=== PATIENT | female | born 1965 | race Caucasian/White ===

== ENCOUNTER → 2017-12-18 15:40 | Outpatient (CLI) | payer MEDICARE, BC, SELFPAY ==
[2017-12-18 18:16] LABS: Absolute Lymphocyte Count 2.47 X10^3/ul (0.83-4.51); Absolute Neutrophil Count 4.8 X10^3/uL (2.0-7.7); Basophil# 0.02 X10^3/uL; Basophil% 0.2 % (0-1); Eosinophil# 0.16 X10^3/uL; Hematocrit 36.3 % (37-47); Hemoglobin 11.8 g/dl (12.0-15.0); Lymphocyte # 2.47 X10^3/ul (4.0); Lymphocyte % 30.7 % (19-41); Mean Corp Hgb Conc 32.5 g/gl (32-36); Mean Corpuscular Hgb 29.1 pg (27.0-32.0); Mean Corpuscular Volume 89.4 fL (81-99); Mean Platelet Vol. 10.1 fl (6.2-12.0); Monocyte# 0.63 X10^3/uL; Monocyte% 7.8 % (0-10); Neutrophil # 4.76 X10^3/uL (2.7-7.7); Neutrophil % 59.2 % (47-70); Platelet Count 267 K/mm3 (150-450); RBC Distribution Width CV 12.6 % (11.6-14.6); RBC Distribution Width SD 40.6 fl (35.1-43.9); Red Blood Count 4.06 M/mm3 (4.2-5.4); White Blood Count 8.1 K/mm3 (4.4-11.0)
[2017-12-18 18:18] LABS: POSITIVE COUNT NO; POSITIVE DIFFERENTIAL NO; POSITIVE MORPHOLOGY NO
[2017-12-18 18:26] LABS: ALB/GLOB Ratio 0.9 RATIO (0.9-2.4); AST(SGOT) 11 U/L (15-37); Alanine Aminotransfer ALT/SGPT 20 U/L (13-56); Albumin, Serum 3.6 g/dL (3.2-5.0); Alkaline Phosphatase 97 U/L (45-117); Anion Gap 7 (5-15); BUN 12 mg/dL (7-18); BUN/Creat Ratio 14.9 RATIO (10-20); Chloride 101 mmol/L (98-107); EST Glomerular Filtration Rate 80 mL/min (>60); Est Glom Filt Rate - Afr Amer 96 mL/min (>60); Glucose 74 mg/dL (74-106); Potassium 4.1 mmol/L (3.5-5.1); Protein, Total 7.6 g/dL (6.4-8.2); Sodium Level 138 mmol/L (136-145)
== END ==
PROVIDERS: Family Provider Family Medicine; PCP Family Medicine; Visit Provider Internal Medicine Rheumatology
DX: M06.4 Inflammatory polyarthropathy (principal); M35.1 Other overlap syndromes; M79.7 Fibromyalgia; K58.9 Irritable bowel syndrome, unspecified; G62.9 Polyneuropathy, unspecified; G47.33 Obstructive sleep apnea (adult) (pediatric); F32.89 Other specified depressive episodes; F41.9 Anxiety disorder, unspecified; Z79.899 Other long term (current) drug therapy
CPT/HCPCS: 36415; 80053; 85025

== ENCOUNTER → 2018-02-05 11:55 | Outpatient (CLI) | payer MEDICARE, BC, SELFPAY ==
[2018-02-05 14:16] LABS: Absolute Lymphocyte Count 2.19 X10^3/ul (0.83-4.51); Absolute Neutrophil Count 3.9 X10^3/uL (2.0-7.7); Basophil# 0.01 X10^3/uL; Basophil% 0.1 % (0-1); Eosinophil# 0.18 X10^3/uL; Eosinophils% 2.7 % (0-5); Hematocrit 36.2 % (37-47); Lymphocyte # 2.19 X10^3/ul (4.0); Lymphocyte % 32.4 % (19-41); Mean Corp Hgb Conc 33.1 g/gl (32-36); Mean Corpuscular Hgb 29.8 pg (27.0-32.0); Mean Corpuscular Volume 89.8 fL (81-99); Monocyte# 0.43 X10^3/uL; Monocyte% 6.4 % (0-10); Neutrophil # 3.93 X10^3/uL (2.7-7.7); Neutrophil % 58.3 % (47-70); Platelet Count 315 K/mm3 (150-450); RBC Distribution Width CV 13.7 % (11.6-14.6); RBC Distribution Width SD 44.1 fl (35.1-43.9); Red Blood Count 4.03 M/mm3 (4.2-5.4); White Blood Count 6.8 K/mm3 (4.4-11.0)
[2018-02-05 14:19] LABS: POSITIVE COUNT NO; POSITIVE DIFFERENTIAL NO; POSITIVE MORPHOLOGY NO
[2018-02-05 14:25] LABS: ALB/GLOB Ratio 0.9 RATIO (0.9-2.4); AST(SGOT) 15 U/L (15-37); Alanine Aminotransfer ALT/SGPT 20 U/L (13-56); Albumin, Serum 3.5 g/dL (3.2-5.0); Alkaline Phosphatase 89 U/L (45-117); Anion Gap 8 (5-15); BUN 10 mg/dL (7-18); BUN/Creat Ratio 13.2 RATIO (10-20); Calcium,Total 8.7 mg/dL (8.5-10.1); Chloride 107 mmol/L (98-107); Creatinine, Serum 0.76 mg/dL (0.55-1.02); EST Glomerular Filtration Rate 85 mL/min (>60); Est Glom Filt Rate - Afr Amer 103 mL/min (>60); Globulin 3.7 g/dL (2.2-4.2); Glucose 105 mg/dL (74-106); Potassium 3.7 mmol/L (3.5-5.1); Protein, Total 7.2 g/dL (6.4-8.2); Sodium Level 141 mmol/L (136-145)
[2018-02-05 14:28] LABS: Vitamin D,25 Hydroxy 43.8 ng/mL (29.95-100.01)
== END ==
PROVIDERS: Family Provider Family Medicine; PCP Family Medicine; Visit Provider Internal Medicine Rheumatology
DX: M06.4 Inflammatory polyarthropathy (principal); M35.1 Other overlap syndromes; M79.7 Fibromyalgia; E55.9 Vitamin D deficiency, unspecified; K58.9 Irritable bowel syndrome, unspecified; G62.9 Polyneuropathy, unspecified; G47.33 Obstructive sleep apnea (adult) (pediatric); F32.89 Other specified depressive episodes; F41.9 Anxiety disorder, unspecified; Z79.899 Other long term (current) drug therapy
CPT/HCPCS: 36415; 80053; 82306; 85025

== ENCOUNTER → 2018-05-01 11:11 | Outpatient (CLI) | payer MEDICARE, BC, SELFPAY ==
[2018-05-01 12:25] LABS: Absolute Lymphocyte Count 1.83 X10^3/ul (0.83-4.51); Absolute Neutrophil Count 4.6 X10^3/uL (2.0-7.7); Basophil# 0.02 X10^3/uL; Basophil% 0.3 % (0-1); Eosinophil# 0.13 X10^3/uL; Eosinophils% 1.9 % (0-5); Hematocrit 36.6 % (37-47); Hemoglobin 11.9 g/dl (12.0-15.0); Lymphocyte # 1.83 X10^3/ul (4.0); Lymphocyte % 26.1 % (19-41); Mean Corp Hgb Conc 32.5 g/gl (32-36); Mean Corpuscular Hgb 29.8 pg (27.0-32.0); Mean Corpuscular Volume 91.7 fL (81-99); Mean Platelet Vol. 9.5 fl (6.2-12.0); Monocyte# 0.37 X10^3/uL; Monocyte% 5.3 % (0-10); Neutrophil # 4.64 X10^3/uL (2.7-7.7); Neutrophil % 66.3 % (47-70); Platelet Count 274 K/mm3 (150-450); RBC Distribution Width CV 13.1 % (11.6-14.6); Red Blood Count 3.99 M/mm3 (4.2-5.4)
[2018-05-01 12:26] LABS: POSITIVE COUNT NO; POSITIVE DIFFERENTIAL NO; POSITIVE MORPHOLOGY NO
[2018-05-01 12:41] LABS: ALB/GLOB Ratio 0.9 RATIO (0.9-2.4); AST(SGOT) 13 U/L (15-37); Alanine Aminotransfer ALT/SGPT 20 U/L (13-56); Albumin, Serum 3.5 g/dL (3.2-5.0); Alkaline Phosphatase 87 U/L (45-117); Anion Gap 5 (5-15); BUN 10 mg/dL (7-18); BUN/Creat Ratio 12.7 RATIO (10-20); Calcium,Total 8.9 mg/dL (8.5-10.1); Chloride 107 mmol/L (98-107); Creatinine, Serum 0.79 mg/dL (0.55-1.02); EST Glomerular Filtration Rate 82 mL/min (>60); Est Glom Filt Rate - Afr Amer 99 mL/min (>60); Globulin 3.7 g/dL (2.2-4.2); Glucose 120 mg/dL (74-106); Potassium 3.8 mmol/L (3.5-5.1); Protein, Total 7.2 g/dL (6.4-8.2); Sodium Level 138 mmol/L (136-145)
== END ==
PROVIDERS: Family Provider Family Medicine; PCP Family Medicine; Visit Provider Internal Medicine Rheumatology
DX: M06.4 Inflammatory polyarthropathy (principal); M35.1 Other overlap syndromes; M79.7 Fibromyalgia; K58.9 Irritable bowel syndrome, unspecified; G62.9 Polyneuropathy, unspecified; G47.33 Obstructive sleep apnea (adult) (pediatric); F41.9 Anxiety disorder, unspecified; F32.89 Other specified depressive episodes; Z79.899 Other long term (current) drug therapy
CPT/HCPCS: 36415; 80053; 85025

== ENCOUNTER → 2018-07-23 12:47 | Outpatient (CLI) | payer MEDICARE, BC, SELFPAY ==
[2018-07-23 14:02] LABS: Absolute Lymphocyte Count 2.64 X10^3/ul (0.83-4.51); Absolute Neutrophil Count 4.7 X10^3/uL (2.0-7.7); Basophil# 0.03 X10^3/uL; Basophil% 0.4 % (0-1); Eosinophil# 0.12 X10^3/uL; Eosinophils% 1.5 % (0-5); Hematocrit 35.9 % (37-47); Hemoglobin 11.6 g/dl (12.0-15.0); Lymphocyte # 2.64 X10^3/ul (4.0); Mean Corp Hgb Conc 32.3 g/gl (32-36); Mean Corpuscular Hgb 29.7 pg (27.0-32.0); Mean Corpuscular Volume 92.1 fL (81-99); Mean Platelet Vol. 9.6 fl (6.2-12.0); Monocyte# 0.47 X10^3/uL; Monocyte% 5.9 % (0-10); Neutrophil # 4.73 X10^3/uL (2.7-7.7); Neutrophil % 59.1 % (47-70); Platelet Count 265 K/mm3 (150-450); RBC Distribution Width CV 12.9 % (11.6-14.6); RBC Distribution Width SD 42.7 fl (35.1-43.9)
[2018-07-23 14:07] LABS: POSITIVE COUNT NO; POSITIVE DIFFERENTIAL NO; POSITIVE MORPHOLOGY NO
[2018-07-23 14:21] LABS: ALB/GLOB Ratio 0.9 RATIO (0.9-2.4); AST(SGOT) 10 U/L (15-37); Alanine Aminotransfer ALT/SGPT 18 U/L (13-56); Albumin, Serum 3.5 g/dL (3.2-5.0); Alkaline Phosphatase 91 U/L (45-117); Anion Gap 9 (5-15); BUN 12 mg/dL (7-18); BUN/Creat Ratio 15.7 RATIO (10-20); Calcium,Total 8.9 mg/dL (8.5-10.1); Chloride 104 mmol/L (98-107); Creatinine, Serum 0.76 mg/dL (0.55-1.02); EST Glomerular Filtration Rate 84 mL/min (>60); Est Glom Filt Rate - Afr Amer 102 mL/min (>60); Globulin 3.7 g/dL (2.2-4.2); Glucose 100 mg/dL (74-106); Potassium 3.8 mmol/L (3.5-5.1); Protein, Total 7.2 g/dL (6.4-8.2); Sodium Level 139 mmol/L (136-145)
== END ==
PROVIDERS: Family Provider Family Medicine; PCP Family Medicine; Referring Provider Internal Medicine Rheumatology; Visit Provider Internal Medicine Rheumatology
DX: M06.4 Inflammatory polyarthropathy (principal); M35.1 Other overlap syndromes; M79.7 Fibromyalgia; Z79.899 Other long term (current) drug therapy
CPT/HCPCS: 36415; 80053; 85025

== ENCOUNTER → 2019-11-06 | Outpatient (CLI) | payer MEDICARE, SELFPAY ==
[2019-11-06 18:11] LABS: Pathologist Comment May follow
[2019-11-06 19:22] LABS: Synovial Fld Mononuclear WBC % 90.8 %; Synovial Fld Polynuclear WBC # 0.026 10^3/uL; Synovial Fld Polynuclear WBC % 9.2 %
[2019-11-06 21:07] LABS: AUTO B FLUID DILUENT BKGD CT WBC <0.1 RBC <0.01 (W<.1,R<.01); Appearance /Synovial Fluid Sl hazy (CLEAR); Color / Synovial Fluid Yellow (Pale Yellow); Lymph 19 %; Monocyte /Synovial Fluid 24 %; Neutrophil 14 % (0-25); Other Cell /Synovial Fluid 43 %; Source / Synovial Fluid RIGHT KNEE; Source- Body Fluid SYNOVIAL
[2019-11-06 21:08] LABS: Body Fluid QC Type(s) BF2Q,BF3Q; RBC /Synovial Fluid 30 /mm3 (0); Synovial Fld Mononuclear WBC # 0.258 10^3/ul
[2019-11-07 13:04] LABS: Pathologist Review Reviewed
== END | disposition home or self-care (01) ==
PROVIDERS: PCP Family Medicine; Referring Provider Internal Medicine Rheumatology; Visit Provider Internal Medicine Rheumatology
DX: M06.4 Inflammatory polyarthropathy (principal); Z79.899 Other long term (current) drug therapy; M35.1 Other overlap syndromes; M79.7 Fibromyalgia; M17.0 Bilateral primary osteoarthritis of knee; K58.9 Irritable bowel syndrome, unspecified; F41.9 Anxiety disorder, unspecified; F32.89 Other specified depressive episodes; G47.33 Obstructive sleep apnea (adult) (pediatric); G62.9 Polyneuropathy, unspecified
CPT/HCPCS: 87070; 87075; 87205; 89050; 89051; 89060

== ENCOUNTER → 2019-12-06 13:22 | Outpatient (CLI) | payer MEDICARE, BC, SELFPAY ==
[2019-12-06 15:25] LABS: Color, Urine Yellow (Yellow); Glucose, Dipstick Normal (Normal); Ketone-Dipstick Negative (Negative); Leukocyte Esterase-Dipstick Negative /ul (Negative); Nitrite-Dipstick Negative (Negative); Occult Blood-Urine Negative /ul (Negative); Protein-Dipstick Negative (Negative); Urine Bilirubin Dipstick Negative (Negative); Urine Clarity Clear (Clear); Urine Urobilinogen Normal (Normal)
[2019-12-06 15:30] LABS: Absolute Lymphocyte Count 2.97 X10^3/uL (0.83-4.51); Absolute Neutrophil Count 5.1 X10^3/uL (2.0-7.7); Basophil# 0.03 X10^3/uL; Basophil% 0.3 % (0-1); Eosinophil# 0.17 X10^3/uL; Eosinophils% 1.9 % (0-5); Hematocrit 39.9 % (37-47); Hemoglobin 12.5 g/dL (12.0-15.0); Lymphocyte # 2.97 X10^3/ul (4.0); Lymphocyte % 34.1 % (19-41); Mean Corp Hgb Conc 31.3 g/dL (32-36); Mean Corpuscular Volume 89.5 fL (81-99); Mean Platelet Vol. 9.4 fl (6.2-12.0); Monocyte# 0.46 X10^3/uL; Monocyte% 5.3 % (0-10); NRBC Flagged by Analyzer 0 % (0-5); Neutrophil # 5.07 X10^3/uL (2.7-7.7); Neutrophil % 58.2 % (47-70); Platelet Count 324 K/mm3 (150-450); RBC Distribution Width SD 42.8 fl (35.1-43.9); Red Blood Count 4.46 M/mm3 (4.2-5.4); White Blood Count 8.7 K/mm3 (4.4-11.0)
[2019-12-06 15:41] LABS: Erythrocyte Sedimentation Rate 14 mm/hr (0-30)
[2019-12-06 15:44] LABS: Protein:Creat Ratio 111 mg/g CRE (0-200)
[2019-12-06 16:01] LABS: AST(SGOT) 13 U/L (15-37); Alanine Aminotransfer ALT/SGPT 20 U/L (13-56); Albumin, Serum 3.8 g/dL (3.2-5.0); Alkaline Phosphatase 109 U/L (45-117); Anion Gap 10 (5-15); BUN 7 mg/dL (7-18); BUN/Creat Ratio 9.5 RATIO (10-20); CRP 7.37 mg/L (0.0-3.0); Calcium,Total 9.2 mg/dL (8.5-10.1); Chloride 101 mmol/L (98-107); Creatinine, Serum 0.74 mg/dL (0.55-1.02); EST Glomerular Filtration Rate 87 mL/min (>60); Est Glom Filt Rate - Afr Amer 106 mL/min (>60); Glucose 98 mg/dL (74-106); Potassium 3.6 mmol/L (3.5-5.1); Protein, Total 7.8 g/dL (6.4-8.2); Sodium Level 139 mmol/L (136-145)
[2019-12-09 13:25] LABS: Complement C3 158 mg/dL (82-167)
== END ==
PROVIDERS: PCP Family Medicine; Referring Provider Internal Medicine Rheumatology; Visit Provider Internal Medicine Rheumatology
DX: M06.4 Inflammatory polyarthropathy (principal); M35.1 Other overlap syndromes; M79.7 Fibromyalgia; M17.0 Bilateral primary osteoarthritis of knee; K58.9 Irritable bowel syndrome, unspecified; F41.9 Anxiety disorder, unspecified; F32.89 Other specified depressive episodes; G47.33 Obstructive sleep apnea (adult) (pediatric); G62.9 Polyneuropathy, unspecified; Z79.899 Other long term (current) drug therapy
CPT/HCPCS: 36415; 80053; 81002; 82570; 84156; 85025; 85652; 86140; 86160

== ENCOUNTER → 2020-04-06 15:02 | Outpatient (CLI) | payer MEDICARE, BC, SELFPAY ==
[2020-04-06 18:00] LABS: ALB/GLOB Ratio 0.9 RATIO (0.9-2.4); AST(SGOT) 15 U/L (15-37); Alanine Aminotransfer ALT/SGPT 23 U/L (13-56); Albumin, Serum 3.5 g/dL (3.2-5.0); Alkaline Phosphatase 101 U/L (45-117); Anion Gap 6 (5-15); BUN 9 mg/dL (7-18); BUN/Creat Ratio 13.2 RATIO (10-20); Calcium,Total 8.8 mg/dL (8.5-10.1); Chloride 104 mmol/L (98-107); Creatinine, Serum 0.68 mg/dL (0.55-1.02); EST Glomerular Filtration Rate 96 mL/min (>60); Est Glom Filt Rate - Afr Amer 116 mL/min (>60); Glucose 100 mg/dL (74-106); Potassium 3.7 mmol/L (3.5-5.1); Protein, Total 7.5 g/dL (6.4-8.2); Sodium Level 138 mmol/L (136-145)
[2020-04-06 18:14] LABS: Absolute Lymphocyte Count 2.69 X10^3/uL (0.83-4.51); Absolute Neutrophil Count 5.3 X10^3/uL (2.0-7.7); Basophil# 0.05 X10^3/uL; Basophil% 0.6 % (0-1); Eosinophil# 0.37 X10^3/uL; Eosinophils% 4.1 % (0-5); Hematocrit 38.7 % (37-47); Hemoglobin 12.3 g/dL (12.0-15.0); Lymphocyte # 2.69 X10^3/ul (4.0); Lymphocyte % 29.7 % (19-41); Mean Corp Hgb Conc 31.8 g/dL (32-36); Mean Corpuscular Hgb 28.8 pg (27.0-32.0); Mean Corpuscular Volume 90.6 fL (81-99); Monocyte# 0.63 X10^3/uL; NRBC Flagged by Analyzer 0 % (0-5); Neutrophil # 5.28 X10^3/uL (2.7-7.7); Neutrophil % 58.2 % (47-70); Platelet Count 332 K/mm3 (150-450); RBC Distribution Width CV 12.5 % (11.6-14.6); RBC Distribution Width SD 41.7 fl (35.1-43.9); Red Blood Count 4.27 M/mm3 (4.2-5.4); White Blood Count 9.1 K/mm3 (4.4-11.0)
== END ==
PROVIDERS: PCP Family Medicine; Referring Provider Internal Medicine Rheumatology; Visit Provider Internal Medicine Rheumatology
DX: M06.4 Inflammatory polyarthropathy (principal); M35.1 Other overlap syndromes; M79.7 Fibromyalgia; M17.0 Bilateral primary osteoarthritis of knee; K58.9 Irritable bowel syndrome, unspecified; F41.9 Anxiety disorder, unspecified; F32.89 Other specified depressive episodes; G47.33 Obstructive sleep apnea (adult) (pediatric); G62.9 Polyneuropathy, unspecified
CPT/HCPCS: 36415; 80053; 85025

== ENCOUNTER 2020-04-29 13:00 | Outpatient (RCR) | payer MEDICARE, BC, SELFPAY ==
[2020-04-15 13:26] VITALS: BP 117/82; PULSE 96; RESP 16; TEMP 36.2; BMI 39.5
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
[2020-05-06 11:24] VITALS: BP 146/80; PULSE 104; RESP 16; TEMP 36.5; BMI 39.5
--- NOTE | 2020-05-06 14:11 | PCM.WC.PN ---
(1) Lupus (systemic lupus erythematosus) Status: Acute Code(s): M32.9 - Systemic lupus erythematosus, unspecified (2) Ulcer of left foot with fat layer exposed Status: Acute Code(s): L97.522 - Non-pressure chronic ulcer of other part of left foot with fat layer exposed (3) Calcaneal gait Status: Acute Code(s): R26.89 - Other abnormalities of gait and mobility (4) Delayed wound healing Status: Acute Code(s): T14.8XXD - Other injury of unspecified body region, subsequent encounter (5) Malnutrition Status: Acute Code(s): E46 - Unspecified protein-calorie malnutrition (6) Pressure ulcer of unspecified heel, stage 2 Status: Chronic Qualifiers: Laterality: left Qualified Code(s): L89.622 - Pressure ulcer of left heel, stage 2 Code(s): L89.602 - Pressure ulcer of unspecified heel, stage 2 Type of Wound Date of Service: 05/06/20 Chief Complaint: Left heel ulcer. Left third toe ulcer History of Wound: This pleasant 54-year-old female with significant past medical history of lupus, history of panic attack, depression, history of delayed healing, hyperlipidemia, irritable bowel syndrome, memory loss, restless leg syndrome, and obstructive sleep apnea presents for consultation at the wound healing center for a left chronic heel ulcer and third toe ulcer as well that is newer in nature. The onset of the heel ulcer was late November 2019. The onset of her left third toe ulcer was early March 2020. She denies odor, redness, streaking or known infection, fever, chill, nausea, vomiting. She missed last week due to a new cough. She was seen by her primary care physician who confirmed this is likely allergy related like she has been getting every year for many years. She was ready to proceed forward with application of advanced skin substitute today, epi-fix. She tries to keep pressure off of her heel by wearing a boot but primarily uses a knee roller. Her bedroom is upstairs and she needs to acsend and descend 10 stairs. Progress of Wound: Healed toe ulcer. Stable heel ulcer - Physical Exam Vital Signs Temp Pulse Resp BP 97.7 F L 104 H 16 146/80 H 05/06/20 11:24 05/06/20 11:24 05/06/20 11:24 05/06/20 11:24 General: Alert, Oriented x3, Cooperative, No apparent distress HEENT: Atraumatic Extremities: No cyanosis, Capillary Refill Less than 3 Seconds, No Calf Tenderness, Diminished Peripheral Pulses, Edema - Mild Skin: Ulcer/ Wound - No purulence, erythema, streaking, odor, infection. Her skin is atrophic and hairless Wound Measurements and Assessment WC - Nurse 1 - General Ulcer Measurement Start: 04/15/20 13:17 Freq: Status: Active Protocol: Activity Type Activity Date Activity User E-Sign Co-Sign Detail Recorded Client Recorded Date Recorded By Document 05/06/20 11:24 [facility] [id number] 05/06/20 11:29 [facility] 05/06/20 11:24 Wound Center Nurse 1 [Ulcer Assessment] #2 Left 3rd Toe- Plantar -Combined with other wound No -Current Size (cm) - Length 0.1 -Current Size (cm) - Width 0.1 -Current Size (cm) - Depth 0.1 -Total Square Cm 0.01 -Photo Taken No -Epithelialization Large 67-100% -Slough/Fibrin Yes -Necrosis Amt Small (1-33%) -Necrotic Tissue Type Eschar -Texture (Cecelia-wound Skin Appearance) Assessed -Moisture (Cecelia-wound Skin Appearance Assessed ) -Color (Cecelia-wound Skin Appearance) Assessed -Temperature (Cecelia-wound Skin No Abnormality Appearance) (Pt Warm) -Tenderness on Palpation (Cecelia-wound No Skin Appearance) -Ulcer Cleansing Rinsed/ Irrigated with Saline -Foul Odor after Cleansing No -Anesthetic Used 5% Lidocaine Gel #1 Left Heel- Plantar -Combined with other wound No -Current Size (cm) - Length 1.2 -Current Size (cm) - Width 1.4 -Current Size (cm) - Depth 0.4 -Total Square Cm 1.68 -Photo Taken No -Epithelialization None Present -Tunneling No -Undermining/Tunneling No -Circular Undermining No -Exudate Amt Small -Exudate Type Serosanguineous -Wound Margin Thickened -Granulation Amt Small (1-33%) -Granulation Quality Red -Slough/Fibrin Yes -Necrosis Amt Large (67-100%) -Necrotic Tissue Type Adherent Slough -Texture (Cecelia-wound Skin Appearance) Assessed, Scarring -Moisture (Cecelia-wound Skin Appearance Assessed ) -Color (Cecelia-wound Skin Appearance) Assessed -Temperature (Cecelia-wound Skin No Abnormality Appearance) (Pt Warm) -Tenderness on Palpation (Cecelia-wound Yes Skin Appearance) -Ulcer Cleansing Rinsed/ Irrigated with Saline -Foul Odor after Cleansing No -Anesthetic Used 5% Lidocaine Gel WC - Nurse 2 - General Ulcer CM Notes Start: 04/15/20 13:17 Freq: Status: Active Protocol: Activity Type Activity Date Activity User E-Sign Co-Sign Detail Recorded Client Recorded Date Recorded By Document 05/06/20 12:11 STEPHANIE [id number] 05/06/20 12:16 STEPHANIE 05/06/20 12:11 Wound Center Nurse 2 [Procedure/Treatment] #2 Left 3rd Toe- Plantar -Correct Patient No -Correct Side, Site, Position No -Correct Procedure No -Procedure Performed No -Post Debridement Size (cm) - Length 0 -Post Debridement Size (cm) - Width 0 -Post Debridement Size (cm) - Depth 0 -Total Square (cm) 0 -Wound/Ulcer Outcome Healed- Epithelialized #1 Left Heel- Plantar -Time 12:14 -Correct Patient Yes -Correct Side, Site, Position Yes -Correct Procedure Yes -Procedure Performed Yes -Type of Procedure Debridement -Clinical Debridement Subcutaneous -Post Debridement Size (cm) - Length 1.2 -Post Debridement Size (cm) - Width 1.5 -Post Debridement Size (cm) - Depth 0.4 -Total Square (cm) 1.80 -Wound/Ulcer Outcome Not Healed -Ulcer Cleansing Rinsed/ Irrigated with Saline -Foul Odor after Cleansing No -Bioengineered Tissue Yes -Type of bioengineered Tissue EPIFIX -Expiration Date 01/07/25 -Product Lot Number [id number] -Percent Used 100 -Saline Lot Number [id number] -Bleeding Controlled with Pressure -Offloading Yes -Type of Offloading Knee Walker -Treatment Response Procedure Tolerated Well [See Physician Procedure note for Specifics] Pain Scale: 0-10 Numeric [Pain] -Is Patient Pain Free? Yes Musculoskeletal: No Tenderness to Palpation of Joints or Extremities, Muscle Wasting Neurological: Sensory exam intact to light touch and pain Psych/Mental Status: Normal Affect, Appropriate Debridement Note Post-Debridement Measurements/Treatment WC - Nurse 2 - General Ulcer CM Notes Start: 04/15/20 13:17 Freq: Status: Active Protocol: Activity Type Activity Date Activity User E-Sign Co-Sign Detail Recorded Client Recorded Date Recorded By Document 04/15/20 14:41 [id number] 04/15/20 14:49 Document 05/06/20 12:11 [id number] 05/06/20 12:16 04/15/20 05/06/20 14:41 12:11 Wound Center Nurse 2 #2 Left 3rd Toe- Plantar -Time 14:41 -Correct Patient Yes No -Correct Side, Site, Position Yes No -Correct Procedure Yes No -Procedure Performed Yes No -Type of Procedure Debridement -Clinical Debridement Subcutaneous -Post Debridement Size (cm) - Length 0.7 0 -Post Debridement Size (cm) - Width 0.5 0 -Post Debridement Size (cm) - Depth 0.1 0 -Total Square (cm) 0.35 0 -Wound/Ulcer Outcome Not Healed Healed- Epithelialized -Ulcer Cleansing Rinsed/ Irrigated with Saline -Foul Odor after Cleansing No -Bioengineered Tissue No -Bleeding Controlled with Pressure -Offloading No -Treatment Response Procedure Tolerated Well #1 Left Heel- Plantar -Time 14:41 12:14 -Correct Patient Yes Yes -Correct Side, Site, Position Yes Yes -Correct Procedure Yes Yes -Procedure Performed Yes Yes -Type of Procedure Debridement Debridement -Clinical Debridement Subcutaneous Subcutaneous -Post Debridement Size (cm) - Length 1.1 1.2 -Post Debridement Size (cm) - Width 1.6 1.5 -Post Debridement Size (cm) - Depth 0.3 0.4 -Total Square (cm) 1.76 1.80 -Wound/Ulcer Outcome Not Healed Not Healed -Ulcer Cleansing Rinsed/ Rinsed/ Irrigated with Irrigated with Saline Saline -Foul Odor after Cleansing No No -Bioengineered Tissue No Yes -Type of bioengineered Tissue EPIFIX -Expiration Date 01/07/25 -Product Lot Number [id number] -Percent Used 100 -Saline Lot Number [id number] -Bleeding Controlled with Pressure Pressure -Offloading No Yes -Type of Offloading Knee Walker -Treatment Response Procedure Procedure Tolerated Well Tolerated Well Pain Scale: 0-10 Numeric Is Patient Pain Free? Yes Yes Wound debrided: plantar heel Laterality: Left Type of Debridement: Excisional debridement Anesthesia Used: 5% Lidocaine Gel Depth: in the subcutaneous layer Percentage of wound debrided: 100 Instrument Used: #15 blade Tissue Removed: fibrous, devitalized subcutaneous, biofilm, slough Severity: Fat Layer Exposed Amount of bleeding with debridement: Mild Bleeding Controlled with: Pressure Patient tolerated procedure well Assessment/Plan Assessment: Left heel ulcer, chronic pressure with delayed healing. Left third toe ulcer, healed. Lupus. Lower extremity edema. Left calcaneus gait Plan: I reviewed and discussed her case including chart review and verbal discussion with Dr. Starr. Subcutaneous excisional debridement was performed as noted in the clinical panel. On chronic, epi-fix, was applied according standard protocol after verbal consent was obtained. Prior authorization was previously obtained. The indication, benefits, anticipated healing time application management were reviewed. A wound veil and Steri-Strips were additionally applied to secure this in place. She is advised to keep this clean, dry, and intact until follow-up next week. This is medically necessary for limb salvage. She was also advised she must keep 100% weight off of the site. I added an additional Plastizote offloading liner previously to her cam walker boot with an offloading pocket to take additional pressure off of the heel ulcer site. I also advised her to monitor to avoid strap placement in her boot rubbing on her new toe ulcer site. She was reassured no local signs of infection are noted. She was advised to maintain a good balance whole food diet with adequate protein and nutrients to optimize healing. A prescription for Yosvany was provided and she is advised on proper use. I offered her a prototype machine operator referral as well. She understands her systemic inflammatory disease of lupus may also be contributing to delayed healing. She will avoid antirheumatic medications at this time. We discussed conservative or surgical intervention. Performing a flap was discussed including with a bilobed rotational versus other rotational flap. My concern with this is that she has a calcaneus gait and she is prone to further breakdown even with that surgical intervention. I offered her a surgery to reapproximate and shorten her Achilles tendon. It is noted she had prior surgery in this area with an injury in the early postoperative setting. She will consider this and is not electing to proceed forward with this at this time. I answered all of her questions. She was advised to return to the wound healing center in 1 week. To call sooner if she has any questions or concerns or any evidence of infection development.
== END 2020-05-08 23:59 ==
LOC: WC 13:00
PROVIDERS: PCP Family Medicine; Referring Provider Podiatrist Foot & Ankle Surgery; Visit Provider Podiatrist
DX: L97.522 Non-pressure chronic ulcer of other part of left foot with fat layer exposed (principal); M32.9 Systemic lupus erythematosus, unspecified; G25.81 Restless legs syndrome; G47.33 Obstructive sleep apnea (adult) (pediatric); K58.9 Irritable bowel syndrome, unspecified; E78.5 Hyperlipidemia, unspecified; Z79.899 Other long term (current) drug therapy; F32.9 Major depressive disorder, single episode, unspecified; R60.0 Localized edema
CPT/HCPCS: 11042; 15275; 99203; Q4186; G0463

== ENCOUNTER 2020-06-03 09:30 | Outpatient (RCR) | payer MEDICARE, BC, SELFPAY ==
[2020-05-09 00:15] VITALS: BP 146/80; PULSE 104; RESP 16; TEMP 36.5
[2020-05-13 10:45] VITALS: BP 136/78; PULSE 101; RESP 18; TEMP 36.6; BMI 39.5
--- NOTE | 2020-05-13 12:10 | PN.PCM_ITS ---
(1) Cellulitis of left lower limb Status: Acute Code(s): L03.116 - Cellulitis of left lower limb (2) Lupus (systemic lupus erythematosus) Status: Acute Code(s): M32.9 - Systemic lupus erythematosus, unspecified (3) Ulcer of left foot with fat layer exposed Status: Acute Code(s): L97.522 - Non-pressure chronic ulcer of other part of left foot with fat layer exposed (4) Calcaneal gait Status: Acute Code(s): R26.89 - Other abnormalities of gait and mobility (5) Delayed wound healing Status: Acute Code(s): T14.8XXD - Other injury of unspecified body region, subsequent encounter (6) Malnutrition Status: Acute Code(s): E46 - Unspecified protein-calorie malnutrition (7) Pressure ulcer of unspecified heel, stage 2 Status: Chronic Qualifiers: Laterality: left Qualified Code(s): L89.622 - Pressure ulcer of left heel, stage 2 Code(s): L89.602 - Pressure ulcer of unspecified heel, stage 2 Type of Wound Date of Service: 05/13/20 Chief Complaint: Left heel ulcer History of Wound: This pleasant 54-year-old female with significant past medical history of lupus, history of panic attack, depression, history of delayed healing, hyperlipidemia, irritable bowel syndrome, memory loss, restless leg syndrome, and obstructive sleep apnea is here for follow-up of left heel ulcer. She had kept her advance wound healing product, epi-fix clean and intact as adv ised last week. She reports increased drainage and her heel is warm and red. She denies fever, chill, nausea, vomiting,. Her left foot is more painful. Progress of Wound: Healed toe ulcer. Stable heel ulcer - Physical Exam Vital Signs Temp Pulse Resp BP 97.8 F 101 H 18 136/78 H 05/13/20 10:45 05/13/20 10:45 05/13/20 10:45 05/13/20 10:45 General: Alert, Oriented x3, Cooperative, No apparent distress Extremities: No cyanosis, Capillary Refill Less than 3 Seconds, No Calf Tenderness, Diminished Peripheral Pulses, Edema Skin: Ulcer/ Wound - No purulence or odor or necrosis. There is increased warmth around the ulcer site and some diffuse erythema. No bogginess or fluctuance on palpation. No probe to deep structures. Wound Measurements and Assessment - Nurse 1 - General Ulcer Measurement Start: 05/13/20 10:45 Freq: Status: Active Protocol: Activity Type Activity Date Activity User E-Sign Co-Sign Detail Recorded Client Recorded Date Recorded By Document 05/13/20 10:45 PL [id number] 05/13/20 10:51 PL 05/13/20 10:45 Wound Center Nurse 1 [Ulcer Assessment] #2 Left 3rd Toe- Plantar -Combined with other wound No -Current Size (cm) - Length 0 -Current Size (cm) - Width 0 -Current Size (cm) - Depth 0 -Total Square Cm 0 -Photo Taken No #1 Left Heel- Plantar -Combined with other wound No -Current Size (cm) - Length 1 -Current Size (cm) - Width 1.5 -Current Size (cm) - Depth 0.4 -Total Square Cm 1.5 -Photo Taken No -Epithelialization None Present -Tunneling No -Undermining/Tunneling No -Circular Undermining No -Exudate Amt Medium -Exudate Type Serosanguineous -Wound Margin Thickened & Rolled Under -Granulation Amt Large (67-100%) -Granulation Quality [place] -Slough/Fibrin Yes -Necrosis Amt Small (1-33%) -Necrotic Tissue Type Adherent Slough -Texture (Cecelia-wound Skin Appearance) Callus -Moisture (Cecelia-wound Skin Appearance No Abnormality ) -Temperature (Cecelia-wound Skin No Abnormality Appearance) (Pt Warm) -Ulcer Cleansing Rinsed/ Irrigated with Saline -Foul Odor after Cleansing No -Anesthetic Used 4% Lidocaine Solution - Nurse 2 - General Ulcer CM Notes Start: 05/13/20 10:45 Freq: Status: Active Protocol: Activity Type Activity Date Activity User E-Sign Co-Sign Detail Recorded Client Recorded Date Recorded By Document 05/13/20 11:07 STEPHANIE [id number] 05/13/20 11:09 STEPHANIE 05/13/20 11:07 Wound Center Nurse 2 [Procedure/Treatment] #2 Left 3rd Toe- Plantar -Time 11:07 -Correct Patient No -Correct Side, Site, Position No -Correct Procedure No -Procedure Performed No -Post Debridement Size (cm) - Length 0 -Post Debridement Size (cm) - Width 0 -Post Debridement Size (cm) - Depth 0 -Total Square (cm) 0 -Wound/Ulcer Outcome Healed- Epithelialized -Ulcer Cleansing Rinsed/ Irrigated with Saline -Foul Odor after Cleansing No -Bioengineered Tissue No -Bleeding Controlled with Pressure -Offloading Yes -Type of Offloading Knee Walker -Treatment Response Procedure Tolerated Well #1 Left Heel- Plantar -Time 11:08 -Correct Patient Yes -Correct Side, Site, Position Yes -Correct Procedure Yes -Procedure Performed Yes -Type of Procedure Debridement -Clinical Debridement Subcutaneous -Post Debridement Size (cm) - Length 1.6 -Post Debridement Size (cm) - Width 1.2 -Post Debridement Size (cm) - Depth 0.5 -Total Square (cm) 1.92 -Wound/Ulcer Outcome Not Healed -Ulcer Cleansing Rinsed/ Irrigated with Saline -Foul Odor after Cleansing No -Bioengineered Tissue No -Bleeding Controlled with Pressure -Offloading Yes -Type of Offloading Surgical Shoe -Treatment Response Procedure Tolerated Well [See Physician Procedure note for Specifics] Pain Scale: 0-10 Numeric [Pain] -Is Patient Pain Free? Yes Musculoskeletal: No Tenderness to Palpation of Joints or Extremities, Muscle Wasting Neurological: Sensory exam intact to light touch and pain Psych/Mental Status: Normal Affect, Appropriate Debridement Note Post-Debridement Measurements/Treatment WC - Nurse 2 - General Ulcer CM Notes Start: 05/13/20 10:45 Freq: Status: Active Protocol: Activity Type Activity Date Activity User E-Sign Co-Sign Detail Recorded Client Recorded Date Recorded By Document 05/13/20 11:07 STEPHANIE [id number] 05/13/20 11:09 STEPHANIE 05/13/20 11:07 Wound Center Nurse 2 #2 Left 3rd Toe- Plantar -Time 11:07 -Correct Patient No -Correct Side, Site, Position No -Correct Procedure No -Procedure Performed No -Post Debridement Size (cm) - Length 0 -Post Debridement Size (cm) - Width 0 -Post Debridement Size (cm) - Depth 0 -Total Square (cm) 0 -Wound/Ulcer Outcome Healed- Epithelialized -Ulcer Cleansing Rinsed/ Irrigated with Saline -Foul Odor after Cleansing No -Bioengineered Tissue No -Bleeding Controlled with Pressure -Offloading Yes -Type of Offloading Knee Walker -Treatment Response Procedure Tolerated Well #1 Left Heel- Plantar -Time 11:08 -Correct Patient Yes -Correct Side, Site, Position Yes -Correct Procedure Yes -Procedure Performed Yes -Type of Procedure Debridement -Clinical Debridement Subcutaneous -Post Debridement Size (cm) - Length 1.6 -Post Debridement Size (cm) - Width 1.2 -Post Debridement Size (cm) - Depth 0.5 -Total Square (cm) 1.92 -Wound/Ulcer Outcome Not Healed -Ulcer Cleansing Rinsed/ Irrigated with Saline -Foul Odor after Cleansing No -Bioengineered Tissue No -Bleeding Controlled with Pressure -Offloading Yes -Type of Offloading Surgical Shoe -Treatment Response Procedure Tolerated Well Pain Scale: 0-10 Numeric Is Patient Pain Free? Yes Wound debrided: plantar heel Laterality: Left Type of Debridement: Excisional debridement Anesthesia Used: 5% Lidocaine Gel Depth: in the subcutaneous layer Percentage of wound debrided: 100 Instrument Used: #15 blade Tissue Removed: fibrous, devitalized subcutaneous, biofilm, slough Severity: Fat Layer Exposed Amount of bleeding with debridement: Mild Bleeding Controlled with: Pressure Patient tolerated procedure well Assessment/Plan Assessment: Left heel ulcer, chronic pressure with delayed healing. Left third toe ulcer, healed. Lupus. Lower extremity edema. Left calcaneus gait Plan: I reviewed and discussed her case. Subcutaneous excisional debridement was performed as noted in the clinical panel. She has some local signs of infection and I do not recommend application of advanced wound healing product, epi-fix today. Change dressing with Aquacel Ag. A culture was obtained. She was started on oral antibiotic Augmentin 875 mg twice daily. I will follow her culture results and will update if needed. I added an additional Plastizote offloading liner previously to her cam walker boot with an offloading pocket to take additional pressure off of the heel ulcer site. I also advised her to monitor to avoid strap placement in her boot rubbing on her new toe ulcer site. She was reassured no local signs of infection are noted. She was advised to maintain a good balance whole food diet with adequate protein and nutrients to optimize healing. A prescription for Yosvany was provided and she is advised on proper use. I offered her a hazmat tanker driver referral as well. She understands her systemic inflammatory disease of lupus may also be contributing to delayed healing. She will avoid antirheumatic medications at this time. We discussed conservative or surgical intervention. Performing a flap was discussed including with a bilobed rotational versus other rotational flap. My concern with this is that she has a calcaneus gait and she is prone to further breakdown even with that surgical intervention. I offered her a surgery to reapproximate and shorten her Achilles tendon. It is noted she had prior surgery in this area with an injury in the early postoperative setting. She will consider this and is not electing to proceed forward with this at this time. I answered all of her questions. She was advised to return to the wound healing center in 1 week. To call sooner if she has any questions or concerns or any evidence of infection development.
[2020-05-13 17:03] LABS: M R Staph aureus DNA By PCR POSITIVE (Negative); Probe Check PASS; Staph aureus DNA By PCR POSITIVE (Negative)
[2020-05-20 10:33] VITALS: BP 128/77; PULSE 98; RESP 18; TEMP 36.2; BMI 39.5
--- NOTE | 2020-05-20 21:52 | PCM.WC.PN ---
(1) Cellulitis of left lower limb Status: Acute Current Visit: Yes Code(s): L03.116 - Cellulitis of left lower limb (2) Lupus (systemic lupus erythematosus) Status: Acute Current Visit: Yes Code(s): M32.9 - Systemic lupus erythematosus, unspecified (3) Ulcer of left foot with fat layer exposed Status: Acute Current Visit: Yes Code(s): L97.522 - Non-pressure chronic ulcer of other part of left foot with fat layer exposed (4) Calcaneal gait Status: Acute Current Visit: Yes Code(s): R26.89 - Other abnormalities of gait and mobility Comment: left (5) Delayed wound healing Status: Acute Current Visit: Yes Code(s): T14.8XXD - Other injury of unspecified body region, subsequent encounter (6) Malnutrition Status: Acute Current Visit: Yes Code(s): E46 - Unspecified protein-calorie malnutrition (7) Pressure ulcer of unspecified heel, stage 2 Status: Chronic Current Visit: Yes Qualifiers: Laterality: left Qualified Code(s): L89.622 - Pressure ulcer of left heel, stage 2 Code(s): L89.602 - Pressure ulcer of unspecified heel, stage 2 Type of Wound Date of Service: 05/20/20 Chief Complaint: Left heel ulcer History of Wound: This pleasant 54-year-old female with significant past medical history of lupus, history of panic attack, depression, history of delayed healing, hyperlipidemia, irritable bowel syndrome, memory loss, restless leg syndrome, and obstructive sleep apnea is here for follow-up of left heel ulcer. She had kept her advance wound healing product, epi-fix clean and intact as advised last week. She reports increased drainage and her heel is warm and red. She denies fever, chill, nausea, vomiting,. Her left foot is more painful. Progress of Wound: Healed toe ulcer. Stable heel ulcer - Physical Exam Vital Signs Temp Pulse Resp BP 97.1 F L 98 18 128/77 H 05/20/20 10:33 05/20/20 10:33 05/20/20 10:33 05/20/20 10:33 General: Alert, Oriented x3, Cooperative, No apparent distress HEENT: Atraumatic Extremities: No cyanosis, Capillary Refill Less than 3 Seconds, No Calf Tenderness - Negative Jerman and Jim sign bilateral. Compartments are soft to palpate bilateral lower extremities, Diminished Peripheral Pulses, Edema - Mild to moderate bilateral lower extremities, - - Ankle dorsiflexion right: About 3 degrees with knee extended and 10 degrees knee flexed. Ankle dorsiflexion left: About 7 degrees with knee extended and 15 degrees knee flexed Skin: Ulcer/ Wound - No purulence or odor. Erythema and edema have decreased but are still mildly present. Ulcer site. No probe to bone or deep tissue structure. The ulcer bed on the plantar calcaneus is granular with decreased fibrous tissue. There is no eschar or necrosis. No bogginess or fluctuance to palpation. The adjacent skin is atrophic. The toe ulcer site remains healed Wound Measurements and Assessment WC - Nurse 1 - General Ulcer Measurement Start: 05/13/20 10:45 Freq: Status: Active Protocol: Activity Type Activity Date Activity User E-Sign Co-Sign Detail Recorded Client Recorded Date Recorded By Document 05/20/20 10:33 PL [id number] 05/20/20 10:37 PL 05/20/20 10:33 Wound Center Nurse 1 [Ulcer Assessment] #1 Left Heel- Plantar -Combined with other wound No -Current Size (cm) - Length 1.1 -Current Size (cm) - Width 1.7 -Current Size (cm) - Depth 0.5 -Total Square Cm 1.87 -Photo Taken No -Epithelialization None Present -Tunneling No -Undermining/Tunneling No -Exudate Amt Medium -Exudate Type Serosanguineous -Granulation Amt Medium (34-66%) -Granulation Quality Pale,[place] -Slough/Fibrin Yes -Necrosis Amt Medium (34-66%) -Necrotic Tissue Type Adherent Slough -Texture (Cecelia-wound Skin Appearance) No Abnormality -Moisture (Cecelia-wound Skin Appearance No Abnormality ) -Color (Cecelia-wound Skin Appearance) No Abnormality -Temperature (Cecelia-wound Skin No Abnormality Appearance) (Pt Warm) -Tenderness on Palpation (Cecelia-wound No Skin Appearance) -Ulcer Cleansing Rinsed/ Irrigated with Saline -Foul Odor after Cleansing No -Anesthetic Used 4% Lidocaine Solution ARACELI - Nurse 2 - General Ulcer CM Notes Start: 05/13/20 10:45 Freq: Status: Active Protocol: Activity Type Activity Date Activity User E-Sign Co-Sign Detail Recorded Client Recorded Date Recorded By Document 05/20/20 10:49 [id number] 05/20/20 10:59 05/20/20 10:49 Wound Center Nurse 2 [Procedure/Treatment] -Time 10:49 -Correct Patient Yes -Correct Side, Site, Position Yes -Correct Procedure Yes -Procedure Performed Yes -Type of Procedure Debridement -Clinical Debridement Subcutaneous -Post Debridement Size (cm) - Length 1.5 -Post Debridement Size (cm) - Width 1.8 -Post Debridement Size (cm) - Depth 0.4 -Total Square (cm) 2.70 -Wound/Ulcer Outcome Not Healed -Ulcer Cleansing Rinsed/ Irrigated with Saline -Foul Odor after Cleansing No -Bioengineered Tissue No -Bleeding Controlled with Pressure -Offloading Yes -Type of Offloading Knee Walker -Treatment Response Procedure Tolerated Well [See Physician Procedure note for Specifics] Pain Scale: 0-10 Numeric [Pain] -Is Patient Pain Free? Yes Musculoskeletal: No Tenderness to Palpation of Joints or Extremities, Muscle Wasting, Tenderness - Tenderness with ulcer manipulation, - - Calcaneus gait pattern left lower extremity Neurological: Sensory exam intact to light touch and pain Psych/Mental Status: Normal Affect, Appropriate Debridement Note Post-Debridement Measurements/Treatment WC - Nurse 2 - General Ulcer CM Notes Start: 05/13/20 10:45 Freq: Status: Active Protocol: Activity Type Activity Date Activity User E-Sign Co-Sign Detail Recorded Client Recorded Date Recorded By Document 05/13/20 11:07 [id number] 05/13/20 11:09 Document 05/20/20 10:49 [id number] 05/20/20 10:59 05/13/20 05/20/20 11:07 10:49 Wound Center Nurse 2 #2 Left 3rd Toe- Plantar -Time 11:07 -Correct Patient No -Correct Side, Site, Position No -Correct Procedure No -Procedure Performed No -Post Debridement Size (cm) - Length 0 -Post Debridement Size (cm) - Width 0 -Post Debridement Size (cm) - Depth 0 -Total Square (cm) 0 -Wound/Ulcer Outcome Healed- Epithelialized -Ulcer Cleansing Rinsed/ Irrigated with Saline -Foul Odor after Cleansing No -Bioengineered Tissue No -Bleeding Controlled with Pressure -Offloading Yes -Type of Offloading Knee Walker -Treatment Response Procedure Tolerated Well #1 Left Heel- Plantar -Time 11:08 10:49 -Correct Patient Yes Yes -Correct Side, Site, Position Yes Yes -Correct Procedure Yes Yes -Procedure Performed Yes Yes -Type of Procedure Debridement Debridement -Clinical Debridement Subcutaneous Subcutaneous -Post Debridement Size (cm) - Length 1.6 1.5 -Post Debridement Size (cm) - Width 1.2 1.8 -Post Debridement Size (cm) - Depth 0.5 0.4 -Total Square (cm) 1.92 2.70 -Wound/Ulcer Outcome Not Healed Not Healed -Ulcer Cleansing Rinsed/ Rinsed/ Irrigated with Irrigated with Saline Saline -Foul Odor after Cleansing No No -Bioengineered Tissue No No -Bleeding Controlled with Pressure Pressure -Offloading Yes Yes -Type of Offloading Surgical Shoe Knee Walker -Treatment Response Procedure Procedure Tolerated Well Tolerated Well Pain Scale: 0-10 Numeric Is Patient Pain Free? Yes Yes Wound debrided: plantar heel Laterality: Left Type of Debridement: Excisional debridement Anesthesia Used: 5% Lidocaine Gel Depth: in the subcutaneous layer Percentage of wound debrided: 100 Instrument Used: #15 blade Tissue Removed: fibrous, devitalized subcutaneous, biofilm, slough Severity: Fat Layer Exposed Amount of bleeding with debridement: Mild Bleeding Controlled with: Pressure Patient tolerated procedure well Assessment/Plan Active Problems Lupus (systemic lupus erythematosus) (Acute) Ulcer of left foot with fat layer exposed (Acute) Calcaneal gait (Acute) left Delayed wound healing (Acute) Malnutrition (Acute) Pressure ulcer of unspecified heel, stage 2 (Chronic) Cellulitis of left lower limb (Acute) Assessment: Left heel ulcer, chronic pressure with delayed healing. Left third toe ulcer, healed. Lupus. Lower extremity edema. Left calcaneus gait Plan: I reviewed and discussed her case. Subcutaneous excisional debridement was performed as noted in the clinical panel. She has some local signs of infection that seem to be resolving, and I do not recommend application of advanced wound healing product, epi-fix today. Change dressing with dakin wet to dry dressing; prescription was provided and she was advised on proper use. A culture was obtained; mrsa growth was identified. She was started on oral antibiotic 100 mg doxycycline bid and a refill for an additional week was provided. I added an additional Plastizote offloading liner previously to her cam walker boot with an offloading pocket to take additional pressure off of the heel ulcer site. She admits she 'has to walk on this at times still'. I would like to apply a total contact cast once her cellulitis is confidently resolved. This will be considered next week and she is amendable to proceed. She was advised to maintain a good balance whole food diet with adequate protein and nutrients to optimize healing. A prescription for Yosvany was provided and she is advised on proper use. I offered her a senior medical technologist referral as well and she relates she did not get this scheduled yet. A copy of the referral was provided again today. The goal is to reduce inflammation from her lupus, reduce weight, reduce leg edema, and optimize healing potential for recurrent wound with this referral. She understands her systemic inflammatory disease of lupus may also be contributing to delayed healing. She will avoid antirheumatic medications at this time. I will reach out to her supply chain consultant to discuss the details of this medication hold. We discussed conservative or surgical intervention. Performing a flap was discussed including with a bilobed rotational versus other rotational flap. My concern with this is that she has a calcaneus gait and she is prone to further breakdown even with that surgical intervention. I offered her a surgery to reapproximate and shorten her Achilles tendon. It is noted she had prior surgery in this area with an injury in the early postoperative setting. She will consider this and is not electing to proceed forward with this at this time. I answered all of her questions. She was advised to return to the wound healing center in 1 week. To call sooner if she has any questions or concerns or any evidence of infection development. This case was also discussed with referring physician Dr. Starr yesterday as well.
[2020-05-27 10:35] VITALS: BP 124/77; PULSE 101; RESP 22; TEMP 36.1; BMI 39.5
--- NOTE | 2020-05-27 16:01 | PN.PCM_ITS ---
(1) Cellulitis of left lower limb Status: Acute Current Visit: Yes Code(s): L03.116 - Cellulitis of left lower limb Comment: Improving, MRSA (2) Lupus (systemic lupus erythematosus) Status: Chronic Current Visit: Yes Code(s): M32.9 - Systemic lupus erythematosus, unspecified (3) Ulcer of left foot with fat layer exposed Status: Chronic Current Visit: Yes Code(s): L97.522 - Non-pressure chronic ulcer of other part of left foot with fat layer exposed (4) Calcaneal gait Status: Chronic Current Visit: Yes Code(s): R26.89 - Other abnormalities of gait and mobility Comment: left (5) Delayed wound healing Status: Chronic Current Visit: Yes Code(s): T14.8XXD - Other injury of unspecified body region, subsequent encounter (6) Malnutrition Status: Chronic Current Visit: Yes Code(s): E46 - Unspecified protein- calorie malnutrition (7) Pressure ulcer of unspecified heel, stage 2 Status: Chronic Current Visit: Yes Qualifiers: Laterality: left Qualified Code(s): L89.622 - Pressure ulcer of left heel, stage 2 Code(s): L89.602 - Pressure ulcer of unspecified heel, stage 2 (8) MRSA (methicillin resistant staph aureus) culture positive Status: Acute Current Visit: Yes Code(s): Z22.322 - Carrier or suspected carrier of Methicillin resistant Staphylococcus aureus Type of Wound Date of Service: 05/27/20 Chief Complaint: Left heel ulcer History of Wound: This pleasant 54-year-old female with significant past medical history of lupus, history of panic attack, depression, history of delayed healing, hyperlipidemia, irritable bowel syndrome, memory loss, restless leg syndrome, and obstructive sleep apnea is here for follow-up of left heel ulcer. She denies fever, chill, nausea, vomiting. Her left foot pain is decreased. She is taking doxycycline as advised. She has performed Dakin dressing changes for about 5 days until she noticed she has some skin peeling and irritation adjacent to the ulcer site extending into the arch area. Her redness has resolved and she denies odor. She denies diarrhea or other side effects from the antibiotic. Progress of Wound: Stabilizing heel ulcer with resolution of local infection signs - Physical Exam Vital Signs Temp Pulse Resp BP 97 F L 101 H 22 H 124/77 H 05/27/20 10:35 05/27/20 10:35 05/27/20 10:35 05/27/20 10:35 General: Alert, Oriented x3, Cooperative, No apparent distress HEENT: Atraumatic Extremities: No cyanosis, Capillary Refill Less than 3 Seconds, No Calf Tenderness, Edema, Peripheral Pulses Normal Skin: Ulcer/ Wound - No purulence, erythema, streaking, odor, local infection, calor. The adjacent skin is atrophic and there is some mild skin peeling distal. No bogginess or fluctuance on palpation. No induration. The ulcer bed is more granular and has reduced depth today. There is no significant peripheral callus formation noted Wound Measurements and Assessment WC - Nurse 1 - General Ulcer Measurement Start: 05/13/20 10:45 Freq: Status: Active Protocol: Activity Type Activity Date Activity User E-Sign Co-Sign Detail Recorded Client Recorded Date Recorded By Document 05/27/20 10:35 DL [id number] 05/27/20 10:42 DL 05/27/20 10:35 Wound Center Nurse 1 [Ulcer Assessment] #1 Left Heel- Plantar -Current Size (cm) - Length 1.5 -Current Size (cm) - Width 1.8 -Current Size (cm) - Depth 0.4 -Total Square Cm 2.70 -Photo Taken No -Exudate Amt Small -Exudate Type Serosanguineous -Wound Margin Thickened -Granulation Amt Medium (34-66%) -Granulation Quality Red -Necrosis Amt Medium (34-66%) -Necrotic Tissue Type Adherent Slough -Structure Exposed N/A -Texture (Cecelia-wound Skin Appearance) Callus,Scarring -Moisture (Cecelia-wound Skin Appearance Dry/Scaly ) -Color (Cecelia-wound Skin Appearance) Rubor -Temperature (Cecelia-wound Skin No Abnormality Appearance) (Pt Warm) -Tenderness on Palpation (Cecelia-wound No Skin Appearance) -Ulcer Cleansing Wound Cleanser -Foul Odor after Cleansing No -Anesthetic Used 4% Lidocaine Solution WC - Nurse 2 - General Ulcer CM Notes Start: 05/26/20 19:34 Freq: Status: Active Protocol: Activity Type Activity Date Activity User E-Sign Co-Sign Detail Recorded Client Recorded Date Recorded By Document 05/27/20 10:51 [id number] 05/27/20 10:58 STEPHANIE 05/27/20 10:51 Wound Center Nurse 2 [Procedure/Treatment] -Time 10:51 -Correct Patient Yes -Correct Side, Site, Position Yes -Correct Procedure Yes -Procedure Performed Yes -Type of Procedure Debridement -Clinical Debridement Subcutaneous -Tissue Removed Subcutaneous -Post Debridement (cm) - Length 1.6 -Post Debridement (cm) - Width 1.8 -Post Debridement (cm) - Depth 0.4 -Total Square (Post) (cm) 2.88 -Area of Debridement (cm) - Length 1.6 -Area of Debridement (cm) - Width 1.8 -Total Square (Area) (cm) 2.88 -Tunneling No -Undermining/Tunneling No -Circular Undermining No -Wound/Ulcer Outcome Not Healed -Ulcer Cleansing Rinsed/ Irrigated with Saline -Foul Odor after Cleansing No -Bioengineered Tissue Yes -Type of Bioengineered Tissue Epifix -Expiration Date 01/07/25 -Product Lot Number [id number] -Percent Used 100 -Saline Lot Number [id number] -Bleeding Controlled with Pressure -Offloading Yes -Type of Offloading Total Contact Cast (TCC) - Left ($) -Treatment Response Procedure Tolerated Well -Debridement - Subq, 1st 20sq cm Yes -Apply Skin Sub - each addt'l 25 sq 1 cm - Feet -Epifix (per sq cm) 4 [See Physician Procedure note for Specifics] Pain Scale: 0-10 Numeric [Pain] -Is Patient Pain Free? Yes - Nurse 3 - General Ulcer D/C NN Start: 05/26/20 19:34 Freq: Status: Active Protocol: Activity Type Activity Date Activity User E-Sign Co-Sign Detail Recorded Client Recorded Date Recorded By Document 05/27/20 11:49 DL [id number] 05/27/20 11:51 DL 05/27/20 11:49 Wound Care Nurse 3 [Wound Dressing] #1 Left Heel- Plantar -Foul Odor after Cleansing No -Other Dressing Epifix -Other Covering TCC [Post Procedure Tolerated] -Treatment Response Procedure Tolerated Well Pain Scale: 0-10 Numeric [Pain] -Is Patient Pain Free? Yes - Visit Discharge [Visit Discharge Information] -Discharge Condition Stable -Ambulatory Status Ambulatory, Walker -Transportation Private Auto Debridement Note Post-Debridement Measurements/Treatment - Nurse 2 - General Ulcer CM Notes Start: 05/26/20 19:34 Freq: Status: Active Protocol: Activity Type Activity Date Activity User E-Sign Co-Sign Detail Recorded Client Recorded Date Recorded By Document 05/27/20 10:51 STEPHANIE [id number] 05/27/20 10:58 JF 05/27/20 10:51 Wound Center Nurse 2 #1 Left Heel- Plantar -Time 10:51 -Correct Patient Yes -Correct Side, Site, Position Yes -Correct Procedure Yes -Procedure Performed Yes -Type of Procedure Debridement -Clinical Debridement Subcutaneous -Tissue Removed Subcutaneous -Post Debridement (cm) - Length 1.6 -Post Debridement (cm) - Width 1.8 -Post Debridement (cm) - Depth 0.4 -Total Square (Post) (cm) 2.88 -Area of Debridement (cm) - Length 1.6 -Area of Debridement (cm) - Width 1.8 -Total Square (Area) (cm) 2.88 -Tunneling No -Undermining/Tunneling No -Circular Undermining No -Wound/Ulcer Outcome Not Healed -Ulcer Cleansing Rinsed/ Irrigated with Saline -Foul Odor after Cleansing No -Bioengineered Tissue Yes -Type of Bioengineered Tissue Epifix -Expiration Date 01/07/25 -Product Lot Number [id number] -Percent Used 100 -Saline Lot Number [id number] -Bleeding Controlled with Pressure -Offloading Yes -Type of Offloading Total Contact Cast (TCC) - Left ($) -Treatment Response Procedure Tolerated Well -Debridement - Subq, 1st 20sq cm Yes -Apply Skin Sub - each addt'l 25 sq cm 1 - Feet -Epifix (per sq cm) 4 Pain Scale: 0-10 Numeric Is Patient Pain Free? Yes - Nurse 3 - General Ulcer D/C NN Start: 05/26/20 19:34 Freq: Status: Active Protocol: Activity Type Activity Date Activity User E-Sign Co-Sign Detail Recorded Client Recorded Date Recorded By Document 05/27/20 11:49 DL [id number] 05/27/20 11:51 DL 05/27/20 11:49 Wound Care Nurse 3 #1 Left Heel- Plantar -Foul Odor after Cleansing No -Other Dressing Epifix -Other Covering TCC Treatment Response Procedure Tolerated Well Pain Scale: 0-10 Numeric Is Patient Pain Free? Yes WC - Visit Discharge Discharge Condition Stable Ambulatory Status Ambulatory, Walker Transportation Private Auto Wound debrided: plantar heel Laterality: Left Type of Debridement: Excisional debridement Anesthesia Used: 5% Lidocaine Gel Depth: in the subcutaneous layer Percentage of wound debrided: 100 Instrument Used: #15 blade Tissue Removed: fibrous, devitalized subcutaneous, biofilm, slough Severity: Fat Layer Exposed Amount of bleeding with debridement: Mild Bleeding Controlled with: Pressure Patient tolerated procedure well Assessment/Plan Active Problems Lupus (systemic lupus erythematosus) (Chronic) Ulcer of left foot with fat layer exposed (Chronic) Calcaneal gait (Chronic) left Delayed wound healing (Chronic) Malnutrition (Chronic) Pressure ulcer of unspecified heel, stage 2 (Chronic) Cellulitis of left lower limb (Acute) Improving, MRSA MRSA (methicillin resistant staph aureus) culture positive (Acute) Assessment: Left heel ulcer, chronic pressure with delayed healing. Lupus. Lower extremity edema. Left calcaneus gait. MRSA infection with cellulitis, improving Plan: I reviewed and discussed her case. Subcutaneous excisional debridement was performed as noted in the clinical panel. She has some local signs of infection that seem to be resolved. A culture was obtained; mrsa growth was identified. She was started on oral antibiotic 100 mg doxycycline bid and a refill for an additional week was provided. She was advised to complete this course. I recommend application of advanced wound healing product, epi-fix, and total contact cast today. The indication, benefit, application process, and anticipated healing time management were reviewed for the epi-fix and total contact cast. She is amendable to proceed. The epi-fix was applied according standard protocol was further secured with a wound veil and Steri-Strips. Additionally the total contact cast was applied according standard protocol in a well-padded neutral position. She tolerated both of these procedures well. She was advised to keep these clean dry and intact until follow-up next week. I recommended use of a shower bag. She was advised to maintain a good balance whole food diet with adequate protein and nutrients to optimize healing. A prescription for Yosvany was provided and she was advised on proper use. I offered her a subassembly assembler referral as well and she relates she did not get this scheduled yet. She was advised to proceed forward. The goal is to reduce inflammation from her lupus, reduce weight, reduce leg edema, and optimize healing potential for recurrent wound with this referral. She understands her systemic inflammatory disease of lupus may also be contributing to delayed healing. She will avoid antirheumatic medications at this time. I will reach out to her community service officer coordinator to discuss the details of this medication hold. She was advised to avoid prednisone use and will also hold the Plaquenil at this time unless she has an intense flareup. This was reviewed verbally with Dr. Pratt. We discussed conservative or surgical intervention. Performing a flap was discussed including with a bilobed rotational versus other rotational flap. My concern with this is that she has a calcaneus gait and she is prone to further breakdown even with that surgical intervention. I offered her a surgery to reapproximate and shorten her Achilles tendon. It is noted she had prior surgery in this area with an injury in the early postoperative setting. She will consider this and is not electing to proceed forward with this at this time. I answered all of her questions. She was advised to return to the wound healing center in 1 week. To call sooner if she has any questions or concerns or any evidence of infection development.
[2020-06-03 10:26] VITALS: BP 123/78; PULSE 90; RESP 18; TEMP 35.8; BMI 39.5
--- NOTE | 2020-06-03 11:27 | PN.PCM_ITS ---
(1) Cellulitis of left lower limb Status: Resolved Current Visit: Yes Code(s): L03.116 - Cellulitis of left lower limb Comment: Improving, MRSA (2) Lupus (systemic lupus erythematosus) Status: Chronic Current Visit: Yes Code(s): M32.9 - Systemic lupus erythematosus, unspecified (3) Ulcer of left foot with fat layer exposed Status: Chronic Current Visit: Yes Code(s): L97.522 - Non-pressure chronic ulcer of other part of left foot with fat layer exposed (4) Calcaneal gait Status: Chronic Current Visit: Yes Code(s): R26.89 - Other abnormalities of gait and mobility Comment: left (5) Delayed wound healing Status: Chronic Current Visit: Yes Code(s): T14.8XXD - Other injury of unspecified body region, subsequent encounter (6) Malnutrition Status: Chronic Current Visit: Yes Code(s): E46 - Unspecified protein- calorie malnutrition (7) Pressure ulcer of unspecified heel, stage 2 Status: Chronic Current Visit: Yes Qualifiers: Laterality: left Qualified Code(s): L89.622 - Pressure ulcer of left heel, stage 2 Code(s): L89.602 - Pressure ulcer of unspecified heel, stage 2 (8) MRSA (methicillin resistant staph aureus) culture positive Status: Acute Current Visit: Yes Code(s): Z22.322 - Carrier or suspected carrier of Methicillin resistant Staphylococcus aureus Type of Wound Date of Service: 06/03/20 Chief Complaint: Left heel ulcer History of Wound: This pleasant 54-year-old female with significant past medical history of lupus, history of panic attack, depression, history of delayed healing, hyperlipidemia, irritable bowel syndrome, memory loss, restless leg syndrome, and obstructive sleep apnea is here for follow-up of left heel ulcer. She denies fever, chill, nausea, vomiting. Her left foot pain is decreased. She is taking doxycycline as advised. Her redness has resolved and she denies odor. She denies diarrhea or other side effects from the antibiotic. He is kept her total contact cast and advance weaning product intact since last week. She is amendable to proceed with additional application today. Progress of Wound: Improving - Physical Exam Vital Signs Temp Pulse Resp BP 96.5 F L 90 18 123/78 H 06/03/20 10:06/03/20 10:26 06/03/20 10:06/03/20 10:26 General: Alert, Oriented x3, Cooperative, No apparent distress HEENT: Atraumatic - Okay to Extremities: Capillary Refill Less than 3 Seconds, No Calf Tenderness, Diminished Peripheral Pulses, Edema Skin: Ulcer/ Wound - No purulence, erythema, string, odor, infection. Peripheral epithelialization and reduced ulcer depth is noted. There is also improvement in granulation tissue in the base. There is no erythema, calor, edema, or signs of infection today. Wound Measurements and Assessment WC - Nurse 1 - General Ulcer Measurement Start: 05/13/20 10:45 Freq: Status: Active Protocol: Activity Type Activity Date Activity User E-Sign Co-Sign Detail Recorded Client Recorded Date Recorded By Document 06/03/20 10:26 RB [id number] 06/03/20 10:30 RB 06/03/20 10:26 Wound Center Nurse 1 [Ulcer Assessment] #1 Left Heel- Plantar -Combined with other wound No -Current Size (cm) - Length 0.8 -Current Size (cm) - Width 1.4 -Current Size (cm) - Depth 0.3 -Total Square Cm 1.12 -Tunneling No -Undermining/Tunneling No -Circular Undermining No -Exudate Amt Small -Exudate Type Serosanguineous -Wound Margin Flat & Intact -Granulation Amt Medium (34-66%) -Granulation Quality [place] -Slough/Fibrin Yes -Necrosis Amt Small (1-33%) -Necrotic Tissue Type Adherent Slough -Structure Exposed N/A -Texture (Cecelia-wound Skin Appearance) Assessed,Callus -Moisture (Cecelia-wound Skin Appearance Assessed ) -Color (Cecelia-wound Skin Appearance) Assessed -Temperature (Cecelia-wound Skin No Abnormality Appearance) (Pt Warm) -Tenderness on Palpation (Cecelia-wound No Skin Appearance) -Ulcer Cleansing Wound Cleanser -Foul Odor after Cleansing No -Anesthetic Used 4% Lidocaine Solution [Edema Assessment] -Lower Limb Edema Present Yes -Left Calf (cm) 40 -Left Ankle (cm) 22.2 WC - Nurse 2 - General Ulcer CM Notes Start: 05/26/20 19:34 Freq: Status: Active Protocol: Activity Type Activity Date Activity User E-Sign Co-Sign Detail Recorded Client Recorded Date Recorded By Document 06/03/20 10:32 [email or web address] 06/03/20 10:36 06/03/20 10:32 Wound Center Nurse 2 [Procedure/Treatment] #1 Left Heel- Plantar -Time 10:32 -Correct Patient Yes -Correct Side, Site, Position Yes -Correct Procedure Yes -Procedure Performed Yes -Type of Procedure Debridement -Clinical Debridement Subcutaneous -Tissue Removed Subcutaneous -Post Debridement (cm) - Length 0.8 -Post Debridement (cm) - Width 1.5 -Post Debridement (cm) - Depth 0.3 -Total Square (Post) (cm) 1.20 -Area of Debridement (cm) - Length 0.8 -Area of Debridement (cm) - Width 1.5 -Total Square (Area) (cm) 1.20 -Tunneling No -Undermining/Tunneling No -Circular Undermining No -Wound/Ulcer Outcome Not Healed -Ulcer Cleansing Rinsed/ Irrigated with Saline -Foul Odor after Cleansing No -Bioengineered Tissue Yes -Type of Bioengineered Tissue Epifix -Expiration Date 02/06/25 -Product Lot Number [id number] -Percent Used 100 -Saline Lot Number [id number] -Bleeding Controlled with Pressure -Offloading Yes -Type of Offloading Total Contact Cast (TCC) - Left ($) -Treatment Response Procedure Tolerated Well -Debridement - Subq, 1st 20sq cm No -Epifix (per sq cm) 4 [See Physician Procedure note for Specifics] Pain Scale: 0-10 Numeric [Pain] -Is Patient Pain Free? Yes Musculoskeletal: No Tenderness to Palpation of Joints or Extremities, Muscle Wasting, - - Calcaneus gait noted. Compartments soft to palpate Neurological: Sensory exam intact to light touch and pain Psych/Mental Status: Normal Affect, Appropriate Debridement Note Post-Debridement Measurements/Treatment WC - Nurse 2 - General Ulcer CM Notes Start: 05/26/20 19:34 Freq: Status: Active Protocol: Activity Type Activity Date Activity User E-Sign Co-Sign Detail Recorded Client Recorded Date Recorded By Document 05/27/20 10:51 [id number] 05/27/20 10:58 Document 06/03/20 10:32 [id number] 06/03/20 10:36 05/27/20 06/03/20 10:51 10:32 Wound Center Nurse 2 #1 Left Heel- Plantar -Time 10:51 10:32 -Correct Patient Yes Yes -Correct Side, Site, Position Yes Yes -Correct Procedure Yes Yes -Procedure Performed Yes Yes -Type of Procedure Debridement Debridement -Clinical Debridement Subcutaneous Subcutaneous -Tissue Removed Subcutaneous Subcutaneous -Post Debridement (cm) - Length 1.6 0.8 -Post Debridement (cm) - Width 1.8 1.5 -Post Debridement (cm) - Depth 0.4 0.3 -Total Square (Post) (cm) 2.88 1.20 -Area of Debridement (cm) - Length 1.6 0.8 -Area of Debridement (cm) - Width 1.8 1.5 -Total Square (Area) (cm) 2.88 1.20 -Tunneling No No -Undermining/Tunneling No No -Circular Undermining No No -Wound/Ulcer Outcome Not Healed Not Healed -Ulcer Cleansing Rinsed/ Rinsed/ Irrigated with Irrigated with Saline Saline -Foul Odor after Cleansing No No -Bioengineered Tissue Yes Yes -Type of Bioengineered Tissue Epifix Epifix -Expiration Date 01/07/25 02/06/25 -Product Lot Number [id number] -Percent Used 100 100 -Saline Lot Number [id number] -Bleeding Controlled with Pressure Pressure -Offloading Yes Yes -Type of Offloading Total Contact Total Contact Cast (TCC) - Cast (TCC) - Left ($) Left ($) -Treatment Response Procedure Procedure Tolerated Well Tolerated Well -Debridement - Subq, 1st 20sq cm Yes No -Apply Skin Sub - each addt'l 25 sq cm 1 - Feet -Epifix (per sq cm) 4 4 Pain Scale: 0-10 Numeric Is Patient Pain Free? Yes Yes - Nurse 3 - General Ulcer D/C NN Start: 05/26/20 19:34 Freq: Status: Active Protocol: Activity Type Activity Date Activity User E-Sign Co-Sign Detail Recorded Client Recorded Date Recorded By Document 05/27/20 11:49 DL [id number] 05/27/20 11:51 DL 05/27/20 11:49 Wound Care Nurse 3 #1 Left Heel- Plantar -Foul Odor after Cleansing No -Other Dressing Epifix -Other Covering TCC Treatment Response Procedure Tolerated Well Pain Scale: 0-10 Numeric Is Patient Pain Free? Yes WC - Visit Discharge Discharge Condition Stable Ambulatory Status Ambulatory, Walker Transportation Private Auto Wound debrided: plantar heel Laterality: Left Type of Debridement: Excisional debridement Anesthesia Used: 5% Lidocaine Gel Depth: in the subcutaneous layer Percentage of wound debrided: 100 Instrument Used: #15 blade Tissue Removed: fibrous, devitalized subcutaneous, biofilm, slough Severity: Fat Layer Exposed Amount of bleeding with debridement: Mild Bleeding Controlled with: Pressure Patient tolerated procedure well Assessment/Plan Active Problems Lupus (systemic lupus erythematosus) (Chronic) Ulcer of left foot with fat layer exposed (Chronic) Calcaneal gait (Chronic) left Delayed wound healing (Chronic) Malnutrition (Chronic) Pressure ulcer of unspecified heel, stage 2 (Chronic) MRSA (methicillin resistant staph aureus) culture positive (Acute) Assessment: Left heel ulcer, chronic pressure with delayed healing. Lupus. Lower extremity edema. Left calcaneus gait. MRSA infection with cellulitis, improving Plan: I reviewed and discussed her case. Subcutaneous excisional debridement was performed as noted in the clinical panel. She has some local signs of infection that remain resolved. She completed an oral antibiotic 100 mg doxycycline bid for about two weeks. I recommend application of advanced wound healing product, epi-fix, and total contact cast today. The indication, benefit, application process, and anticipated healing time management were reviewed for the epi-fix and total contact cast. She is amendable to proceed. The epi-fix was applied according standard protocol was further secured with a wound veil and Steri-Strips. Additionally the total contact cast was applied according standard protocol in a well-padded neutral position. She tolerated both of these procedures well. She was advised to keep these clean dry and intact until follow-up next week. I recommended use of a shower bag. She was advised to maintain a good balance whole food diet with adequate protein and nutrients to optimize healing. A prescription for Yosvany was provided and she was advised on proper use. I offered her a straight tooth gear generator operator referral as well and she relates she did not get this scheduled yet. She was advised to proceed forward. The goal is to reduce inflammation from her lupus, reduce weight, reduce leg edema, and optimize healing potential for recurrent wound with this referral. She understands her systemic inflammatory disease of lupus may also be contributing to delayed healing. She will avoid antirheumatic medications at this time. I will reach out to her head pumper to discuss the details of this medication hold. She was advised to avoid prednisone use and will also hold the Plaquenil at this time unless she has an intense flareup. This was reviewed verbally with Dr. Pratt. We discussed conservative or surgical intervention. Performing a flap was discussed including with a bilobed rotational versus other rotational flap. My concern with this is that she has a calcaneus gait and she is prone to further breakdown even with that surgical intervention. I offered her a surgery to reapproximate and shorten her Achilles tendon. It is noted she had prior surgery in this area with an injury in the early postoperative setting. She will consider this and is not electing to proceed forward with this at this time. I answered all of her questions. She was advised to return to the wound healing center in 1 week. To call sooner if she has any questions or concerns or any evidence of infection development.
== END 2020-06-08 23:59 ==
LOC: WC 09:30
PROVIDERS: PCP Family Medicine; Referring Provider Podiatrist Foot & Ankle Surgery; Visit Provider Podiatrist
DX: L97.422 Non-pressure chronic ulcer of left heel and midfoot with fat layer exposed (principal); M32.9 Systemic lupus erythematosus, unspecified; L03.116 Cellulitis of left lower limb; G25.81 Restless legs syndrome; G47.33 Obstructive sleep apnea (adult) (pediatric); E78.5 Hyperlipidemia, unspecified; R60.0 Localized edema
CPT/HCPCS: 11042; 15275; 29445; 87070; 87075; 87077; 87186; 87205; 87640; Q4186

== ENCOUNTER 2020-07-08 13:15 | Outpatient (RCR) | payer MEDICARE, BC, SELFPAY ==
[2020-06-09 00:21] VITALS: BP 123/78; PULSE 90; RESP 18; TEMP 35.8
[2020-06-10 10:55] VITALS: BP 129/75; PULSE 97; RESP 18; TEMP 36.2; BMI 39.5
--- NOTE | 2020-06-10 14:48 | PCM.WC.PN ---
(1) Ulcer of left foot with fat layer exposed Status: Chronic Code(s): L97.522 - Non-pressure chronic ulcer of other part of left foot with fat layer exposed (2) Calcaneal gait Status: Chronic Code(s): R26.89 - Other abnormalities of gait and mobility Comment: left (3) Delayed wound healing Status: Chronic Code(s): T14.8XXD - Other injury of unspecified body region, subsequent encounter (4) Malnutrition Status: Chronic Code(s): E46 - Unspecified protein-calorie malnutrition (5) MRSA (methicillin resistant staph aureus) culture positive Status: Resolved Code(s): Z22.322 - Carrier or suspected carrier of Methicillin resistant Staphylococcus aureus (6) Cellulitis of left lower limb Status: Resolved Code(s): L03.116 - Cellulitis of left lower limb Comment: Improving, MRSA (7) Lupus (systemic lupus erythematosus) Status: Chronic Code(s): M32.9 - Systemic lupus erythematosus, unspecified Type of Wound Date of Service: 06/10/20 Chief Complaint: Left heel ulcer History of Wound: This pleasant 54-year-old female with significant past medical history of lupus, history of panic attack, depression, history of delayed healing, hyperlipidemia, irritable bowel syndrome, memory loss, restless leg syndrome, and obstructive sleep apnea is here for follow-up of left heel ulcer. She denies fever, chill, nausea, vomiting. Her left foot pain is decreased. She has completed doxycycline as advised. Her redness has resolved and she denies odor. She denies diarrhea or other side effects from the antibiotic. She has kept her total contact cast and advance weaning product intact since last week. She is amendable to proceed with additional application today. Progress of Wound: Improving - Physical Exam Vital Signs Temp Pulse Resp BP 97.1 F L 97 18 129/75 H 06/10/20 10:55 06/10/20 10:55 06/10/20 10:55 06/10/20 10:55 General: Alert, Oriented x3, Cooperative, No apparent distress HEENT: Atraumatic Extremities: No cyanosis, Capillary Refill Less than 3 Seconds, No Calf Tenderness, Diminished Peripheral Pulses, Edema Skin: Ulcer/ Wound - No purulence, erythema, streaking, odor, infection. Reduced ulcer depth is noted. Her peripheral skin is hairless and atrophic. Wound Measurements and Assessment - Nurse 1 - General Ulcer Measurement Start: 06/10/20 10:54 Freq: Status: Active Protocol: Activity Type Activity Date Activity User E-Sign Co-Sign Detail Recorded Client Recorded Date Recorded By Document 06/10/20 10:55 SCOTTIE [id number] 06/10/20 11:08 SCOTTIE 06/10/20 10:55 Wound Center Nurse 1 [Ulcer Assessment] #1 Left Heel- Plantar -Current Size (cm) - Length 1 -Current Size (cm) - Width 1.5 -Current Size (cm) - Depth 0.2 -Total Square Cm 1.5 -Photo Taken No -Exudate Amt Small -Exudate Type Serosanguineous -Wound Margin Thickened -Granulation Amt Medium (34-66%) -Granulation Quality Red -Necrosis Amt Medium (34-66%) -Necrotic Tissue Type Adherent Slough -Structure Exposed N/A -Texture (Cecelia-wound Skin Appearance) Scarring -Moisture (Cecelia-wound Skin Appearance Maceration ) -Color (Cecelia-wound Skin Appearance) No Abnormality -Temperature (Cecelia-wound Skin No Abnormality Appearance) (Pt Warm) -Tenderness on Palpation (Cecelia-wound No Skin Appearance) -Ulcer Cleansing Wound Cleanser -Foul Odor after Cleansing No -Anesthetic Used 4% Lidocaine Solution - Nurse 2 - General Ulcer CM Notes Start: 06/10/20 10:54 Freq: Status: Active Protocol: Activity Type Activity Date Activity User E-Sign Co-Sign Detail Recorded Client Recorded Date Recorded By Document 06/10/20 11:22 [email or web address] [id number] 06/10/20 11:25 06/10/20 11:22 Wound Center Nurse 2 [Procedure/Treatment] -Time 11:23 -Correct Patient Yes -Correct Side, Site, Position Yes -Correct Procedure Yes -Procedure Performed Yes -Type of Procedure Debridement -Clinical Debridement Subcutaneous -Tissue Removed Subcutaneous -Post Debridement (cm) - Length 1.2 -Post Debridement (cm) - Width 1.4 -Post Debridement (cm) - Depth 0.2 -Total Square (Post) (cm) 1.68 -Area of Debridement (cm) - Length 1.2 -Area of Debridement (cm) - Width 1.4 -Total Square (Area) (cm) 1.68 -Tunneling No -Undermining/Tunneling No -Circular Undermining No -Wound/Ulcer Outcome Not Healed -Ulcer Cleansing Rinsed/ Irrigated with Saline -Foul Odor after Cleansing No -Bioengineered Tissue Yes -Type of Bioengineered Tissue Epifix 18mm Disc -Expiration Date 02/06/25 -Product Lot Number [id number] -Percent Used 100 -Saline Lot Number [id number] -Bleeding Controlled with Pressure -Offloading Yes -Type of Offloading Total Contact Cast (TCC) - Left ($) -Treatment Response Procedure Tolerated Well -Debridement - Subq, 1st 20sq cm No -Apply Skin Sub - 1st 25 sq cm - Feet 1 -Epifix 18mm Disc 3 Query Text:18mm = 3 [See Physician Procedure note for Specifics] Pain Scale: 0-10 Numeric [Pain] -Is Patient Pain Free? Yes - Nurse 3 - General Ulcer D/C NN Start: 06/10/20 10:54 Freq: Status: Active Protocol: Activity Type Activity Date Activity User E-Sign Co-Sign Detail Recorded Client Recorded Date Recorded By Document 06/10/20 11:43 RB [id number] 06/10/20 11:44 RB 06/10/20 11:43 Wound Care Nurse 3 [Wound Dressing] #1 Left Heel- Plantar -Other Dressing TCC primary layer [Post Procedure Tolerated] -Treatment Response Procedure Tolerated Well Pain Scale: 0-10 Numeric [Pain] -Is Patient Pain Free? Yes Teaching: Wound Center [Wound Center Education] (Items with an * have Printed Materials Available- Please identify what is given to patient under the Teaching materials given to patient and caregiver Section. Eliminating Foot Pressure -Person Taught Patient -Teaching Method Discussion -Response to teaching Verbalize understanding - Visit Discharge [Visit Discharge Information] -Discharge Condition Stable -Transportation Private Auto -Medication Reconcilliation completed No & provided to patient/care provider -Clinical Summary of Care Provided Yes Musculoskeletal: No Tenderness to Palpation of Joints or Extremities, Muscle Wasting, - - Calcaneus gait position noted. Total contact cast was kept intact Neurological: Sensory exam intact to light touch and pain Psych/Mental Status: Normal Affect, Appropriate Debridement Note Post-Debridement Measurements/Treatment - Nurse 2 - General Ulcer CM Notes Start: 06/10/20 10:54 Freq: Status: Active Protocol: Activity Type Activity Date Activity User E-Sign Co-Sign Detail Recorded Client Recorded Date Recorded By Document 06/10/20 11:22 [id number] 06/10/20 11:25 06/10/20 11:22 Wound Center Nurse 2 #1 Left Heel- Plantar -Time 11:23 -Correct Patient Yes -Correct Side, Site, Position Yes -Correct Procedure Yes -Procedure Performed Yes -Type of Procedure Debridement -Clinical Debridement Subcutaneous -Tissue Removed Subcutaneous -Post Debridement (cm) - Length 1.2 -Post Debridement (cm) - Width 1.4 -Post Debridement (cm) - Depth 0.2 -Total Square (Post) (cm) 1.68 -Area of Debridement (cm) - Length 1.2 -Area of Debridement (cm) - Width 1.4 -Total Square (Area) (cm) 1.68 -Tunneling No -Undermining/Tunneling No -Circular Undermining No -Wound/Ulcer Outcome Not Healed -Ulcer Cleansing Rinsed/ Irrigated with Saline -Foul Odor after Cleansing No -Bioengineered Tissue Yes -Type of Bioengineered Tissue Epifix 18mm Disc -Expiration Date 02/06/25 -Product Lot Number [id number] -Percent Used 100 -Saline Lot Number [id number] -Bleeding Controlled with Pressure -Offloading Yes -Type of Offloading Total Contact Cast (TCC) - Left ($) -Treatment Response Procedure Tolerated Well -Debridement - Subq, 1st 20sq cm No -Apply Skin Sub - 1st 25 sq cm - Feet 1 -Epifix 18mm Disc 3 Query Text:18mm = 3 Pain Scale: 0-10 Numeric Is Patient Pain Free? Yes - Nurse 3 - General Ulcer D/C NN Start: 06/10/20 10:54 Freq: Status: Active Protocol: Activity Type Activity Date Activity User E-Sign Co-Sign Detail Recorded Client Recorded Date Recorded By Document 06/10/20 11:43 RB [id number] 06/10/20 11:44 RB 06/10/20 11:43 Wound Care Nurse 3 #1 Left Heel- Plantar -Other Dressing TCC primary layer Treatment Response Procedure Tolerated Well Pain Scale: 0-10 Numeric Is Patient Pain Free? Yes Teaching: Wound Center Eliminating Foot Pressure -Person Taught Patient -Teaching Method Discussion -Response to teaching Verbalize understanding WC - Visit Discharge Discharge Condition Stable Transportation Private Auto Medication Reconcilliation completed & No provided to patient/care provider Clinical Summary of Care Provided Yes Wound debrided: plantar heel Laterality: Left Type of Debridement: Excisional debridement Anesthesia Used: 5% Lidocaine Gel Depth: in the subcutaneous layer Percentage of wound debrided: 100 Instrument Used: #15 blade Tissue Removed: fibrous, devitalized subcutaneous, biofilm, slough Severity: Fat Layer Exposed Amount of bleeding with debridement: Mild Bleeding Controlled with: Pressure Patient tolerated procedure well Assessment/Plan Assessment: Left heel ulcer, chronic pressure with delayed healing. Lupus. Lower extremity edema. Left calcaneus gait. MRSA infection with cellulitis, improving Plan: I reviewed and discussed her case. Subcutaneous excisional debridement was performed as noted in the clinical panel. She has some local signs of infection that remain resolved. She completed an oral antibiotic 100 mg doxycycline bid for about two weeks. She was reassured that there are no local signs of infection today. I recommend application of advanced wound healing product, epi-fix, and total contact cast today. The indication, benefit, application process, and anticipated healing time management were reviewed for the epi-fix and total contact cast. She is amendable to proceed. The epi-fix was applied according standard protocol was further secured with a wound veil and Steri-Strips. Additionally the total contact cast was applied according standard protocol in a well-padded neutral position. She tolerated both of these procedures well. She was advised to keep these clean dry and intact until follow-up next week. I recommended use of a shower bag. She was advised to maintain a good balance whole food diet with adequate protein and nutrients to optimize healing. A prescription for Yosvany was provided and she was advised on proper use. I offered her a patient access director referral as well and she relates she did not get this scheduled yet. She was advised to proceed forward. The goal is to reduce inflammation from her lupus, reduce weight, reduce leg edema, and optimize healing potential for recurrent wound with this referral. She understands her systemic inflammatory disease of lupus may also be contributing to delayed healing. She will avoid antirheumatic medications at this time. I will reach out to her commercial collections driver to discuss the details of this medication hold. She was advised to avoid prednisone use and will also hold the Plaquenil at this time unless she has an intense flareup. This was reviewed verbally with Dr. Pratt. We discussed conservative or surgical intervention. Performing a flap was discussed including with a bilobed rotational versus other rotational flap. My concern with this is that she has a calcaneus gait and she is prone to further breakdown even with that surgical intervention. I offered her a surgery to reapproximate and shorten her Achilles tendon. It is noted she had prior surgery in this area with an injury in the early postoperative setting. She will consider this and is not electing to proceed forward with this at this time. I also recommend she gets screening for venous insufficiency completed if she has not already had this done at an outside facility. I answered all of her questions. She was advised to return to the wound healing center in 1 week. To call sooner if she has any questions or concerns or any evidence of infection development.
[2020-06-17 09:46] VITALS: BP 137/86; PULSE 110; RESP 18; TEMP 35.9; BMI 39.5
--- NOTE | 2020-06-17 10:46 | PCM.WC.PN ---
(1) Ulcer of left foot with fat layer exposed Status: Chronic Current Visit: Yes Code(s): L97.522 - Non-pressure chronic ulcer of other part of left foot with fat layer exposed (2) Calcaneal gait Status: Chronic Current Visit: Yes Code(s): R26.89 - Other abnormalities of gait and mobility Comment: left (3) Delayed wound healing Status: Chronic Current Visit: Yes Code(s): T14.8XXD - Other injury of unspecified body region, subsequent encounter (4) Malnutrition Status: Chronic Current Visit: Yes Code(s): E46 - Unspecified protein-calorie malnutrition (5) MRSA (methicillin resistant staph aureus) culture positive Status: Resolved Current Visit: Yes Code(s): Z22.322 - Carrier or suspected carrier of Methicillin resistant Staphylococcus aureus (6) Cellulitis of left lower limb Status: Resolved Current Visit: Yes Code(s): L03.116 - Cellulitis of left lower limb Comment: Improving, MRSA (7) Lupus (systemic lupus erythematosus) Status: Chronic Current Visit: Yes Code(s): M32.9 - Systemic lupus erythematosus, unspecified Type of Wound Date of Service: 06/17/20 Chief Complaint: Left heel ulcer History of Wound: This pleasant 54-year-old female with significant past medical history of lupus, history of panic attack, depression, history of delayed healing, hyperlipidemia, irritable bowel syndrome, memory loss, restless leg syndrome, and obstructive sleep apnea is here for follow-up of left heel ulcer. She denies fever, chill, nausea, vomiting. Her left foot pain is decreased. She has completed doxycycline as advised. Her redness has resolved and she denies odor. She has kept her total contact cast and advance weaning product intact since last week. She is amendable to proceed with additional application today. She has discontinued her lupus medication as advised (managed by rheumatology). Progress of Wound: Improving - Physical Exam Vital Signs Temp Pulse Resp BP 96.6 F L 110 H 18 137/86 H 06/17/20 09:46 06/17/20 09:46 06/17/20 09:46 06/17/20 09:46 General: Alert, Oriented x3, Cooperative, No apparent distress HEENT: Atraumatic Extremities: No cyanosis, Capillary Refill Less than 3 Seconds, No Calf Tenderness, Diminished Peripheral Pulses, Edema Skin: Ulcer/ Wound - No purulence, erythema, streaking, odor, infection, necrosis, deep tissue exposure. Adjacent skin is atrophic Wound Measurements and Assessment WC - Nurse 1 - General Ulcer Measurement Start: 06/10/20 10:54 Freq: Status: Active Protocol: Activity Type Activity Date Activity User E-Sign Co-Sign Detail Recorded Client Recorded Date Recorded By Document 06/17/20 09:46 [place] [id number] 06/17/20 09:56 [place] 06/17/20 09:46 Wound Center Nurse 1 [Ulcer Assessment] #1 Left Heel- Plantar -Current Size (cm) - Length 1.1 -Current Size (cm) - Width 1.5 -Current Size (cm) - Depth 0.1 -Total Square Cm 1.65 -Tunneling No -Undermining/Tunneling No -Circular Undermining No -Change in Wound Grade/Stage No Query Text:If change please identify the Stage/Grade in the comment (ie. S2 G3) -Exudate Amt Medium -Exudate Type Serosanguineous -Wound Margin Thickened -Granulation Amt Medium (34-66%) -Granulation Quality Pale,[place] -Slough/Fibrin No -Necrosis Amt Medium (34-66%) -Necrotic Tissue Type Adherent Slough -Texture (Cecelia-wound Skin Appearance) Assessed,Callus -Moisture (Cecelia-wound Skin Appearance Assessed, ) Maceration -Color (Cecelia-wound Skin Appearance) Assessed -Temperature (Cecelia-wound Skin No Abnormality Appearance) (Pt Warm) -Tenderness on Palpation (Cecelia-wound No Skin Appearance) -Ulcer Cleansing Rinsed/ Irrigated with Saline -Foul Odor after Cleansing No -Anesthetic Used 4% Lidocaine Solution [Edema Assessment] -Lower Limb Edema Present Yes -Left Calf (cm) 40 -Left Ankle (cm) 22.2 WC - Nurse 2 - General Ulcer CM Notes Start: 06/10/20 10:54 Freq: Status: Active Protocol: Activity Type Activity Date Activity User E-Sign Co-Sign Detail Recorded Client Recorded Date Recorded By Document 06/17/20 10:09 [id number] 06/17/20 10:11 06/17/20 10:09 Wound Center Nurse 2 [Procedure/Treatment] #1 Left Heel- Plantar -Time 10:09 -Correct Patient Yes -Correct Side, Site, Position Yes -Correct Procedure Yes -Procedure Performed Yes -Type of Procedure Debridement -Clinical Debridement Subcutaneous -Tissue Removed Subcutaneous -Post Debridement (cm) - Length 0.9 -Post Debridement (cm) - Width 1.3 -Post Debridement (cm) - Depth 0.1 -Total Square (Post) (cm) 1.17 -Area of Debridement (cm) - Length 0.9 -Area of Debridement (cm) - Width 1.3 -Total Square (Area) (cm) 1.17 -Tunneling No -Undermining/Tunneling No -Circular Undermining No -Wound/Ulcer Outcome Not Healed -Ulcer Cleansing Rinsed/ Irrigated with Saline -Foul Odor after Cleansing No -Bioengineered Tissue Yes -Type of Bioengineered Tissue Epifix 18mm Disc -Expiration Date 02/06/25 -Product Lot Number [id number] -Percent Used 100 -Saline Lot Number [id number] -Bleeding Controlled with Pressure -Offloading Yes -Type of Offloading Total Contact Cast (TCC) - Left ($) -Treatment Response Procedure Tolerated Well -Debridement - Subq, 1st 20sq cm No -Apply Skin Sub - 1st 25 sq cm - Feet 1 -Epifix 18mm Disc 3 Query Text:18mm = 3 [See Physician Procedure note for Specifics] Pain Scale: 0-10 Numeric [Pain] -Is Patient Pain Free? Yes Musculoskeletal: No Tenderness to Palpation of Joints or Extremities, Muscle Wasting, - - Prominent plantar heel with calcaneus gait pattern. No fluctuance or bogginess on palpation. Compartments to the lower extremity remain soft to palpate Neurological: Sensory exam intact to light touch and pain Psych/Mental Status: Normal Affect, Appropriate Debridement Note Post-Debridement Measurements/Treatment - Nurse 2 - General Ulcer CM Notes Start: 06/10/20 10:54 Freq: Status: Active Protocol: Activity Type Activity Date Activity User E-Sign Co-Sign Detail Recorded Client Recorded Date Recorded By Document 06/10/20 11:22 [email or web address] [id number] 06/10/20 11:25 Document 06/17/20 10:09 [id number] 06/17/20 10:11 06/10/20 06/17/20 11:22 10:09 Wound Center Nurse 2 #1 Left Heel- Plantar -Time 11:23 10:09 -Correct Patient Yes Yes -Correct Side, Site, Position Yes Yes -Correct Procedure Yes Yes -Procedure Performed Yes Yes -Type of Procedure Debridement Debridement -Clinical Debridement Subcutaneous Subcutaneous -Tissue Removed Subcutaneous Subcutaneous -Post Debridement (cm) - Length 1.2 0.9 -Post Debridement (cm) - Width 1.4 1.3 -Post Debridement (cm) - Depth 0.2 0.1 -Total Square (Post) (cm) 1.68 1.17 -Area of Debridement (cm) - Length 1.2 0.9 -Area of Debridement (cm) - Width 1.4 1.3 -Total Square (Area) (cm) 1.68 1.17 -Tunneling No No -Undermining/Tunneling No No -Circular Undermining No No -Wound/Ulcer Outcome Not Healed Not Healed -Ulcer Cleansing Rinsed/ Rinsed/ Irrigated with Irrigated with Saline Saline -Foul Odor after Cleansing No No -Bioengineered Tissue Yes Yes -Type of Bioengineered Tissue Epifix 18mm Epifix 18mm Disc Disc -Expiration Date 02/06/25 02/06/25 -Product Lot Number [id number] -Percent Used 100 100 -Saline Lot Number [id number] -Bleeding Controlled with Pressure Pressure -Offloading Yes Yes -Type of Offloading Total Contact Total Contact Cast (TCC) - Cast (TCC) - Left ($) Left ($) -Treatment Response Procedure Procedure Tolerated Well Tolerated Well -Debridement - Subq, 1st 20sq cm No No -Apply Skin Sub - 1st 25 sq cm - Feet 1 1 -Epifix 18mm Disc 3 3 Query Text:18mm = 3 Pain Scale: 0-10 Numeric Is Patient Pain Free? Yes Yes - Nurse 3 - General Ulcer D/C NN Start: 06/10/20 10:54 Freq: Status: Active Protocol: Activity Type Activity Date Activity User E-Sign Co-Sign Detail Recorded Client Recorded Date Recorded By Document 06/10/20 11:43 RB [id number] 06/10/20 11:44 RB 06/10/20 11:43 Wound Care Nurse 3 #1 Left Heel- Plantar -Other Dressing TCC primary layer Treatment Response Procedure Tolerated Well Pain Scale: 0-10 Numeric Is Patient Pain Free? Yes Teaching: Wound Center Eliminating Foot Pressure -Person Taught Patient -Teaching Method Discussion -Response to teaching Verbalize understanding WC - Visit Discharge Discharge Condition Stable Transportation Private Auto Medication Reconcilliation completed & No provided to patient/care provider Clinical Summary of Care Provided Yes Wound debrided: plantar heel Laterality: Left Type of Debridement: Excisional debridement Anesthesia Used: 5% Lidocaine Gel Depth: in the subcutaneous layer Percentage of wound debrided: 100 Instrument Used: #15 blade Tissue Removed: fibrous, devitalized subcutaneous, biofilm, slough Severity: Fat Layer Exposed Amount of bleeding with debridement: Mild Bleeding Controlled with: Pressure Patient tolerated procedure well Assessment/Plan Active Problems Lupus (systemic lupus erythematosus) (Chronic) Ulcer of left foot with fat layer exposed (Chronic) Calcaneal gait (Chronic) left Delayed wound healing (Chronic) Malnutrition (Chronic) Assessment: Left heel ulcer, chronic pressure with delayed healing. Lupus. Lower extremity edema. Left calcaneus gait. MRSA infection with cellulitis, improving Plan: I reviewed and discussed her case. Subcutaneous excisional debridement was performed as noted in the clinical panel. She has some local signs of infection that remain resolved. She completed an oral antibiotic 100 mg doxycycline bid for about two weeks. She was reassured that there are no local signs of infection today. I recommend application of advanced wound healing product, epi-fix, and total contact cast today. The indication, benefit, application process, and anticipated healing time management were reviewed for the epi-fix and total contact cast. She is amendable to proceed. The epi-fix was applied according standard protocol was further secured with a wound veil and Steri-Strips. Additionally the total contact cast was applied according standard protocol in a well-padded neutral position. She tolerated both of these procedures well. She was advised to keep these clean dry and intact until follow-up next week. I recommended use of a shower bag. She was advised to maintain a good balance whole food diet with adequate protein and nutrients to optimize healing. A prescription for Yosvany was provided and she was advised on proper use. I offered her a quality control engineering technician referral as well and she canceled his appointment. We reviewed this in detail again today and an updated referral was sent over. She is now amendable to start to aid in faster healing and to prevent recurrence. Also to help with weight reduction and reduce overall body inflammation which may be contributing to her chronic fatigue and pain. She understands her systemic inflammatory disease of lupus may also be contributing to delayed healing. She will avoid antirheumatic medications at this time. I will reach out to her mold stamper to discuss the details of this medication hold. She was advised to avoid prednisone use and will also hold the Plaquenil at this time unless she has an intense flareup. This was reviewed verbally with Dr. Pratt. We discussed conservative or surgical intervention. Performing a flap was discussed including with a bilobed rotational versus other rotational flap. My concern with this is that she has a calcaneus gait and she is prone to further breakdown even with that surgical intervention. I offered her a surgery to reapproximate and shorten her Achilles tendon. It is noted she had prior surgery in this area with an injury in the early postoperative setting. She will consider this and is not electing to proceed forward with this at this time. I also recommend she gets screening for venous insufficiency completed if she has not already had this done at an outside facility. I answered all of her questions. She was advised to return to the wound healing center in 1 week. To call sooner if she has any questions or concerns or any evidence of infection development.
[2020-06-24 10:48] VITALS: BP 121/72; PULSE 94; RESP 18; TEMP 36.1; BMI 39.5
--- NOTE | 2020-06-24 13:13 | PN.PCM_ITS ---
(1) Ulcer of left foot with fat layer exposed Status: Chronic Code(s): L97.522 - Non-pressure chronic ulcer of other part of left foot with fat layer exposed (2) Calcaneal gait Status: Chronic Code(s): R26.89 - Other abnormalities of gait and mobility Comment: left (3) Delayed wound healing Status: Chronic Code(s): T14.8XXD - Other injury of unspecified body region, subsequent encounter (4) Malnutrition Status: Chronic Code(s): E46 - Unspecified protein-calorie malnutrition (5) MRSA (methicillin resistant staph aureus) culture positive Status: Resolved Code(s): Z22.322 - Carrier or suspected carrier of Methicill in resistant Staphylococcus aureus (6) Cellulitis of left lower limb Status: Resolved Code(s): L03.116 - Cellulitis of left lower limb Comment: Improving, MRSA (7) Lupus (systemic lupus erythematosus) Status: Chronic Code(s): M32.9 - Systemic lupus erythematosus, unspecified Type of Wound Date of Service: 06/24/20 Chief Complaint: Left heel ulcer History of Wound: This pleasant 54-year-old female with significant past medical history of lupus, history of panic attack, depression, history of delayed healing, hyperlipidemia, irritable bowel syndrome, memory loss, restless leg syndrome, and obstructive sleep apnea is here for follow-up of left heel ulcer. She denies fever, chill, nausea, vomiting. Her left foot pain is decreased. She has completed doxycycline as advised. She has kept her total contact cast and advance weaning product intact since last week. She is amendable to proceed with additional application today. She has discontinued her lupus medication as advised (managed by rheumatology). Progress of Wound: Improving - Physical Exam Vital Signs Temp Pulse Resp BP 96.9 F L 94 18 121/72 H 06/24/20 10:48 06/24/20 10:48 06/24/20 10:48 06/24/20 10:48 General: Alert, Oriented x3, Cooperative, No apparent distress HEENT: Atraumatic Extremities: No cyanosis, Capillary Refill Less than 3 Seconds, No Calf Tenderness, Diminished Peripheral Pulses, Edema Skin: Ulcer/ Wound - No purulence, erythema, streaking, odor, infection. Adjacent skin is hairless and atrophic Wound Measurements and Assessment WC - Nurse 1 - General Ulcer Measurement Start: 06/10/20 10:54 Freq: Status: Active Protocol: Activity Type Activity Date Activity User E-Sign Co-Sign Detail Recorded Client Recorded Date Recorded By Document 06/24/20 10:48 SCOTTIE [id number] 06/24/20 11:03 DL 06/24/20 10:48 Wound Center Nurse 1 [Ulcer Assessment] #1 Left Heel- Plantar -Current Size (cm) - Length 0.8 -Current Size (cm) - Width 1.2 -Current Size (cm) - Depth 0.2 -Total Square Cm 0.96 -Photo Taken No -Exudate Amt Small -Exudate Type Serosanguineous -Wound Margin Distinct, Outline Attached -Granulation Amt Medium (34-66%) -Granulation Quality Red -Necrosis Amt Medium (34-66%) -Necrotic Tissue Type Adherent Slough -Structure Exposed N/A -Texture (Cecelia-wound Skin Appearance) Scarring -Moisture (Cecelia-wound Skin Appearance Maceration ) -Color (Cecelia-wound Skin Appearance) No Abnormality -Temperature (Cecelia-wound Skin No Abnormality Appearance) (Pt Warm) -Tenderness on Palpation (Cecelia-wound No Skin Appearance) -Ulcer Cleansing Wound Cleanser -Foul Odor after Cleansing No -Anesthetic Used 4% Lidocaine Solution WC - Nurse 2 - General Ulcer CM Notes Start: 06/10/20 10:54 Freq: Status: Active Protocol: Activity Type Activity Date Activity User E-Sign Co-Sign Detail Recorded Client Recorded Date Recorded By Document 06/24/20 11:19 STEPHANIE [id number] 06/24/20 11:22 06/24/20 11:19 Wound Center Nurse 2 [Procedure/Treatment] -Time 11:19 -Correct Patient Yes -Correct Side, Site, Position Yes -Correct Procedure Yes -Procedure Performed Yes -Type of Procedure Debridement -Clinical Debridement Subcutaneous -Tissue Removed Subcutaneous -Post Debridement (cm) - Length 0.8 -Post Debridement (cm) - Width 1.2 -Post Debridement (cm) - Depth 0.2 -Total Square (Post) (cm) 0.96 -Area of Debridement (cm) - Length 0.8 -Area of Debridement (cm) - Width 1.2 -Total Square (Area) (cm) 0.96 -Tunneling No -Undermining/Tunneling No -Circular Undermining No -Wound/Ulcer Outcome Not Healed -Ulcer Cleansing Rinsed/ Irrigated with Saline -Foul Odor after Cleansing No -Bioengineered Tissue Yes -Type of Bioengineered Tissue Epifix 18mm Disc -Expiration Date 03/09/25 -Product Lot Number [id number] -Percent Used 100 -Saline Lot Number [id number] -Bleeding Controlled with Pressure -Offloading Yes -Type of Offloading Total Contact Cast (TCC) - Left ($) -Treatment Response Procedure Tolerated Well -Debridement - Subq, 1st 20sq cm No -Apply Skin Sub - 1st 25 sq cm - Feet 1 -Epifix 18mm Disc 3 Query Text:18mm = 3 [See Physician Procedure note for Specifics] Pain Scale: 0-10 Numeric [Pain] -Is Patient Pain Free? Yes - Nurse 3 - General Ulcer D/C NN Start: 06/10/20 10:54 Freq: Status: Active Protocol: Activity Type Activity Date Activity User E-Sign Co-Sign Detail Recorded Client Recorded Date Recorded By Document 06/24/20 11:31 [id number] 06/24/20 11:32 06/24/20 11:31 Wound Care Nurse 3 [Wound Dressing] #1 Left Heel- Plantar -Ulcer Cleansing Not Cleansed -Foul Odor after Cleansing No -Negative Pressure Wound Therapy N/A -Other Dressing epifix -Primary Dressing Covered/Secured Dry Gauze, with Secured with Tape -Other Covering TCC Pain Scale: 0-10 Numeric [Pain] -Is Patient Pain Free? Yes - Visit Discharge [Visit Discharge Information] -Discharge Condition Stable -Ambulatory Status Ambulatory -Transportation Private Auto -Accompanied by self -Medication Reconcilliation completed Yes & provided to patient/care provider -Clinical Summary of Care Provided Yes Musculoskeletal: No Tenderness to Palpation of Joints or Extremities, Muscle Wasting Neurological: - - Lack of normal epicritic sensation light touch is consistent with neuropathy status Psych/Mental Status: Normal Affect, Appropriate Debridement Note Post-Debridement Measurements/Treatment - Nurse 2 - General Ulcer CM Notes Start: 06/10/20 10:54 Freq: Status: Active Protocol: Activity Type Activity Date Activity User E-Sign Co-Sign Detail Recorded Client Recorded Date Recorded By Document 06/10/20 11:22 [id number] 06/10/20 11:25 Document 06/17/20 10:09 [id number] 06/17/20 10:11 Document 06/24/20 11:19 [id number] 06/24/20 11:22 06/10/20 06/17/20 06/24/20 11:22 10:09 11:19 Wound Center Nurse 2 #1 Left Heel- Plantar -Time 11:23 10:09 11:19 -Correct Patient Yes Yes Yes -Correct Side, Site, Position Yes Yes Yes -Correct Procedure Yes Yes Yes -Procedure Performed Yes Yes Yes -Type of Procedure Debridement Debridement Debridement -Clinical Debridement Subcutaneous Subcutaneous Subcutaneous -Tissue Removed Subcutaneous Subcutaneous Subcutaneous -Post Debridement (cm) - Length 1.2 0.9 0.8 -Post Debridement (cm) - Width 1.4 1.3 1.2 -Post Debridement (cm) - Depth 0.2 0.1 0.2 -Total Square (Post) (cm) 1.68 1.17 0.96 -Area of Debridement (cm) - Length 1.2 0.9 0.8 -Area of Debridement (cm) - Width 1.4 1.3 1.2 -Total Square (Area) (cm) 1.68 1.17 0.96 -Tunneling No No No -Undermining/Tunneling No No No -Circular Undermining No No No -Wound/Ulcer Outcome Not Healed Not Healed Not Healed -Ulcer Cleansing Rinsed/ Rinsed/ Rinsed/ Irrigated with Irrigated with Irrigated with Saline Saline Saline -Foul Odor after Cleansing No No No -Bioengineered Tissue Yes Yes Yes -Type of Bioengineered Tissue Epifix 18mm Epifix 18mm Epifix 18mm Disc Disc Disc -Expiration Date 02/06/25 02/06/25 03/09/25 -Product Lot Number [id number] -Percent Used 100 100 100 -Saline Lot Number [id number] -Bleeding Controlled with Pressure Pressure Pressure -Offloading Yes Yes Yes -Type of Offloading Total Contact Total Contact Total Contact Cast (TCC) - Cast (TCC) - Cast (TCC) - Left ($) Left ($) Left ($) -Treatment Response Procedure Procedure Procedure Tolerated Well Tolerated Well Tolerated Well -Debridement - Subq, 1st 20sq cm No No No -Apply Skin Sub - 1st 25 sq cm - Feet 1 1 1 -Epifix 18mm Disc 3 3 3 Query Text:18mm = 3 Pain Scale: 0-10 Numeric Is Patient Pain Free? Yes Yes Yes - Nurse 3 - General Ulcer D/C NN Start: 06/10/20 10:54 Freq: Status: Active Protocol: Activity Type Activity Date Activity User E-Sign Co-Sign Detail Recorded Client Recorded Date Recorded By Document 06/10/20 11:43 RB [id number] 06/10/20 11:44 RB Document 06/24/20 11:31 CS [id number] 06/24/20 11:32 CS 06/10/20 06/24/20 11:43 11:31 Wound Care Nurse 3 #1 Left Heel- Plantar -Ulcer Cleansing Not Cleansed -Foul Odor after Cleansing No -Negative Pressure Wound Therapy N/A -Other Dressing TCC primary epifix layer -Primary Dressing Covered/Secured with Dry Gauze, Secured with Tape -Other Covering TCC Treatment Response Procedure Tolerated Well Pain Scale: 0-10 Numeric Is Patient Pain Free? Yes Yes Teaching: Wound Center Eliminating Foot Pressure -Person Taught Patient -Teaching Method Discussion -Response to teaching Verbalize understanding WC - Visit Discharge Discharge Condition Stable Stable Ambulatory Status Ambulatory Transportation Private Auto Private Auto Accompanied by self Medication Reconcilliation completed & No Yes provided to patient/care provider Clinical Summary of Care Provided Yes Yes Wound debrided: plantar heel Laterality: Left Type of Debridement: Excisional debridement Anesthesia Used: 5% Lidocaine Gel Depth: in the subcutaneous layer Percentage of wound debrided: 100 Instrument Used: #15 blade Tissue Removed: fibrous, devitalized subcutaneous, biofilm, slough Severity: Fat Layer Exposed Amount of bleeding with debridement: Mild Bleeding Controlled with: Pressure Patient tolerated procedure well Assessment/Plan Assessment: Left heel ulcer, chronic pressure with delayed healing. Lupus. Lower extremity edema. Left calcaneus gait. MRSA infection with cellulitis, improving Plan: I reviewed and discussed her case. Subcutaneous excisional debridement was performed as noted in the clinical panel. She has some local signs of infection that remain resolved. She completed an oral antibiotic 100 mg doxycycline bid for about two weeks. She was reassured that there are no local signs of infection today. I recommend application of advanced wound healing product, epi-fix, and total contact cast today. The indication, benefit, application process, and anticipated healing time management were reviewed for the epi-fix and total contact cast. She is amendable to proceed. The epi-fix was applied according standard protocol was further secured with a wound veil and Steri-Strips. Additionally the total contact cast was applied according standard protocol in a well-padded neutral position. She tolerated both of these procedures well. She was advised to keep these clean dry and intact until follow-up next week. I recommended use of a shower bag. She was advised to maintain a good balance whole food diet with adequate protein and nutrients to optimize healing. A prescription for Yosvany was provided and she was advised on proper use. I offered her a transportation design engineer referral as well and she canceled his appointment. We reviewed this in detail again today and an updated referral was sent over. She is now amendable to start to aid in faster healing and to prevent recurrence. Also to help with weight reduction and reduce overall body inflammation which may be contributing to her chronic fatigue and pain. She understands her systemic inflammatory disease of lupus may also be contributing to delayed healing. She will avoid antirheumatic medications at this time. I w ill reach out to her eyeglass frames polisher to discuss the details of this medication hold. She was advised to avoid prednisone use and will also hold the Plaquenil at this time unless she has an intense flareup. This have reviewed verbally with Dr. Pratt. We discussed conservative or surgical intervention. Performing a flap was discussed including with a bilobed rotational versus other rotational flap. My concern with this is that she has a calcaneus gait and she is prone to further breakdown even with that surgical intervention. I offered her a surgery to reapproximate and shorten her Achilles tendon. It is noted she had prior surgery in this area with an injury in the early postoperative setting. She will consider this and is not electing to proceed forward with this at this time. I also recommend she gets screening for venous insufficiency completed if she has not already had this done at an outside facility. I answered all of her questions. She was advised to return to the wound healing center in 1 week. To call sooner if she has any questions or concerns or any evidence of infection development.
[2020-07-01 12:55] VITALS: BP 123/72; PULSE 92; RESP 20; TEMP 36.6; BMI 39.5
[2020-07-01 13:26] VITALS: BP 97/64; PULSE 92; RESP 16
--- NOTE | 2020-07-01 13:44 | PCM.WC.PN ---
(1) Ulcer of left foot with fat layer exposed Status: Chronic Current Visit: Yes Code(s): L97.522 - Non-pressure chronic ulcer of other part of left foot with fat layer exposed (2) Calcaneal gait Status: Chronic Current Visit: Yes Code(s): R26.89 - Other abnormalities of gait and mobility Comment: left (3) Delayed wound healing Status: Chronic Current Visit: Yes Code(s): T14.8XXD - Other injury of unspecified body region, subsequent encounter (4) Malnutrition Status: Chronic Current Visit: Yes Code(s): E46 - Unspecified protein-calorie malnutrition (5) MRSA (methicillin resistant staph aureus) culture positive Status: Resolved Current Visit: Yes Code(s): Z22.322 - Carrier or suspected carrier of Methicillin resistant Staphylococcus aureus (6) Cellulitis of left lower limb Status: Resolved Current Visit: Yes Code(s): L03.116 - Cellulitis of left lower limb Comment: Improving, MRSA (7) Lupus (systemic lupus erythematosus) Status: Chronic Current Visit: Yes Code(s): M32.9 - Systemic lupus erythematosus, unspecified Type of Wound Date of Service: 07/01/20 Chief Complaint: Left heel ulcer History of Wound: This pleasant 54-year-old female with significant past medical history of lupus, history of panic attack, depression, history of delayed healing, hyperlipidemia, irritable bowel syndrome, memory loss, restless leg syndrome, and obstructive sleep apnea is here for follow-up of left heel ulcer. She denies fever, chill, nausea, vomiting. Her left foot pain is decreased. She has completed doxycycline as advised. She has discontinued her lupus medication as advised (managed by rheumatology). She asked if Cymbalta could potentially be limiting her wound healing. She reports that her foot has been extra sweaty and there is an odor noted with cast removal. Progress of Wound: Improving - Physical Exam Vital Signs Temp Pulse Resp BP 97.8 F 92 16 97/64 07/01/20 12:55 07/01/20 13:26 07/01/20 13:26 07/01/20 13:26 General: Alert, Oriented x3, Cooperative, No apparent distress Extremities: No cyanosis, Capillary Refill Less than 3 Seconds, No Calf Tenderness, Diminished Peripheral Pulses, Edema Skin: Ulcer/ Wound - No purulence, erythema, streaking, odor, infection. The adjacent skin has reduced inflammation and is hairless, atrophic, and with peripheral skin peeling. There is no longer any deep tissue exposed, necrosis or maceration. Wound Measurements and Assessment - Nurse 1 - General Ulcer Measurement Start: 06/10/20 10:54 Freq: Status: Active Protocol: Activity Type Activity Date Activity User E-Sign Co-Sign Detail Recorded Client Recorded Date Recorded By Document 07/01/20 12:55 SCOTTIE [id number] 07/01/20 13:08 07/01/20 12:55 Wound Center Nurse 1 [Ulcer Assessment] #1 Left Heel- Plantar -Current Size (cm) - Length 0.8 -Current Size (cm) - Width 1 -Current Size (cm) - Depth 0.2 -Total Square Cm 0.8 -Photo Taken No -Exudate Amt Small -Exudate Type Serosanguineous -Wound Margin Distinct, Outline Attached -Granulation Amt Large (67-100%) -Granulation Quality [place] -Necrosis Amt Small (1-33%) -Necrotic Tissue Type Adherent Slough -Structure Exposed N/A -Texture (Cecelia-wound Skin Appearance) Callus,Scarring -Moisture (Cecelia-wound Skin Appearance Dry/Scaly ) -Color (Cecelia-wound Skin Appearance) No Abnormality -Temperature (Cecelia-wound Skin No Abnormality Appearance) (Pt Warm) -Tenderness on Palpation (Cecelia-wound No Skin Appearance) -Ulcer Cleansing Wound Cleanser -Foul Odor after Cleansing No -Anesthetic Used 4% Lidocaine Solution - Nurse 2 - General Ulcer CM Notes Start: 06/10/20 10:54 Freq: Status: Active Protocol: Activity Type Activity Date Activity User E-Sign Co-Sign Detail Recorded Client Recorded Date Recorded By Document 07/01/20 13:18 [id number] 07/01/20 13:24 07/01/20 13:18 Wound Center Nurse 2 [Procedure/Treatment] -Time 13:18 -Correct Patient Yes -Correct Side, Site, Position Yes -Correct Procedure Yes -Procedure Performed Yes -Type of Procedure Debridement -Clinical Debridement Subcutaneous -Tissue Removed Subcutaneous -Post Debridement (cm) - Length 0.9 -Post Debridement (cm) - Width 1.1 -Post Debridement (cm) - Depth 0.2 -Total Square (Post) (cm) 0.99 -Area of Debridement (cm) - Length 0.9 -Area of Debridement (cm) - Width 1.1 -Total Square (Area) (cm) 0.99 -Tunneling No -Undermining/Tunneling No -Circular Undermining No -Wound/Ulcer Outcome Not Healed -Ulcer Cleansing Rinsed/ Irrigated with Saline -Foul Odor after Cleansing No -Bioengineered Tissue No -Bleeding Controlled with Pressure -Offloading Yes -Type of Offloading Knee Walker -Treatment Response Procedure Tolerated Well -Debridement - Subq, 1st 20sq cm Yes [See Physician Procedure note for Specifics] Pain Scale: 0-10 Numeric [Pain] -Is Patient Pain Free? Yes - Nurse 3 - General Ulcer D/C NN Start: 06/10/20 10:54 Freq: Status: Active Protocol: Activity Type Activity Date Activity User E-Sign Co-Sign Detail Recorded Client Recorded Date Recorded By Document 07/01/20 13:26 [facility] [id number] 07/01/20 13:28 [facility] 07/01/20 13:26 Wound Care Nurse 3 [Wound Dressing] #1 Left Heel- Plantar -Ulcer Cleansing Rinsed/ Irrigated with Saline -Foul Odor after Cleansing No -Primary Dressing Applied Promogran Neida Matter -Primary Dressing Covered/Secured Dry Gauze & with Roll Gauze, Secured with Tape -Promogran Neida Matter 1 [Post Procedure Tolerated] -Treatment Response Procedure Tolerated Well Vital Signs [Pulse] -Pulse Rate (60-100) 92 -Pulse Location Monitor [Respirations] -Respiratory Rate (12-18) 16 -Respiratory rate source Observation -Oxygen Delivery Method Room Air [Blood Pressure] -Blood Pressure (90/60-120/80) 97/64 -Blood Pressure Mean (mm Hg) 75 -Source Monitor -Position Sitting -Blood Pressure Location Left Arm Pain Scale: 0-10 Numeric [Pain] -Is Patient Pain Free? Yes - Visit Discharge [Visit Discharge Information] -Discharge Condition Stable -Ambulatory Status Ambulatory -Transportation Private Auto Musculoskeletal: No Tenderness to Palpation of Joints or Extremities, Muscle Wasting, - - Calcaneus gait Neurological: Sensory exam intact to light touch and pain Psych/Mental Status: Normal Affect, Appropriate Debridement Note Post-Debridement Measurements/Treatment WC - Nurse 2 - General Ulcer CM Notes Start: 06/10/20 10:54 Freq: Status: Active Protocol: Activity Type Activity Date Activity User E-Sign Co-Sign Detail Recorded Client Recorded Date Recorded By Document 06/10/20 11:22 [id number] 06/10/20 11:25 Document 06/17/20 10:09 [id number] 06/17/20 10:11 Document 06/24/20 11:19 [id number] 06/24/20 11:22 Document 07/01/20 13:18 [id number] 07/01/20 13:24 06/10/20 06/17/20 06/24/20 11:22 10:09 11:19 Wound Center Nurse 2 #1 Left Heel- Plantar -Time 11:23 10:09 11:19 -Correct Patient Yes Yes Yes -Correct Side, Site, Position Yes Yes Yes -Correct Procedure Yes Yes Yes -Procedure Performed Yes Yes Yes -Type of Procedure Debridement Debridement Debridement -Clinical Debridement Subcutaneous Subcutaneous Subcutaneous -Tissue Removed Subcutaneous Subcutaneous Subcutaneous -Post Debridement (cm) - Length 1.2 0.9 0.8 -Post Debridement (cm) - Width 1.4 1.3 1.2 -Post Debridement (cm) - Depth 0.2 0.1 0.2 -Total Square (Post) (cm) 1.68 1.17 0.96 -Area of Debridement (cm) - Length 1.2 0.9 0.8 -Area of Debridement (cm) - Width 1.4 1.3 1.2 -Total Square (Area) (cm) 1.68 1.17 0.96 -Tunneling No No No -Undermining/Tunneling No No No -Circular Undermining No No No -Wound/Ulcer Outcome Not Healed Not Healed Not Healed -Ulcer Cleansing Rinsed/ Rinsed/ Rinsed/ Irrigated with Irrigated with Irrigated with Saline Saline Saline -Foul Odor after Cleansing No No No -Bioengineered Tissue Yes Yes Yes -Type of Bioengineered Tissue Epifix 18mm Epifix 18mm Epifix 18mm Disc Disc Disc -Expiration Date 02/06/25 02/06/25 03/09/25 -Product Lot Number [id number] -Percent Used 100 100 100 -Saline Lot Number [id number] -Bleeding Controlled with Pressure Pressure Pressure -Offloading Yes Yes Yes -Type of Offloading Total Contact Total Contact Total Contact Cast (TCC) - Cast (TCC) - Cast (TCC) - Left ($) Left ($) Left ($) -Treatment Response Procedure Procedure Procedure Tolerated Well Tolerated Well Tolerated Well -Debridement - Subq, 1st 20sq cm No No No -Apply Skin Sub - 1st 25 sq cm - Feet 1 1 1 -Epifix 18mm Disc 3 3 3 Pain Scale: 0-10 Numeric Is Patient Pain Free? Yes Yes Yes 07/01/20 13:18 Wound Center Nurse 2 #1 Left Heel- Plantar -Time 13:18 -Correct Patient Yes -Correct Side, Site, Position Yes -Correct Procedure Yes -Procedure Performed Yes -Type of Procedure Debridement -Clinical Debridement Subcutaneous -Tissue Removed Subcutaneous -Post Debridement (cm) - Length 0.9 -Post Debridement (cm) - Width 1.1 -Post Debridement (cm) - Depth 0.2 -Total Square (Post) (cm) 0.99 -Area of Debridement (cm) - Length 0.9 -Area of Debridement (cm) - Width 1.1 -Total Square (Area) (cm) 0.99 -Tunneling No -Undermining/Tunneling No -Circular Undermining No -Wound/Ulcer Outcome Not Healed -Ulcer Cleansing Rinsed/ Irrigated with Saline -Foul Odor after Cleansing No -Bioengineered Tissue No -Type of Bioengineered Tissue -Expiration Date -Product Lot Number -Percent Used -Saline Lot Number -Bleeding Controlled with Pressure -Offloading Yes -Type of Offloading Knee Walker -Treatment Response Procedure Tolerated Well -Debridement - Subq, 1st 20sq cm Yes -Apply Skin Sub - 1st 25 sq cm - Feet -Epifix 18mm Disc Pain Scale: 0-10 Numeric Is Patient Pain Free? Yes - Nurse 3 - General Ulcer D/C NN Start: 06/10/20 10:54 Freq: Status: Active Protocol: Activity Type Activity Date Activity User E-Sign Co-Sign Detail Recorded Client Recorded Date Recorded By Document 06/10/20 11:43 RB [id number] 06/10/20 11:44 RB Document 06/24/20 11:31 CS [id number] 06/24/20 11:32 CS Document 07/01/20 13:26 BM [id number] 07/01/20 13:28 BMF 06/10/20 06/24/20 07/01/20 11:43 11:31 13:26 Wound Care Nurse 3 #1 Left Heel- Plantar -Ulcer Cleansing Not Cleansed Rinsed/ Irrigated with Saline -Foul Odor after Cleansing No No -Negative Pressure Wound Therapy N/A -Primary Dressing Applied Promogran Neida Matter -Other Dressing TCC primary epifix layer -Primary Dressing Covered/Secured with Dry Gauze, Dry Gauze & Secured with Roll Gauze, Tape Secured with Tape -Other Covering TCC -Promogran Neida Matter 1 Treatment Response Procedure Procedure Tolerated Well Tolerated Well Pain Scale: 0-10 Numeric Is Patient Pain Free? Yes Yes Yes Vital Signs Pulse Rate (60-100) 92 Pulse Location Monitor Respiratory Rate (12-18) 16 Respiratory rate source Observation Oxygen Delivery Method Room Air Blood Pressure (90/60-120/80) 97/64 Blood Pressure Mean (mm Hg) 75 Source Monitor Position Sitting Blood Pressure Location Left Arm Teaching: Wound Center Eliminating Foot Pressure -Person Taught Patient -Teaching Method Discussion -Response to teaching Verbalize understanding WC - Visit Discharge Discharge Condition Stable Stable Stable Ambulatory Status Ambulatory Ambulatory Transportation Private Auto Private Auto Private Auto Accompanied by self Medication Reconcilliation completed & No Yes provided to patient/care provider Clinical Summary of Care Provided Yes Yes Wound debrided: plantar heel Laterality: Left Type of Debridement: Excisional debridement Anesthesia Used: 5% Lidocaine Gel Depth: in the subcutaneous layer Percentage of wound debrided: 100 Instrument Used: #15 blade Tissue Removed: fibrous, devitalized subcutaneous, biofilm, slough Severity: Fat Layer Exposed Amount of bleeding with debridement: Mild Bleeding Controlled with: Pressure Patient tolerated procedure well Assessment/Plan Active Problems Lupus (systemic lupus erythematosus) (Chronic) Ulcer of left foot with fat layer exposed (Chronic) Calcaneal gait (Chronic) left Delayed wound healing (Chronic) Malnutrition (Chronic) Assessment: Left heel ulcer, chronic pressure with delayed healing. Lupus. Lower extremity edema. Left calcaneus gait. MRSA infection with cellulitis, improving Plan: I reviewed and discussed her case. Subcutaneous excisional debridement was performed as noted in the clinical panel. She was reassured that there are no local signs of infection today. She is amendable to taking 1 week break from the total contact cast and advanced wound healing application tomorrow better clean her foot daily due to her skin peeling and to address her additional foot sweating. To change dressing daily with Neida and to wash with antibacterial soap and water daily. Additional application of epi-fix and total contact cast to be considered next week. To maintain strict nonweightbearing status with the knee roller. She was advised to maintain a good balance whole food diet with adequate protein and nutrients to optimize healing. A prescription for Yosvany was provided and she was advised on proper use. I offered her a geodetic surveyor referral as well and she canceled this appointment. She is trying to reschedule. She understands her systemic inflammatory disease of lupus may also be contributing to delayed healing. She will avoid antirheumatic medications at this time. She was advised to avoid prednisone use and will also hold the Plaquenil at this time unless she has an intense flareup. This have reviewed verbally with Dr. Pratt. I do not anticipate cymbalta is slowing her healing progress however will confirm at her follow up. We discussed conservative or surgical intervention. Performing a flap was discussed including with a bilobed rotational versus other rotational flap. My concern with this is that she has a calcaneus gait and she is prone to further breakdown even with that surgical intervention. I offered her a surgery to reapproximate and shorten her Achilles tendon. It is noted she had prior surgery in this area with an injury in the early postoperative setting. She will consider this and is not electing to proceed forward with this at this time. I also recommend she gets screening for venous insufficiency completed if she has not already had this done at an outside facility. I answered all of her questions. She was advised to return to the wound healing center in 1 week. To call sooner if she has any questions or concerns or any evidence of infection development.
[2020-07-08 13:23] VITALS: BP 140/87; PULSE 99; RESP 16; TEMP 36.2; BMI 39.5
[2020-07-08 14:12] VITALS: BP 144/75; PULSE 90; RESP 16
--- NOTE | 2020-07-08 21:29 | PN.PCM_ITS ---
(1) Ulcer of left foot with fat layer exposed Status: Chronic Code(s): L97.522 - Non-pressure chronic ulcer of other part of left foot with fat layer exposed (2) Calcaneal gait Status: Chronic Code(s): R26.89 - Other abnormalities of gait and mobility Comment: left (3) Delayed wound healing Status: Chronic Code(s): T14.8XXD - Other injury of unspecified body region, subsequent encounter (4) Malnutrition Status: Chronic Code(s): E46 - Unspecified protein-calorie malnutrition (5) MRSA (methicillin resistant staph aureus) culture positive Status: Resolved Code(s): Z22.322 - Carrier or suspected carrier of Methicill in resistant Staphylococcus aureus (6) Cellulitis of left lower limb Status: Resolved Code(s): L03.116 - Cellulitis of left lower limb Comment: Improving, MRSA (7) Lupus (systemic lupus erythematosus) Status: Chronic Code(s): M32.9 - Systemic lupus erythematosus, unspecified Type of Wound Date of Service: 07/08/20 Chief Complaint: Left heel ulcer History of Wound: This pleasant 54-year-old female with significant past medical history of lupus, history of panic attack, depression, history of delayed healing, hyperlipidemia, irritable bowel syndrome, memory loss, restless leg syndrome, and obstructive sleep apnea is here for follow-up of left heel ulcer. She denies fever, chill, nausea, vomiting. Her left foot pain is decreased. She has completed doxycycline as advised. She has discontinued her lupus medication as advised (managed by rheumatology). She took a break from a total contact cast last week. Progress of Wound: Stable - Physical Exam Vital Signs Temp Pulse Resp BP 97.2 F L 90 16 144/75 H 07/08/20 13:23 07/08/20 14:12 07/08/20 14:12 07/08/20 14:12 General: Alert, Oriented x3, Cooperative, No apparent distress HEENT: Atraumatic Extremities: No cyanosis, Capillary Refill Less than 3 Seconds, No Calf Tenderness, Diminished Peripheral Pulses, Edema Skin: Ulcer/ Wound - No purulence, erythema, string, odor, infection. No mounika- ulcer inflammation. The ulcer depth is slightly deeper this week; she reports she struggles to keep weight off of this. Her adjacent skin is atrophic and hairless Wound Measurements and Assessment WC - Nurse 1 - General Ulcer Measurement Start: 06/10/20 10:54 Freq: Status: Active Protocol: Activity Type Activity Date Activity User E-Sign Co-Sign Detail Recorded Client Recorded Date Recorded By Document 07/08/20 13:23 [facility] [id number] 07/08/20 13:26 [facility] 07/08/20 13:23 Wound Center Nurse 1 [Ulcer Assessment] #1 Left Heel- Plantar -Combined with other wound No -Current Size (cm) - Length 0.8 -Current Size (cm) - Width 1.3 -Current Size (cm) - Depth 0.4 -Total Square Cm 1.04 -Photo Taken No -Epithelialization None Present -Tunneling No -Undermining/Tunneling No -Circular Undermining No -Exudate Amt Small -Exudate Type Serosanguineous -Wound Margin Distinct, Outline Attached -Granulation Amt Small (1-33%) -Granulation Quality Red -Slough/Fibrin Yes -Necrosis Amt Large (67-100%) -Necrotic Tissue Type Adherent Slough -Texture (Mounika-wound Skin Appearance) Assessed, Scarring -Moisture (Mounika-wound Skin Appearance Assessed,Dry/ ) Scaly -Color (Mounika-wound Skin Appearance) Assessed -Temperature (Mounika-wound Skin No Abnormality Appearance) (Pt Warm) -Tenderness on Palpation (Mounika-wound No Skin Appearance) -Ulcer Cleansing Rinsed/ Irrigated with Saline -Foul Odor after Cleansing No -Anesthetic Used 4% Lidocaine Solution - Nurse 2 - General Ulcer CM Notes Start: 06/10/20 10:54 Freq: Status: Active Protocol: Activity Type Activity Date Activity User E-Sign Co-Sign Detail Recorded Client Recorded Date Recorded By Document 07/08/20 13:48 [id number] 07/08/20 13:53 07/08/20 13:48 Wound Center Nurse 2 [Procedure/Treatment] -Time 13:48 -Correct Patient Yes -Correct Side, Site, Position Yes -Correct Procedure Yes -Procedure Performed Yes -Type of Procedure Debridement -Clinical Debridement Subcutaneous -Tissue Removed Subcutaneous -Post Debridement (cm) - Length 0.8 -Post Debridement (cm) - Width 1.4 -Post Debridement (cm) - Depth 0.4 -Total Square (Post) (cm) 1.12 -Area of Debridement (cm) - Length 0.8 -Area of Debridement (cm) - Width 1.4 -Total Square (Area) (cm) 1.12 -Tunneling No -Undermining/Tunneling No -Circular Undermining No -Wound/Ulcer Outcome Not Healed -Ulcer Cleansing Rinsed/ Irrigated with Saline -Foul Odor after Cleansing No -Bioengineered Tissue Yes -Type of Bioengineered Tissue Epifix 18mm Disc -Expiration Date 03/09/25 -Product Lot Number [id number] -Percent Used 100 -Saline Lot Number [id number] -Bleeding Controlled with Pressure -Offloading Yes -Type of Offloading Total Contact Cast (TCC) - Left ($) -Treatment Response Procedure Tolerated Well -Debridement - Subq, 1st 20sq cm No -Apply Skin Sub - 1st 25 sq cm - Feet 1 -Epifix 18mm Disc 3 Query Text:18mm = 3 [See Physician Procedure note for Specifics] Pain Scale: 0-10 Numeric [Pain] -Is Patient Pain Free? Yes - Nurse 3 - General Ulcer D/C NN Start: 06/10/20 10:54 Freq: Status: Active Protocol: Activity Type Activity Date Activity User E-Sign Co-Sign Detail Recorded Client Recorded Date Recorded By Document 07/08/20 14:12 [facility] [id number] 07/08/20 14:12 [facility] 07/08/20 14:12 Wound Care Nurse 3 [Wound Dressing] #1 Left Heel- Plantar -Primary Dressing Applied Other -Other Dressing epifix per dr colby -Primary Dressing Covered/Secured Other with -Other Covering undercast for tcc [Post Procedure Tolerated] -Treatment Response Procedure Tolerated Well Vital Signs [Pulse] -Pulse Rate (60-100) 90 -Pulse Location Monitor [Respirations] -Respiratory Rate (12-18) 16 -Respiratory rate source Observation -Oxygen Delivery Method Room Air [Blood Pressure] -Blood Pressure (90/60-120/80) 144/75 H -Blood Pressure Mean (mm Hg) 98 -Source Monitor -Position Sitting -Blood Pressure Location Left Arm Pain Scale: 0-10 Numeric [Pain] -Is Patient Pain Free? Yes - Visit Discharge [Visit Discharge Information] -Discharge Condition Stable -Ambulatory Status Ambulatory -Transportation Private Auto Musculoskeletal: No Tenderness to Palpation of Joints or Extremities, Muscle Wasting Neurological: Sensory exam intact to light touch and pain Psych/Mental Status: Normal Affect, Appropriate Debridement Note Post-Debridement Measurements/Treatment WC - Nurse 2 - General Ulcer CM Notes Start: 06/10/20 10:54 Freq: Status: Active Protocol: Activity Type Activity Date Activity User E-Sign Co-Sign Detail Recorded Client Recorded Date Recorded By Document 06/10/20 11:22 [id number] 06/10/20 11:25 Document 06/17/20 10:09 [id number] 06/17/20 10:11 Document 06/24/20 11:19 [id number] 06/24/20 11:22 Document 07/01/20 13:18 [id number] 07/01/20 13:24 Document 07/08/20 13:48 [id number] 07/08/20 13:53 06/10/20 06/17/20 06/24/20 11:22 10:09 11:19 Wound Center Nurse 2 #1 Left Heel- Plantar -Time 11:23 10:09 11:19 -Correct Patient Yes Yes Yes -Correct Side, Site, Position Yes Yes Yes -Correct Procedure Yes Yes Yes -Procedure Performed Yes Yes Yes -Type of Procedure Debridement Debridement Debridement -Clinical Debridement Subcutaneous Subcutaneous Subcutaneous -Tissue Removed Subcutaneous Subcutaneous Subcutaneous -Post Debridement (cm) - Length 1.2 0.9 0.8 -Post Debridement (cm) - Width 1.4 1.3 1.2 -Post Debridement (cm) - Depth 0.2 0.1 0.2 -Total Square (Post) (cm) 1.68 1.17 0.96 -Area of Debridement (cm) - Length 1.2 0.9 0.8 -Area of Debridement (cm) - Width 1.4 1.3 1.2 -Total Square (Area) (cm) 1.68 1.17 0.96 -Tunneling No No No -Undermining/Tunneling No No No -Circular Undermining No No No -Wound/Ulcer Outcome Not Healed Not Healed Not Healed -Ulcer Cleansing Rinsed/ Rinsed/ Rinsed/ Irrigated with Irrigated with Irrigated with Saline Saline Saline -Foul Odor after Cleansing No No No -Bioengineered Tissue Yes Yes Yes -Type of Bioengineered Tissue Epifix 18mm Epifix 18mm Epifix 18mm Disc Disc Disc -Expiration Date 02/06/25 02/06/25 03/09/25 -Product Lot Number [id number] -Percent Used 100 100 100 -Saline Lot Number [id number] -Bleeding Controlled with Pressure Pressure Pressure -Offloading Yes Yes Yes -Type of Offloading Total Contact Total Contact Total Contact Cast (TCC) - Cast (TCC) - Cast (TCC) - Left ($) Left ($) Left ($) -Treatment Response Procedure Procedure Procedure Tolerated Well Tolerated Well Tolerated Well -Debridement - Subq, 1st 20sq cm No No No -Apply Skin Sub - 1st 25 sq cm - Feet 1 1 1 -Epifix 18mm Disc 3 3 3 Query Text:18mm = 3 Pain Scale: 0-10 Numeric Is Patient Pain Free? Yes Yes Yes 07/01/20 07/08/20 13:18 13:48 Wound Center Nurse 2 #1 Left Heel- Plantar -Time 13:18 13:48 -Correct Patient Yes Yes -Correct Side, Site, Position Yes Yes -Correct Procedure Yes Yes -Procedure Performed Yes Yes -Type of Procedure Debridement Debridement -Clinical Debridement Subcutaneous Subcutaneous -Tissue Removed Subcutaneous Subcutaneous -Post Debridement (cm) - Length 0.9 0.8 -Post Debridement (cm) - Width 1.1 1.4 -Post Debridement (cm) - Depth 0.2 0.4 -Total Square (Post) (cm) 0.99 1.12 -Area of Debridement (cm) - Length 0.9 0.8 -Area of Debridement (cm) - Width 1.1 1.4 -Total Square (Area) (cm) 0.99 1.12 -Tunneling No No -Undermining/Tunneling No No -Circular Undermining No No -Wound/Ulcer Outcome Not Healed Not Healed -Ulcer Cleansing Rinsed/ Rinsed/ Irrigated with Irrigated with Saline Saline -Foul Odor after Cleansing No No -Bioengineered Tissue No Yes -Type of Bioengineered Tissue Epifix 18mm Disc -Expiration Date 03/09/25 -Product Lot Number [id number] -Percent Used 100 -Saline Lot Number [id number] -Bleeding Controlled with Pressure Pressure -Offloading Yes Yes -Type of Offloading Knee Walker Total Contact Cast (TCC) - Left ($) -Treatment Response Procedure Procedure Tolerated Well Tolerated Well -Debridement - Subq, 1st 20sq cm Yes No -Apply Skin Sub - 1st 25 sq cm - Feet 1 -Epifix 18mm Disc 3 Query Text:18mm = 3 Pain Scale: 0-10 Numeric Is Patient Pain Free? Yes Yes - Nurse 3 - General Ulcer D/C NN Start: 06/10/20 10:54 Freq: Status: Active Protocol: Activity Type Activity Date Activity User E-Sign Co-Sign Detail Recorded Client Recorded Date Recorded By Document 06/10/20 11:43 RB [id number] 06/10/20 11:44 RB Document 06/24/20 11:31 CS [id number] 06/24/20 11:32 CS Document 07/01/20 13:26 BMF [id number] 07/01/20 13:28 BMF Document 07/08/20 14:12 [facility] [id number] 07/08/20 14:12 [facility] 06/10/20 06/24/20 07/01/20 11:43 11:31 13:26 Wound Care Nurse 3 #1 Left Heel- Plantar -Ulcer Cleansing Not Cleansed Rinsed/ Irrigated with Saline -Foul Odor after Cleansing No No -Negative Pressure Wound Therapy N/A -Primary Dressing Applied Promogran Neida Matter -Other Dressing TCC primary epifix layer -Primary Dressing Covered/Secured with Dry Gauze, Dry Gauze & Secured with Roll Gauze, Tape Secured with Tape -Other Covering TCC -Promogran Neida Matter 1 Treatment Response Procedure Procedure Tolerated Well Tolerated Well Pain Scale: 0-10 Numeric Is Patient Pain Free? Yes Yes Yes Vital Signs Pulse Rate (60-100) 92 Pulse Location Monitor Respiratory Rate (12-18) 16 Respiratory rate source Observation Oxygen Delivery Method Room Air Blood Pressure (90/60-120/80) 97/64 Blood Pressure Mean (mm Hg) 75 Source Monitor Position Sitting Blood Pressure Location Left Arm Teaching: Wound Center Eliminating Foot Pressure -Person Taught Patient -Teaching Method Discussion -Response to teaching Verbalize understanding WC - Visit Discharge Discharge Condition Stable Stable Stable Ambulatory Status Ambulatory Ambulatory Transportation Private Auto Private Auto Private Auto Accompanied by self Medication Reconcilliation completed & No Yes provided to patient/care provider Clinical Summary of Care Provided Yes Yes 07/08/20 14:12 Wound Care Nurse 3 #1 Left Heel- Plantar -Ulcer Cleansing -Foul Odor after Cleansing -Negative Pressure Wound Therapy -Primary Dressing Applied Other -Other Dressing epifix per dr colby -Primary Dressing Covered/Secured with Other -Other Covering undercast for tcc -Promogran Neida Matter Treatment Response Procedure Tolerated Well Pain Scale: 0-10 Numeric Is Patient Pain Free? Yes Vital Signs Pulse Rate (60-100) 90 Pulse Location Monitor Respiratory Rate (12-18) 16 Respiratory rate source Observation Oxygen Delivery Method Room Air Blood Pressure (90/60-120/80) 144/75 H Blood Pressure Mean (mm Hg) 98 Source Monitor Position Sitting Blood Pressure Location Left Arm Teaching: Wound Center Eliminating Foot Pressure -Person Taught -Teaching Method -Response to teaching WC - Visit Discharge Discharge Condition Stable Ambulatory Status Ambulatory Transportation Private Auto Accompanied by Medication Reconcilliation completed & provided to patient/care provider Clinical Summary of Care Provided Wound debrided: plantar heel Laterality: Left Type of Debridement: Excisional debridement Anesthesia Used: 5% Lidocaine Gel Depth: in the subcutaneous layer Percentage of wound debrided: 100 Instrument Used: #15 blade Tissue Removed: fibrous, devitalized subcutaneous, biofilm, slough Severity: Fat Layer Exposed Amount of bleeding with debridement: Mild Bleeding Controlled with: Pressure Patient tolerated procedure well Assessment/Plan Assessment: Left heel ulcer, chronic pressure with delayed healing. Lupus. Lower extremity edema. Left calcaneus gait. MRSA infection with cellulitis, improving Plan: I reviewed and discussed her case. Subcutaneous excisional debridement was performed as noted in the clinical panel. She was reassured that there are no local signs of infection today. Application of advanced wound healing product, epi-fix is applied today after verbal consent was obtained. This was applied according to standard protocol was further secured with a wound veil and Steri-Strips. She tolerated this well. Additionally a total contact cast was applied after verbal consent was obtained. This was applied in a rectus and well-padded manner. She tolerated this well. She is advised to keep her dressing and cast clean, dry, and intact until follow-up next week. To maintain strict nonweightbearing status with the knee roller. She was advised to maintain a good balance whole food diet with adequate protein and nutrients to optimize healing. A prescription for Yosvany was provided and she was advised on proper use. I offered her a stubber referral as well and she canceled this appointment. She is trying to reschedule. She understands her systemic inflammatory disease of lupus may also be contributing to delayed healing. She will avoid antirheumatic medications at this time. She was advised to avoid prednisone use and will also hold the Plaquenil at this time unless she has an intense flareup. This have reviewed verbally with Dr. Pratt. I do not anticipate cymbalta is slowing her healing progress however will confirm at her follow up. We discussed conservative or surgical intervention. Performing a flap was discussed including with a bilobed rotational versus other rotational flap. My concern with this is that she has a calcaneus gait and she is prone to further breakdown even with that surgical intervention. I offered her a surgery to reapproximate and shorten her Achilles tendon. It is noted she had prior surgery in this area with an injury in the early postoperative setting. She will consider this and is not electing to proceed forward with this at this time. I also recommend she gets screening for venous insufficiency completed if she has not already had this done at an outside facility. I answered all of her questions. She was advised to return to the wound healing center in 1 week. To call sooner if she has any questions or concerns or any evidence of infection development.
== END 2020-07-08 23:59 ==
LOC: WC 13:15
PROVIDERS: PCP Family Medicine; Referring Provider Podiatrist Foot & Ankle Surgery; Visit Provider Podiatrist
DX: L97.422 Non-pressure chronic ulcer of left heel and midfoot with fat layer exposed (principal); Z86.14 Personal history of Methicillin resistant Staphylococcus aureus infection; R26.89 Other abnormalities of gait and mobility; M32.9 Systemic lupus erythematosus, unspecified; E78.5 Hyperlipidemia, unspecified; G25.81 Restless legs syndrome; G47.33 Obstructive sleep apnea (adult) (pediatric); K58.9 Irritable bowel syndrome, unspecified; R60.0 Localized edema
CPT/HCPCS: 11042; 15275; 29445; Q4186

== ENCOUNTER 2020-08-05 13:15 | Outpatient (RCR) | payer MEDICARE, BC, SELFPAY ==
[2020-07-09 00:24] VITALS: BP 144/75; PULSE 90; RESP 16; TEMP 36.2
[2020-07-17 11:25] VITALS: BP 142/80; PULSE 97; RESP 16; TEMP 36.3; BMI 39.5
[2020-07-17 12:10] VITALS: BP 119/76; PULSE 85; RESP 16
--- NOTE | 2020-07-17 15:51 | PCM.WC.PN ---
(1) Ulcer of left foot with fat layer exposed Status: Chronic Current Visit: Yes Code(s): L97.522 - Non-pressure chronic ulcer of other part of left foot with fat layer exposed (2) Calcaneal gait Status: Chronic Current Visit: Yes Code(s): R26.89 - Other abnormalities of gait and mobility Comment: left (3) Delayed wound healing Status: Chronic Current Visit: Yes Code(s): T14.8XXD - Other injury of unspecified body region, subsequent encounter (4) Lupus (systemic lupus erythematosus) Status: Chronic Current Visit: No Code(s): M32.9 - Systemic lupus erythematosus, unspecified (5) Malnutrition Status: Chronic Current Visit: No Code(s): E46 - Unspecified protein-calorie malnutrition (6) Cellulitis of left lower limb Status: Resolved Current Visit: No Code(s): L03.116 - Cellulitis of left lower limb Comment: Improving, MRSA (7) MRSA (methicillin resistant staph aureus) culture positive Status: Resolved Current Visit: No Code(s): Z22.322 - Carrier or suspected carrier of Methicillin resistant Staphylococcus aureus Type of Wound Date of Service: 07/17/20 Chief Complaint: Left heel ulcer History of Wound: This pleasant 54-year-old female with significant past medical history of lupus, history of panic attack, depression, history of delayed healing, hyperlipidemia, irritable bowel syndrome, memory loss, restless leg syndrome, and obstructive sleep apnea is here for follow-up of left heel ulcer. She denies fever, chill, nausea, vomiting. Her left foot pain is decreased. She has completed doxycycline as advised. She has discontinued her lupus medication as advised (managed by rheumatology). She took a break from a total contact cast last week. Progress of Wound: The patient denies any fever, chills, nausea, vomiting, or diarrhea. Denies any signs of infection, including increasing pain, redness, swelling, or purulent/malodorous drainage from affected area. She is tolerating TCC well, although she does feel there is possible rubbing of the cast against her posterior leg scar, which concerns her. - Physical Exam Vital Signs Temp Pulse Resp BP 97.3 F L 85 16 119/76 07/17/20 11:25 07/17/20 12:10 07/17/20 12:10 07/17/20 12:10 General: Alert, Cooperative, No apparent distress HEENT: Atraumatic, Normocephalic Oral: Moist Mucosa Neck: Supple Lungs: Normal air movement Extremities: No clubbing, No cyanosis, No edema, Capillary Refill Less than 3 Seconds, Peripheral Pulses Normal Skin: Ulcer/ Wound - Ulcer to left heel with subcutaneous layer exposed, no tunneling, undermining, or probing to bone. There is no mounika-ulcer erythema, warmth, or tenderness to palpation. No purulent or malodorous drainage. Wound Measurements and Assessment WC - Nurse 1 - General Ulcer Measurement Start: 07/17/20 11:25 Freq: Status: Active Protocol: Activity Type Activity Date Activity User E-Sign Co-Sign Detail Recorded Client Recorded Date Recorded By Document 07/17/20 11:25 [facility] [id number] 07/17/20 11:32 [facility] 07/17/20 11:25 Wound Center Nurse 1 [Ulcer Assessment] #1 Left Heel- Plantar -Combined with other wound No -Current Size (cm) - Length 0.6 -Current Size (cm) - Width 0.8 -Current Size (cm) - Depth 0.4 -Total Square Cm 0.48 -Photo Taken No -Epithelialization None Present -Undermining/Tunneling Yes -Undermining/Tunneling Starts (O' 12 clock) -Undermining/Tunneling Ends (O'clock) 12 -Maximum Distance (cm) 0.3 -Circular Undermining Yes -Wound Margin Distinct, Outline Attached -Granulation Amt Large (67-100%) -Granulation Quality [place] -Slough/Fibrin Yes -Necrosis Amt Small (1-33%) -Necrotic Tissue Type Adherent Slough -Texture (Mounika-wound Skin Appearance) Assessed,Callus ,Scarring -Moisture (Mounika-wound Skin Appearance Assessed,Dry/ ) Scaly -Color (Mounika-wound Skin Appearance) Assessed -Temperature (Mounika-wound Skin No Abnormality Appearance) (Pt Warm) -Tenderness on Palpation (Mounika-wound No Skin Appearance) -Ulcer Cleansing soapy water -Foul Odor after Cleansing No -Anesthetic Used 5% Lidocaine Gel WC - Nurse 2 - General Ulcer CM Notes Start: 07/17/20 11:25 Freq: Status: Active Protocol: Activity Type Activity Date Activity User E-Sign Co-Sign Detail Recorded Client Recorded Date Recorded By Document 07/17/20 14:27 PL [id number] 07/17/20 14:30 PL Document 07/17/20 14:33 [id number] 07/17/20 14:34 PL 07/17/20 07/17/20 14:27 14:33 Wound Center Nurse 2 [Procedure/Treatment] #1 Left Heel- Plantar -Time 11:49 -Correct Patient Yes -Correct Side, Site, Position Yes -Correct Procedure Yes -Procedure Performed Yes -Type of Procedure Debridement -Clinical Debridement Subcutaneous -Tissue Removed Subcutaneous -Post Debridement (cm) - Length 0.7 -Post Debridement (cm) - Width 1.0 -Post Debridement (cm) - Depth 0.3 -Total Square (Post) (cm) 0.70 -Area of Debridement (cm) - Length 0.7 -Area of Debridement (cm) - Width 1.0 -Total Square (Area) (cm) 0.70 -Tunneling No -Undermining/Tunneling No -Circular Undermining No -Wound/Ulcer Outcome Not Healed -Ulcer Cleansing Rinsed/ Irrigated with Saline -Foul Odor after Cleansing No -Bioengineered Tissue Yes -Type of Bioengineered Tissue Epifix 18mm Disc -Expiration Date 03/09/25 -Product Lot Number [id number] -Percent Used 100 -Bleeding Controlled with Pressure -Type of Offloading Total Contact Cast (TCC) - Left ($) -Debridement - Subq, 1st 20sq cm No -Apply Skin Sub - 1st 25 sq cm - Feet 1 -Epifix 18mm Disc 3 Query Text:18mm = 3 [See Physician Procedure note for Specifics] Pain Scale: 0-10 Numeric [Pain] -Is Patient Pain Free? Yes WC - Nurse 3 - General Ulcer D/C NN Start: 07/17/20 11:25 Freq: Status: Active Protocol: Activity Type Activity Date Activity User E-Sign Co-Sign Detail Recorded Client Recorded Date Recorded By Document 07/17/20 12:10 [facility] [id number] 07/17/20 12:11 [facility] 07/17/20 12:10 Wound Care Nurse 3 [Wound Dressing] #1 Left Heel- Plantar -Primary Dressing Applied Mepilex Border, Other -Other Dressing epifix per c cheuvront cp -Primary Dressing Covered/Secured Other with -Other Covering tcc undercast, mepilex border for padding to achilles -Mepilex Border 1 Vital Signs [Pulse] -Pulse Rate (60-100) 85 -Pulse Location Monitor [Respirations] -Respiratory Rate (12-18) 16 -Respiratory rate source Observation -Oxygen Delivery Method Room Air [Blood Pressure] -Blood Pressure (90/60-120/80) 119/76 -Blood Pressure Mean (mm Hg) 90 -Source Monitor -Position Sitting -Blood Pressure Location Left Arm Pain Scale: 0-10 Numeric [Pain] -Is Patient Pain Free? Yes WC - Visit Discharge [Visit Discharge Information] -Discharge Condition Stable -Ambulatory Status Ambulatory,Cane -Transportation Private Auto Psych/Mental Status: Normal Affect, Appropriate Debridement Note Post-Debridement Measurements/Treatment WC - Nurse 2 - General Ulcer CM Notes Start: 07/17/20 11:25 Freq: Status: Active Protocol: Activity Type Activity Date Activity User E-Sign Co-Sign Detail Recorded Client Recorded Date Recorded By Document 07/17/20 14:27 PL [id number] 07/17/20 14:30 PL Document 07/17/20 14:33 [id number] 07/17/20 14:34 PL 07/17/20 07/17/20 14:27 14:33 Wound Center Nurse 2 #1 Left Heel- Plantar -Time 11:49 -Correct Patient Yes -Correct Side, Site, Position Yes -Correct Procedure Yes -Procedure Performed Yes -Type of Procedure Debridement -Clinical Debridement Subcutaneous -Tissue Removed Subcutaneous -Post Debridement (cm) - Length 0.7 -Post Debridement (cm) - Width 1.0 -Post Debridement (cm) - Depth 0.3 -Total Square (Post) (cm) 0.70 -Area of Debridement (cm) - Length 0.7 -Area of Debridement (cm) - Width 1.0 -Total Square (Area) (cm) 0.70 -Tunneling No -Undermining/Tunneling No -Circular Undermining No -Wound/Ulcer Outcome Not Healed -Ulcer Cleansing Rinsed/ Irrigated with Saline -Foul Odor after Cleansing No -Bioengineered Tissue Yes -Type of Bioengineered Tissue Epifix 18mm Disc -Expiration Date 03/09/25 -Product Lot Number [id number] -Percent Used 100 -Bleeding Controlled with Pressure -Type of Offloading Total Contact Cast (TCC) - Left ($) -Debridement - Subq, 1st 20sq cm No -Apply Skin Sub - 1st 25 sq cm - Feet 1 -Epifix 18mm Disc 3 Query Text:18mm = 3 Pain Scale: 0-10 Numeric Is Patient Pain Free? Yes - Nurse 3 - General Ulcer D/C NN Start: 07/17/20 11:25 Freq: Status: Active Protocol: Activity Type Activity Date Activity User E-Sign Co-Sign Detail Recorded Client Recorded Date Recorded By Document 07/17/20 12:10 [facility] [id number] 07/17/20 12:11 [facility] 07/17/20 12:10 Wound Care Nurse 3 -Primary Dressing Applied Mepilex Border, Other -Other Dressing epifix per c cheuvront cp -Primary Dressing Covered/Secured with Other -Other Covering tcc undercast, mepilex border for padding to achilles -Mepilex Border 1 Vital Signs Pulse Rate (60-100) 85 Pulse Location Monitor Respiratory Rate (12-18) 16 Respiratory rate source Observation Oxygen Delivery Method Room Air Blood Pressure (90/60-120/80) 119/76 Blood Pressure Mean (mm Hg) 90 Source Monitor Position Sitting Blood Pressure Location Left Arm Pain Scale: 0-10 Numeric Is Patient Pain Free? Yes WC - Visit Discharge Discharge Condition Stable Ambulatory Status Ambulatory,Cane Transportation Private Auto Wound debrided: Left heel ulcer Laterality: Left Type of Debridement: Excisional debridement Anesthesia Used: 5% Lidocaine Gel Depth: Down to and including healthy tissue, in the subcutaneous layer Percentage of wound debrided: 100 Instrument Used: 5mm curette Tissue Removed: Slough and devitalized tissue Severity: Fat Layer Exposed Amount of bleeding with debridement: Mild Bleeding Controlled with: Pressure Patient tolerated procedure well Assessment/Plan Active Problems Ulcer of left foot with fat layer exposed (Chronic) Calcaneal gait (Chronic) left Delayed wound healing (Chronic) Assessment: Left heel ulcer, chronic pressure with delayed healing. Lupus. Lower extremity edema. Left calcaneus gait. MRSA infection with cellulitis, improving Plan: I reviewed and discussed her case. Subcutaneous excisional debridement was performed as noted in the clinical panel. She was reassured that there are no local signs of infection today. Application of advanced wound healing product, epi-fix is applied today after verbal consent was obtained. This was applied according to standard protocol was further secured with a wound veil and Steri-Strips. 100% of the product was used. She tolerated this well. Additionally a total contact cast was applied after verbal consent was obtained. This was applied in a rectus and well-padded manner, with additional padding to the posterior leg along the site of her Achilles scar. She tolerated this well. She is advised to keep her dressing and cast clean, dry, and intact until follow-up next week. To maintain strict nonweightbearing status with the knee roller. She was advised to maintain a good balanced whole food diet with adequate protein and nutrients to optimize healing. A prescription for Yosvany was provided and she was advised on proper use. I offered her a head teacher referral as well and she canceled this appointment. She is trying to reschedule. She understands her systemic inflammatory disease of lupus may also be contributing to delayed healing. She will avoid antirheumatic medications at this time. She was advised to avoid prednisone use and will also hold the Plaquenil at this time unless she has an intense flareup. This have reviewed verbally with Dr. Pratt. Dr. Gutierrez does not anticipate cymbalta is slowing her healing progress however will confirm at her follow up. Dr. Gutierrez discussed conservative or surgical intervention; Performing a flap was discussed including with a bilobed rotational versus other rotational flap. Her concern with this is that she has a calcaneus gait and she is prone to further breakdown even with that surgical intervention. She offered her a surgery to reapproximate and shorten her Achilles tendon. It is noted she had prior surgery in this area with an injury in the early postoperative setting. She will consider this and is not electing to proceed forward with this at this time. Dr. Gutierrez also recommended she gets screening for venous insufficiency completed if she has not already had this done at an outside facility. I answered all of her questions. She was advised to return to the wound healing center in 1 week. To call sooner if she has any questions or concerns or any evidence of infection development. Note: [employer] speech recognition in store representative software was used to create portions of this document. Sound-alike and misspelled words, as well as other in store representative errors may be contained in the documentation. [id number]: [id number] Skin sub graft face/nk/hf/g
[2020-07-24 09:06] VITALS: BP 127/76; PULSE 100; RESP 20; TEMP 36; BMI 39.5
--- NOTE | 2020-07-24 13:02 | PCM.WC.PN ---
(1) Calcaneal gait Status: Chronic Code(s): R26.89 - Other abnormalities of gait and mobility Comment: left (2) Delayed wound healing Status: Chronic Code(s): T14.8XXD - Other injury of unspecified body region, subsequent encounter (3) Lupus (systemic lupus erythematosus) Status: Chronic Qualifiers: Systemic lupus erythematosus type: unspecified Systemic lupus erythematosus organ involvement: unspecified Qualified Code(s): M32.9 - Systemic lupus erythematosus, unspecified Code(s): M32.9 - Systemic lupus erythematosus, unspecified (4) Pressure ulcer of unspecified heel, stage 2 Status: Chronic Qualifiers: Laterality: left Qualified Code(s): L89.622 - Pressure ulcer of left heel, stage 2 Code(s): L89.602 - Pressure ulcer of unspecified heel, stage 2 Type of Wound Date of Service: 07/24/20 Chief Complaint: Left heel ulcer History of Wound: This pleasant 54-year-old female with significant past medical history of lupus, history of panic attack, depression, history of delayed healing, hyperlipidemia, irritable bowel syndrome, memory loss, restless leg syndrome, and obstructive sleep apnea is here for follow-up of left heel ulcer. She denies fever, chill, nausea, vomiting. Her left foot pain is decreased. She has completed doxycycline as advised. She has discontinued her lupus medication as advised (managed by rheumatology). Progress of Wound: The patient denies any fever, chills, nausea, vomiting, or diarrhea. Denies any signs of infection, including increasing pain, redness, swelling, or purulent/malodorous drainage from affected area. She is tolerating TCC well. - Physical Exam Vital Signs Temp Pulse Resp BP 96.8 F L 100 20 H 127/76 H 07/24/20 09:06 07/24/20 09:06 07/24/20 09:06 07/24/20 09:06 General: Alert, Oriented x3, Cooperative, No apparent distress HEENT: Atraumatic, Normocephalic Oral: Moist Mucosa Abdomen: Obese Extremities: No edema Skin: Ulcer/ Wound Wound Measurements and Assessment WC - Nurse 1 - General Ulcer Measurement Start: 07/17/20 11:25 Freq: Status: Active Protocol: Activity Type Activity Date Activity User E-Sign Co-Sign Detail Recorded Client Recorded Date Recorded By Document 07/24/20 09:06 DL [id number] 07/24/20 09:18 DL 07/24/20 09:06 Wound Center Nurse 1 [Ulcer Assessment] #1 Left Heel- Plantar -Current Size (cm) - Length 0.7 -Current Size (cm) - Width 0.9 -Current Size (cm) - Depth 0.4 -Total Square Cm 0.63 -Photo Taken No -Maximum Distance #2 (cm) 0.2 -Circular Undermining Yes -Exudate Amt Small -Exudate Type Serosanguineous -Wound Margin Distinct, Outline Attached -Granulation Amt Small (1-33%) -Granulation Quality [place] -Necrosis Amt Large (67-100%) -Necrotic Tissue Type Adherent Slough -Structure Exposed N/A -Texture (Cecelia-wound Skin Appearance) Scarring -Moisture (Cecelia-wound Skin Appearance Maceration ) -Color (Cecelia-wound Skin Appearance) No Abnormality -Temperature (Cecelia-wound Skin No Abnormality Appearance) (Pt Warm) -Tenderness on Palpation (Cecelia-wound No Skin Appearance) -Ulcer Cleansing Wound Cleanser -Foul Odor after Cleansing No -Anesthetic Used 5% Lidocaine Gel WC - Nurse 2 - General Ulcer CM Notes Start: 07/17/20 11:25 Freq: Status: Active Protocol: Activity Type Activity Date Activity User E-Sign Co-Sign Detail Recorded Client Recorded Date Recorded By Document 07/24/20 09:27 MW [id number] 07/24/20 09:39 MW 07/24/20 09:27 Wound Center Nurse 2 [Procedure/Treatment] -Time 09:27 -Correct Patient Yes -Correct Side, Site, Position Yes -Correct Procedure Yes -Procedure Performed Yes -Type of Procedure Debridement -Clinical Debridement Subcutaneous -Tissue Removed Subcutaneous -Post Debridement (cm) - Length 0.8 -Post Debridement (cm) - Width 0.9 -Post Debridement (cm) - Depth 0.2 -Total Square (Post) (cm) 0.72 -Area of Debridement (cm) - Length 0.8 -Area of Debridement (cm) - Width 0.9 -Total Square (Area) (cm) 0.72 -Tunneling No -Undermining/Tunneling No -Circular Undermining No -Wound/Ulcer Outcome Not Healed -Ulcer Cleansing Rinsed/ Irrigated with Saline -Foul Odor after Cleansing No -Bioengineered Tissue Yes -Type of Bioengineered Tissue Epifix 18mm Disc -Expiration Date 04/08/25 -Product Lot Number [id number] -Percent Used 100 -Saline Lot Number [id number] -Bleeding Controlled with Pressure -Offloading No -Debridement - Subq, 1st 20sq cm No -Apply Skin Sub - 1st 25 sq cm - Feet 1 -Epifix 18mm Disc 3 Query Text:18mm = 3 [See Physician Procedure note for Specifics] Pain Scale: 0-10 Numeric [Pain] -Is Patient Pain Free? Yes Psych/Mental Status: Normal Affect, Appropriate Debridement Note Post-Debridement Measurements/Treatment WC - Nurse 2 - General Ulcer CM Notes Start: 07/17/20 11:25 Freq: Status: Active Protocol: Activity Type Activity Date Activity User E-Sign Co-Sign Detail Recorded Client Recorded Date Recorded By Document 07/17/20 14:27 PL [id number] 07/17/20 14:30 PL Document 07/17/20 14:33 PL [id number] 07/17/20 14:34 PL Document 07/24/20 09:27 MW [id number] 07/24/20 09:39 MW 07/17/20 07/17/20 07/24/20 14:27 14:33 09:27 Wound Center Nurse 2 #1 Left Heel- Plantar -Time 11:49 09:27 -Correct Patient Yes Yes -Correct Side, Site, Position Yes Yes -Correct Procedure Yes Yes -Procedure Performed Yes Yes -Type of Procedure Debridement Debridement -Clinical Debridement Subcutaneous Subcutaneous -Tissue Removed Subcutaneous Subcutaneous -Post Debridement (cm) - Length 0.7 0.8 -Post Debridement (cm) - Width 1.0 0.9 -Post Debridement (cm) - Depth 0.3 0.2 -Total Square (Post) (cm) 0.70 0.72 -Area of Debridement (cm) - Length 0.7 0.8 -Area of Debridement (cm) - Width 1.0 0.9 -Total Square (Area) (cm) 0.70 0.72 -Tunneling No No -Undermining/Tunneling No No -Circular Undermining No No -Wound/Ulcer Outcome Not Healed Not Healed -Ulcer Cleansing Rinsed/ Rinsed/ Irrigated with Irrigated with Saline Saline -Foul Odor after Cleansing No No -Bioengineered Tissue Yes Yes -Type of Bioengineered Tissue Epifix 18mm Epifix 18mm Disc Disc -Expiration Date 03/09/25 04/08/25 -Product Lot Number [id number] -Percent Used 100 100 -Saline Lot Number [id number] -Bleeding Controlled with Pressure Pressure -Offloading No -Type of Offloading Total Contact Cast (TCC) - Left ($) -Debridement - Subq, 1st 20sq cm No No -Apply Skin Sub - 1st 25 sq cm - Feet 1 1 -Epifix 18mm Disc 3 3 Query Text:18mm = 3 Pain Scale: 0-10 Numeric Is Patient Pain Free? Yes Yes - Nurse 3 - General Ulcer D/C NN Start: 07/17/20 11:25 Freq: Status: Active Protocol: Activity Type Activity Date Activity User E-Sign Co-Sign Detail Recorded Client Recorded Date Recorded By Document 07/17/20 12:10 [facility] [id number] 07/17/20 12:11 [facility] 07/17/20 12:10 Wound Care Nurse 3 #1 Left Heel- Plantar -Primary Dressing Applied Mepilex Border, Other -Other Dressing epifix per c cheuvront cp -Primary Dressing Covered/Secured with Other -Other Covering tcc undercast, mepilex border for padding to achilles -Mepilex Border 1 Vital Signs Pulse Rate (60-100) 85 Pulse Location Monitor Respiratory Rate (12-18) 16 Respiratory rate source Observation Oxygen Delivery Method Room Air Blood Pressure (90/60-120/80) 119/76 Blood Pressure Mean (mm Hg) 90 Source Monitor Position Sitting Blood Pressure Location Left Arm Pain Scale: 0-10 Numeric Is Patient Pain Free? Yes - Visit Discharge Discharge Condition Stable Ambulatory Status Ambulatory,Cane Transportation Private Auto Wound debrided: left heel plantar Laterality: Left Wound Grade/Stage: Stage 2 Type of Debridement: Excisional debridement Anesthesia Used: 4% Lidocaine Solution, 5% Lidocaine Gel Depth: Down to and including healthy tissue, in the subcutaneous layer Percentage of wound debrided: 100 Instrument Used: 5mm curette Tissue Removed: Yellow slough, devitalized tissue Severity: Fat Layer Exposed Amount of bleeding with debridement: Mild Bleeding Controlled with: Compression and gauze Patient tolerated procedure well Assessment/Plan Active Problems Ulcer of left foot with fat layer exposed (Chronic) Assessment: Left heel ulcer, chronic pressure with delayed healing. Lupus. Lower extremity edema. Left calcaneus gait. MRSA infection with cellulitis, improving Plan: I reviewed and discussed her case. Subcutaneous excisional debridement was performed as noted in the clinical panel. She was reassured that there are no local signs of infection today. Application of advanced wound healing product, epi-fix is applied today after verbal consent was obtained. This was applied according to standard protocol was further secured with a wound veil and Steri-Strips. 100% of the product was used. She tolerated this well. Additionally a total contact cast was applied after verbal consent was obtained. This was applied in a rectus and well-padded manner, with additional padding to the posterior leg along the site of her Achilles scar. She tolerated this well. She is advised to keep her dressing and cast clean, dry, and intact until follow-up next week. To maintain strict nonweightbearing status with the knee roller. She was advised to maintain a good balanced whole food diet with adequate protein and nutrients to optimize healing. A prescription for Yosvany was provided and she was advised on proper use. I offered her a oncology nurse referral as well and she canceled this appointment. She is trying to reschedule. She understands her systemic inflammatory disease of lupus may also be contributing to delayed healing. She will avoid antirheumatic medications at this time. She was advised to avoid prednisone use and will also hold the Plaquenil at this time unless she has an intense flareup. This have reviewed verbally with Dr. Pratt. Dr. Gutierrez does not anticipate cymbalta is slowing her healing progress however will confirm at her follow up. Dr. Gutierrez discussed conservative or surgical intervention; Performing a flap was discussed including with a bilobed rotational versus other rotational flap. Her concern with this is that she has a calcaneus gait and she is prone to further breakdown even with that surgical intervention. She offered her a surgery to reapproximate and shorten her Achilles tendon. It is noted she had prior surgery in this area with an injury in the early postoperative setting. She will consider this and is not electing to proceed forward with this at this time. Dr. Gutierrez also recommended she gets screening for venous insufficiency completed if she has not already had this done at an outside facility. I answered all of her questions. She was advised to return to the wound healing center in 1 week. To call sooner if she has any questions or concerns or any evidence of infection development. Note: [employer] speech recognition canvas cutter machine software was used to create portions of this document. Sound-alike and misspelled words, as well as other canvas cutter machine errors may be contained in the documentation.
[2020-07-29 13:53] VITALS: BP 127/77; PULSE 96; RESP 20; TEMP 35.7; BMI 39.5
--- NOTE | 2020-07-29 15:40 | PCM.WC.PN ---
(1) Lupus (systemic lupus erythematosus) Status: Chronic Qualifiers: Systemic lupus erythematosus type: unspecified Systemic lupus erythematosus organ involvement: unspecified Qualified Code(s): M32.9 - Systemic lupus erythematosus, unspecified Code(s): M32.9 - Systemic lupus erythematosus, unspecified (2) Ulcer of left foot with fat layer exposed Status: Chronic Code(s): L97.522 - Non-pressure chronic ulcer of other part of left foot with fat layer exposed (3) Calcaneal gait Status: Chronic Code(s): R26.89 - Other abnormalities of gait and mobility Comment: left (4) Delayed wound healing Status: Chronic Code(s): T14.8XXD - Other injury of unspecified body region, subsequent encounter Type of Wound Date of Service: 07/29/20 Chief Complaint: Left heel ulcer History of Wound: This pleasant 55-year-old female with significant past medical history of lupus, history of panic attack, depression, history of delayed healing, hyperlipidemia, irritable bowel syndrome, memory loss, restless leg syndrome, and obstructive sleep apnea is here for follow-up of left heel ulcer. She denies fever, chill, nausea, vomiting. Her left foot pain is decreased. She has discontinued her lupus medication as advised (managed by rheumatology). She has been compliant with her total contact cast. Progress of Wound: Improving - Physical Exam Vital Signs Temp Pulse Resp BP 96.3 F L 96 20 H 127/77 H 07/29/20 13:53 07/29/20 13:53 07/29/20 13:53 07/29/20 13:53 General: Alert, Oriented x3, Cooperative, No apparent distress HEENT: Atraumatic Extremities: No cyanosis, Capillary Refill Less than 3 Seconds, No Calf Tenderness, Diminished Peripheral Pulses, Edema Skin: Ulcer/ Wound - No purulence, erythema, streaking, odor, infection. Her skin is hairless and atrophic. Ulcer size reduction is noted including decreased depth Wound Measurements and Assessment WC - Nurse 1 - General Ulcer Measurement Start: 07/17/20 11:25 Freq: Status: Active Protocol: Activity Type Activity Date Activity User E-Sign Co-Sign Detail Recorded Client Recorded Date Recorded By Document 07/29/20 13:53 DL [id number] 07/29/20 14:02 DL 07/29/20 13:53 Wound Center Nurse 1 [Ulcer Assessment] #1 Left Heel- Plantar -Current Size (cm) - Length 0.6 -Current Size (cm) - Width 0.7 -Current Size (cm) - Depth 0.2 -Total Square Cm 0.42 -Photo Taken No -Exudate Amt Medium -Exudate Type Serosanguineous -Wound Margin Thickened -Granulation Amt Large (67-100%) -Granulation Quality Pale -Necrosis Amt Small (1-33%) -Necrotic Tissue Type Adherent Slough -Structure Exposed N/A -Texture (Cecelia-wound Skin Appearance) Scarring -Moisture (Cecelia-wound Skin Appearance Dry/Scaly ) -Color (Cecelia-wound Skin Appearance) No Abnormality -Temperature (Cecelia-wound Skin No Abnormality Appearance) (Pt Warm) -Tenderness on Palpation (Cecelia-wound No Skin Appearance) -Ulcer Cleansing Wound Cleanser -Foul Odor after Cleansing No -Anesthetic Used 4% Lidocaine Solution WC - Nurse 2 - General Ulcer CM Notes Start: 07/17/20 11:25 Freq: Status: Active Protocol: Activity Type Activity Date Activity User E-Sign Co-Sign Detail Recorded Client Recorded Date Recorded By Document 07/29/20 14:21 [id number] 07/29/20 14:25 STEPHANIE 07/29/20 14:21 Wound Center Nurse 2 [Procedure/Treatment] -Time 14:21 -Correct Patient Yes -Correct Side, Site, Position Yes -Correct Procedure Yes -Procedure Performed Yes -Type of Procedure Debridement -Clinical Debridement Subcutaneous -Tissue Removed Subcutaneous -Post Debridement (cm) - Length 0.6 -Post Debridement (cm) - Width 0.9 -Post Debridement (cm) - Depth 0.2 -Total Square (Post) (cm) 0.54 -Area of Debridement (cm) - Length 0.6 -Area of Debridement (cm) - Width 0.9 -Total Square (Area) (cm) 0.54 -Tunneling No -Undermining/Tunneling No -Circular Undermining No -Wound/Ulcer Outcome Not Healed -Ulcer Cleansing Rinsed/ Irrigated with Saline -Foul Odor after Cleansing No -Bioengineered Tissue Yes -Type of Bioengineered Tissue Epifix 18mm Disc -Expiration Date 04/08/25 -Product Lot Number [id number] -Percent Used 100 -Saline Lot Number [id number] -Bleeding Controlled with Pressure -Offloading Yes -Type of Offloading Total Contact Cast (TCC) - Left ($) -Treatment Response Procedure Tolerated Well -Debridement - Subq, 1st 20sq cm No -Apply Skin Sub - 1st 25 sq cm - Feet 1 -Epifix 18mm Disc 3 Query Text:18mm = 3 [See Physician Procedure note for Specifics] Pain Scale: 0-10 Numeric [Pain] -Is Patient Pain Free? Yes - Nurse 3 - General Ulcer D/C NN Start: 07/17/20 11:25 Freq: Status: Active Protocol: Activity Type Activity Date Activity User E-Sign Co-Sign Detail Recorded Client Recorded Date Recorded By Document 07/29/20 14:42 RB [id number] 07/29/20 14:43 RB 07/29/20 14:42 Wound Care Nurse 3 [Wound Dressing] #1 Left Heel- Plantar -Ulcer Cleansing Rinsed/ Irrigated with Saline -Foul Odor after Cleansing No -Negative Pressure Wound Therapy N/A -Other Dressing primary layer of TCC applied Pain Scale: 0-10 Numeric [Pain] -Is Patient Pain Free? Yes - Visit Discharge [Visit Discharge Information] -Discharge Condition Stable -Ambulatory Status Ambulatory -Transportation Private Auto -Medication Reconcilliation completed No & provided to patient/care provider -Clinical Summary of Care Provided Yes Musculoskeletal: No Tenderness to Palpation of Joints or Extremities, Muscle Wasting Neurological: - - Lack of normal epicritic sensation light touch is consistent with neuropathy status Psych/Mental Status: Normal Affect, Appropriate Debridement Note Post-Debridement Measurements/Treatment WC - Nurse 2 - General Ulcer CM Notes Start: 07/17/20 11:25 Freq: Status: Active Protocol: Activity Type Activity Date Activity User E-Sign Co-Sign Detail Recorded Client Recorded Date Recorded By Document 07/17/20 14:27 PL [id number] 07/17/20 14:30 PL Document 07/17/20 14:33 PL [id number] 07/17/20 14:34 PL Document 07/24/20 09:27 MW [id number] 07/24/20 09:39 MW Document 07/29/20 14:21 JF [id number] 07/29/20 14:25 JF 07/17/20 07/17/20 07/24/20 14:27 14:33 09:27 Wound Center Nurse 2 #1 Left Heel- Plantar -Time 11:49 09:27 -Correct Patient Yes Yes -Correct Side, Site, Position Yes Yes -Correct Procedure Yes Yes -Procedure Performed Yes Yes -Type of Procedure Debridement Debridement -Clinical Debridement Subcutaneous Subcutaneous -Tissue Removed Subcutaneous Subcutaneous -Post Debridement (cm) - Length 0.7 0.8 -Post Debridement (cm) - Width 1.0 0.9 -Post Debridement (cm) - Depth 0.3 0.2 -Total Square (Post) (cm) 0.70 0.72 -Area of Debridement (cm) - Length 0.7 0.8 -Area of Debridement (cm) - Width 1.0 0.9 -Total Square (Area) (cm) 0.70 0.72 -Tunneling No No -Undermining/Tunneling No No -Circular Undermining No No -Wound/Ulcer Outcome Not Healed Not Healed -Ulcer Cleansing Rinsed/ Rinsed/ Irrigated with Irrigated with Saline Saline -Foul Odor after Cleansing No No -Bioengineered Tissue Yes Yes -Type of Bioengineered Tissue Epifix 18mm Epifix 18mm Disc Disc -Expiration Date 03/09/25 04/08/25 -Product Lot Number [id number] -Percent Used 100 100 -Saline Lot Number [id number] -Bleeding Controlled with Pressure Pressure -Offloading No -Type of Offloading Total Contact Cast (TCC) - Left ($) -Treatment Response -Debridement - Subq, 1st 20sq cm No No -Apply Skin Sub - 1st 25 sq cm - Feet 1 1 -Epifix 18mm Disc 3 3 Query Text:18mm = 3 Pain Scale: 0-10 Numeric Is Patient Pain Free? Yes Yes 07/29/20 14:21 Wound Center Nurse 2 #1 Left Heel- Plantar -Time 14:21 -Correct Patient Yes -Correct Side, Site, Position Yes -Correct Procedure Yes -Procedure Performed Yes -Type of Procedure Debridement -Clinical Debridement Subcutaneous -Tissue Removed Subcutaneous -Post Debridement (cm) - Length 0.6 -Post Debridement (cm) - Width 0.9 -Post Debridement (cm) - Depth 0.2 -Total Square (Post) (cm) 0.54 -Area of Debridement (cm) - Length 0.6 -Area of Debridement (cm) - Width 0.9 -Total Square (Area) (cm) 0.54 -Tunneling No -Undermining/Tunneling No -Circular Undermining No -Wound/Ulcer Outcome Not Healed -Ulcer Cleansing Rinsed/ Irrigated with Saline -Foul Odor after Cleansing No -Bioengineered Tissue Yes -Type of Bioengineered Tissue Epifix 18mm Disc -Expiration Date 04/08/25 -Product Lot Number [id number] -Percent Used 100 -Saline Lot Number [id number] -Bleeding Controlled with Pressure -Offloading Yes -Type of Offloading Total Contact Cast (TCC) - Left ($) -Treatment Response Procedure Tolerated Well -Debridement - Subq, 1st 20sq cm No -Apply Skin Sub - 1st 25 sq cm - Feet 1 -Epifix 18mm Disc 3 Query Text:18mm = 3 Pain Scale: 0-10 Numeric Is Patient Pain Free? Yes - Nurse 3 - General Ulcer D/C NN Start: 07/17/20 11:25 Freq: Status: Active Protocol: Activity Type Activity Date Activity User E-Sign Co-Sign Detail Recorded Client Recorded Date Recorded By Document 07/17/20 12:10 [facility] [id number] 07/17/20 12:11 [facility] Document 07/29/20 14:42 [id number] 07/29/20 14:43 RB 07/17/20 07/29/20 12:10 14:42 Wound Care Nurse 3 #1 Left Heel- Plantar -Ulcer Cleansing Rinsed/ Irrigated with Saline -Foul Odor after Cleansing No -Negative Pressure Wound Therapy N/A -Primary Dressing Applied Mepilex Border, Other -Other Dressing epifix per c primary layer cheuvront cp of TCC applied -Primary Dressing Covered/Secured with Other -Other Covering tcc undercast, mepilex border for padding to achilles -Mepilex Border 1 Vital Signs Pulse Rate (60-100) 85 Pulse Location Monitor Respiratory Rate (12-18) 16 Respiratory rate source Observation Oxygen Delivery Method Room Air Blood Pressure (90/60-120/80) 119/76 Blood Pressure Mean (mm Hg) 90 Source Monitor Position Sitting Blood Pressure Location Left Arm Pain Scale: 0-10 Numeric Is Patient Pain Free? Yes Yes - Visit Discharge Discharge Condition Stable Stable Ambulatory Status Ambulatory,Cane Ambulatory Transportation Private Auto Private Auto Medication Reconcilliation completed & No provided to patient/care provider Clinical Summary of Care Provided Yes Wound debrided: plantar heel Laterality: Left Type of Debridement: Excisional debridement Anesthesia Used: 5% Lidocaine Gel Depth: in the subcutaneous layer Percentage of wound debrided: 100 Instrument Used: #15 blade Tissue Removed: fibrous, devitalized subcutaneous, biofilm, slough Severity: Fat Layer Exposed Amount of bleeding with debridement: Mild Bleeding Controlled with: Pressure Patient tolerated procedure well Assessment/Plan Active Problems Lupus (systemic lupus erythematosus) (Chronic) Ulcer of left foot with fat layer exposed (Chronic) Calcaneal gait (Chronic) left Delayed wound healing (Chronic) Pressure ulcer of unspecified heel, stage 2 (Chronic) Assessment: Left heel ulcer, chronic pressure with delayed healing. Lupus. Lower extremity edema. Left calcaneus gait. MRSA infection with cellulitis, improving Plan: I reviewed and discussed her case. Subcutaneous excisional debridement was performed as noted in the clinical panel. She was reassured that there are no local signs of infection today. Application of advanced wound healing product, epi-fix is applied today after verbal consent was obtained. This was applied according to standard protocol was further secured with a wound veil and Steri-Strips. 100% of the product was used. She tolerated this well. Additionally a total contact cast was applied after verbal consent was obtained. This was applied in a rectus and well-padded manner, with additional padding to the posterior leg along the site of her Achilles scar. She tolerated this well. She is advised to keep her dressing and cast clean, dry, and intact until follow-up next week. To maintain strict nonweightbearing status with the knee roller. She was advised to maintain a good balanced whole food diet with adequate protein and nutrients to optimize healing. A prescription for Yosvany was provided and she was advised on proper use. I offered her a special tester referral as well and she canceled this appointment. She is trying to reschedule. She understands her systemic inflammatory disease of lupus may also be contributing to delayed healing. She will avoid antirheumatic medications at this time. She was advised to avoid prednisone use and will also hold the Plaquenil at this time unless she has an intense flareup. This have reviewed verbally with Dr. Pratt. Dr. Gutierrez does not anticipate cymbalta is slowing her healing progress however will confirm at her follow up. Dr. Gutierrez discussed conservative or surgical intervention; Performing a flap was discussed including with a bilobed rotational versus other rotational flap. Her concern with this is that she has a calcaneus gait and she is prone to further breakdown even with that surgical intervention. She offered her a surgery to reapproximate and shorten her Achilles tendon. It is noted she had prior surgery in this area with an injury in the early postoperative setting. She will consider this and is not electing to proceed forward with this at this time. Dr. Gutierrez also recommended she gets screening for venous insufficiency completed if she has not already had this done at an outside facility. I answered all of her questions. She was advised to return to the wound healing center in 1 week. To call sooner if she has any questions or concerns or any evidence of infection development. Note: [employer] speech recognition lead military analyst software was used to create portions of this document. Sound-alike and misspelled words, as well as other lead military analyst errors may be contained in the documentation.
[2020-08-05 13:19] VITALS: BP 130/81; PULSE 98; RESP 16; TEMP 36.2; BMI 39.5
--- NOTE | 2020-08-05 14:19 | PN.PCM_ITS ---
(1) Lupus (systemic lupus erythematosus) Status: Chronic Qualifiers: Systemic lupus erythematosus type: unspecified Systemic lupus erythematosus organ involvement: unspecified Qualified Code(s): M32.9 - Systemic lupus erythematosus, unspecified Code(s): M32.9 - Systemic lupus erythematosus, unspecified (2) Ulcer of left foot with fat layer exposed Status: Chronic Code(s): L97.522 - Non-pressure chronic ulcer of other part of left foot with fat layer exposed (3) Calcaneal gait Status: Chronic Code(s): R26.89 - Other abnormalities of gait and mobility Comment: left (4) Delayed wound healing Status: Chronic Code(s): T14.8XXD - Other injury of unspecified body region, subsequent encounter Type of Wound Date of Service: 08/05/20 Chief Complaint: Left heel ulcer History of Wound: This pleasant 55-year-old female with significant past medical history of lupus, history of panic attack, depression, history of delayed healing, hyperlipidemia, irritable bowel syndrome, memory loss, restless leg syndrome, and obstructive sleep apnea is here for follow-up of left heel ulcer. She denies fever, chill, nausea, vomiting. Her left foot pain is decreased. She has discontinued her lupus medication as advised (managed by rheumatology). She has been compliant with her total contact cast. Progress of Wound: Improving - Physical Exam Vital Signs Temp Pulse Resp BP 97.2 F L 98 16 130/81 H 08/05/20 13:19 08/05/20 13:19 08/05/20 13:19 08/05/20 13:19 General: Alert, Oriented x3, Cooperative, No apparent distress HEENT: Atraumatic Extremities: No cyanosis, Capillary Refill Less than 3 Seconds, No Calf Tenderness, Diminished Peripheral Pulses, Edema, - - Calcaneus gait position, left Skin: Ulcer/ Wound - No purulence, erythema, streaking, odor, infection. The ulcer bed is granular with reduced depth. Peripheral epithelialization continues to progress well. Wound Measurements and Assessment WC - Nurse 1 - General Ulcer Measurement Start: 07/17/20 11:25 Freq: Status: Active Protocol: Activity Type Activity Date Activity User E-Sign Co-Sign Detail Recorded Client Recorded Date Recorded By Document 08/05/20 13:19 [facility] [id number] 08/05/20 13:26 BMF 08/05/20 13:19 Wound Center Nurse 1 [Ulcer Assessment] #1 Left Heel- Plantar -Combined with other wound No -Current Size (cm) - Length 0.5 -Current Size (cm) - Width 0.7 -Current Size (cm) - Depth 0.1 -Total Square Cm 0.35 -Photo Taken No -Epithelialization None Present -Tunneling No -Undermining/Tunneling No -Circular Undermining No -Exudate Amt Small -Exudate Type Serosanguineous -Wound Margin Distinct, Outline Attached -Granulation Amt Large (67-100%) -Granulation Quality [place] -Slough/Fibrin No -Necrosis Amt None Present (0 %) -Texture (Cecelia-wound Skin Appearance) Assessed,Callus ,Scarring -Moisture (Cecelia-wound Skin Appearance Assessed,Dry/ ) Scaly -Color (Cecelia-wound Skin Appearance) Assessed -Temperature (Cecelia-wound Skin No Abnormality Appearance) (Pt Warm) -Tenderness on Palpation (Cecelia-wound No Skin Appearance) -Ulcer Cleansing SOAPY WATER -Foul Odor after Cleansing No -Anesthetic Used 5% Lidocaine Gel WC - Nurse 2 - General Ulcer CM Notes Start: 07/17/20 11:25 Freq: Status: Active Protocol: Activity Type Activity Date Activity User E-Sign Co-Sign Detail Recorded Client Recorded Date Recorded By Document 08/05/20 13:41 [id number] 08/05/20 13:43 08/05/20 13:41 Wound Center Nurse 2 [Procedure/Treatment] -Time 13:41 -Correct Patient Yes -Correct Side, Site, Position Yes -Correct Procedure Yes -Procedure Performed Yes -Type of Procedure Debridement -Clinical Debridement Subcutaneous -Tissue Removed Subcutaneous -Post Debridement (cm) - Length 0.4 -Post Debridement (cm) - Width 0.7 -Post Debridement (cm) - Depth 0.2 -Total Square (Post) (cm) 0.28 -Area of Debridement (cm) - Length 0.4 -Area of Debridement (cm) - Width 0.7 -Total Square (Area) (cm) 0.28 -Tunneling No -Undermining/Tunneling No -Circular Undermining No -Wound/Ulcer Outcome Not Healed -Ulcer Cleansing Rinsed/ Irrigated with Saline -Foul Odor after Cleansing No -Bioengineered Tissue No -Bleeding Controlled with Pressure -Offloading Yes -Type of Offloading Total Contact Cast (TCC) - Left ($) -Treatment Response Procedure Tolerated Well -Debridement - Subq, 1st 20sq cm Yes [See Physician Procedure note for Specifics] Pain Scale: 0-10 Numeric [Pain] -Is Patient Pain Free? Yes - Nurse 3 - General Ulcer D/C NN Start: 07/17/20 11:25 Freq: Status: Active Protocol: Activity Type Activity Date Activity User E-Sign Co-Sign Detail Recorded Client Recorded Date Recorded By Document 08/05/20 13:48 DL [id number] 08/05/20 13:49 DL 08/05/20 13:48 Wound Care Nurse 3 [Wound Dressing] #1 Left Heel- Plantar -Ulcer Cleansing Rinsed/ Irrigated with Saline -Foul Odor after Cleansing No -Primary Dressing Applied Promogran Neida Matter -Other Dressing neida -Other Covering TCC COVERING -Promogran Neida Matter 1 [Post Procedure Tolerated] -Treatment Response Procedure Tolerated Well Pain Scale: 0-10 Numeric [Pain] -Is Patient Pain Free? Yes - Visit Discharge [Visit Discharge Information] -Discharge Condition Stable -Ambulatory Status Ambulatory -Transportation Private Auto Musculoskeletal: No Tenderness to Palpation of Joints or Extremities, Muscle Wasting Neurological: Sensory exam intact to light touch and pain Psych/Mental Status: Normal Affect, Appropriate Debridement Note Post-Debridement Measurements/Treatment WC - Nurse 2 - General Ulcer CM Notes Start: 07/17/20 11:25 Freq: Status: Active Protocol: Activity Type Activity Date Activity User E-Sign Co-Sign Detail Recorded Client Recorded Date Recorded By Document 07/17/20 14:27 PL [id number] 07/17/20 14:30 PL Document 07/17/20 14:33 PL [id number] 07/17/20 14:34 PL Document 07/24/20 09:27 MW [id number] 07/24/20 09:39 MW Document 07/29/20 14:21 JF [id number] 07/29/20 14:25 JF Document 08/05/20 13:41 JF [id number] 08/05/20 13:43 JF 07/17/20 07/17/20 07/24/20 14:27 14:33 09:27 Wound Center Nurse 2 #1 Left Heel- Plantar -Time 11:49 09:27 -Correct Patient Yes Yes -Correct Side, Site, Position Yes Yes -Correct Procedure Yes Yes -Procedure Performed Yes Yes -Type of Procedure Debridement Debridement -Clinical Debridement Subcutaneous Subcutaneous -Tissue Removed Subcutaneous Subcutaneous -Post Debridement (cm) - Length 0.7 0.8 -Post Debridement (cm) - Width 1.0 0.9 -Post Debridement (cm) - Depth 0.3 0.2 -Total Square (Post) (cm) 0.70 0.72 -Area of Debridement (cm) - Length 0.7 0.8 -Area of Debridement (cm) - Width 1.0 0.9 -Total Square (Area) (cm) 0.70 0.72 -Tunneling No No -Undermining/Tunneling No No -Circular Undermining No No -Wound/Ulcer Outcome Not Healed Not Healed -Ulcer Cleansing Rinsed/ Rinsed/ Irrigated with Irrigated with Saline Saline -Foul Odor after Cleansing No No -Bioengineered Tissue Yes Yes -Type of Bioengineered Tissue Epifix 18mm Epifix 18mm Disc Disc -Expiration Date 03/09/25 04/08/25 -Product Lot Number [id number] -Percent Used 100 100 -Saline Lot Number [id number] -Bleeding Controlled with Pressure Pressure -Offloading No -Type of Offloading Total Contact Cast (TCC) - Left ($) -Treatment Response -Debridement - Subq, 1st 20sq cm No No -Apply Skin Sub - 1st 25 sq cm - Feet 1 1 -Epifix 18mm Disc 3 3 Pain Scale: 0-10 Numeric Is Patient Pain Free? Yes Yes 07/29/20 08/05/20 14:21 13:41 Wound Center Nurse 2 #1 Left Heel- Plantar -Time 14:21 13:41 -Correct Patient Yes Yes -Correct Side, Site, Position Yes Yes -Correct Procedure Yes Yes -Procedure Performed Yes Yes -Type of Procedure Debridement Debridement -Clinical Debridement Subcutaneous Subcutaneous -Tissue Removed Subcutaneous Subcutaneous -Post Debridement (cm) - Length 0.6 0.4 -Post Debridement (cm) - Width 0.9 0.7 -Post Debridement (cm) - Depth 0.2 0.2 -Total Square (Post) (cm) 0.54 0.28 -Area of Debridement (cm) - Length 0.6 0.4 -Area of Debridement (cm) - Width 0.9 0.7 -Total Square (Area) (cm) 0.54 0.28 -Tunneling No No -Undermining/Tunneling No No -Circular Undermining No No -Wound/Ulcer Outcome Not Healed Not Healed -Ulcer Cleansing Rinsed/ Rinsed/ Irrigated with Irrigated with Saline Saline -Foul Odor after Cleansing No No -Bioengineered Tissue Yes No -Type of Bioengineered Tissue Epifix 18mm Disc -Expiration Date 04/08/25 -Product Lot Number [id number] -Percent Used 100 -Saline Lot Number [id number] -Bleeding Controlled with Pressure Pressure -Offloading Yes Yes -Type of Offloading Total Contact Total Contact Cast (TCC) - Cast (TCC) - Left ($) Left ($) -Treatment Response Procedure Procedure Tolerated Well Tolerated Well -Debridement - Subq, 1st 20sq cm No Yes -Apply Skin Sub - 1st 25 sq cm - Feet 1 -Epifix 18mm Disc 3 Pain Scale: 0-10 Numeric Is Patient Pain Free? Yes Yes WC - Nurse 3 - General Ulcer D/C NN Start: 07/17/20 11:25 Freq: Status: Active Protocol: Activity Type Activity Date Activity User E-Sign Co-Sign Detail Recorded Client Recorded Date Recorded By Document 07/17/20 12:10 [facility] [id number] 07/17/20 12:11 BMF Document 07/29/20 14:42 RB [id number] 07/29/20 14:43 RB Document 08/05/20 13:48 DL [id number] 08/05/20 13:49 DL 07/17/20 07/29/20 08/05/20 12:10 14:42 13:48 Wound Care Nurse 3 #1 Left Heel- Plantar -Ulcer Cleansing Rinsed/ Rinsed/ Irrigated with Irrigated with Saline Saline -Foul Odor after Cleansing No No -Negative Pressure Wound Therapy N/A -Primary Dressing Applied Mepilex Border, Promogran Other Neida Matter -Other Dressing epifix per c primary layer neida cheuvront cp of TCC applied -Primary Dressing Covered/Secured with Other -Other Covering tcc undercast, TCC COVERING mepilex border for padding to achilles -Mepilex Border 1 -Promogran Neida Matter 1 Treatment Response Procedure Tolerated Well Vital Signs Pulse Rate (60-100) 85 Pulse Location Monitor Respiratory Rate (12-18) 16 Respiratory rate source Observation Oxygen Delivery Method Room Air Blood Pressure (90/60-120/80) 119/76 Blood Pressure Mean (mm Hg) 90 Source Monitor Position Sitting Blood Pressure Location Left Arm Pain Scale: 0-10 Numeric Is Patient Pain Free? Yes Yes Yes WC - Visit Discharge Discharge Condition Stable Stable Stable Ambulatory Status Ambulatory,Cane Ambulatory Ambulatory Transportation Private Auto Private Auto Private Auto Medication Reconcilliation completed & No provided to patient/care provider Clinical Summary of Care Provided Yes Wound debrided: plantar heel Laterality: Left Type of Debridement: Excisional debridement Anesthesia Used: 5% Lidocaine Gel Depth: in the subcutaneous layer Percentage of wound debrided: 100 Instrument Used: #15 blade Tissue Removed: fibrous, devitalized subcutaneous, biofilm, slough Severity: Fat Layer Exposed Amount of bleeding with debridement: Mild Bleeding Controlled with: Pressure - She is probably just vaginal Patient tolerated procedure well Assessment/Plan Active Problems Lupus (systemic lupus erythematosus) (Chronic) Ulcer of left foot with fat layer exposed (Chronic) Calcaneal gait (Chronic) left Delayed wound healing (Chronic) Pressure ulcer of unspecified heel, stage 2 (Chronic) Assessment: Left heel ulcer, chronic pressure with delayed healing. Lupus. Lower extremity edema. Left calcaneus gait. MRSA infection with cellulitis, improving Plan: I reviewed and discussed her case. Subcutaneous excisional debridement was performed as noted in the clinical panel. She was reassured that there are no local signs of infection today. She completed a course of epifix and has responded well. Additionally a total contact cast was applied after verbal consent was obtained. Neida was applied prior to the cast application. This was applied in a rectus and well-padded manner, with additional padding to the posterior leg along the site of her Achilles scar. She tolerated this well. She is advised to keep her dressing and cast clean, dry, and intact until follow-up next week. To maintain strict nonweightbearing status with the knee roller. She was advised to maintain a good balanced whole food diet with adequate protein and nutrients to optimize healing. A prescription for Yosvany was provided and she was advised on proper use. I offered her a power barker referral as well and she canceled this appointment. She is trying to reschedule. She understands her systemic inflammatory disease of lupus may also be contributing to delayed healing. She will avoid antirheumatic medications at this time. She was advised to avoid prednisone use and will also hold the Plaquenil at this time unless she has an intense flareup. This have reviewed verbally with Dr. Pratt. Dr. Gutierrez does not anticipate cymbalta is slowing her healing progress however will confirm at her follow up. Dr. Gutierrez discussed conservative or surgical intervention; Performing a flap was discussed including with a bilobed rotational versus other rotational flap. Her concern with this is that she has a calcaneus gait and she is prone to further breakdown even with that surgical intervention. She offered her a surgery to reapproximate and shorten her Achilles tendon. It is noted she had prior surgery in this area with an injury in the early postoperative setting. She will consider this and is not electing to proceed forward with this at this time. Dr. Gutierrez also recommended she gets screening for venous insufficiency completed if she has not already had this done at an outside facility. I answered all of her questions. She was advised to return to the wound healing center in 1 week. To call sooner if she has any questions or concerns or any evidence of infection development. Note: [employer] speech recognition knot picker cloth software was used to create portions of this document. Sound-alike and misspelled words, as well as other knot picker cloth errors may be contained in the documentation.
== END 2020-08-08 23:59 ==
LOC: WC 13:15
PROVIDERS: PCP Family Medicine; Referring Provider Podiatrist Foot & Ankle Surgery; Visit Provider Podiatrist
DX: L97.422 Non-pressure chronic ulcer of left heel and midfoot with fat layer exposed (principal); M32.9 Systemic lupus erythematosus, unspecified; R26.89 Other abnormalities of gait and mobility; Z86.14 Personal history of Methicillin resistant Staphylococcus aureus infection; G25.81 Restless legs syndrome; G47.33 Obstructive sleep apnea (adult) (pediatric); K58.9 Irritable bowel syndrome, unspecified; E78.5 Hyperlipidemia, unspecified; R60.0 Localized edema
CPT/HCPCS: 11042; 15275; 29445; Q4186

== ENCOUNTER 2020-09-02 10:45 | Outpatient (RCR) | payer MEDICARE, BC, SELFPAY ==
[2020-08-09 00:14] VITALS: BP 130/81; PULSE 98; RESP 16; TEMP 36.2
[2020-08-10 10:26] VITALS: BP 137/82; PULSE 99; RESP 18; TEMP 36.1; BMI 39.5
[2020-08-10 12:17] VITALS: BP 125/68; PULSE 92
--- NOTE | 2020-08-10 12:45 | PN.PCM_ITS ---
(1) Pressure ulcer of left foot, unstageable Status: Acute Code(s): L89.890 - Pressure ulcer of other site, unstageable (2) Ulcer of left foot with fat layer exposed Status: Chronic Code(s): L97.522 - Non-pressure chronic ulcer of other part of left foot with fat layer exposed (3) Pressure ulcer of unspecified heel, stage 2 Status: Chronic Qualifiers: Laterality: left Qualified Code(s): L89.622 - Pressure ulcer of left heel, stage 2 Code(s): L89.602 - Pressure ulcer of unspecified heel, stage 2 (4) Lupus (systemic lupus erythematosus) Status: Chronic Qualifiers: Systemic lupus erythematosus type: unspecified Systemic lupus erythematosus organ involvement: unspecified Qualified Code(s): M32.9 - Systemic lupus erythematosus, unspecified Code(s): M32.9 - Systemic lupus erythematosus, unspecified Type of Wound Date of Service: 08/10/20 Chief Complaint: Left heel ulcer History of Wound: This pleasant 55-year-old female with significant past medical history of lupus, history of panic attack, depression, history of delayed healing, hyperlipidemia, irritable bowel syndrome, memory loss, restless leg syndrome, and obstructive sleep apnea is here for follow-up of left heel ulcer. She denies fever, chill, nausea, vomiting. Her left foot pain is decreased. She has discontinued her lupus medication as advised (managed by rheumatology). She has been compliant with her total contact cast. Progress of Wound: Patient comes in today for a nurse visit with concern that her contact cast has cracked. The cast started to bother her sometime over the weekend. She didn't want to go to the ED because she didn't feel that this was a real emergency. Once the cast was removed, she now has new cluster of uclers on her left medial foot where she felt a rubbing from the cast. - Physical Exam Vital Signs Temp Pulse Resp BP 96.9 F L 92 18 125/68 H 08/10/20 10:26 08/10/20 12:17 08/10/20 10:26 08/10/20 12:17 General: Alert, Oriented x3, Cooperative HEENT: Atraumatic Oral: Moist Mucosa Lungs: Normal air movement Cardiovascular: Regular rate Abdomen: Obese Extremities: Capillary Refill Less than 3 Seconds Skin: Ulcer/ Wound - Left medial foot patient has new ulcer cluster of three opened areas. Left heal ulcer is stable. Wound Measurements and Assessment WC - Nurse 1 - General Ulcer Measurement Start: 08/10/20 10:26 Freq: Status: Active Protocol: Activity Type Activity Date Activity User E-Sign Co-Sign Detail Recorded Client Recorded Date Recorded By Document 08/10/20 10:26 DL [id number] 08/10/20 10:43 DL 08/10/20 10:26 Wound Center Nurse 1 [Ulcer Assessment] #3 L Med Ankle cluster -Current Size (cm) - Length 2.4 -Current Size (cm) - Width 1 -Current Size (cm) - Depth 0.1 -Total Square Cm 2.4 -Photo Taken Yes -Exudate Amt Small -Exudate Type Serosanguineous -Wound Margin Distinct, Outline Attached -Granulation Amt None Present (0 %) -Necrosis Amt Large (67-100%) -Necrotic Tissue Type Adherent Slough -Structure Exposed N/A -Texture (Cecelia-wound Skin Appearance) Scarring -Moisture (Cecelia-wound Skin Appearance No Abnormality ) -Color (Cecelia-wound Skin Appearance) Erythema -Temperature (Cecelia-wound Skin No Abnormality Appearance) (Pt Warm) -Tenderness on Palpation (Cecelia-wound No Skin Appearance) -Ulcer Cleansing Wound Cleanser -Foul Odor after Cleansing No -Anesthetic Used 4% Lidocaine Solution #1 Left Heel- Plantar -Current Size (cm) - Length 0.3 -Current Size (cm) - Width 0.6 -Current Size (cm) - Depth 0.1 -Total Square Cm 0.18 -Photo Taken No -Exudate Amt None Present -Wound Margin Distinct, Outline Attached -Granulation Amt Small (1-33%) -Granulation Quality [place] -Necrosis Amt Small (1-33%) -Necrotic Tissue Type Eschar -Structure Exposed N/A -Texture (Cecelia-wound Skin Appearance) Scarring -Moisture (Cecelia-wound Skin Appearance No Abnormality ) -Temperature (Cecelia-wound Skin No Abnormality Appearance) (Pt Warm) -Tenderness on Palpation (Cecelia-wound No Skin Appearance) -Ulcer Cleansing Wound Cleanser -Foul Odor after Cleansing No -Anesthetic Used 4% Lidocaine Solution ARACELI - Nurse 2 - General Ulcer CM Notes Start: 08/10/20 10:26 Freq: Status: Active Protocol: Activity Type Activity Date Activity User E-Sign Co-Sign Detail Recorded Client Recorded Date Recorded By Document 08/10/20 11:08 [id number] 08/10/20 11:11 STEPHANIE 08/10/20 11:08 Wound Center Nurse 2 [Procedure/Treatment] #3 L Med Ankle cluster -Time 11:08 -Correct Patient Yes -Correct Side, Site, Position Yes -Correct Procedure Yes -Procedure Performed Yes -Type of Procedure Debridement -Clinical Debridement Subcutaneous -Tissue Removed Subcutaneous -Post Debridement (cm) - Length 1.4 -Post Debridement (cm) - Width 2.7 -Post Debridement (cm) - Depth 0.1 -Total Square (Post) (cm) 3.78 -Area of Debridement (cm) - Length 1.4 -Area of Debridement (cm) - Width 2.7 -Total Square (Area) (cm) 3.78 -Tunneling No -Undermining/Tunneling No -Circular Undermining No -Wound/Ulcer Outcome Not Healed -Ulcer Cleansing Rinsed/ Irrigated with Saline -Foul Odor after Cleansing No -Bioengineered Tissue No -Bleeding Controlled with Pressure -Offloading No -Treatment Response Procedure Tolerated Well -Debridement - Subq, 1st 20sq cm Yes #1 Left Heel- Plantar -Correct Patient No -Correct Side, Site, Position No -Correct Procedure No -Procedure Performed No -Wound/Ulcer Outcome Not Healed [See Physician Procedure note for Specifics] Pain Scale: 0-10 Numeric [Pain] -Is Patient Pain Free? Yes WC - Nurse 3 - General Ulcer D/C NN Start: 08/10/20 10:26 Freq: Status: Active Protocol: Activity Type Activity Date Activity User E-Sign Co-Sign Detail Recorded Client Recorded Date Recorded By Document 08/10/20 12:17 DL [id number] 08/10/20 12:18 DL 08/10/20 12:17 Wound Care Nurse 3 [Wound Dressing] #3 L Med Ankle cluster -Ulcer Cleansing Wound Cleanser -Foul Odor after Cleansing No -Primary Dressing Applied Aquacel AG 4x4 -Primary Dressing Covered/Secured Dry Gauze & with Roll Gauze, Secured with Tape -Aquacel AG 4x4 1 #1 Left Heel- Plantar -Ulcer Cleansing Wound Cleanser -Foul Odor after Cleansing No -Other Dressing aquacel ag -Primary Dressing Covered/Secured Dry Gauze & with Roll Gauze, Secured with Tape [Post Procedure Tolerated] -Treatment Response Procedure Tolerated Well Vital Signs [Pulse] -Pulse Rate (60-100) 92 -Pulse Location Monitor [Blood Pressure] -Blood Pressure (90/60-120/80) 125/68 H -Blood Pressure Mean (mm Hg) 87 -Source Monitor Pain Scale: 0-10 Numeric [Pain] -Is Patient Pain Free? Yes WC - Visit Discharge [Visit Discharge Information] -Discharge Condition Stable -Ambulatory Status Ambulatory -Transportation Private Auto Musculoskeletal: Tenderness Neurological: Cranial nerves II-XII grossly intact Psych/Mental Status: Normal Affect, Appropriate Debridement Note Post-Debridement Measurements/Treatment - Nurse 2 - General Ulcer CM Notes Start: 08/10/20 10:26 Freq: Status: Active Protocol: Activity Type Activity Date Activity User E-Sign Co-Sign Detail Recorded Client Recorded Date Recorded By Document 08/10/20 11:08 STEPHANIE [id number] 08/10/20 11:11 STEPHANIE 08/10/20 11:08 Wound Center Nurse 2 #3 L Med Ankle cluster -Time 11:08 -Correct Patient Yes -Correct Side, Site, Position Yes -Correct Procedure Yes -Procedure Performed Yes -Type of Procedure Debridement -Clinical Debridement Subcutaneous -Tissue Removed Subcutaneous -Post Debridement (cm) - Length 1.4 -Post Debridement (cm) - Width 2.7 -Post Debridement (cm) - Depth 0.1 -Total Square (Post) (cm) 3.78 -Area of Debridement (cm) - Length 1.4 -Area of Debridement (cm) - Width 2.7 -Total Square (Area) (cm) 3.78 -Tunneling No -Undermining/Tunneling No -Circular Undermining No -Wound/Ulcer Outcome Not Healed -Ulcer Cleansing Rinsed/ Irrigated with Saline -Foul Odor after Cleansing No -Bioengineered Tissue No -Bleeding Controlled with Pressure -Offloading No -Treatment Response Procedure Tolerated Well -Debridement - Subq, 1st 20sq cm Yes #1 Left Heel- Plantar -Correct Patient No -Correct Side, Site, Position No -Correct Procedure No -Procedure Performed No -Wound/Ulcer Outcome Not Healed Pain Scale: 0-10 Numeric Is Patient Pain Free? Yes - Nurse 3 - General Ulcer D/C NN Start: 08/10/20 10:26 Freq: Status: Active Protocol: Activity Type Activity Date Activity User E-Sign Co-Sign Detail Recorded Client Recorded Date Recorded By Document 08/10/20 12:17 DL [id number] 08/10/20 12:18 DL 08/10/20 12:17 Wound Care Nurse 3 #3 L Med Ankle cluster -Ulcer Cleansing Wound Cleanser -Foul Odor after Cleansing No -Primary Dressing Applied Aquacel AG 4x4 -Primary Dressing Covered/Secured with Dry Gauze & Roll Gauze, Secured with Tape -Aquacel AG 4x4 1 #1 Left Heel- Plantar -Ulcer Cleansing Wound Cleanser -Foul Odor after Cleansing No -Other Dressing aquacel ag -Primary Dressing Covered/Secured with Dry Gauze & Roll Gauze, Secured with Tape Treatment Response Procedure Tolerated Well Vital Signs Pulse Rate (60-100) 92 Pulse Location Monitor Blood Pressure (90/60-120/80) 125/68 H Blood Pressure Mean (mm Hg) 87 Source Monitor Pain Scale: 0-10 Numeric Is Patient Pain Free? Yes WC - Visit Discharge Discharge Condition Stable Ambulatory Status Ambulatory Transportation Private Auto Wound debrided: medial foot cluster Laterality: Left Type of Debridement: Excisional debridement Anesthesia Used: 5% Lidocaine Gel Depth: Down to and including healthy tissue, in the subcutaneous layer Percentage of wound debrided: 100 Instrument Used: 3mm curette Tissue Removed: Subcutaneous tissue and slough Severity: Limited To Skin Breakdown Amount of bleeding with debridement: None Patient tolerated procedure well Assessment/Plan Active Problems Lupus (systemic lupus erythematosus) (Chronic) Ulcer of left foot with fat layer exposed (Chronic) Pressure ulcer of unspecified heel, stage 2 (Chronic) Pressure ulcer of left foot, unstageable (Acute) Assessment: Left heel ulcer, chronic pressure with delayed healing. Lupus. Lower extremity edema. Left calcaneus gait. MRSA infection with cellulitis, improving Plan: I reviewed and discussed her case. Subcutaneous excisional debridement was performed as noted in the clinical panel. She was reassured that there are no local signs of infection today. She completed a course of epifix and has responded well. Additionally a total contact cast was applied after verbal consent was obtained. Michael was applied prior to the cast application. This was applied in a rectus and well-padded manner, with additional padding to the posterior leg along the site of her Achilles scar. She tolerated this well. She is advised to keep her dressing and cast clean, dry, and intact until follow-up next week. To maintain strict nonweightbearing status with the knee roller. She was advised to maintain a good balanced whole food diet with adequate protein and nutrients to optimize healing. A prescription for Yosvany was provided and she was advised on proper use. I offered her a mentally retarded teacher referral as well and she canceled this appointment. She is trying to reschedule. She understands her systemic inflammatory disease of lupus may also be contributing to delayed healing. She will avoid antirheumatic medications at this time. She was advised to avoid prednisone use and will also hold the Plaquenil at this time unless she has an intense flareup. This have reviewed verbally with Dr. Pratt. Dr. Gutierrez does not anticipate cymbalta is slowing her healing progress however will confirm at her follow up. Dr. Gutierrez discussed conservative or surgical intervention; Performing a flap was discussed including with a bilobed rotational versus other rotational flap. Her concern with this is that she has a calcaneus gait and she is prone to further breakdown even with that surgical intervention. She offered her a surgery to reapproximate and shorten her Achilles tendon. It is noted she had prior surgery in this area with an injury in the early postoperative setting. She will consider this and is not electing to proceed forward with this at this time. Dr. Gutierrez also recommended she gets screening for venous insufficiency completed if she has not already had this done at an outside facility. I answered all of her questions. She was advised to return to the wound healing center in 1 week. To call sooner if she has any questions or concerns or any evidence of infection development. Note: [employer] speech recognition top distribution executive software was used to create portions of this document. Sound-alike and misspelled words, as well as other top distribution executive errors may be contained in the documentation. 08/10/20- Patient came in today for a nurse visit because she was concerned her contact cast obtained a crack in it over the weekend. When the cast was removed, she has a new pressure ulcer on her left medial foot. The area was debrided, but no bleeding was obtained. Will place a moistened silver or michael covered by adaptic. She will also place that on her heel ulcer (which was not debrided today). Instructed her to use her knee walker to help her prevent weight bearing. She has an appointment with Dr. Gutierrez on Monday, so she will be able to further evaluate her foot. [id number]: [id number] [place] subq tissue 20 sq cm/<
[2020-08-12 14:57] VITALS: BP 143/87; PULSE 105; RESP 16; TEMP 36.2; BMI 39.5
[2020-08-12 15:23] VITALS: BP 135/71
[2020-08-12 15:26] VITALS: BP 135/71; PULSE 94
--- NOTE | 2020-08-12 21:58 | PN.PCM_ITS ---
(1) Tear of skin of plantar aspect of left foot Status: Acute Qualifiers: Encounter type: initial encounter Qualified Code(s): S91.312A - Laceration without foreign body, left foot, initial encounter Code(s): S91.312A - Laceration without foreign body, left foot, initial encounter (2) Lupus (systemic lupus erythematosus) Status: Chronic Qualifiers: Systemic lupus erythematosus type: unspecified Systemic lupus erythematosus organ involvement: unspecified Qualified Code(s): M32.9 - Systemic lupus erythematosus, unspecified Code(s): M32.9 - Systemic lupus erythematosus, unspecified (3) Ulcer of left foot with fat layer exposed Status: Chronic Code(s): L97.522 - Non-pressure chronic ulcer of other part of left foot with fat layer exposed (4) Calcaneal gait Status: Chronic Code(s): R26.89 - Other abnormalities of gait and mobility Comment: left (5) Delayed wound healing Status: Chronic Code(s): T14.8XXD - Other injury of unspecified body region, subsequent encounter Type of Wound Date of Service: 08/12/20 Chief Complaint: Left heel ulcer History of Wound: This pleasant 55-year-old female with significant past medical history of lupus, history of panic attack, depression, history of delayed healing, hyperlipidemia, irritable bowel syndrome, memory loss, restless leg syndrome, and obstructive sleep apnea is here for follow-up of left heel ulcer. She denies fever, chill, nausea, vomiting. Her left foot pain is decreased. She has discontinued her lupus medication as advised (managed by rheumatology). Her cast was removed on Monday due to a crack which a new ulcer was identified. She has some lack of sensation and did not notice that the cast was cutting into her skin. Progress of Wound: Patient comes in today for follow-up of left heel ulcer and also new ulcers to the medial aspect of her foot. - Physical Exam Vital Signs Temp Pulse Resp BP 97.1 F L 94 16 135/71 H 08/12/20 14:57 08/12/20 15:26 08/12/20 14:57 08/12/20 15:26 General: Alert, Oriented x3, Cooperative, No apparent distress HEENT: Atraumatic Extremities: No cyanosis, Capillary Refill Less than 3 Seconds, No Calf Tenderness, Diminished Peripheral Pulses, Edema Skin: Ulcer/ Wound - No purulence, erythema, streaking, odor, infection. The plantar heel ulcer has peripheral epithelialization and the base is granular. The medial new foot ulcers are fibrous without deep tissue exposure. The adjac ent skin is hairless and atrophic. Wound Measurements and Assessment WC - Nurse 1 - General Ulcer Measurement Start: 08/10/20 10:26 Freq: Status: Active Protocol: Activity Type Activity Date Activity User E-Sign Co-Sign Detail Recorded Client Recorded Date Recorded By Document 08/10/20 10:26 DL [id number] 08/10/20 10:43 DL Document 08/12/20 14:57 BM [id number] 08/12/20 15:03 BMF 08/10/20 08/12/20 10:26 14:57 Wound Center Nurse 1 [Ulcer Assessment] #3 L Med Ankle cluster -Combined with other wound No -Current Size (cm) - Length 2.4 2.5 -Current Size (cm) - Width 1 1.3 -Current Size (cm) - Depth 0.1 0.1 -Total Square Cm 2.4 3.25 -Photo Taken Yes No -Epithelialization None Present -Tunneling No -Undermining/Tunneling No -Circular Undermining No -Exudate Amt Small Small -Exudate Type Serosanguineous Serosanguineous -Wound Margin Distinct, Distinct, Outline Outline Attached Attached -Granulation Amt None Present (0 None Present (0 %) %) -Slough/Fibrin Yes -Necrosis Amt Large (67-100%) Large (67-100%) -Necrotic Tissue Type Adherent Slough Adherent Slough -Structure Exposed N/A -Texture (Cecelia-wound Skin Appearance) Scarring Assessed, Scarring -Moisture (Cecelia-wound Skin Appearance No Abnormality Assessed ) -Color (Cecelia-wound Skin Appearance) Erythema Assessed, Erythema -Temperature (Cecelia-wound Skin No Abnormality No Abnormality Appearance) (Pt Warm) (Pt Warm) -Tenderness on Palpation (Cecelia-wound No No Skin Appearance) -Ulcer Cleansing Wound Cleanser Rinsed/ Irrigated with Saline -Foul Odor after Cleansing No No -Anesthetic Used 4% Lidocaine 4% Lidocaine Solution Solution #1 Left Heel- Plantar -Combined with other wound No -Current Size (cm) - Length 0.3 0.3 -Current Size (cm) - Width 0.6 0.4 -Current Size (cm) - Depth 0.1 0.2 -Total Square Cm 0.18 0.12 -Photo Taken No No -Epithelialization None Present -Tunneling No -Undermining/Tunneling No -Circular Undermining No -Exudate Amt None Present Small -Exudate Type Serosanguineous -Wound Margin Distinct, Distinct, Outline Outline Attached Attached -Granulation Amt Small (1-33%) Large (67-100%) -Granulation Quality Turley Turley -Slough/Fibrin Yes -Necrosis Amt Small (1-33%) Small (1-33%) -Necrotic Tissue Type Eschar Adherent Slough -Structure Exposed N/A -Texture (Cecelia-wound Skin Appearance) Scarring Assessed,Callus ,Scarring -Moisture (Cecelia-wound Skin Appearance No Abnormality Assessed,Dry/ ) Scaly -Color (Cecelia-wound Skin Appearance) Assessed -Temperature (Cecelia-wound Skin No Abnormality No Abnormality Appearance) (Pt Warm) (Pt Warm) -Tenderness on Palpation (Cecelia-wound No No Skin Appearance) -Ulcer Cleansing Wound Cleanser Rinsed/ Irrigated with Saline -Foul Odor after Cleansing No No -Anesthetic Used 4% Lidocaine 4% Lidocaine Solution Solution WC - Nurse 2 - General Ulcer CM Notes Start: 08/10/20 10:26 Freq: Status: Active Protocol: Activity Type Activity Date Activity User E-Sign Co-Sign Detail Recorded Client Recorded Date Recorded By Document 08/10/20 11:08 [id number] 08/10/20 11:11 Document 08/12/20 15:16 [id number] 08/12/20 15:20 08/10/20 08/12/20 11:08 15:16 Wound Center Nurse 2 [Procedure/Treatment] #3 L Med Ankle cluster -Time 11: 15:17 -Correct Patient Yes Yes -Correct Side, Site, Position Yes Yes -Correct Procedure Yes Yes -Procedure Performed Yes Yes -Type of Procedure Debridement Debridement -Clinical Debridement Subcutaneous Subcutaneous -Tissue Removed Subcutaneous Subcutaneous -Post Debridement (cm) - Length 1.4 2.5 -Post Debridement (cm) - Width 2.7 1.4 -Post Debridement (cm) - Depth 0.1 0.2 -Total Square (Post) (cm) 3.78 3.50 -Area of Debridement (cm) - Length 1.4 2.5 -Area of Debridement (cm) - Width 2.7 1.4 -Total Square (Area) (cm) 3.78 3.50 -Tunneling No No -Undermining/Tunneling No No -Circular Undermining No No -Wound/Ulcer Outcome Not Healed Not Healed -Ulcer Cleansing Rinsed/ Rinsed/ Irrigated with Irrigated with Saline Saline -Foul Odor after Cleansing No No -Bioengineered Tissue No No -Bleeding Controlled with Pressure Pressure -Offloading No Yes -Type of Offloading Surgical Shoe -Treatment Response Procedure Procedure Tolerated Well Tolerated Well -Debridement - Subq, 1st 20sq cm Yes No #1 Left Heel- Plantar -Time 15:17 -Correct Patient No Yes -Correct Side, Site, Position No Yes -Correct Procedure No Yes -Procedure Performed No Yes -Type of Procedure Debridement -Clinical Debridement Subcutaneous -Tissue Removed Subcutaneous -Post Debridement (cm) - Length 0.4 -Post Debridement (cm) - Width 0.4 -Post Debridement (cm) - Depth 0.2 -Total Square (Post) (cm) 0.16 -Area of Debridement (cm) - Length 0.4 -Area of Debridement (cm) - Width 0.4 -Total Square (Area) (cm) 0.16 -Tunneling No -Undermining/Tunneling No -Circular Undermining No -Wound/Ulcer Outcome Not Healed Not Healed -Ulcer Cleansing Rinsed/ Irrigated with Saline -Foul Odor after Cleansing No -Bioengineered Tissue No -Bleeding Controlled with Pressure -Offloading Yes -Type of Offloading Surgical Shoe -Treatment Response Procedure Tolerated Well -Debridement - Subq, 1st 20sq cm Yes [See Physician Procedure note for Specifics] Pain Scale: 0-10 Numeric [Pain] -Is Patient Pain Free? Yes Yes - Nurse 3 - General Ulcer D/C NN Start: 08/10/20 10:26 Freq: Status: Active Protocol: Activity Type Activity Date Activity User E-Sign Co-Sign Detail Recorded Client Recorded Date Recorded By Document 08/10/20 12:17 DL [id number] 08/10/20 12:18 DL Document 08/12/20 15:23 JF [id number] 08/12/20 15:34 JF Document 08/12/20 15:26 MS [id number] 08/12/20 15:28 MS 08/10/20 08/12/20 08/12/20 12:17 15:23 15:26 Wound Care Nurse 3 [Wound Dressing] #3 L Med Ankle cluster -Ulcer Cleansing Wound Cleanser -Foul Odor after Cleansing No -Primary Dressing Applied Aquacel AG 4x4 Aquacel AG 2x2 Other -Other Dressing hydrocel -Primary Dressing Covered/Secured Dry Gauze & Dry Gauze, Dry Gauze, with Roll Gauze, Secured with Secured with Secured with Tape Tape Tape -Aquacel AG 4x4 1 0 -Aquacel AG 2x2 1 #1 Left Heel- Plantar -Ulcer Cleansing Wound Cleanser Rinsed/ Irrigated with Saline -Foul Odor after Cleansing No No -Primary Dressing Applied Aquacel AG 2x2 -Other Dressing aquacel ag -Primary Dressing Covered/Secured Dry Gauze & Dry Gauze, with Roll Gauze, Secured with Secured with Tape Tape -Aquacel AG 2x2 1 [Post Procedure Tolerated] -Treatment Response Procedure Tolerated Well Vital Signs [Pulse] -Pulse Rate (60-100) 92 94 -Pulse Location Monitor Monitor [Blood Pressure] -Blood Pressure (90/60-120/80) 125/68 H 135/71 H 135/71 H -Blood Pressure Mean (mm Hg) 87 92 92 -Source Monitor Monitor Monitor -Position Sitting Sitting -Blood Pressure Location Right Arm Left Arm Pain Scale: 0-10 Numeric [Pain] -Is Patient Pain Free? Yes Yes - Visit Discharge [Visit Discharge Information] -Discharge Condition Stable -Ambulatory Status Ambulatory -Transportation Private Auto Musculoskeletal: No Tenderness to Palpation of Joints or Extremities, Muscle Wasting Neurological: - - Lack of normal epicritic sensation is noted Psych/Mental Status: Normal Affect, Appropriate Debridement Note Post-Debridement Measurements/Treatment WC - Nurse 2 - General Ulcer CM Notes Start: 08/10/20 10:26 Freq: Status: Active Protocol: Activity Type Activity Date Activity User E-Sign Co-Sign Detail Recorded Client Recorded Date Recorded By Document 08/10/20 11:08 STEPHANIE [id number] 08/10/20 11:11 Document 08/12/20 15:16 [id number] 08/12/20 15:20 08/10/20 08/12/20 11:08 15:16 Wound Center Nurse 2 #3 L Med Ankle cluster -Time 11:08 15:17 -Correct Patient Yes Yes -Correct Side, Site, Position Yes Yes -Correct Procedure Yes Yes -Procedure Performed Yes Yes -Type of Procedure Debridement Debridement -Clinical Debridement Subcutaneous Subcutaneous -Tissue Removed Subcutaneous Subcutaneous -Post Debridement (cm) - Length 1.4 2.5 -Post Debridement (cm) - Width 2.7 1.4 -Post Debridement (cm) - Depth 0.1 0.2 -Total Square (Post) (cm) 3.78 3.50 -Area of Debridement (cm) - Length 1.4 2.5 -Area of Debridement (cm) - Width 2.7 1.4 -Total Square (Area) (cm) 3.78 3.50 -Tunneling No No -Undermining/Tunneling No No -Circular Undermining No No -Wound/Ulcer Outcome Not Healed Not Healed -Ulcer Cleansing Rinsed/ Rinsed/ Irrigated with Irrigated with Saline Saline -Foul Odor after Cleansing No No -Bioengineered Tissue No No -Bleeding Controlled with Pressure Pressure -Offloading No Yes -Type of Offloading Surgical Shoe -Treatment Response Procedure Procedure Tolerated Well Tolerated Well -Debridement - Subq, 1st 20sq cm Yes No #1 Left Heel- Plantar -Time 15:17 -Correct Patient No Yes -Correct Side, Site, Position No Yes -Correct Procedure No Yes -Procedure Performed No Yes -Type of Procedure Debridement -Clinical Debridement Subcutaneous -Tissue Removed Subcutaneous -Post Debridement (cm) - Length 0.4 -Post Debridement (cm) - Width 0.4 -Post Debridement (cm) - Depth 0.2 -Total Square (Post) (cm) 0.16 -Area of Debridement (cm) - Length 0.4 -Area of Debridement (cm) - Width 0.4 -Total Square (Area) (cm) 0.16 -Tunneling No -Undermining/Tunneling No -Circular Undermining No -Wound/Ulcer Outcome Not Healed Not Healed -Ulcer Cleansing Rinsed/ Irrigated with Saline -Foul Odor after Cleansing No -Bioengineered Tissue No -Bleeding Controlled with Pressure -Offloading Yes -Type of Offloading Surgical Shoe -Treatment Response Procedure Tolerated Well -Debridement - Subq, 1st 20sq cm Yes Pain Scale: 0-10 Numeric Is Patient Pain Free? Yes Yes WC - Nurse 3 - General Ulcer D/C NN Start: 08/10/20 10:26 Freq: Status: Active Protocol: Activity Type Activity Date Activity User E-Sign Co-Sign Detail Recorded Client Recorded Date Recorded By Document 08/10/20 12:17 DL [id number] 08/10/20 12:18 DL Document 08/12/20 15:23 JF [id number] 08/12/20 15:34 JF Document 08/12/20 15:26 MS [id number] 08/12/20 15:28 MS 08/10/20 08/12/20 08/12/20 12:17 15:23 15:26 Wound Care Nurse 3 #3 L Med Ankle cluster -Ulcer Cleansing Wound Cleanser -Foul Odor after Cleansing No -Primary Dressing Applied Aquacel AG 4x4 Aquacel AG 2x2 Other -Other Dressing hydrocel -Primary Dressing Covered/Secured with Dry Gauze & Dry Gauze, Dry Gauze, Roll Gauze, Secured with Secured with Secured with Tape Tape Tape -Aquacel AG 4x4 1 0 -Aquacel AG 2x2 1 #1 Left Heel- Plantar -Ulcer Cleansing Wound Cleanser Rinsed/ Irrigated with Saline -Foul Odor after Cleansing No No -Primary Dressing Applied Aquacel AG 2x2 -Other Dressing aquacel ag -Primary Dressing Covered/Secured with Dry Gauze & Dry Gauze, Roll Gauze, Secured with Secured with Tape Tape -Aquacel AG 2x2 1 Treatment Response Procedure Tolerated Well Vital Signs Pulse Rate (60-100) 92 94 Pulse Location Monitor Monitor Blood Pressure (90/60-120/80) 125/68 H 135/71 H 135/71 H Blood Pressure Mean (mm Hg) 87 92 92 Source Monitor Monitor Monitor Position Sitting Sitting Blood Pressure Location Right Arm Left Arm Pain Scale: 0-10 Numeric Is Patient Pain Free? Yes Yes WC - Visit Discharge Discharge Condition Stable Ambulatory Status Ambulatory Transportation Private Auto Wound debrided: plantar heel, medial foot x 3 (cluster) Laterality: Left Type of Debridement: Excisional debridement Anesthesia Used: 5% Lidocaine Gel Depth: in the subcutaneous layer Percentage of wound debrided: 100 Instrument Used: #15 blade, Forceps Tissue Removed: fibrous, devitalized subcutaneous, biofilm, slough Severity: Fat Layer Exposed Amount of bleeding with debridement: Mild Bleeding Controlled with: Pressure Patient tolerated procedure well Assessment/Plan Active Problems Lupus (systemic lupus erythematosus) (Chronic) Ulcer of left foot with fat layer exposed (Chronic) Calcaneal gait (Chronic) left Delayed wound healing (Chronic) Pressure ulcer of unspecified heel, stage 2 (Chronic) Pressure ulcer of left foot, unstageable (Acute) Tear of skin of plantar aspect of left foot (Acute) Assessment: Left heel ulcer, chronic pressure with delayed healing. New medial foot cluster ulcers noted, fibrous without infection. Lupus. Lower extremity edema. Left calcaneus gait. MRSA infection with cellulitis, history and currently resolved Plan: I reviewed and discussed her case. Subcutaneous excisional debridement was performed as noted in the clinical panel. She was reassured that there are no local signs of infection today. She completed a course of epifix and has responded well. To change the plantar heel ulcer site with Michael or Aquacel Ag. She has Santyl at home and she was advised to put this on the medial ulcer site which appears to be fibrous. She tolerated this well. She is advised to keep her dressing clean, dry, and intact until follow-up next week. To maintain strict nonweightbearing status with the knee roller. She was advised to maintain a good balanced whole food diet with adequate protein and nutrients to optimize healing. A prescription for Yosvany was provided and she was advised on proper use. I offered her a assistant offset press operator referral as well and she canceled this appointment. She is trying to reschedule. She understands her systemic inflammatory disease of lupus may also be contributing to delayed healing. She will avoid antirheumatic medications at this time. She was advised to avoid prednisone use and will also hold the Plaquenil at this time unless she has an intense flareup. This have reviewed verbally with Dr. Pratt. I answered all of her questions. She was advised to return to the wound healing center in 1 week. To call sooner if she has any questions or concerns or any evidence of infection development. An updated total contact cast will be considered in the future. Note: [employer] speech recognition medical assistant secretary software was used to create portions of this document. Sound-alike and misspelled words, as well as other medical assistant secretary errors may be contained in the documentation. 08/10/20- Patient came in today for a nurse visit because she was concerned her contact cast obtained a crack in it over the weekend. When the cast was removed, she has a new pressure ulcer on her left medial foot. The area was debrided, but no bleeding was obtained. Will place a moistened silver or michael covered by adaptic. She will also place that on her heel ulcer (which was not debrided today). Instructed her to use her knee walker to help her prevent weight bearing. She has an appointment with Dr. Gutierrez on Monday, so she will be able to further evaluate her foot.
[2020-08-19 13:02] VITALS: RESP 16; TEMP 35.7; BMI 39.5
[2020-08-19 13:07] VITALS: BP 105/70; PULSE 94; BMI 39.5
[2020-08-19 13:24] VITALS: BP 110/70
--- NOTE | 2020-08-19 22:42 | PN.PCM_ITS ---
(1) Tear of skin of plantar aspect of left foot Status: Acute Qualifiers: Encounter type: subsequent encounter Qualified Code(s): S91.312D - Laceration without foreign body, left foot, subsequent encounter Code(s): S91.312A - Laceration without foreign body, left foot, initial encounter (2) Lupus (systemic lupus erythematosus) Status: Chronic Qualifiers: Systemic lupus erythematosus type: unspecified Systemic lupus erythematosus organ involvement: unspecified Qualified Code(s): M32.9 - Systemic lupus erythematosus, unspecified Code(s): M32.9 - Systemic lupus erythematosus, unspecified (3) Ulcer of left foot with fat layer exposed Status: Chronic Code(s): L97.522 - Non-pressure chronic ulcer of other part of left foot with fat layer exposed (4) Calcaneal gait Status: Chronic Code(s): R26.89 - Other abnormalities of gait and mobility Comment: left (5) Delayed wound healing Status: Chronic Code(s): T14.8XXD - Other injury of unspecified body region, subsequent encounter Type of Wound Date of Service: 08/19/20 Chief Complaint: Left heel ulcer History of Wound: This pleasant 55-year-old female with significant past medical history of lupus, history of panic attack, depression, history of delayed healing, hyperlipidemia, irritable bowel syndrome, memory loss, restless leg syndrome, and obstructive sleep apnea is here for follow-up of left heel ulcer. She denies fever, chill, nausea, vomiting. Her left foot pain is decreased. She has discontinued her lupus medication as advised (managed by rheumatology). She has changed her dressing daily as advised with Jaya. She is amendable to proceed with total contact cast again today. Progress of Wound: Improving medial foot ulcers. Slight worsening of plantar heel ulcers - Physical Exam Vital Signs Temp Pulse Resp BP 96.3 F L 94 16 110/70 08/19/20 13:02 08/19/20 13:07 08/19/20 13:02 08/19/20 13:24 General: Alert, Oriented x3, Cooperative, No apparent distress Extremities: No cyanosis, Capillary Refill Less than 3 Seconds, No Calf Tenderness, Diminished Peripheral Pulses, Edema Skin: Ulcer/ Wound - No purulence, erythema, string, odor, infection. Reduced fibrous tissue noted. Slight increase in plantar heel ulcer depth and the skin tear now has a granular base. Her skin is atrophic and hairless. Wound Measurements and Assessment WC - Nurse 1 - General Ulcer Measurement Start: 08/10/20 10:26 Freq: Status: Active Protocol: Activity Type Activity Date Activity User E-Sign Co-Sign Detail Recorded Client Recorded Date Recorded By Document 08/19/20 13:02 [facility] [id number] 08/19/20 13:07 [facility] 08/19/20 13:02 Wound Center Nurse 1 [Ulcer Assessment] #4- L LAT HEEL -Combined with other wound No -Current Size (cm) - Length 7 -Current Size (cm) - Width 0.8 -Current Size (cm) - Depth 0.2 -Total Square Cm 5.6 -Date of Last Picture (Recall this 08/19/20 field) -Photo Taken Yes -Epithelialization None Present -Tunneling No -Undermining/Tunneling No -Circular Undermining No -Exudate Amt Small -Exudate Type Serosanguineous -Wound Margin Distinct, Outline Attached -Granulation Amt Large (67-100%) -Granulation Quality [place] -Slough/Fibrin Yes -Necrosis Amt Small (1-33%) -Necrotic Tissue Type Adherent Slough -Texture (Cecelia-wound Skin Appearance) Assessed, Scarring -Moisture (Cecelia-wound Skin Appearance Assessed,Dry/ ) Scaly -Color (Cecelia-wound Skin Appearance) Assessed -Temperature (Cecelia-wound Skin No Abnormality Appearance) (Pt Warm) -Tenderness on Palpation (Cecelia-wound No Skin Appearance) -Ulcer Cleansing Rinsed/ Irrigated with Saline -Foul Odor after Cleansing No -Anesthetic Used 4% Lidocaine Solution #3 L Med Ankle cluster -Combined with other wound No -Current Size (cm) - Length 2 -Current Size (cm) - Width 0.5 -Current Size (cm) - Depth 0.2 -Total Square Cm 1.0 -Photo Taken No -Epithelialization None Present -Tunneling No -Undermining/Tunneling No -Circular Undermining No -Exudate Amt Small -Exudate Type Serosanguineous -Wound Margin Distinct, Outline Attached -Granulation Amt Small (1-33%) -Granulation Quality [place] -Texture (Cecelia-wound Skin Appearance) Assessed -Moisture (Cecelia-wound Skin Appearance Assessed ) -Color (Cecelia-wound Skin Appearance) Assessed -Temperature (Cecelia-wound Skin No Abnormality Appearance) (Pt Warm) -Tenderness on Palpation (Cecelia-wound No Skin Appearance) -Ulcer Cleansing Rinsed/ Irrigated with Saline -Foul Odor after Cleansing No -Anesthetic Used 4% Lidocaine Solution #1 Left Heel- Plantar -Combined with other wound No -Current Size (cm) - Length 0.5 -Current Size (cm) - Width 0.7 -Current Size (cm) - Depth 0.3 -Total Square Cm 0.35 -Photo Taken No -Epithelialization None Present -Tunneling No -Undermining/Tunneling Yes -Undermining/Tunneling Starts (O' 7 clock) -Undermining/Tunneling Ends (O'clock) 2 -Maximum Distance (cm) 0.3 -Circular Undermining No -Exudate Amt Small -Exudate Type Serosanguineous -Wound Margin Distinct, Outline Attached -Granulation Amt Medium (34-66%) -Granulation Quality [place] -Slough/Fibrin Yes -Necrosis Amt Medium (34-66%) -Necrotic Tissue Type Adherent Slough -Texture (Cecelia-wound Skin Appearance) Assessed, Scarring -Moisture (Cecelia-wound Skin Appearance Assessed ) -Color (Cecelia-wound Skin Appearance) Assessed -Temperature (Cecelia-wound Skin No Abnormality Appearance) (Pt Warm) -Tenderness on Palpation (Cecelia-wound No Skin Appearance) -Ulcer Cleansing Rinsed/ Irrigated with Saline -Foul Odor after Cleansing No -Anesthetic Used 4% Lidocaine Solution WC - Nurse 2 - General Ulcer CM Notes Start: 08/10/20 10:26 Freq: Status: Active Protocol: Activity Type Activity Date Activity User E-Sign Co-Sign Detail Recorded Client Recorded Date Recorded By Document 08/19/20 13:19 STEPHANIE [id number] 08/19/20 13:23 STEPHANIE 08/19/20 13:19 Wound Center Nurse 2 [Procedure/Treatment] #4- L LAT HEEL -Time 13:20 -Correct Patient Yes -Correct Side, Site, Position Yes -Correct Procedure Yes -Procedure Performed Yes -Type of Procedure Debridement -Clinical Debridement Subcutaneous -Tissue Removed Subcutaneous -Post Debridement (cm) - Length 1.8 -Post Debridement (cm) - Width 0.8 -Post Debridement (cm) - Depth 0.2 -Total Square (Post) (cm) 1.44 -Area of Debridement (cm) - Length 1.8 -Area of Debridement (cm) - Width 0.8 -Total Square (Area) (cm) 1.44 -Tunneling No -Undermining/Tunneling No -Circular Undermining No -Wound/Ulcer Outcome Not Healed -Ulcer Cleansing Rinsed/ Irrigated with Saline -Foul Odor after Cleansing No -Bioengineered Tissue No -Bleeding Controlled with Pressure -Offloading Yes -Type of Offloading Total Contact Cast (TCC) - Left ($) -Treatment Response Procedure Tolerated Well -Debridement - Subq, 1st 20sq cm No #3 L Med Ankle cluster -Time 13:21 -Correct Patient Yes -Correct Side, Site, Position Yes -Correct Procedure Yes -Procedure Performed Yes -Type of Procedure Debridement -Clinical Debridement Subcutaneous -Tissue Removed Subcutaneous -Post Debridement (cm) - Length 2.0 -Post Debridement (cm) - Width 0.6 -Post Debridement (cm) - Depth 0.2 -Total Square (Post) (cm) 1.20 -Area of Debridement (cm) - Length 2.0 -Area of Debridement (cm) - Width 0.6 -Total Square (Area) (cm) 1.20 -Tunneling No -Undermining/Tunneling No -Circular Undermining No -Wound/Ulcer Outcome Not Healed -Ulcer Cleansing Rinsed/ Irrigated with Saline -Foul Odor after Cleansing No -Bioengineered Tissue No -Bleeding Controlled with NA -Offloading No -Treatment Response Procedure Tolerated Well -Debridement - Subq, 20sq cm No #1 Left Heel- Plantar -Time 13:22 -Correct Patient Yes -Correct Side, Site, Position Yes -Correct Procedure Yes -Procedure Performed Yes -Type of Procedure Debridement -Clinical Debridement Subcutaneous -Tissue Removed Subcutaneous -Post Debridement (cm) - Length 0.6 -Post Debridement (cm) - Width 0.7 -Post Debridement (cm) - Depth 0.2 -Total Square (Post) (cm) 0.42 -Area of Debridement (cm) - Length 0.6 -Area of Debridement (cm) - Width 0.7 -Total Square (Area) (cm) 0.42 -Tunneling No -Undermining/Tunneling No -Circular Undermining No -Wound/Ulcer Outcome Not Healed -Ulcer Cleansing Rinsed/ Irrigated with Saline -Foul Odor after Cleansing No -Bioengineered Tissue No -Bleeding Controlled with Pressure -Offloading No -Treatment Response Procedure Tolerated Well -Debridement - Subq, 1st 20sq cm Yes [See Physician Procedure note for Specifics] Pain Scale: 0-10 Numeric [Pain] -Is Patient Pain Free? Yes - Nurse 3 - General Ulcer D/C NN Start: 08/10/20 10:26 Freq: Status: Active Protocol: Activity Type Activity Date Activity User E-Sign Co-Sign Detail Recorded Client Recorded Date Recorded By Document 08/19/20 13:24 [id number] 08/19/20 13:26 08/19/20 13:24 Wound Care Nurse 3 [Wound Dressing] #4- L LAT HEEL -Primary Dressing Applied Promogran Michael Matter -Other Dressing TCC primary layer -Promogran Michael Matter 1 #3 L Med Ankle cluster -Other Dressing michael , TCC primary layer #1 Left Heel- Plantar -Other Dressing michael, TCC primary layer [Post Procedure Tolerated] -Treatment Response Procedure Tolerated Well Vital Signs [Blood Pressure] -Blood Pressure (90/60-120/80) 110/70 -Blood Pressure Mean (mm Hg) 83 -Source Monitor -Position Semi-Fowlers -Blood Pressure Location Left Arm Pain Scale: 0-10 Numeric [Pain] -Is Patient Pain Free? Yes Teaching: Wound Center [Wound Center Education] (Items with an * have Printed Materials Available- Please identify what is given to patient under the Teaching materials given to patient and caregiver Section. Eliminating Foot Pressure -Person Taught Patient -Teaching Method Discussion -Response to teaching Verbalize understanding - Visit Discharge [Visit Discharge Information] -Discharge Condition Stable -Ambulatory Status Ambulatory -Transportation Private Auto -Medication Reconcilliation completed No & provided to patient/care provider -Clinical Summary of Care Provided Yes Musculoskeletal: Muscle Wasting, - - Calcaneus gait Neurological: - - Lack of normal epicritic sensation to light touch is consistent with neuropathy status Psych/Mental Status: Normal Affect, Appropriate Debridement Note Post-Debridement Measurements/Treatment - Nurse 2 - General Ulcer CM Notes Start: 08/10/20 10:26 Freq: Status: Active Protocol: Activity Type Activity Date Activity User E-Sign Co-Sign Detail Recorded Client Recorded Date Recorded By Document 08/10/20 11:08 [id number] 08/10/20 11:11 Document 08/12/20 15:16 [id number] 08/12/20 15:20 Document 08/19/20 13:19 [id number] 11/11/20 13:23 JF 08/10/20 08/12/20 08/19/20 11:08 15:16 13:19 Wound Center Nurse 2 #4- L LAT HEEL -Time 13:20 -Correct Patient Yes -Correct Side, Site, Position Yes -Correct Procedure Yes -Procedure Performed Yes -Type of Procedure Debridement -Clinical Debridement Subcutaneous -Tissue Removed Subcutaneous -Post Debridement (cm) - Length 1.8 -Post Debridement (cm) - Width 0.8 -Post Debridement (cm) - Depth 0.2 -Total Square (Post) (cm) 1.44 -Area of Debridement (cm) - Length 1.8 -Area of Debridement (cm) - Width 0.8 -Total Square (Area) (cm) 1.44 -Tunneling No -Undermining/Tunneling No -Circular Undermining No -Wound/Ulcer Outcome Not Healed -Ulcer Cleansing Rinsed/ Irrigated with Saline -Foul Odor after Cleansing No -Bioengineered Tissue No -Bleeding Controlled with Pressure -Offloading Yes -Type of Offloading Total Contact Cast (TCC) - Left ($) -Treatment Response Procedure Tolerated Well -Debridement - Subq, 1st 20sq cm No #3 L Med Ankle cluster -Time 11:08 15:17 13:21 -Correct Patient Yes Yes Yes -Correct Side, Site, Position Yes Yes Yes -Correct Procedure Yes Yes Yes -Procedure Performed Yes Yes Yes -Type of Procedure Debridement Debridement Debridement -Clinical Debridement Subcutaneous Subcutaneous Subcutaneous -Tissue Removed Subcutaneous Subcutaneous Subcutaneous -Post Debridement (cm) - Length 1.4 2.5 2.0 -Post Debridement (cm) - Width 2.7 1.4 0.6 -Post Debridement (cm) - Depth 0.1 0.2 0.2 -Total Square (Post) (cm) 3.78 3.50 1.20 -Area of Debridement (cm) - Length 1.4 2.5 2.0 -Area of Debridement (cm) - Width 2.7 1.4 0.6 -Total Square (Area) (cm) 3.78 3.50 1.20 -Tunneling No No No -Undermining/Tunneling No No No -Circular Undermining No No No -Wound/Ulcer Outcome Not Healed Not Healed Not Healed -Ulcer Cleansing Rinsed/ Rinsed/ Rinsed/ Irrigated with Irrigated with Irrigated with Saline Saline Saline -Foul Odor after Cleansing No No No -Bioengineered Tissue No No No -Bleeding Controlled with Pressure Pressure NA -Offloading No Yes No -Type of Offloading Surgical Shoe -Treatment Response Procedure Procedure Procedure Tolerated Well Tolerated Well Tolerated Well -Debridement - Subq, 1st 20sq cm Yes No No #1 Left Heel- Plantar -Time 15:17 13:22 -Correct Patient No Yes Yes -Correct Side, Site, Position No Yes Yes -Correct Procedure No Yes Yes -Procedure Performed No Yes Yes -Type of Procedure Debridement Debridement -Clinical Debridement Subcutaneous Subcutaneous -Tissue Removed Subcutaneous Subcutaneous -Post Debridement (cm) - Length 0.4 0.6 -Post Debridement (cm) - Width 0.4 0.7 -Post Debridement (cm) - Depth 0.2 0.2 -Total Square (Post) (cm) 0.16 0.42 -Area of Debridement (cm) - Length 0.4 0.6 -Area of Debridement (cm) - Width 0.4 0.7 -Total Square (Area) (cm) 0.16 0.42 -Tunneling No No -Undermining/Tunneling No No -Circular Undermining No No -Wound/Ulcer Outcome Not Healed Not Healed Not Healed -Ulcer Cleansing Rinsed/ Rinsed/ Irrigated with Irrigated with Saline Saline -Foul Odor after Cleansing No No -Bioengineered Tissue No No -Bleeding Controlled with Pressure Pressure -Offloading Yes No -Type of Offloading Surgical Shoe -Treatment Response Procedure Procedure Tolerated Well Tolerated Well -Debridement - Subq, 1st 20sq cm Yes Yes Pain Scale: 0-10 Numeric Is Patient Pain Free? Yes Yes Yes WC - Nurse 3 - General Ulcer D/C NN Start: 08/10/20 10:26 Freq: Status: Active Protocol: Activity Type Activity Date Activity User E-Sign Co-Sign Detail Recorded Client Recorded Date Recorded By Document 08/10/20 12:17 DL [id number] 08/10/20 12:18 DL Document 08/12/20 15:23 JF [id number] 08/12/20 15:34 JF Document 08/12/20 15:26 MS [id number] 08/12/20 15:28 MS Document 08/19/20 13:24 JF [id number] 08/19/20 13:26 JF 08/10/20 08/12/20 08/12/20 12:17 15:23 15:26 Wound Care Nurse 3 #4- L LAT HEEL -Primary Dressing Applied -Other Dressing -Promogran Michael Matter #3 L Med Ankle cluster -Ulcer Cleansing Wound Cleanser -Foul Odor after Cleansing No -Primary Dressing Applied Aquacel AG 4x4 Aquacel AG 2x2 Other -Other Dressing hydrocel -Primary Dressing Covered/Secured with Dry Gauze & Dry Gauze, Dry Gauze, Roll Gauze, Secured with Secured with Secured with Tape Tape Tape -Aquacel AG 4x4 1 0 -Aquacel AG 2x2 1 #1 Left Heel- Plantar -Ulcer Cleansing Wound Cleanser Rinsed/ Irrigated with Saline -Foul Odor after Cleansing No No -Primary Dressing Applied Aquacel AG 2x2 -Other Dressing aquacel ag -Primary Dressing Covered/Secured with Dry Gauze & Dry Gauze, Roll Gauze, Secured with Secured with Tape Tape -Aquacel AG 2x2 1 Treatment Response Procedure Tolerated Well Vital Signs Pulse Rate (60-100) 92 94 Pulse Location Monitor Monitor Blood Pressure (90/60-120/80) 125/68 H 135/71 H 135/71 H Blood Pressure Mean (mm Hg) 87 92 92 Source Monitor Monitor Monitor Position Sitting Sitting Blood Pressure Location Right Arm Left Arm Pain Scale: 0-10 Numeric Is Patient Pain Free? Yes Yes Teaching: Wound Center Eliminating Foot Pressure -Person Taught -Teaching Method -Response to teaching WC - Visit Discharge Discharge Condition Stable Ambulatory Status Ambulatory Transportation Private Auto Medication Reconcilliation completed & provided to patient/care provider Clinical Summary of Care Provided 08/19/20 13:24 Wound Care Nurse 3 #4- L LAT HEEL -Primary Dressing Applied Promogran Michael Matter -Other Dressing TCC primary layer -Promogran Michael Matter 1 #3 L Med Ankle cluster -Ulcer Cleansing -Foul Odor after Cleansing -Primary Dressing Applied -Other Dressing michael , TCC primary layer -Primary Dressing Covered/Secured with -Aquacel AG 4x4 -Aquacel AG 2x2 #1 Left Heel- Plantar -Ulcer Cleansing -Foul Odor after Cleansing -Primary Dressing Applied -Other Dressing michael, TCC primary layer -Primary Dressing Covered/Secured with -Aquacel AG 2x2 Treatment Response Procedure Tolerated Well Vital Signs Pulse Rate (60-100) Pulse Location Blood Pressure (90/60-120/80) 110/70 Blood Pressure Mean (mm Hg) 83 Source Monitor Position Semi-Fowlers Blood Pressure Location Left Arm Pain Scale: 0-10 Numeric Is Patient Pain Free? Yes Teaching: Wound Center Eliminating Foot Pressure -Person Taught Patient -Teaching Method Discussion -Response to teaching Verbalize understanding WC - Visit Discharge Discharge Condition Stable Ambulatory Status Ambulatory Transportation Private Auto Medication Reconcilliation completed & No provided to patient/care provider Clinical Summary of Care Provided Yes Wound debrided: plantar heel x 2, medial foot Laterality: Left Type of Debridement: Excisional debridement Anesthesia Used: 5% Lidocaine Gel Depth: in the subcutaneous layer Percentage of wound debrided: 100 Instrument Used: #15 blade Tissue Removed: fibrous, devitalized subcutaneous tissue, biofilm, slough Severity: Fat Layer Exposed Amount of bleeding with debridement: Mild Bleeding Controlled with: Pressure Patient tolerated procedure well Assessment/Plan Active Problems Lupus (systemic lupus erythematosus) (Chronic) Ulcer of left foot with fat layer exposed (Chronic) Calcaneal gait (Chronic) left Delayed wound healing (Chronic) Pressure ulcer of unspecified heel, stage 2 (Chronic) Pressure ulcer of left foot, unstageable (Acute) Tear of skin of plantar aspect of left foot (Acute) Assessment: Left heel ulcer, chronic pressure with delayed healing x 2. medial foot cluster ulcers noted, fibrous without infection. Lupus. Lower extremity edema. Left calcaneus gait. MRSA infection with cellulitis, history and currently resolved Plan: I reviewed and discussed her case. Subcutaneous excisional debridement was performed as noted in the clinical panel. She was reassured that there are no local signs of infection today. She completed a course of epifix and has responded well. Michael was applied to the ulcer sites. She tolerated this well. A well-padded total contact cast was applied after verbal consent was obtained and she tolerated this well. This was applied according standard protocol in a neutral well-padded manner. She is advised to keep her dressing clean, dry, and intact until follow-up next week. To maintain strict nonweightbearing status with the knee roller. She was advised to maintain a good balanced whole food diet with adequate protein and nutrients to optimize healing. A prescription for Yosvany was provided and she was advised on proper use. I offered her a broadcast news producer referral as well and she canceled this appointment. She is trying to reschedule. She understands her systemic inflammatory disease of lupus may also be contributing to delayed healing. She will avoid antirheumatic medications at this time. She was advised to avoid prednisone use and will also hold the Plaquenil at this time unless she has an intense flareup. This have reviewed verbally with Dr. Pratt. I answered all of her questions. She was advised to return to the wound healing center in 1 week. To call sooner if she has any questions or concerns or any evidence of infection development. Note: [employer] speech recognition meat trimmer software was used to create portions of this document. Sound-alike and misspelled words, as well as other meat trimmer errors may be contained in the documentation. 08/10/20- Patient came in today for a nurse visit because she was concerned her contact cast obtained a crack in it over the weekend. When the cast was removed, she has a new pressure ulcer on her left medial foot. The area was debrided, but no bleeding was obtained. Will place a moistened silver or michael covered by adaptic. She will also place that on her heel ulcer (which was not debrided today). Instructed her to use her knee walker to help her prevent weight bearing. She has an appointment with Dr. Gutierrez on Monday, so she will be able to further evaluate her foot.
[2020-08-26 09:33] VITALS: BP 135/78; PULSE 90; RESP 20; TEMP 35.7; BMI 39.5
--- NOTE | 2020-08-26 13:40 | PCM.WC.PN ---
(1) Ulcer of left foot with fat layer exposed Status: Chronic Code(s): L97.522 - Non-pressure chronic ulcer of other part of left foot with fat layer exposed (2) Lupus (systemic lupus erythematosus) Status: Chronic Qualifiers: Systemic lupus erythematosus type: unspecified Systemic lupus erythematosus organ involvement: unspecified Qualified Code(s): M32.9 - Systemic lupus erythematosus, unspecified Code(s): M32.9 - Systemic lupus erythematosus, unspecified (3) Calcaneal gait Status: Chronic Code(s): R26.89 - Other abnormalities of gait and mobility Comment: left (4) Delayed wound healing Status: Chronic Code(s): T14.8XXD - Other injury of unspecified body region, subsequent encounter Type of Wound Date of Service: 08/26/20 Chief Complaint: Left heel ulcer History of Wound: This pleasant 55-year-old female with significant past medical history of lupus, history of panic attack, depression, history of delayed healing, hyperlipidemia, irritable bowel syndrome, memory loss, restless leg syndrome, and obstructive sleep apnea is here for follow-up of left heel ulcer. She denies fever, chill, nausea, vomiting. Her left foot pain is decreased. She has discontinued her lupus medication as advised (managed by rheumatology). She kept her total contact cast clean and intact last week as advised. She is amendable to proceed with total contact cast again today. Progress of Wound: Healed medial foot ulcers. Improving plantar heel ulcers - Physical Exam Vital Signs Temp Pulse Resp BP 96.3 F L 90 20 H 135/78 H 08/26/20 09:33 08/26/20 09:33 08/26/20 09:33 08/26/20 09:33 General: Alert, Oriented x3, Cooperative, No apparent distress HEENT: Atraumatic Extremities: No cyanosis, Capillary Refill Less than 3 Seconds, No Calf Tenderness, Diminished Peripheral Pulses, Edema Skin: Ulcer/ Wound - No purulence, erythema, streaking, odor, infection. Full epithelialization is noted to the 3 medial foot ulcer sites. Significant peripheral epithelialization is noted to both heel ulcers. Wound Measurements and Assessment WC - Nurse 1 - General Ulcer Measurement Start: 08/10/20 10:26 Freq: Status: Active Protocol: Activity Type Activity Date Activity User E-Sign Co-Sign Detail Recorded Client Recorded Date Recorded By Document 08/26/20 09:33 SCOTTIE [id number] 08/26/20 09:50 DL 08/26/20 09:33 Wound Center Nurse 1 [Ulcer Assessment] #4- L LAT HEEL -Current Size (cm) - Length 1.3 -Current Size (cm) - Width 0.5 -Current Size (cm) - Depth 0.2 -Total Square Cm 0.65 -Photo Taken No -Exudate Amt Small -Exudate Type Serosanguineous -Wound Margin Thickened -Granulation Amt Small (1-33%) -Granulation [place] -Necrosis Amt Small (1-33%) -Necrotic Tissue Type Adherent Slough -Structure Exposed N/A -Texture (Cecelia-wound Skin Appearance) Scarring -Moisture (Cecelia-wound Skin Appearance No Abnormality ) -Color (Cecelia-wound Skin Appearance) No Abnormality -Temperature (Cecelia-wound Skin No Abnormality Appearance) (Pt Warm) -Tenderness on Palpation (Cecelia-wound No Skin Appearance) -Ulcer Cleansing Wound Cleanser -Foul Odor after Cleansing No -Anesthetic Used 4% Lidocaine Solution #3 L Med Ankle cluster -Current Size (cm) - Length 0.4 -Current Size (cm) - Width 1.8 -Current Size (cm) - Depth 0.1 -Total Square Cm 0.72 -Photo Taken No -Exudate Amt None Present -Wound Margin Distinct, Outline Attached -Granulation Amt Small (1-33%) -Granulation [place] -Necrosis Amt Small (1-33%) -Necrotic Tissue Type Adherent Slough -Structure Exposed N/A -Texture (Cecelia-wound Skin Appearance) Scarring -Moisture (Cecelia-wound Skin Appearance No Abnormality ) -Color (Cecelia-wound Skin Appearance) Erythema -Temperature (Cecelia-wound Skin No Abnormality Appearance) (Pt Warm) -Tenderness on Palpation (Cecelia-wound No Skin Appearance) -Ulcer Cleansing Wound Cleanser -Foul Odor after Cleansing No -Anesthetic Used 4% Lidocaine Solution #1 Left Heel- Plantar -Current Size (cm) - Length 0.5 -Current Size (cm) - Width 0.7 -Current Size (cm) - Depth 0.2 -Total Square Cm 0.35 -Photo Taken No -Maximum Distance #2 (cm) 0.2 -Circular Undermining Yes -Exudate Amt Small -Exudate Type Serosanguineous -Wound Margin Thickened -Granulation Amt Small (1-33%) -Granulation [place] -Necrosis Amt Small (1-33%) -Necrotic Tissue Type Adherent Slough -Structure Exposed N/A -Texture (Cecelia-wound Skin Appearance) Scarring -Moisture (Cecelia-wound Skin Appearance Maceration ) -Color (Cecelia-wound Skin Appearance) No Abnormality -Temperature (Cecelia-wound Skin No Abnormality Appearance) (Pt Warm) -Tenderness on Palpation (Cecelia-wound No Skin Appearance) -Ulcer Cleansing Wound Cleanser -Foul Odor after Cleansing No -Anesthetic Used 4% Lidocaine Solution WC - Nurse 2 - General Ulcer CM Notes Start: 08/10/20 10:26 Freq: Status: Active Protocol: Activity Type Activity Date Activity User E-Sign Co-Sign Detail Recorded Client Recorded Date Recorded By Document 08/26/20 10:05 STEPHANIE [id number] 08/26/20 10:10 STEPHANIE 08/26/20 10:05 Wound Center Nurse 2 [Procedure/Treatment] #4- L LAT HEEL -Time 10:06 -Correct Patient Yes -Correct Side, Site, Position Yes -Correct Procedure Yes -Procedure Performed Yes -Type of Procedure Debridement -Clinical Debridement Subcutaneous -Tissue Removed Subcutaneous -Post Debridement (cm) - Length 1.4 -Post Debridement (cm) - Width 0.5 -Post Debridement (cm) - Depth 0.2 -Total Square (Post) (cm) 0.70 -Area of Debridement (cm) - Length 1.4 -Area of Debridement (cm) - Width 0.5 -Total Square (Area) (cm) 0.70 -Tunneling No -Undermining/Tunneling No -Circular Undermining No -Wound/Ulcer Outcome Not Healed -Ulcer Cleansing Rinsed/ Irrigated with Saline -Foul Odor after Cleansing No -Bioengineered Tissue No -Bleeding Controlled with Pressure -Offloading Yes -Type of Offloading Total Contact Cast (TCC) - Left ($) -Treatment Response Procedure Tolerated Well -Debridement - Subq, 1st 20sq cm No #3 L Med Ankle cluster -Time 10:06 -Correct Patient No -Correct Side, Site, Position No -Correct Procedure No -Procedure Performed No -Post Debridement (cm) - Length 0 -Post Debridement (cm) - Width 0 -Post Debridement (cm) - Depth 0 -Total Square (Post) (cm) 0 -Area of Debridement (cm) - Length 0 -Area of Debridement (cm) - Width 0 -Total Square (Area) (cm) 0 -Tunneling No -Undermining/Tunneling No -Circular Undermining No -Wound/Ulcer Outcome Healed- Epithelialized -Bleeding Controlled with NA -Offloading No -Treatment Response Procedure Tolerated Well -Debridement - Subq, 1st 20sq cm No #1 Left Heel- Plantar -Time 10:07 -Correct Patient Yes -Correct Side, Site, Position Yes -Correct Procedure Yes -Procedure Performed Yes -Type of Procedure Debridement -Clinical Debridement Subcutaneous -Tissue Removed Subcutaneous -Post Debridement (cm) - Length 0.5 -Post Debridement (cm) - Width 0.8 -Post Debridement (cm) - Depth 0.2 -Total Square (Post) (cm) 0.40 -Area of Debridement (cm) - Length 0.5 -Area of Debridement (cm) - Width 0.8 -Total Square (Area) (cm) 0.40 -Tunneling No -Undermining/Tunneling No -Circular Undermining No -Wound/Ulcer Outcome Not Healed -Ulcer Cleansing Rinsed/ Irrigated with Saline -Foul Odor after Cleansing No -Bioengineered Tissue No -Bleeding Controlled with NA -Offloading No -Treatment Response Procedure Tolerated Well -Debridement - Subq, 1st 20sq cm No [See Physician Procedure note for Specifics] Pain Scale: 0-10 Numeric [Pain] -Is Patient Pain Free? Yes Musculoskeletal: No Tenderness to Palpation of Joints or Extremities, Muscle Wasting Neurological: - - Lack of normal epicritic sensation light touch is consistent with neuropathy status Psych/Mental Status: Normal Affect, Appropriate Debridement Note Post-Debridement Measurements/Treatment WC - Nurse 2 - General Ulcer CM Notes Start: 08/10/20 10:26 Freq: Status: Active Protocol: Activity Type Activity Date Activity User E-Sign Co-Sign Detail Recorded Client Recorded Date Recorded By Document 08/10/20 11:08 [id number] 08/10/20 11:11 Document 08/12/20 15:16 [id number] 08/12/20 15:20 Document 08/19/20 13:19 [id number] 08/19/20 13:23 Document 08/26/20 10:05 [id number] 08/26/20 10:10 08/10/20 08/12/20 08/19/20 11:08 15:16 13:19 Wound Center Nurse 2 #4- L LAT HEEL -Time 13:20 -Correct Patient Yes -Correct Side, Site, Position Yes -Correct Procedure Yes -Procedure Performed Yes -Type of Procedure Debridement -Clinical Debridement Subcutaneous -Tissue Removed Subcutaneous -Post Debridement (cm) - Length 1.8 -Post Debridement (cm) - Width 0.8 -Post Debridement (cm) - Depth 0.2 -Total Square (Post) (cm) 1.44 -Area of Debridement (cm) - Length 1.8 -Area of Debridement (cm) - Width 0.8 -Total Square (Area) (cm) 1.44 -Tunneling No -Undermining/Tunneling No -Circular Undermining No -Wound/Ulcer Outcome Not Healed -Ulcer Cleansing Rinsed/ Irrigated with Saline -Foul Odor after Cleansing No -Bioengineered Tissue No -Bleeding Controlled with Pressure -Offloading Yes -Type of Offloading Total Contact Cast (TCC) - Left ($) -Treatment Response Procedure Tolerated Well -Debridement - Subq, 1st 20sq cm No #3 L Med Ankle cluster -Time 11:08 15:17 13:21 -Correct Patient Yes Yes Yes -Correct Side, Site, Position Yes Yes Yes -Correct Procedure Yes Yes Yes -Procedure Performed Yes Yes Yes -Type of Procedure Debridement Debridement Debridement -Clinical Debridement Subcutaneous Subcutaneous Subcutaneous -Tissue Removed Subcutaneous Subcutaneous Subcutaneous -Post Debridement (cm) - Length 1.4 2.5 2.0 -Post Debridement (cm) - Width 2.7 1.4 0.6 -Post Debridement (cm) - Depth 0.1 0.2 0.2 -Total Square (Post) (cm) 3.78 3.50 1.20 -Area of Debridement (cm) - Length 1.4 2.5 2.0 -Area of Debridement (cm) - Width 2.7 1.4 0.6 -Total Square (Area) (cm) 3.78 3.50 1.20 -Tunneling No No No -Undermining/Tunneling No No No -Circular Undermining No No No -Wound/Ulcer Outcome Not Healed Not Healed Not Healed -Ulcer Cleansing Rinsed/ Rinsed/ Rinsed/ Irrigated with Irrigated with Irrigated with Saline Saline Saline -Foul Odor after Cleansing No No No -Bioengineered Tissue No No No -Bleeding Controlled with Pressure Pressure NA -Offloading No Yes No -Type of Offloading Surgical Shoe -Treatment Response Procedure Procedure Procedure Tolerated Well Tolerated Well Tolerated Well -Debridement - Subq, 1st 20sq cm Yes No No #1 Left Heel- Plantar -Time 15:17 13:22 -Correct Patient No Yes Yes -Correct Side, Site, Position No Yes Yes -Correct Procedure No Yes Yes -Procedure Performed No Yes Yes -Type of Procedure Debridement Debridement -Clinical Debridement Subcutaneous Subcutaneous -Tissue Removed Subcutaneous Subcutaneous -Post Debridement (cm) - Length 0.4 0.6 -Post Debridement (cm) - Width 0.4 0.7 -Post Debridement (cm) - Depth 0.2 0.2 -Total Square (Post) (cm) 0.16 0.42 -Area of Debridement (cm) - Length 0.4 0.6 -Area of Debridement (cm) - Width 0.4 0.7 -Total Square (Area) (cm) 0.16 0.42 -Tunneling No No -Undermining/Tunneling No No -Circular Undermining No No -Wound/Ulcer Outcome Not Healed Not Healed Not Healed -Ulcer Cleansing Rinsed/ Rinsed/ Irrigated with Irrigated with Saline Saline -Foul Odor after Cleansing No No -Bioengineered Tissue No No -Bleeding Controlled with Pressure Pressure -Offloading Yes No -Type of Offloading Surgical Shoe -Treatment Response Procedure Procedure Tolerated Well Tolerated Well -Debridement - Subq, 1st 20sq cm Yes Yes Pain Scale: 0-10 Numeric Is Patient Pain Free? Yes Yes Yes 08/26/20 10:05 Wound Center Nurse 2 #4- L LAT HEEL -Time 10:06 -Correct Patient Yes -Correct Side, Site, Position Yes -Correct Procedure Yes -Procedure Performed Yes -Type of Procedure Debridement -Clinical Debridement Subcutaneous -Tissue Removed Subcutaneous -Post Debridement (cm) - Length 1.4 -Post Debridement (cm) - Width 0.5 -Post Debridement (cm) - Depth 0.2 -Total Square (Post) (cm) 0.70 -Area of Debridement (cm) - Length 1.4 -Area of Debridement (cm) - Width 0.5 -Total Square (Area) (cm) 0.70 -Tunneling No -Undermining/Tunneling No -Circular Undermining No -Wound/Ulcer Outcome Not Healed -Ulcer Cleansing Rinsed/ Irrigated with Saline -Foul Odor after Cleansing No -Bioengineered Tissue No -Bleeding Controlled with Pressure -Offloading Yes -Type of Offloading Total Contact Cast (TCC) - Left ($) -Treatment Response Procedure Tolerated Well -Debridement - Subq, 1st 20sq cm No #3 L Med Ankle cluster -Time 10:06 -Correct Patient No -Correct Side, Site, Position No -Correct Procedure No -Procedure Performed No -Type of Procedure -Clinical Debridement -Tissue Removed -Post Debridement (cm) - Length 0 -Post Debridement (cm) - Width 0 -Post Debridement (cm) - Depth 0 -Total Square (Post) (cm) 0 -Area of Debridement (cm) - Length 0 -Area of Debridement (cm) - Width 0 -Total Square (Area) (cm) 0 -Tunneling No -Undermining/Tunneling No -Circular Undermining No -Wound/Ulcer Outcome Healed- Epithelialized -Ulcer Cleansing -Foul Odor after Cleansing -Bioengineered Tissue -Bleeding Controlled with NA -Offloading No -Type of Offloading -Treatment Response Procedure Tolerated Well -Debridement - Subq, 1st 20sq cm No #1 Left Heel- Plantar -Time 10:07 -Correct Patient Yes -Correct Side, Site, Position Yes -Correct Procedure Yes -Procedure Performed Yes -Type of Procedure Debridement -Clinical Debridement Subcutaneous -Tissue Removed Subcutaneous -Post Debridement (cm) - Length 0.5 -Post Debridement (cm) - Width 0.8 -Post Debridement (cm) - Depth 0.2 -Total Square (Post) (cm) 0.40 -Area of Debridement (cm) - Length 0.5 -Area of Debridement (cm) - Width 0.8 -Total Square (Area) (cm) 0.40 -Tunneling No -Undermining/Tunneling No -Circular Undermining No -Wound/Ulcer Outcome Not Healed -Ulcer Cleansing Rinsed/ Irrigated with Saline -Foul Odor after Cleansing No -Bioengineered Tissue No -Bleeding Controlled with NA -Offloading No -Type of Offloading -Treatment Response Procedure Tolerated Well -Debridement - Subq, 1st 20sq cm No Pain Scale: 0-10 Numeric Is Patient Pain Free? Yes WC - Nurse 3 - General Ulcer D/C NN Start: 08/10/20 10:26 Freq: Status: Active Protocol: Activity Type Activity Date Activity User E-Sign Co-Sign Detail Recorded Client Recorded Date Recorded By Document 08/10/20 12:17 DL [id number] 08/10/20 12:18 DL Document 08/12/20 15:23 JF [id number] 08/12/20 15:34 JF Document 08/12/20 15:26 MS [id number] 08/12/20 15:28 MS Document 08/19/20 13:24 JF [id number] 08/19/20 13:26 JF 08/10/20 08/12/20 08/12/20 12:17 15:23 15:26 Wound Care Nurse 3 #4- L LAT HEEL -Primary Dressing Applied -Other Dressing -Promogran Michael Matter #3 L Med Ankle cluster -Ulcer Cleansing Wound Cleanser -Foul Odor after Cleansing No -Primary Dressing Applied Aquacel AG 4x4 Aquacel AG 2x2 Other -Other Dressing hydrocel -Primary Dressing Covered/Secured with Dry Gauze & Dry Gauze, Dry Gauze, Roll Gauze, Secured with Secured with Secured with Tape Tape Tape -Aquacel AG 4x4 1 0 -Aquacel AG 2x2 1 #1 Left Heel- Plantar -Ulcer Cleansing Wound Cleanser Rinsed/ Irrigated with Saline -Foul Odor after Cleansing No No -Primary Dressing Applied Aquacel AG 2x2 -Other Dressing aquacel ag -Primary Dressing Covered/Secured with Dry Gauze & Dry Gauze, Roll Gauze, Secured with Secured with Tape Tape -Aquacel AG 2x2 1 Treatment Response Procedure Tolerated Well Vital Signs Pulse Rate (60-100) 92 94 Pulse Location Monitor Monitor Blood Pressure (90/60-120/80) 125/68 H 135/71 H 135/71 H Blood Pressure Mean (mm Hg) 87 92 92 Source Monitor Monitor Monitor Position Sitting Sitting Blood Pressure Location Right Arm Left Arm Pain Scale: 0-10 Numeric Is Patient Pain Free? Yes Yes Teaching: Wound Center Eliminating Foot Pressure -Person Taught -Teaching Method -Response to teaching WC - Visit Discharge Discharge Condition Stable Ambulatory Status Ambulatory Transportation Private Auto Medication Reconcilliation completed & provided to patient/care provider Clinical Summary of Care Provided 08/19/20 13:24 Wound Care Nurse 3 #4- L LAT HEEL -Primary Dressing Applied Promogran Michael Matter -Other Dressing TCC primary layer -Promogran Michael Matter 1 #3 L Med Ankle cluster -Ulcer Cleansing -Foul Odor after Cleansing -Primary Dressing Applied -Other Dressing michael , TCC primary layer -Primary Dressing Covered/Secured with -Aquacel AG 4x4 -Aquacel AG 2x2 #1 Left Heel- Plantar -Ulcer Cleansing -Foul Odor after Cleansing -Primary Dressing Applied -Other Dressing michael, TCC primary layer -Primary Dressing Covered/Secured with -Aquacel AG 2x2 Treatment Response Procedure Tolerated Well Vital Signs Pulse Rate (60-100) Pulse Location Blood Pressure (90/60-120/80) 110/70 Blood Pressure Mean (mm Hg) 83 Source Monitor Position Semi-Fowlers Blood Pressure Location Left Arm Pain Scale: 0-10 Numeric Is Patient Pain Free? Yes Teaching: Wound Center Eliminating Foot Pressure -Person Taught Patient -Teaching Method Discussion -Response to teaching Verbalize understanding WC - Visit Discharge Discharge Condition Stable Ambulatory Status Ambulatory Transportation Private Auto Medication Reconcilliation completed & No provided to patient/care provider Clinical Summary of Care Provided Yes Wound debrided: plantar heel x 2 Laterality: Left Type of Debridement: Excisional debridement Anesthesia Used: 5% Lidocaine Gel Depth: in the subcutaneous layer Percentage of wound debrided: 100 Instrument Used: #15 blade Tissue Removed: fibrous, devitalized subcutaneous, biofilm, slough Severity: Fat Layer Exposed Amount of bleeding with debridement: Mild Bleeding Controlled with: Pressure Patient tolerated procedure well Assessment/Plan Active Problems Lupus (systemic lupus erythematosus) (Chronic) Ulcer of left foot with fat layer exposed (Chronic) Calcaneal gait (Chronic) left Delayed wound healing (Chronic) Pressure ulcer of unspecified heel, stage 2 (Chronic) Pressure ulcer of left foot, unstageable (Acute) Tear of skin of plantar aspect of left foot (Acute) Assessment: Left heel ulcer, chronic pressure with delayed healing x 2. medial foot cluster ulcers noted, fibrous without infection. Lupus. Lower extremity edema. Left calcaneus gait. MRSA infection with cellulitis, history and currently resolved Plan: I reviewed and discussed her case. Subcutaneous excisional debridement was performed as noted in the clinical panel. She was reassured that there are no local signs of infection today. She completed a course of epifix and has responded well. Michael was applied to the ulcer sites. She tolerated this well. A well-padded total contact cast was applied after verbal consent was obtained and she tolerated this well. This was applied according standard protocol in a neutral well-padded manner. She is advised to keep her dressing clean, dry, and intact until follow-up next week. To maintain strict nonweightbearing status with the knee roller. She was advised to maintain a good balanced whole food diet with adequate protein and nutrients to optimize healing. A prescription for Yosvany was provided and she was advised on proper use. I offered her a digital recruiter referral as well and she canceled this appointment. She is trying to reschedule. She understands her systemic inflammatory disease of lupus may also be contributing to delayed healing. She will avoid antirheumatic medications at this time. She was advised to avoid prednisone use and will also hold the Plaquenil at this time unless she has an intense flareup. This have reviewed verbally with Dr. Pratt. I answered all of her questions. She was advised to return to the wound healing center in 1 week. To call sooner if she has any questions or concerns or any evidence of infection development. Note: [employer] speech recognition assistant associate professor software was used to create portions of this document. Sound-alike and misspelled words, as well as other assistant associate professor errors may be contained in the documentation. 08/10/20- Patient came in today for a nurse visit because she was concerned her contact cast obtained a crack in it over the weekend. When the cast was removed, she has a new pressure ulcer on her left medial foot. The area was debrided, but no bleeding was obtained. Will place a moistened silver or michael covered by adaptic. She will also place that on her heel ulcer (which was not debrided today). Instructed her to use her knee walker to help her prevent weight bearing. She has an appointment with Dr. Gutierrez on Monday, so she will be able to further evaluate her foot.
[2020-09-02 11:25] VITALS: BP 134/88; PULSE 82; RESP 18; TEMP 36.3; BMI 39.5
--- NOTE | 2020-09-02 12:27 | PN.PCM_ITS ---
(1) Ulcer of left foot with fat layer exposed Status: Chronic Code(s): L97.522 - Non-pressure chronic ulcer of other part of left foot with fat layer exposed (2) Lupus (systemic lupus erythematosus) Status: Chronic Qualifiers: Systemic lupus erythematosus type: unspecified Systemic lupus erythematosus organ involvement: unspecified Qualified Code(s): M32.9 - Systemic lupus erythematosus, unspecified Code(s): M32.9 - Systemic lupus erythematosus, unspecified (3) Calcaneal gait Status: Chronic Code(s): R26.89 - Other abnormalities of gait and mobility Comment: left (4) Delayed wound healing Status: Chronic Code(s): T14.8XXD - Other injury of unspecified body region, subsequent encounter (5) Blister of foot, left Status: Acute Qualifiers: Encounter type: initial encounter Qualified Code(s): S90.822A - Blister (nonthermal), left foot, initial encounter Code(s): S90.822A - Blister (nonthermal), left foot, initial encounter Type of Wound Date of Service: 09/02/20 Chief Complaint: Left heel ulcer History of Wound: This pleasant 55-year-old female with significant past medical history of lupus, history of panic attack, depression, history of delayed healing, hyperlipidemia, irritable bowel syndrome, memory loss, restless leg syndrome, and obstructive sleep apnea is here for follow-up of left heel ulcer. She denies fever, chill, nausea, vomiting. Her left foot pain is decreased. She has discontinued her lupus medication as advised (managed by rheumatology). She relates she felt like the total contact cast felt different this past week. She denies extra walking or any new injuries that she is aware of. Progress of Wound: Healed medial foot ulcers. Improving plantar heel ulcers. New blister to the heel noted - Physical Exam Vital Signs Temp Pulse Resp BP 97.3 F L 82 18 134/88 H 09/02/20 11:09/02/20 11:09/02/20 11:09/02/20 11: General: Alert, Oriented x3, Cooperative, No apparent distress HEENT: Atraumatic Extremities: No cyanosis, Capillary Refill Less than 3 Seconds, No Calf Tenderness, Diminished Peripheral Pulses, Edema - Mild Skin: Ulcer/ Wound - No purulence, erythema, streaking, odor, infection. Peripheral epithelialization continues to improve significantly. There is a new blister site with serous drainage only and upon debridement there is no necrosis or deep tissue exposure. There is exposed subcutaneous tissue Wound Measurements and Assessment WC - Nurse 1 - General Ulcer Measurement Start: 08/10/20 10:26 Freq: Status: Active Protocol: Activity Type Activity Date Activity User E-Sign Co-Sign Detail Recorded Client Recorded Date Recorded By Document 09/02/20 11:25 RB [id number] 09/02/20 11:28 RB 09/02/20 11:25 Wound Center Nurse 1 [Ulcer Assessment] #4- L LAT HEEL -Combined with other wound No -Current Size (cm) - Length 0.2 -Current Size (cm) - Width 0.2 -Current Size (cm) - Depth 0.2 -Total Square Cm 0.04 -Tunneling No -Undermining/Tunneling No -Circular Undermining No -Exudate Amt Small -Exudate Type Serosanguineous -Wound Margin Flat & Intact -Granulation Amt Medium (34-66%) -Granulation Quality [place] -Slough/Fibrin Yes -Necrosis Amt Small (1-33%) -Necrotic Tissue Type Adherent Slough -Structure Exposed N/A -Texture (Cecelia-wound Skin Appearance) Callus -Moisture (Cecelia-wound Skin Appearance Assessed ) -Color (Cecelia-wound Skin Appearance) Assessed -Temperature (Cecelia-wound Skin No Abnormality Appearance) (Pt Warm) -Tenderness on Palpation (Cecelia-wound No Skin Appearance) -Ulcer Cleansing Wound Cleanser -Foul Odor after Cleansing No -Anesthetic Used 5% Lidocaine Gel #1 Left Heel- Plantar -Combined with other wound No -Current Size (cm) - Length 0.3 -Current Size (cm) - Width 0.5 -Current Size (cm) - Depth 0.5 -Total Square Cm 0.15 -Tunneling No -Undermining/Tunneling Yes -Undermining/Tunneling Starts (O' 9 clock) -Undermining/Tunneling Ends (O'clock) 2 -Maximum Distance (cm) 0.3 -Circular Undermining No -Exudate Amt Small -Exudate Type Serosanguineous -Wound Margin Thickened -Granulation Amt Medium (34-66%) -Granulation Quality [place] -Slough/Fibrin Yes -Necrosis Amt Small (1-33%) -Necrotic Tissue Type Adherent Slough -Structure Exposed N/A -Texture (Cecelia-wound Skin Appearance) Assessed,Callus -Moisture (Cecelia-wound Skin Appearance Assessed ) -Color (Cecelia-wound Skin Appearance) Assessed -Temperature (Cecelia-wound Skin No Abnormality Appearance) (Pt Warm) -Tenderness on Palpation (Cecelia-wound No Skin Appearance) -Ulcer Cleansing Wound Cleanser -Foul Odor after Cleansing No -Anesthetic Used 5% Lidocaine Gel WC - Nurse 2 - General Ulcer CM Notes Start: 08/10/20 10:26 Freq: Status: Active Protocol: Activity Type Activity Date Activity User E-Sign Co-Sign Detail Recorded Client Recorded Date Recorded By Document 09/02/20 11:41 STEPHANIE [id number] 09/02/20 11:46 STEPHANIE 09/02/20 11:41 Wound Center Nurse 2 [Procedure/Treatment] #4- L LAT HEEL -Time 11:41 -Correct Patient Yes -Correct Side, Site, Position Yes -Correct Procedure Yes -Procedure Performed Yes -Type of Procedure Debridement -Clinical Debridement Subcutaneous -Tissue Removed Subcutaneous -Post Debridement (cm) - Length 0.2 -Post Debridement (cm) - Width 0.2 -Post Debridement (cm) - Depth 0.1 -Total Square (Post) (cm) 0.04 -Area of Debridement (cm) - Length 0.2 -Area of Debridement (cm) - Width 0.2 -Total Square (Area) (cm) 0.04 -Tunneling No -Undermining/Tunneling No -Circular Undermining No -Wound/Ulcer Outcome Not Healed -Ulcer Cleansing Rinsed/ Irrigated with Saline -Foul Odor after Cleansing No -Bioengineered Tissue No -Bleeding Controlled with Pressure -Offloading Yes -Type of Offloading Surgical Shoe -Treatment Response Procedure Tolerated Well -Debridement - Subq, 1st 20sq cm Yes #1 Left Heel- Plantar -Time 11:42 -Correct Patient Yes -Correct Side, Site, Position Yes -Correct Procedure Yes -Procedure Performed Yes -Type of Procedure Debridement -Clinical Debridement Subcutaneous -Tissue Removed Subcutaneous -Post Debridement (cm) - Length 1.8 -Post Debridement (cm) - Width 0.6 -Post Debridement (cm) - Depth 0.3 -Total Square (Post) (cm) 1.08 -Area of Debridement (cm) - Length 1.8 -Area of Debridement (cm) - Width 0.6 -Total Square (Area) (cm) 1.08 -Tunneling No -Undermining/Tunneling No -Circular Undermining No -Wound/Ulcer Outcome Not Healed -Ulcer Cleansing Rinsed/ Irrigated with Saline -Foul Odor after Cleansing No -Bioengineered Tissue No -Bleeding Controlled with Pressure -Offloading Yes -Type of Offloading Surgical Shoe -Treatment Response Procedure Tolerated Well -Debridement - Subq, 1st 20sq cm No [See Physician Procedure note for Specifics] Pain Scale: 0-10 Numeric [Pain] -Is Patient Pain Free? Yes Musculoskeletal: No Tenderness to Palpation of Joints or Extremities, Muscle Wasting, - - No bogginess or fluctuance on palpation. Compartments remain soft. Calcaneus extremity position noted, left Neurological: Sensory exam intact to light touch and pain, - Psych/Mental Status: Normal Affect, Appropriate Debridement Note Post-Debridement Measurements/Treatment WC - Nurse 2 - General Ulcer CM Notes Start: 08/10/20 10:26 Freq: Status: Active Protocol: Activity Type Activity Date Activity User E-Sign Co-Sign Detail Recorded Client Recorded Date Recorded By Document 08/10/20 11:08 [id number] 08/10/20 11:11 Document 08/12/20 15:16 [id number] 08/12/20 15:20 Document 08/19/20 13:19 [id number] 08/19/20 13:23 Document 08/26/20 10:05 [id number] 08/26/20 10:10 Document 09/02/20 11:41 [id number] 09/02/20 11:46 08/10/20 08/12/20 08/19/20 11:08 15:16 13:19 Wound Center Nurse 2 #4- L LAT HEEL -Time 13:20 -Correct Patient Yes -Correct Side, Site, Position Yes -Correct Procedure Yes -Procedure Performed Yes -Type of Procedure Debridement -Clinical Debridement Subcutaneous -Tissue Removed Subcutaneous -Post Debridement (cm) - Length 1.8 -Post Debridement (cm) - Width 0.8 -Post Debridement (cm) - Depth 0.2 -Total Square (Post) (cm) 1.44 -Area of Debridement (cm) - Length 1.8 -Area of Debridement (cm) - Width 0.8 -Total Square (Area) (cm) 1.44 -Tunneling No -Undermining/Tunneling No -Circular Undermining No -Wound/Ulcer Outcome Not Healed -Ulcer Cleansing Rinsed/ Irrigated with Saline -Foul Odor after Cleansing No -Bioengineered Tissue No -Bleeding Controlled with Pressure -Offloading Yes -Type of Offloading Total Contact Cast (TCC) - Left ($) -Treatment Response Procedure Tolerated Well -Debridement - Subq, 1st 20sq cm No #3 L Med Ankle cluster -Time 11:08 15:17 13:21 -Correct Patient Yes Yes Yes -Correct Side, Site, Position Yes Yes Yes -Correct Procedure Yes Yes Yes -Procedure Performed Yes Yes Yes -Type of Procedure Debridement Debridement Debridement -Clinical Debridement Subcutaneous Subcutaneous Subcutaneous -Tissue Removed Subcutaneous Subcutaneous Subcutaneous -Post Debridement (cm) - Length 1.4 2.5 2.0 -Post Debridement (cm) - Width 2.7 1.4 0.6 -Post Debridement (cm) - Depth 0.1 0.2 0.2 -Total Square (Post) (cm) 3.78 3.50 1.20 -Area of Debridement (cm) - Length 1.4 2.5 2.0 -Area of Debridement (cm) - Width 2.7 1.4 0.6 -Total Square (Area) (cm) 3.78 3.50 1.20 -Tunneling No No No -Undermining/Tunneling No No No -Circular Undermining No No No -Wound/Ulcer Outcome Not Healed Not Healed Not Healed -Ulcer Cleansing Rinsed/ Rinsed/ Rinsed/ Irrigated with Irrigated with Irrigated with Saline Saline Saline -Foul Odor after Cleansing No No No -Bioengineered Tissue No No No -Bleeding Controlled with Pressure Pressure NA -Offloading No Yes No -Type of Offloading Surgical Shoe -Treatment Response Procedure Procedure Procedure Tolerated Well Tolerated Well Tolerated Well -Debridement - Subq, 1st 20sq cm Yes No No #1 Left Heel- Plantar -Time 15:17 13:22 -Correct Patient No Yes Yes -Correct Side, Site, Position No Yes Yes -Correct Procedure No Yes Yes -Procedure Performed No Yes Yes -Type of Procedure Debridement Debridement -Clinical Debridement Subcutaneous Subcutaneous -Tissue Removed Subcutaneous Subcutaneous -Post Debridement (cm) - Length 0.4 0.6 -Post Debridement (cm) - Width 0.4 0.7 -Post Debridement (cm) - Depth 0.2 0.2 -Total Square (Post) (cm) 0.16 0.42 -Area of Debridement (cm) - Length 0.4 0.6 -Area of Debridement (cm) - Width 0.4 0.7 -Total Square (Area) (cm) 0.16 0.42 -Tunneling No No -Undermining/Tunneling No No -Circular Undermining No No -Wound/Ulcer Outcome Not Healed Not Healed Not Healed -Ulcer Cleansing Rinsed/ Rinsed/ Irrigated with Irrigated with Saline Saline -Foul Odor after Cleansing No No -Bioengineered Tissue No No -Bleeding Controlled with Pressure Pressure -Offloading Yes No -Type of Offloading Surgical Shoe -Treatment Response Procedure Procedure Tolerated Well Tolerated Well -Debridement - Subq, 1st 20sq cm Yes Yes Pain Scale: 0-10 Numeric Is Patient Pain Free? Yes Yes Yes 08/26/20 09/02/20 10:05 11:41 Wound Center Nurse 2 #4- L LAT HEEL -Time 10:06 11:41 -Correct Patient Yes Yes -Correct Side, Site, Position Yes Yes -Correct Procedure Yes Yes -Procedure Performed Yes Yes -Type of Procedure Debridement Debridement -Clinical Debridement Subcutaneous Subcutaneous -Tissue Removed Subcutaneous Subcutaneous -Post Debridement (cm) - Length 1.4 0.2 -Post Debridement (cm) - Width 0.5 0.2 -Post Debridement (cm) - Depth 0.2 0.1 -Total Square (Post) (cm) 0.70 0.04 -Area of Debridement (cm) - Length 1.4 0.2 -Area of Debridement (cm) - Width 0.5 0.2 -Total Square (Area) (cm) 0.70 0.04 -Tunneling No No -Undermining/Tunneling No No -Circular Undermining No No -Wound/Ulcer Outcome Not Healed Not Healed -Ulcer Cleansing Rinsed/ Rinsed/ Irrigated with Irrigated with Saline Saline -Foul Odor after Cleansing No No -Bioengineered Tissue No No -Bleeding Controlled with Pressure Pressure -Offloading Yes Yes -Type of Offloading Total Contact Surgical Shoe Cast (TCC) - Left ($) -Treatment Response Procedure Procedure Tolerated Well Tolerated Well -Debridement - Subq, 1st 20sq cm Yes Yes #3 L Med Ankle cluster -Time 10:06 -Correct Patient No -Correct Side, Site, Position No -Correct Procedure No -Procedure Performed No -Type of Procedure -Clinical Debridement -Tissue Removed -Post Debridement (cm) - Length 0 -Post Debridement (cm) - Width 0 -Post Debridement (cm) - Depth 0 -Total Square (Post) (cm) 0 -Area of Debridement (cm) - Length 0 -Area of Debridement (cm) - Width 0 -Total Square (Area) (cm) 0 -Tunneling No -Undermining/Tunneling No -Circular Undermining No -Wound/Ulcer Outcome Healed- Epithelialized -Ulcer Cleansing -Foul Odor after Cleansing -Bioengineered Tissue -Bleeding Controlled with NA -Offloading No -Type of Offloading -Treatment Response Procedure Tolerated Well -Debridement - Subq, 1st 20sq cm No #1 Left Heel- Plantar -Time 10:07 11:42 -Correct Patient Yes Yes -Correct Side, Site, Position Yes Yes -Correct Procedure Yes Yes -Procedure Performed Yes Yes -Type of Procedure Debridement Debridement -Clinical Debridement Subcutaneous Subcutaneous -Tissue Removed Subcutaneous Subcutaneous -Post Debridement (cm) - Length 0.5 1.8 -Post Debridement (cm) - Width 0.8 0.6 -Post Debridement (cm) - Depth 0.2 0.3 -Total Square (Post) (cm) 0.40 1.08 -Area of Debridement (cm) - Length 0.5 1.8 -Area of Debridement (cm) - Width 0.8 0.6 -Total Square (Area) (cm) 0.40 1.08 -Tunneling No No -Undermining/Tunneling No No -Circular Undermining No No -Wound/Ulcer Outcome Not Healed Not Healed -Ulcer Cleansing Rinsed/ Rinsed/ Irrigated with Irrigated with Saline Saline -Foul Odor after Cleansing No No -Bioengineered Tissue No No -Bleeding Controlled with NA Pressure -Offloading No Yes -Type of Offloading Surgical Shoe -Treatment Response Procedure Procedure Tolerated Well Tolerated Well -Debridement - Subq, 1st 20sq cm No No Pain Scale: 0-10 Numeric Is Patient Pain Free? Yes Yes WC - Nurse 3 - General Ulcer D/C NN Start: 08/10/20 10:26 Freq: Status: Active Protocol: Activity Type Activity Date Activity User E-Sign Co-Sign Detail Recorded Client Recorded Date Recorded By Document 08/10/20 12:17 DL [id number] 08/10/20 12:18 DL Document 08/12/20 15:23 JF [id number] 08/12/20 15:34 JF Document 08/12/20 15:26 MS [id number] 08/12/20 15:28 MS Document 08/19/20 13:24 JF [id number] 08/19/20 13:26 JF 08/10/20 08/12/20 08/12/20 12:17 15:23 15:26 Wound Care Nurse 3 #4- L LAT HEEL -Primary Dressing Applied -Other Dressing -Promogran Michael Matter #3 L Med Ankle cluster -Ulcer Cleansing Wound Cleanser -Foul Odor after Cleansing No -Primary Dressing Applied Aquacel AG 4x4 Aquacel AG 2x2 Other -Other Dressing hydrocel -Primary Dressing Covered/Secured with Dry Gauze & Dry Gauze, Dry Gauze, Roll Gauze, Secured with Secured with Secured with Tape Tape Tape -Aquacel AG 4x4 1 0 -Aquacel AG 2x2 1 #1 Left Heel- Plantar -Ulcer Cleansing Wound Cleanser Rinsed/ Irrigated with Saline -Foul Odor after Cleansing No No -Primary Dressing Applied Aquacel AG 2x2 -Other Dressing aquacel ag -Primary Dressing Covered/Secured with Dry Gauze & Dry Gauze, Roll Gauze, Secured with Secured with Tape Tape -Aquacel AG 2x2 1 Treatment Response Procedure Tolerated Well Vital Signs Pulse Rate (60-100) 92 94 Pulse Location Monitor Monitor Blood Pressure (90/60-120/80) 125/68 H 135/71 H 135/71 H Blood Pressure Mean (mm Hg) 87 92 92 Source Monitor Monitor Monitor Position Sitting Sitting Blood Pressure Location Right Arm Left Arm Pain Scale: 0-10 Numeric Is Patient Pain Free? Yes Yes Teaching: Wound Center Eliminating Foot Pressure -Person Taught -Teaching Method -Response to teaching WC - Visit Discharge Discharge Condition Stable Ambulatory Status Ambulatory Transportation Private Auto Medication Reconcilliation completed & provided to patient/care provider Clinical Summary of Care Provided 08/19/20 13:24 Wound Care Nurse 3 #4- L LAT HEEL -Primary Dressing Applied Promogran Michael Matter -Other Dressing TCC primary layer -Promogran Michael Matter 1 #3 L Med Ankle cluster -Ulcer Cleansing -Foul Odor after Cleansing -Primary Dressing Applied -Other Dressing michael , TCC primary layer -Primary Dressing Covered/Secured with -Aquacel AG 4x4 -Aquacel AG 2x2 #1 Left Heel- Plantar -Ulcer Cleansing -Foul Odor after Cleansing -Primary Dressing Applied -Other Dressing michael, TCC primary layer -Primary Dressing Covered/Secured with -Aquacel AG 2x2 Treatment Response Procedure Tolerated Well Vital Signs Pulse Rate (60-100) Pulse Location Blood Pressure (90/60-120/80) 110/70 Blood Pressure Mean (mm Hg) 83 Source Monitor Position Semi-Fowlers Blood Pressure Location Left Arm Pain Scale: 0-10 Numeric Is Patient Pain Free? Yes Teaching: Wound Center Eliminating Foot Pressure -Person Taught Patient -Teaching Method Discussion -Response to teaching Verbalize understanding WC - Visit Discharge Discharge Condition Stable Ambulatory Status Ambulatory Transportation Private Auto Medication Reconcilliation completed & No provided to patient/care provider Clinical Summary of Care Provided Yes Wound debrided: heel ulcers Laterality: Left Type of Debridement: Excisional debridement Anesthesia Used: 5% Lidocaine Gel Depth: in the subcutaneous layer Percentage of wound debrided: 100 Instrument Used: #15 blade Tissue Removed: fibrous, devitalized subcutaneous, biofilm, slough Severity: Fat Layer Exposed Amount of bleeding with debridement: Mild Bleeding Controlled with: Pressure Patient tolerated procedure well Assessment/Plan Active Problems Lupus (systemic lupus erythematosus) (Chronic) Ulcer of left foot with fat layer exposed (Chronic) Calcaneal gait (Chronic) left Delayed wound healing (Chronic) Pressure ulcer of unspecified heel, stage 2 (Chronic) Pressure ulcer of left foot, unstageable (Acute) Tear of skin of plantar aspect of left foot (Acute) Assessment: Left heel ulcer, chronic pressure with delayed healing x 2. Blister adjacent to heel ulcer. medial foot cluster ulcers remain healed today. Lupus. Lower extremity edema. Left calcaneus gait. MRSA infection with cellulitis, history and currently resolved Plan: I reviewed and discussed her case. Subcutaneous excisional debridement was performed as noted in the clinical panel. She was reassured that there are no local signs of infection today. She completed a course of epifix and has responded well. Michael was applied to the ulcer sites. She tolerated this well. Her new blisters noted I recommend that she washes daily with antimicrobial Annette-Hex soap. We will consider additional total contact cast application next week if this continues with decreased moisture and no infection. She is reassured no signs of local infection are noted today. To maintain strict nonweightbearing status with the knee roller. She was advised to maintain a balanced whole food diet with adequate protein and nutrients to optimize healing. A prescription for Yosvany was provided and she was advised on proper use. I offered her a product scientist referral as well and she canceled this appointment. She is trying to reschedule. She understands her systemic inflammatory disease of lupus may also be contributing to delayed healing. She will avoid antirheumatic medications at this time. She was advised to avoid prednisone use and will also hold the Plaquenil at this time unless she has an intense flareup. This have reviewed verbally with Dr. Pratt. I answered all of her questions. She was advised to return to the wound healing center in 1 week. To call sooner if she has any questions or concerns or any evidence of infection development. Note: [employer] speech recognition integrated marketing intern software was used to create portions of this document. Sound-alike and misspelled words, as well as other integrated marketing intern errors may be contained in the documentation. 08/10/20- Patient came in today for a nurse visit because she was concerned her contact cast obtained a crack in it over the weekend. When the cast was removed, she has a new pressure ulcer on her left medial foot. The area was debrided, but no bleeding was obtained. Will place a moistened silver or michael covered by adaptic. She will also place that on her heel ulcer (which was not debrided today). Instructed her to use her knee walker to help her prevent weight bearing. She has an appointment with Dr. Gutierrez on Monday, so she will be able to further evaluate her foot.
== END 2020-09-07 23:59 ==
LOC: WC 10:45
PROVIDERS: PCP Family Medicine; Referring Provider Podiatrist Foot & Ankle Surgery; Visit Provider Podiatrist
DX: L97.422 Non-pressure chronic ulcer of left heel and midfoot with fat layer exposed (principal); M32.9 Systemic lupus erythematosus, unspecified; L89.890 Pressure ulcer of other site, unstageable; E78.5 Hyperlipidemia, unspecified; K58.9 Irritable bowel syndrome, unspecified; G25.81 Restless legs syndrome; G47.33 Obstructive sleep apnea (adult) (pediatric); R60.0 Localized edema; Z86.14 Personal history of Methicillin resistant Staphylococcus aureus infection; R26.89 Other abnormalities of gait and mobility
CPT/HCPCS: 11042; 29445; 99213; G0463

== ENCOUNTER 2020-10-07 14:30 | Outpatient (RCR) | payer MEDICARE, BC, SELFPAY ==
[2020-09-08 00:16] VITALS: BP 134/88; PULSE 82; RESP 18; TEMP 36.3
[2020-09-16 10:39] VITALS: BP 139/77; PULSE 97; RESP 16; TEMP 35.7; BMI 39.5
--- NOTE | 2020-09-16 12:18 | PCM.WC.PN ---
(1) Ulcer of left foot with fat layer exposed Status: Chronic Code(s): L97.522 - Non-pressure chronic ulcer of other part of left foot with fat layer exposed (2) Colonization status Status: Suspected Code(s): Z22.9 - Carrier of infectious disease, unspecified (3) Ingrowing nail, left great toe Status: Acute Code(s): L60.0 - Ingrowing nail (4) Lupus (systemic lupus erythematosus) Status: Chronic Qualifiers: Code(s): M32.9 - Systemic lupus erythematosus, unspecified (5) Calcaneal gait Status: Chronic Code(s): R26.89 - Other abnormalities of gait and mobility Comment: left (6) Delayed wound healing Status: Chronic Code(s): T14.8XXD - Other injury of unspecified body region, subsequent encounter Type of Wound Date of Service: 09/16/20 Chief Complaint: Left heel ulcer History of Wound: This pleasant 55-year-old female with significant past medical history of lupus, history of panic attack, depression, history of delayed healing, hyperlipidemia, irritable bowel syndrome, memory loss, restless leg syndrome, and obstructive sleep apnea is here for follow-up of left heel ulcer. She denies fever, chill, nausea, vomiting. Her left foot pain is increased and she has increased drainage as well. She has some heel inflammation and extra swelling. She has discontinued her lupus medication as advised (managed by rheumatology). She also complains of ingrown toenail to the left great toe outer border which she denies trauma. There is some drainage and discoloration and she asked for evaluation today. Progress of Wound: Healed medial foot ulcers. Deeper heel ulcer (the newer most recent heel ulcer has healed and the initial ulcer remains open) - Physical Exam Vital Signs Temp Pulse Resp BP 96.2 F L 97 16 139/77 H 09/16/20 10:39 09/16/20 10:39 09/16/20 10:39 09/16/20 10:39 General: Alert, Oriented x3, Cooperative, No apparent distress HEENT: Atraumatic Extremities: No cyanosis, Capillary Refill Less than 3 Seconds, No Calf Tenderness, Diminished Peripheral Pulses, Edema, - - Calcaneus style gait. Compartments are soft to palpate Skin: Ulcer/ Wound - No purulence on expression. The ulcer is deeper and there is periulcer inflammation and no distinct erythema or streaking. The ulcer bed also appears to be more devitalized. The adjacent skin is atrophic. There is full epithelialization to the medial aspect of the foot., - - Incurvated lateral hallux nail with some serosanguineous drainage and incurvation. No purulence on expression erythema streaking necrosis or deep tissue exposure after wedge resection was performed Wound Measurements and Assessment WC - Nurse 1 - General Ulcer Measurement Start: 09/16/20 10:39 Freq: Status: Active Protocol: Activity Type Activity Date Activity User E-Sign Co-Sign Detail Recorded Client Recorded Date Recorded By Document 09/16/20 10:39 BMF [id number] 09/16/20 10:46 BMF 09/16/20 10:39 Wound Center Nurse 1 [Ulcer Assessment] #5- L GREAT TOE -Combined with other wound No -Current Size (cm) - Length 0.7 -Current Size (cm) - Width 0.2 -Current Size (cm) - Depth 0.1 -Total Square Cm 0.14 -Date of Last Picture (Recall this 09/16/20 field) -Photo Taken Yes -Epithelialization None Present -Tunneling No -Undermining/Tunneling No -Circular Undermining No -Exudate Amt Small -Exudate Type Serosanguineous -Wound Margin Distinct, Outline Attached -Granulation Amt Small (1-33%) -Granulation Quality Red -Slough/Fibrin Yes -Necrosis Amt Large (67-100%) -Necrotic Tissue Type Adherent Slough -Texture (Cecelia-wound Skin Appearance) Assessed,Callus ,Scarring -Moisture (Cecelia-wound Skin Appearance Assessed,Dry/ ) Scaly -Color (Cecelia-wound Skin Appearance) Assessed -Temperature (Cecelia-wound Skin No Abnormality Appearance) (Pt Warm) -Tenderness on Palpation (Cecelia-wound No Skin Appearance) -Ulcer Cleansing SOAPY WATER -Foul Odor after Cleansing No -Anesthetic Used 4% Lidocaine Solution #4- L LAT HEEL -Combined with other wound No -Current Size (cm) - Length 0.1 -Current Size (cm) - Width 0.1 -Current Size (cm) - Depth 0.1 -Total Square Cm 0.01 -Epithelialization Large 67-100% #1 Left Heel- Plantar -Combined with other wound No -Current Size (cm) - Length 0.6 -Current Size (cm) - Width 1.6 -Current Size (cm) - Depth 0.5 -Total Square Cm 0.96 -Photo Taken No -Epithelialization None Present -Tunneling No -Undermining/Tunneling Yes -Undermining/Tunneling Starts (O' 12 clock) -Undermining/Tunneling Ends (O'clock) 12 -Maximum Distance (cm) 0.5 -Circular Undermining No -Exudate Amt Medium -Exudate Type Serosanguineous -Wound Margin Distinct, Outline Attached -Granulation Amt Small (1-33%) -Granulation Quality Red -Slough/Fibrin Yes -Necrosis Amt Large (67-100%) -Necrotic Tissue Type Adherent Slough -Texture (Cecelia-wound Skin Appearance) Assessed,Callus ,Scarring -Moisture (Cecelia-wound Skin Appearance Assessed,Dry/ ) Scaly -Color (Cecelia-wound Skin Appearance) Assessed -Temperature (Cecelia-wound Skin No Abnormality Appearance) (Pt Warm) -Tenderness on Palpation (Cecelia-wound No Skin Appearance) -Ulcer Cleansing SOAPY WATER -Foul Odor after Cleansing No -Anesthetic Used 4% Lidocaine Solution WC - Nurse 2 - General Ulcer CM Notes Start: 09/16/20 10:39 Freq: Status: Active Protocol: Activity Type Activity Date Activity User E-Sign Co-Sign Detail Recorded Client Recorded Date Recorded By Document 09/16/20 11:09 STEPHANIE [id number] 09/16/20 11:16 STEPHANIE 09/16/20 11:09 Wound Center Nurse 2 [Procedure/Treatment] #5- L GREAT TOE -Time 11:14 -Correct Patient Yes -Correct Side, Site, Position Yes -Correct Procedure Yes -Procedure Performed Yes -Type of Procedure Debridement -Clinical Debridement Subcutaneous -Tissue Removed Subcutaneous -Post Debridement (cm) - Length 0.8 -Post Debridement (cm) - Width 0.2 -Post Debridement (cm) - Depth 0.1 -Total Square (Post) (cm) 0.16 -Area of Debridement (cm) - Length 0.8 -Area of Debridement (cm) - Width 0.2 -Total Square (Area) (cm) 0.16 -Tunneling No -Undermining/Tunneling No -Circular Undermining No -Wound/Ulcer Outcome Not Healed -Ulcer Cleansing Rinsed/ Irrigated with Saline -Foul Odor after Cleansing No -Bioengineered Tissue No -Bleeding Controlled with Pressure -Offloading Yes -Type of Offloading Camwalker -Treatment Response Procedure Tolerated Well -Debridement - Subq, 1st 20sq cm No #4- L LAT HEEL -Correct Patient No -Correct Side, Site, Position No -Correct Procedure No -Procedure Performed No -Post Debridement (cm) - Length 0 -Post Debridement (cm) - Width 0 -Post Debridement (cm) - Depth 0 -Total Square (Post) (cm) 0 -Area of Debridement (cm) - Length 0 -Area of Debridement (cm) - Width 0 -Total Square (Area) (cm) 0 -Wound/Ulcer Outcome Healed- Epithelialized #1 Left Heel- Plantar -Correct Patient Yes -Correct Side, Site, Position Yes -Correct Procedure Yes -Procedure Performed Yes -Type of Procedure Debridement -Clinical Debridement Subcutaneous -Tissue Removed Subcutaneous -Post Debridement (cm) - Length 0.6 -Post Debridement (cm) - Width 1.8 -Post Debridement (cm) - Depth 0.5 -Total Square (Post) (cm) 1.08 -Area of Debridement (cm) - Length 0.6 -Area of Debridement (cm) - Width 1.8 -Total Square (Area) (cm) 1.08 -Tunneling No -Undermining/Tunneling No -Circular Undermining No -Wound/Ulcer Outcome Not Healed -Ulcer Cleansing Rinsed/ Irrigated with Saline -Foul Odor after Cleansing No -Bioengineered Tissue No -Bleeding Controlled with Pressure -Offloading Yes -Type of Offloading Camwalker -Treatment Response Procedure Tolerated Well -Debridement - Subq, 1st 20sq cm Yes [See Physician Procedure note for Specifics] Pain Scale: 0-10 Numeric [Pain] -Is Patient Pain Free? Yes - Nurse 3 - General Ulcer D/C NN Start: 09/16/20 10:39 Freq: Status: Active Protocol: Activity Type Activity Date Activity User E-Sign Co-Sign Detail Recorded Client Recorded Date Recorded By Document 09/16/20 11:20 MT [id number] 09/16/20 11:20 MT 09/16/20 11:20 Wound Care Nurse 3 [Wound Dressing] #5- L GREAT TOE -Ulcer Cleansing Rinsed/ Irrigated with Saline -Primary Dressing Covered/Secured Dry Gauze, with Secured with Tape WC - Visit Discharge [Visit Discharge Information] -Discharge Condition Stable -Ambulatory Status Ambulatory -Transportation Private Auto -Medication Reconcilliation completed No & provided to patient/care provider -Clinical Summary of Care Provided Yes -Notes: orders Musculoskeletal: No Tenderness to Palpation of Joints or Extremities, Muscle Wasting, - - Pain to palpate incurvated nail left hallux lateral border. Pain with ulcer manipulation. No bogginess or fluctuance on palpation. No pain to palpate the hallux interphalangeal joint or passive range of motion Neurological: Sensory exam intact to light touch and pain, - Psych/Mental Status: Normal Affect, Appropriate Debridement Note Post-Debridement Measurements/Treatment WC - Nurse 2 - General Ulcer CM Notes Start: 09/16/20 10:39 Freq: Status: Active Protocol: Activity Type Activity Date Activity User E-Sign Co-Sign Detail Recorded Client Recorded Date Recorded By Document 09/16/20 11:09 STEPHANIE [id number] 09/16/20 11:16 STEPHANIE 09/16/20 11:09 Wound Center Nurse 2 #5- L GREAT TOE -Time 11:14 -Correct Patient Yes -Correct Side, Site, Position Yes -Correct Procedure Yes -Procedure Performed Yes -Type of Procedure Debridement -Clinical Debridement Subcutaneous -Tissue Removed Subcutaneous -Post Debridement (cm) - Length 0.8 -Post Debridement (cm) - Width 0.2 -Post Debridement (cm) - Depth 0.1 -Total Square (Post) (cm) 0.16 -Area of Debridement (cm) - Length 0.8 -Area of Debridement (cm) - Width 0.2 -Total Square (Area) (cm) 0.16 -Tunneling No -Undermining/Tunneling No -Circular Undermining No -Wound/Ulcer Outcome Not Healed -Ulcer Cleansing Rinsed/ Irrigated with Saline -Foul Odor after Cleansing No -Bioengineered Tissue No -Bleeding Controlled with Pressure -Offloading Yes -Type of Offloading Camwalker -Treatment Response Procedure Tolerated Well -Debridement - Subq, 1st 20sq cm No #4- L LAT HEEL -Correct Patient No -Correct Side, Site, Position No -Correct Procedure No -Procedure Performed No -Post Debridement (cm) - Length 0 -Post Debridement (cm) - Width 0 -Post Debridement (cm) - Depth 0 -Total Square (Post) (cm) 0 -Area of Debridement (cm) - Length 0 -Area of Debridement (cm) - Width 0 -Total Square (Area) (cm) 0 -Wound/Ulcer Outcome Healed- Epithelialized #1 Left Heel- Plantar -Correct Patient Yes -Correct Side, Site, Position Yes -Correct Procedure Yes -Procedure Performed Yes -Type of Procedure Debridement -Clinical Debridement Subcutaneous -Tissue Removed Subcutaneous -Post Debridement (cm) - Length 0.6 -Post Debridement (cm) - Width 1.8 -Post Debridement (cm) - Depth 0.5 -Total Square (Post) (cm) 1.08 -Area of Debridement (cm) - Length 0.6 -Area of Debridement (cm) - Width 1.8 -Total Square (Area) (cm) 1.08 -Tunneling No -Undermining/Tunneling No -Circular Undermining No -Wound/Ulcer Outcome Not Healed -Ulcer Cleansing Rinsed/ Irrigated with Saline -Foul Odor after Cleansing No -Bioengineered Tissue No -Bleeding Controlled with Pressure -Offloading Yes -Type of Offloading Camwalker -Treatment Response Procedure Tolerated Well -Debridement - Subq, 1st 20sq cm Yes Pain Scale: 0-10 Numeric Is Patient Pain Free? Yes - Nurse 3 - General Ulcer D/C NN Start: 09/16/20 10:39 Freq: Status: Active Protocol: Activity Type Activity Date Activity User E-Sign Co-Sign Detail Recorded Client Recorded Date Recorded By Document 09/16/20 11:20 AR [id number] 09/16/20 11:20 AR 09/16/20 11:20 Wound Care Nurse 3 #5- L GREAT TOE -Ulcer Cleansing Rinsed/ Irrigated with Saline -Primary Dressing Covered/Secured with Dry Gauze, Secured with Tape - Visit Discharge Discharge Condition Stable Ambulatory Status Ambulatory Transportation Private Auto Medication Reconcilliation completed & No provided to patient/care provider Clinical Summary of Care Provided Yes Notes: orders Wound debrided: plantar heel Laterality: Left Type of Debridement: Excisional debridement Anesthesia Used: 5% Lidocaine Gel Depth: in the subcutaneous layer Percentage of wound debrided: 100 Instrument Used: #15 blade Tissue Removed: fibrous, devitalized subcutaneous, biofilm, slough Severity: Fat Layer Exposed Amount of bleeding with debridement: Mild Bleeding Controlled with: Pressure Patient tolerated procedure well Assessment/Plan Active Problems Lupus (systemic lupus erythematosus) (Chronic) Ulcer of left foot with fat layer exposed (Chronic) Calcaneal gait (Chronic) left Delayed wound healing (Chronic) Ingrowing nail, left great toe (Acute) Assessment: New ingrown toenail lateral hallux border. Left heel ulcer, fat layer exposed. Contamination versus infection work-up in process. Blister adjacent to heel ulcer with residual wound is now healed. medial foot cluster ulcers remain healed today. Lupus. Lower extremity edema. Left calcaneus gait. MRSA infection with cellulitis, history Plan: I reviewed and discussed her case. Subcutaneous excisional debridement was performed as noted in the clinical panel. She was reassured that there are no local signs of infection today. She completed a course of epifix and has responded well. To wash daily with Annette-Hex and to perform Dakin wet-to-dry dressing to the heel. The cecelia-ulcer inflammation is noted. I recommend work-up for infection. A culture was obtained including aerobic, anaerobic, MRSA PCR. We will consider additional total contact cast application next week if this continues with decreased moisture and no infection is noted. To maintain strict nonweightbearing status with the knee roller. She was advised to maintain a balanced whole food diet with adequate protein and nutrients to optimize healing. A prescription for Yosvany was provided and she was advised on proper use. I offered her a station jailer referral as well and she canceled this appointment. She is trying to reschedule. She understands her systemic inflammatory disease of lupus may also be contributing to delayed healing. She will avoid antirheumatic medications at this time. She was advised to avoid prednisone use and will also hold the Plaquenil at this time unless she has an intense flareup. This have reviewed verbally with Dr. Pratt. I answered all of her questions. A wedge resection was performed to the lateral border of the left hallux nail with immediate relief. It is okay to also perform wound care to the site with Dakin gauze. She was advised to return to the wound healing center in 1 week. To call sooner if she has any questions or concerns or any evidence of infection development. Note: [employer] speech recognition piped pocket machine operator software was used to create portions of this document. Sound-alike and misspelled words, as well as other piped pocket machine operator errors may be contained in the documentation.
[2020-09-23 15:14] VITALS: BP 143/95; PULSE 98; RESP 18; TEMP 36.1; BMI 39.5
--- NOTE | 2020-09-23 21:14 | PN.PCM_ITS ---
(1) Ulcer of left foot with fat layer exposed Status: Chronic Code(s): L97.522 - Non-pressure chronic ulcer of other part of left foot with fat layer exposed (2) Colonization status Status: Suspected Code(s): Z22.9 - Carrier of infectious disease, unspecified (3) Ingrowing nail, left great toe Status: Resolved Code(s): L60.0 - Ingrowing nail (4) Lupus (systemic lupus erythematosus) Status: Chronic Qualifiers: Code(s): M32.9 - Systemic lupus erythematosus, unspecified (5) Calcaneal gait Status: Chronic Code(s): R26.89 - Other abnormalities of gait and mobility Comment: left (6) Delayed wound healing Status: Chronic Code(s): T14.8XXD - Other injury of unspecified body region, subsequent encounter Type of Wound Date of Service: 09/23/20 Chief Complaint: Left heel ulcer History of Wound: This pleasant 55-year-old female with significant past medical history of lupus, history of panic attack, depression, history of delayed healing, hyperlipidemia, irritable bowel syndrome, memory loss, restless leg syndrome, and obstructive sleep apnea is here for follow-up of left heel ulcer. She denies fever, chill, nausea, vomiting. Her left foot pain is increased and she has increased drainage as well. She has some heel inflammation and extra swelling. She has discontinued her lupus medication as advised (managed by rheumatology). She also complains of ingrown toenail to the left great toe outer border that improved after wedge resection last week; she denies drainage. discoloration and pain have decreased. She is amendable to proceed with a total contact cast today. Progress of Wound: Healed medial foot ulcers. Deeper heel ulcer improving - Physical Exam Vital Signs Temp Pulse Resp BP 97 F L 98 18 143/95 H 09/23/20 15:14 09/23/20 15:14 09/23/20 15:14 09/23/20 15:14 General: Alert, Oriented x3, Cooperative, No apparent distress HEENT: Atraumatic Extremities: No cyanosis, Capillary Refill Less than 3 Seconds, No Calf Tenderness, Diminished Peripheral Pulses, Edema Skin: Ulcer/ Wound - no purulence, erythema, odor infection or deep probing. no streaking. full epithelialization to hallux at prior wedge resection site (lateral border) Wound Measurements and Assessment WC - Nurse 1 - General Ulcer Measurement Start: 09/16/20 10:39 Freq: Status: Active Protocol: Activity Type Activity Date Activity User E-Sign Co-Sign Detail Recorded Client Recorded Date Recorded By Document 09/23/20 15:14 RB [id number] 09/23/20 15:20 RB 09/23/20 15:14 Wound Center Nurse 1 [Ulcer Assessment] #5- L GREAT TOE -Combined with other wound No -Current Size (cm) - Length 0.1 -Current Size (cm) - Width 0.1 -Current Size (cm) - Depth 0.1 -Total Square Cm 0.01 -Tunneling No -Undermining/Tunneling No -Circular Undermining No -Exudate Amt None Present -Granulation Amt Large (67-100%) -Granulation Quality N/A,[place] -Necrosis Amt None Present (0 %) -Structure Exposed N/A -Texture (Mounika-wound Skin Appearance) Assessed -Moisture (Mounika-wound Skin Appearance Assessed ) -Color (Mounika-wound Skin Appearance) Assessed -Temperature (Mounika-wound Skin No Abnormality Appearance) (Pt Warm) -Tenderness on Palpation (Mounika-wound No Skin Appearance) -Ulcer Cleansing Wound Cleanser -Foul Odor after Cleansing No #1 Left Heel- Plantar -Combined with other wound No -Current Size (cm) - Length 1.3 -Current Size (cm) - Width 1.3 -Current Size (cm) - Depth 0.4 -Total Square Cm 1.69 -Tunneling No -Undermining/Tunneling No -Circular Undermining No -Exudate Amt Medium -Exudate Type Serosanguineous -Wound Margin Thickened -Granulation Amt Medium (34-66%) -Granulation Quality [place],Red -Slough/Fibrin Yes -Necrosis Amt Small (1-33%) -Necrotic Tissue Type Adherent Slough -Structure Exposed N/A -Texture (Mounika-wound Skin Appearance) Callus -Moisture (Mounika-wound Skin Appearance Assessed ) -Color (Mounika-wound Skin Appearance) Assessed -Temperature (Mounika-wound Skin No Abnormality Appearance) (Pt Warm) -Tenderness on Palpation (Mounika-wound No Skin Appearance) -Ulcer Cleansing Wound Cleanser -Foul Odor after Cleansing No -Anesthetic Used 4% Lidocaine Solution WC - Nurse 2 - General Ulcer CM Notes Start: 09/16/20 10:39 Freq: Status: Active Protocol: Activity Type Activity Date Activity User E-Sign Co-Sign Detail Recorded Client Recorded Date Recorded By Document 09/23/20 15:24 [id number] 09/23/20 15:31 JF 09/23/20 15:24 Wound Center Nurse 2 [Procedure/Treatment] #5- L GREAT TOE -Correct Patient No -Correct Side, Site, Position No -Correct Procedure No -Procedure Performed No -Post Debridement (cm) - Length 0 -Post Debridement (cm) - Width 0 -Post Debridement (cm) - Depth 0 -Total Square (Post) (cm) 0 -Area of Debridement (cm) - Length 0 -Area of Debridement (cm) - Width 0 -Total Square (Area) (cm) 0 -Wound/Ulcer Outcome Healed- Epithelialized #1 Left Heel- Plantar -Time 15:28 -Correct Patient Yes -Correct Side, Site, Position Yes -Correct Procedure Yes -Procedure Performed Yes -Type of Procedure Debridement -Clinical Debridement Subcutaneous -Tissue Removed Subcutaneous -Post Debridement (cm) - Length 1.4 -Post Debridement (cm) - Width 1.4 -Post Debridement (cm) - Depth 0.3 -Total Square (Post) (cm) 1.96 -Area of Debridement (cm) - Length 1.4 -Area of Debridement (cm) - Width 1.4 -Total Square (Area) (cm) 1.96 -Tunneling No -Undermining/Tunneling No -Circular Undermining No -Wound/Ulcer Outcome Not Healed -Ulcer Cleansing Rinsed/ Irrigated with Saline -Foul Odor after Cleansing No -Bioengineered Tissue No -Bleeding Controlled with Pressure -Offloading Yes -Type of Offloading Total Contact Cast (TCC) - Left ($) -Debridement - Subq, 1st 20sq cm Yes [See Physician Procedure note for Specifics] Pain Scale: 0-10 Numeric [Pain] -Is Patient Pain Free? Yes WC - Nurse 3 - General Ulcer D/C NN Start: 09/16/20 10:39 Freq: Status: Active Protocol: Activity Type Activity Date Activity User E-Sign Co-Sign Detail Recorded Client Recorded Date Recorded By Document 09/23/20 15:47 [id number] [id number] 09/23/20 15:48 BMF 09/23/20 15:47 Wound Care Nurse 3 [Wound Dressing] #1 Left Heel- Plantar -Ulcer Cleansing Rinsed/ Irrigated with Saline -Foul Odor after Cleansing No -Primary Dressing Applied Aquacel AG 4x4 -Primary Dressing Covered/Secured Other with -Other Covering tcc -Aquacel AG 4x4 1 [Post Procedure Tolerated] -Treatment Response Procedure Tolerated Well Pain Scale: 0-10 Numeric [Pain] -Is Patient Pain Free? Yes - Visit Discharge [Visit Discharge Information] -Discharge Condition Stable -Ambulatory Status Ambulatory, Walker -Transportation Private Auto -Accompanied by knee walker Musculoskeletal: No Tenderness to Palpation of Joints or Extremities, Muscle Wasting, - - calcaneus gait Neurological: Sensory exam intact to light touch and pain, - Psych/Mental Status: Normal Affect, Appropriate Debridement Note Post-Debridement Measurements/Treatment - Nurse 2 - General Ulcer CM Notes Start: 09/16/20 10:39 Freq: Status: Active Protocol: Activity Type Activity Date Activity User E-Sign Co-Sign Detail Recorded Client Recorded Date Recorded By Document 09/16/20 11:09 [id number] 09/16/20 11:16 Document 09/23/20 15:24 [id number] 09/23/20 15:31 09/16/20 09/23/20 11:09 15:24 Wound Center Nurse 2 #5- L GREAT TOE -Time 11:14 -Correct Patient Yes No -Correct Side, Site, Position Yes No -Correct Procedure Yes No -Procedure Performed Yes No -Type of Procedure Debridement -Clinical Debridement Subcutaneous -Tissue Removed Subcutaneous -Post Debridement (cm) - Length 0.8 0 -Post Debridement (cm) - Width 0.2 0 -Post Debridement (cm) - Depth 0.1 0 -Total Square (Post) (cm) 0.16 0 -Area of Debridement (cm) - Length 0.8 0 -Area of Debridement (cm) - Width 0.2 0 -Total Square (Area) (cm) 0.16 0 -Tunneling No -Undermining/Tunneling No -Circular Undermining No -Wound/Ulcer Outcome Not Healed Healed- Epithelialized -Ulcer Cleansing Rinsed/ Irrigated with Saline -Foul Odor after Cleansing No -Bioengineered Tissue No -Bleeding Controlled with Pressure -Offloading Yes -Type of Offloading Camwalker -Treatment Response Procedure Tolerated Well -Debridement - Subq, 1st 20sq cm No #4- L LAT HEEL -Correct Patient No -Correct Side, Site, Position No -Correct Procedure No -Procedure Performed No -Post Debridement (cm) - Length 0 -Post Debridement (cm) - Width 0 -Post Debridement (cm) - Depth 0 -Total Square (Post) (cm) 0 -Area of Debridement (cm) - Length 0 -Area of Debridement (cm) - Width 0 -Total Square (Area) (cm) 0 -Wound/Ulcer Outcome Healed- Epithelialized #1 Left Heel- Plantar -Time 15:28 -Correct Patient Yes Yes -Correct Side, Site, Position Yes Yes -Correct Procedure Yes Yes -Procedure Performed Yes Yes -Type of Procedure Debridement Debridement -Clinical Debridement Subcutaneous Subcutaneous -Tissue Removed Subcutaneous Subcutaneous -Post Debridement (cm) - Length 0.6 1.4 -Post Debridement (cm) - Width 1.8 1.4 -Post Debridement (cm) - Depth 0.5 0.3 -Total Square (Post) (cm) 1.08 1.96 -Area of Debridement (cm) - Length 0.6 1.4 -Area of Debridement (cm) - Width 1.8 1.4 -Total Square (Area) (cm) 1.08 1.96 -Tunneling No No -Undermining/Tunneling No No -Circular Undermining No No -Wound/Ulcer Outcome Not Healed Not Healed -Ulcer Cleansing Rinsed/ Rinsed/ Irrigated with Irrigated with Saline Saline -Foul Odor after Cleansing No No -Bioengineered Tissue No No -Bleeding Controlled with Pressure Pressure -Offloading Yes Yes -Type of Offloading Camwalker Total Contact Cast (TCC) - Left ($) -Treatment Response Procedure Tolerated Well -Debridement - Subq, 1st 20sq cm Yes Yes Pain Scale: 0-10 Numeric Is Patient Pain Free? Yes Yes - Nurse 3 - General Ulcer D/C NN Start: 09/16/20 10:39 Freq: Status: Active Protocol: Activity Type Activity Date Activity User E-Sign Co-Sign Detail Recorded Client Recorded Date Recorded By Document 09/16/20 11:20 [place] [id number] 09/16/20 11:20 [place] Document 09/23/20 15:47 [facility] [id number] 09/23/20 15:48 BM 09/16/20 09/23/20 11:20 15:47 Wound Care Nurse 3 #5- L GREAT TOE -Ulcer Cleansing Rinsed/ Irrigated with Saline -Primary Dressing Covered/Secured with Dry Gauze, Secured with Tape #1 Left Heel- Plantar -Ulcer Cleansing Rinsed/ Irrigated with Saline -Foul Odor after Cleansing No -Primary Dressing Applied Aquacel AG 4x4 -Primary Dressing Covered/Secured with Other -Other Covering tcc -Aquacel AG 4x4 1 Treatment Response Procedure Tolerated Well Pain Scale: 0-10 Numeric Is Patient Pain Free? Yes WC - Visit Discharge Discharge Condition Stable Stable Ambulatory Status Ambulatory Ambulatory, Walker Transportation Private Auto Private Auto Accompanied by knee walker Medication Reconcilliation completed & No provided to patient/care provider Clinical Summary of Care Provided Yes Notes: orders Wound debrided: plantar heel Laterality: Left Type of Debridement: Excisional debridement Anesthesia Used: 5% Lidocaine Gel Depth: in the subcutaneous layer Percentage of wound debrided: 100 Instrument Used: #15 blade Tissue Removed: fibrous, devitalized subcutaneous, biofilm, slough Severity: Fat Layer Exposed Amount of bleeding with debridement: Mild Bleeding Controlled with: Pressure Patient tolerated procedure well Assessment/Plan Active Problems Lupus (systemic lupus erythematosus) (Chronic) Ulcer of left foot with fat layer exposed (Chronic) Calcaneal gait (Chronic) left Delayed wound healing (Chronic) Assessment: New ingrown toenail lateral hallux border- resolved now s/p wedge resection. Left heel ulcer, fat layer exposed. Contamination MRSA- treated with oral antibiotics. Lupus. Lower extremity edema. Left calcaneus gait. MRSA infection with cellulitis, history Plan: I reviewed and discussed her case. Subcutaneous excisional debridement was performed as noted in the clinical panel. She was reassured that there are no local signs of infection today. She completed a course of epifix and has responded well. She has completed a course of dakin wet to dry and doxycycline with heel improvement noted. to complete 10 day course of oral antibiotic; mrsa positive culture noted. The mounika-ulcer inflammation has resolved. Verbal consent was obtained for total contact cast application after aquacel ag was applied. This was applied according to standard protocol in neutral position in a well padded manner. He tolerated this well. To maintain strict nonweightbearing status with the knee roller. She was advised to maintain a balanced whole food diet with adequate protein and nutrients to optimize healing. A prescription for Yosvany was provided and she was advised on proper use. I offered her a manager creative referral as well and she canceled this appointment. She is trying to reschedule. She understands her systemic inflammatory disease of lupus may also be contributing to delayed healing. She will avoid antirheumatic medications at this time. She was advised to avoid prednisone use and will also hold the Plaquenil at this time unless she has an intense flareup. This have reviewed verbally with Dr. Pratt previously. I answered all of her questions. She was advised to return to the wound healing center in 1 week. To call sooner if she has any questions or concerns or any evidence of infection development. Note: [employer] speech recognition ground transportation operator software was used to create portions of this document. Sound-alike and misspelled words, as well as other ground transportation operator errors may be contained in the documentation.
[2020-09-30 14:40] VITALS: BP 136/86; PULSE 96; RESP 20; TEMP 36.4; BMI 39.5
--- NOTE | 2020-09-30 22:50 | PN.PCM_ITS ---
(1) Ulcer of left foot with fat layer exposed Status: Chronic Code(s): L97.522 - Non-pressure chronic ulcer of other part of left foot with fat layer exposed (2) Colonization status Status: Suspected Code(s): Z22.9 - Carrier of infectious disease, unspecified (3) Lupus (systemic lupus erythematosus) Status: Chronic Qualifiers: Code(s): M32.9 - Systemic lupus erythematosus, unspecified (4) Calcaneal gait Status: Chronic Code(s): R26.89 - Other abnormalities of gait and mobility Comment: left (5) Delayed wound healing Status: Chronic Code(s): T14.8XXD - Other injury of unspecified body region, subsequent encounter Type of Wound Date of Service: 09/30/20 Chief Complaint: Left heel ulcer History of Wound: This pleasant 55-year-old female with significant past medical history of lupus, history of panic attack, depression, history of delayed healing, hyperlipidemia, irritable bowel syndrome, memory loss, restless leg syndrome, and obstructive sleep apnea is here for follow-up of left heel ulcer. She denies fever, chill, nausea, vomiting. Her left foot pain is increased and she has increased drainage as well. She has some heel inflammation and extra swelling. She has discontinued her lupus medication as advised (managed by rheumatology). She is amendable to proceed with a total contact cast today. She is taking doxycycline as advised without known side effects. Progress of Wound: Healed medial foot ulcers. Heel ulcer improving - Physical Exam Vital Signs Temp Pulse Resp BP 97.6 F L 96 20 H 136/86 H 09/30/20 14:40 09/30/20 14:40 09/30/20 14:40 09/30/20 14:40 General: Alert, Oriented x3, Cooperative, No apparent distress HEENT: Atraumatic Extremities: No cyanosis, Capillary Refill Less than 3 Seconds, No Calf Tenderness, Diminished Peripheral Pulses, Edema - Decreased, - - Calcaneus gait style. Compartments are soft. No bogginess or fluctuance on palpation. Reduced ulcer depth noted Skin: Ulcer/ Wound - No purulence, erythema, string, odor, infection. Periulcer inflammation is decreased Wound Measurements and Assessment WC - Nurse 1 - General Ulcer Measurement Start: 09/16/20 10:39 Freq: Status: Active Protocol: Activity Type Activity Date Activity User E-Sign Co-Sign Detail Recorded Client Recorded Date Recorded By Document 09/30/20 14:40 DL [id number] 09/30/20 14:51 DL 09/30/20 14:40 Wound Center Nurse 1 [Ulcer Assessment] #1 Left Heel- Plantar -Current Size (cm) - Length 1.3 -Current Size (cm) - Width 0.9 -Current Size (cm) - Depth 0.4 -Total Square Cm 1.17 -Photo Taken No -Exudate Amt Small -Exudate Type Serosanguineous -Wound Margin Thickened -Granulation Amt Medium (34-66%) -Granulation Quality Red -Necrosis Amt Medium (34-66%) -Necrotic Tissue Type Adherent Slough -Structure Exposed N/A -Texture (Cecelia-wound Skin Appearance) Scarring -Moisture (Cecelia-wound Skin Appearance Maceration ) -Color (Cecelia-wound Skin Appearance) No Abnormality -Temperature (Cecelia-wound Skin No Abnormality Appearance) (Pt Warm) -Tenderness on Palpation (Cecelia-wound No Skin Appearance) -Ulcer Cleansing Wound Cleanser -Foul Odor after Cleansing No -Anesthetic Used 4% Lidocaine Solution WC - Nurse 2 - General Ulcer CM Notes Start: 09/16/20 10:39 Freq: Status: Active Protocol: Activity Type Activity Date Activity User E-Sign Co-Sign Detail Recorded Client Recorded Date Recorded By Document 09/30/20 15:16 STEPHANIE [id number] 09/30/20 15:18 STEPHANIE 09/30/20 15:16 Wound Center Nurse 2 [Procedure/Treatment] -Time 15:17 -Correct Patient Yes -Correct Side, Site, Position Yes -Correct Procedure Yes -Procedure Performed Yes -Type of Procedure Debridement -Clinical Debridement Subcutaneous -Tissue Removed Subcutaneous -Post Debridement (cm) - Length 1.3 -Post Debridement (cm) - Width 1 -Post Debridement (cm) - Depth 0.4 -Total Square (Post) (cm) 1.3 -Area of Debridement (cm) - Length 1.3 -Area of Debridement (cm) - Width 1.0 -Total Square (Area) (cm) 1.30 -Tunneling No -Undermining/Tunneling No -Circular Undermining No -Wound/Ulcer Outcome Not Healed -Ulcer Cleansing Rinsed/ Irrigated with Saline -Foul Odor after Cleansing No -Bioengineered Tissue No -Bleeding Controlled with Pressure -Offloading Yes -Type of Offloading Total Contact Cast (TCC) - Left ($) -Treatment Response Procedure Tolerated Well -Debridement - Subq, 1st 20sq cm Yes [See Physician Procedure note for Specifics] Pain Scale: 0-10 Numeric [Pain] -Is Patient Pain Free? Yes - Nurse 3 - General Ulcer D/C NN Start: 09/16/20 10:39 Freq: Status: Active Protocol: Activity Type Activity Date Activity User E-Sign Co-Sign Detail Recorded Client Recorded Date Recorded By Document 09/30/20 15:24 [facility] [id number] 09/30/20 15:26 [facility] 09/30/20 15:24 Wound Care Nurse 3 [Wound Dressing] #1 Left Heel- Plantar -Ulcer Cleansing Rinsed/ Irrigated with Saline -Foul Odor after Cleansing No -Primary Dressing Applied Aquacel AG 2x2, Other -Other Dressing TCC UNDERCAST APPLIED PER D [employer] MANAGER -Aquacel AG 2x2 1 [Post Procedure Tolerated] -Treatment Response Procedure Tolerated Well Pain Scale: 0-10 Numeric [Pain] -Is Patient Pain Free? Yes - Visit Discharge [Visit Discharge Information] -Discharge Condition Stable -Ambulatory Status Ambulatory -Transportation Private Auto Musculoskeletal: No Tenderness to Palpation of Joints or Extremities, Muscle Wasting Neurological: - - Lack of normal epicritic sensation to light touch Psych/Mental Status: Normal Affect, Appropriate Debridement Note Post-Debridement Measurements/Treatment - Nurse 2 - General Ulcer CM Notes Start: 09/16/20 10:39 Freq: Status: Active Protocol: Activity Type Activity Date Activity User E-Sign Co-Sign Detail Recorded Client Recorded Date Recorded By Document 09/16/20 11:09 [id number] 09/16/20 11:16 Document 09/23/20 15:24 [id number] 09/23/20 15:31 Document 09/30/20 15:16 [id number] 09/30/20 15:18 09/16/20 09/23/20 09/30/20 11:09 15:24 15:16 Wound Center Nurse 2 #5- L GREAT TOE -Time 11:14 -Correct Patient Yes No -Correct Side, Site, Position Yes No -Correct Procedure Yes No -Procedure Performed Yes No -Type of Procedure Debridement -Clinical Debridement Subcutaneous -Tissue Removed Subcutaneous -Post Debridement (cm) - Length 0.8 0 -Post Debridement (cm) - Width 0.2 0 -Post Debridement (cm) - Depth 0.1 0 -Total Square (Post) (cm) 0.16 0 -Area of Debridement (cm) - Length 0.8 0 -Area of Debridement (cm) - Width 0.2 0 -Total Square (Area) (cm) 0.16 0 -Tunneling No -Undermining/Tunneling No -Circular Undermining No -Wound/Ulcer Outcome Not Healed Healed- Epithelialized -Ulcer Cleansing Rinsed/ Irrigated with Saline -Foul Odor after Cleansing No -Bioengineered Tissue No -Bleeding Controlled with Pressure -Offloading Yes -Type of Offloading Camwalker -Treatment Response Procedure Tolerated Well -Debridement - Subq, 1st 20sq cm No #4- L LAT HEEL -Correct Patient No -Correct Side, Site, Position No -Correct Procedure No -Procedure Performed No -Post Debridement (cm) - Length 0 -Post Debridement (cm) - Width 0 -Post Debridement (cm) - Depth 0 -Total Square (Post) (cm) 0 -Area of Debridement (cm) - Length 0 -Area of Debridement (cm) - Width 0 -Total Square (Area) (cm) 0 -Wound/Ulcer Outcome Healed- Epithelialized #1 Left Heel- Plantar -Time 15:28 15:17 -Correct Patient Yes Yes Yes -Correct Side, Site, Position Yes Yes Yes -Correct Procedure Yes Yes Yes -Procedure Performed Yes Yes Yes -Type of Procedure Debridement Debridement Debridement -Clinical Debridement Subcutaneous Subcutaneous Subcutaneous -Tissue Removed Subcutaneous Subcutaneous Subcutaneous -Post Debridement (cm) - Length 0.6 1.4 1.3 -Post Debridement (cm) - Width 1.8 1.4 1 -Post Debridement (cm) - Depth 0.5 0.3 0.4 -Total Square (Post) (cm) 1.08 1.96 1.3 -Area of Debridement (cm) - Length 0.6 1.4 1.3 -Area of Debridement (cm) - Width 1.8 1.4 1.0 -Total Square (Area) (cm) 1.08 1.96 1.30 -Tunneling No No No -Undermining/Tunneling No No No -Circular Undermining No No No -Wound/Ulcer Outcome Not Healed Not Healed Not Healed -Ulcer Cleansing Rinsed/ Rinsed/ Rinsed/ Irrigated with Irrigated with Irrigated with Saline Saline Saline -Foul Odor after Cleansing No No No -Bioengineered Tissue No No No -Bleeding Controlled with Pressure Pressure Pressure -Offloading Yes Yes Yes -Type of Offloading Camwalker Total Contact Total Contact Cast (TCC) - Cast (TCC) - Left ($) Left ($) -Treatment Response Procedure Procedure Tolerated Well Tolerated Well -Debridement - Subq, 1st 20sq cm Yes Yes Yes Pain Scale: 0-10 Numeric Is Patient Pain Free? Yes Yes Yes - Nurse 3 - General Ulcer D/C NN Start: 09/16/20 10:39 Freq: Status: Active Protocol: Activity Type Activity Date Activity User E-Sign Co-Sign Detail Recorded Client Recorded Date Recorded By Document 09/16/20 11:20 [place] [id number] 09/16/20 11:20 [place] Document 09/23/20 15:47 [facility] [id number] 09/23/20 15:48 [facility] Document 09/30/20 15:24 [facility] [id number] 09/30/20 15:26 [facility] 09/16/20 09/23/20 09/30/20 11:20 15:47 15:24 Wound Care Nurse 3 #5- L GREAT TOE -Ulcer Cleansing Rinsed/ Irrigated with Saline -Primary Dressing Covered/Secured with Dry Gauze, Secured with Tape #1 Left Heel- Plantar -Ulcer Cleansing Rinsed/ Rinsed/ Irrigated with Irrigated with Saline Saline -Foul Odor after Cleansing No No -Primary Dressing Applied Aquacel AG 4x4 Aquacel AG 2x2, Other -Other Dressing TCC UNDERCAST APPLIED PER D [employer]REACH MANAGER -Primary Dressing Covered/Secured with Other -Other Covering tcc -Aquacel AG 4x4 1 -Aquacel AG 2x2 1 Treatment Response Procedure Procedure Tolerated Well Tolerated Well Pain Scale: 0-10 Numeric Is Patient Pain Free? Yes Yes - Visit Discharge Discharge Condition Stable Stable Stable Ambulatory Status Ambulatory Ambulatory, Ambulatory Walker Transportation Private Auto Private Auto Private Auto Accompanied by knee walker Medication Reconcilliation completed & No provided to patient/care provider Clinical Summary of Care Provided Yes Notes: orders Wound debrided: plantar heel Laterality: Left Type of Debridement: Excisional debridement Anesthesia Used: 4% Lidocaine Solution Depth: in the subcutaneous layer Percentage of wound debrided: 100 Instrument Used: #15 blade Tissue Removed: fibrous, devitalized subcutaneous, biofilm, slough Severity: Fat Layer Exposed Amount of bleeding with debridement: Mild Bleeding Controlled with: Pressure Patient tolerated procedure well Assessment/Plan Active Problems Lupus (systemic lupus erythematosus) (Chronic) Ulcer of left foot with fat layer exposed (Chronic) Calcaneal gait (Chronic) left Delayed wound healing (Chronic) Assessment: Left heel ulcer, fat layer exposed. Contamination MRSA- treated with oral antibiotics. Lupus. Lower extremity edema. Left calcaneus gait. MRSA infection with cellulitis, history Plan: I reviewed and discussed her case. Subcutaneous excisional debridement was performed as noted in the clinical panel. She was reassured that there are no local signs of infection today. She is taking doxycycline and a refill was provided so she completes a 14-day course. She completed a course of epifix and has responded well. She has completed a course of dakin wet to dry and doxycycline with heel improvement noted. to complete 10 day course of oral antibiotic; mrsa positive culture noted. The cecelia-ulcer inflammation has resolved. Verbal consent was obtained for total contact cast application after aquacel ag was applied. This was applied according to standard protocol in neutral position in a well padded manner. He tolerated this well. To maintain strict nonweightbearing status with the knee roller. She was advised to maintain a balanced whole food diet with adequate protein and nutrients to optimize healing. A prescription for Yosvany was provided previously and she was advised on proper use. I offered her a figure skater referral as well and she canceled this appointment. She is trying to reschedule. She understands her systemic inflammatory disease of lupus may also be contributing to delayed healing. She will avoid antirheumatic medications at this time. She was advised to avoid prednisone use and will also hold the Plaquenil at this time unless she has an intense flareup. This have reviewed verbally with Dr. Pratt previously. I answered all of her questions. She was advised to return to the wound healing center in 1 week. To call sooner if she has any questions or concerns or any evidence of infection development. Note: [employer] speech recognition carbon capture power plant manager software was used to create portions of this document. Sound-alike and misspelled words, as well as other carbon capture power plant manager errors may be contained in the documentation.
[2020-10-07 14:43] VITALS: BP 120/75; PULSE 96; RESP 18; TEMP 36.2; BMI 39.5
--- NOTE | 2020-10-07 15:06 | PN.PCM_ITS ---
(1) Ulcer of left foot with fat layer exposed Status: Chronic Code(s): L97.522 - Non-pressure chronic ulcer of other part of left foot with fat layer exposed (2) Colonization status Status: Suspected Code(s): Z22.9 - Carrier of infectious disease, unspecified (3) Lupus (systemic lupus erythematosus) Status: Chronic Qualifiers: Code(s): M32.9 - Systemic lupus erythematosus, unspecified (4) Calcaneal gait Status: Chronic Code(s): R26.89 - Other abnormalities of gait and mobility Comment: left (5) Delayed wound healing Status: Chronic Code(s): T14.8XXD - Other injury of unspecified body region, subsequent encounter Type of Wound Date of Service: 10/07/20 Chief Complaint: Left heel ulcer History of Wound: This pleasant 55-year-old female with significant past medical history of lupus, history of panic attack, depression, history of delayed healing, hyperlipidemia, irritable bowel syndrome, memory loss, restless leg syndrome, and obstructive sleep apnea is here for follow-up of left heel ulcer. She denies fever, chill, nausea, vomiting. Her left foot pain is increased and she has increased drainage as well. She has discontinued her lupus medication as advised (managed by rheumatology). She is amendable to proceed with a total contact cast today. She has completed a course of doxycycline and denies systemic illness. She has a new wound to the medial aspect of her foot and denies being aware of any cast rubbing. She denies walking in the cast without the cast boot. Progress of Wound: New medial foot ulcers. Heel ulcer improving - Physical Exam Vital Signs Temp Pulse Resp BP 97.1 F L 96 18 120/75 10/07/20 14:43 10/07/20 14:43 10/07/20 14:43 10/07/20 14:43 General: Alert, Oriented x3, Cooperative, No apparent distress Extremities: No cyanosis, Capillary Refill Less than 3 Seconds, No Calf Tenderness, Diminished Peripheral Pulses, Edema Skin: Ulcer/ Wound - No purulence, erythema, string, odor, infection. New skin discontinuity x2 oval shaped regions to the medial foot. Adjacent skin is hairless and atrophic. The new ulcer bed are fibrous and granular. There is reduced depth to the plantar heel ulcer Wound Measurements and Assessment WC - Nurse 1 - General Ulcer Measurement Start: 12/09/20 10:39 Freq: Status: Active Protocol: Activity Type Activity Date Activity User E-Sign Co-Sign Detail Recorded Client Recorded Date Recorded By Document 10/07/20 14:43 DL [id number] 10/07/20 14:49 DL 10/07/20 14:43 Wound Center Nurse 1 [Ulcer Assessment] #6 L Med Ankle Cluster -Current Size (cm) - Length 0.8 -Current Size (cm) - Width 1.4 -Current Size (cm) - Depth 0.2 -Total Square Cm 1.12 -Photo Taken Yes -Exudate Amt None Present -Wound Margin Distinct, Outline Attached -Granulation Amt Medium (34-66%) -Granulation Quality Pale,[place] -Necrosis Amt Small (1-33%) -Necrotic Tissue Type Adherent Slough -Structure Exposed N/A -Texture (Cecelia-wound Skin Appearance) Excoriation -Moisture (Cecelia-wound Skin Appearance No Abnormality ) -Color (Cecelia-wound Skin Appearance) Erythema,Rubor -Temperature (Cecelia-wound Skin No Abnormality Appearance) (Pt Warm) -Tenderness on Palpation (Cecelia-wound No Skin Appearance) -Ulcer Cleansing Wound Cleanser -Foul Odor after Cleansing No -Anesthetic Used 4% Lidocaine Solution #1 Left Heel- Plantar -Current Size (cm) - Length 0.9 -Current Size (cm) - Width 1.2 -Current Size (cm) - Depth 0.3 -Total Square Cm 1.08 -Photo Taken No -Exudate Amt Small -Exudate Type Serosanguineous -Wound Margin Distinct, Outline Attached -Granulation Amt Medium (34-66%) -Necrosis Amt Medium (34-66%) -Necrotic Tissue Type Adherent Slough -Structure Exposed N/A -Texture (Cecelia-wound Skin Appearance) Scarring -Moisture (Cecelia-wound Skin Appearance Dry/Scaly ) -Color (Cecelia-wound Skin Appearance) No Abnormality, Rubor -Temperature (Cecelia-wound Skin No Abnormality Appearance) (Pt Warm) -Tenderness on Palpation (Cecelia-wound No Skin Appearance) -Ulcer Cleansing Wound Cleanser -Foul Odor after Cleansing No -Anesthetic Used 4% Lidocaine Solution WC - Nurse 2 - General Ulcer CM Notes Start: 09/16/20 10:39 Freq: Status: Active Protocol: Activity Type Activity Date Activity User E-Sign Co-Sign Detail Recorded Client Recorded Date Recorded By Document 10/07/20 14:55 STEPHANIE [id number] 10/07/20 15:02 STEPHANIE 10/07/20 14:55 Wound Center Nurse 2 [Procedure/Treatment] #6 L Med Ankle Cluster -Time 14:55 -Correct Patient Yes -Correct Side, Site, Position Yes -Correct Procedure Yes -Procedure Performed Yes -Type of Procedure Debridement -Clinical Debridement Subcutaneous -Tissue Removed Subcutaneous -Post Debridement (cm) - Length 0.8 -Post Debridement (cm) - Width 1.5 -Post Debridement (cm) - Depth 0.2 -Total Square (Post) (cm) 1.20 -Area of Debridement (cm) - Length 0.8 -Area of Debridement (cm) - Width 1.5 -Total Square (Area) (cm) 1.20 -Tunneling No -Undermining/Tunneling No -Circular Undermining No -Wound/Ulcer Outcome Not Healed -Ulcer Cleansing Rinsed/ Irrigated with Saline -Foul Odor after Cleansing No -Bioengineered Tissue No -Bleeding Controlled with Pressure -Offloading Yes -Type of Offloading Total Contact Cast (TCC) - Left ($) -Treatment Response Procedure Tolerated Well -Debridement - Subq, 1st 20sq cm Yes #1 Left Heel- Plantar -Time 14:55 -Correct Patient Yes -Correct Side, Site, Position Yes -Correct Procedure Yes -Procedure Performed Yes -Type of Procedure Debridement -Clinical Debridement Subcutaneous -Tissue Removed Subcutaneous -Post Debridement (cm) - Length 1 -Post Debridement (cm) - Width 1.2 -Post Debridement (cm) - Depth 0.3 -Total Square (Post) (cm) 1.2 -Area of Debridement (cm) - Length 1 -Area of Debridement (cm) - Width 1.2 -Total Square (Area) (cm) 1.2 -Tunneling No -Undermining/Tunneling No -Circular Undermining No -Wound/Ulcer Outcome Not Healed -Ulcer Cleansing Rinsed/ Irrigated with Saline -Foul Odor after Cleansing No -Bioengineered Tissue No -Bleeding Controlled with Pressure -Offloading No -Debridement - Subq, 1st 20sq cm No [See Physician Procedure note for Specifics] Pain Scale: 0-10 Numeric [Pain] -Is Patient Pain Free? Yes Musculoskeletal: No Tenderness to Palpation of Joints or Extremities, Muscle Wasting, - - Calcaneus gait Neurological: - - Lack of full normal epicritic sensation consistent with neuropathy Psych/Mental Status: Normal Affect, Appropriate Debridement Note Post-Debridement Measurements/Treatment WC - Nurse 2 - General Ulcer CM Notes Start: 09/16/20 10:39 Freq: Status: Active Protocol: Activity Type Activity Date Activity User E-Sign Co-Sign Detail Recorded Client Recorded Date Recorded By Document 09/16/20 11:09 [id number] 09/16/20 11:16 Document 09/23/20 15:24 [id number] 09/23/20 15:31 Document 09/30/20 15:16 [id number] 09/30/20 15:18 Document 10/07/20 14:55 [id number] 10/07/20 15:02 09/16/20 09/23/20 09/30/20 11:09 15:24 15:16 Wound Center Nurse 2 #6 L Med Ankle Cluster -Time -Correct Patient -Correct Side, Site, Position -Correct Procedure -Procedure Performed -Type of Procedure -Clinical Debridement -Tissue Removed -Post Debridement (cm) - Length -Post Debridement (cm) - Width -Post Debridement (cm) - Depth -Total Square (Post) (cm) -Area of Debridement (cm) - Length -Area of Debridement (cm) - Width -Total Square (Area) (cm) -Tunneling -Undermining/Tunneling -Circular Undermining -Wound/Ulcer Outcome -Ulcer Cleansing -Foul Odor after Cleansing -Bioengineered Tissue -Bleeding Controlled with -Offloading -Type of Offloading -Treatment Response -Debridement - Subq, 1st 20sq cm #5- L GREAT TOE -Time 11:14 -Correct Patient Yes No -Correct Side, Site, Position Yes No -Correct Procedure Yes No -Procedure Performed Yes No -Type of Procedure Debridement -Clinical Debridement Subcutaneous -Tissue Removed Subcutaneous -Post Debridement (cm) - Length 0.8 0 -Post Debridement (cm) - Width 0.2 0 -Post Debridement (cm) - Depth 0.1 0 -Total Square (Post) (cm) 0.16 0 -Area of Debridement (cm) - Length 0.8 0 -Area of Debridement (cm) - Width 0.2 0 -Total Square (Area) (cm) 0.16 0 -Tunneling No -Undermining/Tunneling No -Circular Undermining No -Wound/Ulcer Outcome Not Healed Healed- Epithelialized -Ulcer Cleansing Rinsed/ Irrigated with Saline -Foul Odor after Cleansing No -Bioengineered Tissue No -Bleeding Controlled with Pressure -Offloading Yes -Type of Offloading Camwalker -Treatment Response Procedure Tolerated Well -Debridement - Subq, 1st 20sq cm No #4- L LAT HEEL -Correct Patient No -Correct Side, Site, Position No -Correct Procedure No -Procedure Performed No -Post Debridement (cm) - Length 0 -Post Debridement (cm) - Width 0 -Post Debridement (cm) - Depth 0 -Total Square (Post) (cm) 0 -Area of Debridement (cm) - Length 0 -Area of Debridement (cm) - Width 0 -Total Square (Area) (cm) 0 -Wound/Ulcer Outcome Healed- Epithelialized #1 Left Heel- Plantar -Time 15:28 15:17 -Correct Patient Yes Yes Yes -Correct Side, Site, Position Yes Yes Yes -Correct Procedure Yes Yes Yes -Procedure Performed Yes Yes Yes -Type of Procedure Debridement Debridement Debridement -Clinical Debridement Subcutaneous Subcutaneous Subcutaneous -Tissue Removed Subcutaneous Subcutaneous Subcutaneous -Post Debridement (cm) - Length 0.6 1.4 1.3 -Post Debridement (cm) - Width 1.8 1.4 1 -Post Debridement (cm) - Depth 0.5 0.3 0.4 -Total Square (Post) (cm) 1.08 1.96 1.3 -Area of Debridement (cm) - Length 0.6 1.4 1.3 -Area of Debridement (cm) - Width 1.8 1.4 1.0 -Total Square (Area) (cm) 1.08 1.96 1.30 -Tunneling No No No -Undermining/Tunneling No No No -Circular Undermining No No No -Wound/Ulcer Outcome Not Healed Not Healed Not Healed -Ulcer Cleansing Rinsed/ Rinsed/ Rinsed/ Irrigated with Irrigated with Irrigated with Saline Saline Saline -Foul Odor after Cleansing No No No -Bioengineered Tissue No No No -Bleeding Controlled with Pressure Pressure Pressure -Offloading Yes Yes Yes -Type of Offloading Camwalker Total Contact Total Contact Cast (TCC) - Cast (TCC) - Left ($) Left ($) -Treatment Response Procedure Procedure Tolerated Well Tolerated Well -Debridement - Subq, 1st 20sq cm Yes Yes Yes Pain Scale: 0-10 Numeric Is Patient Pain Free? Yes Yes Yes 10/07/20 14:55 Wound Center Nurse 2 #6 L Med Ankle Cluster -Time 14:55 -Correct Patient Yes -Correct Side, Site, Position Yes -Correct Procedure Yes -Procedure Performed Yes -Type of Procedure Debridement -Clinical Debridement Subcutaneous -Tissue Removed Subcutaneous -Post Debridement (cm) - Length 0.8 -Post Debridement (cm) - Width 1.5 -Post Debridement (cm) - Depth 0.2 -Total Square (Post) (cm) 1.20 -Area of Debridement (cm) - Length 0.8 -Area of Debridement (cm) - Width 1.5 -Total Square (Area) (cm) 1.20 -Tunneling No -Undermining/Tunneling No -Circular Undermining No -Wound/Ulcer Outcome Not Healed -Ulcer Cleansing Rinsed/ Irrigated with Saline -Foul Odor after Cleansing No -Bioengineered Tissue No -Bleeding Controlled with Pressure -Offloading Yes -Type of Offloading Total Contact Cast (TCC) - Left ($) -Treatment Response Procedure Tolerated Well -Debridement - Subq, 1st 20sq cm Yes #5- L GREAT TOE -Time -Correct Patient -Correct Side, Site, Position -Correct Procedure -Procedure Performed -Type of Procedure -Clinical Debridement -Tissue Removed -Post Debridement (cm) - Length -Post Debridement (cm) - Width -Post Debridement (cm) - Depth -Total Square (Post) (cm) -Area of Debridement (cm) - Length -Area of Debridement (cm) - Width -Total Square (Area) (cm) -Tunneling -Undermining/Tunneling -Circular Undermining -Wound/Ulcer Outcome -Ulcer Cleansing -Foul Odor after Cleansing -Bioengineered Tissue -Bleeding Controlled with -Offloading -Type of Offloading -Treatment Response -Debridement - Subq, 1st 20sq cm #4- L LAT HEEL -Correct Patient -Correct Side, Site, Position -Correct Procedure -Procedure Performed -Post Debridement (cm) - Length -Post Debridement (cm) - Width -Post Debridement (cm) - Depth -Total Square (Post) (cm) -Area of Debridement (cm) - Length -Area of Debridement (cm) - Width -Total Square (Area) (cm) -Wound/Ulcer Outcome #1 Left Heel- Plantar -Time 14:55 -Correct Patient Yes -Correct Side, Site, Position Yes -Correct Procedure Yes -Procedure Performed Yes -Type of Procedure Debridement -Clinical Debridement Subcutaneous -Tissue Removed Subcutaneous -Post Debridement (cm) - Length 1 -Post Debridement (cm) - Width 1.2 -Post Debridement (cm) - Depth 0.3 -Total Square (Post) (cm) 1.2 -Area of Debridement (cm) - Length 1 -Area of Debridement (cm) - Width 1.2 -Total Square (Area) (cm) 1.2 -Tunneling No -Undermining/Tunneling No -Circular Undermining No -Wound/Ulcer Outcome Not Healed -Ulcer Cleansing Rinsed/ Irrigated with Saline -Foul Odor after Cleansing No -Bioengineered Tissue No -Bleeding Controlled with Pressure -Offloading No -Type of Offloading -Treatment Response -Debridement - Subq, 1st 20sq cm No Pain Scale: 0-10 Numeric Is Patient Pain Free? Yes - Nurse 3 - General Ulcer D/C NN Start: 09/16/20 10:39 Freq: Status: Active Protocol: Activity Type Activity Date Activity User E-Sign Co-Sign Detail Recorded Client Recorded Date Recorded By Document 09/16/20 11:20 NE [id number] 09/16/20 11:20 NE Document 09/23/20 15:47 [facility] [id number] 09/23/20 15:48 [facility] Document 09/30/20 15:24 [facility] [id number] 09/30/20 15:26 [facility] 09/16/20 09/23/20 09/30/20 11:20 15:47 15:24 Wound Care Nurse 3 #5- L GREAT TOE -Ulcer Cleansing Rinsed/ Irrigated with Saline -Primary Dressing Covered/Secured with Dry Gauze, Secured with Tape #1 Left Heel- Plantar -Ulcer Cleansing Rinsed/ Rinsed/ Irrigated with Irrigated with Saline Saline -Foul Odor after Cleansing No No -Primary Dressing Applied Aquacel AG 4x4 Aquacel AG 2x2, Other -Other Dressing TCC UNDERCAST APPLIED PER D [employer] QUALITY ASSURANCE CLERK -Primary Dressing Covered/Secured with Other -Other Covering tcc -Aquacel AG 4x4 1 -Aquacel AG 2x2 1 Treatment Response Procedure Procedure Tolerated Well Tolerated Well Pain Scale: 0-10 Numeric Is Patient Pain Free? Yes Yes WC - Visit Discharge Discharge Condition Stable Stable Stable Ambulatory Status Ambulatory Ambulatory, Ambulatory Walker Transportation Private Auto Private Auto Private Auto Accompanied by knee walker Medication Reconcilliation completed & No provided to patient/care provider Clinical Summary of Care Provided Yes Notes: orders Wound debrided: plantar heel, medial foot Laterality: Left Type of Debridement: Excisional debridement Anesthesia Used: 5% Lidocaine Gel Depth: in the subcutaneous layer Percentage of wound debrided: 100 Instrument Used: #15 blade Tissue Removed: fibrous, devitalized subcutaneous, biofilm, slough Severity: Fat Layer Exposed Amount of bleeding with debridement: Mild Bleeding Controlled with: Pressure Patient tolerated procedure well Assessment/Plan Active Problems Lupus (systemic lupus erythematosus) (Chronic) Ulcer of left foot with fat layer exposed (Chronic) Calcaneal gait (Chronic) left Delayed wound healing (Chronic) Assessment: Left heel ulcer, fat layer exposed. Left medial foot ulcers, fat layer exposed. Contamination MRSA- treated with oral antibiotics?resolved. Lupus. Lower extremity edema. Left calcaneus gait. MRSA infection with cellulitis, history Plan: I reviewed and discussed her case. Subcutaneous excisional debridement was performed as noted in the clinical panel. She was reassured that there are no local signs of infection today. She completed a course of doxycycline with resolution of local signs of infection and no systemic infection. She completed a course of epifix and has responded well. The cecelia-ulcer inflammation has resolved. Verbal consent was obtained for total contact cast application after aquacel ag was applied. This was applied according to standard protocol in neutral position in a well padded manner. Care was taken to apply a horseshoe offloading pad around the new medial foot ulcer site. She tolerated this well. To maintain strict nonweightbearing status with the knee roller. She was advised to maintain a balanced whole food diet with adequate protein and nutrients to optimize healing. A prescription for Yosvany was provided previously and she was advised on proper use. I offered her a manager utilization referral as well and she canceled this appointment. She is trying to reschedule. She understands her systemic inflammatory disease of lupus may also be contributing to delayed healing. She will avoid antirheumatic medications at this time. She was advised to avoid prednisone use and will also hold the Plaquenil at this time unless she has an intense flareup. This have reviewed verbally with Dr. Pratt previously. I answered all of her questions. She was advised to return to the wound healing center in 1 week. To call sooner if she has any questions or concerns or any evidence of infection development. Note: [employer] speech recognition international account manager software was used to create portions of this document. Sound-alike and misspelled words, as well as other international account manager errors may be contained in the documentation.
--- NOTE | 2020-11-16 12:17 | WC ---
09/23/20 Left Hallux Healed
== END 2020-10-08 23:59 ==
LOC: WC 14:30
PROVIDERS: PCP Family Medicine; Referring Provider Podiatrist Foot & Ankle Surgery; Visit Provider Podiatrist
DX: L97.422 Non-pressure chronic ulcer of left heel and midfoot with fat layer exposed (principal); R26.89 Other abnormalities of gait and mobility; M32.9 Systemic lupus erythematosus, unspecified; L60.0 Ingrowing nail; Z86.14 Personal history of Methicillin resistant Staphylococcus aureus infection; L03.116 Cellulitis of left lower limb; G25.81 Restless legs syndrome; G47.33 Obstructive sleep apnea (adult) (pediatric); K58.9 Irritable bowel syndrome, unspecified; E78.5 Hyperlipidemia, unspecified; R60.0 Localized edema
CPT/HCPCS: 11042; 29445; 87070; 87075; 87077; 87186; 87205

== ENCOUNTER → 2020-11-04 13:29 | Outpatient (CLI) | payer MEDICARE, BC, SELFPAY ==
[2020-10-28 14:07] VITALS: BMI 39.5
[2020-11-04 15:21] LABS: Absolute Lymphocyte Count 3.07 X10^3/uL (0.83-4.51); Absolute Neutrophil Count 6.2 X10^3/uL (2.0-7.7); Basophil# 0.06 X10^3/uL; Basophil% 0.6 % (0-1); Eosinophil# 0.27 X10^3/uL; Eosinophils% 2.6 % (0-5); Hemoglobin 11.7 g/dL (12.0-15.0); Lymphocyte # 3.07 X10^3/ul (4.0); Lymphocyte % 29.5 % (19-41); Mean Corp Hgb Conc 31.6 g/dL (32-36); Mean Corpuscular Hgb 28.3 pg (27.0-32.0); Mean Corpuscular Volume 89.6 fL (81-99); Mean Platelet Vol. 9.4 fl (6.2-12.0); Monocyte% 7.7 % (0-10); NRBC Flagged by Analyzer 0 % (0-5); Neutrophil # 6.17 X10^3/uL (2.7-7.7); Neutrophil % 59.1 % (47-70); Platelet Count 309 K/mm3 (150-450); RBC Distribution Width CV 13.3 % (11.6-14.6); RBC Distribution Width SD 43.8 fl (35.1-43.9); Red Blood Count 4.13 M/mm3 (4.2-5.4); White Blood Count 10.4 K/mm3 (4.4-11.0)
[2020-11-04 15:36] LABS: ALB/GLOB Ratio 0.8 RATIO (0.9-2.4); AST(SGOT) 9 U/L (15-37); Alanine Aminotransfer ALT/SGPT 17 U/L (13-56); Albumin, Serum 3.3 g/dL (3.2-5.0); Alkaline Phosphatase 104 U/L (45-117); Anion Gap 4 (5-15); BUN 9 mg/dL (7-18); BUN/Creat Ratio 13.9 RATIO (10-20); Calcium,Total 9.2 mg/dL (8.5-10.1); Chloride 104 mmol/L (98-107); Creatinine, Serum 0.65 mg/dL (0.55-1.02); EST Glomerular Filtration Rate 101 mL/min (>60); Est Glom Filt Rate - Afr Amer 122 mL/min (>60); Globulin 3.9 g/dL (2.2-4.2); Glucose 92 mg/dL (74-106); Potassium 3.6 mmol/L (3.5-5.1); Protein, Total 7.2 g/dL (6.4-8.2); Sodium Level 139 mmol/L (136-145)
== END ==
LOC: MTLAB 13:32
PROVIDERS: PCP Family Medicine; Referring Provider Internal Medicine Rheumatology; Visit Provider Internal Medicine Rheumatology
DX: M06.4 Inflammatory polyarthropathy (principal); M35.1 Other overlap syndromes; M79.7 Fibromyalgia; M17.0 Bilateral primary osteoarthritis of knee; K58.9 Irritable bowel syndrome, unspecified; F41.9 Anxiety disorder, unspecified; F32.89 Other specified depressive episodes; G47.33 Obstructive sleep apnea (adult) (pediatric); G62.9 Polyneuropathy, unspecified; L97.522 Non-pressure chronic ulcer of other part of left foot with fat layer exposed
CPT/HCPCS: 11042; 29445; 36415; 80053; 85025

== ENCOUNTER 2020-11-04 14:00 | Outpatient (RCR) | payer MEDICARE, BC, SELFPAY ==
[2020-10-09 00:15] VITALS: BP 120/75; PULSE 96; RESP 18; TEMP 36.2
[2020-10-14 10:23] VITALS: BP 133/67; PULSE 91; TEMP 36.6; BMI 39.5
--- NOTE | 2020-10-14 13:45 | PCM.WC.PN ---
(1) Lupus (systemic lupus erythematosus) Status: Chronic Qualifiers: Code(s): M32.9 - Systemic lupus erythematosus, unspecified (2) Ulcer of left foot with fat layer exposed Status: Chronic Code(s): L97.522 - Non-pressure chronic ulcer of other part of left foot with fat layer exposed (3) Calcaneal gait Status: Chronic Code(s): R26.89 - Other abnormalities of gait and mobility Comment: left (4) Delayed wound healing Status: Chronic Code(s): T14.8XXD - Other injury of unspecified body region, subsequent encounter (5) Malnutrition Status: Chronic Code(s): E46 - Unspecified protein-calorie malnutrition (6) Localized edema Status: Chronic Code(s): R60.0 - Localized edema Type of Wound Date of Service: 10/14/20 Chief Complaint: Left heel ulcer History of Wound: This pleasant 55-year-old female with significant past medical history of lupus, history of panic attack, depression, history of delayed healing, hyperlipidemia, irritable bowel syndrome, memory loss, restless leg syndrome, and obstructive sleep apnea is here for follow-up of left heel ulcer. She denies fever, chill, nausea, vomiting. Her left foot pain has resolved and she kept her total contact cast clean and intact this past week. She has discontinued her lupus medication as advised (managed by rheumatology). She is amendable to proceed with a total contact cast again today. We discussed surgical indications and options for her condition. Progress of Wound: Healed medial foot ulcers. Heel ulcer improving - Physical Exam Vital Signs Temp Pulse Resp BP 97.8 F 91 18 133/67 H 10/14/20 10:23 10/14/20 10:23 10/09/20 00:15 10/14/20 10:23 General: Alert, Oriented x3, Cooperative, No apparent distress Extremities: No cyanosis, Capillary Refill Less than 3 Seconds, No Calf Tenderness, Diminished Peripheral Pulses, Edema Skin: Ulcer/ Wound - No purulence, erythema, string, odor, infection. Depth reduction noted the plantar heel ulcer. The medial foot newer ulcers are fully epithelialized and healed today. Her skin is atrophic. Wound Measurements and Assessment WC - Nurse 1 - General Ulcer Measurement Start: 10/14/20 10:23 Freq: Status: Active Protocol: Activity Type Activity Date Activity User E-Sign Co-Sign Detail Recorded Client Recorded Date Recorded By Document 10/14/20 10:23 KR [id number] 10/14/20 10:32 KR 10/14/20 10:23 Wound Center Nurse 1 [Ulcer Assessment] #6 L Med Ankle Cluster -Current Size (cm) - Length 0.1 -Current Size (cm) - Width 0.1 -Current Size (cm) - Depth 0.1 -Total Square Cm 0.01 -Exudate Amt None Present -Wound Margin Distinct, Outline Attached -Necrosis Amt None Present (0 %) -Texture (Mounika-wound Skin Appearance) Assessed, Scarring -Color (Mounika-wound Skin Appearance) No Abnormality, Assessed -Temperature (Mounika-wound Skin No Abnormality Appearance) (Pt Warm) -Tenderness on Palpation (Mounika-wound No Skin Appearance) -Ulcer Cleansing soap and water -Foul Odor after Cleansing No #1 Left Heel- Plantar -Current Size (cm) - Length 0.9 -Current Size (cm) - Width 1.2 -Current Size (cm) - Depth 0.3 -Total Square Cm 1.08 -Exudate Amt Small -Exudate Type Serosanguineous -Wound Margin Distinct, Outline Attached -Granulation Amt Small (1-33%) -Granulation Quality [place] -Necrosis Amt Small (1-33%) -Necrotic Tissue Type Adherent Slough -Texture (Mounika-wound Skin Appearance) Assessed, Scarring -Moisture (Mounika-wound Skin Appearance No Abnormality, ) Assessed -Color (Mounika-wound Skin Appearance) No Abnormality, Assessed -Temperature (Mounika-wound Skin No Abnormality Appearance) (Pt Warm) -Tenderness on Palpation (Mounika-wound No Skin Appearance) -Ulcer Cleansing soap and water -Foul Odor after Cleansing No -Anesthetic Used 4% Lidocaine Solution WC - Nurse 2 - General Ulcer CM Notes Start: 10/14/20 10:23 Freq: Status: Active Protocol: Activity Type Activity Date Activity User E-Sign Co-Sign Detail Recorded Client Recorded Date Recorded By Document 10/14/20 12:46 PL [id number] 10/14/20 12:47 PL 10/14/20 12:46 Wound Center Nurse 2 [Procedure/Treatment] #6 L Med Ankle Cluster -Time 10:46 -Correct Patient Yes -Correct Side, Site, Position Yes -Correct Procedure Yes -Procedure Performed Yes -Type of Procedure Debridement -Clinical Debridement Subcutaneous -Tissue Removed Subcutaneous -Post Debridement (cm) - Length 0.9 -Post Debridement (cm) - Width 1.2 -Post Debridement (cm) - Depth 0.3 -Total Square (Post) (cm) 1.08 -Area of Debridement (cm) - Length 0.9 -Area of Debridement (cm) - Width 1.2 -Total Square (Area) (cm) 1.08 -Tunneling No -Undermining/Tunneling No -Circular Undermining No -Wound/Ulcer Outcome Not Healed -Ulcer Cleansing Rinsed/ Irrigated with Saline -Foul Odor after Cleansing No -Bioengineered Tissue No -Debridement - Subq, 1st 20sq cm Yes #1 Left Heel- Plantar -Procedure Performed No -Wound/Ulcer Outcome Healed- Epithelialized [See Physician Procedure note for Specifics] - Nurse 3 - General Ulcer D/C NN Start: 10/14/20 10:23 Freq: Status: Active Protocol: Activity Type Activity Date Activity User E-Sign Co-Sign Detail Recorded Client Recorded Date Recorded By Document 10/14/20 10:54 [place] [id number] 10/14/20 10:56 [place] 10/14/20 10:54 Wound Care Nurse 3 [Wound Dressing] #6 L Med Ankle Cluster -Other Dressing TCC, own aquacel AG -Primary Dressing Covered/Secured Dry Gauze, with Secured with Tape - Visit Discharge [Visit Discharge Information] -Discharge Condition Stable -Ambulatory Status Ambulatory -Transportation Private Auto -Medication Reconcilliation completed No & provided to patient/care provider -Clinical Summary of Care Provided Yes -Notes: TCC cast Musculoskeletal: No Tenderness to Palpation of Joints or Extremities, Muscle Wasting Neurological: Sensory exam intact to light touch and pain Psych/Mental Status: Normal Affect, Appropriate Debridement Note Post-Debridement Measurements/Treatment - Nurse 2 - General Ulcer CM Notes Start: 10/14/20 10:23 Freq: Status: Active Protocol: Activity Type Activity Date Activity User E-Sign Co-Sign Detail Recorded Client Recorded Date Recorded By Document 10/14/20 12:46 PL [id number] 10/14/20 12:47 PL 10/14/20 12:46 Wound Center Nurse 2 #6 L Med Ankle Cluster -Time 10:46 -Correct Patient Yes -Correct Side, Site, Position Yes -Correct Procedure Yes -Procedure Performed Yes -Type of Procedure Debridement -Clinical Debridement Subcutaneous -Tissue Removed Subcutaneous -Post Debridement (cm) - Length 0.9 -Post Debridement (cm) - Width 1.2 -Post Debridement (cm) - Depth 0.3 -Total Square (Post) (cm) 1.08 -Area of Debridement (cm) - Length 0.9 -Area of Debridement (cm) - Width 1.2 -Total Square (Area) (cm) 1.08 -Tunneling No -Undermining/Tunneling No -Circular Undermining No -Wound/Ulcer Outcome Not Healed -Ulcer Cleansing Rinsed/ Irrigated with Saline -Foul Odor after Cleansing No -Bioengineered Tissue No -Debridement - Subq, 1st 20sq cm Yes #1 Left Heel- Plantar -Procedure Performed No -Wound/Ulcer Outcome Healed- Epithelialized - Nurse 3 - General Ulcer D/C NN Start: 10/14/20 10:23 Freq: Status: Active Protocol: Activity Type Activity Date Activity User E-Sign Co-Sign Detail Recorded Client Recorded Date Recorded By Document 10/14/20 10:54 [place] [id number] 10/14/20 10:56 [place] 10/14/20 10:54 Wound Care Nurse 3 #6 L Med Ankle Cluster -Other Dressing TCC, own aquacel AG -Primary Dressing Covered/Secured with Dry Gauze, Secured with Tape WC - Visit Discharge Discharge Condition Stable Ambulatory Status Ambulatory Transportation Private Auto Medication Reconcilliation completed & No provided to patient/care provider Clinical Summary of Care Provided Yes Notes: TCC cast Wound debrided: plantar heel Laterality: Left Type of Debridement: Excisional debridement Anesthesia Used: 5% Lidocaine Gel Depth: in the subcutaneous layer Percentage of wound debrided: 100 Instrument Used: #15 blade Tissue Removed: fibrous, devitalized subcutaneous, biofilm, slough Severity: Fat Layer Exposed Amount of bleeding with debridement: Mild Bleeding Controlled with: Pressure Patient tolerated procedure well Assessment/Plan Active Problems Lupus (systemic lupus erythematosus) (Chronic) Ulcer of left foot with fat layer exposed (Chronic) Calcaneal gait (Chronic) left Delayed wound healing (Chronic) Malnutrition (Chronic) Assessment: Left heel ulcer, fat layer exposed. Left medial foot ulcers, healed. Contamination MRSA- treated with oral antibiotics?resolved. Lupus. Lower extremity edema. Left calcaneus gait. Delayed healing Plan: I reviewed and discussed her case. Subcutaneous excisional debridement was performed as noted in the clinical panel. The medial foot ulcers have healed. She was reassured that there are no local signs of infection today. She completed a course of doxycycline with resolution of local signs of infection and no systemic infection. She completed a course of epifix and has responded well. The mounika-ulcer inflammation has resolved. Verbal consent was obtained for total contact cast application after aquacel ag was applied. This was applied according to standard protocol in neutral position in a well padded manner. Care was taken to apply a horseshoe offloading pad around the recently healed medial foot ulcer site. She tolerated this well. To maintain strict nonweightbearing status with the knee roller. She was advised to maintain a balanced whole food diet with adequate protein and nutrients to optimize healing. A prescription for Yosvany was provided previously and she was advised on proper use. I offered her a dedicated local truck driver referral as well and she canceled this appointment. She is trying to reschedule. She understands her systemic inflammatory disease of lupus may also be contributing to delayed healing. She will avoid antirheumatic medications at this time. She was advised to avoid prednisone use and will also hold the Plaquenil at this time unless she has an intense flareup. This have reviewed verbally with Dr. Pratt previously. I answered all of her questions. She has a calcaneus gait with prior surgical intervention including a tendon transfer which is compromised with a fall in the early postoperative setting. We discussed options to surgically alleviate her calcaneus gait including retightening the Achilles tendon or other posterior leg muscles. The exact procedure will need to be determined after updated MRI evaluation. Another option includes an ankle arthrodesis which I am not particularly recommending at this time given her other delays in healing and lupus status I be concerned about bone healing potential. The indications, benefits, risk, healing time and management were briefly reviewed today. She has been continuing to fail basic and advanced wound care options and I recommend surgical consideration at this time. She would like to think about this further prior to proceeding with an updated MRI. She was advised to return to the wound healing center in 1 week. To call sooner if she has any questions or concerns or any evidence of infection development. Note: [employer] speech recognition service center manager software was used to create portions of this document. Sound-alike and misspelled words, as well as other service center manager errors may be contained in the documentation. The problems addressed require a moderate decision making level which includes one or more chronic illnesses (w/ exacerbation, progression, or side effects), two or more stable chronic illnesses, one undiagnosed new problem w/ uncertain prognosis, one acute illness with systemic symptoms, or one acute complicated injury. The medical decision making level is moderate. There is noted moderate risk of morbidity after considering this treatment plan and diagnostic data. Considerations were given to prescription management, decisions regarding surgical options, or social determinants of health.
[2020-10-21 10:30] VITALS: BP 125/74; PULSE 99; RESP 18; TEMP 36.2; BMI 39.5
--- NOTE | 2020-10-21 12:51 | PCM.WC.PN ---
(1) Lupus (systemic lupus erythematosus) Status: Chronic Qualifiers: Code(s): M32.9 - Systemic lupus erythematosus, unspecified (2) Ulcer of left foot with fat layer exposed Status: Chronic Code(s): L97.522 - Non-pressure chronic ulcer of other part of left foot with fat layer exposed (3) Calcaneal gait Status: Chronic Code(s): R26.89 - Other abnormalities of gait and mobility Comment: left (4) Delayed wound healing Status: Chronic Code(s): T14.8XXD - Other injury of unspecified body region, subsequent encounter (5) Malnutrition Status: Chronic Code(s): E46 - Unspecified protein-calorie malnutrition (6) Localized edema Status: Chronic Code(s): R60.0 - Localized edema Type of Wound Date of Service: 10/21/20 Chief Complaint: Left heel ulcer History of Wound: This pleasant 55-year-old female with significant past medical history of lupus, history of panic attack, depression, history of delayed healing, hyperlipidemia, irritable bowel syndrome, memory loss, restless leg syndrome, and obstructive sleep apnea is here for follow-up of left heel ulcer. She denies fever, chill, nausea, vomiting. Her left foot pain has resolved and she kept her total contact cast clean and intact this past week. She has discontinued her lupus medication as advised (managed by rheumatology). She is amendable to proceed with a total contact cast again today. Progress of Wound: Heel ulcer improving - Physical Exam Vital Signs Temp Pulse Resp BP 97.2 F L 99 18 125/74 H 10/21/20 10:30 10/21/20 10:30 10/21/20 10:30 10/21/20 10:30 General: Alert, Oriented x3, Cooperative, No apparent distress Extremities: No cyanosis, Capillary Refill Less than 3 Seconds, No Calf Tenderness, Diminished Peripheral Pulses, Edema - Decreased Skin: Ulcer/ Wound - No purulence, erythema, streaking, odor, infection. Peripheral epithelialization and depth reduction is noted. Healthy granular base is noted Wound Measurements and Assessment WC - Nurse 1 - General Ulcer Measurement Start: 10/14/20 10:23 Freq: Status: Active Protocol: Activity Type Activity Date Activity User E-Sign Co-Sign Detail Recorded Client Recorded Date Recorded By Document 10/21/20 10:30 DL [id number] 10/21/20 10:32 DL 10/21/20 10:30 Wound Center Nurse 1 [Ulcer Assessment] #6 L Med Ankle Cluster -Current Size (cm) - Length 0.1 -Current Size (cm) - Width 0.1 -Current Size (cm) - Depth 0.1 -Total Square Cm 0.01 -Photo Taken No -Exudate Amt None Present -Wound Margin Flat & Intact -Granulation Amt Large (67-100%) -Granulation Quality [place] -Necrosis Amt Small (1-33%) -Necrotic Tissue Type Adherent Slough -Structure Exposed N/A -Texture (Mounika-wound Skin Appearance) Scarring -Moisture (Mounika-wound Skin Appearance No Abnormality ) -Color (Mounika-wound Skin Appearance) No Abnormality -Temperature (Mounika-wound Skin No Abnormality Appearance) (Pt Warm) -Tenderness on Palpation (Mounika-wound No Skin Appearance) -Ulcer Cleansing Wound Cleanser -Foul Odor after Cleansing No -Anesthetic Used 4% Lidocaine Solution #1 Left Heel- Plantar -Current Size (cm) - Length 0.6 -Current Size (cm) - Width 0.7 -Current Size (cm) - Depth 0.2 -Total Square Cm 0.42 -Photo Taken No -Exudate Amt Small -Exudate Type Serosanguineous -Wound Margin Distinct, Outline Attached -Granulation Amt Small (1-33%) -Granulation Quality [place] -Necrosis Amt Small (1-33%) -Necrotic Tissue Type Adherent Slough -Structure Exposed N/A -Moisture (Mounika-wound Skin Appearance Mac[place] ) -Color (Mounika-wound Skin Appearance) No Abnormality -Temperature (Mounika-wound Skin No Abnormality Appearance) (Pt Warm) -Tenderness on Palpation (Mounika-wound No Skin Appearance) -Ulcer Cleansing Wound Cleanser -Foul Odor after Cleansing No -Anesthetic Used 4% Lidocaine Solution WC - Nurse 2 - General Ulcer CM Notes Start: 10/14/20 10:23 Freq: Status: Active Protocol: Activity Type Activity Date Activity User E-Sign Co-Sign Detail Recorded Client Recorded Date Recorded By Document 10/21/20 10:36 STEPHANIE [id number] 10/21/20 10:39 STEPHANIE 10/21/20 10:36 Wound Center Nurse 2 [Procedure/Treatment] #6 L Med Ankle Cluster -Correct Patient No -Correct Side, Site, Position No -Correct Procedure No -Procedure Performed No -Post Debridement (cm) - Length 0 -Post Debridement (cm) - Width 0 -Post Debridement (cm) - Depth 0 -Total Square (Post) (cm) 0 -Area of Debridement (cm) - Length 0 -Area of Debridement (cm) - Width 0 -Total Square (Area) (cm) 0 -Wound/Ulcer Outcome Healed- Epithelialized #1 Left Heel- Plantar -Time 10:38 -Correct Patient Yes -Correct Side, Site, Position Yes -Correct Procedure Yes -Procedure Performed Yes -Type of Procedure Debridement -Clinical Debridement Subcutaneous -Tissue Removed Subcutaneous -Post Debridement (cm) - Length 0.7 -Post Debridement (cm) - Width 0.7 -Post Debridement (cm) - Depth 0.1 -Total Square (Post) (cm) 0.49 -Area of Debridement (cm) - Length 0.7 -Area of Debridement (cm) - Width 0.7 -Total Square (Area) (cm) 0.49 -Tunneling No -Undermining/Tunneling No -Circular Undermining No -Wound/Ulcer Outcome Not Healed -Ulcer Cleansing Rinsed/ Irrigated with Saline -Foul Odor after Cleansing No -Bioengineered Tissue No -Bleeding Controlled with Pressure -Offloading Yes -Type of Offloading Total Contact Cast (TCC) - Left ($) -Treatment Response Procedure Tolerated Well -Debridement - Subq, 1st 20sq cm Yes [See Physician Procedure note for Specifics] Pain Scale: 0-10 Numeric [Pain] -Is Patient Pain Free? Yes Musculoskeletal: No Tenderness to Palpation of Joints or Extremities, Muscle Wasting Lymphatic: - - Calcaneus gait position Neurological: Sensory exam intact to light touch and pain, - Psych/Mental Status: Normal Affect, Appropriate Debridement Note Post-Debridement Measurements/Treatment WC - Nurse 2 - General Ulcer CM Notes Start: 10/14/20 10:23 Freq: Status: Active Protocol: Activity Type Activity Date Activity User E-Sign Co-Sign Detail Recorded Client Recorded Date Recorded By Document 10/14/20 12:46 PL [id number] 10/14/20 12:47 PL Document 10/21/20 10:36 STEPHANIE [id number] 10/21/20 10:39 STEPHANIE 10/14/20 10/21/20 12:46 10:36 Wound Center Nurse 2 #6 L Med Ankle Cluster -Time 10:46 -Correct Patient Yes No -Correct Side, Site, Position Yes No -Correct Procedure Yes No -Procedure Performed Yes No -Type of Procedure Debridement -Clinical Debridement Subcutaneous -Tissue Removed Subcutaneous -Post Debridement (cm) - Length 0.9 0 -Post Debridement (cm) - Width 1.2 0 -Post Debridement (cm) - Depth 0.3 0 -Total Square (Post) (cm) 1.08 0 -Area of Debridement (cm) - Length 0.9 0 -Area of Debridement (cm) - Width 1.2 0 -Total Square (Area) (cm) 1.08 0 -Tunneling No -Undermining/Tunneling No -Circular Undermining No -Wound/Ulcer Outcome Not Healed Healed- Epithelialized -Ulcer Cleansing Rinsed/ Irrigated with Saline -Foul Odor after Cleansing No -Bioengineered Tissue No -Debridement - Subq, 1st 20sq cm Yes #1 Left Heel- Plantar -Time 10:38 -Correct Patient Yes -Correct Side, Site, Position Yes -Correct Procedure Yes -Procedure Performed No Yes -Type of Procedure Debridement -Clinical Debridement Subcutaneous -Tissue Removed Subcutaneous -Post Debridement (cm) - Length 0.7 -Post Debridement (cm) - Width 0.7 -Post Debridement (cm) - Depth 0.1 -Total Square (Post) (cm) 0.49 -Area of Debridement (cm) - Length 0.7 -Area of Debridement (cm) - Width 0.7 -Total Square (Area) (cm) 0.49 -Tunneling No -Undermining/Tunneling No -Circular Undermining No -Wound/Ulcer Outcome Healed- Not Healed Epithelialized -Ulcer Cleansing Rinsed/ Irrigated with Saline -Foul Odor after Cleansing No -Bioengineered Tissue No -Bleeding Controlled with Pressure -Offloading Yes -Type of Offloading Total Contact Cast (TCC) - Left ($) -Treatment Response Procedure Tolerated Well -Debridement - Subq, 1st 20sq cm Yes Pain Scale: 0-10 Numeric Is Patient Pain Free? Yes WC - Nurse 3 - General Ulcer D/C NN Start: 10/14/20 10:23 Freq: Status: Active Protocol: Activity Type Activity Date Activity User E-Sign Co-Sign Detail Recorded Client Recorded Date Recorded By Document 10/14/20 10:54 [place] [id number] 10/14/20 10:56 [place] 10/14/20 10:54 Wound Care Nurse 3 #6 L Med Ankle Cluster -Other Dressing TCC, own aquacel AG -Primary Dressing Covered/Secured with Dry Gauze, Secured with Tape WC - Visit Discharge Discharge Condition Stable Ambulatory Status Ambulatory Transportation Private Auto Medication Reconcilliation completed & No provided to patient/care provider Clinical Summary of Care Provided Yes Notes: TCC cast Wound debrided: plantar heel Laterality: Left Type of Debridement: Excisional debridement Anesthesia Used: 5% Lidocaine Gel Depth: in the subcutaneous layer Percentage of wound debrided: 100 Instrument Used: #15 blade Tissue Removed: fibrous, devitalized subcutaneous, biofilm, slough Severity: Fat Layer Exposed Amount of bleeding with debridement: Mild Bleeding Controlled with: Pressure Patient tolerated procedure well Assessment/Plan Active Problems Lupus (systemic lupus erythematosus) (Chronic) Ulcer of left foot with fat layer exposed (Chronic) Calcaneal gait (Chronic) left Delayed wound healing (Chronic) Malnutrition (Chronic) Localized edema (Chronic) Assessment: Left heel ulcer, fat layer exposed. Lupus. Lower extremity edema. Left calcaneus gait. Delayed healing Plan: I reviewed and discussed her case. Subcutaneous excisional debridement was performed as noted in the clinical panel. She was reassured that there are no local signs of infection today. She completed a course of epifix and has responded well. The mounika-ulcer inflammation has resolved. Verbal consent was obtained for total contact cast application after aquacel ag was applied. This was applied according to standard protocol in neutral position in a well padded manner. Care was taken to apply a horseshoe offloading pad around the recently healed medial foot ulcer site. She tolerated this well. To maintain strict nonweightbearing status with the knee roller. She was advised to maintain a balanced whole food diet with adequate protein and nutrients to optimize healing. A prescription for Yosvany was provided previously and she was advised on proper use. I offered her a baseball glove stuffer referral as well and she canceled this appointment. She is trying to reschedule. She understands her systemic inflammatory disease of lupus may also be contributing to delayed healing. She will avoid antirheumatic medications at this time. She was advised to avoid prednisone use and will also hold the Plaquenil at this time unless she has an intense flareup. This have reviewed verbally with Dr. Pratt previously. I answered all of her questions. She has a calcaneus gait with prior surgical intervention including a tendon transfer which is compromised with a fall in the early postoperative setting. We discussed options to surgically alleviate her calcaneus gait including retightening the Achilles tendon or other posterior leg muscles. The exact procedure will need to be determined after updated MRI evaluation. The indications, benefits, risk, healing time and management were briefly reviewed today. She defers at this time. She has been continuing to fail basic and advanced wound care options and I recommend surgical consideration at this time. She was advised to return to the wound healing center in 1 week. To call sooner if she has any questions or concerns or any evidence of infection development. Note: [employer] speech recognition office aide software was used to create portions of this document. Sound-alike and misspelled words, as well as other office aide errors may be contained in the documentation. The problems addressed require a moderate decision making level which includes one or more chronic illnesses (w/ exacerbation, progression, or side effects), two or more stable chronic illnesses, one undiagnosed new problem w/ uncertain prognosis, one acute illness with systemic symptoms, or one acute complicated injury. The medical decision making level is moderate. There is noted moderate risk of morbidity after considering this treatment plan and diagnostic data. Considerations were given to prescription management, decisions regarding surgical options, or social determinants of health.
[2020-10-28 14:07] VITALS: BP 124/81; PULSE 95; RESP 18; TEMP 37; BMI 39.5
--- NOTE | 2020-10-28 14:51 | PN.PCM_ITS ---
(1) Ulcer of left foot with fat layer exposed Status: Chronic Code(s): L97.522 - Non-pressure chronic ulcer of other part of left foot with fat layer exposed (2) Lupus (systemic lupus erythematosus) Status: Chronic Qualifiers: Code(s): M32.9 - Systemic lupus erythematosus, unspecified (3) Calcaneal gait Status: Chronic Code(s): R26.89 - Other abnormalities of gait and mobility Comment: left (4) Delayed wound healing Status: Chronic Code(s): T14.8XXD - Other injury of unspecified body region, subsequent encounter (5) Malnutrition Status: Chronic Code(s): E46 - Unspecified protein-calorie malnutrition (6) Localized edema Status: Chronic Code(s): R60.0 - Localized edema Type of Wound Date of Service: 10/28/20 Chief Complaint: Left heel ulcer History of Wound: This pleasant 55-year-old female with significant past medical history of lupus, history of panic attack, depression, history of delayed healing, hyperlipidemia, irritable bowel syndrome, memory loss, restless leg syndrome, and obstructive sleep apnea is here for follow-up of left heel ulcer. She denies fever, chill, nausea, vomiting. Her left foot pain has resolved and she kept her total contact cast clean and intact this past week. She has discontinued her lupus medication as advised (managed by rheumatology). She is amendable to proceed with a total contact cast again today. Progress of Wound: Heel ulcer improving - Physical Exam Vital Signs Temp Pulse Resp BP 98.6 F 95 18 124/81 H 10/28/20 14:07 10/28/20 14:07 10/28/20 14:07 10/28/20 14:07 General: Alert, Oriented x3, Cooperative Extremities: No cyanosis, Capillary Refill Less than 3 Seconds, No Calf Tenderness, Diminished Peripheral Pulses, Edema - Decreased Skin: Ulcer/ Wound - No purulence, erythema, streaking, odor, infection. Peripheral epithelialization and reduced depth is noted. Wound Measurements and Assessment WC - Nurse 1 - General Ulcer Measurement Start: 10/14/20 10:23 Freq: Status: Active Protocol: Activity Type Activity Date Activity User E-Sign Co-Sign Detail Recorded Client Recorded Date Recorded By Document 10/28/20 14:07 DL [id number] 10/28/20 14:18 DL 10/28/20 14:07 Wound Center Nurse 1 [Ulcer Assessment] #1 Left Heel- Plantar -Current Size (cm) - Length 0.5 -Current Size (cm) - Width 0.6 -Current Size (cm) - Depth 0.3 -Total Square Cm 0.30 -Photo Taken No -Exudate Amt Small -Exudate Type Yellow/Green -Wound Margin Thickened -Granulation Amt Small (1-33%) -Granulation Quality [place] -Necrosis Amt Small (1-33%) -Necrotic Tissue Type Adherent Slough -Structure Exposed N/A -Texture (Mounika-wound Skin Appearance) Callus,Scarring -Moisture (Mounika-wound Skin Appearance Dry/Scaly ) -Color (Mounika-wound Skin Appearance) No Abnormality -Temperature (Mounika-wound Skin No Abnormality Appearance) (Pt Warm) -Tenderness on Palpation (Mounika-wound No Skin Appearance) -Ulcer Cleansing Wound Cleanser -Foul Odor after Cleansing No -Anesthetic Used 5% Lidocaine Gel WC - Nurse 2 - General Ulcer CM Notes Start: 10/14/20 10:23 Freq: Status: Active Protocol: Activity Type Activity Date Activity User E-Sign Co-Sign Detail Recorded Client Recorded Date Recorded By Document 10/28/20 14:29 STEPHANIE [id number] 10/28/20 14:31 STEPHANIE 10/28/20 14:29 Wound Center Nurse 2 [Procedure/Treatment] -Time 14:29 -Correct Patient Yes -Correct Side, Site, Position Yes -Correct Procedure Yes -Procedure Performed Yes -Type of Procedure Debridement -Clinical Debridement Subcutaneous -Tissue Removed Subcutaneous -Post Debridement (cm) - Length 0.6 -Post Debridement (cm) - Width 0.6 -Post Debridement (cm) - Depth 0.3 -Total Square (Post) (cm) 0.36 -Area of Debridement (cm) - Length 0.6 -Area of Debridement (cm) - Width 0.6 -Total Square (Area) (cm) 0.36 -Tunneling No -Undermining/Tunneling No -Circular Undermining No -Wound/Ulcer Outcome Not Healed -Ulcer Cleansing Rinsed/ Irrigated with Saline -Foul Odor after Cleansing No -Bioengineered Tissue No -Bleeding Controlled with Pressure -Offloading Yes -Type of Offloading Total Contact Cast (TCC) - Left ($) -Treatment Response Procedure Tolerated Well -Debridement - Subq, 1st 20sq cm Yes [See Physician Procedure note for Specifics] Pain Scale: 0-10 Numeric [Pain] -Is Patient Pain Free? Yes Musculoskeletal: Muscle Wasting, - - Calcaneus gait style left. Compartments remain soft Neurological: - - Normal epicritic sensation is altered Psych/Mental Status: Normal Affect, Appropriate Debridement Note Post-Debridement Measurements/Treatment WC - Nurse 2 - General Ulcer CM Notes Start: 10/14/20 10:23 Freq: Status: Active Protocol: Activity Type Activity Date Activity User E-Sign Co-Sign Detail Recorded Client Recorded Date Recorded By Document 10/14/20 12:46 PL [id number] 10/14/20 12:47 PL Document 10/21/20 10:36 JF [id number] 10/21/20 10:39 JF Document 10/28/20 14:29 JF [id number] 10/28/20 14:31 JF 10/14/20 10/21/20 10/28/20 12:46 10:36 14:29 Wound Center Nurse 2 #6 L Med Ankle Cluster -Time 10:46 -Correct Patient Yes No -Correct Side, Site, Position Yes No -Correct Procedure Yes No -Procedure Performed Yes No -Type of Procedure Debridement -Clinical Debridement Subcutaneous -Tissue Removed Subcutaneous -Post Debridement (cm) - Length 0.9 0 -Post Debridement (cm) - Width 1.2 0 -Post Debridement (cm) - Depth 0.3 0 -Total Square (Post) (cm) 1.08 0 -Area of Debridement (cm) - Length 0.9 0 -Area of Debridement (cm) - Width 1.2 0 -Total Square (Area) (cm) 1.08 0 -Tunneling No -Undermining/Tunneling No -Circular Undermining No -Wound/Ulcer Outcome Not Healed Healed- Epithelialized -Ulcer Cleansing Rinsed/ Irrigated with Saline -Foul Odor after Cleansing No -Bioengineered Tissue No -Debridement - Subq, 1st 20sq cm Yes #1 Left Heel- Plantar -Time 10:38 14:29 -Correct Patient Yes Yes -Correct Side, Site, Position Yes Yes -Correct Procedure Yes Yes -Procedure Performed No Yes Yes -Type of Procedure Debridement Debridement -Clinical Debridement Subcutaneous Subcutaneous -Tissue Removed Subcutaneous Subcutaneous -Post Debridement (cm) - Length 0.7 0.6 -Post Debridement (cm) - Width 0.7 0.6 -Post Debridement (cm) - Depth 0.1 0.3 -Total Square (Post) (cm) 0.49 0.36 -Area of Debridement (cm) - Length 0.7 0.6 -Area of Debridement (cm) - Width 0.7 0.6 -Total Square (Area) (cm) 0.49 0.36 -Tunneling No No -Undermining/Tunneling No No -Circular Undermining No No -Wound/Ulcer Outcome Healed- Not Healed Not Healed Epithelialized -Ulcer Cleansing Rinsed/ Rinsed/ Irrigated with Irrigated with Saline Saline -Foul Odor after Cleansing No No -Bioengineered Tissue No No -Bleeding Controlled with Pressure Pressure -Offloading Yes Yes -Type of Offloading Total Contact Total Contact Total Contact Cast (TCC) - Cast (TCC) - Cast (TCC) - Left ($) Left ($) Left ($) -Treatment Response Procedure Procedure Tolerated Well Tolerated Well -Debridement - Subq, 1st 20sq cm Yes Yes Pain Scale: 0-10 Numeric Is Patient Pain Free? Yes Yes - Nurse 3 - General Ulcer D/C NN Start: 10/14/20 10:23 Freq: Status: Active Protocol: Activity Type Activity Date Activity User E-Sign Co-Sign Detail Recorded Client Recorded Date Recorded By Document 10/14/20 10:54 NH [id number] 10/14/20 10:56 NH 10/14/20 10:54 Wound Care Nurse 3 #6 L Med Ankle Cluster -Other Dressing TCC, own aquacel AG -Primary Dressing Covered/Secured with Dry Gauze, Secured with Tape WC - Visit Discharge Discharge Condition Stable Ambulatory Status Ambulatory Transportation Private Auto Medication Reconcilliation completed & No provided to patient/care provider Clinical Summary of Care Provided Yes Notes: TCC cast Wound debrided: plantar heel Laterality: Left Type of Debridement: Excisional debridement Anesthesia Used: 5% Lidocaine Gel Depth: in the subcutaneous layer Percentage of wound debrided: 100 Instrument Used: #15 blade Tissue Removed: fibrous, devitalized subcutaneous, biofilm, slough Severity: Fat Layer Exposed Amount of bleeding with debridement: Mild Bleeding Controlled with: Pressure Patient tolerated procedure well Assessment/Plan Active Problems Lupus (systemic lupus erythematosus) (Chronic) Ulcer of left foot with fat layer exposed (Chronic) Calcaneal gait (Chronic) left Delayed wound healing (Chronic) Malnutrition (Chronic) Localized edema (Chronic) Assessment: Left heel ulcer, fat layer exposed. Lupus. Lower extremity edema. Left calcaneus gait. Delayed healing Plan: I reviewed and discussed her case. Subcutaneous excisional debridement was performed as noted in the clinical panel. She was reassured that there are no local signs of infection today. She completed a course of epifix and has responded well. The mounika-ulcer inflammation has resolved. Verbal consent was obtained for total contact cast application after aquacel ag was applied. This was applied according to standard protocol in neutral position in a well padded manner. Care was taken to apply a horseshoe offloading pad around the recently healed medial foot ulcer site. She tolerated this well. To maintain strict nonweightbearing status with the knee roller. She was advised to maintain a balanced whole food diet with adequate protein and nutrients to optimize healing. A prescription for Yosvany was provided previously and she was advised on proper use. I offered her a sales executive insurance referral as well and she canceled this appointment. She is trying to reschedule. She understands her systemic inflammatory disease of lupus may also be contributing to delayed healing. She will avoid antirheumatic medications at this time. She was advised to avoid prednisone use and will also hold the Plaquenil at this time unless she has an intense flareup. This have reviewed verbally with Dr. Pratt previously. I answered all of her questions. She has a calcaneus gait with prior surgical intervention including a tendon transfer which is compromised with a fall in the early postoperative setting. We previously discussed options to surgically alleviate her calcaneus gait including retightening the Achilles tendon or other posterior leg muscles. The exact procedure will need to be determined after updated MRI evaluation. The indications, benefits, risk, healing time and management were briefly reviewed today. She defers at this time. She has been continuing to fail basic and advanced wound care options and I recommend surgical consideration at this time. She was advised to return to the wound healing center in 1 week. To call sooner if she has any questions or concerns or any evidence of infection development. Note: [employer] speech recognition equipment application specialist software was used to create portions of this document. Sound-alike and misspelled words, as well as other equipment application specialist errors may be contained in the documentation.
[2020-10-28 15:05] VITALS: BP 124/81
[2020-11-04 13:53] VITALS: BP 125/83; PULSE 92; RESP 20; TEMP 36.6; BMI 39.5
[2020-11-04 15:23] VITALS: BP 125/82
--- NOTE | 2020-11-04 22:47 | PCM.WC.PN ---
(1) Ulcer of left foot with fat layer exposed Status: Chronic Code(s): L97.522 - Non-pressure chronic ulcer of other part of left foot with fat layer exposed (2) Lupus (systemic lupus erythematosus) Status: Chronic Qualifiers: Code(s): M32.9 - Systemic lupus erythematosus, unspecified (3) Calcaneal gait Status: Chronic Code(s): R26.89 - Other abnormalities of gait and mobility Comment: left (4) Delayed wound healing Status: Chronic Code(s): T14.8XXD - Other injury of unspecified body region, subsequent encounter (5) Malnutrition Status: Chronic Code(s): E46 - Unspecified protein-calorie malnutrition (6) Localized edema Status: Chronic Code(s): R60.0 - Localized edema Type of Wound Date of Service: 11/04/20 Chief Complaint: Left heel ulcer History of Wound: This pleasant 55-year-old female with significant past medical history of lupus, history of panic attack, depression, history of delayed healing, hyperlipidemia, irritable bowel syndrome, memory loss, restless leg syndrome, and obstructive sleep apnea is here for follow-up of left heel ulcer. She denies fever, chill, nausea, vomiting. Her left foot pain has resolved and she kept her total contact cast clean and intact this past week. She has discontinued her lupus medication as advised (managed by rheumatology). She is amendable to proceed with a total contact cast again today. Progress of Wound: Heel ulcer improving - Physical Exam Vital Signs Temp Pulse Resp BP 98 F 92 20 H 125/82 H 11/04/20 13:53 11/04/20 13:53 11/04/20 13:53 11/04/20 15:23 General: Alert, Oriented x3, Cooperative, No apparent distress Extremities: No cyanosis, Capillary Refill Less than 3 Seconds, No Calf Tenderness, Diminished Peripheral Pulses, Edema Skin: Ulcer/ Wound - No purulence, erythema, streaking, odor, infection. The adjacent skin is hairless and atrophic. Continued ulcer site epithelialization is noted even after the blister roof it was removed adjacent to the castro skin discontinuity Wound Measurements and Assessment WC - Nurse 1 - General Ulcer Measurement Start: 10/14/20 10:23 Freq: Status: Active Protocol: Activity Type Activity Date Activity User E-Sign Co-Sign Detail Recorded Client Recorded Date Recorded By Document 11/04/20 13:53 [id number] 11/04/20 14:08 DL 11/04/20 13:53 Wound Center Nurse 1 [Ulcer Assessment] #1 Left Heel- Plantar -Current Size (cm) - Length 0.6 -Current Size (cm) - Width 0.6 -Current Size (cm) - Depth 0.4 -Total Square Cm 0.36 -Photo Taken No -Maximum Distance #2 (cm) 1.1 -Circular Undermining Yes -Exudate Amt Medium -Exudate Type Serosanguineous -Wound Margin Thickened -Granulation Amt Large (67-100%) -Granulation Quality Red -Necrosis Amt Small (1-33%) -Necrotic Tissue Type Adherent Slough -Structure Exposed N/A -Texture (Mounika-wound Skin Appearance) Callus,Scarring -Moisture (Mounika-wound Skin Appearance Dry/Scaly ) -Color (Mounika-wound Skin Appearance) No Abnormality -Temperature (Mounika-wound Skin No Abnormality Appearance) (Pt Warm) -Tenderness on Palpation (Mounika-wound No Skin Appearance) -Ulcer Cleansing Wound Cleanser -Foul Odor after Cleansing No -Anesthetic Used 4% Lidocaine Solution WC - Nurse 2 - General Ulcer CM Notes Start: 10/14/20 10:23 Freq: Status: Active Protocol: Activity Type Activity Date Activity User E-Sign Co-Sign Detail Recorded Client Recorded Date Recorded By Document 11/04/20 14:57 [id number] 11/04/20 15:01 11/04/20 14:57 Wound Center Nurse 2 [Procedure/Treatment] -Time 14:58 -Correct Patient Yes -Correct Side, Site, Position Yes -Correct Procedure Yes -Procedure Performed Yes -Type of Procedure Debridement -Clinical Debridement Subcutaneous -Tissue Removed Subcutaneous -Post Debridement (cm) - Length 0.5 -Post Debridement (cm) - Width 0.5 -Post Debridement (cm) - Depth 0.2 -Total Square (Post) (cm) 0.25 -Area of Debridement (cm) - Length 0.5 -Area of Debridement (cm) - Width 0.5 -Total Square (Area) (cm) 0.25 -Tunneling No -Undermining/Tunneling No -Circular Undermining No -Wound/Ulcer Outcome Not Healed -Ulcer Cleansing Rinsed/ Irrigated with Saline -Foul Odor after Cleansing No -Bioengineered Tissue No -Bleeding Controlled with Pressure -Offloading Yes -Type of Offloading Total Contact Cast (TCC) - Left ($) -Treatment Response Procedure Tolerated Well -Debridement - Subq, 1st 20sq cm Yes [See Physician Procedure note for Specifics] Pain Scale: 0-10 Numeric [Pain] -Is Patient Pain Free? Yes - Nurse 3 - General Ulcer D/C NN Start: 10/14/20 10:23 Freq: Status: Active Protocol: Activity Type Activity Date Activity User E-Sign Co-Sign Detail Recorded Client Recorded Date Recorded By Document 11/04/20 15:23 RB [id number] 11/04/20 15:24 RB 11/04/20 15:23 Wound Care Nurse 3 [Wound Dressing] #1 Left Heel- Plantar -Primary Dressing Applied Aquacel AG 2x2 -Other Dressing TCC 3inch primary layer applied -Aquacel AG 2x2 1 Vital Signs [Blood Pressure] -Blood Pressure (90/60-120/80) 125/82 H -Blood Pressure Mean (mm Hg) 96 -Source Monitor -Position Sitting -Blood Pressure Location Left Arm Pain Scale: 0-10 Numeric [Pain] -Is Patient Pain Free? Yes - Visit Discharge [Visit Discharge Information] -Discharge Condition Stable -Ambulatory Status Ambulatory -Transportation Private Auto -Medication Reconcilliation completed No & provided to patient/care provider -Clinical Summary of Care Provided Yes Musculoskeletal: No Tenderness to Palpation of Joints or Extremities, Muscle Wasting, - - Calcaneus gait Neurological: - - Lack of full epicritic sensation to light touch Psych/Mental Status: Normal Affect, Appropriate Debridement Note Post-Debridement Measurements/Treatment - Nurse 2 - General Ulcer CM Notes Start: 10/14/20 10:23 Freq: Status: Active Protocol: Activity Type Activity Date Activity User E-Sign Co-Sign Detail Recorded Client Recorded Date Recorded By Document 10/14/20 12:46 PL [id number] 10/14/20 12:47 PL Document 10/21/20 10:36 JF [id number] 10/21/20 10:39 JF Document 10/28/20 14:29 JF [id number] 10/28/20 14:31 JF Document 11/04/20 14:57 JF [id number] 11/04/20 15:01 JF 10/14/20 10/21/20 10/28/20 12:46 10:36 14:29 Wound Center Nurse 2 #6 L Med Ankle Cluster -Time 10:46 -Correct Patient Yes No -Correct Side, Site, Position Yes No -Correct Procedure Yes No -Procedure Performed Yes No -Type of Procedure Debridement -Clinical Debridement Subcutaneous -Tissue Removed Subcutaneous -Post Debridement (cm) - Length 0.9 0 -Post Debridement (cm) - Width 1.2 0 -Post Debridement (cm) - Depth 0.3 0 -Total Square (Post) (cm) 1.08 0 -Area of Debridement (cm) - Length 0.9 0 -Area of Debridement (cm) - Width 1.2 0 -Total Square (Area) (cm) 1.08 0 -Tunneling No -Undermining/Tunneling No -Circular Undermining No -Wound/Ulcer Outcome Not Healed Healed- Epithelialized -Ulcer Cleansing Rinsed/ Irrigated with Saline -Foul Odor after Cleansing No -Bioengineered Tissue No -Debridement - Subq, 1st 20sq cm Yes #1 Left Heel- Plantar -Time 10:38 14:29 -Correct Patient Yes Yes -Correct Side, Site, Position Yes Yes -Correct Procedure Yes Yes -Procedure Performed No Yes Yes -Type of Procedure Debridement Debridement -Clinical Debridement Subcutaneous Subcutaneous -Tissue Removed Subcutaneous Subcutaneous -Post Debridement (cm) - Length 0.7 0.6 -Post Debridement (cm) - Width 0.7 0.6 -Post Debridement (cm) - Depth 0.1 0.3 -Total Square (Post) (cm) 0.49 0.36 -Area of Debridement (cm) - Length 0.7 0.6 -Area of Debridement (cm) - Width 0.7 0.6 -Total Square (Area) (cm) 0.49 0.36 -Tunneling No No -Undermining/Tunneling No No -Circular Undermining No No -Wound/Ulcer Outcome Healed- Not Healed Not Healed Epithelialized -Ulcer Cleansing Rinsed/ Rinsed/ Irrigated with Irrigated with Saline Saline -Foul Odor after Cleansing No No -Bioengineered Tissue No No -Bleeding Controlled with Pressure Pressure -Offloading Yes Yes -Type of Offloading Total Contact Total Contact Total Contact Cast (TCC) - Cast (TCC) - Cast (TCC) - Left ($) Left ($) Left ($) -Treatment Response Procedure Procedure Tolerated Well Tolerated Well -Debridement - Subq, 1st 20sq cm Yes Yes Pain Scale: 0-10 Numeric Is Patient Pain Free? Yes Yes 11/04/20 14:57 Wound Center Nurse 2 #6 L Med Ankle Cluster -Time -Correct Patient -Correct Side, Site, Position -Correct Procedure -Procedure Performed -Type of Procedure -Clinical Debridement -Tissue Removed -Post Debridement (cm) - Length -Post Debridement (cm) - Width -Post Debridement (cm) - Depth -Total Square (Post) (cm) -Area of Debridement (cm) - Length -Area of Debridement (cm) - Width -Total Square (Area) (cm) -Tunneling -Undermining/Tunneling -Circular Undermining -Wound/Ulcer Outcome -Ulcer Cleansing -Foul Odor after Cleansing -Bioengineered Tissue -Debridement - Subq, 1st 20sq cm #1 Left Heel- Plantar -Time 14:58 -Correct Patient Yes -Correct Side, Site, Position Yes -Correct Procedure Yes -Procedure Performed Yes -Type of Procedure Debridement -Clinical Debridement Subcutaneous -Tissue Removed Subcutaneous -Post Debridement (cm) - Length 0.5 -Post Debridement (cm) - Width 0.5 -Post Debridement (cm) - Depth 0.2 -Total Square (Post) (cm) 0.25 -Area of Debridement (cm) - Length 0.5 -Area of Debridement (cm) - Width 0.5 -Total Square (Area) (cm) 0.25 -Tunneling No -Undermining/Tunneling No -Circular Undermining No -Wound/Ulcer Outcome Not Healed -Ulcer Cleansing Rinsed/ Irrigated with Saline -Foul Odor after Cleansing No -Bioengineered Tissue No -Bleeding Controlled with Pressure -Offloading Yes -Type of Offloading Total Contact Cast (TCC) - Left ($) -Treatment Response Procedure Tolerated Well -Debridement - Subq, 1st 20sq cm Yes Pain Scale: 0-10 Numeric Is Patient Pain Free? Yes WC - Nurse 3 - General Ulcer D/C NN Start: 10/14/20 10:23 Freq: Status: Active Protocol: Activity Type Activity Date Activity User E-Sign Co-Sign Detail Recorded Client Recorded Date Recorded By Document 10/14/20 10:54 MT [id number] 10/14/20 10:56 MT Document 10/28/20 15:05 RB [id number] 10/28/20 15:07 RB Document 11/04/20 15:23 RB [id number] 11/04/20 15:24 RB 10/14/20 10/28/20 11/04/20 10:54 15:05 15:23 Wound Care Nurse 3 #6 L Med Ankle Cluster -Other Dressing TCC, own aquacel AG -Primary Dressing Covered/Secured with Dry Gauze, Secured with Tape #1 Left Heel- Plantar -Ulcer Cleansing Wound Cleanser -Primary Dressing Applied Aquacel AG 2x2 Aquacel AG 2x2 -Other Dressing 3 INCH TCC TCC 3inch PRIMARY LAYER primary layer applied -Aquacel AG 2x2 1 1 Treatment Response Procedure Tolerated Well Vital Signs Blood Pressure (90/60-120/80) 124/81 H 125/82 H Blood Pressure Mean (mm Hg) 95 96 Source Monitor Monitor Position Semi-Fowlers Sitting Blood Pressure Location Left Arm Left Arm Pain Scale: 0-10 Numeric Is Patient Pain Free? Yes Yes WC - Visit Discharge Discharge Condition Stable Stable Stable Ambulatory Status Ambulatory Ambulatory Ambulatory Transportation Private Auto Private Auto Private Auto Medication Reconcilliation completed & No No No provided to patient/care provider Clinical Summary of Care Provided Yes Yes Yes Notes: TCC cast Wound debrided: plantar heel Laterality: Left Type of Debridement: Excisional debridement Anesthesia Used: 5% Lidocaine Gel Depth: in the subcutaneous layer Percentage of wound debrided: 100 Instrument Used: #15 blade Tissue Removed: fibrous, devitalized subcutaneous, biofilm, slough Severity: Fat Layer Exposed Amount of bleeding with debridement: Mild Bleeding Controlled with: Pressure Patient tolerated procedure well Assessment/Plan Active Problems Lupus (systemic lupus erythematosus) (Chronic) Ulcer of left foot with fat layer exposed (Chronic) Calcaneal gait (Chronic) left Delayed wound healing (Chronic) Malnutrition (Chronic) Localized edema (Chronic) Assessment: Left heel ulcer, fat layer exposed. Lupus. Lower extremity edema. Left calcaneus gait. Delayed healing Plan: I reviewed and discussed her case. Subcutaneous excisional debridement was performed as noted in the clinical panel. She was reassured that there are no local signs of infection today. She completed a course of epifix and has responded well. The mounika-ulcer inflammation has resolved. Verbal consent was obtained for total contact cast application after aquacel ag was applied. This was applied according to standard protocol in neutral position in a well padded manner. Care was taken to apply a horseshoe offloading pad around the recently healed medial foot ulcer site. She tolerated this well. To maintain strict nonweightbearing status with the knee roller. She was advised to maintain a balanced whole food diet with adequate protein and nutrients to optimize healing. A prescription for Yosvany was provided previously and she was advised on proper use. I offered her a forensic locksmith referral as well and she canceled this appointment. She is trying to reschedule. She understands her systemic inflammatory disease of lupus may also be contributing to delayed healing. She will avoid antirheumatic medications at this time. She was advised to avoid prednisone use and will also hold the Plaquenil at this time unless she has an intense flareup. This was previously reviewed verbally with Dr. Pratt. I answered all of her questions. She has a calcaneus gait with prior surgical intervention including a tendon transfer which is compromised with a fall in the early postoperative setting. We previously discussed options to surgically alleviate her calcaneus gait including retightening the Achilles tendon or other posterior leg muscles. The exact procedure will need to be determined after updated MRI evaluation. The indications, benefits, risk, healing time and management were briefly reviewed today. She defers at this time. She was advised to return to the wound healing center in 1 week. To call sooner if she has any questions or concerns or any evidence of infection development. Note: [employer] speech recognition piano case maker software was used to create portions of this document. Sound-alike and misspelled words, as well as other piano case maker errors may be contained in the documentation.
== END 2020-11-08 23:59 ==
LOC: WC 14:00
PROVIDERS: PCP Family Medicine; Referring Provider Podiatrist Foot & Ankle Surgery; Visit Provider Podiatrist
DX: L97.422 Non-pressure chronic ulcer of left heel and midfoot with fat layer exposed (principal); G47.33 Obstructive sleep apnea (adult) (pediatric); R60.0 Localized edema; M32.9 Systemic lupus erythematosus, unspecified; E78.5 Hyperlipidemia, unspecified; K58.9 Irritable bowel syndrome, unspecified; G25.81 Restless legs syndrome; Z86.14 Personal history of Methicillin resistant Staphylococcus aureus infection
CPT/HCPCS: 11042; 29445

== ENCOUNTER 2020-11-18 14:00 | Outpatient (RCR) | payer MEDICARE, BC, SELFPAY ==
[2020-11-09 00:17] VITALS: BP 125/82; PULSE 92; RESP 20; TEMP 36.6
[2020-11-11 10:19] VITALS: BP 118/71; PULSE 94; RESP 18; TEMP 36.3; BMI 39.5
--- NOTE | 2020-11-11 11:05 | PN.PCM_ITS ---
(1) Ulcer of left foot with fat layer exposed Status: Resolved Code(s): L97.522 - Non-pressure chronic ulcer of other part of left foot with fat layer exposed (2) Calcaneal gait Status: Chronic Code(s): R26.89 - Other abnormalities of gait and mobility Comment: left (3) Delayed wound healing Status: Chronic Code(s): T14.8XXD - Other injury of unspecified body region, subsequent encounter (4) Lupus (systemic lupus erythematosus) Status: Chronic Qualifiers: Code(s): M32.9 - Systemic lupus erythematosus, unspecified Type of Wound Date of Service: 11/11/20 Chief Complaint: Left heel ulcer History of Wound: This pleasant 55-year-old female with significant past medical history of lupus, history of panic attack, depression, history of delayed healing, hyperlipidemia, irritable bowel syndrome, memory loss, restless leg syndrome, and obstructive sleep apnea is here for follow-up of left heel ulcer. She denies fever, chill, nausea, vomiting. Her left foot pain has resolved and she kept her total contact cast clean and intact this past week. She has discontinued her lupus medication as advised (managed by rheumatology). She is amendable to proceed with a total contact cast again today as recommended even though the ulcer site appears to be healed. Progress of Wound: Healed - Physical Exam Vital Signs Temp Pulse Resp BP 97.4 F L 94 18 118/71 11/11/20 10:19 11/11/20 10:19 11/11/20 10:19 11/11/20 10:19 General: Alert, Oriented x3, Cooperative, No apparent distress Extremities: No cyanosis, Capillary Refill Less than 3 Seconds, No Calf Tenderness, Diminished Peripheral Pulses, Edema Skin: Ulcer/ Wound - No purulence, erythema, streaking, odor, infection. There is full epithelialization noted to the plantar heel. No bogginess or fluctuance. Wound Measurements and Assessment WC - Nurse 1 - General Ulcer Measurement Start: 11/11/20 10:19 Freq: Status: Active Protocol: Activity Type Activity Date Activity User E-Sign Co-Sign Detail Recorded Client Recorded Date Recorded By Document 11/11/20 10:19 DL [id number] 11/11/20 10:27 DL 11/11/20 10:19 Wound Center Nurse 1 [Ulcer Assessment] #1 Left Heel- Plantar -Current Size (cm) - Length 0.2 -Current Size (cm) - Width 0.2 -Current Size (cm) - Depth 0.1 -Total Square Cm 0.04 -Photo Taken No -Exudate Amt None Present -Wound Margin Thickened -Granulation Amt Large (67-100%) -Granulation Quality Pale -Necrosis Amt Small (1-33%) -Necrotic Tissue Type Adherent Slough -Structure Exposed N/A -Texture (Mounika-wound Skin Appearance) Scarring -Moisture (Mounika-wound Skin Appearance Dry/Scaly ) -Color (Mounika-wound Skin Appearance) No Abnormality -Temperature (Mounika-wound Skin No Abnormality Appearance) (Pt Warm) -Tenderness on Palpation (Mounika-wound No Skin Appearance) -Ulcer Cleansing Wound Cleanser -Foul Odor after Cleansing No -Anesthetic Used 4% Lidocaine Solution WC - Nurse 2 - General Ulcer CM Notes Start: 11/11/20 10:19 Freq: Status: Active Protocol: Activity Type Activity Date Activity User E-Sign Co-Sign Detail Recorded Client Recorded Date Recorded By Document 11/11/20 10:43 STEPHANIE [id number] 11/11/20 10:44 STEPHANIE 11/11/20 10:43 Wound Center Nurse 2 [Procedure/Treatment] -Correct Patient No -Correct Side, Site, Position No -Correct Procedure No -Procedure Performed No -Post Debridement (cm) - Length 0 -Post Debridement (cm) - Width 0 -Post Debridement (cm) - Depth 0 -Total Square (Post) (cm) 0 -Area of Debridement (cm) - Length 0 -Area of Debridement (cm) - Width 0 -Total Square (Area) (cm) 0 -Wound/Ulcer Outcome Healed- Epithelialized -Offloading Yes -Type of Offloading Total Contact Cast (TCC) - Left ($) -Treatment Response Procedure Tolerated Well -Debridement - Subq, 1st 20sq cm No [See Physician Procedure note for Specifics] Pain Scale: 0-10 Numeric [Pain] -Is Patient Pain Free? Yes Musculoskeletal: No Tenderness to Palpation of Joints or Extremities, Muscle Wasting, - - calcaneus gait Neurological: Sensory exam intact to light touch and pain Psych/Mental Status: Normal Affect, Appropriate Debridement Note Post-Debridement Measurements/Treatment WC - Nurse 2 - General Ulcer CM Notes Start: 11/11/20 10:19 Freq: Status: Active Protocol: Activity Type Activity Date Activity User E-Sign Co-Sign Detail Recorded Client Recorded Date Recorded By Document 11/11/20 10:43 STEPHANIE [id number] 11/11/20 10:44 STEPHANIE 11/11/20 10:43 Wound Center Nurse 2 #1 Left Heel- Plantar -Correct Patient No -Correct Side, Site, Position No -Correct Procedure No -Procedure Performed No -Post Debridement (cm) - Length 0 -Post Debridement (cm) - Width 0 -Post Debridement (cm) - Depth 0 -Total Square (Post) (cm) 0 -Area of Debridement (cm) - Length 0 -Area of Debridement (cm) - Width 0 -Total Square (Area) (cm) 0 -Wound/Ulcer Outcome Healed- Epithelialized -Offloading Yes -Type of Offloading Total Contact Cast (TCC) - Left ($) -Treatment Response Procedure Tolerated Well -Debridement - Subq, 1st 20sq cm No Pain Scale: 0-10 Numeric Is Patient Pain Free? Yes Wound debrided: plantar heel Laterality: Left No debridement was completed today Assessment/Plan Assessment: Left heel ulcer, healed. Lupus. Lower extremity edema. Left calcaneus gait. Delayed healing Plan: I reviewed and discussed her case. Debridement was not performed because the ulcer site has healed. she understands her skin is very friable at this time. She was reassured that there are no local signs of infection today. She completed a course of epifix and has responded well. The mounika-ulcer inflammation has resolved. Verbal consent was obtained for total contact cast application after aquacel ag was applied. This was applied according to standard protocol in neutral position in a well padded manner. Care was taken to apply a horseshoe offloading pad around the recently healed medial foot ulcer site. She tolerated this well. To maintain strict nonweightbearing status with the knee roller. She was advised to maintain a balanced whole food diet with adequate protein and nutrients to optimize healing. A prescription for Yosvany was provided previously and she was advised on proper use. I offered her a staff sonographer referral as well and she canceled this appointment. She would like to reschedule. She understands her systemic inflammatory disease of lupus may also be contributing to prior delayed healing. She will avoid antirheumatic medications at this time. To resume if this remains healed for a couple more weeks. She was advised to avoid prednisone use and will also hold the Plaquenil at this time unless she has an intense flareup. This was previously reviewed verbally with Dr. Pratt. I answered all of her questions. She has a calcaneus gait with prior surgical intervention including a tendon transfer which is compromised with a fall in the early postoperative setting. We previously discussed options to surgically alleviate her calcaneus gait including retightening the Achilles tendon or other posterior leg muscles. The exact procedure will need to be determined after updated MRI evaluation. The indications, benefits, risk, healing time and management were briefly reviewed today. She defers at this time. She was advised to return to the wound healing center in 1 week for cast removal and healed ulcer check. To call soon er if she has any questions or concerns or any evidence of infection development. Note: [employer] speech recognition quiller machine fixer software was used to create portions of this document. Sound-alike and misspelled words, as well as other quiller machine fixer errors may be contained in the documentation. The problems addressed require a low medical decision making level which includes two or more minor problems, a stable chronic illness, or an acute uncomplicated illness or injury. The medical decision making level is low. There is noted low risk of morbidity after considering this treatment plan and diagnostic data.
[2020-11-11 11:06] VITALS: BP 120/71
--- NOTE | 2020-11-18 21:56 | PN.PCM_ITS ---
(1) Ulcer of left foot with fat layer exposed Status: Resolved Code(s): L97.522 - Non-pressure chronic ulcer of other part of left foot with fat layer exposed (2) Calcaneal gait Status: Chronic Code(s): R26.89 - Other abnormalities of gait and mobility Comment: left (3) Delayed wound healing Status: Chronic Code(s): T14.8XXD - Other injury of unspecified body region, subsequent encounter (4) Lupus (systemic lupus erythematosus) Status: Chronic Qualifiers: Code(s): M32.9 - Systemic lupus erythematosus, unspecified Type of Wound Date of Service: 11/18/20 Chief Complaint: Left heel ulcer History of Wound: This pleasant 55-year-old female with significant past medical history of lupus, history of panic attack, depression, history of delayed healing, hyperlipidemia, irritable bowel syndrome, memory loss, restless leg syndrome, and obstructive sleep apnea is here for follow-up of left heel ulcer. She denies fever, chill, nausea, vomiting. Her left foot pain has resolved and she kept her total contact cast clean and intact this past week. Her ulcer site has healed and she wore the total contact cast as advised last week to allow continued skin remodeling. She is also scheduled next week at [facility] to start the process for getting an ankle-foot orthotic customized to reduce her calcaneus gait pattern. This will be a fixed device. Progress of Wound: Healed - Physical Exam Vital Signs Temp Pulse Resp BP 97.4 F L 94 18 120/71 11/11/20 10:19 11/11/20 10:19 11/11/20 10:19 11/11/20 11:06 General: Alert, Oriented x3, Cooperative, No apparent distress HEENT: Atraumatic Extremities: No cyanosis, No edema, Capillary Refill Less than 3 Seconds, No Calf Tenderness, Peripheral Pulses Normal Skin: Ulcer/ Wound - Epithelialization is noted in the ulcer site remains healed with remodeling skin. There are no signs of infection. Wound Measurements and Assessment WC - Nurse 1 - General Ulcer Measurement Start: 11/11/20 10:19 Freq: Status: Discharge Protocol: Activity Type Activity Date Activity User E-Sign Co-Sign Detail Recorded Client Recorded Date Recorded By Edit Status 11/18/20 15:16 SHAHRAM CABRERA Active=>Discharge [id number] 11/18/20 15:16 BKG DAEMON - Nurse 2 - General Ulcer CM Notes Start: 11/11/20 10:19 Freq: Status: Discharge Protocol: Activity Type Activity Date Activity User E-Sign Co-Sign Detail Recorded Client Recorded Date Recorded By Document 11/18/20 14:25 [id number] 11/18/20 14:27 Edit Status 11/18/20 15:16 [facility]/18/[facility] 15:16 BKG DAEMON 11/18/20 14:25 Pain Scale: 0-10 Numeric [Pain] -Is Patient Pain Free? Yes - Nurse 3 - General Ulcer D/C NN Start: 11/11/20 10:19 Freq: Status: Discharge Protocol: Activity Type Activity Date Activity User E-Sign Co-Sign Detail Recorded Client Recorded Date Recorded By Document 11/18/20 14:30 [id number] 11/18/20 14:30 Edit Status 11/18/20 15:16 BKG DAEMON Active=>Discharge [place] [id number] 11/18/20 15:16 BKG DAEMON 11/18/20 14:30 -Is Patient Pain Free? Yes - Visit Discharge [Visit Discharge Information] -Discharge Condition Stable -Ambulatory Status Ambulatory -Transportation Private Auto -Medication Reconcilliation completed Yes & provided to patient/care provider -Clinical Summary of Care Provided Yes Musculoskeletal: Muscle Wasting, - - Calcaneus gait position left. Compartments are soft Neurological: Sensory exam intact to light touch and pain Psych/Mental Status: Normal Affect, Appropriate Debridement Note Post-Debridement Measurements/Treatment - Nurse 2 - General Ulcer CM Notes Start: 11/11/20 10:19 Freq: Status: Discharge Protocol: Activity Type Activity Date Activity User E-Sign Co-Sign Detail Recorded Client Recorded Date Recorded By Document 11/11/20 10:43 [id number] 11/11/20 10:44 Document 11/18/20 14:25 [id number] 11/18/20 14:27 11/11/20 11/18/20 10:43 14:25 Wound Center Nurse 2 #1 Left Heel- Plantar -Correct Patient No -Correct Side, Site, Position No -Correct Procedure No -Procedure Performed No -Post Debridement (cm) - Length 0 -Post Debridement (cm) - Width 0 -Post Debridement (cm) - Depth 0 -Total Square (Post) (cm) 0 -Area of Debridement (cm) - Length 0 -Area of Debridement (cm) - Width 0 -Total Square (Area) (cm) 0 -Wound/Ulcer Outcome Healed- Epithelialized -Offloading Yes -Type of Offloading Total Contact Cast (TCC) - Left ($) -Treatment Response Procedure Tolerated Well -Debridement - Subq, 1st 20sq cm No Pain Scale: 0-10 Numeric Is Patient Pain Free? Yes Yes - Nurse 3 - General Ulcer D/C NN Start: 11/11/20 10:19 Freq: Status: Discharge Protocol: Activity Type Activity Date Activity User E-Sign Co-Sign Detail Recorded Client Recorded Date Recorded By Document 11/11/20 11:06 RB [id number] 11/11/20 11:08 RB Document 11/18/20 14:30 STEPHANIE [id number] 11/18/20 14:30 JF 11/11/20 11/18/20 11:06 14:30 Wound Care Nurse 3 Treatment Response Procedure Tolerated Well Vital Signs Blood Pressure (90/60-120/80) 120/71 Blood Pressure Mean (mm Hg) 87 Source Monitor Position Semi-Fowlers Blood Pressure Location Left Arm Pain Scale: 0-10 Numeric Is Patient Pain Free? Yes Yes WC - Visit Discharge Discharge Condition Stable Stable Ambulatory Status Ambulatory Ambulatory Transportation Private Auto Private Auto Medication Reconcilliation completed & No Yes provided to patient/care provider Clinical Summary of Care Provided Yes Yes Notes: TCC primary layer applied. felt horse shoe off loading on left medial foot as instructed per Dr Gutierrez Wound debrided: foot Laterality: Left No debridement was completed today - healed today Assessment/Plan Active Problems Lupus (systemic lupus erythematosus) (Chronic) Calcaneal gait (Chronic) left Delayed wound healing (Chronic) Assessment: Left heel ulcer, healed. Lupus. Lower extremity edema. Left calcaneus gait. Delayed healing Plan: I reviewed and discussed her case. Debridement was not performed because the ulcer site has healed. she understands her skin is very friable at this time. She was reassured that there are no local signs of infection today. She completed a course of epifix and has responded well. The mounika-ulcer inflammation has resolved. To maintain strict nonweightbearing status with the knee roller until her demise ankle-foot device is finalized from [facility] in which she has this scheduled for next week. To proceed with her antirheumatic medication under the management of her qm consultant now that her ulcer site has healed. I answered all of her questions. To maintain good skin integrity by moisturizing the skin daily. To monitor for blisters or other evidence of increased pressure edges friable site. She understands surgical repair of her prior Achilles rupture and flexor tendon transfer site need to be considered if this ulcer reoccurs. She is discharged from the wound healing center at this time. She will follow-up at the foot and ankle center 1 month for reevaluation. Note: [employer] speech recognition key entry operator software was used to create portions of this document. Sound-alike and misspelled words, as well as other key entry operator errors may be contained in the documentation. The problems addressed require a moderate decision making level which includes one or more chronic illnesses (w/ exacerbation, progression, or side effects), two or more stable chronic illnesses, one undiagnosed new problem w/ uncertain prognosis, one acute illness with systemic symptoms, or one acute complicated injury. The medical decision making level is moderate. There is noted moderate risk of morbidity after considering this treatment plan and diagnostic data. Considerations were given to prescription management, decisions regarding surgical options, or social determinants of health.
== END 2020-11-18 15:16 | disposition home or self-care (01) ==
LOC: WC 14:00
PROVIDERS: PCP Family Medicine; Referring Provider Podiatrist Foot & Ankle Surgery; Visit Provider Podiatrist
DX: R60.0 Localized edema (principal); R26.89 Other abnormalities of gait and mobility; M32.9 Systemic lupus erythematosus, unspecified
CPT/HCPCS: 29445; 99213; G0463

== ENCOUNTER → 2021-01-27 15:21 | Outpatient (CLI) | payer MEDICARE, BC, SELFPAY ==
[2020-11-11 10:19] VITALS: BMI 39.5
--- NOTE | 2021-01-27 15:24 | RAD_ITS ---
INDICATION: OSTEOMYELITIS EXAMINATION/TECHNIQUE: X-RAY - LEFT FOOT XR Toes Min 2 Views COMPARISON: None. FINDINGS: No acute fracture or malalignment. No blastic or lytic lesions. No degenerative changes are seen. Soft tissue swelling of the third digit. RAD/Toe(s) Min 2 Views IMPRESSION: Soft tissue swelling of the third digit without definite erosive changes. If high concern for osteomyelitis, recommend 3 phase nuclear medicine bone scan. Electronically Signed: Clark Friend MD at 18:55 EDT Tel , Service support ,
--- NOTE | 2021-01-27 15:25 | RAD_ITS ---
STUDY: X-RAY - LEFT FOOT CLINICAL: Female, 55 years old. OSTEOMYELITIS TECHNIQUE: 3 view(s) of the foot. COMPARISON: None. FINDINGS: Normal talus, calcaneus, and tarsal bones. Small plantar calcaneal enthesophyte Normal visualized subtalar, talonavicular, calcaneocuboid, tarsal and tarsometatarsal articulations. Normal metatarsi. Normal metatarsophalangeal joint of the great toe. Normal tibial and fibular sesamoid bones. Normal interphalangeal joint of the great toe. Normal phalanges of the great toe. Normal second through fifth metatarsophalangeal joints. Normal interphalangeal joints and phalanges of the lesser toes. Soft tissue swelling of the third digit consistent with cellulitis. No bone destruction to suggest osteomyelitis. RAD/Foot min 3 Views IMPRESSION: Suspect cellulitis of the third digit but no radiographic evidence of osteomyelitis. Electronically Signed: Joby Mejia MD at 16:03 EDT Tel , Service support ,
== END ==
PROVIDERS: PCP Family Medicine; Referring Provider Family Medicine; Visit Provider Family Medicine
DX: M86.9 Osteomyelitis, unspecified (principal)
CPT/HCPCS: 73630; 73660

== ENCOUNTER → 2021-04-19 10:46 | Outpatient (CLI) | payer MEDICARE, BC, SELFPAY ==
[2020-11-11 10:19] VITALS: BMI 39.5
--- NOTE | 2021-04-19 11:42 | RAD_ITS ---
HISTORY: Inflammatory polyarthropathy. TECHNIQUE: XR Knee Complete 4 Views or More. # of images incl. paperwork: 4. COMPARISON: None. FINDINGS: BONES: No acute fracture identified. Mineralization unremarkable. JOINTS: No dislocation. Degenerative changes with moderate-severe medial compartment joint space narrowing and small osteophytes. Mild joint effusion. RAD/Knee 4 or More Views IMPRESSION: No acute fracture or dislocation identified. Degenerative changes and mild joint effusion in the right knee. at 1146 Reported and signed by: Alejandra Choudhury MD Electronically Signed: Alejandra Choudhury MD at 11:45 EDT Tel , Service support ,
--- NOTE | 2021-04-19 11:42 | RAD_ITS ---
HISTORY: Inflammatory polyarthropathy. TECHNIQUE: XR Knee Complete 4 Views or More. # of images incl. paperwork: 4. COMPARISON: None. FINDINGS: BONES: No acute fracture identified. Mineralization unremarkable. JOINTS: No dislocation. Mild degenerative changes. Mild joint effusion. RAD/Knee 4 or More Views IMPRESSION: No acute fracture or dislocation identified. Degenerative changes and mild joint effusion in the left knee. at 1147 Reported and signed by: Alejandra Choudhury MD Electronically Signed: Alejandra Choudhury MD at 11:46 EDT Tel , Service support ,
[2021-04-19 16:03] LABS: Absolute Lymphocyte Count 3.55 X10^3/uL (0.83-4.51); Absolute Neutrophil Count 6.6 X10^3/uL (2.0-7.7); Basophil# 0.06 X10^3/uL; Basophil% 0.5 % (0-1); Eosinophils% 1.8 % (0-5); Hematocrit 38.7 % (37-47); Hemoglobin 12.2 g/dL (12.0-15.0); Lymphocyte # 3.55 X10^3/ul (0.83-4.51); Lymphocyte % 31.7 % (19-41); Mean Corp Hgb Conc 31.5 g/dL (32-36); Mean Corpuscular Hgb 28.4 pg (27.0-32.0); Mean Corpuscular Volume 90.2 fL (81-99); Mean Platelet Vol. 9.8 fl (6.2-12.0); Monocyte# 0.75 X10^3/uL; Monocyte% 6.7 % (0-10); NRBC Flagged by Analyzer 0 % (0-5); Neutrophil % 58.9 % (47-70); Platelet Count 368 K/mm3 (150-450); RBC Distribution Width CV 12.8 % (11.6-14.6); Red Blood Count 4.29 M/mm3 (4.2-5.4); White Blood Count 11.2 K/mm3 (4.4-11.0)
[2021-04-19 16:17] LABS: ALB/GLOB Ratio 0.8 RATIO (0.9-2.4); AST(SGOT) 21 U/L (15-37); Alanine Aminotransfer ALT/SGPT 26 U/L (13-56); Albumin, Serum 3.5 g/dL (3.2-5.0); Alkaline Phosphatase 102 U/L (45-117); Anion Gap 7 (5-15); BUN 9 mg/dL (7-18); BUN/Creat Ratio 12.4 RATIO (10-20); Calcium,Total 9.1 mg/dL (8.5-10.1); Chloride 105 mmol/L (98-107); Creatinine, Serum 0.73 mg/dL (0.55-1.02); EST Glomerular Filtration Rate 88 mL/min (>60); Est Glom Filt Rate - Afr Amer 107 mL/min (>60); Globulin 4.2 g/dL (2.2-4.2); Glucose 101 mg/dL (74-106); Protein, Total 7.7 g/dL (6.4-8.2); Sodium Level 139 mmol/L (136-145)
== END ==
PROVIDERS: PCP Family Medicine; Referring Provider Internal Medicine Rheumatology; Visit Provider Internal Medicine Rheumatology
DX: M06.4 Inflammatory polyarthropathy (principal); M35.1 Other overlap syndromes; M79.7 Fibromyalgia; M17.0 Bilateral primary osteoarthritis of knee; K58.9 Irritable bowel syndrome, unspecified; F41.9 Anxiety disorder, unspecified; F32.89 Other specified depressive episodes; G47.33 Obstructive sleep apnea (adult) (pediatric); G62.9 Polyneuropathy, unspecified
CPT/HCPCS: 36415; 73564; 80053; 85025

== ENCOUNTER 2021-10-06 14:27 | Emergency (ER) | payer MEDICARE, BC, SELFPAY ==
[2021-10-06] VITALS (8 sets, daily range): BP systolic 103–154; BP diastolic 77–90; PULSE 111–139; RESP 15–25; TEMP 37.3–39.1; O2SAT 93–100; BMI 37.2; BMI 37.6
--- NOTE | 2021-10-06 17:08 | CT_ITS ---
STUDY: CT BRAIN WITHOUT CONTRAST REASON FOR EXAM: Female, 56 years old. Headache fever and congestion RADIATION DOSAGE (If Supplied By Facility): CTDIvol = ( 44.99 ) mGy, DLP = ( 863.60 ) mGycm TECHNIQUE: Transaxial CT imaging of the brain was performed without administration of intravenous contrast material. Individualized dose optimization techniques were used for this CT. COMPARISON: No relevant priors. FINDINGS: Brain parenchyma is without focal lesions, mass effect, acute intracranial hemorrhage, extra parenchymal fluid collections, hydrocephalus or herniation. The skull is intact. CT/Brain/Head without Contrast IMPRESSION: 1. Normal CT brain. Electronically Signed: Adria Gamez MD at 19:07 EST Tel , Service support ,
--- NOTE | 2021-10-06 17:09 | EKG12_ITS ---
Test Reason : SOB Blood Pressure : / mmHG Vent. Rate : 123 BPM Atrial Rate : 123 BPM P-R Int : 138 ms QRS Dur : 110 ms QT Int : 326 ms P-R-T Axes : 057 -23 047 degrees QTc Int : 466 ms Sinus tachycardia Otherwise normal ECG Confirmed by KEREN MAYES, TARA ([id number]), film or videotape editor JAYDEN LAKHANI ([id number]) on 10/12/2021 10:30:31 AM Referred By: WOODY Confirmed By:TARA VELIZ MD
--- NOTE | 2021-10-06 17:25 | EX.ED.DYSGE1 ---
HPI History of Present Illness Chief Complaint: Fever Informant: patient Onset/Context/Timing Onset: Today Timing: Continuous Quality: Pressure Location: Frontal and occipital Worsened by: Light Relieved by: Nothing Narrative Narrative: Patient presents with headache, neck pain, and fever that began today. Patient states her headache began earlier this morning. Patient states it has been constant. Patient states the pain feels like a pressure over the frontal area and occipital area. Patient states it is worse with light. Patient states nothing seems to help. Patient admits to a fever of 103.5 at home. Patient admits to some subjective chills. Patient admits to some decreased urine output over the last 2 days. 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 Patient also has an open wound on her left second toe. [facility] Medical History (Updated 10/06/21 @ 22:[address] Chace Segura, ) Fibromyalgia Lupus Sjogren syndrome with dental involvement Sjogren syndrome with keratoconjunctivitis Sjogren syndrome with peripheral nervous system involvement Home Medications cyclobenzaprine 10 mg PO TID 04/15/20 [History Last Taken Unknown] dicyclomine 20 mg PO TID 04/15/20 [History Last Taken Unknown] duloxetine 60 mg PO DAILY 04/15/20 [History Last Taken Unknown] estradiol 1 mg PO DAILY 04/15/20 [History Last Taken Unknown] gabapentin 300 mg PO BID 04/15/20 [History Last Taken Unknown] hydroxychloroquine 200 mg PO DAILY 04/15/20 [History Last Taken Unknown] lorazepam 1 mg PO DAILY 04/15/20 [History Last Taken Unknown] zolpidem 10 mg PO PCHS 04/15/20 [History Last Taken Unknown] Allergy/AdvReac Type Severity Reaction Status Date / Time Gadolinium-MRI Contrast Allergy Intermediate Hives Verified 10/06/21 14:33 Medium [CONTRAST] amoxicillin [From Augmentin] Allergy Rash Verified 10/06/21 14:33 clavulanic acid Allergy Rash Verified 10/06/21 14:33 [From Augmentin] Iodinated Contrast Media [CT] Allergy Rash Verified 10/06/21 14:33 morphine Allergy Hives Verified 10/06/21 14:33 sertraline [From Zoloft] Allergy Swelling Verified 10/06/21 14:33 Surgical History (Updated 10/06/21 @ 17:[address] Chace Segura DO) History of hysterectomy Hx of Achilles tendon repair Hx of cholecystectomy Social History Smoking Status: Never smoker ROS ROS ED Constitutional Constitutional ED: Reports chills and fever(s) Eyes Eyes: Denies blurry vision or change in vision ENT ENT ED: Denies rhinorrhea or sore throat Cardiovascular Cardiovascular: Denies chest pain or palpitations Respiratory/Chest Respiratory/Chest: Denies cough or dyspnea Gastrointestinal Gastrointestinal: Denies nausea or vomiting Genitourinary Genitourinary ED: Denies dysuria or hematuria Musculoskeletal Musculoskeletal: Reports back pain and neck pain Integumentary Denies abscess or rash Neurologic Neurologic: Reports headache(s); Denies weakness Allergic/Immunologic Allergic/Immunologic ED: Denies mouth swelling or urticaria EXAM Physical Exam Const Vital Signs: 10/06/21 14:30 10/06/21 16:40 10/06/21 16:52 Temperature 99.2 F H 101.3 F H 101.3 F H Temperature Source Temporal Oral Oral Pulse Rate 130 H 138 H 135 H Respiratory Rate 20 H 19 H 23 H Respiratory Effort Respiratory Pattern Blood Pressure 115/84 H 142/86 H 142/86 H Blood Pressure Mean 94 104 104 Pulse Ox 100 99 98 Oxygen Delivery Method Room Air Room Air Room Air 10/06/21 16:57 10/06/21 17:21 10/06/21 17:27 Temperature 102.4 F H Temperature Source Core Pulse Rate 135 H Respiratory Rate 16 Respiratory Effort Normal Respiratory Pattern Tachypnea Blood Pressure 137/77 H Blood Pressure Mean 97 Pulse Ox 100 99 Oxygen Delivery Method Room Air Room Air 10/06/21 18:33 10/06/21 20:02 Temperature 101.1 F H 101.0 F H Temperature Source Core Temporal Pulse Rate 122 H 128 H Respiratory Rate 25 H 20 H Respiratory Effort Respiratory Pattern Blood Pressure 141/88 H 136/80 H Blood Pressure Mean 105 98 Pulse Ox 93 94 Oxygen Delivery Method Room Air Positive well nourished and well developed General Appearance ED: well developed HEENT Reports moist mucous membranes Neck supple and no JVD Resp normal respiratory effort and clear to auscultation bilaterally Cardio regular rhythm and no murmurs Rate: tachycardic GI normal to inspection, nondistended, normoactive bowel sounds Palpation: soft and tender suprapubic; Negative for guarding or rebound tenderness present Extremity normal to inspection General Extremety ED: Negative for edema or tenderness General Extremity: Negative for edema Neuro oriented x3, CN's II-XII intact bilaterally and no sensory deficits noted Sensorium / Orientation: alert Motor Exam: strength 5/5 throughout Psych mental status grossly normal MDM MDM MDM Narrative Medical decision making narrative: Patient was given IV fluids. Patient was given Reglan and Benadryl initially. Patient was given a dose of Tylenol. EKG was obtained. On my interpretation, it showed a sinus tachycardia with a rate of 123. AL interval, QRS interval, and QTc intervals were all normal. [place] was normal. There are no acute ST or T wave changes. CBC was within normal limits. PT was INR and PTT were normal. Comprehensive metabolic profile was within normal limits. High-sensitivity troponin was normal. Initial lactate was elevated 2.2. CT scan of the brain was obtained. There is no acute intracranial abnormality. Patient was given a dose of Solu-Medrol here and a CTA of the brain was obtained. There is no aneurysm noted. There is no acute bleeding noted. Patient feels better on reevaluation. Patient states her headache is nearly resolved. Patient wants to go home. Patient is still tachycardic. Patient states that since she was taken off of her beta-tatianna she always has a mild tachycardia. Repeat lactate was obtained and was 0.9. Urinalysis does not show any evidence of urinary tract infection. Patient was advised of her findings. Patient was instructed to rest in a dark quiet room. Patient was instructed to drink plenty of fluids. Patient was instructed to follow-up with her primary care physician and 5 to 7 days. Patient was instructed return if worse in any way. Patient understood and was agreeable with the plan. All questions were answered. Lab Data Attestation: I reviewed the patient's lab results. Labs: Laboratory Results - last 24 hr 10/06/21 10/06/21 10/06/21 16:48 16:48 16:48 WBC 8.4 RBC 4.35 Hgb 12.5 Hct 37.8 MCV 86.9 MCH 28.7 MCHC 33.1 RDW Std Deviation 41.8 RDW Coeff of Jennifer 13.2 Plt Count 290 MPV 9.1 Immature Gran % (Auto) 0.200 Neut % (Auto) 80.7 H Lymph % (Auto) 8.5 L [place] % (Auto) 8.5 Eos % (Auto) 1.7 Baso % (Auto) 0.4 Absolute Neuts (auto) 6.8 Absolute Lymphs (auto) 0.71 L Nucleated RBC % 0 PT 12.2 INR 1.0 APTT 27.1 Sodium 135 L Potassium 3.9 Chloride 102 Carbon Dioxide 27.0 Anion Gap 6 BUN 6 L Creatinine 0.90 Estim Creat Clear Calc 70.41 Est GFR (MDRD) Af Amer 83 Est GFR (MDRD) Non-Af 69 BUN/Creatinine Ratio 6.6 L Glucose 86 Lactic Acid Calcium 9.5 Total Bilirubin 0.20 AST 17 ALT 26 Alkaline Phosphatase 104 Troponin I High Sens < 3 L Total Protein 8.1 Albumin 3.9 Globulin 4.2 Albumin/Globulin Ratio 0.9 Urine Color Urine Clarity Urine pH Ur Specific [place] Urine Protein Urine Glucose (UA) Urine Ketones Urine Occult Blood Urine Nitrite Urine Bilirubin Urine Urobilinogen Ur Leukocyte Esterase Urine RBC Urine WBC Ur Squamous Epith Cells Urine Bacteria Urine Mucus 10/06/21 10/06/21 10/06/21 16:48 17:15 21:51 WBC RBC Hgb Hct MCV MCH MCHC RDW Std Deviation RDW Coeff of Jennifer Plt Count MPV Immature Gran % (Auto) Neut % (Auto) Lymph % (Auto) [place] % (Auto) Eos % (Auto) Baso % (Auto) Absolute Neuts (auto) Absolute Lymphs (auto) Nucleated RBC % PT INR APTT Sodium Potassium Chloride Carbon Dioxide Anion Gap BUN Creatinine Estim Creat Clear Calc Est GFR (MDRD) Af Amer Est GFR (MDRD) Non-Af BUN/Creatinine Ratio Glucose Lactic Acid 2.2 H* 0.9 Calcium Total Bilirubin AST ALT Alkaline Phosphatase Troponin I High Sens Total Protein Albumin Globulin Albumin/Globulin Ratio Urine Color Straw Urine Clarity Clear Urine pH 7.0 Ur Specific [place] 1.005 Urine Protein Negative Urine Glucose (UA) Normal Urine Ketones Negative Urine Occult Blood 10 H Urine Nitrite Negative Urine Bilirubin Negative Urine Urobilinogen Normal Ur Leukocyte Esterase Negative Urine RBC 0 SEEN Urine WBC 0 SEEN Ur Squamous Epith Cells 0 SEEN Urine Bacteria 0 SEEN Urine Mucus 0 SEEN Radiography Diagnostic Testing: Clinical Impression(s) from Imaging Studies Brain CT 10/06/21 17:08 IMPRESSION: 1. Normal CT brain. Electronically Signed: Adria Gamez MD at 19:07 EST Tel , Service support , Head CTA 10/06/21 21:20 IMPRESSION: Normal [place] without a demonstrated aneurysm or hemodynamically significant stenosis. Electronically Signed: Brenden Ellis MD at 22:39 EST , Service support , EKG Initial EKG: Attestation: I personally reviewed and interpreted this EKG as follows: Interpretation: No Acute Injury Pattern and Sinus Tachycardia (123) Prior EKG tracings: available for review Prior: Unchanged (10/19/2010) Discharge Plan Triage Chief Complaint: Fever ED Provider: Chace Segura Dx/Rx/DC Orders Clinical Impression: Headache, Fever Instructions: ED FUO Adult, ED Fever Control (Adult), ED, Migraine (Classical) Prescriptions: No Action cyclobenzaprine 10 MG tablet 10 mg PO TID RF: 0 estradiol 1 MG tablet 1 mg PO DAILY RF: 0 dicyclomine 20 MG tablet 20 mg PO TID RF: 0 gabapentin 300 MG capsule 300 mg PO BID RF: 0 lorazepam 1 MG tablet 1 mg PO DAILY RF: 0 hydroxychloroquine 200 MG tablet 200 mg PO DAILY RF: 0 zolpidem 10 MG tablet 10 mg PO PCHS RF: 0 duloxetine 60 MG capsule 60 mg PO DAILY RF: 0 Primary Care Provider: Michael Corona Referrals: Michael Corona MD [Primary Care Provider] - 5-7 Days Disposition Disposition: Home, Self Care
[2021-10-06] MEDS: 0.9% Normal Saline 1,000 ML 1000 ML IV (17:38)
[2021-10-06] MEDS: Ondansetron 4 MG/2 ML Vial IV (17:39)
[2021-10-06] MEDS: Metoclopramide 10 MG/2 ML Vial IV (17:39)
[2021-10-06] MEDS: DiphenhydrAMINE 50 MG/ML Syringe 25 MG IV (17:39)
[2021-10-06 17:43] LABS: Bacteria 0 SEEN /hpf (None Seen); Mucous, Urine 0 SEEN /hpf (<or=2+); Red Blood Cells-Urine 0 SEEN /hpf (0-5); Squamous Epithelial Cells - UA 0 SEEN /hpf (5-10); White Blood Cells 0 SEEN /hpf (0-5)
[2021-10-06 17:44] LABS: Absolute Lymphocyte Count 0.71 X10^3/uL (0.83-4.51); Absolute Neutrophil Count 6.8 X10^3/uL (2.0-7.7); Basophil# 0.03 X10^3/uL; Basophil% 0.4 % (0-1); Eosinophil# 0.14 X10^3/uL; Eosinophils% 1.7 % (0-5); Hematocrit 37.8 % (37-47); Hemoglobin 12.5 g/dL (12.0-15.0); Lymphocyte # 0.71 X10^3/ul (0.83-4.51); Lymphocyte % 8.5 % (19-41); Mean Corp Hgb Conc 33.1 g/dL (32-36); Mean Corpuscular Hgb 28.7 pg (27.0-32.0); Mean Corpuscular Volume 86.9 fL (81-99); Mean Platelet Vol. 9.1 fl (6.2-12.0); Monocyte# 0.71 X10^3/uL; Monocyte% 8.5 % (0-10); NRBC Flagged by Analyzer 0 % (0-5); Neutrophil # 6.76 X10^3/uL (2.7-7.7); Neutrophil % 80.7 % (47-70); Platelet Count 290 K/mm3 (150-450); RBC Distribution Width CV 13.2 % (11.6-14.6); RBC Distribution Width SD 41.8 fl (35.1-43.9); Red Blood Count 4.35 M/mm3 (4.2-5.4); White Blood Count 8.4 K/mm3 (4.4-11.0)
[2021-10-06 17:49] LABS: Partial Thromboplast Time 27.1 Seconds (24.1-36.2); Prothrombin Time (Protime)PT. 12.2 SECONDS (11.7-14.9)
[2021-10-06 17:55] LABS: ALB/GLOB Ratio 0.9 RATIO (0.9-2.4); AST(SGOT) 17 U/L (15-37); Alanine Aminotransfer ALT/SGPT 26 U/L (13-56); Albumin, Serum 3.9 g/dL (3.2-5.0); Alkaline Phosphatase 104 U/L (45-117); Anion Gap 6 (5-15); BUN 6 mg/dL (7-18); BUN/Creat Ratio 6.6 RATIO (10-20); Calcium,Total 9.5 mg/dL (8.5-10.1); Chloride 102 mmol/L (98-107); EST Glomerular Filtration Rate 69 mL/min (>60); Est Glom Filt Rate - Afr Amer 83 mL/min (>60); Estimated Creatinine Clearance 70.41 ml/min; Globulin 4.2 g/dL (2.2-4.2); Glucose 86 mg/dL (74-106); Potassium 3.9 mmol/L (3.5-5.1); Protein, Total 8.1 g/dL (6.4-8.2); Sodium Level 135 mmol/L (136-145); Troponin-I HS < 3 pg/mL (3.0-54.0)
[2021-10-06 17:55] LABS: Color, Urine Straw (Yellow); Glucose, Dipstick Normal (Normal); Ketone-Dipstick Negative (Negative); Leukocyte Esterase-Dipstick Negative /ul (Negative); Nitrite-Dipstick Negative (Negative); Occult Blood-Urine 10 /ul (Negative); Protein-Dipstick Negative (Negative); Specific Gravity, Urine 1.005 (1.002-1.030); Urine Bilirubin Dipstick Negative (Negative); Urine Clarity Clear (Clear); Urine Urobilinogen Normal (Normal)
[2021-10-06 17:58] LABS: Lactic Acid 2.2 mmol/L (0.4-1.9)
[2021-10-06] MEDS: Acetaminophen 500 MG Tablet 1000 MG PO (18:40)
[2021-10-06] MEDS: MethylPREDNISolone 125 MG/2 ML Vial 80 MG IV (20:22)
--- NOTE | 2021-10-06 21:20 | CT_ITS ---
STUDY: CTA OF THE BRAIN REASON FOR EXAM: Female, 56 years old. Subarachnoid hemorrhage RADIATION DOSAGE (If Supplied By Facility): CTDIvol = ( 17.65 ) mGy, DLP = ( 460.48 ) mGycm TECHNIQUE: CT angiography was performed with a multi-detector CT scanner. Data acquisition was obtained from the skull base through the vertex following intravenous administration of IV 100mL [id number]-[id number]. MIP images were reconstructed from the axial data set. Post-processing of the angiographic images was performed, with multiplanar reformation and 3D reconstruction. Individualized dose optimization techniques were used for this CT. COMPARISON: Noncontrast head CT dated October 06, 2021 FINDINGS: Normal bilateral petrous carotid arteries. Normal right cavernous carotid artery with a normal supraclinoid bifurcation. Normal left cavernous carotid artery with a normal supraclinoid bifurcation. Normal right A1 segments of the anterior cerebral artery. Normal left A1 segments of the anterior cerebral artery. Normal intact anterior communicating artery (ACOM). Normal bilateral A2 segments of the anterior cerebral arteries. Normal right M1 and M2 segments of the middle cerebral arteries, with a normal M1 bifurcation. Normal left M1 and M2 segments of the middle cerebral arteries, with a normal M1 bifurcation. Normal right posterior communicating artery (PCOM). Normal left posterior communicating artery (PCOM). There is a small atretic right vertebral artery with a dominant left vertebral artery. Normal basilar artery with a normal basilar bifurcation. The visualized bilateral superior cerebellar (SCA) arteries are normal. Normal bilateral P1, P2 and visualized P3 segments of the posterior cerebral arteries. There is no demonstrated aneurysm of the [place]. There is no demonstrated abnormality of the visualized brain. CT/CTA Head W/WO Contrast IMPRESSION: Normal [place] without a demonstrated aneurysm or hemodynamically significant stenosis. Electronically Signed: Brenden Ellis MD at 22:39 EST , Service support ,
[2021-10-06 21:34] LABS: Reflex Lactate? Y
[2021-10-06 22:21] LABS: Lactic Acid 0.9 mmol/L (0.4-1.9)
== END 2021-10-06 23:09 | disposition home or self-care (01) ==
PROVIDERS: Emergency Provider Emergency Medicine; PCP Family Medicine
DX: R50.9 Fever, unspecified (principal); R51.9 Headache, unspecified; M54.2 Cervicalgia; Z22.322 Carrier or suspected carrier of Methicillin resistant Staphylococcus aureus; M79.7 Fibromyalgia; M32.9 Systemic lupus erythematosus, unspecified; M35.01 Sjogren syndrome with keratoconjunctivitis; Z79.899 Other long term (current) drug therapy; R00.0 Tachycardia, unspecified; R06.02 Shortness of breath
CPT/HCPCS: 51702; 70450; 70496; 80053; 81001; 83605; 84484; 85025; 85610; 85730; 87040; 87426; 93005; 96361; 96374; 96375; 99285; J7030; Q9967; A4216; J2405

== ENCOUNTER → 2022-02-08 | Outpatient (CLI) | payer MEDICARE, BC, SELFPAY ==
[2022-02-08 20:18] LABS: M R Staph aureus DNA By PCR POSITIVE (Negative); Probe Check PASS; Staph aureus DNA By PCR POSITIVE (Negative)
== END | disposition home or self-care (01) ==
PROVIDERS: PCP Family Medicine; Referring Provider Podiatrist; Visit Provider Podiatrist
DX: L03.115 Cellulitis of right lower limb (principal)
CPT/HCPCS: 87070; 87077; 87186; 87205; 87640

== ENCOUNTER → 2022-02-15 | Outpatient (CLI) | payer MEDICARE, BC, SELFPAY ==
[2022-02-15 15:34] LABS: Absolute Lymphocyte Count 2.62 X10^3/uL (0.83-4.51); Basophil# 0.05 X10^3/uL; Basophil% 0.5 % (0-1); Eosinophil# 0.17 X10^3/uL; Eosinophils% 1.8 % (0-5); Hematocrit 37.5 % (37-47); Hemoglobin 11.9 g/dL (12.0-15.0); Lymphocyte # 2.62 X10^3/ul (0.83-4.51); Lymphocyte % 27.8 % (19-41); Mean Corp Hgb Conc 31.7 g/dL (32-36); Mean Corpuscular Hgb 26.9 pg (27.0-32.0); Mean Corpuscular Volume 84.7 fL (81-99); Mean Platelet Vol. 9.5 fl (6.2-12.0); Monocyte# 0.57 X10^3/uL; NRBC Flagged by Analyzer 0 % (0-5); Neutrophil # 5.99 X10^3/uL (2.7-7.7); Neutrophil % 63.6 % (47-70); Platelet Count 357 K/mm3 (150-450); RBC Distribution Width CV 12.8 % (11.6-14.6); RBC Distribution Width SD 39.3 fl (35.1-43.9); Red Blood Count 4.43 M/mm3 (4.2-5.4); White Blood Count 9.4 K/mm3 (4.4-11.0)
[2022-02-15 15:49] LABS: ALB/GLOB Ratio 0.7 RATIO (0.9-2.4); AST(SGOT) 9 U/L (15-37); Alanine Aminotransfer ALT/SGPT 16 U/L (13-56); Albumin, Serum 3.2 g/dL (3.2-5.0); Alkaline Phosphatase 112 U/L (45-117); Anion Gap 7 (5-15); BUN 12 mg/dL (7-18); BUN/Creat Ratio 17.2 RATIO (10-20); Calcium,Total 9.3 mg/dL (8.5-10.1); Chloride 104 mmol/L (98-107); EST Glomerular Filtration Rate 92 mL/min (>60); Est Glom Filt Rate - Afr Amer 112 mL/min (>60); Globulin 4.5 g/dL (2.2-4.2); Glucose 102 mg/dL (74-106); Potassium 3.7 mmol/L (3.5-5.1); Protein, Total 7.7 g/dL (6.4-8.2); Sodium Level 140 mmol/L (136-145)
== END | disposition home or self-care (01) ==
PROVIDERS: PCP Family Medicine; Referring Provider Podiatrist; Visit Provider Podiatrist
DX: L97.512 Non-pressure chronic ulcer of other part of right foot with fat layer exposed (principal); L97.322 Non-pressure chronic ulcer of left ankle with fat layer exposed
CPT/HCPCS: 36415; 80053; 85025

== ENCOUNTER → 2022-02-28 | Outpatient (CLI) | payer MEDICARE, BC, SELFPAY ==
--- NOTE | 2022-02-28 13:59 | ART_ITS ---
Reason For Study: Ulcer Procedure A bilateral lower extremity continuous wave Doppler with analog waveform analysis,segmental pressures,and ankle brachial indexes without exercise. Left Segmental Pressures Left brachial= 134mmHg. Left posterior tibial artery = 147mmHg. Left dorsalis pedis artery = 162mmHg. Left digit = 136 mmHg. Right Segmental Pressures Right brachial= 137mmHg. Right posterior tibial artery = 164mmHg. Right dorsalis pedis artery = 157mmHg. Right digit = 124 mmHg. Indices The right ankle brachial index by the posterior tibial artery is 1.20. The right ankle brachial index by the dorsalis pedis is 1.15. The right digital-brachial index is 0.91. The left ankle brachial index by the posterior tibial artery is 1.07. The left ankle brachial index by the dorsalis pedis is 1.18. The left digital-brachial index is 0.99. VL/Lower Ext Art Exam w/o Exercis Interpretation Summary Triphasic Doppler waveforms are noted at ankle level bilaterally. Pulse-volume recordings appear satisfactory at all levels bilaterally, including low thigh, calf, ankle, and d igital levels. Resting ankle-brachial indices are normal bilaterally. Digital-brachial indices are normal bilaterally. There is no evidence of significant arterial occlusive disease in the lower ext remities bilaterally. Ordering Physician: Ansley Gutierrez Referring Physician: Ansley Gutierrez Performed By: Elmira Ohara RDCS/RVT
== END | disposition home or self-care (01) ==
LOC: CVS 13:57
PROVIDERS: PCP Family Medicine; Referring Provider Podiatrist; Visit Provider Podiatrist
DX: I73.89 Other specified peripheral vascular diseases (principal); L97.522 Non-pressure chronic ulcer of other part of left foot with fat layer exposed; L97.312 Non-pressure chronic ulcer of right ankle with fat layer exposed
CPT/HCPCS: 93923

== ENCOUNTER 2022-03-02 08:00 | Outpatient (RCR) | payer MEDICARE, BC, SELFPAY ==
[2022-02-16 08:24] VITALS: BP 131/82; PULSE 101; RESP 18; TEMP 36.3; BMI 37.2
--- NOTE | 2022-02-16 08:57 | PCM.WC.HP ---
History of Present Illness Date of Service: 02/16/22 Chief Complaint: Left heel ulcer and second toe right foot ulcer History of Wound: This pleasant 56-year-old female with significant past medical history of lupus, history of panic attack, depression, history of delayed healing, hyperlipidemia, irritable bowel syndrome, memory loss, restless leg syndrome, and obstructive sleep apnea is here for follow-up of left heel ulcer. She denies fever, chill, nausea, vomiting. She has developed multiple bilateral foot ulcers about 6 months ago and recently presented [facility] evaluation [facility]; she was referred to the wound care center. She was seen by her PCP and was treated in the past with antibiotics. She has been applying neosporin. She continues to walk on the ulcers. She reports she has anxiety and it is very difficult for her to seek medical care at times. Progress of Wound: stable bilateral [facility] Medical History (Updated 02/16/22 @ 21:[address] Ansley Gutierrez, DPJosemanuel) Fibromyalgia Lupus Sjogren syndrome with dental involvement Sjogren syndrome with keratoconjunctivitis Sjogren syndrome with peripheral nervous system involvement Home Medications cyclobenzaprine 10 mg PO TID 04/15/20 [History Last Taken Unknown] dicyclomine 20 mg PO TID 04/15/20 [History Last Taken Unknown] duloxetine 60 mg PO DAILY 04/15/20 [History Last Taken Unknown] estradiol 1 mg PO DAILY 04/15/20 [History Last Taken Unknown] gabapentin 300 mg PO BID 04/15/20 [History Last Taken Unknown] hydroxychloroquine 200 mg PO DAILY 04/15/20 [History Last Taken Unknown] lorazepam 1 mg PO DAILY 04/15/20 [History Last Taken Unknown] zolpidem 10 mg PO PCHS 04/15/20 [History Last Taken Unknown] doxycycline hyclate 100 mg PO BID #14 tab 02/16/22 [Rx Last Taken Unknown] Allergy/AdvReac Type Severity Reaction Status Date / Time Gadolinium-MRI Contrast Allergy Intermediate Hives Verified 10/06/21 14:33 Medium [CONTRAST] amoxicillin [From Augmentin] Allergy Rash Verified 10/06/21 14:33 clavulanic acid Allergy Rash Verified 10/06/21 14:33 [From Augmentin] Iodinated Contrast Media [CT] Allergy Rash Verified 12/29/21 14:33 morphine Allergy Hives Verified 10/06/21 14:33 sertraline [From Zoloft] Allergy Swelling Verified 10/06/21 14:33 Surgical History (Updated 10/06/21 @ 17:[address] Chace Segura DO) History of hysterectomy Hx of Achilles tendon repair Hx of cholecystectomy Social History Smoking Status: Never smoker Vital Signs Vital Signs Vital Signs: 02/16/22 08:24 Temperature 97.3 F L Temperature Source Temporal Pulse Rate 101 H Respiratory Rate 18 Blood Pressure 131/82 H Blood Pressure Mean 98 Blood Pressure Source Monitor Blood Pressure Position Semi-Fowlers Blood Pressure Location Left Arm Weight Weight: 111.13 kg Body Mass Index (BMI) 37.2 Physical Exam Const alert and oriented x3 General Appearance: cooperative HEENT normocephalic Extremity Extremity Narrative: No calf tenderness Diminished pulses Muscle wasting noted General Extremity: edema and no tenderness to palpation of joints or extremities; Negative for cyanosis Skin Skin Narrative: no purulence, no streaking, no odor, no infection granular base ulcer without maceration, necrosis or deep tissue exposure to left heel and second to and also the right plantar medial forefoot no bogginess or fluctuance on palpation bilateral. General Skin Exam: Negative for erythema Neuro Neuro Narrative: lack of normal epicritic sensation via light touch is consistent with neuropathy status Psych cooperative and affect normal Debridement Note Debridement Note Wound debrided: left heel, left second toe, right plantar medial foot Wound Grade/Stage: Type of Debridement: Excisional debridement Anesthesia Used: 4% Lidocaine Solution Depth: in the subcutaneous layer Percentage of wound debrided: 100 Instrument Used: #15 blade Tissue Removed: fibrous, devitalized subcutaneous, biofilm, slough Severity: Fat Layer Exposed Amount of bleeding with debridement: Mild Bleeding Controlled with: Pressure Patient tolerated procedure: Patient tolerated procedure well Post-Debridement Measurements and Additional Note: Post-Debridement Measurements/Treatment - Nurse 1 - General Ulcer Assessment Start: 02/16/22 08:14 Freq: Status: Active Protocol: OLGA Activity Type Activity Date Activity User E-Sign Co-Sign Detail Recorded Client Recorded Date Recorded By Document 02/16/22 08:24 GABRIEL [id number] 02/16/22 08:27 RB 02/16/22 08:24 - Today's Visit Information Type of service Initial Visit Arrival Mode Ambulatory Transfer Assistance None Patient Identification Verified (Name & Yes ) Patient Requires Transmission-Based No Precautions Height and Weight Height 5 ft 8 in Weight 111.13 kg Weight in Pounds 245.0 lbs Body Mass Index (BMI) 37.2 BMI Classification Obese BSA - Derek 2.23 Vital Signs Temperature (97.8 F-99.1 F) 97.3 F L Temperature Source Temporal Pulse Rate (60-100) 101 H Pulse Location Monitor Respiratory Rate (12-18) 18 Respiratory rate source Observation Blood Pressure (90/60-120/80) 131/82 H Blood Pressure Mean 98 Source Monitor Position Semi-Fowlers Blood Pressure Location Left Arm History Since Last Visit- (Skip if this is Patient's initial visit) Have you changed medications since your No last visit? Any new allergies or adverse reactions No Had a fall/change in ADL's that may No increase risk of falls Signs or symptoms of abuse and/or No neglect since last visit Have you been in the hospital since your No last visit? Has dressing in place as prescribed Yes Has compression in place as prescribed No Has offloadiing in place as prescribed Yes Experienced any changes in pain level or No management Left Footwear Regular Shoe Right Footwear Regular Shoe Pain Scale: 0-10 Numeric Is Patient Pain Free? Yes Teaching: Wound Center *Welcome to the Wound Center -Person Taught Patient -Teaching Method Discussion, Demonstration -Response to teaching Verbalize understanding - Nurse 1 - General Ulcer Measurement Start: 02/16/22 08:14 Freq: Status: Active Protocol: Activity Type Activity Date Activity User E-Sign Co-Sign Detail Recorded Client Recorded Date Recorded By Document 02/16/22 08:14 [id number] 02/16/22 08:24 02/16/22 08:14 Wound Center Nurse 1 9. R plantar -Combined with other wound No -Current Size (cm) - Length 0.7 -Current Size (cm) - Width 0.5 -Current Size (cm) - Depth 0.3 -Total Square Cm 0.35 -Tunneling No -Undermining/Tunneling No -Circular Undermining No -Exudate Amt Medium -Exudate Type Serosanguineous -Wound Margin Distinct, Outline Attached -Granulation Amt Medium (34-66%) -Granulation Quality [place],Red -Slough/Fibrin Yes -Necrosis Amt Medium (34-66%) -Necrotic Tissue Type Adherent Slough -Structure Exposed N/A -Texture (Cecelia-wound Skin Appearance) Assessed,Callus -Moisture (Cecelia-wound Skin Appearance) Assessed -Color (Cecelia-wound Skin Appearance) Assessed -Temperature (Cecelia-wound Skin No Abnormality Appearance) (Pt Warm) -Tenderness on Palpation (Cecelia-wound No Skin Appearance) -Ulcer Cleansing Wound Cleanser -Foul Odor after Cleansing No -Anesthetic Used 5% Lidocaine Gel 8. L heel -Combined with other wound No -Current Size (cm) - Length 2.5 -Current Size (cm) - Width 3 -Current Size (cm) - Depth 0.6 -Total Square Cm 7.5 -Photo Taken Yes -Tunneling No -Undermining/Tunneling Yes -Undermining/Tunneling Starts (O'clock 7 ) -Undermining/Tunneling Ends (O'clock) 2 -Maximum Distance (cm) 0.4 -Circular Undermining No -Exudate Amt Medium -Exudate Type Serosanguineous -Wound Margin Distinct, Outline Attached -Granulation Amt Medium (34-66%) -Granulation Quality Red -Slough/Fibrin Yes -Necrosis Amt Small (1-33%) -Necrotic Tissue Type Adherent Slough -Structure Exposed N/A -Texture (Cecelia-wound Skin Appearance) Assessed,Callus -Moisture (Cecelia-wound Skin Appearance) Assessed -Color (Cecelia-wound Skin Appearance) Not Assessed -Temperature (Cecelia-wound Skin No Abnormality Appearance) (Pt Warm) -Tenderness on Palpation (Cecelia-wound No Skin Appearance) -Ulcer Cleansing Wound Cleanser -Foul Odor after Cleansing No -Anesthetic Used 5% Lidocaine Gel 7. L 2nd toe -Combined with other wound No -Current Size (cm) - Length 1.3 -Current Size (cm) - Width 1.3 -Current Size (cm) - Depth 0.2 -Total Square Cm 1.69 -Photo Taken Yes -Tunneling No -Undermining/Tunneling No -Exudate Amt Medium -Exudate Type Serosanguineous -Wound Margin Distinct, Outline Attached -Granulation Amt Medium (34-66%) -Granulation Quality Fanwood -Slough/Fibrin Yes -Necrosis Amt Large (67-100%) -Necrotic Tissue Type Adherent Slough -Structure Exposed N/A -Texture (Cecelia-wound Skin Appearance) Assessed,Callus -Moisture (Cceelia-wound Skin Appearance) Assessed -Color (Cecelia-wound Skin Appearance) Assessed -Temperature (Cecelia-wound Skin No Abnormality Appearance) (Pt Warm) -Tenderness on Palpation (Cecelia-wound No Skin Appearance) -Ulcer Cleansing Wound Cleanser -Foul Odor after Cleansing No -Anesthetic Used 5% Lidocaine Gel WC - Nurse 2 - General Ulcer CM Notes Start: 02/16/22 08:14 Freq: Status: Active Protocol: Activity Type Activity Date Activity User E-Sign Co-Sign Detail Recorded Client Recorded Date Recorded By Document 02/16/22 08:37 STEPHANIE [id number] 02/16/22 08:43 STEPHANIE 02/16/22 08:37 Wound Center Nurse 2 9. R plantar -Time 08:37 -Correct Patient Yes -Correct Side, Site, Position Yes -Correct Procedure Yes -Procedure Performed Yes -Type of Procedure Debridement -Clinical Debridement Subcutaneous -Tissue Removed Subcutaneous -Post Debridement (cm) - Length 0.9 -Post Debridement (cm) - Width 0.5 -Post Debridement (cm) - Depth 0.2 -Total Square (Post) (cm) 0.45 -Area of Debridement (cm) - Length 0.9 -Area of Debridement (cm) - Width 0.5 -Total Square (Area) (cm) 0.45 -Tunneling No -Undermining/Tunneling No -Circular Undermining No -Wound/Ulcer Outcome Amputation -Ulcer Cleansing Rinsed/ Irrigated with Saline -Foul Odor after Cleansing No -Bioengineered Tissue No -Bleeding Controlled with Pressure -Treatment Response Procedure Tolerated Well -Offloading Yes -Type of Offloading Darco Shoe - Right -Debridement - Subq, 1st 20sq cm No 8. L heel -Time 08:38 -Correct Patient Yes -Correct Side, Site, Position Yes -Correct Procedure Yes -Procedure Performed Yes -Type of Procedure Debridement -Clinical Debridement Subcutaneous -Tissue Removed Subcutaneous -Post Debridement (cm) - Length 2.6 -Post Debridement (cm) - Width 3.0 -Post Debridement (cm) - Depth 0.4 -Total Square (Post) (cm) 7.80 -Area of Debridement (cm) - Length 2.6 -Area of Debridement (cm) - Width 3.0 -Total Square (Area) (cm) 7.80 -Tunneling No -Undermining/Tunneling No -Circular Undermining No -Wound/Ulcer Outcome Not Healed -Ulcer Cleansing Rinsed/ Irrigated with Saline -Foul Odor after Cleansing No -Bioengineered Tissue No -Bleeding Controlled with Pressure -Treatment Response Procedure Tolerated Well -Offloading Yes -Type of Offloading Darco Shoe - Left -Debridement - Subq, 1st 20sq cm No 7. L 2nd toe -Time 08:38 -Correct Patient Yes -Correct Side, Site, Position Yes -Correct Procedure Yes -Procedure Performed Yes -Type of Procedure Debridement -Clinical Debridement Subcutaneous -Tissue Removed Subcutaneous -Post Debridement (cm) - Length 1.4 -Post Debridement (cm) - Width 1.6 -Post Debridement (cm) - Depth 0.2 -Total Square (Post) (cm) 2.24 -Area of Debridement (cm) - Length 1.4 -Area of Debridement (cm) - Width 1.6 -Total Square (Area) (cm) 2.24 -Tunneling No -Undermining/Tunneling No -Circular Undermining No -Wound/Ulcer Outcome Not Healed -Ulcer Cleansing Rinsed/ Irrigated with Saline -Foul Odor after Cleansing No -Bioengineered Tissue No -Bleeding Controlled with Pressure -Treatment Response Procedure Tolerated Well -Offloading Yes -Type of Offloading Darco Shoe - Left -Debridement - Subq, 1st 20sq cm Yes Pain Scale: 0-10 Numeric Is Patient Pain Free? Yes Assessment/Plan Assessment/Plan (1) Lupus (systemic lupus erythematosus): CODE(S): M32.9 - Systemic lupus erythematosus, unspecified (2) Ulcer of left foot with fat layer exposed: CODE(S): L97.522 - Non-pressure chronic ulcer of other part of left foot with fat layer exposed (3) Delayed wound healing: CODE(S): T14.8XXD - Other injury of unspecified body region, subsequent encounter (4) MRSA (methicillin resistant staph aureus) culture positive: CODE(S): Z22.322 - Carrier or suspected carrier of Methicillin resistant Staphylococcus aureus (5) Ulcer of right foot with fat layer exposed: CODE(S): L97.512 - Non-pressure chronic ulcer of other part of right foot with fat layer exposed PLAN: I reviewed and discussed her case. Subcutaneous excisional debridement was performed as noted in the clinical panel bilateral. Diagnostic data was also reviewed. The following recommendations were made. Change dressing daily with aquacel ag Wash with soap and water offloading: To maintain strict nonweightbearing status with the knee roller, left and heel weightbear right in surgical shoe. Total contact cast will be applied when she returns with a jinriksha driver and when she is ready to proceed after the completion of the antibiotics and full resolution of cellulitis. Infection: resolution signs noted. 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 Doxy refill provided. nutrition: She was advised to maintain a balanced whole food diet with adequate protein and nutrients to optimize healing. To resume Yosvany supplementation use. Host factors. Neuropathy complicates her case. To monitor close due to inability to sensate as normal. She was also advised to avoid prednisone use and will also hold the Plaquenil at this time unless she has an intense flareup. This was previously reviewed verbally with Dr. Pratt. She also has a calcaneus gait with prior surgical intervention including a tendon transfer which is compromised with a fall in the early postoperative setting. We previously discussed options to surgically alleviate her calcaneus gait including retightening the Achilles tendon or other posterior leg muscles. Updated vascular (arterial) and doppler with reflux (venous) was ordered to assess for any abnormalities. This is scheduled within the next two weeks. Diagnostic data: Her bilateral foot xrays (three views) were [facility] from [facility] from 02/08/2022 without soft tissue emphysema, osseous destruction or foreign body. Chip fracture to first metatarsal phalangeal joint area of right foot noted. Labs reviewed from 02/15/22 with wbc 9.4, no renal dysfunction or other gross abnormalities. Note: [employer] speech recognition surgery manager software was used to create portions of this document. Sound-alike and misspelled words, as well as other surgery manager errors may be contained in the documentation. 21 minutes was spent on this encounter including diagnostic data review, face to face encounter, education, care coordination, and medical documentation. All of her questions were answered. She will return to clinic in one week or call sooner if questions or concerns.
[2022-02-23 08:46] VITALS: BP 127/77; PULSE 78; RESP 18; TEMP 36.1; BMI 37.2
--- NOTE | 2022-02-23 10:55 | PN.PCM_ITS ---
History of Present Illness Date of Service: 02/23/22 Chief Complaint: Left heel ulcer and second toe right foot ulcer History of Wound: This pleasant 56-year-old female with significant past medical history of lupus, history of panic attack, depression, history of delayed healing, hyperlipidemia, irritable bowel syndrome, memory loss, restless leg syndrome, and obstructive sleep apnea is here for follow-up of left heel ulcer. She denies fever, chill, nausea, vomiting. She has developed multiple bilateral foot ulcers about 6 months ago and recently presented [facility]; she was referred to the wound care center. She was seen by her PCP and was treated in the past with antibiotics. She has been applying neosporin. She continues to walk on the ulcers. She reports she has anxiety and it is very difficult for her to seek medical care at times. She reports continued redness to second toe Progress of Wound: stable bilateral Objective Data Objective Data Vital Signs: Vital Signs Temp Pulse Resp BP 97 F L 78 18 127/77 H 02/23/22 08:46 02/23/22 08:46 02/23/22 08:46 02/23/22 08:46 Weight: 111.13 kg Body Mass Index (BMI) 37.2 Physical Exam Const alert and oriented x3 General Appearance: cooperative HEENT normocephalic Extremity Extremity Narrative: No calf tenderness Diminished pulses Muscle wasting noted General Extremity: edema and no tenderness to palpation of joints or extremities; Negative for cyanosis Skin Skin Narrative: no purulence, no streaking, no odor, no infection granular base ulcer without maceration, necrosis or deep tissue exposure to left heel and second toe (mild diffuse erythema and bulbous change) and also the right plantar medial forefoot no bogginess or fluctuance on palpation bilateral. General Skin Exam: Negative for erythema Neuro Neuro Narrative: lack of normal epicritic sensation via light touch is consistent with neuropathy status Psych cooperative and affect normal Debridement Note Debridement Note Wound debrided: left 2nd toe, left heel, right foot Wound Grade/Stage: Type of Debridement: Excisional debridement Anesthesia Used: 4% Lidocaine Solution Depth: in the subcutaneous layer Percentage of wound debrided: 100 Instrument Used: #15 blade Tissue Removed: fibrous, devitalized subcutaneous, biofilm, slough Severity: Fat Layer Exposed Amount of bleeding with debridement: Mild Bleeding Controlled with: Pressure Patient tolerated procedure: Patient tolerated procedure well Post-Debridement Measurements and Additional Note: Post-Debridement Measurements/Treatment WC - Nurse 1 - General Ulcer Assessment Start: 02/16/22 08:14 Freq: Status: Active Protocol: OLGA Activity Type Activity Date Activity User E-Sign Co-Sign Detail Recorded Client Recorded Date Recorded By Document 02/16/22 08:24 RB [id number] 02/16/22 08:27 RB Document 02/23/22 08:46 RB [id number] 02/23/22 08:59 RB 02/16/22 02/23/22 08:24 08:46 - Today's Visit Information Type of service Initial Visit Follow-up Visit (Physician/SHOT BAGGER ) Arrival Mode Ambulatory Ambulatory Transfer Assistance None None Patient Identification Verified (Name & Yes Yes ) Patient Requires Transmission-Based No No Precautions Height and Weight Height 5 ft 8 in Weight 111.13 kg Weight in Pounds 245.0 lbs Body Mass Index (BMI) 37.2 37.2 BMI Classification Obese Obese BSA - Derek 2.23 Vital Signs Temperature (97.8 F-99.1 F) 97.3 F L 97 F L Temperature Source Temporal Temporal Pulse Rate (60-100) 101 H 78 Pulse Location Monitor Monitor Respiratory Rate (12-18) 18 18 Respiratory rate source Observation Observation Blood Pressure (90/60-120/80) 131/82 H 127/77 H Blood Pressure Mean (mm Hg) 98 93 Source Monitor Monitor Position Semi-Fowlers Semi-Fowlers Blood Pressure Location Left Arm Left Arm History Since Last Visit- (Skip if this is Patient's initial visit) Have you changed medications since your No No last visit? Any new allergies or adverse reactions No No Had a fall/change in ADL's that may No No increase risk of falls Signs or symptoms of abuse and/or No No neglect since last visit Have you been in the hospital since your No No last visit? Has dressing in place as prescribed Yes Yes Has compression in place as prescribed No No Has offloadiing in place as prescribed Yes No Experienced any changes in pain level or No No management Left Footwear Regular Shoe Surgical Shoe with pressure relief insole Right Footwear Regular Shoe Surgical Shoe with pressure relief insole Pain Scale: 0-10 Numeric Is Patient Pain Free? Yes Yes Teaching: Wound Center *Welcome to the Wound Center -Person Taught Patient -Teaching Method Discussion, Demonstration -Response to teaching Verbalize understanding WC - Nurse 1 - General Ulcer Measurement Start: 02/16/22 08:14 Freq: Status: Active Protocol: Activity Type Activity Date Activity User E-Sign Co-Sign Detail Recorded Client Recorded Date Recorded By Document 02/16/22 08:14 RB [id number] 02/16/22 08:24 RB Document 02/23/22 08:46 RB [id number] 02/23/22 08:59 RB 02/16/22 02/23/22 08:14 08:46 Wound Center Nurse 1 9. R plantar -Combined with other wound No No -Current Size (cm) - Length 0.7 0.8 -Current Size (cm) - Width 0.5 0.5 -Current Size (cm) - Depth 0.3 0.3 -Total Square Cm 0.35 0.40 -Tunneling No No -Undermining/Tunneling No No -Circular Undermining No No -Exudate Amt Medium Medium -Exudate Type Serosanguineous Serosanguineous -Wound Margin Distinct, Distinct, Outline Outline Attached Attached -Granulation Amt Medium (34-66%) Medium (34-66%) -Granulation Quality [place],Red [place] -Slough/Fibrin Yes Yes -Necrosis Amt Medium (34-66%) Small (1-33%) -Necrotic Tissue Type Adherent Slough Adherent Slough -Structure Exposed N/A N/A -Texture (Cecelia-wound Skin Appearance) Assessed,Callus Assessed,Callus -Moisture (Cecelia-wound Skin Appearance) Assessed Assessed -Color (Cecelia-wound Skin Appearance) Assessed Assessed -Temperature (Cecelia-wound Skin No Abnormality No Abnormality Appearance) (Pt Warm) (Pt Warm) -Tenderness on Palpation (Cecelia-wound No No Skin Appearance) -Ulcer Cleansing Wound Cleanser Wound Cleanser -Foul Odor after Cleansing No No -Anesthetic Used 5% Lidocaine 5% Lidocaine Gel Gel 8. L heel -Combined with other wound No No -Current Size (cm) - Length 2.5 2.5 -Current Size (cm) - Width 3 2.5 -Current Size (cm) - Depth 0.6 0.5 -Total Square Cm 7.5 6.25 -Photo Taken Yes -Tunneling No No -Undermining/Tunneling Yes No -Undermining/Tunneling Starts (O'clock 7 ) -Undermining/Tunneling Ends (O'clock) 2 -Maximum Distance (cm) 0.4 -Circular Undermining No No -Exudate Amt Medium Large -Exudate Type Serosanguineous Serosanguineous -Wound Margin Distinct, Distinct, Outline Outline Attached Attached -Granulation Amt Medium (34-66%) Medium (34-66%) -Granulation Quality [place] -Slough/Fibrin Yes Yes -Necrosis Amt Small (1-33%) Small (1-33%) -Necrotic Tissue Type Adherent Slough Adherent Slough -Structure Exposed N/A N/A -Texture (Cecelia-wound Skin Appearance) Assessed,Callus Assessed,Callus -Moisture (Cecelia-wound Skin Appearance) Assessed Assessed -Color (Cecelia-wound Skin Appearance) Not Assessed Assessed -Temperature (Cecelia-wound Skin No Abnormality No Abnormality Appearance) (Pt Warm) (Pt Warm) -Tenderness on Palpation (Cecelia-wound No No Skin Appearance) -Ulcer Cleansing Wound Cleanser Wound Cleanser -Foul Odor after Cleansing No No -Anesthetic Used 5% Lidocaine 5% Lidocaine Gel Gel 7. L 2nd toe -Combined with other wound No No -Current Size (cm) - Length 1.3 0.7 -Current Size (cm) - Width 1.3 1 -Current Size (cm) - Depth 0.2 0.5 -Total Square Cm 1.69 0.7 -Photo Taken Yes -Tunneling No No -Undermining/Tunneling No No -Circular Undermining No -Exudate Amt Medium -Exudate Type Serosanguineous -Wound Margin Distinct, Outline Attached -Granulation Amt Medium (34-66%) Medium (34-66%) -Granulation Quality [place] -Slough/Fibrin Yes Yes -Necrosis Amt Large (67-100%) Small (1-33%) -Necrotic Tissue Type Adherent Slough Adherent Slough -Structure Exposed N/A N/A -Texture (Cecelia-wound Skin Appearance) Assessed,Callus Assessed, Localized Edema -Moisture (Cecelia-wound Skin Appearance) Assessed Assessed -Color (Cecelia-wound Skin Appearance) Assessed Assessed, Erythema -Temperature (Cecelia-wound Skin No Abnormality No Abnormality Appearance) (Pt Warm) (Pt Warm) -Tenderness on Palpation (Cecelia-wound No No Skin Appearance) -Ulcer Cleansing Wound Cleanser Wound Cleanser -Foul Odor after Cleansing No No -Anesthetic Used 5% Lidocaine 5% Lidocaine Gel Gel -Wound Comment(s) eythema and edema noted on L 2nd toe WC - Nurse 2 - General Ulcer CM Notes Start: 02/16/22 08:14 Freq: Status: Active Protocol: Activity Type Activity Date Activity User E-Sign Co-Sign Detail Recorded Client Recorded Date Recorded By Document 02/16/22 08:37 [id number] 02/16/22 08:43 Document 02/23/22 09:07 [id number] 02/23/22 09:14 02/16/22 02/23/22 08:37 09:07 Wound Center Nurse 2 9. R plantar -Time 08:37 09:09 -Correct Patient Yes Yes -Correct Side, Site, Position Yes Yes -Correct Procedure Yes Yes -Procedure Performed Yes Yes -Type of Procedure Debridement Debridement -Clinical Debridement Subcutaneous Subcutaneous -Tissue Removed Subcutaneous Subcutaneous -Post Debridement (cm) - Length 0.9 0.8 -Post Debridement (cm) - Width 0.5 0.5 -Post Debridement (cm) - Depth 0.2 0.1 -Total Square (Post) (cm) 0.45 0.40 -Area of Debridement (cm) - Length 0.9 0.8 -Area of Debridement (cm) - Width 0.5 0.5 -Total Square (Area) (cm) 0.45 0.40 -Tunneling No No -Undermining/Tunneling No No -Circular Undermining No No -Wound/Ulcer Outcome Amputation Not Healed -Ulcer Cleansing Rinsed/ Rinsed/ Irrigated with Irrigated with Saline Saline -Foul Odor after Cleansing No No -Bioengineered Tissue No No -Bleeding Controlled with Pressure Pressure -Treatment Response Procedure Procedure Tolerated Well Tolerated Well -Offloading Yes Yes -Type of Offloading [place] Shoe - Surgical Shoe Right -Debridement - Subq, 1st 20sq cm No No 8. L heel -Time 08:38 09:09 -Correct Patient Yes Yes -Correct Side, Site, Position Yes Yes -Correct Procedure Yes Yes -Procedure Performed Yes Yes -Type of Procedure Debridement Debridement -Clinical Debridement Subcutaneous Subcutaneous -Tissue Removed Subcutaneous Subcutaneous -Post Debridement (cm) - Length 2.6 2.6 -Post Debridement (cm) - Width 3.0 3.0 -Post Debridement (cm) - Depth 0.4 0.3 -Total Square (Post) (cm) 7.80 7.80 -Area of Debridement (cm) - Length 2.6 2.6 -Area of Debridement (cm) - Width 3.0 3.0 -Total Square (Area) (cm) 7.80 7.80 -Tunneling No No -Undermining/Tunneling No No -Circular Undermining No No -Wound/Ulcer Outcome Not Healed Not Healed -Ulcer Cleansing Rinsed/ Rinsed/ Irrigated with Irrigated with Saline Saline -Foul Odor after Cleansing No No -Bioengineered Tissue No No -Bleeding Controlled with Pressure Pressure -Treatment Response Procedure Procedure Tolerated Well Tolerated Well -Offloading Yes Yes -Type of Offloading [place] Shoe - Surgical Shoe Left -Debridement - Subq, 1st 20sq cm No No 7. L 2nd toe -Time 08:38 09:10 -Correct Patient Yes Yes -Correct Side, Site, Position Yes Yes -Correct Procedure Yes Yes -Procedure Performed Yes Yes -Type of Procedure Debridement Debridement -Clinical Debridement Subcutaneous Subcutaneous -Tissue Removed Subcutaneous Subcutaneous -Post Debridement (cm) - Length 1.4 1.4 -Post Debridement (cm) - Width 1.6 1.1 -Post Debridement (cm) - Depth 0.2 0.7 -Total Square (Post) (cm) 2.24 1.54 -Area of Debridement (cm) - Length 1.4 1.4 -Area of Debridement (cm) - Width 1.6 1.1 -Total Square (Area) (cm) 2.24 1.54 -Tunneling No No -Undermining/Tunneling No No -Circular Undermining No No -Wound/Ulcer Outcome Not Healed Not Healed -Ulcer Cleansing Rinsed/ Rinsed/ Irrigated with Irrigated with Saline Saline -Foul Odor after Cleansing No No -Bioengineered Tissue No No -Bleeding Controlled with Pressure Pressure -Treatment Response Procedure Procedure Tolerated Well Tolerated Well -Offloading Yes Yes -Type of Offloading [place] Shoe - Surgical Shoe Left -Debridement - Subq, 1st 20sq cm Yes Yes Pain Scale: 0-10 Numeric Is Patient Pain Free? Yes Yes WC - Nurse 3 - General Ulcer D/C NN Start: 02/16/22 08:14 Freq: Status: Active Protocol: Activity Type Activity Date Activity User E-Sign Co-Sign Detail Recorded Client Recorded Date Recorded By Document 02/16/22 09:14 RB [id number] 02/16/22 09:15 RB Document 02/23/22 09:32 RB [id number] 02/23/22 09:34 RB 02/16/22 02/23/22 09:14 09:32 Wound Care Nurse 3 9. R plantar -Ulcer Cleansing Rinsed/ Rinsed/ Irrigated with Irrigated with Saline Saline -Primary Dressing Applied Aquacel AG 4x4 Promogran Neida Matter -Primary Dressing Covered/Secured with Dry Gauze,Dry Dry Gauze,Dry Gauze & Roll Gauze & Roll Gauze,Secured Gauze,Secured with Tape with Tape -Aquacel AG 4x4 1 -Promogran Neida Matter 1 8. L heel -Other Dressing aquacel ag saline moisytened gauze and ABD pad into nurses hat -Primary Dressing Covered/Secured with Dry Gauze & Dry Gauze,Dry Roll Gauze, Gauze & Roll Secured with Gauze,Secured Tape with Tape 7. L 2nd toe -Ulcer Cleansing Rinsed/ Rinsed/ Irrigated with Irrigated with Saline Saline -Other Dressing aquacel ag saline [id number] gauze -Primary Dressing Covered/Secured with Dry Gauze & Dry Gauze,Dry Roll Gauze, Gauze & Roll Secured with Gauze,Secured Tape with Tape Right -Tubular Bandage Single Layer -Size of Tubigrip Used Size E -Size E ($) 1 Left -Tubular Bandage Single Layer -Size of Tubigrip Used Size E -Size E ($) 1 Treatment Response Procedure Procedure Tolerated Well Tolerated Well Pain Scale: 0-10 Numeric Is Patient Pain Free? Yes Yes Teaching: Wound Center Dressing Your Wound -Person Taught Patient -Teaching Method Discussion, Demonstration -Response to teaching Verbalize understanding WC - Visit Discharge Discharge Condition Stable Stable Ambulatory Status Ambulatory Cane Transportation Private Auto Private Auto Medication Reconcilliation completed & No No provided to patient/care provider Clinical Summary of Care Provided Yes Yes Assessment/Plan Assessment/Plan (1) Lupus (systemic lupus erythematosus): CODE(S): M32.9 - Systemic lupus erythematosus, unspecified (2) Ulcer of left foot with fat layer exposed: CODE(S): L97.522 - Non-pressure chronic ulcer of other part of left foot with fat layer exposed (3) Delayed wound healing: CODE(S): T14.8XXD - Other injury of unspecified body region, subsequent encounter (4) MRSA (methicillin resistant staph aureus) culture positive: CODE(S): Z22.322 - Carrier or suspected carrier of Methicillin resistant Staphylococcus aureus (5) Ulcer of right foot with fat layer exposed: CODE(S): L97.512 - Non-pressure chronic ulcer of other part of right foot with fat layer exposed (6) Cellulitis of right lower limb: CODE(S): L03.115 - Cellulitis of right lower limb PLAN: I reviewed and discussed her case. Subcutaneous excisional debridement was performed as noted in the clinical panel bilateral. Diagnostic data was also reviewed. The following recommendations were made. Change dressing daily with aquacel ag Wash with soap and water offloading: To maintain strict nonweightbearing status with the knee roller, left and heel weightbear right in surgical shoe. Total contact cast will be applied when she returns with a skip load driver and when she is ready to proceed after the completion of the antibiotics and full resolution of cellulitis.MRSA noted. refill for doxycycline was sent to [facility]. Advised on proper and safe use. Infection: resolution signs noted. 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 Concern is deeper infection involvement due to bulbous toe appearance. nutrition: She was advised to maintain a balanced whole food diet with adequate protein and nutrients to optimize healing. To resume Yosvany supplementation use. Host factors. Neuropathy complicates her case. To monitor close due to inability to sensate as normal. She was also advised to avoid prednisone use and will also hold the Plaquenil at this time unless she has an intense flareup. This was previously reviewed verbally with Dr. Pratt. She also has a calcaneus gait with prior surgical intervention including a tendon transfer which is compromised with a fall in the early postoperative setting. We previously discussed options to surgically alleviate her calcaneus gait including retightening the Achilles tendon or other posterior leg muscles. Updated vascular (arterial) and doppler with reflux (venous) was ordered to assess for any abnormalities. This is scheduled and pending. Diagnostic data: Her bilateral foot xrays (three views) were [facility] from [facility] from 02/08/2022 without soft tissue emphysema, osseous destruction or foreign body. Chip fracture to first metatarsal phalangeal joint area of right foot noted. Labs reviewed from 02/15/22 with wbc 9.4, no renal dysfunction or other gross abnormalities. Note: [employer] speech recognition cooker casing software was used to create portions of this document. Sound-alike and misspelled words, as well as other cooker casing errors may be contained in the documentation. 21 minutes was spent on this encounter including diagnostic data review, face to face encounter, education, care coordination, and medical documentation. All of her questions were answered. She will return to clinic in one week or call sooner if questions or concerns.
[2022-03-02 08:19] VITALS: BP 129/75; PULSE 106; RESP 20; TEMP 36.4; BMI 37.2
--- NOTE | 2022-03-02 11:16 | PCM.WC.PN ---
History of Present Illness Date of Service: 03/02/22 Chief Complaint: Left heel ulcer and second toe right foot ulcer History of Wound: This pleasant 56-year-old female with significant past medical history of lupus, history of panic attack, depression, history of delayed healing, hyperlipidemia, irritable bowel syndrome, memory loss, restless leg syndrome, and obstructive sleep apnea is here for follow-up of left heel ulcer. She denies fever, chill, nausea, vomiting. She continues to walk on the ulcers because she cannot use a knee roller due to her knee arthritis. She has a walker at home and has not tried to use it yet. She reports she has anxiety and it is very difficult for her to seek medical care at times. She reports continued redness to second toe. She takes doxycycline as advised. She needs a refill. She is scheduled to see infectious disease specialist next week. She is not aware that she has a new ulcer to her left third toe Progress of Wound: stable right foot and left heel Continued infection status of the left second toe New ulcer left third toe Objective Data Objective Data Vital Signs: Vital Signs Temp Pulse Resp BP 97.5 F L 106 H 20 H 129/75 H 03/02/22 08:19 03/02/22 08:19 03/02/22 08:19 03/02/22 08:19 Weight: 111.13 kg Body Mass Index (BMI) 37.2 Physical Exam Const alert and oriented x3 General Appearance: cooperative HEENT normocephalic Extremity Extremity Narrative: No calf tenderness Diminished pulses Muscle wasting noted General Extremity: edema and no tenderness to palpation of joints or extremities; Negative for cyanosis Skin Skin Narrative: no purulence, no streaking, no odor, no infection granular base ulcer without maceration, necrosis or deep tissue exposure to left heel and second toe (mild diffuse erythema and bulbous change continued and this does not extend past the metatarsophalangeal joint level) and also the right plantar medial forefoot New skin discontinuity to the distal left third toe no bogginess or fluctuance on palpation bilateral. Toenails left second and third are incurvated thickened dystrophic and near approximation with the ulcers General Skin Exam: Negative for erythema Neuro Neuro Narrative: lack of normal epicritic sensation via light touch is consistent with neuropathy status Psych cooperative and affect normal Debridement Note Debridement Note Wound debrided: right medial forefoot, left heel, 2nd toe, 3rd toe Wound Grade/Stage: Type of Debridement: Excisional debridement Anesthesia Used: 4% Lidocaine Solution Depth: in the subcutaneous layer Percentage of wound debrided: 100 Instrument Used: #15 blade Tissue Removed: fibrous, devitalized subcutaneous, biofilm, slough Severity: Fat Layer Exposed Amount of bleeding with debridement: Mild Bleeding Controlled with: Pressure Patient tolerated procedure: Patient tolerated procedure well Post-Debridement Measurements and Additional Note: Post-Debridement Measurements/Treatment - Nurse 1 - General Ulcer Assessment Start: 02/16/22 08:14 Freq: Status: Active Protocol: OLGA Activity Type Activity Date Activity User E-Sign Co-Sign Detail Recorded Client Recorded Date Recorded By Document 02/16/22 08:24 RB [id number] 02/16/22 08:27 RB Document 02/23/22 08:46 RB [id number] 02/23/22 08:59 RB Document 03/02/22 08:19 DL [id number] 03/02/22 08:31 DL 02/16/22 02/23/22 03/02/22 08:24 08:46 08:19 - Today's Visit Information Type of service Initial Visit Follow-up Visit Follow-up Visit (Physician/INSURANCE COMPLIANCE ANALYST (Physician/INSURANCE COMPLIANCE ANALYST ) ) Arrival Mode Ambulatory Ambulatory Ambulatory Transfer Assistance None None None Patient Identification Verified (Name & Yes Yes Yes ) Patient Requires Transmission-Based No No No Precautions Height and Weight Height 5 ft 8 in Weight 111.13 kg Weight in Pounds 245.0 lbs Body Mass Index (BMI) 37.2 37.2 37.2 BMI Classification Obese Obese Obese BSA - Derek 2.23 Vital Signs Temperature (97.8 F-99.1 F) 97.3 F L 97 F L 97.5 F L Temperature Source Temporal Temporal Temporal Pulse Rate (60-100) 101 H 78 106 H Pulse Location Monitor Monitor Monitor Respiratory Rate (12-18) 18 18 20 H Respiratory rate source Observation Observation Observation Blood Pressure (90/60-120/80) 131/82 H 127/77 H 129/75 H Blood Pressure Mean (mm Hg) 98 93 93 Source Monitor Monitor Monitor Position Semi-Fowlers Semi-Fowlers Blood Pressure Location Left Arm Left Arm History Since Last Visit- (Skip if this is Patient's initial visit) Have you changed medications since your No No No last visit? Any new allergies or adverse reactions No No No Had a fall/change in ADL's that may No No No increase risk of falls Signs or symptoms of abuse and/or No No No neglect since last visit Have you been in the hospital since your No No No last visit? Has dressing in place as prescribed Yes Yes Yes Has compression in place as prescribed No No N/A Has offloadiing in place as prescribed Yes No Yes Experienced any changes in pain level or No No management Left Footwear Regular Shoe Surgical Shoe with pressure relief insole Right Footwear Regular Shoe Surgical Shoe with pressure relief insole Pain Scale: 0-10 Numeric Is Patient Pain Free? Yes Yes Yes Teaching: Wound Center *Welcome to the Wound Center -Person Taught Patient -Teaching Method Discussion, Demonstration -Response to teaching Verbalize understanding WC - Nurse 1 - General Ulcer Measurement Start: 02/16/22 08:14 Freq: Status: Active Protocol: Activity Type Activity Date Activity User E-Sign Co-Sign Detail Recorded Client Recorded Date Recorded By Document 02/16/22 08:14 RB [id number] 02/16/22 08:24 RB Document 02/23/22 08:46 RB [id number] 02/23/22 08:59 RB Document 03/02/22 08:19 DL [id number] 03/02/22 08:31 DL 02/16/22 02/23/22 03/02/22 08:14 08:46 08:19 Wound Center Nurse 1 #10 L 3rd toe -Current Size (cm) - Length 0.5 -Current Size (cm) - Width 0.7 -Current Size (cm) - Depth 0.2 -Total Square Cm 0.35 -Photo Taken Yes -Exudate Amt Small -Exudate Type Serosanguineous -Wound Margin Thickened -Granulation Amt Small (1-33%) -Granulation Quality Pale,[place] -Necrosis Amt Small (1-33%) -Necrotic Tissue Type Adherent Slough -Structure Exposed N/A -Texture (Cecelia-wound Skin Appearance) Callus -Moisture (Cecelia-wound Skin Appearance) Dry/Scaly -Color (Cecelia-wound Skin Appearance) No Abnormality -Temperature (Cecelia-wound Skin No Abnormality Appearance) (Pt Warm) -Tenderness on Palpation (Cecelia-wound No Skin Appearance) -Ulcer Cleansing Soap and Water -Foul Odor after Cleansing No -Anesthetic Used 5% Lidocaine Gel 9. R plantar -Combined with other wound No No -Current Size (cm) - Length 0.7 0.8 0.6 -Current Size (cm) - Width 0.5 0.5 0.3 -Current Size (cm) - Depth 0.3 0.3 0.3 -Total Square Cm 0.35 0.40 0.18 -Photo Taken No -Tunneling No No -Undermining/Tunneling No No -Maximum Distance #2 (cm) 0.2 -Circular Undermining No No Yes -Exudate Amt Medium Medium None Present -Exudate Type Serosanguineous Serosanguineous -Wound Margin Distinct, Distinct, Thickened Outline Outline Attached Attached -Granulation Amt Medium (34-66%) Medium (34-66%) Medium (34-66%) -Granulation Quality [place],Red [place] -Slough/Fibrin Yes Yes -Necrosis Amt Medium (34-66%) Small (1-33%) Medium (34-66%) -Necrotic Tissue Type Adherent Slough Adherent Slough Adherent Slough -Structure Exposed N/A N/A N/A -Texture (Cecelia-wound Skin Appearance) Assessed,Callus Assessed,Callus Callus,Scarring -Moisture (Cecelia-wound Skin Appearance) Assessed Assessed Dry/Scaly -Color (Cecelia-wound Skin Appearance) Assessed Assessed No Abnormality -Temperature (Cecelia-wound Skin No Abnormality No Abnormality No Abnormality Appearance) (Pt Warm) (Pt Warm) (Pt Warm) -Tenderness on Palpation (Cecelia-wound No No No Skin Appearance) -Ulcer Cleansing Wound Cleanser Wound Cleanser Soap and Water -Foul Odor after Cleansing No No No -Anesthetic Used 5% Lidocaine 5% Lidocaine 5% Lidocaine Gel Gel Gel 8. L heel -Combined with other wound No No -Current Size (cm) - Length 2.5 2.5 2.7 -Current Size (cm) - Width 3 2.5 2.8 -Current Size (cm) - Depth 0.6 0.5 1 -Total Square Cm 7.5 6.25 7.56 -Photo Taken Yes No -Tunneling No No -Undermining/Tunneling Yes No -Undermining/Tunneling Starts (O'clock 7 ) -Undermining/Tunneling Ends (O'clock) 2 -Maximum Distance (cm) 0.4 -Circular Undermining No No -Exudate Amt Medium Large Small -Exudate Type Serosanguineous Serosanguineous -Wound Margin Distinct, Distinct, Thickened Outline Outline Attached Attached -Granulation Amt Medium (34-66%) Medium (34-66%) Large (67-100%) -Granulation Quality Red [place] Red -Slough/Fibrin Yes Yes -Necrosis Amt Small (1-33%) Small (1-33%) Small (1-33%) -Necrotic Tissue Type Adherent Slough Adherent Slough Adherent Slough -Structure Exposed N/A N/A N/A -Texture (Cecelia-wound Skin Appearance) Assessed,Callus Assessed,Callus Callus,Scarring -Moisture (Cecelia-wound Skin Appearance) Assessed Assessed Dry/Scaly -Color (Cecelia-wound Skin Appearance) Not Assessed Assessed No Abnormality -Temperature (Cecelia-wound Skin No Abnormality No Abnormality No Abnormality Appearance) (Pt Warm) (Pt Warm) (Pt Warm) -Tenderness on Palpation (Cecelia-wound No No No Skin Appearance) -Ulcer Cleansing Wound Cleanser Wound Cleanser Soap and Water -Foul Odor after Cleansing No No No -Anesthetic Used 5% Lidocaine 5% Lidocaine 5% Lidocaine Gel Gel Gel 7. L 2nd toe -Combined with other wound No No -Current Size (cm) - Length 1.3 0.7 0.8 -Current Size (cm) - Width 1.3 1 2.2 -Current Size (cm) - Depth 0.2 0.5 0.6 -Total Square Cm 1.69 0.7 1.76 -Photo Taken Yes No -Tunneling No No -Undermining/Tunneling No No -Circular Undermining No -Exudate Amt Medium Small -Exudate Type Serosanguineous Serosanguineous -Wound Margin Distinct, Thickened Outline Attached -Granulation Amt Medium (34-66%) Medium (34-66%) Small (1-33%) -Granulation Quality [place],Red -Slough/Fibrin Yes Yes -Necrosis Amt Large (67-100%) Small (1-33%) Small (1-33%) -Necrotic Tissue Type Adherent Slough Adherent Slough Adherent Slough -Structure Exposed N/A N/A N/A -Texture (Cecelia-wound Skin Appearance) Assessed,Callus Assessed, Callus, Localized Edema Localized Edema ,Scarring -Moisture (Cecelia-wound Skin Appearance) Assessed Assessed Dry/Scaly -Color (Cecelia-wound Skin Appearance) Assessed Assessed, Erythema Erythema -Temperature (Cecelia-wound Skin No Abnormality No Abnormality No Abnormality Appearance) (Pt Warm) (Pt Warm) (Pt Warm) -Tenderness on Palpation (Cecelia-wound No No No Skin Appearance) -Ulcer Cleansing Wound Cleanser Wound Cleanser Soap and Water -Foul Odor after Cleansing No No No -Anesthetic Used 5% Lidocaine 5% Lidocaine 5% Lidocaine Gel Gel Gel -Wound Comment(s) eythema and edema noted on L 2nd toe WC - Nurse 2 - General Ulcer CM Notes Start: 02/16/22 08:14 Freq: Status: Active Protocol: Activity Type Activity Date Activity User E-Sign Co-Sign Detail Recorded Client Recorded Date Recorded By Document 02/16/22 08:37 [id number] 02/16/22 08:43 Document 02/23/22 09:07 [id number] 02/23/22 09:14 Document 03/02/22 09:01 [id number] 03/02/22 09:07 02/16/22 02/23/22 03/02/22 08:37 09:07 09:01 Wound Center Nurse 2 #10 L 3rd toe -Time 09:03 -Correct Patient Yes -Correct Side, Site, Position Yes -Correct Procedure Yes -Procedure Performed Yes -Type of Procedure Debridement -Clinical Debridement Subcutaneous -Tissue Removed Subcutaneous -Post Debridement (cm) - Length 0.6 -Post Debridement (cm) - Width 0.7 -Post Debridement (cm) - Depth 0.2 -Total Square (Post) (cm) 0.42 -Area of Debridement (cm) - Length 0.6 -Area of Debridement (cm) - Width 0.7 -Total Square (Area) (cm) 0.42 -Tunneling No -Undermining/Tunneling No -Circular Undermining No -Wound/Ulcer Outcome Not Healed -Ulcer Cleansing Rinsed/ Irrigated with Saline -Foul Odor after Cleansing No -Bioengineered Tissue No -Bleeding Controlled with Pressure -Treatment Response Procedure Tolerated Well -Offloading Yes -Type of Offloading Surgical Shoe -Assistive Device(s) Walker -Debridement - Subq, 1st 20sq cm No 9. R plantar -Time 08:37 09:09 09:05 -Correct Patient Yes Yes Yes -Correct Side, Site, Position Yes Yes Yes -Correct Procedure Yes Yes Yes -Procedure Performed Yes Yes Yes -Type of Procedure Debridement Debridement Debridement -Clinical Debridement Subcutaneous Subcutaneous Subcutaneous -Tissue Removed Subcutaneous Subcutaneous Subcutaneous -Post Debridement (cm) - Length 0.9 0.8 0.6 -Post Debridement (cm) - Width 0.5 0.5 0.4 -Post Debridement (cm) - Depth 0.2 0.1 0.3 -Total Square (Post) (cm) 0.45 0.40 0.24 -Area of Debridement (cm) - Length 0.9 0.8 0.6 -Area of Debridement (cm) - Width 0.5 0.5 0.4 -Total Square (Area) (cm) 0.45 0.40 0.24 -Tunneling No No No -Undermining/Tunneling No No No -Circular Undermining No No No -Wound/Ulcer Outcome Amputation Not Healed Not Healed -Ulcer Cleansing Rinsed/ Rinsed/ Rinsed/ Irrigated with Irrigated with Irrigated with Saline Saline Saline -Foul Odor after Cleansing No No No -Bioengineered Tissue No No No -Bleeding Controlled with Pressure Pressure Pressure -Treatment Response Procedure Procedure Procedure Tolerated Well Tolerated Well Tolerated Well -Offloading Yes Yes Yes -Type of Offloading Darco Shoe - Surgical Shoe Surgical Shoe Right -Assistive Device(s) Walker -Debridement - Subq, 1st 20sq cm No No No 8. L heel -Time 08:38 09:09 09:06 -Correct Patient Yes Yes Yes -Correct Side, Site, Position Yes Yes Yes -Correct Procedure Yes Yes Yes -Procedure Performed Yes Yes Yes -Type of Procedure Debridement Debridement Debridement -Clinical Debridement Subcutaneous Subcutaneous Subcutaneous -Tissue Removed Subcutaneous Subcutaneous Subcutaneous -Post Debridement (cm) - Length 2.6 2.6 2.8 -Post Debridement (cm) - Width 3.0 3.0 2.8 -Post Debridement (cm) - Depth 0.4 0.3 1.0 -Total Square (Post) (cm) 7.80 7.80 7.84 -Area of Debridement (cm) - Length 2.6 2.6 2.8 -Area of Debridement (cm) - Width 3.0 3.0 2.8 -Total Square (Area) (cm) 7.80 7.80 7.84 -Tunneling No No No -Undermining/Tunneling No No No -Circular Undermining No No No -Wound/Ulcer Outcome Not Healed Not Healed Not Healed -Ulcer Cleansing Rinsed/ Rinsed/ Rinsed/ Irrigated with Irrigated with Irrigated with Saline Saline Saline -Foul Odor after Cleansing No No No -Bioengineered Tissue No No No -Bleeding Controlled with Pressure Pressure Pressure -Treatment Response Procedure Procedure Procedure Tolerated Well Tolerated Well Tolerated Well -Offloading Yes Yes Yes -Type of Offloading Darco Shoe - Surgical Shoe Surgical Shoe Left -Assistive Device(s) Walker -Debridement - Subq, 1st 20sq cm No No No 7. L 2nd toe -Time 08:38 09:10 09:06 -Correct Patient Yes Yes Yes -Correct Side, Site, Position Yes Yes Yes -Correct Procedure Yes Yes Yes -Procedure Performed Yes Yes Yes -Type of Procedure Debridement Debridement Debridement -Clinical Debridement Subcutaneous Subcutaneous Subcutaneous -Tissue Removed Subcutaneous Subcutaneous Subcutaneous -Post Debridement (cm) - Length 1.4 1.4 0.8 -Post Debridement (cm) - Width 1.6 1.1 2.3 -Post Debridement (cm) - Depth 0.2 0.7 0.6 -Total Square (Post) (cm) 2.24 1.54 1.84 -Area of Debridement (cm) - Length 1.4 1.4 0.8 -Area of Debridement (cm) - Width 1.6 1.1 2.3 -Total Square (Area) (cm) 2.24 1.54 1.84 -Tunneling No No No -Undermining/Tunneling No No No -Circular Undermining No No No -Wound/Ulcer Outcome Not Healed Not Healed Not Healed -Ulcer Cleansing Rinsed/ Rinsed/ Rinsed/ Irrigated with Irrigated with Irrigated with Saline Saline Saline -Foul Odor after Cleansing No No No -Bioengineered Tissue No No No -Bleeding Controlled with Pressure Pressure Pressure -Treatment Response Procedure Procedure Procedure Tolerated Well Tolerated Well Tolerated Well -Offloading Yes Yes Yes -Type of Offloading Darco Shoe - Surgical Shoe Surgical Shoe Left -Debridement - Subq, 1st 20sq cm Yes Yes Yes Pain Scale: 0-10 Numeric Is Patient Pain Free? Yes Yes Yes WC - Nurse 3 - General Ulcer D/C NN Start: 02/16/22 08:14 Freq: Status: Active Protocol: Activity Type Activity Date Activity User E-Sign Co-Sign Detail Recorded Client Recorded Date Recorded By Document 02/16/22 09:14 RB [id number] 02/16/22 09:15 RB Document 02/23/22 09:32 RB [id number] 02/23/22 09:34 RB Document 03/02/22 09:13 RB [id number] 03/02/22 09:15 RB 02/16/22 02/23/22 03/02/22 09:14 09:32 09:13 Wound Care Nurse 3 #10 L 3rd toe -Ulcer Cleansing Rinsed/ Irrigated with Saline -Other Dressing saline moistened gauze -Primary Dressing Covered/Secured with Dry Gauze,Dry Gauze & Roll Gauze,Secured with Tape 9. R plantar -Ulcer Cleansing Rinsed/ Rinsed/ Rinsed/ Irrigated with Irrigated with Irrigated with Saline Saline Saline -Primary Dressing Applied Aquacel AG 4x4 Promogran Promogran Neida Matter Neida Matter -Primary Dressing Covered/Secured with Dry Gauze,Dry Dry Gauze,Dry Dry Gauze,Dry Gauze & Roll Gauze & Roll Gauze & Roll Gauze,Secured Gauze,Secured Gauze,Secured with Tape with Tape with Tape -Aquacel AG 4x4 1 -Promogran Neida Matter 1 1 8. L heel -Ulcer Cleansing Rinsed/ Irrigated with Saline -Other Dressing aquacel ag saline saline moisytened moistened gauze gauze and ABD pad into nurses hat -Primary Dressing Covered/Secured with Dry Gauze & Dry Gauze,Dry Dry Gauze,Dry Roll Gauze, Gauze & Roll Gauze & Roll Secured with Gauze,Secured Gauze,Secured Tape with Tape with Tape 7. L 2nd toe -Ulcer Cleansing Rinsed/ Rinsed/ Irrigated with Irrigated with Saline Saline -Other Dressing aquacel ag saline saline [id number] moistened gauze gauze -Primary Dressing Covered/Secured with Dry Gauze & Dry Gauze,Dry Dry Gauze,Dry Roll Gauze, Gauze & Roll Gauze & Roll Secured with Gauze,Secured Gauze,Secured Tape with Tape with Tape Right -Tubular Bandage Single Layer -Size of Tubigrip Used Size E -Size E ($) 1 Left -Tubular Bandage Single Layer -Size of Tubigrip Used Size E -Size E ($) 1 Treatment Response Procedure Procedure Procedure Tolerated Well Tolerated Well Tolerated Well Pain Scale: 0-10 Numeric Is Patient Pain Free? Yes Yes Yes Teaching: Wound Center Dressing Your Wound -Person Taught Patient -Teaching Method Discussion, Demonstration -Response to teaching Verbalize understanding WC - Visit Discharge Discharge Condition Stable Stable Stable Ambulatory Status Ambulatory Cane Ambulatory Transportation Private Auto Private Auto Private Auto Medication Reconcilliation completed & No No No provided to patient/care provider Clinical Summary of Care Provided Yes Yes Yes Assessment/Plan Assessment/Plan (1) Ulcer of right foot with fat layer exposed: CODE(S): L97.512 - Non-pressure chronic ulcer of other part of right foot with fat layer exposed (2) Lupus (systemic lupus erythematosus): CODE(S): M32.9 - Systemic lupus erythematosus, unspecified (3) Ulcer of left foot with fat layer exposed: CODE(S): L97.522 - Non-pressure chronic ulcer of other part of left foot with fat layer exposed (4) MRSA (methicillin resistant staph aureus) culture positive: CODE(S): Z22.322 - Carrier or suspected carrier of Methicillin resistant Staphylococcus aureus (5) Cellulitis of left lower limb: CODE(S): L03.116 - Cellulitis of left lower limb (6) Delayed wound healing: CODE(S): T14.8XXD - Other injury of unspecified body region, subsequent encounter PLAN: I reviewed and discussed her case. Subcutaneous excisional debridement was performed as noted in the clinical panel bilateral. Diagnostic data was also reviewed. The following recommendations were made. Change dressing daily with aquacel ag or Neida to the right and Dakin wet-to-dry to the left toes and heel Wash with soap and water offloading: To maintain strict nonweightbearing status with the knee roller, left and heel weightbear right in surgical shoe. Total contact cast will be applied when she returns with a boat driver and when she is ready to proceed after the completion of the antibiotics and full resolution of cellulitis.she is not able to use a knee roller due to knee pain. She has a walker at home and she will try to use this Infection: culture from wound with MRSA. Concern is deeper infection involvement due to bulbous toe appearance including potential osteomyelitis. refill for doxycycline was sent to [facility]. Advised on proper and safe use. She has an appointment with infectious disease specialist scheduled for next week. nutrition: She was advised to maintain a balanced whole food diet with adequate protein and nutrients to optimize healing. To resume Yosvany supplementation use. Host factors. Neuropathy complicates her case. To monitor close due to inability to sensate as normal. She was also advised to avoid prednisone use and will also hold the Plaquenil at this time unless she has an intense flareup. This was previously reviewed verbally with Dr. Pratt. She also has a calcaneus gait with prior surgical intervention including a tendon transfer which is compromised with a fall in the early postoperative setting. We previously discussed options to surgically alleviate her calcaneus gait including retightening the Achilles tendon or other posterior leg muscles. Updated vascular (arterial) and doppler with reflux (venous) was ordered to assess for any abnormalities. This is scheduled and pending. No arterial disease or occlusions are suspected. This was discussed today. Diagnostic data: Her bilateral foot xrays (three views) were reviewed from [facility] center from 02/08/2022 without soft tissue emphysema, osseous destruction or foreign body. Chip fracture to first metatarsal phalangeal joint area of right foot noted. Labs reviewed from 02/15/22 with wbc 9.4, no renal dysfunction or other gross abnormalities. Toenails of the left second and third were reduced to avoid wound contamination and additional pressure at the sensitive sites. This was done with a sterile nail nipper. Note: [employer] speech recognition application packaging consultant software was used to create portions of this document. Sound-alike and misspelled words, as well as other application packaging consultant errors may be contained in the documentation. The medical decision making level is moderate. There is noted moderate risk of morbidity after considering this treatment plan and diagnostic data. Considerations were given to prescription management, decisions regarding surgical options, or social determinants of health. The problems addressed require a moderate decision making level which includes one or more chronic illnesses (w/ exacerbation, progression, or side effects), two or more stable chronic illnesses, one undiagnosed new problem w/ uncertain prognosis, one acute illness with systemic symptoms, or one acute complicated injury.
== END 2022-03-08 23:59 | disposition home or self-care (01) ==
LOC: WC 08:00
PROVIDERS: PCP Family Medicine; Visit Provider Podiatrist
DX: L97.512 Non-pressure chronic ulcer of other part of right foot with fat layer exposed (principal); L97.422 Non-pressure chronic ulcer of left heel and midfoot with fat layer exposed; L97.522 Non-pressure chronic ulcer of other part of left foot with fat layer exposed; M32.9 Systemic lupus erythematosus, unspecified; M35.0C Sjogren syndrome with dental involvement; M35.01 Sjogren syndrome with keratoconjunctivitis; M35.06 Sjogren syndrome with peripheral nervous system involvement; F41.0 Panic disorder [episodic paroxysmal anxiety]; E78.5 Hyperlipidemia, unspecified; M17.10 Unilateral primary osteoarthritis, unspecified knee; L03.115 Cellulitis of right lower limb; Z86.14 Personal history of Methicillin resistant Staphylococcus aureus infection; M79.7 Fibromyalgia; L03.116 Cellulitis of left lower limb; F32.A Depression, unspecified
CPT/HCPCS: 11042; 99213; G0463

== ENCOUNTER 2022-04-06 08:00 | Outpatient (RCR) | payer MEDICARE, BC, SELFPAY ==
[2022-03-09 01:12] VITALS: BP 129/75; PULSE 106; RESP 20; TEMP 36.4; BMI 37.2
[2022-03-09 13:55] VITALS: BP 139/83; PULSE 110; RESP 20; TEMP 36.3; BMI 37.2
--- NOTE | 2022-03-09 14:51 | PCM.WC.PN ---
History of Present Illness Date of Service: 03/09/22 Chief Complaint: Left heel ulcer, second toe, and third toe right foot ulcer History of Wound: This pleasant 56-year-old female with significant past medical history of lupus, history of panic attack, depression, history of delayed healing, hyperlipidemia, irritable bowel syndrome, memory loss, restless leg syndrome, and obstructive sleep apnea is here for follow-up of left heel ulcer. She denies fever, chill, nausea, vomiting. She continues to walk on the ulcers because she cannot use a knee roller due to her knee arthritis. She is trying to get a cortisone injection within the next week. She has a walker at home and has not tried to use it yet. She presents today with a cane. She also uses a surgical shoe bilateral. She reports she has anxiety and it is very difficult for her to seek medical care at times. She reports continued redness to second toe that is slightly decreased since she has been taking doxycycline as advised. She is scheduled to see Dr. Reyes with infectious disease this afternoon as well to the concern of potential early bone involvement on the toe. She is tearful today. Progress of Wound: Stable right foot and left heel and third toe Concerned of deep tissue involvement to left second toe Objective Data Objective Data Vital Signs: Vital Signs Temp Pulse Resp BP 97.3 F L 110 H 20 H 139/83 H 03/09/22 13:55 03/09/22 13:55 03/09/22 13:55 03/09/22 13:55 Weight: 111.13 kg Body Mass Index (BMI) 37.2 Physical Exam Const alert and oriented x3 General Appearance: cooperative HEENT normocephalic Extremity Extremity Narrative: No calf tenderness Diminished pulses Muscle wasting noted General Extremity: edema and no tenderness to palpation of joints or extremities; Negative for cyanosis Skin Skin Narrative: no purulence, no streaking, no odor, no infection granular base ulcer without maceration, necrosis or deep tissue exposure to left heel and second toe (mild diffuse erythema and bulbous change continued and this does not extend past the metatarsophalangeal joint level) and also the right plantar medial forefoot skin discontinuity to the distal left third toe granular base and stable no bogginess or fluctuance on palpation bilateral. General Skin Exam: Negative for erythema Neuro Neuro Narrative: lack of normal epicritic sensation via light touch is consistent with neuropathy status Psych cooperative and affect normal Debridement Note Debridement Note Wound debrided: right medial foot, left heel, left third toe, left second toe Wound Grade/Stage: Type of Debridement: Excisional debridement Anesthesia Used: 4% Lidocaine Solution Depth: in the subcutaneous layer Percentage of wound debrided: 100 Instrument Used: #15 blade and Forceps Tissue Removed: fibrous, devitalized subcutaneous, biofilm, slough, bone (L2 toe only) Severity: Necrosis of Bone (left 2nd toe only) Amount of bleeding with debridement: Mild Bleeding Controlled with: Pressure Patient tolerated procedure: Patient tolerated procedure well Post-Debridement Measurements and Additional Note: Post-Debridement Measurements/Treatment - Nurse 1 - General Ulcer Assessment Start: 03/09/22 13:55 Freq: Status: Active Protocol: OLGA Activity Type Activity Date Activity User E-Sign Co-Sign Detail Recorded Client Recorded Date Recorded By Document 03/09/22 13:55 DL [id number] 03/09/22 14:05 DL 03/09/22 13:55 WC - Today's Visit Information Type of service Follow-up Visit (Physician/AEROPHYSICIST ) Arrival Mode Ambulatory Transfer Assistance None Patient Identification Verified (Name & Yes ) Patient Requires Transmission-Based No Precautions Height and Weight Body Mass Index (BMI) 37.2 BMI Classification Obese Vital Signs Temperature (97.8 F-99.1 F) 97.3 F L Temperature Source Temporal Pulse Rate (60-100) 110 H Pulse Location Monitor Respiratory Rate (12-18) 20 H Blood Pressure (90/60-120/80) 139/83 H Blood Pressure Mean (mm Hg) 101 Source Monitor History Since Last Visit- (Skip if this is Patient's initial visit) Have you changed medications since your No last visit? Any new allergies or adverse reactions No Had a fall/change in ADL's that may No increase risk of falls Signs or symptoms of abuse and/or No neglect since last visit Have you been in the hospital since your No last visit? Has dressing in place as prescribed Yes Has compression in place as prescribed N/A Has offloadiing in place as prescribed Yes Experienced any changes in pain level or No management Right Footwear Surgical Shoe with pressure relief insole Pain Scale: 0-10 Numeric Is Patient Pain Free? Yes - Nurse 1 - General Ulcer Measurement Start: 03/09/22 13:55 Freq: Status: Active Protocol: Activity Type Activity Date Activity User E-Sign Co-Sign Detail Recorded Client Recorded Date Recorded By Document 03/09/22 13:55 DL [id number] 03/09/22 14:05 DL 03/09/22 13:55 Wound Center Nurse 1 #10 L 3rd toe -Current Size (cm) - Length 0.9 -Current Size (cm) - Width 0.8 -Current Size (cm) - Depth 0.2 -Total Square Cm 0.72 -Photo Taken No -Exudate Amt Medium -Exudate Type Serosanguineous -Wound Margin Thickened -Granulation Amt Small (1-33%) -Granulation Quality [place] -Necrosis Amt Small (1-33%) -Necrotic Tissue Type Adherent Slough 9. R plantar -Current Size (cm) - Length 0.8 -Current Size (cm) - Width 0.4 -Current Size (cm) - Depth 0.3 -Total Square Cm 0.32 -Photo Taken No -Undermining/Tunneling Starts (O'clock 8 ) -Undermining/Tunneling Ends (O'clock) 12 -Maximum Distance (cm) 0.3 -Exudate Amt Small -Exudate Type Serosanguineous -Granulation Amt Small (1-33%) -Granulation Quality Red -Necrosis Amt Small (1-33%) -Necrotic Tissue Type Adherent Slough -Structure Exposed N/A -Texture (Cecelia-wound Skin Appearance) Callus,Scarring -Moisture (Cecelia-wound Skin Appearance) No Abnormality -Color (Cecelia-wound Skin Appearance) No Abnormality -Temperature (Cecelia-wound Skin No Abnormality Appearance) (Pt Warm) -Tenderness on Palpation (Cecelia-wound No Skin Appearance) -Ulcer Cleansing Soap and Water -Foul Odor after Cleansing No -Anesthetic Used 5% Lidocaine Gel 8. L heel -Current Size (cm) - Length 3.4 -Current Size (cm) - Width 2.8 -Current Size (cm) - Depth 0.4 -Total Square Cm 9.52 -Photo Taken No -Undermining/Tunneling Starts (O'clock 8 ) -Undermining/Tunneling Ends (O'clock) 1 -Maximum Distance (cm) 0.3 -Exudate Amt Small -Exudate Type Serosanguineous -Wound Margin Thickened -Granulation Amt Large (67-100%) -Granulation Quality Red -Necrosis Amt Small (1-33%) -Necrotic Tissue Type Adherent Slough -Texture (Cecelia-wound Skin Appearance) Callus -Moisture (Cecelia-wound Skin Appearance) No Abnormality -Color (Cecelia-wound Skin Appearance) No Abnormality -Temperature (Cecelia-wound Skin No Abnormality Appearance) (Pt Warm) -Tenderness on Palpation (Cecelia-wound No Skin Appearance) -Ulcer Cleansing Soap and Water -Foul Odor after Cleansing No -Anesthetic Used 5% Lidocaine Gel 7. L 2nd toe -Current Size (cm) - Length 0.5 -Current Size (cm) - Width 0.9 -Current Size (cm) - Depth 0.3 -Total Square Cm 0.45 -Photo Taken No -Exudate Amt Small -Exudate Type Serosanguineous -Wound Margin Thickened -Granulation Amt Large (67-100%) -Granulation Quality Pale -Necrosis Amt Small (1-33%) -Necrotic Tissue Type Adherent Slough -Structure Exposed Bone,N/A -Texture (Cecelia-wound Skin Appearance) Callus,Scarring -Moisture (Cecelia-wound Skin Appearance) Dry/Scaly -Color (Cecelia-wound Skin Appearance) No Abnormality -Temperature (Cecelia-wound Skin No Abnormality Appearance) (Pt Warm) -Tenderness on Palpation (Cecelia-wound No Skin Appearance) -Ulcer Cleansing Soap and Water -Foul Odor after Cleansing No -Anesthetic Used 5% Lidocaine Gel WC - Nurse 2 - General Ulcer CM Notes Start: 03/09/22 13:55 Freq: Status: Active Protocol: Activity Type Activity Date Activity User E-Sign Co-Sign Detail Recorded Client Recorded Date Recorded By Document 03/09/22 14:16 STEPHANIE [id number] 03/09/22 14:21 JF Edit Result 03/09/22 14:16 JF (1) [id number] 03/09/22 14:22 JF (1) #10 L 3rd toe - Clinical Debridement Subcutaneous => Bone - Tissue Removed Subcutaneous => Biofilm - Debridement - Bone, 1st 20sq cm => Yes 03/09/22 14:16 Wound Center Nurse 2 #10 L 3rd toe -Time 14:17 -Correct Patient Yes -Correct Side, Site, Position Yes -Correct Procedure Yes -Procedure Performed Yes -Type of Procedure Debridement -Clinical Debridement Bone -Tissue Removed Biofilm -Post Debridement (cm) - Length 1.0 -Post Debridement (cm) - Width 0.8 -Post Debridement (cm) - Depth 0.2 -Total Square (Post) (cm) 0.80 -Area of Debridement (cm) - Length 1.0 -Area of Debridement (cm) - Width 0.8 -Total Square (Area) (cm) 0.80 -Tunneling No -Undermining/Tunneling No -Circular Undermining No -Wound/Ulcer Outcome Not Healed -Ulcer Cleansing Rinsed/ Irrigated with Saline -Foul Odor after Cleansing No -Bioengineered Tissue No -Bleeding Controlled with Pressure -Treatment Response Procedure Tolerated Well -Offloading Yes -Type of Offloading Surgical Shoe -Debridement - Subq, 1st 20sq cm No -Debridement - Bone, 1st 20sq cm Yes 9. R plantar -Time 14:18 -Correct Patient Yes -Correct Side, Site, Position Yes -Correct Procedure Yes -Procedure Performed Yes -Type of Procedure Debridement -Clinical Debridement Subcutaneous -Tissue Removed Subcutaneous -Post Debridement (cm) - Length 0.9 -Post Debridement (cm) - Width 0.5 -Post Debridement (cm) - Depth 0.3 -Total Square (Post) (cm) 0.45 -Area of Debridement (cm) - Length 0.9 -Area of Debridement (cm) - Width 0.5 -Total Square (Area) (cm) 0.45 -Tunneling No -Undermining/Tunneling No -Circular Undermining No -Wound/Ulcer Outcome Not Healed -Ulcer Cleansing Rinsed/ Irrigated with Saline -Foul Odor after Cleansing No -Bioengineered Tissue No -Bleeding Controlled with Pressure -Treatment Response Procedure Tolerated Well -Offloading Yes -Type of Offloading Surgical Shoe -Debridement - Subq, 1st 20sq cm No 8. L heel -Time 14:18 -Correct Patient Yes -Correct Side, Site, Position Yes -Correct Procedure Yes -Procedure Performed Yes -Type of Procedure Debridement -Clinical Debridement Subcutaneous -Tissue Removed Subcutaneous -Post Debridement (cm) - Length 3.5 -Post Debridement (cm) - Width 2.8 -Post Debridement (cm) - Depth 0.4 -Total Square (Post) (cm) 9.80 -Area of Debridement (cm) - Length 3.5 -Area of Debridement (cm) - Width 2.8 -Total Square (Area) (cm) 9.80 -Tunneling No -Undermining/Tunneling No -Circular Undermining No -Wound/Ulcer Outcome Not Healed -Ulcer Cleansing Rinsed/ Irrigated with Saline -Foul Odor after Cleansing No -Bioengineered Tissue No -Treatment Response Procedure Tolerated Well -Offloading Yes -Type of Offloading Surgical Shoe -Debridement - Subq, 1st 20sq cm No 7. L 2nd toe -Time 14:19 -Correct Patient Yes -Correct Side, Site, Position Yes -Correct Procedure Yes -Procedure Performed Yes -Type of Procedure Debridement -Clinical Debridement Subcutaneous -Tissue Removed Subcutaneous -Post Debridement (cm) - Length 0.5 -Post Debridement (cm) - Width 1.0 -Post Debridement (cm) - Depth 0.3 -Total Square (Post) (cm) 0.50 -Area of Debridement (cm) - Length 0.5 -Area of Debridement (cm) - Width 1.0 -Total Square (Area) (cm) 0.50 -Tunneling No -Undermining/Tunneling No -Circular Undermining No -Wound/Ulcer Outcome Not Healed -Ulcer Cleansing Rinsed/ Irrigated with Saline -Foul Odor after Cleansing No -Bioengineered Tissue No -Bleeding Controlled with Pressure -Treatment Response Procedure Tolerated Well -Offloading Yes -Type of Offloading Surgical Shoe -Debridement - Subq, 1st 20sq cm Yes Pain Scale: 0-10 Numeric Is Patient Pain Free? Yes WC - Nurse 3 - General Ulcer D/C NN Start: 03/09/22 13:55 Freq: Status: Active Protocol: Activity Type Activity Date Activity User E-Sign Co-Sign Detail Recorded Client Recorded Date Recorded By Document 03/09/22 14:38 [facility] [id number] 03/09/22 14:40 [facility] 03/09/22 14:38 Wound Care Nurse 3 #10 L 3rd toe -Ulcer Cleansing Rinsed/ Irrigated with Saline -Foul Odor after Cleansing No -Primary Dressing Applied Other -Other Dressing MOIST TO DRY PER [employer] -Primary Dressing Covered/Secured with Dry Gauze & Roll Gauze, Secured with Tape 9. R plantar -Ulcer Cleansing Rinsed/ Irrigated with Saline -Foul Odor after Cleansing No -Primary Dressing Applied Promogran Neida Matter -Other Dressing PER [employer]IN[employer]CE [employer]ER -Primary Dressing Covered/Secured with Dry Gauze & Roll Gauze, Secured with Tape -Promogran Neida Matter 1 8. L heel -Ulcer Cleansing Rinsed/ Irrigated with Saline -Foul Odor after Cleansing No -Primary Dressing Applied Other -Other Dressing MOIST TO DRY -Primary Dressing Covered/Secured with Dry Gauze & Roll Gauze, Secured with Tape -Other Covering PER [place] [employer]INTENA[employer]CE WORKER 7. L 2nd toe -Ulcer Cleansing Rinsed/ Irrigated with Saline -Foul Odor after Cleansing No -Primary Dressing Applied Other -Other Dressing MOIST TO DRY -Primary Dressing Covered/Secured with Dry Gauze & Roll Gauze, Secured with Tape -Other Covering DRSG PER [place] [employer]INTENANCE WORKER BLE -Other PT REFUSED APPLICATION; STATES THEY ITCH Treatment Response Procedure Tolerated Well Pain Scale: 0-10 Numeric Is Patient Pain Free? Yes WC - Visit Discharge Discharge Condition Stable Ambulatory Status Ambulatory Transportation Private Auto Assessment/Plan Assessment/Plan (1) Ulcer of right foot with fat layer exposed: CODE(S): L97.512 - Non-pressure chronic ulcer of other part of right foot with fat layer exposed (2) Lupus (systemic lupus erythematosus): CODE(S): M32.9 - Systemic lupus erythematosus, unspecified (3) Ulcer of left foot with fat layer exposed: CODE(S): L97.522 - Non-pressure chronic ulcer of other part of left foot with fat layer exposed (4) MRSA (methicillin resistant staph aureus) culture positive: CODE(S): Z22.322 - Carrier or suspected carrier of Methicillin resistant Staphylococcus aureus (5) Cellulitis of left lower limb: CODE(S): L03.116 - Cellulitis of left lower limb (6) Delayed wound healing: CODE(S): T14.8XXD - Other injury of unspecified body region, subsequent encounter (7) Non-pressure chronic ulcer of other part of left foot with necrosis of bone: CODE(S): L97.524 - Non-pressure chronic ulcer of other part of left foot with necrosis of bone PLAN: I reviewed and discussed her case. Subcutaneous excisional debridement was performed as noted in the clinical panel bilateral and bone debridement left 2nd toe. Diagnostic data was also reviewed. The following recommendations were made. Change dressing daily with aquacel ag or Neida to the right and Dakin wet-to-dry to the left toes and heel Wash with soap and water offloading: To maintain strict nonweightbearing status with the knee roller, left and heel weightbear right in surgical shoe. Total contact cast will be applied when she returns with a truck driver teamster and when she is ready to proceed after the completion of the antibiotics and full resolution of cellulitis.she is not able to use a knee roller due to knee pain. She has a walker at home and she will try to use this. Surgical shoes were updated today by adding additional offloading pocket to all of the distal aspect of the left toes. An additional foam pad was applied to the right surgical shoe fabric strap to avoid direct pressure to the medial foot ulcer site. Infection: culture from wound with MRSA. Concern is deeper infection involvement due to bulbous toe appearance including potential osteomyelitis. She has been taking doxycycline with some mild improvement however this is in regards to reduced erythema. It is noted she has continued communication with deep structures including the bone and there was bone that was debrided today from the left second toe. Infectious disease specialist, Dr. Reyes also saw and evaluated her today and input is greatly appreciated. She was advised to continue doxycycline and Augmentin will also be added to her regimen. She understands amputation will be recommended if she fails oral antibiotic treatment course of at least 6 weeks. nutrition: She was advised to maintain a balanced whole food diet with adequate protein and nutrients to optimize healing. To resume Yosvany supplementation use. Host factors. Neuropathy complicates her case. To monitor close due to inability to sensate as normal. She was also advised to avoid prednisone use and will also hold the Plaquenil at this time unless she has an intense flareup. This was previously reviewed verbally with Dr. Pratt. She also has a calcaneus gait with prior surgical intervention including a tendon transfer which is compromised with a fall in the early postoperative setting. We previously discussed options to surgically alleviate her calcaneus gait including retightening the Achilles tendon or other posterior leg muscles. Updated vascular (arterial) and doppler with reflux (venous) was ordered to assess for any abnormalities. The arterial studies were reviewed and no arterial disease or occlusions were identified. Venous insufficiency work-up is still pending. Diagnostic data: Her bilateral foot xrays (three views) were reviewed from [facility] from 02/08/2022 without soft tissue emphysema, osseous destruction or foreign body. Chip fracture to first metatarsal phalangeal joint area of right foot noted. Labs reviewed from 02/15/22 with wbc 9.4, no renal dysfunction or other gross abnormalities. Note: [email or web address] speech recognition spinner continuous software was used to create portions of this document. Sound-alike and misspelled words, as well as other spinner continuous errors may be contained in the documentation.
--- NOTE | 2022-03-09 15:10 | CON.PCM.ID_ITS ---
Assessment & Plan Assessment/Plan (1) Toe osteomyelitis, left: PLAN: Reviewed labs and imaging. Will extend doxy for full 6 weeks and add augmentin to try to cover other skin rosette and see if this can help. Will follow, thank you, d/w Dr. Gutierrez. HPI Consult Data Date of Consult: 03/09/22 HPI Narrative HPI Narrative: CHAPO PEREZ, is a 56 F with lupus, follow at wound center for foot wounds over past 6 months. L heel doing better, but worsening tunneling, redness, and swelling of L 2nd toe. On doxy for past 2 weeks without much improvement. No fever, no n/v/d. Reports some upset stomach with augmentin but has tolerated several times since allergy was recorded. Covid vaccine but no booster. Full ROS performed and neg except as noted above. [facility] Medical History Fibromyalgia Lupus Sjogren syndrome with dental involvement Sjogren syndrome with keratoconjunctivitis Sjogren syndrome with peripheral nervous system involvement Home Medications cyclobenzaprine 10 mg PO TID 04/15/20 [History Last Taken Unknown] dicyclomine 20 mg PO TID 04/15/20 [History Last Taken Unknown] duloxetine 60 mg PO DAILY 04/15/20 [History Last Taken Unknown] estradiol 1 mg PO DAILY 04/15/20 [History Last Taken Unknown] gabapentin 300 mg PO BID 04/15/20 [History Last Taken Unknown] hydroxychloroquine 200 mg PO DAILY 04/15/20 [History Last Taken Unknown] lorazepam 1 mg PO DAILY 04/15/20 [History Last Taken Unknown] zolpidem 10 mg PO PCHS 04/15/20 [History Last Taken Unknown] doxycycline hyclate 100 mg PO BID #14 tab 02/16/22 [Rx Last Taken Unknown] doxycycline hyclate 100 mg PO BID #20 cap 03/02/22 [Rx Last Taken Unknown] Allergy/AdvReac Type Severity Reaction Status Date / Time Gadolinium-MRI Contrast Allergy Intermediate Hives Verified 10/06/21 14:33 Medium [CONTRAST] amoxicillin [From Augmentin] Allergy Rash Verified 10/06/21 14:33 clavulanic acid Allergy Rash Verified 10/06/21 14:33 [From Augmentin] Iodinated Contrast Media [CT] Allergy Rash Verified 10/06/21 14:33 morphine Allergy Hives Verified 10/06/21 14:33 sertraline [From Zoloft] Allergy Swelling Verified 10/06/21 14:33 Surgical History (Updated 10/06/21 @ 17:[address] Chace Segura, DO) History of hysterectomy Hx of Achilles tendon repair Hx of cholecystectomy Social History Smoking Status: Never smoker Physical Exam Const alert, oriented x3 and no apparent distress General Appearance: cooperative Exam Limitations: no limitations HEENT normocephalic and head/scalp atraumatic Eyes PERRL and EOMs intact bilaterally Neck supple and No nodes Resp normal air movement and clear to auscultation bilaterally Cardio regular rate and regular rhythm GI soft to palpation, non-tender and non-distended Extremity no clubbing, cyanosis or edema Skin Skin Narrative: L 2nd toe with swelling, distal wound, redness. L heel ulcer healthy tissue, no redness. Neuro CN's II-XII intact bilaterally
[2022-03-16 11:26] VITALS: BP 136/77; PULSE 101; RESP 18; TEMP 36.4; BMI 37.2
--- NOTE | 2022-03-16 16:06 | PN.PCM_ITS ---
History of Present Illness Date of Service: 03/16/22 Chief Complaint: Left heel ulcer, second toe, and third toe right foot ulcer History of Wound: This pleasant 56-year-old female with significant past medical history of lupus, history of panic attack, depression, history of delayed healing, hyperlipidemia, irritable bowel syndrome, memory loss, restless leg syndrome, and obstructive sleep apnea is here for follow-up of left heel ulcer. She denies fever, chill, nausea, vomiting. She continues to walk on the ulcers because she cannot use a knee roller due to her knee arthritis. She is trying to get a cortisone injection within the next week. She has a walker at home and has not tried to use it yet. She presents today with a cane. She also uses a surgical shoe bilateral. She reports she has anxiety and it is very difficult for her to seek medical care at times. She reports continued redness to second toe that is slightly decreased since she has been taking doxycycline as advised. she takes antibiotics as advised by Dr. Reyes. She is amendable to have a cast applied today. Progress of Wound: Stable right foot and left heel and third toe stabilizing (reduced inflammation) left second toe Objective Data Objective Data Vital Signs: Vital Signs Temp Pulse Resp BP 97.5 F L 101 H 18 136/77 H 03/16/22 11:26 03/16/22 11:26 03/16/22 11:26 03/16/22 11:26 Weight: 111.13 kg Body Mass Index (BMI) 37.2 Physical Exam Const alert and oriented x3 General Appearance: cooperative HEENT normocephalic Extremity Extremity Narrative: No calf tenderness Diminished pulses Muscle wasting noted General Extremity: edema and no tenderness to palpation of joints or extremities; Negative for cyanosis Skin Skin Narrative: no purulence, no streaking, no odor, no infection granular base ulcer without maceration, necrosis or deep tissue exposure to left heel and second toe (mild diffuse erythema and bulbous change continued and this does not extend past the metatarsophalangeal joint level) and also the right plantar medial forefoot - reduced inflammation noted skin discontinuity to the distal left third toe granular base and stable no bogginess or fluctuance on palpation bilateral. General Skin Exam: Negative for erythema Neuro Neuro Narrative: lack of normal epicritic sensation via light touch is consistent with neuropathy status Psych cooperative and affect normal Debridement Note Debridement Note Wound debrided: right sub 1st metatarsal head, left 2nd toe, left heel Wound Grade/Stage: Type of Debridement: Excisional debridement Anesthesia Used: 4% Lidocaine Solution Depth: in the subcutaneous layer (right foot and left heel) and to bone (left second toe) Percentage of wound debrided: 100 Instrument Used: #15 blade Tissue Removed: fibrous, devitalized subcutaneous, biofilm, slough, bone (L 2 toe) Severity: Fat Layer Exposed Amount of bleeding with debridement: Mild Bleeding Controlled with: Pressure Patient tolerated procedure: Patient tolerated procedure well Post-Debridement Measurements and Additional Note: Post-Debridement Measurements/Treatment - Nurse 1 - General Ulcer Assessment Start: 03/09/22 13:55 Freq: Status: Active Protocol: OLGA Activity Type Activity Date Activity User E-Sign Co-Sign Detail Recorded Client Recorded Date Recorded By Document 03/09/22 13:55 DL [id number] 03/09/22 14:05 DL Document 03/16/22 11:26 DL [id number] 03/16/22 11:38 DL 03/09/22 03/16/22 13:55 11:26 - Today's Visit Information Type of service Follow-up Visit Follow-up Visit (Physician/ZIGZAG STITCHER (Physician/ZIGZAG STITCHER ) ) Arrival Mode Ambulatory Ambulatory Transfer Assistance None None Patient Identification Verified (Name & Yes Yes ) Patient Requires Transmission-Based No Precautions Height and Weight Body Mass Index (BMI) 37.2 37.2 BMI Classification Obese Obese Vital Signs Temperature (97.8 F-99.1 F) 97.3 F L 97.5 F L Temperature Source Temporal Temporal Pulse Rate (60-100) 110 H 101 H Pulse Location Monitor Monitor Respiratory Rate (12-18) 20 H 18 Respiratory rate source Observation Blood Pressure (90/60-120/80) 139/83 H 136/77 H Blood Pressure Mean (mm Hg) 101 96 Source Monitor Monitor History Since Last Visit- (Skip if this is Patient's initial visit) Have you changed medications since your No No last visit? Any new allergies or adverse reactions No No Had a fall/change in ADL's that may No No increase risk of falls Signs or symptoms of abuse and/or No No neglect since last visit Have you been in the hospital since your No No last visit? Has dressing in place as prescribed Yes Yes Has compression in place as prescribed N/A N/A Has offloadiing in place as prescribed Yes Yes Experienced any changes in pain level or No No management Left Footwear Surgical Shoe with pressure relief insole Right Footwear Surgical Shoe Surgical Shoe with pressure with pressure relief insole relief insole Pain Scale: 0-10 Numeric Is Patient Pain Free? Yes Yes WC - Nurse 1 - General Ulcer Measurement Start: 03/09/22 13:55 Freq: Status: Active Protocol: Activity Type Activity Date Activity User E-Sign Co-Sign Detail Recorded Client Recorded Date Recorded By Document 03/09/22 13:55 DL [id number] 03/09/22 14:05 DL Document 03/16/22 11:26 DL [id number] 03/16/22 11:38 DL 03/09/22 03/16/22 13:55 11:26 Wound Center Nurse 1 #10 L 3rd toe -Current Size (cm) - Length 0.9 0.3 -Current Size (cm) - Width 0.8 0.4 -Current Size (cm) - Depth 0.2 0.1 -Total Square Cm 0.72 0.12 -Photo Taken No No -Exudate Amt Medium None Present -Exudate Type Serosanguineous -Wound Margin Thickened Thickened -Granulation Amt Small (1-33%) Small (1-33%) -Granulation Quality Ralls Ralls -Necrosis Amt Small (1-33%) Small (1-33%) -Necrotic Tissue Type Adherent Slough Adherent Slough -Structure Exposed N/A -Texture (Cecelia-wound Skin Appearance) Callus,Scarring -Moisture (Cecelia-wound Skin Appearance) No Abnormality, Dry/Scaly -Color (Cecelia-wound Skin Appearance) No Abnormality -Temperature (Cecelia-wound Skin No Abnormality Appearance) (Pt Warm) -Tenderness on Palpation (Cecelia-wound No Skin Appearance) -Ulcer Cleansing Soap and Water -Foul Odor after Cleansing No -Anesthetic Used 5% Lidocaine Gel 9. R plantar -Current Size (cm) - Length 0.8 0.6 -Current Size (cm) - Width 0.4 0.5 -Current Size (cm) - Depth 0.3 0.4 -Total Square Cm 0.32 0.30 -Photo Taken No No -Undermining/Tunneling Starts (O'clock 8 ) -Undermining/Tunneling Ends (O'clock) 12 -Maximum Distance (cm) 0.3 -Maximum Distance #2 (cm) 0.3 -Circular Undermining Yes -Exudate Amt Small Small -Exudate Type Serosanguineous -Wound Margin Thickened -Granulation Amt Small (1-33%) Small (1-33%) -Granulation Quality Red Ralls -Necrosis Amt Small (1-33%) Small (1-33%) -Necrotic Tissue Type Adherent Slough Adherent Slough -Structure Exposed N/A N/A -Texture (Eccelia-wound Skin Appearance) Callus,Scarring Callus -Moisture (Cecelia-wound Skin Appearance) No Abnormality No Abnormality -Color (Cecelia-wound Skin Appearance) No Abnormality No Abnormality -Temperature (Cecelia-wound Skin No Abnormality No Abnormality Appearance) (Pt Warm) (Pt Warm) -Tenderness on Palpation (Cecelia-wound No No Skin Appearance) -Ulcer Cleansing Soap and Water Soap and Water -Foul Odor after Cleansing No No -Anesthetic Used 5% Lidocaine 5% Lidocaine Gel Gel 8. L heel -Current Size (cm) - Length 3.4 2.7 -Current Size (cm) - Width 2.8 3.3 -Current Size (cm) - Depth 0.4 0.5 -Total Square Cm 9.52 8.91 -Photo Taken No No -Undermining/Tunneling Starts (O'clock 8 ) -Undermining/Tunneling Ends (O'clock) 1 -Maximum Distance (cm) 0.3 -Exudate Amt Small Medium -Exudate Type Serosanguineous Serosanguineous -Wound Margin Thickened Thickened -Granulation Amt Large (67-100%) Large (67-100%) -Granulation Quality Red Red -Necrosis Amt Small (1-33%) Small (1-33%) -Necrotic Tissue Type Adherent Slough Adherent Slough -Structure Exposed N/A -Texture (Cecelia-wound Skin Appearance) Callus Scarring -Moisture (Cecelia-wound Skin Appearance) No Abnormality Dry/Scaly -Color (Cecelia-wound Skin Appearance) No Abnormality No Abnormality -Temperature (Cecelia-wound Skin No Abnormality No Abnormality Appearance) (Pt Warm) (Pt Warm) -Tenderness on Palpation (Cecelia-wound No No Skin Appearance) -Ulcer Cleansing Soap and Water Soap and Water -Foul Odor after Cleansing No No -Anesthetic Used 5% Lidocaine 5% Lidocaine Gel Gel 7. L 2nd toe -Current Size (cm) - Length 0.5 0.3 -Current Size (cm) - Width 0.9 0.5 -Current Size (cm) - Depth 0.3 0.4 -Total Square Cm 0.45 0.15 -Photo Taken No No -Maximum Distance #2 (cm) 0.2 -Circular Undermining Yes -Exudate Amt Small Small -Exudate Type Serosanguineous Serosanguineous -Wound Margin Thickened Thickened -Granulation Amt Large (67-100%) None Present (0 %) -Granulation Quality Pale -Necrosis Amt Small (1-33%) Large (67-100%) -Necrotic Tissue Type Adherent Slough Adherent Slough -Structure Exposed Bone,N/A N/A -Texture (Cecelia-wound Skin Appearance) Callus,Scarring Callus, Localized Edema ,Scarring -Moisture (Cecelia-wound Skin Appearance) Dry/Scaly Dry/Scaly -Color (Cecelia-wound Skin Appearance) No Abnormality Erythema -Temperature (Cecelia-wound Skin No Abnormality No Abnormality Appearance) (Pt Warm) (Pt Warm) -Tenderness on Palpation (Cecelia-wound No No Skin Appearance) -Ulcer Cleansing Soap and Water Soap and Water -Foul Odor after Cleansing No No -Anesthetic Used 5% Lidocaine 5% Lidocaine Gel Gel WC - Nurse 2 - General Ulcer CM Notes Start: 03/09/22 13:55 Freq: Status: Active Protocol: Activity Type Activity Date Activity User E-Sign Co-Sign Detail Recorded Client Recorded Date Recorded By Document 03/09/22 14:16 [id number] 03/09/22 14:21 Edit Result 03/09/22 14:16 STEPHANIE (1) [id number] 03/09/22 14:22 JF Document 03/16/22 11:42 [id number] 03/16/22 11:46 JF (1) #10 L 3rd toe - Clinical Debridement Subcutaneous => Bone - Tissue Removed Subcutaneous => Biofilm - Debridement - Bone, 1st 20sq cm => Yes 03/09/22 03/16/22 14:16 11:42 Wound Center Nurse 2 #10 L 3rd toe -Time 14:17 11:43 -Correct Patient Yes Yes -Correct Side, Site, Position Yes Yes -Correct Procedure Yes Yes -Procedure Performed Yes Yes -Type of Procedure Debridement Debridement -Clinical Debridement Bone Subcutaneous -Tissue Removed Biofilm Subcutaneous -Post Debridement (cm) - Length 1.0 0.4 -Post Debridement (cm) - Width 0.8 0.4 -Post Debridement (cm) - Depth 0.2 0.1 -Total Square (Post) (cm) 0.80 0.16 -Area of Debridement (cm) - Length 1.0 0.4 -Area of Debridement (cm) - Width 0.8 0.4 -Total Square (Area) (cm) 0.80 0.16 -Tunneling No No -Undermining/Tunneling No No -Circular Undermining No No -Wound/Ulcer Outcome Not Healed Not Healed -Ulcer Cleansing Rinsed/ Rinsed/ Irrigated with Irrigated with Saline Saline -Foul Odor after Cleansing No No -Bioengineered Tissue No No -Bleeding Controlled with Pressure Pressure -Treatment Response Procedure Procedure Tolerated Well Tolerated Well -Offloading Yes Yes -Type of Offloading Surgical Shoe Total Contact Cast (TCC) - Left ($) -Assistive Device(s) Walker -Debridement - Subq, 1st 20sq cm No No -Debridement - Bone, 1st 20sq cm Yes 9. R plantar -Time 14:18 11:43 -Correct Patient Yes Yes -Correct Side, Site, Position Yes Yes -Correct Procedure Yes Yes -Procedure Performed Yes Yes -Type of Procedure Debridement Debridement -Clinical Debridement Subcutaneous Subcutaneous -Tissue Removed Subcutaneous Subcutaneous -Post Debridement (cm) - Length 0.9 0.6 -Post Debridement (cm) - Width 0.5 0.6 -Post Debridement (cm) - Depth 0.3 0.4 -Total Square (Post) (cm) 0.45 0.36 -Area of Debridement (cm) - Length 0.9 0.6 -Area of Debridement (cm) - Width 0.5 0.6 -Total Square (Area) (cm) 0.45 0.36 -Tunneling No No -Undermining/Tunneling No No -Circular Undermining No No -Wound/Ulcer Outcome Not Healed Not Healed -Ulcer Cleansing Rinsed/ Rinsed/ Irrigated with Irrigated with Saline Saline -Foul Odor after Cleansing No No -Bioengineered Tissue No No -Bleeding Controlled with Pressure Pressure -Treatment Response Procedure Procedure Tolerated Well Tolerated Well -Offloading Yes Yes -Type of Offloading Surgical Shoe Surgical Shoe -Debridement - Subq, 1st 20sq cm No No 8. L heel -Time 14:18 11:44 -Correct Patient Yes Yes -Correct Side, Site, Position Yes Yes -Correct Procedure Yes Yes -Procedure Performed Yes Yes -Type of Procedure Debridement Debridement -Clinical Debridement Subcutaneous Subcutaneous -Tissue Removed Subcutaneous Subcutaneous -Post Debridement (cm) - Length 3.5 2.8 -Post Debridement (cm) - Width 2.8 3.3 -Post Debridement (cm) - Depth 0.4 0.5 -Total Square (Post) (cm) 9.80 9.24 -Area of Debridement (cm) - Length 3.5 2.8 -Area of Debridement (cm) - Width 2.8 3.3 -Total Square (Area) (cm) 9.80 9.24 -Tunneling No No -Undermining/Tunneling No No -Circular Undermining No No -Wound/Ulcer Outcome Not Healed Not Healed -Ulcer Cleansing Rinsed/ Rinsed/ Irrigated with Irrigated with Saline Saline -Foul Odor after Cleansing No No -Bioengineered Tissue No No -Bleeding Controlled with Pressure -Treatment Response Procedure Procedure Tolerated Well Tolerated Well -Offloading Yes No -Type of Offloading Surgical Shoe -Debridement - Subq, 1st 20sq cm No No 7. L 2nd toe -Time 14:19 11:45 -Correct Patient Yes Yes -Correct Side, Site, Position Yes Yes -Correct Procedure Yes Yes -Procedure Performed Yes Yes -Type of Procedure Debridement Debridement -Clinical Debridement Subcutaneous Subcutaneous -Tissue Removed Subcutaneous Subcutaneous -Post Debridement (cm) - Length 0.5 0.4 -Post Debridement (cm) - Width 1.0 0.5 -Post Debridement (cm) - Depth 0.3 0.3 -Total Square (Post) (cm) 0.50 0.20 -Area of Debridement (cm) - Length 0.5 0.4 -Area of Debridement (cm) - Width 1.0 0.5 -Total Square (Area) (cm) 0.50 0.20 -Tunneling No No -Undermining/Tunneling No No -Circular Undermining No No -Wound/Ulcer Outcome Not Healed Not Healed -Ulcer Cleansing Rinsed/ Rinsed/ Irrigated with Irrigated with Saline Saline -Foul Odor after Cleansing No No -Bioengineered Tissue No No -Bleeding Controlled with Pressure Pressure -Treatment Response Procedure Procedure Tolerated Well Tolerated Well -Offloading Yes No -Type of Offloading Surgical Shoe -Debridement - Subq, 1st 20sq cm Yes Yes Pain Scale: 0-10 Numeric Is Patient Pain Free? Yes Yes - Nurse 3 - General Ulcer D/C NN Start: 03/09/22 13:55 Freq: Status: Active Protocol: Activity Type Activity Date Activity User E-Sign Co-Sign Detail Recorded Client Recorded Date Recorded By Document 03/09/22 14:38 [facility] [id number] 03/09/22 14:40 [facility] 03/09/22 14:38 Wound Care Nurse 3 #10 L 3rd toe -Ulcer Cleansing Rinsed/ Irrigated with Saline -Foul Odor after Cleansing No -Primary Dressing Applied Other -Other Dressing MOIST TO DRY PER [employer] -Primary Dressing Covered/Secured with Dry Gauze & Roll Gauze, Secured with Tape 9. R plantar -Ulcer Cleansing Rinsed/ Irrigated with Saline -Foul Odor after Cleansing No -Primary Dressing Applied Promogran Neida Matter -Other Dressing PER [employer] -Primary Dressing Covered/Secured with Dry Gauze & Roll Gauze, Secured with Tape -Promogran Neida Matter 1 8. L heel -Ulcer Cleansing Rinsed/ Irrigated with Saline -Foul Odor after Cleansing No -Primary Dressing Applied Other -Other Dressing MOIST TO DRY -Primary Dressing Covered/Secured with Dry Gauze & Roll Gauze, Secured with Tape -Other Covering PER [employer] 7. L 2nd toe -Ulcer Cleansing Rinsed/ Irrigated with Saline -Foul Odor after Cleansing No -Primary Dressing Applied Other -Other Dressing MOIST TO DRY -Primary Dressing Covered/Secured with Dry Gauze & Roll Gauze, Secured with Tape -Other Covering DRSG PER [employer] BLE -Other PT REFUSED APPLICATION; STATES THEY ITCH Treatment Response Procedure Tolerated Well Pain Scale: 0-10 Numeric Is Patient Pain Free? Yes - Visit Discharge Discharge Condition Stable Ambulatory Status Ambulatory Transportation Private Auto Assessment/Plan Assessment/Plan (1) Ulcer of right foot with fat layer exposed: CODE(S): L97.512 - Non-pressure chronic ulcer of other part of right foot with fat layer exposed (2) Lupus (systemic lupus erythematosus): CODE(S): M32.9 - Systemic lupus erythematosus, unspecified (3) Ulcer of left foot with fat layer exposed: CODE(S): L97.522 - Non-pressure chronic ulcer of other part of left foot with fat layer exposed (4) MRSA (methicillin resistant staph aureus) culture positive: CODE(S): Z22.322 - Carrier or suspected carrier of Methicillin resistant Staphylococcus aureus (5) Cellulitis of left lower limb: CODE(S): L03.116 - Cellulitis of left lower limb (6) Delayed wound healing: CODE(S): T14.8XXD - Other injury of unspecified body region, subsequent encounter (7) Non-pressure chronic ulcer of other part of left foot with necrosis of bone: CODE(S): L97.524 - Non-pressure chronic ulcer of other part of left foot with necrosis of bone PLAN: I reviewed and discussed her case. Subcutaneous excisional debridement was performed as noted in the clinical panel bilateral and bone debridement left 2nd toe. Diagnostic data was also reviewed. The following recommendations were made. Change dressing daily with aquacel ag or Neida to the right and Dakin wet-to-dry to the left toes and heel Wash with soap and water offloading: To maintain strict nonweightbearing status with the knee roller, left and heel weightbear right in surgical shoe. Total contact cast was applied today according to standard protocol (left) after verbal consent was obtained. She tolerated this well and will keep this clean, dry, and intact. she is not able to use a knee roller due to knee pain. Cortisone obtained already. She has a walker at home and she will try to use this. Infection: culture from wound with MRSA. Concern is deeper infection involvement due to bulbous toe appearance including potential osteomyelitis. She has been taking doxycycline with some mild improvement however this is in regards to reduced erythema. It is noted she has continued communication with deep structures including the bone and there was bone that was debrided today from the left second toe. Infectious disease specialist, Dr. Reyes also saw and evaluated her today and input is greatly appreciated. She was advised to continue doxycycline and Augmentin will also be added to her regimen. She understands amputation will be recommended if she fails oral antibiotic treatment course of at least 6 weeks. I D recs appreciated. nutrition: She was advised to maintain a balanced whole food diet with adequate protein and nutrients to optimize healing. To resume Yosvany supplementation use. Host factors. Neuropathy complicates her case. To monitor close due to inability to sensate as normal. She was also advised to avoid prednisone use and will also hold the Plaquenil at this time unless she has an intense flareup. This was previously reviewed verbally with Dr. Pratt. She also has a calcaneus gait with prior surgical intervention including a tendon transfer which is compromised with a fall in the early postoperative setting. We previously discussed options to surgically alleviate her calcaneus gait including retightening the Achilles tendon or other posterior leg muscles. Updated vascular (arterial) and doppler with reflux (venous) was ordered to assess for any abnormalities. The arterial studies were reviewed and no arterial disease or occlusions were identified. Venous insufficiency work-up is still pending. Diagnostic data: Her bilateral foot xrays (three views) were reviewed from [facility] from 02/08/2022 without soft tissue emphysema, osseous destruction or foreign body. Chip fracture to first metatarsal phalangeal joint area of right foot noted. Labs reviewed from 02/15/22 with wbc 9.4, no renal dysfunction or other gross abnormalities. Note: [employer] speech recognition lab assistant software was used to create po rtions of this document. Sound-alike and misspelled words, as well as other lab assistant errors may be contained in the documentation.
[2022-03-23 08:23] VITALS: RESP 16; TEMP 35.8; BMI 37.2
--- NOTE | 2022-03-23 09:45 | PCM.WC.PN ---
History of Present Illness Date of Service: 03/23/22 Chief Complaint: Left heel ulcer, second toe, and third toe right foot ulcer History of Wound: This pleasant 56-year-old female with significant past medical history of lupus, history of panic attack, depression, history of delayed healing, hyperlipidemia, irritable bowel syndrome, memory loss, restless leg syndrome, and obstructive sleep apnea is here for follow-up of left heel ulcer. She denies fever, chill, nausea, vomiting. She continues to walk on the ulcers because she cannot use a knee roller due to her knee arthritis. She is trying to get a cortisone injection within the next week. She has a walker at home and has not tried to use it yet. She presents today with a cane. She also uses a surgical shoe bilateral. She takes antibiotics as advised by Dr. Reyes. She is amendable to have a cast applied today. She tolerated the left extremity cast well last week. Progress of Wound: Stable right foot and left heel healed third toe left stabilizing (reduced inflammation) left second toe Objective Data Objective Data Vital Signs: Vital Signs Temp Pulse Resp BP 96.5 F L 101 H 16 136/77 H 03/23/22 08:23 03/16/22 11:26 03/23/22 08:23 03/16/22 11:26 Oxygen Delivery Method Room Air Weight: 111.13 kg Body Mass Index (BMI) 37.2 Physical Exam Const alert and oriented x3 General Appearance: cooperative HEENT normocephalic Extremity Extremity Narrative: No calf tenderness Diminished pulses Muscle wasting noted General Extremity: edema and no tenderness to palpation of joints or extremities; Negative for cyanosis Skin Skin Narrative: no purulence, no streaking, no odor, no infection granular base ulcer without maceration, necrosis or deep tissue exposure to left heel and second toe (resolved erythema and no bone exposure todayl) healed left third toe; full epithelialization no bogginess or fluctuance on palpation bilateral. General Skin Exam: Negative for erythema Neuro Neuro Narrative: lack of normal epicritic sensation via light touch is consistent with neuropathy status Psych cooperative and affect normal Debridement Note Debridement Note Wound debrided: right foot, left heel, left 2nd toe Laterality: Not Applicable (bilateral) Wound Grade/Stage: Type of Debridement: Excisional debridement Anesthesia Used: 4% Lidocaine Solution Depth: in the subcutaneous layer Percentage of wound debrided: 100 Instrument Used: #15 blade Tissue Removed: fibrous, devitalized subcutaneous, biofilm, slough Severity: Fat Layer Exposed Amount of bleeding with debridement: Mild Bleeding Controlled with: Pressure Patient tolerated procedure: Patient tolerated procedure well Post-Debridement Measurements and Additional Note: Post-Debridement Measurements/Treatment WC - Nurse 1 - General Ulcer Assessment Start: 03/09/22 13:55 Freq: Status: Active Protocol: [email or web address].[email or web address] Activity Type Activity Date Activity User E-sign Co-sign Detail Recorded Client Recorded Date Recorded By Document 03/09/22 13:55 DL [id number] 03/09/22 14:05 DL Document 03/16/22 11:26 DL [id number] 03/16/22 11:38 DL Document 03/23/22 08:23 [facility] [id number] 03/23/22 08:38 BM 03/09/22 03/16/22 03/23/22 13:55 11:26 08:23 - Today's Visit Information Type of service Follow-up Visit Follow-up Visit Follow-up Visit (Physician/OCCUPATIONAL HEALTH NURSE SUPERVISOR (Physician/OCCUPATIONAL HEALTH NURSE SUPERVISOR (Physician/OCCUPATIONAL HEALTH NURSE SUPERVISOR ) ) ) Arrival Mode Ambulatory Ambulatory Ambulatory Transfer Assistance None None None Patient Identification Verified (Name & Yes Yes Yes ) Patient Requires Transmission-Based No No Precautions Height and Weight Body Mass Index (BMI) 37.2 37.2 37.2 BMI Classification Obese Obese Obese Vital Signs Temperature (97.8 F-99.1 F) 97.3 F L 97.5 F L 96.5 F L Temperature Source Temporal Temporal Temporal Pulse Rate (60-100) 110 H 101 H Pulse Location Monitor Monitor Monitor Respiratory Rate (12-18) 20 H 18 16 Respiratory rate source Observation Observation Oxygen Delivery Method Room Air Blood Pressure (90/60-120/80) 139/83 H 136/77 H Blood Pressure Mean (mm Hg) 101 96 Source Monitor Monitor Monitor Position Sitting Blood Pressure Location Left Arm History Since Last Visit- (Skip if this is Patient's initial visit) Have you changed medications since your No No No last visit? Any new allergies or adverse reactions No No No Had a fall/change in ADL's that may No No No increase risk of falls Signs or symptoms of abuse and/or No No No neglect since last visit Have you been in the hospital since your No No No last visit? Has dressing in place as prescribed Yes Yes Yes Has compression in place as prescribed N/A N/A N/A Has offloadiing in place as prescribed Yes Yes Yes Experienced any changes in pain level or No No No management Left Footwear Surgical Shoe Total Contact with pressure Cast relief insole Right Footwear Surgical Shoe Surgical Shoe Surgical Shoe with pressure with pressure with pressure relief insole relief insole relief insole Pain Scale: 0-10 Numeric Is Patient Pain Free? Yes Yes Yes WC - Nurse 1 - General Ulcer Measurement Start: 03/09/22 13:55 Freq: Status: Active Protocol: Activity Type Activity Date Activity User E-sign Co-sign Detail Recorded Client Recorded Date Recorded By Document 03/09/22 13:55 DL [id number] 03/09/22 14:05 DL Document 03/16/22 11:26 DL [id number] 03/16/22 11:38 DL Document 03/23/22 08:23 [facility] [id number] 03/23/22 08:38 [facility] 03/09/22 03/16/22 03/23/22 13:55 11:26 08:23 Wound Center Nurse 1 #10 L 3rd toe -Combined with other wound No -Current Size (cm) - Length 0.9 0.3 0.1 -Current Size (cm) - Width 0.8 0.4 0.1 -Current Size (cm) - Depth 0.2 0.1 0.1 -Total Square Cm 0.72 0.12 0.01 -Photo Taken No No No -Epithelialization Large 67-100% -Exudate Amt Medium None Present -Exudate Type Serosanguineous -Wound Margin Thickened Thickened -Granulation Amt Small (1-33%) Small (1-33%) -Granulation Quality Mims Mims -Necrosis Amt Small (1-33%) Small (1-33%) -Necrotic Tissue Type Adherent Slough Adherent Slough -Structure Exposed N/A -Texture (Cecelia-wound Skin Appearance) Callus,Scarring Assessed,Callus -Moisture (Cecelia-wound Skin Appearance) No Abnormality, Assessed,Dry/ Dry/Scaly Scaly -Color (Cecelia-wound Skin Appearance) No Abnormality Assessed -Temperature (Cecelia-wound Skin No Abnormality Appearance) (Pt Warm) -Tenderness on Palpation (Cecelia-wound No Skin Appearance) -Ulcer Cleansing Soap and Water -Foul Odor after Cleansing No -Anesthetic Used 5% Lidocaine Gel 9. R plantar -Combined with other wound No -Current Size (cm) - Length 0.8 0.6 0.8 -Current Size (cm) - Width 0.4 0.5 0.6 -Current Size (cm) - Depth 0.3 0.4 0.4 -Total Square Cm 0.32 0.30 0.48 -Photo Taken No No No -Epithelialization Small 1-33% -Tunneling No -Undermining/Tunneling Yes -Undermining/Tunneling Starts (O'clock 8 12 ) -Undermining/Tunneling Ends (O'clock) 12 12 -Maximum Distance (cm) 0.3 0.4 -Maximum Distance #2 (cm) 0.3 -Circular Undermining Yes Yes -Exudate Amt Small Small Small -Exudate Type Serosanguineous Serosanguineous -Wound Margin Thickened Distinct, Outline Attached -Granulation Amt Small (1-33%) Small (1-33%) Large (67-100%) -Granulation Quality Red Mims Red -Necrosis Amt Small (1-33%) Small (1-33%) -Necrotic Tissue Type Adherent Slough Adherent Slough -Structure Exposed N/A N/A -Texture (Cecelia-wound Skin Appearance) Callus,Scarring Callus Assessed, Scarring -Moisture (Cecelia-wound Skin Appearance) No Abnormality No Abnormality Assessed -Color (Cecelia-wound Skin Appearance) No Abnormality No Abnormality Assessed, Erythema -Temperature (Cecelia-wound Skin No Abnormality No Abnormality No Abnormality Appearance) (Pt Warm) (Pt Warm) (Pt Warm) -Tenderness on Palpation (Cecelia-wound No No No Skin Appearance) -Ulcer Cleansing Soap and Water Soap and Water Soap and Water -Foul Odor after Cleansing No No No -Anesthetic Used 5% Lidocaine 5% Lidocaine 4% Lidocaine Gel Gel Solution 8. L heel -Combined with other wound No -Current Size (cm) - Length 3.4 2.7 2.8 -Current Size (cm) - Width 2.8 3.3 3.3 -Current Size (cm) - Depth 0.4 0.5 0.4 -Total Square Cm 9.52 8.91 9.24 -Photo Taken No No No -Epithelialization Small 1-33% -Tunneling No -Undermining/Tunneling No -Undermining/Tunneling Starts (O'clock 8 ) -Undermining/Tunneling Ends (O'clock) 1 -Maximum Distance (cm) 0.3 -Circular Undermining No -Exudate Amt Small Medium Large -Exudate Type Serosanguineous Serosanguineous Serosanguineous -Wound Margin Thickened Thickened Distinct, Outline Attached -Granulation Amt Large (67-100%) Large (67-100%) Large (67-100%) -Granulation Quality Red Red Mims -Slough/Fibrin Yes -Necrosis Amt Small (1-33%) Small (1-33%) Small (1-33%) -Necrotic Tissue Type Adherent Slough Adherent Slough Adherent Slough -Structure Exposed N/A -Texture (Cecelia-wound Skin Appearance) Callus Scarring Assessed, Scarring -Moisture (Cecelia-wound Skin Appearance) No Abnormality Dry/Scaly Assessed, Maceration -Color (Cecelia-wound Skin Appearance) No Abnormality No Abnormality Assessed -Temperature (Cecelia-wound Skin No Abnormality No Abnormality No Abnormality Appearance) (Pt Warm) (Pt Warm) (Pt Warm) -Tenderness on Palpation (Cecelia-wound No No No Skin Appearance) -Ulcer Cleansing Soap and Water Soap and Water Soap and Water -Foul Odor after Cleansing No No No -Anesthetic Used 5% Lidocaine 5% Lidocaine 4% Lidocaine Gel Gel Solution 7. L 2nd toe -Combined with other wound No -Current Size (cm) - Length 0.5 0.3 0.2 -Current Size (cm) - Width 0.9 0.5 0.3 -Current Size (cm) - Depth 0.3 0.4 0.1 -Total Square Cm 0.45 0.15 0.06 -Photo Taken No No No -Epithelialization Small 1-33% -Tunneling No -Undermining/Tunneling No -Maximum Distance #2 (cm) 0.2 -Circular Undermining Yes No -Exudate Amt Small Small Small -Exudate Type Serosanguineous Serosanguineous Serosanguineous -Wound Margin Thickened Thickened Distinct, Outline Attached -Granulation Amt Large (67-100%) None Present (0 Large (67-100%) %) -Granulation Quality Pale Mims -Slough/Fibrin Yes -Necrosis Amt Small (1-33%) Large (67-100%) Small (1-33%) -Necrotic Tissue Type Adherent Slough Adherent Slough Adherent Slough -Structure Exposed Bone,N/A N/A -Texture (Cecelia-wound Skin Appearance) Callus,Scarring Callus, Assessed,Callus Localized Edema ,Scarring ,Scarring -Moisture (Cecelia-wound Skin Appearance) Dry/Scaly Dry/Scaly Assessed,Dry/ Scaly -Color (Cecelia-wound Skin Appearance) No Abnormality Erythema Assessed -Temperature (Cecelia-wound Skin No Abnormality No Abnormality No Abnormality Appearance) (Pt Warm) (Pt Warm) (Pt Warm) -Tenderness on Palpation (Cecelia-wound No No No Skin Appearance) -Ulcer Cleansing Soap and Water Soap and Water Soap and Water -Foul Odor after Cleansing No No No -Anesthetic Used 5% Lidocaine 5% Lidocaine 4% Lidocaine Gel Gel Solution WC - Nurse 2 - General Ulcer CM Notes Start: 03/09/22 13:55 Freq: Status: Active Protocol: Activity Type Activity Date Activity User E-sign Co-sign Detail Recorded Client Recorded Date Recorded By Document 03/09/22 14:16 [id number] 03/09/22 14:21 JF Edit Result 03/09/22 14:16 JF (1) [id number] 03/09/22 14:22 JF Document 03/16/22 11:42 [id number] 03/16/22 11:46 JF Edit Result 03/16/22 11:42 JF (2) [id number] 03/16/22 16:27 JF Edit Result 03/16/22 11:42 JF (3) [id number] 03/16/22 16:28 JF Document 03/23/22 09:27 JF [id number] 03/23/22 09:30 JF (1) #10 L 3rd toe - Clinical Debridement Subcutaneous => Bone - Tissue Removed Subcutaneous => Biofilm - Debridement - Bone, 1st 20sq cm => Yes (2) 7. L 2nd toe - Clinical Debridement Subcutaneous => Bone - Tissue Removed Subcutaneous => Subcutaneous, => Slough - Debridement - Subq, 1st 20sq cm Yes => No - Debridement - Bone, 1st 20sq cm => Yes (3) 9. R plantar - Debridement - Subq, 1st 20sq cm No => Yes 0603/16/22 03/23/22 14:16 11:42 09:27 Wound Center Nurse 2 #10 L 3rd toe -Time 14:17 11:43 -Correct Patient Yes Yes -Correct Side, Site, Position Yes Yes -Correct Procedure Yes Yes -Procedure Performed Yes Yes -Type of Procedure Debridement Debridement -Clinical Debridement Bone Subcutaneous -Tissue Removed Biofilm Subcutaneous -Post Debridement (cm) - Length 1.0 0.4 -Post Debridement (cm) - Width 0.8 0.4 -Post Debridement (cm) - Depth 0.2 0.1 -Total Square (Post) (cm) 0.80 0.16 -Area of Debridement (cm) - Length 1.0 0.4 -Area of Debridement (cm) - Width 0.8 0.4 -Total Square (Area) (cm) 0.80 0.16 -Tunneling No No -Undermining/Tunneling No No -Circular Undermining No No -Wound/Ulcer Outcome Not Healed Not Healed -Ulcer Cleansing Rinsed/ Rinsed/ Irrigated with Irrigated with Saline Saline -Foul Odor after Cleansing No No -Bioengineered Tissue No No -Bleeding Controlled with Pressure Pressure -Treatment Response Procedure Procedure Tolerated Well Tolerated Well -Offloading Yes Yes -Type of Offloading Surgical Shoe Total Contact Cast (TCC) - Left ($) -Assistive Device(s) Walker -Debridement - Subq, 1st 20sq cm No No -Debridement - Bone, 1st 20sq cm Yes 9. R plantar -Time 14:18 11:43 09:27 -Correct Patient Yes Yes Yes -Correct Side, Site, Position Yes Yes Yes -Correct Procedure Yes Yes Yes -Procedure Performed Yes Yes Yes -Type of Procedure Debridement Debridement Debridement -Clinical Debridement Subcutaneous Subcutaneous Subcutaneous -Tissue Removed Subcutaneous Subcutaneous Subcutaneous -Post Debridement (cm) - Length 0.9 0.6 0.8 -Post Debridement (cm) - Width 0.5 0.6 0.7 -Post Debridement (cm) - Depth 0.3 0.4 0.3 -Total Square (Post) (cm) 0.45 0.36 0.56 -Area of Debridement (cm) - Length 0.9 0.6 0.8 -Area of Debridement (cm) - Width 0.5 0.6 0.7 -Total Square (Area) (cm) 0.45 0.36 0.56 -Tunneling No No No -Undermining/Tunneling No No No -Circular Undermining No No No -Wound/Ulcer Outcome Not Healed Not Healed Not Healed -Ulcer Cleansing Rinsed/ Rinsed/ Rinsed/ Irrigated with Irrigated with Irrigated with Saline Saline Saline -Foul Odor after Cleansing No No No -Bioengineered Tissue No No No -Bleeding Controlled with Pressure Pressure Pressure -Treatment Response Procedure Procedure Procedure Tolerated Well Tolerated Well Tolerated Well -Offloading Yes Yes Yes -Type of Offloading Surgical Shoe Surgical Shoe Surgical Shoe -Debridement - Subq, 1st 20sq cm No Yes No 8. L heel -Time 14:18 11:44 09:28 -Correct Patient Yes Yes Yes -Correct Side, Site, Position Yes Yes Yes -Correct Procedure Yes Yes Yes -Procedure Performed Yes Yes Yes -Type of Procedure Debridement Debridement Debridement -Clinical Debridement Subcutaneous Subcutaneous Subcutaneous -Tissue Removed Subcutaneous Subcutaneous Subcutaneous -Post Debridement (cm) - Length 3.5 2.8 2.8 -Post Debridement (cm) - Width 2.8 3.3 3.4 -Post Debridement (cm) - Depth 0.4 0.5 0.4 -Total Square (Post) (cm) 9.80 9.24 9.52 -Area of Debridement (cm) - Length 3.5 2.8 2.8 -Area of Debridement (cm) - Width 2.8 3.3 3.4 -Total Square (Area) (cm) 9.80 9.24 9.52 -Tunneling No No No -Undermining/Tunneling No No No -Circular Undermining No No No -Wound/Ulcer Outcome Not Healed Not Healed Not Healed -Ulcer Cleansing Rinsed/ Rinsed/ Rinsed/ Irrigated with Irrigated with Irrigated with Saline Saline Saline -Foul Odor after Cleansing No No No -Bioengineered Tissue No No No -Bleeding Controlled with Pressure Pressure -Treatment Response Procedure Procedure Procedure Tolerated Well Tolerated Well Tolerated Well -Offloading Yes No Yes -Type of Offloading Surgical Shoe Total Contact Cast (TCC) - Left ($) -Debridement - Subq, 1st 20sq cm No No Yes 7. L 2nd toe -Time 14:19 11:45 09:29 -Correct Patient Yes Yes Yes -Correct Side, Site, Position Yes Yes Yes -Correct Procedure Yes Yes Yes -Procedure Performed Yes Yes Yes -Type of Procedure Debridement Debridement Debridement -Clinical Debridement Subcutaneous Bone Subcutaneous -Tissue Removed Subcutaneous Subcutaneous, Subcutaneous Slough -Post Debridement (cm) - Length 0.5 0.4 0.3 -Post Debridement (cm) - Width 1.0 0.5 0.3 -Post Debridement (cm) - Depth 0.3 0.3 0.1 -Total Square (Post) (cm) 0.50 0.20 0.09 -Area of Debridement (cm) - Length 0.5 0.4 0.3 -Area of Debridement (cm) - Width 1.0 0.5 0.3 -Total Square (Area) (cm) 0.50 0.20 0.09 -Tunneling No No No -Undermining/Tunneling No No No -Circular Undermining No No No -Wound/Ulcer Outcome Not Healed Not Healed Not Healed -Ulcer Cleansing Rinsed/ Rinsed/ Rinsed/ Irrigated with Irrigated with Irrigated with Saline Saline Saline -Foul Odor after Cleansing No No No -Bioengineered Tissue No No No -Bleeding Controlled with Pressure Pressure Pressure -Treatment Response Procedure Procedure Procedure Tolerated Well Tolerated Well Tolerated Well -Offloading Yes No No -Type of Offloading Surgical Shoe -Debridement - Subq, 1st 20sq cm Yes No No -Debridement - Bone, 1st 20sq cm Yes Pain Scale: 0-10 Numeric Is Patient Pain Free? Yes Yes Yes - Nurse 3 - General Ulcer D/C NN Start: 03/09/22 13:55 Freq: Status: Active Protocol: Activity Type Activity Date Activity User E-sign Co-sign Detail Recorded Client Recorded Date Recorded By Document 03/09/22 14:38 [facility] [id number] 03/09/22 14:40 [facility] Document 03/23/22 08:58 [facility] [id number] 03/23/22 09:02 [facility] 03/09/22 03/23/22 14:38 08:58 Wound Care Nurse 3 #10 L 3rd toe -Ulcer Cleansing Rinsed/ Irrigated with Saline -Foul Odor after Cleansing No -Primary Dressing Applied Other -Other Dressing MOIST TO DRY PER [employer] CABLE JOINTER -Primary Dressing Covered/Secured with Dry Gauze & Roll Gauze, Secured with Tape 9. R plantar -Ulcer Cleansing Rinsed/ Rinsed/ Irrigated with Irrigated with Saline Saline -Foul Odor after Cleansing No No -Primary Dressing Applied Promogran Other Michael Matter -Other Dressing PER [employer] CABLE JOINTER michael -Primary Dressing Covered/Secured with Dry Gauze & Dry Gauze, Roll Gauze, Secured with Secured with Tape Tape -Other Covering drsg per dl store grocery merchandiser -Promogran Michael Matter 1 8. L heel -Ulcer Cleansing Rinsed/ Rinsed/ Irrigated with Irrigated with Saline Saline -Foul Odor after Cleansing No No -Primary Dressing Applied Other -Other Dressing MOIST TO DRY michael; sample optilock; tcc undercast per dl store grocery merchandiser -Primary Dressing Covered/Secured with Dry Gauze & Roll Gauze, Secured with Tape -Other Covering PER [place] [employer] CABLE JOINTER 7. L 2nd toe -Ulcer Cleansing Rinsed/ Rinsed/ Irrigated with Irrigated with Saline Saline -Foul Odor after Cleansing No No -Primary Dressing Applied Other Other -Other Dressing MOIST TO DRY betadine, sample optilock , tcc undercast per dl store grocery merchandiser -Primary Dressing Covered/Secured with Dry Gauze & Roll Gauze, Secured with Tape -Other Covering DRSG PER [employer] CABLE JOINTER BLE -Other PT REFUSED APPLICATION; STATES THEY ITCH Treatment Response Procedure Procedure Tolerated Well Tolerated Well Pain Scale: 0-10 Numeric Is Patient Pain Free? Yes Yes WC - Visit Discharge Discharge Condition Stable Stable Ambulatory Status Ambulatory Ambulatory Transportation Private Auto Private Auto Assessment/Plan Assessment/Plan (1) Ulcer of right foot with fat layer exposed: CODE(S): L97.512 - Non-pressure chronic ulcer of other part of right foot with fat layer exposed (2) Lupus (systemic lupus erythematosus): CODE(S): M32.9 - Systemic lupus erythematosus, unspecified (3) Ulcer of left foot with fat layer exposed: CODE(S): L97.522 - Non-pressure chronic ulcer of other part of left foot with fat layer exposed (4) MRSA (methicillin resistant staph aureus) culture positive: CODE(S): Z22.322 - Carrier or suspected carrier of Methicillin resistant Staphylococcus aureus (5) Cellulitis of left lower limb: CODE(S): L03.116 - Cellulitis of left lower limb (6) Delayed wound healing: CODE(S): T14.8XXD - Other injury of unspecified body region, subsequent encounter (7) Non-pressure chronic ulcer of other part of left foot with necrosis of bone: CODE(S): L97.524 - Non-pressure chronic ulcer of other part of left foot with necrosis of bone PLAN: Plan I reviewed and discussed her case. Subcutaneous excisional debridement was performed as noted in the clinical panel bilateral. Diagnostic data was also reviewed. The following recommendations were made. Change dressing daily with Michael to the right and betadine wet to dry (2nd toe) and michael (heel) applied left prior to cast application Wash with soap and water offloading: To maintain strict nonweightbearing status with the knee roller, left and heel weightbear right in surgical shoe. Total contact cast was applied today according to standard protocol (left) after verbal consent was obtained. She tolerated this well and will keep this clean, dry, and intact. Infection: culture from wound with MRSA. Concern is deeper infection involvement due to bulbous toe appearance including potential osteomyelitis. She has been taking doxycycline with some mild improvement however this is in regards to reduced erythema. It is noted she has continued communication with deep structures including the bone and there was bone that was debrided today from the left second toe. Infectious disease specialist, Dr. Reyes also saw and evaluated her today and input is greatly appreciated. She was advised to continue doxycycline and Augmentin will also be added to her regimen. She understands amputation will be recommended if she fails oral antibiotic treatment course of at least 6 weeks. ID recs appreciated. Improvement noted. nutrition: She was advised to maintain a balanced whole food diet with adequate protein and nutrients to optimize healing. To resume Yosvany supplementation use. Host factors. Neuropathy complicates her case. To monitor close due to inability to sensate as normal. She was also advised to avoid prednisone use and will also hold the Plaquenil at this time unless she has an intense flareup. This was previously reviewed verbally with Dr. Pratt. She also has a calcaneus gait with prior surgical intervention including a tendon transfer which is compromised with a fall in the early postoperative setting. We previously discussed options to surgically alleviate her calcaneus gait including retightening the Achilles tendon or other posterior leg muscles. Updated vascular (arterial) and doppler with reflux (venous) was ordered to assess for any abnormalities. The arterial studies were reviewed and no arterial disease or occlusions were identified. Venous insufficiency work-up is still pending. Diagnostic data: Her bilateral foot xrays (three views) were reviewed from [facility] from 02/08/2022 without soft tissue emphysema, osseous destruction or foreign body. Chip fracture to first metatarsal phalangeal joint area of right foot noted. Labs reviewed from 02/15/22 with wbc 9.4, no renal dysfunction or other gross abnormalities. Note: Inspire speech recognition slime plant operator helper software was used to create portions of this document. Sound-alike and misspelled words, as well as other slime plant operator helper errors may be contained in the documentation.
[2022-03-30 08:08] VITALS: BP 120/75; PULSE 111; RESP 18; TEMP 36.1; BMI 37.2
--- NOTE | 2022-03-30 08:36 | PN.PCM_ITS ---
History of Present Illness Date of Service: 03/30/22 Chief Complaint: Left heel ulcer, second toe right foot ulcer History of Wound: This pleasant 56-year-old female with significant past medical history of lupus, history of panic attack, depression, history of delayed healing, hyperlipidemia, irritable bowel syndrome, memory loss, restless leg syndrome, and obstructive sleep apnea is here for follow-up of left heel ulcer. She denies fever, chill, nausea, vomiting. She takes antibiotics as advised by Dr. Reyes. She is amendable to have a cast applied today. She tolerated the left extremity cast well last week. She wears a surgical shoe on the right foot. She was more active last week because she was take care of her who has a new burn injury from a work accident. Progress of Wound: Stable right foot and left heel healed left second toe Objective Data Objective Data Vital Signs: Vital Signs Temp Pulse Resp BP 97 F L 111 H 18 120/75 03/30/22 08:08 03/30/22 08:08 03/30/22 08:08 03/30/22 08:08 Oxygen Delivery Method Room Air Weight: 111.13 kg Body Mass Index (BMI) 37.2 Physical Exam Const alert and oriented x3 General Appearance: cooperative HEENT normocephalic Extremity Extremity Narrative: No calf tenderness Diminished pulses Muscle wasting noted General Extremity: edema and no tenderness to palpation of joints or extremities; Negative for cyanosis Skin Skin Narrative: no purulence, no streaking, no odor, no infection granular base ulcer without maceration, necrosis or deep tissue exposure to left heel (resolved erythema and no bone exposure today) healed left second toe; full epithelialization no bogginess or fluctuance on palpation bilateral. General Skin Exam: Negative for erythema Neuro Neuro Narrative: lack of normal epicritic sensation via light touch is consistent with neuropathy status Psych cooperative and affect normal Debridement Note Debridement Note Post-Debridement Measurements and Additional Note: Post-Debridement Measurements/Treatment ARACELI - Nurse 1 - General Ulcer Assessment Start: 03/09/22 13:55 Freq: Status: Active Protocol: [email or web address].[email or web address] Activity Type Activity Date Activity User E-sign Co-sign Detail Recorded Client Recorded Date Recorded By Document 03/09/22 13:55 DL [id number] 03/09/22 14:05 DL Document 03/16/22 11:26 DL [id number] 03/16/22 11:38 DL Document 03/23/22 08:23 BM [id number] 03/23/22 08:38 BMF Document 03/30/22 08:08 RB [id number] 03/30/22 08:16 RB 03/09/22 03/16/22 03/23/22 13:55 11:26 08:23 WC - Today's Visit Information Type of service Follow-up Visit Follow-up Visit Follow-up Visit (Physician/FAMILY HEALTH NURSE PRACTITIONER (Physician/FAMILY HEALTH NURSE PRACTITIONER (Physician/FAMILY HEALTH NURSE PRACTITIONER ) ) ) Arrival Mode Ambulatory Ambulatory Ambulatory Transfer Assistance None None None Patient Identification Verified (Name & Yes Yes Yes ) Patient Requires Transmission-Based No No Precautions Height and Weight Body Mass Index (BMI) 37.2 37.2 37.2 BMI Classification Obese Obese Obese Vital Signs Temperature (97.8 F-99.1 F) 97.3 F L 97.5 F L 96.5 F L Temperature Source Temporal Temporal Temporal Pulse Rate (60-100) 110 H 101 H Pulse Location Monitor Monitor Monitor Respiratory Rate (12-18) 20 H 18 16 Respiratory rate source Observation Observation Oxygen Delivery Method Room Air Blood Pressure (90/60-120/80) 139/83 H 136/77 H Blood Pressure Mean (mm Hg) 101 96 Source Monitor Monitor Monitor Position Sitting Blood Pressure Location Left Arm History Since Last Visit- (Skip if this is Patient's initial visit) Have you changed medications since your No No No last visit? Any new allergies or adverse reactions No No No Had a fall/change in ADL's that may No No No increase risk of falls Signs or symptoms of abuse and/or No No No neglect since last visit Have you been in the hospital since your No No No last visit? Has dressing in place as prescribed Yes Yes Yes Has compression in place as prescribed N/A N/A N/A Has offloadiing in place as prescribed Yes Yes Yes Experienced any changes in pain level or No No No management Left Footwear Surgical Shoe Total Contact with pressure Cast relief insole Right Footwear Surgical Shoe Surgical Shoe Surgical Shoe with pressure with pressure with pressure relief insole relief insole relief insole Pain Scale: 0-10 Numeric Is Patient Pain Free? Yes Yes Yes 03/30/22 08:08 WC - Today's Visit Information Type of service Follow-up Visit (Physician/FAMILY HEALTH NURSE PRACTITIONER ) Arrival Mode Ambulatory Transfer Assistance None Patient Identification Verified (Name & Yes ) Patient Requires Transmission-Based No Precautions Height and Weight Body Mass Index (BMI) 37.2 BMI Classification Obese Vital Signs Temperature (97.8 F-99.1 F) 97 F L Temperature Source Temporal Pulse Rate (60-100) 111 H Pulse Location Monitor Respiratory Rate (12-18) 18 Respiratory rate source Observation Oxygen Delivery Method Blood Pressure (90/60-120/80) 120/75 Blood Pressure Mean (mm Hg) 90 Source Monitor Position Semi-Fowlers Blood Pressure Location Right Arm History Since Last Visit- (Skip if this is Patient's initial visit) Have you changed medications since your No last visit? Any new allergies or adverse reactions No Had a fall/change in ADL's that may No increase risk of falls Signs or symptoms of abuse and/or No neglect since last visit Have you been in the hospital since your No last visit? Has dressing in place as prescribed Yes Has compression in place as prescribed No Has offloadiing in place as prescribed Yes Experienced any changes in pain level or No management Left Footwear Regular Shoe Right Footwear Total Contact Cast Pain Scale: 0-10 Numeric Is Patient Pain Free? Yes WC - Nurse 1 - General Ulcer Measurement Start: 03/09/22 13:55 Freq: Status: Active Protocol: Activity Type Activity Date Activity User E-sign Co-sign Detail Recorded Client Recorded Date Recorded By Document 03/09/22 13:55 DL [id number] 03/09/22 14:05 DL Document 03/16/22 11:26 DL [id number] 03/16/22 11:38 DL Document 03/23/22 08:23 [facility] [id number] 03/23/22 08:38 BMF Document 03/30/22 08:08 RB [id number] 03/30/22 08:16 RB 03/09/22 03/16/22 03/23/22 13:55 11:26 08:23 Wound Center Nurse 1 #10 L 3rd toe -Combined with other wound No -Current Size (cm) - Length 0.9 0.3 0.1 -Current Size (cm) - Width 0.8 0.4 0.1 -Current Size (cm) - Depth 0.2 0.1 0.1 -Total Square Cm 0.72 0.12 0.01 -Photo Taken No No No -Epithelialization Large 67-100% -Exudate Amt Medium None Present -Exudate Type Serosanguineous -Wound Margin Thickened Thickened -Granulation Amt Small (1-33%) Small (1-33%) -Granulation Quality [place] -Necrosis Amt Small (1-33%) Small (1-33%) -Necrotic Tissue Type Adherent Slough Adherent Slough -Structure Exposed N/A -Texture (Cecelia-wound Skin Appearance) Callus,Scarring Assessed,Callus -Moisture (Cecelia-wound Skin Appearance) No Abnormality, Assessed,Dry/ Dry/Scaly Scaly -Color (Cecelia-wound Skin Appearance) No Abnormality Assessed -Temperature (Cecelia-wound Skin No Abnormality Appearance) (Pt Warm) -Tenderness on Palpation (Cecelia-wound No Skin Appearance) -Ulcer Cleansing Soap and Water -Foul Odor after Cleansing No -Anesthetic Used 5% Lidocaine Gel 7. L 2nd toe -Combined with other wound No -Current Size (cm) - Length 0.5 0.3 0.2 -Current Size (cm) - Width 0.9 0.5 0.3 -Current Size (cm) - Depth 0.3 0.4 0.1 -Total Square Cm 0.45 0.15 0.06 -Photo Taken No No No -Epithelialization Small 1-33% -Tunneling No -Undermining/Tunneling No -Maximum Distance #2 (cm) 0.2 -Circular Undermining Yes No -Exudate Amt Small Small Small -Exudate Type Serosanguineous Serosanguineous Serosanguineous -Wound Margin Thickened Thickened Distinct, Outline Attached -Granulation Amt Large (67-100%) None Present (0 Large (67-100%) %) -Granulation Quality Pale [place] -Slough/Fibrin Yes -Necrosis Amt Small (1-33%) Large (67-100%) Small (1-33%) -Necrotic Tissue Type Adherent Slough Adherent Slough Adherent Slough -Structure Exposed Bone,N/A N/A -Texture (Cecelia-wound Skin Appearance) Callus,Scarring Callus, Assessed,Callus Localized Edema ,Scarring ,Scarring -Moisture (Cecelia-wound Skin Appearance) Dry/Scaly Dry/Scaly Assessed,Dry/ Scaly -Color (Cecelia-wound Skin Appearance) No Abnormality Erythema Assessed -Temperature (Cecelia-wound Skin No Abnormality No Abnormality No Abnormality Appearance) (Pt Warm) (Pt Warm) (Pt Warm) -Tenderness on Palpation (Cecelia-wound No No No Skin Appearance) -Ulcer Cleansing Soap and Water Soap and Water Soap and Water -Foul Odor after Cleansing No No No -Anesthetic Used 5% Lidocaine 5% Lidocaine 4% Lidocaine Gel Gel Solution 9. R plantar -Combined with other wound No -Current Size (cm) - Length 0.8 0.6 0.8 -Current Size (cm) - Width 0.4 0.5 0.6 -Current Size (cm) - Depth 0.3 0.4 0.4 -Total Square Cm 0.32 0.30 0.48 -Photo Taken No No No -Epithelialization Small 1-33% -Tunneling No -Undermining/Tunneling Yes -Undermining/Tunneling Starts (O'clock 8 12 ) -Undermining/Tunneling Ends (O'clock) 12 12 -Maximum Distance (cm) 0.3 0.4 -Maximum Distance #2 (cm) 0.3 -Circular Undermining Yes Yes -Exudate Amt Small Small Small -Exudate Type Serosanguineous Serosanguineous -Wound Margin Thickened Distinct, Outline Attached -Granulation Amt Small (1-33%) Small (1-33%) Large (67-100%) -Granulation Quality Red [place] Red -Slough/Fibrin -Necrosis Amt Small (1-33%) Small (1-33%) -Necrotic Tissue Type Adherent Slough Adherent Slough -Structure Exposed N/A N/A -Texture (Cecelia-wound Skin Appearance) Callus,Scarring Callus Assessed, Scarring -Moisture (Cecelia-wound Skin Appearance) No Abnormality No Abnormality Assessed -Color (Cecelia-wound Skin Appearance) No Abnormality No Abnormality Assessed, Erythema -Temperature (Cecelia-wound Skin No Abnormality No Abnormality No Abnormality Appearance) (Pt Warm) (Pt Warm) (Pt Warm) -Tenderness on Palpation (Cecelia-wound No No No Skin Appearance) -Ulcer Cleansing Soap and Water Soap and Water Soap and Water -Foul Odor after Cleansing No No No -Anesthetic Used 5% Lidocaine 5% Lidocaine 4% Lidocaine Gel Gel Solution 8. L heel -Combined with other wound No -Current Size (cm) - Length 3.4 2.7 2.8 -Current Size (cm) - Width 2.8 3.3 3.3 -Current Size (cm) - Depth 0.4 0.5 0.4 -Total Square Cm 9.52 8.91 9.24 -Photo Taken No No No -Epithelialization Small 1-33% -Tunneling No -Undermining/Tunneling No -Undermining/Tunneling Starts (O'clock 8 ) -Undermining/Tunneling Ends (O'clock) 1 -Maximum Distance (cm) 0.3 -Circular Undermining No -Exudate Amt Small Medium Large -Exudate Type Serosanguineous Serosanguineous Serosanguineous -Wound Margin Thickened Thickened Distinct, Outline Attached -Granulation Amt Large (67-100%) Large (67-100%) Large (67-100%) -Granulation Quality Red Red [place] -Slough/Fibrin Yes -Necrosis Amt Small (1-33%) Small (1-33%) Small (1-33%) -Necrotic Tissue Type Adherent Slough Adherent Slough Adherent Slough -Structure Exposed N/A -Texture (Cecelia-wound Skin Appearance) Callus Scarring Assessed, Scarring -Moisture (Cecelia-wound Skin Appearance) No Abnormality Dry/Scaly Assessed, Maceration -Color (Cecelia-wound Skin Appearance) No Abnormality No Abnormality Assessed -Temperature (Cecelia-wound Skin No Abnormality No Abnormality No Abnormality Appearance) (Pt Warm) (Pt Warm) (Pt Warm) -Tenderness on Palpation (Cecelia-wound No No No Skin Appearance) -Ulcer Cleansing Soap and Water Soap and Water Soap and Water -Foul Odor after Cleansing No No No -Anesthetic Used 5% Lidocaine 5% Lidocaine 4% Lidocaine Gel Gel Solution 03/30/22 08:08 Wound Center Nurse 1 #10 L 3rd toe -Combined with other wound -Current Size (cm) - Length -Current Size (cm) - Width -Current Size (cm) - Depth -Total Square Cm -Photo Taken -Epithelialization -Exudate Amt -Exudate Type -Wound Margin -Granulation Amt -Granulation Quality -Necrosis Amt -Necrotic Tissue Type -Structure Exposed -Texture (Cecelia-wound Skin Appearance) -Moisture (Cecelia-wound Skin Appearance) -Color (Cecelia-wound Skin Appearance) -Temperature (Cecelia-wound Skin Appearance) -Tenderness on Palpation (Cecelia-wound Skin Appearance) -Ulcer Cleansing -Foul Odor after Cleansing -Anesthetic Used 7. L 2nd toe -Combined with other wound No -Current Size (cm) - Length 0.1 -Current Size (cm) - Width 0.1 -Current Size (cm) - Depth 0.1 -Total Square Cm 0.01 -Photo Taken -Epithelialization -Tunneling No -Undermining/Tunneling No -Maximum Distance #2 (cm) -Circular Undermining No -Exudate Amt Medium -Exudate Type Serosanguineous -Wound Margin Distinct, Outline Attached -Granulation Amt Medium (34-66%) -Granulation Quality [place] -Slough/Fibrin Yes -Necrosis Amt Small (1-33%) -Necrotic Tissue Type Adherent Slough -Structure Exposed N/A -Texture (Cecelia-wound Skin Appearance) Callus -Moisture (Cecelia-wound Skin Appearance) Assessed -Color (Cecelia-wound Skin Appearance) Assessed -Temperature (Cecelia-wound Skin No Abnormality Appearance) (Pt Warm) -Tenderness on Palpation (Cecelia-wound No Skin Appearance) -Ulcer Cleansing Wound Cleanser -Foul Odor after Cleansing No -Anesthetic Used 5% Lidocaine Gel 9. R plantar -Combined with other wound No -Current Size (cm) - Length 1.1 -Current Size (cm) - Width 1 -Current Size (cm) - Depth 0.3 -Total Square Cm 1.1 -Photo Taken -Epithelialization -Tunneling No -Undermining/Tunneling No -Undermining/Tunneling Starts (O'clock ) -Undermining/Tunneling Ends (O'clock) -Maximum Distance (cm) -Maximum Distance #2 (cm) -Circular Undermining No -Exudate Amt Medium -Exudate Type Serosanguineous -Wound Margin Distinct, Outline Attached -Granulation Amt Large (67-100%) -Granulation Quality [place] -Slough/Fibrin Yes -Necrosis Amt Medium (34-66%) -Necrotic Tissue Type Adherent Slough -Structure Exposed Fat Layer Exposed -Texture (Cecelia-wound Skin Appearance) Assessed,Callus -Moisture (Cecelia-wound Skin Appearance) Assessed -Color (Cecelia-wound Skin Appearance) Assessed -Temperature (Cecelia-wound Skin No Abnormality Appearance) (Pt Warm) -Tenderness on Palpation (Cecelia-wound No Skin Appearance) -Ulcer Cleansing Wound Cleanser -Foul Odor after Cleansing No -Anesthetic Used 5% Lidocaine Gel 8. L heel -Combined with other wound No -Current Size (cm) - Length 2.4 -Current Size (cm) - Width 2.8 -Current Size (cm) - Depth 0.4 -Total Square Cm 6.72 -Photo Taken -Epithelialization -Tunneling No -Undermining/Tunneling No -Undermining/Tunneling Starts (O'clock ) -Undermining/Tunneling Ends (O'clock) -Maximum Distance (cm) -Circular Undermining No -Exudate Amt Large -Exudate Type Serosanguineous -Wound Margin Distinct, Outline Attached -Granulation Amt Medium (34-66%) -Granulation Quality [place] -Slough/Fibrin Yes -Necrosis Amt Medium (34-66%) -Necrotic Tissue Type -Structure Exposed N/A -Texture (Cecelia-wound Skin Appearance) Assessed,Callus -Moisture (Cecelia-wound Skin Appearance) Maceration -Color (Cecelia-wound Skin Appearance) Assessed -Temperature (Cecelia-wound Skin No Abnormality Appearance) (Pt Warm) -Tenderness on Palpation (Cecelia-wound No Skin Appearance) -Ulcer Cleansing Wound Cleanser -Foul Odor after Cleansing No -Anesthetic Used 5% Lidocaine Gel WC - Nurse 2 - General Ulcer CM Notes Start: 03/09/22 13:55 Freq: Status: Active Protocol: Activity Type Activity Date Activity User E-sign Co-sign Detail Recorded Client Recorded Date Recorded By Document 03/09/22 14:16 [id number] 03/09/22 14:21 Edit Result 03/09/22 14:16 JF (1) [id number] 03/09/22 14:22 Document 03/16/22 11:42 [id number] 03/16/22 11:46 JF Edit Result 03/16/22 11:42 JF (2) [id number] 03/16/22 16:27 JF Edit Result 03/16/22 11:42 JF (3) [id number] 03/16/22 16:28 JF Document 03/23/22 09:27 JF [id number] 03/23/22 09:30 JF Document 03/30/22 08:27 [id number] 03/30/22 08:33 JF (1) #10 L 3rd toe - Clinical Debridement Subcutaneous => Bone - Tissue Removed Subcutaneous => Biofilm - Debridement - Bone, 1st 20sq cm => Yes (2) 7. L 2nd toe - Clinical Debridement Subcutaneous => Bone - Tissue Removed Subcutaneous => Subcutaneous, => Slough - Debridement - Subq, 1st 20sq cm Yes => No - Debridement - Bone, 1st 20sq cm => Yes (3) 9. R plantar - Debridement - Subq, 1st 20sq cm No => Yes 03/09/22 03/16/22 03/23/22 14:16 11:42 09:27 Wound Center Nurse 2 #10 L 3rd toe -Time 14:17 11:43 -Correct Patient Yes Yes -Correct Side, Site, Position Yes Yes -Correct Procedure Yes Yes -Procedure Performed Yes Yes -Type of Procedure Debridement Debridement -Clinical Debridement Bone Subcutaneous -Tissue Removed Biofilm Subcutaneous -Post Debridement (cm) - Length 1.0 0.4 -Post Debridement (cm) - Width 0.8 0.4 -Post Debridement (cm) - Depth 0.2 0.1 -Total Square (Post) (cm) 0.80 0.16 -Area of Debridement (cm) - Length 1.0 0.4 -Area of Debridement (cm) - Width 0.8 0.4 -Total Square (Area) (cm) 0.80 0.16 -Tunneling No No -Undermining/Tunneling No No -Circular Undermining No No -Wound/Ulcer Outcome Not Healed Not Healed -Ulcer Cleansing Rinsed/ Rinsed/ Irrigated with Irrigated with Saline Saline -Foul Odor after Cleansing No No -Bioengineered Tissue No No -Bleeding Controlled with Pressure Pressure -Treatment Response Procedure Procedure Tolerated Well Tolerated Well -Offloading Yes Yes -Type of Offloading Surgical Shoe Total Contact Cast (TCC) - Left ($) -Assistive Device(s) Walker -Debridement - Subq, 1st 20sq cm No No -Debridement - Bone, 1st 20sq cm Yes 7. L 2nd toe -Time 14:19 11:45 09:29 -Correct Patient Yes Yes Yes -Correct Side, Site, Position Yes Yes Yes -Correct Procedure Yes Yes Yes -Procedure Performed Yes Yes Yes -Type of Procedure Debridement Debridement Debridement -Clinical Debridement Subcutaneous Bone Subcutaneous -Tissue Removed Subcutaneous Subcutaneous, Subcutaneous Slough -Post Debridement (cm) - Length 0.5 0.4 0.3 -Post Debridement (cm) - Width 1.0 0.5 0.3 -Post Debridement (cm) - Depth 0.3 0.3 0.1 -Total Square (Post) (cm) 0.50 0.20 0.09 -Area of Debridement (cm) - Length 0.5 0.4 0.3 -Area of Debridement (cm) - Width 1.0 0.5 0.3 -Total Square (Area) (cm) 0.50 0.20 0.09 -Tunneling No No No -Undermining/Tunneling No No No -Circular Undermining No No No -Wound/Ulcer Outcome Not Healed Not Healed Not Healed -Ulcer Cleansing Rinsed/ Rinsed/ Rinsed/ Irrigated with Irrigated with Irrigated with Saline Saline Saline -Foul Odor after Cleansing No No No -Bioengineered Tissue No No No -Bleeding Controlled with Pressure Pressure Pressure -Treatment Response Procedure Procedure Procedure Tolerated Well Tolerated Well Tolerated Well -Offloading Yes No No -Type of Offloading Surgical Shoe -Debridement - Subq, 1st 20sq cm Yes No No -Debridement - Bone, 1st 20sq cm Yes 9. R plantar -Time 14:18 11:43 09:27 -Correct Patient Yes Yes Yes -Correct Side, Site, Position Yes Yes Yes -Correct Procedure Yes Yes Yes -Procedure Performed Yes Yes Yes -Type of Procedure Debridement Debridement Debridement -Clinical Debridement Subcutaneous Subcutaneous Subcutaneous -Tissue Removed Subcutaneous Subcutaneous Subcutaneous -Post Debridement (cm) - Length 0.9 0.6 0.8 -Post Debridement (cm) - Width 0.5 0.6 0.7 -Post Debridement (cm) - Depth 0.3 0.4 0.3 -Total Square (Post) (cm) 0.45 0.36 0.56 -Area of Debridement (cm) - Length 0.9 0.6 0.8 -Area of Debridement (cm) - Width 0.5 0.6 0.7 -Total Square (Area) (cm) 0.45 0.36 0.56 -Tunneling No No No -Undermining/Tunneling No No No -Circular Undermining No No No -Wound/Ulcer Outcome Not Healed Not Healed Not Healed -Ulcer Cleansing Rinsed/ Rinsed/ Rinsed/ Irrigated with Irrigated with Irrigated with Saline Saline Saline -Foul Odor after Cleansing No No No -Bioengineered Tissue No No No -Bleeding Controlled with Pressure Pressure Pressure -Treatment Response Procedure Procedure Procedure Tolerated Well Tolerated Well Tolerated Well -Offloading Yes Yes Yes -Type of Offloading Surgical Shoe Surgical Shoe Surgical Shoe -Debridement - Subq, 1st 20sq cm No Yes No 8. L heel -Time 14:18 11:44 09:28 -Correct Patient Yes Yes Yes -Correct Side, Site, Position Yes Yes Yes -Correct Procedure Yes Yes Yes -Procedure Performed Yes Yes Yes -Type of Procedure Debridement Debridement Debridement -Clinical Debridement Subcutaneous Subcutaneous Subcutaneous -Tissue Removed Subcutaneous Subcutaneous Subcutaneous -Post Debridement (cm) - Length 3.5 2.8 2.8 -Post Debridement (cm) - Width 2.8 3.3 3.4 -Post Debridement (cm) - Depth 0.4 0.5 0.4 -Total Square (Post) (cm) 9.80 9.24 9.52 -Area of Debridement (cm) - Length 3.5 2.8 2.8 -Area of Debridement (cm) - Width 2.8 3.3 3.4 -Total Square (Area) (cm) 9.80 9.24 9.52 -Tunneling No No No -Undermining/Tunneling No No No -Circular Undermining No No No -Wound/Ulcer Outcome Not Healed Not Healed Not Healed -Ulcer Cleansing Rinsed/ Rinsed/ Rinsed/ Irrigated with Irrigated with Irrigated with Saline Saline Saline -Foul Odor after Cleansing No No No -Bioengineered Tissue No No No -Bleeding Controlled with Pressure Pressure -Treatment Response Procedure Procedure Procedure Tolerated Well Tolerated Well Tolerated Well -Offloading Yes No Yes -Type of Offloading Surgical Shoe Total Contact Cast (TCC) - Left ($) -Debridement - Subq, 1st 20sq cm No No Yes Pain Scale: 0-10 Numeric Is Patient Pain Free? Yes Yes Yes 03/30/22 08:27 Wound Center Nurse 2 #10 L 3rd toe -Time -Correct Patient -Correct Side, Site, Position -Correct Procedure -Procedure Performed -Type of Procedure -Clinical Debridement -Tissue Removed -Post Debridement (cm) - Length -Post Debridement (cm) - Width -Post Debridement (cm) - Depth -Total Square (Post) (cm) -Area of Debridement (cm) - Length -Area of Debridement (cm) - Width -Total Square (Area) (cm) -Tunneling -Undermining/Tunneling -Circular Undermining -Wound/Ulcer Outcome -Ulcer Cleansing -Foul Odor after Cleansing -Bioengineered Tissue -Bleeding Controlled with -Treatment Response -Offloading -Type of Offloading -Assistive Device(s) -Debridement - Subq, 1st 20sq cm -Debridement - Bone, 1st 20sq cm 7. L 2nd toe -Time -Correct Patient No -Correct Side, Site, Position No -Correct Procedure No -Procedure Performed No -Type of Procedure -Clinical Debridement -Tissue Removed -Post Debridement (cm) - Length 0 -Post Debridement (cm) - Width 0 -Post Debridement (cm) - Depth 0 -Total Square (Post) (cm) 0 -Area of Debridement (cm) - Length 0 -Area of Debridement (cm) - Width 0 -Total Square (Area) (cm) 0 -Tunneling -Undermining/Tunneling -Circular Undermining -Wound/Ulcer Outcome Healed- Epithelialized -Ulcer Cleansing -Foul Odor after Cleansing -Bioengineered Tissue -Bleeding Controlled with -Treatment Response -Offloading -Type of Offloading -Debridement - Subq, 1st 20sq cm -Debridement - Bone, 1st 20sq cm 9. R plantar -Time 08:27 -Correct Patient Yes -Correct Side, Site, Position Yes -Correct Procedure Yes -Procedure Performed Yes -Type of Procedure Debridement -Clinical Debridement Subcutaneous -Tissue Removed Subcutaneous -Post Debridement (cm) - Length 1.1 -Post Debridement (cm) - Width 1.1 -Post Debridement (cm) - Depth 0.3 -Total Square (Post) (cm) 1.21 -Area of Debridement (cm) - Length 1.1 -Area of Debridement (cm) - Width 1.1 -Total Square (Area) (cm) 1.21 -Tunneling No -Undermining/Tunneling No -Circular Undermining No -Wound/Ulcer Outcome Not Healed -Ulcer Cleansing Rinsed/ Irrigated with Saline -Foul Odor after Cleansing No -Bioengineered Tissue No -Bleeding Controlled with Pressure -Treatment Response Procedure Tolerated Well -Offloading Yes -Type of Offloading Surgical Shoe -Debridement - Subq, 1st 20sq cm Yes 8. L heel -Time 08:28 -Correct Patient Yes -Correct Side, Site, Position Yes -Correct Procedure Yes -Procedure Performed Yes -Type of Procedure Debridement -Clinical Debridement Subcutaneous -Tissue Removed Subcutaneous -Post Debridement (cm) - Length 2.5 -Post Debridement (cm) - Width 2.8 -Post Debridement (cm) - Depth 0.4 -Total Square (Post) (cm) 7.00 -Area of Debridement (cm) - Length 2.5 -Area of Debridement (cm) - Width 2.8 -Total Square (Area) (cm) 7.00 -Tunneling No -Undermining/Tunneling No -Circular Undermining No -Wound/Ulcer Outcome Not Healed -Ulcer Cleansing Rinsed/ Irrigated with Saline -Foul Odor after Cleansing No -Bioengineered Tissue No -Bleeding Controlled with Pressure -Treatment Response Procedure Tolerated Well -Offloading Yes -Type of Offloading Total Contact Cast (TCC) - Left ($) -Debridement - Subq, 1st 20sq cm No Pain Scale: 0-10 Numeric Is Patient Pain Free? Yes WC - Nurse 3 - General Ulcer D/C NN Start: 03/09/22 13:55 Freq: Status: Active Protocol: Activity Type Activity Date Activity User E-sign Co-sign Detail Recorded Client Recorded Date Recorded By Document 03/09/22 14:38 [facility] [id number] 03/09/22 14:40 [facility] Document 03/23/22 08:58 [facility] [id number] 03/23/22 09:02 [facility] Document 03/30/22 08:34 [facility] [id number] 03/30/22 08:35 [facility] 03/09/22 03/23/22 03/30/22 14:38 08:58 08:34 Wound Care Nurse 3 #10 L 3rd toe -Ulcer Cleansing Rinsed/ Irrigated with Saline -Foul Odor after Cleansing No -Primary Dressing Applied Other -Other Dressing MOIST TO DRY PER [place] CUSHION STUFFER -Primary Dressing Covered/Secured with Dry Gauze & Roll Gauze, Secured with Tape 7. L 2nd toe -Ulcer Cleansing Rinsed/ Rinsed/ Irrigated with Irrigated with Saline Saline -Foul Odor after Cleansing No No -Primary Dressing Applied Other Other -Other Dressing MOIST TO DRY betadine, sample optilock , tcc undercast per dl general sales manager -Primary Dressing Covered/Secured with Dry Gauze & Roll Gauze, Secured with Tape -Other Covering DRSG PER [place] CUSHION STUFFER 9. R plantar -Ulcer Cleansing Rinsed/ Rinsed/ Rinsed/ Irrigated with Irrigated with Irrigated with Saline Saline Saline -Foul Odor after Cleansing No No No -Primary Dressing Applied Promogran Other Promogran Michael Matter Michael Matter -Other Dressing PER [place] CUSHION STUFFER michael drsg per rb rn -Primary Dressing Covered/Secured with Dry Gauze & Dry Gauze, Dry Gauze, Roll Gauze, Secured with Secured with Secured with Tape Tape Tape -Other Covering drsg per dl general sales manager -Promogran Michael Matter 1 1 8. L heel -Ulcer Cleansing Rinsed/ Rinsed/ Rinsed/ Irrigated with Irrigated with Irrigated with Saline Saline Saline -Foul Odor after Cleansing No No No -Primary Dressing Applied Other Promogran Michael Matter -Other Dressing MOIST TO DRY michael; sample super absorbe w optilock; tcc / tcc undercast undercast per , drsg per rb dl rn charge -Primary Dressing Covered/Secured with Dry Gauze & Roll Gauze, Secured with Tape -Other Covering PER [place] CUSHION STUFFER -Promogran Michael Matter 0 BLE -Other PT REFUSED APPLICATION; STATES THEY ITCH Treatment Response Procedure Procedure Procedure Tolerated Well Tolerated Well Tolerated Well Pain Scale: 0-10 Numeric Is Patient Pain Free? Yes Yes Yes WC - Visit Discharge Discharge Condition Stable Stable Stable Ambulatory Status Ambulatory Ambulatory Ambulatory Transportation Private Auto Private Auto Private Auto Assessment/Plan Assessment/Plan (1) Ulcer of right foot with fat layer exposed: CODE(S): L97.512 - Non-pressure chronic ulcer of other part of right foot with fat layer exposed (2) Lupus (systemic lupus erythematosus): CODE(S): M32.9 - Systemic lupus erythematosus, unspecified (3) Ulcer of left foot with fat layer exposed: CODE(S): L97.522 - Non-pressure chronic ulcer of other part of left foot with fat layer exposed (4) MRSA (methicillin resistant staph aureus) culture positive: CODE(S): Z22.322 - Carrier or suspected carrier of Methicillin resistant Staphylococcus aureus (5) Cellulitis of left lower limb: CODE(S): L03.116 - Cellulitis of left lower limb (6) Delayed wound healing: CODE(S): T14.8XXD - Other injury of unspecified body region, subsequent encounter (7) Non-pressure chronic ulcer of other part of left foot with necrosis of bone: CODE(S): L97.524 - Non-pressure chronic ulcer of other part of left foot with necrosis of bone PLAN: Plan I reviewed and discussed her case. Subcutaneous excisional debridement was performed as noted in the clinical panel bilateral. Diagnostic data was also reviewed. Her healed toes on left foot noted The following recommendations were made. Change dressing daily with Michael to the right and mihcael (heel) applied left prior to cast application Wash with soap and water Advance wound healing product: I recommend application of epi fix to optimize healing. The benefits and indications were reviewed and also expected management use. Prior authorization will be initiated. This is medically necessary for limb salvage for the left heel ulcer. She is at risk for amputation and limb loss and further infections. offloading: To maintain strict nonweightbearing status with the knee roller, left and heel weightbear right in surgical shoe. Total contact cast was applied today according to standard protocol (left) after verbal consent was obtained. She tolerated this well and will keep this clean, dry, and intact. Infection: culture from wound with MRSA. Concern is deeper infection involvement due to bulbous toe appearance including potential osteomyelitis. She has been taking doxycycline with some mild improvement however this is in regards to reduced erythema. It is noted she has continued communication with deep structures including the bone and there was bone that was debrided today from the left second toe. Infectious disease specialist, Dr. Reyes also saw and evaluated her today and input is greatly appreciated. She was advised to continue doxycycline and Augmentin will also be added to her regimen. She understands amputation will be recommended if she fails oral antibiotic treatment course of at least 6 weeks. ID recs appreciated. Improvement noted. nutrition: She was advised to maintain a balanced whole food diet with adequate protein and nutrients to optimize healing. To resume Yosvany supplementation use. Host factors. Neuropathy complicates her case. To monitor close due to inability to sensate as normal. She was also advised to avoid prednisone use and will also hold the Plaquenil at this time unless she has an intense flareup. This was previously reviewed verbally with Dr. Pratt. She also has a calcaneus gait with prior surgical intervention including a tendon transfer which is compromised with a fall in the early postoperative setting. We previously discussed options to surgically alleviate her calcaneus gait including retightening the Achilles tendon or other posterior leg muscles. Updated vascular (arterial) and doppler with reflux (venous) was ordered to assess for any abnormalities. The arterial studies were reviewed and no arterial disease or occlusions were identified. Venous insufficiency work-up is still pending. Diagnostic data: Her bilateral foot xrays (three views) were reviewed from [facility] from 02/08/2022 without soft tissue emphysema, osseous destruction or foreign body. Chip fracture to first metatarsal phalangeal joint area of right foot noted. Labs reviewed from 02/15/22 with wbc 9.4, no renal dysfunction or other gross abnormalities. Note: [employer] speech recognition cold reduction roller software was used to create portions of this document. Sound-alike and misspelled words, as well as other cold reduction roller errors may be contained in the documentation.
[2022-04-06 08:14] VITALS: BP 148/90; PULSE 108; RESP 20; TEMP 35.9; BMI 37.2
--- NOTE | 2022-04-06 08:55 | RAD_ITS ---
EXAM: XR RIGHT FOOT COMPLETE, 3 OR MORE VIEWS CLINICAL INDICATION: ULCER TECHNIQUE: Frontal, lateral and oblique views of the right foot. This report was created using [employer] report generation technology. COMPARISON: None. FINDINGS: BONES/JOINTS: There is a hallux valgus deformity. There is a fracture at the base of the proximal first phalanx. Preservation of the joint space. No sclerotic or destructive changes observed. SOFT TISSUES: Unremarkable. No soft tissue swelling or gas. No radiopaque foreign body. RAD/Foot min 3 Views IMPRESSION: Fracture of the base of the proximal first phalanx. There is a hallux valgus deformity present. Electronically Signed: James Echols MD at 22:23 EDT ,
--- NOTE | 2022-04-06 09:00 | PCM.WC.PN ---
History of Present Illness Date of Service: 04/06/22 Chief Complaint: Left heel ulcer, second toe right foot ulcer History of Wound: This pleasant 56-year-old female with significant past medical history of lupus, history of panic attack, depression, history of delayed healing, hyperlipidemia, irritable bowel syndrome, memory loss, restless leg syndrome, and obstructive sleep apnea is here for follow-up of left heel ulcer. She denies fever, chill, nausea, vomiting. She takes antibiotics as advised by Dr. Reyes; 6 week duration is planned. She tolerated the left extremity cast well last week; it is extra moist this week. She wears a surgical shoe on the right foot. Progress of Wound: Stable right foot and left heel Objective Data Objective Data Vital Signs: Vital Signs Temp Pulse Resp BP 96.7 F L 108 H 20 H 148/90 H 04/06/22 08:14 04/06/22 08:14 04/06/22 08:14 04/06/22 08:14 Oxygen Delivery Method Room Air Weight: 111.13 kg Body Mass Index (BMI) 37.2 Physical Exam Const alert and oriented x3 General Appearance: cooperative HEENT normocephalic Extremity Extremity Narrative: No calf tenderness Diminished pulses Muscle wasting noted General Extremity: edema and no tenderness to palpation of joints or extremities; Negative for cyanosis Skin Skin Narrative: no purulence, no streaking, no odor, no infection granular base ulcer with peripheral maceration, necrosis or deep tissue exposure to left heel (resolved erythema and no bone exposure today) healed left second toe; full epithelialization no bogginess or fluctuance on palpation bilateral. General Skin Exam: Negative for erythema Neuro Neuro Narrative: lack of normal epicritic sensation via light touch is consistent with neuropathy status Psych cooperative and affect normal Debridement Note Debridement Note Wound debrided: left heel, right plantar medial forefoot Wound Grade/Stage: Type of Debridement: Excisional debridement Anesthesia Used: 4% Lidocaine Solution Depth: in the subcutaneous layer Percentage of wound debrided: 100 Instrument Used: #15 blade Tissue Removed: fibrous, devitalized subcutaneous, biofilm, slough Severity: Fat Layer Exposed Amount of bleeding with debridement: Mild Bleeding Controlled with: Pressure Patient tolerated procedure: Patient tolerated procedure well Post-Debridement Measurements and Additional Note: Post-Debridement Measurements/Treatment WC - Nurse 1 - General Ulcer Assessment Start: 03/09/22 13:55 Freq: Status: Active Protocol: ARACELI.LOWEXT Activity Type Activity Date Activity User E-sign Co-sign Detail Recorded Client Recorded Date Recorded By Document 03/09/22 13:55 DL [id number] 03/09/22 14:05 DL Document 03/16/22 11:26 DL [id number] 03/16/22 11:38 DL Document 03/23/22 08:23 BMF [id number] 03/23/22 08:38 BMF Document 03/30/22 08:08 RB [id number] 03/30/22 08:16 RB Document 04/06/22 08:14 DL [id number] 04/06/22 08:23 DL 03/09/22 03/16/22 03/23/22 13:55 11:26 08:23 WC - Today's Visit Information Type of service Follow-up Visit Follow-up Visit Follow-up Visit (Physician/TEACHER OF THE HANDICAPPED (Physician/TEACHER OF THE HANDICAPPED (Physician/TEACHER OF THE HANDICAPPED ) ) ) Arrival Mode Ambulatory Ambulatory Ambulatory Transfer Assistance None None None Patient Identification Verified (Name & Yes Yes Yes ) Patient Requires Transmission-Based No No Precautions Height and Weight Body Mass Index (BMI) 37.2 37.2 37.2 BMI Classification Obese Obese Obese Vital Signs Temperature (97.8 F-99.1 F) 97.3 F L 97.5 F L 96.5 F L Temperature Source Temporal Temporal Temporal Pulse Rate (60-100) 110 H 101 H Pulse Location Monitor Monitor Monitor Respiratory Rate (12-18) 20 H 18 16 Respiratory rate source Observation Observation Oxygen Delivery Method Room Air Blood Pressure (90/60-120/80) 139/83 H 136/77 H Blood Pressure Mean (mm Hg) 101 96 Source Monitor Monitor Monitor Position Sitting Blood Pressure Location Left Arm History Since Last Visit- (Skip if this is Patient's initial visit) Have you changed medications since your No No No last visit? Any new allergies or adverse reactions No No No Had a fall/change in ADL's that may No No No increase risk of falls Signs or symptoms of abuse and/or No No No neglect since last visit Have you been in the hospital since your No No No last visit? Has dressing in place as prescribed Yes Yes Yes Has compression in place as prescribed N/A N/A N/A Has offloadiing in place as prescribed Yes Yes Yes Experienced any changes in pain level or No No No management Left Footwear Surgical Shoe Total Contact with pressure Cast relief insole Right Footwear Surgical Shoe Surgical Shoe Surgical Shoe with pressure with pressure with pressure relief insole relief insole relief insole Pain Scale: 0-10 Numeric Is Patient Pain Free? Yes Yes Yes 03/30/22 04/06/22 08:08 08:14 WC - Today's Visit Information Type of service Follow-up Visit Follow-up Visit (Physician/TEACHER OF THE HANDICAPPED (Physician/TEACHER OF THE HANDICAPPED ) ) Arrival Mode Ambulatory Ambulatory Transfer Assistance None None Patient Identification Verified (Name & Yes Yes ) Patient Requires Transmission-Based No Precautions Height and Weight Body Mass Index (BMI) 37.2 37.2 BMI Classification Obese Obese Vital Signs Temperature (97.8 F-99.1 F) 97 F L 96.7 F L Temperature Source Temporal Temporal Pulse Rate (60-100) 111 H 108 H Pulse Location Monitor Monitor Respiratory Rate (12-18) 18 20 H Respiratory rate source Observation Observation Oxygen Delivery Method Blood Pressure (90/60-120/80) 120/75 148/90 H Blood Pressure Mean (mm Hg) 90 109 Source Monitor Monitor Position Semi-Fowlers Blood Pressure Location Right Arm History Since Last Visit- (Skip if this is Patient's initial visit) Have you changed medications since your No No last visit? Any new allergies or adverse reactions No No Had a fall/change in ADL's that may No No increase risk of falls Signs or symptoms of abuse and/or No No neglect since last visit Have you been in the hospital since your No No last visit? Has dressing in place as prescribed Yes Yes Has compression in place as prescribed No N/A Has offloadiing in place as prescribed Yes Yes Experienced any changes in pain level or No No management Left Footwear Regular Shoe Right Footwear Total Contact Total Contact Cast Cast Pain Scale: 0-10 Numeric Is Patient Pain Free? Yes Yes - Nurse 1 - General Ulcer Measurement Start: 03/09/22 13:55 Freq: Status: Active Protocol: Activity Type Activity Date Activity User E-sign Co-sign Detail Recorded Client Recorded Date Recorded By Document 03/09/22 13:55 DL [id number] 03/09/22 14:05 DL Document 03/16/22 11:26 DL [id number] 03/16/22 11:38 DL Document 03/23/22 08:23 [facility] [id number] 03/23/22 08:38 BM Document 03/30/22 08:08 RB [id number] 03/30/22 08:16 RB Document 04/06/22 08:14 DL [id number] 04/06/22 08:23 DL 03/09/22 03/16/22 03/23/22 13:55 11:26 08:23 Wound Center Nurse 1 #10 L 3rd toe -Combined with other wound No -Current Size (cm) - Length 0.9 0.3 0.1 -Current Size (cm) - Width 0.8 0.4 0.1 -Current Size (cm) - Depth 0.2 0.1 0.1 -Total Square Cm 0.72 0.12 0.01 -Photo Taken No No No -Epithelialization Large 67-100% -Exudate Amt Medium None Present -Exudate Type Serosanguineous -Wound Margin Thickened Thickened -Granulation Amt Small (1-33%) Small (1-33%) -Granulation Quality [place] -Necrosis Amt Small (1-33%) Small (1-33%) -Necrotic Tissue Type Adherent Slough Adherent Slough -Structure Exposed N/A -Texture (Cecelia-wound Skin Appearance) Callus,Scarring Assessed,Callus -Moisture (Cecelia-wound Skin Appearance) No Abnormality, Assessed,Dry/ Dry/Scaly Scaly -Color (Cecelia-wound Skin Appearance) No Abnormality Assessed -Temperature (Cecelia-wound Skin No Abnormality Appearance) (Pt Warm) -Tenderness on Palpation (Cecelia-wound No Skin Appearance) -Ulcer Cleansing Soap and Water -Foul Odor after Cleansing No -Anesthetic Used 5% Lidocaine Gel 7. L 2nd toe -Combined with other wound No -Current Size (cm) - Length 0.5 0.3 0.2 -Current Size (cm) - Width 0.9 0.5 0.3 -Current Size (cm) - Depth 0.3 0.4 0.1 -Total Square Cm 0.45 0.15 0.06 -Photo Taken No No No -Epithelialization Small 1-33% -Tunneling No -Undermining/Tunneling No -Maximum Distance #2 (cm) 0.2 -Circular Undermining Yes No -Exudate Amt Small Small Small -Exudate Type Serosanguineous Serosanguineous Serosanguineous -Wound Margin Thickened Thickened Distinct, Outline Attached -Granulation Amt Large (67-100%) None Present (0 Large (67-100%) %) -Granulation Quality [place] -Slough/Fibrin Yes -Necrosis Amt Small (1-33%) Large (67-100%) Small (1-33%) -Necrotic Tissue Type Adherent Slough Adherent Slough Adherent Slough -Structure Exposed Bone,N/A N/A -Texture (Cecelia-wound Skin Appearance) Callus,Scarring Callus, Assessed,Callus Localized Edema ,Scarring ,Scarring -Moisture (Cecelia-wound Skin Appearance) Dry/Scaly Dry/Scaly Assessed,Dry/ Scaly -Color (Cecelia-wound Skin Appearance) No Abnormality Erythema Assessed -Temperature (Cecelia-wound Skin No Abnormality No Abnormality No Abnormality Appearance) (Pt Warm) (Pt Warm) (Pt Warm) -Tenderness on Palpation (Cecelia-wound No No No Skin Appearance) -Ulcer Cleansing Soap and Water Soap and Water Soap and Water -Foul Odor after Cleansing No No No -Anesthetic Used 5% Lidocaine 5% Lidocaine 4% Lidocaine Gel Gel Solution 9. R plantar -Combined with other wound No -Current Size (cm) - Length 0.8 0.6 0.8 -Current Size (cm) - Width 0.4 0.5 0.6 -Current Size (cm) - Depth 0.3 0.4 0.4 -Total Square Cm 0.32 0.30 0.48 -Photo Taken No No No -Epithelialization Small 1-33% -Tunneling No -Undermining/Tunneling Yes -Undermining/Tunneling Starts (O'clock 8 12 ) -Undermining/Tunneling Ends (O'clock) 12 12 -Maximum Distance (cm) 0.3 0.4 -Maximum Distance #2 (cm) 0.3 -Circular Undermining Yes Yes -Exudate Amt Small Small Small -Exudate Type Serosanguineous Serosanguineous -Wound Margin Thickened Distinct, Outline Attached -Granulation Amt Small (1-33%) Small (1-33%) Large (67-100%) -Granulation Quality [place] -Slough/Fibrin -Necrosis Amt Small (1-33%) Small (1-33%) -Necrotic Tissue Type Adherent Slough Adherent Slough -Structure Exposed N/A N/A -Texture (Cecelia-wound Skin Appearance) Callus,Scarring Callus Assessed, Scarring -Moisture (Cecelia-wound Skin Appearance) No Abnormality No Abnormality Assessed -Color (Cecelia-wound Skin Appearance) No Abnormality No Abnormality Assessed, Erythema -Temperature (Cecelia-wound Skin No Abnormality No Abnormality No Abnormality Appearance) (Pt Warm) (Pt Warm) (Pt Warm) -Tenderness on Palpation (Cecelia-wound No No No Skin Appearance) -Ulcer Cleansing Soap and Water Soap and Water Soap and Water -Foul Odor after Cleansing No No No -Anesthetic Used 5% Lidocaine 5% Lidocaine 4% Lidocaine Gel Gel Solution 8. L heel -Combined with other wound No -Current Size (cm) - Length 3.4 2.7 2.8 -Current Size (cm) - Width 2.8 3.3 3.3 -Current Size (cm) - Depth 0.4 0.5 0.4 -Total Square Cm 9.52 8.91 9.24 -Photo Taken No No No -Epithelialization Small 1-33% -Tunneling No -Undermining/Tunneling No -Undermining/Tunneling Starts (O'clock 8 ) -Undermining/Tunneling Ends (O'clock) 1 -Maximum Distance (cm) 0.3 -Circular Undermining No -Exudate Amt Small Medium Large -Exudate Type Serosanguineous Serosanguineous Serosanguineous -Wound Margin Thickened Thickened Distinct, Outline Attached -Granulation Amt Large (67-100%) Large (67-100%) Large (67-100%) -Granulation Quality [place] -Slough/Fibrin Yes -Necrosis Amt Small (1-33%) Small (1-33%) Small (1-33%) -Necrotic Tissue Type Adherent Slough Adherent Slough Adherent Slough -Structure Exposed N/A -Texture (Cecelia-wound Skin Appearance) Callus Scarring Assessed, Scarring -Moisture (Cecelia-wound Skin Appearance) No Abnormality Dry/Scaly Assessed, Maceration -Color (Cecelia-wound Skin Appearance) No Abnormality No Abnormality Assessed -Temperature (Cecelia-wound Skin No Abnormality No Abnormality No Abnormality Appearance) (Pt Warm) (Pt Warm) (Pt Warm) -Tenderness on Palpation (Cecelia-wound No No No Skin Appearance) -Ulcer Cleansing Soap and Water Soap and Water Soap and Water -Foul Odor after Cleansing No No No -Anesthetic Used 5% Lidocaine 5% Lidocaine 4% Lidocaine Gel Gel Solution 03/30/22 04/06/22 08:08 08:14 Wound Center Nurse 1 #10 L 3rd toe -Combined with other wound -Current Size (cm) - Length -Current Size (cm) - Width -Current Size (cm) - Depth -Total Square Cm -Photo Taken -Epithelialization -Exudate Amt -Exudate Type -Wound Margin -Granulation Amt -Granulation Quality -Necrosis Amt -Necrotic Tissue Type -Structure Exposed -Texture (Cecelia-wound Skin Appearance) -Moisture (Cecelia-wound Skin Appearance) -Color (Cecelia-wound Skin Appearance) -Temperature (Cecelia-wound Skin Appearance) -Tenderness on Palpation (Cecelia-wound Skin Appearance) -Ulcer Cleansing -Foul Odor after Cleansing -Anesthetic Used 7. L 2nd toe -Combined with other wound No -Current Size (cm) - Length 0.1 -Current Size (cm) - Width 0.1 -Current Size (cm) - Depth 0.1 -Total Square Cm 0.01 -Photo Taken -Epithelialization -Tunneling No -Undermining/Tunneling No -Maximum Distance #2 (cm) -Circular Undermining No -Exudate Amt Medium -Exudate Type Serosanguineous -Wound Margin Distinct, Outline Attached -Granulation Amt Medium (34-66%) -Granulation Quality [place] -Slough/Fibrin Yes -Necrosis Amt Small (1-33%) -Necrotic Tissue Type Adherent Slough -Structure Exposed N/A -Texture (Cecelia-wound Skin Appearance) Callus -Moisture (Cecelia-wound Skin Appearance) Assessed -Color (Cecelia-wound Skin Appearance) Assessed -Temperature (Cecelia-wound Skin No Abnormality Appearance) (Pt Warm) -Tenderness on Palpation (Cecelia-wound No Skin Appearance) -Ulcer Cleansing Wound Cleanser -Foul Odor after Cleansing No -Anesthetic Used 5% Lidocaine Gel 9. R plantar -Combined with other wound No No -Current Size (cm) - Length 1.1 1.1 -Current Size (cm) - Width 1 0.9 -Current Size (cm) - Depth 0.3 0.3 -Total Square Cm 1.1 0.99 -Photo Taken No -Epithelialization -Tunneling No -Undermining/Tunneling No Yes -Undermining/Tunneling Starts (O'clock 10 ) -Undermining/Tunneling Ends (O'clock) 2 -Maximum Distance (cm) 0.2 -Maximum Distance #2 (cm) -Circular Undermining No -Exudate Amt Medium Medium -Exudate Type Serosanguineous Serosanguineous -Wound Margin Distinct, Distinct, Outline Outline Attached Attached -Granulation Amt Large (67-100%) Medium (34-66%) -Granulation Quality [place] -Slough/Fibrin Yes Yes -Necrosis Amt Medium (34-66%) Medium (34-66%) -Necrotic Tissue Type Adherent Slough Adherent Slough -Structure Exposed Fat Layer N/A Exposed -Texture (Cecelia-wound Skin Appearance) Assessed,Callus Assessed -Moisture (Cecelia-wound Skin Appearance) Assessed Assessed -Color (Cecelia-wound Skin Appearance) Assessed Assessed -Temperature (Cecelia-wound Skin No Abnormality No Abnormality Appearance) (Pt Warm) (Pt Warm) -Tenderness on Palpation (Cecelia-wound No No Skin Appearance) -Ulcer Cleansing Wound Cleanser Soap and Water -Foul Odor after Cleansing No No -Anesthetic Used 5% Lidocaine 5% Lidocaine Gel Gel 8. L heel -Combined with other wound No No -Current Size (cm) - Length 2.4 2.5 -Current Size (cm) - Width 2.8 3 -Current Size (cm) - Depth 0.4 0.2 -Total Square Cm 6.72 7.5 -Photo Taken -Epithelialization -Tunneling No No -Undermining/Tunneling No No -Undermining/Tunneling Starts (O'clock ) -Undermining/Tunneling Ends (O'clock) -Maximum Distance (cm) -Circular Undermining No No -Exudate Amt Large -Exudate Type Serosanguineous -Wound Margin Distinct, Outline Attached -Granulation Amt Medium (34-66%) Medium (34-66%) -Granulation Quality [place] -Slough/Fibrin Yes Yes -Necrosis Amt Medium (34-66%) Medium (34-66%) -Necrotic Tissue Type Adherent Slough -Structure Exposed N/A N/A -Texture (Cecelia-wound Skin Appearance) Assessed,Callus Assessed,Callus -Moisture (Cecelia-wound Skin Appearance) Maceration Assessed, Maceration -Color (Cecelia-wound Skin Appearance) Assessed Assessed -Temperature (Cecelia-wound Skin No Abnormality No Abnormality Appearance) (Pt Warm) (Pt Warm) -Tenderness on Palpation (Cecelia-wound No No Skin Appearance) -Ulcer Cleansing Wound Cleanser Wound Cleanser -Foul Odor after Cleansing No No -Anesthetic Used 5% Lidocaine 5% Lidocaine Gel Gel WC - Nurse 2 - General Ulcer CM Notes Start: 03/09/22 13:55 Freq: Status: Active Protocol: Activity Type Activity Date Activity User E-sign Co-sign Detail Recorded Client Recorded Date Recorded By Document 03/09/22 14:16 [id number] 03/09/22 14:21 JF Edit Result 03/09/22 14:16 JF (1) [id number] 03/09/22 14:22 JF Document 03/16/22 11:42 JF [id number] 03/16/22 11:46 JF Edit Result 03/16/22 11:42 JF (2) [id number] 03/16/22 16:27 JF Edit Result 03/16/22 11:42 JF (3) [id number] 03/16/22 16:28 JF Document 03/23/22 09:27 JF [id number] 03/23/22 09:30 JF Document 03/30/22 08:27 JF [id number] 03/30/22 08:33 JF Document 04/06/22 08:50 PL [id number] 04/06/22 08:51 PL (1) #10 L 3rd toe - Clinical Debridement Subcutaneous => Bone - Tissue Removed Subcutaneous => Biofilm - Debridement - Bone, 1st 20sq cm => Yes (2) 7. L 2nd toe - Clinical Debridement Subcutaneous => Bone - Tissue Removed Subcutaneous => Subcutaneous, => Slough - Debridement - Subq, 1st 20sq cm Yes => No - Debridement - Bone, 1st 20sq cm => Yes (3) 9. R plantar - Debridement - Subq, 1st 20sq cm No => Yes 03/09/22 03/16/22 03/23/22 14:16 11:42 09:27 Wound Center Nurse 2 #10 L 3rd toe -Time 14:17 11:43 -Correct Patient Yes Yes -Correct Side, Site, Position Yes Yes -Correct Procedure Yes Yes -Procedure Performed Yes Yes -Type of Procedure Debridement Debridement -Clinical Debridement Bone Subcutaneous -Tissue Removed Biofilm Subcutaneous -Post Debridement (cm) - Length 1.0 0.4 -Post Debridement (cm) - Width 0.8 0.4 -Post Debridement (cm) - Depth 0.2 0.1 -Total Square (Post) (cm) 0.80 0.16 -Area of Debridement (cm) - Length 1.0 0.4 -Area of Debridement (cm) - Width 0.8 0.4 -Total Square (Area) (cm) 0.80 0.16 -Tunneling No No -Undermining/Tunneling No No -Circular Undermining No No -Wound/Ulcer Outcome Not Healed Not Healed -Ulcer Cleansing Rinsed/ Rinsed/ Irrigated with Irrigated with Saline Saline -Foul Odor after Cleansing No No -Bioengineered Tissue No No -Bleeding Controlled with Pressure Pressure -Treatment Response Procedure Procedure Tolerated Well Tolerated Well -Offloading Yes Yes -Type of Offloading Surgical Shoe Total Contact Cast (TCC) - Left ($) -Assistive Device(s) Walker -Debridement - Subq, 1st 20sq cm No No -Debridement - Bone, 1st 20sq cm Yes 7. L 2nd toe -Time 14:19 11:45 09:29 -Correct Patient Yes Yes Yes -Correct Side, Site, Position Yes Yes Yes -Correct Procedure Yes Yes Yes -Procedure Performed Yes Yes Yes -Type of Procedure Debridement Debridement Debridement -Clinical Debridement Subcutaneous Bone Subcutaneous -Tissue Removed Subcutaneous Subcutaneous, Subcutaneous Slough -Post Debridement (cm) - Length 0.5 0.4 0.3 -Post Debridement (cm) - Width 1.0 0.5 0.3 -Post Debridement (cm) - Depth 0.3 0.3 0.1 -Total Square (Post) (cm) 0.50 0.20 0.09 -Area of Debridement (cm) - Length 0.5 0.4 0.3 -Area of Debridement (cm) - Width 1.0 0.5 0.3 -Total Square (Area) (cm) 0.50 0.20 0.09 -Tunneling No No No -Undermining/Tunneling No No No -Circular Undermining No No No -Wound/Ulcer Outcome Not Healed Not Healed Not Healed -Ulcer Cleansing Rinsed/ Rinsed/ Rinsed/ Irrigated with Irrigated with Irrigated with Saline Saline Saline -Foul Odor after Cleansing No No No -Bioengineered Tissue No No No -Bleeding Controlled with Pressure Pressure Pressure -Treatment Response Procedure Procedure Procedure Tolerated Well Tolerated Well Tolerated Well -Offloading Yes No No -Type of Offloading Surgical Shoe -Debridement - Subq, 1st 20sq cm Yes No No -Debridement - Bone, 1st 20sq cm Yes 9. R plantar -Time 14:18 11:43 09:27 -Correct Patient Yes Yes Yes -Correct Side, Site, Position Yes Yes Yes -Correct Procedure Yes Yes Yes -Procedure Performed Yes Yes Yes -Type of Procedure Debridement Debridement Debridement -Clinical Debridement Subcutaneous Subcutaneous Subcutaneous -Tissue Removed Subcutaneous Subcutaneous Subcutaneous -Post Debridement (cm) - Length 0.9 0.6 0.8 -Post Debridement (cm) - Width 0.5 0.6 0.7 -Post Debridement (cm) - Depth 0.3 0.4 0.3 -Total Square (Post) (cm) 0.45 0.36 0.56 -Area of Debridement (cm) - Length 0.9 0.6 0.8 -Area of Debridement (cm) - Width 0.5 0.6 0.7 -Total Square (Area) (cm) 0.45 0.36 0.56 -Tunneling No No No -Undermining/Tunneling No No No -Circular Undermining No No No -Wound/Ulcer Outcome Not Healed Not Healed Not Healed -Ulcer Cleansing Rinsed/ Rinsed/ Rinsed/ Irrigated with Irrigated with Irrigated with Saline Saline Saline -Foul Odor after Cleansing No No No -Bioengineered Tissue No No No -Bleeding Controlled with Pressure Pressure Pressure -Treatment Response Procedure Procedure Procedure Tolerated Well Tolerated Well Tolerated Well -Offloading Yes Yes Yes -Type of Offloading Surgical Shoe Surgical Shoe Surgical Shoe -Debridement - Subq, 1st 20sq cm No Yes No 8. L heel -Time 14:18 11:44 09:28 -Correct Patient Yes Yes Yes -Correct Side, Site, Position Yes Yes Yes -Correct Procedure Yes Yes Yes -Procedure Performed Yes Yes Yes -Type of Procedure Debridement Debridement Debridement -Clinical Debridement Subcutaneous Subcutaneous Subcutaneous -Tissue Removed Subcutaneous Subcutaneous Subcutaneous -Post Debridement (cm) - Length 3.5 2.8 2.8 -Post Debridement (cm) - Width 2.8 3.3 3.4 -Post Debridement (cm) - Depth 0.4 0.5 0.4 -Total Square (Post) (cm) 9.80 9.24 9.52 -Area of Debridement (cm) - Length 3.5 2.8 2.8 -Area of Debridement (cm) - Width 2.8 3.3 3.4 -Total Square (Area) (cm) 9.80 9.24 9.52 -Tunneling No No No -Undermining/Tunneling No No No -Circular Undermining No No No -Wound/Ulcer Outcome Not Healed Not Healed Not Healed -Ulcer Cleansing Rinsed/ Rinsed/ Rinsed/ Irrigated with Irrigated with Irrigated with Saline Saline Saline -Foul Odor after Cleansing No No No -Bioengineered Tissue No No No -Bleeding Controlled with Pressure Pressure -Treatment Response Procedure Procedure Procedure Tolerated Well Tolerated Well Tolerated Well -Offloading Yes No Yes -Type of Offloading Surgical Shoe Total Contact Cast (TCC) - Left ($) -Debridement - Subq, 1st 20sq cm No No Yes Pain Scale: 0-10 Numeric Is Patient Pain Free? Yes Yes Yes 03/30/22 04/06/22 08:27 08:50 Wound Center Nurse 2 #10 L 3rd toe -Time -Correct Patient -Correct Side, Site, Position -Correct Procedure -Procedure Performed -Type of Procedure -Clinical Debridement -Tissue Removed -Post Debridement (cm) - Length -Post Debridement (cm) - Width -Post Debridement (cm) - Depth -Total Square (Post) (cm) -Area of Debridement (cm) - Length -Area of Debridement (cm) - Width -Total Square (Area) (cm) -Tunneling -Undermining/Tunneling -Circular Undermining -Wound/Ulcer Outcome -Ulcer Cleansing -Foul Odor after Cleansing -Bioengineered Tissue -Bleeding Controlled with -Treatment Response -Offloading -Type of Offloading -Assistive Device(s) -Debridement - Subq, 1st 20sq cm -Debridement - Bone, 1st 20sq cm 7. L 2nd toe -Time -Correct Patient No -Correct Side, Site, Position No -Correct Procedure No -Procedure Performed No -Type of Procedure -Clinical Debridement -Tissue Removed -Post Debridement (cm) - Length 0 -Post Debridement (cm) - Width 0 -Post Debridement (cm) - Depth 0 -Total Square (Post) (cm) 0 -Area of Debridement (cm) - Length 0 -Area of Debridement (cm) - Width 0 -Total Square (Area) (cm) 0 -Tunneling -Undermining/Tunneling -Circular Undermining -Wound/Ulcer Outcome Healed- Epithelialized -Ulcer Cleansing -Foul Odor after Cleansing -Bioengineered Tissue -Bleeding Controlled with -Treatment Response -Offloading -Type of Offloading -Debridement - Subq, 1st 20sq cm -Debridement - Bone, 1st 20sq cm 9. R plantar -Time 08:27 08:25 -Correct Patient Yes Yes -Correct Side, Site, Position Yes Yes -Correct Procedure Yes Yes -Procedure Performed Yes Yes -Type of Procedure Debridement Debridement -Clinical Debridement Subcutaneous Subcutaneous -Tissue Removed Subcutaneous Subcutaneous -Post Debridement (cm) - Length 1.1 1.1 -Post Debridement (cm) - Width 1.1 0.9 -Post Debridement (cm) - Depth 0.3 0.3 -Total Square (Post) (cm) 1.21 0.99 -Area of Debridement (cm) - Length 1.1 1.1 -Area of Debridement (cm) - Width 1.1 0.9 -Total Square (Area) (cm) 1.21 0.99 -Tunneling No No -Undermining/Tunneling No No -Circular Undermining No No -Wound/Ulcer Outcome Not Healed Not Healed -Ulcer Cleansing Rinsed/ Rinsed/ Irrigated with Irrigated with Saline Saline -Foul Odor after Cleansing No No -Bioengineered Tissue No No -Bleeding Controlled with Pressure Pressure -Treatment Response Procedure Procedure Tolerated Well Tolerated Well -Offloading Yes -Type of Offloading Surgical Shoe -Debridement - Subq, 1st 20sq cm Yes No 8. L heel -Time 08:28 08:25 -Correct Patient Yes Yes -Correct Side, Site, Position Yes Yes -Correct Procedure Yes Yes -Procedure Performed Yes Yes -Type of Procedure Debridement Debridement -Clinical Debridement Subcutaneous Subcutaneous -Tissue Removed Subcutaneous Subcutaneous -Post Debridement (cm) - Length 2.5 2.5 -Post Debridement (cm) - Width 2.8 3.0 -Post Debridement (cm) - Depth 0.4 0.2 -Total Square (Post) (cm) 7.00 7.50 -Area of Debridement (cm) - Length 2.5 2.5 -Area of Debridement (cm) - Width 2.8 3.0 -Total Square (Area) (cm) 7.00 7.50 -Tunneling No No -Undermining/Tunneling No No -Circular Undermining No No -Wound/Ulcer Outcome Not Healed Healed- Surgical Closure -Ulcer Cleansing Rinsed/ Irrigated with Saline -Foul Odor after Cleansing No No -Bioengineered Tissue No No -Bleeding Controlled with Pressure Pressure -Treatment Response Procedure Procedure Tolerated Well Tolerated Well -Offloading Yes -Type of Offloading Total Contact Cast (TCC) - Left ($) -Debridement - Subq, 1st 20sq cm No Yes Pain Scale: 0-10 Numeric Is Patient Pain Free? Yes Yes WC - Nurse 3 - General Ulcer D/C NN Start: 03/09/22 13:55 Freq: Status: Active Protocol: Activity Type Activity Date Activity User E-sign Co-sign Detail Recorded Client Recorded Date Recorded By Document 03/09/22 14:38 [facility] [id number] 03/09/22 14:40 [facility] Document 03/23/22 08:58 [facility] [id number] 03/23/22 09:02 [facility] Document 03/30/22 08:34 [facility] [id number] 03/30/22 08:35 [facility] Document 04/06/22 08:44 DL [id number] 04/06/22 08:46 DL 03/09/22 03/23/22 03/30/22 14:38 08:58 08:34 Wound Care Nurse 3 #10 L 3rd toe -Ulcer Cleansing Rinsed/ Irrigated with Saline -Foul Odor after Cleansing No -Primary Dressing Applied Other -Other Dressing MOIST TO DRY PER [place] CHIEF TELEPHONE OPERATOR -Primary Dressing Covered/Secured with Dry Gauze & Roll Gauze, Secured with Tape 7. L 2nd toe -Ulcer Cleansing Rinsed/ Rinsed/ Irrigated with Irrigated with Saline Saline -Foul Odor after Cleansing No No -Primary Dressing Applied Other Other -Other Dressing MOIST TO DRY betadine, sample optilock , tcc undercast per dl road supervisor of engines -Primary Dressing Covered/Secured with Dry Gauze & Roll Gauze, Secured with Tape -Other Covering DRSG PER [place] CHIEF TELEPHONE OPERATOR 9. R plantar -Ulcer Cleansing Rinsed/ Rinsed/ Rinsed/ Irrigated with Irrigated with Irrigated with Saline Saline Saline -Foul Odor after Cleansing No No No -Primary Dressing Applied Promogran Other Promogran Michael Matter Michael Matter -Other Dressing PER [place] CHIEF TELEPHONE OPERATOR michael drsg per rb rn -Primary Dressing Covered/Secured with Dry Gauze & Dry Gauze, Dry Gauze, Roll Gauze, Secured with Secured with Secured with Tape Tape Tape -Other Covering drsg per dl road supervisor of engines -Promogran Michael Matter 1 1 8. L heel -Ulcer Cleansing Rinsed/ Rinsed/ Rinsed/ Irrigated with Irrigated with Irrigated with Saline Saline Saline -Foul Odor after Cleansing No No No -Primary Dressing Applied Other Promogran Michael Matter -Other Dressing MOIST TO DRY michael; sample super absorbe w optilock; tcc / tcc undercast undercast per , drsg per rb dl maternity floor supervisor -Primary Dressing Covered/Secured with Dry Gauze & Roll Gauze, Secured with Tape -Other Covering PER [place] CHIEF TELEPHONE OPERATOR -Promogran Michael Matter 0 BLE -Other PT REFUSED APPLICATION; STATES THEY ITCH Treatment Response Procedure Procedure Procedure Tolerated Well Tolerated Well Tolerated Well Pain Scale: 0-10 Numeric Is Patient Pain Free? Yes Yes Yes WC - Visit Discharge Discharge Condition Stable Stable Stable Ambulatory Status Ambulatory Ambulatory Ambulatory Transportation Private [facility] Notes: 04/06/22 08:44 Wound Care Nurse 3 #10 L 3rd toe -Ulcer Cleansing -Foul Odor after Cleansing -Primary Dressing Applied -Other Dressing -Primary Dressing Covered/Secured with 7. L 2nd toe -Ulcer Cleansing -Foul Odor after Cleansing -Primary Dressing Applied -Other Dressing -Primary Dressing Covered/Secured with -Other Covering 9. R plantar -Ulcer Cleansing Rinsed/ Irrigated with Saline -Foul Odor after Cleansing No -Primary Dressing Applied Promogran Michael Matter -Other Dressing -Primary Dressing Covered/Secured with Dry Gauze, Secured with Tape -Other Covering -Promogran Michael Matter 1 8. L heel -Ulcer Cleansing Rinsed/ Irrigated with Saline -Foul Odor after Cleansing No -Primary Dressing Applied -Other Dressing moist guaze today -Primary Dressing Covered/Secured with Dry Gauze & Roll Gauze, Secured with Tape -Other Covering -Promogran Michael Matter BLE -Other Treatment Response Procedure Tolerated Well Pain Scale: 0-10 Numeric Is Patient Pain Free? Yes WC - Visit Discharge Discharge Condition Stable Ambulatory Status Ambulatory Transportation Private Auto Notes: Start dakins to L Heel at home Assessment/Plan Assessment/Plan (1) Ulcer of right foot with fat layer exposed: CODE(S): L97.512 - Non-pressure chronic ulcer of other part of right foot with fat layer exposed (2) Lupus (systemic lupus erythematosus): CODE(S): M32.9 - Systemic lupus erythematosus, unspecified (3) Ulcer of left foot with fat layer exposed: CODE(S): L97.522 - Non-pressure chronic ulcer of other part of left foot with fat layer exposed (4) MRSA (methicillin resistant staph aureus) culture positive: CODE(S): Z22.322 - Carrier or suspected carrier of Methicillin resistant Staphylococcus aureus (5) Cellulitis of left lower limb: CODE(S): L03.116 - Cellulitis of left lower limb (6) Delayed wound healing: CODE(S): T14.8XXD - Other injury of unspecified body region, subsequent encounter (7) Non-pressure chronic ulcer of other part of left foot with necrosis of bone: CODE(S): L97.524 - Non-pressure chronic ulcer of other part of left foot with necrosis of bone (8) Fracture of great toe, right, closed: CODE(S): S92.401A - Displaced unspecified fracture of right great toe, initial encounter for closed fracture PLAN: Plan I reviewed and discussed her case. Subcutaneous excisional debridement was performed as noted in the clinical panel bilateral. Diagnostic data was also reviewed. Her healed toes on left foot noted The following recommendations were made. Change dressing daily with Michael to the right and michael (heel) applied. she will do dakin wet to dry to left heel for a couple days prior to transitioning to the michael. Cast will be reapplied next week. Advance wound healing product: I recommend application of epi fix to optimize healing. The benefits and indications were reviewed and also expected management use. Prior authorization will be initiated. This is medically necessary for limb salvage for the left heel ulcer. She is at risk for amputation and limb loss and further infections. offloading: To maintain strict nonweightbearing status with the knee roller, left with surgical shoe and heel weightbear right in surgical shoe. Total contact cast was applied today according to standard protocol (left) after verbal consent was obtained. She tolerated this well and will keep this clean, dry, and intact. Infection: culture from wound with MRSA. Concern is deeper infection involvement due to bulbous toe appearance including potential osteomyelitis. She has been taking doxycycline with some mild improvement however this is in regards to reduced erythema. It is noted she has continued communication with deep structures including the bone and there was bone that was debrided today from the left second toe. Infectious disease specialist, Dr. Reyes also saw and evaluated her today and input is greatly appreciated. She was advised to continue doxycycline and Augmentin will also be added to her regimen. She understands amputation will be recommended if she fails oral antibiotic treatment course of at least 6 weeks. ID recs appreciated. Improvement noted. nutrition: She was advised to maintain a balanced whole food diet with adequate protein and nutrients to optimize healing. To resume Yosvany supplementation use. Host factors. Neuropathy complicates her case. To monitor close due to inability to sensate as normal. She was also advised to avoid prednisone use and will also hold the Plaquenil at this time unless she has an intense flareup. This was previously reviewed verbally with Dr. Pratt. She also has a calcaneus gait with prior surgical intervention including a tendon transfer which is compromised with a fall in the early postoperative setting. We previously discussed options to surgically alleviate her calcaneus gait including retightening the Achilles tendon or other posterior leg muscles. Updated vascular (arterial) and doppler with reflux (venous) was ordered to assess for any abnormalities. The arterial studies were reviewed and no arterial disease or occlusions were identified. Venous insufficiency work-up is still pending. Diagnostic data: Her bilateral foot xrays (three views) were [facility] from 02/08/2022 without soft tissue emphysema, osseous destruction or foreign body. Chip fracture to first metatarsal phalangeal joint area of right foot noted. Labs reviewed from 02/15/22 with wbc 9.4, no renal dysfunction or other gross abnormalities. Note: GIVTED speech recognition supervisor fish hatchery software was used to create portions of this document. Sound-alike and misspelled words, as well as other supervisor fish hatchery errors may be contained in the documentation. I discussed that she had a prior fracture identified to the right foot and I like to order serial x-ray. Order was provided today. This is to confirm that she has a simple chip fracture that does not have characteristics of a different diagnosis given her ongoing edema at this site. The medical decision making level is low. There is noted low risk of morbidity after considering this treatment plan and diagnostic data. The medical decision making level is limited based on data including the review of prior external notes, review of a prior test, or ordering a test.
== END 2022-04-07 23:59 | disposition home or self-care (01) ==
LOC: WC 08:00
PROVIDERS: PCP Family Medicine; Referring Provider Podiatrist; Visit Provider Podiatrist
DX: L97.524 Non-pressure chronic ulcer of other part of left foot with necrosis of bone (principal); L97.522 Non-pressure chronic ulcer of other part of left foot with fat layer exposed; L97.512 Non-pressure chronic ulcer of other part of right foot with fat layer exposed; M32.9 Systemic lupus erythematosus, unspecified; M86.9 Osteomyelitis, unspecified; S92.401G Displaced unspecified fracture of right great toe, subsequent encounter for fracture with delayed healing; L03.116 Cellulitis of left lower limb; M17.10 Unilateral primary osteoarthritis, unspecified knee; Z22.322 Carrier or suspected carrier of Methicillin resistant Staphylococcus aureus; E78.5 Hyperlipidemia, unspecified; M79.7 Fibromyalgia; K58.9 Irritable bowel syndrome, unspecified; F41.0 Panic disorder [episodic paroxysmal anxiety]; F32.A Depression, unspecified; G25.81 Restless legs syndrome; G47.33 Obstructive sleep apnea (adult) (pediatric)
CPT/HCPCS: 11042; 11044; 29445; 73630

== ENCOUNTER 2022-05-06 09:15 | Outpatient (RCR) | payer MEDICARE, BC, SELFPAY ==
[2022-04-08 00:41] VITALS: BP 148/90; PULSE 108; RESP 20; TEMP 35.9; BMI 37.2
[2022-04-13 08:15] VITALS: BP 151/93; PULSE 100; RESP 18; TEMP 36.2; BMI 37.2
--- NOTE | 2022-04-13 09:14 | PN.PCM_ITS ---
History of Present Illness Date of Service: 04/13/22 Chief Complaint: Left heel ulcer right foot ulcer History of Wound: This pleasant 56-year-old female with significant past medical history of lupus, history of panic attack, depression, history of delayed healing, hyperlipidemia, irritable bowel syndrome, memory loss, restless leg syndrome, and obstructive sleep apnea is here for follow-up of left heel ulcer. She denies fever, chill, nausea, vomiting. She takes antibiotics as advised by Dr. Reyes; 6 week duration is planned (doxycycline). She took a break from the total contact cast on the left side last week and is ready to proceed again this week. She also would like to review the results from her foot x-ray on the right foot. She has been offloading the right foot ulcer with a surgical shoe. Progress of Wound: Improving with resolved maceration left foot Right foot stable Objective Data Objective Data Vital Signs: Vital Signs Temp Pulse Resp BP 97.2 F L 100 18 151/93 H 04/13/22 08:15 04/13/22 08:15 04/13/22 08:15 04/13/22 08:15 Weight: 111.13 kg Body Mass Index (BMI) 37.2 Physical Exam Const alert and oriented x3 General Appearance: cooperative HEENT normocephalic Extremity Extremity Narrative: No calf tenderness Diminished pulses Muscle wasting noted General Extremity: edema and no tenderness to palpation of joints or extremities; Negative for cyanosis Skin Skin Narrative: no purulence, no streaking, no odor, no infection granular base ulcer with resolved peripheral maceration, necrosis or deep tissue exposure to left heel no bogginess or fluctuance on palpation bilateral. General Skin Exam: Negative for erythema Neuro Neuro Narrative: lack of normal epicritic sensation via light touch is consistent with neuropathy status Psych cooperative and affect normal Debridement Note Debridement Note Wound debrided: left heel, right plantar medial forefoot Wound Grade/Stage: Type of Debridement: Excisional debridement Anesthesia Used: 4% Lidocaine Solution Depth: in the subcutaneous layer Percentage of wound debrided: 100 Instrument Used: #15 blade Tissue Removed: fibrous, devitalized subcutaneous, biofilm, slough Severity: Fat Layer Exposed Amount of bleeding with debridement: Mild Bleeding Controlled with: Pressure Patient tolerated procedure: Patient tolerated procedure well Post-Debridement Measurements and Additional Note: Post-Debridement Measurements/Treatment WC - Nurse 1 - General Ulcer Assessment Start: 04/13/22 08:15 Freq: Status: Active Protocol: [email or web address] Activity Type Activity Date Activity User E-sign Co-sign Detail Recorded Client Recorded Date Recorded By Document 04/13/22 08:15 GABRIEL [id number] 04/13/22 08:22 RB 04/13/22 08:15 - Today's Visit Information Type of service Follow-up Visit (Physician/SUPERVISOR INSULATION ) Arrival Mode Ambulatory Transfer Assistance None Patient Identification Verified (Name & Yes ) Height and Weight Body Mass Index (BMI) 37.2 BMI Classification Obese Vital Signs Temperature (97.8 F-99.1 F) 97.2 F L Temperature Source Temporal Pulse Rate (60-100) 100 Pulse Location Monitor Respiratory Rate (12-18) 18 Respiratory rate source Observation Blood Pressure (90/60-120/80) 151/93 H Blood Pressure Mean (mm Hg) 112 Source Monitor Position Semi-Fowlers Blood Pressure Location Left Arm History Since Last Visit- (Skip if this is Patient's initial visit) Have you changed medications since your No last visit? Any new allergies or adverse reactions No Had a fall/change in ADL's that may No increase risk of falls Signs or symptoms of abuse and/or No neglect since last visit Have you been in the hospital since your No last visit? Has dressing in place as prescribed Yes Has compression in place as prescribed No Has offloadiing in place as prescribed Yes Experienced any changes in pain level or No management Left Footwear Surgical Shoe with pressure relief insole Right Footwear Surgical Shoe with pressure relief insole Pain Scale: 0-10 Numeric Is Patient Pain Free? Yes - Nurse 1 - General Ulcer Measurement Start: 04/13/22 08:15 Freq: Status: Active Protocol: Activity Type Activity Date Activity User E-sign Co-sign Detail Recorded Client Recorded Date Recorded By Document 04/13/22 08:15 GABRIEL [id number] 04/13/22 08:22 RB 04/13/22 08:15 Wound Center Nurse 1 9. R plantar -Combined with other wound No -Current Size (cm) - Length 1.1 -Current Size (cm) - Width 0.9 -Current Size (cm) - Depth 0.2 -Total Square Cm 0.99 -Tunneling No -Undermining/Tunneling No -Circular Undermining No -Exudate Amt Medium -Exudate Type Serosanguineous -Wound Margin Thickened -Granulation Amt Medium (34-66%) -Granulation Quality [place] -Slough/Fibrin Yes -Necrosis Amt Medium (34-66%) -Necrotic Tissue Type Adherent Slough -Structure Exposed N/A -Texture (Cecelia-wound Skin Appearance) Callus -Moisture (Cecelia-wound Skin Appearance) Assessed -Color (Cecelia-wound Skin Appearance) Assessed -Temperature (Cecelia-wound Skin No Abnormality Appearance) (Pt Warm) -Tenderness on Palpation (Cecelia-wound No Skin Appearance) -Ulcer Cleansing Wound Cleanser -Foul Odor after Cleansing No -Anesthetic Used 5% Lidocaine Gel 8. L heel -Combined with other wound No -Current Size (cm) - Length 2.3 -Current Size (cm) - Width 3.1 -Current Size (cm) - Depth 0.4 -Total Square Cm 7.13 -Tunneling No -Undermining/Tunneling No -Circular Undermining No -Exudate Amt Medium -Exudate Type Serosanguineous -Wound Margin Thickened -Granulation Amt Medium (34-66%) -Granulation Quality [place] -Slough/Fibrin Yes -Necrosis Amt Small (1-33%) -Necrotic Tissue Type Adherent Slough -Structure Exposed N/A -Texture (Cecelia-wound Skin Appearance) Callus -Moisture (Cecelia-wound Skin Appearance) Assessed -Color (Cecelia-wound Skin Appearance) Assessed -Temperature (Cecelia-wound Skin No Abnormality Appearance) (Pt Warm) -Tenderness on Palpation (Cecelia-wound No Skin Appearance) -Ulcer Cleansing Wound Cleanser -Foul Odor after Cleansing No -Anesthetic Used 5% Lidocaine Gel WC - Nurse 2 - General Ulcer CM Notes Start: 04/13/22 08:15 Freq: Status: Active Protocol: Activity Type Activity Date Activity User E-sign Co-sign Detail Recorded Client Recorded Date Recorded By Document 04/13/22 08:59 QUENTIN [id number] 04/13/22 09:02 PL 04/13/22 08:59 Wound Center Nurse 2 9. R plantar -Time 08:29 -Correct Patient Yes -Correct Side, Site, Position Yes -Correct Procedure Yes -Procedure Performed Yes -Type of Procedure Debridement -Clinical Debridement Subcutaneous -Tissue Removed Subcutaneous -Post Debridement (cm) - Length 1.1 -Post Debridement (cm) - Width 0.9 -Post Debridement (cm) - Depth 0.2 -Total Square (Post) (cm) 0.99 -Area of Debridement (cm) - Length 1.1 -Area of Debridement (cm) - Width 0.9 -Total Square (Area) (cm) 0.99 -Tunneling No -Undermining/Tunneling No -Circular Undermining No -Wound/Ulcer Outcome Not Healed -Ulcer Cleansing Rinsed/ Irrigated with Saline -Foul Odor after Cleansing No -Bioengineered Tissue No -Bleeding Controlled with Pressure -Treatment Response Procedure Tolerated Well -Debridement - Subq, 1st 20sq cm Yes 8. L heel -Time 08:29 -Correct Patient Yes -Correct Side, Site, Position Yes -Correct Procedure Yes -Procedure Performed Yes -Type of Procedure Debridement -Clinical Debridement Subcutaneous -Tissue Removed Subcutaneous -Post Debridement (cm) - Length 2.3 -Post Debridement (cm) - Width 3.1 -Post Debridement (cm) - Depth 0.4 -Total Square (Post) (cm) 7.13 -Area of Debridement (cm) - Length 2.3 -Area of Debridement (cm) - Width 3.1 -Total Square (Area) (cm) 7.13 -Tunneling No -Undermining/Tunneling No -Circular Undermining No -Wound/Ulcer Outcome Not Healed -Ulcer Cleansing Rinsed/ Irrigated with Saline -Foul Odor after Cleansing No -Bioengineered Tissue Yes -Type of Bioengineered Tissue Epifix Mesh -Expiration Date 12/07/26 -Product Lot Number [id number] -Percent Used 100 -Bleeding Controlled with Pressure -Treatment Response Procedure Tolerated Well -Offloading Yes -Type of Offloading Total Contact Cast (TCC) - Left ($) -Debridement - Subq, 1st 20sq cm No -Apply Skin Sub - 1st 25 sq cm - Feet 1 -Epifix Mesh (per sq cm) 11 Pain Scale: 0-10 Numeric Is Patient Pain Free? Yes - Nurse 3 - General Ulcer D/C NN Start: 04/13/22 08:15 Freq: Status: Active Protocol: Activity Type Activity Date Activity User E-sign Co-sign Detail Recorded Client Recorded Date Recorded By Document 04/13/22 09:03 [facility] [id number] 04/13/22 09:04 [facility] 04/13/22 09:03 Wound Care Nurse 3 9. R plantar -Ulcer Cleansing Rinsed/ Irrigated with Saline -Foul Odor after Cleansing No -Primary Dressing Applied Promogran Neida Matter -Primary Dressing Covered/Secured with Dry Gauze, Secured with Tape -Promogran Neida Matter 1 8. L heel -Primary Dressing Applied Mepilex Border -Other Dressing epifix -Other Covering tcc undercast size 3 -Mepilex Border 1 Treatment Response Procedure Tolerated Well Pain Scale: 0-10 Numeric Is Patient Pain Free? Yes WC - Visit Discharge Discharge Condition Stable Ambulatory Status Ambulatory Transportation Private Auto Assessment/Plan Assessment/Plan (1) Ulcer of right foot with fat layer exposed: CODE(S): L97.512 - Non-pressure chronic ulcer of other part of right foot with fat layer exposed (2) Lupus (systemic lupus erythematosus): CODE(S): M32.9 - Systemic lupus erythematosus, unspecified (3) Ulcer of left foot with fat layer exposed: CODE(S): L97.522 - Non-pressure chronic ulcer of other part of left foot with fat layer exposed (4) MRSA (methicillin resistant staph aureus) culture positive: CODE(S): Z22.322 - Carrier or suspected carrier of Methicillin resistant Staphylococcus aureus (5) Cellulitis of left lower limb: CODE(S): L03.116 - Cellulitis of left lower limb (6) Delayed wound healing: CODE(S): T14.8XXD - Other injury of unspecified body region, subsequent encounter (7) Non-pressure chronic ulcer of other part of left foot with necrosis of bone: CODE(S): L97.524 - Non-pressure chronic ulcer of other part of left foot with necrosis of bone (8) Fracture of great toe, right, closed: CODE(S): S92.401A - Displaced unspecified fracture of right great toe, initial encounter for closed fracture PLAN: Plan I reviewed and discussed her case. Subcutaneous excisional debridement was performed as noted in the clinical panel bilateral. Diagnostic data was also reviewed. Her healed toes on left foot noted The following recommendations were made. Change dressing daily with Neida to the right foot daily. Advance wound healing product: I recommend application of epi fix to optimize healing. The benefits and indications were reviewed and also expected management use. Prior authorization was obtained. This is medically necessary for limb salvage for the left heel ulcer. She is at risk for amputation and limb loss and further infections. Verbal consent was obtained and this was applied according standard protocol to the left heel. This was further secured with a wound veil and Steri-Strips. 100% of the product was utilized. She tolerated this well. To keep clean, dry, and intact until follow-up next week. offloading: To maintain strict nonweightbearing status with the knee roller, left with total contact cast and heel weightbear right in surgical shoe. Total contact cast was applied today according to standard protocol (left) in a well- padded in neutral position after verbal consent was obtained. She tolerated this well and will keep this clean, dry, and intact. Verbal consent was obtained prior to application and she will keep this clean and dry and intact as well. Infection: culture from wound with MRSA. Concern is deeper infection i nvolvement due to bulbous toe appearance including potential osteomyelitis. She has been taking doxycycline with some mild improvement however this is in regards to reduced erythema. It is noted she has continued communication with deep structures including the bone and there was bone that was debrided today from the left second toe. Infectious disease specialist, Dr. Reyes also saw and evaluated her today and input is greatly appreciated. She was advised to continue doxycycline and Augmentin will also be added to her regimen. She understands amputation will be recommended if she fails oral antibiotic treatment course of at least 6 weeks. ID recs appreciated. Improvement noted. nutrition: She was advised to maintain a balanced whole food diet with adequate protein and nutrients to optimize healing. To resume Yosvany supplementation use. Host factors. Neuropathy complicates her case. To monitor close due to inability to sensate as normal. She was also advised to avoid prednisone use and will also hold the Plaquenil at this time unless she has an intense flareup. This was previously reviewed verbally with Dr. Pratt. She also has a calcaneus gait with prior surgical intervention including a tendon transfer which is compromised with a fall in the early postoperative setting. We previously discussed options to surgically alleviate her calcaneus gait including retightening the Achilles tendon or other posterior leg muscles. Updated vascular (arterial) and doppler with reflux (venous) was ordered to assess for any abnormalities. The arterial studies were reviewed and no arterial disease or occlusions were identified. Venous insufficiency work-up is still pending. Diagnostic data: Her bilateral foot xrays (three views) were reviewed from 04-06-2022 without soft tissue emphysema, osseous destruction or foreign body. Chip fracture to medial proximal phalanx base unchanged noted to the right foot without additional osseous destruction. These results were discussed with her today and do not appear to be directly related to her ulcer site on her right foot. Labs reviewed from 02/15/22 with wbc 9.4, no renal dysfunction or other gross abnormalities. Note: [employer] speech recognition projection engineer software was used to create portions of this document. Sound-alike and misspelled words, as well as other projection engineer errors may be contained in the documentation. I discussed that she had a prior fracture identified to the right foot and I like to order serial x-ray. Order was provided today. This is to confirm that she has a simple chip fracture that does not have characteristics of a different diagnosis given her ongoing edema at this site. The medical decision making level is low. There is noted low risk of morbidity after considering this treatment plan and diagnostic data. The medical decision making level is limited based on data including the review of prior external notes, review of a prior test, or ordering a test.
[2022-04-18 16:14] VITALS: BMI 37.2
[2022-04-20 08:11] VITALS: BP 134/91; PULSE 109; RESP 16; TEMP 36.1; BMI 37.2
--- NOTE | 2022-04-20 19:34 | PCM.WC.PN ---
History of Present Illness Date of Service: 04/20/22 Chief Complaint: Left heel ulcer right foot ulcer History of Wound: This pleasant 56-year-old female with significant past medical history of lupus, history of panic attack, depression, history of delayed healing, hyperlipidemia, irritable bowel syndrome, memory loss, restless leg syndrome, and obstructive sleep apnea is here for follow-up of left heel ulcer. She denies fever, chill, nausea, vomiting. She takes antibiotics as advised by Dr. Reyes; 6 week duration is planned (doxycycline). She took a break from the total contact cast on the left side last week and is ready to proceed again this week. She also would like to review the results from her foot x-ray on the right foot. She has been offloading the right foot ulcer with a surgical shoe. Progress of Wound: Improving bilateral Objective Data Objective Data Vital Signs: Vital Signs Temp Pulse Resp BP O2 Del Method 97 F L 109 H 16 134/91 H Room Air 04/20/22 08:11 04/20/22 08:11 04/20/22 08:11 04/20/22 08:11 04/20/22 08:11 Oxygen Delivery Method Room Air Weight: 111.13 kg Body Mass Index (BMI) 37.2 Physical Exam Const alert and oriented x3 General Appearance: cooperative HEENT normocephalic Extremity Extremity Narrative: No calf tenderness Diminished pulses Muscle wasting noted General Extremity: edema and no tenderness to palpation of joints or extremities; Negative for cyanosis Skin Skin Narrative: no purulence, no streaking, no odor, no infection granular base ulcer with resolved peripheral maceration, necrosis or deep tissue exposure to left heel no bogginess or fluctuance on palpation bilateral. General Skin Exam: Negative for erythema Neuro Neuro Narrative: lack of normal epicritic sensation via light touch is consistent with neuropathy status Psych cooperative and affect normal Debridement Note Debridement Note Wound debrided: left heel, right plantar medial forefoot Wound Grade/Stage: Type of Debridement: Excisional debridement Anesthesia Used: 4% Lidocaine Solution Depth: in the subcutaneous layer Percentage of wound debrided: 100 Instrument Used: #15 blade Tissue Removed: fibrous, devitalized subcutaneous, biofilm, slough Severity: Fat Layer Exposed Amount of bleeding with debridement: Mild Bleeding Controlled with: Pressure Patient tolerated procedure: Patient tolerated procedure well Post-Debridement Measurements and Additional Note: Post-Debridement Measurements/Treatment WC - Nurse 1 - General Ulcer Assessment Start: 04/13/22 08:15 Freq: Status: Active Protocol: WC.LOWEXT Activity Type Activity Date Activity User E-sign Co-sign Detail Recorded Client Recorded Date Recorded By Document 04/13/22 08:15 RB [id number] 04/13/22 08:22 RB Document 04/18/22 16:14 [id number] 04/18/22 16:19 JF Document 04/20/22 08:11 [facility] [id number] 04/20/22 08:17 BMF 04/13/22 04/18/22 04/20/22 08:15 16:14 08:11 WC - Today's Visit Information Type of service Follow-up Visit Nurse-only Follow-up Visit (Physician/INSOLE ROUNDER Visit (Physician/INSOLE ROUNDER ) ) Arrival Mode Ambulatory Ambulatory Ambulatory Transfer Assistance None None Patient Identification Verified (Name & Yes Yes Yes ) Patient Requires Transmission-Based No No Precautions Height and Weight Body Mass Index (BMI) 37.2 37.2 37.2 BMI Classification Obese Obese Obese Vital Signs Temperature (97.8 F-99.1 F) 97.2 F L 97 F L Temperature Source Temporal Temporal Pulse Rate (60-100) 100 109 H Pulse Location Monitor Monitor Respiratory Rate (12-18) 18 16 Respiratory rate source Observation Observation Oxygen Delivery Method Room Air Blood Pressure (90/60-120/80) 151/93 H 134/91 H Blood Pressure Mean (mm Hg) 112 105 Source Monitor Monitor Position Semi-Fowlers Sitting Blood Pressure Location Left Arm Left Arm History Since Last Visit- (Skip if this is Patient's initial visit) Have you changed medications since your No No last visit? Any new allergies or adverse reactions No No Had a fall/change in ADL's that may No No increase risk of falls Signs or symptoms of abuse and/or No No neglect since last visit Have you been in the hospital since your No No last visit? Has dressing in place as prescribed Yes Yes Has compression in place as prescribed No N/A Has offloadiing in place as prescribed Yes Yes Experienced any changes in pain level or No No management Left Footwear Surgical Shoe Total Contact Surgical Shoe with pressure Cast with pressure relief insole relief insole Right Footwear Surgical Shoe Surgical Shoe with pressure with pressure relief insole relief insole Pain Scale: 0-10 Numeric Is Patient Pain Free? Yes Yes Yes WC - Nurse 1 - General Ulcer Measurement Start: 04/13/22 08:15 Freq: Status: Active Protocol: Activity Type Activity Date Activity User E-sign Co-sign Detail Recorded Client Recorded Date Recorded By Document 04/13/22 08:15 RB [id number] 04/13/22 08:22 RB Document 04/18/22 16:14 JF [id number] 04/18/22 16:19 JF Document 04/20/22 08:11 [facility] [id number] 04/20/22 08:17 [facility] 04/13/22 04/18/22 04/20/22 08:15 16:14 08:11 Wound Center Nurse 1 9. R plantar -Combined with other wound No -Current Size (cm) - Length 1.1 1.1 -Current Size (cm) - Width 0.9 0.8 -Current Size (cm) - Depth 0.2 0.3 -Total Square Cm 0.99 0.88 -Photo Taken Yes -Tunneling No -Undermining/Tunneling No -Circular Undermining No -Exudate Amt Medium Medium -Exudate Type Serosanguineous Serosanguineous -Wound Margin Thickened Distinct, Outline Attached -Granulation Amt Medium (34-66%) Large (67-100%) -Granulation Quality Homer C Jones Red -Slough/Fibrin Yes -Necrosis Amt Medium (34-66%) None Present (0 %) -Necrotic Tissue Type Adherent Slough -Structure Exposed N/A N/A -Texture (Cecelia-wound Skin Appearance) Callus Callus,Scarring -Moisture (Cecelia-wound Skin Appearance) Assessed Dry/Scaly -Color (Cecelia-wound Skin Appearance) Assessed No Abnormality -Temperature (Cecelia-wound Skin No Abnormality No Abnormality Appearance) (Pt Warm) (Pt Warm) -Tenderness on Palpation (Cecelia-wound No Skin Appearance) -Ulcer Cleansing Wound Cleanser Soap and Water -Foul Odor after Cleansing No No -Anesthetic Used 5% Lidocaine 4% Lidocaine Gel Solution 8. L heel -Combined with other wound No No -Current Size (cm) - Length 2.3 2.4 -Current Size (cm) - Width 3.1 3 -Current Size (cm) - Depth 0.4 0.4 -Total Square Cm 7.13 7.2 -Photo Taken No Yes -Epithelialization None Present -Tunneling No No -Undermining/Tunneling No No -Circular Undermining No No -Exudate Amt Medium Large Medium -Exudate Type Serosanguineous Serosanguineous Serosanguineous -Wound Margin Thickened Thickened & Distinct, Rolled Under Outline Attached -Granulation Amt Medium (34-66%) Large (67-100%) Medium (34-66%) -Granulation Quality Homer C Jones Red Red -Slough/Fibrin Yes Yes -Necrosis Amt Small (1-33%) Small (1-33%) Medium (34-66%) -Necrotic Tissue Type Adherent Slough Adherent Slough -Structure Exposed N/A N/A N/A -Texture (Cecelia-wound Skin Appearance) Callus Assessed Callus,Scarring -Moisture (Cecelia-wound Skin Appearance) Assessed Assessed, Dry/Scaly Maceration -Color (Cecelia-wound Skin Appearance) Assessed Assessed No Abnormality -Temperature (Cecelia-wound Skin No Abnormality No Abnormality No Abnormality Appearance) (Pt Warm) (Pt Warm) (Pt Warm) -Tenderness on Palpation (Cecelia-wound No No No Skin Appearance) -Ulcer Cleansing Wound Cleanser Wound Cleanser Soap and Water -Foul Odor after Cleansing No No No -Anesthetic Used 5% Lidocaine 4% Lidocaine Gel Solution -Wound Comment(s) Wound veil and steri-strips were already off skin when TCC was removed . WC - Nurse 2 - General Ulcer CM Notes Start: 04/13/22 08:15 Freq: Status: Active Protocol: Activity Type Activity Date Activity User E-sign Co-sign Detail Recorded Client Recorded Date Recorded By Document 04/13/22 08:59 [id number] 04/13/22 09:02 PL Document 04/20/22 08:31 [id number] 04/20/22 08:38 JF 04/13/22 04/20/22 08:59 08:31 Wound Center Nurse 2 9. R plantar -Time 08:29 08:32 -Correct Patient Yes Yes -Correct Side, Site, Position Yes Yes -Correct Procedure Yes Yes -Procedure Performed Yes Yes -Type of Procedure Debridement Debridement -Clinical Debridement Subcutaneous Subcutaneous -Tissue Removed Subcutaneous Subcutaneous -Post Debridement (cm) - Length 1.1 1.2 -Post Debridement (cm) - Width 0.9 0.8 -Post Debridement (cm) - Depth 0.2 0.3 -Total Square (Post) (cm) 0.99 0.96 -Area of Debridement (cm) - Length 1.1 1.2 -Area of Debridement (cm) - Width 0.9 0.8 -Total Square (Area) (cm) 0.99 0.96 -Tunneling No No -Undermining/Tunneling No No -Circular Undermining No No -Wound/Ulcer Outcome Not Healed Not Healed -Ulcer Cleansing Rinsed/ Rinsed/ Irrigated with Irrigated with Saline Saline -Foul Odor after Cleansing No No -Bioengineered Tissue No No -Bleeding Controlled with Pressure -Treatment Response Procedure Procedure Tolerated Well Tolerated Well -Offloading Yes -Type of Offloading Surgical Shoe -Debridement - Subq, 1st 20sq cm Yes Yes 8. L heel -Time 08:29 08:35 -Correct Patient Yes Yes -Correct Side, Site, Position Yes Yes -Correct Procedure Yes Yes -Procedure Performed Yes Yes -Type of Procedure Debridement Debridement -Clinical Debridement Subcutaneous Subcutaneous -Tissue Removed Subcutaneous Subcutaneous -Post Debridement (cm) - Length 2.3 2.5 -Post Debridement (cm) - Width 3.1 3 -Post Debridement (cm) - Depth 0.4 0.4 -Total Square (Post) (cm) 7.13 7.5 -Area of Debridement (cm) - Length 2.3 2.5 -Area of Debridement (cm) - Width 3.1 3.0 -Total Square (Area) (cm) 7.13 7.50 -Tunneling No No -Undermining/Tunneling No No -Circular Undermining No No -Wound/Ulcer Outcome Not Healed Not Healed -Ulcer Cleansing Rinsed/ Rinsed/ Irrigated with Irrigated with Saline Saline -Foul Odor after Cleansing No No -Bioengineered Tissue Yes Yes -Type of Bioengineered Tissue Epifix Mesh Epifix Mesh -Expiration Date 12/07/26 06/09/26 -Product Lot Number [id number] -Percent Used 100 100 -Lot number of Saline Used [id number] -Bleeding Controlled with Pressure Pressure -Treatment Response Procedure Procedure Tolerated Well Tolerated Well -Offloading Yes Yes -Type of Offloading Total Contact Total Contact Cast (TCC) - Cast (TCC) - Left ($) Left ($) -Debridement - Subq, 1st 20sq cm No No -Apply Skin Sub - 1st 25 sq cm - Feet 1 1 -Epifix Mesh (per sq cm) 11 11 Pain Scale: 0-10 Numeric Is Patient Pain Free? Yes Yes - Nurse 3 - General Ulcer D/C NN Start: 04/13/22 08:15 Freq: Status: Active Protocol: Activity Type Activity Date Activity User E-sign Co-sign Detail Recorded Client Recorded Date Recorded By Document 04/13/22 09:03 [facility] [id number] 04/13/22 09:04 [facility] Document 04/18/22 16:14 [id number] 04/18/22 16:19 04/13/22 04/18/22 09:03 16:14 Wound Care Nurse 3 9. R plantar -Ulcer Cleansing Rinsed/ Irrigated with Saline -Foul Odor after Cleansing No -Primary Dressing Applied Promogran Michael Matter -Primary Dressing Covered/Secured with Dry Gauze, Secured with Tape -Promogran Michael Matter 1 8. L heel -Ulcer Cleansing Soap and Water -Foul Odor after Cleansing No -Primary Dressing Applied Mepilex Border Promogran Michael Matter -Other Dressing epifix -Primary Dressing Covered/Secured with Dry Gauze & Roll Gauze, Secured with Tape -Other Covering tcc undercast size 3 -Mepilex Border 1 -Promogran Michael Matter 1 Left -Compression Wrap Kiran Wrap Treatment Response Procedure Tolerated Well Pain Scale: 0-10 Numeric Is Patient Pain Free? Yes Yes - Visit Discharge Discharge Condition Stable Stable Ambulatory Status Ambulatory Ambulatory Transportation Private Auto Private Auto Medication Reconcilliation completed & Yes provided to patient/care provider Clinical Summary of Care Provided Yes Notes: Patient left with michael to ulcer and nurse 's hat gauze applied. Patient ok to apply 0.25% Dakin's gauze to ulcer Tues am and Weds am until seen Weds by Dr Gutierrez to assist with drainage and odor. patient verbalizes understanding. Assessment/Plan Assessment/Plan (1) Ulcer of right foot with fat layer exposed: CODE(S): L97.512 - Non-pressure chronic ulcer of other part of right foot with fat layer exposed (2) Lupus (systemic lupus erythematosus): CODE(S): M32.9 - Systemic lupus erythematosus, unspecified (3) Ulcer of left foot with fat layer exposed: CODE(S): L97.522 - Non-pressure chronic ulcer of other part of left foot with fat layer exposed (4) MRSA (methicillin resistant staph aureus) culture positive: CODE(S): Z22.322 - Carrier or suspected carrier of Methicillin resistant Staphylococcus aureus (5) Cellulitis of left lower limb: CODE(S): L03.116 - Cellulitis of left lower limb (6) Delayed wound healing: CODE(S): T14.8XXD - Other injury of unspecified body region, subsequent encounter (7) Non-pressure chronic ulcer of other part of left foot with necrosis of bone: CODE(S): L97.524 - Non-pressure chronic ulcer of other part of left foot with necrosis of bone (8) Fracture of great toe, right, closed: CODE(S): S92.401A - Displaced unspecified fracture of right great toe, initial encounter for closed fracture PLAN: Plan I reviewed and discussed her case. Subcutaneous excisional debridement was performed as noted in the clinical panel bilateral. Diagnostic data was also reviewed. Her healed toes on left foot noted The following recommendations were made. Change dressing daily with Michael to the right foot daily. Advance wound healing product: I recommend application of epi fix to optimize healing. The benefits and indications were reviewed and also expected management use. Prior authorization was obtained. This is medically necessary for limb salvage for the left heel ulcer. She is at risk for amputation and limb loss and further infections. Verbal consent was obtained and this was applied according standard protocol to the left heel. This was further secured with a wound veil and Steri-Strips. 100% of the product was utilized. She tolerated this well. To keep clean, dry, and intact until follow-up next week. offloading: To maintain strict nonweightbearing status with the knee roller, left with total contact cast and heel weightbear right in surgical shoe. Total contact cast was applied today according to standard protocol (left) in a well-padded in neutral position after verbal consent was obtained. She tolerated this well and will keep this clean, dry, and intact. Verbal consent was obtained prior to application and she will keep this clean and dry and intact as well. Infection: culture from wound with MRSA. Concern is deeper infection involvement due to bulbous toe appearance including potential osteomyelitis. She has been taking doxycycline with some mild improvement however this is in regards to reduced erythema. It is noted she has continued communication with deep structures including the bone and there was bone that was debrided today from the left second toe. Infectious disease specialist, Dr. Reyes also saw and evaluated her today and input is greatly appreciated. She was advised to continue doxycycline and Augmentin will also be added to her regimen. She understands amputation will be recommended if she fails oral antibiotic treatment course of at least 6 weeks. ID recs appreciated. Improvement noted. nutrition: She was advised to maintain a balanced whole food diet with adequate protein and nutrients to optimize healing. To resume Yosvany supplementation use. Host factors. Neuropathy complicates her case. To monitor close due to inability to sensate as normal. She was also advised to avoid prednisone use and will also hold the Plaquenil at this time unless she has an intense flareup. This was previously reviewed verbally with Dr. Pratt. She also has a calcaneus gait with prior surgical intervention including a tendon transfer which is compromised with a fall in the early postoperative setting. We previously discussed options to surgically alleviate her calcaneus gait including retightening the Achilles tendon or other posterior leg muscles. Updated vascular (arterial) and doppler with reflux (venous) was ordered to assess for any abnormalities. The arterial studies were reviewed and no arterial disease or occlusions were identified. Venous insufficiency work-up is still pending. Diagnostic data: Her bilateral foot xrays (three views) were reviewed from 04-06-2022 without soft tissue emphysema, osseous destruction or foreign body. Chip fracture to medial proximal phalanx base unchanged noted to the right foot without additional osseous destruction. These results were discussed with her today and do not appear to be directly related to her ulcer site on her right foot. Labs reviewed from 02/15/22 with wbc 9.4, no renal dysfunction or other gross abnormalities. Note: [employer] speech recognition lap regulator software was used to create portions of this document. Sound-alike and misspelled words, as well as other lap regulator errors may be contained in the documentation. I discussed that she had a prior fracture identified to the right foot and I like to order serial x-ray. This is to confirm that she has a simple chip fracture that does not have characteristics of a different diagnosis given her ongoing edema at this site.
[2022-04-27 08:13] VITALS: BP 130/80; PULSE 107; RESP 18; TEMP 36.3; BMI 37.2
--- NOTE | 2022-04-27 09:30 | PN.PCM_ITS ---
History of Present Illness Date of Service: 04/27/22 Chief Complaint: Left heel ulcer right foot ulcer History of Wound: This pleasant 56-year-old female with significant past medical history of lupus, history of panic attack, depression, history of delayed healing, hyperlipidemia, irritable bowel syndrome, memory loss, restless leg syndrome, and obstructive sleep apnea is here for follow-up of left heel ulcer. She denies fever, chill, nausea, vomiting. She is ready for total contact cast application again today. Progress of Wound: Improving bilateral Objective Data Objective Data Vital Signs: Vital Signs Temp Pulse Resp BP O2 Del Method 97.3 F L 107 H 18 130/80 H Room Air 04/27/22 08:13 04/27/22 08:13 04/27/22 08:13 04/27/22 08:13 04/20/22 08:11 Oxygen Delivery Method Room Air Weight: 111.13 kg Body Mass Index (BMI) 37.2 Physical Exam Const alert and oriented x3 General Appearance: cooperative HEENT normocephalic Extremity Extremity Narrative: No calf tenderness Diminished pulses Muscle wasting noted General Extremity: edema and no tenderness to palpation of joints or extremities; Negative for cyanosis Skin Skin Narrative: no purulence, no streaking, no odor, no infection granular base ulcer with resolved peripheral maceration, necrosis or deep tissue exposure to left heel. healthy granular base plantar medial right foot sub 1st metatarsal head region no bogginess or fluctuance on palpation bilateral. General Skin Exam: Negative for erythema Neuro Neuro Narrative: lack of normal epicritic sensation via light touch is consistent with neuropathy status Psych cooperative and affect normal Debridement Note Debridement Note Wound debrided: left heel, right plantar medial forefoot Wound Grade/Stage: Type of Debridement: Excisional debridement Anesthesia Used: 4% Lidocaine Solution Depth: in the subcutaneous layer Percentage of wound debrided: 100 Instrument Used: #15 blade Tissue Removed: fibrous, devitalized subcutaneous, biofilm, slough Severity: Fat Layer Exposed Amount of bleeding with debridement: Mild Bleeding Controlled with: Pressure Patient tolerated procedure: Patient tolerated procedure well Post-Debridement Measurements and Additional Note: Post-Debridement Measurements/Treatment ARACELI - Nurse 1 - General Ulcer Assessment Start: 04/13/22 08:15 Freq: Status: Active Protocol: OLGA Activity Type Activity Date Activity User E-sign Co-sign Detail Recorded Client Recorded Date Recorded By Document 04/13/22 08:15 RB [id number] 04/13/22 08:22 RB Document 04/18/22 16:14 [id number] 04/18/22 16:19 JF Document 04/20/22 08:11 BM [id number] 04/20/22 08:17 BMF Document 04/27/22 08:13 RB [id number] 04/27/22 08:26 RB 04/13/22 04/18/22 04/20/22 08:15 16:14 08:11 WC - Today's Visit Information Type of service Follow-up Visit Nurse-only Follow-up Visit (Physician/PHOTOGRAMMETRIC STEREO COMPILER Visit (Physician/PHOTOGRAMMETRIC STEREO COMPILER ) ) Arrival Mode Ambulatory Ambulatory Ambulatory Transfer Assistance None None Patient Identification Verified (Name & Yes Yes Yes ) Patient Requires Transmission-Based No No Precautions Height and Weight Body Mass Index (BMI) 37.2 37.2 37.2 BMI Classification Obese Obese Obese Vital Signs Temperature (97.8 F-99.1 F) 97.2 F L 97 F L Temperature Source Temporal Temporal Pulse Rate (60-100) 100 109 H Pulse Location Monitor Monitor Respiratory Rate (12-18) 18 16 Respiratory rate source Observation Observation Oxygen Delivery Method Room Air Blood Pressure (90/60-120/80) 151/93 H 134/91 H Blood Pressure Mean (mm Hg) 112 105 Source Monitor Monitor Position Semi-Fowlers Sitting Blood Pressure Location Left Arm Left Arm History Since Last Visit- (Skip if this is Patient's initial visit) Have you changed medications since your No No last visit? Any new allergies or adverse reactions No No Had a fall/change in ADL's that may No No increase risk of falls Signs or symptoms of abuse and/or No No neglect since last visit Have you been in the hospital since your No No last visit? Has dressing in place as prescribed Yes Yes Has compression in place as prescribed No N/A Has offloadiing in place as prescribed Yes Yes Experienced any changes in pain level or No No management Left Footwear Surgical Shoe Total Contact Surgical Shoe with pressure Cast with pressure relief insole relief insole Right Footwear Surgical Shoe Surgical Shoe with pressure with pressure relief insole relief insole Pain Scale: 0-10 Numeric Is Patient Pain Free? Yes Yes Yes 04/27/22 08:13 WC - Today's Visit Information Type of service Follow-up Visit (Physician/PHOTOGRAMMETRIC STEREO COMPILER ) Arrival Mode Ambulatory Transfer Assistance None Patient Identification Verified (Name & Yes ) Patient Requires Transmission-Based No Precautions Height and Weight Body Mass Index (BMI) 37.2 BMI Classification Obese Vital Signs Temperature (97.8 F-99.1 F) 97.3 F L Temperature Source Temporal Pulse Rate (60-100) 107 H Pulse Location Monitor Respiratory Rate (12-18) 18 Respiratory rate source Observation Oxygen Delivery Method Blood Pressure (90/60-120/80) 130/80 H Blood Pressure Mean (mm Hg) 96 Source Monitor Position Semi-Fowlers Blood Pressure Location Left Arm History Since Last Visit- (Skip if this is Patient's initial visit) Have you changed medications since your No last visit? Any new allergies or adverse reactions No Had a fall/change in ADL's that may No increase risk of falls Signs or symptoms of abuse and/or No neglect since last visit Have you been in the hospital since your No last visit? Has dressing in place as prescribed Yes Has compression in place as prescribed No Has offloadiing in place as prescribed Yes Experienced any changes in pain level or management Left Footwear Total Contact Cast Right Footwear Surgical Shoe with pressure relief insole Pain Scale: 0-10 Numeric Is Patient Pain Free? Yes - Nurse 1 - General Ulcer Measurement Start: 04/13/22 08:15 Freq: Status: Active Protocol: Activity Type Activity Date Activity User E-sign Co-sign Detail Recorded Client Recorded Date Recorded By Document 04/13/22 08:15 [id number] 04/13/22 08:22 Document 04/18/22 16:14 [id number] 04/18/22 16:19 Document 04/20/22 08:11 [facility] [id number] 04/20/22 08:17 [facility] Document 04/27/22 08:13 RB [id number] 04/27/22 08:26 RB 04/13/22 04/18/22 04/20/22 08:15 16:14 08:11 Wound Center Nurse 1 9. R plantar -Combined with other wound No -Current Size (cm) - Length 1.1 1.1 -Current Size (cm) - Width 0.9 0.8 -Current Size (cm) - Depth 0.2 0.3 -Total Square Cm 0.99 0.88 -Photo Taken Yes -Epithelialization -Tunneling No -Undermining/Tunneling No -Circular Undermining No -Exudate Amt Medium Medium -Exudate Type Serosanguineous Serosanguineous -Wound Margin Thickened Distinct, Outline Attached -Granulation Amt Medium (34-66%) Large (67-100%) -Granulation Quality [place] Red -Slough/Fibrin Yes -Necrosis Amt Medium (34-66%) None Present (0 %) -Necrotic Tissue Type Adherent Slough -Structure Exposed N/A N/A -Texture (Cecelia-wound Skin Appearance) Callus Callus,Scarring -Moisture (Cecelia-wound Skin Appearance) Assessed Dry/Scaly -Color (Cecelia-wound Skin Appearance) Assessed No Abnormality -Temperature (Cecelia-wound Skin No Abnormality No Abnormality Appearance) (Pt Warm) (Pt Warm) -Tenderness on Palpation (Cecelia-wound No Skin Appearance) -Ulcer Cleansing Wound Cleanser Soap and Water -Foul Odor after Cleansing No No -Anesthetic Used 5% Lidocaine 4% Lidocaine Gel Solution 8. L heel -Combined with other wound No No -Current Size (cm) - Length 2.3 2.4 -Current Size (cm) - Width 3.1 3 -Current Size (cm) - Depth 0.4 0.4 -Total Square Cm 7.13 7.2 -Photo Taken No Yes -Epithelialization None Present -Tunneling No No -Undermining/Tunneling No No -Circular Undermining No No -Exudate Amt Medium Large Medium -Exudate Type Serosanguineous Serosanguineous Serosanguineous -Wound Margin Thickened Thickened & Distinct, Rolled Under Outline Attached -Granulation Amt Medium (34-66%) Large (67-100%) Medium (34-66%) -Granulation Quality [place] Red -Slough/Fibrin Yes Yes -Necrosis Amt Small (1-33%) Small (1-33%) Medium (34-66%) -Necrotic Tissue Type Adherent Slough Adherent Slough -Structure Exposed N/A N/A N/A -Texture (Cecelia-wound Skin Appearance) Callus Assessed Callus,Scarring -Moisture (Cecelia-wound Skin Appearance) Assessed Assessed, Dry/Scaly Maceration -Color (Ceceila-wound Skin Appearance) Assessed Assessed No Abnormality -Temperature (Cecelia-wound Skin No Abnormality No Abnormality No Abnormality Appearance) (Pt Warm) (Pt Warm) (Pt Warm) -Tenderness on Palpation (Cecelia-wound No No No Skin Appearance) -Ulcer Cleansing Wound Cleanser Wound Cleanser Soap and Water -Foul Odor after Cleansing No No No -Anesthetic Used 5% Lidocaine 4% Lidocaine Gel Solution -Wound Comment(s) Wound veil and steri-strips were already off skin when TCC was removed . 04/27/22 08:13 Wound Center Nurse 1 9. R plantar -Combined with other wound No -Current Size (cm) - Length 1 -Current Size (cm) - Width 1 -Current Size (cm) - Depth 0.6 -Total Square Cm 1 -Photo Taken Yes -Epithelialization Small 1-33% -Tunneling No -Undermining/Tunneling No -Circular Undermining No -Exudate Amt Medium -Exudate Type Serosanguineous -Wound Margin Thickened & Rolled Under -Granulation Amt Large (67-100%) -Granulation Quality [place],Red -Slough/Fibrin Yes -Necrosis Amt Small (1-33%) -Necrotic Tissue Type Adherent Slough -Structure Exposed N/A -Texture (Cecelia-wound Skin Appearance) Callus -Moisture (Cecelia-wound Skin Appearance) Assessed -Color (Cecelia-wound Skin Appearance) Assessed -Temperature (Cecelia-wound Skin No Abnormality Appearance) (Pt Warm) -Tenderness on Palpation (Cecelia-wound No Skin Appearance) -Ulcer Cleansing Wound Cleanser -Foul Odor after Cleansing No -Anesthetic Used 5% Lidocaine Gel 8. L heel -Combined with other wound No -Current Size (cm) - Length 2.4 -Current Size (cm) - Width 3.1 -Current Size (cm) - Depth 1 -Total Square Cm 7.44 -Photo Taken -Epithelialization -Tunneling No -Undermining/Tunneling No -Circular Undermining No -Exudate Amt Large -Exudate Type Serosanguineous -Wound Margin Thickened & Rolled Under -Granulation Amt Medium (34-66%) -Granulation Quality [place],Red -Slough/Fibrin Yes -Necrosis Amt Small (1-33%) -Necrotic Tissue Type Adherent Slough -Structure Exposed N/A -Texture (Cecelia-wound Skin Appearance) Callus -Moisture (Cecelia-wound Skin Appearance) Assessed -Color (Cecelia-wound Skin Appearance) Assessed -Temperature (Cecelia-wound Skin No Abnormality Appearance) (Pt Warm) -Tenderness on Palpation (Cecelia-wound No Skin Appearance) -Ulcer Cleansing Wound Cleanser -Foul Odor after Cleansing No -Anesthetic Used 5% Lidocaine Gel -Wound Comment(s) WC - Nurse 2 - General Ulcer CM Notes Start: 04/13/22 08:15 Freq: Status: Active Protocol: Activity Type Activity Date Activity User E-sign Co-sign Detail Recorded Client Recorded Date Recorded By Document 04/13/22 08:59 PL [id number] 04/13/22 09:02 PL Document 04/20/22 08:31 JF [id number] 04/20/22 08:38 JF Document 04/27/22 09:05 PL [id number] 04/27/22 09:08 PL 04/13/22 04/20/22 04/27/22 08:59 08:31 09:05 Wound Center Nurse 2 9. R plantar -Time 08:29 08:32 08:35 -Correct Patient Yes Yes Yes -Correct Side, Site, Position Yes Yes Yes -Correct Procedure Yes Yes Yes -Procedure Performed Yes Yes Yes -Type of Procedure Debridement Debridement Debridement -Clinical Debridement Subcutaneous Subcutaneous Subcutaneous -Tissue Removed Subcutaneous Subcutaneous Subcutaneous -Post Debridement (cm) - Length 1.1 1.2 1.0 -Post Debridement (cm) - Width 0.9 0.8 1.0 -Post Debridement (cm) - Depth 0.2 0.3 0.6 -Total Square (Post) (cm) 0.99 0.96 1.00 -Area of Debridement (cm) - Length 1.1 1.2 1.0 -Area of Debridement (cm) - Width 0.9 0.8 1.0 -Total Square (Area) (cm) 0.99 0.96 1.00 -Tunneling No No No -Undermining/Tunneling No No No -Circular Undermining No No No -Wound/Ulcer Outcome Not Healed Not Healed Not Healed -Ulcer Cleansing Rinsed/ Rinsed/ Rinsed/ Irrigated with Irrigated with Irrigated with Saline Saline Saline -Foul Odor after Cleansing No No No -Bioengineered Tissue No No No -Bleeding Controlled with Pressure Pressure -Treatment Response Procedure Procedure Procedure Tolerated Well Tolerated Well Tolerated Well -Offloading Yes -Type of Offloading Surgical Shoe -Debridement - Subq, 1st 20sq cm Yes Yes Yes 8. L heel -Time 08:29 08:35 08:35 -Correct Patient Yes Yes Yes -Correct Side, Site, Position Yes Yes Yes -Correct Procedure Yes Yes Yes -Procedure Performed Yes Yes Yes -Type of Procedure Debridement Debridement Debridement -Clinical Debridement Subcutaneous Subcutaneous Subcutaneous -Tissue Removed Subcutaneous Subcutaneous Subcutaneous -Post Debridement (cm) - Length 2.3 2.5 2.4 -Post Debridement (cm) - Width 3.1 3 3.1 -Post Debridement (cm) - Depth 0.4 0.4 1.0 -Total Square (Post) (cm) 7.13 7.5 7.44 -Area of Debridement (cm) - Length 2.3 2.5 2.4 -Area of Debridement (cm) - Width 3.1 3.0 3.1 -Total Square (Area) (cm) 7.13 7.50 7.44 -Tunneling No No No -Undermining/Tunneling No No No -Circular Undermining No No No -Wound/Ulcer Outcome Not Healed Not Healed Not Healed -Ulcer Cleansing Rinsed/ Rinsed/ Rinsed/ Irrigated with Irrigated with Irrigated with Saline Saline Saline -Foul Odor after Cleansing No No No -Bioengineered Tissue Yes Yes Yes -Type of Bioengineered Tissue Epifix Mesh Epifix Mesh Epifix -Expiration Date 12/07/26 06/09/26 01/07/27 -Product Lot Number [id number] -Percent Used 100 100 100 -Lot number of Saline Used [id number] -Bleeding Controlled with Pressure Pressure Pressure -Treatment Response Procedure Procedure Procedure Tolerated Well Tolerated Well Tolerated Well -Offloading Yes Yes -Type of Offloading Total Contact Total Contact Total Contact Cast (TCC) - Cast (TCC) - Cast (TCC) - Left ($) Left ($) Left ($) -Debridement - Subq, 1st 20sq cm No No No -Apply Skin Sub - 1st 25 sq cm - Feet 1 1 1 -Epifix (per sq cm) 4 -Epifix Mesh (per sq cm) 11 11 Pain Scale: 0-10 Numeric Is Patient Pain Free? Yes Yes Yes - Nurse 3 - General Ulcer D/C NN Start: 04/13/22 08:15 Freq: Status: Active Protocol: Activity Type Activity Date Activity User E-sign Co-sign Detail Recorded Client Recorded Date Recorded By Document 04/13/22 09:03 [facility] [id number] 04/13/22 09:04 [facility] Document 04/18/22 16:14 [id number] 04/18/22 16:19 JF Document 04/27/22 08:49 DL [id number] 04/27/22 08:53 DL 04/13/22 04/18/22 04/27/22 09:03 16:14 08:49 Wound Care Nurse 3 9. R plantar -Ulcer Cleansing Rinsed/ Rinsed/ Irrigated with Irrigated with Saline Saline -Foul Odor after Cleansing No No -Primary Dressing Applied Promogran Promogran Michael Matter Michael Matter -Primary Dressing Covered/Secured with Dry Gauze, Dry Gauze & Secured with Roll Gauze, Tape Secured with Tape -Promogran Michael Matter 1 1 8. L heel -Ulcer Cleansing Soap and Water -Foul Odor after Cleansing No No -Primary Dressing Applied Mepilex Border Promogran Optilok 6.5x10 Michael Matter -Other Dressing epifix Epifix/ superabsorber -Primary Dressing Covered/Secured with Dry Gauze & Roll Gauze, Secured with Tape -Other Covering tcc undercast TCC casting size 3 system #3 -Mepilex Border 1 -Optilok 6.5x10 1 -Promogran Michael Matter 1 Left -Compression Wrap Kiran Wrap Treatment Response Procedure Procedure Tolerated Well Tolerated Well Pain Scale: 0-10 Numeric Is Patient Pain Free? Yes Yes Yes WC - Visit Discharge Discharge Condition Stable Stable Stable Ambulatory Status Ambulatory Ambulatory Ambulatory Transportation Private Auto Private Auto Private Auto Medication Reconcilliation completed & Yes provided to patient/care provider Clinical Summary of Care Provided Yes Notes: Patient left with michael to ulcer and nurse 's hat gauze applied. Patient ok to apply 0.25% Dakin's gauze to ulcer Tues am and Weds am until seen Weds by Dr Gutierrez to assist with drainage and odor. patient verbalizes understanding. Assessment/Plan Assessment/Plan (1) Ulcer of right foot with fat layer exposed: CODE(S): L97.512 - Non-pressure chronic ulcer of other part of right foot with fat layer exposed (2) Lupus (systemic lupus erythematosus): CODE(S): M32.9 - Systemic lupus erythematosus, unspecified (3) Ulcer of left foot with fat layer exposed: CODE(S): L97.522 - Non-pressure chronic ulcer of other part of left foot w ith fat layer exposed (4) MRSA (methicillin resistant staph aureus) culture positive: CODE(S): Z22.322 - Carrier or suspected carrier of Methicillin resistant Staphylococcus aureus (5) Cellulitis of left lower limb: CODE(S): L03.116 - Cellulitis of left lower limb (6) Delayed wound healing: CODE(S): T14.8XXD - Other injury of unspecified body region, subsequent encounter (7) Fracture of great toe, right, closed: CODE(S): S92.401A - Displaced unspecified fracture of right great toe, initial encounter for closed fracture PLAN: Plan I reviewed and discussed her case. Subcutaneous excisional debridement was performed as noted in the clinical panel bilateral. Diagnostic data was also reviewed. Her healed toes on left foot noted The following recommendations were made. Change dressing daily with Michael to the right foot daily. Advance wound healing product: I recommend application of epi fix to optimize healing. The benefits and indications were reviewed and also expected management use. Prior authorization was obtained. This is medically necessary for limb salvage for the left heel ulcer. She is at risk for amputation and limb loss and further infections. Verbal consent was obtained and this was applied according standard protocol to the left heel. This was further secured with a wound veil and Steri-Strips. 100% of the product was utilized. She tolerated this well. To keep clean, dry, and intact until follow-up next week. offloading: To maintain strict nonweightbearing status with the knee roller, left with total contact cast and heel weightbear right in surgical shoe. Total contact cast was applied today according to standard protocol (left) in a well- padded in neutral position after verbal consent was obtained. She tolerated this well and will keep this clean, dry, and intact. Verbal consent was obtained prior to application and she will keep this clean and dry and intact as well. Infection: culture from wound with MRSA. Concern is deeper infection involvement due to bulbous toe appearance including potential osteomyelitis. She has been taking doxycycline with some mild improvement however this is in regards to reduced erythema. It is noted she has continued communication with deep structures including the bone and there was bone that was debrided today from the left second toe. Infectious disease specialist, Dr. Reyes also saw and evaluated her today and input is greatly appreciated. She was advised to continue doxycycline and Augmentin will also be added to her regimen. She understands amputation will be recommended if she fails oral antibiotic treatment course of at least 6 weeks. ID recs appreciated. Improvement noted. nutrition: She was advised to maintain a balanced whole food diet with adequate protein and nutrients to optimize healing. To resume Yosvany supplementation use. Host factors. Neuropathy complicates her case. To monitor close due to inability to sensate as normal. She was also advised to avoid prednisone use and will also hold the Plaquenil at this time unless she has an intense flareup. This was previously reviewed verbally with Dr. Pratt. She also has a calcaneus gait with prior surgical intervention including a tendon transfer which is compromised with a fall in the early postoperative setting. We previously discussed options to surgically alleviate her calcaneus gait including retightening the Achilles tendon or other posterior leg muscles. Updated vascular (arterial) and doppler with reflux (venous) was ordered to assess for any abnormalities. The arterial studies were reviewed and no arterial disease or occlusions were identified. Venous insufficiency work-up is still pending. Diagnostic data: Her bilateral foot xrays (three views) were reviewed from 04-06-2022 without soft tissue emphysema, osseous destruction or foreign body. Chip fracture to medial proximal phalanx base unchanged noted to the right foot without additional osseous destruction. T Labs reviewed from 02/15/22 with wbc 9.4, no renal dysfunction or other gross abnormalities. Note: [employer] speech recognition supervisor chlorine liquefaction software was used to create portions of this document. Sound-alike and misspelled words, as well as other supervisor chlorine liquefaction errors may be contained in the documentation.
[2022-05-06 09:36] VITALS: BP 137/76; PULSE 116; TEMP 36.2; BMI 37.2
--- NOTE | 2022-05-06 10:17 | PN.PCM_ITS ---
History of Present Illness Date of Service: 05/06/22 Chief Complaint: Left heel ulcer right foot ulcer History of Wound: This pleasant 56-year-old female with significant past medical history of lupus, history of panic attack, depression, history of delayed healing, hyperlipidemia, irritable bowel syndrome, memory loss, restless leg syndrome, and obstructive sleep apnea is here for follow-up of left heel ulcer. She denies fever, chill, nausea, vomiting. She is ready for total contact cast application again today. Progress of Wound: Courtesy visit, patient was out of town for her appointment on Monday. Bilateral ulcers are stable bilaterally. Epifix #4 placed today on left heel. Objective Data Objective Data Vital Signs: Vital Signs Temp Pulse Resp BP O2 Del Method 97.2 F L 116 H 18 137/76 H Room Air 05/06/22 09:36 05/06/22 09:36 04/27/22 08:13 05/06/22 09:36 04/20/22 08:11 Oxygen Delivery Method Room Air Weight: 245 lb Body Mass Index (BMI) 37.2 Charges/Coding Addendum Addendum: 30858 left foot and leg total contact cast Procedures Integumentary 111xxx-113xx: 24166 Madina subq tissue 20 sq cm/< (right foot) 150xxx-152xx: 69525 Skin sub graft face/nk/hf/g (left heel) Physical Exam Const alert and oriented x3 General Appearance: cooperative HEENT normocephalic Resp normal respiratory effort Cardio regular rate Extremity normal capillary refill and no calf tenderness Extremity Narrative: Bilateral pedal pulses palpable but diminished. +1 edema bilateral lower extremities. Skin color pink, with no pain or tenderness with palpation. Skin Wound Narrative: Left heel ulcer is beefy pink granulation tissue. No purulent drainage, no odor, no signs of infection. Left plantar ulcer, medial to 1st metatarsal head base of ulcer with pink granulation tissue, edges dry and easily removed with debridement. Neuro Speech: speech normal Psych affect normal Debridement Note Debridement Note Wound debrided: heel Laterality: Left Type of Debridement: Excisional debridement Anesthesia Used: 5% Lidocaine Gel Depth: Down to and including healthy tissue and in the subcutaneous layer Percentage of wound debrided: 100 Tissue Removed: Non viable tissue and slough Severity: Fat Layer Exposed Amount of bleeding with debridement: Mild Bleeding Controlled with: Pressure and Compression and gauze Patient tolerated procedure: Patient tolerated procedure well Post-Debridement Measurements and Additional Note: Post-Debridement Measurements/Treatment WC - Nurse 1 - General Ulcer Assessment Start: 04/13/22 08:15 Freq: Status: Active Protocol: OLGA Activity Type Activity Date Activity User E-sign Co-sign Detail Recorded Client Recorded Date Recorded By Document 04/13/22 08:15 RB [id number] 04/13/22 08:22 RB Document 04/18/22 16:14 JF [id number] 04/18/22 16:19 JF Document 04/20/22 08:11 BMF [id number] 04/20/22 08:17 BMF Document 04/27/22 08:13 RB [id number] 04/27/22 08:26 RB Document 05/06/22 09:36 AK [id number] 05/06/22 09:42 AK 04/13/22 04/18/22 04/20/22 08:15 16:14 08:11 - Today's Visit Information Type of service Follow-up Visit Nurse-only Follow-up Visit (Physician/SHEET ROCK APPLICATOR Visit (Physician/SHEET ROCK APPLICATOR ) ) Arrival Mode Ambulatory Ambulatory Ambulatory Transfer Assistance None None Patient Identification Verified (Name & Yes Yes Yes ) Patient Requires Transmission-Based No No Precautions Safety Precautions Height and Weight Body Mass Index (BMI) 37.2 37.2 37.2 BMI Classification Obese Obese Obese Vital Signs Temperature (97.8 F-99.1 F) 97.2 F L 97 F L Temperature Source Temporal Temporal Pulse Rate (60-100) 100 109 H Pulse Location Monitor Monitor Respiratory Rate (12-18) 18 16 Respiratory rate source Observation Observation Oxygen Delivery Method Room Air Blood Pressure (90/60-120/80) 151/93 H 134/91 H Blood Pressure Mean (mm Hg) 112 105 Source Monitor Monitor Position Semi-Fowlers Sitting Blood Pressure Location Left Arm Left Arm History Since Last Visit- (Skip if this is Patient's initial visit) Have you changed medications since your No No last visit? Any new allergies or adverse reactions No No Had a fall/change in ADL's that may No No increase risk of falls Signs or symptoms of abuse and/or No No neglect since last visit Have you been in the hospital since your No No last visit? Has dressing in place as prescribed Yes Yes Has compression in place as prescribed No N/A Has offloadiing in place as prescribed Yes Yes Experienced any changes in pain level or No No management Left Footwear Surgical Shoe Total Contact Surgical Shoe with pressure Cast with pressure relief insole relief insole Right Footwear Surgical Shoe Surgical Shoe with pressure with pressure relief insole relief insole Pain Scale: 0-10 Numeric Is Patient Pain Free? Yes Yes Yes 04/27/22 05/06/22 08:13 09:36 - Today's Visit Information Type of service Follow-up Visit Follow-up Visit (Physician/SHEET ROCK APPLICATOR (Physician/SHEET ROCK APPLICATOR ) ) Arrival Mode Ambulatory Ambulatory Transfer Assistance None Patient Identification Verified (Name & Yes Yes ) Patient Requires Transmission-Based No No Precautions Safety Precautions NA Height and Weight Body Mass Index (BMI) 37.2 37.2 BMI Classification Obese Obese Vital Signs Temperature (97.8 F-99.1 F) 97.3 F L 97.2 F L Temperature Source Temporal Temporal Pulse Rate (60-100) 107 H 116 H Pulse Location Monitor Monitor Respiratory Rate (12-18) 18 Respiratory rate source Observation Oxygen Delivery Method Blood Pressure (90/60-120/80) 130/80 H 137/76 H Blood Pressure Mean (mm Hg) 96 96 Source Monitor Monitor Position Semi-Fowlers Blood Pressure Location Left Arm History Since Last Visit- (Skip if this is Patient's initial visit) Have you changed medications since your No No last visit? Any new allergies or adverse reactions No No Had a fall/change in ADL's that may No No increase risk of falls Signs or symptoms of abuse and/or No No neglect since last visit Have you been in the hospital since your No No last visit? Has dressing in place as prescribed Yes Yes Has compression in place as prescribed No Yes Has offloadiing in place as prescribed Yes Yes Experienced any changes in pain level or No management Left Footwear Total Contact Total Contact Cast Cast Right Footwear Surgical Shoe Regular Shoe with pressure relief insole Pain Scale: 0-10 Numeric Is Patient Pain Free? Yes Yes - Nurse 1 - General Ulcer Measurement Start: 04/13/22 08:15 Freq: Status: Active Protocol: Activity Type Activity Date Activity User E-sign Co-sign Detail Recorded Client Recorded Date Recorded By Document 04/13/22 08:15 GABRIEL [id number] 04/13/22 08:22 RB Document 04/18/22 16:14 [id number] 04/18/22 16:19 Document 04/20/22 08:11 [facility] [id number] 04/20/22 08:17 BM Document 04/27/22 08:13 RB [id number] 04/27/22 08:26 RB Document 05/06/22 09:36 AK [id number] 05/06/22 09:42 AK 04/13/22 04/18/22 04/20/22 08:15 16:14 08:11 Wound Center Nurse 1 9. R plantar -Combined with other wound No -Current Size (cm) - Length 1.1 1.1 -Current Size (cm) - Width 0.9 0.8 -Current Size (cm) - Depth 0.2 0.3 -Total Square Cm 0.99 0.88 -Photo Taken Yes -Epithelialization -Tunneling No -Undermining/Tunneling No -Circular Undermining No -Exudate Amt Medium Medium -Exudate Type Serosanguineous Serosanguineous -Wound Margin Thickened Distinct, Outline Attached -Granulation Amt Medium (34-66%) Large (67-100%) -Granulation Quality [place] Red -Slough/Fibrin Yes -Necrosis Amt Medium (34-66%) None Present (0 %) -Necrotic Tissue Type Adherent Slough -Structure Exposed N/A N/A -Texture (Cecelia-wound Skin Appearance) Callus Callus,Scarring -Moisture (Cecelia-wound Skin Appearance) Assessed Dry/Scaly -Color (Cecelia-wound Skin Appearance) Assessed No Abnormality -Temperature (Cecelia-wound Skin No Abnormality No Abnormality Appearance) (Pt Warm) (Pt Warm) -Tenderness on Palpation (Cecelia-wound No Skin Appearance) -Ulcer Cleansing Wound Cleanser Soap and Water -Foul Odor after Cleansing No No -Anesthetic Used 5% Lidocaine 4% Lidocaine Gel Solution 8. L heel -Combined with other wound No No -Current Size (cm) - Length 2.3 2.4 -Current Size (cm) - Width 3.1 3 -Current Size (cm) - Depth 0.4 0.4 -Total Square Cm 7.13 7.2 -Photo Taken No Yes -Epithelialization None Present -Tunneling No No -Undermining/Tunneling No No -Circular Undermining No No -Change in Wound Grade/Stage -Exudate Amt Medium Large Medium -Exudate Type Serosanguineous Serosanguineous Serosanguineous -Wound Margin Thickened Thickened & Distinct, Rolled Under Outline Attached -Granulation Amt Medium (34-66%) Large (67-100%) Medium (34-66%) -Granulation Quality [place] Red -Slough/Fibrin Yes Yes -Necrosis Amt Small (1-33%) Small (1-33%) Medium (34-66%) -Necrotic Tissue Type Adherent Slough Adherent Slough -Structure Exposed N/A N/A N/A -Texture (Cecelia-wound Skin Appearance) Callus Assessed Callus,Scarring -Moisture (Cecelia-wound Skin Appearance) Assessed Assessed, Dry/Scaly Maceration -Color (Cecelia-wound Skin Appearance) Assessed Assessed No Abnormality -Temperature (Cecelia-wound Skin No Abnormality No Abnormality No Abnormality Appearance) (Pt Warm) (Pt Warm) (Pt Warm) -Tenderness on Palpation (Cecelia-wound No No No Skin Appearance) -Ulcer Cleansing Wound Cleanser Wound Cleanser Soap and Water -Foul Odor after Cleansing No No No -Anesthetic Used 5% Lidocaine 4% Lidocaine Gel Solution -Wound Comment(s) Wound veil and steri-strips were already off skin when TCC was removed . Left Calf (cm) Left Ankle (cm) 04/27/22 05/06/22 08:13 09:36 Wound Center Nurse 1 9. R plantar -Combined with other wound No -Current Size (cm) - Length 1 -Current Size (cm) - Width 1 -Current Size (cm) - Depth 0.6 -Total Square Cm 1 -Photo Taken Yes -Epithelialization Small 1-33% -Tunneling No -Undermining/Tunneling No -Circular Undermining No -Exudate Amt Medium -Exudate Type Serosanguineous -Wound Margin Thickened & Rolled Under -Granulation Amt Large (67-100%) -Granulation Quality [place],Red -Slough/Fibrin Yes -Necrosis Amt Small (1-33%) -Necrotic Tissue Type Adherent Slough -Structure Exposed N/A -Texture (Cecelia-wound Skin Appearance) Callus -Moisture (Cecelia-wound Skin Appearance) Assessed -Color (Cecelia-wound Skin Appearance) Assessed -Temperature (Cecelia-wound Skin No Abnormality Appearance) (Pt Warm) -Tenderness on Palpation (Cecelia-wound No Skin Appearance) -Ulcer Cleansing Wound Cleanser -Foul Odor after Cleansing No -Anesthetic Used 5% Lidocaine Gel 8. L heel -Combined with other wound No No -Current Size (cm) - Length 2.4 2 -Current Size (cm) - Width 3.1 3 -Current Size (cm) - Depth 1 0.1 -Total Square Cm 7.44 6 -Photo Taken No -Epithelialization -Tunneling No No -Undermining/Tunneling No No -Circular Undermining No No -Change in Wound Grade/Stage No -Exudate Amt Large Large -Exudate Type Serosanguineous Serosanguineous -Wound Margin Thickened & Distinct, Rolled Under Outline Attached -Granulation Amt Medium (34-66%) Large (67-100%) -Granulation Quality [place],Red Pale,[place] -Slough/Fibrin Yes Yes -Necrosis Amt Small (1-33%) Small (1-33%) -Necrotic Tissue Type Adherent Slough Adherent Slough -Structure Exposed N/A N/A -Texture (Cecelia-wound Skin Appearance) Callus No Abnormality, Assessed -Moisture (Cecelia-wound Skin Appearance) Assessed No Abnormality, Assessed -Color (Cecelia-wound Skin Appearance) Assessed No Abnormality, Assessed -Temperature (Cecelia-wound Skin No Abnormality No Abnormality Appearance) (Pt Warm) (Pt Warm) -Tenderness on Palpation (Cecelia-wound No No Skin Appearance) -Ulcer Cleansing Wound Cleanser Soap and Water -Foul Odor after Cleansing No No -Anesthetic Used 5% Lidocaine 5% Lidocaine Gel Gel -Wound Comment(s) Left Calf (cm) 35 Left Ankle (cm) 22.5 WC - Nurse 2 - General Ulcer CM Notes Start: 04/13/22 08:15 Freq: Status: Active Protocol: Activity Type Activity Date Activity User E-sign Co-sign Detail Recorded Client Recorded Date Recorded By Document 04/13/22 08:59 QUENTIN [id number] 04/13/22 09:02 Document 04/20/22 08:31 STEPHANIE [id number] 04/20/22 08:38 Document 04/27/22 09:05 QUENTIN [id number] 04/27/22 09:08 Document 05/06/22 10:13 STEPHANIE [id number] 05/06/22 10:15 04/13/22 04/20/22 04/27/22 08:59 08:31 09:05 Wound Center Nurse 2 9. R plantar -Time 08:32 08:35 -Correct Patient Yes Yes Yes -Correct Side, Site, Position Yes Yes Yes -Correct Procedure Yes Yes Yes -Procedure Performed Yes Yes Yes -Type of Procedure Debridement Debridement Debridement -Clinical Debridement Subcutaneous Subcutaneous Subcutaneous -Tissue Removed Subcutaneous Subcutaneous Subcutaneous -Post Debridement (cm) - Length 1.1 1.2 1.0 -Post Debridement (cm) - Width 0.9 0.8 1.0 -Post Debridement (cm) - Depth 0.2 0.3 0.6 -Total Square (Post) (cm) 0.99 0.96 1.00 -Area of Debridement (cm) - Length 1.1 1.2 1.0 -Area of Debridement (cm) - Width 0.9 0.8 1.0 -Total Square (Area) (cm) 0.99 0.96 1.00 -Tunneling No No No -Undermining/Tunneling No No No -Circular Undermining No No No -Wound/Ulcer Outcome Not Healed Not Healed Not Healed -Ulcer Cleansing Rinsed/ Rinsed/ Rinsed/ Irrigated with Irrigated with Irrigated with Saline Saline Saline -Foul Odor after Cleansing No No No -Bioengineered Tissue No No No -Bleeding Controlled with Pressure Pressure -Treatment Response Procedure Procedure Procedure Tolerated Well Tolerated Well Tolerated Well -Offloading Yes -Type of Offloading Surgical Shoe -Debridement - Subq, 1st 20sq cm Yes Yes Yes 8. L heel -Time 08:35 08:35 -Correct Patient Yes Yes Yes -Correct Side, Site, Position Yes Yes Yes -Correct Procedure Yes Yes Yes -Procedure Performed Yes Yes Yes -Type of Procedure Debridement Debridement Debridement -Clinical Debridement Subcutaneous Subcutaneous Subcutaneous -Tissue Removed Subcutaneous Subcutaneous Subcutaneous -Post Debridement (cm) - Length 2.3 2.5 2.4 -Post Debridement (cm) - Width 3.1 3 3.1 -Post Debridement (cm) - Depth 0.4 0.4 1.0 -Total Square (Post) (cm) 7.13 7.5 7.44 -Area of Debridement (cm) - Length 2.3 2.5 2.4 -Area of Debridement (cm) - Width 3.1 3.0 3.1 -Total Square (Area) (cm) 7.13 7.50 7.44 -Tunneling No No No -Undermining/Tunneling No No No -Circular Undermining No No No -Wound/Ulcer Outcome Not Healed Not Healed Not Healed -Ulcer Cleansing Rinsed/ Rinsed/ Rinsed/ Irrigated with Irrigated with Irrigated with Saline Saline Saline -Foul Odor after Cleansing No No No -Bioengineered Tissue Yes Yes Yes -Type of Bioengineered Tissue Epifix Mesh Epifix Mesh Epifix -Expiration Date 12/07/26 06/09/26 01/07/27 -Product Lot Number [id number] -Percent Used 100 100 100 -Lot number of Saline Used [id number] -Bleeding Controlled with Pressure Pressure Pressure -Treatment Response Procedure Procedure Procedure Tolerated Well Tolerated Well Tolerated Well -Offloading Yes Yes -Type of Offloading Total Contact Total Contact Total Contact Cast (TCC) - Cast (TCC) - Cast (TCC) - Left ($) Left ($) Left ($) -Debridement - Subq, 1st 20sq cm No No No -Apply Skin Sub - 1st 25 sq cm - Feet 1 1 1 -Epifix (per sq cm) 4 -Epifix Mesh (per sq cm) 11 11 Pain Scale: 0-10 Numeric Is Patient Pain Free? Yes Yes Yes 05/06/22 10:13 Wound Center Nurse 2 9. R plantar -Time 10:13 -Correct Patient Yes -Correct Side, Site, Position Yes -Correct Procedure Yes -Procedure Performed Yes -Type of Procedure Debridement -Clinical Debridement Subcutaneous -Tissue Removed Subcutaneous -Post Debridement (cm) - Length 1.5 -Post Debridement (cm) - Width 1.2 -Post Debridement (cm) - Depth 0.4 -Total Square (Post) (cm) 1.80 -Area of Debridement (cm) - Length 1.5 -Area of Debridement (cm) - Width 1.2 -Total Square (Area) (cm) 1.80 -Tunneling No -Undermining/Tunneling No -Circular Undermining No -Wound/Ulcer Outcome Not Healed -Ulcer Cleansing Rinsed/ Irrigated with Saline -Foul Odor after Cleansing No -Bioengineered Tissue No -Bleeding Controlled with Pressure -Treatment Response Procedure Tolerated Well -Offloading Yes -Type of Offloading Surgical Shoe -Debridement - Subq, 1st 20sq cm Yes 8. L heel -Time 10:13 -Correct Patient Yes -Correct Side, Site, Position Yes -Correct Procedure Yes -Procedure Performed Yes -Type of Procedure Debridement -Clinical Debridement Subcutaneous -Tissue Removed Subcutaneous -Post Debridement (cm) - Length 2.3 -Post Debridement (cm) - Width 3.2 -Post Debridement (cm) - Depth 0.7 -Total Square (Post) (cm) 7.36 -Area of Debridement (cm) - Length 2.3 -Area of Debridement (cm) - Width 3.2 -Total Square (Area) (cm) 7.36 -Tunneling No -Undermining/Tunneling -Circular Undermining No -Wound/Ulcer Outcome Not Healed -Ulcer Cleansing Rinsed/ Irrigated with Saline -Foul Odor after Cleansing No -Bioengineered Tissue Yes -Type of Bioengineered Tissue Epifix -Expiration Date 01/07/27 -Product Lot Number [id number] -Percent Used 100 -Lot number of Saline Used [id number] -Bleeding Controlled with Pressure -Treatment Response Procedure Tolerated Well -Offloading Yes -Type of Offloading Total Contact Cast (TCC) - Left ($) -Debridement - Subq, 1st 20sq cm No -Apply Skin Sub - 1st 25 sq cm - Feet 1 -Epifix (per sq cm) 4 -Epifix Mesh (per sq cm) Pain Scale: 0-10 Numeric Is Patient Pain Free? Yes WC - Nurse 3 - General Ulcer D/C NN Start: 04/13/22 08:15 Freq: Status: Active Protocol: Activity Type Activity Date Activity User E-sign Co-sign Detail Recorded Client Recorded Date Recorded By Document 04/13/22 09:03 [facility] [id number] 04/13/22 09:04 [facility] Document 04/18/22 16:14 [id number] 04/18/22 16:19 Document 04/27/22 08:49 DL [id number] 04/27/22 08:53 DL Document 05/06/22 10:15 [id number] 05/06/22 10:16 04/13/22 04/18/22 04/27/22 09:03 16:14 08:49 Wound Care Nurse 3 9. R plantar -Ulcer Cleansing Rinsed/ Rinsed/ Irrigated with Irrigated with Saline Saline -Foul Odor after Cleansing No No -Primary Dressing Applied Promogran Promogran Michael Matter Michael Matter -Primary Dressing Covered/Secured with Dry Gauze, Dry Gauze & Secured with Roll Gauze, Tape Secured with Tape -Promogran Michael Matter 1 1 8. L heel -Ulcer Cleansing Soap and Water -Foul Odor after Cleansing No No -Primary Dressing Applied Mepilex Border Promogran Optilok 6.5x10 Michael Matter -Other Dressing epifix Epifix/ superabsorber -Primary Dressing Covered/Secured with Dry Gauze & Roll Gauze, Secured with Tape -Other Covering tcc undercast TCC casting size 3 system #3 -Mepilex Border 1 -Optilok 6.5x10 1 -Promogran Michael Matter 1 Left -Compression Wrap Kiran Wrap Treatment Response Procedure Procedure Tolerated Well Tolerated Well Pain Scale: 0-10 Numeric Is Patient Pain Free? Yes Yes Yes WC - Visit Discharge Discharge Condition Stable Stable Stable Ambulatory Status Ambulatory Ambulatory Ambulatory Transportation Private Auto Private Auto Private Auto Medication Reconcilliation completed & Yes provided to patient/care provider Clinical Summary of Care Provided Yes Notes: Patient left with michael to ulcer and nurse 's hat gauze applied. Patient ok to apply 0.25% Dakin's gauze to ulcer Tues am and Weds am until seen Weds by Dr Gutierrez to assist with drainage and odor. patient verbalizes understanding. 05/06/22 10:15 Wound Care Nurse 3 9. R plantar -Ulcer Cleansing Rinsed/ Irrigated with Saline -Foul Odor after Cleansing No -Primary Dressing Applied Promogran Michael Matter -Primary Dressing Covered/Secured with Dry Gauze, Secured with Tape -Promogran Michael Matter 1 8. L heel -Ulcer Cleansing Rinsed/ Irrigated with Saline -Foul Odor after Cleansing No -Primary Dressing Applied Optilok 6.5x10 -Other Dressing -Primary Dressing Covered/Secured with -Other Covering -Mepilex Border -Optilok 6.5x10 1 -Promogran Michael Matter Left -Compression Wrap Treatment Response Pain Scale: 0-10 Numeric Is Patient Pain Free? Yes WC - Visit Discharge Discharge Condition Stable Ambulatory Status Ambulatory Transportation Private Auto Medication Reconcilliation completed & Yes provided to patient/care provider Clinical Summary of Care Provided Yes Notes: Additional Wound Wound debrided: plantar ulcer medial to 1st metatarsal Laterality: Right Type of Debridement: Excisional debridement Anesthesia Used: 5% Lidocaine Gel Depth: Down to and including healthy tissue and in the subcutaneous layer Percentage of wound debrided: 100 Instrument Used: 3mm curette Tissue Removed: Non viable tissue and slough Severity: Fat Layer Exposed Amount of bleeding with debridement: Mild Bleeding Controlled with: Pressure and Compression and gauze Patient tolerated procedure: Patient tolerated procedure well Assessment/Plan Assessment/Plan (1) Ulcer of right foot with fat layer exposed: CODE(S): L97.512 - Non-pressure chronic ulcer of other part of right foot with fat layer exposed (2) Lupus (systemic lupus erythematosus): CODE(S): M32.9 - Systemic lupus erythematosus, unspecified (3) Ulcer of left foot with fat layer exposed: CODE(S): L97.522 - Non-pressure chronic ulcer of other part of left foot with fat layer exposed (4) MRSA (methicillin resistant staph aureus) culture positive: CODE(S): Z22.322 - Carrier or suspected carrier of Methicillin resistant Staphylococcus aureus (5) Cellulitis of left lower limb: CODE(S): L03.116 - Cellulitis of left lower limb (6) Delayed wound healing: CODE(S): T14.8XXD - Other injury of unspecified body region, subsequent encounter (7) Fracture of great toe, right, closed: CODE(S): S92.401A - Displaced unspecified fracture of right great toe, initial encounter for closed fracture PLAN: Plan Today is a courtesy visit. Subcutaneous debridement performed as previously documented. Wound care - Right foot ulcer Michael topped with gauze daily after washing with soap and water. She is wearing a post surgical shoe. To the left heel, Advance wound healing product, Epifix #4 placed today, 100% of product used, topped with wound veil which was secured with steri strips and a super absorber. She tolerated this well. To keep clean, dry, and intact until follow-up next week. offloading: To maintain strict nonweightbearing status with the knee roller, left with total contact cast and heel weightbear right in surgical shoe. Total contact cast was applied today according to standard protocol (left) in a well- padded in neutral position after verbal consent was obtained. She tolerated this well and will keep this clean, dry, and intact. Verbal consent was obtained prior to application and she will keep this clean and dry and intact as well. Follow up with Dr. Gutierrez next week. She is to call or come in sooner if she develops any concerns.
== END 2022-05-08 23:59 | disposition home or self-care (01) ==
LOC: WC 09:15
PROVIDERS: PCP Family Medicine; Referring Provider Podiatrist; Visit Provider Podiatrist
DX: L97.512 Non-pressure chronic ulcer of other part of right foot with fat layer exposed (principal); L97.422 Non-pressure chronic ulcer of left heel and midfoot with fat layer exposed; M32.9 Systemic lupus erythematosus, unspecified; L03.116 Cellulitis of left lower limb; X58.XXXA Exposure to other specified factors, initial encounter; Z22.322 Carrier or suspected carrier of Methicillin resistant Staphylococcus aureus; S92.401A Displaced unspecified fracture of right great toe, initial encounter for closed fracture; E78.5 Hyperlipidemia, unspecified; K58.9 Irritable bowel syndrome, unspecified; G47.33 Obstructive sleep apnea (adult) (pediatric)
CPT/HCPCS: 11042; 15275; 29445; 99213; Q4186; G0463

== ENCOUNTER 2022-06-08 08:30 | Outpatient (RCR) | payer MEDICARE, BC, SELFPAY ==
[2022-05-09 00:32] VITALS: BP 137/76; PULSE 116; RESP 18; TEMP 36.2; BMI 37.2
[2022-05-11 08:21] VITALS: BP 136/84; PULSE 103; RESP 12; TEMP 35.8; BMI 37.2
--- NOTE | 2022-05-11 10:07 | PCM.WC.PN ---
History of Present Illness Date of Service: 05/11/22 Chief Complaint: Left heel ulcer right foot ulcer History of Wound: This pleasant 56-year-old female with significant past medical history of lupus, history of panic attack, depression, history of delayed healing, hyperlipidemia, irritable bowel syndrome, memory loss, restless leg syndrome, and obstructive sleep apnea is here for follow-up of left heel ulcer. She denies fever, chill, nausea, vomiting. She is ready for total contact cast application again today. She started wearing a different offloading shoe to the right foot and this was previously designated for her other foot and has old offloading liners in it that do not offload her ulcer. She missed her appointment last week because she went out of town and she was seen by another provider to get her cast and epi fix updated. Progress of Wound: Improving left heel Stable right foot Objective Data Objective Data Vital Signs: Vital Signs Temp Pulse Resp BP 96.4 F L 103 H 12 136/84 H 05/11/22 08:21 05/11/22 08:21 05/11/22 08:21 05/11/22 08:21 Weight: 111.13 kg Body Mass Index (BMI) 37.2 Physical Exam Const alert and oriented x3 Extremity Extremity Narrative: No calf tenderness Diminished pulses Muscle wasting noted General Extremity: edema and no tenderness to palpation of joints or extremities; Negative for cyanosis Skin Skin Narrative: no purulence, no streaking, no odor, no infection granular base ulcer with resolved peripheral maceration, necrosis or deep tissue exposure to left heel. healthy granular base plantar medial right foot sub 1st metatarsal head region no bogginess or fluctuance on palpation bilateral. General Skin Exam: Negative for erythema Neuro Neuro Narrative: lack of normal epicritic sensation via light touch is consistent with neuropathy status Psych cooperative and affect normal Debridement Note Debridement Note Wound debrided: heel Laterality: Left Type of Debridement: Excisional debridement Anesthesia Used: 5% Lidocaine Gel Depth: Down to and including healthy tissue and in the subcutaneous layer Percentage of wound debrided: 100 Tissue Removed: Non viable tissue and slough Severity: Fat Layer Exposed Amount of bleeding with debridement: Mild Bleeding Controlled with: Pressure and Compression and gauze Patient tolerated procedure: Patient tolerated procedure well Post-Debridement Measurements and Additional Note: Post-Debridement Measurements/Treatment WC - Nurse 1 - General Ulcer Assessment Start: 05/11/22 08:21 Freq: Status: Active Protocol: [email or web address] Activity Type Activity Date Activity User E-sign Co-sign Detail Recorded Client Recorded Date Recorded By Document 05/11/22 08:21 [id number] 05/11/22 08:28 RB 05/11/22 08:21 - Today's Visit Information Type of service Follow-up Visit (Physician/[facility] ) Arrival Mode Ambulatory Transfer Assistance None Patient Identification Verified (Name & Yes ) Patient Requires Transmission-Based No Precautions Height and Weight Body Mass Index (BMI) 37.2 BMI Classification Obese Vital Signs Temperature (97.8 F-99.1 F) 96.4 F L Temperature Source Temporal Pulse Rate (60-100) 103 H Pulse Location Monitor Respiratory Rate (12-18) 12 Respiratory rate source Observation Blood Pressure (90/60-120/80) 136/84 H Blood Pressure Mean (mm Hg) 101 Source Monitor Position Sitting Blood Pressure Location Left Arm History Since Last Visit- (Skip if this is Patient's initial visit) Have you changed medications since your No last visit? Any new allergies or adverse reactions No Had a fall/change in ADL's that may No increase risk of falls Signs or symptoms of abuse and/or No neglect since last visit Have you been in the hospital since your No last visit? Has dressing in place as prescribed Yes Has compression in place as prescribed No Has offloadiing in place as prescribed Yes Experienced any changes in pain level or No management Left Footwear Total Contact Cast Right Footwear Surgical Shoe with pressure relief insole Pain Scale: 0-10 Numeric Is Patient Pain Free? Yes - Nurse 1 - General Ulcer Measurement Start: 05/11/22 08:21 Freq: Status: Active Protocol: Activity Type Activity Date Activity User E-sign Co-sign Detail Recorded Client Recorded Date Recorded By Document 05/11/22 08:21 [id number] 05/11/22 08:28 RB 05/11/22 08:21 Wound Center Nurse 1 9. R plantar -Combined with other wound No -Current Size (cm) - Length 1.2 -Current Size (cm) - Width 0.8 -Current Size (cm) - Depth 0.4 -Total Square Cm 0.96 -Photo Taken Yes -Tunneling No -Undermining/Tunneling No -Circular Undermining No -Exudate Amt Medium -Exudate Type Serosanguineous -Wound Margin Distinct, Outline Attached -Granulation Amt Medium (34-66%) -Slough/Fibrin Yes -Necrosis Amt Medium (34-66%) -Necrotic Tissue Type Adherent Slough -Structure Exposed N/A -Texture (Cecelia-wound Skin Appearance) Callus -Moisture (Cecelia-wound Skin Appearance) Assessed -Temperature (Cecelia-wound Skin No Abnormality Appearance) (Pt Warm) -Tenderness on Palpation (Cecelia-wound No Skin Appearance) -Ulcer Cleansing Wound Cleanser -Foul Odor after Cleansing No -Anesthetic Used 5% Lidocaine Gel 8. L heel -Combined with other wound No -Current Size (cm) - Length 2.3 -Current Size (cm) - Width 2.9 -Current Size (cm) - Depth 0.7 -Total Square Cm 6.67 -Photo Taken Yes -Tunneling No -Undermining/Tunneling No -Circular Undermining No -Exudate Amt Medium -Exudate Type Serosanguineous -Wound Margin Thickened -Granulation Amt Medium (34-66%) -Granulation Quality Ronceverte -Slough/Fibrin Yes -Necrosis Amt Medium (34-66%) -Necrotic Tissue Type Adherent Slough -Structure Exposed N/A -Texture (Cecelia-wound Skin Appearance) Callus -Moisture (Cecelia-wound Skin Appearance) Assessed -Color (Cecelia-wound Skin Appearance) Assessed -Temperature (Cecelia-wound Skin No Abnormality Appearance) (Pt Warm) -Tenderness on Palpation (Cecelia-wound No Skin Appearance) -Ulcer Cleansing Wound Cleanser -Foul Odor after Cleansing No -Anesthetic Used 5% Lidocaine Gel WC - Nurse 2 - General Ulcer CM Notes Start: 05/11/22 08:21 Freq: Status: Active Protocol: Activity Type Activity Date Activity User E-sign Co-sign Detail Recorded Client Recorded Date Recorded By Document 05/11/22 08:37 STEPHANIE [id number] 05/11/22 08:48 STEPHANIE 05/11/22 08:37 Wound Center Nurse 2 9. R plantar -Time 08:38 -Correct Side, Site, Position Yes -Correct Procedure Yes -Procedure Performed Yes -Type of Procedure Debridement -Clinical Debridement Subcutaneous -Tissue Removed Subcutaneous -Post Debridement (cm) - Length 1.3 -Post Debridement (cm) - Width 0.8 -Post Debridement (cm) - Depth 0.3 -Total Square (Post) (cm) 1.04 -Area of Debridement (cm) - Length 1.3 -Area of Debridement (cm) - Width 0.8 -Total Square (Area) (cm) 1.04 -Tunneling No -Undermining/Tunneling No -Circular Undermining No -Wound/Ulcer Outcome Not Healed -Ulcer Cleansing Rinsed/ Irrigated with Saline -Foul Odor after Cleansing No -Bioengineered Tissue No -Bleeding Controlled with Pressure -Treatment Response Procedure Tolerated Well -Offloading Yes -Type of Offloading Surgical Shoe -Debridement - Subq, 1st 20sq cm Yes 8. L heel -Time 08:38 -Correct Patient Yes -Correct Side, Site, Position Yes -Correct Procedure Yes -Procedure Performed Yes -Type of Procedure Debridement -Clinical Debridement Subcutaneous -Tissue Removed Subcutaneous -Post Debridement (cm) - Length 3 -Post Debridement (cm) - Width 2 -Post Debridement (cm) - Depth 0.3 -Total Square (Post) (cm) 6 -Area of Debridement (cm) - Length 3 -Area of Debridement (cm) - Width 2 -Total Square (Area) (cm) 6 -Tunneling No -Undermining/Tunneling No -Circular Undermining No -Wound/Ulcer Outcome Not Healed -Ulcer Cleansing Rinsed/ Irrigated with Saline -Foul Odor after Cleansing No -Bioengineered Tissue Yes -Type of Bioengineered Tissue Epifix Mesh -Expiration Date 12/07/26 -Product Lot Number [id number] -Percent Used 100 -Lot number of Saline Used [id number] -Bleeding Controlled with Pressure -Treatment Response Procedure Tolerated Well -Offloading Yes -Type of Offloading Total Contact Cast (TCC) - Left ($) -Debridement - Subq, 1st 20sq cm No -Apply Skin Sub - 1st 25 sq cm - Feet 1 -Epifix Mesh (per sq cm) 11 Pain Scale: 0-10 Numeric Is Patient Pain Free? Yes - Nurse 3 - General Ulcer D/C NN Start: 05/11/22 08:21 Freq: Status: Active Protocol: Activity Type Activity Date Activity User E-sign Co-sign Detail Recorded Client Recorded Date Recorded By Document 05/11/22 08:49 [facility] [id number] 05/11/22 08:52 [facility] 05/11/22 08:49 Wound Care Nurse 3 9. R plantar -Primary Dressing Applied Aquacel Extra -Other Dressing EPIMESH -Primary Dressing Covered/Secured with Dry Gauze & Roll Gauze, Secured with Tape -Other Covering DRSG PER [address] [employer] ENGINEERING TECHNICIAN -Aquacel Extra 1 8. L heel -Primary Dressing Applied Aquacel Extra -Other Dressing EPIMESH, TOPPED W/ AQUACEL EXTRA -Primary Dressing Covered/Secured with Dry Gauze -Other Covering TCC UNDERCAST SIZE 3, DRSGS PER [address] ENGINEERING TECHNICIAN -Aquacel Extra 0 Treatment Response Procedure Tolerated Well Pain Scale: 0-10 Numeric Is Patient Pain Free? Yes WC - Visit Discharge Discharge Condition Stable Ambulatory Status Ambulatory Transportation Private Auto Additional Wound Wound debrided: plantar ulcer medial to 1st metatarsal Laterality: Right Type of Debridement: Excisional debridement Anesthesia Used: 5% Lidocaine Gel Depth: Down to and including healthy tissue and in the subcutaneous layer Percentage of wound debrided: 100 Instrument Used: 3mm curette Tissue Removed: Non viable tissue and slough Severity: Fat Layer Exposed Amount of bleeding with debridement: Mild Bleeding Controlled with: Pressure and Compression and gauze Patient tolerated procedure: Patient tolerated procedure well Assessment/Plan Assessment/Plan (1) Ulcer of right foot with fat layer exposed: CODE(S): L97.512 - Non-pressure chronic ulcer of other part of right foot with fat layer exposed (2) Lupus (systemic lupus erythematosus): CODE(S): M32.9 - Systemic lupus erythematosus, unspecified (3) Ulcer of left foot with fat layer exposed: CODE(S): L97.522 - Non-pressure chronic ulcer of other part of left foot with fat layer exposed (4) MRSA (methicillin resistant staph aureus) culture positive: CODE(S): Z22.322 - Carrier or suspected carrier of Methicillin resistant Staphylococcus aureus (5) Cellulitis of left lower limb: CODE(S): L03.116 - Cellulitis of left lower limb (6) Delayed wound healing: CODE(S): T14.8XXD - Other injury of unspecified body region, subsequent encounter (7) Fracture of great toe, right, closed: CODE(S): S92.401A - Displaced unspecified fracture of right great toe, initial encounter for closed fracture PLAN: Plan I reviewed and discussed her case.? Subcutaneous excisional debridement was performed as noted in the clinical panel bilateral. Diagnostic data was also reviewed. Her healed toes on left foot noted The following recommendations were made. Change dressing daily with Neida to the right few daily.? Advance wound healing product: I recommend application of epi fix to optimize healing.? The benefits and indications were reviewed and also expected management use.? Prior authorization was obtained.? This is medically necessary for limb salvage for the left heel ulcer.? She is at risk for amputation and limb loss and further infections.? Verbal consent was obtained and this was applied according standard protocol to the left heel.? This was further secured with a wound veil and Steri-Strips.? 100% of the product was utilized.? She tolerated this well.? To keep clean, dry, and intact until follow-up next week. offloading: To maintain strict nonweightbearing status with the knee roller, left with total contact cast and heel weightbear right in surgical shoe.? Total contact cast was applied today according to standard protocol (left) in a well-padded in neutral position after verbal consent was obtained. She tolerated this well and will keep this clean, dry, and intact.? Verbal consent was obtained prior to application and she will keep this clean and dry and intact as well. Her right foot surgical shoe was evaluated and I updated her offloading dual density Plastizote liners to take pressure off of her subfirst metatarsal head site. She was still encouraged not to do routine walking with this device to optimize healing. Infection:? 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 Concern is deeper infection involvement due to bulbous toe appearance including potential osteomyelitis.? She has been taking doxycycline with some mild improvement however this is in regards to reduced erythema.? It is noted she has continued communication with deep structures including the bone and there was bone that was debrided today from the left second toe.? Infectious disease specialist, Dr. Reyes also saw and evaluated her today and input is greatly appreciated.? She was advised to continue doxycycline and Augmentin will also be added to her regimen.? She understands amputation will be recommended if she fails oral antibiotic treatment course of at least 6 weeks. ID recs appreciated.? Improvement noted. nutrition: She was advised to maintain a balanced whole food diet with adequate protein and nutrients to optimize healing.? To resume Yosvany supplementation use. ? Host factors. Neuropathy complicates her case. To monitor close due to inability to sensate as normal.? She was also advised to avoid prednisone use and will also hold the Plaquenil at this time unless she has an intense flareup.? This was previously reviewed verbally with Dr. Pratt.? ? She also has a calcaneus gait with prior surgical intervention including a tendon transfer which is compromised with a fall in the early postoperative setting.? We previously discussed options to surgically alleviate her calcaneus gait including retightening the Achilles tendon or other posterior leg muscles.? Updated vascular (arterial) and doppler with reflux (venous) was ordered to assess for any abnormalities.? The arterial studies were reviewed and no arterial disease or occlusions were identified. ? Venous insufficiency work-up is still pending. Diagnostic data: Her bilateral foot xrays (three views) were reviewed from 04-06-2022 without soft tissue emphysema, osseous destruction or foreign body.? Chip fracture to medial proximal phalanx base unchanged noted to the right foot without additional osseous destruction.? T Labs reviewed from 02/15/22 with wbc 9.4, no renal dysfunction or other gross abnormalities. Note: [employer] speech recognition customer project manager software was used to create portions of this document. Sound-alike and misspelled words, as well as other customer project manager errors may be contained in the documentation. ?
[2022-05-16 09:55] VITALS: BP 116/74; TEMP 36.2; BMI 37.2
--- NOTE | 2022-05-16 11:22 | PN.PCM_ITS ---
History of Present Illness Date of Service: 05/16/22 Chief Complaint: Left heel ulcer right foot ulcer History of Wound: This pleasant 56-year-old female with significant past medical history of lupus, history of panic attack, depression, history of delayed healing, hyperlipidemia, irritable bowel syndrome, memory loss, restless leg syndrome, and obstructive sleep apnea is here for follow-up of left heel ulcer. She denies fever, chill, nausea, vomiting. She is ready for total contact cast application again today. She started wearing a different offloading shoe to the right foot and this was previously designated for her other foot and has old offloading liners in it that do not offload her ulcer. She missed her appointment last week because she went out of town and she was seen by another provider to get her cast and epi fix updated. Progress of Wound: Left heal and right foot ulcers are stable. She comes in today to have her TCC changed. Objective Data Objective Data Vital Signs: Vital Signs Temp Pulse Resp BP 97.2 F L 103 H 12 116/74 05/16/22 09:55 05/11/22 08:21 05/11/22 08:21 05/16/22 09:55 Weight: 245 lb Body Mass Index (BMI) 37.2 Charges/Coding Addendum Addendum: 29329 - placement of total contact cast. Visit Charges Office Visits / Consults: [id number] OV L3 Est Physical Exam Const alert and oriented x3 General Appearance: cooperative HEENT normocephalic Resp normal respiratory effort Cardio regular rate Extremity normal capillary refill and no calf tenderness Extremity Narrative: Bilateral pedal pulses palpable but diminished. +1 edema bilateral lower extremities. Skin color pink, with no pain or tenderness with palpation. Skin Wound Narrative: Left heel ulcer is beefy pink granulation tissue. No purulent drainage, no odor, no signs of infection. Right plantar ulcer, medial to 1st metatarsal head base of ulcer is beefy pink granulation tissue. She has an area on the lateral plantar surface, like a skin tear that occurred when removing the tape. She has a red area between her left 2nd and 3rd toe that we will watch closely. I made sure to dry between her toes well before the TCC was placed. Neuro Speech: speech normal Psych affect normal Debridement Note Debridement Note No debridement was completed: No debridement was completed today Post-Debridement Measurements and Additional Note: Post-Debridement Measurements/Treatment WC - Nurse 1 - General Ulcer Assessment Start: 05/11/22 08:21 Freq: Status: Active Protocol: OLGA Activity Type Activity Date Activity User E-sign Co-sign Detail Recorded Client Recorded Date Recorded By Document 05/11/22 08:21 RB [id number] 05/11/22 08:28 RB Document 05/16/22 09:55 DL [id number] 05/16/22 10:06 DL 05/11/22 05/16/22 08:21 09:55 WC - Today's Visit Information Type of service Follow-up Visit Follow-up Visit (Physician/HEELER MACHINE (Physician/HEELER MACHINE ) ) Arrival Mode Ambulatory Ambulatory Transfer Assistance None Patient Identification Verified (Name & Yes Yes ) Patient Requires Transmission-Based No Precautions Height and Weight Body Mass Index (BMI) 37.2 37.2 BMI Classification Obese Obese Vital Signs Temperature (97.8 F-99.1 F) 96.4 F L 97.2 F L Temperature Source Temporal Temporal Pulse Rate (60-100) 103 H Pulse Location Monitor Monitor Respiratory Rate (12-18) 12 Respiratory rate source Observation Blood Pressure (90/60-120/80) 136/84 H 116/74 Blood Pressure Mean (mm Hg) 101 88 Source Monitor Monitor Position Sitting Sitting Blood Pressure Location Left Arm Left Arm History Since Last Visit- (Skip if this is Patient's initial visit) Have you changed medications since your No No last visit? Any new allergies or adverse reactions No No Had a fall/change in ADL's that may No No increase risk of falls Signs or symptoms of abuse and/or No No neglect since last visit Have you been in the hospital since your No No last visit? Has dressing in place as prescribed Yes Yes Has compression in place as prescribed No N/A Has offloadiing in place as prescribed Yes Yes Experienced any changes in pain level or No No management Left Footwear Total Contact Removable Cast Cast Walker/Walking Boot Right Footwear Surgical Shoe Regular Shoe with pressure relief insole Pain Scale: 0-10 Numeric Is Patient Pain Free? Yes Yes - Nurse 1 - General Ulcer Measurement Start: 05/11/22 08:21 Freq: Status: Active Protocol: Activity Type Activity Date Activity User E-sign Co-sign Detail Recorded Client Recorded Date Recorded By Document 05/11/22 08:21 RB [id number] 05/11/22 08:28 RB Document 05/16/22 09:55 DL [id number] 05/16/22 10:06 DL 05/11/22 05/16/22 08:21 09:55 Wound Center Nurse 1 9. R plantar -Combined with other wound No -Current Size (cm) - Length 1.2 0.6 -Current Size (cm) - Width 0.8 0.9 -Current Size (cm) - Depth 0.4 0.3 -Total Square Cm 0.96 0.54 -Photo Taken Yes -Tunneling No -Undermining/Tunneling No -Circular Undermining No -Exudate Amt Medium Medium -Exudate Type Serosanguineous Serosanguineous -Wound Margin Distinct, Distinct, Outline Outline Attached Attached -Granulation Amt Medium (34-66%) Large (67-100%) -Granulation Quality [place] -Slough/Fibrin Yes -Necrosis Amt Medium (34-66%) None Present (0 %) -Necrotic Tissue Type Adherent Slough -Structure Exposed N/A -Texture (Cecelia-wound Skin Appearance) Callus Assessed, Scarring -Moisture (Cecelia-wound Skin Appearance) Assessed No Abnormality, Assessed -Color (Cecelia-wound Skin Appearance) No Abnormality, Assessed -Temperature (Cecelia-wound Skin No Abnormality No Abnormality Appearance) (Pt Warm) (Pt Warm) -Tenderness on Palpation (Cecelia-wound No No Skin Appearance) -Ulcer Cleansing Wound Cleanser Soap and Water -Foul Odor after Cleansing No No -Anesthetic Used 5% Lidocaine 5% Lidocaine Gel Gel 8. L heel -Combined with other wound No -Current Size (cm) - Length 2.3 1.8 -Current Size (cm) - Width 2.9 2.8 -Current Size (cm) - Depth 0.7 0.6 -Total Square Cm 6.67 5.04 -Photo Taken Yes -Tunneling No -Undermining/Tunneling No -Circular Undermining No -Exudate Amt Medium Large -Exudate Type Serosanguineous Serosanguineous -Wound Margin Thickened Distinct, Outline Attached -Granulation Amt Medium (34-66%) Large (67-100%) -Granulation Quality [place] Red -Slough/Fibrin Yes -Necrosis Amt Medium (34-66%) None Present (0 %) -Necrotic Tissue Type Adherent Slough -Structure Exposed N/A -Texture (Cecelia-wound Skin Appearance) Callus Assessed, Scarring -Moisture (Cecelia-wound Skin Appearance) Assessed Assessed, Maceration -Color (Cecelia-wound Skin Appearance) Assessed No Abnormality, Assessed -Temperature (Cecelia-wound Skin No Abnormality No Abnormality Appearance) (Pt Warm) (Pt Warm) -Tenderness on Palpation (Cecelia-wound No No Skin Appearance) -Ulcer Cleansing Wound Cleanser Soap and Water -Foul Odor after Cleansing No No -Anesthetic Used 5% Lidocaine 5% Lidocaine Gel Gel WC - Nurse 2 - General Ulcer CM Notes Start: 05/11/22 08:21 Freq: Status: Active Protocol: Activity Type Activity Date Activity User E-sign Co-sign Detail Recorded Client Recorded Date Recorded By Document 05/11/22 08:37 STEPHANIE [id number] 05/11/22 08:48 JF Edit Result 05/11/22 08:37 JF (1) [id number] 05/12/22 16:15 PL (1) 8. L heel - Offloading Yes => - Type of Offloading Total Contact Cast => (TCC) - Left ($) => 05/11/22 08:37 Wound Center Nurse 2 9. R plantar -Time 08:38 -Correct Side, Site, Position Yes -Correct Procedure Yes -Procedure Performed Yes -Type of Procedure Debridement -Clinical Debridement Subcutaneous -Tissue Removed Subcutaneous -Post Debridement (cm) - Length 1.3 -Post Debridement (cm) - Width 0.8 -Post Debridement (cm) - Depth 0.3 -Total Square (Post) (cm) 1.04 -Area of Debridement (cm) - Length 1.3 -Area of Debridement (cm) - Width 0.8 -Total Square (Area) (cm) 1.04 -Tunneling No -Undermining/Tunneling No -Circular Undermining No -Wound/Ulcer Outcome Not Healed -Ulcer Cleansing Rinsed/ Irrigated with Saline -Foul Odor after Cleansing No -Bioengineered Tissue No -Bleeding Controlled with Pressure -Treatment Response Procedure Tolerated Well -Offloading Yes -Type of Offloading Surgical Shoe -Debridement - Subq, 1st 20sq cm Yes 8. L heel -Time 08:38 -Correct Patient Yes -Correct Side, Site, Position Yes -Correct Procedure Yes -Procedure Performed Yes -Type of Procedure Debridement -Clinical Debridement Subcutaneous -Tissue Removed Subcutaneous -Post Debridement (cm) - Length 3 -Post Debridement (cm) - Width 2 -Post Debridement (cm) - Depth 0.3 -Total Square (Post) (cm) 6 -Area of Debridement (cm) - Length 3 -Area of Debridement (cm) - Width 2 -Total Square (Area) (cm) 6 -Tunneling No -Undermining/Tunneling No -Circular Undermining No -Wound/Ulcer Outcome Not Healed -Ulcer Cleansing Rinsed/ Irrigated with Saline -Foul Odor after Cleansing No -Bioengineered Tissue Yes -Type of Bioengineered Tissue Epifix Mesh -Expiration Date 12/07/26 -Product Lot Number [id number] -Percent Used 100 -Lot number of Saline Used [id number] -Bleeding Controlled with Pressure -Treatment Response Procedure Tolerated Well -Debridement - Subq, 1st 20sq cm No -Apply Skin Sub - 1st 25 sq cm - Feet 1 -Epifix Mesh (per sq cm) 11 Pain Scale: 0-10 Numeric Is Patient Pain Free? Yes WC - Nurse 3 - General Ulcer D/C NN Start: 05/11/22 08:21 Freq: Status: Active Protocol: Activity Type Activity Date Activity User E-sign Co-sign Detail Recorded Client Recorded Date Recorded By Document 05/11/22 08:49 [facility] [id number] 05/11/22 08:52 [facility] Document 05/16/22 10:58 DL [id number] 05/16/22 11:00 DL 05/11/22 05/16/22 08:49 10:58 Wound Care Nurse 3 9. R plantar -Ulcer Cleansing Rinsed/ Irrigated with Saline -Foul Odor after Cleansing No -Primary Dressing Applied Aquacel Extra Aquacel Extra -Other Dressing EPIMESH -Primary Dressing Covered/Secured with Dry Gauze & Dry Gauze & Roll Gauze, Roll Gauze, Secured with Secured with Tape Tape -Other Covering DRSG PER DL TERMITE TREATER HELPER -Aquacel Extra 1 1 8. L heel -Ulcer Cleansing Rinsed/ Irrigated with Saline -Foul Odor after Cleansing No -Primary Dressing Applied Aquacel Extra -Other Dressing EPIMESH, TOPPED aquacel extra W/ AQUACEL EXTRA -Primary Dressing Covered/Secured with Dry Gauze -Other Covering TCC UNDERCAST foam/ TCC SIZE 3, DRSGS Casting PER DL TERMITE TREATER HELPER -Aquacel Extra 0 Treatment Response Procedure Procedure Tolerated Well Tolerated Well Pain Scale: 0-10 Numeric Is Patient Pain Free? Yes Yes WC - Visit Discharge Discharge Condition Stable Stable Ambulatory Status Ambulatory Ambulatory Transportation Private Auto Private Auto Assessment/Plan Assessment/Plan (1) Ulcer of right foot with fat layer exposed: CODE(S): L97.512 - Non-pressure chronic ulcer of other part of right foot with fat layer exposed (2) Ulcer of left foot with fat layer exposed: CODE(S): L97.522 - Non-pressure chronic ulcer of other part of left foot with fat layer exposed (3) MRSA (methicillin resistant staph aureus) culture positive: CODE(S): Z22.322 - Carrier or suspected carrier of Methicillin resistant Staphylococcus aureus (4) Cellulitis of left lower limb: CODE(S): L03.116 - Cellulitis of left lower limb (5) Delayed wound healing: CODE(S): T14.8XXD - Other injury of unspecified body region, subsequent encounter PLAN: Plan Patient came in for TCC cast change today as a courtesy visit for Dr. Gutierrez. No debridement was performed today. She has a small red area between her left 2nd and 3rd toe. It is not excoriated, no drainage, no odor, no pain. Will monitor closely. Made sure to dry between toes well to prevent any moisture build up. When removing the TCC, the wound veil to the ulcers came off. Her ulcers are wash with soap and water and her feet were dried well. Wound care will be Aquacel extra to both the left heel and the right plantar ulcer, including the right plantar skin tear from tape. A new TCC was placed today without difficulty. She is to continue off loading as directed by Dr. Gutierrez: offloading: To maintain strict nonweightbearing status with the knee roller, left with total contact cast and heel weightbear right in surgical shoe.? Total contact cast was applied today according to standard protocol (left) in a well- padded in neutral position after verbal consent was obtained. She tolerated this well and will keep this clean, dry, and intact.? Verbal consent was obtained prior to application and she will keep this clean and dry and intact as well. Her right foot surgical shoe was evaluated and I updated her offloading dual density Plastizote liners to take pressure off of her subfirst metatarsal head site. She was still encouraged not to do routine walking with this device to optimize healing. She is to follow up with Dr. Gutierrez on Monday. ?
[2022-05-18 08:03] VITALS: BP 129/82; PULSE 101; RESP 16; BMI 37.2
--- NOTE | 2022-05-18 08:42 | PCM.WC.PN ---
History of Present Illness Date of Service: 05/18/22 Chief Complaint: Left heel ulcer right foot ulcer History of Wound: This pleasant 56-year-old female with significant past medical history of lupus, history of panic attack, depression, history of delayed healing, hyperlipidemia, irritable bowel syndrome, memory loss, restless leg syndrome, and obstructive sleep apnea is here for follow-up of left heel and right foot ulcers. She is ready for total contact cast application again today. She had it changed this past Monday. She wears an offloading shoe to the right foot also. She denies fever, chill, nausea, vomiting, or other illness. Progress of Wound: Left heal and right foot ulcers are improving Objective Data Objective Data Vital Signs: Vital Signs Temp Pulse Resp BP O2 Del Method 97.2 F L 101 H 16 129/82 H Room Air 05/16/22 09:55 05/18/22 08:03 05/18/22 08:03 05/18/22 08:03 05/18/22 08:03 Oxygen Delivery Method Room Air Weight: 111.13 kg Body Mass Index (BMI) 37.2 Physical Exam Const alert and oriented x3 General Appearance: cooperative HEENT normocephalic Resp normal respiratory effort Cardio regular rate Extremity normal capillary refill and no calf tenderness Extremity Narrative: Bilateral pedal pulses palpable but diminished. +1 edema bilateral lower extremities. Skin color pink, with no pain or tenderness with palpation. Skin Wound Narrative: Left heel ulcer is beefy pink granulation tissue. No purulent drainage, no odor, no signs of infection. Right plantar ulcer, medial to 1st metatarsal head base of ulcer is beefy pink granulation tissue. left heel reduced size with 100% healthy granular base also. no maceration bilateral Neuro Speech: speech normal Psych affect normal Debridement Note Debridement Note Wound debrided: heel Laterality: Left Type of Debridement: Excisional debridement Anesthesia Used: 5% Lidocaine Gel Depth: Down to and including healthy tissue and in the subcutaneous layer Percentage of wound debrided: 100 Tissue Removed: Non viable tissue and slough Severity: Fat Layer Exposed Amount of bleeding with debridement: Mild Bleeding Controlled with: Pressure and Compression and gauze Patient tolerated procedure: Patient tolerated procedure well Post-Debridement Measurements and Additional Note: Post-Debridement Measurements/Treatment WC - Nurse 1 - General Ulcer Assessment Start: 05/11/22 08:21 Freq: Status: Active Protocol: WC.LOWEXT Activity Type Activity Date Activity User E-sign Co-sign Detail Recorded Client Recorded Date Recorded By Document 05/11/22 08:21 RB [id number] 05/11/22 08:28 RB Document 05/16/22 09:55 DL [id number] 05/16/22 10:06 DL Document 05/18/22 08:03 BM [id number] 05/18/22 08:13 BMF 05/11/22 05/16/22 05/18/22 08:21 09:55 08:03 WC - Today's Visit Information Type of service Follow-up Visit Follow-up Visit Follow-up Visit (Physician/TRADER FIXED INCOME (Physician/TRADER FIXED INCOME (Physician/TRADER FIXED INCOME ) ) ) Arrival Mode Ambulatory Ambulatory Ambulatory Transfer Assistance None None Patient Identification Verified (Name & Yes Yes Yes ) Patient Requires Transmission-Based No No Precautions Height and Weight Body Mass Index (BMI) 37.2 37.2 37.2 BMI Classification Obese Obese Obese Vital Signs Temperature (97.8 F-99.1 F) 96.4 F L 97.2 F L Temperature Source Temporal Temporal Pulse Rate (60-100) 103 H 101 H Pulse Location Monitor Monitor Monitor Respiratory Rate (12-18) 12 16 Respiratory rate source Observation Observation Oxygen Delivery Method Room Air Blood Pressure (90/60-120/80) 136/84 H 116/74 129/82 H Blood Pressure Mean (mm Hg) 101 88 97 Source Monitor Monitor Monitor Position Sitting Sitting Sitting Blood Pressure Location Left Arm Left Arm Left Arm History Since Last Visit- (Skip if this is Patient's initial visit) Have you changed medications since your No No No last visit? Any new allergies or adverse reactions No No No Had a fall/change in ADL's that may No No No increase risk of falls Signs or symptoms of abuse and/or No No No neglect since last visit Have you been in the hospital since your No No No last visit? Has dressing in place as prescribed Yes Yes Yes Has compression in place as prescribed No N/A N/A Has offloadiing in place as prescribed Yes Yes Yes Experienced any changes in pain level or No No No management Left Footwear Total Contact Removable Cast Total Contact Cast Walker/Walking Cast Boot Right Footwear Surgical Shoe Regular Shoe Regular Shoe with pressure relief insole Pain Scale: 0-10 Numeric Is Patient Pain Free? Yes Yes Yes WC - Nurse 1 - General Ulcer Measurement Start: 05/11/22 08:21 Freq: Status: Active Protocol: Activity Type Activity Date Activity User E-sign Co-sign Detail Recorded Client Recorded Date Recorded By Document 05/11/22 08:21 RB [id number] 05/11/22 08:28 RB Document 05/16/22 09:55 DL [id number] 05/16/22 10:06 DL Document 05/18/22 08:03 [facility] [id number] 05/18/22 08:13 BMF 05/11/22 05/16/22 05/18/22 08:21 09:55 08:03 Wound Center Nurse 1 9. R plantar -Combined with other wound No -Current Size (cm) - Length 1.2 0.6 1.3 -Current Size (cm) - Width 0.8 0.9 0.8 -Current Size (cm) - Depth 0.4 0.3 0.2 -Total Square Cm 0.96 0.54 1.04 -Photo Taken Yes No -Epithelialization Small 1-33% -Tunneling No No -Undermining/Tunneling No No -Circular Undermining No No -Exudate Amt Medium Medium Small -Exudate Type Serosanguineous Serosanguineous Serosanguineous -Wound Margin Distinct, Distinct, Thickened Outline Outline Attached Attached -Granulation Amt Medium (34-66%) Large (67-100%) Large (67-100%) -Granulation Quality [place] Red -Slough/Fibrin Yes Yes -Necrosis Amt Medium (34-66%) None Present (0 Small (1-33%) %) -Necrotic Tissue Type Adherent Slough Adherent Slough -Structure Exposed N/A -Texture (Cecelia-wound Skin Appearance) Callus Assessed, Assessed,Callus Scarring -Moisture (Cecelia-wound Skin Appearance) Assessed No Abnormality, Assessed,Dry/ Assessed Scaly -Color (Cecelia-wound Skin Appearance) No Abnormality, Assessed Assessed -Temperature (Cecelia-wound Skin No Abnormality No Abnormality No Abnormality Appearance) (Pt Warm) (Pt Warm) (Pt Warm) -Tenderness on Palpation (Cecelia-wound No No No Skin Appearance) -Ulcer Cleansing Wound Cleanser Soap and Water Rinsed/ Irrigated with Saline -Foul Odor after Cleansing No No No -Anesthetic Used 5% Lidocaine 5% Lidocaine 5% Lidocaine Gel Gel Gel 8. L heel -Combined with other wound No No -Current Size (cm) - Length 2.3 1.8 1.8 -Current Size (cm) - Width 2.9 2.8 2.6 -Current Size (cm) - Depth 0.7 0.6 0.4 -Total Square Cm 6.67 5.04 4.68 -Photo Taken Yes No -Epithelialization Small 1-33% -Tunneling No No -Undermining/Tunneling No No -Circular Undermining No No -Exudate Amt Medium Large Large -Exudate Type Serosanguineous Serosanguineous Serosanguineous -Wound Margin Thickened Distinct, Distinct, Outline Outline Attached Attached -Granulation Amt Medium (34-66%) Large (67-100%) Large (67-100%) -Granulation Quality [place] Red Pale,Red -Slough/Fibrin Yes Yes -Necrosis Amt Medium (34-66%) None Present (0 Small (1-33%) %) -Necrotic Tissue Type Adherent Slough Adherent Slough -Structure Exposed N/A -Texture (Cecelia-wound Skin Appearance) Callus Assessed, Assessed Scarring -Moisture (Cecelia-wound Skin Appearance) Assessed Assessed, Assessed,Dry/ Maceration Scaly -Color (Cecelia-wound Skin Appearance) Assessed No Abnormality, Assessed Assessed -Temperature (Cecelia-wound Skin No Abnormality No Abnormality No Abnormality Appearance) (Pt Warm) (Pt Warm) (Pt Warm) -Tenderness on Palpation (Cecelia-wound No No No Skin Appearance) -Ulcer Cleansing Wound Cleanser Soap and Water Soap and Water -Foul Odor after Cleansing No No No -Anesthetic Used 5% Lidocaine 5% Lidocaine 5% Lidocaine Gel Gel Gel WC - Nurse 2 - General Ulcer CM Notes Start: 05/11/22 08:21 Freq: Status: Active Protocol: Activity Type Activity Date Activity User E-sign Co-sign Detail Recorded Client Recorded Date Recorded By Document 05/11/22 08:37 STEPHANIE [id number] 05/11/22 08:48 JF Edit Result 05/11/22 08:37 STEPHANIE (1) [id number] 05/12/22 16:15 PL Document 05/17/22 06:54 PL [id number] 05/17/22 06:55 PL Document 05/18/22 08:34 JF [id number] 05/18/22 08:37 JF (1) 8. L heel - Offloading Yes => - Type of Offloading Total Contact Cast => (TCC) - Left ($) => 05/11/22 05/17/22 05/18/22 08:37 06:54 08:34 Wound Center Nurse 2 9. R plantar -Time 08:38 08:34 -Correct Patient Yes -Correct Side, Site, Position Yes Yes -Correct Procedure Yes Yes -Procedure Performed Yes Yes -Type of Procedure Debridement Debridement -Clinical Debridement Subcutaneous Subcutaneous -Tissue Removed Subcutaneous Subcutaneous -Post Debridement (cm) - Length 1.3 1.3 -Post Debridement (cm) - Width 0.8 0.9 -Post Debridement (cm) - Depth 0.3 0.2 -Total Square (Post) (cm) 1.04 1.17 -Area of Debridement (cm) - Length 1.3 1.3 -Area of Debridement (cm) - Width 0.8 0.9 -Total Square (Area) (cm) 1.04 1.17 -Tunneling No No -Undermining/Tunneling No No -Circular Undermining No No -Wound/Ulcer Outcome Not Healed Not Healed -Ulcer Cleansing Rinsed/ Rinsed/ Irrigated with Irrigated with Saline Saline -Foul Odor after Cleansing No No -Bioengineered Tissue No No -Bleeding Controlled with Pressure Pressure -Treatment Response Procedure Procedure Tolerated Well Tolerated Well -Offloading Yes Yes -Type of Offloading Surgical Shoe Total Contact Surgical Shoe Cast (TCC) - Left ($) -Debridement - Subq, 1st 20sq cm Yes Yes 8. L heel -Time 08: 08:35 -Correct Patient Yes Yes -Correct Side, Site, Position Yes Yes -Correct Procedure Yes Yes -Procedure Performed Yes Yes -Type of Procedure Debridement Debridement -Clinical Debridement Subcutaneous Subcutaneous -Tissue Removed Subcutaneous Subcutaneous -Post Debridement (cm) - Length 3 1.8 -Post Debridement (cm) - Width 2 2.7 -Post Debridement (cm) - Depth 0.3 0.4 -Total Square (Post) (cm) 6 4.86 -Area of Debridement (cm) - Length 3 1.8 -Area of Debridement (cm) - Width 2 2.7 -Total Square (Area) (cm) 6 4.86 -Tunneling No No -Undermining/Tunneling No No -Circular Undermining No No -Wound/Ulcer Outcome Not Healed Not Healed -Ulcer Cleansing Rinsed/ Rinsed/ Irrigated with Irrigated with Saline Saline -Foul Odor after Cleansing No No -Bioengineered Tissue Yes Yes -Type of Bioengineered Tissue Epifix Mesh Epifix Mesh -Expiration Date 12/07/26 03/09/27 -Product Lot Number [id number] -Percent Used 100 100 -Lot number of Saline Used [id number] -Bleeding Controlled with Pressure Pressure -Treatment Response Procedure Procedure Tolerated Well Tolerated Well -Offloading Yes -Type of Offloading Total Contact Cast (TCC) - Left ($) -Debridement - Subq, 1st 20sq cm No No -Apply Skin Sub - 1st 25 sq cm - Feet 1 1 -Epifix Mesh (per sq cm) 11 11 Pain Scale: 0-10 Numeric Is Patient Pain Free? Yes Yes Yes - Nurse 3 - General Ulcer D/C NN Start: 05/11/22 08:21 Freq: Status: Active Protocol: Activity Type Activity Date Activity User E-sign Co-sign Detail Recorded Client Recorded Date Recorded By Document 05/11/22 08:49 [facility] [id number] 05/11/22 08:52 BM Document 05/16/22 10:58 DL [id number] 05/16/22 11:00 DL 05/11/22 05/16/22 08:49 10:58 Wound Care Nurse 3 9. R plantar -Ulcer Cleansing Rinsed/ Irrigated with Saline -Foul Odor after Cleansing No -Primary Dressing Applied Aquacel Extra Aquacel Extra -Other Dressing EPIMESH -Primary Dressing Covered/Secured with Dry Gauze & Dry Gauze & Roll Gauze, Roll Gauze, Secured with Secured with Tape Tape -Other Covering DRSG PER DL CIRCLE BEVELER -Aquacel Extra 1 1 8. L heel -Ulcer Cleansing Rinsed/ Irrigated with Saline -Foul Odor after Cleansing No -Primary Dressing Applied Aquacel Extra -Other Dressing EPIMESH, TOPPED aquacel extra W/ AQUACEL EXTRA -Primary Dressing Covered/Secured with Dry Gauze -Other Covering TCC UNDERCAST foam/ TCC SIZE 3, DRSGS Casting PER DL CIRCLE BEVELER -Aquacel Extra 0 Treatment Response Procedure Procedure Tolerated Well Tolerated Well Pain Scale: 0-10 Numeric Is Patient Pain Free? Yes Yes WC - Visit Discharge Discharge Condition Stable Stable Ambulatory Status Ambulatory Ambulatory Transportation Private Auto Private Auto Additional Wound Wound debrided: plantar ulcer medial to 1st metatarsal Laterality: Right Type of Debridement: Excisional debridement Anesthesia Used: 5% Lidocaine Gel Depth: Down to and including healthy tissue and in the subcutaneous layer Percentage of wound debrided: 100 Instrument Used: 3mm curette Tissue Removed: Non viable tissue and slough Severity: Fat Layer Exposed Amount of bleeding with debridement: Mild Bleeding Controlled with: Pressure and Compression and gauze Patient tolerated procedure: Patient tolerated procedure well Assessment/Plan Assessment/Plan (1) Ulcer of right foot with fat layer exposed: CODE(S): L97.512 - Non-pressure chronic ulcer of other part of right foot with fat layer exposed (2) Ulcer of left foot with fat layer exposed: CODE(S): L97.522 - Non-pressure chronic ulcer of other part of left foot with fat layer exposed (3) Delayed wound healing: CODE(S): T14.8XXD - Other injury of unspecified body region, subsequent encounter PLAN: Plan I?reviewed and discussed her case.? Subcutaneous excisional debridement was performed as noted in the clinical panel bilateral. Diagnostic data was also reviewed. The following recommendations were made. Change dressing daily with Neida to the right few daily.? Advance wound healing product: I recommend application of epi fix to optimize healing.? The benefits and indications were reviewed and also expected management use.? Prior authorization was obtained.? This is medically necessary for limb salvage for the left heel ulcer.? She is at risk for amputation and limb loss and further infections.? Verbal consent was obtained and this was applied according standard protocol to the left heel.? This was further secured with a wound veil and Steri-Strips.? 100% of the product was utilized.? She tolerated this well.? To keep clean, dry, and intact until follow-up next week. offloading: To maintain strict nonweightbearing status with the knee roller, left with total contact cast and heel weightbear right in surgical shoe.? Total contact cast was applied today according to standard protocol (left) in a well-padded in neutral position after verbal consent was obtained. She tolerated this well and will keep this clean, dry, and intact.? Verbal consent was obtained prior to application and she will keep this clean and dry and intact as well.? Her right foot surgical shoe was evaluated and I updated her offloading dual density Plastizote liners to take pressure off of her subfirst metatarsal head site.? She was still encouraged not to do routine walking with this device to optimize healing. Infection:? 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 Concern is deeper infection involvement due to bulbous toe appearance including potential osteomyelitis.? She has been taking doxycycline with some mild improvement however this is in regards to reduced erythema.? It is noted she has continued communication with deep structures including the bone and there was bone that was debrided today from the left second toe.? Infectious disease specialist, Dr. Reyes also saw and evaluated her today and input is greatly appreciated.? She was advised to continue doxycycline and Augmentin will also be added to her regimen.? She understands amputation will be recommended if she fails oral antibiotic treatment course of at least 6 weeks. ID recs appreciated.? Improvement noted and infection resolved. nutrition: She was advised to maintain a balanced whole food diet with adequate protein and nutrients to optimize healing.? To resume Yosvany supplementation use. ? Host factors. Neuropathy complicates her case. To monitor close due to inability to sensate as normal.? She was also advised to avoid prednisone use and will also hold the Plaquenil at this time unless she has an intense flareup.? This was previously reviewed verbally with Dr. Pratt.? ? She also has a calcaneus gait with prior surgical intervention including a tendon transfer which is compromised with a fall in the early postoperative setting.? We previously discussed options to surgically alleviate her calcaneus gait including retightening the Achilles tendon or other posterior leg muscles.? Updated vascular (arterial) and doppler with reflux (venous) was ordered to assess for any abnormalities.? The arterial studies were reviewed and no arterial disease or occlusions were identified. ? Venous insufficiency work-up is still pending. Diagnostic data: Her bilateral foot xrays (three views) were reviewed from 04-06-2022 without soft tissue emphysema, osseous destruction or foreign body.? Chip fracture to medial proximal phalanx base unchanged noted to the right foot without additional osseous destruction.? T Labs reviewed from 02/15/22 with wbc 9.4, no renal dysfunction or other gross abnormalities. Note: [employer] speech recognition custom feed mill operator software was used to create portions of this document. Sound-alike and misspelled words, as well as other custom feed mill operator errors may be contained in the documentation. ?
[2022-05-25 08:27] VITALS: BP 131/80; PULSE 97; RESP 18; TEMP 36; BMI 37.2
--- NOTE | 2022-05-25 08:58 | PCM.WC.PN ---
History of Present Illness Date of Service: 05/25/22 Chief Complaint: Left heel ulcer right foot ulcer History of Wound: This pleasant 56-year-old female with significant past medical history of lupus, history of panic attack, depression, history of delayed healing, hyperlipidemia, irritable bowel syndrome, memory loss, restless leg syndrome, and obstructive sleep apnea is here for follow-up of left heel and right foot ulcers. She is ready for total contact cast application again today. She wears an offloading shoe to the right foot also. She has a wound that has identified on the right foot from a prior skin tear from picking at tape. She denies fever, chill, nausea, vomiting, or other illness. Progress of Wound: Left heel and right foot ulcers are improving New right foot ulcer identified Objective Data Objective Data Vital Signs: Vital Signs Temp Pulse Resp BP O2 Del Method 96.8 F L 97 18 131/80 H Room Air 05/25/22 08:27 05/25/22 08:27 05/25/22 08:27 05/25/22 08:27 05/18/22 08:03 Oxygen Delivery Method Room Air Weight: 111.13 kg Body Mass Index (BMI) 37.2 Physical Exam Const alert and oriented x3 General Appearance: cooperative Extremity normal capillary refill and no calf tenderness Extremity Narrative: Bilateral pedal pulses palpable but diminished. +1 edema bilateral lower extremities. Skin color pink, with no pain or tenderness with palpation. Skin Wound Narrative: Left heel ulcer is beefy pink granulation tissue. No purulent drainage, no odor, no signs of infection. Right plantar ulcer, medial to 1st metatarsal head base of ulcer is beefy pink granulation tissue and now new to plantar lateral foot with granular base. left heel reduced size with 100% healthy granular base also. no maceration bilateral Debridement Note Debridement Note Wound debrided: left heel, right plantar medial and lateral foot Laterality: Left Type of Debridement: Excisional debridement Anesthesia Used: 5% Lidocaine Gel Depth: Down to and including healthy tissue and in the subcutaneous layer Percentage of wound debrided: 100 Tissue Removed: Non viable tissue and slough Severity: Fat Layer Exposed Amount of bleeding with debridement: Mild Bleeding Controlled with: Pressure and Compression and gauze Patient tolerated procedure: Patient tolerated procedure well Post-Debridement Measurements and Additional Note: Post-Debridement Measurements/Treatment WC - Nurse 1 - General Ulcer Assessment Start: 05/11/22 08:21 Freq: Status: Active Protocol: WC.LOWEXT Activity Type Activity Date Activity User E-sign Co-sign Detail Recorded Client Recorded Date Recorded By Document 05/11/22 08:21 RB [id number] 05/11/22 08:28 RB Document 05/16/22 09:55 DL [id number] 05/16/22 10:06 DL Document 05/18/22 08:03 BM [id number] 05/18/22 08:13 BMF Document 05/25/22 08:27 RB Desktop 05/25/22 08:30 RB 05/11/22 05/16/22 05/18/22 08:21 09:55 08:03 WC - Today's Visit Information Type of service Follow-up Visit Follow-up Visit Follow-up Visit (Physician/BETTING CLERK (Physician/BETTING CLERK (Physician/BETTING CLERK ) ) ) Arrival Mode Ambulatory Ambulatory Ambulatory Transfer Assistance None None Patient Identification Verified (Name & Yes Yes Yes ) Patient Requires Transmission-Based No No Precautions Height and Weight Body Mass Index (BMI) 37.2 37.2 37.2 BMI Classification Obese Obese Obese Vital Signs Temperature (97.8 F-99.1 F) 96.4 F L 97.2 F L Temperature Source Temporal Temporal Pulse Rate (60-100) 103 H 101 H Pulse Location Monitor Monitor Monitor Respiratory Rate (12-18) 12 16 Respiratory rate source Observation Observation Oxygen Delivery Method Room Air Blood Pressure (90/60-120/80) 136/84 H 116/74 129/82 H Blood Pressure Mean (mm Hg) 101 88 97 Source Monitor Monitor Monitor Position Sitting Sitting Sitting Blood Pressure Location Left Arm Left Arm Left Arm History Since Last Visit- (Skip if this is Patient's initial visit) Have you changed medications since your No No No last visit? Any new allergies or adverse reactions No No No Had a fall/change in ADL's that may No No No increase risk of falls Signs or symptoms of abuse and/or No No No neglect since last visit Have you been in the hospital since your No No No last visit? Has dressing in place as prescribed Yes Yes Yes Has compression in place as prescribed No N/A N/A Has offloadiing in place as prescribed Yes Yes Yes Experienced any changes in pain level or No No No management Left Footwear Total Contact Removable Cast Total Contact Cast Walker/Walking Cast Boot Right Footwear Surgical Shoe Regular Shoe Regular Shoe with pressure relief insole Pain Scale: 0-10 Numeric Is Patient Pain Free? Yes Yes Yes 05/25/22 08:27 WC - Today's Visit Information Type of service Follow-up Visit (Physician/BETTING CLERK ) Arrival Mode Ambulatory Transfer Assistance None Patient Identification Verified (Name & Yes ) Patient Requires Transmission-Based No Precautions Height and Weight Body Mass Index (BMI) 37.2 BMI Classification Obese Vital Signs Temperature (97.8 F-99.1 F) 96.8 F L Temperature Source Temporal Pulse Rate (60-100) 97 Pulse Location Monitor Respiratory Rate (12-18) 18 Respiratory rate source Observation Oxygen Delivery Method Blood Pressure (90/60-120/80) 131/80 H Blood Pressure Mean (mm Hg) 97 Source Monitor Position Semi-Fowlers Blood Pressure Location Left Arm History Since Last Visit- (Skip if this is Patient's initial visit) Have you changed medications since your No last visit? Any new allergies or adverse reactions No Had a fall/change in ADL's that may No increase risk of falls Signs or symptoms of abuse and/or No neglect since last visit Have you been in the hospital since your No last visit? Has dressing in place as prescribed Yes Has compression in place as prescribed No Has offloadiing in place as prescribed Yes Experienced any changes in pain level or No management Left Footwear Total Contact Cast Right Footwear Regular Shoe Pain Scale: 0-10 Numeric Is Patient Pain Free? Yes - Nurse 1 - General Ulcer Measurement Start: 05/11/22 08:21 Freq: Status: Active Protocol: Activity Type Activity Date Activity User E-sign Co-sign Detail Recorded Client Recorded Date Recorded By Document 05/11/22 08:21 RB [id number] 05/11/22 08:28 RB Document 05/16/22 09:55 DL [id number] 05/16/22 10:06 DL Document 05/18/22 08:03 BMF [id number] 05/18/22 08:13 BMF Document 05/25/22 08:27 RB Desktop 05/25/22 08:30 RB 05/11/22 05/16/22 05/18/22 08:21 09:55 08:03 Wound Center Nurse 1 9. R plantar -Combined with other wound No -Current Size (cm) - Length 1.2 0.6 1.3 -Current Size (cm) - Width 0.8 0.9 0.8 -Current Size (cm) - Depth 0.4 0.3 0.2 -Total Square Cm 0.96 0.54 1.04 -Photo Taken Yes No -Epithelialization Small 1-33% -Tunneling No No -Undermining/Tunneling No No -Circular Undermining No No -Exudate Amt Medium Medium Small -Exudate Type Serosanguineous Serosanguineous Serosanguineous -Wound Margin Distinct, Distinct, Thickened Outline Outline Attached Attached -Granulation Amt Medium (34-66%) Large (67-100%) Large (67-100%) -Granulation Quality [place] Red -Slough/Fibrin Yes Yes -Necrosis Amt Medium (34-66%) None Present (0 Small (1-33%) %) -Necrotic Tissue Type Adherent Slough Adherent Slough -Structure Exposed N/A -Texture (Cecelia-wound Skin Appearance) Callus Assessed, Assessed,Callus Scarring -Moisture (Cecelia-wound Skin Appearance) Assessed No Abnormality, Assessed,Dry/ Assessed Scaly -Color (Cecelia-wound Skin Appearance) No Abnormality, Assessed Assessed -Temperature (Cecelia-wound Skin No Abnormality No Abnormality No Abnormality Appearance) (Pt Warm) (Pt Warm) (Pt Warm) -Tenderness on Palpation (Cecelia-wound No No No Skin Appearance) -Ulcer Cleansing Wound Cleanser Soap and Water Rinsed/ Irrigated with Saline -Foul Odor after Cleansing No No No -Anesthetic Used 5% Lidocaine 5% Lidocaine 5% Lidocaine Gel Gel Gel 8. L heel -Combined with other wound No No -Current Size (cm) - Length 2.3 1.8 1.8 -Current Size (cm) - Width 2.9 2.8 2.6 -Current Size (cm) - Depth 0.7 0.6 0.4 -Total Square Cm 6.67 5.04 4.68 -Photo Taken Yes No -Epithelialization Small 1-33% -Tunneling No No -Undermining/Tunneling No No -Circular Undermining No No -Exudate Amt Medium Large Large -Exudate Type Serosanguineous Serosanguineous Serosanguineous -Wound Margin Thickened Distinct, Distinct, Outline Outline Attached Attached -Granulation Amt Medium (34-66%) Large (67-100%) Large (67-100%) -Granulation Quality [place] Red Pale,Red -Slough/Fibrin Yes Yes -Necrosis Amt Medium (34-66%) None Present (0 Small (1-33%) %) -Necrotic Tissue Type Adherent Slough Adherent Slough -Structure Exposed N/A -Texture (Cecelia-wound Skin Appearance) Callus Assessed, Assessed Scarring -Moisture (Cecelia-wound Skin Appearance) Assessed Assessed, Assessed,Dry/ Maceration Scaly -Color (Cecelia-wound Skin Appearance) Assessed No Abnormality, Assessed Assessed -Temperature (Cecelia-wound Skin No Abnormality No Abnormality No Abnormality Appearance) (Pt Warm) (Pt Warm) (Pt Warm) -Tenderness on Palpation (Cecelia-wound No No No Skin Appearance) -Ulcer Cleansing Wound Cleanser Soap and Water Soap and Water -Foul Odor after Cleansing No No No -Anesthetic Used 5% Lidocaine 5% Lidocaine 5% Lidocaine Gel Gel Gel 05/25/22 08:27 Wound Center Nurse 1 9. R plantar -Combined with other wound No -Current Size (cm) - Length 0.9 -Current Size (cm) - Width 0.6 -Current Size (cm) - Depth 0.3 -Total Square Cm 0.54 -Photo Taken Yes -Epithelialization -Tunneling No -Undermining/Tunneling No -Circular Undermining No -Exudate Amt Medium -Exudate Type Serosanguineous -Wound Margin Thickened -Granulation Amt Medium (34-66%) -Granulation Quality [place] -Slough/Fibrin Yes -Necrosis Amt Medium (34-66%) -Necrotic Tissue Type Adherent Slough -Structure Exposed N/A -Texture (Cecelia-wound Skin Appearance) Callus -Moisture (Cecelia-wound Skin Appearance) Assessed -Color (Cecelia-wound Skin Appearance) Assessed -Temperature (Cecelia-wound Skin No Abnormality Appearance) (Pt Warm) -Tenderness on Palpation (Cecelia-wound No Skin Appearance) -Ulcer Cleansing Wound Cleanser -Foul Odor after Cleansing No -Anesthetic Used 5% Lidocaine Gel 8. L heel -Combined with other wound No -Current Size (cm) - Length 1.7 -Current Size (cm) - Width 2.7 -Current Size (cm) - Depth 0.5 -Total Square Cm 4.59 -Photo Taken Yes -Epithelialization -Tunneling No -Undermining/Tunneling No -Circular Undermining No -Exudate Amt Medium -Exudate Type Serosanguineous -Wound Margin Distinct, Outline Attached -Granulation Amt Medium (34-66%) -Granulation Quality [place] -Slough/Fibrin Yes -Necrosis Amt Medium (34-66%) -Necrotic Tissue Type Adherent Slough -Structure Exposed N/A -Texture (Cecelia-wound Skin Appearance) Assessed,Callus -Moisture (Cecelia-wound Skin Appearance) Assessed -Color (Cecelia-wound Skin Appearance) Assessed -Temperature (Cecelia-wound Skin No Abnormality Appearance) (Pt Warm) -Tenderness on Palpation (Cecelia-wound No Skin Appearance) -Ulcer Cleansing Wound Cleanser -Foul Odor after Cleansing No -Anesthetic Used 5% Lidocaine Gel WC - Nurse 2 - General Ulcer CM Notes Start: 05/11/22 08:21 Freq: Status: Active Protocol: Activity Type Activity Date Activity User E-sign Co-sign Detail Recorded Client Recorded Date Recorded By Document 05/11/22 08:37 JF [id number] 05/11/22 08:48 JF Edit Result 05/11/22 08:37 JF (1) [id number] 05/12/22 16:15 PL Document 05/17/22 06:54 PL [id number] 05/17/22 06:55 PL Document 05/18/22 08:34 JF [id number] 05/18/22 08:37 JF Document 05/25/22 08:41 JF [id number] 05/25/22 08:50 JF Edit Result 05/25/22 08:41 JF (2) [id number] 05/25/22 08:52 JF (1) 8. L heel - Offloading Yes => - Type of Offloading Total Contact Cast => (TCC) - Left ($) => (2) 11-right 5th methead - Time => 08:51 - Correct Patient => Yes - Correct Side, Site, Position => Yes - Correct Procedure => Yes - Procedure Performed => Yes - Type of Procedure => Debridement - Clinical Debridement => Subcutaneous - Tissue Removed => Subcutaneous - Post Debridement (cm) - Length => 0.6 - Post Debridement (cm) - Width => 0.8 - Post Debridement (cm) - Depth => 0.2 - Total Square (Post) (cm) => 0.48 - Area of Debridement (cm) - Length => 0.6 - Area of Debridement (cm) - Width => 0.8 - Total Square (Area) (cm) => 0.48 - Tunneling => No - Undermining/Tunneling => No - Circular Undermining => No - Wound/Ulcer Outcome => Not Healed - Ulcer Cleansing => Rinsed/Irrigated => with Saline - Foul Odor after Cleansing => No - Bioengineered Tissue => No - Bleeding Controlled with => Pressure - Treatment Response => Procedure => Tolerated Well - Offloading => Yes - Type of Offloading => Surgical Shoe - Debridement - Subq, 20sq cm => No 05/11/22 05/17/22 05/18/22 08:37 06:54 08:34 Wound Center Nurse 2 11-right 5th methead -Time -Correct Patient -Correct Side, Site, Position -Correct Procedure -Procedure Performed -Type of Procedure -Clinical Debridement -Tissue Removed -Post Debridement (cm) - Length -Post Debridement (cm) - Width -Post Debridement (cm) - Depth -Total Square (Post) (cm) -Area of Debridement (cm) - Length -Area of Debridement (cm) - Width -Total Square (Area) (cm) -Tunneling -Undermining/Tunneling -Circular Undermining -Wound/Ulcer Outcome -Ulcer Cleansing -Foul Odor after Cleansing -Bioengineered Tissue -Bleeding Controlled with -Treatment Response -Offloading -Type of Offloading -Debridement - Subq, 1st 20sq cm 9. R plantar -Time 08:38 08:34 -Correct Patient Yes -Correct Side, Site, Position Yes Yes -Correct Procedure Yes Yes -Procedure Performed Yes Yes -Type of Procedure Debridement Debridement -Clinical Debridement Subcutaneous Subcutaneous -Tissue Removed Subcutaneous Subcutaneous -Post Debridement (cm) - Length 1.3 1.3 -Post Debridement (cm) - Width 0.8 0.9 -Post Debridement (cm) - Depth 0.3 0.2 -Total Square (Post) (cm) 1.04 1.17 -Area of Debridement (cm) - Length 1.3 1.3 -Area of Debridement (cm) - Width 0.8 0.9 -Total Square (Area) (cm) 1.04 1.17 -Tunneling No No -Undermining/Tunneling No No -Circular Undermining No No -Wound/Ulcer Outcome Not Healed Not Healed -Ulcer Cleansing Rinsed/ Rinsed/ Irrigated with Irrigated with Saline Saline -Foul Odor after Cleansing No No -Bioengineered Tissue No No -Bleeding Controlled with Pressure Pressure -Treatment Response Procedure Procedure Tolerated Well Tolerated Well -Offloading Yes Yes -Type of Offloading Surgical Shoe Total Contact Surgical Shoe Cast (TCC) - Left ($) -Debridement - Subq, 1st 20sq cm Yes Yes 8. L heel -Time 08:38 08:35 -Correct Patient Yes Yes -Correct Side, Site, Position Yes Yes -Correct Procedure Yes Yes -Procedure Performed Yes Yes -Type of Procedure Debridement Debridement -Clinical Debridement Subcutaneous Subcutaneous -Tissue Removed Subcutaneous Subcutaneous -Post Debridement (cm) - Length 3 1.8 -Post Debridement (cm) - Width 2 2.7 -Post Debridement (cm) - Depth 0.3 0.4 -Total Square (Post) (cm) 6 4.86 -Area of Debridement (cm) - Length 3 1.8 -Area of Debridement (cm) - Width 2 2.7 -Total Square (Area) (cm) 6 4.86 -Tunneling No No -Undermining/Tunneling No No -Circular Undermining No No -Wound/Ulcer Outcome Not Healed Not Healed -Ulcer Cleansing Rinsed/ Rinsed/ Irrigated with Irrigated with Saline Saline -Foul Odor after Cleansing No No -Bioengineered Tissue Yes Yes -Type of Bioengineered Tissue Epifix Mesh Epifix Mesh -Expiration Date 12/07/26 03/09/27 -Product Lot Number [id number] -Percent Used 100 100 -Lot number of Saline Used [id number] -Bleeding Controlled with Pressure Pressure -Treatment Response Procedure Procedure Tolerated Well Tolerated Well -Offloading Yes -Type of Offloading Total Contact Cast (TCC) - Left ($) -Debridement - Subq, 1st 20sq cm No No -Apply Skin Sub - 1st 25 sq cm - Feet 1 1 -Epifix (per sq cm) -Epifix Mesh (per sq cm) 11 11 Pain Scale: 0-10 Numeric Is Patient Pain Free? Yes Yes Yes 05/25/22 08:41 Wound Center Nurse 2 11-right 5th methead -Time 08:51 -Correct Patient Yes -Correct Side, Site, Position Yes -Correct Procedure Yes -Procedure Performed Yes -Type of Procedure Debridement -Clinical Debridement Subcutaneous -Tissue Removed Subcutaneous -Post Debridement (cm) - Length 0.6 -Post Debridement (cm) - Width 0.8 -Post Debridement (cm) - Depth 0.2 -Total Square (Post) (cm) 0.48 -Area of Debridement (cm) - Length 0.6 -Area of Debridement (cm) - Width 0.8 -Total Square (Area) (cm) 0.48 -Tunneling No -Undermining/Tunneling No -Circular Undermining No -Wound/Ulcer Outcome Not Healed -Ulcer Cleansing Rinsed/ Irrigated with Saline -Foul Odor after Cleansing No -Bioengineered Tissue No -Bleeding Controlled with Pressure -Treatment Response Procedure Tolerated Well -Offloading Yes -Type of Offloading Surgical Shoe -Debridement - Subq, 1st 20sq cm No 9. R plantar -Time 08:42 -Correct Patient Yes -Correct Side, Site, Position Yes -Correct Procedure Yes -Procedure Performed Yes -Type of Procedure Debridement -Clinical Debridement Subcutaneous -Tissue Removed Subcutaneous -Post Debridement (cm) - Length 1 -Post Debridement (cm) - Width 0.6 -Post Debridement (cm) - Depth 0.3 -Total Square (Post) (cm) 0.6 -Area of Debridement (cm) - Length 1.0 -Area of Debridement (cm) - Width 0.6 -Total Square (Area) (cm) 0.60 -Tunneling No -Undermining/Tunneling No -Circular Undermining No -Wound/Ulcer Outcome Not Healed -Ulcer Cleansing Rinsed/ Irrigated with Saline -Foul Odor after Cleansing No -Bioengineered Tissue No -Bleeding Controlled with Pressure -Treatment Response Procedure Tolerated Well -Offloading Yes -Type of Offloading Surgical Shoe -Debridement - Subq, 1st 20sq cm Yes 8. L heel -Time 08:42 -Correct Patient Yes -Correct Side, Site, Position Yes -Correct Procedure Yes -Procedure Performed Yes -Type of Procedure Debridement -Clinical Debridement Subcutaneous -Tissue Removed Subcutaneous -Post Debridement (cm) - Length 1.8 -Post Debridement (cm) - Width 2.8 -Post Debridement (cm) - Depth 0.5 -Total Square (Post) (cm) 5.04 -Area of Debridement (cm) - Length 1.8 -Area of Debridement (cm) - Width 2.8 -Total Square (Area) (cm) 5.04 -Tunneling No -Undermining/Tunneling No -Circular Undermining No -Wound/Ulcer Outcome Not Healed -Ulcer Cleansing Rinsed/ Irrigated with Saline -Foul Odor after Cleansing No -Bioengineered Tissue Yes -Type of Bioengineered Tissue Epifix -Expiration Date 02/06/27 -Product Lot Number [id number] -Percent Used 100 -Lot number of Saline Used [id number] -Bleeding Controlled with Pressure -Treatment Response Procedure Tolerated Well -Offloading Yes -Type of Offloading Total Contact Cast (TCC) - Left ($) -Debridement - Subq, 1st 20sq cm No -Apply Skin Sub - 1st 25 sq cm - Feet 1 -Epifix (per sq cm) 4 -Epifix Mesh (per sq cm) Pain Scale: 0-10 Numeric Is Patient Pain Free? Yes WC - Nurse 3 - General Ulcer D/C NN Start: 05/11/22 08:21 Freq: Status: Active Protocol: Activity Type Activity Date Activity User E-sign Co-sign Detail Recorded Client Recorded Date Recorded By Document 05/11/22 08:49 [facility] [id number] 05/11/22 08:52 [facility] Document 05/16/22 10:58 DL [id number] 05/16/22 11:00 DL Document 05/18/22 08:51 [facility] [id number] 05/18/22 08:52 [facility] 05/11/22 05/16/22 05/18/22 08:49 10:58 08:51 Wound Care Nurse 3 9. R plantar -Ulcer Cleansing Rinsed/ Rinsed/ Irrigated with Irrigated with Saline Saline -Foul Odor after Cleansing No No -Primary Dressing Applied Aquacel Extra Aquacel Extra Aquacel Extra -Other Dressing EPIMESH drsg per jf rn -Primary Dressing Covered/Secured with Dry Gauze & Dry Gauze & Dry Gauze, Roll Gauze, Roll Gauze, Secured with Secured with Secured with Tape Tape Tape -Other Covering DRSG PER DL ANIMAL RESCUER -Aquacel Extra 1 1 1 8. L heel -Ulcer Cleansing Rinsed/ Irrigated with Saline -Foul Odor after Cleansing No -Primary Dressing Applied Aquacel Extra -Other Dressing EPIMESH, TOPPED aquacel extra epimesh, drymax W/ AQUACEL EXTRA -Primary Dressing Covered/Secured with Dry Gauze Dry Gauze, Secured with Tape -Other Covering TCC UNDERCAST foam/ TCC tcc undercast SIZE 3, DRSGS Casting PER DL ANIMAL RESCUER -Aquacel Extra 0 Treatment Response Procedure Procedure Procedure Tolerated Well Tolerated Well Tolerated Well Pain Scale: 0-10 Numeric Is Patient Pain Free? Yes Yes Yes WC - Visit Discharge Discharge Condition Stable Stable Stable Ambulatory Status Ambulatory Ambulatory Ambulatory Transportation Private Auto Private Auto Private Auto Additional Wound Wound debrided: plantar ulcer medial to 1st metatarsal Laterality: Right Type of Debridement: Excisional debridement Anesthesia Used: 5% Lidocaine Gel Depth: Down to and including healthy tissue and in the subcutaneous layer Percentage of wound debrided: 100 Instrument Used: 3mm curette Tissue Removed: Non viable tissue and slough Severity: Fat Layer Exposed Amount of bleeding with debridement: Mild Bleeding Controlled with: Pressure and Compression and gauze Patient tolerated procedure: Patient tolerated procedure well Assessment/Plan Assessment/Plan (1) Ulcer of right foot with fat layer exposed: CODE(S): L97.512 - Non-pressure chronic ulcer of other part of right foot with fat layer exposed (2) Ulcer of left foot with fat layer exposed: CODE(S): L97.522 - Non-pressure chronic ulcer of other part of left foot with fat layer exposed (3) Delayed wound healing: CODE(S): T14.8XXD - Other injury of unspecified body region, subsequent encounter PLAN: Plan I?reviewed and discussed her case.? Subcutaneous excisional debridement was performed as noted in the clinical panel bilateral. Diagnostic data was also reviewed. The following recommendations were made. Change dressing daily with Neida to the right few daily.? Advance wound healing product: I recommend application of epi fix to optimize healing.? The benefits and indications were reviewed and also expected management use.? Prior authorization was obtained.? This is medically necessary for limb salvage for the left heel ulcer.? She is at risk for amputation and limb loss and further infections.? Verbal consent was obtained and this was applied according standard protocol to the left heel.? This was further secured with a wound veil and Steri-Strips.? 100% of the product was utilized.? She tolerated this well.? To keep clean, dry, and intact until follow-up next week. offloading: To maintain strict nonweightbearing status with the knee roller, left with total contact cast and heel weightbear right in surgical shoe.? Total contact cast was applied today according to standard protocol (left) in a well-padded in neutral position after verbal consent was obtained. She tolerated this well and will keep this clean, dry, and intact.? Verbal consent was obtained prior to application and she will keep this clean and dry and intact as well.? Her right foot surgical shoe was evaluated and I updated her offloading dual density Plastizote liners to take pressure off of her subfirst metatarsal head site.? She was still encouraged not to do routine walking with this device to optimize healing. Infection:? 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 Concern is deeper infection involvement due to bulbous toe appearance including potential osteomyelitis.? She has been taking doxycycline with some mild improvement however this is in regards to reduced erythema.? It is noted she has continued communication with deep structures including the bone and there was bone that was debrided today from the left second toe.? Infectious disease specialist, Dr. Reyes also saw and evaluated her today and input is greatly appreciated.? She was advised to continue doxycycline and Augmentin will also be added to her regimen.? She understands amputation will be recommended if she fails oral antibiotic treatment course of at least 6 weeks. ID recs appreciated.? Improvement noted and infection resolved. nutrition: She was advised to maintain a balanced whole food diet with adequate protein and nutrients to optimize healing.? To resume Yosvany supplementation use. ? Host factors. Neuropathy complicates her case. To monitor close due to inability to sensate as normal.? She was also advised to avoid prednisone use and will also hold the Plaquenil at this time unless she has an intense flareup.? This was previously reviewed verbally with Dr. Pratt.? ? She also has a calcaneus gait with prior surgical intervention including a tendon transfer which is compromised with a fall in the early postoperative setting.? We previously discussed options to surgically alleviate her calcaneus gait including retightening the Achilles tendon or other posterior leg muscles.? Updated vascular (arterial) and doppler with reflux (venous) was ordered to assess for any abnormalities.? The arterial studies were reviewed and no arterial disease or occlusions were identified. ? Venous insufficiency work-up is still pending. Diagnostic data: Her bilateral foot xrays (three views) were reviewed from 04-06-2022 without soft tissue emphysema, osseous destruction or foreign body.? Chip fracture to medial proximal phalanx base unchanged noted to the right foot without additional osseous destruction.? T Labs reviewed from 02/15/22 with wbc 9.4, no renal dysfunction or other gross abnormalities. Note: [employer] speech recognition homeopathic doctor software was used to create portions of this document. Sound-alike and misspelled words, as well as other homeopathic doctor errors may be contained in the documentation. ?
[2022-06-01 08:17] VITALS: BP 124/70; PULSE 101; RESP 18; TEMP 36.1; BMI 37.2
--- NOTE | 2022-06-01 11:17 | PN.PCM_ITS ---
History of Present Illness Date of Service: 06/01/22 Chief Complaint: Left heel ulcer right foot ulcer History of Wound: This pleasant 56-year-old female with significant past medical history of lupus, history of panic attack, depression, history of delayed healing, hyperlipidemia, irritable bowel syndrome, memory loss, restless leg syndrome, and obstructive sleep apnea is here for follow-up of left heel and right foot ulcers. She is ready for total contact cast application again today. She wears an offloading shoe to the right foot also for two ulcer sites. She denies fever, chill, nausea, vomiting, or other illness. Progress of Wound: Left heel and right foot ulcers are improving Objective Data Objective Data Vital Signs: Vital Signs Temp Pulse Resp BP O2 Del Method 97 F L 101 H 18 124/70 H Room Air 06/01/22 08:17 06/01/22 08:17 06/01/22 08:17 06/01/22 08:17 05/18/22 08:03 Oxygen Delivery Method Room Air Weight: 111.13 kg Body Mass Index (BMI) 37.2 Physical Exam Const alert and oriented x3 General Appearance: cooperative Extremity normal capillary refill and no calf tenderness Extremity Narrative: Bilateral pedal pulses palpable but diminished. +1 edema bilateral lower extremities. Skin color pink, with no pain or tenderness with palpation. Skin Wound Narrative: Left heel ulcer is beefy pink granulation tissue. No purulent drainage, no odor, no signs of infection. Right plantar ulcer, medial to 1st metatarsal head and also plantar lateral foot with base of ulcer beefy pink granulation tissue. left heel reduced size with 100% healthy granular base also. no maceration bilateral Debridement Note Debridement Note Wound debrided: left heel, right plantar medial and lateral foot Laterality: Left Type of Debridement: Excisional debridement Anesthesia Used: 5% Lidocaine Gel Depth: Down to and including healthy tissue and in the subcutaneous layer Percentage of wound debrided: 100 Tissue Removed: Non viable tissue and slough Severity: Fat Layer Exposed Amount of bleeding with debridement: Mild Bleeding Controlled with: Pressure and Compression and gauze Patient tolerated procedure: Patient tolerated procedure well Post-Debridement Measurements and Additional Note: Post-Debridement Measurements/Treatment ARACELI - Nurse 1 - General Ulcer Assessment Start: 05/11/22 08:21 Freq: Status: Active Protocol: OLGA Activity Type Activity Date Activity User E-sign Co-sign Detail Recorded Client Recorded Date Recorded By Document 05/11/22 08:21 RB [id number] 05/11/22 08:28 RB Document 05/16/22 09:55 DL [id number] 05/16/22 10:06 DL Document 05/18/22 08:03 [facility] [id number] 05/18/22 08:13 BMF Document 05/25/22 08:27 RB Desktop 05/25/22 08:30 RB Document 06/01/22 08:17 RB [id number] 06/01/22 08:25 RB 05/11/22 05/16/22 05/18/22 08:21 09:55 08:03 WC - Today's Visit Information Type of service Follow-up Visit Follow-up Visit Follow-up Visit (Physician/DENTAL CERAMIST HELPER (Physician/DENTAL CERAMIST HELPER (Physician/DENTAL CERAMIST HELPER ) ) ) Arrival Mode Ambulatory Ambulatory Ambulatory Transfer Assistance None None Patient Identification Verified (Name & Yes Yes Yes ) Patient Requires Transmission-Based No No Precautions Height and Weight Body Mass Index (BMI) 37.2 37.2 37.2 BMI Classification Obese Obese Obese Vital Signs Temperature (97.8 F-99.1 F) 96.4 F L 97.2 F L Temperature Source Temporal Temporal Pulse Rate (60-100) 103 H 101 H Pulse Location Monitor Monitor Monitor Respiratory Rate (12-18) 12 16 Respiratory rate source Observation Observation Oxygen Delivery Method Room Air Blood Pressure (90/60-120/80) 136/84 H 116/74 129/82 H Blood Pressure Mean (mm Hg) 101 88 97 Source Monitor Monitor Monitor Position Sitting Sitting Sitting Blood Pressure Location Left Arm Left Arm Left Arm History Since Last Visit- (Skip if this is Patient's initial visit) Have you changed medications since your No No No last visit? Any new allergies or adverse reactions No No No Had a fall/change in ADL's that may No No No increase risk of falls Signs or symptoms of abuse and/or No No No neglect since last visit Have you been in the hospital since your No No No last visit? Has dressing in place as prescribed Yes Yes Yes Has compression in place as prescribed No N/A N/A Has offloadiing in place as prescribed Yes Yes Yes Experienced any changes in pain level or No No No management Left Footwear Total Contact Removable Cast Total Contact Cast Walker/Walking Cast Boot Right Footwear Surgical Shoe Regular Shoe Regular Shoe with pressure relief insole Pain Scale: 0-10 Numeric Is Patient Pain Free? Yes Yes Yes 05/25/22 06/01/22 08:27 08:17 - Today's Visit Information Type of service Follow-up Visit Follow-up Visit (Physician/DENTAL CERAMIST HELPER (Physician/DENTAL CERAMIST HELPER ) ) Arrival Mode Ambulatory Ambulatory Transfer Assistance None None Patient Identification Verified (Name & Yes Yes ) Patient Requires Transmission-Based No No Precautions Height and Weight Body Mass Index (BMI) 37.2 37.2 BMI Classification Obese Obese Vital Signs Temperature (97.8 F-99.1 F) 96.8 F L 97 F L Temperature Source Temporal Temporal Pulse Rate (60-100) 97 101 H Pulse Location Monitor Monitor Respiratory Rate (12-18) 18 18 Respiratory rate source Observation Observation Oxygen Delivery Method Blood Pressure (90/60-120/80) 131/80 H 124/70 H Blood Pressure Mean (mm Hg) 97 88 Source Monitor Monitor Position Semi-Fowlers Sitting Blood Pressure Location Left Arm Left Arm History Since Last Visit- (Skip if this is Patient's initial visit) Have you changed medications since your No No last visit? Any new allergies or adverse reactions No No Had a fall/change in ADL's that may No No increase risk of falls Signs or symptoms of abuse and/or No No neglect since last visit Have you been in the hospital since your No No last visit? Has dressing in place as prescribed Yes Yes Has compression in place as prescribed No No Has offloadiing in place as prescribed Yes Yes Experienced any changes in pain level or No No management Left Footwear Total Contact Total Contact Cast Cast Right Footwear Regular Shoe Surgical Shoe with pressure relief insole Pain Scale: 0-10 Numeric Is Patient Pain Free? Yes Yes - Nurse 1 - General Ulcer Measurement Start: 05/11/22 08:21 Freq: Status: Active Protocol: Activity Type Activity Date Activity User E-sign Co-sign Detail Recorded Client Recorded Date Recorded By Document 05/11/22 08:21 RB [id number] 05/11/22 08:28 RB Document 05/16/22 09:55 DL [id number] 05/16/22 10:06 DL Document 05/18/22 08:03 BMF [id number] 05/18/22 08:13 BM Document 05/25/22 08:27 RB Desktop 05/25/22 08:30 RB Document 06/01/22 08:17 RB [id number] 06/01/22 08:25 RB 05/11/22 05/16/22 05/18/22 08:21 09:55 08:03 Wound Center Nurse 1 11-right 5th methead -Combined with other wound -Current Size (cm) - Length -Current Size (cm) - Width -Current Size (cm) - Depth -Total Square Cm -Photo Taken -Tunneling -Undermining/Tunneling -Circular Undermining -Exudate Amt -Exudate Type -Wound Margin -Granulation Amt -Granulation Quality -Slough/Fibrin -Necrosis Amt -Necrotic Tissue Type -Structure Exposed -Texture (Cecelia-wound Skin Appearance) -Moisture (Cecelia-wound Skin Appearance) -Color (Cecelia-wound Skin Appearance) -Temperature (Cecelia-wound Skin Appearance) -Tenderness on Palpation (Cecelia-wound Skin Appearance) -Ulcer Cleansing -Foul Odor after Cleansing -Anesthetic Used 9. R plantar -Combined with other wound No -Current Size (cm) - Length 1.2 0.6 1.3 -Current Size (cm) - Width 0.8 0.9 0.8 -Current Size (cm) - Depth 0.4 0.3 0.2 -Total Square Cm 0.96 0.54 1.04 -Photo Taken Yes No -Epithelialization Small 1-33% -Tunneling No No -Undermining/Tunneling No No -Circular Undermining No No -Exudate Amt Medium Medium Small -Exudate Type Serosanguineous Serosanguineous Serosanguineous -Wound Margin Distinct, Distinct, Thickened Outline Outline Attached Attached -Granulation Amt Medium (34-66%) Large (67-100%) Large (67-100%) -Granulation Quality [place] Red -Slough/Fibrin Yes Yes -Necrosis Amt Medium (34-66%) None Present (0 Small (1-33%) %) -Necrotic Tissue Type Adherent Slough Adherent Slough -Structure Exposed N/A -Texture (Cecelia-wound Skin Appearance) Callus Assessed, Assessed,Callus Scarring -Moisture (Cecelia-wound Skin Appearance) Assessed No Abnormality, Assessed,Dry/ Assessed Scaly -Color (Cecelia-wound Skin Appearance) No Abnormality, Assessed Assessed -Temperature (Cecelia-wound Skin No Abnormality No Abnormality No Abnormality Appearance) (Pt Warm) (Pt Warm) (Pt Warm) -Tenderness on Palpation (Cecelia-wound No No No Skin Appearance) -Ulcer Cleansing Wound Cleanser Soap and Water Rinsed/ Irrigated with Saline -Foul Odor after Cleansing No No No -Anesthetic Used 5% Lidocaine 5% Lidocaine 5% Lidocaine Gel Gel Gel 8. L heel -Combined with other wound No No -Current Size (cm) - Length 2.3 1.8 1.8 -Current Size (cm) - Width 2.9 2.8 2.6 -Current Size (cm) - Depth 0.7 0.6 0.4 -Total Square Cm 6.67 5.04 4.68 -Photo Taken Yes No -Epithelialization Small 1-33% -Tunneling No No -Undermining/Tunneling No No -Circular Undermining No No -Exudate Amt Medium Large Large -Exudate Type Serosanguineous Serosanguineous Serosanguineous -Wound Margin Thickened Distinct, Distinct, Outline Outline Attached Attached -Granulation Amt Medium (34-66%) Large (67-100%) Large (67-100%) -Granulation Quality [place] Red Pale,Red -Slough/Fibrin Yes Yes -Necrosis Amt Medium (34-66%) None Present (0 Small (1-33%) %) -Necrotic Tissue Type Adherent Slough Adherent Slough -Structure Exposed N/A -Texture (Cecelia-wound Skin Appearance) Callus Assessed, Assessed Scarring -Moisture (Cecelia-wound Skin Appearance) Assessed Assessed, Assessed,Dry/ Maceration Scaly -Color (Cecelia-wound Skin Appearance) Assessed No Abnormality, Assessed Assessed -Temperature (Cecelia-wound Skin No Abnormality No Abnormality No Abnormality Appearance) (Pt Warm) (Pt Warm) (Pt Warm) -Tenderness on Palpation (Cecelia-wound No No No Skin Appearance) -Ulcer Cleansing Wound Cleanser Soap and Water Soap and Water -Foul Odor after Cleansing No No No -Anesthetic Used 5% Lidocaine 5% Lidocaine 5% Lidocaine Gel Gel Gel 05/25/22 06/01/22 08:27 08:17 Wound Center Nurse 1 11-right 5th methead -Combined with other wound No -Current Size (cm) - Length 0.1 -Current Size (cm) - Width 0.1 -Current Size (cm) - Depth 0.1 -Total Square Cm 0.01 -Photo Taken Yes -Tunneling No -Undermining/Tunneling No -Circular Undermining No -Exudate Amt Small -Exudate Type Serosanguineous -Wound Margin Distinct, Outline Attached -Granulation Amt Medium (34-66%) -Granulation Quality [place] -Slough/Fibrin Yes -Necrosis Amt Small (1-33%) -Necrotic Tissue Type Adherent Slough -Structure Exposed N/A -Texture (Cecelia-wound Skin Appearance) Assessed,Callus -Moisture (Cecelia-wound Skin Appearance) Assessed -Color (Cecelia-wound Skin Appearance) Assessed -Temperature (Cecelia-wound Skin No Abnormality Appearance) (Pt Warm) -Tenderness on Palpation (Cecelia-wound No Skin Appearance) -Ulcer Cleansing Wound Cleanser -Foul Odor after Cleansing No -Anesthetic Used 5% Lidocaine Gel 9. R plantar -Combined with other wound No No -Current Size (cm) - Length 0.9 1.2 -Current Size (cm) - Width 0.6 0.6 -Current Size (cm) - Depth 0.3 0.3 -Total Square Cm 0.54 0.72 -Photo Taken Yes Yes -Epithelialization -Tunneling No No -Undermining/Tunneling No No -Circular Undermining No No -Exudate Amt Medium Large -Exudate Type Serosanguineous Serosanguineous -Wound Margin Thickened Thickened & Rolled Under -Granulation Amt Medium (34-66%) Medium (34-66%) -Granulation Quality [place] -Slough/Fibrin Yes Yes -Necrosis Amt Medium (34-66%) Large (67-100%) -Necrotic Tissue Type Adherent Slough Adherent Slough -Structure Exposed N/A N/A -Texture (Cecelia-wound Skin Appearance) Callus Assessed,Callus -Moisture (Cecelia-wound Skin Appearance) Assessed Assessed -Color (Cecelia-wound Skin Appearance) Assessed Assessed -Temperature (Cecelia-wound Skin No Abnormality No Abnormality Appearance) (Pt Warm) (Pt Warm) -Tenderness on Palpation (Cecelia-wound No No Skin Appearance) -Ulcer Cleansing Wound Cleanser Wound Cleanser -Foul Odor after Cleansing No No -Anesthetic Used 5% Lidocaine 5% Lidocaine Gel Gel 8. L heel -Combined with other wound No No -Current Size (cm) - Length 1.7 1.5 -Current Size (cm) - Width 2.7 2.4 -Current Size (cm) - Depth 0.5 0.5 -Total Square Cm 4.59 3.60 -Photo Taken Yes Yes -Epithelialization -Tunneling No No -Undermining/Tunneling No No -Circular Undermining No No -Exudate Amt Medium Large -Exudate Type Serosanguineous Serosanguineous -Wound Margin Distinct, Distinct, Outline Outline Attached Attached -Granulation Amt Medium (34-66%) Medium (34-66%) -Granulation Quality [place] -Slough/Fibrin Yes Yes -Necrosis Amt Medium (34-66%) Large (67-100%) -Necrotic Tissue Type Adherent Slough Adherent Slough -Structure Exposed N/A N/A -Texture (Cecelia-wound Skin Appearance) Assessed,Callus Callus -Moisture (Cecelia-wound Skin Appearance) Assessed Assessed -Color (Cecelia-wound Skin Appearance) Assessed Assessed -Temperature (Cecelia-wound Skin No Abnormality No Abnormality Appearance) (Pt Warm) (Pt Warm) -Tenderness on Palpation (Cecelia-wound No No Skin Appearance) -Ulcer Cleansing Wound Cleanser Wound Cleanser -Foul Odor after Cleansing No No -Anesthetic Used 5% Lidocaine 5% Lidocaine Gel Gel WC - Nurse 2 - General Ulcer CM Notes Start: 05/11/22 08:21 Freq: Status: Active Protocol: Activity Type Activity Date Activity User E-sign Co-sign Detail Recorded Client Recorded Date Recorded By Document 05/11/22 08:37 [id number] 05/11/22 08:48 JF Edit Result 05/11/22 08:37 JF (1) [id number] 05/12/22 16:15 PL Document 05/17/22 06:54 PL [id number] 05/17/22 06:55 PL Document 05/18/22 08:34 JF [id number] 05/18/22 08:37 JF Document 05/25/22 08:41 JF [id number] 05/25/22 08:50 JF Edit Result 05/25/22 08:41 JF (2) [id number] 05/25/22 08:52 JF Document 06/01/22 08:39 [id number] 06/01/22 08:44 (4) 8. L heel - Offloading Yes => - Type of Offloading Total Contact Cast => (TCC) - Left ($) => (2) 11-right 5th methead - Time => 08:51 - Correct Patient => Yes - Correct Side, Site, Position => Yes - Correct Procedure => Yes - Procedure Performed => Yes - Type of Procedure => Debridement - Clinical Debridement => Subcutaneous - Tissue Removed => Subcutaneous - Post Debridement (cm) - Length => 0.6 - Post Debridement (cm) - Width => 0.8 - Post Debridement (cm) - Depth => 0.2 - Total Square (Post) (cm) => 0.48 - Area of Debridement (cm) - Length => 0.6 - Area of Debridement (cm) - Width => 0.8 - Total Square (Area) (cm) => 0.48 - Tunneling => No - Undermining/Tunneling => No - Circular Undermining => No - Wound/Ulcer Outcome => Not Healed - Ulcer Cleansing => Rinsed/Irrigated => with Saline - Foul Odor after Cleansing => No - Bioengineered Tissue => No - Bleeding Controlled with => Pressure - Treatment Response => Procedure => Tolerated Well - Offloading => Yes - Type of Offloading => Surgical Shoe - Debridement - Subq, 1st 20sq cm => No 05/11/22 05/17/22 05/18/22 08:37 06:54 08:34 Wound Center Nurse 2 11-right 5th methead -Time -Correct Patient -Correct Side, Site, Position -Correct Procedure -Procedure Performed -Type of Procedure -Clinical Debridement -Tissue Removed -Post Debridement (cm) - Length -Post Debridement (cm) - Width -Post Debridement (cm) - Depth -Total Square (Post) (cm) -Area of Debridement (cm) - Length -Area of Debridement (cm) - Width -Total Square (Area) (cm) -Tunneling -Undermining/Tunneling -Circular Undermining -Wound/Ulcer Outcome -Ulcer Cleansing -Foul Odor after Cleansing -Bioengineered Tissue -Bleeding Controlled with -Treatment Response -Offloading -Type of Offloading -Debridement - Subq, 1st 20sq cm 9. R plantar -Time 08:38 08:34 -Correct Patient Yes -Correct Side, Site, Position Yes Yes -Correct Procedure Yes Yes -Procedure Performed Yes Yes -Type of Procedure Debridement Debridement -Clinical Debridement Subcutaneous Subcutaneous -Tissue Removed Subcutaneous Subcutaneous -Post Debridement (cm) - Length 1.3 1.3 -Post Debridement (cm) - Width 0.8 0.9 -Post Debridement (cm) - Depth 0.3 0.2 -Total Square (Post) (cm) 1.04 1.17 -Area of Debridement (cm) - Length 1.3 1.3 -Area of Debridement (cm) - Width 0.8 0.9 -Total Square (Area) (cm) 1.04 1.17 -Tunneling No No -Undermining/Tunneling No No -Circular Undermining No No -Wound/Ulcer Outcome Not Healed Not Healed -Ulcer Cleansing Rinsed/ Rinsed/ Irrigated with Irrigated with Saline Saline -Foul Odor after Cleansing No No -Bioengineered Tissue No No -Bleeding Controlled with Pressure Pressure -Treatment Response Procedure Procedure Tolerated Well Tolerated Well -Offloading Yes Yes -Type of Offloading Surgical Shoe Total Contact Surgical Shoe Cast (TCC) - Left ($) -Debridement - Subq, 1st 20sq cm Yes Yes 8. L heel -Time 08:38 08:35 -Correct Patient Yes Yes -Correct Side, Site, Position Yes Yes -Correct Procedure Yes Yes -Procedure Performed Yes Yes -Type of Procedure Debridement Debridement -Clinical Debridement Subcutaneous Subcutaneous -Tissue Removed Subcutaneous Subcutaneous -Post Debridement (cm) - Length 3 1.8 -Post Debridement (cm) - Width 2 2.7 -Post Debridement (cm) - Depth 0.3 0.4 -Total Square (Post) (cm) 6 4.86 -Area of Debridement (cm) - Length 3 1.8 -Area of Debridement (cm) - Width 2 2.7 -Total Square (Area) (cm) 6 4.86 -Tunneling No No -Undermining/Tunneling No No -Circular Undermining No No -Wound/Ulcer Outcome Not Healed Not Healed -Ulcer Cleansing Rinsed/ Rinsed/ Irrigated with Irrigated with Saline Saline -Foul Odor after Cleansing No No -Bioengineered Tissue Yes Yes -Type of Bioengineered Tissue Epifix Mesh Epifix Mesh -Expiration Date 12/07/26 03/09/27 -Product Lot Number [id number] -Percent Used 100 100 -Lot number of Saline Used [id number] -Bleeding Controlled with Pressure Pressure -Treatment Response Procedure Procedure Tolerated Well Tolerated Well -Offloading Yes -Type of Offloading Total Contact Cast (TCC) - Left ($) -Debridement - Subq, 1st 20sq cm No No -Apply Skin Sub - 1st 25 sq cm - Feet 1 1 -Epifix (per sq cm) -Epifix Mesh (per sq cm) 11 11 Pain Scale: 0-10 Numeric Is Patient Pain Free? Yes Yes Yes 05/25/22 06/01/22 08:41 08:39 Wound Center Nurse 2 11-right 5th methead -Time 08:51 08:39 -Correct Patient Yes Yes -Correct Side, Site, Position Yes Yes -Correct Procedure Yes Yes -Procedure Performed Yes Yes -Type of Procedure Debridement Debridement -Clinical Debridement Subcutaneous Subcutaneous -Tissue Removed Subcutaneous Subcutaneous -Post Debridement (cm) - Length 0.6 0.2 -Post Debridement (cm) - Width 0.8 0.3 -Post Debridement (cm) - Depth 0.2 0.1 -Total Square (Post) (cm) 0.48 0.06 -Area of Debridement (cm) - Length 0.6 0.2 -Area of Debridement (cm) - Width 0.8 0.3 -Total Square (Area) (cm) 0.48 0.06 -Tunneling No No -Undermining/Tunneling No No -Circular Undermining No No -Wound/Ulcer Outcome Not Healed Not Healed -Ulcer Cleansing Rinsed/ Rinsed/ Irrigated with Irrigated with Saline Saline -Foul Odor after Cleansing No No -Bioengineered Tissue No No -Bleeding Controlled with Pressure Pressure -Treatment Response Procedure Procedure Tolerated Well Tolerated Well -Offloading Yes Yes -Type of Offloading Surgical Shoe Surgical Shoe -Debridement - Subq, 1st 20sq cm No No 9. R plantar -Time 08:42 08:40 -Correct Patient Yes Yes -Correct Side, Site, Position Yes Yes -Correct Procedure Yes Yes -Procedure Performed Yes Yes -Type of Procedure Debridement Debridement -Clinical Debridement Subcutaneous Subcutaneous -Tissue Removed Subcutaneous Subcutaneous -Post Debridement (cm) - Length 1 1.2 -Post Debridement (cm) - Width 0.6 0.7 -Post Debridement (cm) - Depth 0.3 0.3 -Total Square (Post) (cm) 0.6 0.84 -Area of Debridement (cm) - Length 1.0 1.2 -Area of Debridement (cm) - Width 0.6 0.7 -Total Square (Area) (cm) 0.60 0.84 -Tunneling No No -Undermining/Tunneling No No -Circular Undermining No No -Wound/Ulcer Outcome Not Healed Not Healed -Ulcer Cleansing Rinsed/ Rinsed/ Irrigated with Irrigated with Saline Saline -Foul Odor after Cleansing No No -Bioengineered Tissue No No -Bleeding Controlled with Pressure Pressure -Treatment Response Procedure Procedure Tolerated Well Tolerated Well -Offloading Yes Yes -Type of Offloading Surgical Shoe Surgical Shoe -Debridement - Subq, 1st 20sq cm Yes Yes 8. L heel -Time 08:42 08:40 -Correct Patient Yes Yes -Correct Side, Site, Position Yes Yes -Correct Procedure Yes Yes -Procedure Performed Yes Yes -Type of Procedure Debridement Debridement -Clinical Debridement Subcutaneous Subcutaneous -Tissue Removed Subcutaneous Subcutaneous -Post Debridement (cm) - Length 1.8 1.5 -Post Debridement (cm) - Width 2.8 2.5 -Post Debridement (cm) - Depth 0.5 0.5 -Total Square (Post) (cm) 5.04 3.75 -Area of Debridement (cm) - Length 1.8 1.5 -Area of Debridement (cm) - Width 2.8 2.5 -Total Square (Area) (cm) 5.04 3.75 -Tunneling No No -Undermining/Tunneling No No -Circular Undermining No No -Wound/Ulcer Outcome Not Healed Not Healed -Ulcer Cleansing Rinsed/ Rinsed/ Irrigated with Irrigated with Saline Saline -Foul Odor after Cleansing No No -Bioengineered Tissue Yes Yes -Type of Bioengineered Tissue Epifix Epifix Mesh -Expiration Date 02/06/27 03/09/27 -Product Lot Number [id number] -Percent Used 100 100 -Lot number of Saline Used [id number] -Bleeding Controlled with Pressure Pressure -Treatment Response Procedure Procedure Tolerated Well Tolerated Well -Offloading Yes Yes -Type of Offloading Total Contact Total Contact Cast (TCC) - Cast (TCC) - Left ($) Left ($) -Debridement - Subq, 1st 20sq cm No No -Apply Skin Sub - 1st 25 sq cm - Feet 1 1 -Epifix (per sq cm) 4 -Epifix Mesh (per sq cm) 11 Pain Scale: 0-10 Numeric Is Patient Pain Free? Yes Yes WC - Nurse 3 - General Ulcer D/C NN Start: 05/11/22 08:21 Freq: Status: Active Protocol: Activity Type Activity Date Activity User E-sign Co-sign Detail Recorded Client Recorded Date Recorded By Document 05/11/22 08:49 [facility] [id number] 05/11/22 08:52 BMF Document 05/16/22 10:58 DL [id number] 05/16/22 11:00 DL Document 05/18/22 08:51 [facility] [id number] 05/18/22 08:52 BMF Document 05/25/22 09:09 RB Desktop 05/25/22 09:10 RB Document 06/01/22 09:00 RB [id number] 06/01/22 09:01 RB 05/11/22 05/16/22 05/18/22 08:49 10:58 08:51 Wound Care Nurse 3 11-right 5th methead -Primary Dressing Applied -Primary Dressing Covered/Secured with -Promogran Michael Matter 9. R plantar -Ulcer Cleansing Rinsed/ Rinsed/ Irrigated with Irrigated with Saline Saline -Foul Odor after Cleansing No No -Primary Dressing Applied Aquacel Extra Aquacel Extra Aquacel Extra -Other Dressing EPIMESH drsg per jf rn -Primary Dressing Covered/Secured with Dry Gauze & Dry Gauze & Dry Gauze, Roll Gauze, Roll Gauze, Secured with Secured with Secured with Tape Tape Tape -Other Covering DRSG PER DL MERCHANDISING REPRESENTATIVE -Aquacel Extra 1 1 1 8. L heel -Ulcer Cleansing Rinsed/ Irrigated with Saline -Foul Odor after Cleansing No -Primary Dressing Applied Aquacel Extra -Other Dressing EPIMESH, TOPPED aquacel extra epimesh, drymax W/ AQUACEL EXTRA -Primary Dressing Covered/Secured with Dry Gauze Dry Gauze, Secured with Tape -Other Covering TCC UNDERCAST foam/ TCC tcc undercast SIZE 3, DRSGS Casting PER DL MERCHANDISING REPRESENTATIVE -Aquacel Extra 0 -Promogran Michael Matter Treatment Response Procedure Procedure Procedure Tolerated Well Tolerated Well Tolerated Well Pain Scale: 0-10 Numeric Is Patient Pain Free? Yes Yes Yes WC - Visit Discharge Discharge Condition Stable Stable Stable Ambulatory Status Ambulatory Ambulatory Ambulatory Transportation Private Auto Private Auto Private Auto Medication Reconcilliation completed & provided to patient/care provider Clinical Summary of Care Provided 05/25/22 06/01/22 09:09 09:00 Wound Care Nurse 3 11-right 5th methead -Primary Dressing Applied Promogran Michael Matter -Primary Dressing Covered/Secured with Dry Gauze,Dry Dry Gauze,Dry Gauze & Roll Gauze & Roll Gauze,Secured Gauze,Secured with Tape with Tape -Promogran Michael Matter 1 9. R plantar -Ulcer Cleansing -Foul Odor after Cleansing -Primary Dressing Applied -Other Dressing michael abd -Primary Dressing Covered/Secured with Dry Gauze,Dry Dry Gauze,Dry Gauze & Roll Gauze & Roll Gauze,Secured Gauze,Secured with Tape with Tape -Other Covering -Aquacel Extra 8. L heel -Ulcer Cleansing -Foul Odor after Cleansing -Primary Dressing Applied -Other Dressing primary layer primary layer of TCC applied of TCC applied -Primary Dressing Covered/Secured with Secured with Tape -Other Covering -Aquacel Extra -Promogran Michael Matter 1 Treatment Response Procedure Tolerated Well Pain Scale: 0-10 Numeric Is Patient Pain Free? Yes Yes WC - Visit Discharge Discharge Condition Stable Ambulatory Status Ambulatory Transportation Private Auto Medication Reconcilliation completed & No provided to patient/care provider Clinical Summary of Care Provided Yes Assessment/Plan Assessment/Plan (1) Ulcer of right foot with fat layer exposed: CODE(S): L97.512 - Non-pressure chronic ulcer of other part of right foot with fat layer exposed (2) Ulcer of left foot with fat layer exposed: CODE(S): L97.522 - Non-pressure chronic ulcer of other part of left foot with fat layer exposed (3) Delayed wound healing: CODE(S): T14.8XXD - Other injury of unspecified body region, subsequent encounter PLAN: Plan I?reviewed and discussed her case.? Subcutaneous excisional debridement was performed as noted in the clinical panel bilateral. Diagnostic data was also reviewed. The following recommendations were made. Change dressing daily with Michael to the right few daily.? Advance wound healing product: I recommend application of epi fix to optimize healing.? The benefits and indications were reviewed and also expected management use.? Prior authorization was obtained.? This is medically necessary for limb salvage for the left heel ulcer.? She is at risk for amputation and limb loss and further infections.? Verbal consent was obtained and this was applied according standard protocol to the left heel.? This was further secured with a wound veil and Steri-Strips.? 100% of the product was utilized.? She tolerated this well.? To keep clean, dry, and intact until follow-up next week. offloading: To maintain strict nonweightbearing status with the knee roller, left with total contact cast and heel weightbear right in surgical shoe.? Total contact cast was applied today according to standard protocol (left) in a well- padded in neutral position after verbal consent was obtained. She tolerated this well and will keep this clean, dry, and intact.? Verbal consent was obtained prior to application and she will keep this clean and dry and intact as well.? Her right foot surgical shoe was evaluated and I updated her offloading dual density Plastizote liners to take pressure off of her subfirst metatarsal head site.? She was still encouraged not to do routine walking with this device to optimize healing. Infection:? 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 Concern is deeper infection involvement due to bulbous toe appearance including potential osteomyelitis.? She has been taking doxycycline with some mild improvement however this is in regards to reduced erythema.? It is noted she has continued communication with deep structures including the bone and there was bone that was debrided today from the left second toe.? Infectious disease specialist, Dr. Reyes also saw and evaluated her today and input is greatly appreciated.? She was advised to continue doxycycline and Augmentin will also be added to her regimen.? She understands amputation will be recommended if she fails oral antibiotic treatment course of at least 6 weeks. ID recs appreciated.? Improvement noted and infection resolved. nutrition: She was advised to maintain a balanced whole food diet with adequate protein and nutrients to optimize healing.? To resume Yosvany supplementation use. ? Host factors. Neuropathy complicates her case. To monitor close due to inability to sensate as normal.? She was also advised to avoid prednisone use and will also hold the Plaquenil at this time unless she has an intense flareup.? This was previously reviewed verbally with Dr. Pratt.? ? She also has a calcaneus gait with prior surgical intervention including a tendon transfer which is compromised with a fall in the early postoperative setting.? We previously discussed options to surgically alleviate her calcaneus gait including retightening the Achilles tendon or other posterior leg muscles.? Updated vascular (arterial) and doppler with reflux (venous) was ordered to assess for any abnormalities.? The arterial studies were reviewed and no arterial disease or occlusions were identified. ? Venous insufficiency work-up is still pending. Diagnostic data: Her bilateral foot xrays (three views) were reviewed from 04-06-2022 without soft tissue emphysema, osseous destruction or foreign body.? Chip fracture to medial proximal phalanx base unchanged noted to the right foot without additional osseous destruction.? Labs reviewed from 02/15/22 with wbc 9.4, no renal dysfunction or other gross abnormalities. Note: [employer] speech recognition backroom associate software was used to create portions of this document. Sound-alike and misspelled words, as well as other backroom associate errors may be contained in the documentation. ?
[2022-06-08 08:41] VITALS: BP 152/90; PULSE 100; RESP 18; TEMP 36.1; BMI 37.2
--- NOTE | 2022-06-08 09:28 | PCM.WC.PN ---
History of Present Illness Date of Service: 06/08/22 Chief Complaint: Left heel ulcer right foot ulcers History of Wound: This pleasant 56-year-old female with significant past medical history of lupus, history of panic attack, depression, history of delayed healing, hyperlipidemia, irritable bowel syndrome, memory loss, restless leg syndrome, and obstructive sleep apnea is here for follow-up of left heel and right foot ulcers. She is ready for total contact cast application again today. She wears an offloading shoe to the right foot also for two ulcer sites. She denies fever, chill, nausea, vomiting, or other illness. Progress of Wound: Left heel and right foot ulcers are improving Objective Data Objective Data Vital Signs: Vital Signs Temp Pulse Resp BP O2 Del Method 97 F L 100 18 152/90 H Room Air 06/08/22 08:41 06/08/22 08:41 06/08/22 08:41 06/08/22 08:41 05/18/22 08:03 Oxygen Delivery Method Room Air Weight: 111.13 kg Body Mass Index (BMI) 37.2 Physical Exam Const alert and oriented x3 General Appearance: cooperative Extremity normal capillary refill and no calf tenderness Extremity Narrative: Bilateral pedal pulses palpable but diminished. +1 edema bilateral lower extremities. Skin color pink, with no pain or tenderness with palpation. Skin Wound Narrative: Left heel ulcer is beefy pink granulation tissue. No purulent drainage, no odor, no signs of infection. Right plantar ulcer, medial to 1st metatarsal head and also plantar lateral foot with base of ulcer beefy pink granulation tissue. left heel reduced size with 100% healthy granular base also. no maceration bilateral Debridement Note Debridement Note Wound debrided: left heel, right plantar medial and lateral foot Type of Debridement: Excisional debridement Anesthesia Used: 5% Lidocaine Gel Depth: Down to and including healthy tissue and in the subcutaneous layer Percentage of wound debrided: 100 Tissue Removed: Non viable tissue and slough Severity: Fat Layer Exposed Amount of bleeding with debridement: Mild Bleeding Controlled with: Pressure and Compression and gauze Patient tolerated procedure: Patient tolerated procedure well Post-Debridement Measurements and Additional Note: Post-Debridement Measurements/Treatment ARACELI - Nurse 1 - General Ulcer Assessment Start: 05/11/22 08:21 Freq: Status: Active Protocol: OLGA Activity Type Activity Date Activity User E-sign Co-sign Detail Recorded Client Recorded Date Recorded By Document 05/11/22 08:21 RB [id number] 05/11/22 08:28 RB Document 05/16/22 09:55 DL [id number] 05/16/22 10:06 DL Document 05/18/22 08:03 BMF [id number] 05/18/22 08:13 BMF Document 05/25/22 08:27 RB Desktop 05/25/22 08:30 RB Document 06/01/22 08:17 RB [id number] 06/01/22 08:25 RB Document 06/08/22 08:41 RB [id number] 06/08/22 08:51 RB 05/11/22 05/16/22 05/18/22 08:21 09:55 08:03 WC - Today's Visit Information Type of service Follow-up Visit Follow-up Visit Follow-up Visit (Physician/[facility] (Physician/[facility] (Physician/[facility] ) ) ) Arrival Mode Ambulatory Ambulatory Ambulatory Transfer Assistance None None Patient Identification Verified (Name & Yes Yes Yes ) Patient Requires Transmission-Based No No Precautions Height and Weight Body Mass Index (BMI) 37.2 37.2 37.2 BMI Classification Obese Obese Obese Vital Signs Temperature (97.8 F-99.1 F) 96.4 F L 97.2 F L Temperature Source Temporal Temporal Pulse Rate (60-100) 103 H 101 H Pulse Location Monitor Monitor Monitor Respiratory Rate (12-18) 12 16 Respiratory rate source Observation Observation Oxygen Delivery Method Room Air Blood Pressure (90/60-120/80) 136/84 H 116/74 129/82 H Blood Pressure Mean (mm Hg) 101 88 97 Source Monitor Monitor Monitor Position Sitting Sitting Sitting Blood Pressure Location Left Arm Left Arm Left Arm History Since Last Visit- (Skip if this is Patient's initial visit) Have you changed medications since your No No No last visit? Any new allergies or adverse reactions No No No Had a fall/change in ADL's that may No No No increase risk of falls Signs or symptoms of abuse and/or No No No neglect since last visit Have you been in the hospital since your No No No last visit? Has dressing in place as prescribed Yes Yes Yes Has compression in place as prescribed No N/A N/A Has offloadiing in place as prescribed Yes Yes Yes Experienced any changes in pain level or No No No management Left Footwear Total Contact Removable Cast Total Contact Cast Walker/Walking Cast Boot Right Footwear Surgical Shoe Regular Shoe Regular Shoe with pressure relief insole Pain Scale: 0-10 Numeric Is Patient Pain Free? Yes Yes Yes 05/25/22 06/01/22 06/08/22 08:27 08:17 08:41 - Today's Visit Information Type of service Follow-up Visit Follow-up Visit Follow-up Visit (Physician/[facility] (Physician/[facility] (Physician/[facility]ENER [facility] ) ) ) Arrival Mode Ambulatory Ambulatory Ambulatory Transfer Assistance None None None Patient Identification Verified (Name & Yes Yes Yes ) Patient Requires Transmission-Based No No No Precautions Height and Weight Body Mass Index (BMI) 37.2 37.2 37.2 BMI Classification Obese Obese Obese Vital Signs Temperature (97.8 F-99.1 F) 96.8 F L 97 F L 97 F L Temperature Source Temporal Temporal Temporal Pulse Rate (60-100) 97 101 H 100 Pulse Location Monitor Monitor Monitor Respiratory Rate (12-18) 18 18 18 Respiratory rate source Observation Observation Observation Oxygen Delivery Method Blood Pressure (90/60-120/80) 131/80 H 124/70 H 152/90 H Blood Pressure Mean (mm Hg) 97 88 110 Source Monitor Monitor Monitor Position Semi-Fowlers Sitting Sitting Blood Pressure Location Left Arm Left Arm Left Arm History Since Last Visit- (Skip if this is Patient's initial visit) Have you changed medications since your No No No last visit? Any new allergies or adverse reactions No No No Had a fall/change in ADL's that may No No No increase risk of falls Signs or symptoms of abuse and/or No No No neglect since last visit Have you been in the hospital since your No No No last visit? Has dressing in place as prescribed Yes Yes Yes Has compression in place as prescribed No No No Has offloadiing in place as prescribed Yes Yes Yes Experienced any changes in pain level or No No No management Left Footwear Total Contact Total Contact Total Contact Cast Cast Cast Right Footwear Regular Shoe Surgical Shoe Surgical Shoe with pressure with pressure relief insole relief insole Pain Scale: 0-10 Numeric Is Patient Pain Free? Yes Yes Yes - Nurse 1 - General Ulcer Measurement Start: 05/11/22 08:21 Freq: Status: Active Protocol: Activity Type Activity Date Activity User E-sign Co-sign Detail Recorded Client Recorded Date Recorded By Document 05/11/22 08:21 RB [id number] 05/11/22 08:28 RB Document 05/16/22 09:55 DL [id number] 05/16/22 10:06 DL Document 05/18/22 08:03 BMF [id number] 05/18/22 08:13 BMF Document 05/25/22 08:27 RB Desktop 05/25/22 08:30 RB Document 06/01/22 08:17 RB [id number] 06/01/22 08:25 RB Document 06/08/22 08:41 RB [id number] 06/08/22 08:51 RB 05/11/22 05/16/22 05/18/22 08:21 09:55 08:03 Wound Center Nurse 1 11-right 5th methead -Combined with other wound -Current Size (cm) - Length -Current Size (cm) - Width -Current Size (cm) - Depth -Total Square Cm -Photo Taken -Tunneling -Undermining/Tunneling -Circular Undermining -Exudate Amt -Exudate Type -Wound Margin -Granulation Amt -Granulation Quality -Slough/Fibrin -Necrosis Amt -Necrotic Tissue Type -Structure Exposed -Texture (Cecelia-wound Skin Appearance) -Moisture (Cecelia-wound Skin Appearance) -Color (Cecelia-wound Skin Appearance) -Temperature (Cecelia-wound Skin Appearance) -Tenderness on Palpation (Cecelia-wound Skin Appearance) -Ulcer Cleansing -Foul Odor after Cleansing -Anesthetic Used 9. R plantar -Combined with other wound No -Current Size (cm) - Length 1.2 0.6 1.3 -Current Size (cm) - Width 0.8 0.9 0.8 -Current Size (cm) - Depth 0.4 0.3 0.2 -Total Square Cm 0.96 0.54 1.04 -Photo Taken Yes No -Epithelialization Small 1-33% -Tunneling No No -Undermining/Tunneling No No -Circular Undermining No No -Exudate Amt Medium Medium Small -Exudate Type Serosanguineous Serosanguineous Serosanguineous -Wound Margin Distinct, Distinct, Thickened Outline Outline Attached Attached -Granulation Amt Medium (34-66%) Large (67-100%) Large (67-100%) -Granulation Quality [place] Red -Slough/Fibrin Yes Yes -Necrosis Amt Medium (34-66%) None Present (0 Small (1-33%) %) -Necrotic Tissue Type Adherent Slough Adherent Slough -Structure Exposed N/A -Texture (Cecelia-wound Skin Appearance) Callus Assessed, Assessed,Callus Scarring -Moisture (Cecelia-wound Skin Appearance) Assessed No Abnormality, Assessed,Dry/ Assessed Scaly -Color (Cecelia-wound Skin Appearance) No Abnormality, Assessed Assessed -Temperature (Cecelia-wound Skin No Abnormality No Abnormality No Abnormality Appearance) (Pt Warm) (Pt Warm) (Pt Warm) -Tenderness on Palpation (Cecelia-wound No No No Skin Appearance) -Ulcer Cleansing Wound Cleanser Soap and Water Rinsed/ Irrigated with Saline -Foul Odor after Cleansing No No No -Anesthetic Used 5% Lidocaine 5% Lidocaine 5% Lidocaine Gel Gel Gel 8. L heel -Combined with other wound No No -Current Size (cm) - Length 2.3 1.8 1.8 -Current Size (cm) - Width 2.9 2.8 2.6 -Current Size (cm) - Depth 0.7 0.6 0.4 -Total Square Cm 6.67 5.04 4.68 -Photo Taken Yes No -Epithelialization Small 1-33% -Tunneling No No -Undermining/Tunneling No No -Circular Undermining No No -Exudate Amt Medium Large Large -Exudate Type Serosanguineous Serosanguineous Serosanguineous -Wound Margin Thickened Distinct, Distinct, Outline Outline Attached Attached -Granulation Amt Medium (34-66%) Large (67-100%) Large (67-100%) -Granulation Quality [place] Red Pale,Red -Slough/Fibrin Yes Yes -Necrosis Amt Medium (34-66%) None Present (0 Small (1-33%) %) -Necrotic Tissue Type Adherent Slough Adherent Slough -Structure Exposed N/A -Texture (Cecelia-wound Skin Appearance) Callus Assessed, Assessed Scarring -Moisture (Cecelia-wound Skin Appearance) Assessed Assessed, Assessed,Dry/ Maceration Scaly -Color (Cecelia-wound Skin Appearance) Assessed No Abnormality, Assessed Assessed -Temperature (Cecelia-wound Skin No Abnormality No Abnormality No Abnormality Appearance) (Pt Warm) (Pt Warm) (Pt Warm) -Tenderness on Palpation (Cecelia-wound No No No Skin Appearance) -Ulcer Cleansing Wound Cleanser Soap and Water Soap and Water -Foul Odor after Cleansing No No No -Anesthetic Used 5% Lidocaine 5% Lidocaine 5% Lidocaine Gel Gel Gel 05/25/22 06/01/22 06/08/22 08:27 08:17 08:41 Wound Center Nurse 1 11-right 5th methead -Combined with other wound No No -Current Size (cm) - Length 0.1 0.2 -Current Size (cm) - Width 0.1 0.4 -Current Size (cm) - Depth 0.1 0.3 -Total Square Cm 0.01 0.08 -Photo Taken Yes Yes -Tunneling No No -Undermining/Tunneling No No -Circular Undermining No No -Exudate Amt Small Medium -Exudate Type Serosanguineous Serosanguineous -Wound Margin Distinct, Thickened Outline Attached -Granulation Amt Medium (34-66%) Medium (34-66%) -Granulation Quality [place] -Slough/Fibrin Yes Yes -Necrosis Amt Small (1-33%) Small (1-33%) -Necrotic Tissue Type Adherent Slough Adherent Slough -Structure Exposed N/A N/A -Texture (Cecelia-wound Skin Appearance) Assessed,Callus Callus -Moisture (Cecelia-wound Skin Appearance) Assessed Assessed -Color (Cecelia-wound Skin Appearance) Assessed Assessed -Temperature (Cecelia-wound Skin No Abnormality No Abnormality Appearance) (Pt Warm) (Pt Warm) -Tenderness on Palpation (Cecelia-wound No No Skin Appearance) -Ulcer Cleansing Wound Cleanser Wound Cleanser -Foul Odor after Cleansing No No -Anesthetic Used 5% Lidocaine 5% Lidocaine Gel Gel 9. R plantar -Combined with other wound No No No -Current Size (cm) - Length 0.9 1.2 0.9 -Current Size (cm) - Width 0.6 0.6 0.9 -Current Size (cm) - Depth 0.3 0.3 0.5 -Total Square Cm 0.54 0.72 0.81 -Photo Taken Yes Yes Yes -Epithelialization -Tunneling No No No -Undermining/Tunneling No No No -Circular Undermining No No No -Exudate Amt Medium Large Medium -Exudate Type Serosanguineous Serosanguineous Serosanguineous -Wound Margin Thickened Thickened & Thickened Rolled Under -Granulation Amt Medium (34-66%) Medium (34-66%) Medium (34-66%) -Granulation Quality [place] -Slough/Fibrin Yes Yes Yes -Necrosis Amt Medium (34-66%) Large (67-100%) Medium (34-66%) -Necrotic Tissue Type Adherent Slough Adherent Slough Adherent Slough -Structure Exposed N/A N/A N/A -Texture (Cecelia-wound Skin Appearance) Callus Assessed,Callus Assessed,Callus -Moisture (Cecelia-wound Skin Appearance) Assessed Assessed Assessed -Color (Cecelia-wound Skin Appearance) Assessed Assessed Assessed -Temperature (Cecelia-wound Skin No Abnormality No Abnormality No Abnormality Appearance) (Pt Warm) (Pt Warm) (Pt Warm) -Tenderness on Palpation (Cecelia-wound No No No Skin Appearance) -Ulcer Cleansing Wound Cleanser Wound Cleanser Wound Cleanser -Foul Odor after Cleansing No No No -Anesthetic Used 5% Lidocaine 5% Lidocaine 5% Lidocaine Gel Gel Gel 8. L heel -Combined with other wound No No No -Current Size (cm) - Length 1.7 1.5 1.2 -Current Size (cm) - Width 2.7 2.4 2.5 -Current Size (cm) - Depth 0.5 0.5 0.7 -Total Square Cm 4.59 3.60 3.00 -Photo Taken Yes Yes Yes -Epithelialization -Tunneling No No No -Undermining/Tunneling No No No -Circular Undermining No No No -Exudate Amt Medium Large Medium -Exudate Type Serosanguineous Serosanguineous Serosanguineous -Wound Margin Distinct, Distinct, Thickened Outline Outline Attached Attached -Granulation Amt Medium (34-66%) Medium (34-66%) Medium (34-66%) -Granulation Quality [place] -Slough/Fibrin Yes Yes Yes -Necrosis Amt Medium (34-66%) Large (67-100%) Medium (34-66%) -Necrotic Tissue Type Adherent Slough Adherent Slough -Structure Exposed N/A N/A N/A -Texture (Cecelia-wound Skin Appearance) Assessed,Callus Callus Callus -Moisture (Cecelia-wound Skin Appearance) Assessed Assessed Assessed -Color (Cecelia-wound Skin Appearance) Assessed Assessed Assessed -Temperature (Cecelia-wound Skin No Abnormality No Abnormality No Abnormality Appearance) (Pt Warm) (Pt Warm) (Pt Warm) -Tenderness on Palpation (Cecelia-wound No No No Skin Appearance) -Ulcer Cleansing Wound Cleanser Wound Cleanser Wound Cleanser -Foul Odor after Cleansing No No No -Anesthetic Used 5% Lidocaine 5% Lidocaine 5% Lidocaine Gel Gel Gel WC - Nurse 2 - General Ulcer CM Notes Start: 05/11/22 08:21 Freq: Status: Active Protocol: Activity Type Activity Date Activity User E-sign Co-sign Detail Recorded Client Recorded Date Recorded By Document 05/11/22 08:37 JF [id number] 05/11/22 08:48 JF Edit Result 05/11/22 08:37 JF (1) [id number] 05/12/22 16:15 PL Document 05/17/22 06:54 PL [id number] 05/17/22 06:55 PL Document 05/18/22 08:34 JF [id number] 05/18/22 08:37 JF Document 05/25/22 08:41 JF [id number] 05/25/22 08:50 JF Edit Result 05/25/22 08:41 JF (2) [id number] 05/25/22 08:52 JF Document 06/01/22 08:39 JF [id number] 06/01/22 08:44 JF Document 06/08/22 08:57 JF [id number] 06/08/22 09:03 JF (1) 8. L heel - Offloading Yes => - Type of Offloading Total Contact Cast => (TCC) - Left ($) => (2) 11-right 5th methead - Time => 08:51 - Correct Patient => Yes - Correct Side, Site, Position => Yes - Correct Procedure => Yes - Procedure Performed => Yes - Type of Procedure => Debridement - Clinical Debridement => Subcutaneous - Tissue Removed => Subcutaneous - Post Debridement (cm) - Length => 0.6 - Post Debridement (cm) - Width => 0.8 - Post Debridement (cm) - Depth => 0.2 - Total Square (Post) (cm) => 0.48 - Area of Debridement (cm) - Length => 0.6 - Area of Debridement (cm) - Width => 0.8 - Total Square (Area) (cm) => 0.48 - Tunneling => No - Undermining/Tunneling => No - Circular Undermining => No - Wound/Ulcer Outcome => Not Healed - Ulcer Cleansing => Rinsed/Irrigated => with Saline - Foul Odor after Cleansing => No - Bioengineered Tissue => No - Bleeding Controlled with => Pressure - Treatment Response => Procedure => Tolerated Well - Offloading => Yes - Type of Offloading => Surgical Shoe - Debridement - Subq, 20sq cm => No 05/11/22 05/17/22 05/18/22 08:37 06:54 08:34 Wound Center Nurse 2 11-right 5th methead -Time -Correct Patient -Correct Side, Site, Position -Correct Procedure -Procedure Performed -Type of Procedure -Clinical Debridement -Tissue Removed -Post Debridement (cm) - Length -Post Debridement (cm) - Width -Post Debridement (cm) - Depth -Total Square (Post) (cm) -Area of Debridement (cm) - Length -Area of Debridement (cm) - Width -Total Square (Area) (cm) -Tunneling -Undermining/Tunneling -Circular Undermining -Wound/Ulcer Outcome -Ulcer Cleansing -Foul Odor after Cleansing -Bioengineered Tissue -Bleeding Controlled with -Treatment Response -Offloading -Type of Offloading -Debridement - Subq, 20sq cm 9. R plantar -Time 08:38 08:34 -Correct Patient Yes -Correct Side, Site, Position Yes Yes -Correct Procedure Yes Yes -Procedure Performed Yes Yes -Type of Procedure Debridement Debridement -Clinical Debridement Subcutaneous Subcutaneous -Tissue Removed Subcutaneous Subcutaneous -Post Debridement (cm) - Length 1.3 1.3 -Post Debridement (cm) - Width 0.8 0.9 -Post Debridement (cm) - Depth 0.3 0.2 -Total Square (Post) (cm) 1.04 1.17 -Area of Debridement (cm) - Length 1.3 1.3 -Area of Debridement (cm) - Width 0.8 0.9 -Total Square (Area) (cm) 1.04 1.17 -Tunneling No No -Undermining/Tunneling No No -Circular Undermining No No -Wound/Ulcer Outcome Not Healed Not Healed -Ulcer Cleansing Rinsed/ Rinsed/ Irrigated with Irrigated with Saline Saline -Foul Odor after Cleansing No No -Bioengineered Tissue No No -Bleeding Controlled with Pressure Pressure -Treatment Response Procedure Procedure Tolerated Well Tolerated Well -Offloading Yes Yes -Type of Offloading Surgical Shoe Total Contact Surgical Shoe Cast (TCC) - Left ($) -Debridement - Subq, 1st 20sq cm Yes Yes 8. L heel -Time 08:38 08:35 -Correct Patient Yes Yes -Correct Side, Site, Position Yes Yes -Correct Procedure Yes Yes -Procedure Performed Yes Yes -Type of Procedure Debridement Debridement -Clinical Debridement Subcutaneous Subcutaneous -Tissue Removed Subcutaneous Subcutaneous -Post Debridement (cm) - Length 3 1.8 -Post Debridement (cm) - Width 2 2.7 -Post Debridement (cm) - Depth 0.3 0.4 -Total Square (Post) (cm) 6 4.86 -Area of Debridement (cm) - Length 3 1.8 -Area of Debridement (cm) - Width 2 2.7 -Total Square (Area) (cm) 6 4.86 -Tunneling No No -Undermining/Tunneling No No -Circular Undermining No No -Wound/Ulcer Outcome Not Healed Not Healed -Ulcer Cleansing Rinsed/ Rinsed/ Irrigated with Irrigated with Saline Saline -Foul Odor after Cleansing No No -Bioengineered Tissue Yes Yes -Type of Bioengineered Tissue Epifix Mesh Epifix Mesh -Expiration Date 12/07/26 03/09/27 -Product Lot Number [id number] -Percent Used 100 100 -Lot number of Saline Used [id number] -Bleeding Controlled with Pressure Pressure -Treatment Response Procedure Procedure Tolerated Well Tolerated Well -Offloading Yes -Type of Offloading Total Contact Cast (TCC) - Left ($) -Debridement - Subq, 1st 20sq cm No No -Apply Skin Sub - 1st 25 sq cm - Feet 1 1 -Epifix (per sq cm) -Epifix Mesh (per sq cm) 11 11 Pain Scale: 0-10 Numeric Is Patient Pain Free? Yes Yes Yes 05/25/22 06/01/22 06/08/22 08:41 08:39 08:57 Wound Center Nurse 2 11-right 5th methead -Time 08:51 08:39 08:57 -Correct Patient Yes Yes Yes -Correct Side, Site, Position Yes Yes Yes -Correct Procedure Yes Yes Yes -Procedure Performed Yes Yes Yes -Type of Procedure Debridement Debridement Debridement -Clinical Debridement Subcutaneous Subcutaneous Subcutaneous -Tissue Removed Subcutaneous Subcutaneous Subcutaneous -Post Debridement (cm) - Length 0.6 0.2 0.3 -Post Debridement (cm) - Width 0.8 0.3 0.4 -Post Debridement (cm) - Depth 0.2 0.1 0.2 -Total Square (Post) (cm) 0.48 0.06 0.12 -Area of Debridement (cm) - Length 0.6 0.2 0.3 -Area of Debridement (cm) - Width 0.8 0.3 0.4 -Total Square (Area) (cm) 0.48 0.06 0.12 -Tunneling No No No -Undermining/Tunneling No No No -Circular Undermining No No No -Wound/Ulcer Outcome Not Healed Not Healed Not Healed -Ulcer Cleansing Rinsed/ Rinsed/ Rinsed/ Irrigated with Irrigated with Irrigated with Saline Saline Saline -Foul Odor after Cleansing No No No -Bioengineered Tissue No No No -Bleeding Controlled with Pressure Pressure Pressure -Treatment Response Procedure Procedure Procedure Tolerated Well Tolerated Well Tolerated Well -Offloading Yes Yes Yes -Type of Offloading Surgical Shoe Surgical Shoe Surgical Shoe -Debridement - Subq, 1st 20sq cm No No Yes 9. R plantar -Time 08:42 08:40 08:57 -Correct Patient Yes Yes Yes -Correct Side, Site, Position Yes Yes Yes -Correct Procedure Yes Yes Yes -Procedure Performed Yes Yes Yes -Type of Procedure Debridement Debridement Debridement -Clinical Debridement Subcutaneous Subcutaneous Subcutaneous -Tissue Removed Subcutaneous Subcutaneous Subcutaneous -Post Debridement (cm) - Length 1 1.2 1 -Post Debridement (cm) - Width 0.6 0.7 0.9 -Post Debridement (cm) - Depth 0.3 0.3 0.4 -Total Square (Post) (cm) 0.6 0.84 0.9 -Area of Debridement (cm) - Length 1.0 1.2 1.0 -Area of Debridement (cm) - Width 0.6 0.7 0.9 -Total Square (Area) (cm) 0.60 0.84 0.90 -Tunneling No No No -Undermining/Tunneling No No No -Circular Undermining No No No -Wound/Ulcer Outcome Not Healed Not Healed Not Healed -Ulcer Cleansing Rinsed/ Rinsed/ Rinsed/ Irrigated with Irrigated with Irrigated with Saline Saline Saline -Foul Odor after Cleansing No No No -Bioengineered Tissue No No No -Bleeding Controlled with Pressure Pressure Pressure -Treatment Response Procedure Procedure Procedure Tolerated Well Tolerated Well Tolerated Well -Offloading Yes Yes Yes -Type of Offloading Surgical Shoe Surgical Shoe Surgical Shoe -Debridement - Subq, 1st 20sq cm Yes Yes No 8. L heel -Time 08:42 08:40 08:58 -Correct Patient Yes Yes Yes -Correct Side, Site, Position Yes Yes Yes -Correct Procedure Yes Yes Yes -Procedure Performed Yes Yes Yes -Type of Procedure Debridement Debridement Debridement -Clinical Debridement Subcutaneous Subcutaneous Subcutaneous -Tissue Removed Subcutaneous Subcutaneous Subcutaneous -Post Debridement (cm) - Length 1.8 1.5 1.2 -Post Debridement (cm) - Width 2.8 2.5 0.6 -Post Debridement (cm) - Depth 0.5 0.5 0.7 -Total Square (Post) (cm) 5.04 3.75 0.72 -Area of Debridement (cm) - Length 1.8 1.5 1.2 -Area of Debridement (cm) - Width 2.8 2.5 0.6 -Total Square (Area) (cm) 5.04 3.75 0.72 -Tunneling No No No -Undermining/Tunneling No No No -Circular Undermining No No No -Wound/Ulcer Outcome Not Healed Not Healed Not Healed -Ulcer Cleansing Rinsed/ Rinsed/ Rinsed/ Irrigated with Irrigated with Irrigated with Saline Saline Saline -Foul Odor after Cleansing No No No -Bioengineered Tissue Yes Yes Yes -Type of Bioengineered Tissue Epifix Epifix Mesh Epifix -Expiration Date 02/06/27 03/09/27 03/09/27 -Product Lot Number [id number] -Percent Used 100 100 100 -Lot number of Saline Used [id number] -Bleeding Controlled with Pressure Pressure Pressure -Treatment Response Procedure Procedure Procedure Tolerated Well Tolerated Well Tolerated Well -Offloading Yes Yes Yes -Type of Offloading Total Contact Total Contact Total Contact Cast (TCC) - Cast (TCC) - Cast (TCC) - Left ($) Left ($) Left ($) -Debridement - Subq, 1st 20sq cm No No No -Apply Skin Sub - 1st 25 sq cm - Feet 1 1 1 -Epifix (per sq cm) 4 4 -Epifix Mesh (per sq cm) 11 Pain Scale: 0-10 Numeric Is Patient Pain Free? Yes Yes Yes - Nurse 3 - General Ulcer D/C NN Start: 05/11/22 08:21 Freq: Status: Active Protocol: Activity Type Activity Date Activity User E-sign Co-sign Detail Recorded Client Recorded Date Recorded By Document 05/11/22 08:49 [facility] [id number] 05/11/22 08:52 [facility] Document 05/16/22 10:58 DL [id number] 05/16/22 11:00 DL Document 05/18/22 08:51 [facility] [id number] 05/18/22 08:52 [facility] Document 05/25/22 09:09 RB Desktop 05/25/22 09:10 RB Document 06/01/22 09:00 RB [id number] 06/01/22 09:01 RB 05/11/22 05/16/22 05/18/22 08:49 10:58 08:51 Wound Care Nurse 3 11-right 5th methead -Primary Dressing Applied -Primary Dressing Covered/Secured with -Promogran Michael Matter 9. R plantar -Ulcer Cleansing Rinsed/ Rinsed/ Irrigated with Irrigated with Saline Saline -Foul Odor after Cleansing No No -Primary Dressing Applied Aquacel Extra Aquacel Extra Aquacel Extra -Other Dressing EPIMESH drsg per jf rn -Primary Dressing Covered/Secured with Dry Gauze & Dry Gauze & Dry Gauze, Roll Gauze, Roll Gauze, Secured with Secured with Secured with Tape Tape Tape -Other Covering DRSG PER DL RETAIL EVENT ASSISTANT -Aquacel Extra 1 1 1 8. L heel -Ulcer Cleansing Rinsed/ Irrigated with Saline -Foul Odor after Cleansing No -Primary Dressing Applied Aquacel Extra -Other Dressing EPIMESH, TOPPED aquacel extra epimesh, drymax W/ AQUACEL EXTRA -Primary Dressing Covered/Secured with Dry Gauze Dry Gauze, Secured with Tape -Other Covering TCC UNDERCAST foam/ TCC tcc undercast SIZE 3, DRSGS Casting PER DL RETAIL EVENT ASSISTANT -Aquacel Extra 0 -Promogran Michael Matter Treatment Response Procedure Procedure Procedure Tolerated Well Tolerated Well Tolerated Well Pain Scale: 0-10 Numeric Is Patient Pain Free? Yes Yes Yes WC - Visit Discharge Discharge Condition Stable Stable Stable Ambulatory Status Ambulatory Ambulatory Ambulatory Transportation Private Auto Private Auto Private Auto Medication Reconcilliation completed & provided to patient/care provider Clinical Summary of Care Provided 05/25/22 06/01/22 09:09 09:00 Wound Care Nurse 3 11-right 5th methead -Primary Dressing Applied Promogran Michael Matter -Primary Dressing Covered/Secured with Dry Gauze,Dry Dry Gauze,Dry Gauze & Roll Gauze & Roll Gauze,Secured Gauze,Secured with Tape with Tape -Promogran Michael Matter 1 9. R plantar -Ulcer Cleansing -Foul Odor after Cleansing -Primary Dressing Applied -Other Dressing michael abd -Primary Dressing Covered/Secured with Dry Gauze,Dry Dry Gauze,Dry Gauze & Roll Gauze & Roll Gauze,Secured Gauze,Secured with Tape with Tape -Other Covering -Aquacel Extra 8. L heel -Ulcer Cleansing -Foul Odor after Cleansing -Primary Dressing Applied -Other Dressing primary layer primary layer of TCC applied of TCC applied -Primary Dressing Covered/Secured with Secured with Tape -Other Covering -Aquacel Extra -Promogran Michael Matter 1 Treatment Response Procedure Tolerated Well Pain Scale: 0-10 Numeric Is Patient Pain Free? Yes Yes WC - Visit Discharge Discharge Condition Stable Ambulatory Status Ambulatory Transportation Private Auto Medication Reconcilliation completed & No provided to patient/care provider Clinical Summary of Care Provided Yes Assessment/Plan Assessment/Plan (1) Ulcer of right foot with fat layer exposed: CODE(S): L97.512 - Non-pressure chronic ulcer of other part of right foot with fat layer exposed (2) Ulcer of left foot with fat layer exposed: CODE(S): L97.522 - Non-pressure chronic ulcer of other part of left foot with fat layer exposed (3) Delayed wound healing: CODE(S): T14.8XXD - Other injury of unspecified body region, subsequent encounter PLAN: Plan I?reviewed and discussed her case.? Subcutaneous excisional debridement was performed as noted in the clinical panel bilateral. Diagnostic data was also reviewed. The following recommendations were made. Change dressing daily with Michael to the right few daily.? Advance wound healing product: I recommend application of epi fix to optimize healing.? The benefits and indications were reviewed and also expected management use.? Prior authorization was obtained.? This is medically necessary for limb salvage for the left heel ulcer.? She is at risk for amputation and limb loss and further infections.? Verbal consent was obtained and this was applied according standard protocol to the left heel.? This was further secured with a wound veil and Steri-Strips.? 100% of the product was utilized.? She tolerated this well.? To keep clean, dry, and intact until follow-up next week. offloading: To maintain strict nonweightbearing status with the knee roller, left with total contact cast and heel weightbear right in surgical shoe.? Total contact cast was applied today according to standard protocol (left) in a well-padded in neutral position after verbal consent was obtained. She tolerated this well and will keep this clean, dry, and intact.? Verbal consent was obtained prior to application and she will keep this clean and dry and intact as well.? Her right foot surgical shoe was evaluated and I updated her offloading dual density Plastizote liners to take pressure off of her subfirst metatarsal head site.? She was still encouraged not to do routine walking with this device to optimize healing. Infection:? 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 Concern is deeper infection involvement due to bulbous toe appearance including potential osteomyelitis.? She has been taking doxycycline with some mild improvement however this is in regards to reduced erythema.? It is noted she has continued communication with deep structures including the bone and there was bone that was debrided today from the left second toe.? Infectious disease specialist, Dr. Reyes also saw and evaluated her today and input is greatly appreciated.? She was advised to continue doxycycline and Augmentin will also be added to her regimen.? She understands amputation will be recommended if she fails oral antibiotic treatment course of at least 6 weeks. ID recs appreciated.? Improvement noted and infection resolved. nutrition: She was advised to maintain a balanced whole food diet with adequate protein and nutrients to optimize healing.? To resume Yosvany supplementation use. ? Host factors. Neuropathy complicates her case. To monitor close due to inability to sensate as normal.? She was also advised to avoid prednisone use and will also hold the Plaquenil at this time unless she has an intense flareup.? This was previously reviewed verbally with Dr. Pratt.? ? She also has a calcaneus gait with prior surgical intervention including a tendon transfer which is compromised with a fall in the early postoperative setting.? We previously discussed options to surgically alleviate her calcaneus gait including retightening the Achilles tendon or other posterior leg muscles.? Updated vascular (arterial) and doppler with reflux (venous) was ordered to assess for any abnormalities.? The arterial studies were reviewed and no arterial disease or occlusions were identified. ? Venous insufficiency work-up is still pending. Diagnostic data: Her bilateral foot xrays (three views) were reviewed from 04-06-2022 without soft tissue emphysema, osseous destruction or foreign body.? Chip fracture to medial proximal phalanx base unchanged noted to the right foot without additional osseous destruction.? Labs reviewed from 02/15/22 with wbc 9.4, no renal dysfunction or other gross abnormalities. Note: [employer] speech recognition extension work instructor software was used to create portions of this document. Sound-alike and misspelled words, as well as other extension work instructor errors may be contained in the documentation. ?
== END 2022-06-08 23:59 | disposition home or self-care (01) ==
LOC: WC 08:30
PROVIDERS: PCP Family Medicine; Referring Provider Podiatrist; Visit Provider Podiatrist
DX: L97.422 Non-pressure chronic ulcer of left heel and midfoot with fat layer exposed (principal); L97.412 Non-pressure chronic ulcer of right heel and midfoot with fat layer exposed; M32.9 Systemic lupus erythematosus, unspecified; L03.116 Cellulitis of left lower limb; E78.5 Hyperlipidemia, unspecified; G62.9 Polyneuropathy, unspecified; G47.33 Obstructive sleep apnea (adult) (pediatric); Z22.322 Carrier or suspected carrier of Methicillin resistant Staphylococcus aureus; S92.401D Displaced unspecified fracture of right great toe, subsequent encounter for fracture with routine healing; Z79.899 Other long term (current) drug therapy
CPT/HCPCS: 11042; 15275; 29445; 99213; Q4186; G0463

== ENCOUNTER 2022-07-07 08:30 | Outpatient (RCR) | payer MEDICARE, BC, SELFPAY ==
[2022-06-09 00:33] VITALS: BP 152/90; PULSE 100; RESP 18; TEMP 36.1; BMI 37.2
[2022-06-15 08:32] VITALS: BP 144/81; PULSE 103; RESP 18; TEMP 35.8; BMI 37.2
--- NOTE | 2022-06-15 09:10 | PCM.WC.PN ---
History of Present Illness Date of Service: 06/15/22 Chief Complaint: Left heel ulcer right foot ulcers History of Wound: This pleasant 56-year-old female with significant past medical history of lupus, history of panic attack, depression, history of delayed healing, hyperlipidemia, irritable bowel syndrome, memory loss, restless leg syndrome, and obstructive sleep apnea is here for follow-up of left heel and right foot ulcers. She is ready for total contact cast application again today. She wears an offloading shoe to the right foot also for two ulcer sites. She denies fever, chill, nausea, vomiting, or other illness. Progress of Wound: improving (all) Objective Data Objective Data Vital Signs: Vital Signs Temp Pulse Resp BP 96.4 F L 103 H 18 144/81 H 06/15/22 08:32 06/15/22 08:32 06/15/22 08:32 06/15/22 08:32 Weight: 111.13 kg Body Mass Index (BMI) 37.2 Physical Exam Const alert and oriented x3 General Appearance: cooperative Extremity normal capillary refill and no calf tenderness Extremity Narrative: Bilateral pedal pulses palpable but diminished. +1 edema bilateral lower extremities. Skin color pink, with no pain or tenderness with palpation. Skin Wound Narrative: Left heel ulcer is beefy pink granulation tissue. No purulent drainage, no odor, no signs of infection. Right plantar ulcer, medial to 1st metatarsal head and also plantar lateral foot with base of ulcer beefy pink granulation tissue. left heel reduced size with 100% healthy granular base also. no maceration bilateral Debridement Note Debridement Note Wound debrided: left heel, right plantar medial and lateral foot Type of Debridement: Excisional debridement Anesthesia Used: 5% Lidocaine Gel Depth: Down to and including healthy tissue and in the subcutaneous layer Percentage of wound debrided: 100 Tissue Removed: Non viable tissue and slough Severity: Fat Layer Exposed Amount of bleeding with debridement: Mild Bleeding Controlled with: Pressure and Compression and gauze Patient tolerated procedure: Patient tolerated procedure well Post-Debridement Measurements and Additional Note: Post-Debridement Measurements/Treatment ARACELI - Nurse 1 - General Ulcer Assessment Start: 06/15/22 08:32 Freq: Status: Active Protocol: OLGA Activity Type Activity Date Activity User E-sign Co-sign Detail Recorded Client Recorded Date Recorded By Document 06/15/22 08:32 RB Desktop 06/15/22 08:44 RB 06/15/22 08:32 - Today's Visit Information Type of service Follow-up Visit (Physician/UTILIZATION REVIEW COORDINATOR ) Arrival Mode Ambulatory Transfer Assistance None Patient Identification Verified (Name & Yes ) Patient Requires Transmission-Based No Precautions Height and Weight Body Mass Index (BMI) 37.2 BMI Classification Obese Vital Signs Temperature (97.8 F-99.1 F) 96.4 F L Temperature Source Temporal Pulse Rate (60-100) 103 H Pulse Location Monitor Respiratory Rate (12-18) 18 Respiratory rate source Observation Blood Pressure (90/60-120/80) 144/81 H Blood Pressure Mean (mm Hg) 102 Source Monitor Position Semi-Fowlers Blood Pressure Location Left Arm History Since Last Visit- (Skip if this is Patient's initial visit) Have you changed medications since your No last visit? Any new allergies or adverse reactions No Had a fall/change in ADL's that may No increase risk of falls Signs or symptoms of abuse and/or No neglect since last visit Have you been in the hospital since your No last visit? Has dressing in place as prescribed Yes Has compression in place as prescribed No Has offloadiing in place as prescribed Yes Experienced any changes in pain level or No management Left Footwear Total Contact Cast Right Footwear Surgical Shoe with pressure relief insole Pain Scale: 0-10 Numeric Is Patient Pain Free? Yes - Nurse 1 - General Ulcer Measurement Start: 06/15/22 08:32 Freq: Status: Active Protocol: Activity Type Activity Date Activity User E-sign Co-sign Detail Recorded Client Recorded Date Recorded By Document 06/15/22 08:32 Desktop 06/15/22 08:44 RB 06/15/22 08:32 Wound Center Nurse 1 11-right 5th methead -Combined with other wound No -Current Size (cm) - Length 0.1 -Current Size (cm) - Width 0.8 -Current Size (cm) - Depth 0.1 -Total Square Cm 0.08 -Tunneling No -Undermining/Tunneling No -Circular Undermining No -Exudate Amt Medium -Exudate Type Serosanguineous -Wound Margin Thickened -Granulation Amt Medium (34-66%) -Granulation Quality [place] -Slough/Fibrin Yes -Necrosis Amt Medium (34-66%) -Necrotic Tissue Type Adherent Slough -Structure Exposed N/A -Texture (Cecelia-wound Skin Appearance) Assessed,Callus -Moisture (Cecelia-wound Skin Appearance) Assessed -Color (Cecelia-wound Skin Appearance) Assessed -Temperature (Cecelia-wound Skin No Abnormality Appearance) (Pt Warm) -Tenderness on Palpation (Cecelia-wound No Skin Appearance) -Ulcer Cleansing Wound Cleanser -Foul Odor after Cleansing No -Anesthetic Used 5% Lidocaine Gel 9. R plantar -Combined with other wound No -Current Size (cm) - Length 1.1 -Current Size (cm) - Width 0.8 -Current Size (cm) - Depth 0.2 -Total Square Cm 0.88 8. L heel -Combined with other wound No -Current Size (cm) - Length 1.2 -Current Size (cm) - Width 2.1 -Current Size (cm) - Depth 0.8 -Total Square Cm 2.52 -Tunneling No -Undermining/Tunneling No -Circular Undermining No -Exudate Amt Medium -Exudate Type Serosanguineous -Wound Margin Thickened -Granulation Amt Medium (34-66%) -Granulation Quality [place] -Slough/Fibrin Yes -Necrosis Amt Medium (34-66%) -Necrotic Tissue Type Adherent Slough -Structure Exposed N/A -Texture (Cecelia-wound Skin Appearance) Assessed,Callus -Moisture (Cecelia-wound Skin Appearance) Assessed -Color (Cecelia-wound Skin Appearance) Assessed -Temperature (Cecelia-wound Skin No Abnormality Appearance) (Pt Warm) -Tenderness on Palpation (Cecelia-wound No Skin Appearance) -Ulcer Cleansing Wound Cleanser -Foul Odor after Cleansing No -Anesthetic Used 5% Lidocaine Gel WC - Nurse 2 - General Ulcer CM Notes Start: 06/15/22 08:32 Freq: Status: Active Protocol: Activity Type Activity Date Activity User E-sign Co-sign Detail Recorded Client Recorded Date Recorded By Document 06/15/22 08:51 STEPHANIE [id number] 06/15/22 08:54 STEPHANIE 06/15/22 08:51 Wound Center Nurse 2 11-right 5th methead -Time 08:51 -Correct Patient Yes -Correct Side, Site, Position Yes -Correct Procedure Yes -Procedure Performed Yes -Type of Procedure Debridement -Clinical Debridement Subcutaneous -Tissue Removed Subcutaneous -Post Debridement (cm) - Length 0.2 -Post Debridement (cm) - Width 0.8 -Post Debridement (cm) - Depth 0.1 -Total Square (Post) (cm) 0.16 -Area of Debridement (cm) - Length 0.2 -Area of Debridement (cm) - Width 0.8 -Total Square (Area) (cm) 0.16 -Tunneling No -Undermining/Tunneling No -Circular Undermining No -Wound/Ulcer Outcome Not Healed -Ulcer Cleansing Rinsed/ Irrigated with Saline -Foul Odor after Cleansing No -Bioengineered Tissue No -Bleeding Controlled with Pressure -Treatment Response Procedure Tolerated Well -Offloading Yes -Type of Offloading Surgical Shoe -Debridement - Subq, 1st 20sq cm Yes 9. R plantar -Time 08:51 -Correct Patient Yes -Correct Side, Site, Position Yes -Correct Procedure Yes -Procedure Performed Yes -Type of Procedure Debridement -Clinical Debridement Subcutaneous -Tissue Removed Subcutaneous -Post Debridement (cm) - Length 1.2 -Post Debridement (cm) - Width 0.8 -Post Debridement (cm) - Depth 0.2 -Total Square (Post) (cm) 0.96 -Area of Debridement (cm) - Length 1.2 -Area of Debridement (cm) - Width 0.8 -Total Square (Area) (cm) 0.96 -Tunneling No -Undermining/Tunneling No -Circular Undermining No -Wound/Ulcer Outcome Not Healed -Ulcer Cleansing Rinsed/ Irrigated with Saline -Foul Odor after Cleansing No -Bioengineered Tissue No -Bleeding Controlled with Pressure -Treatment Response Procedure Tolerated Well -Offloading Yes -Type of Offloading Surgical Shoe -Debridement - Subq, 1st 20sq cm No 8. L heel -Time 08:52 -Correct Patient Yes -Correct Side, Site, Position Yes -Correct Procedure Yes -Procedure Performed Yes -Type of Procedure Debridement -Clinical Debridement Subcutaneous -Tissue Removed Subcutaneous -Post Debridement (cm) - Length 1.2 -Post Debridement (cm) - Width 2.2 -Post Debridement (cm) - Depth 0.7 -Total Square (Post) (cm) 2.64 -Area of Debridement (cm) - Length 1.2 -Area of Debridement (cm) - Width 2.2 -Total Square (Area) (cm) 2.64 -Tunneling No -Undermining/Tunneling No -Circular Undermining No -Wound/Ulcer Outcome Not Healed -Ulcer Cleansing Rinsed/ Irrigated with Saline -Foul Odor after Cleansing No -Bioengineered Tissue Yes -Type of Bioengineered Tissue Epifix -Expiration Date 03/09/27 -Product Lot Number [id number] -Percent Used 100 -Lot number of Saline Used [id number] -Bleeding Controlled with Pressure -Treatment Response Procedure Tolerated Well -Offloading Yes -Type of Offloading Total Contact Cast (TCC) - Left ($) -Debridement - Subq, 1st 20sq cm No -Apply Skin Sub - 1st 25 sq cm - Feet 1 -Epifix (per sq cm) 4 Pain Scale: 0-10 Numeric Is Patient Pain Free? Yes Assessment/Plan Assessment/Plan (1) Ulcer of right foot with fat layer exposed: CODE(S): L97.512 - Non-pressure chronic ulcer of other part of right foot with fat layer exposed (2) Ulcer of left foot with fat layer exposed: CODE(S): L97.522 - Non-pressure chronic ulcer of other part of left foot with fat layer exposed (3) Delayed wound healing: CODE(S): T14.8XXD - Other injury of unspecified body region, subsequent encounter PLAN: Plan I?reviewed and discussed her case.? Subcutaneous excisional debridement was performed as noted in the clinical panel bilateral. Diagnostic data was also reviewed. The following recommendations were made. Change dressing daily with Neida to the right few daily.? Advance wound healing product: I recommend application of epi fix to optimize healing.? The benefits and indications were reviewed and also expected management use.? Prior authorization was obtained.? This is medically necessary for limb salvage for the left heel ulcer.? She is at risk for amputation and limb loss and further infections.? Verbal consent was obtained and this was applied according standard protocol to the left heel.? This was further secured with a wound veil and Steri-Strips.? 100% of the product was utilized.? She tolerated this well.? To keep clean, dry, and intact until follow-up next week. location: left heel offloading: To maintain strict nonweightbearing status with the knee roller, left with total contact cast and heel weightbear right in surgical shoe.? Total contact cast was applied today according to standard protocol (left) in a well-padded in neutral position after verbal consent was obtained. She tolerated this well and will keep this clean, dry, and intact.? Verbal consent was obtained prior to application and she will keep this clean and dry and intact as well.? Her right foot surgical shoe was evaluated and I updated her offloading dual density Plastizote liners to take pressure off of her subfirst and sub fifth metatarsal head sites.? She was still encouraged not to do routine walking with this device to optimize healing. Infection:? 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 Concern is deeper infection involvement due to bulbous toe appearance including potential osteomyelitis.? She has been taking doxycycline with some mild improvement however this is in regards to reduced erythema.? It is noted she has continued communication with deep structures including the bone and there was bone that was debrided today from the left second toe.? Infectious disease specialist, Dr. Reyes also saw and evaluated her today and input is greatly appreciated.? She was advised to continue doxycycline and Augmentin will also be added to her regimen.? She understands amputation will be recommended if she fails oral antibiotic treatment course of at least 6 weeks. ID recs appreciated.? Improvement noted and infection resolved. nutrition: She was advised to maintain a balanced whole food diet with adequate protein and nutrients to optimize healing.? To resume Yosvany supplementation use. ? Host factors. Neuropathy complicates her case. To monitor close due to inability to sensate as normal.? She was also advised to avoid prednisone use and will also hold the Plaquenil at this time unless she has an intense flareup.? This was previously reviewed verbally with Dr. Pratt.? ? She also has a calcaneus gait with prior surgical intervention including a tendon transfer which is compromised with a fall in the early postoperative setting.? We previously discussed options to surgically alleviate her calcaneus gait including retightening the Achilles tendon or other posterior leg muscles.? Updated vascular (arterial) and doppler with reflux (venous) was ordered to assess for any abnormalities.? The arterial studies were reviewed and no arterial disease or occlusions were identified. ? Venous insufficiency work-up is still pending. Diagnostic data: Her bilateral foot xrays (three views) were reviewed from 04-06-2022 without soft tissue emphysema, osseous destruction or foreign body.? Chip fracture to medial proximal phalanx base unchanged noted to the right foot without additional osseous destruction.? Labs reviewed from 02/15/22 with wbc 9.4, no renal dysfunction or other gross abnormalities. Note: [employer] speech recognition substance abuse services director software was used to create portions of this document. Sound-alike and misspelled words, as well as other substance abuse services director errors may be contained in the documentation. ?
[2022-06-23 08:31] VITALS: BP 137/77; PULSE 78; TEMP 35.9; BMI 37.2
--- NOTE | 2022-06-23 08:43 | PN.PCM_ITS ---
History of Present Illness Date of Service: 06/23/22 Chief Complaint: Left heel ulcer right foot ulcers History of Wound: This pleasant 56-year-old female with significant past medical history of lupus, history of panic attack, depression, history of delayed healing, hyperlipidemia, irritable bowel syndrome, memory loss, restless leg syndrome, and obstructive sleep apnea is here for follow-up of left heel and right foot ulcers. She is ready for total contact cast application again today. She wears an offloading shoe to the right foot also for two ulcer sites. She denies fever, chill, nausea, vomiting, or other illness. Progress of Wound: improving (all) Subjective Subjective This is a 59-year-old female who presents today to the wound care center for follow-up of a left plantar heel ulceration and right foot subfirst metatarsal head ulceration. She had a total contact cast application last week and states this went well. She denies any constitutional symptoms today. She has no further complaints today. Objective Data Objective Data Vital Signs: Vital Signs Temp Pulse Resp BP 96.6 F L 78 18 137/77 H 06/23/22 08:31 06/23/22 08:31 06/15/22 08:32 06/23/22 08:31 Weight: 111.13 kg Body Mass Index (BMI) 37.2 Physical Exam Const alert and oriented x3 General Appearance: cooperative Extremity normal capillary refill and no calf tenderness Extremity Narrative: Bilateral pedal pulses palpable but diminished. +1 edema bilateral lower extremities. Skin color pink, with no pain or tenderness with palpation. Skin Wound Narrative: Left heel ulcer is beefy pink granulation tissue. No purulent drainage, no odor, no signs of infection. Right plantar ulcer, medial to 1st metatarsal head with base of ulcer beefy pink granulation tissue. Right plantar lateral foot ulceration has healed. Left heel reduced size with 100% healthy granular base also. no maceration bilateral Debridement Note Debridement Note Post-Debridement Measurements and Additional Note: Post-Debridement Measurements/Treatment WC - Nurse 1 - General Ulcer Assessment Start: 06/15/22 08:32 Freq: Status: Active Protocol: [email or web address] Activity Type Activity Date Activity User E-sign Co-sign Detail Recorded Client Recorded Date Recorded By Document 06/15/22 08:32 RB Desktop 06/15/22 08:44 RB Document 06/23/22 08:31 AK [id number] 06/23/22 08:36 WV 06/15/22 06/23/22 08:32 08:31 WC - Today's Visit Information Type of service Follow-up Visit Follow-up Visit (Physician/TILE LAYER SUPERVISOR (Physician/TILE LAYER SUPERVISOR ) ) Arrival Mode Ambulatory Ambulatory Transfer Assistance None Patient Identification Verified (Name & Yes Yes ) Patient Requires Transmission-Based No No Precautions Safety Precautions NA Height and Weight Body Mass Index (BMI) 37.2 37.2 BMI Classification Obese Obese Vital Signs Temperature (97.8 F-99.1 F) 96.4 F L 96.6 F L Temperature Source Temporal Temporal Pulse Rate (60-100) 103 H 78 Pulse Location Monitor Monitor Respiratory Rate (12-18) 18 Respiratory rate source Observation Blood Pressure (90/60-120/80) 144/81 H 137/77 H Blood Pressure Mean (mm Hg) 102 97 Source Monitor Monitor Position Semi-Fowlers Blood Pressure Location Left Arm History Since Last Visit- (Skip if this is Patient's initial visit) Have you changed medications since your No No last visit? Any new allergies or adverse reactions No No Had a fall/change in ADL's that may No No increase risk of falls Signs or symptoms of abuse and/or No No neglect since last visit Have you been in the hospital since your No No last visit? Has dressing in place as prescribed Yes Yes Has compression in place as prescribed No N/A Has offloadiing in place as prescribed Yes Yes Experienced any changes in pain level or No No management Left Footwear Total Contact Surgical Shoe Cast with pressure relief insole Right Footwear Surgical Shoe Removable Cast with pressure Walker/Walking relief insole Boot Pain Scale: 0-10 Numeric Is Patient Pain Free? Yes Yes - Nurse 1 - General Ulcer Measurement Start: 06/15/22 08:32 Freq: Status: Active Protocol: Activity Type Activity Date Activity User E-sign Co-sign Detail Recorded Client Recorded Date Recorded By Document 06/15/22 08:32 RB Desktop 06/15/22 08:44 RB Document 06/23/22 08:31 ROOPA [id number] 06/23/22 08:36 ROOPA 06/15/22 06/23/22 08:32 08:31 Wound Center Nurse 1 11-right 5th methead -Combined with other wound No -Current Size (cm) - Length 0.1 1 -Current Size (cm) - Width 0.8 0.9 -Current Size (cm) - Depth 0.1 0.3 -Total Square Cm 0.08 0.9 -Tunneling No -Undermining/Tunneling No -Circular Undermining No -Exudate Amt Medium Medium -Exudate Type Serosanguineous Serosanguineous -Wound Margin Thickened Distinct, Outline Attached -Granulation Amt Medium (34-66%) Large (67-100%) -Granulation Quality [place] -Slough/Fibrin Yes -Necrosis Amt Medium (34-66%) None Present (0 %) -Necrotic Tissue Type Adherent Slough -Structure Exposed N/A -Texture (Cecelia-wound Skin Appearance) Assessed,Callus Assessed, Scarring -Moisture (Cecelia-wound Skin Appearance) Assessed No Abnormality, Assessed -Color (Cecelia-wound Skin Appearance) Assessed No Abnormality, Assessed -Temperature (Cecelia-wound Skin No Abnormality No Abnormality Appearance) (Pt Warm) (Pt Warm) -Tenderness on Palpation (Cecelia-wound No No Skin Appearance) -Ulcer Cleansing Wound Cleanser Rinsed/ Irrigated with Saline -Foul Odor after Cleansing No No -Anesthetic Used 5% Lidocaine 5% Lidocaine Gel Gel 9. R plantar -Combined with other wound No -Current Size (cm) - Length 1.1 1 -Current Size (cm) - Width 0.8 2 -Current Size (cm) - Depth 0.2 0.2 -Total Square Cm 0.88 2 -Exudate Amt Small -Exudate Type Serosanguineous -Wound Margin Distinct, Outline Attached -Granulation Amt Medium (34-66%) -Granulation Quality Red -Necrosis Amt Small (1-33%) -Necrotic Tissue Type Adherent Slough -Texture (Cecelia-wound Skin Appearance) Assessed, Scarring -Moisture (Cecelia-wound Skin Appearance) Assessed, Maceration -Color (Cecelia-wound Skin Appearance) No Abnormality, Assessed -Temperature (Cecelia-wound Skin No Abnormality Appearance) (Pt Warm) -Tenderness on Palpation (Cecelia-wound No Skin Appearance) -Ulcer Cleansing Rinsed/ Irrigated with Saline -Foul Odor after Cleansing No -Anesthetic Used 5% Lidocaine Gel 8. L heel -Combined with other wound No -Current Size (cm) - Length 1.2 -Current Size (cm) - Width 2.1 -Current Size (cm) - Depth 0.8 -Total Square Cm 2.52 -Tunneling No -Undermining/Tunneling No -Circular Undermining No -Exudate Amt Medium -Exudate Type Serosanguineous -Wound Margin Thickened -Granulation Amt Medium (34-66%) -Granulation Quality [place] -Slough/Fibrin Yes -Necrosis Amt Medium (34-66%) -Necrotic Tissue Type Adherent Slough -Structure Exposed N/A -Texture (Cecelia-wound Skin Appearance) Assessed,Callus -Moisture (Cecelia-wound Skin Appearance) Assessed -Color (Cecelia-wound Skin Appearance) Assessed -Temperature (Cecelia-wound Skin No Abnormality Appearance) (Pt Warm) -Tenderness on Palpation (Cecelia-wound No Skin Appearance) -Ulcer Cleansing Wound Cleanser -Foul Odor after Cleansing No -Anesthetic Used 5% Lidocaine Gel WC - Nurse 2 - General Ulcer CM Notes Start: 06/15/22 08:32 Freq: Status: Active Protocol: Activity Type Activity Date Activity User E-sign Co-sign Detail Recorded Client Recorded Date Recorded By Document 06/15/22 08:51 [id number] 06/15/22 08:54 STEPHANIE 06/15/22 08:51 Wound Center Nurse 2 11-right 5th methead -Time 08:51 -Correct Patient Yes -Correct Side, Site, Position Yes -Correct Procedure Yes -Procedure Performed Yes -Type of Procedure Debridement -Clinical Debridement Subcutaneous -Tissue Removed Subcutaneous -Post Debridement (cm) - Length 0.2 -Post Debridement (cm) - Width 0.8 -Post Debridement (cm) - Depth 0.1 -Total Square (Post) (cm) 0.16 -Area of Debridement (cm) - Length 0.2 -Area of Debridement (cm) - Width 0.8 -Total Square (Area) (cm) 0.16 -Tunneling No -Undermining/Tunneling No -Circular Undermining No -Wound/Ulcer Outcome Not Healed -Ulcer Cleansing Rinsed/ Irrigated with Saline -Foul Odor after Cleansing No -Bioengineered Tissue No -Bleeding Controlled with Pressure -Treatment Response Procedure Tolerated Well -Offloading Yes -Type of Offloading Surgical Shoe -Debridement - Subq, 1st 20sq cm Yes 9. R plantar -Time 08:51 -Correct Patient Yes -Correct Side, Site, Position Yes -Correct Procedure Yes -Procedure Performed Yes -Type of Procedure Debridement -Clinical Debridement Subcutaneous -Tissue Removed Subcutaneous -Post Debridement (cm) - Length 1.2 -Post Debridement (cm) - Width 0.8 -Post Debridement (cm) - Depth 0.2 -Total Square (Post) (cm) 0.96 -Area of Debridement (cm) - Length 1.2 -Area of Debridement (cm) - Width 0.8 -Total Square (Area) (cm) 0.96 -Tunneling No -Undermining/Tunneling No -Circular Undermining No -Wound/Ulcer Outcome Not Healed -Ulcer Cleansing Rinsed/ Irrigated with Saline -Foul Odor after Cleansing No -Bioengineered Tissue No -Bleeding Controlled with Pressure -Treatment Response Procedure Tolerated Well -Offloading Yes -Type of Offloading Surgical Shoe -Debridement - Subq, 1st 20sq cm No 8. L heel -Time 08:52 -Correct Patient Yes -Correct Side, Site, Position Yes -Correct Procedure Yes -Procedure Performed Yes -Type of Procedure Debridement -Clinical Debridement Subcutaneous -Tissue Removed Subcutaneous -Post Debridement (cm) - Length 1.2 -Post Debridement (cm) - Width 2.2 -Post Debridement (cm) - Depth 0.7 -Total Square (Post) (cm) 2.64 -Area of Debridement (cm) - Length 1.2 -Area of Debridement (cm) - Width 2.2 -Total Square (Area) (cm) 2.64 -Tunneling No -Undermining/Tunneling No -Circular Undermining No -Wound/Ulcer Outcome Not Healed -Ulcer Cleansing Rinsed/ Irrigated with Saline -Foul Odor after Cleansing No -Bioengineered Tissue Yes -Type of Bioengineered Tissue Epifix -Expiration Date 03/09/27 -Product Lot Number [id number] -Percent Used 100 -Lot number of Saline Used [id number] -Bleeding Controlled with Pressure -Treatment Response Procedure Tolerated Well -Offloading Yes -Type of Offloading Total Contact Cast (TCC) - Left ($) -Debridement - Subq, 1st 20sq cm No -Apply Skin Sub - 1st 25 sq cm - Feet 1 -Epifix (per sq cm) 4 Pain Scale: 0-10 Numeric Is Patient Pain Free? Yes Additional Wound Wound debrided: Sub first metatarsal head Laterality: Right Wound Grade/Stage: Taylor stage I Type of Debridement: Excisional debridement Anesthesia Used: 5% Lidocaine Gel Depth: in the subcutaneous layer Percentage of wound debrided: 100 Instrument Used: 3mm curette Tissue Removed: Fibrous, devitalized subcutaneous, biofilm, slough Severity: Fat Layer Exposed Amount of bleeding with debridement: Mild Bleeding Controlled with: Compression and gauze Patient tolerated procedure: Patient tolerated procedure well Assessment/Plan Assessment/Plan (1) Ulcer of right foot with fat layer exposed: CODE(S): L97.512 - Non-pressure chronic ulcer of other part of right foot with fat layer exposed (2) Ulcer of left foot with fat layer exposed: CODE(S): L97.522 - Non-pressure chronic ulcer of other part of left foot with fat layer exposed (3) Delayed wound healing: CODE(S): T14.8XXD - Other injury of unspecified body region, subsequent encounter PLAN: Plan Patient seen and evaluated I?reviewed and discussed her case.? Subcutaneous excisional debridement was performed as noted in the clinical panel to bilateral ulceration sites. Diagnostic data was also reviewed. The following recommendations were made. Change dressing daily with Neida and dry sterile dressing to the right heel daily.? Neida applied with dry sterile dressing to the left heel. offloading: To maintain strict nonweightbearing status with the knee roller, left with total contact cast and heel weightbearing to right in surgical shoe.?Total contact cast was applied today according to standard protocol (left) in a well-padded in neutral position after verbal consent was obtained. She tolerated this well and will keep this clean, dry, and intact.? Verbal consent was obtained prior to application and she will keep this clean and dry and intact as well.? Her right foot surgical shoe was evaluated, her offloading dual density Plastizote liners to take pressure off of her subfirst and sub fifth metatarsal head sites were updated last week.? She was still encouraged not to do routine walking with this device to optimize healing. Infection:? 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 Concern is deeper infection involvement due to bulbous toe appearance including potential osteomyelitis.? She has been taking doxycycline with mild improvement however this is in regards to reduced erythema.? It is noted she has continued communication with deep structures including the bone and there was bone that was debrided previously from the left second toe by Dr. Gutierrez.? Infectious disease specialist, Dr. Reyes has seen and evaluated. His input is greatly appreciated.? She was advised to continue doxycycline and Augmentin has also be added to her regimen.? She understands amputation will be recommended if she fails oral antibiotic treatment course of at least 6 weeks. ID recs appreciated.? Improvement noted and infection resolved. nutrition: She was advised to maintain a balanced whole food diet with adequate protein and nutrients to optimize healing.? To resume Yosvany supplementation use. ? Host factors. Neuropathy complicates her case. To monitor close due to inability to sensate as normal.? She was also advised to avoid prednisone use and will also hold the Plaquenil at this time unless she has an intense flareup.? Dr. Gutierrez previously reviewed verbally with Dr. Pratt.? ?She also has a calcaneus gait with prior surgical intervention including a tendon transfer which is compromised with a fall in the early postoperative setting.? We previously discussed options to surgically alleviate her calcaneus gait including retightening the Achilles tendon or other posterior leg muscles.? She has had updated vascular (arterial) and doppler with reflux (venous) to assess for any abnormalities.? The arterial studies were reviewed and no arterial disease or occlusions were identified. ?Venous insufficiency work-up is still pending. Diagnostic data: Her bilateral foot xrays (three views) were reviewed from 04-06-2022 without soft tissue emphysema, osseous destruction or foreign body.? Chip fracture to medial proximal phalanx base unchanged noted to the right foot without additional osseous destruction.? Labs reviewed from 02/15/22 with wbc 9.4, no renal dysfunction or other gross abnormalities. I have discussed progressing signs of infection with her again today. She was instructed if she notices any increasing redness that moves up the leg, any malodor, any purulent drainage emerging from the wound, or if she experiences any nausea, vomiting, fever greater than 101 degrees, or chills that she is to report straight to the emergency department as these are progressing signs of an infection. She voices verbal understanding of this today. She will return to the wound care center in 1 week for continued wound care of bilateral feet. Note: [employer] speech recognition biomass boiler operator software was used to create portions of this document. Sound-alike and misspelled words, as well as other biomass boiler operator errors may be contained in the documentation. ?
[2022-06-30 08:49] VITALS: BP 140/74; PULSE 96; TEMP 35.2; BMI 37.2
--- NOTE | 2022-06-30 09:09 | PCM.WC.PN ---
History of Present Illness Date of Service: 06/30/22 Chief Complaint: Left heel ulcer right foot ulcers History of Wound: This pleasant 56-year-old female with significant past medical history of lupus, history of panic attack, depression, history of delayed healing, hyperlipidemia, irritable bowel syndrome, memory loss, restless leg syndrome, and obstructive sleep apnea is here for follow-up of left heel and right foot ulcers. She is ready for total contact cast application again today. She wears an offloading shoe to the right foot also for two ulcer sites. She denies fever, chill, nausea, vomiting, or other illness. Progress of Wound: improving (all) Subjective Subjective This is a 59-year-old female who presents today to the wound care center for follow-up of a left plantar heel ulceration and right foot subfirst metatarsal head ulceration.? She had a total contact cast application last week and states this went well.? She denies any constitutional symptoms today.? She has no further complaints today. Objective Data Objective Data Vital Signs: Vital Signs Temp Pulse Resp BP 95.4 F L 96 18 140/74 H 06/30/22 08:49 06/30/22 08:49 06/15/22 08:32 06/30/22 08:49 Weight: 111.13 kg Body Mass Index (BMI) 37.2 Physical Exam Const alert and oriented x3 General Appearance: cooperative Extremity normal capillary refill and no calf tenderness Extremity Narrative: Bilateral pedal pulses palpable but diminished. +1 edema bilateral lower extremities. Skin color pink, with no pain or tenderness with palpation. Skin Wound Narrative: Left heel ulcer is beefy pink granulation tissue. No purulent drainage, no odor, no signs of infection. Right plantar ulcer, medial to 1st metatarsal head with base of ulcer beefy pink granulation tissue. Right plantar lateral foot ulceration has healed. Left heel reduced size with 100% healthy granular base also. no maceration bilateral Debridement Note Debridement Note Wound debrided: Left plantar heel Laterality: Left Wound Grade/Stage: Taylor stage I Type of Debridement: Excisional debridement Anesthesia Used: 5% Lidocaine Gel Depth: Down to and including healthy tissue and in the subcutaneous layer Percentage of wound debrided: 100 Instrument Used: 3mm curette Tissue Removed: Fibrous, devitalized subcutaneous, biofilm, slough Severity: Fat Layer Exposed Amount of bleeding with debridement: Mild Bleeding Controlled with: Compression and gauze Patient tolerated procedure: Patient tolerated procedure well Post-Debridement Measurements and Additional Note: Post-Debridement Measurements/Treatment WC - Nurse 1 - General Ulcer Assessment Start: 06/15/22 08:32 Freq: Status: Active Protocol: OLGA Activity Type Activity Date Activity User E-sign Co-sign Detail Recorded Client Recorded Date Recorded By Document 06/15/22 08:32 RB Desktop 06/15/22 08:44 RB Document 06/23/22 08:31 AK [id number] 06/23/22 08:36 AK Document 06/30/22 08:49 AK [id number] 06/30/22 08:52 AK 06/15/22 06/23/22 06/30/22 08:32 08:31 08:49 WC - Today's Visit Information Type of service Follow-up Visit Follow-up Visit Follow-up Visit (Physician/BLOW PIT OPERATOR (Physician/BLOW PIT OPERATOR (Physician/BLOW PIT OPERATOR ) ) ) Arrival Mode Ambulatory Ambulatory Ambulatory Transfer Assistance None Patient Identification Verified (Name & Yes Yes Yes ) Patient Requires Transmission-Based No No No Precautions Safety Precautions NA NA Height and Weight Body Mass Index (BMI) 37.2 37.2 37.2 BMI Classification Obese Obese Obese Vital Signs Temperature (97.8 F-99.1 F) 96.4 F L 96.6 F L 95.4 F L Temperature Source Temporal Temporal Temporal Pulse Rate (60-100) 103 H 78 96 Pulse Location Monitor Monitor Monitor Respiratory Rate (12-18) 18 Respiratory rate source Observation Blood Pressure (90/60-120/80) 144/81 H 137/77 H 140/74 H Blood Pressure Mean (mm Hg) 102 97 96 Source Monitor Monitor Monitor Position Semi-Fowlers Blood Pressure Location Left Arm History Since Last Visit- (Skip if this is Patient's initial visit) Have you changed medications since your No No No last visit? Any new allergies or adverse reactions No No No Had a fall/change in ADL's that may No No No increase risk of falls Signs or symptoms of abuse and/or No No neglect since last visit Have you been in the hospital since your No No No last visit? Has dressing in place as prescribed Yes Yes Yes Has compression in place as prescribed No N/A Yes Has offloadiing in place as prescribed Yes Yes Yes Experienced any changes in pain level or No No No management Left Footwear Total Contact Surgical Shoe Removable Cast Cast with pressure Walker/Walking relief insole Boot Right Footwear Surgical Shoe Removable Cast Regular Shoe with pressure Walker/Walking relief insole Boot Pain Scale: 0-10 Numeric Is Patient Pain Free? Yes Yes Yes WC - Nurse 1 - General Ulcer Measurement Start: 06/15/22 08:32 Freq: Status: Active Protocol: Activity Type Activity Date Activity User E-sign Co-sign Detail Recorded Client Recorded Date Recorded By Document 06/15/22 08:32 RB Desktop 06/15/22 08:44 RB Document 06/23/22 08:31 AK [id number] 06/23/22 08:36 AK Document 06/30/22 08:49 AK [id number] 06/30/22 08:52 AK 06/15/22 06/23/22 06/30/22 08:32 08:31 08:49 Wound Center Nurse 1 11-right 5th methead -Combined with other wound No -Current Size (cm) - Length 0.1 1 -Current Size (cm) - Width 0.8 0.9 -Current Size (cm) - Depth 0.1 0.3 -Total Square Cm 0.08 0.9 -Tunneling No -Undermining/Tunneling No -Circular Undermining No -Exudate Amt Medium Medium -Exudate Type Serosanguineous Serosanguineous -Wound Margin Thickened Distinct, Outline Attached -Granulation Amt Medium (34-66%) Large (67-100%) -Granulation Quality [place] -Slough/Fibrin Yes -Necrosis Amt Medium (34-66%) None Present (0 %) -Necrotic Tissue Type Adherent Slough -Structure Exposed N/A -Texture (Cecelia-wound Skin Appearance) Assessed,Callus Assessed, Scarring -Moisture (Cecelia-wound Skin Appearance) Assessed No Abnormality, Assessed -Color (Cecelia-wound Skin Appearance) Assessed No Abnormality, Assessed -Temperature (Cecelia-wound Skin No Abnormality No Abnormality Appearance) (Pt Warm) (Pt Warm) -Tenderness on Palpation (Cecelia-wound No No Skin Appearance) -Ulcer Cleansing Wound Cleanser Rinsed/ Irrigated with Saline -Foul Odor after Cleansing No No -Anesthetic Used 5% Lidocaine 5% Lidocaine Gel Gel 9. R plantar -Combined with other wound No No -Current Size (cm) - Length 1.1 1 1.5 -Current Size (cm) - Width 0.8 2 1 -Current Size (cm) - Depth 0.2 0.2 0.3 -Total Square Cm 0.88 2 1.5 -Date of Last Picture (Recall this 06/30/22 field) -Photo Taken Yes -Tunneling No -Undermining/Tunneling No -Circular Undermining No -Change in Wound Grade/Stage No -Exudate Amt Small Large -Exudate Type Serosanguineous Serosanguineous -Wound Margin Distinct, Distinct, Outline Outline Attached Attached -Granulation Amt Medium (34-66%) Medium (34-66%) -Granulation Quality [place] -Slough/Fibrin Yes -Necrosis Amt Small (1-33%) Small (1-33%) -Necrotic Tissue Type Adherent Slough Adherent Slough -Structure Exposed N/A -Texture (Cecelia-wound Skin Appearance) Assessed, Assessed,Callus Scarring -Moisture (Cecelia-wound Skin Appearance) Assessed, No Abnormality, Maceration Assessed -Color (Cecelia-wound Skin Appearance) No Abnormality, No Abnormality, Assessed Assessed -Temperature (Cecelia-wound Skin No Abnormality No Abnormality Appearance) (Pt Warm) (Pt Warm) -Tenderness on Palpation (Cecelia-wound No No Skin Appearance) -Ulcer Cleansing Rinsed/ Soap and Water Irrigated with Saline -Foul Odor after Cleansing No No -Anesthetic Used 5% Lidocaine 5% Lidocaine Gel Gel 8. L heel -Combined with other wound No No -Current Size (cm) - Length 1.2 1 -Current Size (cm) - Width 2.1 1.5 -Current Size (cm) - Depth 0.8 0.2 -Total Square Cm 2.52 1.5 -Date of Last Picture (Recall this 06/30/22 field) -Photo Taken Yes -Tunneling No No -Undermining/Tunneling No No -Circular Undermining No No -Change in Wound Grade/Stage No -Exudate Amt Medium Large -Exudate Type Serosanguineous Serosanguineous -Wound Margin Thickened Distinct, Outline Attached -Granulation Amt Medium (34-66%) Large (67-100%) -Granulation Quality [place] -Slough/Fibrin Yes Yes -Necrosis Amt Medium (34-66%) Small (1-33%) -Necrotic Tissue Type Adherent Slough Adherent Slough -Structure Exposed N/A N/A -Texture (Cecelia-wound Skin Appearance) Assessed,Callus Assessed,Callus -Moisture (Cecelia-wound Skin Appearance) Assessed No Abnormality, Assessed -Color (Cecelia-wound Skin Appearance) Assessed No Abnormality, Assessed -Temperature (Cecelia-wound Skin No Abnormality No Abnormality Appearance) (Pt Warm) (Pt Warm) -Tenderness on Palpation (Cecelia-wound No No Skin Appearance) -Ulcer Cleansing Wound Cleanser Soap and Water -Foul Odor after Cleansing No No -Anesthetic Used 5% Lidocaine 5% Lidocaine Gel Gel WC - Nurse 2 - General Ulcer CM Notes Start: 06/15/22 08:32 Freq: Status: Active Protocol: Activity Type Activity Date Activity User E-sign Co-sign Detail Recorded Client Recorded Date Recorded By Document 06/15/22 08:51 STEPHANIE [id number] 06/15/22 08:54 JF Document 06/23/22 09:27 PL [id number] 06/23/22 09:30 PL Edit Result 06/23/22 09:27 PL (1) [id number] 06/23/22 09:32 PL (1) 8. L heel - Time => 08:46 - Correct Patient => Yes - Correct Side, Site, Position => Yes - Correct Procedure => Yes - Procedure Performed => Yes - Type of Procedure => Debridement - Clinical Debridement => Subcutaneous - Tissue Removed => Subcutaneous - Post Debridement (cm) - Length => 1.0 - Post Debridement (cm) - Width => 2.0 - Post Debridement (cm) - Depth => 0.6 - Total Square (Post) (cm) => 2.00 - Area of Debridement (cm) - Length => 1.0 - Area of Debridement (cm) - Width => 2.0 - Total Square (Area) (cm) => 2.00 - Tunneling => No - Undermining/Tunneling => No - Circular Undermining => No - Wound/Ulcer Outcome => Not Healed - Ulcer Cleansing => Rinsed/Irrigated => with Saline - Foul Odor after Cleansing => No - Bioengineered Tissue => No - Bleeding Controlled with => Pressure - Treatment Response => Procedure => Tolerated Well - Debridement - Subq, 1st 20sq cm => No 06/15/22 06/23/22 08:51 09:27 Wound Center Nurse 2 11-right 5th methead -Time 08:51 -Correct Patient Yes -Correct Side, Site, Position Yes -Correct Procedure Yes -Procedure Performed Yes No -Type of Procedure Debridement -Clinical Debridement Subcutaneous -Tissue Removed Subcutaneous -Post Debridement (cm) - Length 0.2 -Post Debridement (cm) - Width 0.8 -Post Debridement (cm) - Depth 0.1 -Total Square (Post) (cm) 0.16 -Area of Debridement (cm) - Length 0.2 -Area of Debridement (cm) - Width 0.8 -Total Square (Area) (cm) 0.16 -Tunneling No -Undermining/Tunneling No -Circular Undermining No -Wound/Ulcer Outcome Not Healed Healed- Epithelialized -Ulcer Cleansing Rinsed/ Rinsed/ Irrigated with Irrigated with Saline Saline -Foul Odor after Cleansing No No -Bioengineered Tissue No No -Bleeding Controlled with Pressure -Treatment Response Procedure Tolerated Well -Offloading Yes -Type of Offloading Surgical Shoe -Debridement - Subq, 1st 20sq cm Yes 9. R plantar -Time 08:51 08:46 -Correct Patient Yes Yes -Correct Side, Site, Position Yes Yes -Correct Procedure Yes Yes -Procedure Performed Yes Yes -Type of Procedure Debridement Debridement -Clinical Debridement Subcutaneous Subcutaneous -Tissue Removed Subcutaneous Subcutaneous -Post Debridement (cm) - Length 1.2 1.0 -Post Debridement (cm) - Width 0.8 2.0 -Post Debridement (cm) - Depth 0.2 0.2 -Total Square (Post) (cm) 0.96 2.00 -Area of Debridement (cm) - Length 1.2 1.0 -Area of Debridement (cm) - Width 0.8 2.0 -Total Square (Area) (cm) 0.96 2.00 -Tunneling No No -Undermining/Tunneling No No -Circular Undermining No No -Wound/Ulcer Outcome Not Healed Not Healed -Ulcer Cleansing Rinsed/ Rinsed/ Irrigated with Irrigated with Saline Saline -Foul Odor after Cleansing No No -Bioengineered Tissue No No -Bleeding Controlled with Pressure Pressure -Treatment Response Procedure Procedure Tolerated Well Tolerated Well -Offloading Yes -Type of Offloading Surgical Shoe -Debridement - Subq, 1st 20sq cm No Yes 8. L heel -Time 08:52 08:46 -Correct Patient Yes Yes -Correct Side, Site, Position Yes Yes -Correct Procedure Yes Yes -Procedure Performed Yes Yes -Type of Procedure Debridement Debridement -Clinical Debridement Subcutaneous Subcutaneous -Tissue Removed Subcutaneous Subcutaneous -Post Debridement (cm) - Length 1.2 1.0 -Post Debridement (cm) - Width 2.2 2.0 -Post Debridement (cm) - Depth 0.7 0.6 -Total Square (Post) (cm) 2.64 2.00 -Area of Debridement (cm) - Length 1.2 1.0 -Area of Debridement (cm) - Width 2.2 2.0 -Total Square (Area) (cm) 2.64 2.00 -Tunneling No No -Undermining/Tunneling No No -Circular Undermining No No -Wound/Ulcer Outcome Not Healed Not Healed -Ulcer Cleansing Rinsed/ Rinsed/ Irrigated with Irrigated with Saline Saline -Foul Odor after Cleansing No No -Bioengineered Tissue Yes No -Type of Bioengineered Tissue Epifix -Expiration Date 03/09/27 -Product Lot Number [id number] -Percent Used 100 -Lot number of Saline Used [id number] -Bleeding Controlled with Pressure Pressure -Treatment Response Procedure Procedure Tolerated Well Tolerated Well -Offloading Yes -Type of Offloading Total Contact Total Contact Cast (TCC) - Cast (TCC) - Left ($) Left ($) -Debridement - Subq, 1st 20sq cm No No -Apply Skin Sub - 1st 25 sq cm - Feet 1 -Epifix (per sq cm) 4 Pain Scale: 0-10 Numeric Is Patient Pain Free? Yes Yes WC - Nurse 3 - General Ulcer D/C NN Start: 06/15/22 08:32 Freq: Status: Active Protocol: Activity Type Activity Date Activity User E-sign Co-sign Detail Recorded Client Recorded Date Recorded By Document 06/23/22 09:00 RD [id number] 06/23/22 09:02 RD 06/23/22 09:00 Wound Care Nurse 3 11-right 5th methead -Ulcer Cleansing Rinsed/ Irrigated with Saline -Primary Dressing Applied Promogran Neida Matter -Primary Dressing Covered/Secured with Dry Gauze, Secured with Tape -Promogran Neida Matter 1 Left -Other TCC UNDERCASTING Pain Scale: 0-10 Numeric Is Patient Pain Free? Yes Additional Wound Wound debrided: Sub first metatarsal head Laterality: Right Wound Grade/Stage: Taylor stage I Type of Debridement: Excisional debridement Anesthesia Used: 5% Lidocaine Gel Depth: Down to and including healthy tissue and in the subcutaneous layer Percentage of wound debrided: 100 Instrument Used: 3mm curette Tissue Removed: Fibrous, devitalized subcutaneous, biofilm, slough Severity: Fat Layer Exposed Amount of bleeding with debridement: Mild Bleeding Controlled with: Compression and gauze Patient tolerated procedure: Patient tolerated procedure well Assessment/Plan Assessment/Plan (1) Ulcer of right foot with fat layer exposed: CODE(S): L97.512 - Non-pressure chronic ulcer of other part of right foot with fat layer exposed (2) Ulcer of left foot with fat layer exposed: CODE(S): L97.522 - Non-pressure chronic ulcer of other part of left foot with fat layer exposed (3) Delayed wound healing: CODE(S): T14.8XXD - Other injury of unspecified body region, subsequent encounter PLAN: Plan Patient seen and evaluated I?reviewed and discussed her case.? Subcutaneous excisional debridement was performed as noted in the clinical panel to bilateral ulceration sites. Diagnostic data was also reviewed. Right subfirst metatarsal head ulceration measures 1.2 cm x 1 cm x 0.1 cm. No signs of infection Left plantar heel ulceration measures 1.1 cm x 1.8 cm x 0.1 cm. No signs of infection The following recommendations were made. Change dressing daily with Neida and dry sterile dressing to the right heel daily.? Neida applied with dry sterile dressing to the left heel and sub first metatarsal. offloading: To maintain strict nonweightbearing status with the knee roller, left with total contact cast and heel weightbearing to right in surgical shoe.?Total contact cast was applied today according to standard protocol (left) in a well-padded in neutral position after verbal consent was obtained. She tolerated this well and will keep this clean, dry, and intact.? Verbal consent was obtained prior to application and she will keep this clean and dry and intact as well.? Her right foot surgical shoe was evaluated, her offloading dual density Plastizote liners to take pressure off of her subfirst and sub fifth metatarsal head sites were updated last week.? She was still encouraged not to do routine walking with this device to optimize healing. Infection:? 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 Concern is deeper infection involvement due to bulbous toe appearance including potential osteomyelitis.? She has been taking doxycycline with mild improvement however this is in regards to reduced erythema.? It is noted she has continued communication with deep structures including the bone and there was bone that was debrided previously from the left second toe by Dr. Gutierrez.? Infectious disease specialist, Dr. Reyes has seen and evaluated. His input is greatly appreciated.? She was advised to continue doxycycline and Augmentin has also be added to her regimen.? She understands amputation will be recommended if she fails oral antibiotic treatment course of at least 6 weeks. ID recs appreciated.? Improvement noted and infection resolved. nutrition: She was advised to maintain a balanced whole food diet with adequate protein and nutrients to optimize healing.? To resume Yosvany supplementation use. ? Host factors. Neuropathy complicates her case. To monitor close due to inability to sensate as normal.? She was also advised to avoid prednisone use and will also hold the Plaquenil at this time unless she has an intense flareup.? Dr. Gutierrez previously reviewed verbally with Dr. Pratt.? ?She also has a calcaneus gait with prior surgical intervention including a tendon transfer which is compromised with a fall in the early postoperative setting.? We previously discussed options to surgically alleviate her calcaneus gait including retightening the Achilles tendon or other posterior leg muscles.? She has had updated vascular (arterial) and doppler with reflux (venous) to assess for any abnormalities.? The arterial studies were reviewed and no arterial disease or occlusions were identified. ?Venous insufficiency work-up is still pending. Diagnostic data: Her bilateral foot xrays (three views) were reviewed from 04-06-2022 without soft tissue emphysema, osseous destruction or foreign body.? Chip fracture to medial proximal phalanx base unchanged noted to the right foot without additional osseous destruction.? Labs reviewed from 02/15/22 with wbc 9.4, no renal dysfunction or other gross abnormalities. I have discussed progressing signs of infection with her again today. She was instructed if she notices any increasing redness that moves up the leg, any malodor, any purulent drainage emerging from the wound, or if she experiences any nausea, vomiting, fever greater than 101 degrees, or chills that she is to report straight to the emergency department as these are progressing signs of an infection. She voices verbal understanding of this today. She will return to the wound care center in 1 week for continued wound care of bilateral feet. Note: [employer] speech recognition rehab office coordinator software was used to create portions of this document. Sound-alike and misspelled words, as well as other rehab office coordinator errors may be contained in the documentation. ?
[2022-07-07 08:28] VITALS: BP 128/75; PULSE 78; TEMP 36.4; BMI 37.2
--- NOTE | 2022-07-07 08:42 | PCM.WC.PN ---
History of Present Illness Date of Service: 07/07/22 Chief Complaint: Left heel ulcer right foot ulcers History of Wound: This pleasant 56-year-old female with significant past medical history of lupus, history of panic attack, depression, history of delayed healing, hyperlipidemia, irritable bowel syndrome, memory loss, restless leg syndrome, and obstructive sleep apnea is here for follow-up of left heel and right foot ulcers. She is ready for total contact cast application again today. She wears an offloading shoe to the right foot also for two ulcer sites. She denies fever, chill, nausea, vomiting, or other illness. Progress of Wound: improving (all) Subjective Subjective This is a 59-year-old female who presents today to the wound care center for follow-up of a left plantar heel ulceration and right foot subfirst metatarsal head ulceration.? She had a total contact cast application last week and states this continues to go well.? She denies any constitutional symptoms today.? She has no further complaints today Objective Data Objective Data Vital Signs: Vital Signs Temp Pulse Resp BP 97.6 F L 78 18 128/75 H 07/07/22 08:28 07/07/22 08:28 06/15/22 08:32 07/07/22 08:28 Weight: 111.13 kg Body Mass Index (BMI) 37.2 Physical Exam Const alert and oriented x3 General Appearance: cooperative Extremity normal capillary refill and no calf tenderness Extremity Narrative: Bilateral pedal pulses palpable but diminished. +1 edema bilateral lower extremities. Skin color pink, with no pain or tenderness with palpation. Skin Wound Narrative: Left heel ulcer is beefy pink granulation tissue. No purulent drainage, no odor, no signs of infection. Right plantar ulcer, medial to 1st metatarsal head with base of ulcer beefy pink granulation tissue. Right plantar lateral foot ulceration has healed. Left heel reduced size with 100% healthy granular base also. no maceration bilateral Debridement Note Debridement Note Wound debrided: Sub first metatarsal head Laterality: Right Wound Grade/Stage: Taylor stage I Type of Debridement: Excisional debridement Anesthesia Used: 5% Lidocaine Gel Depth: Down to and including healthy tissue and in the subcutaneous layer Percentage of wound debrided: 100 Instrument Used: 3mm curette Tissue Removed: Fibrous, devitalized subcutaneous, biofilm, slough Severity: Fat Layer Exposed Amount of bleeding with debridement: Mild Bleeding Controlled with: Compression and gauze Patient tolerated procedure: Patient tolerated procedure well Post-Debridement Measurements and Additional Note: Post-Debridement Measurements/Treatment WC - Nurse 1 - General Ulcer Assessment Start: 06/15/22 08:32 Freq: Status: Active Protocol: OLGA Activity Type Activity Date Activity User E-sign Co-sign Detail Recorded Client Recorded Date Recorded By Document 06/15/22 08:32 RB Desktop 06/15/22 08:44 RB Document 06/23/22 08:31 AK [id number] 06/23/22 08:36 AK Document 06/30/22 08:49 AK [id number] 06/30/22 08:52 AK Document 07/07/22 08:28 KR [id number] 07/07/22 08:38 KR 06/15/22 06/23/22 06/30/22 08:32 08:31 08:49 WC - Today's Visit Information Type of service Follow-up Visit Follow-up Visit Follow-up Visit (Physician/ROLL LINE OPERATOR (Physician/ROLL LINE OPERATOR (Physician/ROLL LINE OPERATOR ) ) ) Arrival Mode Ambulatory Ambulatory Ambulatory Transfer Assistance None Patient Identification Verified (Name & Yes Yes Yes ) Patient Requires Transmission-Based No No No Precautions Safety Precautions NA NA Height and Weight Body Mass Index (BMI) 37.2 37.2 37.2 BMI Classification Obese Obese Obese Vital Signs Temperature (97.8 F-99.1 F) 96.4 F L 96.6 F L 95.4 F L Temperature Source Temporal Temporal Temporal Pulse Rate (60-100) 103 H 78 96 Pulse Location Monitor Monitor Monitor Respiratory Rate (12-18) 18 Respiratory rate source Observation Blood Pressure (90/60-120/80) 144/81 H 137/77 H 140/74 H Blood Pressure Mean (mm Hg) 102 97 96 Source Monitor Monitor Monitor Position Semi-Fowlers Blood Pressure Location Left Arm History Since Last Visit- (Skip if this is Patient's initial visit) Have you changed medications since your No No No last visit? Any new allergies or adverse reactions No No No Had a fall/change in ADL's that may No No No increase risk of falls Signs or symptoms of abuse and/or No No neglect since last visit Have you been in the hospital since your No No No last visit? Has dressing in place as prescribed Yes Yes Yes Has compression in place as prescribed No N/A Yes Has offloadiing in place as prescribed Yes Yes Yes Experienced any changes in pain level or No No No management Left Footwear Total Contact Surgical Shoe Removable Cast Cast with pressure Walker/Walking relief insole Boot Right Footwear Surgical Shoe Removable Cast Regular Shoe with pressure Walker/Walking relief insole Boot Pain Scale: 0-10 Numeric Is Patient Pain Free? Yes Yes Yes 07/07/22 08:28 WC - Today's Visit Information Type of service Follow-up Visit (Physician/ROLL LINE OPERATOR ) Arrival Mode Ambulatory Transfer Assistance Patient Identification Verified (Name & Yes ) Patient Requires Transmission-Based Precautions Safety Precautions Height and Weight Body Mass Index (BMI) 37.2 BMI Classification Obese Vital Signs Temperature (97.8 F-99.1 F) 97.6 F L Temperature Source Temporal Pulse Rate (60-100) 78 Pulse Location Monitor Respiratory Rate (12-18) Respiratory rate source Blood Pressure (90/60-120/80) 128/75 H Blood Pressure Mean (mm Hg) 92 Source Monitor Position Sitting Blood Pressure Location Right Arm History Since Last Visit- (Skip if this is Patient's initial visit) Have you changed medications since your No last visit? Any new allergies or adverse reactions No Had a fall/change in ADL's that may No increase risk of falls Signs or symptoms of abuse and/or No neglect since last visit Have you been in the hospital since your No last visit? Has dressing in place as prescribed Yes Has compression in place as prescribed N/A Has offloadiing in place as prescribed Yes Experienced any changes in pain level or No management Left Footwear Total Contact Cast Right Footwear Regular Shoe Pain Scale: 0-10 Numeric Is Patient Pain Free? Yes - Nurse 1 - General Ulcer Measurement Start: 06/15/22 08:32 Freq: Status: Active Protocol: Activity Type Activity Date Activity User E-sign Co-sign Detail Recorded Client Recorded Date Recorded By Document 06/15/22 08:32 RB Desktop 06/15/22 08:44 RB Document 06/23/22 08:31 AK [id number] 06/23/22 08:36 AK Document 06/30/22 08:49 AK [id number] 06/30/22 08:52 AK Document 07/07/22 08:28 KR [id number] 07/07/22 08:38 KR 06/15/22 06/23/22 06/30/22 08:32 08:31 08:49 Wound Center Nurse 1 11-right 5th methead -Combined with other wound No -Current Size (cm) - Length 0.1 1 -Current Size (cm) - Width 0.8 0.9 -Current Size (cm) - Depth 0.1 0.3 -Total Square Cm 0.08 0.9 -Tunneling No -Undermining/Tunneling No -Circular Undermining No -Exudate Amt Medium Medium -Exudate Type Serosanguineous Serosanguineous -Wound Margin Thickened Distinct, Outline Attached -Granulation Amt Medium (34-66%) Large (67-100%) -Granulation Quality [place] -Slough/Fibrin Yes -Necrosis Amt Medium (34-66%) None Present (0 %) -Necrotic Tissue Type Adherent Slough -Structure Exposed N/A -Texture (Cecelia-wound Skin Appearance) Assessed,Callus Assessed, Scarring -Moisture (Cecelia-wound Skin Appearance) Assessed No Abnormality, Assessed -Color (Cecelia-wound Skin Appearance) Assessed No Abnormality, Assessed -Temperature (Cecelia-wound Skin No Abnormality No Abnormality Appearance) (Pt Warm) (Pt Warm) -Tenderness on Palpation (Cecelia-wound No No Skin Appearance) -Ulcer Cleansing Wound Cleanser Rinsed/ Irrigated with Saline -Foul Odor after Cleansing No No -Anesthetic Used 5% Lidocaine 5% Lidocaine Gel Gel 9. R plantar -Combined with other wound No No -Current Size (cm) - Length 1.1 1 1.5 -Current Size (cm) - Width 0.8 2 1 -Current Size (cm) - Depth 0.2 0.2 0.3 -Total Square Cm 0.88 2 1.5 -Date of Last Picture (Recall this 06/30/22 field) -Photo Taken Yes -Tunneling No -Undermining/Tunneling No -Circular Undermining No -Change in Wound Grade/Stage No -Exudate Amt Small Large -Exudate Type Serosanguineous Serosanguineous -Wound Margin Distinct, Distinct, Outline Outline Attached Attached -Granulation Amt Medium (34-66%) Medium (34-66%) -Granulation Quality [place] -Slough/Fibrin Yes -Necrosis Amt Small (1-33%) Small (1-33%) -Necrotic Tissue Type Adherent Slough Adherent Slough -Structure Exposed N/A -Texture (Cecelia-wound Skin Appearance) Assessed, Assessed,Callus Scarring -Moisture (Cecelia-wound Skin Appearance) Assessed, No Abnormality, Maceration Assessed -Color (Cecelia-wound Skin Appearance) No Abnormality, No Abnormality, Assessed Assessed -Temperature (Cecelia-wound Skin No Abnormality No Abnormality Appearance) (Pt Warm) (Pt Warm) -Tenderness on Palpation (Cecelia-wound No No Skin Appearance) -Ulcer Cleansing Rinsed/ Soap and Water Irrigated with Saline -Foul Odor after Cleansing No No -Anesthetic Used 5% Lidocaine 5% Lidocaine Gel Gel 8. L heel -Combined with other wound No No -Current Size (cm) - Length 1.2 1 -Current Size (cm) - Width 2.1 1.5 -Current Size (cm) - Depth 0.8 0.2 -Total Square Cm 2.52 1.5 -Date of Last Picture (Recall this 06/30/22 field) -Photo Taken Yes -Tunneling No No -Undermining/Tunneling No No -Circular Undermining No No -Change in Wound Grade/Stage No -Exudate Amt Medium Large -Exudate Type Serosanguineous Serosanguineous -Wound Margin Thickened Distinct, Outline Attached -Granulation Amt Medium (34-66%) Large (67-100%) -Granulation Quality [place] -Slough/Fibrin Yes Yes -Necrosis Amt Medium (34-66%) Small (1-33%) -Necrotic Tissue Type Adherent Slough Adherent Slough -Structure Exposed N/A N/A -Texture (Cecelia-wound Skin Appearance) Assessed,Callus Assessed,Callus -Moisture (Cecelia-wound Skin Appearance) Assessed No Abnormality, Assessed -Color (Cecelia-wound Skin Appearance) Assessed No Abnormality, Assessed -Temperature (Cecelia-wound Skin No Abnormality No Abnormality Appearance) (Pt Warm) (Pt Warm) -Tenderness on Palpation (Cecelia-wound No No Skin Appearance) -Ulcer Cleansing Wound Cleanser Soap and Water -Foul Odor after Cleansing No No -Anesthetic Used 5% Lidocaine 5% Lidocaine Gel Gel Left Calf (cm) Left Ankle (cm) 07/07/22 08:28 Wound Center Nurse 1 11-right 5th methead -Combined with other wound -Current Size (cm) - Length -Current Size (cm) - Width -Current Size (cm) - Depth -Total Square Cm -Tunneling -Undermining/Tunneling -Circular Undermining -Exudate Amt -Exudate Type -Wound Margin -Granulation Amt -Granulation Quality -Slough/Fibrin -Necrosis Amt -Necrotic Tissue Type -Structure Exposed -Texture (Cecelia-wound Skin Appearance) -Moisture (Cecelia-wound Skin Appearance) -Color (Cecelia-wound Skin Appearance) -Temperature (Cecelia-wound Skin Appearance) -Tenderness on Palpation (Cecelia-wound Skin Appearance) -Ulcer Cleansing -Foul Odor after Cleansing -Anesthetic Used 9. R plantar -Combined with other wound -Current Size (cm) - Length 1.1 -Current Size (cm) - Width 1.4 -Current Size (cm) - Depth 0.2 -Total Square Cm 1.54 -Date of Last Picture (Recall this field) -Photo Taken -Tunneling -Undermining/Tunneling -Circular Undermining -Change in Wound Grade/Stage -Exudate Amt Medium -Exudate Type Serosanguineous -Wound Margin Distinct, Outline Attached -Granulation Amt Large (67-100%) -Granulation Quality Red -Slough/Fibrin -Necrosis Amt None Present (0 %) -Necrotic Tissue Type -Structure Exposed -Texture (Cecelia-wound Skin Appearance) Assessed,Callus ,Scarring -Moisture (Cecelia-wound Skin Appearance) No Abnormality, Assessed -Color (Cecelia-wound Skin Appearance) No Abnormality, Assessed -Temperature (Cecelia-wound Skin No Abnormality Appearance) (Pt Warm) -Tenderness on Palpation (Cecelia-wound No Skin Appearance) -Ulcer Cleansing Soap and Water -Foul Odor after Cleansing No -Anesthetic Used 5% Lidocaine Gel 8. L heel -Combined with other wound -Current Size (cm) - Length 1.1 -Current Size (cm) - Width 1.5 -Current Size (cm) - Depth 0.3 -Total Square Cm 1.65 -Date of Last Picture (Recall this field) -Photo Taken -Tunneling -Undermining/Tunneling -Circular Undermining -Change in Wound Grade/Stage -Exudate Amt Medium -Exudate Type Serosanguineous -Wound Margin Distinct, Outline Attached -Granulation Amt Large (67-100%) -Granulation Quality Red -Slough/Fibrin -Necrosis Amt None Present (0 %) -Necrotic Tissue Type -Structure Exposed -Texture (Cecelia-wound Skin Appearance) Assessed,Callus ,Scarring -Moisture (Cecelia-wound Skin Appearance) No Abnormality, Assessed -Color (Cecelia-wound Skin Appearance) No Abnormality, Assessed -Temperature (Cecelia-wound Skin No Abnormality Appearance) (Pt Warm) -Tenderness on Palpation (Cecelia-wound No Skin Appearance) -Ulcer Cleansing Soap and Water -Foul Odor after Cleansing No -Anesthetic Used 5% Lidocaine Gel Left Calf (cm) 38.3 Left Ankle (cm) 22 WC - Nurse 2 - General Ulcer CM Notes Start: 06/15/22 08:32 Freq: Status: Active Protocol: Activity Type Activity Date Activity User E-sign Co-sign Detail Recorded Client Recorded Date Recorded By Document 06/15/22 08:51 [id number] 06/15/22 08:54 JF Document 06/23/22 09:27 PL [id number] 06/23/22 09:30 PL Edit Result 06/23/22 09:27 PL (1) [id number] 06/23/22 09:32 PL Document 06/30/22 11:27 PL [id number] 06/30/22 11:29 PL (1) 8. L heel - Time => 08:46 - Correct Patient => Yes - Correct Side, Site, Position => Yes - Correct Procedure => Yes - Procedure Performed => Yes - Type of Procedure => Debridement - Clinical Debridement => Subcutaneous - Tissue Removed => Subcutaneous - Post Debridement (cm) - Length => 1.0 - Post Debridement (cm) - Width => 2.0 - Post Debridement (cm) - Depth => 0.6 - Total Square (Post) (cm) => 2.00 - Area of Debridement (cm) - Length => 1.0 - Area of Debridement (cm) - Width => 2.0 - Total Square (Area) (cm) => 2.00 - Tunneling => No - Undermining/Tunneling => No - Circular Undermining => No - Wound/Ulcer Outcome => Not Healed - Ulcer Cleansing => Rinsed/Irrigated => with Saline - Foul Odor after Cleansing => No - Bioengineered Tissue => No - Bleeding Controlled with => Pressure - Treatment Response => Procedure => Tolerated Well - Debridement - Subq, 1st 20sq cm => No 06/15/22 06/23/22 06/30/22 08:51 09:27 11:27 Wound Center Nurse 2 11-right 5th methead -Time 08:51 -Correct Patient Yes -Correct Side, Site, Position Yes -Correct Procedure Yes -Procedure Performed Yes No -Type of Procedure Debridement -Clinical Debridement Subcutaneous -Tissue Removed Subcutaneous -Post Debridement (cm) - Length 0.2 -Post Debridement (cm) - Width 0.8 -Post Debridement (cm) - Depth 0.1 -Total Square (Post) (cm) 0.16 -Area of Debridement (cm) - Length 0.2 -Area of Debridement (cm) - Width 0.8 -Total Square (Area) (cm) 0.16 -Tunneling No -Undermining/Tunneling No -Circular Undermining No -Wound/Ulcer Outcome Not Healed Healed- Epithelialized -Ulcer Cleansing Rinsed/ Rinsed/ Irrigated with Irrigated with Saline Saline -Foul Odor after Cleansing No No -Bioengineered Tissue No No -Bleeding Controlled with Pressure -Treatment Response Procedure Tolerated Well -Offloading Yes -Type of Offloading Surgical Shoe -Debridement - Subq, 20sq cm Yes 9. R plantar -Time 08:51 08:46 08:52 -Correct Patient Yes Yes Yes -Correct Side, Site, Position Yes Yes Yes -Correct Procedure Yes Yes Yes -Procedure Performed Yes Yes Yes -Type of Procedure Debridement Debridement Debridement -Clinical Debridement Subcutaneous Subcutaneous Subcutaneous -Tissue Removed Subcutaneous Subcutaneous Subcutaneous -Post Debridement (cm) - Length 1.2 1.0 1.2 -Post Debridement (cm) - Width 0.8 2.0 1.0 -Post Debridement (cm) - Depth 0.2 0.2 0.1 -Total Square (Post) (cm) 0.96 2.00 1.20 -Area of Debridement (cm) - Length 1.2 1.0 1.2 -Area of Debridement (cm) - Width 0.8 2.0 1.0 -Total Square (Area) (cm) 0.96 2.00 1.20 -Tunneling No No No -Undermining/Tunneling No No No -Circular Undermining No No No -Wound/Ulcer Outcome Not Healed Not Healed Not Healed -Ulcer Cleansing Rinsed/ Rinsed/ Rinsed/ Irrigated with Irrigated with Irrigated with Saline Saline Saline -Foul Odor after Cleansing No No No -Bioengineered Tissue No No No -Bleeding Controlled with Pressure Pressure Pressure -Treatment Response Procedure Procedure Procedure Tolerated Well Tolerated Well Tolerated Well -Offloading Yes -Type of Offloading Surgical Shoe -Debridement - Subq, 1st 20sq cm No Yes No 8. L heel -Time 08:52 08:46 08:52 -Correct Patient Yes Yes Yes -Correct Side, Site, Position Yes Yes Yes -Correct Procedure Yes Yes Yes -Procedure Performed Yes Yes Yes -Type of Procedure Debridement Debridement Debridement -Clinical Debridement Subcutaneous Subcutaneous Subcutaneous -Tissue Removed Subcutaneous Subcutaneous Subcutaneous -Post Debridement (cm) - Length 1.2 1.0 1.1 -Post Debridement (cm) - Width 2.2 2.0 1.8 -Post Debridement (cm) - Depth 0.7 0.6 0.1 -Total Square (Post) (cm) 2.64 2.00 1.98 -Area of Debridement (cm) - Length 1.2 1.0 1.1 -Area of Debridement (cm) - Width 2.2 2.0 1.8 -Total Square (Area) (cm) 2.64 2.00 1.98 -Tunneling No No No -Undermining/Tunneling No No No -Circular Undermining No No No -Wound/Ulcer Outcome Not Healed Not Healed Not Healed -Ulcer Cleansing Rinsed/ Rinsed/ Rinsed/ Irrigated with Irrigated with Irrigated with Saline Saline Saline -Foul Odor after Cleansing No No No -Bioengineered Tissue Yes No No -Type of Bioengineered Tissue Epifix -Expiration Date 03/09/27 -Product Lot Number [id number] -Percent Used 100 -Lot number of Saline Used [id number] -Bleeding Controlled with Pressure Pressure Pressure -Treatment Response Procedure Procedure Procedure Tolerated Well Tolerated Well Tolerated Well -Offloading Yes -Type of Offloading Total Contact Total Contact Total Contact Cast (TCC) - Cast (TCC) - Cast (TCC) - Left ($) Left ($) Left ($) -Debridement - Subq, 1st 20sq cm No No Yes -Apply Skin Sub - 1st 25 sq cm - Feet 1 -Epifix (per sq cm) 4 Pain Scale: 0-10 Numeric Is Patient Pain Free? Yes Yes Yes WC - Nurse 3 - General Ulcer D/C NN Start: 06/15/22 08:32 Freq: Status: Active Protocol: Activity Type Activity Date Activity User E-sign Co-sign Detail Recorded Client Recorded Date Recorded By Document 06/23/22 09:00 KR [id number] 06/23/22 09:02 KR Document 06/30/22 09:50 KR [id number] 06/30/22 09:51 KR 06/23/22 06/30/22 09:00 09:50 Wound Care Nurse 3 11-right 5th methead -Ulcer Cleansing Rinsed/ Irrigated with Saline -Primary Dressing Applied Promogran Neida Matter -Primary Dressing Covered/Secured with Dry Gauze, Secured with Tape -Promogran Neida Matter 1 9. R plantar -Ulcer Cleansing Rinsed/ Irrigated with Saline -Primary Dressing Applied Promogran Neida Matter -Promogran Neida Matter 1 Left -Other TCC tcc UNDERCASTING undercasting Pain Scale: 0-10 Numeric Is Patient Pain Free? Yes Yes WC - Visit Discharge Discharge Condition Stable Ambulatory Status Ambulatory Transportation Private Auto Additional Wound Wound debrided: Left heel Laterality: Left Wound Grade/Stage: Taylor stage I Type of Debridement: Excisional debridement Anesthesia Used: 5% Lidocaine Gel Depth: Down to and including healthy tissue and in the subcutaneous layer Percentage of wound debrided: 100 Instrument Used: 3mm curette Tissue Removed: Fibrous, devitalized subcutaneous, biofilm, slough Severity: Fat Layer Exposed Amount of bleeding with debridement: Mild Bleeding Controlled with: Compression and gauze Patient tolerated procedure: Patient tolerated procedure well Assessment/Plan Assessment/Plan (1) Ulcer of right foot with fat layer exposed: CODE(S): L97.512 - Non-pressure chronic ulcer of other part of right foot with fat layer exposed (2) Ulcer of left foot with fat layer exposed: CODE(S): L97.522 - Non-pressure chronic ulcer of other part of left foot with fat layer exposed (3) Delayed wound healing: CODE(S): T14.8XXD - Other injury of unspecified body region, subsequent encounter PLAN: Plan Patient seen and evaluated I?reviewed and discussed her case.? Subcutaneous excisional debridement was performed as noted in the clinical panel to bilateral ulceration sites. Diagnostic data was also reviewed. Right subfirst metatarsal head ulceration measures 1.4 cm x 1.2 cm x 0.1 cm. No signs of infection Left plantar heel ulceration measures 0.9 cm x 1.8 cm x 0.1 cm. No signs of infection The following recommendations were made. Change dressing daily with Neida and dry sterile dressing to the right heel daily.? Neida applied with dry sterile dressing to the left heel and sub first metatarsal. offloading: To maintain strict nonweightbearing status with the knee roller, left with total contact cast and heel weightbearing to right in surgical shoe.?Total contact cast was applied today according to standard protocol (left) in a well-padded in neutral position after verbal consent was obtained. She tolerated this well and will keep this clean, dry, and intact.? Verbal consent was obtained prior to application and she will keep this clean and dry and intact as well.? Her right foot surgical shoe was evaluated, her offloading dual density Plastizote liners to take pressure off of her subfirst and sub fifth metatarsal head sites were updated last week.? She was still encouraged not to do routine walking with this device to optimize healing. nutrition: She was advised to maintain a balanced whole food diet with adequate protein and nutrients to optimize healing.? To resume Yosvany supplementation use. ? Host factors. Neuropathy complicates her case. To monitor close due to inability to sensate as normal.? She was also advised to avoid prednisone use and will also hold the Plaquenil at this time unless she has an intense flareup.? Dr. Gutierrez previously reviewed verbally with Dr. Pratt.? ?She also has a calcaneus gait with prior surgical intervention including a tendon transfer which is compromised with a fall in the early postoperative setting.? We previously discussed options to surgically alleviate her calcaneus gait including retightening the Achilles tendon or other posterior leg muscles.? She has had updated vascular (arterial) and doppler with reflux (venous) to assess for any abnormalities.? The arterial studies were reviewed and no arterial disease or occlusions were identified. ?Venous insufficiency work-up is still pending. Diagnostic data: Her bilateral foot xrays (three views) were reviewed from 04-06-2022 without soft tissue emphysema, osseous destruction or foreign body.? Chip fracture to medial proximal phalanx base unchanged noted to the right foot without additional osseous destruction.? Labs reviewed from 02/15/22 with wbc 9.4, no renal dysfunction or other gross abnormalities. I have discussed progressing signs of infection with her again today. She was instructed if she notices any increasing redness that moves up the leg, any malodor, any purulent drainage emerging from the wound, or if she experiences any nausea, vomiting, fever greater than 101 degrees, or chills that she is to report straight to the emergency department as these are progressing signs of an infection. She voices verbal understanding of this today. She will return to the wound care center in 1 week for continued wound care of bilateral feet. Note: [employer] ([employer]) speech recognition avionics electronics technician software was used to create portions of this document. Sound-alike and misspelled words, as well as other avionics electronics technician errors may be contained in the documentation. ?
== END 2022-07-08 23:59 | disposition home or self-care (01) ==
LOC: WC 08:30
PROVIDERS: PCP Family Medicine; Referring Provider Podiatrist; Visit Provider Student in an Organized Health Care Education/Training Program
DX: L97.512 Non-pressure chronic ulcer of other part of right foot with fat layer exposed (principal); L97.422 Non-pressure chronic ulcer of left heel and midfoot with fat layer exposed; E78.5 Hyperlipidemia, unspecified; F32.A Depression, unspecified; K58.9 Irritable bowel syndrome, unspecified; G25.81 Restless legs syndrome; G47.33 Obstructive sleep apnea (adult) (pediatric); Z79.899 Other long term (current) drug therapy
CPT/HCPCS: 11042; 15275; 29445; Q4186

== ENCOUNTER 2022-08-02 09:00 | Outpatient (RCR) | payer MEDICARE, BC, SELFPAY ==
[2022-07-09 01:23] VITALS: BP 128/75; PULSE 78; RESP 18; TEMP 36.4; BMI 37.2
[2022-07-14 08:49] VITALS: BP 134/74; PULSE 101; TEMP 35.7; BMI 37.2
--- NOTE | 2022-07-14 08:57 | PCM.WC.PN ---
History of Present Illness Date of Service: 07/14/22 Chief Complaint: Left heel ulcer right foot ulcers History of Wound: This pleasant 56-year-old female with significant past medical history of lupus, history of panic attack, depression, history of delayed healing, hyperlipidemia, irritable bowel syndrome, memory loss, restless leg syndrome, and obstructive sleep apnea is here for follow-up of left heel and right foot ulcers. She is ready for total contact cast application again today. She wears an offloading shoe to the right foot also for two ulcer sites. She denies fever, chill, nausea, vomiting, or other illness. Subjective Subjective This is a 59-year-old female who presents today to the wound care center for follow-up of a left plantar heel ulceration and right foot subfirst metatarsal head ulceration.? She had a total contact cast application last week and states this continues to go well.? She feels her wounds are reducing in size. She denies any constitutional symptoms today.? She has no further complaints today Objective Data Objective Data Vital Signs: Vital Signs Temp Pulse Resp BP 97.6 F L 78 18 128/75 H 07/09/22 01:23 07/09/22 01:23 07/09/22 01:23 07/09/22 01:23 Weight: 111.13 kg Body Mass Index (BMI) 37.2 Physical Exam Const alert, oriented x3 and no apparent distress General Appearance: cooperative Lymph Lymphatic: no lymphadenopathy noted and no lymphedema noted Resp normal respiratory effort Cardio regular rate and regular rhythm Extremity no calf tenderness Extremity Narrative: Bilateral pedal pulses palpable but diminished.? +1 edema bilateral lower extremities.? Skin color pink, with no pain or tenderness with palpation.? Skin skin turgor normal and no jaundice Wound Narrative: Left heel ulcer is beefy pink granulation tissue.? No purulent drainage, no odor, no signs of infection. Right plantar ulcer, medial to 1st metatarsal head with base of ulcer beefy pink granulation tissue. Right plantar lateral foot ulceration has healed. Left heel reduced size with 100% healthy granular base also. no maceration bilateral Neuro oriented x3 and moves all extremities Debridement Note Debridement Note Wound debrided: Sub first metatarsal Laterality: Right Wound Grade/Stage: Taylor stage I Type of Debridement: Excisional debridement Anesthesia Used: 5% Lidocaine Gel Depth: Down to and including healthy tissue and in the subcutaneous layer Percentage of wound debrided: 100 Instrument Used: 3mm curette Tissue Removed: Fibrous, devitalized subcutaneous, biofilm, slough Severity: Fat Layer Exposed Amount of bleeding with debridement: Mild Bleeding Controlled with: Compression and gauze Patient tolerated procedure: Patient tolerated procedure well Additional Wound Wound debrided: Left heel decubitus ulceration Laterality: Left Wound Grade/Stage: Taylor stage II Type of Debridement: Excisional debridement Anesthesia Used: 5% Lidocaine Gel Depth: Down to and including healthy tissue and in the subcutaneous layer Percentage of wound debrided: 100 Instrument Used: 3mm curette Tissue Removed: Fibrous, devitalized subcutaneous, biofilm, slough Severity: Fat Layer Exposed Amount of bleeding with debridement: Mild Bleeding Controlled with: Compression and gauze Patient tolerated procedure: Patient tolerated procedure well Assessment/Plan Assessment/Plan (1) Pressure ulcer of unspecified heel, stage 2: CODE(S): L89.602 - Pressure ulcer of unspecified heel, stage 2 QUALIFIERS: Laterality: left Qualified Code(s): L89.622 - Pressure ulcer of left heel, stage 2 (2) Delayed wound healing: CODE(S): T14.8XXD - Other injury of unspecified body region, subsequent encounter (3) Calcaneal gait: CODE(S): R26.89 - Other abnormalities of gait and mobility (4) Ulcer of left foot with fat layer exposed: CODE(S): L97.522 - Non-pressure chronic ulcer of other part of left foot with fat layer exposed (5) Ulcer of right foot with fat layer exposed: CODE(S): L97.512 - Non-pressure chronic ulcer of other part of right foot with fat layer exposed PLAN: Plan Patient seen and evaluated I?reviewed and discussed her case.? Subcutaneous excisional debridement was performed as noted in the clinical panel to bilateral ulceration sites. Diagnostic data was also reviewed. Right subfirst metatarsal head ulceration measures 1.4 cm x 1.1 cm x 0.1 cm.? No signs of infection Left plantar heel ulceration measures 0.6 cm x 1.6 cm x 0.1 cm.? No signs of infection The following recommendations were made. Change dressing daily with Neida and dry sterile dressing to the right heel daily.? Neida applied with dry sterile dressing to the left heel and sub first metatarsal. offloading: To maintain strict nonweightbearing status with the knee roller, left with total contact cast and heel weightbearing to right in surgical shoe. Additional offloading padding was placed to the surgical shoe of the right foot. Total contact cast was applied today according to standard protocol (left) in a well-padded in neutral position after verbal consent was obtained. She tolerated this well and will keep this clean, dry, and intact.? Verbal consent was obtained prior to application and she will keep this clean and dry and intact as well.? Her right foot surgical shoe was evaluated, her offloading dual density Plastizote liners to take pressure off of her subfirst and sub fifth metatarsal head sites were updated last week.? She was still encouraged not to do routine walking with this device to optimize healing. nutrition: She was advised to maintain a balanced whole food diet with adequate protein and nutrients to optimize healing.? To resume Yosvany supplementation use. ? Host factors. Neuropathy complicates her case. To monitor close due to inability to sensate as normal.? She was also advised to avoid prednisone use and will also hold the Plaquenil at this time unless she has an intense flareup.? Dr. Gutierrez previously reviewed verbally with Dr. Pratt.? ?She also has a calcaneus gait with prior surgical intervention including a tendon transfer which is compromised with a fall in the early postoperative setting.? We previously discussed options to surgically alleviate her calcaneus gait including retightening the Achilles tendon or other posterior leg muscles.? She has had updated vascular (arterial) and doppler with reflux (venous) to assess for any abnormalities.? The arterial studies were reviewed and no arterial disease or occlusions were identified. ?Venous insufficiency work-up is still pending. Diagnostic data: Her bilateral foot xrays (three views) were reviewed from 04-06-2022 without soft tissue emphysema, osseous destruction or foreign body.? Chip fracture to medial proximal phalanx base unchanged noted to the right foot without additional osseous destruction.? Labs reviewed from 02/15/22 with wbc 9.4, no renal dysfunction or other gross abnormalities. I have discussed progressing signs of infection with her again today.? She was instructed if she notices any increasing redness that moves up the leg, any malodor, any purulent drainage emerging from the wound, or if she experiences any nausea, vomiting, fever greater than 101 degrees, or chills that she is to report straight to the emergency department as these are progressing signs of an infection.? She voices verbal understanding of this today. She will return to the wound care center in 1 week for continued wound care of bilateral feet. Note: [employer] speech recognition souvenir assembler software was used to create portions of this document. Sound-alike and misspelled words, as well as other souvenir assembler errors may be contained in the documentation.
[2022-07-21 08:42] VITALS: BP 149/79; PULSE 101; TEMP 36.1; BMI 37.2
--- NOTE | 2022-07-21 08:50 | PCM.WC.PN ---
History of Present Illness Date of Service: 07/21/22 Chief Complaint: Left heel ulcer right foot ulcers History of Wound: This pleasant 56-year-old female with significant past medical history of lupus, history of panic attack, depression, history of delayed healing, hyperlipidemia, irritable bowel syndrome, memory loss, restless leg syndrome, and obstructive sleep apnea is here for follow-up of left heel and right foot ulcers. She is ready for total contact cast application again today. She wears an offloading shoe to the right foot also for two ulcer sites. She denies fever, chill, nausea, vomiting, or other illness. Subjective Subjective This is a 59-year-old female who presents today to the wound care center for follow-up of a left plantar heel ulceration and right foot subfirst metatarsal head ulceration.?She had a total contact cast application last week and states this continues to go well.?She feels her wounds are reducing in size. She states that she has worn down some of the offloading padding on the right foot.?She denies any constitutional symptoms today.? She has no further complaints today Objective Data Objective Data Vital Signs: Vital Signs Temp Pulse Resp BP 97.0 F L 101 H 18 149/79 H 07/21/22 08:42 07/21/22 08:42 07/09/22 01:23 07/21/22 08:42 Weight: 111.13 kg Body Mass Index (BMI) 37.2 Physical Exam Const alert, oriented x3 and no apparent distress General Appearance: cooperative Lymph Lymphatic: no lymphadenopathy noted and no lymphedema noted Resp normal respiratory effort Cardio regular rate and regular rhythm Extremity no calf tenderness Extremity Narrative: Bilateral pedal pulses palpable but diminished.? +1 edema bilateral lower extremities.? Skin color pink, with no pain or tenderness with palpation.? Skin skin turgor normal and no jaundice Wound Narrative: Left heel ulcer is beefy pink granulation tissue.? No purulent drainage, no odor, no signs of infection. Right plantar ulcer, medial to 1st metatarsal head with base of ulcer beefy pink granulation tissue. Left heel reduced size with 100% healthy granular base also. no maceration bilateral Neuro oriented x3 and moves all extremities Debridement Note Debridement Note Wound debrided: Sub first metatarsal head Laterality: Right Wound Grade/Stage: Taylor stage I Type of Debridement: Excisional debridement Anesthesia Used: 5% Lidocaine Gel Depth: Down to and including healthy tissue and in the subcutaneous layer Percentage of wound debrided: 100 Instrument Used: 3mm curette Tissue Removed: Fibrous, devitalized subcutaneous, biofilm, slough Severity: Fat Layer Exposed Amount of bleeding with debridement: Mild Bleeding Controlled with: Compression and gauze Patient tolerated procedure: Patient tolerated procedure well Post-Debridement Measurements and Additional Note: Post-Debridement Measurements/Treatment - Nurse 1 - General Ulcer Assessment Start: 07/14/22 08:48 Freq: Status: Active Protocol: OLGA Activity Type Activity Date Activity User E-sign Co-sign Detail Recorded Client Recorded Date Recorded By Document 07/14/22 08:49 MT [id number] 07/14/22 09:01 MT Document 07/21/22 08:42 KR [id number] 07/21/22 08:48 KR 07/14/22 07/21/22 08:49 08:42 - Today's Visit Information Type of service Follow-up Visit Follow-up Visit (Physician/OPTOMECHANICAL TECHNICIAN (Physician/OPTOMECHANICAL TECHNICIAN ) ) Arrival Mode Ambulatory Ambulatory Patient Identification Verified (Name & Yes Yes ) Patient Requires Transmission-Based No Precautions Safety Precautions NA Height and Weight Body Mass Index (BMI) 37.2 37.2 BMI Classification Obese Obese Vital Signs Temperature (97.8 F-99.1 F) 96.3 F L 97.0 F L Temperature Source Temporal Temporal Pulse Rate (60-100) 101 H 101 H Pulse Location Monitor Monitor Blood Pressure (90/60-120/80) 134/74 H 149/79 H Blood Pressure Mean (mm Hg) 94 102 Source Monitor Monitor Position Semi-Fowlers Blood Pressure Location Right Arm History Since Last Visit- (Skip if this is Patient's initial visit) Have you changed medications since your No No last visit? Any new allergies or adverse reactions No No Had a fall/change in ADL's that may No No increase risk of falls Signs or symptoms of abuse and/or No No neglect since last visit Have you been in the hospital since your No No last visit? Has dressing in place as prescribed Yes Yes Has compression in place as prescribed Yes N/A Has offloadiing in place as prescribed Yes Yes Experienced any changes in pain level or No No management Left Footwear Surgical Shoe Regular Shoe with pressure relief insole Right Footwear Removable Cast Regular Shoe Walker/Walking Boot Pain Scale: 0-10 Numeric Is Patient Pain Free? Yes Yes WC - Nurse 1 - General Ulcer Measurement Start: 07/14/22 08:48 Freq: Status: Active Protocol: Activity Type Activity Date Activity User E-sign Co-sign Detail Recorded Client Recorded Date Recorded By Document 07/14/22 08:49 MT [id number] 07/14/22 09:01 MT Document 07/21/22 08:42 KR [id number] 07/21/22 08:48 KR 07/14/22 07/21/22 08:49 08:42 Wound Center Nurse 1 9. R plantar -Combined with other wound No -Current Size (cm) - Length 1.5 1.5 -Current Size (cm) - Width 1 1.2 -Current Size (cm) - Depth 0.5 0.3 -Total Square Cm 1.5 1.80 -Photo Taken Yes -Tunneling No -Undermining/Tunneling No -Circular Undermining No -Exudate Amt Medium Medium -Exudate Type Serosanguineous Serosanguineous -Wound Margin Distinct, Distinct, Outline Outline Attached Attached -Granulation Amt Medium (34-66%) Large (67-100%) -Granulation Quality [place] -Slough/Fibrin Yes -Necrosis Amt Small (1-33%) None Present (0 %) -Necrotic Tissue Type Adherent Slough -Structure Exposed N/A -Texture (Cecelia-wound Skin Appearance) Assessed,Callus Assessed, Scarring -Moisture (Cecelia-wound Skin Appearance) No Abnormality, No Abnormality, Assessed Assessed -Color (Cecelia-wound Skin Appearance) No Abnormality, No Abnormality, Assessed Assessed -Temperature (Cecelia-wound Skin No Abnormality No Abnormality Appearance) (Pt Warm) (Pt Warm) -Tenderness on Palpation (Cecelia-wound No No Skin Appearance) -Ulcer Cleansing Soap and Water -Foul Odor after Cleansing No No -Anesthetic Used 5% Lidocaine 5% Lidocaine Gel Gel 8. L heel -Current Size (cm) - Length 0.6 0.4 -Current Size (cm) - Width 1.8 1.2 -Current Size (cm) - Depth 0.3 0.1 -Total Square Cm 1.08 0.48 -Photo Taken No -Tunneling No -Undermining/Tunneling Yes -Undermining/Tunneling Starts (O'clock 10 10 ) -Undermining/Tunneling Ends (O'clock) 2 2 -Maximum Distance (cm) 0.5 -Circular Undermining Yes -Change in Wound Grade/Stage No -Exudate Amt Medium Medium -Exudate Type Serosanguineous Serosanguineous -Wound Margin Distinct, Distinct, Outline Outline Attached Attached -Granulation Amt Medium (34-66%) Medium (34-66%) -Granulation Quality [place] -Slough/Fibrin Yes -Necrosis Amt Small (1-33%) Small (1-33%) -Necrotic Tissue Type Adherent Slough Adherent Slough -Structure Exposed N/A -Texture (Cecelia-wound Skin Appearance) No Abnormality, Assessed,Callus Assessed ,Scarring -Moisture (Cecelia-wound Skin Appearance) No Abnormality, No Abnormality, Assessed Assessed -Color (Cecelia-wound Skin Appearance) No Abnormality, No Abnormality, Assessed Assessed -Temperature (Cecelia-wound Skin No Abnormality No Abnormality Appearance) (Pt Warm) (Pt Warm) -Tenderness on Palpation (Cecelia-wound No No Skin Appearance) -Ulcer Cleansing Soap and Water Soap and Water -Foul Odor after Cleansing No No -Anesthetic Used 5% Lidocaine 5% Lidocaine Gel Gel WC - Nurse 2 - General Ulcer CM Notes Start: 07/14/22 08:48 Freq: Status: Active Protocol: Activity Type Activity Date Activity User E-sign Co-sign Detail Recorded Client Recorded Date Recorded By Document 07/14/22 12:32 PL [id number] 07/14/22 12:34 PL Edit Result 07/14/22 12:32 PL (1) [id number] 07/14/22 12:39 PL (1) 9. R plantar - Type of Offloading => Total Contact Cast => (TCC) - Left ($) 07/14/22 12:32 Wound Center Nurse 2 9. R plantar -Time 09:11 -Correct Patient Yes -Correct Side, Site, Position Yes -Correct Procedure Yes -Procedure Performed Yes -Type of Procedure Debridement -Clinical Debridement Subcutaneous -Tissue Removed Subcutaneous -Post Debridement (cm) - Length 1.4 -Post Debridement (cm) - Width 1.1 -Post Debridement (cm) - Depth 0.1 -Total Square (Post) (cm) 1.54 -Area of Debridement (cm) - Length 1.4 -Area of Debridement (cm) - Width 1.1 -Total Square (Area) (cm) 1.54 -Tunneling No -Undermining/Tunneling No -Circular Undermining No -Wound/Ulcer Outcome Not Healed -Ulcer Cleansing Rinsed/ Irrigated with Saline -Foul Odor after Cleansing No -Bioengineered Tissue No -Bleeding Controlled with Pressure -Treatment Response Procedure Tolerated Well -Type of Offloading Total Contact Cast (TCC) - Left ($) -Debridement - Subq, 1st 20sq cm Yes 8. L heel -Time 09:11 -Correct Patient Yes -Correct Side, Site, Position Yes -Correct Procedure Yes -Procedure Performed Yes -Type of Procedure Debridement -Clinical Debridement Subcutaneous -Tissue Removed Subcutaneous -Post Debridement (cm) - Length 1.4 -Post Debridement (cm) - Width 1.1 -Post Debridement (cm) - Depth 0.1 -Total Square (Post) (cm) 1.54 -Area of Debridement (cm) - Length 1.4 -Area of Debridement (cm) - Width 1.1 -Total Square (Area) (cm) 1.54 -Tunneling No -Undermining/Tunneling No -Circular Undermining No -Wound/Ulcer Outcome Not Healed -Ulcer Cleansing Rinsed/ Irrigated with Saline -Foul Odor after Cleansing No -Bioengineered Tissue No -Bleeding Controlled with Pressure -Treatment Response Procedure Tolerated Well -Debridement - Subq, 1st 20sq cm No Pain Scale: 0-10 Numeric Is Patient Pain Free? Yes WC - Nurse 3 - General Ulcer D/C NN Start: 07/14/22 08:48 Freq: Status: Active Protocol: Activity Type Activity Date Activity User E-sign Co-sign Detail Recorded Client Recorded Date Recorded By Document 07/14/22 11:05 RD [id number] 07/14/22 11:06 RD 07/14/22 11:05 Wound Care Nurse 3 9. R plantar -Ulcer Cleansing Rinsed/ Irrigated with Saline -Primary Dressing Applied Promogran Neida Matter -Primary Dressing Covered/Secured with Dry Gauze & Roll Gauze, Secured with Tape -Promogran Neida Matter 1 8. L heel -Ulcer Cleansing Rinsed/ Irrigated with Saline -Foul Odor after Cleansing No -Negative Pressure Wound Therapy N/A -Primary Dressing Applied Promogran Neida Matter -Primary Dressing Covered/Secured with Dry Gauze & Roll Gauze, Secured with Tape -Other Covering size 3 TCC -Promogran Neida Matter 0 Pain Scale: 0-10 Numeric Is Patient Pain Free? Yes WC - Visit Discharge Discharge Condition Stable Ambulatory Status Ambulatory Transportation Private Auto Medication Reconcilliation completed & Yes provided to patient/care provider Clinical Summary of Care Provided Yes Additional Wound Wound debrided: Plantar heel Laterality: Left Wound Grade/Stage: Taylor stage II Type of Debridement: Excisional debridement Anesthesia Used: 5% Lidocaine Gel Depth: Down to and including healthy tissue and in the subcutaneous layer Percentage of wound debrided: 100 Instrument Used: 3mm curette Tissue Removed: Fibrous, devitalized subcutaneous, biofilm, slough Severity: Fat Layer Exposed Amount of bleeding with debridement: Mild Bleeding Controlled with: Compression and gauze Patient tolerated procedure: Patient tolerated procedure well Assessment/Plan Assessment/Plan (1) Pressure ulcer of unspecified heel, stage 2: CODE(S): L89.602 - Pressure ulcer of unspecified heel, stage 2 QUALIFIERS: Laterality: left Qualified Code(s): L89.622 - Pressure ulcer of left heel, stage 2 (2) Delayed wound healing: CODE(S): T14.8XXD - Other injury of unspecified body region, subsequent encounter (3) Calcaneal gait: CODE(S): R26.89 - Other abnormalities of gait and mobility (4) Ulcer of left foot with fat layer exposed: CODE(S): L97.522 - Non-pressure chronic ulcer of other part of left foot with fat layer exposed (5) Ulcer of right foot with fat layer exposed: CODE(S): L97.512 - Non-pressure chronic ulcer of other part of right foot with fat layer exposed PLAN: Plan Patient seen and evaluated I?reviewed and discussed her case.? Subcutaneous excisional debridement was performed as noted in the clinical panel to bilateral ulceration sites. Diagnostic data was also reviewed. Right subfirst metatarsal head ulceration measures 1.4 cm x 1.3 cm x 0.1 cm.? No signs of infection Left plantar heel ulceration measures 0.5 cm x 1.4 cm x 0.1 cm.? No signs of infection The following recommendations were made. Change dressing daily with Neida and dry sterile dressing to the right heel daily.? Neida applied with dry sterile dressing to the left heel and sub first metatarsal. offloading: To maintain strict nonweightbearing status with the knee roller, left with total contact cast and heel weightbearing to right in surgical shoe. Additional offloading padding was placed to the surgical shoe of the right foot. Total contact cast was applied today according to standard protocol (left) in a well-padded in neutral position after verbal consent was obtained. She tolerated this well and will keep this clean, dry, and intact.? Verbal consent was obtained prior to application and she will keep this clean and dry and intact as well.?She was still encouraged not to do routine walking with this device to optimize healing. nutrition: She was advised to maintain a balanced whole food diet with adequate protein and nutrients to optimize healing.? To continue Yosvany supplementation use. ? Host factors: Neuropathy complicates her case. To monitor close due to inability to sensate as normal.? She was also advised to avoid prednisone use and will also hold the Plaquenil at this time unless she has an intense flareup.? Dr. Gutierrez previously reviewed verbally with Dr. Pratt.? ?She also has a calcaneus gait with prior surgical intervention including a tendon transfer which is compromised with a fall in the early postoperative setting.? We previously discussed options to surgically alleviate her calcaneus gait including retightening the Achilles tendon or other posterior leg muscles.? She has had updated vascular (arterial) and doppler with reflux (venous) to assess for any abnormalities.? The arterial studies were reviewed and no arterial disease or occlusions were identified. ?Venous insufficiency work-up is still pending. Diagnostic data: Her bilateral foot xrays (three views) were reviewed from 04-06-2022 without soft tissue emphysema, osseous destruction or foreign body.? Chip fracture to medial proximal phalanx base unchanged noted to the right foot without additional osseous destruction.? Labs reviewed from 02/15/22 with wbc 9.4, no renal dysfunction or other gross abnormalities. I have discussed progressing signs of infection with her again today.? She was instructed if she notices any increasing redness that moves up the leg, any malodor, any purulent drainage emerging from the wound, or if she experiences any nausea, vomiting, fever greater than 101 degrees, or chills that she is to report straight to the emergency department as these are progressing signs of an infection.? She voices verbal understanding of this today. She will return to the wound care center in 1 week for continued wound care of bilateral feet. Note: [employer] speech recognition car rental clerk software was used to create portions of this document. Sound-alike and misspelled words, as well as other car rental clerk errors may be contained in the documentation.
[2022-07-28 08:51] VITALS: BP 130/86; PULSE 100; TEMP 35.7; BMI 37.2
--- NOTE | 2022-07-28 09:12 | PN.PCM_ITS ---
History of Present Illness Date of Service: 07/28/22 Chief Complaint: Left heel ulcer right foot ulcers History of Wound: This pleasant 56-year-old female with significant past medical history of lupus, history of panic attack, depression, history of delayed healing, hyperlipidemia, irritable bowel syndrome, memory loss, restless leg syndrome, and obstructive sleep apnea is here for follow-up of left heel and right foot ulcers. She is ready for total contact cast application again today. She wears an offloading shoe to the right foot also for two ulcer sites. She denies fever, chill, nausea, vomiting, or other illness. Subjective Subjective This is a 59-year-old female who presents today to the wound care center for follow-up of a left plantar heel ulceration and right foot subfirst metatarsal head ulceration.?She had a total contact cast application last week and states this continues to go well.?She denies any constitutional symptoms today.? She has no further complaints today. Objective Data Objective Data Vital Signs: Vital Signs Temp Pulse Resp BP 96.2 F L 100 18 130/86 H 07/28/22 08:51 07/28/22 08:51 07/09/22 01:23 07/28/22 08:51 Weight: 111.13 kg Body Mass Index (BMI) 37.2 Physical Exam Const alert, oriented x3 and no apparent distress General Appearance: cooperative Lymph Lymphatic: no lymphadenopathy noted and no lymphedema noted Resp normal respiratory effort Cardio regular rate and regular rhythm Extremity no calf tenderness Extremity Narrative: Bilateral pedal pulses palpable but diminished.? +1 edema bilateral lower extremities.? Skin color pink, with no pain or tenderness with palpation.? Skin skin turgor normal and no jaundice Wound Narrative: Left heel ulcer is beefy pink granulation tissue.? No purulent drainage, no odor, no signs of infection. Right plantar ulcer, medial to 1st metatarsal head with base of ulcer beefy pink granulation tissue. Left heel reduced size with 100% healthy granular base also. no maceration bilateral Neuro oriented x3 and moves all extremities Debridement Note Debridement Note Wound debrided: Plantar heel Laterality: Left Wound Grade/Stage: Taylor stage II Type of Debridement: Excisional debridement Anesthesia Used: 5% Lidocaine Gel Depth: Down to and including healthy tissue and in the subcutaneous layer Percentage of wound debrided: 100 Instrument Used: 3mm curette Tissue Removed: Fibrous, devitalized subcutaneous, biofilm, slough Severity: Fat Layer Exposed Amount of bleeding with debridement: Mild Bleeding Controlled with: Compression and gauze Patient tolerated procedure: Patient tolerated procedure well Post-Debridement Measurements and Additional Note: Post-Debridement Measurements/Treatment WC - Nurse 1 - General Ulcer Assessment Start: 07/14/22 08:48 Freq: Status: Active Protocol: OLGA Activity Type Activity Date Activity User E-sign Co-sign Detail Recorded Client Recorded Date Recorded By Document 07/14/22 08:49 MT [id number] 07/14/22 09:01 MT Document 07/21/22 08:42 KR [id number] 07/21/22 08:48 KR Document 07/28/22 08:51 KR [id number] 07/28/22 08:54 KR 07/14/22 07/21/22 07/28/22 08:49 08:42 08:51 - Today's Visit Information Type of service Follow-up Visit Follow-up Visit Follow-up Visit (Physician/STATE ATTORNEY (Physician/STATE ATTORNEY (Physician/STATE ATTORNEY ) ) ) Arrival Mode Ambulatory Ambulatory Ambulatory Patient Identification Verified (Name & Yes Yes Yes ) Patient Requires Transmission-Based No No Precautions Safety Precautions NA NA Height and Weight Body Mass Index (BMI) 37.2 37.2 37.2 BMI Classification Obese Obese Obese Vital Signs Temperature (97.8 F-99.1 F) 96.3 F L 97.0 F L 96.2 F L Temperature Source Temporal Temporal Temporal Pulse Rate (60-100) 101 H 101 H 100 Pulse Location Monitor Monitor Monitor Blood Pressure (90/60-120/80) 134/74 H 149/79 H 130/86 H Blood Pressure Mean (mm Hg) 94 102 100 Source Monitor Monitor Monitor Position Semi-Fowlers Blood Pressure Location Right Arm History Since Last Visit- (Skip if this is Patient's initial visit) Have you changed medications since your No No No last visit? Any new allergies or adverse reactions No No No Had a fall/change in ADL's that may No No No increase risk of falls Signs or symptoms of abuse and/or No No No neglect since last visit Have you been in the hospital since your No No No last visit? Has dressing in place as prescribed Yes Yes Yes Has compression in place as prescribed Yes N/A Yes Has offloadiing in place as prescribed Yes Yes N/A Experienced any changes in pain level or No No No management Left Footwear Surgical Shoe Regular Shoe Surgical Shoe with pressure with pressure relief insole relief insole Right Footwear Removable Cast Regular Shoe Removable Cast Walker/Walking Walker/Walking Boot Boot Pain Scale: 0-10 Numeric Is Patient Pain Free? Yes Yes Yes WC - Nurse 1 - General Ulcer Measurement Start: 07/14/22 08:48 Freq: Status: Active Protocol: Activity Type Activity Date Activity User E-sign Co-sign Detail Recorded Client Recorded Date Recorded By Document 07/14/22 08:49 MT [id number] 07/14/22 09:01 MT Document 07/21/22 08:42 KR [id number] 07/21/22 08:48 KR Document 07/28/22 08:51 KR [id number] 07/28/22 08:54 KR 07/14/22 07/21/22 07/28/22 08:49 08:42 08:51 Wound Center Nurse 1 9. R plantar -Combined with other wound No No -Current Size (cm) - Length 1.5 1.5 1.8 -Current Size (cm) - Width 1 1.2 1 -Current Size (cm) - Depth 0.5 0.3 0.3 -Total Square Cm 1.5 1.80 1.8 -Photo Taken Yes Yes -Tunneling No No -Undermining/Tunneling No No -Circular Undermining No No -Change in Wound Grade/Stage No -Exudate Amt Medium Medium Large -Exudate Type Serosanguineous Serosanguineous Serosanguineous -Wound Margin Distinct, Distinct, Distinct, Outline Outline Outline Attached Attached Attached -Granulation Amt Medium (34-66%) Large (67-100%) Small (1-33%) -Granulation [place] -Slough/Fibrin Yes No -Necrosis Amt Small (1-33%) None Present (0 None Present (0 %) %) -Necrotic Tissue Type Adherent Slough -Structure Exposed N/A N/A -Texture (Cecelia-wound Skin Appearance) Assessed,Callus Assessed, Assessed,Callus Scarring -Moisture (Cecelia-wound Skin Appearance) No Abnormality, No Abnormality, No Abnormality, Assessed Assessed Assessed -Color (Cecelia-wound Skin Appearance) No Abnormality, No Abnormality, No Abnormality, Assessed Assessed Assessed -Temperature (Cecelia-wound Skin No Abnormality No Abnormality No Abnormality Appearance) (Pt Warm) (Pt Warm) (Pt Warm) -Tenderness on Palpation (Cecelia-wound No No No Skin Appearance) -Ulcer Cleansing Soap and Water Soap and Water -Foul Odor after Cleansing No No No -Anesthetic Used 5% Lidocaine 5% Lidocaine 5% Lidocaine Gel Gel Gel 8. L heel -Combined with other wound No -Current Size (cm) - Length 0.6 0.4 0.4 -Current Size (cm) - Width 1.8 1.2 1.5 -Current Size (cm) - Depth 0.3 0.1 0.3 -Total Square Cm 1.08 0.48 0.60 -Photo Taken No Yes -Tunneling No No -Undermining/Tunneling Yes No -Undermining/Tunneling Starts (O'clock 10 10 ) -Undermining/Tunneling Ends (O'clock) 2 2 -Maximum Distance (cm) 0.5 -Circular Undermining Yes No -Change in Wound Grade/Stage No No -Exudate Amt Medium Medium Medium -Exudate Type Serosanguineous Serosanguineous Serosanguineous -Wound Margin Distinct, Distinct, Distinct, Outline Outline Outline Attached Attached Attached -Granulation Amt Medium (34-66%) Medium (34-66%) Medium (34-66%) -Granulation [place] -Slough/Fibrin Yes No -Necrosis Amt Small (1-33%) Small (1-33%) None Present (0 %) -Necrotic Tissue Type Adherent Slough Adherent Slough -Structure Exposed N/A N/A -Texture (Cecelia-wound Skin Appearance) No Abnormality, Assessed,Callus Assessed,Callus Assessed ,Scarring -Moisture (Cecelia-wound Skin Appearance) No Abnormality, No Abnormality, Assessed,Dry/ Assessed Assessed Scaly -Color (Cecelia-wound Skin Appearance) No Abnormality, No Abnormality, No Abnormality, Assessed Assessed Assessed -Temperature (Cecelia-wound Skin No Abnormality No Abnormality No Abnormality Appearance) (Pt Warm) (Pt Warm) (Pt Warm) -Tenderness on Palpation (Cecelia-wound No No No Skin Appearance) -Ulcer Cleansing Soap and Water Soap and Water Soap and Water -Foul Odor after Cleansing No No No -Anesthetic Used 5% Lidocaine 5% Lidocaine 5% Lidocaine Gel Gel Gel WC - Nurse 2 - General Ulcer CM Notes Start: 07/14/22 08:48 Freq: Status: Active Protocol: Activity Type Activity Date Activity User E-sign Co-sign Detail Recorded Client Recorded Date Recorded By Document 07/14/22 12:32 PL [id number] 07/14/22 12:34 PL Edit Result 07/14/22 12:32 PL (1) [id number] 07/14/22 12:39 PL Document 07/21/22 12:30 PL [id number] 07/21/22 12:32 PL Edit Result 07/21/22 12:30 PL (2) [id number] 07/22/22 08:21 PL (1) 9. R plantar - Type of Offloading => Total Contact Cast => (TCC) - Left ($) (2) 9. R plantar - Type of Offloading => Total Contact Cast => (TCC) - Left ($) 07/14/22 07/21/22 12:32 12:30 Wound Center Nurse 2 9. R plantar -Time 09:11 09:10 -Correct Patient Yes Yes -Correct Side, Site, Position Yes Yes -Correct Procedure Yes Yes -Procedure Performed Yes Yes -Type of Procedure Debridement Debridement -Clinical Debridement Subcutaneous Subcutaneous -Tissue Removed Subcutaneous Subcutaneous -Post Debridement (cm) - Length 1.4 1.4 -Post Debridement (cm) - Width 1.1 1.3 -Post Debridement (cm) - Depth 0.1 0.1 -Total Square (Post) (cm) 1.54 1.82 -Area of Debridement (cm) - Length 1.4 1.4 -Area of Debridement (cm) - Width 1.1 1.3 -Total Square (Area) (cm) 1.54 1.82 -Tunneling No No -Undermining/Tunneling No No -Circular Undermining No No -Wound/Ulcer Outcome Not Healed Not Healed -Ulcer Cleansing Rinsed/ Rinsed/ Irrigated with Irrigated with Saline Saline -Foul Odor after Cleansing No No -Bioengineered Tissue No No -Bleeding Controlled with Pressure Pressure -Treatment Response Procedure Procedure Tolerated Well Tolerated Well -Type of Offloading Total Contact Total Contact Cast (TCC) - Cast (TCC) - Left ($) Left ($) -Debridement - Subq, 1st 20sq cm Yes No 8. L heel -Time 09:11 09:10 -Correct Patient Yes Yes -Correct Side, Site, Position Yes Yes -Correct Procedure Yes Yes -Procedure Performed Yes Yes -Type of Procedure Debridement Debridement -Clinical Debridement Subcutaneous Subcutaneous -Tissue Removed Subcutaneous Subcutaneous -Post Debridement (cm) - Length 1.4 0.5 -Post Debridement (cm) - Width 1.1 1.4 -Post Debridement (cm) - Depth 0.1 0.1 -Total Square (Post) (cm) 1.54 0.70 -Area of Debridement (cm) - Length 1.4 0.5 -Area of Debridement (cm) - Width 1.1 1.4 -Total Square (Area) (cm) 1.54 0.70 -Tunneling No No -Undermining/Tunneling No No -Circular Undermining No No -Wound/Ulcer Outcome Not Healed Not Healed -Ulcer Cleansing Rinsed/ Rinsed/ Irrigated with Irrigated with Saline Saline -Foul Odor after Cleansing No No -Bioengineered Tissue No No -Bleeding Controlled with Pressure Pressure -Treatment Response Procedure Procedure Tolerated Well Tolerated Well -Debridement - Subq, 1st 20sq cm No Yes Pain Scale: 0-10 Numeric Is Patient Pain Free? Yes Yes - Nurse 3 - General Ulcer D/C NN Start: 07/14/22 08:48 Freq: Status: Active Protocol: Activity Type Activity Date Activity User E-sign Co-sign Detail Recorded Client Recorded Date Recorded By Document 07/14/22 11:05 KR [id number] 07/14/22 11:06 KR Document 07/21/22 12:17 KR [id number] 07/21/22 12:18 KR 07/14/22 07/21/22 11:05 12:17 Wound Care Nurse 3 9. R plantar -Ulcer Cleansing Rinsed/ Rinsed/ Irrigated with Irrigated with Saline Saline -Foul Odor after Cleansing No -Negative Pressure Wound Therapy N/A -Primary Dressing Applied Promogran Promogran Neida Matter Neida Matter -Primary Dressing Covered/Secured with Dry Gauze & Dry Gauze & Roll Gauze, Roll Gauze, Secured with Secured with Tape Tape -Promogran Neida Matter 1 1 8. L heel -Ulcer Cleansing Rinsed/ Rinsed/ Irrigated with Irrigated with Saline Saline -Foul Odor after Cleansing No No -Negative Pressure Wound Therapy N/A N/A -Primary Dressing Applied Promogran Promogran Neida Matter Neida Matter -Primary Dressing Covered/Secured with Dry Gauze & Dry Gauze & Roll Gauze, Roll Gauze, Secured with Secured with Tape Tape -Other Covering size 3 TCC TCC size 3 -Promogran Neida Matter 0 0 Pain Scale: 0-10 Numeric Is Patient Pain Free? Yes Yes WC - Visit Discharge Discharge Condition Stable Stable Ambulatory Status Ambulatory Ambulatory Transportation Private Auto Private Auto Medication Reconcilliation completed & Yes Yes provided to patient/care provider Clinical Summary of Care Provided Yes Yes Additional Wound Wound debrided: Sub first metatarsal head Laterality: Right Wound Grade/Stage: Taylor stage I Type of Debridement: Excisional debridement Anesthesia Used: 5% Lidocaine Gel Depth: Down to and including healthy tissue and in the subcutaneous layer Instrument Used: 3mm curette Tissue Removed: Fibrous, devitalized subcutaneous, biofilm, slough Severity: Fat Layer Exposed Amount of bleeding with debridement: Mild Bleeding Controlled with: Compression and gauze Patient tolerated procedure: Patient tolerated procedure well Assessment/Plan Assessment/Plan (1) Pressure ulcer of unspecified heel, stage 2: CODE(S): L89.602 - Pressure ulcer of unspecified heel, stage 2 QUALIFIERS: Laterality: left Qualified Code(s): L89.622 - Pressure ulcer of left heel, stage 2 (2) Delayed wound healing: CODE(S): T14.8XXD - Other injury of unspecified body region, subsequent encounter (3) Calcaneal gait: CODE(S): R26.89 - Other abnormalities of gait and mobility (4) Ulcer of left foot with fat layer exposed: CODE(S): L97.522 - Non-pressure chronic ulcer of other part of left foot with fat layer exposed (5) Ulcer of right foot with fat layer exposed: CODE(S): L97.512 - Non-pressure chronic ulcer of other part of right foot with fat layer exposed PLAN: Plan Patient seen and evaluated I?reviewed and discussed her case.? Subcutaneous excisional debridement was performed as noted in the clinical panel to bilateral ulceration sites. Diagnostic data was also reviewed. Right subfirst metatarsal head ulceration measures 1.6 cm x 1.5 cm x 0.1 cm.? No signs of infection Left plantar heel ulceration measures 0.5 cm x 1.3 cm x 0.1 cm.? No signs of infection The following recommendations were made. Change dressing daily with collagen powder and PHMB dressing to the right foot. Collagen powder and PHMB dressing applied with dry sterile dressing to the left heel and sub first metatarsal. offloading: To maintain strict nonweightbearing status with the knee roller, left with total contact cast and heel weightbearing to right in surgical shoe with offloading padding. Total contact cast was applied today according to standard protocol (left) in a well-padded in neutral position after verbal consent was obtained. She tolerated this well and will keep this clean, dry, and intact.? Verbal consent was obtained prior to application and she will keep this clean and dry and intact as well.?She was still encouraged not to do routine walking with this device to optimize healing. Considering TCC for Right foot with ambulation in walking boot and nonweightbearing status to the left lower extremity with surgical shoe with heel cut out at next visit if wounds fail to progress. nutrition: She was advised to maintain a balanced whole food diet with adequate protein and nutrients to optimize healing.? To continue Yosvany supplementation use. ? Host factors: Neuropathy complicates her case. To monitor close due to inability to sensate as normal.? She was also advised to avoid prednisone use and will also hold the Plaquenil at this time unless she has an intense flareup.? Dr. Gutierrez previously reviewed verbally with Dr. Pratt.? ?She also has a calcaneus gait to left foot with prior surgical intervention including a tendon transfer which is compromised with a fall in the early postoperative setting.? We previously discussed options to surgically alleviate her calcaneus gait including retightening the Achilles tendon or other posterior leg muscles.? She has had updated vascular (arterial) and doppler with reflux (venous) to assess for any abnormalities.? The arterial studies were reviewed and no arterial disease or occlusions were identified. ?Venous insufficiency work-up is still pending. Diagnostic data: Her bilateral foot xrays (three views) were reviewed from 04-06-2022 without soft tissue emphysema, osseous destruction or foreign body.? Chip fracture to medial proximal phalanx base unchanged noted to the right foot without additional osseous destruction.? Labs reviewed from 02/15/22 with wbc 9.4, no renal dysfunction or other gross abnormalities. I have discussed progressing signs of infection with her again today.? She was instructed if she notices any increasing redness that moves up the leg, any malodor, any purulent drainage emerging from the wound, or if she experiences any nausea, vomiting, fever greater than 101 degrees, or chills that she is to report straight to the emergency department as these are progressing signs of an infection.? She voices verbal understanding of this today. She will return to the wound care center in 1 week for continued wound care of bilateral feet. Note: [employer] speech recognition replenishment analyst software was used to create portions of this document. Sound-alike and misspelled words, as well as other replenishment analyst errors may be contained in the documentation.
[2022-08-02 09:10] VITALS: BP 146/78; PULSE 104; TEMP 35.7; BMI 37.2
--- NOTE | 2022-08-02 09:45 | PCM.WC.PN ---
History of Present Illness Date of Service: 08/02/22 Chief Complaint: Left heel ulcer right foot ulcers History of Wound: This pleasant 56-year-old female with significant past medical history of lupus, history of panic attack, depression, history of delayed healing, hyperlipidemia, irritable bowel syndrome, memory loss, restless leg syndrome, and obstructive sleep apnea is here for follow-up of left heel and right foot ulcers. She is ready for total contact cast application again today. Patient presents today with increased swelling redness to her right big toe. She offloads the right side with a surgical shoe felt an offloading pad. Patient has been treated with a total contact cast on the left lower extremity. She denies any constitutional symptoms at current and has no other complaints. Objective Data Objective Data Vital Signs: Vital Signs Temp Pulse Resp BP 96.2 F L 104 H 18 146/78 H 08/02/22 09:10 08/02/22 09:10 07/09/22 01:23 08/02/22 09:10 Weight: 111.13 kg Body Mass Index (BMI) 37.2 Physical Exam Const alert, oriented x3 and no apparent distress General Appearance: cooperative Lymph Lymphatic: no lymphadenopathy noted and no lymphedema noted Resp normal respiratory effort Cardio regular rate and regular rhythm Extremity no calf tenderness Extremity Narrative: Bilateral pedal pulses palpable but diminished.? +1 edema bilateral lower extremities.? Skin color pink, with no pain or tenderness with palpation.? Skin skin turgor normal and no jaundice Wound Narrative: Plantar right first metatarsal head ulceration noted with granular base periwound her hyperkeratosis. Increased periwound edema erythema and warmth today. No pain, purulent drainage, crepitus or fluctuance. No deep probing or undermining at this time. Stable left plantar heel ulceration with hyperkeratotic rim stable granular base no deep probing undermining or signs of infection. Neuro oriented x3 and moves all extremities Debridement Note Debridement Note Post-Debridement Measurements and Additional Note: Post-Debridement Measurements/Treatment WC - Nurse 1 - General Ulcer Assessment Start: 07/14/22 08:48 Freq: Status: Active Protocol: [email or web address] Activity Type Activity Date Activity User E-sign Co-sign Detail Recorded Client Recorded Date Recorded By Document 07/14/22 08:49 CA [id number] 07/14/22 09:01 MT Document 07/21/22 08:42 KR [id number] 07/21/22 08:48 KR Document 07/28/22 08:51 KR [id number] 07/28/22 08:54 KR Document 08/02/22 09:10 AK [id number] 08/02/22 09:25 AK 07/14/22 07/21/22 07/28/22 08:49 08:42 08:51 WC - Today's Visit Information Type of service Follow-up Visit Follow-up Visit Follow-up Visit (Physician/INSPECTOR DIALS (Physician/INSPECTOR DIALS (Physician/INSPECTOR DIALS ) ) ) Arrival Mode Ambulatory Ambulatory Ambulatory Patient Identification Verified (Name & Yes Yes Yes ) Patient Requires Transmission-Based No No Precautions Safety Precautions NA NA Height and Weight Body Mass Index (BMI) 37.2 37.2 37.2 BMI Classification Obese Obese Obese Vital Signs Temperature (97.8 F-99.1 F) 96.3 F L 97.0 F L 96.2 F L Temperature Source Temporal Temporal Temporal Pulse Rate (60-100) 101 H 101 H 100 Pulse Location Monitor Monitor Monitor Blood Pressure (90/60-120/80) 134/74 H 149/79 H 130/86 H Blood Pressure Mean (mm Hg) 94 102 100 Source Monitor Monitor Monitor Position Semi-Fowlers Blood Pressure Location Right Arm History Since Last Visit- (Skip if this is Patient's initial visit) Have you changed medications since your No No No last visit? Any new allergies or adverse reactions No No No Had a fall/change in ADL's that may No No No increase risk of falls Signs or symptoms of abuse and/or No No No neglect since last visit Have you been in the hospital since your No No No last visit? Has dressing in place as prescribed Yes Yes Yes Has compression in place as prescribed Yes N/A Yes Has offloadiing in place as prescribed Yes Yes N/A Experienced any changes in pain level or No No No management Left Footwear Surgical Shoe Regular Shoe Surgical Shoe with pressure with pressure relief insole relief insole Right Footwear Removable Cast Regular Shoe Removable Cast Walker/Walking Walker/Walking Boot Boot Pain Scale: 0-10 Numeric Is Patient Pain Free? Yes Yes Yes 08/02/22 09:10 WC - Today's Visit Information Type of service Follow-up Visit (Physician/INSPECTOR DIALS ) Arrival Mode Ambulatory Patient Identification Verified (Name & Yes ) Patient Requires Transmission-Based No Precautions Safety Precautions NA Height and Weight Body Mass Index (BMI) 37.2 BMI Classification Obese Vital Signs Temperature (97.8 F-99.1 F) 96.2 F L Temperature Source Temporal Pulse Rate (60-100) 104 H Pulse Location Monitor Blood Pressure (90/60-120/80) 146/78 H Blood Pressure Mean (mm Hg) 100 Source Monitor Position Blood Pressure Location History Since Last Visit- (Skip if this is Patient's initial visit) Have you changed medications since your No last visit? Any new allergies or adverse reactions No Had a fall/change in ADL's that may No increase risk of falls Signs or symptoms of abuse and/or No neglect since last visit Have you been in the hospital since your No last visit? Has dressing in place as prescribed Yes Has compression in place as prescribed Yes Has offloadiing in place as prescribed N/A Experienced any changes in pain level or No management Left Footwear Surgical Shoe with pressure relief insole Right Footwear Surgical Shoe with pressure relief insole Pain Scale: 0-10 Numeric Is Patient Pain Free? Yes WC - Nurse 1 - General Ulcer Measurement Start: 07/14/22 08:48 Freq: Status: Active Protocol: Activity Type Activity Date Activity User E-sign Co-sign Detail Recorded Client Recorded Date Recorded By Document 07/14/22 08:49 CA [id number] 07/14/22 09:01 MT Document 07/21/22 08:42 KR [id number] 07/21/22 08:48 KR Document 07/28/22 08:51 KR [id number] 07/28/22 08:54 KR Document 08/02/22 09:10 AK [id number] 08/02/22 09:25 AK 07/14/22 07/21/22 07/28/22 08:49 08:42 08:51 Wound Center Nurse 1 9. R plantar -Combined with other wound No No -Current Size (cm) - Length 1.5 1.5 1.8 -Current Size (cm) - Width 1 1.2 1 -Current Size (cm) - Depth 0.5 0.3 0.3 -Total Square Cm 1.5 1.80 1.8 -Photo Taken Yes Yes -Tunneling No No -Undermining/Tunneling No No -Circular Undermining No No -Change in Wound Grade/Stage No -Exudate Amt Medium Medium Large -Exudate Type Serosanguineous Serosanguineous Serosanguineous -Wound Margin Distinct, Distinct, Distinct, Outline Outline Outline Attached Attached Attached -Granulation Amt Medium (34-66%) Large (67-100%) Small (1-33%) -Granulation Quality [place]ge [place] Barge -Slough/Fibrin Yes No -Necrosis Amt Small (1-33%) None Present (0 None Present (0 %) %) -Necrotic Tissue Type Adherent Slough -Structure Exposed N/A N/A -Texture (Cecelia-wound Skin Appearance) Assessed,Callus Assessed, Assessed,Callus Scarring -Moisture (Cecelia-wound Skin Appearance) No Abnormality, No Abnormality, No Abnormality, Assessed Assessed Assessed -Color (Cecelia-wound Skin Appearance) No Abnormality, No Abnormality, No Abnormality, Assessed Assessed Assessed -Temperature (Cecelia-wound Skin No Abnormality No Abnormality No Abnormality Appearance) (Pt Warm) (Pt Warm) (Pt Warm) -Tenderness on Palpation (Cecelia-wound No No No Skin Appearance) -Ulcer Cleansing Soap and Water Soap and Water -Foul Odor after Cleansing No No No -Anesthetic Used 5% Lidocaine 5% Lidocaine 5% Lidocaine Gel Gel Gel 8. L heel -Combined with other wound No -Current Size (cm) - Length 0.6 0.4 0.4 -Current Size (cm) - Width 1.8 1.2 1.5 -Current Size (cm) - Depth 0.3 0.1 0.3 -Total Square Cm 1.08 0.48 0.60 -Photo Taken No Yes -Tunneling No No -Undermining/Tunneling Yes No -Undermining/Tunneling Starts (O'clock 10 10 ) -Undermining/Tunneling Ends (O'clock) 2 2 -Maximum Distance (cm) 0.5 -Circular Undermining Yes No -Change in Wound Grade/Stage No No -Exudate Amt Medium Medium Medium -Exudate Type Serosanguineous Serosanguineous Serosanguineous -Wound Margin Distinct, Distinct, Distinct, Outline Outline Outline Attached Attached Attached -Granulation Amt Medium (34-66%) Medium (34-66%) Medium (34-66%) -Granulation Quality La Barge La Barge La Barge -Slough/Fibrin Yes No -Necrosis Amt Small (1-33%) Small (1-33%) None Present (0 %) -Necrotic Tissue Type Adherent Slough Adherent Slough -Structure Exposed N/A N/A -Texture (Cecelia-wound Skin Appearance) No Abnormality, Assessed,Callus Assessed,Callus Assessed ,Scarring -Moisture (Cecelia-wound Skin Appearance) No Abnormality, No Abnormality, Assessed,Dry/ Assessed Assessed Scaly -Color (Cecelia-wound Skin Appearance) No Abnormality, No Abnormality, No Abnormality, Assessed Assessed Assessed -Temperature (Cecelia-wound Skin No Abnormality No Abnormality No Abnormality Appearance) (Pt Warm) (Pt Warm) (Pt Warm) -Tenderness on Palpation (Cecelia-wound No No No Skin Appearance) -Ulcer Cleansing Soap and Water Soap and Water Soap and Water -Foul Odor after Cleansing No No No -Anesthetic Used 5% Lidocaine 5% Lidocaine 5% Lidocaine Gel Gel Gel 08/02/22 09:10 Wound Center Nurse 1 9. R plantar -Combined with other wound No -Current Size (cm) - Length 2 -Current Size (cm) - Width 2 -Current Size (cm) - Depth 0.2 -Total Square Cm 4 -Photo Taken No -Tunneling No -Undermining/Tunneling No -Circular Undermining No -Change in Wound Grade/Stage No -Exudate Amt Small -Exudate Type Serosanguineous -Wound Margin Distinct, Outline Attached -Granulation Amt Small (1-33%) -Granulation Quality [place] -Slough/Fibrin No -Necrosis Amt None Present (0 %) -Necrotic Tissue Type -Structure Exposed N/A -Texture (Cecelia-wound Skin Appearance) Assessed,Callus -Moisture (Cecelia-wound Skin Appearance) No Abnormality, Assessed -Color (Cecelia-wound Skin Appearance) No Abnormality, Assessed -Temperature (Cecelia-wound Skin No Abnormality Appearance) (Pt Warm) -Tenderness on Palpation (Cecelia-wound No Skin Appearance) -Ulcer Cleansing Soap and Water -Foul Odor after Cleansing No -Anesthetic Used 5% Lidocaine Gel 8. L heel -Combined with other wound No -Current Size (cm) - Length 0.5 -Current Size (cm) - Width 1 -Current Size (cm) - Depth 0.3 -Total Square Cm 0.5 -Photo Taken No -Tunneling No -Undermining/Tunneling No -Undermining/Tunneling Starts (O'clock ) -Undermining/Tunneling Ends (O'clock) -Maximum Distance (cm) -Circular Undermining No -Change in Wound Grade/Stage No -Exudate Amt Small -Exudate Type Serosanguineous -Wound Margin Distinct, Outline Attached -Granulation Amt Small (1-33%) -Granulation Quality [place] -Slough/Fibrin No -Necrosis Amt None Present (0 %) -Necrotic Tissue Type -Structure Exposed N/A -Texture (Cecelia-wound Skin Appearance) No Abnormality, Assessed -Moisture (Cecelia-wound Skin Appearance) No Abnormality, Assessed -Color (Cecelia-wound Skin Appearance) No Abnormality, Assessed -Temperature (Cecelia-wound Skin No Abnormality Appearance) (Pt Warm) -Tenderness on Palpation (Cecelia-wound No Skin Appearance) -Ulcer Cleansing Rinsed/ Irrigated with Saline -Foul Odor after Cleansing No -Anesthetic Used 5% Lidocaine Gel WC - Nurse 2 - General Ulcer CM Notes Start: 07/14/22 08:48 Freq: Status: Active Protocol: Activity Type Activity Date Activity User E-sign Co-sign Detail Recorded Client Recorded Date Recorded By Document 07/14/22 12:32 PL [id number] 07/14/22 12:34 PL Edit Result 07/14/22 12:32 PL (1) [id number] 07/14/22 12:39 PL Document 07/21/22 12:30 PL [id number] 07/21/22 12:32 PL Edit Result 07/21/22 12:30 PL (2) [id number] 07/22/22 08:21 PL Document 07/28/22 12:49 PL [id number] 07/28/22 13:02 PL (1) 9. R plantar - Type of Offloading => Total Contact Cast => (TCC) - Left ($) (2) 9. R plantar - Type of Offloading => Total Contact Cast => (TCC) - Left ($) 07/14/22 07/21/22 07/28/22 12:32 12:30 12:49 Wound Center Nurse 2 9. R plantar -Time 09:11 09:10 09:24 -Correct Patient Yes Yes Yes -Correct Side, Site, Position Yes Yes Yes -Correct Procedure Yes Yes Yes -Procedure Performed Yes Yes Yes -Type of Procedure Debridement Debridement Debridement -Clinical Debridement Subcutaneous Subcutaneous Subcutaneous -Tissue Removed Subcutaneous Subcutaneous Subcutaneous -Post Debridement (cm) - Length 1.4 1.4 1.6 -Post Debridement (cm) - Width 1.1 1.3 1.5 -Post Debridement (cm) - Depth 0.1 0.1 0.1 -Total Square (Post) (cm) 1.54 1.82 2.40 -Area of Debridement (cm) - Length 1.4 1.4 1.6 -Area of Debridement (cm) - Width 1.1 1.3 1.5 -Total Square (Area) (cm) 1.54 1.82 2.40 -Tunneling No No No -Undermining/Tunneling No No No -Circular Undermining No No No -Wound/Ulcer Outcome Not Healed Not Healed Not Healed -Ulcer Cleansing Rinsed/ Rinsed/ Rinsed/ Irrigated with Irrigated with Irrigated with Saline Saline Saline -Foul Odor after Cleansing No No No -Bioengineered Tissue No No No -Bleeding Controlled with Pressure Pressure Pressure -Treatment Response Procedure Procedure Procedure Tolerated Well Tolerated Well Tolerated Well -Type of Offloading Total Contact Total Contact Cast (TCC) - Cast (TCC) - Left ($) Left ($) -Debridement - Subq, 1st 20sq cm Yes No No 8. L heel -Time 09:11 09:10 09:24 -Correct Patient Yes Yes Yes -Correct Side, Site, Position Yes Yes Yes -Correct Procedure Yes Yes Yes -Procedure Performed Yes Yes Yes -Type of Procedure Debridement Debridement Debridement -Clinical Debridement Subcutaneous Subcutaneous Subcutaneous -Tissue Removed Subcutaneous Subcutaneous Subcutaneous -Post Debridement (cm) - Length 1.4 0.5 0.5 -Post Debridement (cm) - Width 1.1 1.4 1.3 -Post Debridement (cm) - Depth 0.1 0.1 0.1 -Total Square (Post) (cm) 1.54 0.70 0.65 -Area of Debridement (cm) - Length 1.4 0.5 0.5 -Area of Debridement (cm) - Width 1.1 1.4 1.3 -Total Square (Area) (cm) 1.54 0.70 0.65 -Tunneling No No No -Undermining/Tunneling No No No -Circular Undermining No No No -Wound/Ulcer Outcome Not Healed Not Healed Not Healed -Ulcer Cleansing Rinsed/ Rinsed/ Rinsed/ Irrigated with Irrigated with Irrigated with Saline Saline Saline -Foul Odor after Cleansing No No No -Bioengineered Tissue No No No -Bleeding Controlled with Pressure Pressure Pressure -Treatment Response Procedure Procedure Procedure Tolerated Well Tolerated Well Tolerated Well -Type of Offloading Total Contact Cast (TCC) - Left ($) -Debridement - Subq, 1st 20sq cm No Yes Yes Pain Scale: 0-10 Numeric Is Patient Pain Free? Yes Yes Yes WC - Nurse 3 - General Ulcer D/C NN Start: 07/14/22 08:48 Freq: Status: Active Protocol: Activity Type Activity Date Activity User E-sign Co-sign Detail Recorded Client Recorded Date Recorded By Document 07/14/22 11:05 KR [id number] 07/14/22 11:06 KR Document 07/21/22 12:17 KR [id number] 07/21/22 12:18 KR Document 07/28/22 09:53 KR [id number] 07/28/22 09:55 KR 07/14/22 07/21/22 07/28/22 11:05 12:17 09:53 Wound Care Nurse 3 9. R plantar -Ulcer Cleansing Rinsed/ Rinsed/ Rinsed/ Irrigated with Irrigated with Irrigated with Saline Saline Saline -Foul Odor after Cleansing No -Negative Pressure Wound Therapy N/A -Primary Dressing Applied Promogran Promogran Neida Matter Neida Matter -Other Dressing collagen powder ,pmd dressing -Primary Dressing Covered/Secured with Dry Gauze & Dry Gauze & Dry Gauze, Roll Gauze, Roll Gauze, Secured with Secured with Secured with Tape Tape Tape -Promogran Neida Matter 1 1 8. L heel -Ulcer Cleansing Rinsed/ Rinsed/ Irrigated with Irrigated with Saline Saline -Foul Odor after Cleansing No No -Negative Pressure Wound Therapy N/A N/A -Primary Dressing Applied Promogran Promogran Neida Matter Neida Matter -Other Dressing collagen powder , pmd dressing -Primary Dressing Covered/Secured with Dry Gauze & Dry Gauze & Roll Gauze, Roll Gauze, Secured with Secured with Tape Tape -Other Covering size 3 TCC TCC size 3 -Promogran Neida Matter 0 0 Left -Other tcc undercasting Pain Scale: 0-10 Numeric Is Patient Pain Free? Yes Yes Yes WC - Visit Discharge Discharge Condition Stable Stable Stable Ambulatory Status Ambulatory Ambulatory Ambulatory Transportation Private Auto Private Auto Private Auto Medication Reconcilliation completed & Yes Yes provided to patient/care provider Clinical Summary of Care Provided Yes Yes Assessment/Plan Assessment/Plan (1) Ulcer of left foot with fat layer exposed: CODE(S): L97.522 - Non-pressure chronic ulcer of other part of left foot with fat layer exposed PLAN: Patient examined evaluated, all fine discussed patient in detail. Left heel wound is improving at this time. Right plantar foot ulceration is noted to be worsening. Concern for cellulitis to the site. Bilateral foot wounds were debrided to the right plantar first metatarsal and plantar left heel excisionally down to including level subcutaneous tissue of all nonviable tissue using combination of 15 blade and tissue nippers. Patient tolerated procedure well. Hemostasis obtained with light compression. No anesthesia due to neuropathy. Pre and postdebridement measurements document nursing notes. Due to worsening right plantar foot ulceration I flushed the site with normal sterile saline took swab cultures and prescribed oral antibiotics including doxycycline and ciprofloxacin. We will await culture and sensitivity. Right foot radiographs as well as left foot radiographs ordered. Lab work taken as well including CBC BMP ESR CRP. Silver alginate with DSD applied to the wounds bilaterally. Total contact cast applied to left lower extremity Patient will continue offloading of right foot with surgical shoe and offloading pad Patient's arterial status from February 2022 demonstrate normal arterial flow. Patient's lupus appears to be controlled via medication. Discussed offloading in detail with patient stating that prolonged ambulation or weightbearing causes increased tissue damage which could lead to a severe life or limb threatening infection. Patient will follow up in [address] Jenkins. (2) Ulcer of right foot with fat layer exposed: CODE(S): L97.512 - Non-pressure chronic ulcer of other part of right foot with fat layer exposed
--- NOTE | 2022-08-02 10:40 | RAD_ITS ---
STUDY: X-RAY - LEFT FOOT CLINICAL: Female, 57 years old. ULCER TECHNIQUE: 3 view(s) of the foot. COMPARISON: 01/27/2021 FINDINGS: There is mild posterior and moderate plantar calcaneal spurring. There is mild osteoarthritis throughout the tarsal bones and the metatarsophalangeal and interphalangeal joints. Soft tissues appear intact. Interval resolution of soft tissue swelling third digit. RAD/Foot min 3 Views IMPRESSION: Degenerative changes above. Electronically Signed: Juvenal Lamb MD, KELLY at 11:04 EDT ,
--- NOTE | 2022-08-02 10:40 | RAD_ITS ---
STUDY: X-RAY - RIGHT FOOT CLINICAL: Female, 57 years old. ULCER TECHNIQUE: 3 view(s) of the foot. COMPARISON: 04/06/2022 FINDINGS: Normal talus, calcaneus, and tarsal bones. Normal visualized subtalar, talonavicular, calcaneocuboid, tarsal and tarsometatarsal articulations. There is a partially healed fracture of the medial base of the first proximal phalanx. This appears less conspicuous than on the prior study. There is moderate hallux valgus. There is moderate regional soft tissue swelling. Nnormal tibial and fibular sesamoid bones. Normal interphalangeal joint of the great toe. Normal phalanges of the great toe. Normal second through fifth metatarsophalangeal joints. Normal interphalangeal joints and phalanges of the lesser toes. The soft tissue structures are unremarkable. RAD/Foot min 3 Views IMPRESSION: Partially healed fracture medial base first proximal phalanx with underlying hallux valgus and adjacent moderate soft tissue swelling. Electronically Signed: Juvenal Lamb MD, KELLY at 11:03 EDT ,
[2022-08-02 11:10] LABS: Erythrocyte Sedimentation Rate 30 mm/hr (0-30)
[2022-08-02 11:13] LABS: Hematocrit 36.5 % (37-47); Hemoglobin 11.7 g/dL (12.0-15.0); Mean Corp Hgb Conc 32.1 g/dL (32-36); Mean Corpuscular Hgb 27.6 pg (27.0-32.0); Mean Corpuscular Volume 86.1 fL (81-99); Mean Platelet Vol. 8.9 fl (6.2-12.0); Platelet Count 321 K/mm3 (150-450); RBC Distribution Width CV 13.2 % (11.6-14.6); RBC Distribution Width SD 41.7 fl (35.1-43.9); Red Blood Count 4.24 M/mm3 (4.2-5.4); White Blood Count 8.5 K/mm3 (4.4-11.0)
[2022-08-02 11:22] LABS: Anion Gap 5 (5-15); BUN 9 mg/dL (7-18); BUN/Creat Ratio 12.4 RATIO (10-20); Calcium,Total 9.1 mg/dL (8.5-10.1); Chloride 105 mmol/L (98-107); Creatinine, Serum 0.72 mg/dL (0.55-1.02); EST Glomerular Filtration Rate 88 mL/min (>60); Est Glom Filt Rate - Afr Amer 107 mL/min (>60); Estimated Creatinine Clearance 86.96 ml/min; Glucose 82 mg/dL (74-106); Potassium 3.7 mmol/L (3.5-5.1); Sodium Level 139 mmol/L (136-145)
== END 2022-08-08 23:59 | disposition home or self-care (01) ==
LOC: WC 09:00
PROVIDERS: PCP Family Medicine; Referring Provider Podiatrist; Visit Provider Podiatrist
DX: L97.512 Non-pressure chronic ulcer of other part of right foot with fat layer exposed (principal); L89.622 Pressure ulcer of left heel, stage 2; E78.5 Hyperlipidemia, unspecified
CPT/HCPCS: 11042; 29445; 36415; 73630; 80048; 85027; 85652; 86140; 87070; 87075; 87077; 87186; 87205

== ENCOUNTER → 2022-08-29 | Outpatient (CLI) | payer MEDICARE, BC, SELFPAY ==
--- NOTE | 2022-08-29 16:37 | MRI_ITS ---
EXAM: MR RIGHT LOWER EXTREMITY WITHOUT INTRAVENOUS CONTRAST, FOOT CLINICAL INDICATION: RT FOOT NON PRESSURE CHRONIC ULCER TECHNIQUE: Multiplanar and multisequence MR images of the right foot without intravenous contrast. This report was created using [employer] report [employer] technology. COMPARISON: None. FINDINGS: Ulceration of the plantar aspect of the first digit. Bone marrow signal alteration involving the adjacent first proximal phalanx and first proximal to mid metatarsal are findings concerning for osteomyelitis. There is also a cyst at the peripheral aspect of the first metatarsal head and neck measuring up to 1.5 cm, benign. Incompletely imaged bone marrow signal alteration involving the anterior to mid calcaneus with no fracture line identified. Doubt osteomyelitis. Hallux valgus deformity with moderate degenerative changes of the first metatarsophalangeal joint. Tendons and ligaments are unremarkable to include the plantar aponeurosis. Small ganglion cysts adjacent to the base of the first metatarsal. Dorsal subcutaneous edema is nonspecific. Correlate clinically to exclude cellulitis. No phlegmon or abscess. MRI/Lower Ext/No Jt/w/o IMPRESSION: 1. Bone marrow signal alteration involving the first proximal phalanx and first proximal to mid metatarsal are findings concerning for osteomyelitis. 2. Ancillary findings as above. Electronically Signed: Smith Gallagher MD at 3:50 EST ,
== END | disposition home or self-care (01) ==
LOC: MRI 16:11
PROVIDERS: PCP Family Medicine; Referring Provider Podiatrist; Visit Provider Podiatrist
DX: L97.512 Non-pressure chronic ulcer of other part of right foot with fat layer exposed (principal)
CPT/HCPCS: 73718

== ENCOUNTER 2022-09-06 10:15 | Outpatient (RCR) | payer MEDICARE, BC, SELFPAY ==
[2022-08-09 00:28] VITALS: BP 146/78; PULSE 104; RESP 18; TEMP 35.7; BMI 37.2
--- NOTE | 2022-08-09 09:48 | PCM.WC.PN ---
History of Present Illness Date of Service: 08/09/22 Chief Complaint: Left heel ulcer right foot ulcers History of Wound: This pleasant 56-year-old female with significant past medical history of lupus, history of panic attack, depression, history of delayed healing, hyperlipidemia, irritable bowel syndrome, memory loss, restless leg syndrome, and obstructive sleep apnea is here for follow-up of left heel and right foot ulcers. She is ready for total contact cast application again today. Patient presents today with increased swelling redness to her right big toe. She offloads the right side with a surgical shoe felt an offloading pad. Patient has been treated with a total contact cast on the left lower extremity. She denies any constitutional symptoms at current and has no other complaints. Objective Data Objective Data Vital Signs: Vital Signs Temp Pulse Resp BP 96.2 F L 104 H 18 146/78 H 08/09/22 00:28 08/09/22 00:28 08/09/22 00:28 08/09/22 00:28 Weight: 111.13 kg Body Mass Index (BMI) 37.2 Physical Exam Narrative Patient alert oriented person place time. Vascular: Dorsalis pedis posterior tibial pulse palpable 2 out of 4. Absent digital hair growth some skin atrophic changes noted. Capillary fill time is less than 5 seconds to distal tuft of digits 1 through 5 bilaterally. There is no to be diffuse edema to right forefoot focusing at the level of the first metatarsal phalangeal joint. Focal increase in warmth and erythema to the site as well. Neurologic: Light touch and protective sensation diminished to bilateral feet. Dermatologic: Full-thickness wound noted to the plantar first metatarsal head with diffuse edema erythema and warmth to the site. No other signs of infection. Full-thickness wound noted to the plantar left heel with significant periwound hyperkeratosis. Wound base demonstrates healthy granular appearance with no other signs of infection.. Postdebridement measurements document nursing notes. Musculoskeletal: It is possible that there is some form of a calcaneal gait on the left lower extremity secondary to excessive lengthening of the Achilles tendon. Right lower extremity there is noted to be a hallux valgus deformity. No signs of DVT on clinical exam. Debridement Note Debridement Note Post-Debridement Measurements and Additional Note: Post-Debridement Measurements/Treatment WC - Nurse 2 - General Ulcer CM Notes Start: 08/09/22 09:32 Freq: Status: Active Protocol: Activity Type Activity Date Activity User E-sign Co-sign Detail Recorded Client Recorded Date Recorded By Document 08/09/22 09:38 STEPHANIE [id number] 08/09/22 09:41 STEPHANIE 08/09/22 09:38 Wound Center Nurse 2 9. R plantar -Time 09:39 -Correct Patient Yes -Correct Side, Site, Position Yes -Correct Procedure Yes -Procedure Performed Yes -Type of Procedure Debridement -Clinical Debridement Subcutaneous -Tissue Removed Subcutaneous -Post Debridement (cm) - Length 2 -Post Debridement (cm) - Width 2 -Post Debridement (cm) - Depth 0.2 -Total Square (Post) (cm) 4 -Area of Debridement (cm) - Length 2 -Area of Debridement (cm) - Width 2 -Total Square (Area) (cm) 4 -Tunneling No -Undermining/Tunneling No -Circular Undermining No -Wound/Ulcer Outcome Not Healed -Ulcer Cleansing Rinsed/ Irrigated with Saline -Foul Odor after Cleansing No -Bioengineered Tissue No -Bleeding Controlled with Pressure -Treatment Response Procedure Tolerated Well -Offloading Yes -Type of Offloading Surgical Shoe -Debridement - Subq, 1st 20sq cm Yes 8. L heel -Time 09:39 -Correct Patient Yes -Correct Side, Site, Position Yes -Correct Procedure Yes -Procedure Performed Yes -Type of Procedure Debridement -Clinical Debridement Subcutaneous -Tissue Removed Subcutaneous -Post Debridement (cm) - Length 0.7 -Post Debridement (cm) - Width 1.8 -Post Debridement (cm) - Depth 0.2 -Total Square (Post) (cm) 1.26 -Area of Debridement (cm) - Length 0.7 -Area of Debridement (cm) - Width 1.8 -Total Square (Area) (cm) 1.26 -Tunneling No -Undermining/Tunneling No -Circular Undermining No -Wound/Ulcer Outcome Not Healed -Ulcer Cleansing Rinsed/ Irrigated with Saline -Foul Odor after Cleansing No -Bioengineered Tissue No -Bleeding Controlled with Pressure -Treatment Response Procedure Tolerated Well -Offloading Yes -Type of Offloading Total Contact Cast (TCC) - Left ($) -Debridement - Subq, 1st 20sq cm No Pain Scale: 0-10 Numeric Is Patient Pain Free? Yes Assessment/Plan Assessment/Plan (1) Ulcer of left foot with fat layer exposed: CODE(S): L97.522 - Non-pressure chronic ulcer of other part of left foot with fat layer exposed PLAN: Patient examined evaluated, all findings discussed patient in detail. Wounds unchanged from previous visit. Culture from right foot wound demonstrated growth of MRSA and strep mitis sensitive to doxycycline and Keflex. Radiographs demonstrate old pathologic fracture of the proximal phalangeal base to the right hallux. Due to presence of wound pathologic fracture and chronic nonhealing nature of the wound I have recommended ordering emergent MRI to rule out osteomyelitis to the area. The right plantar first metatarsal head and left plantar heel wounds were excisionally debrided down to including level of subcutaneous tissue of all nonviable tissue using combination of tissue nippers and a 3 mm dermal curette. Procedure was done after obtaining oral consent. No incident. Hemostasis obtained with light compression. No anesthesia due to neuropathy. Aquacel silver to the right plantar first metatarsal head wound with a DSD. Neida foam DSD to left lower extremity along with total contact cast Discussed with patient that she should increase her nonweightbearing status to allow for left heel wound to improve more significantly. Even discussed with patient transitioning into a walker as ambulating in a surgical shoe is not improving her right foot wound as well. Patient states that she will attempt to remain nonweightbearing to her left lower extremity with a knee scooter to assist healing of the site in order to focus our attention on the right foot moving forward. (2) Ulcer of right foot with fat layer exposed: CODE(S): L97.512 - Non-pressure chronic ulcer of other part of right foot with fat layer exposed
[2022-08-09 11:22] VITALS: BP 140/82; PULSE 103; TEMP 35.7; BMI 37.2
[2022-08-16 09:07] VITALS: BP 127/79; PULSE 113; RESP 18; TEMP 36.1; BMI 37.2
--- NOTE | 2022-08-16 10:43 | PCM.WC.PN ---
History of Present Illness Date of Service: 08/16/22 Chief Complaint: Left heel ulcer right foot ulcers History of Wound: This pleasant 56-year-old female with significant past medical history of lupus, history of panic attack, depression, history of delayed healing, hyperlipidemia, irritable bowel syndrome, memory loss, restless leg syndrome, and obstructive sleep apnea is here for follow-up of left heel and right foot ulcers. She is ready for total contact cast application again today. Patient presents today with increased swelling redness to her right big toe. She offloads the right side with a surgical shoe felt an offloading pad. Patient has been treated with a total contact cast on the left lower extremity. She denies any constitutional symptoms at current and has no other complaints. Objective Data Objective Data Vital Signs: Vital Signs Temp Pulse Resp BP O2 Del Method 97 F L 113 H 18 127/79 H Room Air 08/16/22 09:07 08/16/22 09:07 08/16/22 09:07 08/16/22 09:07 08/16/22 09:07 Oxygen Delivery Method Room Air Weight: 111.13 kg Body Mass Index (BMI) 37.2 Physical Exam Narrative Patient alert oriented person place time. Vascular: Dorsalis pedis posterior tibial pulse palpable 2 out of 4. Absent digital hair growth some skin atrophic changes noted. Capillary fill time is less than 5 seconds to distal tuft of digits 1 through 5 bilaterally. There is no to be diffuse edema to right forefoot focusing at the level of the first metatarsal phalangeal joint. Focal increase in warmth and erythema to the site as well. Neurologic: Light touch and protective sensation diminished to bilateral feet. Dermatologic: Full-thickness wound noted to the plantar first metatarsal head with diffuse edema erythema and warmth to the site. No other signs of infection. Full-thickness wound noted to the plantar left heel with significant periwound hyperkeratosis. Wound base demonstrates healthy granular appearance with no other signs of infection.. Postdebridement measurements document nursing notes. Musculoskeletal: It is possible that there is some form of a calcaneal gait on the left lower extremity secondary to excessive lengthening of the Achilles tendon. Right lower extremity there is noted to be a hallux valgus deformity. No signs of DVT on clinical exam. 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 ) Arrival Mode Ambulatory Patient Identification Verified (Name & Yes ) Patient Requires Transmission-Based No Precautions Height and Weight Body Mass Index (BMI) 37.2 37.2 BMI Classification Obese Obese Vital Signs Temperature (97.8 F-99.1 F) 96.3 F L 97 F L Temperature Source Temporal Temporal Pulse Rate (60-100) 103 H 113 H Pulse Location Monitor Monitor Respiratory Rate (12-18) 18 Respiratory rate source Observation Oxygen Delivery Method Room Air Blood Pressure (90/60-120/80) 140/82 H 127/79 H Blood Pressure Mean (mm Hg) 101 95 Source Monitor Monitor Position Sitting Blood Pressure Location Left Arm History Since Last Visit- (Skip if this is Patient's initial visit) Have you changed medications since your No last visit? Any new allergies or adverse reactions No Had a fall/change in ADL's that may No increase risk of falls Signs or symptoms of abuse and/or No neglect since last visit Have you been in the hospital since your No last visit? Has dressing in place as prescribed Yes Yes Has compression in place as prescribed Yes Yes Has offloadiing in place as prescribed Yes Yes Experienced any changes in pain level or No Yes management Left Footwear Removable Cast Regular Shoe Walker/Walking Boot Right Footwear Surgical Shoe Regular Shoe with pressure relief insole Pain Scale: 0-10 Numeric Is Patient Pain Free? Yes Yes - Nurse 1 - General Ulcer Measurement Start: 08/09/22 09:32 Freq: Status: Active Protocol: Activity Type Activity Date Activity User E-sign Co-sign Detail Recorded Client Recorded Date Recorded By Document 08/09/22 11:22 AK [id number] 08/09/22 11:24 AK Document 08/16/22 09:07 DL [id number] 08/16/22 09:15 DL 08/09/22 08/16/22 11:22 09:07 Wound Center Nurse 1 9. R plantar -Combined with other wound No -Current Size (cm) - Length 2 2.1 -Current Size (cm) - Width 2 2.0 -Current Size (cm) - Depth 0.2 0.4 -Total Square Cm 4 4.20 -Date of Last Picture (Recall this 08/09/22 field) -Photo Taken Yes -Tunneling No -Undermining/Tunneling No -Circular Undermining No -Change in Wound Grade/Stage No -Exudate Amt Medium Small -Exudate Type Serosanguineous Serosanguineous -Wound Margin Distinct, Well Defined, Outline Not Attached Attached -Granulation Amt Large (67-100%) Large (67-100%) -Granulation Quality N/A,[employer] Pale,[employer] -Slough/Fibrin No -Necrosis Amt None Present (0 Small (1-33%) %) -Necrotic Tissue Type Adherent Slough -Structure Exposed N/A -Texture (Cecelia-wound Skin Appearance) No Abnormality, Assessed Assessed -Moisture (Cecelia-wound Skin Appearance) No Abnormality, Assessed Assessed -Color (Cecelia-wound Skin Appearance) No Abnormality, Assessed Assessed -Temperature (Cecelia-wound Skin No Abnormality No Abnormality Appearance) (Pt Warm) (Pt Warm) -Tenderness on Palpation (Cecelia-wound No No Skin Appearance) -Ulcer Cleansing Soap and Water Soap and Water -Foul Odor after Cleansing No No -Anesthetic Used 5% Lidocaine 4% Lidocaine Gel Solution 8. L heel -Combined with other wound No -Current Size (cm) - Length 0.5 0.5 -Current Size (cm) - Width 1 1.3 -Current Size (cm) - Depth 0.3 0.3 -Total Square Cm 0.5 0.65 -Date of Last Picture (Recall this 08/09/22 field) -Photo Taken Yes -Tunneling No -Undermining/Tunneling No Yes -Undermining/Tunneling Starts (O'clock 1 ) -Undermining/Tunneling Ends (O'clock) 2 -Maximum Distance (cm) 0.2 -Circular Undermining No -Change in Wound Grade/Stage No -Exudate Amt Small Small -Exudate Type Serosanguineous Serosanguineous -Wound Margin Distinct, Flat & Intact Outline Attached -Granulation Amt Medium (34-66%) Large (67-100%) -Granulation Quality [employer] Pale,[employer] -Slough/Fibrin Yes -Necrosis Amt Small (1-33%) Small (1-33%) -Necrotic Tissue Type Adherent Slough Adherent Slough -Structure Exposed N/A -Texture (Cecelia-wound Skin Appearance) No Abnormality, Assessed Assessed -Moisture (Cecelia-wound Skin Appearance) No Abnormality, Assessed Assessed -Color (Cecelia-wound Skin Appearance) No Abnormality, Assessed Assessed -Temperature (Cecelia-wound Skin No Abnormality No Abnormality Appearance) (Pt Warm) (Pt Warm) -Tenderness on Palpation (Cecelia-wound No No Skin Appearance) -Ulcer Cleansing Soap and Water Soap and Water -Foul Odor after Cleansing No No -Anesthetic Used 5% Lidocaine 4% Lidocaine Gel Solution Lower Limb Edema Present No NA WC - Nurse 2 - General Ulcer CM Notes Start: 08/09/22 09:32 Freq: Status: Active Protocol: Activity Type Activity Date Activity User E-sign Co-sign Detail Recorded Client Recorded Date Recorded By Document 08/09/22 09:38 [id number] 08/09/22 09:41 Document 08/16/22 09:40 [id number] 08/16/22 09:48 08/09/22 08/16/22 09:38 09:40 Wound Center Nurse 2 9. R plantar -Time 09:39 09:42 -Correct Patient Yes Yes -Correct Side, Site, Position Yes Yes -Correct Procedure Yes Yes -Procedure Performed Yes Yes -Type of Procedure Debridement Debridement -Clinical Debridement Subcutaneous Subcutaneous -Tissue Removed Subcutaneous Subcutaneous -Post Debridement (cm) - Length 2 2.2 -Post Debridement (cm) - Width 2 2.0 -Post Debridement (cm) - Depth 0.2 0.4 -Total Square (Post) (cm) 4 4.40 -Area of Debridement (cm) - Length 2 2.2 -Area of Debridement (cm) - Width 2 2.0 -Total Square (Area) (cm) 4 4.40 -Tunneling No No -Undermining/Tunneling No No -Circular Undermining No No -Wound/Ulcer Outcome Not Healed Not Healed -Ulcer Cleansing Rinsed/ Rinsed/ Irrigated with Irrigated with Saline Saline -Foul Odor after Cleansing No No -Bioengineered Tissue No No -Bleeding Controlled with Pressure Pressure -Treatment Response Procedure Procedure Tolerated Well Tolerated Well -Offloading Yes Yes -Type of Offloading Surgical Shoe Surgical Shoe -Debridement - Subq, 1st 20sq cm Yes Yes 8. L heel -Time 09:39 09:46 -Correct Patient Yes Yes -Correct Side, Site, Position Yes Yes -Correct Procedure Yes Yes -Procedure Performed Yes Yes -Type of Procedure Debridement Debridement -Clinical Debridement Subcutaneous Subcutaneous -Tissue Removed Subcutaneous Subcutaneous -Post Debridement (cm) - Length 0.7 0.6 -Post Debridement (cm) - Width 1.8 1.3 -Post Debridement (cm) - Depth 0.2 0.3 -Total Square (Post) (cm) 1.26 0.78 -Area of Debridement (cm) - Length 0.7 0.6 -Area of Debridement (cm) - Width 1.8 1.3 -Total Square (Area) (cm) 1.26 0.78 -Tunneling No No -Undermining/Tunneling No No -Circular Undermining No No -Wound/Ulcer Outcome Not Healed Not Healed -Ulcer Cleansing Rinsed/ Rinsed/ Irrigated with Irrigated with Saline Saline -Foul Odor after Cleansing No No -Bioengineered Tissue No No -Bleeding Controlled with Pressure Pressure -Treatment Response Procedure Procedure Tolerated Well Tolerated Well -Offloading Yes Yes -Type of Offloading Total Contact Total Contact Cast (TCC) - Cast (TCC) - Left ($) Left ($) -Debridement - Subq, 1st 20sq cm No No Pain Scale: 0-10 Numeric Is Patient Pain Free? Yes Yes - Nurse 3 - General Ulcer D/C NN Start: 08/09/22 09:32 Freq: Status: Active Protocol: Activity Type Activity Date Activity User E-sign Co-sign Detail Recorded Client Recorded Date Recorded By Document 08/09/22 11:25 ID [id number] 08/09/22 11:26 ID Document 08/16/22 09:53 [facility] [id number] 08/16/22 09:54 [facility] 08/09/22 08/16/22 11:25 09:53 Wound Care Nurse 3 9. R plantar -Ulcer Cleansing Rinsed/ Rinsed/ Irrigated with Irrigated with Saline Saline -Foul Odor after Cleansing No No -Negative Pressure Wound Therapy N/A -Primary Dressing Applied Aquacel AG 4x4 Aquacel AG 2x2 -Primary Dressing Covered/Secured with Dry Gauze & Dry Gauze & Roll Gauze, Roll Gauze, Secured with Secured with Tape Tape -Other Covering DRSG PER DL APPLE PRESS OPERATOR -Aquacel AG 4x4 1 -Aquacel AG 2x2 1 1 8. L heel -Ulcer Cleansing Rinsed/ Rinsed/ Irrigated with Irrigated with Saline Saline -Foul Odor after Cleansing No No -Negative Pressure Wound Therapy N/A -Primary Dressing Applied Promogran Promogran Neida Matter Neida Matter -Other Dressing foam and size 3 TCC, FOAM TCC -Primary Dressing Covered/Secured with Dry Gauze & Roll Gauze, Secured with Tape -Promogran Neida Matter 1 1 Treatment Response Procedure Tolerated Well Pain Scale: 0-10 Numeric Is Patient Pain Free? Yes Yes WC - Visit Discharge Discharge Condition Stable Transportation Private Auto Assessment/Plan Assessment/Plan (1) Ulcer of left foot with fat layer exposed: CODE(S): L97.522 - Non-pressure chronic ulcer of other part of left foot with fat layer exposed PLAN: Patient examined evaluated, all findings discussed patient in detail. Previous radiographs reviewed demonstrate possible pathologic fracture to first MPJ of the right side. Patient is awaiting MRI. Redness swelling improved from previous visit. Patient taking doxycycline and Augmentin for MRSA and strep mitis infection. We will continue this due to concern for bone involvement. We will consider infectious disease consultation pending MRI results. We may consider surgical intervention including health hallux metatarsophalangeal joint arthroplasty on the right lower extremity. The right plantar first metatarsal head and left plantar heel wounds were excisionally debrided down to including level of subcutaneous tissue of all nonviable tissue using combination of tissue nippers and a 3 mm dermal curette. Procedure was done after obtaining oral consent. No incident. Hemostasis obtained with light compression. No anesthesia due to neuropathy. Aquacel silver to the right plantar first metatarsal head wound with a DSD. Neida foam DSD to left lower extremity along with total contact cast applied to the left lower extremity. Patient will continue protected weightbearing total contact cast to left lower extremity and nonweightbearing to right foot. She will do this with knee scooter and right side. Follow-up in 1 week. (2) Ulcer of right foot with fat layer exposed: CODE(S): L97.512 - Non-pressure chronic ulcer of other part of right foot with fat layer exposed
[2022-08-23 09:09] VITALS: BP 131/82; PULSE 110; RESP 16; TEMP 35.8; BMI 37.2
--- NOTE | 2022-08-23 09:35 | PCM.WC.PN ---
History of Present Illness Date of Service: 08/23/22 Chief Complaint: Left heel ulcer right foot ulcers History of Wound: This pleasant 56-year-old female with significant past medical history of lupus, history of panic attack, depression, history of delayed healing, hyperlipidemia, irritable bowel syndrome, memory loss, restless leg syndrome, and obstructive sleep apnea is here for follow-up of left heel and right foot ulcers. She is ready for total contact cast application again today. Patient presents today with increased swelling redness to her right big toe. She offloads the right side with a surgical shoe felt an offloading pad. Patient has been treated with a total contact cast on the left lower extremity. She denies any constitutional symptoms at current and has no other complaints. Objective Data Objective Data Vital Signs: Vital Signs Temp Pulse Resp BP O2 Del Method 96.4 F L 110 H 16 131/82 H Room Air 08/23/22 09:09 08/23/22 09:09 08/23/22 09:09 08/23/22 09:09 08/23/22 09:09 Oxygen Delivery Method Room Air Weight: 111.13 kg Body Mass Index (BMI) 37.2 Physical Exam Narrative Patient alert oriented person place time. Vascular: Dorsalis pedis posterior tibial pulse palpable 2 out of 4. Absent digital hair growth some skin atrophic changes noted. Capillary fill time is less than 5 seconds to distal tuft of digits 1 through 5 bilaterally. There is no to be diffuse edema to right forefoot focusing at the level of the first metatarsal phalangeal joint. Focal increase in warmth and erythema to the site as well. Neurologic: Light touch and protective sensation diminished to bilateral feet. Dermatologic: Full-thickness wound noted to the plantar first metatarsal head with diffuse edema erythema and warmth to the site. No other signs of infection. Full-thickness wound noted to the plantar left heel with significant periwound hyperkeratosis. Wound base demonstrates healthy granular appearance with no other signs of infection.. Postdebridement measurements document nursing notes. Musculoskeletal: It is possible that there is some form of a calcaneal gait on the left lower extremity secondary to excessive lengthening of the Achilles tendon. Right lower extremity there is noted to be a hallux valgus deformity. No signs of DVT on clinical exam. Debridement Note Debridement Note Post-Debridement Measurements and Additional Note: Post-Debridement Measurements/Treatment WC - Nurse 1 - General Ulcer Assessment Start: 08/09/22 09:32 Freq: Status: Active Protocol: [email or web address].LOWEXT Activity Type Activity Date Activity User E-sign Co-sign Detail Recorded Client Recorded Date Recorded By Document 08/09/22 11:22 AK [id number] 08/09/22 11:24 AK Document 08/16/22 09:07 DL [id number] 08/16/22 09:15 DL Document 08/23/22 09:09 [facility] [id number] 08/23/22 09:19 BMF 08/09/22 08/16/22 08/23/22 11:22 09:07 09:09 WC - Today's Visit Information Type of service Follow-up Visit Follow-up Visit (Physician/DIESEL POWERPLANT MECHANIC (Physician/DIESEL POWERPLANT MECHANIC ) ) Arrival Mode Ambulatory Ambulatory Transfer Assistance None Patient Identification Verified (Name & Yes Yes ) Patient Requires Transmission-Based No No Precautions Height and Weight Body Mass Index (BMI) 37.2 37.2 37.2 BMI Classification Obese Obese Obese Vital Signs Temperature (97.8 F-99.1 F) 96.3 F L 97 F L 96.4 F L Temperature Source Temporal Temporal Temporal Pulse Rate (60-100) 103 H 113 H 110 H Pulse Location Monitor Monitor Monitor Respiratory Rate (12-18) 18 16 Respiratory rate source Observation Observation Oxygen Delivery Method Room Air Room Air Blood Pressure (90/60-120/80) 140/82 H 127/79 H 131/82 H Blood Pressure Mean (mm Hg) 101 95 98 Source Monitor Monitor Monitor Position Sitting Sitting Blood Pressure Location Left Arm Left Arm History Since Last Visit- (Skip if this is Patient's initial visit) Have you changed medications since your No No last visit? Any new allergies or adverse reactions No No Had a fall/change in ADL's that may No No increase risk of falls Signs or symptoms of abuse and/or No No neglect since last visit Have you been in the hospital since your No No last visit? Has dressing in place as prescribed Yes Yes Yes Has compression in place as prescribed Yes Yes N/A Has offloadiing in place as prescribed Yes Yes Yes Experienced any changes in pain level or No Yes No management Left Footwear Removable Cast Regular Shoe Total Contact Walker/Walking Cast Boot Right Footwear Surgical Shoe Regular Shoe Regular Shoe with pressure relief insole Pain Scale: 0-10 Numeric Is Patient Pain Free? Yes Yes Yes WC - Nurse 1 - General Ulcer Measurement Start: 08/09/22 09:32 Freq: Status: Active Protocol: Activity Type Activity Date Activity User E-sign Co-sign Detail Recorded Client Recorded Date Recorded By Document 08/09/22 11:22 AK [id number] 08/09/22 11:24 AK Document 08/16/22 09:07 DL [id number] 08/16/22 09:15 DL Document 08/23/22 09:09 [facility] [id number] 08/23/22 09:19 BMF 08/09/22 08/16/22 08/23/22 11:22 09:07 09:09 Wound Center Nurse 1 9. R plantar -Combined with other wound No No -Current Size (cm) - Length 2 2.1 1.8 -Current Size (cm) - Width 2 2.0 1.7 -Current Size (cm) - Depth 0.2 0.4 0.7 -Total Square Cm 4 4.20 3.06 -Date of Last Picture (Recall this 08/09/22 08/23/22 field) -Photo Taken Yes Yes -Epithelialization None Present -Tunneling No No -Undermining/Tunneling No No -Circular Undermining No No -Change in Wound Grade/Stage No -Exudate Amt Medium Small Medium -Exudate Type Serosanguineous Serosanguineous Serosanguineous -Wound Margin Distinct, Well Defined, Distinct, Outline Not Attached Outline Attached Attached -Granulation Amt Large (67-100%) Large (67-100%) Large (67-100%) -Granulation Quality N/A,[place] Pale,[place] Red -Slough/Fibrin No No -Necrosis Amt None Present (0 Small (1-33%) None Present (0 %) %) -Necrotic Tissue Type Adherent Slough -Structure Exposed N/A -Texture (Cecelia-wound Skin Appearance) No Abnormality, Assessed Assessed,Callus Assessed -Moisture (Cecelia-wound Skin Appearance) No Abnormality, Assessed Assessed,Dry/ Assessed Scaly -Color (Cecelia-wound Skin Appearance) No Abnormality, Assessed Assessed Assessed -Temperature (Cecelia-wound Skin No Abnormality No Abnormality No Abnormality Appearance) (Pt Warm) (Pt Warm) (Pt Warm) -Tenderness on Palpation (Cecelia-wound No No No Skin Appearance) -Ulcer Cleansing Soap and Water Soap and Water Soap and Water -Foul Odor after Cleansing No No No -Anesthetic Used 5% Lidocaine 4% Lidocaine 5% Lidocaine Gel Solution Gel 8. L heel -Combined with other wound No No -Current Size (cm) - Length 0.5 0.5 0.3 -Current Size (cm) - Width 1 1.3 1 -Current Size (cm) - Depth 0.3 0.3 0.6 -Total Square Cm 0.5 0.65 0.3 -Date of Last Picture (Recall this 08/09/22 08/23/22 field) -Photo Taken Yes Yes -Epithelialization None Present -Tunneling No No -Undermining/Tunneling No Yes Yes -Undermining/Tunneling Starts (O'clock 1 1 ) -Undermining/Tunneling Ends (O'clock) 2 6 -Maximum Distance (cm) 0.2 0.4 -Circular Undermining No -Change in Wound Grade/Stage No -Exudate Amt Small Small Medium -Exudate Type Serosanguineous Serosanguineous Serosanguineous -Wound Margin Distinct, Flat & Intact Distinct, Outline Outline Attached Attached -Granulation Amt Medium (34-66%) Large (67-100%) Large (67-100%) -Granulation Quality [place] Pale,[place] Red -Slough/Fibrin Yes No -Necrosis Amt Small (1-33%) Small (1-33%) None Present (0 %) -Necrotic Tissue Type Adherent Slough Adherent Slough -Structure Exposed N/A -Texture (Cecelia-wound Skin Appearance) No Abnormality, Assessed Assessed, Assessed Scarring -Moisture (Cecelia-wound Skin Appearance) No Abnormality, Assessed Assessed,Dry/ Assessed Scaly -Color (Cecelia-wound Skin Appearance) No Abnormality, Assessed Assessed Assessed -Temperature (Cecelia-wound Skin No Abnormality No Abnormality No Abnormality Appearance) (Pt Warm) (Pt Warm) (Pt Warm) -Tenderness on Palpation (Cecelia-wound No No No Skin Appearance) -Ulcer Cleansing Soap and Water Soap and Water Soap and Water -Foul Odor after Cleansing No No No -Anesthetic Used 5% Lidocaine 4% Lidocaine 5% Lidocaine Gel Solution Gel Lower Limb Edema Present No NA WC - Nurse 2 - General Ulcer CM Notes Start: 08/09/22 09:32 Freq: Status: Active Protocol: Activity Type Activity Date Activity User E-sign Co-sign Detail Recorded Client Recorded Date Recorded By Document 08/09/22 09:38 [id number] 08/09/22 09:41 Document 08/16/22 09:40 [id number] 08/16/22 09:48 Document 08/23/22 09:26 [id number] 08/23/22 09:33 08/09/22 08/16/22 08/23/22 09:38 09:40 09:26 Wound Center Nurse 2 9. R plantar -Time 09:39 09:42 09:26 -Correct Patient Yes Yes Yes -Correct Side, Site, Position Yes Yes Yes -Correct Procedure Yes Yes Yes -Procedure Performed Yes Yes Yes -Type of Procedure Debridement Debridement Debridement -Clinical Debridement Subcutaneous Subcutaneous Subcutaneous -Tissue Removed Subcutaneous Subcutaneous Subcutaneous -Post Debridement (cm) - Length 2 2.2 1.8 -Post Debridement (cm) - Width 2 2.0 1.8 -Post Debridement (cm) - Depth 0.2 0.4 0.6 -Total Square (Post) (cm) 4 4.40 3.24 -Area of Debridement (cm) - Length 2 2.2 1.8 -Area of Debridement (cm) - Width 2 2.0 1.8 -Total Square (Area) (cm) 4 4.40 3.24 -Tunneling No No No -Undermining/Tunneling No No No -Circular Undermining No No No -Wound/Ulcer Outcome Not Healed Not Healed Not Healed -Ulcer Cleansing Rinsed/ Rinsed/ Rinsed/ Irrigated with Irrigated with Irrigated with Saline Saline Saline -Foul Odor after Cleansing No No No -Bioengineered Tissue No No No -Bleeding Controlled with Pressure Pressure Pressure -Treatment Response Procedure Procedure Procedure Tolerated Well Tolerated Well Tolerated Well -Offloading Yes Yes Yes -Type of Offloading Surgical Shoe Surgical Shoe Surgical Shoe -Debridement - Subq, 1st 20sq cm Yes Yes Yes 8. L heel -Time 09:39 09:46 09:26 -Correct Patient Yes Yes Yes -Correct Side, Site, Position Yes Yes Yes -Correct Procedure Yes Yes Yes -Procedure Performed Yes Yes Yes -Type of Procedure Debridement Debridement Debridement -Clinical Debridement Subcutaneous Subcutaneous Subcutaneous -Tissue Removed Subcutaneous Subcutaneous Subcutaneous -Post Debridement (cm) - Length 0.7 0.6 0.5 -Post Debridement (cm) - Width 1.8 1.3 1.3 -Post Debridement (cm) - Depth 0.2 0.3 0.5 -Total Square (Post) (cm) 1.26 0.78 0.65 -Area of Debridement (cm) - Length 0.7 0.6 0.5 -Area of Debridement (cm) - Width 1.8 1.3 1.3 -Total Square (Area) (cm) 1.26 0.78 0.65 -Tunneling No No No -Undermining/Tunneling No No No -Circular Undermining No No No -Wound/Ulcer Outcome Not Healed Not Healed Not Healed -Ulcer Cleansing Rinsed/ Rinsed/ Rinsed/ Irrigated with Irrigated with Irrigated with Saline Saline Saline -Foul Odor after Cleansing No No No -Bioengineered Tissue No No No -Bleeding Controlled with Pressure Pressure Pressure -Treatment Response Procedure Procedure Procedure Tolerated Well Tolerated Well Tolerated Well -Offloading Yes Yes Yes -Type of Offloading Total Contact Total Contact Total Contact Cast (TCC) - Cast (TCC) - Cast (TCC) - Left ($) Left ($) Left ($) -Debridement - Subq, 1st 20sq cm No No No Pain Scale: 0-10 Numeric Is Patient Pain Free? Yes Yes Yes WC - Nurse 3 - General Ulcer D/C NN Start: 08/09/22 09:32 Freq: Status: Active Protocol: Activity Type Activity Date Activity User E-sign Co-sign Detail Recorded Client Recorded Date Recorded By Document 08/09/22 11:25 [place] [id number] 08/09/22 11:26 [place] Document 08/16/22 09:53 [facility] [id number] 08/16/22 09:54 [facility] 08/09/22 08/16/22 11:25 09:53 Wound Care Nurse 3 9. R plantar -Ulcer Cleansing Rinsed/ Rinsed/ Irrigated with Irrigated with Saline Saline -Foul Odor after Cleansing No No -Negative Pressure Wound Therapy N/A -Primary Dressing Applied Aquacel AG 4x4 Aquacel AG 2x2 -Primary Dressing Covered/Secured with Dry Gauze & Dry Gauze & Roll Gauze, Roll Gauze, Secured with Secured with Tape Tape -Other Covering DRSG PER DL PROGRAMMING MANAGER -Aquacel AG 4x4 1 -Aquacel AG 2x2 1 1 8. L heel -Ulcer Cleansing Rinsed/ Rinsed/ Irrigated with Irrigated with Saline Saline -Foul Odor after Cleansing No No -Negative Pressure Wound Therapy N/A -Primary Dressing Applied Promogran Promogran Neida Matter Neida Matter -Other Dressing foam and size 3 TCC, FOAM TCC -Primary Dressing Covered/Secured with Dry Gauze & Roll Gauze, Secured with Tape -Promogran Neida Matter 1 1 Treatment Response Procedure Tolerated Well Pain Scale: 0-10 Numeric Is Patient Pain Free? Yes Yes WC - Visit Discharge Discharge Condition Stable Transportation Private Auto Assessment/Plan Assessment/Plan (1) Ulcer of left foot with fat layer exposed: CODE(S): L97.522 - Non-pressure chronic ulcer of other part of left foot with fat layer exposed PLAN: Patient examined evaluated, all findings discussed patient in detail. Previous radiographs reviewed demonstrate possible pathologic fracture to first MPJ of the right side. Patient is awaiting MRI. Redness swelling improved from previous visit. Patient taking doxycycline and Augmentin for MRSA and strep mitis infection. We will continue this due to concern for bone involvement. We will consider infectious disease consultation pending MRI results. We may consider surgical intervention including health hallux metatarsophalangeal joint arthroplasty on the right lower extremity. The right plantar first metatarsal head and left plantar heel wounds were excisionally debrided down to including level of subcutaneous tissue of all nonviable tissue using combination of tissue nippers and a 3 mm dermal curette. Procedure was done after obtaining oral consent. No incident. Hemostasis obtained with light compression. No anesthesia due to neuropathy. Aquacel silver to the right plantar first metatarsal head wound with a DSD. Neida foam DSD to left lower extremity along with total contact cast applied to the left lower extremity. Patient will continue protected weightbearing total contact cast to left lower extremity and nonweightbearing to right foot. She will do this with knee scooter and right side. Follow-up in 1 week. (2) Ulcer of right foot with fat layer exposed: CODE(S): L97.512 - Non-pressure chronic ulcer of other part of right foot with fat layer exposed
[2022-08-30 09:49] VITALS: BP 141/86; PULSE 123; RESP 18; TEMP 36.1; BMI 37.2
--- NOTE | 2022-08-30 10:36 | PN.PCM_ITS ---
History of Present Illness Date of Service: 08/30/22 Chief Complaint: Left heel ulcer right foot ulcers History of Wound: This pleasant 56-year-old female with significant past medical history of lupus, history of panic attack, depression, history of delayed healing, hyperlipidemia, irritable bowel syndrome, memory loss, restless leg syndrome, and obstructive sleep apnea is here for follow-up of left heel and right foot ulcers. She is ready for total contact cast application again today. Patient presents today with increased swelling redness to her right big toe. She offloads the right side with a surgical shoe felt an offloading pad. Patient has been treated with a total contact cast on the left lower extremity. She denies any constitutional symptoms at current and has no other complaints. Objective Data Objective Data Vital Signs: Vital Signs Temp Pulse Resp BP O2 Del Method 97 F L 123 H 18 141/86 H Room Air 08/30/22 09:49 08/30/22 09:49 08/30/22 09:49 08/30/22 09:49 08/23/22 09:09 Oxygen Delivery Method Room Air Weight: 111.13 kg Body Mass Index (BMI) 37.2 Physical Exam Narrative Patient alert oriented person place time. Vascular: Dorsalis pedis posterior tibial pulse palpable 2 out of 4. Absent digital hair growth some skin atrophic changes noted. Capillary fill time is less than 5 seconds to distal tuft of digits 1 through 5 bilaterally. There is no to be diffuse edema to right forefoot focusing at the level of the first metatarsal phalangeal joint. Focal increase in warmth and erythema to the site as well. Neurologic: Light touch and protective sensation diminished to bilateral feet. Dermatologic: Full-thickness wound noted to the plantar first metatarsal head with diffuse edema erythema and warmth to the site. No other signs of infection. Full-thickness wound noted to the plantar left heel with significant periwound hyperkeratosis. Wound base demonstrates healthy granular appearance with no other signs of infection.. Postdebridement measurements document nursing notes. Musculoskeletal: It is possible that there is some form of a calcaneal gait on the left lower extremity secondary to excessive lengthening of the Achilles tendon. Right lower extremity there is noted to be a hallux valgus deformity. No signs of DVT on clinical exam. Debridement Note Debridement Note Post-Debridement Measurements and Additional Note: Post-Debridement Measurements/Treatment WC - Nurse 1 - General Ulcer Assessment Start: 08/09/22 09:32 Freq: Status: Active Protocol: WC.LOWEXT Activity Type Activity Date Activity User E-sign Co-sign Detail Recorded Client Recorded Date Recorded By Document 08/09/22 11:22 AK [id number] 08/09/22 11:24 AK Document 08/16/22 09:07 DL [id number] 08/16/22 09:15 DL Document 08/23/22 09:09 BMF [id number] 08/23/22 09:19 BMF Document 08/30/22 09:49 DL [id number] 08/30/22 10:01 DL 08/09/22 08/16/22 08/23/22 11: 09:07 09:09 WC - Today's Visit Information Type of service Follow-up Visit Follow-up Visit (Physician/COUNTERPERSON (Physician/COUNTERPERSON ) ) Arrival Mode Ambulatory Ambulatory Transfer Assistance None Patient Identification Verified (Name & Yes Yes ) Patient Requires Transmission-Based No No Precautions Height and Weight Body Mass Index (BMI) 37.2 37.2 37.2 BMI Classification Obese Obese Obese Vital Signs Temperature (97.8 F-99.1 F) 96.3 F L 97 F L 96.4 F L Temperature Source Temporal Temporal Temporal Pulse Rate (60-100) 103 H 113 H 110 H Pulse Location Monitor Monitor Monitor Respiratory Rate (12-18) 18 16 Respiratory rate source Observation Observation Oxygen Delivery Method Room Air Room Air Blood Pressure (90/60-120/80) 140/82 H 127/79 H 131/82 H Blood Pressure Mean (mm Hg) 101 95 98 Source Monitor Monitor Monitor Position Sitting Sitting Blood Pressure Location Left Arm Left Arm History Since Last Visit- (Skip if this is Patient's initial visit) Have you changed medications since your No No last visit? Any new allergies or adverse reactions No No Had a fall/change in ADL's that may No No increase risk of falls Signs or symptoms of abuse and/or No No neglect since last visit Have you been in the hospital since your No No last visit? Has dressing in place as prescribed Yes Yes Yes Has compression in place as prescribed Yes Yes N/A Has offloadiing in place as prescribed Yes Yes Yes Experienced any changes in pain level or No Yes No management Left Footwear Removable Cast Regular Shoe Total Contact Walker/Walking Cast Boot Right Footwear Surgical Shoe Regular Shoe Regular Shoe with pressure relief insole Pain Scale: 0-10 Numeric Is Patient Pain Free? Yes Yes Yes 08/30/22 09:49 WC - Today's Visit Information Type of service Follow-up Visit (Physician/COUNTERPERSON ) Arrival Mode Ambulatory, Walker Transfer Assistance None Patient Identification Verified (Name & Yes ) Patient Requires Transmission-Based No Precautions Height and Weight Body Mass Index (BMI) 37.2 BMI Classification Obese Vital Signs Temperature (97.8 F-99.1 F) 97 F L Temperature Source Temporal Pulse Rate (60-100) 123 H Pulse Location Monitor Respiratory Rate (12-18) 18 Respiratory rate source Observation Oxygen Delivery Method Blood Pressure (90/60-120/80) 141/86 H Blood Pressure Mean (mm Hg) 104 Source Monitor Position Blood Pressure Location History Since Last Visit- (Skip if this is Patient's initial visit) Have you changed medications since your No last visit? Any new allergies or adverse reactions No Had a fall/change in ADL's that may No increase risk of falls Signs or symptoms of abuse and/or No neglect since last visit Have you been in the hospital since your No last visit? Has dressing in place as prescribed Yes Has compression in place as prescribed Yes Has offloadiing in place as prescribed N/A Experienced any changes in pain level or No management Left Footwear Total Contact Cast Right Footwear Pain Scale: 0-10 Numeric Is Patient Pain Free? Yes - Nurse 1 - General Ulcer Measurement Start: 08/09/22 09:32 Freq: Status: Active Protocol: Activity Type Activity Date Activity User E-sign Co-sign Detail Recorded Client Recorded Date Recorded By Document 08/09/22 11:22 AK [id number] 08/09/22 11:24 AK Document 08/16/22 09:07 DL [id number] 08/16/22 09:15 DL Document 08/23/22 09:09 [facility] [id number] 08/23/22 09:19 BMF Document 08/30/22 09:49 DL [id number] 08/30/22 10:01 DL 08/09/22 08/16/22 08/23/22 11:22 09:07 09:09 Wound Center Nurse 1 9. R plantar -Combined with other wound No No -Current Size (cm) - Length 2 2.1 1.8 -Current Size (cm) - Width 2 2.0 1.7 -Current Size (cm) - Depth 0.2 0.4 0.7 -Total Square Cm 4 4.20 3.06 -Date of Last Picture (Recall this 08/09/22 08/23/22 field) -Photo Taken Yes Yes -Epithelialization None Present -Tunneling No No -Undermining/Tunneling No No -Circular Undermining No No -Change in Wound Grade/Stage No -Exudate Amt Medium Small Medium -Exudate Type Serosanguineous Serosanguineous Serosanguineous -Wound Margin Distinct, Well Defined, Distinct, Outline Not Attached Outline Attached Attached -Granulation Amt Large (67-100%) Large (67-100%) Large (67-100%) -Granulation Quality N/A,[place] Pale,[place] Red -Slough/Fibrin No No -Necrosis Amt None Present (0 Small (1-33%) None Present (0 %) %) -Necrotic Tissue Type Adherent Slough -Structure Exposed N/A -Texture (Cecelia-wound Skin Appearance) No Abnormality, Assessed Assessed,Callus Assessed -Moisture (Cecelia-wound Skin Appearance) No Abnormality, Assessed Assessed,Dry/ Assessed Scaly -Color (Cecelia-wound Skin Appearance) No Abnormality, Assessed Assessed Assessed -Temperature (Cecelia-wound Skin No Abnormality No Abnormality No Abnormality Appearance) (Pt Warm) (Pt Warm) (Pt Warm) -Tenderness on Palpation (Cecelia-wound No No No Skin Appearance) -Ulcer Cleansing Soap and Water Soap and Water Soap and Water -Foul Odor after Cleansing No No No -Anesthetic Used 5% Lidocaine 4% Lidocaine 5% Lidocaine Gel Solution Gel 8. L heel -Combined with other wound No No -Current Size (cm) - Length 0.5 0.5 0.3 -Current Size (cm) - Width 1 1.3 1 -Current Size (cm) - Depth 0.3 0.3 0.6 -Total Square Cm 0.5 0.65 0.3 -Date of Last Picture (Recall this 08/09/22 08/23/22 field) -Photo Taken Yes Yes -Epithelialization None Present -Tunneling No No -Undermining/Tunneling No Yes Yes -Undermining/Tunneling Starts (O'clock 1 1 ) -Undermining/Tunneling Ends (O'clock) 2 6 -Maximum Distance (cm) 0.2 0.4 -Circular Undermining No -Change in Wound Grade/Stage No -Exudate Amt Small Small Medium -Exudate Type Serosanguineous Serosanguineous Serosanguineous -Wound Margin Distinct, Flat & Intact Distinct, Outline Outline Attached Attached -Granulation Amt Medium (34-66%) Large (67-100%) Large (67-100%) -Granulation Quality [place] Pale,[place] Red -Slough/Fibrin Yes No -Necrosis Amt Small (1-33%) Small (1-33%) None Present (0 %) -Necrotic Tissue Type Adherent Slough Adherent Slough -Structure Exposed N/A -Texture (Cecelia-wound Skin Appearance) No Abnormality, Assessed Assessed, Assessed Scarring -Moisture (Cecelia-wound Skin Appearance) No Abnormality, Assessed Assessed,Dry/ Assessed Scaly -Color (Cecelia-wound Skin Appearance) No Abnormality, Assessed Assessed Assessed -Temperature (Cecelia-wound Skin No Abnormality No Abnormality No Abnormality Appearance) (Pt Warm) (Pt Warm) (Pt Warm) -Tenderness on Palpation (Cecelia-wound No No No Skin Appearance) -Ulcer Cleansing Soap and Water Soap and Water Soap and Water -Foul Odor after Cleansing No No No -Anesthetic Used 5% Lidocaine 4% Lidocaine 5% Lidocaine Gel Solution Gel Lower Limb Edema Present No NA Left Calf (cm) Left Ankle (cm) 08/30/22 09:49 Wound Center Nurse 1 9. R plantar -Combined with other wound No -Current Size (cm) - Length 1.9 -Current Size (cm) - Width 1.9 -Current Size (cm) - Depth 0.9 -Total Square Cm 3.61 -Date of Last Picture (Recall this field) -Photo Taken Yes -Epithelialization Small 1-33% -Tunneling -Undermining/Tunneling No -Circular Undermining No -Change in Wound Grade/Stage -Exudate Amt Medium -Exudate Type Serosanguineous -Wound Margin Distinct, Outline Attached -Granulation Amt Large (67-100%) -Granulation Quality [place],Red -Slough/Fibrin Yes -Necrosis Amt Small (1-33%) -Necrotic Tissue Type Adherent Slough -Structure Exposed N/A -Texture (Cecelia-wound Skin Appearance) Assessed, Localized Edema ,Scarring -Moisture (Cecelia-wound Skin Appearance) Assessed,Dry/ Scaly -Color (Cecelia-wound Skin Appearance) No Abnormality, Assessed -Temperature (Cecelia-wound Skin No Abnormality Appearance) (Pt Warm) -Tenderness on Palpation (Cecelia-wound No Skin Appearance) -Ulcer Cleansing -Foul Odor after Cleansing No -Anesthetic Used 5% Lidocaine Gel 8. L heel -Combined with other wound No -Current Size (cm) - Length 0.3 -Current Size (cm) - Width 0.7 -Current Size (cm) - Depth 0.4 -Total Square Cm 0.21 -Date of Last Picture (Recall this 08/30/22 field) -Photo Taken Yes -Epithelialization None Present -Tunneling No -Undermining/Tunneling No -Undermining/Tunneling Starts (O'clock ) -Undermining/Tunneling Ends (O'clock) -Maximum Distance (cm) -Circular Undermining No -Change in Wound Grade/Stage -Exudate Amt Medium -Exudate Type Serosanguineous -Wound Margin Flat & Intact -Granulation Amt Small (1-33%) -Granulation Quality [place] -Slough/Fibrin Yes -Necrosis Amt Large (67-100%) -Necrotic Tissue Type Adherent Slough -Structure Exposed N/A -Texture (Cecelia-wound Skin Appearance) Assessed, Localized Edema ,Scarring -Moisture (Cecelia-wound Skin Appearance) Assessed,Dry/ Scaly -Color (Cecelia-wound Skin Appearance) No Abnormality, Assessed -Temperature (Cecelia-wound Skin No Abnormality Appearance) (Pt Warm) -Tenderness on Palpation (Cecelia-wound No Skin Appearance) -Ulcer Cleansing Not Cleansed -Foul Odor after Cleansing No -Anesthetic Used 5% Lidocaine Gel Lower Limb Edema Present Yes Left Calf (cm) 38.7 Left Ankle (cm) 21.3 WC - Nurse 2 - General Ulcer CM Notes Start: 08/09/22 09:32 Freq: Status: Active Protocol: Activity Type Activity Date Activity User E-sign Co-sign Detail Recorded Client Recorded Date Recorded By Document 08/09/22 09:38 STEPHANIE [id number] 08/09/22 09:41 STEPHANIE Document 08/16/22 09:40 STEPHANIE [id number] 08/16/22 09:48 Document 08/23/22 09:26 [id number] 08/23/22 09:33 Document 08/30/22 10:25 [id number] 08/30/22 10:34 08/09/22 08/16/22 08/23/22 09:38 09:40 09:26 Wound Center Nurse 2 9. R plantar -Time 09:39 09:42 09:26 -Correct Patient Yes Yes Yes -Correct Side, Site, Position Yes Yes Yes -Correct Procedure Yes Yes Yes -Procedure Performed Yes Yes Yes -Type of Procedure Debridement Debridement Debridement -Clinical Debridement Subcutaneous Subcutaneous Subcutaneous -Tissue Removed Subcutaneous Subcutaneous Subcutaneous -Post Debridement (cm) - Length 2 2.2 1.8 -Post Debridement (cm) - Width 2 2.0 1.8 -Post Debridement (cm) - Depth 0.2 0.4 0.6 -Total Square (Post) (cm) 4 4.40 3.24 -Area of Debridement (cm) - Length 2 2.2 1.8 -Area of Debridement (cm) - Width 2 2.0 1.8 -Total Square (Area) (cm) 4 4.40 3.24 -Tunneling No No No -Undermining/Tunneling No No No -Circular Undermining No No No -Wound/Ulcer Outcome Not Healed Not Healed Not Healed -Ulcer Cleansing Rinsed/ Rinsed/ Rinsed/ Irrigated with Irrigated with Irrigated with Saline Saline Saline -Foul Odor after Cleansing No No No -Bioengineered Tissue No No No -Bleeding Controlled with Pressure Pressure Pressure -Treatment Response Procedure Procedure Procedure Tolerated Well Tolerated Well Tolerated Well -Offloading Yes Yes Yes -Type of Offloading Surgical Shoe Surgical Shoe Surgical Shoe -Debridement - Subq, 1st 20sq cm Yes Yes Yes 8. L heel -Time 09:39 09:46 09:26 -Correct Patient Yes Yes Yes -Correct Side, Site, Position Yes Yes Yes -Correct Procedure Yes Yes Yes -Procedure Performed Yes Yes Yes -Type of Procedure Debridement Debridement Debridement -Clinical Debridement Subcutaneous Subcutaneous Subcutaneous -Tissue Removed Subcutaneous Subcutaneous Subcutaneous -Post Debridement (cm) - Length 0.7 0.6 0.5 -Post Debridement (cm) - Width 1.8 1.3 1.3 -Post Debridement (cm) - Depth 0.2 0.3 0.5 -Total Square (Post) (cm) 1.26 0.78 0.65 -Area of Debridement (cm) - Length 0.7 0.6 0.5 -Area of Debridement (cm) - Width 1.8 1.3 1.3 -Total Square (Area) (cm) 1.26 0.78 0.65 -Tunneling No No No -Undermining/Tunneling No No No -Circular Undermining No No No -Wound/Ulcer Outcome Not Healed Not Healed Not Healed -Ulcer Cleansing Rinsed/ Rinsed/ Rinsed/ Irrigated with Irrigated with Irrigated with Saline Saline Saline -Foul Odor after Cleansing No No No -Bioengineered Tissue No No No -Bleeding Controlled with Pressure Pressure Pressure -Treatment Response Procedure Procedure Procedure Tolerated Well Tolerated Well Tolerated Well -Offloading Yes Yes Yes -Type of Offloading Total Contact Total Contact Total Contact Cast (TCC) - Cast (TCC) - Cast (TCC) - Left ($) Left ($) Left ($) -Debridement - Subq, 20sq cm No No No Pain Scale: 0-10 Numeric Is Patient Pain Free? Yes Yes Yes 08/30/22 10:25 Wound Center Nurse 2 9. R plantar -Time 10:32 -Correct Patient Yes -Correct Side, Site, Position Yes -Correct Procedure Yes -Procedure Performed Yes -Type of Procedure Incision & Drainage -Clinical Debridement Subcutaneous -Tissue Removed Subcutaneous -Post Debridement (cm) - Length 2.0 -Post Debridement (cm) - Width 2.0 -Post Debridement (cm) - Depth 0.9 -Total Square (Post) (cm) 4.00 -Area of Debridement (cm) - Length 2.0 -Area of Debridement (cm) - Width 2.0 -Total Square (Area) (cm) 4.00 -Tunneling No -Undermining/Tunneling No -Circular Undermining No -Wound/Ulcer Outcome Not Healed -Ulcer Cleansing Rinsed/ Irrigated with Saline -Foul Odor after Cleansing No -Bioengineered Tissue No -Bleeding Controlled with Pressure -Treatment Response Procedure Tolerated Well -Offloading Yes -Type of Offloading Surgical Shoe -Debridement - Subq, 1st 20sq cm Yes 8. L heel -Time 10:33 -Correct Patient Yes -Correct Side, Site, Position Yes -Correct Procedure Yes -Procedure Performed Yes -Type of Procedure Debridement -Clinical Debridement Subcutaneous -Tissue Removed Subcutaneous -Post Debridement (cm) - Length 0.4 -Post Debridement (cm) - Width 0.8 -Post Debridement (cm) - Depth 0.3 -Total Square (Post) (cm) 0.32 -Area of Debridement (cm) - Length 0.4 -Area of Debridement (cm) - Width 0.8 -Total Square (Area) (cm) 0.32 -Tunneling No -Undermining/Tunneling No -Circular Undermining No -Wound/Ulcer Outcome Not Healed -Ulcer Cleansing Rinsed/ Irrigated with Saline -Foul Odor after Cleansing No -Bioengineered Tissue No -Bleeding Controlled with Pressure -Treatment Response Procedure Tolerated Well -Offloading -Type of Offloading Knee Walker -Debridement - Subq, 1st 20sq cm No Pain Scale: 0-10 Numeric Is Patient Pain Free? Yes WC - Nurse 3 - General Ulcer D/C NN Start: 08/09/22 09:32 Freq: Status: Active Protocol: Activity Type Activity Date Activity User E-sign Co-sign Detail Recorded Client Recorded Date Recorded By Document 08/09/22 11:25 RI [id number] 08/09/22 11:26 RI Document 08/16/22 09:53 [facility] [id number] 08/16/22 09:54 [facility] Document 08/23/22 09:36 [facility] [id number] 08/23/22 09:38 [facility] 08/09/22 08/16/22 08/23/22 11:25 09:53 09:36 Wound Care Nurse 3 9. R plantar -Ulcer Cleansing Rinsed/ Rinsed/ Rinsed/ Irrigated with Irrigated with Irrigated with Saline Saline Saline -Foul Odor after Cleansing No No No -Negative Pressure Wound Therapy N/A -Primary Dressing Applied Aquacel AG 4x4 Aquacel AG 2x2 Aquacel AG 2x2 -Other Dressing drsg per dl coal passer -Primary Dressing Covered/Secured with Dry Gauze & Dry Gauze & Dry Gauze & Roll Gauze, Roll Gauze, Roll Gauze, Secured with Secured with Secured with Tape Tape Tape -Other Covering DRSG PER DL ETHYLENE PLANT HELPER -Aquacel AG 4x4 1 -Aquacel AG 2x2 1 1 1 8. L heel -Ulcer Cleansing Rinsed/ Rinsed/ Rinsed/ Irrigated with Irrigated with Irrigated with Saline Saline Saline -Foul Odor after Cleansing No No No -Negative Pressure Wound Therapy N/A -Primary Dressing Applied Promogran Promogran Promogran Neida Matter Neida Matter Neida Matter -Other Dressing foam and size 3 TCC, FOAM amd foam, tcc TCC undercast per dl coal passer -Primary Dressing Covered/Secured with Dry Gauze & Dry Gauze, Roll Gauze, Secured with Secured with Tape Tape -Promogran Neida Matter 1 1 1 Treatment Response Procedure Procedure Tolerated Well Tolerated Well Pain Scale: 0-10 Numeric Is Patient Pain Free? Yes Yes Yes WC - Visit Discharge Discharge Condition Stable Stable Ambulatory Status Ambulatory Transportation Private Auto Private Auto Assessment/Plan Assessment/Plan (1) Ulcer of left foot with fat layer exposed: CODE(S): L97.522 - Non-pressure chronic ulcer of other part of left foot with fat layer exposed PLAN: Patient examined evaluated, all findings discussed patient in detail. 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 patient has been on suppressive abx for strep mitis/mrsa (augmentin/doxycycline). Will plan for outpatient 1st MPJ arthroplasty will refer to ID for abx management. The right plantar first metatarsal head and left plantar heel wounds were excisionally debrided down to including level of subcutaneous tissue of all nonviable tissue using combination of tissue nippers and a 3 mm dermal curette. Procedure was done after obtaining oral consent. No incident. Hemostasis obtained with light compression. No anesthesia due to neuropathy. Aquacel silver with DSD to wounds, will nonweightbear on left with knee scooter, ambulate in surgical shoe on right. Patient will continue protected weightbearing total contact cast to left lower extremity and nonweightbearing to right foot. She will do this with knee scooter and right side. Follow-up in 1 week. (2) Ulcer of right foot with fat layer exposed: CODE(S): L97.512 - Non-pressure chronic ulcer of other part of right foot with fat layer exposed
[2022-09-06 10:22] VITALS: BP 140/83; PULSE 104; RESP 16; TEMP 35.8; BMI 37.2
--- NOTE | 2022-09-06 10:54 | PN.PCM_ITS ---
History of Present Illness Date of Service: 09/06/22 Chief Complaint: Left heel ulcer right foot ulcers History of Wound: This pleasant 56-year-old female with significant past medical history of lupus, history of panic attack, depression, history of delayed healing, hyperlipidemia, irritable bowel syndrome, memory loss, restless leg syndrome, and obstructive sleep apnea is here for follow-up of left heel and right foot ulcers. She is ready for total contact cast application again today. Patient presents today with increased swelling redness to her right big toe. She offloads the right side with a surgical shoe felt an offloading pad. Patient has been treated with a total contact cast on the left lower extremity. She denies any constitutional symptoms at current and has no other complaints. Objective Data Objective Data Vital Signs: Vital Signs Temp Pulse Resp BP O2 Del Method 96.4 F L 104 H 16 140/83 H Room Air 09/06/22 10:22 09/06/22 10:22 09/06/22 10:22 09/06/22 10:22 09/06/22 10:22 Oxygen Delivery Method Room Air Weight: 111.13 kg Body Mass Index (BMI) 37.2 Physical Exam Narrative Patient alert oriented person place time. Vascular: Dorsalis pedis posterior tibial pulse palpable 2 out of 4. Absent digital hair growth some skin atrophic changes noted. Capillary fill time is less than 5 seconds to distal tuft of digits 1 through 5 bilaterally. There is no to be diffuse edema to right forefoot focusing at the level of the first metatarsal phalangeal joint. Focal increase in warmth and erythema to the site as well. Neurologic: Light touch and protective sensation diminished to bilateral feet. Dermatologic: Full-thickness wound noted to the plantar first metatarsal head with diffuse edema erythema and warmth to the site. No other signs of infection. Full-thickness wound noted to the plantar left heel with significant periwound hyperkeratosis. Wound base demonstrates healthy granular appearance with no other signs of infection.. Postdebridement measurements document nursing notes. Musculoskeletal: It is possible that there is some form of a calcaneal gait on the left lower extremity secondary to excessive lengthening of the Achilles tendon. Right lower extremity there is noted to be a hallux valgus deformity. No signs of DVT on clinical exam. Debridement Note Debridement Note Post-Debridement Measurements and Additional Note: Post-Debridement Measurements/Treatment WC - Nurse 1 - General Ulcer Assessment Start: 08/09/22 09:32 Freq: Status: Active Protocol: WC.LOWEXT Activity Type Activity Date Activity User E-sign Co-sign Detail Recorded Client Recorded Date Recorded By Document 08/09/22 11:22 AK [id number] 08/09/22 11:24 AK Document 08/16/22 09:07 DL [id number] 08/16/22 09:15 DL Document 08/23/22 09:09 BMF [id number] 08/23/22 09:19 BMF Document 08/30/22 09:49 DL [id number] 08/30/22 10:01 DL Document 09/06/22 10:22 [facility] [id number] 09/06/22 10:29 BMF 08/09/22 08/16/22 08/23/22 11:22 09:07 09:09 WC - Today's Visit Information Type of service Follow-up Visit Follow-up Visit (Physician/CRIMINOLOGY PROFESSOR (Physician/CRIMINOLOGY PROFESSOR ) ) Arrival Mode Ambulatory Ambulatory Arrival Mode (Other) Transfer Assistance None Patient Identification Verified (Name & Yes Yes ) Patient Requires Transmission-Based No No Precautions Height and Weight Body Mass Index (BMI) 37.2 37.2 37.2 BMI Classification Obese Obese Obese Vital Signs Temperature (97.8 F-99.1 F) 96.3 F L 97 F L 96.4 F L Temperature Source Temporal Temporal Temporal Pulse Rate (60-100) 103 H 113 H 110 H Pulse Location Monitor Monitor Monitor Respiratory Rate (12-18) 18 16 Respiratory rate source Observation Observation Oxygen Delivery Method Room Air Room Air Blood Pressure (90/60-120/80) 140/82 H 127/79 H 131/82 H Blood Pressure Mean (mm Hg) 101 95 98 Source Monitor Monitor Monitor Position Sitting Sitting Blood Pressure Location Left Arm Left Arm History Since Last Visit- (Skip if this is Patient's initial visit) Have you changed medications since your No No last visit? Any new allergies or adverse reactions No No Had a fall/change in ADL's that may No No increase risk of falls Signs or symptoms of abuse and/or No No neglect since last visit Have you been in the hospital since your No No last visit? Has dressing in place as prescribed Yes Yes Yes Has compression in place as prescribed Yes Yes N/A Has offloadiing in place as prescribed Yes Yes Yes Experienced any changes in pain level or No Yes No management Left Footwear Removable Cast Regular Shoe Total Contact Walker/Walking Cast Boot Right Footwear Surgical Shoe Regular Shoe Regular Shoe with pressure relief insole Pain Scale: 0-10 Numeric Is Patient Pain Free? Yes Yes Yes 08/30/22 09/06/22 09:49 10:22 - Today's Visit Information Type of service Follow-up Visit Follow-up Visit (Physician/CRIMINOLOGY PROFESSOR (Physician/CRIMINOLOGY PROFESSOR ) ) Arrival Mode Ambulatory, Ambulatory, Walker Walker Arrival Mode (Other) KNEE [employer]ER Transfer Assistance None None Patient Identification Verified (Name & Yes Yes ) Patient Requires Transmission-Based No No Precautions Height and Weight Body Mass Index (BMI) 37.2 37.2 BMI Classification Obese Obese Vital Signs Temperature (97.8 F-99.1 F) 97 F L 96.4 F L Temperature Source Temporal Temporal Pulse Rate (60-100) 123 H 104 H Pulse Location Monitor Monitor Respiratory Rate (12-18) 18 16 Respiratory rate source Observation Observation Oxygen Delivery Method Room Air Blood Pressure (90/60-120/80) 141/86 H 140/83 H Blood Pressure Mean (mm Hg) 104 102 Source Monitor Monitor Position Sitting Blood Pressure Location Right Arm History Since Last Visit- (Skip if this is Patient's initial visit) Have you changed medications since your No No last visit? Any new allergies or adverse reactions No No Had a fall/change in ADL's that may No No increase risk of falls Signs or symptoms of abuse and/or No No neglect since last visit Have you been in the hospital since your No No last visit? Has dressing in place as prescribed Yes No Has compression in place as prescribed Yes No Has offloadiing in place as prescribed N/A Yes Experienced any changes in pain level or No No management Left Footwear Total Contact Surgical Shoe Cast with pressure relief insole Right Footwear Surgical Shoe with pressure relief insole Pain Scale: 0-10 Numeric Is Patient Pain Free? Yes Yes - Nurse 1 - General Ulcer Measurement Start: 08/09/22 09:32 Freq: Status: Active Protocol: Activity Type Activity Date Activity User E-sign Co-sign Detail Recorded Client Recorded Date Recorded By Document 08/09/22 11:22 ROOPA [id number] 08/09/22 11:24 AK Document 08/16/22 09:07 DL [id number] 08/16/22 09:15 DL Document 08/23/22 09:09 [facility] [id number] 08/23/22 09:19 [facility] Document 08/30/22 09:49 DL [id number] 08/30/22 10:01 DL Document 09/06/22 10:22 [facility] [id number] 09/06/22 10:29 [facility] 08/09/22 08/16/22 08/23/22 11:22 09:07 09:09 Wound Center Nurse 1 9. R plantar -Combined with other wound No No -Current Size (cm) - Length 2 2.1 1.8 -Current Size (cm) - Width 2 2.0 1.7 -Current Size (cm) - Depth 0.2 0.4 0.7 -Total Square Cm 4 4.20 3.06 -Date of Last Picture (Recall this 08/09/22 08/23/22 field) -Photo Taken Yes Yes -Epithelialization None Present -Tunneling No No -Undermining/Tunneling No No -Circular Undermining No No -Change in Wound Grade/Stage No -Exudate Amt Medium Small Medium -Exudate Type Serosanguineous Serosanguineous Serosanguineous -Wound Margin Distinct, Well Defined, Distinct, Outline Not Attached Outline Attached Attached -Granulation Amt Large (67-100%) Large (67-100%) Large (67-100%) -Granulation Quality N/A,[place] Pale,[place] Red -Slough/Fibrin No No -Necrosis Amt None Present (0 Small (1-33%) None Present (0 %) %) -Necrotic Tissue Type Adherent Slough -Structure Exposed N/A -Texture (Cecelia-wound Skin Appearance) No Abnormality, Assessed Assessed,Callus Assessed -Moisture (Cecelia-wound Skin Appearance) No Abnormality, Assessed Assessed,Dry/ Assessed Scaly -Color (Cecelia-wound Skin Appearance) No Abnormality, Assessed Assessed Assessed -Temperature (Cecelia-wound Skin No Abnormality No Abnormality No Abnormality Appearance) (Pt Warm) (Pt Warm) (Pt Warm) -Tenderness on Palpation (Cecelia-wound No No No Skin Appearance) -Ulcer Cleansing Soap and Water Soap and Water Soap and Water -Foul Odor after Cleansing No No No -Anesthetic Used 5% Lidocaine 4% Lidocaine 5% Lidocaine Gel Solution Gel 8. L heel -Combined with other wound No No -Current Size (cm) - Length 0.5 0.5 0.3 -Current Size (cm) - Width 1 1.3 1 -Current Size (cm) - Depth 0.3 0.3 0.6 -Total Square Cm 0.5 0.65 0.3 -Date of Last Picture (Recall this 08/09/22 08/23/22 field) -Photo Taken Yes Yes -Epithelialization None Present -Tunneling No No -Undermining/Tunneling No Yes Yes -Undermining/Tunneling Starts (O'clock 1 1 ) -Undermining/Tunneling Ends (O'clock) 2 6 -Maximum Distance (cm) 0.2 0.4 -Circular Undermining No -Change in Wound Grade/Stage No -Exudate Amt Small Small Medium -Exudate Type Serosanguineous Serosanguineous Serosanguineous -Wound Margin Distinct, Flat & Intact Distinct, Outline Outline Attached Attached -Granulation Amt Medium (34-66%) Large (67-100%) Large (67-100%) -Granulation Quality [place] Pale,[place] Red -Slough/Fibrin Yes No -Necrosis Amt Small (1-33%) Small (1-33%) None Present (0 %) -Necrotic Tissue Type Adherent Slough Adherent Slough -Structure Exposed N/A -Texture (Cecelia-wound Skin Appearance) No Abnormality, Assessed Assessed, Assessed Scarring -Moisture (Cecelia-wound Skin Appearance) No Abnormality, Assessed Assessed,Dry/ Assessed Scaly -Color (Cecelia-wound Skin Appearance) No Abnormality, Assessed Assessed Assessed -Temperature (Cecelia-wound Skin No Abnormality No Abnormality No Abnormality Appearance) (Pt Warm) (Pt Warm) (Pt Warm) -Tenderness on Palpation (Cecelia-wound No No No Skin Appearance) -Ulcer Cleansing Soap and Water Soap and Water Soap and Water -Foul Odor after Cleansing No No No -Anesthetic Used 5% Lidocaine 4% Lidocaine 5% Lidocaine Gel Solution Gel Lower Limb Edema Present No NA Left Calf (cm) Left Ankle (cm) 08/30/22 09/06/22 09:49 10:22 Wound Center Nurse 1 9. R plantar -Combined with other wound No No -Current Size (cm) - Length 1.9 2.2 -Current Size (cm) - Width 1.9 2 -Current Size (cm) - Depth 0.9 0.5 -Total Square Cm 3.61 4.4 -Date of Last Picture (Recall this 09/06/22 field) -Photo Taken Yes Yes -Epithelialization Small 1-33% None Present -Tunneling No -Undermining/Tunneling No No -Circular Undermining No No -Change in Wound Grade/Stage -Exudate Amt Medium Medium -Exudate Type Serosanguineous Serosanguineous -Wound Margin Distinct, Thickened Outline Attached -Granulation Amt Large (67-100%) Large (67-100%) -Granulation Quality [place],Red Red -Slough/Fibrin Yes Yes -Necrosis Amt Small (1-33%) Small (1-33%) -Necrotic Tissue Type Adherent Slough Adherent Slough -Structure Exposed N/A -Texture (Cecelia-wound Skin Appearance) Assessed, Assessed,Callus Localized Edema ,Localized ,Scarring Edema,Scarring -Moisture (Cecelia-wound Skin Appearance) Assessed,Dry/ Assessed,Dry/ Scaly Scaly -Color (Cecelia-wound Skin Appearance) No Abnormality, Assessed, Assessed Erythema -Temperature (Cecelia-wound Skin No Abnormality No Abnormality Appearance) (Pt Warm) (Pt Warm) -Tenderness on Palpation (Cecelia-wound No No Skin Appearance) -Ulcer Cleansing Rinsed/ Irrigated with Saline -Foul Odor after Cleansing No No -Anesthetic Used 5% Lidocaine 5% Lidocaine Gel Gel 8. L heel -Combined with other wound No No -Current Size (cm) - Length 0.3 0.9 -Current Size (cm) - Width 0.7 1.9 -Current Size (cm) - Depth 0.4 0.2 -Total Square Cm 0.21 1.71 -Date of Last Picture (Recall this 08/30/22 09/06/22 field) -Photo Taken Yes Yes -Epithelialization None Present None Present -Tunneling No No -Undermining/Tunneling No No -Undermining/Tunneling Starts (O'clock ) -Undermining/Tunneling Ends (O'clock) -Maximum Distance (cm) -Circular Undermining No No -Change in Wound Grade/Stage -Exudate Amt Medium Small -Exudate Type Serosanguineous Serosanguineous -Wound Margin Flat & Intact Distinct, Outline Attached -Granulation Amt Small (1-33%) Small (1-33%) -Granulation Quality [place] Red -Slough/Fibrin Yes Yes -Necrosis Amt Large (67-100%) Large (67-100%) -Necrotic Tissue Type Adherent Slough Adherent Slough -Structure Exposed N/A -Texture (Cecelia-wound Skin Appearance) Assessed, Assessed,Callus Localized Edema ,Scarring ,Scarring -Moisture (Cecelia-wound Skin Appearance) Assessed,Dry/ Assessed,Dry/ Scaly Scaly -Color (Cecelia-wound Skin Appearance) No Abnormality, Assessed Assessed -Temperature (Cecelia-wound Skin No Abnormality No Abnormality Appearance) (Pt Warm) (Pt Warm) -Tenderness on Palpation (Cecelia-wound No No Skin Appearance) -Ulcer Cleansing Not Cleansed Rinsed/ Irrigated with Saline -Foul Odor after Cleansing No No -Anesthetic Used 5% Lidocaine 5% Lidocaine Gel Gel Lower Limb Edema Present Yes Left Calf (cm) 38.7 Left Ankle (cm) 21.3 WC - Nurse 2 - General Ulcer CM Notes Start: 08/09/22 09:32 Freq: Status: Active Protocol: Activity Type Activity Date Activity User E-sign Co-sign Detail Recorded Client Recorded Date Recorded By Document 08/09/22 09:38 [id number] 08/09/22 09:41 Document 08/16/22 09:40 [id number] 08/16/22 09:48 Document 08/23/22 09:26 [id number] 08/23/22 09:33 Document 08/30/22 10:25 [id number] 08/30/22 10:34 Document 09/06/22 10:42 [id number] 09/06/22 10:48 08/09/22 08/16/22 08/23/22 09:38 09:40 09:26 Wound Center Nurse 2 9. R plantar -Time 09:39 09:42 09:26 -Correct Patient Yes Yes Yes -Correct Side, Site, Position Yes Yes Yes -Correct Procedure Yes Yes Yes -Procedure Performed Yes Yes Yes -Type of Procedure Debridement Debridement Debridement -Clinical Debridement Subcutaneous Subcutaneous Subcutaneous -Tissue Removed Subcutaneous Subcutaneous Subcutaneous -Post Debridement (cm) - Length 2 2.2 1.8 -Post Debridement (cm) - Width 2 2.0 1.8 -Post Debridement (cm) - Depth 0.2 0.4 0.6 -Total Square (Post) (cm) 4 4.40 3.24 -Area of Debridement (cm) - Length 2 2.2 1.8 -Area of Debridement (cm) - Width 2 2.0 1.8 -Total Square (Area) (cm) 4 4.40 3.24 -Tunneling No No No -Undermining/Tunneling No No No -Circular Undermining No No No -Wound/Ulcer Outcome Not Healed Not Healed Not Healed -Ulcer Cleansing Rinsed/ Rinsed/ Rinsed/ Irrigated with Irrigated with Irrigated with Saline Saline Saline -Foul Odor after Cleansing No No No -Bioengineered Tissue No No No -Bleeding Controlled with Pressure Pressure Pressure -Treatment Response Procedure Procedure Procedure Tolerated Well Tolerated Well Tolerated Well -Offloading Yes Yes Yes -Type of Offloading Surgical Shoe Surgical Shoe Surgical Shoe -Debridement - Subq, 1st 20sq cm Yes Yes Yes 8. L heel -Time 09:39 09:46 09:26 -Correct Patient Yes Yes Yes -Correct Side, Site, Position Yes Yes Yes -Correct Procedure Yes Yes Yes -Procedure Performed Yes Yes Yes -Type of Procedure Debridement Debridement Debridement -Clinical Debridement Subcutaneous Subcutaneous Subcutaneous -Tissue Removed Subcutaneous Subcutaneous Subcutaneous -Post Debridement (cm) - Length 0.7 0.6 0.5 -Post Debridement (cm) - Width 1.8 1.3 1.3 -Post Debridement (cm) - Depth 0.2 0.3 0.5 -Total Square (Post) (cm) 1.26 0.78 0.65 -Area of Debridement (cm) - Length 0.7 0.6 0.5 -Area of Debridement (cm) - Width 1.8 1.3 1.3 -Total Square (Area) (cm) 1.26 0.78 0.65 -Tunneling No No No -Undermining/Tunneling No No No -Circular Undermining No No No -Wound/Ulcer Outcome Not Healed Not Healed Not Healed -Ulcer Cleansing Rinsed/ Rinsed/ Rinsed/ Irrigated with Irrigated with Irrigated with Saline Saline Saline -Foul Odor after Cleansing No No No -Bioengineered Tissue No No No -Bleeding Controlled with Pressure Pressure Pressure -Treatment Response Procedure Procedure Procedure Tolerated Well Tolerated Well Tolerated Well -Offloading Yes Yes Yes -Type of Offloading Total Contact Total Contact Total Contact Cast (TCC) - Cast (TCC) - Cast (TCC) - Left ($) Left ($) Left ($) -Debridement - Subq, 1st 20sq cm No No No Pain Scale: 0-10 Numeric Is Patient Pain Free? Yes Yes Yes 08/30/22 09/06/22 10:25 10:42 Wound Center Nurse 2 9. R plantar -Time 10:32 10:44 -Correct Patient Yes Yes -Correct Side, Site, Position Yes Yes -Correct Procedure Yes Yes -Procedure Performed Yes Yes -Type of Procedure Incision & Debridement Drainage -Clinical Debridement Subcutaneous Subcutaneous -Tissue Removed Subcutaneous Subcutaneous -Post Debridement (cm) - Length 2.0 2.0 -Post Debridement (cm) - Width 2.0 1.6 -Post Debridement (cm) - Depth 0.9 0.5 -Total Square (Post) (cm) 4.00 3.20 -Area of Debridement (cm) - Length 2.0 2.0 -Area of Debridement (cm) - Width 2.0 1.6 -Total Square (Area) (cm) 4.00 3.20 -Tunneling No No -Undermining/Tunneling No No -Circular Undermining No No -Wound/Ulcer Outcome Not Healed Not Healed -Ulcer Cleansing Rinsed/ Rinsed/ Irrigated with Irrigated with Saline Saline -Foul Odor after Cleansing No No -Bioengineered Tissue No No -Bleeding Controlled with Pressure Pressure -Treatment Response Procedure Procedure Tolerated Well Tolerated Well -Offloading Yes Yes -Type of Offloading Surgical Shoe Knee Walker -Debridement - Subq, 1st 20sq cm Yes Yes 8. L heel -Time 10:33 10:44 -Correct Patient Yes Yes -Correct Side, Site, Position Yes Yes -Correct Procedure Yes Yes -Procedure Performed Yes Yes -Type of Procedure Debridement Debridement -Clinical Debridement Subcutaneous Subcutaneous -Tissue Removed Subcutaneous Subcutaneous -Post Debridement (cm) - Length 0.4 0.5 -Post Debridement (cm) - Width 0.8 1 -Post Debridement (cm) - Depth 0.3 0.2 -Total Square (Post) (cm) 0.32 0.5 -Area of Debridement (cm) - Length 0.4 0.5 -Area of Debridement (cm) - Width 0.8 1.0 -Total Square (Area) (cm) 0.32 0.50 -Tunneling No No -Undermining/Tunneling No No -Circular Undermining No No -Wound/Ulcer Outcome Not Healed Not Healed -Ulcer Cleansing Rinsed/ Rinsed/ Irrigated with Irrigated with Saline Saline -Foul Odor after Cleansing No No -Bioengineered Tissue No No -Bleeding Controlled with Pressure Pressure -Treatment Response Procedure Procedure Tolerated Well Tolerated Well -Offloading Yes -Type of Offloading Knee Walker Surgical Shoe -Debridement - Subq, 1st 20sq cm No No Pain Scale: 0-10 Numeric Is Patient Pain Free? Yes Yes WC - Nurse 3 - General Ulcer D/C NN Start: 08/09/22 09:32 Freq: Status: Active Protocol: Activity Type Activity Date Activity User E-sign Co-sign Detail Recorded Client Recorded Date Recorded By Document 08/09/22 11:25 AK [id number] 08/09/22 11:26 AK Document 08/16/22 09:53 BMF [id number] 08/16/22 09:54 BMF Document 08/23/22 09:36 BMF [id number] 08/23/22 09:38 BMF Document 08/30/22 10:40 MW [id number] 08/30/22 10:41 MW Document 09/06/22 10:52 MW [id number] 09/06/22 10:53 MW 08/09/22 08/16/22 08/23/22 11:25 09:53 09:36 Wound Care Nurse 3 9. R plantar -Ulcer Cleansing Rinsed/ Rinsed/ Rinsed/ Irrigated with Irrigated with Irrigated with Saline Saline Saline -Foul Odor after Cleansing No No No -Negative Pressure Wound Therapy N/A -Primary Dressing Applied Aquacel AG 4x4 Aquacel AG 2x2 Aquacel AG 2x2 -Other Dressing drsg per dl aerotriangulation specialist -Primary Dressing Covered/Secured with Dry Gauze & Dry Gauze & Dry Gauze & Roll Gauze, Roll Gauze, Roll Gauze, Secured with Secured with Secured with Tape Tape Tape -Other Covering DRSG PER DL IT HELP DESK TECHNICIAN -Aquacel AG 4x4 1 -Aquacel AG 2x2 1 1 1 -Promogran Neida Matter 8. L heel -Ulcer Cleansing Rinsed/ Rinsed/ Rinsed/ Irrigated with Irrigated with Irrigated with Saline Saline Saline -Foul Odor after Cleansing No No No -Negative Pressure Wound Therapy N/A -Primary Dressing Applied Promogran Promogran Promogran Neida Matter Neida Matter Neida Matter -Other Dressing foam and size 3 TCC, FOAM amd foam, tcc TCC undercast per dl aerotriangulation specialist -Primary Dressing Covered/Secured with Dry Gauze & Dry Gauze, Roll Gauze, Secured with Secured with Tape Tape -Promogran Neida Matter 1 1 1 Treatment Response Procedure Procedure Tolerated Well Tolerated Well Pain Scale: 0-10 Numeric Is Patient Pain Free? Yes Yes Yes Teaching: Wound Center Dressing Your Wound -Person Taught -Teaching Method -Response to teaching WC - Visit Discharge Discharge Condition Stable Stable Ambulatory Status Ambulatory Transportation Private Auto Private Auto Accompanied by Medication Reconcilliation completed & provided to patient/care provider Clinical Summary of Care Provided Notes: 08/30/22 09/06/22 10:40 10:52 Wound Care Nurse 3 9. R plantar -Ulcer Cleansing Rinsed/ Rinsed/ Irrigated with Irrigated with Saline Saline -Foul Odor after Cleansing No No -Negative Pressure Wound Therapy N/A N/A -Primary Dressing Applied Promogran Promogran Neida Matter Neida Matter -Other Dressing -Primary Dressing Covered/Secured with Dry Gauze & Dry Gauze & Roll Gauze, Roll Gauze, Secured with Secured with Tape Tape -Other Covering -Aquacel AG 4x4 -Aquacel AG 2x2 -Promogran Neida Matter 1 1 8. L heel -Ulcer Cleansing Rinsed/ Rinsed/ Irrigated with Irrigated with Saline Saline -Foul Odor after Cleansing No No -Negative Pressure Wound Therapy N/A N/A -Primary Dressing Applied -Other Dressing neida neida -Primary Dressing Covered/Secured with Dry Gauze & Dry Gauze & Roll Gauze, Roll Gauze, Secured with Secured with Tape Tape -Promogran Neida Matter Treatment Response Procedure Procedure Tolerated Well Tolerated Well Pain Scale: 0-10 Numeric Is Patient Pain Free? Yes Yes Teaching: Wound Center Dressing Your Wound -Person Taught Patient Patient -Teaching Method Discussion, Discussion, Demonstration Demonstration -Response to teaching Verbalize Verbalize understanding understanding WC - Visit Discharge Discharge Condition Stable Stable Ambulatory Status Ambulatory, Ambulatory, Walker Walker Transportation Private Auto Private Auto Accompanied by self self Medication Reconcilliation completed & No No provided to patient/care provider Clinical Summary of Care Provided Yes Yes Notes: knee walker knee walker Assessment/Plan Assessment/Plan (1) Ulcer of left foot with fat layer exposed: CODE(S): L97.522 - 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 patient has been on suppressive abx for strep mitis/mrsa (augmentin/doxycycline). Will plan for outpatient 1st MPJ arthroplasty will refer to ID for abx management. The right plantar first metatarsal head and left plantar heel wounds were excisionally debrided down to including level of subcutaneous tissue of all nonviable tissue using combination of tissue nippers and a 3 mm dermal curette. Procedure was done after obtaining oral consent. No incident. Hemostasis obtained with light compression. No anesthesia due to neuropathy. Aquacel silver with DSD to wounds, will nonweightbear on left with knee scooter, ambulate in surgical shoe on right. Patient will continue protected weightbearing total contact cast to left lower extremity and nonweightbearing to right foot. She will do this with knee scooter and right side. Follow-up in 1 week. (2) Ulcer of right foot with fat layer exposed: CODE(S): L97.512 - Non-pressure chronic ulcer of other part of right foot with fat layer exposed
[2022-09-06 11:45] LABS: Erythrocyte Sedimentation Rate 17 mm/hr (0-30)
[2022-09-06 11:47] LABS: Hematocrit 38.1 % (37-47); Mean Corp Hgb Conc 31.5 g/dL (32-36); Mean Corpuscular Hgb 27.3 pg (27.0-32.0); Mean Corpuscular Volume 86.6 fL (81-99); Mean Platelet Vol. 9.1 fl (6.2-12.0); Platelet Count 325 K/mm3 (150-450); RBC Distribution Width CV 13.4 % (11.6-14.6); RBC Distribution Width SD 42.5 fl (35.1-43.9); White Blood Count 9.2 K/mm3 (4.4-11.0)
[2022-09-06 12:07] LABS: Anion Gap 6 (5-15); BUN 11 mg/dL (7-18); BUN/Creat Ratio 14.4 RATIO (10-20); CRP 8.03 mg/L (0.0-3.0); Calcium,Total 9.1 mg/dL (8.5-10.1); Chloride 101 mmol/L (98-107); Creatinine, Serum 0.76 mg/dL (0.55-1.02); EST Glomerular Filtration Rate 83 mL/min (>60); Est Glom Filt Rate - Afr Amer 101 mL/min (>60); Estimated Creatinine Clearance 82.39 ml/min; Glucose 94 mg/dL (74-106); Potassium 4.3 mmol/L (3.5-5.1); Sodium Level 138 mmol/L (136-145)
== END 2022-09-07 23:59 | disposition home or self-care (01) ==
LOC: WC 10:15
PROVIDERS: PCP Family Medicine; Referring Provider Podiatrist; Visit Provider Podiatrist
DX: L97.422 Non-pressure chronic ulcer of left heel and midfoot with fat layer exposed (principal); L97.512 Non-pressure chronic ulcer of other part of right foot with fat layer exposed; E78.5 Hyperlipidemia, unspecified; G25.81 Restless legs syndrome; G47.33 Obstructive sleep apnea (adult) (pediatric); Z79.899 Other long term (current) drug therapy
CPT/HCPCS: 11042; 29445; 36415; 80048; 85027; 85652; 86140

== ENCOUNTER 2022-09-20 11:00 | Outpatient (RCR) | payer MEDICARE, BC, SELFPAY ==
[2022-09-08 00:27] VITALS: BP 140/83; PULSE 104; RESP 16; TEMP 35.8; BMI 37.2
[2022-09-13 10:32] VITALS: BP 144/82; PULSE 105; RESP 16; TEMP 35.6; BMI 37.2
--- NOTE | 2022-09-13 10:58 | PCM.WC.PN ---
History of Present Illness Date of Service: 09/13/22 Chief Complaint: Left heel ulcer right foot ulcers History of Wound: This pleasant 56-year-old female with significant past medical history of lupus, history of panic attack, depression, history of delayed healing, hyperlipidemia, irritable bowel syndrome, memory loss, restless leg syndrome, and obstructive sleep apnea is here for follow-up of left heel and right foot ulcers. She is ready for total contact cast application again today. Patient presents today with increased swelling redness to her right big toe. She offloads the right side with a surgical shoe felt an offloading pad. Patient has been treated with a total contact cast on the left lower extremity. She denies any constitutional symptoms at current and has no other complaints. Objective Data Objective Data Vital Signs: Vital Signs Temp Pulse Resp BP O2 Del Method 96.1 F L 105 H 16 144/82 H Room Air 09/13/22 10:32 09/13/22 10:32 09/13/22 10:32 09/13/22 10:32 09/13/22 10:32 Oxygen Delivery Method Room Air Weight: 111.13 kg Body Mass Index (BMI) 37.2 Physical Exam Narrative Patient alert oriented to person, place and time. Vascular: Dorsalis pedis posterior tibial pulse palpable 2 out of 4. Absent digital hair growth some skin atrophic changes noted. Capillary fill time is less than 5 seconds to distal tuft of digits 1 through 5 bilaterally. There is no to be diffuse edema to right forefoot focusing at the level of the first metatarsal phalangeal joint. Focal increase in warmth and erythema to the site as well. Neurologic: Light touch and protective sensation diminished to bilateral feet. Dermatologic: Full-thickness wound noted to the plantar first metatarsal head with diffuse edema erythema and warmth to the site. No other signs of infection. Full-thickness wound noted to the plantar left heel with significant periwound hyperkeratosis. Wound base demonstrates healthy granular appearance with no other signs of infection.. Postdebridement measurements document nursing notes. Musculoskeletal: It is possible that there is some form of a calcaneal gait on the left lower extremity secondary to excessive lengthening of the Achilles tendon. Right lower extremity there is noted to be a hallux valgus deformity. No signs of DVT on clinical exam. Debridement Note Debridement Note Post-Debridement Measurements and Additional Note: Post-Debridement Measurements/Treatment WC - Nurse 1 - General Ulcer Assessment Start: 09/13/22 10:29 Freq: Status: Active Protocol: OLGA Activity Type Activity Date Activity User E-sign Co-sign Detail Recorded Client Recorded Date Recorded By Document 09/13/22 10:32 [facility] [id number] 09/13/22 10:42 [facility] 09/13/22 10:32 WC - Today's Visit Information Type of service Follow-up Visit (Physician/SWITCH INSPECTOR ) Arrival Mode Ambulatory, Walker Arrival Mode (Other) knee walker Patient Identification Verified (Name & Yes ) Patient Requires Transmission-Based No Precautions Height and Weight Body Mass Index (BMI) 37.2 BMI Classification Obese Vital Signs Temperature (97.8 F-99.1 F) 96.1 F L Temperature Source Temporal Pulse Rate (60-100) 105 H Pulse Location Monitor Respiratory Rate (12-18) 16 Respiratory rate source Observation Oxygen Delivery Method Room Air Blood Pressure (90/60-120/80) 144/82 H Blood Pressure Mean (mm Hg) 102 Source Monitor Position Sitting Blood Pressure Location Right Arm History Since Last Visit- (Skip if this is Patient's initial visit) Have you changed medications since your No last visit? Any new allergies or adverse reactions No Had a fall/change in ADL's that may No increase risk of falls Signs or symptoms of abuse and/or No neglect since last visit Have you been in the hospital since your No last visit? Has dressing in place as prescribed Yes Has compression in place as prescribed N/A Has offloadiing in place as prescribed Yes Experienced any changes in pain level or No management Left Footwear Surgical Shoe with pressure relief insole Right Footwear Surgical Shoe with pressure relief insole Pain Scale: 0-10 Numeric Is Patient Pain Free? Yes - Nurse 1 - General Ulcer Measurement Start: 09/13/22 10:29 Freq: Status: Active Protocol: Activity Type Activity Date Activity User E-sign Co-sign Detail Recorded Client Recorded Date Recorded By Document 09/13/22 10:32 [facility] [id number] 09/13/22 10:42 [facility] 09/13/22 10:32 Wound Center Nurse 1 9. R plantar -Combined with other wound No -Current Size (cm) - Length 2.1 -Current Size (cm) - Width 1.4 -Current Size (cm) - Depth 0.5 -Total Square Cm 2.94 -Date of Last Picture (Recall this 09/13/22 field) -Photo Taken Yes -Epithelialization None Present -Tunneling No -Undermining/Tunneling Yes -Undermining/Tunneling Starts (O'clock 11 ) -Undermining/Tunneling Ends (O'clock) 3 -Maximum Distance (cm) 0.2 -Circular Undermining No -Exudate Amt Medium -Exudate Type Serosanguineous -Wound Margin Thickened -Granulation Amt Large (67-100%) -Granulation Quality Pale,Red -Slough/Fibrin No -Necrosis Amt None Present (0 %) -Texture (Cecelia-wound Skin Appearance) Assessed,Callus ,Localized Edema,Scarring -Moisture (Cecelia-wound Skin Appearance) Assessed -Color (Cecelia-wound Skin Appearance) Assessed, Erythema -Temperature (Cecelia-wound Skin No Abnormality Appearance) (Pt Warm) -Tenderness on Palpation (Cecelia-wound No Skin Appearance) -Ulcer Cleansing Soap and Water -Foul Odor after Cleansing No -Anesthetic Used 5% Lidocaine Gel 8. L heel -Combined with other wound No -Current Size (cm) - Length 0.4 -Current Size (cm) - Width 0.4 -Current Size (cm) - Depth 0.3 -Total Square Cm 0.16 -Date of Last Picture (Recall this 09/13/22 field) -Photo Taken Yes -Epithelialization None Present -Tunneling No -Undermining/Tunneling No -Circular Undermining No -Exudate Amt Small -Exudate Type Serosanguineous -Wound Margin Distinct, Outline Attached -Granulation Amt Large (67-100%) -Granulation Quality Red -Slough/Fibrin Yes -Necrosis Amt Small (1-33%) -Necrotic Tissue Type Adherent Slough -Texture (Cecelia-wound Skin Appearance) Assessed,Callus ,Scarring -Moisture (Cecelia-wound Skin Appearance) Dry/Scaly -Color (Cecelia-wound Skin Appearance) Assessed -Temperature (Cecelia-wound Skin No Abnormality Appearance) (Pt Warm) -Tenderness on Palpation (Cecelia-wound No Skin Appearance) -Ulcer Cleansing Soap and Water -Foul Odor after Cleansing No -Anesthetic Used 5% Lidocaine Gel WC - Nurse 2 - General Ulcer CM Notes Start: 09/13/22 10:29 Freq: Status: Active Protocol: Activity Type Activity Date Activity User E-sign Co-sign Detail Recorded Client Recorded Date Recorded By Document 09/13/22 10:51 STEPHANIE [id number] 09/13/22 10:55 STEPHANIE 09/13/22 10:51 Wound Center Nurse 2 9. R plantar -Time 10:51 -Correct Patient No -Correct Side, Site, Position No -Correct Procedure No -Procedure Performed No -Post Debridement (cm) - Length 2.2 -Post Debridement (cm) - Width 1.4 -Post Debridement (cm) - Depth 0.3 -Total Square (Post) (cm) 3.08 -Area of Debridement (cm) - Length 2.2 -Area of Debridement (cm) - Width 1.4 -Total Square (Area) (cm) 3.08 -Tunneling No -Undermining/Tunneling No -Circular Undermining No -Wound/Ulcer Outcome Not Healed -Bleeding Controlled with Pressure -Treatment Response Procedure Tolerated Well -Offloading Yes -Type of Offloading Surgical Shoe -Debridement - Subq, 1st 20sq cm No 8. L heel -Time 10:52 -Correct Patient Yes -Correct Side, Site, Position Yes -Correct Procedure Yes -Procedure Performed Yes -Type of Procedure Debridement -Clinical Debridement Subcutaneous -Tissue Removed Subcutaneous -Post Debridement (cm) - Length 0.5 -Post Debridement (cm) - Width 0.5 -Post Debridement (cm) - Depth 0.2 -Total Square (Post) (cm) 0.25 -Area of Debridement (cm) - Length 0.5 -Area of Debridement (cm) - Width 0.5 -Total Square (Area) (cm) 0.25 -Tunneling No -Undermining/Tunneling No -Circular Undermining No -Wound/Ulcer Outcome Not Healed -Ulcer Cleansing Rinsed/ Irrigated with Saline -Foul Odor after Cleansing No -Bioengineered Tissue No -Bleeding Controlled with Pressure -Treatment Response Procedure Tolerated Well -Offloading Yes -Type of Offloading Knee Walker -Debridement - Subq, 1st 20sq cm Yes Pain Scale: 0-10 Numeric Is Patient Pain Free? Yes Assessment/Plan Assessment/Plan (1) Ulcer of left foot with fat layer exposed: CODE(S): L97.522 - Non-pressure chronic ulcer of other part of left foot with fat layer exposed PLAN: Patient examined evaluated, all findings discussed patient in detail. 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 patient has been on suppressive abx for strep mitis/mrsa (augmentin/doxycycline). Will plan for outpatient 1st MPJ arthroplasty will refer to ID for abx management. The left plantar heel wound was excisionally debrided down to including level of subcutaneous tissue of all nonviable tissue using combination of tissue nippers and a 3 mm dermal curette. Procedure was done after obtaining oral consent. No incident. Hemostasis obtained with light compression. No anesthesia due to neuropathy. Aquacel silver with DSD to wounds, will nonweightbear on left with knee scooter, ambulate in surgical shoe on right. Patient will continue protected weightbearing total contact cast to left lower extremity and nonweightbearing to right foot. She will do this with knee scooter and right side. Follow-up in 1 week. (2) Ulcer of right foot with fat layer exposed: CODE(S): L97.512 - Non-pressure chronic ulcer of other part of right foot with fat layer exposed
[2022-09-20 11:15] VITALS: BP 131/78; PULSE 105; RESP 16; BMI 37.2
--- NOTE | 2022-09-20 11:44 | PCM.WC.PN ---
History of Present Illness Date of Service: 09/20/22 Chief Complaint: Left heel ulcer right foot ulcers History of Wound: This pleasant 56-year-old female with significant past medical history of lupus, history of panic attack, depression, history of delayed healing, hyperlipidemia, irritable bowel syndrome, memory loss, restless leg syndrome, and obstructive sleep apnea is here for follow-up of left heel and right foot ulcers. She is ready for total contact cast application again today. Patient presents today with increased swelling redness to her right big toe. She offloads the right side with a surgical shoe felt an offloading pad. Patient has been treated with a total contact cast on the left lower extremity. She denies any constitutional symptoms at current and has no other complaints. Objective Data Objective Data Vital Signs: Vital Signs Temp Pulse Resp BP O2 Del Method 96.1 F L 105 H 16 131/78 H Room Air 09/13/22 10:32 09/20/22 11:15 09/20/22 11:15 09/20/22 11:15 09/20/22 11:15 Oxygen Delivery Method Room Air Weight: 111.13 kg Body Mass Index (BMI) 37.2 Physical Exam Narrative Patient alert oriented to person, place and time. Vascular: Dorsalis pedis posterior tibial pulse palpable 2 out of 4. Absent digital hair growth some skin atrophic changes noted. Capillary fill time is less than 5 seconds to distal tuft of digits 1 through 5 bilaterally. There is no to be diffuse edema to right forefoot focusing at the level of the first metatarsal phalangeal joint. Focal increase in warmth and erythema to the site as well. Neurologic: Light touch and protective sensation diminished to bilateral feet. Dermatologic: Full-thickness wound noted to the plantar first metatarsal head with diffuse edema erythema and warmth to the site. No other signs of infection. Full-thickness wound noted to the plantar left heel with significant periwound hyperkeratosis. Wound base demonstrates healthy granular appearance with no other signs of infection.. Postdebridement measurements document nursing notes. Musculoskeletal: It is possible that there is some form of a calcaneal gait on the left lower extremity secondary to excessive lengthening of the Achilles tendon. Right lower extremity there is noted to be a hallux valgus deformity. No signs of DVT on clinical exam. Debridement Note Debridement Note Post-Debridement Measurements and Additional Note: Post-Debridement Measurements/Treatment WC - Nurse 1 - General Ulcer Assessment Start: 09/13/22 10:29 Freq: Status: Active Protocol: OLGA Activity Type Activity Date Activity User E-sign Co-sign Detail Recorded Client Recorded Date Recorded By Document 09/13/22 10:32 [facility] [id number] 09/13/22 10:42 [facility] Document 09/20/22 11:15 [facility] [id number] 09/20/22 11:23 [facility] 09/13/22 09/20/22 10:32 11:15 - Today's Visit Information Type of service Follow-up Visit Follow-up Visit (Physician/DATA EXAMINATION CLERK (Physician/DATA EXAMINATION CLERK ) ) Arrival Mode Ambulatory, Ambulatory, Walker Walker Arrival Mode (Other) knee walker KNEE WALKER Transfer Assistance None Patient Identification Verified (Name & Yes Yes ) Patient Requires Transmission-Based No No Precautions Height and Weight Body Mass Index (BMI) 37.2 37.2 BMI Classification Obese Obese Vital Signs Temperature (97.8 F-99.1 F) 96.1 F L Temperature Source Temporal Pulse Rate (60-100) 105 H 105 H Pulse Location Monitor Monitor Respiratory Rate (12-18) 16 16 Respiratory rate source Observation Observation Oxygen Delivery Method Room Air Room Air Blood Pressure (90/60-120/80) 144/82 H 131/78 H Blood Pressure Mean (mm Hg) 102 95 Source Monitor Monitor Position Sitting Sitting Blood Pressure Location Right Arm Left Arm History Since Last Visit- (Skip if this is Patient's initial visit) Have you changed medications since your No No last visit? Any new allergies or adverse reactions No No Had a fall/change in ADL's that may No No increase risk of falls Signs or symptoms of abuse and/or No No neglect since last visit Have you been in the hospital since your No No last visit? Has dressing in place as prescribed Yes Yes Has compression in place as prescribed N/A N/A Has offloadiing in place as prescribed Yes Yes Experienced any changes in pain level or No No management Left Footwear Surgical Shoe Surgical Shoe with pressure with pressure relief insole relief insole Right Footwear Surgical Shoe Surgical Shoe with pressure with pressure relief insole relief insole Pain Scale: 0-10 Numeric Is Patient Pain Free? Yes Yes - Nurse 1 - General Ulcer Measurement Start: 12/06/22 10:29 Freq: Status: Active Protocol: Activity Type Activity Date Activity User E-sign Co-sign Detail Recorded Client Recorded Date Recorded By Document 09/13/22 10:32 [facility] [id number] 09/13/22 10:42 [facility] Document 09/20/22 11:15 [facility] [id number] 09/20/22 11:23 [facility] 09/13/22 09/20/22 10:32 11:15 Wound Center Nurse 1 9. R plantar -Combined with other wound No No -Current Size (cm) - Length 2.1 2.1 -Current Size (cm) - Width 1.4 1.6 -Current Size (cm) - Depth 0.5 0.5 -Total Square Cm 2.94 3.36 -Date of Last Picture (Recall this 09/13/22 09/20/22 field) -Photo Taken Yes Yes -Epithelialization None Present None Present -Tunneling No No -Undermining/Tunneling Yes No -Undermining/Tunneling Starts (O'clock 11 ) -Undermining/Tunneling Ends (O'clock) 3 -Maximum Distance (cm) 0.2 -Circular Undermining No No -Exudate Amt Medium Medium -Exudate Type Serosanguineous Serosanguineous -Wound Margin Thickened Distinct, Outline Attached -Granulation Amt Large (67-100%) Large (67-100%) -Granulation Quality Pale,Red Red -Slough/Fibrin No No -Necrosis Amt None Present (0 None Present (0 %) %) -Texture (Cecelia-wound Skin Appearance) Assessed,Callus Assessed, ,Localized Scarring Edema,Scarring -Moisture (Cecelia-wound Skin Appearance) Assessed Assessed,Dry/ Scaly -Color (Cecelia-wound Skin Appearance) Assessed, Assessed Erythema -Temperature (Cecelia-wound Skin No Abnormality No Abnormality Appearance) (Pt Warm) (Pt Warm) -Tenderness on Palpation (Cecelia-wound No No Skin Appearance) -Ulcer Cleansing Soap and Water Soap and Water -Foul Odor after Cleansing No No -Anesthetic Used 5% Lidocaine 5% Lidocaine Gel Gel 8. L heel -Combined with other wound No No -Current Size (cm) - Length 0.4 1.7 -Current Size (cm) - Width 0.4 0.8 -Current Size (cm) - Depth 0.3 0.3 -Total Square Cm 0.16 1.36 -Date of Last Picture (Recall this 09/13/22 09/20/22 field) -Photo Taken Yes Yes -Epithelialization None Present None Present -Tunneling No No -Undermining/Tunneling No No -Circular Undermining No No -Exudate Amt Small Small -Exudate Type Serosanguineous Serosanguineous -Wound Margin Distinct, Distinct, Outline Outline Attached Attached -Granulation Amt Large (67-100%) Large (67-100%) -Granulation Quality Red Red -Slough/Fibrin Yes Yes -Necrosis Amt Small (1-33%) Small (1-33%) -Necrotic Tissue Type Adherent Slough Adherent Slough -Texture (Cecelia-wound Skin Appearance) Assessed,Callus Assessed,Callus ,Scarring ,Scarring -Moisture (Cecelia-wound Skin Appearance) Dry/Scaly Assessed,Dry/ Scaly -Color (Cecelia-wound Skin Appearance) Assessed Assessed -Temperature (Cecelia-wound Skin No Abnormality No Abnormality Appearance) (Pt Warm) (Pt Warm) -Tenderness on Palpation (Cecelia-wound No No Skin Appearance) -Ulcer Cleansing Soap and Water Soap and Water -Foul Odor after Cleansing No No -Anesthetic Used 5% Lidocaine 5% Lidocaine Gel Gel WC - Nurse 2 - General Ulcer CM Notes Start: 09/13/22 10:29 Freq: Status: Active Protocol: Activity Type Activity Date Activity User E-sign Co-sign Detail Recorded Client Recorded Date Recorded By Document 09/13/22 10:51 STEPHANIE [id number] 09/13/22 10:55 STEPHANIE 09/13/22 10:51 Wound Center Nurse 2 9. R plantar -Time 10:51 -Correct Patient No -Correct Side, Site, Position No -Correct Procedure No -Procedure Performed No -Post Debridement (cm) - Length 2.2 -Post Debridement (cm) - Width 1.4 -Post Debridement (cm) - Depth 0.3 -Total Square (Post) (cm) 3.08 -Area of Debridement (cm) - Length 2.2 -Area of Debridement (cm) - Width 1.4 -Total Square (Area) (cm) 3.08 -Tunneling No -Undermining/Tunneling No -Circular Undermining No -Wound/Ulcer Outcome Not Healed -Bleeding Controlled with Pressure -Treatment Response Procedure Tolerated Well -Offloading Yes -Type of Offloading Surgical Shoe -Debridement - Subq, 1st 20sq cm No 8. L heel -Time 10:52 -Correct Patient Yes -Correct Side, Site, Position Yes -Correct Procedure Yes -Procedure Performed Yes -Type of Procedure Debridement -Clinical Debridement Subcutaneous -Tissue Removed Subcutaneous -Post Debridement (cm) - Length 0.5 -Post Debridement (cm) - Width 0.5 -Post Debridement (cm) - Depth 0.2 -Total Square (Post) (cm) 0.25 -Area of Debridement (cm) - Length 0.5 -Area of Debridement (cm) - Width 0.5 -Total Square (Area) (cm) 0.25 -Tunneling No -Undermining/Tunneling No -Circular Undermining No -Wound/Ulcer Outcome Not Healed -Ulcer Cleansing Rinsed/ Irrigated with Saline -Foul Odor after Cleansing No -Bioengineered Tissue No -Bleeding Controlled with Pressure -Treatment Response Procedure Tolerated Well -Offloading Yes -Type of Offloading Knee Walker -Debridement - Subq, 1st 20sq cm Yes Pain Scale: 0-10 Numeric Is Patient Pain Free? Yes - Nurse 3 - General Ulcer D/C NN Start: 09/13/22 10:29 Freq: Status: Active Protocol: Activity Type Activity Date Activity User E-sign Co-sign Detail Recorded Client Recorded Date Recorded By Document 09/13/22 11:08 STEPHANIE [id number] 09/13/22 11:08 STEPHANIE 09/13/22 11:08 Wound Care Nurse 3 9. R plantar -Ulcer Cleansing Rinsed/ Irrigated with Saline -Foul Odor after Cleansing No -Primary Dressing Applied Promogran Neida Matter -Primary Dressing Covered/Secured with Dry Gauze,Dry Gauze & Roll Gauze,Secured with Tape -Promogran Neida Matter 1 8. L heel -Ulcer Cleansing Rinsed/ Irrigated with Saline -Foul Odor after Cleansing No -Primary Dressing Applied Promogran Neida Matter -Primary Dressing Covered/Secured with Dry Gauze & Roll Gauze, Secured with Tape -Promogran Neida Matter 0 Pain Scale: 0-10 Numeric Is Patient Pain Free? Yes - Visit Discharge Discharge Condition Stable Ambulatory Status Ambulatory, Walker Transportation Private Auto Medication Reconcilliation completed & Yes provided to patient/care provider Clinical Summary of Care Provided Yes Assessment/Plan Assessment/Plan (1) Ulcer of left foot with fat layer exposed: CODE(S): L97.522 - Non-pressure chronic ulcer of other part of left foot with fat layer exposed PLAN: Patient examined evaluated, all findings discussed patient in detail. 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 patient has been on suppressive abx for strep mitis/mrsa (augmentin/doxycycline). Will plan for outpatient 1st MPJ arthroplasty will refer to ID for abx management. The left plantar heel wound and right plantar 1st met head wound were excisionally debrided down to including level of subcutaneous tissue of all nonviable tissue using combination of tissue nippers and a 3 mm dermal curette. Procedure was done after obtaining oral consent. No incident. Hemostasis obtained with light compression. No anesthesia due to neuropathy. Aquacel silver with DSD to wounds, will nonweightbear on left with knee scooter, ambulate in surgical shoe on right. Patient will continue protected weightbearing total contact cast to left lower extremity and nonweightbearing to right foot. She will do this with knee scooter and right side. Follow-up in 1 week. (2) Ulcer of right foot with fat layer exposed: CODE(S): L97.512 - Non-pressure chronic ulcer of other part of right foot with fat layer exposed
== END 2022-10-08 23:59 | disposition home or self-care (01) ==
LOC: WC 11:00
PROVIDERS: PCP Family Medicine; Referring Provider Podiatrist; Visit Provider Podiatrist
DX: L97.422 Non-pressure chronic ulcer of left heel and midfoot with fat layer exposed (principal); L97.512 Non-pressure chronic ulcer of other part of right foot with fat layer exposed; M20.11 Hallux valgus (acquired), right foot; G25.81 Restless legs syndrome; E78.5 Hyperlipidemia, unspecified; K58.9 Irritable bowel syndrome, unspecified; G47.33 Obstructive sleep apnea (adult) (pediatric); Z79.899 Other long term (current) drug therapy
CPT/HCPCS: 11042

== ENCOUNTER 2022-10-07 10:32 | Day surgery (SDC) | payer MEDICARE, BC, SELFPAY ==
[2022-10-07] VITALS (8 sets, daily range): BP systolic 117–141; BP diastolic 65–90; PULSE 99–105; RESP 16–18; TEMP 36.1–36.6; O2SAT 92–98; BMI 36.8
[2022-10-07] MEDS: Lactated Ringers 1,000 ML 15 ML IV (10:45)
--- NOTE | 2022-10-07 12:30 | BON_PTH ---
PATIENT: CHAPO PEREZ LOC: [facility] [place] U#:[id number] AGE/SX: 57/F ROOM: RE10/07/[address]: Dr. David Oconnell DPM : 1965 BED: DIS: 10/07/2022 SPEC #: [id number] RECD: 10/11/22 09:37 STATUS: MARLA REQ #: [id number] SILVER: 10/07/22 12:[address]: David Oconnell DEPT: SURGICAL PATHOLOGY RECD BY: Rosalina Taylor ENTERED: 10/11/22 09:38 SP TYPE: Bone OTHR DR: Dr. Michael Corona MD Tissues: A - Toe, NOS B - Foot, NOS Procedures: Decalcification bone/plaque Surgery Specimen Level III HEADER OPERATION: Arthroplasty with wound debridement PRE-OP DIAGNOSIS: Osteomyelitis right MPJ; chronic right foot wound TISSUE SUBMITTED: A ? First metatarsal head, right foot, B ? Right foot clearance fragment MICROSCOPIC DIAGNOSIS A. Right metatarsal head, right foot: A piece of bone with reactive changes, negative for acute osteomyelitis. B. Right foot clearance fragment: A piece of dense fibroconnective tissue with reactive changes and granulation tissue reaction. Pieces of bone with reactive changes, negative for acute osteomyelitis. SJ:rg 10/14/2022 COMMENT Clinical correlation and appropriate follow up are necessary. MICROSCOPIC DESCRIPTION Slides are reviewed. GROSS DESCRIPTION A - Received in fixative is one container labeled with the patient's name and designated first metatarsal head right foot. The specimen consists of a fragment of light hernández bone measuring 2.6 x 2 x 1.7 cm. No mass lesions are identified. A longitudinal section of bone is submitted in one cassette after decalcification. B - Received in fixative is one container labeled with the patient's name and designated right foot clearance fragment. The specimen consists of multiple irregular fragments of hernández-white bone that in aggregate measure 4 x 3 x 0.3 cm. Also present in the specimen container is an irregular fragment of hernández-white soft tissue measuring 2 x 1 x 0.5 cm. The specimen is totally submitted in three cassettes as follows: 1 ? soft tissue, 2 & 3 ? bone after decalcification. / AM:eladio 10/11/2022 TC:5 CPT: 30449 x8, 17142 x2
--- NOTE | 2022-10-07 13:02 | RAD_ITS ---
STUDY: X-RAY - RIGHT FOOT CLINICAL: Female, 57 years old. MPJ ARTHROPLASTY. TECHNIQUE: 4 intraoperative digital documentation view(s) of the foot. COMPARISON: None. FINDINGS: 4 intraoperative digital documentation views show resection of the distal first metatarsal. 4 images acquired. Total exposure time 6 seconds. Longest single exposure 2 seconds. Total DAP - 0.7520 cGycm2. Total air kerma 0.0448 mGy. RAD/Foot 2 Views IMPRESSION: Intraoperative digital documentation views as described. Electronically Signed: Cyrus Bazzi, at 14:59 EST ,
[2022-10-07] MEDS: Cefazolin 2 GM in 0.9% Normal Saline 100 ML IV (13:34)
--- NOTE | 2022-10-07 14:34 | PCM.OPRPT ---
Problems Associated Problem List Diagnoses (1) Other acute postprocedural pain: (2) Non-pressure chronic ulcer of other part of right foot with fat layer exposed: (3) Osteomyelitis of foot, right, acute: Report of Operation Date of Procedure: 10/07/22 Pre-Operative Diagnosis: 1. Right foot wound - chronic - plantar 1st MPJ 2. Right foot 1st met head osteomyelitis Post-Operative Diagnosis: same Surgery/Procedure Performed:: 1. Arthroplasty with 1st metatarsal head excision for biopsy/culture/wound offloading 2. Plantar right 1st met head wound debridement level of subcutaneous tissue Description of Surgical Findings:: First metatarsal head was removed demonstrated visit cyst with an first met tarsal head upon excision the bone itself. Some evidence of osteomyelitis of first metatarsal head upon excision. Proximal clearance margin was taken as well. No castro purulence noted. Sesamoid tibial and fibular both removed as well. First metatarsal head wound plantarly. Offloading upon resection of first metatarsal head and sesamoids. This was confirmed with fluoroscopic imaging Surgeon: David Oconnell spinning and winding supervisor: None (natali moreno pgyII) Type of Anesthesia: Local MAC Special Medications: 20cc 0.5% marcaine plain Specimen's removed: 1) 1st metatarsal head, right foot - pathology 2) Tibial/fibular sesamoids, right foot -culture 3) proximal clearance margins, 1st metatarsal - pathology 4) swab cultures taken 1st metatarsal wound- right foot Drains: none Estimated Blood Loss (mL): minimal Fluids Replaced: none Description of Procedure: Patient induced under MAC anesthesia after being placed comfortably in supine position on the operating room table with all osseous prominences offloaded prevent any compression neuropraxia. Right lower extremity was bumped remove any external rotation well-padded ankle tourniquet applied to the right lower extremity Jose block with 10 cc of half percent Marcaine plain was performed [facility]'s MPJ using standard technique. Right lower extremity scrubbed prepped draped using typical aseptic manner. Once cleared by anesthesia a linear incision was made along the dorsal medial aspect of first MPJ just medial to the extensor hallucis longus tendon this incision was made down to level of bone as a full-thickness flap was made skin subcutaneous tissue deep fascia and joint capsule. Any neurovascular structures were protected with blunt retraction. Bleeders cauterized. Tourniquet was elevated inflated prior to incision. Total tourniquet time was noted to be 40 minutes. First metatarsal head was exposed dorsally medially laterally using combination of pickups and a 15 blade was then removed using a 2 cm section with a sagittal saw upon removal of the first metatarsal head unfortunately slipped and contacted the ground this wire was not sent to culture as this would not be accurate was cleansed and sent to pathology for further examination to confirm diagnosis of osteomyelitis. Proximal clearance margins were taken approximately 2 mm and sent to pathology as well. The tibial and fibular system sesamoids were then removed using combination of pickups and Littler dissecting scissors was used to remove these were sent for bone culture as well as swab cultures were taken from the incisional site to help with organism identification due to contamination of the first metatarsal head. Incision was flushed with copious amounts normal sterile saline. Deep fascia capsular closure and subcutaneous closure was performed using simple interrupted buried technique. Incision was then closed with horizontal mattress using 2-0 Prolene. Plantar first metatarsal head wound was excisionally debrided down to including level subcutaneous tissue of all nonviable tissue using tissue nippers and curette. Clear debridement wound was 2.0 x 1.5 x 0.4 cm postdebridement wound was 2.2 x 1.7 x 0.6 cm. Tourniquet was then let down incision sites were dressed with Betadine Adaptic 4 x 4's Kerlix ABD pads second Kerlix and a well-padded Castro posterior splint. Total tourniquet time was noted to be 40 minutes. Patient was transferred to PACU vital signs stable and vascular status intact all digits for further monitoring prior to discharge. Patient tolerated procedure and anesthesia well in apparent satisfactory condition. Patient will maintain nonweightbearing status follow-up in 1 week Patient has had a chronic first metatarsal head wound in setting of neuropathy and lupus which is. Healed for 1 year. MRI confirmed likely osteomyelitis to the first metatarsal head combined with hallux valgus deformity. The prominent deformity causing. Decision was made for elective arthroplasty of the first metatarsal phalangeal joint to offload the wound site as well as remove the potentially infected bone. Admit VTE Documentation VTE Present on Admission: Yes VTE Mechan Device Prophylaxis: SCD's VTE Pharm Prophylaxis ordered?: Yes
== END 2022-10-07 17:32 | disposition home or self-care (01) ==
LOC: SDC 10:33 → AC 10:36
PROVIDERS: PCP Family Medicine; Referring Provider Podiatrist; Visit Provider Podiatrist
PROC: (CPT 11042; principal; 2022-10-07 12:15)
DX: L97.512 Non-pressure chronic ulcer of other part of right foot with fat layer exposed (principal); M32.9 Systemic lupus erythematosus, unspecified; G62.9 Polyneuropathy, unspecified; G47.30 Sleep apnea, unspecified; A49.02 Methicillin resistant Staphylococcus aureus infection, unspecified site
CPT/HCPCS: 11042; 28899; 73620; 76000; 87070; 87075; 87077; 87186; 87205; 88304; 88305; 88311; J2405

== ENCOUNTER → 2022-10-24 | Outpatient (CLI) | payer MEDICARE, BC, SELFPAY ==
--- NOTE | 2022-10-24 11:10 | RAD_ITS ---
STUDY: X-RAY - RIGHT FOOT CLINICAL: Female, 57 years old. Soft tissue ulceration. TECHNIQUE: 3 view(s) of the foot. COMPARISON: August 02, 2022. FINDINGS: Osteopenia. Inferior calcaneal spur. Resection of the distal first metatarsal. Periosteal reaction and minimal resorption of the base of the proximal phalanx of the first toe with diffuse focal soft tissue swelling at this site. Superficial ulceration medially. RAD/Foot min 3 Views IMPRESSION: Resection of the distal first metatarsal. Focal soft tissue swelling with resorption of the base of the proximal phalanx and proximal phalangeal periosteal reaction. Findings are compatible with contiguous spread osteomyelitis of the base of the proximal phalanx of the first digit. Electronically Signed: Cyrus Bazzi, at 12:43 EST ,
== END | disposition home or self-care (01) ==
PROVIDERS: PCP Family Medicine; Referring Provider Podiatrist; Visit Provider Podiatrist
DX: L97.512 Non-pressure chronic ulcer of other part of right foot with fat layer exposed (principal)
CPT/HCPCS: 73630

== ENCOUNTER 2022-10-25 09:45 | Outpatient (RCR) | payer MEDICARE, BC, SELFPAY ==
[2022-10-09 00:23] VITALS: BP 131/78; PULSE 105; RESP 16; TEMP 35.6; BMI 37.2
[2022-10-18 09:47] VITALS: BP 127/81; PULSE 108; RESP 20; TEMP 36.6; BMI 37.2
--- NOTE | 2022-10-18 10:25 | PCM.WC.PN ---
History of Present Illness Date of Service: 10/18/22 Chief Complaint: Left heel ulcer right foot ulcers History of Wound: This pleasant 56-year-old female with significant past medical history of lupus, history of panic attack, depression, history of delayed healing, hyperlipidemia, irritable bowel syndrome, memory loss, restless leg syndrome, and obstructive sleep apnea is here for follow-up of left heel and right foot ulcers. She is ready for total contact cast application again today. Patient presents today with increased swelling redness to her right big toe. She offloads the right side with a surgical shoe felt an offloading pad. Patient has been treated with a total contact cast on the left lower extremity. She denies any constitutional symptoms at current and has no other complaints. Subjective Subjective patient 1 week post op from right foot 1st MPJ arthroplasty, denies pain/constitutionals/signs of DVT. Compliant with treatment. Objective Data Objective Data Vital Signs: Vital Signs Temp Pulse Resp BP 97.8 F 108 H 20 H 127/81 H 10/18/22 09:47 10/18/22 09:47 10/18/22 09:47 10/18/22 09:47 Weight: 111.13 kg Body Mass Index (BMI) 37.2 Physical Exam Narrative Patient alert oriented to person, place and time. Vascular: Dorsalis pedis posterior tibial pulse palpable 2 out of 4. Absent digital hair growth some skin atrophic changes noted. Capillary fill time is less than 5 seconds to distal tuft of digits 1 through 5 bilaterally. There is no to be diffuse edema to right forefoot focusing at the level of the first metatarsal phalangeal joint. Focal increase in warmth and erythema to the site as well. Neurologic: Light touch and protective sensation diminished to bilateral feet. Dermatologic: Full-thickness wound noted to the plantar first metatarsal head, nosings of infection, reduce size. Intact incision to dorsomedial 1st mpj with intact sutures and mild edema. No other signs of infection. Full-thickness wound noted to the plantar left heel with significant periwound hyperkeratosis. Wound base demonstrates healthy granular appearance with no other signs of infection.. Postdebridement measurements document nursing notes. Musculoskeletal: It is possible that there is some form of a calcaneal gait on the left lower extremity secondary to excessive lengthening of the Achilles tendon. Right lower extremity there is noted to be a hallux valgus deformity. No signs of DVT on clinical exam. 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 ) Arrival Mode Ambulatory, Walker Arrival Mode (Other) knee walker Transfer Assistance None Patient Identification Verified (Name & Yes ) Patient Requires Transmission-Based No Precautions Height and Weight Body Mass Index (BMI) 37.2 BMI Classification Obese Vital Signs Temperature (97.8 F-99.1 F) 97.8 F Temperature Source Temporal Pulse Rate (60-100) 108 H Pulse Location Monitor Respiratory Rate (12-18) 20 H Blood Pressure (90/60-120/80) 127/81 H Blood Pressure Mean (mm Hg) 96 Source Monitor History Since Last Visit- (Skip if this is Patient's initial visit) Have you changed medications since your No last visit? Any new allergies or adverse reactions No Had a fall/change in ADL's that may No increase risk of falls Signs or symptoms of abuse and/or No neglect since last visit Have you been in the hospital since your No last visit? Has dressing in place as prescribed Yes Has compression in place as prescribed Yes Has offloadiing in place as prescribed Yes Experienced any changes in pain level or No management Right Footwear Other Footwear (Comment) Other Footwear post op dressing Pain Scale: 0-10 Numeric Is Patient Pain Free? Yes - Nurse 1 - General Ulcer Measurement Start: 10/18/22 09:47 Freq: Status: Active Protocol: Activity Type Activity Date Activity User E-sign Co-sign Detail Recorded Client Recorded Date Recorded By Document 10/18/22 09:47 DL [id number] 10/18/22 10:00 DL 10/18/22 09:47 Wound Center Nurse 1 #12 R Med foot- Post Op -Current Size (cm) - Length 0.1 -Current Size (cm) - Width 0.1 -Current Size (cm) - Depth 0.1 -Total Square Cm 0.01 -Photo Taken Yes -Exudate Amt None Present -Wound Margin Flat & Intact -Granulation Amt Large (67-100%) -Granulation Quality [place] -Necrosis Amt None Present (0 %) -Structure Exposed N/A -Texture (Cecelia-wound Skin Appearance) Localized Edema ,Scarring -Moisture (Cecelia-wound Skin Appearance) No Abnormality -Temperature (Cecelia-wound Skin No Abnormality Appearance) (Pt Warm) -Tenderness on Palpation (Cecelia-wound No Skin Appearance) -Ulcer Cleansing Soap and Water -Foul Odor after Cleansing No -Wound Comment(s) Sutures intact, incision well approximated. 9. R plantar -Current Size (cm) - Length 1.7 -Current Size (cm) - Width 1.6 -Current Size (cm) - Depth 0.1 -Total Square Cm 2.72 -Photo Taken Yes -Exudate Amt Medium -Exudate Type Serosanguineous -Wound Margin Distinct, Outline Attached -Granulation Amt Small (1-33%) -Granulation Quality [place] -Necrosis Amt Large (67-100%) -Necrotic Tissue Type Adherent Slough -Structure Exposed N/A -Texture (Cecelia-wound Skin Appearance) Localized Edema ,Scarring -Moisture (Cecelia-wound Skin Appearance) No Abnormality -Color (Cecelia-wound Skin Appearance) No Abnormality -Temperature (Cecelia-wound Skin No Abnormality Appearance) (Pt Warm) -Tenderness on Palpation (Cecelia-wound No Skin Appearance) -Ulcer Cleansing Soap and Water -Foul Odor after Cleansing No -Anesthetic Used 5% Lidocaine Gel WC - Nurse 2 - General Ulcer CM Notes Start: 10/18/22 09:47 Freq: Status: Active Protocol: Activity Type Activity Date Activity User E-sign Co-sign Detail Recorded Client Recorded Date Recorded By Document 10/18/22 10:10 STEPHANIE [id number] 10/18/22 10:18 STEPHANIE 10/18/22 10:10 Wound Center Nurse 2 #12 R Med foot- Post Op -Correct Patient No -Correct Side, Site, Position No -Correct Procedure No -Procedure Performed No -Wound/Ulcer Outcome Not Healed 9. R plantar -Time 10:14 -Correct Patient Yes -Correct Side, Site, Position Yes -Correct Procedure Yes -Procedure Performed Yes -Type of Procedure Debridement -Clinical Debridement Subcutaneous -Tissue Removed Subcutaneous -Post Debridement (cm) - Length 1.7 -Post Debridement (cm) - Width 1.7 -Post Debridement (cm) - Depth 0.1 -Total Square (Post) (cm) 2.89 -Area of Debridement (cm) - Length 1.7 -Area of Debridement (cm) - Width 1.7 -Total Square (Area) (cm) 2.89 -Tunneling No -Undermining/Tunneling No -Circular Undermining No -Wound/Ulcer Outcome Not Healed -Bioengineered Tissue No -Bleeding Controlled with Pressure -Treatment Response Procedure Tolerated Well -Offloading Yes -Type of Offloading Knee Walker -Debridement - Subq, 1st 20sq cm No 8. L heel -Time 10:17 -Correct Patient Yes -Correct Side, Site, Position Yes -Correct Procedure Yes -Procedure Performed Yes -Type of Procedure Debridement -Clinical Debridement Subcutaneous -Tissue Removed Subcutaneous -Post Debridement (cm) - Length 1.8 -Post Debridement (cm) - Width 1.8 -Post Debridement (cm) - Depth 0.3 -Total Square (Post) (cm) 3.24 -Area of Debridement (cm) - Length 1.8 -Area of Debridement (cm) - Width 1.8 -Total Square (Area) (cm) 3.24 -Tunneling No -Undermining/Tunneling No -Circular Undermining No -Wound/Ulcer Outcome Not Healed -Ulcer Cleansing Rinsed/ Irrigated with Saline -Foul Odor after Cleansing No -Bioengineered Tissue No -Bleeding Controlled with Pressure -Treatment Response Procedure Tolerated Well -Offloading Yes -Type of Offloading Knee Walker -Debridement - Subq, 1st 20sq cm Yes Pain Scale: 0-10 Numeric Is Patient Pain Free? Yes Assessment/Plan Assessment/Plan (1) Ulcer of left foot with fat layer exposed: CODE(S): L97.522 - Non-pressure chronic ulcer of other part of left foot with fat layer exposed PLAN: Patient examined evaluated, all findings discussed patient in detail. patient 1 week post op (DOS: 10/07/22). Denies constitutionals Pathology negative for OM, sesamoid culture growing MRSA with intermediate resistance to doxycycline, wound culture growing MRSA/strep mitis. Will add zyvox to augmentin. Referral to ID. Wounds to bilateral feet were excisionally debrided down to and including level of subcutaneous tissue of all non-viable tissue using a 7mm dermal curette without incident. hemostasis obtained with compression, no anesthesia due to neuropathy, pre and post debridement measurements documented in nursing notes. patient tolerated procedure well. Neida/DSD/3M compression for dressing bilateral. Continue NWB on right, lovenox for dvt prophylaxis follow up in 1 week, radiographs ordered today. (2) Ulcer of right foot with fat layer exposed: CODE(S): L97.512 - Non-pressure chronic ulcer of other part of right foot with fat layer exposed
[2022-10-25 10:08] VITALS: BP 143/100; PULSE 128; RESP 22; TEMP 36.6; BMI 37.2
--- NOTE | 2022-10-25 10:43 | PCM.WC.PN ---
History of Present Illness Date of Service: 10/25/22 Chief Complaint: Left heel ulcer right foot ulcers History of Wound: This pleasant 56-year-old female with significant past medical history of lupus, history of panic attack, depression, history of delayed healing, hyperlipidemia, irritable bowel syndrome, memory loss, restless leg syndrome, and obstructive sleep apnea is here for follow-up of left heel and right foot ulcers. She is ready for total contact cast application again today. Patient presents today with increased swelling redness to her right big toe. She offloads the right side with a surgical shoe felt an offloading pad. Patient has been treated with a total contact cast on the left lower extremity. She denies any constitutional symptoms at current and has no other complaints. Subjective Subjective Patient is 2 and half weeks postop from a right first metatarsal head medial arthroplasty to offload the plantar first MPJ wound site. Patient denies constitutional symptoms. Patient denies chest pain calf pain shortness of breath. Patient has no other issues been maintaining nonweightbearing status to the right with offloading the left with an offloading device. Objective Data Objective Data Vital Signs: Vital Signs Temp Pulse Resp BP 97.9 F 128 H 22 H 143/100 H 10/25/22 10:08 10/25/22 10:08 10/25/22 10:08 10/25/22 10:08 Weight: 111.13 kg Body Mass Index (BMI) 37.2 Physical Exam Narrative Patient alert oriented to person, place and time. Vascular: Dorsalis pedis posterior tibial pulse palpable 2 out of 4. Absent digital hair growth some skin atrophic changes noted. Capillary fill time is less than 5 seconds to distal tuft of digits 1 through 5 bilaterally. There is no to be diffuse edema to right forefoot focusing at the level of the first metatarsal phalangeal joint. Focal increase in warmth and erythema to the site as well. Neurologic: Light touch and protective sensation diminished to bilateral feet. Dermatologic: Full-thickness wound noted to the plantar first metatarsal head, no signs of infection, reduced size. Healed incision to dorsomedial 1st mpj with intact sutures and mild edema. No other signs of infection. Full-thickness wound noted to the plantar left heel with significant periwound hyperkeratosis. Wound base demonstrates healthy granular appearance with no other signs of infection. Postdebridement measurements document nursing notes. Musculoskeletal: It is possible that there is some form of a calcaneal gait on the left lower extremity secondary to excessive lengthening of the Achilles tendon. Right lower extremity there is noted to be a hallux valgus deformity. No signs of DVT on clinical exam. Debridement Note Debridement Note Post-Debridement Measurements and Additional Note: Post-Debridement Measurements/Treatment WC - Nurse 1 - General Ulcer Assessment Start: 10/18/22 09:47 Freq: Status: Active Protocol: ARACELI.LOWEXT Activity Type Activity Date Activity User E-sign Co-sign Detail Recorded Client Recorded Date Recorded By Document 10/18/22 09:47 DL [id number] 10/18/22 10:00 DL Document 10/25/22 10:08 DL [id number] 10/25/22 10:22 DL Edit Result 10/25/22 10:08 DL (1) [id number] 10/25/22 10:24 DL (1) Comment => BP rechecked: 112/ => 68, pulse 118 10/18/22 10/25/22 09:47 10:08 - Today's Visit Information Type of service Follow-up Visit Follow-up Visit (Physician/BAGGER AND STOCK HANDLER HELPER (Physician/BAGGER AND STOCK HANDLER HELPER ) ) Arrival Mode Ambulatory, Ambulatory, Walker Walker Arrival Mode (Other) knee walker Transfer Assistance None None Patient Identification Verified (Name & Yes Yes ) Patient Requires Transmission-Based No No Precautions Height and Weight Body Mass Index (BMI) 37.2 37.2 BMI Classification Obese Obese Vital Signs Temperature (97.8 F-99.1 F) 97.8 F 97.9 F Temperature Source Temporal Temporal Pulse Rate (60-100) 108 H 128 H Pulse Location Monitor Respiratory Rate (12-18) 20 H 22 H Respiratory rate source Observation Blood Pressure (90/60-120/80) 127/81 H 143/100 H Blood Pressure Mean (mm Hg) 96 114 Source Monitor Monitor Comment BP rechecked: 112/68, pulse 118 History Since Last Visit- (Skip if this is Patient's initial visit) Have you changed medications since your No No last visit? Any new allergies or adverse reactions No No Had a fall/change in ADL's that may No No increase risk of falls Signs or symptoms of abuse and/or No No neglect since last visit Have you been in the hospital since your No No last visit? Has dressing in place as prescribed Yes Yes Has compression in place as prescribed Yes Yes Has offloadiing in place as prescribed Yes N/A Experienced any changes in pain level or No Yes management Right Footwear Other Footwear No Footwear (Comment) Other Footwear post op dressing Pain Scale: 0-10 Numeric Is Patient Pain Free? Yes Yes WC - Nurse 1 - General Ulcer Measurement Start: 10/18/22 09:47 Freq: Status: Active Protocol: Activity Type Activity Date Activity User E-sign Co-sign Detail Recorded Client Recorded Date Recorded By Document 10/18/22 09:47 DL [id number] 10/18/22 10:00 DL Document 10/25/22 10:08 DL [id number] 10/25/22 10:22 DL 10/18/22 10/25/22 09:47 10:08 Wound Center Nurse 1 #12 R Med foot- Post Op -Current Size (cm) - Length 0.1 0.1 -Current Size (cm) - Width 0.1 0.1 -Current Size (cm) - Depth 0.1 0.1 -Total Square Cm 0.01 0.01 -Photo Taken Yes Yes -Exudate Amt None Present None Present -Wound Margin Flat & Intact Indistinct, Non -Visible -Granulation Amt Large (67-100%) Large (67-100%) -Granulation Quality Thom[place] Thom[place] -Necrosis Amt None Present (0 None Present (0 %) %) -Structure Exposed N/A N/A -Texture (Cecelia-wound Skin Appearance) Localized Edema Scarring ,Scarring -Moisture (Cecelia-wound Skin Appearance) No Abnormality No Abnormality -Color (Cecelia-wound Skin Appearance) No Abnormality -Temperature (Cecelia-wound Skin No Abnormality No Abnormality Appearance) (Pt Warm) (Pt Warm) -Tenderness on Palpation (Cecelia-wound No No Skin Appearance) -Ulcer Cleansing Soap and Water Soap and Water -Foul Odor after Cleansing No No -Wound Comment(s) Sutures intact, Incision well incision well approximated, approximated. sutures intact. 9. R plantar -Current Size (cm) - Length 1.7 1 -Current Size (cm) - Width 1.6 1.1 -Current Size (cm) - Depth 0.1 0.1 -Total Square Cm 2.72 1.1 -Photo Taken Yes Yes -Exudate Amt Medium Small -Exudate Type Serosanguineous -Wound Margin Distinct, Distinct, Outline Outline Attached Attached -Granulation Amt Small (1-33%) Large (67-100%) -Granulation Quality Thom[place] Pale,Thomaston -Necrosis Amt Large (67-100%) Small (1-33%) -Necrotic Tissue Type Adherent Slough Adherent Slough -Structure Exposed N/A N/A -Texture (Cecelia-wound Skin Appearance) Localized Edema Callus,Scarring ,Scarring -Moisture (Cecelia-wound Skin Appearance) No Abnormality Dry/Scaly -Color (Cecelia-wound Skin Appearance) No Abnormality No Abnormality -Temperature (Cecelia-wound Skin No Abnormality No Abnormality Appearance) (Pt Warm) (Pt Warm) -Tenderness on Palpation (Cecelia-wound No No Skin Appearance) -Ulcer Cleansing Soap and Water Soap and Water -Foul Odor after Cleansing No No -Anesthetic Used 5% Lidocaine 5% Lidocaine Gel Gel 8. L heel -Current Size (cm) - Length 1.6 -Current Size (cm) - Width 1.8 -Current Size (cm) - Depth 0.3 -Total Square Cm 2.88 -Photo Taken Yes -Exudate Amt Small -Exudate Type Serosanguineous -Wound Margin Distinct, Outline Attached -Granulation Amt Large (67-100%) -Granulation Quality Red -Necrosis Amt Small (1-33%) -Necrotic Tissue Type Adherent Slough -Structure Exposed N/A -Texture (Cecelia-wound Skin Appearance) Callus,Scarring -Moisture (Cecelia-wound Skin Appearance) Dry/Scaly -Color (Cecelia-wound Skin Appearance) No Abnormality -Temperature (Cecelia-wound Skin No Abnormality Appearance) (Pt Warm) -Tenderness on Palpation (Cecelia-wound No Skin Appearance) -Ulcer Cleansing Soap and Water -Anesthetic Used 5% Lidocaine Gel Right Calf (cm) 38.4 Right Ankle (cm) 19.2 WC - Nurse 2 - General Ulcer CM Notes Start: 10/18/22 09:47 Freq: Status: Active Protocol: Activity Type Activity Date Activity User E-sign Co-sign Detail Recorded Client Recorded Date Recorded By Document 10/18/22 10:10 STEPHANIE [id number] 10/18/22 10:18 STEPHANIE 10/18/22 10:10 Wound Center Nurse 2 #12 R Med foot- Post Op -Correct Patient No -Correct Side, Site, Position No -Correct Procedure No -Procedure Performed No -Wound/Ulcer Outcome Not Healed 9. R plantar -Time 10:14 -Correct Patient Yes -Correct Side, Site, Position Yes -Correct Procedure Yes -Procedure Performed Yes -Type of Procedure Debridement -Clinical Debridement Subcutaneous -Tissue Removed Subcutaneous -Post Debridement (cm) - Length 1.7 -Post Debridement (cm) - Width 1.7 -Post Debridement (cm) - Depth 0.1 -Total Square (Post) (cm) 2.89 -Area of Debridement (cm) - Length 1.7 -Area of Debridement (cm) - Width 1.7 -Total Square (Area) (cm) 2.89 -Tunneling No -Undermining/Tunneling No -Circular Undermining No -Wound/Ulcer Outcome Not Healed -Bioengineered Tissue No -Bleeding Controlled with Pressure -Treatment Response Procedure Tolerated Well -Offloading Yes -Type of Offloading Knee Walker -Debridement - Subq, 1st 20sq cm No 8. L heel -Time 10:17 -Correct Patient Yes -Correct Side, Site, Position Yes -Correct Procedure Yes -Procedure Performed Yes -Type of Procedure Debridement -Clinical Debridement Subcutaneous -Tissue Removed Subcutaneous -Post Debridement (cm) - Length 1.8 -Post Debridement (cm) - Width 1.8 -Post Debridement (cm) - Depth 0.3 -Total Square (Post) (cm) 3.24 -Area of Debridement (cm) - Length 1.8 -Area of Debridement (cm) - Width 1.8 -Total Square (Area) (cm) 3.24 -Tunneling No -Undermining/Tunneling No -Circular Undermining No -Wound/Ulcer Outcome Not Healed -Ulcer Cleansing Rinsed/ Irrigated with Saline -Foul Odor after Cleansing No -Bioengineered Tissue No -Bleeding Controlled with Pressure -Treatment Response Procedure Tolerated Well -Offloading Yes -Type of Offloading Knee Walker -Debridement - Subq, 1st 20sq cm Yes Pain Scale: 0-10 Numeric Is Patient Pain Free? Yes WC - Nurse 3 - General Ulcer D/C NN Start: 10/18/22 09:47 Freq: Status: Active Protocol: Activity Type Activity Date Activity User E-sign Co-sign Detail Recorded Client Recorded Date Recorded By Document 10/18/22 10:43 [facility] [id number] 10/18/22 10:44 BMF Edit Result 10/18/22 10:43 BMF (1) [id number] 10/19/22 07:43 PL (1) Right - Multi-Layered Wrap Application => Multi-Layer Comp - => Right ($) 10/18/22 10:43 Wound Care Nurse 3 #12 R Med foot- Post Op -Ulcer Cleansing Rinsed/ Irrigated with Saline -Foul Odor after Cleansing No -Primary Dressing Covered/Secured with Dry Gauze 9. R plantar -Ulcer Cleansing Rinsed/ Irrigated with Saline -Foul Odor after Cleansing No -Primary Dressing Applied Promogran Neida Matter -Primary Dressing Covered/Secured with Dry Gauze & Roll Gauze, Secured with Tape -Promogran Neida Matter 1 8. L heel -Ulcer Cleansing Rinsed/ Irrigated with Saline -Foul Odor after Cleansing No -Primary Dressing Applied Promogran Neida Matter -Primary Dressing Covered/Secured with Dry Gauze, Secured with Tape -Promogran Neida Matter 0 Right -Multi-Layered Wrap Application Multi-Layer Comp - Right ($ ) Treatment Response Procedure Tolerated Well Pain Scale: 0-10 Numeric Is Patient Pain Free? Yes WC - Visit Discharge Discharge Condition Stable Ambulatory Status Ambulatory, Walker Transportation Private Auto Accompanied by KNEE WALKER Assessment/Plan Assessment/Plan (1) Ulcer of left foot with fat layer exposed: CODE(S): L97.522 - Non-pressure chronic ulcer of other part of left foot with fat layer exposed PLAN: Patient examined evaluated, all findings discussed patient in detail. patient 1 week post op (DOS: 10/07/22). Denies constitutionals Pathology negative for OM, sesamoid culture growing MRSA with intermediate resistance to doxycycline, wound culture growing MRSA/strep mitis. Patient on Bactrim and Augmentin. Awaiting ID eval. Wounds to bilateral feet were excisionally debrided down to and including level of subcutaneous tissue of all non-viable tissue using a 7mm dermal curette without incident. hemostasis obtained with compression, no anesthesia due to neuropathy, pre and post debridement measurements documented in nursing notes. patient tolerated procedure well. Neida/DSD/3M compression for dressing bilateral. Continue NWB on right, lovenox for dvt prophylaxis Radiographs reviewed today. follow up in 1 week. (2) Ulcer of right foot with fat layer exposed: CODE(S): L97.512 - Non-pressure chronic ulcer of other part of right foot with fat layer exposed
== END 2022-10-25 16:13 | disposition home or self-care (01) ==
LOC: WC 09:45
PROVIDERS: PCP Family Medicine; Referring Provider Podiatrist; Visit Provider Podiatrist
DX: L97.422 Non-pressure chronic ulcer of left heel and midfoot with fat layer exposed (principal); L97.512 Non-pressure chronic ulcer of other part of right foot with fat layer exposed; M20.11 Hallux valgus (acquired), right foot; E78.5 Hyperlipidemia, unspecified; Z48.02 Encounter for removal of sutures; Z79.01 Long term (current) use of anticoagulants; Z79.899 Other long term (current) drug therapy
CPT/HCPCS: 11042; 29581

== ENCOUNTER → 2023-01-16 | Outpatient (CLI) | payer MEDICARE, BC, SELFPAY ==
[2023-01-16 09:46] LABS: Color, Urine Yellow (Yellow); Glucose, Dipstick Normal (Normal); Ketone-Dipstick Negative (Negative); Leukocyte Esterase-Dipstick 500 /ul (Negative); Nitrite-Dipstick Negative (Negative); Occult Blood-Urine Negative /ul (Negative); Protein-Dipstick 15 mg/dl (Negative); Specific Gravity, Urine 1.015 (1.002-1.030); Urine Bilirubin Dipstick Negative (Negative); Urine Clarity Sl. Cloudy (Clear); Urine Urobilinogen Normal (Normal); Urine pH 6.5 (5.0 - 8.0)
[2023-01-16 09:53] LABS: Protein, Urine (Random) 20.7 mg/dL (<11.9); Protein:Creat Ratio 218 mg/g CRE (0-200)
[2023-01-16 09:57] LABS: Absolute Lymphocyte Count 2.26 X10^3/uL (0.83-4.51); Absolute Neutrophil Count 4.1 X10^3/uL (2.0-7.7); Basophil# 0.04 X10^3/uL; Basophil% 0.6 % (0-1); Eosinophil# 0.26 X10^3/uL; Eosinophils% 3.6 % (0-5); Hematocrit 38.1 % (37-47); Hemoglobin 12.1 g/dL (12.0-15.0); Lymphocyte # 2.26 X10^3/ul (0.83-4.51); Lymphocyte % 31.4 % (19-41); Mean Corp Hgb Conc 31.8 g/dL (32-36); Mean Corpuscular Hgb 27.8 pg (27.0-32.0); Mean Corpuscular Volume 87.4 fL (81-99); Mean Platelet Vol. 8.8 fl (6.2-12.0); Monocyte# 0.47 X10^3/uL; Monocyte% 6.5 % (0-10); NRBC Flagged by Analyzer 0 % (0-5); Neutrophil # 4.14 X10^3/uL (2.7-7.7); Neutrophil % 57.6 % (47-70); Platelet Count 392 K/mm3 (150-450); RBC Distribution Width CV 12.7 % (11.6-14.6); RBC Distribution Width SD 40.9 fl (35.1-43.9); Red Blood Count 4.36 M/mm3 (4.2-5.4); White Blood Count 7.2 K/mm3 (4.4-11.0)
[2023-01-16 10:01] LABS: Erythrocyte Sedimentation Rate 36 mm/hr (0-30)
[2023-01-16 10:12] LABS: EXAGEN MAILED SPECIMEN
[2023-01-16 10:17] LABS: ALB/GLOB Ratio 0.8 RATIO (0.9-2.4); AST(SGOT) 9 U/L (15-37); Alanine Aminotransfer ALT/SGPT 14 U/L (13-56); Albumin, Serum 3.3 g/dL (3.2-5.0); Alkaline Phosphatase 128 U/L (45-117); Anion Gap 2 (5-15); BUN 9 mg/dL (7-18); BUN/Creat Ratio 12.3 RATIO (10-20); Calcium,Total 9.3 mg/dL (8.5-10.1); Chloride 104 mmol/L (98-107); Creatinine, Serum 0.73 mg/dL (0.55-1.02); EST Glomerular Filtration Rate 87 mL/min (>60); Est Glom Filt Rate - Afr Amer 105 mL/min (>60); Globulin 4.4 g/dL (2.2-4.2); Glucose 105 mg/dL (74-106); Potassium 3.9 mmol/L (3.5-5.1); Protein, Total 7.7 g/dL (6.4-8.2); Sodium Level 138 mmol/L (136-145)
== END | disposition home or self-care (01) ==
LOC: MTLAB 09:09
PROVIDERS: PCP Family Medicine; Referring Provider Internal Medicine Rheumatology; Visit Provider Internal Medicine Rheumatology
DX: M06.4 Inflammatory polyarthropathy (principal); Z79.899 Other long term (current) drug therapy
CPT/HCPCS: 36415; 80053; 81002; 82570; 84156; 85025; 85652; 86140

== ENCOUNTER 2023-02-03 08:29 | Day surgery (SDC) | payer MEDICARE, BC, SELFPAY ==
[2023-02-03] MEDS: Lactated Ringers 1,000 ML 15 ML IV (08:51)
[2023-02-03 08:52] VITALS: BP 143/79; PULSE 94; RESP 17; TEMP 36.4; O2SAT 98; BMI 36.6
--- NOTE | 2023-02-03 10:00 | WND_PTH ---
PATIENT: CHAPO PEREZ [place] [facility] [id number] AGE/SX: 57/F ROOM: RE02/03/[address]: Dr. David Oconnell DPM : 1965 BED: DIS: 02/03/2023 SPEC #: [id number] RECD: 02/03/23 12:36 STATUS: MARLA BURNS #: [id number] SILVER: 02/03/23 10:[address]: David Oconnell DEPT: SURGICAL PATHOLOGY RECD BY: Rosalina Taylor ENTERED: 02/03/23 12:56 SP TYPE: Wound OTHR DR: Dr. Fani Dugan MD Tissues: Foot, NOS Procedures: Surgery Specimen Level III HEADER OPERATION: Foot wound debridement with surgical graft site preparation PRE-OP DIAGNOSIS: Chronic left heel wound TISSUE SUBMITTED: Left heel wound MICROSCOPIC DIAGNOSIS Left heel wound, excision: Fragments of fibroadipose and fibroconnective tissue with fibrinous exudation and reactive changes. DONNA:eladio 02/06/2023 MICROSCOPIC DESCRIPTION Slides are reviewed. GROSS DESCRIPTION Received in fixative is one container labeled with the patient's name and designated left heel wound. The specimen consists of two pieces of hernández soft tissue measuring in aggregate 1.5 x 0.4 x 0.3 cm. The entire specimen is submitted in one cassette. / DONNA:eladio 02/03/2023 TC:5 CPT: 66610
[2023-02-03] MEDS: Cefazolin 2 GM in 0.9% Normal Saline 100 ML IV (11:17)
--- NOTE | 2023-02-03 11:28 | PCM.OPRPT ---
Problems Associated Problem List Diagnoses (1) Non-pressure chronic ulcer of other part of left foot with fat layer exposed: (2) Lupus (systemic lupus erythematosus): (3) Other hereditary and idiopathic neuropathies: Report of Operation Date of Procedure: 02/03/23 Pre-Operative Diagnosis: 1) Left heel wound, stable 2) peripheral polyneuropathy Post-Operative Diagnosis: same Surgery/Procedure Performed:: Excisional debridement of left heel wound down to subcutaneous tissue with surgical prep of the wound base and application overlying this Epicort graft. Description of Surgical Findings:: Patient has chronic left heel wound. All started after undergoing retrocalcaneal surgery on the left lower extremity previously by an outside physician. Patient is dealing with the wound approximately 1 year wound has increased in size over the past couple weeks. Wound has been devoid of any signs or symptoms of infection. Radiographs negative for any deep bone infection. Patient has lupus with skin treated by her primary care doctor. This may be contributing to the wounds worsening as patient has been compliant with maintaining nonweightbearing to that site. I believe that there is a possibility that her lupus is poorly controlled as her inflammatory labs are significantly elevated. If there is no improvement after debridement today we will consider additional MRI and bone biopsy and culture. Today decision was made to debride the wound with the Versajet debridement tool as well as application of ACell and Epicort grafts. Patient was brought back the operating placed comfortably in supine position on the operating table induced under general anesthesia. Left lower extremity was then scrubbed prepped draped using typical aseptic fashion. Once cleared by anesthesia was measured and noted to be 3 cm x 4 cm x 1 cm in size with a slight hyperkeratotic rim and 90% granular base with 10% fibrotic tissue. Scant drainage noted. The wound was then debrided using the Versajet debrider which also perform saline flushing throughout the debridement. Upon completion of debridement 100% granular base with clean skin edges were noted postdebridement measurement was noted to be 3.5 x 5 cm x 1.5 cm should be noted that the wound itself was excisionally debrided down to including level of subcutaneous tissue of all nonviable tissue using the Versajet debridement tool. Next wound site was flushed and using rongeurs soft tissue culture and biopsy were taken and sent to lab for further examination. Additional wound base prep was performed to allow for application of the graft. Application of 1000 cc of ACell were applied to the wound base mixed with saline solution to create a slushy/paste that was applied to the wound base. Then 2 x 3 cm epi cord graft were applied to the overlying wound wound itself. This was stabilized with overlying Mepitel Skin-Prep and Steri-Strips followed by Adaptic 4 x 4's Kerlix Kiran bandage and a well-padded posterior splint with the heel completely offloaded. No tourniquet used. No local due to neuropathy. Patient tolerated procedure and anesthesia well apparent satisfactory condition was transported to PACU vital signs stable vascular status intact all digits for further monitoring prior to discharge. Patient follow-up in 1 week maintain nonweightbearing. Surgeon: David Oconnell colliery clerk: None (natali solis) Type of Anesthesia: General Specimen's removed: Tissue left heel wound for culture and pathology Estimated Blood Loss (mL): Minimal Description of Procedure: See above Grafts/Implants Used: 2 x 3 cm epi cord , 1000 cc a cell Complications None Admit VTE Documentation VTE Present on Admission: Yes VTE Pharm Prophylaxis ordered?: Yes
[2023-02-03 11:34] VITALS: BP 125/77; BP 143/79; PULSE 105; RESP 14; TEMP 37.3; O2SAT 94
[2023-02-03 11:45] VITALS: BP 124/78; BP 143/79; PULSE 101; RESP 16; O2SAT 96
[2023-02-03 12:00] VITALS: BP 143/79; PULSE 97; RESP 16; O2SAT 97
[2023-02-03 12:01] VITALS: BP 122/76; BP 143/79; PULSE 93; RESP 16; TEMP 36.7; O2SAT 92
--- NOTE | 2023-02-03 12:05 | SUR.PHASEI ---
per Dr. keith simmons to order oxycodone 5 mg x1 po.
[2023-02-03] MEDS: oxyCODONE 5 MG Tablet PO (12:25)
[2023-02-03 13:21] VITALS: BP 126/72; BP 143/79; PULSE 90; RESP 16; O2SAT 98
== END 2023-02-03 13:22 | disposition home or self-care (01) ==
LOC: SDC 08:29 → AC 08:30
PROVIDERS: PCP Family Medicine; Referring Provider Podiatrist; Visit Provider Podiatrist
PROC: (CPT 15004; principal; 2023-02-03 09:45)
DX: L97.522 Non-pressure chronic ulcer of other part of left foot with fat layer exposed (principal); L97.512 Non-pressure chronic ulcer of other part of right foot with fat layer exposed; M32.9 Systemic lupus erythematosus, unspecified; M86.171 Other acute osteomyelitis, right ankle and foot; E66.01 Morbid (severe) obesity due to excess calories; G60.9 Hereditary and idiopathic neuropathy, unspecified; G62.9 Polyneuropathy, unspecified; G47.33 Obstructive sleep apnea (adult) (pediatric); Z79.82 Long term (current) use of aspirin; Z79.899 Other long term (current) drug therapy
CPT/HCPCS: 15004; 15275; 00400; 87015; 87070; 87075; 87077; 87102; 87116; 87176; 87186; 87205; 87206; 88304; J7120; J2405

== ENCOUNTER → 2023-02-28 | Outpatient (CLI) | payer MEDICARE, BC, SELFPAY ==
--- NOTE | 2023-02-28 18:15 | MRI_ITS ---
EXAM: MR LEFT LOWER EXTREMITY WITHOUT INTRAVENOUS CONTRAST, FOOT CLINICAL INDICATION: LEFT heel pain, non heeling ulcer plantar surface left heel, prior achilles surgery 3+ years ago TECHNIQUE: Multiplanar and multisequence MR images of the left foot without intravenous contrast. COMPARISON: No relevant prior studies available. FINDINGS: LIGAMENTS: MEDIAL COLLATERAL: Unremarkable. Intact. LATERAL COLLATERAL: Unremarkable. Intact. LISFRANC: Unremarkable. Intact. TENDONS: ACHILLES: Postsurgical changes of prior Achilles tendon repair with no evidence for a significant tearing. FLEXOR: Unremarkable. Intact. EXTENSOR: Unremarkable. Intact. PERONEAL: Peroneal tenosynovitis without tendon tearing. TIBIALIS ANTERIOR: Unremarkable. Intact. TIBIALIS POSTERIOR: Unremarkable. Intact. MUSCLES: Unremarkable. No edema or myositis. FLUID: Unremarkable. No joint effusion. SINUS TARSI: Sinus Tarsi is normal in signal and appearance. PLANTAR FASCIA: Mild thickening of the central cord of the plantar fascia. No evidence for active plantar fasciitis. BONES/JOINTS: Chronically torn anterior talofibular ligament. Osseous irregularity and thickening of the anterior tibiofibular ligament is compatible with prior injury to this ligamentous structure. OTHER SOFT TISSUES: Soft tissue ulceration at the inferior calcaneus with no phlegmon or abscess or marrow signal alteration of the osseous calcaneus at this level. MRI/Lower Ext Joint Only (Routine) IMPRESSION: 1. No osteomyelitis or abscess. 2. Peroneal tenosynovitis without tendon tearing. 3. Chronically torn anterior talofibular ligament. 4. Evidence of prior injury involving the anterior tibiofibular ligament. 5. Postsurgical changes of prior Achilles tendon repair with no evidence for any significant tearing. Electronically Signed: Smith Gallagher MD at 22:39 EDT ,
== END | disposition home or self-care (01) ==
LOC: MRI 17:47
PROVIDERS: PCP Family Medicine; Referring Provider Podiatrist; Visit Provider Podiatrist
DX: L97.522 Non-pressure chronic ulcer of other part of left foot with fat layer exposed (principal)
CPT/HCPCS: 73721

== ENCOUNTER 2023-03-30 12:19 | Inpatient (IN) | payer MEDICARE, BC, SELFPAY ==
[2023-03-30] VITALS (9 sets, daily range): BP systolic 97–120; BP diastolic 59–78; PULSE 115–131; RESP 18–35; TEMP 36.7–37.6; O2SAT 93–99; BMI 41.7; BMI 39.1
[2023-03-30 13:27] LABS: Erythrocyte Sedimentation Rate 94 mm/hr (0-30)
[2023-03-30 13:28] LABS: Absolute Lymphocyte Count 2.61 X10^3/uL (0.83-4.51); Absolute Neutrophil Count 16.3 X10^3/uL (2.0-7.7); Basophil# 0.05 X10^3/uL; Basophil% 0.2 % (0-1); Eosinophil# 0.25 X10^3/uL; Eosinophils% 1.2 % (0-5); Hematocrit 34.3 % (37-47); Lymphocyte # 2.61 X10^3/ul (0.83-4.51); Lymphocyte % 12.6 % (19-41); Mean Corp Hgb Conc 32.1 g/dL (32-36); Mean Corpuscular Hgb 26.8 pg (27.0-32.0); Mean Corpuscular Volume 83.7 fL (81-99); Mean Platelet Vol. 9.1 fl (6.2-12.0); Monocyte# 1.47 X10^3/uL; Monocyte% 7.1 % (0-10); NRBC Flagged by Analyzer 0 % (0-5); Neutrophil # 16.29 X10^3/uL (2.7-7.7); Neutrophil % 78.4 % (47-70); Platelet Count 385 K/mm3 (150-450); RBC Distribution Width CV 13.9 % (11.6-14.6); RBC Distribution Width SD 42.9 fl (35.1-43.9); White Blood Count 20.8 K/mm3 (4.4-11.0)
--- NOTE | 2023-03-30 13:29 | RAD_ITS ---
EXAM: XR LEFT FOOT COMPLETE, 3 OR MORE VIEWS CLINICAL INDICATION: infection TECHNIQUE: Frontal, lateral and oblique views of the left foot. COMPARISON: 02.28.23 mri, xr 08.02.22 FINDINGS: BONES/JOINTS: Fracture of the distal 5th phalanx at the proximal aspect. Soft tissue swelling around the foot. There is a calcaneal spur. There is an enthesophyte involving the posterior superior calcaneus at the site of insertion of the Achilles tendon. Preservation of the joint space. No sclerotic or destructive changes observed. SOFT TISSUES: Large plantar ulcer at the level of calcaneus. RAD/Foot min 3 Views IMPRESSION: 1. Fracture of the distal 5th phalanx at the proximal aspect. Soft tissue swelling around the foot. 2. Large plantar ulcer at the level of calcaneus. Electronically Signed: Juancho Novoa MD at 14:44 EDT Reading Location ID and State: [facility] / [place] , Service support ,
--- NOTE | 2023-03-30 13:29 | RAD_ITS ---
EXAM: XR CHEST, 1 VIEW CLINICAL INDICATION: weakness TECHNIQUE: Frontal view of the chest. COMPARISON: No relevant prior studies available. FINDINGS: LUNGS AND PLEURAL SPACES: Unremarkable. No consolidation or edema. No pneumothorax. No effusion. HEART: Unremarkable. Cardiac silhouette not enlarged. MEDIASTINUM: Central airways and mediastinal contour are unremarkable. BONES/JOINTS: Unremarkable. SOFT TISSUES: Unremarkable. RAD/Chest 1 View (Portable) IMPRESSION: No radiographic evidence of acute cardiopulmonary disease. Electronically Signed: Juancho Novoa MD at 14:44 EDT ,
[2023-03-30 13:31] LABS: ALB/GLOB Ratio 0.6 RATIO (0.9-2.4); AST(SGOT) 15 U/L (15-37); Alanine Aminotransfer ALT/SGPT 19 U/L (13-56); Albumin, Serum 2.9 g/dL (3.2-5.0); Alkaline Phosphatase 220 U/L (45-117); Anion Gap 5 (5-15); BUN 7 mg/dL (7-18); BUN/Creat Ratio 8.6 RATIO (10-20); Calcium,Total 9.3 mg/dL (8.5-10.1); Chloride 102 mmol/L (98-107); Creatinine, Serum 0.82 mg/dL (0.55-1.02); EST Glomerular Filtration Rate 76 mL/min (>60); Est Glom Filt Rate - Afr Amer 92 mL/min (>60); Estimated Creatinine Clearance 76.36 ml/min; Glucose 105 mg/dL (74-106); Potassium 3.5 mmol/L (3.5-5.1); Protein, Total 7.9 g/dL (6.4-8.2); Sodium Level 136 mmol/L (136-145)
[2023-03-30 13:45] LABS: Lactic Acid 0.8 mmol/L (0.4-1.9)
[2023-03-30] MEDS: 0.9% Normal Saline 1,000 ML 999 ML IV ×2 (13:45→15:29)
[2023-03-30 13:51] LABS: Troponin-I HS < 3 pg/mL (3.0-54.0)
[2023-03-30 14:05] LABS: International Normalized Ratio 1.1; Prothrombin Time (Protime)PT. 14.2 SECONDS (11.7-14.9)
[2023-03-30 14:34] LABS: Bacteria 0 SEEN /hpf (None Seen); Mucous, Urine 0 SEEN /hpf (<or=2+); Red Blood Cells-Urine 0 SEEN /hpf (0-5); White Blood Cells 0 SEEN /hpf (0-5)
[2023-03-30 14:42] LABS: Color, Urine Yellow (Yellow); Glucose, Dipstick Normal (Normal); Ketone-Dipstick Negative (Negative); Leukocyte Esterase-Dipstick Negative /ul (Negative); Nitrite-Dipstick Negative (Negative); Occult Blood-Urine 25 /ul (Negative); Protein-Dipstick 15 mg/dl (Negative); Urine Bilirubin Dipstick Negative (Negative); Urine Clarity Clear (Clear); Urine Urobilinogen Normal (Normal)
[2023-03-30 14:48] LABS: Squamous Epithelial Cells - UA 0-5 SEEN /hpf (5-10)
--- NOTE | 2023-03-30 15:10 | EX.ED.DYSGE1 ---
HPI History of Present Illness Chief Complaint: Cellulitis Narrative Narrative: 57-year-old female presenting with left foot cellulitis. Been being treated by this with Dr. Oconnell. She states it was previously outlined but now is getting worse. Is running up her anterior leg. He has more edema in the distal foot and the dorsum of the foot. She states has been drainage just under her left fifth toe. She states she had a fever of 103 at home. 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 She also has diabetic neuropathy. [facility] Medical History Ambulates with cane Arthritis Connective tissue disease CPAP (continuous positive airway pressure) dependence Fibromyalgia Heartburn History of IBS Lupus Non-smoker Sjogren syndrome with dental involvement Sjogren syndrome with keratoconjunctivitis Sjogren syndrome with peripheral nervous system involvement Walker as ambulation aid Wears contact lenses Wears glasses Home Medications cyclobenzaprine 10 mg tablet 10 mg PO TID 04/15/20 [History Last Taken Unknown] duloxetine 60 mg capsule,delayed release 60 mg PO BID 04/15/20 [History Last Taken Unknown] estradiol 1 mg tablet 1 mg PO DAILY 04/15/20 [History Last Taken Unknown] gabapentin 300 mg capsule 300 mg PO BID 04/15/20 [History Last Taken Unknown] hydroxychloroquine 200 mg tablet 200 mg PO BID 04/15/20 [History Last Taken Unknown] lorazepam 1 mg tablet 1 mg PO PRN PRN Anxiety 04/15/20 [History Last Taken Unknown] zolpidem 10 mg tablet 10 mg PO PCHS 04/15/20 [History Last Taken Unknown] aspirin 81 mg capsule 81 mg PO DAILY #20 caps 02/03/23 [Rx Last Taken Unknown] doxycycline monohydrate 100 mg capsule 100 mg PO BID #20 caps 02/03/23 [Rx Last Taken Unknown] oxycodone 5 mg capsule 5 mg PO Q6H PRN pain 7 days #28 caps 02/03/23 [Rx Last Taken Unknown] Allergy/AdvReac Type Severity Reaction Status Date / Time Gadolinium-MRI Contrast Allergy Intermediate Hives Verified 02/03/23 08:39 Medium [CONTRAST] Iodinated Contrast Media [CT] Allergy Rash Verified 02/03/23 08:39 morphine Allergy Hives Verified 02/03/23 08:39 sertraline [From Zoloft] Allergy Swelling Verified 02/03/23 08:39 Surgical History History of hysterectomy Hx of Achilles tendon repair Hx of cholecystectomy Social History Smoking Status: Never smoker ROS ROS ED Constitutional Constitutional ED: Reports chills and fever(s) Eyes Eyes: Denies change in vision ENT ENT ED: Denies rhinorrhea Cardiovascular Cardiovascular: Reports racing heartbeat; Denies chest pain Respiratory/Chest Respiratory/Chest: Denies cough or dyspnea Gastrointestinal Gastrointestinal: Reports nausea; Denies abdominal pain Genitourinary Genitourinary ED: Denies dysuria or hematuria Musculoskeletal Musculoskeletal: Denies arthralgias Integumentary Reports rash and other Details: Drainage under fifth toe left foot Neurologic Neurologic: Reports headache(s) Psychiatric Psychiatric: Denies anxiety or depression EXAM Physical Exam Const Vital Signs: 03/30/23 12:21 03/30/23 12:50 03/30/23 14:29 Temperature 98.7 F Temperature Source Temporal Pulse Rate 124 H 131 H Respiratory Rate 18 19 H Respiratory Pattern Tachypnea Blood Pressure 110/74 97/76 Blood Pressure Mean 86 83 Pulse Ox 98 95 Oxygen Delivery Method Room Air Room Air 03/30/23 13:23 03/30/23 14:54 Temperature 98.0 F 98.2 F Temperature Source Temporal Oral Pulse Rate 124 H 123 H Respiratory Rate 35 H 30 H Respiratory Pattern Blood Pressure 112/74 112/74 Blood Pressure Mean 86 86 Pulse Ox 97 93 Oxygen Delivery Method Room Air Room Air Positive well nourished and obese General Appearance ED: NAD Nutritional Appearance: obese HEENT Reports moist mucous membranes Eyes PERRL and EOMs intact bilaterally Resp normal respiratory effort and clear to auscultation bilaterally Auscultation: Negative for rales, rhonchi or wheezes Cardio regular rhythm Rate: tachycardic GI normal to inspection, nondistended, normoactive bowel sounds Neuro oriented x3 and CN's II-XII intact bilaterally Sensorium / Orientation: alert Psych mental status grossly normal Skin Skin Narrative: The plantar surface of the left foot has a small area which is draining underneath the fifth toe. There is edema of the dorsum of the left foot with lymphangitic streaking up the anterior tibia. There is increased warmth. No crepitance. There is also a large circular previous surgical incision on the heel which is about 4 cm and circular. MDM MDM MDM Narrative Medical decision making narrative: 57-year-old female presenting with history of fevers at home as well as cellulitis on the left foot. Patient tachycardic in the 120s. Sepsis work-up was pursued. Patient was pancultured. I started vancomycin and Zosyn after examining her foot. Patient was also given 2 L of normal saline. CBC shows a leukocytosis of 20.8. Hemoglobin hematocrit are stable. Platelets are normal. Renal function and electrolytes within normal limits. Lactic acid is normal at 0.8. Alkaline phosphatase was elevated at 220 otherwise LFTs are normal. CRP elevated to 56. ESR elevated at 94. EKG was obtained to assess her tachycardia and appears to be a sinus tachycardia with a ventricular rate of 123 bpm on my interpretation. Chest x-ray was obtained to rule out pneumonia, interpretation this shows no acute cardiopulmonary process. Images of the left foot show a fracture of the distal fifth phalanx of the left foot and soft tissue swelling. Urinalysis was negative for infection. PT/INR normal. High-sensitivity troponin was less than 3. Discussed with Dr. Underwood who came to assess the patient. A wound culture was sent from the fifth toe. Dr. Underwood believes she might of osteomyelitis. Requested the hospitalist to be the admitting provider as she is septic. I spoke with the hospitalist who did admit the patient. Impression: 1. Cellulitis left foot 2. Left fifth toe distal phalanx fracture 3. Sepsis Lab Data Labs: Laboratory Results - last 24 hr 03/30/23 03/30/23 03/30/23 12:55 12:55 12:55 WBC 20.8 H RBC 4.10 L Hgb 11.0 L Hct 34.3 L MCV 83.7 MCH 26.8 L MCHC 32.1 RDW Std Deviation 42.9 RDW Coeff of Jennifer 13.9 Plt Count 385 MPV 9.1 Immature Gran % (Auto) 0.500 Neut % (Auto) 78.4 H Lymph % (Auto) 12.6 L Foster % (Auto) 7.1 Eos % (Auto) 1.2 Baso % (Auto) 0.2 Absolute Neuts (auto) 16.3 H Absolute Lymphs (auto) 2.61 Nucleated RBC % 0 ESR 94 H PT INR Sodium 136 Potassium 3.5 Chloride 102 Carbon Dioxide 29.0 Anion Gap 5 BUN 7 Creatinine 0.82 Estim Creat Clear Calc 76.36 Est GFR (MDRD) Af Amer 92 Est GFR (MDRD) Non-Af 76 BUN/Creatinine Ratio 8.6 L Glucose 105 Lactic Acid 0.8 Calcium 9.3 Total Bilirubin 0.50 AST 15 ALT 19 Alkaline Phosphatase 220 H Troponin I High Sens C-React Prot Ext Range 256.00 H Total Protein 7.9 Albumin 2.9 L Globulin 5.0 H Albumin/Globulin Ratio 0.6 L Urine Color Urine Clarity Urine pH Ur Specific [place] Urine Protein Urine Glucose (UA) Urine Ketones Urine Occult Blood Urine Nitrite Urine Bilirubin Urine Urobilinogen Ur Leukocyte Esterase Urine RBC Urine WBC Ur Squamous Epith Cells Urine Bacteria Urine Mucus 03/30/23 03/30/23 03/30/23 12:55 13:40 14:30 WBC RBC Hgb Hct MCV MCH MCHC RDW Std Deviation RDW Coeff of Jennifer Plt Count MPV Immature Gran % (Auto) Neut % (Auto) Lymph % (Auto) [place] % (Auto) Eos % (Auto) Baso % (Auto) Absolute Neuts (auto) Absolute Lymphs (auto) Nucleated RBC % ESR PT 14.2 INR 1.1 Sodium Potassium Chloride Carbon Dioxide Anion Gap BUN Creatinine Estim Creat Clear Calc Est GFR (MDRD) Af Amer Est GFR (MDRD) Non-Af BUN/Creatinine Ratio Glucose Lactic Acid Calcium Total Bilirubin AST ALT Alkaline Phosphatase Troponin I High Sens < 3 L C-React Prot Ext Range Total Protein Albumin Globulin Albumin/Globulin Ratio Urine Color Yellow Urine Clarity Clear Urine pH 6.0 Ur Specific [place] 1.010 Urine Protein 15 H Urine Glucose (UA) Normal Urine Ketones Negative Urine Occult Blood 25 H Urine Nitrite Negative Urine Bilirubin Negative Urine Urobilinogen Normal Ur Leukocyte Esterase Negative Urine RBC 0 SEEN Urine WBC 0 SEEN Ur Squamous Epith Cells 0-5 SEEN Urine Bacteria 0 SEEN Urine Mucus 0 SEEN Radiography Diagnostic Testing: Clinical Impression(s) from Imaging Studies Chest X-Ray 03/30/23 13:29 IMPRESSION: No radiographic evidence of acute cardiopulmonary disease. Electronically Signed: Juancho Novoa MD at 14:44 EDT , Foot X-Ray 03/30/23 13:29 IMPRESSION: 1. Fracture of the distal 5th phalanx at the proximal aspect. Soft tissue swelling around the foot. 2. Large plantar ulcer at the level of calcaneus. Electronically Signed: Juancho Novoa MD at 14:44 EDT , Discharge Plan Triage Chief Complaint: Cellulitis ED Provider: Mitul Kumari Dx/Rx/DC Orders Primary Care Provider: Fani Dugan
--- NOTE | 2023-03-30 15:20 | PCM.CONS.GEN ---
Assessment & Plan Assessment/Plan (1) Cellulitis of left lower limb: (2) Other hereditary and idiopathic neuropathies: (3) Osteomyelitis of toe of left foot: PLAN: Plan Evaluation performed. Reviewed diagnostic data. Clinically there is infection to the left 5th toe and foot, with concern for osteomyelitis left 5th toe. This was discussed with her and her family which was with her today. Ordered MRI for further evaluation. We discussed possible surgical debridement and amputation of the left 5th toe pending MRI results. A culture was obtained from left 5th toe ulceration and sent to microbiology. She has been started on IV antibiotics. Patient will be admitted to hospital medicine. Wound care left foot for now - betadine soln, gauze, kerlix and trang dressing - change daily. Podiatry will continue to follow, thank you for consultation. HPI Consult Data Date of Consult: 03/30/23 HPI Narrative Reason for Consultation: Left 5th toe ulcer and infection HPI Narrative: CHAPO PEREZ, is a 57 F who presents with ulceration which is draining from left 5th toe with redness and swelling. WBC elevated, ESR and CRP elevated. Left foot xrays noted to have fracture vs erosion of the 5th toe. She has been following with Dr. Oconnell for plantar left heel ulceration which is chronic - recently had MRI and no osteomyelitis to the left heel, but left 5th toe ulcer is new. She was suppose to be nonweightbearing but she relates I am a bad patient and she relates she put on sandals over weekend and was walking on the beach. She believes this is what caused the ulcer on the left 5th toe. She relates she is not feeling well, and she is here with her daughter who relates she is disoriented. Patient is resting in bed in ER. I was consulted by ER physician Dr. Kumari. [facility] Medical History Ambulates with cane Arthritis Connective tissue disease CPAP (continuous positive airway pressure) dependence Fibromyalgia Heartburn History of IBS Lupus Non-smoker Sjogren syndrome with dental involvement Sjogren syndrome with keratoconjunctivitis Sjogren syndrome with peripheral nervous system involvement Walker as ambulation aid Wears contact lenses Wears glasses Home Medications cyclobenzaprine 10 mg tablet 10 mg PO TID 04/15/20 [History Last Taken Unknown] duloxetine 60 mg capsule,delayed release 60 mg PO BID 04/15/20 [History Last Taken Unknown] estradiol 1 mg tablet 1 mg PO DAILY 04/15/20 [History Last Taken Unknown] gabapentin 300 mg capsule 300 mg PO BID 04/15/20 [History Last Taken Unknown] hydroxychloroquine 200 mg tablet 200 mg PO BID 04/15/20 [History Last Taken Unknown] lorazepam 1 mg tablet 1 mg PO PRN PRN Anxiety 04/15/20 [History Last Taken Unknown] zolpidem 10 mg tablet 10 mg PO PCHS 04/15/20 [History Last Taken Unknown] aspirin 81 mg capsule 81 mg PO DAILY #20 caps 02/03/23 [Rx Last Taken Unknown] doxycycline monohydrate 100 mg capsule 100 mg PO BID #20 caps 02/03/23 [Rx Last Taken Unknown] oxycodone 5 mg capsule 5 mg PO Q6H PRN pain 7 days #28 caps 02/03/23 [Rx Last Taken Unknown] Allergy/AdvReac Type Severity Reaction Status Date / Time Gadolinium-MRI Contrast Allergy Intermediate Hives Verified 02/03/23 08:39 Medium [CONTRAST] Iodinated Contrast Media [CT] Allergy Rash Verified 02/03/23 08:39 morphine Allergy Hives Verified 02/03/23 08:39 sertraline [From Zoloft] Allergy Swelling Verified 02/03/23 08:39 Surgical History History of hysterectomy Hx of Achilles tendon repair Hx of cholecystectomy Social History Smoking Status: Never smoker Physical Exam Narrative Left foot 5th toe with ulceration to the ID space which probes to bone of the 5th toe, there is serous drainage, there is ulceration to the dorsal PIPJ of the 5th toe as well down to subcutaneous tissue, there is erythema and edema to the left foot, there is ulceration plantar left heel down to subcutaneous tissue with granular base and viable margins and no evidence of infection to the heel at this time. CFT < 2 seconds to all toes on left foot and vascular status intact to the left foot, peripheral neuropathy present to the left foot - chronic. Contracture of lesser toes left foot - chronic. No POP or pain on ROM to the foot or ankle. Left foot xrays from 03/30/23 - there is noted to be findings c/w erosion to the head of the 5th toe proximal phalanx laterally, there is abnormall middle phalanx as well, no gas is noted. Const alert, oriented x3 and no apparent distress Lab / Micro Data Result Diagrams: 03/30/23 12:55 03/30/23 12:55 Labs: Laboratory Results - last 24 hr 03/30/23 12:55: WBC 20.8 H, RBC 4.10 L, Hgb 11.0 L, Hct 34.3 L, MCV 83.7, MCH 26.8 L, MCHC 32.1, RDW Std Deviation 42.9, RDW Coeff of Jennifer 13.9, Plt Count 385, MPV 9.1, Immature Gran % (Auto) 0.500, Neut % (Auto) 78.4 H, Lymph % (Auto) 12.6 L, Cole % (Auto) 7.1, Eos % (Auto) 1.2, Baso % (Auto) 0.2, Absolute Neuts (auto) 16.3 H, Absolute Lymphs (auto) 2.61, Nucleated RBC % 0, ESR 94 H 03/30/23 12:55: Sodium 136, Potassium 3.5, Chloride 102, Carbon Dioxide 29.0, Anion Gap 5, BUN 7, Creatinine 0.82, Estim Creat Clear Calc 76.36, Est GFR (MDRD) Af Amer 92, Est GFR (MDRD) Non-Af 76, BUN/Creatinine Ratio 8.6 L, Glucose 105, Calcium 9.3, Total Bilirubin 0.50, AST 15, ALT 19, Alkaline Phosphatase 220 H, C-React Prot Ext Range 256.00 H, Total Protein 7.9, Albumin 2.9 L, Globulin 5.0 H, Albumin/Globulin Ratio 0.6 L 03/30/23 12:55: Lactic Acid 0.8 03/30/23 12:55: Troponin I High Sens < 3 L 03/30/23 13:40: PT 14.2, INR 1.1 03/30/23 14:30: Urine Color Yellow, Urine Clarity Clear, Urine pH 6.0, Ur Specific [place] 1.010, Urine Protein 15 H, Urine Glucose (UA) Normal, Urine Ketones Negative, Urine Occult Blood 25 H, Urine Nitrite Negative, Urine Bilirubin Negative, Urine Urobilinogen Normal, Ur Leukocyte Esterase Negative, Urine RBC 0 SEEN, Urine WBC 0 SEEN, Ur Squamous Epith Cells 0-5 SEEN, Urine Bacteria 0 SEEN, Urine Mucus 0 SEEN Radiology Impression Chest X-Ray 03/30/23 13:29 IMPRESSION: No radiographic evidence of acute cardiopulmonary disease. Electronically Signed: Juancho Novoa MD at 14:44 EDT , Foot X-Ray 03/30/23 13:29 IMPRESSION: 1. Fracture of the distal 5th phalanx at the proximal aspect. Soft tissue swelling around the foot. 2. Large plantar ulcer at the level of calcaneus. Electronically Signed: Juancho Novoa MD at 14:44 EDT ,
--- NOTE | 2023-03-30 15:54 | HP.PCM_ITS ---
HPI - General General Date of Admission: 03/30/23 Date of Service: 03/30/23 Chief Complaint: Fever, Chills, feeling unwell and left toe wound with drainage HPI Yoandy PEREZ, is a 57 F with a history of SLE and peripheral neuropathy and chronic nonhealing ulcer involving the left heel. Patient follows up with podiatry as an outpatient. Patient presents with 2 to 3 days history of high- grade fever, malaise, chills and anorexia. Also noted a wound in the fourth webspace closer to the fifth toe that has been draining. Found to have tachycardia, leukocytosis markedly elevated sed rate and CRP in the emergency department and has been started on IV fluids and IV antibiotics. Plain x-ray of the foot showed fracture of the distal fifth phalanx proximally. Podiatry surgeon just rounding up with patient and foot has been dressed. [facility] Medical History Ambulates with cane Arthritis Connective tissue disease CPAP (continuous positive airway pressure) dependence Fibromyalgia Heartburn History of IBS Lupus Non-smoker Sjogren syndrome with dental involvement Sjogren syndrome with keratoconjunctivitis Sjogren syndrome with peripheral nervous system involvement Walker as ambulation aid Wears contact lenses Wears glasses Home Medications cyclobenzaprine 10 mg tablet 10 mg PO TID 04/15/20 [History Last Taken Unknown] duloxetine 60 mg capsule,delayed release 60 mg PO BID 04/15/20 [History Last Taken Unknown] estradiol 1 mg tablet 1 mg PO DAILY 04/15/20 [History Last Taken Unknown] gabapentin 300 mg capsule 300 mg PO BID 04/15/20 [History Last Taken Unknown] hydroxychloroquine 200 mg tablet 200 mg PO BID 04/15/20 [History Last Taken Unknown] lorazepam 1 mg tablet 1 mg PO PRN PRN Anxiety 04/15/20 [History Last Taken Unknown] zolpidem 10 mg tablet 10 mg PO PCHS 04/15/20 [History Last Taken Unknown] aspirin 81 mg capsule 81 mg PO DAILY #20 caps 02/03/23 [Rx Last Taken Unknown] doxycycline monohydrate 100 mg capsule 100 mg PO BID #20 caps 02/03/23 [Rx Last Taken Unknown] oxycodone 5 mg capsule 5 mg PO Q6H PRN pain 7 days #28 caps 02/03/23 [Rx Last Taken Unknown] Allergy/AdvReac Type Severity Reaction Status Date / Time Gadolinium-MRI Contrast Allergy Intermediate Hives Verified 02/03/23 08:39 Medium [CONTRAST] Iodinated Contrast Media [CT] Allergy Rash Verified 02/03/23 08:39 morphine Allergy Hives Verified 02/03/23 08:39 sertraline [From Zoloft] Allergy Swelling Verified 02/03/23 08:39 Surgical History History of hysterectomy Hx of Achilles tendon repair Hx of cholecystectomy Social History Smoking Status: Never smoker ROS ROS Narrative Denies any chest pain or shortness of breath. All other systems reviewed and essentially negative as above in the body of the history. Vital Signs Vital Signs Vital Signs: 03/30/23 12:21 03/30/23 12:50 03/30/23 14:29 Temperature 37.1 C Temperature Source Temporal Pulse Rate 124 H 131 H Respiratory Rate 18 19 H Respiratory Pattern Tachypnea Blood Pressure 110/74 97/76 Blood Pressure Mean 86 83 Pulse Ox 98 95 Oxygen Delivery Method Room Air Room Air 03/30/23 13:23 03/30/23 14:54 03/30/23 15:40 Temperature 36.7 C 36.8 C 47.7 C H Temperature Source Temporal Oral Oral Pulse Rate 124 H 123 H 118 H Respiratory Rate 35 H 30 H 30 H Respiratory Pattern Blood Pressure 112/74 112/74 120/78 Blood Pressure Mean 86 86 92 Pulse Ox 97 93 93 Oxygen Delivery Method Room Air Room Air Room Air Weight Weight: 124.466 kg Body Mass Index (BMI) 41.7 Physical Exam Narrative General exam. Middle-aged woman, morbidly obese, acutely ill-appearing, anxious appearing, depressed appearing, slightly tearful HEENT. Oral mucosa is dry, no pallor or jaundice. Neck. Neck supple Heart. First and second heart sounds heard but is tachycardic. Lungs. Clear to auscultation anteriorly and posteriorly Abdomen. Obese moves with respiration and nontender. [employer]. Conscious alert and oriented x3. Cranial nerves II to XII grossly intact. Extremities. Dressing of the left foot. Results Medical Records Data Attestation: I reviewed the patient's medical records Lab / Micro Data Attestation: I reviewed the patient's lab results. Result Diagrams: 03/30/23 12:55 03/30/23 12:55 Labs: Laboratory Results - last 24 hr 03/30/23 12:55: WBC 20.8 H, RBC 4.10 L, Hgb 11.0 L, Hct 34.3 L, MCV 83.7, MCH 26.8 L, MCHC 32.1, RDW Std Deviation 42.9, RDW Coeff of Jennifer 13.9, Plt Count 385, MPV 9.1, Immature Gran % (Auto) 0.500, Neut % (Auto) 78.4 H, Lymph % (Auto) 12.6 L, [place] % (Auto) 7.1, Eos % (Auto) 1.2, Baso % (Auto) 0.2, Absolute Neuts (auto) 16.3 H, Absolute Lymphs (auto) 2.61, Nucleated RBC % 0, ESR 94 H 03/30/23 12:55: Sodium 136, Potassium 3.5, Chloride 102, Carbon Dioxide 29.0, Anion Gap 5, BUN 7, Creatinine 0.82, Estim Creat Clear Calc 76.36, Est GFR (MDRD) Af Amer 92, Est GFR (MDRD) Non-Af 76, BUN/Creatinine Ratio 8.6 L, Glucose 105, Calcium 9.3, Total Bilirubin 0.50, AST 15, ALT 19, Alkaline Phosphatase 220 H, C-React Prot Ext Range 256.00 H, Total Protein 7.9, Albumin 2.9 L, Globulin 5.0 H, Albumin/Globulin Ratio 0.6 L 03/30/23 12:55: Lactic Acid 0.8 03/30/23 12:55: Troponin I High Sens < 3 L 03/30/23 13:40: PT 14.2, INR 1.1 03/30/23 14:30: Urine Color Yellow, Urine Clarity Clear, Urine pH 6.0, Ur Specific [place] 1.010, Urine Protein 15 H, Urine Glucose (UA) Normal, Urine Ketones Negative, Urine Occult Blood 25 H, Urine Nitrite Negative, Urine Bilirubin Negative, Urine Urobilinogen Normal, Ur Leukocyte Esterase Negative, Urine RBC 0 SEEN, Urine WBC 0 SEEN, Ur Squamous Epith Cells 0-5 SEEN, Urine Bacteria 0 SEEN, Urine Mucus 0 SEEN Radiology Impression Chest X-Ray 03/30/23 13:29 IMPRESSION: No radiographic evidence of acute cardiopulmonary disease. Electronically Signed: Juancho Novoa MD at 14:44 EDT , Foot X-Ray 03/30/23 13:29 IMPRESSION: 1. Fracture of the distal 5th phalanx at the proximal aspect. Soft tissue swelling around the foot. 2. Large plantar ulcer at the level of calcaneus. Electronically Signed: Juancho Novoa MD at 14:44 EDT , Assessment & Plan Assessment/Plan (1) Osteomyelitis of toe of left foot: PLAN: Plan 1. Sepsis. Secondary to infected neuropathic ulcer involving the left foot. Will admit patient to the hospital. Cultures have been obtained. Lactic acid not elevated. Start on IV antibiotic with Zosyn and vancomycin. We will continue. Podiatry surgery consulted. Patient has received 2 L of normal saline bolus. We will give another liter of lactated Ringer's. Keep on telemetry in the PCU. 2. Infected neuropathic ulcer involving the fifth toe with likely underlying acute osteomyelitis. Noted markedly elevated CRP and sed rate. Podiatry surgery on board and planning for surgery which would involve debridement and likely to amputation tomorrow morning. Wound swab obtained at the bedside by podiatry. Follow-up on cultures. We will look for deep tissue and bone cultures from surgery. Minimal MRI of the foot with contrast ordered. Directly confirmed with patient and patient does not have an allergy to gadolinium and she has received this in the past without any adverse effects. 3. Morbid obesity. Lifestyle modifications as able. 4. Peripheral neuropathy. Unclear etiology. 5. Systemic lupus erythematosus. Clinically stable at this time. Charges/Coding Visit Charges Inpatient E&M: 60975 Init Hosp L3
--- NOTE | 2023-03-30 16:29 | PCM.RX.CS ---
Consult Pharmacy has been consulted to manage selected antiobiotic: Vancomycin Type of Consult: New start Suspected Infection: Sepsis, Skin/Soft tissue Labs: Sodium 136 mmol/L (136-145) 03/30/23 12:55 Potassium 3.5 mmol/L (3.5-5.1) 03/30/23 12:55 Chloride 102 mmol/L (98-107) 03/30/23 12:55 Carbon Dioxide 29.0 mmol/L (21.0-32.0) 03/30/23 12:55 Anion Gap 5 (5-15) 03/30/23 12:55 BUN 7 mg/dL (7-18) 03/30/23 12:55 Creatinine 0.82 mg/dL (0.55-1.02) 03/30/23 12:55 Est GFR (MDRD) Af Amer 92 mL/min (>60) 03/30/23 12:55 Est GFR (MDRD) Non-Af 76 mL/min (>60) 03/30/23 12:55 BUN/Creatinine Ratio 8.6 RATIO (10-20) L 03/30/23 12:55 Glucose 105 mg/dL (74-106) 03/30/23 12:55 Goal Trough: 15-20 mcg/mL Pharmacy Plan for Drug Dosing: NEW START IV VANCOMYCIN Consulting Physician: Dr. Tika Echols Indication: Sepsis/ Cellulitis Goal Trough: 15-20 SrCr: 0.82 CrCl: 105 mL/min using AdjBW Comments: Initial dose of vancomycin 2000mg IV x1 ordered and administered in ED 03/30 @1529 Vancomycin Dose: 1500mg IV Q8h to start 03/30/23 @2300 Pending Level: 03/31/23 @1430, prior to 4th total dose per protocol Pharmacy Service will continue to monitor and adjust dosing as required.
[2023-03-30] MEDS: Contrast Allergy Safety Check IV (17:02)
[2023-03-30] MEDS: Lactated Ringers 1,000 ML 999 ML IV (17:07)
[2023-03-30] MEDS: KCL 20MEQ in 0.9% NS 20 MEQ/1,000 ML IV.SOLN. 125 MEQ IV (18:16)
[2023-03-30] MEDS: LORazepam 1 MG Tablet PO (20:48)
[2023-03-30 22:02] LABS: M R Staph aureus DNA By PCR POSITIVE (Negative); Probe Check PASS; Staph aureus DNA By PCR POSITIVE (Negative)
[2023-03-30] MEDS: Ensure Plus High Protein 120 ML LIQUID PO (22:48)
[2023-03-30] MEDS: Zolpidem Tartrate 5 MG Tablet PO (22:49)
[2023-03-30] MEDS: Gabapentin 300 MG Capsule PO (22:49)
[2023-03-30] MEDS: cycloBENZAPRine HCl 10 MG Tablet PO (22:49)
[2023-03-30] MEDS: Enoxaparin 40 MG/0.4 ML Syringe SC (22:49)
[2023-03-30] MEDS: DULoxetine Hcl 60 MG Capsule PO (22:49)
[2023-03-30] MEDS: Hydroxychloroquine 200 MG Tablet PO (22:50)
[2023-03-31] VITALS (14 sets, daily range): BP systolic 103–128; BP diastolic 61–78; PULSE 75–103; RESP 16–24; TEMP 36.1–36.9; O2SAT 88–96; BMI 37.8
[2023-03-31] MEDS: KCL 20MEQ in 0.9% NS 20 MEQ/1,000 ML IV.SOLN. 125 MEQ IV ×3 (04:40→17:55)
[2023-03-31 05:39] LABS: Absolute Lymphocyte Count 2.59 X10^3/uL (0.83-4.51); Absolute Neutrophil Count 10.3 X10^3/uL (2.0-7.7); Basophil# 0.07 X10^3/uL; Basophil% 0.5 % (0-1); Eosinophil# 0.41 X10^3/uL; Eosinophils% 2.8 % (0-5); Hematocrit 27.5 % (37-47); Hemoglobin 8.7 g/dL (12.0-15.0); Lymphocyte # 2.59 X10^3/ul (0.83-4.51); Lymphocyte % 17.6 % (19-41); Mean Corp Hgb Conc 31.6 g/dL (32-36); Mean Corpuscular Hgb 26.9 pg (27.0-32.0); Mean Corpuscular Volume 84.9 fL (81-99); Mean Platelet Vol. 8.8 fl (6.2-12.0); Monocyte# 1.24 X10^3/uL; Monocyte% 8.4 % (0-10); NRBC Flagged by Analyzer 0 % (0-5); Neutrophil # 10.33 X10^3/uL (2.7-7.7); Neutrophil % 70.1 % (47-70); Platelet Count 305 K/mm3 (150-450); RBC Distribution Width CV 14.1 % (11.6-14.6); RBC Distribution Width SD 43.8 fl (35.1-43.9); Red Blood Count 3.24 M/mm3 (4.2-5.4); White Blood Count 14.7 K/mm3 (4.4-11.0)
[2023-03-31] MEDS: cycloBENZAPRine HCl 10 MG Tablet PO ×2 (05:47→21:42)
[2023-03-31 05:51] LABS: Partial Thromboplast Time 33.7 Seconds (24.1-36.2)
[2023-03-31 06:08] LABS: ALB/GLOB Ratio 0.6 RATIO (0.9-2.4); AST(SGOT) 23 U/L (15-37); Alanine Aminotransfer ALT/SGPT 17 U/L (13-56); Albumin, Serum 2.2 g/dL (3.2-5.0); Alkaline Phosphatase 202 U/L (45-117); Anion Gap 3 (5-15); BUN 5 mg/dL (7-18); BUN/Creat Ratio 8.9 RATIO (10-20); Chloride 112 mmol/L (98-107); Creatinine, Serum 0.56 mg/dL (0.55-1.02); EST Glomerular Filtration Rate 118 mL/min (>60); Est Glom Filt Rate - Afr Amer 143 mL/min (>60); Estimated Creatinine Clearance 107.78 ml/min; Globulin 3.9 g/dL (2.2-4.2); Glucose 88 mg/dL (74-106); Potassium 3.5 mmol/L (3.5-5.1); Protein, Total 6.1 g/dL (6.4-8.2); Sodium Level 140 mmol/L (136-145)
--- NOTE | 2023-03-31 06:59 | RAD_ITS ---
INDICATION: PREOP -- surgery this am EXAMINATION/TECHNIQUE: X-RAY - XR Chest 1 View COMPARISON: March 30, 2023 FINDINGS: LINES/DEVICES: None. LUNGS: No consolidation, edema or effusion. No pneumothorax. MEDIASTINUM AND CARDIOVASCULAR STRUCTURES: Cardiac silhouette not enlarged. Central airways and mediastinal contour are unremarkable. BONES AND SOFT TISSUES: Unremarkable. RAD/Chest 1 View (Portable) IMPRESSION: No radiographic evidence of acute cardiopulmonary disease. Electronically Signed: David Urban, at 7:29 EDT ,
--- NOTE | 2023-03-31 09:00 | MRI_ITS ---
STUDY: MRI LEFT MIDFOOT REASON FOR EXAM: Female, 57 years old. osteomyelitis 5th toe, PT MEDICATED- STILL UNABLE TO HOLD STILL TECHNIQUE: Standardized fat and water weighted pulse sequences were obtained in all 3 orthogonal planes. COMPARISON: X-ray of the left foot dated March 30, 2023 FINDINGS: Significant motion artifact is present, which limits evaluation. The middle phalanx of the fifth digit is a small fragment with areas of chronic erosion, but is without active marrow edema on the current study as seen on images 26/27 series 7 and on the axial sequence series 6. Otherwise there is no demonstrated marrow edema or cortical erosion or bony destruction in the remaining structures of the forefoot. Moderate subcutaneous edema is present around the forefoot. There is also diffuse edematous/increased T2 signal throughout the foot muscles which are moderately atrophied consistent with sequela of chronic neuropathy. No subcutaneous or intramuscular abscess is seen. Normal talonavicular articulation. Normal calcaneocuboid articulation. Normal navicular-cuneiform articulations. Normal intercuneiform articulations. Normal first tarsometatarsal articulation. Normal Lisfranc ligament. Normal second and third tarsometatarsal articulations. Normal cuboid fourth and cuboid fifth tarsometatarsal articulation. Normal first through fifth metatarsi. Normal tibialis anterior tendon. Normal extensor hallucis longus tendon. Normal extensor digitorum longus tendons. Normal peroneus longus tendon and distal insertion. Normal peroneus brevis tendon and distal insertion. MRI/Lower Ext/No Jt/w/o IMPRESSION: 1. The middle phalanx of the fifth digit is a small fragment with areas of chronic erosion, but is without active marrow edema on the current study as seen on images 26/27 series 7 and on the axial sequence 14/ series 6. Otherwise there is no demonstrated marrow edema or cortical erosion or bony destruction in the remaining structures of the forefoot. 2. Moderate subcutaneous edema is present around the forefoot. There is also diffuse edematous/increased T2 signal throughout the foot muscles which are moderately atrophied consistent with sequela of chronic neuropathy. No subcutaneous or intramuscular abscess is seen. 3. If concern for osteomyelitis persists repeat MR evaluation with only a single STIR coronal or sagittal sequence only, with hopes of avoiding motion artifact or correlate with a nuclear medicine bone scan Electronically Signed: Brenden Ellis MD at 12:39 EDT ,
[2023-03-31] MEDS: 0.9% Saline Lock 10 ML Syringe IV ×2 (09:17→09:22)
[2023-03-31] MEDS: Ondansetron 4 MG/2 ML Vial IV (09:17)
[2023-03-31] MEDS: LORazepam 2 MG/ML Syringe IV (09:22)
--- NOTE | 2023-03-31 09:25 | WOUNDNOTE ---
wound photo: left foot
--- NOTE | 2023-03-31 09:26 | WOUNDNOTE ---
wound photo: left foot
--- NOTE | 2023-03-31 09:27 | WOUNDNOTE ---
wound photo: left heel
--- NOTE | 2023-03-31 10:48 | PN.HOSP_ITS ---
Subjective Subjective Doing well, no major issues overnight Objective Data Objective Data Vital Signs: Vital Signs Temp Pulse Resp BP Pulse Ox O2 Del Method 98.1 F 103 H 20 H 128/74 H 92 Room Air 03/31/23 04:35 03/31/23 10:13 03/31/23 10:13 03/31/23 10:13 03/31/23 10:13 03/31/23 10:13 Oxygen Delivery Method Room Air Weight: 250 lb Body Mass Index (BMI) 39.1 Intake & Output: Intake and Output for Last 24 Hours 03/30/23 03/31/23 04/01/23 03:59 03:59 03:59 Intake Total 4410 / 4410 790.42 / 790.42 Output Total 350 / 350 Balance 4410 / 4410 440.42 / 440.42 Lab / Micro Data Result Diagrams: 03/31/23 05:30 03/31/23 05:30 Labs: Laboratory Results - last 24 hr 03/30/23 12:55: WBC 20.8 H, RBC 4.10 L, Hgb 11.0 L, Hct 34.3 L, MCV 83.7, MCH 26.8 L, MCHC 32.1, RDW Std Deviation 42.9, RDW Coeff of Jennifer 13.9, Plt Count 385, MPV 9.1, Immature Gran % (Auto) 0.500, Neut % (Auto) 78.4 H, Lymph % (Auto) 12.6 L, [place] % (Auto) 7.1, Eos % (Auto) 1.2, Baso % (Auto) 0.2, Absolute Neuts (auto) 16.3 H, Absolute Lymphs (auto) 2.61, Nucleated RBC % 0, ESR 94 H 03/30/23 12:55: Sodium 136, Potassium 3.5, Chloride 102, Carbon Dioxide 29.0, Anion Gap 5, BUN 7, Creatinine 0.82, Estim Creat Clear Calc 76.36, Est GFR ( MDRD) Af Amer 92, Est GFR (MDRD) Non-Af 76, BUN/Creatinine Ratio 8.6 L, Glucose 105, Calcium 9.3, Total Bilirubin 0.50, AST 15, ALT 19, Alkaline Phosphatase 220 H, C-React Prot Ext Range 256.00 H, Total Protein 7.9, Albumin 2.9 L, Globulin 5.0 H, Albumin/Globulin Ratio 0.6 L 03/30/23 12:55: Lactic Acid 0.8 03/30/23 12:55: Troponin I High Sens < 3 L 03/30/23 13:40: PT 14.2, INR 1.1 03/30/23 14:30: Urine Color Yellow, Urine Clarity Clear, Urine pH 6.0, Ur Specific [place] 1.010, Urine Protein 15 H, Urine Glucose (UA) Normal, Urine Ketones Negative, Urine Occult Blood 25 H, Urine Nitrite Negative, Urine Bilirubin Negative, Urine Urobilinogen Normal, Ur Leukocyte Esterase Negative, Urine RBC 0 SEEN, Urine WBC 0 SEEN, Ur Squamous Epith Cells 0-5 SEEN, Urine Bacteria 0 SEEN, Urine Mucus 0 SEEN 03/30/23 15:00: S.aureus Protein A PCR POSITIVE H, MRSA (PCR) POSITIVE H 03/31/23 05:30: WBC 14.7 H, RBC 3.24 L, Hgb 8.7 L, Hct 27.5 L, MCV 84.9, MCH 26.9 L, MCHC 31.6 L, RDW Std Deviation 43.8, RDW Coeff of Jennifer 14.1, Plt Count 305, MPV 8.8, Immature Gran % (Auto) 0.600, Neut % (Auto) 70.1 H, Lymph % (Auto) 17.6 L, [place] % (Auto) 8.4, Eos % (Auto) 2.8, Baso % (Auto) 0.5, Absolute Neuts (auto) 10.3 H, Absolute Lymphs (auto) 2.59, Nucleated RBC % 0 03/31/23 05:30: Sodium 140, Potassium 3.5, Chloride 112 H, Carbon Dioxide 25.0, Anion Gap 3 L, BUN 5 L, Creatinine 0.56, Estim Creat Clear Calc 107.78, Est GFR (MDRD) Af Amer 143, Est GFR (MDRD) Non-Af 118, BUN/Creatinine Ratio 8.9 L, Glu cose 88, Calcium 8.0 L, Total Bilirubin 0.60, AST 23, ALT 17, Alkaline Phosphatase 202 H, Total Protein 6.1 L, Albumin 2.2 L, Globulin 3.9, Albumin/Globulin Ratio 0.6 L 03/31/23 05:30: APTT 33.7 Micro: Microbiology 03/30/23 15:00 Wound - Toe Gram Stain - Final Radiography Diagnostic Testing: Radiology Impression Chest X-Ray 03/30/23 13:29 IMPRESSION: No radiographic evidence of acute cardiopulmonary disease. Electronically Signed: Juancho Novoa MD at 14:44 EDT , Foot X-Ray 03/30/23 13:29 IMPRESSION: 1. Fracture of the distal 5th phalanx at the proximal aspect. Soft tissue swelling around the foot. 2. Large plantar ulcer at the level of calcaneus. Electronically Signed: Juancho Novoa MD at 14:44 EDT , Chest X-Ray 03/31/23 06:59 IMPRESSION: No radiographic evidence of acute cardiopulmonary disease. Electronically Signed: David Urban, at 7:29 EDT , Physical Exam Narrative General: Alert, Oriented x3, Cooperative, No apparent distress HEENT: Atraumatic, PERRLA, EOMI, Normocephalic Oral: Moist Mucosa Neck: Supple, No JVD Lungs: Diminished, Normal air movement, No rhonchi, No wheeze, No rales Cardiovascular: Regular rate, Regular Rhythm, Normal S1, Normal S2, No murmurs Abdomen: Soft, Non Tender, Non-Distended, No Hepato-splenomegaly Extremities: No edema, Capillary Refill Less than 3 Seconds Skin: Wound is dressed Musculoskeletal: No Tenderness to Palpation of Joints or Extremities Neurological: Motor Exam 5/5 strength throughout, decreased sensation peripherally lower extremities chronic Psych/Mental Status: Normal Affect, Appropriate Assessment & Plan Assessment/Plan (1) Osteomyelitis of toe of left foot: PLAN: Plan 1. Sepsis secondary a left foot infection on her fifth toe with possible osteomyelitis ? Consult podiatry ? MRI pending ? Continue with antibiotics ? Sepsis secondary to positive SIRS criteria with source of infection given that she is Medicare ? Continue with IV fluids 2. 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 Continue with her hydroxychloroquine and gabapentin ? She only follows up with rheumatology once a year so she is unclear how con trolled her lupus is 3. Anxiety/depression ? Stable ? Continue with Cymbalta DVT: Lovenox Charges/Coding Visit Charges Inpatient E&M: 24690 Subs Hosp L2
--- NOTE | 2023-03-31 10:53 | NURSING ---
Return from MRI
--- NOTE | 2023-03-31 12:00 | CASEMGMT ---
RN CM Face to Face with patient for initial transition planning/care coordination assessment. RN CM introduced self and role at [facility]. Patient lying in bed, alert and but somewhat drowsy, family at bedside. Patient and willing to participate in assessment and is able to answer all questions appropriately. Care providers, pharmacy, and demographics verified. Patient wishes to discharge home, will monitor for possible HHC and IV ATBs at discharge pending surgery and cultures. Patient and family state they have no further needs or concerns at this time. CM to follow for discharge planning needs that may arise. PCP: Kailee Specialists: RA Santa; Trav, surgeon; Anish investigative research specialist Preferred Pharmacy: [facility] Insurance: [employer] Prescription Benefit: yes Living Will/HPOA: none LNOK: , children Living Arrangements: Patient lives with in a 2 story home with option for first floor setup. Patient is normally independent and able to ambulate stairs. Transportation: self, DME/HHC: Patient has shower chair, cane, crutches, walker, wheelchair, knee scooter, and grab bars. No previous HHC or SNF Disposition Plan: Patient to discharge home with family support and follow up plans in place. Will monitor for HHC and IV ATBs. Sneha JOHNSON, RN, CM
--- NOTE | 2023-03-31 12:55 | NURSING ---
pt to surgical unit via bed w/ OR staff-1400 zosyn dose sent w/ pt
--- NOTE | 2023-03-31 13:13 | NURSING ---
pt off unit, family in [place]
--- NOTE | 2023-03-31 14:00 | AMP_PTH ---
PATIENT: CHAPO PEREZ LOC: MS3 U#:[id number] AGE/SX: 57/F ROOM: WA322 RE03/30/[address]: Dr. Andrez Moralez MD : 1965 BED: 1 DIS: 04/04/2023 SPEC #: [id number] RECD: 03/31/23 16:21 STATUS: MARLA REJohan #: [id number] SILVER: 03/31/23 14:[address]: Akin Underwood DEPT: SURGICAL PATHOLOGY RECD BY: Rosalina Taylor ENTERED: 04/03/23 09:37 SP TYPE: Amputation OTHR DR: MD Dr. Swapna Colón MD Dr. Jeffrey Wunning, DPM MD Dr. Flynn Solorzano MD Tissues: A - Toe, NOS B - Toe, NOS Procedures: Decalcification bone/plaque Surgery Specimen Level IV Comments: @ Ordering doctor for DEC edited from to DR.JWUNNI Jovana YE at 04/03/23 992 @ Ordering doctor for SUIV edited from to @ morgan YE at 04/03/23 1453 @ Submitting doctor edited from to DR.JWUNNI Jovana YE at 04/03/23 1453 HEADER OPERATION: Amputation fifth toe/metatarsal PRE-OP DIAGNOSIS: Cellulitis of left lower limb; osteomyelitis TISSUE SUBMITTED: A - Clearance fragment left fifth toe, B - Left fifth toe MICROSCOPIC DIAGNOSIS A. Clearance fragment of left fifth toe, bone biopsy: Focal acute osteomyelitis is present. Fibrous tissue with acute and chronic inflammation, granulation and fibrinopurulent material. B. Left fifth toe, amputation: Skin and soft tissue with ulceration, acute and chronic inflammation and granulation. Bone with acute osteomyelitis. AM:eladio 04/06/2023 MICROSCOPIC DESCRIPTION Slides are reviewed. GROSS DESCRIPTION A - Received in fixative is one container labeled with the patient's name and designated clearance fragment left fifth toe. The specimen consists of a piece of bone measuring 1.0 x 0.6 x 0.4 cm. The entire specimen is submitted in one cassette after decalcification. B - Received in fixative is one container labeled with the patient's name and designated left fifth toe. The specimen consists of a portion of toe measuring 5.0 x 2.5 x 1.8 cm. A focal area of ulceration is noted on the dorsal surface of the toe measuring 0.6 cm in greatest dimension. The nail appears unremarkable. Switchboard Operator Receptionist sections are submitted in three cassettes as follows: 1 - ulcerated area, 2??longitudinal section of bone, 3 - resection margin. Cassettes 2 & 3 are submitted after decalcification. / SJ:rg 04/03/2023 TC:2 CPT: 35369 x2, [id number]
[2023-03-31] MEDS: Lactated Ringers 1,000 ML 15 ML IV ×2 (14:50→16:15)
[2023-03-31 15:16] LABS: Vancomycin, Trough Level 20.7 ug/mL (5.0-15.0)
[2023-03-31] MEDS: Bupivacaine Mpf 0.5% 30 ML VIAL (15:23)
--- NOTE | 2023-03-31 15:35 | OP.PCM_ITS ---
Report of Operation Date of Procedure: 03/31/23 Pre-Operative Diagnosis: Osteomyelitis left 5th toe Post-Operative Diagnosis: Same Surgery/Procedure Performed:: Amputation left 5th toe Surgeon: Akin Underwood buckle strap puncher: None Type of Anesthesia: Local and MAC Specimen's removed: 1. Amputated left 5th toe sent to pathology 2. Bone culture left 5th toe sent to microbiology 3. Clearance fragment left 5th toe sent to pathology and microbiology Grafts/Implants Used: None Complications None
--- NOTE | 2023-03-31 15:35 | PCM.OPRPT ---
Report of Operation Date of Procedure: 03/31/23 Pre-Operative Diagnosis: Osteomyelitis left 5th toe Post-Operative Diagnosis: Same Surgery/Procedure Performed:: Amputation left 5th toe Surgeon: Akin Underwood granite polisher machine: None Type of Anesthesia: Local and MAC Specimen's removed: 1. Amputated left 5th toe sent to pathology 2. Bone culture left 5th toe sent to microbiology 3. Clearance fragment left 5th toe sent to pathology and microbiology Description of Procedure: Indications: 57 year old female with history of multiple medical problems including lupus with neuropathy developed an infected left 5th toe. Left 5th toe is a hammer toe, and she has neuropathy, there is ulceration to the dorsal PIPJ as well as to the sulcus which probes to the proximal phalanx of the left 5th toe, there is drainage, +MRSA, significant cellulitis and edema to the foot at this area and cellulitis extends to the dorsal hindfoot to ankle. WBC, ESR, and CRP elevated. Xrays left foot with erosion of bone present. MRI was very poor quality, I spoke with Dr. Ellis and unable to determine if there is osteomyelitis on MRI due to very poor quality. Plantar left heel ulceration without signs of infection. The options were discussed with her - antibiotics, wound care, and debridement, also 5th toe and possible partial 5th metatarsal amputation. This was discussed with her in detail. She would like to proceed with the amputation. The possible benefits vs risks were discussed with her. She was informed the risks include but not limited to nonhealing, delayed healing, need for further surgery, worsening, loss of function, deformity, bleeding, blood clots, loss of limb, loss of life. The consent form was reviewed with her and she freely signed it. No guarantees were given nor implied. No warranties were given. She is on antibiotic therapy per Infectious Disease. Operative Procedure: The patient was brought back into the operating room and was placed on the operating room in the supine position. Patient was secured to the operating room table with safety belt around her waist. A time out was performed the she was properly identified and the surgical plan was confirmed. The patient received MAC anesthesia per the anesthesia team. The skin of the left foot was cleansed with 70% Isopropyl alcohol and 10mL of 0.5% Bupivacaine plain was given as a left foot 5th ray block. A well padded pneumatic tourniquet was applied around the left ankle. The left foot was scrubbed, prepped, and draped in the usual aseptic fashion. Further attention was directed to the left foot where again there was noted to be deep infected ulceration to the 5th toe as noted above. There was cellulitis, drainage and edema to the site. The tissue in the ulcer was nonviable and necrotic as well - this involved the skin, subcutaneous and fascia layer and probe to bone. The left foot was elevated for 3 minutes and the left ankle tourniquet was inflated to 250mmHg. Using a 15 blade the ulceration was excised and the 5th toe was amputated at the level of the 5th metatarsal phalangeal joint. The soft tissue of the 5th toe was nonviable, and bone of distal proximal phalanx was nonviable, soft and appeared infected. All nonviable soft tissue was debrided from the site using a 15 blade down to healthy viable soft tissue and bone. The head of the 5th metatarsal was visualized and noted to be healthy and viable, white and hard - no evidence of infection to the 5th metatarsal bone. The site was flushed out with copious amounts of normal saline solution. A piece of bone was obtained of the base of the 5th toe proximal phalanx using a bone cutting rongeur and sent to microbiology and pathology as a clearance fragment. The site was flushed out with copious amounts of normal saline solution. The incision site was reapproximated using 3-0 Prolene, but left open proximally to allow for drainage. The site was packed with 1/4in Iodoform. A dressing was applied which consisted of 4x4 gauze, kerlix, and trang bandage. The tourniquet was deflated and there was immediate return of warmth and perfusion to the foot with CFT < 2 seconds to all remaining toes. Total tourniquet time was 25 minutes. Also a bone culture was obtained of the distal left 5th toe proximal phalanx and sent to microbiology as a culture. The patient tolerated the above procedure and anesthesia well with no complications. She was transported from the operating room to the recovery room with vital signs stable and in good condition. Post op orders were placed. Patient will be followed as an inpatient. Grafts/Implants Used: None Complications None
--- NOTE | 2023-03-31 15:43 | PCM.RX.CS ---
Consult Pharmacy has been consulted to manage selected antiobiotic: Vancomycin Type of Consult: Follow-up Suspected Infection: Sepsis, Skin/Soft tissue, Osteomyelitis Prior Doses of Antibiotics Received/Current Regimen: current dose is vanc 1500mg IV q8h Labs: Sodium 140 mmol/L (136-145) 03/31/23 05:30 Potassium 3.5 mmol/L (3.5-5.1) 03/31/23 05:30 Chloride 112 mmol/L (98-107) H 03/31/23 05:30 Carbon Dioxide 25.0 mmol/L (21.0-32.0) 03/31/23 05:30 Anion Gap 3 (5-15) L 03/31/23 05:30 BUN 5 mg/dL (7-18) L 03/31/23 05:30 Creatinine 0.56 mg/dL (0.55-1.02) 03/31/23 05:30 Est GFR (MDRD) Af Amer 143 mL/min (>60) 03/31/23 05:30 Est GFR (MDRD) Non-Af 118 mL/min (>60) 03/31/23 05:30 BUN/Creatinine Ratio 8.9 RATIO (10-20) L 03/31/23 05:30 Glucose 88 mg/dL (74-106) 03/31/23 05:30 Vancomycin Trough 20.7 ug/mL (5.0-15.0) H 03/31/23 14:24 Microbiology: Microbiology 03/30/23 15:00 Wound - Toe Gram Stain - Final 03/30/23 15:00 Wound - Toe Wound Culture - Preliminary Streptococcus group A 03/30/23 14:30 Urine Catheter - Catheter Urine Culture - Preliminary Culture exhibits no growth. Weight used for dosin.7 kg Estimated Creatinine Clearance: >100ml/min Goal Trough: 15-20 mcg/mL Pharmacy Plan for Drug Dosing: The vanc trough drawn at 14:24 today (approx 8 hours after the previous dose) was 20.7. This is above goal so will hold this afternoon's dose since it has not been given yet. Will lengthen out the dosing interval to 12 hours and change dose to 1500mg q12h and wait to start until 20:00 tonight so that the level will be <20 by then. Repeat a trough before the 4th dose once the dose is re-started at the 12-hr interval. Pharmacy Service will continue to monitor and adjust dosing as required. Follow-Up Labs: Trough Vancomycin Labs to be done on [date and time ordered]: 04/02/23 07:30
--- NOTE | 2023-03-31 16:02 | RAD_ITS ---
STUDY: X-RAY - LEFT FOOT CLINICAL: Female, 57 years old. post op TECHNIQUE: 3 view(s) of the foot. COMPARISON: 03/30/2023 FINDINGS: Calcaneal spur. There is ulcer of the posterior plantar soft tissues, stable. Normal visualized subtalar, talonavicular, calcaneocuboid, tarsal and tarsometatarsal articulations. Normal metatarsi. Normal metatarsophalangeal joint of the great toe. Normal tibial and fibular sesamoid bones. Normal interphalangeal joint of the great toe. Normal phalanges of the great toe. Fifth digit amputation with expected soft tissue swelling/air. RAD/Foot min 3 Views IMPRESSION: 1. Fifth digit amputation. 2. Posterior plantar ulcer. Electronically Signed: Rosalio Lau (Brooks), at 16:19 EDT ,
--- NOTE | 2023-03-31 16:50 | NURSING ---
pt returns to unit @[id number]-
--- NOTE | 2023-03-31 17:38 | NURSING ---
2 attempts for iv restart unsuccessful and pt refused more at this time
--- NOTE | 2023-03-31 17:50 | NURSING ---
pt currently in surgical dressing from toes to ankle on left-toe is warm and mobile but pt can not feel nurse touching toe-cap refill wnl-LLE up on pillows- pt talkitive with family but drowsy-bed exit set
[2023-03-31] MEDS: Gabapentin 300 MG Capsule PO (21:42)
[2023-03-31] MEDS: LORazepam 1 MG Tablet PO (21:42)
[2023-03-31] MEDS: DULoxetine Hcl 60 MG Capsule PO (21:42)
[2023-03-31] MEDS: Hydroxychloroquine 200 MG Tablet PO (21:43)
[2023-04-01] VITALS (8 sets, daily range): BP systolic 90–136; BP diastolic 53–85; PULSE 88–101; RESP 16–28; TEMP 36.1–36.8; O2SAT 96–100
[2023-04-01] MEDS: KCL 20MEQ in 0.9% NS 20 MEQ/1,000 ML IV.SOLN. 125 MEQ IV (02:38)
[2023-04-01] MEDS: cycloBENZAPRine HCl 10 MG Tablet PO ×3 (05:25→21:52)
--- NOTE | 2023-04-01 07:18 | PCM.PROGNOTE ---
Subjective Subjective Patient was seen this morning for follow up on left foot. She is resting comfortably in bed. No f/c/n/v. Objective Data Objective Data Vital Signs: Vital Signs Temp Pulse Resp BP Pulse Ox O2 Del Method O2 Flow Rate 98.3 F 94 24 H 95/59 L 96 Room Air 2 04/01/23 05:14 04/01/23 05:14 04/01/23 05:14 04/01/23 05:14 04/01/23 05:50 04/01/23 05:50 04/01/23 05:14 Oxygen Flow Rate (L/min) 2 Oxygen Delivery Method Room Air Weight: 112.672 kg Body Mass Index (BMI) 37.8 Intake & Output: Intake and Output for Last 24 Hours 03/30/23 03/31/23 04/01/23 23:59 23:59 23:59 Intake Total 2830 / 2830 4228.50 / 4348.50 1470 / 1470 Output Total 650 / 1050 900 / 900 Balance 2830 / 2830 3578.50 / 3298.50 570 / 570 Lab / Micro Data Result Diagrams: 03/31/23 05:30 03/31/23 05:30 Labs: Laboratory Results - last 24 hr 03/31/23 14:24: Vancomycin Trough 20.7 H Micro: Microbiology 03/30/23 15:00 Wound - Toe Gram Stain - Final 03/30/23 15:00 Wound - Toe Wound Culture - Preliminary Streptococcus group A 03/30/23 14:30 Urine Catheter - Catheter Urine Culture - Preliminary Culture exhibits no growth. Radiography Diagnostic Testing: Radiology Impression Chest X-Ray 03/31/23 06:59 IMPRESSION: No radiographic evidence of acute cardiopulmonary disease. Electronically Signed: David Urban, at 7:29 EDT , Lower Extremity MRI 03/31/23 09:00 IMPRESSION: 1. The middle phalanx of the fifth digit is a small fragment with areas of chronic erosion, but is without active marrow edema on the current study as seen on images series 7 and on the axial sequence series 6. Otherwise there is no demonstrated marrow edema or cortical erosion or bony destruction in the remaining structures of the forefoot. 2. Moderate subcutaneous edema is present around the forefoot. There is also diffuse edematous/increased T2 signal throughout the foot muscles which are moderately atrophied consistent with sequela of chronic neuropathy. No subcutaneous or intramuscular abscess is seen. 3. If concern for osteomyelitis persists repeat MR evaluation with only a single STIR coronal or sagittal sequence only, with hopes of avoiding motion artifact or correlate with a nuclear medicine bone scan Electronically Signed: Brenden Ellis MD at 12:39 EDT , Foot X-Ray 03/31/23 16:02 IMPRESSION: 1. Fifth digit amputation. 2. Posterior plantar ulcer. Electronically Signed: Santamaria (Brooks) Sid, at 16:19 EDT , Physical Exam Narrative Left foot s/p left 5th toe amputation, there is residual cellulitis which is stable to the dorsal and lateral foot with edema, there is some serous drainage from the surgical site, no visible abscess, no necrosis, no fluctuance, no crepitus, no maloder, there is ulceration plantar left heel down to subcutaneous tissue with granular base and viable margins and no evidence of infection to the heel at this time. CFT < 2 seconds to all toes on left foot and vascular status intact to the left foot, peripheral neuropathy present to the left foot - chronic. Contracture of lesser toes left foot - chronic. No POP or pain on ROM to the foot or ankle. Const alert, oriented x3 and no apparent distress Assessment & Plan Assessment/Plan (1) Cellulitis of left lower limb: (2) Other hereditary and idiopathic neuropathies: (3) Osteomyelitis of toe of left foot: PLAN: Plan Evaluation performed. Reviewed diagnostic data. s/p left 5th toe amputation due to infection. A culture was obtained from left 5th toe ulceration and sent to microbiology, surgical cultures also obtained as well. She has been started on IV antibiotics - Vanc and Zosyn. Patient admitted to hospital medicine. Wound care left foot for now - packing 1/4 Iodoform to surgical site with overlying gauze, kerlix and trang dressing - change daily. No weightbearing left foot, keep foot elevated. Podiatry will continue to follow.
[2023-04-01 07:24] LABS: Absolute Lymphocyte Count 2.14 X10^3/uL (0.83-4.51); Absolute Neutrophil Count 7.9 X10^3/uL (2.0-7.7); Basophil# 0.04 X10^3/uL; Basophil% 0.3 % (0-1); Eosinophil# 0.55 X10^3/uL; Eosinophils% 4.7 % (0-5); Hematocrit 27.5 % (37-47); Hemoglobin 8.6 g/dL (12.0-15.0); Lymphocyte # 2.14 X10^3/ul (0.83-4.51); Lymphocyte % 18.1 % (19-41); Mean Corp Hgb Conc 31.3 g/dL (32-36); Mean Corpuscular Hgb 26.8 pg (27.0-32.0); Mean Corpuscular Volume 85.7 fL (81-99); Mean Platelet Vol. 8.7 fl (6.2-12.0); Monocyte# 1.13 X10^3/uL; Monocyte% 9.6 % (0-10); NRBC Flagged by Analyzer 0 % (0-5); Neutrophil # 7.91 X10^3/uL (2.7-7.7); Neutrophil % 66.9 % (47-70); Platelet Count 317 K/mm3 (150-450); RBC Distribution Width CV 14.1 % (11.6-14.6); RBC Distribution Width SD 44.2 fl (35.1-43.9); Red Blood Count 3.21 M/mm3 (4.2-5.4); White Blood Count 11.8 K/mm3 (4.4-11.0)
[2023-04-01 07:33] LABS: Anion Gap 8 (5-15); BUN 7 mg/dL (7-18); BUN/Creat Ratio 6.7 RATIO (10-20); Chloride 110 mmol/L (98-107); Creatinine, Serum 1.05 mg/dL (0.55-1.02); EST Glomerular Filtration Rate 57 mL/min (>60); Est Glom Filt Rate - Afr Amer 69 mL/min (>60); Estimated Creatinine Clearance 59.63 ml/min; Glucose 90 mg/dL (74-106); Potassium 3.6 mmol/L (3.5-5.1); Sodium Level 142 mmol/L (136-145)
--- NOTE | 2023-04-01 09:19 | PCM.PN.HOSP ---
Subjective Subjective Doing well, no issues overnight. White count is improving. Objective Data Objective Data Vital Signs: Vital Signs Temp Pulse Resp BP Pulse Ox O2 Del Method O2 Flow Rate 98.3 F 94 24 H 121/68 H 96 Room Air 2 04/01/23 05:14 04/01/23 05:14 04/01/23 05:14 04/01/23 07:22 04/01/23 05:50 04/01/23 05:50 04/01/23 05:14 Oxygen Flow Rate (L/min) 2 Oxygen Delivery Method Room Air Weight: 248 lb 6.4 oz Body Mass Index (BMI) 37.8 Intake & Output: Intake and Output for Last 24 Hours 03/31/23 04/01/23 04/02/23 03:59 03:59 03:59 Intake Total 4410 / 4410 3818.50 / 3818.50 300 / 300 Output Total 1050 / 1050 500 / 500 Balance 4410 / 4410 2768.50 / 2768.50 -200 / -200 Lab / Micro Data Result Diagrams: 04/01/23 07:10 04/01/23 07:10 Labs: Laboratory Results - last 24 hr 03/31/23 14:24: Vancomycin Trough 20.7 H 04/01/23 07:10: WBC 11.8 H, RBC 3.21 L, Hgb 8.6 L, Hct 27.5 L, MCV 85.7, MCH 26.8 L, MCHC 31.3 L, RDW Std Deviation 44.2 H, RDW Coeff of Jennifer 14.1, Plt Count 317, MPV 8.7, Immature Gran % (Auto) 0.400, Neut % (Auto) 66.9, Lymph % (Auto) 18.1 L, [place] % (Auto) 9.6, Eos % (Auto) 4.7, Baso % (Auto) 0.3, Absolute Neuts (auto) 7.9 H, Absolute Lymphs (auto) 2.14, Nucleated RBC % 0 04/01/23 07:10: Sodium 142, Potassium 3.6, Chloride 110 H, Carbon Dioxide 24.0, Anion Gap 8, BUN 7, Creatinine 1.05 H, Estim Creat Clear Calc 59.63, Est GFR (MDRD) Af Amer 69, Est GFR (MDRD) Non-Af 57 L, BUN/Creatinine Ratio 6.7 L, Glucose 90, Calcium 8.0 L Micro: Microbiology 03/30/23 15:00 Wound - Toe Gram Stain - Final 03/30/23 15:00 Wound - Toe Wound Culture - Preliminary Streptococcus group A 03/30/23 14:30 Urine Catheter - Catheter Urine Culture - Preliminary Culture exhibits no growth. Radiography Diagnostic Testing: Radiology Impression Lower Extremity MRI 03/31/23 09:00 IMPRESSION: 1. The middle phalanx of the fifth digit is a small fragment with areas of chronic erosion, but is without active marrow edema on the current study as seen on images series 7 and on the axial sequence series 6. Otherwise there is no demonstrated marrow edema or cortical erosion or bony destruction in the remaining structures of the forefoot. 2. Moderate subcutaneous edema is present around the forefoot. There is also diffuse edematous/increased T2 signal throughout the foot muscles which are moderately atrophied consistent with sequela of chronic neuropathy. No subcutaneous or intramuscular abscess is seen. 3. If concern for osteomyelitis persists repeat MR evaluation with only a single STIR coronal or sagittal sequence only, with hopes of avoiding motion artifact or correlate with a nuclear medicine bone scan Electronically Signed: Brenden Ellis MD at 12:39 EDT , Foot X-Ray 03/31/23 16:02 IMPRESSION: 1. Fifth digit amputation. 2. Posterior plantar ulcer. Electronically Signed: Rosalio Lau (Brooks) at 16:19 EDT , Physical Exam Narrative General: Alert, Oriented x3, Cooperative, No apparent distress HEENT: Atraumatic, PERRLA, EOMI, Normocephalic Oral: Moist Mucosa Neck: Supple, No JVD Lungs: Diminished, Normal air movement, No rhonchi, No wheeze, No rales Cardiovascular: Regular rate, Regular Rhythm, Normal S1, Normal S2, No murmurs Abdomen: Soft, Non Tender, Non-Distended, No Hepato-splenomegaly Extremities: No edema, Capillary Refill Less than 3 Seconds Skin: Wound is dressed Musculoskeletal: No Tenderness to Palpation of Joints or Extremities Neurological: Motor Exam 5/5 strength throughout, decreased sensation peripherally lower extremities chronic Psych/Mental Status: Normal Affect, Appropriate Assessment & Plan Assessment/Plan (1) Osteomyelitis of toe of left foot: PLAN: Plan 1. Sepsis secondary a left foot infection on her fifth toe ? Consult podiatry, status post fifth toe resection 03/31/2023 ? MRI for osteomyelitis ? Continue with antibiotics ? Sepsis secondary to positive SIRS criteria with source of infection given that she is Medicare ?Can discontinue IV fluids 2. 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 Continue with her hydroxychloroquine and gabapentin ? She only follows up with rheumatology once a year so she is unclear how controlled her lupus is 3. Anxiety/depression ? Stable ? Continue with Cymbalta DVT: Lovenox Charges/Coding Visit Charges Inpatient E&M: 43861 Subs Hosp L2
[2023-04-01] MEDS: DULoxetine Hcl 60 MG Capsule PO ×2 (09:41→21:48)
[2023-04-01] MEDS: Aspirin 81 MG TAB.CHEW PO (09:41)
[2023-04-01] MEDS: Estradiol 1 MG Tablet PO (09:43)
[2023-04-01] MEDS: Enoxaparin 40 MG/0.4 ML Syringe SC (09:43)
[2023-04-01] MEDS: Hydroxychloroquine 200 MG Tablet PO ×2 (09:47→21:52)
[2023-04-01] MEDS: Gabapentin 300 MG Capsule PO ×2 (09:47→21:47)
--- NOTE | 2023-04-01 12:39 | NURSING ---
table games shift manager attempted to start another IV line and was unsuccessful. Pt still had one Iv site but as soon as this RN went to hang the Vancomycin, noticed that IV was leaking and swollen.
[2023-04-01] MEDS: LORazepam 1 MG Tablet PO (15:19)
[2023-04-01] MEDS: Zolpidem Tartrate 5 MG Tablet PO (21:47)
[2023-04-01] MEDS: oxyCODONE 5 MG Tablet PO (21:54)
[2023-04-02 04:18] VITALS: BP 90/60; PULSE 88; RESP 16; TEMP 36.6; O2SAT 92
[2023-04-02] MEDS: cycloBENZAPRine HCl 10 MG Tablet PO ×3 (05:56→21:59)
[2023-04-02] MEDS: Estradiol 1 MG Tablet PO (07:50)
[2023-04-02] MEDS: Hydroxychloroquine 200 MG Tablet PO ×2 (07:51→21:59)
[2023-04-02] MEDS: Enoxaparin 40 MG/0.4 ML Syringe SC (07:51)
[2023-04-02] MEDS: Aspirin 81 MG TAB.CHEW PO (07:51)
[2023-04-02] MEDS: DULoxetine Hcl 60 MG Capsule PO ×2 (07:51→21:59)
[2023-04-02 07:55] LABS: Absolute Lymphocyte Count 2.04 X10^3/uL (0.83-4.51); Absolute Neutrophil Count 6.1 X10^3/uL (2.0-7.7); Basophil# 0.06 X10^3/uL; Basophil% 0.6 % (0-1); Eosinophil# 0.53 X10^3/uL; Eosinophils% 5.5 % (0-5); Hematocrit 28.7 % (37-47); Hemoglobin 8.7 g/dL (12.0-15.0); Lymphocyte # 2.04 X10^3/ul (0.83-4.51); Mean Corp Hgb Conc 30.3 g/dL (32-36); Mean Corpuscular Hgb 26.6 pg (27.0-32.0); Mean Corpuscular Volume 87.8 fL (81-99); Mean Platelet Vol. 8.9 fl (6.2-12.0); Monocyte# 0.93 X10^3/uL; Monocyte% 9.6 % (0-10); NRBC Flagged by Analyzer 0 % (0-5); Neutrophil # 6.08 X10^3/uL (2.7-7.7); Neutrophil % 62.6 % (47-70); Platelet Count 335 K/mm3 (150-450); RBC Distribution Width CV 14.4 % (11.6-14.6); RBC Distribution Width SD 46.4 fl (35.1-43.9); Red Blood Count 3.27 M/mm3 (4.2-5.4); White Blood Count 9.7 K/mm3 (4.4-11.0)
[2023-04-02] MEDS: Gabapentin 300 MG Capsule PO ×2 (07:55→21:58)
[2023-04-02 08:00] VITALS: O2SAT 95
[2023-04-02 08:04] VITALS: BP 87/58; PULSE 86; RESP 18; TEMP 36.4; O2SAT 95
[2023-04-02 08:14] LABS: Anion Gap 3 (5-15); BUN 6 mg/dL (7-18); BUN/Creat Ratio 4.9 RATIO (10-20); Calcium,Total 8.5 mg/dL (8.5-10.1); Chloride 112 mmol/L (98-107); Creatinine, Serum 1.23 mg/dL (0.55-1.02); EST Glomerular Filtration Rate 48 mL/min (>60); Est Glom Filt Rate - Afr Amer 58 mL/min (>60); Glucose 102 mg/dL (74-106); Sodium Level 141 mmol/L (136-145)
[2023-04-02 08:17] LABS: Vancomycin, Trough Level 18.4 ug/mL (5.0-15.0)
--- NOTE | 2023-04-02 08:35 | PCM.RX.CS ---
Consult Pharmacy has been consulted to manage selected antiobiotic: Vancomycin Type of Consult: Follow-up Prior Doses of Antibiotics Received/Current Regimen: Medications Vancomycin HCl 1,500 mg/ (Sodium Chloride) 530 mls @ 250 mls/hr IV Q12H CALI Last Admin: 04/02/23 07:49 Dose: 250 mls/hr Labs: Sodium 141 mmol/L (136-145) 04/02/23 07:30 Potassium 4.0 mmol/L (3.5-5.1) 04/02/23 07:30 Chloride 112 mmol/L (98-107) H 04/02/23 07:30 Carbon Dioxide 26.0 mmol/L (21.0-32.0) 04/02/23 07:30 Anion Gap 3 (5-15) L 04/02/23 07:30 BUN 6 mg/dL (7-18) L 04/02/23 07:30 Creatinine 1.23 mg/dL (0.55-1.02) H 04/02/23 07:30 Est GFR (MDRD) Af Amer 58 mL/min (>60) L 04/02/23 07:30 Est GFR (MDRD) Non-Af 48 mL/min (>60) L 04/02/23 07:30 BUN/Creatinine Ratio 4.9 RATIO (10-20) L 04/02/23 07:30 Glucose 102 mg/dL (74-106) 04/02/23 07:30 Vancomycin Trough 18.4 ug/mL (5.0-15.0) H 04/02/23 07:30 Microbiology: Microbiology 03/30/23 15:00 Wound - Toe Gram Stain - Final 03/30/23 15:00 Wound - Toe Wound Culture - Preliminary Streptococcus group A Staphylococcus aureus 03/30/23 15:00 Wound - Toe Anaerobic Culture - Preliminary Checking for anaerobes, further studies to follow. 03/30/23 13:40 Blood Culture (Wb) - Anticubital Left Blood Culture - Preliminary No growth in 48 hours. 03/30/23 12:55 Blood Culture (Wb) - Anticubital Left Blood Culture - Preliminary No growth in 48 hours. 03/31/23 Unknown Bone - 5th Toe Gram Stain - Final 03/31/23 Unknown Bone - 5th Toe Wound Culture - Preliminary No growth-Final to follow 03/31/23 Unknown Bone - 5th Toe Gram Stain - Final 03/31/23 Unknown Bone - 5th Toe Wound Culture - Preliminary No growth-Final to follow 03/30/23 14:30 Urine Catheter - Catheter Urine Culture - Preliminary Gram positive anthony Weight used for dosin kg Goal Trough: 15-20 mcg/mL Pharmacy Plan for Drug Dosing: Trough in goal range. SCr increased from admission and increased again since yesterday. Yesterday's dose was given a little early so the reported trough is about 13.5 hours. Considering the renal function and the longer trough, I would recommend decreasing vancomycin dose to 1250mg IV q12h and recheck trough again prior to 4th dose. Pharmacy Service will continue to monitor and adjust dosing as required. Follow-Up Labs: Trough Vancomycin - 04/04 @ 7251
--- NOTE | 2023-04-02 10:20 | PN.HOSP_ITS ---
Subjective Subjective Doing well, pain is controlled Objective Data Objective Data Vital Signs: Vital Signs Temp Pulse Resp BP Pulse Ox O2 Del Method O2 Flow Rate 97.6 F L 86 18 87/58 L 95 Room Air 2 04/02/23 08:04 04/02/23 08:04 04/02/23 08:04 04/02/23 08:04 04/02/23 08:04 04/02/23 08:04 04/02/23 04:18 Oxygen Flow Rate (L/min) 2 Oxygen Delivery Method Room Air Weight: 248 lb 6.4 oz Body Mass Index (BMI) 37.8 Intake & Output: Intake and Output for Last 24 Hours 04/01/23 04/02/23 04/03/23 03:59 03:59 03:59 Intake Total 3818.50 / 3818.50 2852.75 / 2852.75 212.5 / 212.5 Output Total 1050 / 1050 500 / 500 Balance 2768.50 / 2768.50 2352.75 / 2352.75 212.5 / 212.5 Lab / Micro Data Result Diagrams: 04/02/23 07:30 04/02/23 07:30 Labs: Laboratory Results - last 24 hr 04/02/23 07:30: Vancomycin Trough 18.4 H 04/02/23 07:30: WBC 9.7, RBC 3.27 L, Hgb 8.7 L, Hct 28.7 L, MCV 87.8, MCH 26.6 L , MCHC 30.3 L, RDW Std Deviation 46.4 H, RDW Coeff of Jennifer 14.4, Plt Count 335, MPV 8.9, Immature Gran % (Auto) 0.700, Neut % (Auto) 62.6, Lymph % (Auto) 21.0, [place] % (Auto) 9.6, Eos % (Auto) 5.5 H, Baso % (Auto) 0.6, Absolute Neuts (auto) 6.1, Absolute Lymphs (auto) 2.04, Nucleated RBC % 0 04/02/23 07:30: Sodium 141, Potassium 4.0, Chloride 112 H, Carbon Dioxide 26.0, Anion Gap 3 L, BUN 6 L, Creatinine 1.23 H, Estim Creat Clear Calc 50.90, Est GFR (MDRD) Af Amer 58 L, Est GFR (MDRD) Non-Af 48 L, BUN/Creatinine Ratio 4.9 L, Glucose 102, Calcium 8.5 Micro: Microbiology 03/30/23 15:00 Wound - Toe Gram Stain - Final 03/30/23 15:00 Wound - Toe Wound Culture - Final Streptococcus group A Meth. resistant Staph. aureus 03/30/23 15:00 Wound - Toe Anaerobic Culture - Preliminary Checking for anaerobes, further studies to follow. 03/30/23 13:40 Blood Culture (Wb) - Anticubital Left Blood Culture - Preliminary No growth in 48 hours. 03/30/23 12:55 Blood Culture (Wb) - Anticubital Left Blood Culture - Preliminary No growth in 48 hours. 03/31/23 Unknown Bone - 5th Toe Gram Stain - Final 03/31/23 Unknown Bone - 5th Toe Wound Culture - Preliminary No growth-Final to follow 03/31/23 Unknown Bone - 5th Toe Gram Stain - Final 03/31/23 Unknown Bone - 5th Toe Wound Culture - Preliminary No growth-Final to follow 03/30/23 14:30 Urine Catheter - Catheter Urine Culture - Preliminary Gram positive anthony Physical Exam Narrative General: Alert, Oriented x3, Cooperative, No apparent distress HEENT: Atraumatic, PERRLA, EOMI, Normocephalic Oral: Moist Mucosa Neck: Supple, No JVD Lungs: Diminished, Normal air movement, No rhonchi, No wheeze, No rales Cardiovascular: Regular rate, Regular Rhythm, Normal S1, Normal S2, No murmurs Abdomen: Soft, Non Tender, Non-Distended, No Hepato-splenomegaly Extremities: No edema, Capillary Refill Less than 3 Seconds Skin: Wound is dressed Musculoskeletal: No Tenderness to Palpation of Joints or Extremities Neurological: Motor Exam 5/5 strength throughout, decreased sensation peripherally lower extremities chronic Psych/Mental Status: Normal Affect, Appropriate Assessment & Plan Assessment/Plan (1) Osteomyelitis of toe of left foot: PLAN: Plan 1. Sepsis secondary a left foot infection on her fifth toe ? Consult podiatry, status post fifth toe resection 03/31/2023 ? MRI for osteomyelitis was negative ? Continue with antibiotics ?Wound cultures with MRSA and group A strep ?Blood pressure is little bit low today, will and renal function has continued to climb so we will restart IV fluids 2. 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 Continue with her hydroxychloroquine and gabapentin ? She only follows up with rheumatology once a year so she is unclear how controlled her lupus is 3. Anxiety/depression ? Stable ? Continue with Cymbalta DVT: Lovenox Charges/Coding Visit Charges Inpatient E&M: 12652 Subs Hosp L2
--- NOTE | 2023-04-02 11:35 | PCM.PROGNOTE ---
Subjective Subjective Patient was seen this morning for follow up on left foot. She is resting in bed with no complaints. She relates she is feeling better. WBC normal. No f/c/n/v. Objective Data Objective Data Vital Signs: Vital Signs Temp Pulse Resp BP Pulse Ox O2 Del Method O2 Flow Rate 97.6 F L 86 18 87/58 L 95 Room Air 2 04/02/23 08:04 04/02/23 08:04 04/02/23 08:04 04/02/23 08:04 04/02/23 08:04 04/02/23 08:04 04/02/23 04:18 Oxygen Flow Rate (L/min) 2 Oxygen Delivery Method Room Air Weight: 112.672 kg Body Mass Index (BMI) 37.8 Intake & Output: Intake and Output for Last 24 Hours 03/31/23 04/01/23 04/02/23 23:59 23:59 23:59 Intake Total 4228.50 / 4348.50 3972.75 / 3972.75 262.5 / 262.5 Output Total 650 / 1050 900 / 900 Balance 3578.50 / 3298.50 3072.75 / 3072.75 262.5 / 262.5 Lab / Micro Data Result Diagrams: 04/02/23 07:30 04/02/23 07:30 Labs: Laboratory Results - last 24 hr 04/02/23 07:30: Vancomycin Trough 18.4 H 04/02/23 07:30: WBC 9.7, RBC 3.27 L, Hgb 8.7 L, Hct 28.7 L, MCV 87.8, MCH 26.6 L, MCHC 30.3 L, RDW Std Deviation 46.4 H, RDW Coeff of Jennifer 14.4, Plt Count 335, MPV 8.9, Immature Gran % (Auto) 0.700, Neut % (Auto) 62.6, Lymph % (Auto) 21.0, [place] % (Auto) 9.6, Eos % (Auto) 5.5 H, Baso % (Auto) 0.6, Absolute Neuts (auto) 6.1, Absolute Lymphs (auto) 2.04, Nucleated RBC % 0 04/02/23 07:30: Sodium 141, Potassium 4.0, Chloride 112 H, Carbon Dioxide 26.0, Anion Gap 3 L, BUN 6 L, Creatinine 1.23 H, Estim Creat Clear Calc 50.90, Est GFR (MDRD) Af Amer 58 L, Est GFR (MDRD) Non-Af 48 L, BUN/Creatinine Ratio 4.9 L, Glucose 102, Calcium 8.5 Micro: Microbiology 03/30/23 15:00 Wound - Toe Gram Stain - Final 03/30/23 15:00 Wound - Toe Wound Culture - Final Streptococcus group A Meth. resistant Staph. aureus 03/30/23 15:00 Wound - Toe Anaerobic Culture - Preliminary Checking for anaerobes, further studies to follow. 03/30/23 13:40 Blood Culture (Wb) - Anticubital Left Blood Culture - Preliminary No growth in 48 hours. 03/30/23 12:55 Blood Culture (Wb) - Anticubital Left Blood Culture - Preliminary No growth in 48 hours. 03/31/23 Unknown Bone - 5th Toe Gram Stain - Final 03/31/23 Unknown Bone - 5th Toe Wound Culture - Preliminary No growth-Final to follow 03/31/23 Unknown Bone - 5th Toe Gram Stain - Final 03/31/23 Unknown Bone - 5th Toe Wound Culture - Preliminary No growth-Final to follow 03/30/23 14:30 Urine Catheter - Catheter Urine Culture - Preliminary Gram positive anthony Physical Exam Narrative Left foot s/p left 5th toe amputation, there is residual cellulitis but much improved today to the dorsal and lateral foot with edema, there is some serous drainage from the surgical site - less than yesterday, no visible abscess, no necrosis, no fluctuance, no crepitus, no maloder, there is ulceration plantar left heel down to subcutaneous tissue with granular base and viable margins and no evidence of infection to the heel at this time. CFT < 2 seconds to all toes on left foot and vascular status intact to the left foot, peripheral neuropathy present to the left foot - chronic. Contracture of lesser toes left foot - chronic. No POP or pain on ROM to the foot or ankle. Const alert, oriented x3 and no apparent distress Assessment & Plan Assessment/Plan (1) Cellulitis of left lower limb: (2) Other hereditary and idiopathic neuropathies: (3) Osteomyelitis of toe of left foot: PLAN: Plan Evaluation performed. Reviewed diagnostic data. s/p left 5th toe amputation due to infection. A culture was obtained from left 5th toe ulceration and sent to microbiology - MRSA and strep A noted, surgical cultures also obtained as well. She has been started on IV antibiotics - Vanc and Zosyn. Patient admitted to hospital medicine. Wound care left foot for now - packing 1/4 Iodoform to surgical site with overlying gauze, kerlix and trang dressing - change daily. No weightbearing left foot, keep foot elevated. Podiatry will continue to follow.
[2023-04-02] MEDS: 0.9% Normal Saline 1,000 ML 100 ML IV ×2 (11:49→22:02)
[2023-04-02 14:26] VITALS: BP 104/63; PULSE 87; RESP 17; TEMP 36.6; O2SAT 96
[2023-04-02] MEDS: oxyCODONE 5 MG Tablet PO ×2 (14:34→21:58)
[2023-04-02 16:22] VITALS: BP 101/70; PULSE 81; RESP 18; TEMP 36.7; O2SAT 94
[2023-04-02] MEDS: Zolpidem Tartrate 5 MG Tablet PO (21:59)
[2023-04-02 22:04] VITALS: BP 112/73; PULSE 88; RESP 16; TEMP 36.6; O2SAT 96
[2023-04-03 04:00] VITALS: BP 126/76; PULSE 100; RESP 18; TEMP 36.4; O2SAT 93
[2023-04-03] MEDS: cycloBENZAPRine HCl 10 MG Tablet PO ×3 (05:18→22:55)
[2023-04-03 05:56] LABS: Absolute Lymphocyte Count 1.94 X10^3/uL (0.83-4.51); Absolute Neutrophil Count 5.7 X10^3/uL (2.0-7.7); Basophil# 0.05 X10^3/uL; Basophil% 0.5 % (0-1); Eosinophil# 0.46 X10^3/uL; Hematocrit 26.5 % (37-47); Hemoglobin 8.2 g/dL (12.0-15.0); Lymphocyte # 1.94 X10^3/ul (0.83-4.51); Lymphocyte % 21.1 % (19-41); Mean Corp Hgb Conc 30.9 g/dL (32-36); Mean Corpuscular Hgb 26.9 pg (27.0-32.0); Mean Corpuscular Volume 86.9 fL (81-99); Mean Platelet Vol. 8.8 fl (6.2-12.0); Monocyte# 0.99 X10^3/uL; Monocyte% 10.8 % (0-10); NRBC Flagged by Analyzer 0 % (0-5); Neutrophil # 5.71 X10^3/uL (2.7-7.7); Neutrophil % 62.1 % (47-70); Platelet Count 320 K/mm3 (150-450); RBC Distribution Width CV 14.3 % (11.6-14.6); RBC Distribution Width SD 46.1 fl (35.1-43.9); Red Blood Count 3.05 M/mm3 (4.2-5.4); White Blood Count 9.2 K/mm3 (4.4-11.0)
[2023-04-03 06:19] LABS: Anion Gap 6 (5-15); BUN 5 mg/dL (7-18); BUN/Creat Ratio 4.5 RATIO (10-20); Calcium,Total 8.1 mg/dL (8.5-10.1); Chloride 113 mmol/L (98-107); Creatinine, Serum 1.12 mg/dL (0.55-1.02); EST Glomerular Filtration Rate 53 mL/min (>60); Est Glom Filt Rate - Afr Amer 64 mL/min (>60); Glucose 96 mg/dL (74-106); Potassium 3.5 mmol/L (3.5-5.1); Sodium Level 142 mmol/L (136-145)
--- NOTE | 2023-04-03 07:08 | PN_ITS ---
Subjective Subjective Patient was seen this morning for follow up on left foot. She is resting comfortably in bed. No complaints. No f/c/n/v, and also no pain. Objective Data Objective Data Vital Signs: Vital Signs Temp Pulse Resp BP Pulse Ox O2 Del Method O2 Flow Rate 97.5 F L 100 18 126/76 H 93 Room Air 2 04/03/23 04:00 04/03/23 04:00 04/03/23 04:00 04/03/23 04:00 04/03/23 04:00 04/03/23 04:00 04/02/23 04:18 Oxygen Flow Rate (L/min) 2 Oxygen Delivery Method Room Air Weight: 112.672 kg Body Mass Index (BMI) 37.8 Intake & Output: Intake and Output for Last 24 Hours 04/01/23 04/02/23 04/03/23 23:59 23:59 23:59 Intake Total 3972.75 / 3972.75 3240.0 / 3240.0 50 / 50 Output Total 900 / 900 Balance 3072.75 / 3072.75 3240.0 / 3240.0 50 / 50 Lab / Micro Data Result Diagrams: 04/03/23 05:34 04/03/23 05:34 Labs: Laboratory Results - last 24 hr 04/02/23 07:30: Vancomycin Trough 18.4 H 04/02/23 07:30: WBC 9.7, RBC 3.27 L, Hgb 8.7 L, Hct 28.7 L, MCV 87.8, MCH 26.6 L , MCHC 30.3 L, RDW Std Deviation 46.4 H, RDW Coeff of Jennifer 14.4, Plt Count 335, MPV 8.9, Immature Gran % (Auto) 0.700, Neut % (Auto) 62.6, Lymph % (Auto) 21.0, [place] % (Auto) 9.6, Eos % (Auto) 5.5 H, Baso % (Auto) 0.6, Absolute Neuts (auto) 6.1, Absolute Lymphs (auto) 2.04, Nucleated RBC % 0 04/02/23 07:30: Sodium 141, Potassium 4.0, Chloride 112 H, Carbon Dioxide 26.0, Anion Gap 3 L, BUN 6 L, Creatinine 1.23 H, Estim Creat Clear Calc 50.90, Est GFR (MDRD) Af Amer 58 L, Est GFR (MDRD) Non-Af 48 L, BUN/Creatinine Ratio 4.9 L, Glucose 102, Calcium 8.5 04/03/23 05:34: WBC 9.2, RBC 3.05 L, Hgb 8.2 L, Hct 26.5 L, MCV 86.9, MCH 26.9 L , MCHC 30.9 L, RDW Std Deviation 46.1 H, RDW Coeff of Jennifer 14.3, Plt Count 320, MPV 8.8, Immature Gran % (Auto) 0.500, Neut % (Auto) 62.1, Lymph % (Auto) 21.1, [place] % (Auto) 10.8 H, Eos % (Auto) 5.0, Baso % (Auto) 0.5, Absolute Neuts (auto) 5.7, Absolute Lymphs (auto) 1.94, Nucleated RBC % 0 04/03/23 05:34: Sodium 142, Potassium 3.5, Chloride 113 H, Carbon Dioxide 23.0, Anion Gap 6, BUN 5 L, Creatinine 1.12 H, Estim Creat Clear Calc 55.90, Est GFR (MDRD) Af Amer 64, Est GFR (MDRD) Non-Af 53 L, BUN/Creatinine Ratio 4.5 L, Glucose 96, Calcium 8.1 L Micro: Microbiology 03/30/23 15:00 Wound - Toe Gram Stain - Final 03/30/23 15:00 Wound - Toe Wound Culture - Final Streptococcus group A Meth. resistant Staph. aureus 03/30/23 15:00 Wound - Toe Anaerobic Culture - Preliminary Checking for anaerobes, further studies to follow. 03/30/23 13:40 Blood Culture (Wb) - Anticubital Left Blood Culture - Preliminary No growth in 48 hours. 03/30/23 12:55 Blood Culture (Wb) - Anticubital Left Blood Culture - Preliminary No growth in 48 hours. 03/31/23 Unknown Bone - 5th Toe Gram Stain - Final 03/31/23 Unknown Bone - 5th Toe Wound Culture - Preliminary No growth-Final to follow 03/31/23 Unknown Bone - 5th Toe Gram Stain - Final 03/31/23 Unknown Bone - 5th Toe Wound Culture - Preliminary No growth-Final to follow 03/30/23 14:30 Urine Catheter - Catheter Urine Culture - Preliminary Gram positive anthony Physical Exam Narrative Left foot s/p left 5th toe amputation, there is residual cellulitis but improving to the dorsal and lateral foot and also some to plantar arch with edema, there is some serous drainage from the surgical site - less than yester day, no visible abscess, no necrosis, no fluctuance, no crepitus, no maloder, there is ulceration plantar left heel down to subcutaneous tissue with granular base and viable margins and no evidence of infection to the heel at this time. CFT < 2 seconds to all toes on left foot and vascular status intact to the left foot, peripheral neuropathy present to the left foot - chronic. Contracture of lesser toes left foot - chronic. No POP or pain on ROM to the foot or ankle. Const alert, oriented x3 and no apparent distress Assessment & Plan Assessment/Plan (1) Cellulitis of left lower limb: (2) Other hereditary and idiopathic neuropathies: (3) Osteomyelitis of toe of left foot: (4) Chronic ulcer of left heel with fat layer exposed: PLAN: Plan Evaluation performed. Reviewed diagnostic data. s/p left 5th toe amputation due to infection. A culture was obtained from left 5th toe ulceration and sent to microbiology - MRSA and strep A noted, surgical cultures also obtained as well. She has been started on IV antibiotics - Vanc and Zosyn. Infectious Disease will be consulted. Patient admitted to hospital medicine. LEAS ordered for check LE arterial flow. Wound care left foot for now - packing 1/4 Iodoform to surgical site with overlying gauze, kerlix and trang dressing - change daily. Also will proceed with wound vac to plantar left heel ulceration. No weightbearing left foot, keep foot elevated. Podiatry will continue to follow.
--- NOTE | 2023-04-03 07:25 | ART_ITS ---
Reason For Study: Ulcer Procedure A bilateral lower extremity continuous wave Doppler with analog waveform analysis,segmental pressures,and ankle brachial indexes without exercise. Left Segmental Pressures Left posterior tibial artery = 146mmHg. Left dorsalis pedis artery = 134mmHg. Right Segmental Pressures Right brachial= 120mmHg. Right posterior tibial artery = 138mmHg. Right dorsalis pedis artery = 140mmHg. Indices The right ankle brachial index by the posterior tibial artery is 1.15. The right ankle brachial index by the dorsalis pedis is 1.17. The left ankle brachial index by the posterior tibial artery is 1.22. The left ankle brachial index by the dorsalis pedis is 1.12. VL/Lower Ext Art Exam w/o Exercis Interpretation Summary Right CEDRICK 1.17, normal. Doppler/PVR waveforms of the right leg normal at rest. Left CEDRICK 1.22, normal. Doppler/PVR waveforms of the left leg normal at rest. Ordering Physician: Akin Underwood Referring Physician: Fani Dugan Performed By: Elmira Ohara RDCS/RVT
--- NOTE | 2023-04-03 08:26 | WOUNDNOTE ---
wound photo: left foot
--- NOTE | 2023-04-03 08:27 | WOUNDNOTE ---
wound photo: left heel
[2023-04-03] MEDS: DULoxetine Hcl 60 MG Capsule PO ×2 (08:44→22:56)
[2023-04-03] MEDS: Gabapentin 300 MG Capsule PO ×2 (08:44→22:55)
[2023-04-03] MEDS: Enoxaparin 40 MG/0.4 ML Syringe SC (08:44)
[2023-04-03] MEDS: 0.9% Normal Saline 1,000 ML 100 ML IV ×2 (08:46→20:12)
[2023-04-03] MEDS: Aspirin 81 MG TAB.CHEW PO (08:49)
[2023-04-03] MEDS: Estradiol 1 MG Tablet PO (08:50)
[2023-04-03] MEDS: Hydroxychloroquine 200 MG Tablet PO ×2 (08:50→22:55)
[2023-04-03 09:00] VITALS: BP 106/59; PULSE 80; RESP 18; TEMP 37.1; O2SAT 96
--- NOTE | 2023-04-03 09:47 | CASEMGMT ---
Addendum entered by Faith Garcia 04/03/23 13:52: [facility] accepted pt and will plan to start care on Monday. Pt to dc on oral antibiotics. Pt aware. Addendum entered by Faith Garcia 04/03/23 12:07: ENOCH ARMSTRONG into pt room, pt has chosen 1. [facility] 2. [facility]. TC smam Swift at [facility], referral made, will await acceptance. Original Note: ENOCH ARMSTRONG into pt room, pt present, discussed dc planning. Pt states they have two nurses in the family and she would like to go home with [facility]. ID c/s, pt aware of potential IV atb. Discussed HHC and wound vac changes. Patient was provided a list of [facility] providers including quality and resource use data and consistent with the patient?s preferred geographic region, medical needs, and insurance network were provided from the [employer] Guide. Pt to review and ENOCH ARMSTRONG will check back. Pt denies further needs at this time.
--- NOTE | 2023-04-03 10:32 | PN.HOSP_ITS ---
Subjective Subjective Doing well, no issues overnight. We will place a wound VAC on the ulcer on her heel Objective Data Objective Data Vital Signs: Vital Signs Temp Pulse Resp BP Pulse Ox O2 Del Method O2 Flow Rate 98.8 F 80 18 106/59 L 96 Room Air 2 04/03/23 09:00 04/03/23 09:00 04/03/23 09:00 04/03/23 09:00 04/03/23 09:00 04/03/23 09:00 04/02/23 04:18 Oxygen Flow Rate (L/min) 2 Oxygen Delivery Method Room Air Weight: 248 lb 6.4 oz Body Mass Index (BMI) 37.8 Intake & Output: Intake and Output for Last 24 Hours 04/02/23 04/03/23 04/04/23 03:59 03:59 03:59 Intake Total 2852.75 / 2852.75 3240.0 / 3240.0 915 / 915 Output Total 500 / 500 Balance 2352.75 / 2352.75 3240.0 / 3240.0 915 / 915 Lab / Micro Data Result Diagrams: 04/03/23 05:34 04/03/23 05:34 Labs: Laboratory Results - last 24 hr 04/03/23 05:34: WBC 9.2, RBC 3.05 L, Hgb 8.2 L, Hct 26.5 L, MCV 86.9, MCH 26.9 L , MCHC 30.9 L, RDW Std Deviation 46.1 H, RDW Coeff of Jennifer 14.3, Plt Count 320, MPV 8.8, Immature Gran % (Auto) 0.500, Neut % (Auto) 62.1, Lymph % (Auto) 21.1, [place] % (Auto) 10.8 H, Eos % (Auto) 5.0, Baso % (Auto) 0.5, Absolute Neuts (auto) 5.7, Absolute Lymphs (auto) 1.94, Nucleated RBC % 0 04/03/23 05:34: Sodium 142, Potassium 3.5, Chloride 113 H, Carbon Dioxide 23.0, Anion Gap 6, BUN 5 L, Creatinine 1.12 H, Estim Creat Clear Calc 55.90, Est GFR (MDRD) Af Amer 64, Est GFR (MDRD) Non-Af 53 L, BUN/Creatinine Ratio 4.5 L, Glucose 96, Calcium 8.1 L Micro: Microbiology 03/31/23 Unknown Bone - 5th Toe Gram Stain - Final 03/31/23 Unknown Bone - 5th Toe Wound Culture - Final No growth aerobically. 03/31/23 Unknown Bone - 5th Toe Anaerobic Culture - Preliminary No growth in 48 hours. 03/31/23 Unknown Bone - 5th Toe Gram Stain - Final 03/31/23 Unknown Bone - 5th Toe Wound Culture - Final No growth aerobically. 03/31/23 Unknown Bone - 5th Toe Anaerobic Culture - Preliminary No growth in 48 hours. 03/30/23 15:00 Wound - Toe Gram Stain - Final 03/30/23 15:00 Wound - Toe Wound Culture - Final Streptococcus group A Meth. resistant Staph. aureus 03/30/23 15:00 Wound - Toe Anaerobic Culture - Preliminary Checking for anaerobes, further studies to follow. 03/30/23 13:40 Blood Culture (Wb) - Anticubital Left Blood Culture - Preliminary No growth in 48 hours. 03/30/23 12:55 Blood Culture (Wb) - Anticubital Left Blood Culture - Preliminary No growth in 48 hours. 03/30/23 14:30 Urine Catheter - Catheter Urine Culture - Preliminary Gram positive anthony Physical Exam Narrative General: Alert, Oriented x3, Cooperative, No apparent distress HEENT: Atraumatic, PERRLA, EOMI, Normocephalic Oral: Moist Mucosa Neck: Supple, No JVD Lungs: Diminished, Normal air movement, No rhonchi, No wheeze, No rales Cardiovascular: Regular rate, Regular Rhythm, Normal S1, Normal S2, No murmurs Abdomen: Soft, Non Tender, Non-Distended, No Hepato-splenomegaly Extremities: No edema, Capillary Refill Less than 3 Seconds Skin: Wound is dressed Musculoskeletal: No Tenderness to Palpation of Joints or Extremities Neurological: Motor Exam 5/5 strength throughout, decreased sensation peripherally lower extremities chronic Psych/Mental Status: Normal Affect, Appropriate Assessment & Plan Assessment/Plan (1) Osteomyelitis of toe of left foot: PLAN: Plan 1. Sepsis secondary a left foot infection on her fifth toe ? Consult podiatry, status post fifth toe resection 03/31/2023 ? MRI for osteomyelitis was negative ? Continue with antibiotics ?Wound cultures with MRSA and group A strep ?We will continue with IV fluids for 1 more day ? Consult to ID for antibiotic recommendations on discharge. We are awaiting approval for a wound VAC to go home with based on her ulcer wound on her left heel. 2. 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 Continue with her hydroxychloroquine and gabapentin ? She only follows up with rheumatology once a year so she is unclear how controlled her lupus is 3. Anxiety/depression ? Stable ? Continue with Cymbalta DVT: Lovenox Charges/Coding Visit Charges Inpatient E&M: 27577 Subs Hosp L2
[2023-04-03 12:55] LABS: Ferritin 145 ng/mL (8-252); Iron 34 ug/dL (50-170); Iron Binding Capacity,Total 182 ug/dL (250-450); PERCENT IRON SATURATION 18.7 % (15.0-55.0)
[2023-04-03] MEDS: 0.9% Saline Lock 10 ML Syringe IV ×3 (13:14→22:54)
[2023-04-03] MEDS: Ondansetron 4 MG/2 ML Vial IV (13:14)
[2023-04-03] MEDS: Ensure Plus High Protein 120 ML LIQUID PO ×2 (13:15→18:19)
--- NOTE | 2023-04-03 14:02 | CON.PCM.ID_ITS ---
Assessment & Plan Assessment/Plan (1) Osteomyelitis of toe of left foot: PLAN: Now s/p L 5th toe amp by Dr. Underwood 03/31/23. Clearance cx neg. Wound cx with MRSA, GAS. Ok for home with 5 more days po keflex and doxy. Will follow as needed, thank you, d/w Dr. Moralez HPI Consult Data Date of Consult: 04/03/23 HPI Narrative Reason for Consultation: osteo HPI Narrative: CHAPO PEREZ, is a 57 F who presented 03/30 with one week not feeling well, fever, progressive L toe redness, swelling, and drainage. Came to ED, admitted on vanc/zosyn. Imaging showed osteo, taken to OE 03/[address] Underwood for toe amputation. Feeling better, redness improved, fever resolved. Full ROS performed and neg except as noted above PFSH Medical History Ambulates with cane Arthritis Connective tissue disease CPAP (continuous positive airway pressure) dependence Fibromyalgia Heartburn History of IBS Lupus Non-smoker Sjogren syndrome with dental involvement Sjogren syndrome with keratoconjunctivitis Sjogren syndrome with peripheral nervous system involvement Walker as ambulation aid Wears contact lenses Wears glasses Home Medications cyclobenzaprine 10 mg tablet 10 mg PO TID 04/15/20 [History Last Taken Unknown] duloxetine 60 mg capsule,delayed release 60 mg PO BID 04/15/20 [History Last Taken Unknown] estradiol 1 mg tablet 1 mg PO DAILY 04/15/20 [History Last Taken Unknown] gabapentin 300 mg capsule 300 mg PO BID 04/15/20 [History Last Taken Unknown] hydroxychloroquine 200 mg tablet 200 mg PO BID 04/15/20 [History Last Taken Unknown] lorazepam 1 mg tablet 1 mg PO PRN PRN Anxiety 04/15/20 [History Last Taken Unknown] zolpidem 10 mg tablet 10 mg PO PCHS 04/15/20 [History Last Taken Unknown] aspirin 81 mg capsule 81 mg PO DAILY #20 caps 02/03/23 [Rx Last Taken Unknown] oxycodone 5 mg capsule 5 mg PO Q6H PRN pain 7 days #28 caps 02/03/23 [Rx Last Taken Unknown] amoxicillin 875 mg-potassium clavulanate 125 mg tablet 1 tab PO BID #10 tabs 04/03/23 [Rx Last Taken Unknown] doxycycline hyclate 100 mg capsule 100 mg PO BID #10 caps 04/03/23 [Rx Last Taken Unknown] Allergy/AdvReac Type Severity Reaction Status Date / Time Gadolinium-MRI Contrast Allergy Intermediate Hives Verified 03/30/23 17:09 Medium [CONTRAST] Iodinated Contrast Media [CT] Allergy Rash Verified 03/30/23 17:09 morphine Allergy Hives Verified 03/30/23 17:09 sertraline [From Zoloft] Allergy Swelling Verified 03/30/23 17:09 Family History (Updated 03/31/23 @ 15:[address] Chace Carrero MD) Father Pseudocholinesterase deficiency Surgical History History of hysterectomy Hx of Achilles tendon repair Hx of cholecystectomy Social History Smoking Status: Never smoker Physical Exam Const alert, oriented x3 and no apparent distress General Appearance: cooperative HEENT normocephalic and head/scalp atraumatic Eyes PERRL and EOMs intact bilaterally Neck supple and No nodes Resp normal air movement and clear to auscultation bilaterally Cardio regular rate and regular rhythm GI soft to palpation, non-tender and non-distended Extremity General Extremity: Negative for edema Skin Skin Narrative: reviewed photos Neuro CN's II-XII intact bilaterally Lab / Micro Data Attestation: I reviewed the patient's lab results. Result Diagrams: 04/03/23 05:34 04/03/23 05:34 Labs: Laboratory Results - last 24 hr 04/03/23 05:34: WBC 9.2, RBC 3.05 L, Hgb 8.2 L, Hct 26.5 L, MCV 86.9, MCH 26.9 L , MCHC 30.9 L, RDW Std Deviation 46.1 H, RDW Coeff of Jennifer 14.3, Plt Count 320, MPV 8.8, Immature Gran % (Auto) 0.500, Neut % (Auto) 62.1, Lymph % (Auto) 21.1, [place] % (Auto) 10.8 H, Eos % (Auto) 5.0, Baso % (Auto) 0.5, Absolute Neuts (auto) 5.7, Absolute Lymphs (auto) 1.94, Nucleated RBC % 0 04/03/23 05:34: Sodium 142, Potassium 3.5, Chloride 113 H, Carbon Dioxide 23.0, Anion Gap 6, BUN 5 L, Creatinine 1.12 H, Estim Creat Clear Calc 55.90, Est GFR (MDRD) Af Amer 64, Est GFR (MDRD) Non-Af 53 L, BUN/Creatinine Ratio 4.5 L, Glucose 96, Calcium 8.1 L 04/03/23 05:34: Iron 34 L, TIBC 182 L, Iron Saturation 18.7, Ferritin 145 Micro: Microbiology 03/31/23 Unknown Bone - 5th Toe Gram Stain - Final 03/31/23 Unknown Bone - 5th Toe Wound Culture - Final No growth aerobically. 03/31/23 Unknown Bone - 5th Toe Anaerobic Culture - Preliminary No growth in 48 hours. 03/31/23 Unknown Bone - 5th Toe Gram Stain - Final 03/31/23 Unknown Bone - 5th Toe Wound Culture - Final No growth aerobically. 03/31/23 Unknown Bone - 5th Toe Anaerobic Culture - Preliminary No growth in 48 hours.
[2023-04-03] MEDS: Bisacodyl 5 MG Tablet 10 MG PO ×2 (14:31→22:55)
[2023-04-03 14:37] VITALS: BP 121/78; PULSE 88; RESP 18; TEMP 36.6; O2SAT 97
[2023-04-03 14:42] VITALS: BP 121/78; PULSE 88; RESP 18; TEMP 36.1; O2SAT 97
--- NOTE | 2023-04-03 15:37 | CHAPLAIN ---
Type of Pastoral Visit _x__ Initial Visit ___ Follow-up Visit ___ On-call Visit ___ General Patient Visit ___ Spiritual Assessment ___ Family Conference ___ Bereavement ___ Rapid Response ___ Code Blue ___ Other (describe below) Pastoral Care Referral From _x__ Patient ___ Family ___ Nurse ___ Physician ___ Fiber Drier Operator ___ Front Desk Receptionist ___ Other (describe below) Sacrament/Intervention ___ Active listening ___ Anointing ___ Latter-Day ___ Bereavement ___ Communion ___ Vanesa exploration ___ ___ Life review ___ Prayer ___ Reconciliation ___ Sacrament of Sick _x__ Supportive presence ___ Wedding ___ Other (describe below) Pastoral Comments patient is asleep but spouse is awake and in chair; spouse welcomes the offer of support but indicates pt is fine and just needs to sleep for now; offer given for other needs addressed or support
[2023-04-03 20:14] VITALS: BP 108/76; PULSE 91; RESP 18; TEMP 36.9; O2SAT 97
[2023-04-03] MEDS: LORazepam 1 MG Tablet PO (20:47)
[2023-04-03] MEDS: Zolpidem Tartrate 5 MG Tablet PO (23:16)
[2023-04-04 03:43] VITALS: BP 107/65; PULSE 80; RESP 18; TEMP 36.4; O2SAT 96
--- NOTE | 2023-04-04 06:29 | WOUNDNOTE ---
Home VAC approved.
[2023-04-04] MEDS: 0.9% Normal Saline 1,000 ML 100 ML IV (06:43)
[2023-04-04] MEDS: cycloBENZAPRine HCl 10 MG Tablet PO (06:45)
[2023-04-04 07:31] LABS: Absolute Lymphocyte Count 1.78 X10^3/uL (0.83-4.51); Basophil# 0.06 X10^3/uL; Basophil% 0.6 % (0-1); Eosinophils% 3.9 % (0-5); Hematocrit 26.5 % (37-47); Hemoglobin 8.4 g/dL (12.0-15.0); Lymphocyte # 1.78 X10^3/ul (0.83-4.51); Lymphocyte % 17.4 % (19-41); Mean Corp Hgb Conc 31.7 g/dL (32-36); Mean Corpuscular Hgb 27.3 pg (27.0-32.0); Mean Platelet Vol. 8.7 fl (6.2-12.0); Monocyte# 0.99 X10^3/uL; Monocyte% 9.7 % (0-10); NRBC Flagged by Analyzer 0 % (0-5); Neutrophil # 6.97 X10^3/uL (2.7-7.7); Platelet Count 305 K/mm3 (150-450); RBC Distribution Width CV 14.5 % (11.6-14.6); RBC Distribution Width SD 45.3 fl (35.1-43.9); Red Blood Count 3.08 M/mm3 (4.2-5.4); White Blood Count 10.2 K/mm3 (4.4-11.0)
[2023-04-04 07:58] LABS: Anion Gap 4 (5-15); BUN 4 mg/dL (7-18); BUN/Creat Ratio 3.4 RATIO (10-20); Calcium,Total 8.5 mg/dL (8.5-10.1); Chloride 114 mmol/L (98-107); Creatinine, Serum 1.19 mg/dL (0.55-1.02); EST Glomerular Filtration Rate 50 mL/min (>60); Est Glom Filt Rate - Afr Amer 60 mL/min (>60); Estimated Creatinine Clearance 52.62 ml/min; Glucose 91 mg/dL (74-106); Potassium 3.4 mmol/L (3.5-5.1); Sodium Level 142 mmol/L (136-145)
[2023-04-04 08:05] LABS: Vancomycin, Trough Level 29.8 ug/mL (5.0-15.0)
--- NOTE | 2023-04-04 08:20 | PCM.RX.CS ---
Consult Pharmacy has been consulted to manage selected antiobiotic: Vancomycin Type of Consult: Follow-up Labs: Sodium 142 mmol/L (136-145) 04/04/23 07:23 Potassium 3.4 mmol/L (3.5-5.1) L 04/04/23 07:23 Chloride 114 mmol/L (98-107) H 04/04/23 07:23 Carbon Dioxide 24.0 mmol/L (21.0-32.0) 04/04/23 07:23 Anion Gap 4 (5-15) L 04/04/23 07:23 BUN 4 mg/dL (7-18) L 04/04/23 07:23 Creatinine 1.19 mg/dL (0.55-1.02) H 04/04/23 07:23 Est GFR (MDRD) Af Amer 60 mL/min (>60) 04/04/23 07:23 Est GFR (MDRD) Non-Af 50 mL/min (>60) L 04/04/23 07:23 BUN/Creatinine Ratio 3.4 RATIO (10-20) L 04/04/23 07:23 Glucose 91 mg/dL (74-106) 04/04/23 07:23 Vancomycin Trough 29.8 ug/mL (5.0-15.0) H 04/04/23 07:23 Microbiology: Microbiology 03/30/23 14:30 Urine Catheter - Catheter Urine Culture - Final Corynebacterium striatum 03/31/23 Unknown Bone - 5th Toe Gram Stain - Final 03/31/23 Unknown Bone - 5th Toe Wound Culture - Final No growth aerobically. 03/31/23 Unknown Bone - 5th Toe Anaerobic Culture - Preliminary No growth in 48 hours. 03/31/23 Unknown Bone - 5th Toe Gram Stain - Final 03/31/23 Unknown Bone - 5th Toe Wound Culture - Final No growth aerobically. 03/31/23 Unknown Bone - 5th Toe Anaerobic Culture - Preliminary No growth in 48 hours. 03/30/23 15:00 Wound - Toe Gram Stain - Final 03/30/23 15:00 Wound - Toe Wound Culture - Final Streptococcus group A Meth. resistant Staph. aureus 03/30/23 15:00 Wound - Toe Anaerobic Culture - Preliminary Checking for anaerobes, further studies to follow. 03/30/23 13:40 Blood Culture (Wb) - Anticubital Left Blood Culture - Preliminary No growth in 48 hours. 03/30/23 12:55 Blood Culture (Wb) - Anticubital Left Blood Culture - Preliminary No growth in 48 hours. Goal Trough: 15-20 mcg/mL Pharmacy Plan for Drug Dosing: VANCOMYCIN LEVEL RECEIVED Current Vancomycin Dose: 1250MG Q12 Number of Doses Received: 10 Vancomycin Level: 29.8 MG/DL Hours Since Last Dose: 11 Renal Function: SCR 1.19 MG/DL, CRCL 68.7 ML/MIN USING ADJ BW Renal Function Trend: STABLE Lab/Micro: MRSA IN WOUND CX Vancomycin Plan/Comments: TROUGH IS SUPRATHERAPEUTIC AT 29.8 MG/DL (GOAL 15-20). WILL HOLD FURTHER DOSES AND GET A TROUGH IN 24 HOURS. RESTART AT REDUCED DOSE WHEN TROUGH IS <20 MG/DL. Pending Level: 04/05/23 @ 0730 - RANDOM Pharmacy Service will continue to monitor and adjust dosing as required.
[2023-04-04 09:00] VITALS: BP 104/63; PULSE 87; RESP 18; TEMP 36.6; O2SAT 97
[2023-04-04] MEDS: Estradiol 1 MG Tablet PO (09:02)
[2023-04-04] MEDS: DULoxetine Hcl 60 MG Capsule PO (09:02)
[2023-04-04] MEDS: Aspirin 81 MG TAB.CHEW PO (09:03)
[2023-04-04] MEDS: Ensure Plus High Protein 120 ML LIQUID PO (09:03)
[2023-04-04] MEDS: Hydroxychloroquine 200 MG Tablet PO (09:03)
[2023-04-04] MEDS: Enoxaparin 40 MG/0.4 ML Syringe SC (09:04)
[2023-04-04] MEDS: Gabapentin 300 MG Capsule PO (09:08)
[2023-04-04 09:19] VITALS: BP 104/63; PULSE 87; RESP 18; TEMP 36.6; O2SAT 98
[2023-04-04 09:38] VITALS: RESP 18
--- NOTE | 2023-04-04 09:38 | DCINST_ITS ---
Discharge Instructions Diet Discharge Diet: No restrictions Activity Discharge Activity: Return to Normal Activity Weight Bearing Status: No weight bearing (Left lower extremity) Dressing / Incision Call your doctor if you observe: Fever of 101 or Higher, Shortness of breath, Dizziness, Fainting spells, Swelling in the ankles, Chest pain and Increased palpitations (irregular heartbeat) Follow Up Care Test Results: Test results from this visit will be discussed in further detail at your follow- up appointment, if applicable. Discharge Plan Admission Admit Date/Time: 03/30/23 15:36 Attending Provider: Andrez Moralez Primary Care Provider: Fani Dugan Consulting Providers: Akin Underwood ; Swapna Echols ; Flynn Reyes Instructions Additional Instructions / Restrictions: Given theFollow-up with your PCP in 3 to 5 days to monitor your hemoglobin as well as your renal function antibiotics and recent surgery. Discharge Orders/Prescriptions Prescriptions: New doxycycline hyclate 100 mg capsule 100 mg PO BID Qty: 10 0RF amoxicillin-pot clavulanate 875-125 mg tablet 1 tab PO BID Qty: 10 0RF Continued cyclobenzaprine 10 MG tablet 10 mg PO TID estradiol 1 MG tablet 1 mg PO DAILY gabapentin 300 MG capsule 300 mg PO BID lorazepam 1 MG tablet 1 mg PO PRN PRN (Reason: Anxiety) hydroxychloroquine 200 MG tablet 200 mg PO BID zolpidem 10 MG tablet 10 mg PO PCHS duloxetine 60 MG capsule 60 mg PO BID aspirin 81 mg capsule 81 mg PO DAILY Qty: 20 0RF oxycodone 5 mg capsule 5 mg PO Q6H PRN (Reason: pain) 7 Days Qty: 28 0RF Discontinued doxycycline monohydrate 100 mg capsule 100 mg PO BID Qty: 20 0RF Referrals / Follow Up: Fani Dugan MD [Primary Care Provider] - Within 1 Week Akin Underwood DPM [Med Staff - Active Staff] - Within 2 Weeks Disposition Disposition (needs filled in before D/C Order can be placed): Home Health Service
--- NOTE | 2023-04-04 09:58 | CASEMGMT ---
Notified Jeniffer at [facility] that pt will dc today.
--- NOTE | 2023-04-04 10:40 | CASEMGMT ---
Discharge Planning Ref[facility] sent [facility] Isadora Brower, Discharge Planning Asst.
--- NOTE | 2023-04-04 10:48 | PCM.PROGNOTE ---
Subjective Subjective Patient seen this a.m. resting in bed with present. She denies any constitutional symptoms. Denies further complaints. States she is ready to go home and is feeling overall much better. Objective Data Objective Data Vital Signs: Vital Signs Temp Pulse Resp BP Pulse Ox O2 Del Method O2 Flow Rate 97.9 F 87 18 104/63 98 Room Air 2 04/04/23 09:19 04/04/23 09:19 04/04/23 09:38 04/04/23 09:19 04/04/23 09:19 04/04/23 09:38 04/04/23 03:43 Oxygen Flow Rate (L/min) 2 Oxygen Delivery Method Room Air Weight: 112.672 kg Body Mass Index (BMI) 37.8 Intake & Output: Intake and Output for Last 24 Hours 04/02/23 04/03/23 04/04/23 23:59 23:59 23:59 Intake Total 3240.0 / 3240.0 4768.33 / 4768.33 1185 / 1185 Balance 3240.0 / 3240.0 4768.33 / 4768.33 1185 / 1185 Lab / Micro Data Result Diagrams: 04/04/23 07:23 04/04/23 07:23 Labs: Laboratory Results - last 24 hr 04/03/23 05:34: Iron 34 L, TIBC 182 L, Iron Saturation 18.7, Ferritin 145 04/04/23 07:23: Vancomycin Trough 29.8 H 04/04/23 07:23: WBC 10.2, RBC 3.08 L, Hgb 8.4 L, Hct 26.5 L, MCV 86.0, MCH 27.3, MCHC 31.7 L, RDW Std Deviation 45.3 H, RDW Coeff of Jennifer 14.5, Plt Count 305, MPV 8.7, Immature Gran % (Auto) 0.400, Neut % (Auto) 68.0, Lymph % (Auto) 17.4 L, [place] % (Auto) 9.7, Eos % (Auto) 3.9, Baso % (Auto) 0.6, Absolute Neuts (auto) 7.0, Absolute Lymphs (auto) 1.78, Nucleated RBC % 0 04/04/23 07:23: Sodium 142, Potassium 3.4 L, Chloride 114 H, Carbon Dioxide 24.0, Anion Gap 4 L, BUN 4 L, Creatinine 1.19 H, Estim Creat Clear Calc 52.62, Est GFR (MDRD) Af Amer 60, Est GFR (MDRD) Non-Af 50 L, BUN/Creatinine Ratio 3.4 L, Glucose 91, Calcium 8.5 Micro: Microbiology 03/30/23 15:00 Wound - Toe Gram Stain - Final 03/30/23 15:00 Wound - Toe Wound Culture - Final Streptococcus group A Meth. resistant Staph. aureus 03/30/23 15:00 Wound - Toe Anaerobic Culture - Final Anaerobic cocci Anaerobic cocci#2 03/30/23 14:30 Urine Catheter - Catheter Urine Culture - Final Corynebacterium striatum 03/31/23 Unknown Bone - 5th Toe Gram Stain - Final 03/31/23 Unknown Bone - 5th Toe Wound Culture - Final No growth aerobically. 03/31/23 Unknown Bone - 5th Toe Anaerobic Culture - Preliminary No growth in 48 hours. 03/31/23 Unknown Bone - 5th Toe Gram Stain - Final 03/31/23 Unknown Bone - 5th Toe Wound Culture - Final No growth aerobically. 03/31/23 Unknown Bone - 5th Toe Anaerobic Culture - Preliminary No growth in 48 hours. 03/30/23 13:40 Blood Culture (Wb) - Anticubital Left Blood Culture - Preliminary No growth in 48 hours. 03/30/23 12:55 Blood Culture (Wb) - Anticubital Left Blood Culture - Preliminary No growth in 48 hours. Physical Exam Narrative Left foot s/p left 5th toe amputation, there is residual cellulitis but improving to the dorsal and lateral foot and also some to plantar arch with edema, there is some serous drainage from the surgical site - less than yesterday, no visible abscess, no necrosis, no fluctuance, no crepitus, no maloder, there is ulceration plantar left heel down to subcutaneous tissue with granular base and viable margins and no evidence of infection to the heel at this time. CFT < 2 seconds to all toes on left foot and vascular status intact to the left foot, peripheral neuropathy present to the left foot - chronic. Contracture of lesser toes left foot - chronic. No POP or pain on ROM to the foot or ankle. Const alert, oriented x3 and no apparent distress Assessment & Plan Assessment/Plan (1) Cellulitis of left lower limb: (2) Other hereditary and idiopathic neuropathies: (3) Osteomyelitis of toe of left foot: (4) Chronic ulcer of left heel with fat layer exposed: PLAN: Plan Patient seen and evaluated . Reviewed diagnostic data. She is s/p left 5th toe amputation due to infection on 03/31/2023, POD #4. A culture was obtained from left 5th toe ulceration and sent to microbiology - MRSA and strep A noted, surgical cultures also obtained as well, awaiting results. Currently on IV antibiotics - Vanc and Zosyn. Infectious Disease has been consulted and recommending outpatient oral antibiotics. Patient admitted to hospital medicine, they are greatly appreciated and their management. LEAS ordered for check LE arterial flow. Left foot wound care: Sutures intact to distal amputation stump with proximal region currently packed with 1/4 Iodoform to surgical site with overlying gauze, kerlix and trang dressing - change daily. Wound VAC currently in place to plantar left heel ulceration. She is to remain non-weightbearing left foot, keep foot elevated to aid in postoperative edema control. Upon discharge patient will follow-up with Dr. Oconnell in office for continued wound care. Jr. Mildred Valenzuela.P.M. [facility] [phone]
--- NOTE | 2023-04-04 11:29 | WOUNDNOTE ---
Pt switched over to the home VAC. reviewed alarms, etc. with patient and . proof of delivery signed and faxed to [facility]. pt denies questions. pt to follow with podiatry. home health will change the VAC dressings at home.
[2023-04-04 11:39] VITALS: BP 108/70; PULSE 78; RESP 18; TEMP 37.2; O2SAT 97
--- NOTE | 2023-04-04 12:03 | PCM.DC.SUM ---
Providers Date of Admission: 03/30/23 Primary Care Physician: Dr. Fain Dugan MD Consultations 03/30/23 15:30 Consult: Podiatry Routine Consulting Provider: Akin Underwood Reason for Consult: Infected neuropathic ulcer withy osteomyelitis EMERGENT Consult: No Notified: Yes Date Notified: 03/30/23 Time Notified: 15:32 Method of Notification: ED Physician Initiated 04/03/23 07:19 Consult: Infectious Disease Routine Consulting Provider: Flynn Reyes Reason for Consult: abx selection for resected osteo EMERGENT Consult: No Notified: Yes Date Notified: 04/03/23 Time Notified: 09:00 Method of Notification: Text 04/03/23 07:59 Consult: Onc/Wound/circuit breaker mechanic Routine Comment: Reason for Consult:: left foot Reason For Visit: SEPSIS LEFT CELLULITIS Diagnosis Discharge Diagnosis (1) Cellulitis of left lower limb: Status: Acute Code(s): L03.116 - Cellulitis of left lower limb (2) Other hereditary and idiopathic neuropathies: Status: Acute Code(s): G60.8 - Other hereditary and idiopathic neuropathies (3) Osteomyelitis of toe of left foot: Status: Acute Code(s): M86.9 - Osteomyelitis, unspecified (4) Chronic ulcer of left heel with fat layer exposed: Status: Chronic Code(s): L97.422 - Non-pressure chronic ulcer of left heel and midfoot with fat layer exposed Plan 1. Sepsis secondary a left foot infection on her fifth toe ? Consult podiatry, status post fifth toe resection 03/31/2023 ? MRI for osteomyelitis was negative ? Continue with antibiotics ?Wound cultures with MRSA and group A strep ?We will continue with IV fluids for 1 more day ? Consult to ID for antibiotic recommendations on discharge. We are awaiting approval for a wound VAC to go home with based on her ulcer wound on her left heel. 2. 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 Continue with her hydroxychloroquine and gabapentin ? She only follows up with rheumatology once a year so she is unclear how controlled her lupus is 3. Anxiety/depression ? Stable ? Continue with Cymbalta DVT: Lovenox Medications at Discharge Home Medications cyclobenzaprine 10 mg tablet 10 mg PO TID 04/15/20 duloxetine 60 mg capsule,delayed release 60 mg PO BID 04/15/20 estradiol 1 mg tablet 1 mg PO DAILY 04/15/20 gabapentin 300 mg capsule 300 mg PO BID 04/15/20 hydroxychloroquine 200 mg tablet 200 mg PO BID 04/15/20 lorazepam 1 mg tablet 1 mg PO PRN PRN Anxiety 04/15/20 zolpidem 10 mg tablet 10 mg PO PCHS 04/15/20 aspirin 81 mg capsule 81 mg PO DAILY #20 caps 02/03/23 oxycodone 5 mg capsule 5 mg PO Q6H PRN pain 7 days #28 caps 02/03/23 amoxicillin 875 mg-potassium clavulanate 125 mg tablet 1 tab PO BID #10 tabs 04/03/23 doxycycline hyclate 100 mg capsule 100 mg PO BID #10 caps 04/03/23 Hospital Course Operations None Procedures - (ABIs, left fifth toe amputation) Summary of Care Provided Minutes Spent on Discharge: 41 Hospital Course: Per HPI: CHAPO PEREZ, is a 57 F with a history of SLE and peripheral neuropathy and chronic nonhealing ulcer involving the left heel.? Patient follows up with podiatry as an outpatient.? Patient presents with 2 to 3 days history of high-grade fever, malaise, chills and anorexia.? Also noted a wound in the fourth webspace closer to the fifth toe that has been draining.? Found to have tachycardia, leukocytosis markedly elevated sed rate and CRP in the emergency department and has been started on IV fluids and IV antibiotics. Plain x-ray of the foot showed fracture of the distal fifth phalanx proximally. Podiatry surgeon just rounding up with patient and foot has been dressed. Hospital Course: 1. Sepsis secondary to left foot infection with osteo of her left fifth toe?57-year-old female presents to the hospital with a history of lupus and peripheral neuropathy from that. She has a left fifth toe osteomyelitis as well as a left heel ulcer. She was taken to the OR for amputation as well as ABIs that demonstrate calcifications. She was started on vancomycin and Zosyn, cultures ultimately demonstrated MRSA and group A strep. Infectious disease was consulted for outpatient antibiotics. She was discharged on p.o. doxycycline as well as p.o. Augmentin for 5 more days. I do recommend she follow-up with her PCP as well as podiatry as an outpatient. She did develop some postoperative anemia secondary to IV fluids. Iron studies were unremarkable with a slightly low iron but saturation and ferritin were both normal. She has been constipated for several days and was given a stool softener yesterday. She did have a bowel movement that was neither dark nor bloody. I do recommend she follow-up with her PCP for outpatient lab work for her creatinine as well as her anemia. I discussed with her the plan for discharge and she expressed understanding of the risk benefits of going home and would like to go home today. She will need home health care to help with the wound VAC dressing of her heel. 2. Lupus with peripheral neuropathy, anxiety, chronic medical conditions which complicate her care. Her home medications were continued where appropriate Physical Exam Narrative General: Alert, Oriented x3, Cooperative, No apparent distress HEENT: Atraumatic, PERRLA, EOMI, Normocephalic Oral: Moist Mucosa Neck: Supple, No JVD Lungs: Diminished, Normal air movement, No rhonchi, No wheeze, No rales Cardiovascular: Regular rate, Regular Rhythm, Normal S1, Normal S2, No murmurs Abdomen: Soft, Non Tender, Non-Distended, No Hepato-splenomegaly Extremities: No edema, Capillary Refill Less than 3 Seconds Skin: Wound is dressed, wound VAC to left heel Musculoskeletal: No Tenderness to Palpation of Joints or Extremities Neurological: Motor Exam 5/5 strength throughout, decreased sensation peripherally lower extremities chronic Psych/Mental Status: Normal Affect, Appropriate Weight / BMI Weight Weight: 248 lb 6.4 oz Body Mass Index (BMI) 37.8 ABG / Lab / Microbiology Data Result Diagrams: 04/04/23 07:23 04/04/23 07:23 Laboratory: Laboratory Results - last 24 hr 04/03/23 05:34: Iron 34 L, TIBC 182 L, Iron Saturation 18.7, Ferritin 145 04/04/23 07:23: Vancomycin Trough 29.8 H 04/04/23 07:23: WBC 10.2, RBC 3.08 L, Hgb 8.4 L, Hct 26.5 L, MCV 86.0, MCH 27.3, MCHC 31.7 L, RDW Std Deviation 45.3 H, RDW Coeff of Jennifer 14.5, Plt Count 305, MPV 8.7, Immature Gran % (Auto) 0.400, Neut % (Auto) 68.0, Lymph % (Auto) 17.4 L, Thurston % (Auto) 9.7, Eos % (Auto) 3.9, Baso % (Auto) 0.6, Absolute Neuts (auto) 7.0, Absolute Lymphs (auto) 1.78, Nucleated RBC % 0 04/04/23 07:23: Sodium 142, Potassium 3.4 L, Chloride 114 H, Carbon Dioxide 24.0, Anion Gap 4 L, BUN 4 L, Creatinine 1.19 H, Estim Creat Clear Calc 52.62, Est GFR (MDRD) Af Amer 60, Est GFR (MDRD) Non-Af 50 L, BUN/Creatinine Ratio 3.4 L, Glucose 91, Calcium 8.5 Microbiology: Microbiology 03/30/23 15:00 Wound - Toe Gram Stain - Final 03/30/23 15:00 Wound - Toe Wound Culture - Final Streptococcus group A Meth. resistant Staph. aureus 03/30/23 15:00 Wound - Toe Anaerobic Culture - Final Anaerobic cocci Anaerobic cocci#2 03/30/23 14:30 Urine Catheter - Catheter Urine Culture - Final Corynebacterium striatum 03/31/23 Unknown Bone - 5th Toe Gram Stain - Final 03/31/23 Unknown Bone - 5th Toe Wound Culture - Final No growth aerobically. 03/31/23 Unknown Bone - 5th Toe Anaerobic Culture - Preliminary No growth in 48 hours. 03/31/23 Unknown Bone - 5th Toe Gram Stain - Final 03/31/23 Unknown Bone - 5th Toe Wound Culture - Final No growth aerobically. 03/31/23 Unknown Bone - 5th Toe Anaerobic Culture - Preliminary No growth in 48 hours. 03/30/23 13:40 Blood Culture (Wb) - Anticubital Left Blood Culture - Preliminary No growth in 48 hours. 03/30/23 12:55 Blood Culture (Wb) - Anticubital Left Blood Culture - Preliminary No growth in 48 hours. D/C Instructions Discharge Diet: No restrictions Weight Bearing Status: No weight bearing (Left lower extremity) Call your doctor if you observe: Fever of 101 or Higher, Shortness of breath, Dizziness, Fainting spells, Swelling in the ankles, Chest pain and Increased palpitations (irregular heartbeat) Meaningful Use Info Meaningful Use Diagnoses (Choose all that apply): None applicable Discharge Plan Admission Admit Date/Time: 03/30/23 15:36 Attending Provider: Andrez Moralez Primary Care Provider: Fani Dugan Consulting Providers: Akin Underwood ; Swapna Echols ; Flynn Reyes Instructions Additional Instructions / Restrictions: Given theFollow-up with your PCP in 3 to 5 days to monitor your hemoglobin as well as your renal function antibiotics and recent surgery. Discharge Orders/Prescriptions Prescriptions: New doxycycline hyclate 100 mg capsule 100 mg PO BID Qty: 10 0RF amoxicillin-pot clavulanate 875-125 mg tablet 1 tab PO BID Qty: 10 0RF Continued cyclobenzaprine 10 MG tablet 10 mg PO TID estradiol 1 MG tablet 1 mg PO DAILY gabapentin 300 MG capsule 300 mg PO BID lorazepam 1 MG tablet 1 mg PO PRN PRN (Reason: Anxiety) hydroxychloroquine 200 MG tablet 200 mg PO BID zolpidem 10 MG tablet 10 mg PO PCHS duloxetine 60 MG capsule 60 mg PO BID aspirin 81 mg capsule 81 mg PO DAILY Qty: 20 0RF oxycodone 5 mg capsule 5 mg PO Q6H PRN (Reason: pain) 7 Days Qty: 28 0RF Discontinued doxycycline monohydrate 100 mg capsule 100 mg PO BID Qty: 20 0RF Referrals / Follow Up: Fani Dugan MD [Primary Care Provider] - Within 1 Week Akin Underwood DPM [Med Staff - Active Staff] - Within 2 Weeks Disposition Disposition (needs filled in before D/C Order can be placed): Home Health Service Charges/Coding Visit Charges Inpatient E&M: 25685 Disch Hosp >30min
== END 2023-04-04 11:50 | disposition home health service (06) | DRG 854 ==
LOC: ED 15:05 → MS3 15:21
PROVIDERS: Anesthesiology; Podiatrist; Admitting Provider Internal Medicine; Emergency Provider Student in an Organized Health Care Education/Training Program; PCP Family Medicine; Visit Provider Family Medicine
PROC: 0Y6Y0Z0 Detachment at Left 5th Toe, Complete, Open Approach (ICD-10-PCS; principal; 2023-03-31 13:45)
DX: A41.02 Sepsis due to Methicillin resistant Staphylococcus aureus (principal); L03.116 Cellulitis of left lower limb; M86.172 Other acute osteomyelitis, left ankle and foot; L97.422 Non-pressure chronic ulcer of left heel and midfoot with fat layer exposed; Z68.41 Body mass index [BMI] 40.0-44.9, adult; G60.8 Other hereditary and idiopathic neuropathies; E11.40 Type 2 diabetes mellitus with diabetic neuropathy, unspecified; D64.89 Other specified anemias; E11.69 Type 2 diabetes mellitus with other specified complication; E66.01 Morbid (severe) obesity due to excess calories; M32.9 Systemic lupus erythematosus, unspecified; F32.A Depression, unspecified; F41.9 Anxiety disorder, unspecified; K59.00 Constipation, unspecified; L03.032 Cellulitis of left toe; B95.0 Streptococcus, group A, as the cause of diseases classified elsewhere; Z79.82 Long term (current) use of aspirin; Z79.899 Other long term (current) drug therapy
CPT/HCPCS: 36415; 71045; 73630; 73718; 80048; 80053; 80202; 81001; 82728; 83540; 83550; 83605; 84484; 85025; 85610; 85652; 85730; 86140; 87015; 87040; 87070; 87075; 87077; 87086; 87088; 87102; 87116; 87186; 87205; 87206; 87640; 88305; 88311; 93005; 93923; 94762; 97116; 97162; 97165; 97530; 97535; 97802; 99285; J7030; J7040; J7050; J7120; A4216; J2405

== ENCOUNTER → 2023-05-23 | Outpatient (CLI) | payer MEDICARE, BC, SELFPAY ==
--- NOTE | 2023-05-23 13:50 | MRI_ITS ---
STUDY: MRI RIGHT FOREFOOT WITHOUT CONTRAST REASON FOR EXAM: Female, 57 years old. OSTEOMYELITIS RT 3RD TOE TECHNIQUE: Standardized fat and water weighted pulse sequences were obtained in all 3 orthogonal planes. COMPARISON: None. FINDINGS: Normal metatarsophalangeal joint of the hallux. Normal tibial and fibular sesamoids, with normal sesamoids-first metatarsal articulations. Normal interphalangeal joint of the hallux. Normal proximal and distal phalanges of the great toe. Normal medial and lateral heads of the flexor hallucis brevis tendons. Normal flexor and extensor hallucis longus tendons. Normal second through fifth metatarsophalangeal (MTP) joints. Normal interphalangeal joints of the second through fifth toes. Normal proximal, middle and distal phalanges of the second through fifth toes. Normal first through fourth intermetatarsal spaces. Normal flexor and extensor tendons of the second through fifth toes. Normal visualized metatarsi. Normal intrinsic muscles of the forefoot. There is no demonstrated soft tissue abnormality. MRI/Lower Ext/No Jt/w/o IMPRESSION: Normal unenhanced MRI of the forefoot. Pending Final Proof Editing
== END | disposition home or self-care (01) ==
LOC: MRI 13:12
PROVIDERS: PCP Family Medicine; Referring Provider Podiatrist; Visit Provider Podiatrist
DX: M86.371 Chronic multifocal osteomyelitis, right ankle and foot (principal)
CPT/HCPCS: 73718

== ENCOUNTER → 2023-06-06 | Outpatient (CLI) | payer MEDICARE, BC, SELFPAY ==
[2023-06-06 15:38] LABS: Absolute Lymphocyte Count 3.29 X10^3/uL (0.83-4.51); Absolute Neutrophil Count 5.3 X10^3/uL (2.0-7.7); Basophil# 0.07 X10^3/uL; Basophil% 0.7 % (0-1); Eosinophil# 0.25 X10^3/uL; Eosinophils% 2.6 % (0-5); Hematocrit 35.5 % (37-47); Hemoglobin 11.1 g/dL (12.0-15.0); Lymphocyte # 3.29 X10^3/ul (0.83-4.51); Lymphocyte % 34.5 % (19-41); Mean Corp Hgb Conc 31.3 g/dL (32-36); Mean Corpuscular Hgb 27.1 pg (27.0-32.0); Mean Corpuscular Volume 86.8 fL (81-99); Mean Platelet Vol. 10.2 fl (6.2-12.0); Monocyte# 0.64 X10^3/uL; Monocyte% 6.7 % (0-10); NRBC Flagged by Analyzer 0 % (0-5); Neutrophil # 5.28 X10^3/uL (2.7-7.7); Neutrophil % 55.3 % (47-70); Platelet Count 355 K/mm3 (150-450); RBC Distribution Width CV 14.3 % (11.6-14.6); RBC Distribution Width SD 45.5 fl (35.1-43.9); Red Blood Count 4.09 M/mm3 (4.2-5.4); White Blood Count 9.6 K/mm3 (4.4-11.0)
[2023-06-06 15:44] LABS: ALB/GLOB Ratio 0.9 RATIO (0.9-2.4); AST(SGOT) 10 U/L (15-37); Alanine Aminotransfer ALT/SGPT 14 U/L (13-56); Albumin, Serum 3.5 g/dL (3.2-5.0); Alkaline Phosphatase 100 U/L (45-117); Anion Gap 3 (5-15); BUN 14 mg/dL (7-18); BUN/Creat Ratio 16.8 RATIO (10-20); Calcium,Total 9.4 mg/dL (8.5-10.1); Chloride 105 mmol/L (98-107); Creatinine, Serum 0.83 mg/dL (0.55-1.02); EST Glomerular Filtration Rate 75 mL/min (>60); Est Glom Filt Rate - Afr Amer 90 mL/min (>60); Glucose 86 mg/dL (74-106); Potassium 4.2 mmol/L (3.5-5.1); Protein, Total 7.5 g/dL (6.4-8.2); Sodium Level 139 mmol/L (136-145)
== END | disposition home or self-care (01) ==
LOC: MTLAB 13:20
PROVIDERS: PCP Family Medicine; Referring Provider Podiatrist; Visit Provider Podiatrist
DX: M86.371 Chronic multifocal osteomyelitis, right ankle and foot (principal)
CPT/HCPCS: 36415; 80053; 85025

== ENCOUNTER 2023-06-15 16:41 | Observation (INO) | payer MEDICARE, BC, SELFPAY ==
[2023-06-15] VITALS (8 sets, daily range): BP systolic 113–140; BP diastolic 64–90; PULSE 87–107; RESP 14–18; TEMP 36.5–37.1; O2SAT 96–100; BMI 35.6
--- NOTE | 2023-06-15 | BON_PTH ---
PATIENT: CHAPO PEREZ LOC: [facility] U#:[id number] AGE/SX: 57/F ROOM: [facility]323 RE06/15/[address]: Dr. Akin Underwood DPM : 1965 BED: 1 DIS: 06/16/2023 SPEC #: [id number] RECD: 06/15/23 16:24 STATUS: MARLA REJohan #: [id number] SILVER: 06/15/23 00:[address]: Akin Underwood DEPT: SURGICAL PATHOLOGY RECD BY: Osman Mccarthy ENTERED: 06/16/23 09:38 SP TYPE: Bone OTHR DR: MD Dr. Conor Alfonso Dr., DO Dr. Efewongbe Oleghe, MD Dr. Loren Kirchner, MD Dr. Nana Yaa Koram, MD Dr. Robert Leininger, MD Barbara Tickton, GROUND OPERATIONS CREW MEMBER-C Juvenal Turner, GROUND OPERATIONS CREW MEMBER-C Elmira Brownlee, GROUND OPERATIONS CREW MEMBER-C LEE ANN Lang PA Tissues: A - Bone of foot, NOS B - Bone of foot, NOS C - ULCER Procedures: Decalcification bone/plaque Surgery Specimen Level IV HEADER OPERATION: Amputation of right third toe with debridement and excision PRE-OP DIAGNOSIS: Left foot ulcer, right third toe osteomyelitis TISSUE SUBMITTED: A - Clearance fragment right third toe, B - Right third toe, C - Debrided wound left heel ulcer MICROSCOPIC DIAGNOSIS A. Clearance fragment of bone of right third toe, biopsy: Osseocartilaginous tissue. No evidence of osteomyelitis. B. Right third toe, amputation: Skin and soft tissue with acute and chronic inflammation. Bone with acute osteomyelitis. C. Tissue of left heel ulcer, biopsy: Ulceration with associated acute and chronic inflammation and granulation. AM:eladio 06/21/2023 MICROSCOPIC DESCRIPTION Slides are reviewed. GROSS DESCRIPTION A - Received in fixative is one container labeled with the patient's name and designated clearance fragment right third toe. The specimen consists of a piece of bone measuring 1.0 x 0.2 x 0.2 cm. The entire specimen is submitted in one cassette after decalcification. B - Received in fixative is one container labeled with the patient's name and designated right third toe. The specimen consists of a portion of toe measuring 3.0 x 2.0 x 2.0 cm. The tip of the toe shows thickened skin. The nail appears atrophic. Bee Worker sections are submitted in two cassettes as follows: 1 - skin with thickened area at the tip, 2 - bone after decalcification. C - Received in fixative is one container labeled with the patient's name and designated debrided bone left heel ulcer. The specimen consists of multiple pieces of skin measuring in aggregate 3.0 x 3.0 x 1.0 cm. Bee Worker sections are submitted in one cassette. / SJ:rg 06/16/2023 TC:2 CPT: 96177 x3, 73235 x2
[2023-06-15] MEDS: Lactated Ringers 1,000 ML 15 ML IV ×2 (12:32→22:01)
[2023-06-15] MEDS: Cefazolin 2 GM in 0.9% Normal Saline 100 ML IV (14:43)
[2023-06-15] MEDS: Bupivacaine Mpf 0.5% 30 ML VIAL (14:58)
--- NOTE | 2023-06-15 16:13 | OP.PCM_ITS ---
Report of Operation Date of Procedure: 06/15/23 Pre-Operative Diagnosis: Osteomyelitis right 3rd toe Chronic heel ulcer down to subcutaneous tissue left heel Post-Operative Diagnosis: Same Surgery/Procedure Performed:: Partial right 3rd toe amputation Debridement of left heel ulcer with closure Surgeon: Akin Underwood Type of Anesthesia: Local and MAC Estimated Blood Loss (mL): 5mL Description of Procedure: Indications: 57 year old female with history of chronic left heel ulceration, also developed right 3rd toe swelling and redness. Right 3rd toe MRI had findi ngs consistent with osteomyelitis distally. Left heel ulceration was healing with wound vac, but stalled out, biopsy with no malignancy or any other significant findings. Discussed options with patient and she elected to have right 3rd toe amputation as well as debridement of left heel ulceration with closure. This was discussed with her in detail, reviewed procedures as well as alternative options. Reviewed possible benefits vs risks, goals, expectations and estimated healing time. Consent forms were reviewed with her and she freely signed them. No guarantees were given nor implied. No warranties were given. Operative Procedure: She was brought back to the operating room and was placed on the operating room table in the supine position. She was secured to the operating room table with safety belt around her waist. Well padded pneumatic tourniquets were applied around bilateral ankles. 2g of IV Ancef was given pre operatively for antibiotic prophylaxis. A time out was performed and she was properly identified and surgical plan was confirmed. She received MAC anesthesia per the anesthesia team. After the overlying skin was cleansed with 70% Isopropyl alcohol a right 3rd toe nerve block was completed and also left heel nerve block was completed - a total of 10mL of 0.5% Bupivacaine plain was used. Bilateral feet were scrubbed, prepped, and draped in the usual aseptic fashion. Right 3rd toe amputation: Further attention was directed to the right 3rd toe - There was superficial abrasion to distal toe, there was also noted to be significant edema and erythema to the toe and appeared bulbous, picture was taken and placed in patients chart. The right ankle pneumatic tourniquet was inflated to 250mmHg after the foot was exsanguinated via elevation. An incision was made around the toe at midlevel using a 15 blade. This was made down to bone and in a way a dorsal and plantar flap was made. The toe was amputated at the proximal interphalangeal joint. The bone of the distal and middle phalanx was noted to be soft and nonviable consistent with infection. The amputated part of the toe was sent to pathology. The head of the proximal phalanx was resected using a bone cutting forceps and sent as a culture, and clearance fragment was obtained from the residual proximal phalanx and sent to microbiology and pathology - this bone was white, viable and appeared free of infection. The site was flushed out with copious amounts of normal saline solution. The remaining tissues appeared healthy and viable. The skin was reapproximated using 3-0 Prolene. The right ankle pneumatic tourniquet was deflated and there was immediate return of vascular flow to the foot and to all toes, CFT < 2 seconds, no evidence of ischemia. Total tourniquet time was 14 minutes. A dressing was applied which consisted of betadine soaked adaptic, 4x4 gauze, kerlix and trang dressing. Left heel debridement and closure: There was noted to be a chronic ulceration to the left plantar heel, there was nonviable tissue down to subcutaneous tissue, ulceration measured 1.5cm x 2.0cm and this is the area debrided. There was no evidence of infection, no swelling, no erythema, no maloder, no fluctuance, no visible abscess, no purulence. The left ankle pneumatic tourniquet was inflated to 250mmHg after the foot was exsanguinated via elevation. The ulceration was debrided using a 15 blade removing all nonviable tissue, this was done in excisional fashion and was debrided down to fascia layer. This was debrided down to healthy viable base and margins. The debrided tissue was sent to pathology. The site was flushed with copious amounts of normal saline solution. Due to the size of the ulceration a primary closure was not possible, so a full thickness with viable underlying subcutaneous tissue skin flap from the medial heel was prepped and rotated to cover the ulcer site. The blood supply to the flap was preserved. The flap was sutured to the skin edges of the debrided ulcer site using 3-0 prolene, and the harvest site was reapproximated in primary fashion using 3-0 prolene. The right ankle pneumatic tourniquet was deflated and there was immediate return of vascular flow to the foot and to all toes, CFT < 2 seconds, no evidence of ischemia. Total tourniquet time was 29 minutes. The flap was viable, CFT < 3 seconds. A dressing was applied which consisted of adaptic, 4x4 gauze, kerlix and trang dressing. She tolerated the procedure well with no complications. She was transported from the operating room to the recovery room with vital signs stable and in good condition. Post op orders were placed and she will be followed as inpatient. Grafts/Implants Used: None Complications None
--- NOTE | 2023-06-15 16:45 | RAD_ITS ---
STUDY: X-RAY - LEFT FOOT CLINICAL: Female, 57 years old. post op TECHNIQUE: 3 view(s) of the foot. COMPARISON: 03/30/2023, 03/31/2023. FINDINGS: Since prior exam, mild osteolysis suggested of the head of the fifth metatarsal not definitely present previously. Findings could represent osteomyelitis. Marked soft tissue swelling of the heel pad although improved appearance of previously seen skin wound. No other findings or changes. RAD/Foot min 3 Views IMPRESSION: Possible osteomyelitis of the head of the fifth metatarsal. Marked soft tissue swelling of the heel pad. Electronically Signed: Farooq Mccabe MD at 17:04 EDT ,
--- NOTE | 2023-06-15 16:45 | RAD_ITS ---
INDICATION: POST OP EXAMINATION/TECHNIQUE: X-RAY - RIGHT XR Foot Min 3 Views 3 VIEWS COMPARISON: 10/24/2022 FINDINGS: SOFT TISSUES: No soft tissue swelling or gas. No radiopaque foreign body. BONES/JOINTS: Interval resection of the third digit at the distal proximal phalanx. Stable surgical changes of the distal first metatarsal. Lateral subluxation at the second MTP joint. No sclerotic or destructive changes observed. RAD/Foot min 3 Views IMPRESSION: Status post resection of the third digit at the proximal phalanx. Electronically Signed: Adiel Reese MD at 0:24 EDT ,
[2023-06-15 17:06] LABS: Absolute Neutrophil Count 6.4 X10^3/uL (2.0-7.7); Basophil# 0.04 X10^3/uL; Basophil% 0.5 % (0-1); Eosinophil# 0.14 X10^3/uL; Eosinophils% 1.7 % (0-5); Hematocrit 35.6 % (37-47); Mean Corp Hgb Conc 30.9 g/dL (32-36); Mean Corpuscular Volume 87.5 fL (81-99); Mean Platelet Vol. 8.9 fl (6.2-12.0); Monocyte# 0.18 X10^3/uL; Monocyte% 2.2 % (0-10); NRBC Flagged by Analyzer 0 % (0-5); Neutrophil # 6.42 X10^3/uL (2.7-7.7); Neutrophil % 77.1 % (47-70); Platelet Count 292 K/mm3 (150-450); RBC Distribution Width SD 44.3 fl (35.1-43.9); Red Blood Count 4.07 M/mm3 (4.2-5.4); White Blood Count 8.3 K/mm3 (4.4-11.0)
--- NOTE | 2023-06-15 17:06 | PCM.PROGNOTE ---
Subjective Subjective Patient is a 57 y/o female with a PMH as outlined who was admitted to the service of podiatry for right 3rd toe osteomyelitis. She had an ulcer on the right foot which had been worsening. Imaging done showed evidence of osteomyelitis. She had partial right third toe amputation with debridement of the left heel ulcer down to the subcutaneous tissue with closure on 06/15/2023. Hospitalist service was consulted for medical management. Today is POD 0. Patient seen after surgery. Pain was well controlled. She had no active complaints. Review of systems was otherwise negative. Vitals were blood pressure of 136/90, pulse rate of 102, respiratory rate of 16 and oxygen saturation of 98% on room air. CBC showed WBC of 8.2 with hemoglobin of 11 and platelets of 292. Hospitalist service was consulted for medical management. Objective Data Objective Data Vital Signs: Vital Signs Temp Pulse Resp BP Pulse Ox O2 Del Method O2 Flow Rate 98.6 F 102 H 16 136/90 H 98 Room Air 3 06/15/23 16:15 06/15/23 16:45 06/15/23 16:45 06/15/23 16:45 06/15/23 16:45 06/15/23 16:45 06/15/23 16:30 Oxygen Flow Rate (L/min) 3 Oxygen Delivery Method Room Air Weight: 234 lb Body Mass Index (BMI) 35.6 Intake & Output: Intake and Output for Last 24 Hours 06/13/23 06/14/23 06/15/23 23:59 23:59 23:59 Intake Total 110 / 110 Balance 110 / 110 Lab / Micro Data 06/15/23 16:59 Radiography Diagnostic Testing: Radiology Impression Foot X-Ray 06/15/23 16:45 IMPRESSION: Possible osteomyelitis of the head of the fifth metatarsal. Marked soft tissue swelling of the heel pad. Electronically Signed: Farooq Mccbae MD at 17:04 EDT , Physical Exam Const alert, oriented x3 and no apparent distress General Appearance: cooperative and well developed HEENT normocephalic, head/scalp atraumatic, moist oral mucous membranes and oropharynx normal Eyes PERRL and EOMs intact bilaterally Neck no lymphadenopathy, supple and no JVD Lymph Lymphatic: no lymphadenopathy noted and no lymphedema noted Resp normal respiratory effort, normal air movement and clear to auscultation bilaterally Cardio regular rate, regular rhythm, S1 normal heart sound, S2 normal heart sound and no murmurs GI normal to inspection, nondistended, normoactive bowel sounds, soft to palpation, non-tender and non-distended Extremity Extremity Narrative: right foot wrapped in bandage Skin Skin Narrative: as under extremity Neuro CN's II-XII intact bilaterally, no focal motor deficits and no sensory deficits noted Motor Exam: strength 5/5 throughout and general weakness Psych thought process normal, cooperative and affect normal Appearance: appropriate Assessment & Plan Assessment/Plan (1) Osteomyelitis of toe of left foot: PLAN: Plan #Osteomyelitis of right 3rd toe S/p partial amputation of the right third toe. She also had debridement of the left chronic heel ulcer Management as per podiatry #History of SLE with peripheral neuropathy: on Hydroxychloroquine and prednisone Patient states she does not think that her SLE is well controlled as she feels like she is always having a mental fog. She does not have any physical complaints such as rash or any renal, cardiac or dermatologic sequelae from the SLE. She states that her daughter has found another manager financial services in [place] and she is going to follow-up with the manager financial services for a second opinion also on gabapentin stable #Anxiety and depression: On Cymbalta. Requests for PO ativan 1mg q6hr prn for anxiety. #DVT prophylaxis: As per primary team Charges/Coding Visit Charges Inpatient E&M: 34917 Subs Hosp L2
[2023-06-15] MEDS: Vancomycin HCl 2,000 MG in 0.9% Normal Saline (500mL Bag) 500 ML 250 MG IV (18:24)
[2023-06-15 20:45] LABS: Creatinine, Serum 0.96 mg/dL (0.55-1.02); EST Glomerular Filtration Rate 64 mL/min (>60); Est Glom Filt Rate - Afr Amer 77 mL/min (>60); Estimated Creatinine Clearance 65.22 ml/min
--- NOTE | 2023-06-15 20:51 | PCM.RX.CS ---
Consult Antibiotic Management Pharmacy has been consulted to manage selected antiobiotic: Vancomycin Type of Intervention Type of Consult: New start Suspected Infection Suspected Infection: Osteomyelitis Prior Doses of Antibiotics Prior Doses of Antibiotics Received/Current Regimen: Vancomycin 2000 mg IV x 1 given 06/15/23 @ 1824 Labs Labs: Creatinine 0.96 mg/dL (0.55-1.02) 06/15/23 20:15 Est GFR (MDRD) Af Amer 77 mL/min (>60) 06/15/23 20:15 Est GFR (MDRD) Non-Af 64 mL/min (>60) 06/15/23 20:15 Dosing Weight Weight used for dosin kg Estimated Creatinine Clearance Estimated Creatinine Clearance: ~65 Goal Trough Goal Trough: 15-20 mcg/mL Pharmacy Plan for Drug Dosing Pharmacy Plan for Drug Dosing: Vancomycin 2000 mg IV loading dose x 1 followed by 1250 mg Q12H based on weight and Scr, trough prior to 4th dose. Pharmacy Service will continue to monitor and adjust dosing as required. Follow-Up Labs Follow-Up Labs: Trough: Vancomycin Date/Time Labs Ordered Labs to be done on [date and time ordered]: 06/15/23 @ 0528
[2023-06-15] MEDS: cycloBENZAPRine HCl 10 MG Tablet PO (21:51)
[2023-06-15] MEDS: Zolpidem Tartrate 5 MG Tablet 10 MG PO (21:51)
[2023-06-15] MEDS: DULoxetine Hcl 60 MG Capsule PO (21:51)
[2023-06-15] MEDS: Gabapentin 300 MG Capsule PO (21:51)
[2023-06-15] MEDS: Hydroxychloroquine 200 MG Tablet PO (21:52)
[2023-06-16 01:48] VITALS: BP 105/64; PULSE 95; RESP 16; TEMP 36.6; O2SAT 94
[2023-06-16] MEDS: cycloBENZAPRine HCl 10 MG Tablet PO ×2 (05:17→14:43)
[2023-06-16] MEDS: Vancomycin HCl 1,250 MG in 0.9% Normal Saline (250mL Bag) 250 ML 167 MG IV (05:17)
[2023-06-16 05:19] VITALS: BP 105/57; PULSE 86; RESP 16; TEMP 36.8; O2SAT 97
[2023-06-16 06:58] LABS: ALB/GLOB Ratio 0.7 RATIO (0.9-2.4); AST(SGOT) 9 U/L (15-37); Alanine Aminotransfer ALT/SGPT 16 U/L (13-56); Alkaline Phosphatase 102 U/L (45-117); Anion Gap 4 (5-15); BUN 10 mg/dL (7-18); BUN/Creat Ratio 11.9 RATIO (10-20); Calcium,Total 8.9 mg/dL (8.5-10.1); Chloride 106 mmol/L (98-107); Creatinine, Serum 0.84 mg/dL (0.55-1.02); EST Glomerular Filtration Rate 74 mL/min (>60); Est Glom Filt Rate - Afr Amer 90 mL/min (>60); Estimated Creatinine Clearance 74.54 ml/min; Globulin 4.2 g/dL (2.2-4.2); Glucose 149 mg/dL (74-106); Potassium 4.2 mmol/L (3.5-5.1); Protein, Total 7.2 g/dL (6.4-8.2); Sodium Level 137 mmol/L (136-145)
--- NOTE | 2023-06-16 07:44 | PN_ITS ---
Subjective Subjective Patient was seen this morning for follow up on right and left foot. She is sitting up in bed doing well, no complaints. No f/c/n/v. Objective Data Objective Data Vital Signs: Vital Signs Temp Pulse Resp BP Pulse Ox O2 Del Method O2 Flow Rate 98.2 F 86 16 105/57 L 97 Room Air 3 06/16/23 05:19 06/16/23 05:19 06/16/23 05:19 06/16/23 05:19 06/16/23 05:19 06/16/23 05:19 06/15/23 16:30 Oxygen Flow Rate (L/min) 3 Oxygen Delivery Method Room Air Weight: 106.14 kg Body Mass Index (BMI) 35.6 Intake & Output: Intake and Output for Last 24 Hours 06/14/23 06/15/23 06/16/23 23:59 23:59 23:59 Intake Total 792.25 / 792.25 1175 / 1175 Output Total 1200 / 1200 Balance 792.25 / 792.25 -25 / -25 Lab / Micro Data 06/15/23 16:59 06/16/23 06:11 Labs: Laboratory Results - last 24 hr 06/15/23 16:59: WBC 8.3, RBC 4.07 L, Hgb 11.0 L, Hct 35.6 L, MCV 87.5, MCH 27.0, MCHC 30.9 L, RDW Std Deviation 44.3 H, RDW Coeff of Jennifer 14.0, Plt Count 292, MPV 8.9, Immature Gran % (Auto) 0.500, Neut % (Auto) 77.1 H, Lymph % (Auto) 18.0 L, Hockley % (Auto) 2.2, Eos % (Auto) 1.7, Baso % (Auto) 0.5, Absolute Neuts (auto) 6.4, Absolute Lymphs (auto) 1.50, Nucleated RBC % 0 06/15/23 20:15: Creatinine 0.96, Estim Creat Clear Calc 65.22, Est GFR (MDRD) Af Amer 77, Est GFR (MDRD) Non-Af 64 06/16/23 06:11: Sodium 137, Potassium 4.2, Chloride 106, Carbon Dioxide 27.0, Anion Gap 4 L, BUN 10, Creatinine 0.84, Estim Creat Clear Calc 74.54, Est GFR (MDRD) Af Amer 90, Est GFR (MDRD) Non-Af 74, BUN/Creatinine Ratio 11.9, Glucose 149 H, Calcium 8.9, Total Bilirubin 0.20, AST 9 L, ALT 16, Alkaline Phosphatase 102, Total Protein 7.2, Albumin 3.0 L, Globulin 4.2, Albumin/Globulin Ratio 0.7 L Radiography Diagnostic Testing: Radiology Impression Foot X-Ray 06/15/23 16:45 IMPRESSION: Possible osteomyelitis of the head of the fifth metatarsal. Marked soft tissue swelling of the heel pad. Electronically Signed: Farooq Mccabe MD at 17:04 EDT , Foot X-Ray 06/15/23 16:45 IMPRESSION: Status post resection of the third digit at the proximal phalanx. Electronically Signed: Adiel Reese MD at 0:24 EDT , Physical Exam Narrative s/p right 3rd toe partial amputation, sutures intact, no dehiscence, no drainage, no maloder, no necrosis, no fluctuance, no crepitus, no visible abscess - tissues are healthy and viable, there is some edema and erythemal locally c/w normal post op course, no evidence of ischemia and no pain to the right foot. Left heel s/p debridement of ulceration and closure, skin flap viable and has good CFT, normal temperature, no erythema, no drainage, no necrosis, no fluctuance, no crepitus, no visible abscess, no evidence of ischemia, sutures are intact and site is doing well. Const alert, oriented x3 and no apparent distress Assessment & Plan Assessment/Plan (1) Chronic ulcer of left heel with fat layer exposed: (2) Osteomyelitis of foot, right, acute: (3) Other hereditary and idiopathic neuropathies: PLAN: Plan Evaluation performed. Surgical sites right 3rd toe amp site and left heel site doing well, no evidence of complication. Vancomycin has been started, ID service has been consulted. Cultures right 3rd toe have been obtained and are pending. Wound care left heel: Xeroform, gauze, kerlix and trang dressing Wound care right 3rd toe amp site: betadine, gauze, kerlix and trang dressing Recommend dressings be changed every 2-3 days. Weightbearing - no weightbearing left foot. Ok for weightearing right foot for short distances. Hospital medicine consulted for Lupus and other medical problems - appreciate assistance. Ok for home discharge once home antibiotics are determined. Also patient will need home health care for dressing changes 2-3 times a week.
--- NOTE | 2023-06-16 08:13 | WOUNDNOTE ---
wound photo: left heel
--- NOTE | 2023-06-16 08:14 | WOUNDNOTE ---
wound photo: right 3rd toe
[2023-06-16] MEDS: DULoxetine Hcl 60 MG Capsule PO (09:50)
[2023-06-16] MEDS: Gabapentin 300 MG Capsule PO (09:50)
[2023-06-16] MEDS: Hydroxychloroquine 200 MG Tablet PO (09:50)
[2023-06-16 10:24] VITALS: BP 103/64; PULSE 94; RESP 16; TEMP 36.8; O2SAT 100
--- NOTE | 2023-06-16 11:44 | PN_ITS ---
Subjective Subjective Patient seen and examined. She had no complaints and felt well. Review of systems was otherwise negative. Pain was well controlled. Objective Data Objective Data Vital Signs: Vital Signs Temp Pulse Resp BP Pulse Ox O2 Del Method O2 Flow Rate 98.3 F 94 16 103/64 100 Room Air 3 06/16/23 10:24 06/16/23 10:24 06/16/23 10:24 06/16/23 10:06/16/23 10:06/16/23 10:06/15/23 16:30 Oxygen Flow Rate (L/min) 3 Oxygen Delivery Method Room Air Weight: 233 lb 15.978 oz Body Mass Index (BMI) 35.6 Intake & Output: Intake and Output for Last 24 Hours 06/14/23 06/15/23 06/16/23 23:59 23:59 23:59 Intake Total 792.25 / 792.25 1175 / 1175 Output Total 1200 / 1200 Balance 792.25 / 792.25 -25 / -25 Lab / Micro Data 06/15/23 16:59 06/16/23 06:11 Labs: Laboratory Results - last 24 hr 06/15/23 16:59: WBC 8.3, RBC 4.07 L, Hgb 11.0 L, Hct 35.6 L, MCV 87.5, MCH 27.0, MCHC 30.9 L, RDW Std Deviation 44.3 H, RDW Coeff of Jennifer 14.0, Plt Count 292, MPV 8.9, Immature Gran % (Auto) 0.500, Neut % (Auto) 77.1 H, Lymph % (Auto) 18.0 L, [place] % (Auto) 2.2, Eos % (Auto) 1.7, Baso % (Auto) 0.5, Absolute Neuts (auto) 6.4, Absolute Lymphs (auto) 1.50, Nucleated RBC % 0 06/15/23 20:15: Creatinine 0.96, Estim Creat Clear Calc 65.22, Est GFR (MDRD) Af Amer 77, Est GFR (MDRD) Non-Af 64 06/16/23 06:11: Sodium 137, Potassium 4.2, Chloride 106, Carbon Dioxide 27.0, Anion Gap 4 L, BUN 10, Creatinine 0.84, Estim Creat Clear Calc 74.54, Est GFR (MDRD) Af Amer 90, Est GFR (MDRD) Non-Af 74, BUN/Creatinine Ratio 11.9, Glucose 149 H, Calcium 8.9, Total Bilirubin 0.20, AST 9 L, ALT 16, Alkaline Phosphatase 102, Total Protein 7.2, Albumin 3.0 L, Globulin 4.2, Albumin/Globulin Ratio 0.7 L Radiography Diagnostic Testing: Radiology Impression Foot X-Ray 06/15/23 16:45 IMPRESSION: Possible osteomyelitis of the head of the fifth metatarsal. Marked soft tissue swelling of the heel pad. Electronically Signed: Farooq Mccabe MD at 17:04 EDT , Foot X-Ray 06/15/23 16:45 IMPRESSION: Status post resection of the third digit at the proximal phalanx. Electronically Signed: Adiel Reese MD at 0:24 EDT , Physical Exam Const alert, oriented x3 and no apparent distress General Appearance: cooperative and well developed HEENT normocephalic, head/scalp atraumatic, moist oral mucous membranes and oropharynx normal Eyes PERRL and EOMs intact bilaterally Neck no lymphadenopathy, supple and no JVD Lymph Lymphatic: no lymphadenopathy noted and no lymphedema noted Resp normal respiratory effort, normal air movement and clear to auscultation bilaterally Cardio regular rate, regular rhythm, S1 normal heart sound, S2 normal heart sound and no murmurs GI normal to inspection, nondistended, normoactive bowel sounds, soft to palpation, non-tender and non-distended Extremity Extremity Narrative: right foot wrapped in bandage Skin Skin Narrative: as under extremity Neuro CN's II-XII intact bilaterally, no focal motor deficits and no sensory deficits noted Motor Exam: strength 5/5 throughout and general weakness Psych thought process normal, cooperative and affect normal Appearance: appropriate Assessment & Plan Assessment/Plan (1) Osteomyelitis of toe of left foot: PLAN: Plan #Osteomyelitis of right 3rd toe * S/p partial amputation of the right third toe. She also had debridement of the left chronic heel ulcer * Management as per podiatry * today is POD 1 * #History of SLE with peripheral neuropathy: * on Hydroxychloroquine and prednisone * Patient states she does not think that her SLE is well controlled. She does not have any physical complaints such as rash or any renal, cardiac or dermatologic sequelae from the SLE. She states that her daughter has found another aeronautical design engineer in [place] and she is going to follow-up with the aeronautical design engineer for a second opinion * also on gabapentin * stable * #Anxiety and depression: On Cymbalta. On PO ativan 1mg q6hr prn for anxiety. #DVT prophylaxis: As per primary team Charges/Coding Visit Charges Inpatient E&M: 26870 Subs Hosp L2
--- NOTE | 2023-06-16 13:11 | CON.PCM.ID_ITS ---
Assessment & Plan Assessment/Plan (1) Toe osteomyelitis, right: PLAN: Taken to OR 06/15/[address] Underwood for partial 5 3rd toe amp. L toe cx 03/2023 with GAS, MRSA, anaerobes. On vanc. Feeling well. Ok for home with one week po doxy 100mg bid and keflex 500mg tid. Clearance cx gram stain neg so far. Will follow as needed, thank you HPI Consult Data Date of Consult: 06/16/23 HPI Narrative Reason for Consultation: osteo HPI Narrative: CHAPO PEREZ, is a 57 F who presented with several months R toe swelling, pain, ulceration. No fever or chills. Had been on doxy as outpt. No n/v/d. Taken to OR 06/15/[address] Underwood for partial 5 3rd toe amp. Feeling ok this AM, pain controlled. Full ROS performed and neg except as noted above. [facility] Medical History Ambulates with cane Amputation of toe of left foot Arthritis Connective tissue disease CPAP (continuous positive airway pressure) dependence Fibromyalgia Heartburn History of IBS Lupus Non-smoker Sjogren syndrome with dental involvement Sjogren syndrome with keratoconjunctivitis Sjogren syndrome with peripheral nervous system involvement Walker as ambulation aid Wears contact lenses Wears glasses Home Medications cyclobenzaprine 10 mg tablet 10 mg PO TID 04/15/20 [History Last Taken Unknown] duloxetine 60 mg capsule,delayed release 60 mg PO BID 04/15/20 [History Last Taken Unknown] estradiol 1 mg tablet 1 mg PO DAILY 04/15/20 [History Last Taken Unknown] gabapentin 300 mg capsule 300 mg PO BID 04/15/20 [History Last Taken Unknown] hydroxychloroquine 200 mg tablet 200 mg PO BID 04/15/20 [History Last Taken Unknown] lorazepam 1 mg tablet 1 mg PO PRN PRN Anxiety 04/15/20 [History Last Taken 06/15/23] zolpidem 10 mg tablet 10 mg PO PCHS 04/15/20 [History Last Taken Unknown] doxycycline hyclate 100 mg capsule 100 mg PO DAILY 06/08/23 [History Last Taken Unknown] Allergy/AdvReac Type Severity Reaction Status Date / Time Gadolinium-MRI Contrast Allergy Intermediate Hives Verified 06/08/23 09:15 Medium [CONTRAST] Iodinated Contrast Media [CT] Allergy Rash Verified 06/08/23 09:15 morphine Allergy Hives Verified 06/08/23 09:15 sertraline [From Zoloft] Allergy Swelling Verified 06/08/23 09:15 Family History (Updated 03/31/23 @ 15:[address] Chace Carrero MD) Father Pseudocholinesterase deficiency Surgical History History of hysterectomy Hx of Achilles tendon repair Hx of cholecystectomy Social History Smoking Status: Never smoker Physical Exam Const alert, oriented x3 and no apparent distress General Appearance: cooperative HEENT normocephalic and head/scalp atraumatic Eyes PERRL and EOMs intact bilaterally Neck supple and No nodes Resp normal air movement and clear to auscultation bilaterally Cardio regular rate and regular rhythm GI soft to palpation, non-tender and non-distended Extremity General Extremity: Negative for edema Skin Skin Narrative: feet wrapped Neuro CN's II-XII intact bilaterally Lab / Micro Data Attestation: I reviewed the patient's lab results. 06/15/23 16:59 06/16/23 06:11 Labs: Laboratory Results - last 24 hr 06/15/23 16:59: WBC 8.3, RBC 4.07 L, Hgb 11.0 L, Hct 35.6 L, MCV 87.5, MCH 27.0, MCHC 30.9 L, RDW Std Deviation 44.3 H, RDW Coeff of Jennifer 14.0, Plt Count 292, MPV 8.9, Immature Gran % (Auto) 0.500, Neut % (Auto) 77.1 H, Lymph % (Auto) 18.0 L, Mcleod % (Auto) 2.2, Eos % (Auto) 1.7, Baso % (Auto) 0.5, Absolute Neuts (auto) 6.4, Absolute Lymphs (auto) 1.50, Nucleated RBC % 0 06/15/23 20:15: Creatinine 0.96, Estim Creat Clear Calc 65.22, Est GFR (MDRD) Af Amer 77, Est GFR (MDRD) Non-Af 64 06/16/23 06:11: Sodium 137, Potassium 4.2, Chloride 106, Carbon Dioxide 27.0, Anion Gap 4 L, BUN 10, Creatinine 0.84, Estim Creat Clear Calc 74.54, Est GFR (MDRD) Af Amer 90, Est GFR (MDRD) Non-Af 74, BUN/Creatinine Ratio 11.9, Glucose 149 H, Calcium 8.9, Total Bilirubin 0.20, AST 9 L, ALT 16, Alkaline Phosphatase 102, Total Protein 7.2, Albumin 3.0 L, Globulin 4.2, Albumin/Globulin Ratio 0.7 L Micro: Microbiology 06/15/23 16:27 Bone - 3rd Toe Wound Culture - Preliminary No growth-Final to follow 06/15/23 16:27 Tissue - 3rd Toe Wound Culture - Preliminary No growth-Final to follow Radiology Impression Foot X-Ray 06/15/23 16:45 IMPRESSION: Possible osteomyelitis of the head of the fifth metatarsal. Marked soft tissue swelling of the heel pad. Electronically Signed: Farooq Mccabe MD at 17:04 EDT , Foot X-Ray 06/15/23 16:45 IMPRESSION: Status post resection of the third digit at the proximal phalanx. Electronically Signed: Adiel Reese MD at 0:24 EDT ,
--- NOTE | 2023-06-16 13:40 | CASEMGMT ---
RN CM into pt room, pt present. Pt states she would like to return home with [facility] SN. Noted in dc instructions wound care orders and preferred freqency for nurse visits, pt is aware. [facility] orders pt supplies for her. Supplies in room to go home with. Pt has all DME at home necessary. Pt expressed concern of having home health and having to be homebound, that it is effecting her mental health. Discussed with pt that she can go to hair appts, druze, medical appts and be out infrequently if it is difficult and taxing to leave the home and she needs assist of a device/or another person. Pt states she just wants to get in the car and wait in the car when her goes somewhere every now and then. Discussed with pt this is allowed and not violating the homebound requirements. Discussed this information with clinical manger and pt medical case worker. Pt denies any further needs.
[2023-06-16 15:24] VITALS: BP 112/68; PULSE 85; RESP 16; TEMP 37; O2SAT 100
== END 2023-06-16 16:29 | disposition home or self-care (01) ==
LOC: SDC 17:16 → MS3 17:16
PROVIDERS: Admitting Provider Podiatrist; PCP Nurse Practitioner Family; Referring Provider Podiatrist; Visit Provider Podiatrist
PROC: (CPT 28825; principal; 2023-06-15 13:15)
DX: M86.171 Other acute osteomyelitis, right ankle and foot (principal); L97.422 Non-pressure chronic ulcer of left heel and midfoot with fat layer exposed; M32.9 Systemic lupus erythematosus, unspecified; G60.9 Hereditary and idiopathic neuropathy, unspecified; M79.7 Fibromyalgia; F41.9 Anxiety disorder, unspecified; F32.A Depression, unspecified; Z79.899 Other long term (current) drug therapy
CPT/HCPCS: 28825; 01480; 11042; 36415; 73630; 80053; 82565; 85025; 87015; 87070; 87075; 87102; 87116; 87176; 87205; 87206; 88304; 88305; 88311; 96365; 96366; 97802; 99221; J7040; J7050; J7120; G0378; J2405

== ENCOUNTER → 2023-08-15 | Outpatient (CLI) | payer MEDICARE, BC, SELFPAY | END | disposition home or self-care (01) | PROVIDERS: PCP Nurse Practitioner Family; Visit Provider Podiatrist Foot & Ankle Surgery | DX: M86.672 Other chronic osteomyelitis, left ankle and foot (principal); L97.523 Non-pressure chronic ulcer of other part of left foot with necrosis of muscle | CPT/HCPCS: 87070; 87075; 87077; 87186; 87205 ==

== ENCOUNTER → 2023-08-17 | Outpatient (CLI) | payer MEDICARE, BC, SELFPAY ==
[2023-08-17 12:07] LABS: Erythrocyte Sedimentation Rate 11 mm/hr (0-30)
[2023-08-17 12:11] LABS: Absolute Lymphocyte Count 2.01 X10^3/uL (0.83-4.51); Absolute Neutrophil Count 3.9 X10^3/uL (2.0-7.7); Basophil# 0.04 X10^3/uL; Basophil% 0.6 % (0-1); Eosinophil# 0.17 X10^3/uL; Eosinophils% 2.6 % (0-5); Hematocrit 37.6 % (37-47); Hemoglobin 11.5 g/dL (12.0-15.0); Lymphocyte # 2.01 X10^3/ul (0.83-4.51); Mean Corp Hgb Conc 30.6 g/dL (32-36); Mean Corpuscular Hgb 26.8 pg (27.0-32.0); Mean Corpuscular Volume 87.6 fL (81-99); Monocyte# 0.37 X10^3/uL; Monocyte% 5.7 % (0-10); NRBC Flagged by Analyzer 0 % (0-5); Neutrophil # 3.87 X10^3/uL (2.7-7.7); Neutrophil % 59.8 % (47-70); Platelet Count 329 K/mm3 (150-450); RBC Distribution Width CV 13.3 % (11.6-14.6); RBC Distribution Width SD 42.7 fl (35.1-43.9); Red Blood Count 4.29 M/mm3 (4.2-5.4); White Blood Count 6.5 K/mm3 (4.4-11.0)
[2023-08-17 12:25] LABS: Anion Gap 4 (5-15); BUN 12 mg/dL (7-18); BUN/Creat Ratio 14.4 RATIO (10-20); Calcium,Total 9.1 mg/dL (8.5-10.1); Chloride 104 mmol/L (98-107); Creatinine, Serum 0.84 mg/dL (0.55-1.02); EST Glomerular Filtration Rate 74 mL/min (>60); Est Glom Filt Rate - Afr Amer 90 mL/min (>60); Glucose 89 mg/dL (74-106); Potassium 3.8 mmol/L (3.5-5.1); Sodium Level 138 mmol/L (136-145)
== END | disposition home or self-care (01) ==
LOC: MTLAB 09:38
PROVIDERS: PCP Nurse Practitioner Family; Visit Provider Podiatrist Foot & Ankle Surgery
DX: M86.9 Osteomyelitis, unspecified (principal); L97.529 Non-pressure chronic ulcer of other part of left foot with unspecified severity
CPT/HCPCS: 36415; 80048; 85025; 85652; 86140

== ENCOUNTER → 2023-09-06 | Outpatient (CLI) | payer MEDICARE, BC, SELFPAY | END | disposition home or self-care (01) | PROVIDERS: PCP Nurse Practitioner Family; Visit Provider Podiatrist | DX: L97.522 Non-pressure chronic ulcer of other part of left foot with fat layer exposed (principal) | CPT/HCPCS: 87070; 87075; 87077; 87186; 87205 ==

== ENCOUNTER → 2023-10-23 | Outpatient (CLI) | payer MEDICARE, BC, SELFPAY ==
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
--- NOTE | 2023-10-23 08:00 | MRI_ITS ---
STUDY: MRI LEFT ANKLE WITHOUT CONTRAST REASON FOR EXAM: Female, 58 years old. Osteomyelitis, left calcaneus. TECHNIQUE: Standardized fat and water weighted pulse sequences were obtained in all 3 orthogonal planes. COMPARISON: Left foot radiographs dated 06/15/2023. FINDINGS: There is a heel skin ulcer with adjacent cellulitis. There is no discrete fluid collection or drainable abscess. There is no evidence of osteomyelitis. There is tendinosis and mild tenosynovitis of the posterior tibialis tendon. Normal flexor digitorum longus tendon. Normal flexor hallucis longus tendon. Normal peroneus longus and brevis tendons. Normal tibialis anterior tendon. Normal extensor hallucis longus tendon. Normal extensor digitorum longus tendons. There are postoperative changes related to prior Achilles tendon repair surgery, with multiple anchors in the posterior calcaneal tuberosity and thickening / tendinosis of the Achilles tendon. There is no Achilles tendon rupture. Normal plantar fascia. There is a plantar calcaneal spur. There is edema in the intrinsic muscles of the foot. Normal distal tibiofibular syndesmotic ligamentous complex. Normal lateral ligamentous complex. Normal subtalar ligaments and sinus tarsi. Normal deltoid ligamentous complex. Normal plantar calcaneonavicular (spring) ligament. Normal tibiotalar articulation. Normal talar dome. Normal subtalar articulations. Normal talonavicular articulation. Normal calcaneocuboid articulation. There is mild marrow stress edema in the anterior-superior calcaneal process (sagittal STIR series 6 image 16). Normal navicular-cuneiform articulations. MRI/Lower Ext Joint Only (Routine) IMPRESSION: Heel skin ulcer with adjacent cellulitis. No discrete fluid collection, drainable abscess, or evidence of osteomyelitis. Postoperative Achilles thickening/tendinosis, related to prior Achilles tendon repair surgery. No Achilles tendon rupture. Plantar calcaneal spur. Mild marrow stress edema in the anterior-superior calcaneal process. Electronically Signed: Zeus Guerrero MD at 11:42 EST ,
--- NOTE | 2023-10-23 08:30 | MRI_ITS ---
STUDY: MRI LEFT FOOT WITHOUT CONTRAST REASON FOR EXAM: Female, 58 years old. Attention fourth toe. Evaluate for osteomyelitis. TECHNIQUE: Standardized fat and water weighted pulse sequences were obtained in all 3 orthogonal planes. COMPARISON: Left foot radiographs dated 06/15/2023. FINDINGS: There is a heel ulcer with surrounding cellulitis. There is no discrete fluid collection or drainable abscess. There is amputation of the fifth digit at the level of the fifth MTP joint. There is soft tissue pressure edema located plantar to the fifth metatarsal head (axial STIR series 10 images 17-21). There is intermediate T1 and high STIR marrow signal in the plantar aspect of the fifth metatarsal head (sagittal T1/STIR series 6 and 9, image 27), which could be related to marrow stress edema versus developing early osteomyelitis. Normal bone marrow of the remainder of the metatarsals, phalanges and visualized distal tarsal, without fracture, periostitis, erosions or reactive bone edema. Normal sesamoids without sesamoiditis, fracture or avascular necrosis. Normal joint spaces, without effusions. Normal visualized Chopart and Lisfranc joints and normal Lisfranc ligament. Normal intermetatarsal spaces without intermetatarsal (Hale) neuroma or bursitis. There is mild posterior tibialis tenosynovitis. Normal visualized distal anterior tibialis tendon. Normal visualized distal peroneus longus and brevis tendons. Normal visualized extensor digitorum longus, extensor hallucis longus, flexor digitorum brevis and flexor hallucis longus tendons. Normal visualized plantar fascia without fasciitis, fibromatosis or tear. There is atrophy and fatty infiltration of the intrinsic muscles of the foot. MRI/Lower Ext/No Jt/w/o IMPRESSION: Amputation of the fifth digit at the level of the fifth MTP joint. Soft tissue pressure edema located plantar to the fifth metatarsal head. Intermediate T1 and high STIR marrow signal in the plantar aspect of the fifth metatarsal head, which could be related to marrow stress edema versus developing early osteomyelitis. Mild posterior tibialis tenosynovitis. Atrophy and fatty infiltration of the intrinsic muscles of the foot. Electronically Signed: Zeus Guerrero MD at 12:19 EST ,
== END | disposition home or self-care (01) ==
LOC: MRI 07:37
PROVIDERS: PCP Nurse Practitioner Family; Referring Provider Podiatrist; Visit Provider Podiatrist
DX: L97.522 Non-pressure chronic ulcer of other part of left foot with fat layer exposed (principal); M86.372 Chronic multifocal osteomyelitis, left ankle and foot; M20.42 Other hammer toe(s) (acquired), left foot
CPT/HCPCS: 73718; 73721

== ENCOUNTER → 2023-10-27 | Outpatient (CLI) | payer MEDICARE, BC, SELFPAY ==
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
[2023-10-27 12:41] LABS: Erythrocyte Sedimentation Rate 11 mm/hr (0-30)
[2023-10-27 12:42] LABS: Absolute Lymphocyte Count 2.24 X10^3/uL (0.83-4.51); Absolute Neutrophil Count 5.2 X10^3/uL (2.0-7.7); Basophil# 0.05 X10^3/uL; Basophil% 0.6 % (0-1); Eosinophil# 0.41 X10^3/uL; Eosinophils% 4.9 % (0-5); Hematocrit 33.8 % (37-47); Hemoglobin 10.7 g/dL (12.0-15.0); Lymphocyte # 2.24 X10^3/ul (0.83-4.51); Mean Corp Hgb Conc 31.7 g/dL (32-36); Mean Corpuscular Volume 88.5 fL (81-99); Mean Platelet Vol. 9.3 fl (6.2-12.0); Monocyte# 0.38 X10^3/uL; Monocyte% 4.6 % (0-10); NRBC Flagged by Analyzer 0 % (0-5); Neutrophil % 62.7 % (47-70); Platelet Count 321 K/mm3 (150-450); RBC Distribution Width CV 13.8 % (11.6-14.6); RBC Distribution Width SD 44.6 fl (35.1-43.9); Red Blood Count 3.82 M/mm3 (4.2-5.4); White Blood Count 8.3 K/mm3 (4.4-11.0)
[2023-10-27 13:11] LABS: ALB/GLOB Ratio 0.7 RATIO (0.9-2.4); AST(SGOT) 13 U/L (15-37); Alanine Aminotransfer ALT/SGPT 21 U/L (13-56); Albumin, Serum 3.1 g/dL (3.2-5.0); Alkaline Phosphatase 114 U/L (45-117); Anion Gap 4 (5-15); BUN 7 mg/dL (7-18); BUN/Creat Ratio 9.9 RATIO (10-20); Calcium,Total 9.1 mg/dL (8.5-10.1); Chloride 107 mmol/L (98-107); EST Glomerular Filtration Rate 91 mL/min (>60); Est Glom Filt Rate - Afr Amer 110 mL/min (>60); Globulin 4.2 g/dL (2.2-4.2); Glucose 102 mg/dL (74-106); Potassium 3.9 mmol/L (3.5-5.1); Protein, Total 7.3 g/dL (6.4-8.2); Sodium Level 140 mmol/L (136-145)
== END | disposition home or self-care (01) ==
PROVIDERS: PCP Family Medicine; Referring Provider Internal Medicine Rheumatology; Visit Provider Family Medicine
DX: E55.9 Vitamin D deficiency, unspecified (principal); M06.4 Inflammatory polyarthropathy; Z79.899 Other long term (current) drug therapy
CPT/HCPCS: 36415; 80053; 82306; 85025; 85652; 86140

== ENCOUNTER 2023-11-10 06:48 | Day surgery (SDC) | payer MEDICARE, BC, SELFPAY ==
--- NOTE | 2023-11-09 08:15 | BON_PTH ---
PATHOLOGY RESULTS PATIENT: CHAPO PEREZ [place] [facility] [place][id number] AGE/SX: 58/F ROOM: RE11/10/[address]: Dr. Akin Underwood DPM : 1965 BED: DIS: 11/10/2023 SPEC #: [id number] RECD: 11/10/23 13:12 STATUS: MARLA [facility] #: [id number] SILVER: 11/09/23 08:[address]: Akin Underwood DEPT: SURGICAL PATHOLOGY RECD BY: Clementina Riley ENTERED: 11/10/23 13:14 SP TYPE: Bone OTHR DR: Dr. Fani Dugan MD Tissues: ULCER Toe, NOS Procedures: Decalcification bone/plaque Surgery Specimen Level III HEADER OPERATION: Left foot ulcer debridement with rotational skin flap PRE-OP DIAGNOSIS: Nonhealing decubitus left foot ulcer TISSUE SUBMITTED: A - Heel ulcer left foot, B - Hammertoe fourth digit MICROSCOPIC DIAGNOSIS A. Ulcer left foot, excision: Focal ulceration, acute and chronic inflammation and granulation tissue reaction. B. Hammertoe fourth digit, excision: Pieces of bone with reactive changes, clinically aadn. DONNA:eladio 11/15/2023 MICROSCOPIC DESCRIPTION Slides are reviewed. GROSS DESCRIPTION A - Received in fixative is one container labeled with the patient's name and designated heel ulcer left foot. The specimen consists of four variable sized pieces of soft tissue measuring in aggregate 4.0 x 4.0 x 1.2 cm. A strip of hernández-white skin is also noted measuring 1.8 x 0.2 x 0.2 cm. No obvious mass lesion is identified. Saute Chef sections are submitted in two cassettes. B - Received in fixative is one container labeled with the patient's name and designated hammertoe fourth digit. The specimen consists of two pieces of bone measuring in aggregate 1.2 x 1.5 x 0.5 cm. The entire specimen is submitted in one cassette after decalcification. / DONNA:eladio 11/10/2023 TC:2 CPT: 42871 x2, 99341
[2023-11-10] VITALS (9 sets, daily range): BP systolic 100–129; BP diastolic 66–92; PULSE 85–98; RESP 12–18; TEMP 36.1–36.4; O2SAT 93–100; BMI 37.0
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
[2023-11-10] MEDS: Vancomycin HCl 1,750 MG in 0.9% Normal Saline (500mL Bag) 500 ML 250 MG IV (07:24)
[2023-11-10] MEDS: Lactated Ringers 1,000 ML 15 ML IV ×2 (07:24→09:57)
[2023-11-10] MEDS: Bupivacaine Mpf 0.5% 30 ML VIAL (08:34)
--- NOTE | 2023-11-10 09:44 | DCINST_ITS ---
Discharge Instructions Diet Discharge Diet: Light diet - advance as tolerated Activity Discharge Activity: May Not Drive Weight Bearing Status: No weight bearing (No weightbearing left foot) Keep extremity elevated above heart level: Left Leg Dressing / Incision Call your doctor if your incision/area has: Continuous Slow Oozing, Sudden Increased Bleeding, Increased Redness and Foul Smelling Discharge Call your doctor if you observe: Fever of 101 or Higher, Shortness of breath, Chest pain, Increased palpitations (irregular heartbeat), Calf discomfort and Uncontrolled pain Change Dressing in: leave in place till F/U Remove Dressing in: leave in place till F/U Cleanse incision/area with: Keep Dressing Clean & Dry Follow Up Care Please Follow Up With: Akin Underwood DPM When: Next week in office, sooner if needed Test Results: Test results from this visit will be discussed in further detail at your follow- up appointment, if applicable. Discharge Plan Admission Attending Provider: Akin Underwood Primary Care Provider: Fani Dugan Discharge Orders/Prescriptions Prescriptions: No Action cyclobenzaprine 10 MG tablet 10 mg PO TID estradiol 1 MG tablet 1 mg PO DAILY gabapentin 300 MG capsule 300 mg PO BID lorazepam 1 MG tablet 1 mg PO PRN PRN (Reason: Anxiety) hydroxychloroquine 200 MG tablet 200 mg PO BID zolpidem 10 MG tablet 10 mg PO QHS duloxetine 60 MG capsule 60 mg PO BID Referrals / Follow Up: Fani Dugan MD [Primary Care Provider] - Disposition Disposition (needs filled in before D/C Order can be placed): Home, Self Care
--- NOTE | 2023-11-10 09:50 | PCM.OPRPT ---
Report of Operation Date of Procedure: 11/10/23 Pre-Operative Diagnosis: Heel ulcer down to fascia layer, left heel Hammer toe of the 2nd, 3rd and 4th toes left foot Post-Operative Diagnosis: Same Surgery/Procedure Performed:: Debridement of left heel ulceration down to fascia layer with rotational flap Arthroplasty left 4th toe Flexor tenotomy left 2nd and 3rd toes Surgeon: Akin Underwood tankage grinder: Shelley Type of Anesthesia: Local and MAC Specimen's removed: Debrided left heel ulcer sent to pathology left 4th digit hammer toe bone sent to pathology Estimated Blood Loss (mL): < 10 mL Description of Procedure: Indications: 58 year old female with history of chronic left heel ulceration, she also has 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 She has elected to proceed with debridement of left heel ulceration with rotational flap as well as arthroplasty 4th toe and flexor tenotomy of the 2nd and 3rd toes as these were flexible hammer toe deformities. Pre op MRI was negative for osteomyelitis to the toes, heel and rest of the foot. This was discussed with her in detail, reviewed procedures as well as alternative options. Reviewed possible benefits vs risks, goals, expectations and estimated healing time. Consent forms were reviewed with her and she freely signed them. No guarantees were given nor implied. No warranties were given. Operative Procedure: She was brought back to the operating room and was placed on the operating room table in the supine position. She was secured to the operating room table with safety belt around her waist. Well padded pneumatic tourniquets were applied around bilateral ankles. IV Vancomycin was given pre operatively for antibiotic prophylaxis. A time out was performed and she was properly identified and surgical plan was confirmed. She received MAC anesthesia per the anesthesia team. After the overlying skin was cleansed with 70% Isopropyl alcohol a left heel block and block to the tos was completed- a total of 10mL of 0.5% Bupivacaine plain was used. Left foot was scrubbed, prepped, and draped in the usual aseptic fashion. Left heel debridement and rotational flap: There was noted to be a chronic ulceration to the left plantar heel, there was nonviable tissue down to subcutaneous and fascia tissue layer, ulceration measured 3.5cm x 3.0cm, and this is the area debrided. There was no evidence of infection, no swelling, no erythema, no maloder, no fluctuance, no visible abscess, no purulence. The left ankle pneumatic tourniquet was inflated to 250mmHg after the foot was exsanguinated via elevation. The ulceration was debrided using a 15 blade removing all nonviable tissue, this was done in excisional fashion and was debrided down to fascia layer. This was debrided down to healthy viable base and margins. The debrided tissue was sent to pathology. The site was flushed with copious amounts of normal saline solution. A bilobed rotational full thickness flap was created with the base medially, from the medial heel and was rotated to cover the ulcer site. The blood supply to the flap was preserved. The flap was sutured to the skin edges of the debrided ulcer site using 2-0 prolene. Left 4th toe arthroplasty: Attention was directed to the 4th toe where there was significant contracture and healed ulcer to the proximal interphalangeal joint dorsally. Two semi-eliptical convering skin incisions were made over the proximal interphalangeal joint, the skin was excised. The extensor digitorum longus tendon was incised transversely and was reflected off of the head of the proximal phalanx, the head of the phalanx was resected using a powered sagittal saw. The resected bone was sent to pathology. There was still some contracture of the toe due to contracted extensor tendon and capsule at the level of the 4th metatarsal phalangeal joint so a small skin incision was made over the metatarsal phalangeal joint and the extensor tendon and capsule were released. The toe was in a much improved position. The The site was flushed with copious amounts of normal saline solution. The skin incision was reapproximated using 2-0 prolene. Left 3rd toe flexor tenotomy: Attention was directed to the 3rd toe, it was significantly contracted, but was flexible. Using a 15 blade a skin incision was made to the plantar aspect of the base of the toe, dissection was completed down to the flexor tendons and they were released, the toe was in a much better position. The site was flushed with copious amounts of normal saline solution. The skin incision was reapproximated using 2-0 prolene. Left 2nd toe flexor tenotomy: Attention was directed to the 2nd toe, it was significantly contracted, but was flexible. Using a 15 blade a skin incision was made to the plantar aspect of the base of the toe, dissection was completed down to the flexor tendons and they were released, the toe was in a much better position. The site was flushed with copious amounts of normal saline solution. The skin incision was reapproximated using 2-0 prolene. The left ankle pneumatic tourniquet was deflated and there was immediate return of vascular flow to the foot and to all toes, CFT < 2 seconds, no evidence of ischemia. Total tourniquet time was 60 minutes. The flap was viable, CFT < 3 seconds. A dressing was applied which consisted of adaptic, 4x4 gauze, kerlix and trang dressing. She tolerated the procedure well with no complications. She was transported from the operating room to the recovery room with vital signs stable and in good condition. Post op orders were placed and she will be followed as inpatient. Grafts/Implants Used: None Complications None
--- NOTE | 2023-11-10 09:52 | VDLE_ITS ---
Reason For Study: Bilateral leg swelling RIGHT LEFT GSV is normal. GSV is normal. CFV is compressible, spontaneous, phasic, CFV is compressible, spontaneous, phasic, competent and demonstrates normal competent, and demonstrates normal augmentation. augmentation. FV is compressible, spontaneous, phasic, FV is compressible, spontaneous, phasic, competent and demonstrates normal competent and demonstrates normal augmentation. augmentation. POP V is compressible, spontaneous, phasic, POP V is compressible, spontaneous, phasic, competent and demonstrates normal competent and demonstrates normal augmentation. augmentation. T/P Trunk is compressible. T/P Trunk is compressible. PTV is compressible. PTV is compressible. RT PerV is compressible. LT PerV is compressible. Procedure This is a venous duplex using B-mode, color flow and spectral Doppler. Exam performed in PACU. A preliminary report was called and/or faxed to NATHAN KENDALL. VL/Venous Duplex US - Dejan Extrem Interpretation Summary Deep veins of the bilateral lower extremities are patent and compressible segme ntally. There is no evidence of bilateral lower extremity deep vein thrombosis. The bilateral great saphenous veins appear patent and compressible segmentally. Ordering Physician: Akin Underwood Referring Physician: Fani Dugan Performed By: Sneha Smith RVT
--- NOTE | 2023-11-10 10:00 | RAD_ITS ---
STUDY: X-RAY - LEFT FOOT CLINICAL: Female, 58 years old. Post op. TECHNIQUE: 3 views of the left foot. COMPARISON: Left foot radiographs dated 06/15/2023. FINDINGS: Intact talus, calcaneus, and tarsal bones. There are plantar and posterior calcaneal spurs. Normal visualized subtalar, talonavicular, calcaneocuboid, tarsal and tarsometatarsal articulations. Normal metatarsi. Normal metatarsophalangeal joint of the great toe. Normal tibial and fibular sesamoid bones. Normal interphalangeal joint of the great toe. Normal phalanges of the great toe. Normal second through fourth metatarsophalangeal joints. Normal interphalangeal joints and phalanges of the second through fourth toes. There is amputation of the fifth digit through the fifth MTP joint. There is stable osseous deformity of the fifth metatarsal head. There is no demonstrated fracture. RAD/Foot min 3 Views IMPRESSION: Plantar and posterior calcaneal spurs. Amputation of the fifth digit through the fifth MTP joint. Stable osseous deformity of the fifth metatarsal head. Electronically Signed: Zeus Guerrero MD at 14:36 EST Reading Location ID and State: [facility] / [place] , Service support ,
[2023-11-10 10:41] LABS: Absolute Lymphocyte Count 2.45 X10^3/uL (0.83-4.51); Absolute Neutrophil Count 6.4 X10^3/uL (2.0-7.7); Basophil# 0.04 X10^3/uL; Basophil% 0.4 % (0-1); Eosinophil# 0.24 X10^3/uL; Eosinophils% 2.5 % (0-5); Hematocrit 34.5 % (37-47); Hemoglobin 10.7 g/dL (12.0-15.0); Lymphocyte # 2.45 X10^3/ul (0.83-4.51); Lymphocyte % 25.3 % (19-41); Mean Corpuscular Hgb 26.8 pg (27.0-32.0); Mean Corpuscular Volume 86.5 fL (81-99); Monocyte# 0.56 X10^3/uL; Monocyte% 5.8 % (0-10); NRBC Flagged by Analyzer 0 % (0-5); Neutrophil # 6.36 X10^3/uL (2.7-7.7); Neutrophil % 65.8 % (47-70); Platelet Count 319 K/mm3 (150-450); RBC Distribution Width CV 13.5 % (11.6-14.6); RBC Distribution Width SD 42.8 fl (35.1-43.9); Red Blood Count 3.99 M/mm3 (4.2-5.4); White Blood Count 9.7 K/mm3 (4.4-11.0)
[2023-11-10 11:00] LABS: ALB/GLOB Ratio 0.7 RATIO (0.9-2.4); AST(SGOT) 8 U/L (15-37); Alanine Aminotransfer ALT/SGPT 12 U/L (13-56); Albumin, Serum 3.2 g/dL (3.2-5.0); Alkaline Phosphatase 126 U/L (45-117); Anion Gap 1 (5-15); BUN 9 mg/dL (7-18); BUN/Creat Ratio 11.9 RATIO (10-20); Chloride 109 mmol/L (98-107); Creatinine, Serum 0.75 mg/dL (0.55-1.02); EST Glomerular Filtration Rate 84 mL/min (>60); Est Glom Filt Rate - Afr Amer 101 mL/min (>60); Estimated Creatinine Clearance 106.49 ml/min; Globulin 4.4 g/dL (2.2-4.2); Glucose 92 mg/dL (74-106); Protein, Total 7.6 g/dL (6.4-8.2); Sodium Level 139 mmol/L (136-145)
== END 2023-11-10 12:21 | disposition home or self-care (01) ==
LOC: SDC 06:50 → AC 06:51
PROVIDERS: PCP Family Medicine; Referring Provider Podiatrist; Visit Provider Podiatrist
PROC: (CPT 11043; principal; 2023-11-10 08:00)
DX: L97.422 Non-pressure chronic ulcer of left heel and midfoot with fat layer exposed (principal); M32.9 Systemic lupus erythematosus, unspecified; M20.42 Other hammer toe(s) (acquired), left foot; X58.XXXA Exposure to other specified factors, initial encounter; M79.89 Other specified soft tissue disorders; Z79.899 Other long term (current) drug therapy
CPT/HCPCS: 11043; 28285; 14040; 28232 ×2; 73630; 80053; 85025; 88304; 88305; 88311; 93970; J7040; J7120; J2405

== ENCOUNTER → 2024-07-08 | Outpatient (CLI) | payer MEDICARE, BC, SELFPAY ==
[2024-07-08 12:14] LABS: Absolute Lymphocyte Count 2.09 X10^3/uL (0.83-4.51); Absolute Neutrophil Count 3.7 X10^3/uL (2.0-7.7); Basophil# 0.04 X10^3/uL; Basophil% 0.6 % (0-1); Eosinophil# 0.23 X10^3/uL; Eosinophils% 3.6 % (0-5); Hemoglobin 11.9 g/dL (12.0-15.0); Lymphocyte # 2.09 X10^3/ul (0.83-4.51); Lymphocyte % 32.4 % (19-41); Mean Corp Hgb Conc 32.2 g/dL (32-36); Mean Corpuscular Hgb 28.1 pg (27.0-32.0); Mean Corpuscular Volume 87.3 fL (81-99); Mean Platelet Vol. 9.6 fl (6.2-12.0); Monocyte# 0.37 X10^3/uL; Monocyte% 5.7 % (0-10); NRBC Flagged by Analyzer 0 % (0-5); Neutrophil % 57.4 % (47-70); Platelet Count 300 K/mm3 (150-450); RBC Distribution Width CV 13.2 % (11.6-14.6); RBC Distribution Width SD 42.6 fl (35.1-43.9); Red Blood Count 4.24 M/mm3 (4.2-5.4); White Blood Count 6.5 K/mm3 (4.4-11.0)
[2024-07-08 12:18] LABS: Erythrocyte Sedimentation Rate 14 mm/hr (0-30)
[2024-07-08 13:06] LABS: ALB/GLOB Ratio 0.9 RATIO (0.9-2.4); AST(SGOT) 13 U/L (15-37); Alanine Aminotransfer ALT/SGPT 15 U/L (13-56); Albumin, Serum 3.5 g/dL (3.2-5.0); Alkaline Phosphatase 100 U/L (45-117); Anion Gap 7 (5-15); BUN 8 mg/dL (7-18); BUN/Creat Ratio 10.6 RATIO (10-20); CRP 4.79 mg/L (0.0-3.0); Calcium,Total 9.1 mg/dL (8.5-10.1); Chloride 104 mmol/L (98-107); Creatinine, Serum 0.76 mg/dL (0.55-1.02); EST Glomerular Filtration Rate 83 mL/min (>60); Est Glom Filt Rate - Afr Amer 101 mL/min (>60); Globulin 4.1 g/dL (2.2-4.2); Glucose 90 mg/dL (74-106); Potassium 4.1 mmol/L (3.5-5.1); Protein, Total 7.6 g/dL (6.4-8.2); Sodium Level 138 mmol/L (136-145)
[2024-07-08 15:10] LABS: Color, Urine Yellow (Yellow); Glucose, Dipstick Normal (Normal); Ketone-Dipstick Negative (Negative); Leukocyte Esterase-Dipstick Negative /ul (Negative); Nitrite-Dipstick Negative (Negative); Occult Blood-Urine Negative /ul (Negative); Protein-Dipstick Negative (Negative); Specific Gravity, Urine 1.005 (1.002-1.030); Urine Bilirubin Dipstick Negative (Negative); Urine Clarity Sl. Cloudy (Clear); Urine Urobilinogen Normal (Normal)
[2024-07-08 16:09] LABS: Protein, Urine (Random) 12.2 mg/dL (<11.9); Protein:Creat Ratio 260 mg/g CRE (0-200)
== END | disposition home or self-care (01) ==
PROVIDERS: PCP Nurse Practitioner Family; Referring Provider Internal Medicine Rheumatology; Visit Provider Internal Medicine Rheumatology
DX: M06.4 Inflammatory polyarthropathy (principal); M35.1 Other overlap syndromes; M79.7 Fibromyalgia; M17.0 Bilateral primary osteoarthritis of knee; Z79.899 Other long term (current) drug therapy
CPT/HCPCS: 36415; 80053; 81002; 82570; 84156; 85025; 85652; 86140

== ENCOUNTER → 2024-07-09 | Outpatient (CLI) | payer MEDICARE, BC, SELFPAY ==
--- NOTE | 2024-07-09 10:51 | RAD_ITS ---
STUDY: X-RAY - LEFT KNEE REASON FOR EXAM: Female, 58 years old. Inflammatory polyarthropathy. TECHNIQUE: 4 views of the left knee. COMPARISON: None. FINDINGS: Normal visualized distal femur. Normal visualized proximal tibia and fibula. Normal proximal tibiofibular articulation. There is no demonstrated fracture. There is mild degenerative arthrosis of the medial femorotibial compartment. There is mild degenerative arthrosis of the lateral femorotibial compartment. There is mild degenerative arthrosis of the patellofemoral articulation. The soft tissue structures are unremarkable. RAD/Knee 4 or More Views IMPRESSION: Mild tricompartment degenerative arthrosis. No demonstrated fracture. Electronically Signed: Zeus Guerrero MD at 14:44 EDT ,
--- NOTE | 2024-07-09 10:51 | RAD_ITS ---
STUDY: X-RAY - RIGHT KNEE REASON FOR EXAM: Female, 58 years old. PAIN TECHNIQUE: 4 views of the right knee. COMPARISON: None. FINDINGS: Normal visualized distal femur. Normal visualized proximal tibia and fibula. Normal proximal tibiofibular articulation. There is no demonstrated fracture. There is moderate degenerative arthrosis of the medial femorotibial compartment with moderate joint space narrowing. There is mild degenerative arthrosis of the lateral femorotibial compartment. There is mild degenerative arthrosis of the patellofemoral articulation. There is a moderate volume joint effusion. The soft tissue structures are unremarkable. RAD/Knee 4 or More Views IMPRESSION: Tricompartment degenerative arthrosis, most pronounced in the medial femorotibial compartment. Moderate joint effusion. No demonstrated fracture. Electronically Signed: Zeus Guerrero MD at 14:35 EDT ,
== END | disposition home or self-care (01) ==
LOC: MTLAB 11:03 → MTRAD 14:16
PROVIDERS: PCP Nurse Practitioner Family; Referring Provider Internal Medicine Rheumatology; Visit Provider Internal Medicine Rheumatology
DX: M06.4 Inflammatory polyarthropathy (principal); M35.1 Other overlap syndromes; M79.7 Fibromyalgia; M17.0 Bilateral primary osteoarthritis of knee; Z79.899 Other long term (current) drug therapy
CPT/HCPCS: 73564

== ENCOUNTER → 2024-08-29 | Outpatient (CLI) | payer MEDICARE, BC, SELFPAY ==
[2024-08-29 10:02] LABS: Absolute Lymphocyte Count 2.11 X10^3/uL (0.83-4.51); Absolute Neutrophil Count 4.1 X10^3/uL (2.0-7.7); Basophil# 0.03 X10^3/uL; Basophil% 0.4 % (0-1); Eosinophil# 0.15 X10^3/uL; Eosinophils% 2.2 % (0-5); Hemoglobin 11.8 g/dL (12.0-15.0); Lymphocyte # 2.11 X10^3/ul (0.83-4.51); Lymphocyte % 30.7 % (19-41); Mean Corp Hgb Conc 31.1 g/dL (32-36); Mean Corpuscular Volume 90.3 fL (81-99); Mean Platelet Vol. 9.1 fl (6.2-12.0); Monocyte# 0.42 X10^3/uL; Monocyte% 6.1 % (0-10); NRBC Flagged by Analyzer 0 % (0-5); Neutrophil # 4.14 X10^3/uL (2.7-7.7); Neutrophil % 60.3 % (47-70); Platelet Count 279 K/mm3 (150-450); RBC Distribution Width CV 13.8 % (11.6-14.6); RBC Distribution Width SD 45.6 fl (35.1-43.9); Red Blood Count 4.21 M/mm3 (4.2-5.4); White Blood Count 6.9 K/mm3 (4.4-11.0)
[2024-08-29 10:39] LABS: ALB/GLOB Ratio 0.9 RATIO (0.9-2.4); AST(SGOT) 9 U/L (15-37); Alanine Aminotransfer ALT/SGPT 14 U/L (13-56); Albumin, Serum 3.4 g/dL (3.2-5.0); Alkaline Phosphatase 96 U/L (45-117); Anion Gap 6 (5-15); BUN 10 mg/dL (7-18); BUN/Creat Ratio 12.9 RATIO (10-20); Chloride 104 mmol/L (98-107); Creatinine, Serum 0.77 mg/dL (0.55-1.02); EST Glomerular Filtration Rate 81 mL/min (>60); Est Glom Filt Rate - Afr Amer 98 mL/min (>60); Globulin 3.8 g/dL (2.2-4.2); Glucose 96 mg/dL (74-106); Potassium 3.7 mmol/L (3.5-5.1); Protein, Total 7.2 g/dL (6.4-8.2); Sodium Level 139 mmol/L (136-145)
== END | disposition home or self-care (01) ==
PROVIDERS: PCP Nurse Practitioner Family; Referring Provider Internal Medicine Rheumatology; Visit Provider Internal Medicine Rheumatology
DX: M06.4 Inflammatory polyarthropathy (principal); Z79.899 Other long term (current) drug therapy
CPT/HCPCS: 36415; 80053; 85025

== ENCOUNTER → 2024-08-30 | Outpatient (CLI) | payer MEDICARE, BC, SELFPAY ==
[2024-09-02 16:10] LABS: G6PD Quant Test 223 (127-427)
== END | disposition home or self-care (01) ==
LOC: MTLAB 10:32
PROVIDERS: PCP Nurse Practitioner Family; Referring Provider Internal Medicine Rheumatology; Visit Provider Internal Medicine Rheumatology
DX: M06.4 Inflammatory polyarthropathy (principal); M35.1 Other overlap syndromes; M79.7 Fibromyalgia; Z79.899 Other long term (current) drug therapy
CPT/HCPCS: 36415; 82955

== ENCOUNTER → 2024-12-23 | Outpatient (CLI) | payer MEDICARE, BC, SELFPAY ==
[2024-12-23 18:09] LABS: Absolute Lymphocyte Count 2.56 X10^3/uL (0.83-4.51); Basophil# 0.05 X10^3/uL; Basophil% 0.5 % (0-1); Eosinophil# 0.26 X10^3/uL; Eosinophils% 2.5 % (0-5); Hematocrit 36.1 % (37-47); Hemoglobin 11.5 g/dL (12.0-15.0); Lymphocyte # 2.56 X10^3/ul (0.83-4.51); Lymphocyte % 24.3 % (19-41); Mean Corp Hgb Conc 31.9 g/dL (32-36); Mean Corpuscular Hgb 28.3 pg (27.0-32.0); Mean Corpuscular Volume 88.7 fL (81-99); Mean Platelet Vol. 10.1 fl (6.2-12.0); Monocyte# 0.69 X10^3/uL; Monocyte% 6.5 % (0-10); NRBC Flagged by Analyzer 0 % (0-5); Neutrophil # 6.95 X10^3/uL (2.7-7.7); Neutrophil % 65.9 % (47-70); Platelet Count 296 K/mm3 (150-450); RBC Distribution Width CV 13.6 % (11.6-14.6); RBC Distribution Width SD 44.3 fl (35.1-43.9); Red Blood Count 4.07 M/mm3 (4.2-5.4); White Blood Count 10.5 K/mm3 (4.4-11.0)
[2024-12-23 18:14] LABS: ALB/GLOB Ratio 1.4 RATIO (0.9-2.4); AST(SGOT) 13 U/L (<=31); Alanine Aminotransfer ALT/SGPT 7 U/L (<=34); Alkaline Phosphatase 100 U/L (35-104); Anion Gap 8 (5-15); BUN 9 mg/dL (4-19); BUN/Creat Ratio 13.2 RATIO (10-20); Calcium,Total 9.6 mg/dL (7.6-11.0); Carbon Dioxide 28.2 mmol/L (21.0-32.0); Chloride 104 mmol/L (98-108); Creatinine, Serum 0.68 mg/dL (0.70-1.20); EST Glomerular Filtration Rate 100 (>60); Globulin 2.9 g/dL (2.2-4.2); Glucose 94 mg/dL (70-99); Potassium 4.4 mmol/L (3.3-5.1); Protein, Total 6.9 g/dL (5.9-8.4); Sodium Level 140 mmol/L (133-145); Total Bilirubin < 0.15 mg/dL (0.00-1.30)
== END | disposition home or self-care (01) ==
LOC: MTLAB 14:28
PROVIDERS: PCP Nurse Practitioner Family; Referring Provider Internal Medicine Rheumatology; Visit Provider Internal Medicine Rheumatology
DX: M06.4 Inflammatory polyarthropathy (principal); Z79.899 Other long term (current) drug therapy
CPT/HCPCS: 36415; 80053; 85025

== ENCOUNTER → 2025-02-19 | Outpatient (CLI) | payer MEDICARE, BC, SELFPAY ==
--- NOTE | 2025-02-19 11:42 | RAD_ITS ---
PROCEDURE: FOOT MIN 3 VIEWS 02/19/2025 REASON FOR EXAM: CELLULITIS OF RIGHT LOWER LIMB TECHNIQUE: 3 views of the right foot. COMPARISON: 06/15/2023 FINDINGS: There is now a large area osseous erosion/destruction at the amputation margin of the distal 1st metatarsal consistent with osteomyelitis. Adjacent surrounding marked soft tissue swelling medial forefoot extends to the midfoot consistent with soft tissue infection. There is new multifocal areas of osseous lucency at the bases of the 2nd through 5th metatarsals and likely at the medial and lateral cuneiforms and cuboid at the midfoot concerning for osseous destruction from osteomyelitis with possibility of midfoot septic arthritis not excluded. Dorsal midfoot soft tissue swelling There is again dislocation of the 2nd metatarsophalangeal joint. Interval osseous healing at previous amputation at the distal aspect of the 3rd proximal phalanx. Small enthesophyte formation plantar surface of the calcaneus again noted. No radiopaque foreign body identified. RAD/Foot min 3 Views IMPRESSION: There is now a large area osseous erosion/destruction at the amputation margin of the distal 1st metatarsal consistent with osteomyelitis. Adjacent surrounding marked soft tissue swelling medial forefoot extends to the midfoot consistent with soft tissue infection. There is new multifocal areas of osseous lucency at the bases of the 2nd throug h 5th metatarsals and likely at the medial and lateral cuneiforms and cuboid at the midfoot concerning for osseous destruction from osteomyelitis with possibility of midfoot septic arthritis not excluded. Dorsal midfoot soft tissue swelling Reading Location: [id number]
[2025-02-19 17:32] LABS: M R Staph aureus DNA By PCR POSITIVE (Negative); Staph aureus DNA By PCR POSITIVE (Negative)
== END | disposition home or self-care (01) ==
PROVIDERS: PCP Nurse Practitioner Family; Referring Provider Nurse Practitioner Family; Visit Provider Nurse Practitioner Family
DX: L03.115 Cellulitis of right lower limb (principal)
CPT/HCPCS: 73630; 87070; 87075; 87077; 87186; 87205; 87640

== ENCOUNTER 2025-02-21 13:47 | Inpatient (IN) | payer MEDICARE, BC, SELFPAY ==
[2025-02-21] VITALS (8 sets, daily range): BP systolic 102–142; BP diastolic 63–82; PULSE 99–118; RESP 16–20; TEMP 36.6–36.9; O2SAT 93–98; BMI 38.1; BMI 37.7
--- NOTE | 2025-02-21 14:06 | EX.ED.DYSGE1 ---
HPI History of Present Illness Chief Complaint: Lower Extremity Injury [facility] Medical History Ambulates with cane Amputation of toe of left foot Arthritis Connective tissue disease CPAP (continuous positive airway pressure) dependence Fibromyalgia Heartburn History of IBS Lupus Non-smoker Sjogren syndrome with dental involvement Sjogren syndrome with keratoconjunctivitis Sjogren syndrome with peripheral nervous system involvement Walker as ambulation aid Wears contact lenses Wears glasses Home Medications ?Medication ?Instructions ?Recorded ?Last Taken ?Type cyclobenzaprine 10 mg tablet 10 mg PO TID 04/15/20 11/09/23 History duloxetine 60 mg capsule,delayed 120 mg PO DAILY 04/15/20 11/09/23 History release estradiol 1 mg tablet 1 mg PO DAILY 04/15/20 11/09/23 History gabapentin 300 mg capsule 300 mg PO BID 04/15/20 11/09/23 History hydroxychloroquine 200 mg tablet 200 mg PO BID 04/15/20 11/09/23 History lorazepam 1 mg tablet 1 mg PO PRN PRN Anxiety 04/15/20 11/10/23 History zolpidem 10 mg tablet 10 mg PO QHS 04/15/20 11/09/23 History hydroxyzine HCl 25 mg tablet 12.5 - 50 mg PO TID PRN PRN anxiety 02/21/25 Unknown History sulfamethoxazole 800 1 tab PO BID 02/21/25 Unknown History mg-trimethoprim 160 mg tablet sulfasalazine 500 mg 500 mg PO TID 02/21/25 Unknown History tablet,delayed release Allergy/AdvReac Type Severity Reaction Status Date / Time Gadolinium-MRI Contrast Allergy Intermediate Hives Verified 02/21/25 13:47 Medium (CONTRAST) Iodinated Contrast Media (CT) Allergy Rash Verified 02/21/25 13:47 morphine Allergy Hives Verified 02/21/25 13:47 sertraline (From Zoloft) Allergy Swelling Verified 02/21/25 13:47 Family History (Updated 02/21/25 @ 17:[address] Antonella Nguyen MD) Father Pseudocholinesterase deficiency Prostate cancer Mother CAD (coronary artery disease) Heart disease Hypertension Breast cancer Lupus Surgical History (Updated 02/21/25 @ 17:[address] Antonella Nguyen MD) H/O wisdom tooth extraction H/O tubal ligation History of hysterectomy Hx of cholecystectomy Hx of Achilles tendon repair Social History household members: spouse Smoking Status: Never smoker alcohol intake: never substance use type: does not use EXAM Physical Exam Const Vital Signs: 02/21/25 13:47 02/21/25 13:59 02/21/25 15:00 Temperature 98.4 F 98.4 F 98.0 F Temperature Source Oral Oral Oral Pulse Rate 115 H 118 H 107 H Respiratory Rate 16 18 18 Blood Pressure 142/82 H 128/66 H 102/63 Blood Pressure Mean 102 86 76 Pulse Ox 98 94 93 Oxygen Delivery Method Room Air Room Air Room Air 02/21/25 16:00 02/21/25 17:00 02/21/25 17:00 Temperature 98.1 F 98.1 F 98.1 F Temperature Source Oral Oral Pulse Rate 103 H 103 H 103 H Respiratory Rate 18 18 18 Blood Pressure 114/72 123/79 H 123/79 H Blood Pressure Mean 86 93 93 Pulse Ox 94 96 96 Oxygen Delivery Method Room Air Room Air MDM MDM MDM Narrative Medical decision making narrative: HISTORY OF PRESENT ILLNESS: Chief complaint: Right foot pain 59-year-old female history of osteomyelitis right third toe. Presents right foot symptoms. Notes she is on Bactrim however symptoms are not improved. Denies fevers or chills denies any pain. States has neuropathy. Denies any falls or other trauma. REVIEW OF SYSTEMS: Pertinent positives: Right foot infection Pertinent negatives: As per HPI PHYSICAL EXAM: Nursing triage notes reviewed, Vital signs reviewed Constitutional: please see mdm Lungs: Clear to auscultation, No wheezing or rales. No increased work of breathing, no conversational dyspnea, no accessory muscle use, no nasal flaring. No respiratory distress noted Heart: Regular rate and rhythm, No murmurs, No rubs and No gallops, 2+ distal pulses (radial, femoral, posterior tibial) in all extremities Extremities: No edema Neuro: Intact sensation L1-S1 dermatomal distributions. Intact 5/5 strength in hip flexion (T12-L3). Knee extension (L2-L4). Ankle dorsiflexion (L4-L5). Ankle plantar flexion (S1). Great toe extension (L5). 2+ patellar and Achilles DTRs. Skin: swollen, edematous foot, erythema noted to medial dorsal foot. No crepitus, bullae. MEDICAL DECISION MAKING: Chief Complaint: please see HPI External records reviewed: Reviewed prior imaging studies: Reviewed x-ray of the right foot from February 20, 2024 showed large area of osseous erosion/obstruction at the amputation margin of the distal first metatarsal consistent with osteomyelitis with adjacent surrounding marked soft tissue swelling of the medial forefoot. Factors affecting care: History of osteomyelitis Social determinants of health: History obtained from others: none Consults: Internal medicine (Dr. Nguyen). Discussed with podiatry (Dr. Underwood)?recommended admitted to medicine, recommended MRI and broad-spectrum antibiotics. MDM Narrative: The patient was initially tachycardic otherwise afebrile and nontoxic-appearing. Exam with concern for cellulitis and consistent osteomyelitis. Neurovascular intact right lower extremity. Given imaging finding of osteomyelitis start the patient on broad-spectrum antibiotics. Obtain labs including ESR/CRP. Will admit the patient for IV antibiotics and further podiatry evaluation Initially treat the patient IV vancomycin and IV Zosyn. Order labs including ESR/CRP. I do not repeat x-ray as she had an x-ray of the involved extremity yesterday (02/20/2025) ALL IMAGES (IF OBTAINED) HAVE BEEN PERSONALLY REVIEWED AND INTERPRETED BY MYSELF. EKG with sinus tachycardia rate 110, left axis deviation, slightly prolonged QT interval 489, no STEMI ESR CRP elevated consistent with systemic inflammation CBC with no leukocytosis, mild anemia, no thrombocytopenia Lactate is wnl indicating no end-organ hypoperfusion and/or hypoxia. CMP without evidence of acute kidney injury, significant electrolyte abnormality, anion gap to suggest end organ hypo-perfusion, no evidence of metabolic acidosis with a normal bicarbonate, no evidence of hepatobiliary obstructive pathology. MRI pending Discussed the case with hospitalist Dr. Nguyen who agreed admit the patient to general medical floor. The patient and/or family, caregivers express understanding. The patient and/or family, caregivers agrees with the plan. Shared decision making: I will have a discussion with the patient and or visitors regarding risk/benefits of further testing or admission. They will be made aware of of the risk/benefits inherent in this decision they will be given the opportunity to voice understanding. Total critical care time today provided was at least 0 minutes. This excludes separately billable procedures. Critical care time (if documented) is secondary to the patient having high probability of clinically significant/life threatening deterioration in the patient's condition which required my urgent intervention. Impression: 1. Acute osteomyelitis 2. History fibromyalgia 3. History of lupus Dispo: Admit This note was generated with [employer] dictation software. It may contain incorrect words, spelling, and punctuation that were not noted in review of the chart prior to signing. Lab Data Labs: Laboratory Results - last 24 hr 02/21/25 14:21 WBC 9.3 RBC 3.91 L Hgb 11.1 L Hct 33.4 L MCV 85.4 MCH 28.4 MCHC 33.2 RDW Std Deviation 41.1 RDW Coeff of Jennifer 13.2 Plt Count 390 MPV 9.3 Immature Gran % (Auto) 0.300 Neut % (Auto) 69.0 Lymph % (Auto) 15.3 L [place] % (Auto) 11.7 H Eos % (Auto) 3.2 Baso % (Auto) 0.5 Absolute Neuts (auto) 6.4 Absolute Lymphs (auto) 1.43 Nucleated RBC % 0 ESR 54 H Sodium 134 Potassium 3.6 Chloride 100 Carbon Dioxide 24.0 Anion Gap 10 BUN 9 Creatinine 0.80 Estim Creat Clear Calc 100.26 Est GFR (MDRD) Non-Af 84 BUN/Creatinine Ratio 11.5 Glucose 118 H Lactic Acid 1.0 Calcium 9.5 Total Bilirubin 0.21 AST 22 ALT 14 Alkaline Phosphatase 182 H C-React Prot Ext Range 187.00 H Total Protein 7.7 Albumin 3.8 Globulin 3.9 Albumin/Globulin Ratio 1.0 Discharge Plan Triage Chief Complaint: Lower Extremity Injury ED Provider: Derek Mckeon Dx/Rx/DC Orders Prescriptions: No Action cyclobenzaprine 10 MG tablet 10 mg PO TID estradiol 1 MG tablet 1 mg PO DAILY gabapentin 300 MG capsule 300 mg PO BID lorazepam 1 MG tablet 1 mg PO PRN PRN (Reason: Anxiety) hydroxychloroquine 200 MG tablet 200 mg PO BID zolpidem 10 MG tablet 10 mg PO QHS duloxetine 60 MG capsule 120 mg PO DAILY sulfasalazine 500 mg tablet,delayed release (DR/EC) 500 mg PO TID sulfamethoxazole-trimethoprim 800-160 mg tablet 1 tab PO BID Patient Comments: pt started on 02/19/2025 hydroxyzine HCl 25 mg tablet 12.5 - 50 mg PO TID PRN PRN (Reason: anxiety) Primary Care Provider: Elmira Brownlee Referrals: Elmira Brownlee, [facility]AMINER[facility] [Primary Care Provider] - Print Language: Faroese
--- NOTE | 2025-02-21 14:10 | EKG12_ITS ---
Test Reason : GENERAL Blood Pressure : */* mmHG Vent. Rate : 110 BPM Atrial Rate : 110 BPM P-R Int : 138 ms QRS Dur : 102 ms QT Int : 362 ms P-R-T Axes : 39 -27 24 degrees QTcB Int : 489 ms Sinus tachycardia Minimal voltage criteria for LVH, may be normal variant ( [place] product ) Borderline ECG Confirmed by KEREN MAYES, TARA ([id number]), newspaper editor JAYDEN LAKHANI ([id number]) on 02/24/2025 8:49:22 AM Referred By: Antonella Nguyen Confirmed By: TARA VELIZ MD
--- NOTE | 2025-02-21 14:25 | MRI_ITS ---
PROCEDURE: Noncontrast MRI of the right foot 02/21/2025 REASON FOR EXAM: Right foot pain. Evaluate for osteomyelitis. Attention right 3rd toe. TECHNIQUE: Multi planar, multisequence MRI images of the right foot were obtained without IV contrast. COMPARISON: COMPARISON : Right foot radiographs 02/22/2025 FINDINGS: There is diffuse edema of the subcutaneous fat and soft tissues of the included portions of the right foot. There is moderate patchy marrow edema involving the mid to anterior calcaneus, and several tarsal bones. There are scattered subcortical cystic changes involving several tarsal bones as well as proximal metatarsals, which are favored to be on the basis of advanced degenerative joint disease. Some fat signal is maintained in the sinus tarsi. There has been amputation of the distal half of the 1st metatarsal in the distal phalanx of the 3rd toe. There is subluxation of the proximal phalanx of the 2nd toe relative to the head of the metatarsal. There is moderate abnormal marrow edema of a large portion of the residual 1st metatarsal. There is some mild patchy areas of edema involving the 2nd and 3rd metatarsals. Moderate degenerative changes of the MTP joints. There is moderate abnormal marrow signal involving the proximal phalanx of the right 1st toe. A normal distal phalanx of the right 2nd toe is not demonstrated and may be eroded. Mild increased marrow signal of the middle phalanx right 2nd toe. The distal phalanx of the right 3rd toe is absent. Marrow signal of the phalanges of the right 4th toe grossly unremarkable. There is abnormal marrow signal of the distal phalanx right 5th toe, with possible oblique fracture line on comparison right foot radiographs. At the amputation site near the distal aspect of the 1st metatarsal, there is a 2.9 x 1.9 x 0.5 cm curvilinear area of fluid signal, which could represent a small abscess versus postoperative seroma. There is some increased signal and thickening of the distal flexor hallucis longus tendon, which may relate to recent surgical procedure. Remaining major flexor and extensor tendons appear intact. The nonweightbearing alignment of the tarsal bones and Lisfranc ligament appear intact. MRI/Lower Ext/No Jt/w/o IMPRESSION: Prior amputation distal aspect of the 1st metatarsal and distal phalanx right 3 rd toe. There is possible oblique minimally displaced fracture involving the distal phalanx of the right 5th toe, demonstra helena on comparison right foot radiographs. Distal to the amputation site of the residual 1st metatarsal, there is a 2.9 x 1.9 x 0.5 cm curvilinear fluid collection which could represent an abscess versus postoperative seroma. There is diffuse edema of the soft tissues and subcutaneous fat of the right foot, which could be due to cellulitis. Moderate abnormal increased signal/marrow edema of the residual 1st metatarsal, as well as the proximal phalanx of the right 1st toe. These could be areas of reactive marrow edema or additional areas of oste omyelitis. Diffuse soft tissue swelling of the 2nd toe. A normal distal phalanx of the 2n d toe is not clearly demonstrated and may be eroded, possible osteomyelitis. Prior amputation distal phalanx of the 3rd toe. No focal abnormal marrow signa l of the right 4th toe. There is abnormal marrow signal and heterogeneous morphology of the distal phalanx right 5th toe, which could be due to osteomyelitis/fracture. Moderately extensive degenerative changes of the right foot involving the tarsa l bones, tarsal/metatarsal joints as well as the MTP and interphalangeal joints. There are scattered subcortical cystic foci of the tarsals and tarsometatarsal joints, which may be due to advanced degenerative joint disease. The extensive degenerative arellano ges of the tarsal bones and tarsal/metatarsal joints could be due to developing Charcot/neuropathic joint. The proximal aspect of the proximal phalanx of the 2nd toe is subluxed lateral and superior to the metatarsal head. Reading Location: [facility]
[2025-02-21] MEDS: Piperacil/Tazobactam 3.375 GM in 0.9% Normal Saline (50mL MB+) 50 ML IV ×2 (14:46→21:18)
[2025-02-21 15:10] LABS: AST(SGOT) 22 U/L (<=31); Alanine Aminotransfer ALT/SGPT 14 U/L (<=34); Albumin, Serum 3.8 g/dL (3.5-5.0); Alkaline Phosphatase 182 U/L (35-104); Anion Gap 10 (5-15); BUN 9 mg/dL (4-19); BUN/Creat Ratio 11.5 RATIO (10-20); Calcium,Total 9.5 mg/dL (7.6-11.0); Chloride 100 mmol/L (98-108); EST Glomerular Filtration Rate 84 (>60); Estimated Creatinine Clearance 100.26 ml/min (50-250); Globulin 3.9 g/dL (2.2-4.2); Glucose 118 mg/dL (70-99); Potassium 3.6 mmol/L (3.3-5.1); Protein, Total 7.7 g/dL (5.9-8.4); Sodium Level 134 mmol/L (133-145); Total Bilirubin 0.21 mg/dL (0.00-1.30)
[2025-02-21] MEDS: Vancomycin HCl 1,750 MG in 0.9% Normal Saline (500mL Bag) 500 ML 250 MG IV (15:35)
[2025-02-21 15:43] LABS: Absolute Lymphocyte Count 1.43 X10^3/uL (0.83-4.51); Absolute Neutrophil Count 6.4 X10^3/uL (2.0-7.7); Basophil# 0.05 X10^3/uL; Basophil% 0.5 % (0-1); Eosinophils% 3.2 % (0-5); Hematocrit 33.4 % (37-47); Hemoglobin 11.1 g/dL (12.0-15.0); Lymphocyte # 1.43 X10^3/ul (0.83-4.51); Lymphocyte % 15.3 % (19-41); Mean Corp Hgb Conc 33.2 g/dL (32-36); Mean Corpuscular Hgb 28.4 pg (27.0-32.0); Mean Corpuscular Volume 85.4 fL (81-99); Mean Platelet Vol. 9.3 fl (6.2-12.0); Monocyte# 1.09 X10^3/uL; Monocyte% 11.7 % (0-10); NRBC Flagged by Analyzer 0 % (0-5); Neutrophil # 6.44 X10^3/uL (2.7-7.7); Platelet Count 390 K/mm3 (150-450); RBC Distribution Width CV 13.2 % (11.6-14.6); RBC Distribution Width SD 41.1 fl (35.1-43.9); Red Blood Count 3.91 M/mm3 (4.2-5.4); White Blood Count 9.3 K/mm3 (4.4-11.0)
[2025-02-21 16:09] LABS: Erythrocyte Sedimentation Rate 54 mm/hr (0-30)
--- NOTE | 2025-02-21 17:19 | PCM.HP.STD ---
HPI - General General Date of Admission: 02/21/25 Date of Service: 02/21/25 Chief Complaint: R foot wound, increased drainage, worsened appearance with redness/edema. HPI Narrative The patient is a 59 y/o F w/ PMHx: Obesity, FAUSTINO on CPAP, GERD, Fibromyalgia, Sjogren's disease/SLE, Anxiety and Depression, CKD stage II per GFR trend who presents to the [facility] ED on 02/21/25 with history of known osteomyelitis of the right third toe currently on Bactrim however her symptoms are not improving with worsening appearance with right foot redness with no specific fevers or chills with underlying chronic neuropathy though she denies any significant severe pain to the region with no recent trauma to the region but given worsened appearance with increased swelling and erythema prompted ED evaluation. She also does note increased drainage from a small wound on the plantar aspect under her first metatarsal. From records most recent operative intervention per podiatry 11/10/2023 with debridement of left heel ulceration down to the fascia layer with rotational flap arthroplasty of the left fourth toe, flexor tenotomy of the left 2nd and 3rd toes. Workup in the ED included T98.4, heart rate 115, BP 142/82, respiratory rate 16, 98% room air with most recent repeat vitals T90.1, heart rate 103, BP 114/72, respiratory rate 18, 94% room air, CBC with WBC 9.3, hemoglobin 0.1, MCV 85.4, platelet 390 without marked shift, ESR 54, CRP 187, CMP with glucose 118, alk phos 182 otherwise unremarkable, lactic acid 1.0, EKG with sinus tachycardia with no acute evidence of ischemia.. Recent outpatient film of the right lower extremity secondary to cellulitis of the foot with a large area of osseous erosion/destruction at the amputation margin of the distal first metatarsal consistent with osteomyelitis with adjacent surrounding marked soft tissue swelling to the medial forefoot extending to the midfoot consistent with soft tissue infection with new multifocal areas of osseous lucency at the bases of the 2nd through 5th metatarsals and likely at the medial and lateral cuneiforms and cuboid at the midfoot concerning for osseous destruction from osteomyelitis with possibility of midfoot septic arthritis, dorsal midfoot soft tissue swelling. In the ED patient ministered IV vancomycin and IV Zosyn therapy. ED discussed case with Podiatry who requested medical admission given her underlying histories and also MRI foot was initiated. [facility] Medical History Amputation of toe of left foot Wears contact lenses Wears glasses Connective tissue disease Walker as ambulation aid Ambulates with cane Arthritis History of IBS Heartburn Non-smoker CPAP (continuous positive airway pressure) dependence Fibromyalgia Sjogren syndrome with dental involvement Sjogren syndrome with keratoconjunctivitis Sjogren syndrome with peripheral nervous system involvement Lupus Home Medications ?Medication ?Instructions ?Recorded ?Last Taken ?Type cyclobenzaprine 10 mg tablet 10 mg PO TID 04/15/20 11/09/23 History duloxetine 60 mg capsule,delayed 120 mg PO DAILY 04/15/20 11/09/23 History release estradiol 1 mg tablet 1 mg PO DAILY 04/15/20 11/09/23 History gabapentin 300 mg capsule 300 mg PO BID 04/15/20 11/09/23 History hydroxychloroquine 200 mg tablet 200 mg PO BID 04/15/20 11/09/23 History lorazepam 1 mg tablet 1 mg PO PRN PRN Anxiety 04/15/20 11/10/23 History zolpidem 10 mg tablet 10 mg PO QHS 04/15/20 11/09/23 History hydroxyzine HCl 25 mg tablet 12.5 - 50 mg PO TID PRN PRN anxiety 02/21/25 Unknown History sulfamethoxazole 800 1 tab PO BID 02/21/25 Unknown History mg-trimethoprim 160 mg tablet sulfasalazine 500 mg 500 mg PO TID 02/21/25 Unknown History tablet,delayed release Allergy/AdvReac Type Severity Reaction Status Date / Time Gadolinium-MRI Contrast Allergy Intermediate Hives Verified 02/21/25 13:47 Medium (CONTRAST) Iodinated Contrast Media (CT) Allergy Rash Verified 02/21/25 13:47 morphine Allergy Hives Verified 02/21/25 13:47 sertraline (From Zoloft) Allergy Swelling Verified 02/21/25 13:47 Family History (Updated 02/21/25 @ 17:[address] Antonella Nguyen MD) Father Pseudocholinesterase deficiency Prostate cancer Mother CAD (coronary artery disease) Heart disease Hypertension Breast cancer Lupus Surgical History (Updated 02/21/25 @ 17:[address] Antonella Nguyen MD) H/O wisdom tooth extraction H/O tubal ligation History of hysterectomy Hx of cholecystectomy Hx of Achilles tendon repair Social History (Updated 02/21/25 @ 17:[address] Antonella Nguyen MD) household members: spouse Smoking Status: Never smoker alcohol intake: never substance use type: does not use ROS ROS Narrative Admission Review of Systems: CONSTITUTIONAL: No weight loss, fever, chills, + weakness or fatigue. HEENT: Eyes: No visual loss, blurred vision, double vision or yellow sclerae. Ears, Nose, Throat: No hearing loss, sneezing, congestion, runny nose or sore throat. SKIN: No rash or itching, lesions except right foot dorsal small open wound with drainage, erythema to the foot and swelling. CARDIOVASCULAR: No chest pain, chest pressure or chest discomfort, palpitations, edema, orthopnea, syncopal events. RESPIRATORY: No shortness of breath, cough or sputum, wheezing, hemoptysis. GASTROINTESTINAL: No anorexia, nausea, vomiting or diarrhea, abdominal pain, melena, BRBPR. GENITOURINARY: No dysuria, frequency, urgency or retention. NEUROLOGICAL: + Chronic neuropathy. No headache, dizziness, syncope, paralysis, ataxia, focal weakness, change in bowel or bladder control, seizure. MUSCULOSKELETAL: + muscle, back pain, joint pain or stiffness. HEMATOLOGIC: + Chronic anemia, no marked easy history of bleeding/bruising. LYMPHATICS: No enlarged nodes. No history of splenectomy. PSYCHIATRIC: + History of anxiety and depression. ENDOCRINOLOGIC: No reports of sweating, cold or heat intolerance. No polyuria or polydipsia. ALLERGIES: + History of hives. Vital Signs Vital Signs Vital Signs: 02/21/25 13:47 02/21/25 13:59 02/21/25 15:00 Temperature 98.4 F 98.4 F 98.0 F Temperature Source Oral Oral Oral Pulse Rate 115 H 118 H 107 H Respiratory Rate 16 18 18 Blood Pressure 142/82 H 128/66 H 102/63 Blood Pressure Mean 102 86 76 Pulse Ox 98 94 93 Oxygen Delivery Method Room Air Room Air Room Air 02/21/25 16:00 02/21/25 17:00 02/21/25 17:00 Temperature 98.1 F 98.1 F 98.1 F Temperature Source Oral Oral Pulse Rate 103 H 103 H 103 H Respiratory Rate 18 18 18 Blood Pressure 114/72 123/79 H 123/79 H Blood Pressure Mean 86 93 93 Pulse Ox 94 96 96 Oxygen Delivery Method Room Air Room Air Weight Weight: 251 lb Body Mass Index (BMI) 38.1 Physical Exam Narrative Physical Examination: General: Awake, alert, oriented x 3 and cooperative, seated upright in ED bed in no apparent distres, fatigued appearing s. Skin: Normal color, normal turgor, no icterus, no cyanosis except noted right foot with significant edema to the dorsal and plantar aspect with erythema extending up to the medial dorsal foot region with small plantar foot wound just at the first metatarsal region with drainage. HEENT: AT/NC, EOMI, PERRLA, mildly dry MM, no carotid bruits or JVD noted. Lungs: CTA bilaterally, moderate effort, mild decrease BL bases, no rales, ronchi or wheezing. Heart: Mildly tachycardic with regular rhythm; no gallop, rub audible. Abdomen: Soft, obese, NTTP, distant BS, no obvious distention or HSM however habitus makes evaluation difficult. Extremities: No cyanosis, no clubbing, see skin. Neurological: Patient awake, alert, oriented as noted cognitive function intact; pupils equally reactive to light and accommodation, cranial nerves gross normal, moving all 4 extremities, no focal deficits, strength moderately global decrease secondary to acute presentation for Psychiatric: Affect appears fatigued, no acute evidence of depressive or anxiety feelings but does have underlying history. Results Lab / Micro Data 02/21/25 14:21 02/21/25 14:21 Labs: Laboratory Results - last 24 hr 02/21/25 14:21: WBC 9.3, RBC 3.91 L, Hgb 11.1 L, Hct 33.4 L, MCV 85.4, MCH 28.4, MCHC 33.2, RDW Std Deviation 41.1, RDW Coeff of Jennifer 13.2, Plt Count 390, MPV 9.3, Immature Gran % (Auto) 0.300, Neut % (Auto) 69.0, Lymph % (Auto) 15.3 L, [place] % (Auto) 11.7 H, Eos % (Auto) 3.2, Baso % (Auto) 0.5, Absolute Neuts (auto) 6.4, Absolute Lymphs (auto) 1.43, Nucleated RBC % 0, ESR 54 H, Sodium 134, Potassium 3.6, Chloride 100, Carbon Dioxide 24.0, Anion Gap 10, BUN 9, Creatinine 0.80, Estim Creat Clear Calc 100.26, Est GFR (MDRD) Non-Af 84, BUN/Creatinine Ratio 11.5, Glucose 118 H, Lactic Acid 1.0, Calcium 9.5, Total Bilirubin 0.21, AST 22, ALT 14, Alkaline Phosphatase 182 H, C-React Prot Ext Range 187.00 H, Total Protein 7.7, Albumin 3.8, Globulin 3.9, Albumin/Globulin Ratio 1.0 Assessment & Plan Assessment/Plan (1) Cellulitis of right lower limb: PLAN: Plan The patient is a 59 y/o F w/ PMHx: Obesity, FAUSTINO on CPAP, GERD, Fibromyalgia, Sjogren's disease/SLE, Anxiety and Depression, CKD stage II per GFR trend who presents to the [facility] ED on 02/21/25 with history of known osteomyelitis of the right third toe currently on Bactrim however her symptoms are not improving with worsening appearance with right foot redness with no specific fevers or chills with underlying chronic neuropathy though she denies any significant severe pain to the region with no recent trauma to the region but given worsened appearance with increased swelling and erythema prompted ED evaluation. #1. Acute R foot Osteomyelitis, concern for R midfoot septic arthritis: Will admit to [facility], maintain on IV Vanc and Zosyn, will obtain Wound Cx/Wound MRSA PCR, MRI foot ordered and pending per ED via discussions with podatiry, continue consultation with podiatry and will request ID involvement, offloading, wound RN consultation, dressing changes, plan repeat CBC in AM, continue affected extremity elevation above heart when seated and in bed, monitor erythema outline with VS checks, NPO after midnight for possible OR. #2. Anxiety and depression: Continue patient home duloxetine and low-dose lorazepam as well as hydroxyzine regimen. Given current presentation we will be very judicious in continuation of her zolpidem regimen with hold for significant sedation but do not want patient to have significant insomnia. #3. Chronic normocytic anemia: Admission hemoglobin 11.1, MCV 85.4, baseline hemoglobin primarily 10-11 range, stable, continue to trend. #4. Sjogren's disease/SLE: Given acute infectious presentation, temporarily holding immunosuppressive regimen of sulfasalazine and hydroxychloroquine. #5. Chronic Kidney Disease Stage II per GFR trend: Admission BUN/Cr 9/0.80, GFR 84, baseline renal function primarily 0.7-0.8, repeat BMP in AM. #6. GERD: Per current list on a regimen, clarified to be certain, as needed Mylanta as needed. #7. Obesity: Weight loss and lifestyle changes encouraged. #8. FAUSTINO: CPAP nightly. #9. DVT prophylaxis: SCDs, defer chemoprophylaxis pending podiatry evaluation as likely will need OR. Charges/Coding Visit Charges Inpatient E&M: 13599 Init Hosp L3
--- NOTE | 2025-02-21 17:20 | ED.RN ---
This RN paused the patient's vancomycin for MRI. See MAR documentation.
--- NOTE | 2025-02-21 17:23 | ED.RN ---
This RN obtained the first set of blood cultures per orders at 1720. Pt had previously received IV antibiotics prior to obtaining blood cultures. MD llanos.
[2025-02-21] MEDS: 0.9% Normal Saline (1000mL) 1,000 ML 999 ML IV (19:56)
--- NOTE | 2025-02-21 19:56 | PCM.RX.CS ---
Consult Antibiotic Management Pharmacy has been consulted to manage selected antibiotic: Vancomycin Type of Intervention Type of Consult: New start Suspected Infection Suspected Infection: Skin/Soft tissue Labs Labs: Sodium 134 mmol/L (133-145) 02/21/25 14:21 Potassium 3.6 mmol/L (3.3-5.1) 02/21/25 14:21 Chloride 100 mmol/L (98-108) 02/21/25 14:21 Carbon Dioxide 24.0 mmol/L (21.0-32.0) 02/21/25 14:21 Anion Gap 10 (5-15) 02/21/25 14:21 BUN 9 mg/dL (4-19) 02/21/25 14:21 Creatinine 0.80 mg/dL (0.70-1.20) 02/21/25 14:21 Est GFR (MDRD) Non-Af 84 (>60) 02/21/25 14:21 BUN/Creatinine Ratio 11.5 RATIO (10-20) 02/21/25 14:21 Glucose 118 mg/dL (70-99) H 02/21/25 14:21 Pharmacy Plan for Drug Dosing Pharmacy Plan for Drug Dosing: NEW START IV VANCOMYCIN Consulting Physician: Patrick Indication: Cellulitis Goal Trough: 15-20 mg/dl SrCr: 0.8 mg/dL CrCl: 100 mL/min Comments: 1750mg initial dose given in ER 02/21/25 @ 1535 Vancomycin Dose: Will start 1500mg Q8 @ 2330 and get a trough prior to 4th total dose per policy. Pending Level: 02/22/25 @ 1500 Pharmacy Service will continue to monitor and adjust dosing as required.
--- NOTE | 2025-02-21 20:39 | PCM.CONS.GEN ---
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 Reviewed diagnostic findings. Reviewed right foot xrays from 02/19/2025, reviewed MRI from today. Findings c/w osteomyelitis to the right 1st and 2nd toes along with abscess to the 1st ray of right foot, midfoot findings c/w chronic charcot neuroarthropathy. This aligns with clinical findings. New right foot xrays ordered. Discussed the findings and options with patient. Given the findings discussed debridement of all nonviable, infected and necrotic soft tissue and bone right foot as well as 2nd toe amputation right foot. She was agreeable to proceed with this. Surgery is at least moderate risk. Reviewed 02/19/2025 culture findings: + MRSA, she is on IV antibiotics Vancomycin and Zosyn. A dressing of topical betadine soln, gauze, kerlix and trang was applied to right foot. No weightbearing right foot. Left heel wound: Topical triple antibiotic TID with occlusion due to dry skin with cracking. New left foot xrays ordered. NPO after midfoot. Thank you for consultation. HPI Consult Data Date of Consult: 02/21/25 HPI Narrative Reason for Consultation: Right foot infection HPI Narrative: CHAPO PEREZ, is a 59 F who presents for redness, swelling and drainage from right foot. She has a wound on the bottom of her right forefoot, at the base of the 1st toe. She also has a wound to the tip of right 2nd toe. There is swelling and redness to 1st ray right foot and to 2nd toe right foot. She relates started about a week ago, she saw primary care on 02/19/2025, had xrays and cultures. Culture + MRSA, and xrays concerning for osteomyelitis. She was started on Doxycycline at that time. Symptoms did worsen and she called my office. I spoke to her and advised to her go to the ER. She presented to ER and was admitted for further management. MRI has been obtained since being admitted. She also relates she has had a chronic crack to her left heel, skin is dry, no redness or swelling. She has no foot pain, but chronic peripheral neuropathy. She has Lupus. She relates she has been in denial about her feet. She denies calf pain bilateral. [facility] Medical History (Updated 02/21/25 @ 21:[address] Akin Underwood DPM) Sleep apnea Anxiety Depression Rheumatoid arthritis Migraines Amputation of toe of left foot Wears contact lenses Wears glasses Connective tissue disease Walker as ambulation aid Ambulates with cane Arthritis History of IBS Heartburn Non-smoker CPAP (continuous positive airway pressure) dependence Fibromyalgia Sjogren syndrome with dental involvement Sjogren syndrome with keratoconjunctivitis Sjogren syndrome with peripheral nervous system involvement Lupus Home Medications ?Medication ?Instructions ?Recorded ?Last Taken ?Type cyclobenzaprine 10 mg tablet 10 mg PO TID PRN MUSCLE SPASMS 04/15/20 11/09/23 History duloxetine 60 mg capsule,delayed 120 mg PO DAILY 04/15/20 11/09/23 History release estradiol 1 mg tablet 1 mg PO DAILY 04/15/20 11/09/23 History gabapentin 300 mg capsule 300 mg PO BID 04/15/20 11/09/23 History hydroxychloroquine 200 mg tablet 200 mg PO BID 04/15/20 11/09/23 History lorazepam 1 mg tablet 1 mg PO DAILY PRN Anxiety 04/15/20 11/10/23 History zolpidem 10 mg tablet 10 mg PO QHS 04/15/20 11/09/23 History hydroxyzine HCl 25 mg tablet 12.5 - 50 mg PO TID PRN PRN anxiety 02/21/25 Unknown History sulfamethoxazole 800 1 tab PO BID 02/21/25 Unknown History mg-trimethoprim 160 mg tablet sulfasalazine 500 mg 500 mg PO TID 02/21/25 Unknown History tablet,delayed release Allergy/AdvReac Type Severity Reaction Status Date / Time Gadolinium-MRI Contrast Allergy Intermediate Hives Verified 02/21/25 13:47 Medium (CONTRAST) Iodinated Contrast Media (CT) Allergy Rash Verified 02/21/25 13:47 morphine Allergy Hives Verified 02/21/25 13:47 sertraline (From Zoloft) Allergy Swelling Verified 02/21/25 13:47 Family History (Updated 02/21/25 @ 17:[address] Antonella Nguyen MD) Father Pseudocholinesterase deficiency Prostate cancer Mother CAD (coronary artery disease) Heart disease Hypertension Breast cancer Lupus Surgical History H/O wisdom tooth extraction H/O tubal ligation History of hysterectomy Hx of cholecystectomy Hx of Achilles tendon repair Social History (Updated 02/21/25 @ 17:[address] Antonella Nguyen MD) household members: spouse Smoking Status: Never smoker alcohol intake: never substance use type: does not use Physical Exam Const alert, oriented x3 and no apparent distress Constitutional Narrative: Right foot with pencil eraser sized wound sub 1st MTPJ which probes to bone of the 1st metatarsal, there is serous like drainage, there is edema and erythema to the 1st ray of the right foot, there is also edema to the 2nd toe with erythema to the distal 50%, there is severe contracture of the toe with dry scab present. There is diffuse edema to foot and ankle. No erythema to midfoot or hindfoot or ankle, no visible necrosis, no maloder no blistering to bilateral foot. No edema left foot. There is dry cracking of skin posterior/plantar left heel down to subcutaneous tissue with no deep probing or evidence of any infection. CFT < 2 seconds to all toes, no evidence of acute ischemia bilateral foot. Calf soft and supple bilateral with no calf pain. No POP or pain on ROM to foot or ankle bilateral. Chronic peripheral neuropathy bilateral. 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 Lab / Micro Data 02/21/25 14:21 02/21/25 14:21 Labs: Laboratory Results - last 24 hr 02/21/25 14:21: WBC 9.3, RBC 3.91 L, Hgb 11.1 L, Hct 33.4 L, MCV 85.4, MCH 28.4, MCHC 33.2, RDW Std Deviation 41.1, RDW Coeff of Jennifer 13.2, Plt Count 390, MPV 9.3, Immature Gran % (Auto) 0.300, Neut % (Auto) 69.0, Lymph % (Auto) 15.3 L, [place] % (Auto) 11.7 H, Eos % (Auto) 3.2, Baso % (Auto) 0.5, Absolute Neuts (auto) 6.4, Absolute Lymphs (auto) 1.43, Nucleated RBC % 0, ESR 54 H, Sodium 134, Potassium 3.6, Chloride 100, Carbon Dioxide 24.0, Anion Gap 10, BUN 9, Creatinine 0.80, Estim Creat Clear Calc 100.26, Est GFR (MDRD) Non-Af 84, BUN/Creatinine Ratio 11.5, Glucose 118 H, Lactic Acid 1.0, Calcium 9.5, Total Bilirubin 0.21, AST 22, ALT 14, Alkaline Phosphatase 182 H, C-React Prot Ext Range 187.00 H, Total Protein 7.7, Albumin 3.8, Globulin 3.9, Albumin/Globulin Ratio 1.0
[2025-02-21] MEDS: 0.9% Normal Saline (1000mL) 1,000 ML 100 ML IV (21:01)
--- NOTE | 2025-02-21 21:24 | ART_ITS ---
Reason For Study Reason For Study: Ulcer Procedure A bilateral lower extremity continuous wave Doppler with analog waveform analysis,segmental pressures,and ankle brachial indexes without exercise. Left Segmental Pressures Left brachial= 137mmHg. Left posterior tibial artery = 152mmHg. Left dorsalis pedis artery = 140mmHg. Left digit = 135 mmHg. The left dorsalis pedis waveforms are triphasic. The left posterior tibial artery waveforms are triphasic. Right Segmental Pressures Right posterior tibial artery = 158mmHg. Right dorsalis pedis artery = 153mmHg. The right dorsalis pedis waveforms are triphasic. The right posterior tibial artery waveforms are triphasic. Indices The right ankle brachial index by the dorsalis pedis is 1.12. The right ankle brachial index by the posterior tibial artery is 1.15. The left ankle brachial index by the dorsalis pedis is 1.02. The left ankle brachial index by the posterior tibial artery is 1.11. The left digital-brachial index is 0.99. VL/Lower Ext Art Exam w/o Exercis Interpretation Summary Right CEDRICK 1.15, normal. Doppler/PVR waveforms of the right leg normal at rest. Left CEDRICK 1.11, normal. TBI and Doppler/PVR waveforms of the left leg normal at rest. Ordering Physician: Akin Underwood Referring Physician: Elmira Brownlee Performed By: Sneha Smith RVT
--- NOTE | 2025-02-21 22:00 | RAD_ITS ---
EXAM: XR Right Foot Complete, 3 or More Views CLINICAL INDICATION: INFECTION 1ST AND 2ND TOES TECHNIQUE: Frontal, lateral and oblique views of the right foot. COMPARISON: XR Foot dated 02/19/25 FINDINGS: BONES/JOINTS: Probable subluxation of the 2nd metatarsophalangeal joint. SOFT TISSUES: Erosive changes of the head of the 1st metatarsal with soft tissue swelling. Subtle haziness of the base of the metatarsal from 1-5. Haziness of the navicular, best visualized on the lateral view. Osteomyelitis can not be excluded. Soft tissue swelling. No radiopaque foreign body. RAD/Foot min 3 Views IMPRESSION: Erosive changes of the head of the 1st metatarsal with soft tissue swelling. S ubtle haziness of the base of the metatarsal from 1-5. Haziness of the navicular, best visualized on the lateral view. Osteomye litis can not be excluded. Reading Location: [id number]
--- NOTE | 2025-02-21 22:00 | RAD_ITS ---
EXAM: XR Left Foot Complete, 3 or More Views CLINICAL INDICATION: CHRONIC WOUND HEEL TECHNIQUE: Frontal, lateral and oblique views of the left foot. COMPARISON: No relevant prior studies available. FINDINGS: BONES/JOINTS: Haziness of the head of the 4th proximal phalanx and 5th metatarsal. Osteomyelitis can not be excluded. No acute fracture. No dislocation. SOFT TISSUES: Unremarkable. No radiopaque foreign body. RAD/Foot min 3 Views IMPRESSION: Haziness of the head of the 4th proximal phalanx and 5th metatarsal. Osteomyel itis can not be excluded. Reading Location: [id number]
[2025-02-21] MEDS: Vancomycin HCl 1,500 MG in 0.9% Normal Saline (500mL Bag) 500 ML 250 MG IV (22:29)
[2025-02-21] MEDS: cycloBENZAPRine HCl 10 MG Tablet PO (22:31)
[2025-02-21] MEDS: Zolpidem Tartrate 5 MG Tablet PO (22:31)
[2025-02-21] MEDS: Gabapentin 300 MG Capsule PO (22:31)
[2025-02-21] MEDS: Neomycin/Bacitracin/Polymyxin Ointment 1 APPLIC TOPICAL (22:32)
[2025-02-22] VITALS (15 sets, daily range): BP systolic 115–140; BP diastolic 65–101; PULSE 82–106; RESP 16–18; TEMP 36.3–36.8; O2SAT 92–97; BMI 37.7
[2025-02-22] MEDS: Acetaminophen 325 MG Tablet 650 MG PO ×3 (02:23→19:47)
[2025-02-22] MEDS: Piperacil/Tazobactam 3.375 GM in 0.9% Normal Saline (50mL MB+) 50 ML IV ×3 (05:04→22:06)
[2025-02-22 05:15] LABS: Absolute Lymphocyte Count 1.45 X10^3/uL (0.83-4.51); Absolute Neutrophil Count 5.6 X10^3/uL (2.0-7.7); Basophil# 0.06 X10^3/uL; Basophil% 0.7 % (0-1); Eosinophils% 4.8 % (0-5); Hematocrit 29.3 % (37-47); Hemoglobin 9.7 g/dL (12.0-15.0); Lymphocyte # 1.45 X10^3/ul (0.83-4.51); Lymphocyte % 17.3 % (19-41); Mean Corp Hgb Conc 33.1 g/dL (32-36); Mean Corpuscular Hgb 28.4 pg (27.0-32.0); Mean Corpuscular Volume 85.9 fL (81-99); Mean Platelet Vol. 8.6 fl (6.2-12.0); Monocyte# 0.83 X10^3/uL; Monocyte% 9.9 % (0-10); NRBC Flagged by Analyzer 0 % (0-5); Neutrophil # 5.59 X10^3/uL (2.7-7.7); Neutrophil % 66.8 % (47-70); Platelet Count 354 K/mm3 (150-450); RBC Distribution Width CV 13.3 % (11.6-14.6); RBC Distribution Width SD 41.8 fl (35.1-43.9); Red Blood Count 3.41 M/mm3 (4.2-5.4); White Blood Count 8.4 K/mm3 (4.4-11.0)
[2025-02-22 06:00] LABS: AST(SGOT) 19 U/L (<=31); Alanine Aminotransfer ALT/SGPT 14 U/L (<=34); Albumin, Serum 3.2 g/dL (3.5-5.0); Alkaline Phosphatase 162 U/L (35-104); Anion Gap 10 (5-15); BUN 8 mg/dL (4-19); BUN/Creat Ratio 10.5 RATIO (10-20); Calcium,Total 8.6 mg/dL (7.6-11.0); Carbon Dioxide 20.7 mmol/L (21.0-32.0); Chloride 107 mmol/L (98-108); Creatinine, Serum 0.71 mg/dL (0.70-1.20); EST Glomerular Filtration Rate 97 (>60); Estimated Creatinine Clearance 112.24 ml/min (50-250); Globulin 3.2 g/dL (2.2-4.2); Glucose 121 mg/dL (70-99); Potassium 3.6 mmol/L (3.3-5.1); Protein, Total 6.4 g/dL (5.9-8.4); Sodium Level 138 mmol/L (133-145); Total Bilirubin 0.23 mg/dL (0.00-1.30)
[2025-02-22] MEDS: Neomycin/Bacitracin/Polymyxin Ointment 1 APPLIC TOPICAL ×3 (06:22→22:07)
[2025-02-22] MEDS: Vancomycin HCl 1,500 MG in 0.9% Normal Saline (500mL Bag) 500 ML 250 MG IV (06:44)
--- NOTE | 2025-02-22 08:12 | PCM.PRE.AN2 ---
ASA Classification* ASA Classification ASA Classification: 3 and E Assessment & Plan Anesthesia* Anesthesia Assessment Anesthesia Assessment: Discussed sedation and/or anesthesia options, risks, benefits, and alternatives with patient/parents/legal guardian/POA. Questions invited. The patient/parents/legal guardian/POA seems to understand and agrees to proceed with anesthesia plan. Reviewed the physical assessment, medical history, allergy history and patient home medications list prior to surgery/procedure/anesthetic and documented any changes. Performed airway and anesthesia risk assessments. Anesthesia Type Anesthesia Type: General (LMA) Anesthesia Focused Assessment* Temperature: 97.3 F Pulse Rate: 98 Blood Pressure: 131/74 Respiratory Rate: 16 Pulse Ox: 93 Airway Assessment Mouth opens: >3 cm Mallampati Score: II Focused Labs Anesthesia Preop lab: CBC WBC 8.4 K/mm3 (4.4-11.0) 02/22/25 04:53 02/22/25 RBC 3.41 M/mm3 (4.2-5.4) L 02/22/25 04:53 02/22/25 Hgb 9.7 g/dL (12.0-15.0) L 02/22/25 04:53 02/22/25 Hct 29.3 % (37-47) L 02/22/25 04:53 02/22/25 Plt Count 354 K/mm3 (150-450) 02/22/25 04:53 02/22/25 CHEMISTRY Potassium 3.6 mmol/L (3.3-5.1) 02/22/25 04:53 02/22/25 Sodium 138 mmol/L (133-145) 02/22/25 04:53 02/22/25 BUN 8 mg/dL (4-19) 02/22/25 04:53 02/22/25 Creatinine 0.71 mg/dL (0.70-1.20) 02/22/25 04:53 02/22/25 Glucose 121 mg/dL (70-99) H 02/22/25 04:53 02/22/25 COAG PT 14.2 SECONDS (11.7-14.9) 03/30/23 13:40 03/30/23 Pre-Assessment Diagnosis/Proposed Procedure Planned Operative Procedure(s): rIGHT TOE AMPUTATION Anesthesia History Anesthesia History - manager of internal: Anesthesia History - manager of internal Hx Hospitalization No 11/02/23 09:04 Any Problems With Anesthesia No 02/21/25 21:03 Cholinesterase deficiency No 02/21/25 21:03 You/Your Family Experience No 02/21/25 21:03 fever (hyperthermia) with Relationship Recent Exposure to Contagious No 02/21/25 21:03 Disease Does patient have nerve No 02/21/25 21:03 stimulator Patient instructed to have No 02/21/25 21:03 device shut off --Does patient have Pacemaker No 02/22/25 04:38 or ICD? When Was Last Pacemaker Check QUESTION #4 FULL TEXT: You/Your Family Experience fever (hyperthermia) with Anesthesia Last Oral Intake Last Oral intake: Last Oral Intake NPO since 00:00 02/22/25 04:38 Meds taken in AM with sips of No 02/22/25 04:38 water? Meds patient instructed to take am of surgery PONV PONV - manager of internal: PONV - manager of internal Female HX of Motion Sickness HX of N/V After Surgery Non-Smoker Duration of Surgery greater than 60 minutes Number of Risk Factors PONV Score Height & Weight Height & Weight: Anesthesia: Height & Weight Height 5 ft 8 in 02/22/25 04:38 Weight: 112.5 kg 02/22/25 04:38 Body Mass Index (BMI) 37.7 02/22/25 04:38 Respiratory Assessment Respiratory Assessment - manager of internal: Respiratory Tract Infection Hx - manager of internal Hx Respiratory Tract Infection No 02/21/25 21:03 STOP Sleep Apnea STOP Sleep Apnea - manager of internal: STOP Sleep Apnea - manager of internal Hx Hypertension No 02/21/25 19:12 Hx Sleep Apnea Yes 02/21/25 19:12 CPAP Yes: NONCOMPLIANT 02/21/25 19:12 BIPAP No 02/21/25 19:12 Do you snore loudly (louder than talking or can be heard Do you often feel tired/ fatigued/ sleepy during daytime? Has anyone observed you stop breathing during sleep? STOP Results Positive 02/21/25 19:12 QUESTION #5 FULL TEXT : Do you snore loudly (louder than talking or can be heard through closed doors)? 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 confused, unrespo /Reproduction History /Reproductive History - manager of internal: /Reproductive Hx- manager of internal Hx Now No 02/21/25 21:03 Gestational Age (in weeks): EDC: Hx Hx Para Hx Section SAB No 02/21/25 21:03 Active Medications Active Medications: Current Medications Generic Name Dose Route Start Last Admin Trade Name Freq PRN Reason Stop Dose Admin Acetaminophen 650 mg 02/21/25 19:36 02/22/25 02:23 Acetaminophen 325 Mg Tablet PO 650 mg Q4H PRN PRN Administration Fever, pain 1-10/10 Al Hydroxide/Mg Hydroxide 30 ml 02/21/25 19:36 Mag Hydrox/Al Hydrox/Simeth 30 Ml Udc PO Q6H PRN PRN Gastric Burning Albuterol Sulfate 2.5 mg 02/21/25 19:36 Albuterol 2.5 Mg/3 Ml Vial.Neb. INHALATION Q2H PRN PRN Dyspnea, wheezing Cyclobenzaprine HCl 10 mg 02/21/25 22:00 02/21/25 22:31 Cyclobenzaprine Hcl 10 Mg Tablet PO 10 mg TID PRN PRN Administration MUSCLE SPASMS Duloxetine HCl 120 mg 02/22/25 10:00 Duloxetine Hcl 60 Mg Capsule PO DAILY CALI Estradiol 1 mg 02/22/25 10:00 Estradiol 1 Mg Tablet PO DAILY CALI Gabapentin 300 mg 02/21/25 22:00 02/21/25 22:31 Gabapentin 300 Mg Capsule PO 300 mg BID CALI Administration Guaifenesin 20 ml 02/21/25 19:36 Guaifenesin 10 Ml Udc (200mg/10ml) PO Q4H PRN PRN COUGH Hydralazine HCl 10 mg 02/21/25 19:36 Hydralazine 20 Mg/Ml Vial IV Q4H PRN PRN SBP > 160 Protocol Hydroxyzine Pamoate 25 - 50 mg 02/21/25 19:36 Hydroxyzine Maryan 25 Mg Capsule PO TID PRN PRN anxiety Sodium Chloride 250 mls @ 15 mls/hr 02/21/25 19:16 IV .[id number] PRN Saline Flush Sodium Chloride 250 mls @ 15 mls/hr 02/21/25 19:16 IV .[id number] PRN Additional IVPB Infusion Sodium Chloride 1,000 mls @ 100 mls/hr 02/21/25 23:55 02/22/25 06:44 IV 02/22/25 09:54 0 mls/hr .Q10H CALI Infusion Piperacillin Sod/Tazobactam 50 mls @ 12.5 mls/hr 02/21/25 22:00 02/22/25 05:04 Sod 3.375 gm/ Sodium Chloride IV 12.5 mls/hr Q8 CALI Administration Vancomycin IV-PHARMACY TO DOSE 500 mls @ 250 mls/hr 02/21/25 19:36 1 each/ Sodium Chloride IV X1 PRN Rx to Dose Protocol Vancomycin HCl 1,500 mg/ 530 mls @ 250 mls/hr 02/21/25 23:30 02/22/25 06:44 Sodium Chloride IV 250 mls/hr Q8H CALI Administration Lorazepam 1 mg 02/21/25 19:36 Lorazepam 1 Mg Tablet PO DAILY PRN PRN Anxiety Melatonin 3 mg 02/21/25 19:36 Melatonin 3 Mg Tablet PO QHS PRN PRN INSOMNIA Neomycin/Polymyxin/Bacitracin 1 applic 02/21/25 22:00 02/22/25 06:22 Neomycin/Bacitracin/Polymyxin Ointment TOPICAL 1 applic TID CALI Administration Protocol Ondansetron HCl 4 mg 02/21/25 19:36 Ondansetron 4 Mg/2 Ml Vial IV Q8H PRN PRN NAUSEA/VOMITING Prochlorperazine Edisylate 5 mg 02/21/25 19:36 Prochlorperazine 10 Mg/2 Ml Vial IV Q4H PRN PRN Breakthrough nausea/vomiting Senna/Docusate Sodium 2 tablet 02/21/25 19:36 Senna/Docusate Sodium 1 Tablet PO BID PRN PRN Constipation Sodium Chloride 10 - 40 ml 02/21/25 19:16 0.9% Saline Lock 10 Ml Syringe IV UD PRN SALINE FLUSH Vancomycin Protocol 1 lab 02/22/25 14:00 Vancomycin Trough/Random Due MC 02/22/25 16:00 DAILY CALI Zolpidem Tartrate 5 mg 02/21/25 22:00 02/21/25 22:31 Zolpidem Tartrate 5 Mg Tablet PO 5 mg QHS CALI Administration PFSH Medical History Sleep apnea Anxiety Depression Rheumatoid arthritis Migraines Amputation of toe of left foot Wears contact lenses Wears glasses Connective tissue disease Walker as ambulation aid Ambulates with cane Arthritis History of IBS Heartburn Non-smoker CPAP (continuous positive airway pressure) dependence Fibromyalgia Sjogren syndrome with dental involvement Sjogren syndrome with keratoconjunctivitis Sjogren syndrome with peripheral nervous system involvement Lupus Home Medications ?Medication ?Instructions ?Recorded ?Last Taken ?Type cyclobenzaprine 10 mg tablet 10 mg PO TID PRN MUSCLE SPASMS 04/15/20 11/09/23 History duloxetine 60 mg capsule,delayed 120 mg PO DAILY 04/15/20 11/09/23 History release estradiol 1 mg tablet 1 mg PO DAILY 04/15/20 11/09/23 History gabapentin 300 mg capsule 300 mg PO BID 04/15/20 11/09/23 History hydroxychloroquine 200 mg tablet 200 mg PO BID 04/15/20 11/09/23 History lorazepam 1 mg tablet 1 mg PO DAILY PRN Anxiety 04/15/20 11/10/23 History zolpidem 10 mg tablet 10 mg PO QHS 04/15/20 11/09/23 History hydroxyzine HCl 25 mg tablet 12.5 - 50 mg PO TID PRN PRN anxiety 02/21/25 Unknown History sulfamethoxazole 800 1 tab PO BID 02/21/25 Unknown History mg-trimethoprim 160 mg tablet sulfasalazine 500 mg 500 mg PO TID 02/21/25 Unknown History tablet,delayed release Allergy/AdvReac Type Severity Reaction Status Date / Time Gadolinium-MRI Contrast Allergy Intermediate Hives Verified 02/21/25 13:47 Medium (CONTRAST) Iodinated Contrast Media (CT) Allergy Rash Verified 02/21/25 13:47 morphine Allergy Hives Verified 02/21/25 13:47 sertraline (From Zoloft) Allergy Swelling Verified 02/21/25 13:47 Family History Father Pseudocholinesterase deficiency Prostate cancer Mother CAD (coronary artery disease) Heart disease Hypertension Breast cancer Lupus Surgical History H/O wisdom tooth extraction H/O tubal ligation History of hysterectomy Hx of cholecystectomy Hx of Achilles tendon repair Social History household members: spouse Smoking Status: Never smoker alcohol intake: never substance use type: does not use Review of Systems (Anesthesia) ROS Narrative System reviewed and no additional complaints, except as documented.
--- NOTE | 2025-02-22 08:15 | BON_PTH ---
PATIENT: CHAPO PEREZ LOC: [facility] U#:[id number] AGE/SX: 59/F ROOM: OR318 RE02/21/[address]: Dr. Andrez Moralez MD : 1965 BED: 1 DIS: 02/25/2025 SPEC #: [id number] RECD: 02/24/25 07:33 STATUS: MARLA BROWNJohan #: [id number] SILVER: 02/22/25 08:[address]: Akin Underwood DEPT: SURGICAL PATHOLOGY RECD BY: Alis Rodríguez ENTERED: 02/24/25 08:21 SP TYPE: Bone OTHR DR: MD Dr. Andrez Mahmood MD Dr. Robert Leininger, MD Rachel Edgar, TEST TECH-C Tissues: A - Bone of foot, NOS B - Bone of foot, NOS C - TISSUE SURGICALLY REMOVED Procedures: Decalcification bone/plaque Surgery Specimen Level III Surgery Specimen Level IV HEADER OPERATION: Right foot debridement of all infected, nonviable PRE-OP DIAGNOSIS: Cellulitis of right lower limb, non-pressure chronic ulcer of other part of right foot with necrosis of bone, xerosis cutis, acquired bilateral hammer toes TISSUE SUBMITTED: A- Right 2nd toe, B- Clearance fragment of right 2nd toe, C- Debrided tissue right first toe and metatarsal MICROSCOPIC DIAGNOSIS A. Right foot, second toe, amputation: * Cutaneous ulcer, chronic osteomyelitis. * Separate bone fragment with reactive/degenerative changes. B. Right foot, second toe, clearance fragment, excision: * Viable trabecular bone with scant attached fibrous tissue, negative for significant inflammation. C. Right foot, first toe and metatarsal, excision: * Soft tissue with active chronic inflammation and fibrinoid necrosis. * Trabecular bone with suppurative osteomyelitis. MICROSCOPIC DESCRIPTION Slides are reviewed. GROSS DESCRIPTION A. Received in formalin in a container labeled with the patient's name, date of , and second toe R is a 2.6 x 2.2 x 1.8 cm fragment of white-hernández skin and shaggy bone, consistent with partial toe. The soft tissue resection margin appears grossly viable. The bone margin is shaggy and firm. The epidermis is notable for a 1.3 x 0.8 cm hernández-brown, ulcerated wound situated 0.4 cm from the closest soft tissue resection margin (inked green). Sectioning reveals that the wound appears to extend 0.1 cm deep but does not extend to the soft tissue margin. The underlying bone is firm. Received in the same container is a 1.2 x 0.6 x 0.4 cm fragment of firm bone which exhibits a smooth and firm resection margin and an opposing disarticulated surface. Sectioning reveals firm and unremarkable surfaces. Director Of Labor Relations sections:A1. Cross-sections of toe with wound and underlying bone following decalcificationA2. Separate fragment of bone following decalcification (entirely submitted) B. Received in formalin in a container labeled with the patient's name, date of , and clearance fragment R second toe are 3 white-hernández, small fragments of firm bone each measuring 0.3 x 0.2 x 0.2 cm. Submitted entirely in B1 following decalcification. C. Debrided tissue R first toe and metatarsal are multiple hernández-irvin, irregular fragments of bone and soft tissue measuring 4.6 x 4.0 x 1.7 cm in aggregate. There are white-hernández fragments of possible skin. No orientation is able to be determined. Sectioning of the soft tissue reveals uniform and rubbery hernández surfaces. Sectioning of the bone reveals firm hernández surfaces. Director Of Labor Relations sections:C1. Sampled soft tissueC2. Sampled bone following decalcification [facility] 02-24-2025 CPT:54275,[id number]
[2025-02-22] MEDS: Bupivacaine Mpf 0.5% 30 ML VIAL (09:14)
--- NOTE | 2025-02-22 09:30 | CASEMGMT ---
ENO[facility] CM to complete assessment, pt is off of the floor at this time.
--- NOTE | 2025-02-22 09:30 | NURSING ---
pt off floor for surgery @ 0800
--- NOTE | 2025-02-22 09:32 | OP.PCM_ITS ---
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 Amputated part of right 2nd toe sent to pathology 2. Peters culture of distal phalanx right 2nd toe sent to microbiology 3. Clearance fragment of right 2nd toe sent to pathology and microbiology 4. Debrided right 1st toe and 1st metatarsal sent to pathology 5. Bone culture right 1st toe and metatarsal sent to microbiology Description of surgery: Indications: 59 year old female presented with right foot infection, noted to have edema to foot with erythema to right 1st toe and metatarsal as well as to distal right 2nd toe. She has a draining ulceration plantar base of right 1st toe, also ulceration to the distal tip of the right 2nd toe. MRI and xrays obtained and reviewed. Findings consistent with osteomyelitis right distal 2nd toe and also to 1st metatarsal and 1st toe with abscess formation. Culture from draining ulceration right 1st toe / metatarsal + MRSA. Symptoms have been worsening, she has been admitted for further management. Discussed the procedures with her in detail, and given the infection she elected to proceed forward with the procedures. Discussed possible benefits vs risks, goals, expectations as well. Advised the risks include but not limited to further infection, pain, drainage, nonhealing, delayed healing, need for further surgery, blood clots, loss of function, deformity, loss of limb, loss of life. She expressed understanding and agreement. Alternative options were given (just antibiotics alone, or no treatment at all). She was given multiple opportunities to ask questions and all of her questions were answered to her satisfaction. The consent form was reviewed with her and she freely signed it. No guarantees or warranties were given. Operative Procedure: The patient was brought back to the operating room and was placed on the operating room table in the supine position, carefully secured to the operating room table with a safety belt. The patient was already on IV antibiotic therapy - Vancomycin and Zosyn. A well padded pneumatic tourniquet was applied around the patient's right ankle. The patient received MAC anesthesia per the anesthesiologist Dr. Carrero. The skin of the 1st and 2nd ray right foot was cleansed using 70% Isopropyl alcohol and then a nerve block was completed to the 1st and 2nd rays of the right foot using a total of 10mL of 0.5% Bupivacaine plain. The patient's right foot was scrubbed, prepped, and draped in the usual aseptic fashion. Further attention was directed to the patient's right foot and findings as noted above were confirmed consistent with significant infection of the right 1st toe/metatarsal as well as to the distal right 2nd toe. There was erythema present and edema. There was drainage of purulent fluid from the ulceration sub 1st toe/metatarsal and the ulcer probed to bone, the 1st toe was dorsally contracted as she also has had previous surgery and infection to that site. The right 2nd toe was severely hammered and deformed. The ulceration at the tip of the right 2nd toe was down to bone but was dry. The patient's right foot was elevated for several minutes and the right ankle pneumatic tourniquet was inflated to 250mmHg. Right 2nd toe partial amputation: A incision was made around the distal interphalangeal joint of the toe using a 15 blade creating a flap for closure. The incision was extended down to bone and the toe was disarticulated at the distal interphalangeal joint. The bone of the distal phalanx was noted to be very soft and nonviable consistent with infection. The bone of the middle phalanx of the toe was noted to be hard, white and did not appear infected looking at it. The head of the middle phalanx was excised using a powered sagittal saw and a clearance fragment was obtained from the middle phalanx and sent to microbiology and pathology. The flexor and extensor tendons of the toe were extremely contracted significant contributing to the deformity. The flexor and extensor tendons of the toe were released using a 15 blade. The toe was in much improved position. The remaining tissues were noted to be healthy and viable at the site. The site was flushed with copious amounts of normal saline solution. The site was closed, closing the skin and was reapproximated using 3-0 Prolene. Right 1st toe/1st metatarsal debridement: The ulceration on the plantar 1st toe/metatarsal was visualized, there was nonviable and infected subcutaneous tissue, fascia and bone of the base of the 1st toe proximal phalanx and distal end of the 1st metatarsal. The ulceration was debrided down to bone in excisional fashion using a combination of 15 blade as well as a powered sagittal saw. The distal 1st metatarsal and base of the 1st toe proximal phalanx was excised using the powered sagittal saw. An incision was made to the dorsal aspect of the 1st toe and 1st metatarsal using a 15 blade to gain further access to the infection and nonviable and necrotic tissue. There was an abscess to the site which was drained and excised using a 15 blade. The debrided tissue was sent to pathology and a culture of bone from the 1st metatarsal and proximal ph alanx 1st toe was obtained and sent to microbiology. The area debrided measured 2cm x 5cm and down to and including bone as noted above. The remaining tissues were noted to be healthy and viable at the site. The site was flushed with copious amounts of normal saline solution. The dorsal incision site was closed reapproximating the skin using 3-0 Prolene. The plantar aspect was packed with Betadine soaked gauze. The pneumatic tourniquet was deflated (total time was 43 minutes). There was immediate return of flow to the foot, CFT < 2 seconds to all toes. A dressing was applied which consisted of 4x4 gauze, kerlix, abd pad, and trang dressing. The patient tolerated the above procedures well and anesthesia well with no complications. The patient was transported from the operating room to the ecovery room with vital signs stable and in good condition. Post operative orders were placed. Patient will be followed as an inpatient. Surgical Findings: As noted above Complications Complications: No
--- NOTE | 2025-02-22 09:40 | RAD_ITS ---
EXAM: XR Right Foot Complete, 3 or More Views CLINICAL INDICATION: POST OP TECHNIQUE: Frontal, lateral and oblique views of the right foot. COMPARISON: XR Foot dated 02/21/2025 FINDINGS: BONES/JOINTS: Amputation of the distal 1st metatarsal. Soft tissue swelling and emphysema. Probable subluxation at the 2nd metatarsophalangeal joint. Amputation of the distal 2nd phalanx. No acute fracture. SOFT TISSUES: See above. RAD/Foot min 3 Views IMPRESSION: Postoperative changes as above. Reading Location: [id number]
--- NOTE | 2025-02-22 09:57 | PN.HOSP_ITS ---
Subjective Subjective No issues overnight, pain is controlled Objective Data Objective Data Vital Signs: Vital Signs Temp Pulse Resp BP Pulse Ox O2 Del Method O2 Flow Rate 98.1 F 106 H 16 140/101 H 92 Nasal Cannula 2 02/22/25 09:35 02/22/25 09:40 02/22/25 09:40 02/22/25 09:40 02/22/25 09:40 02/22/25 09:40 02/22/25 09:40 Oxygen Flow Rate (L/min) 2 Oxygen Delivery Method Nasal Cannula Weight: 248 lb 0.321 oz Body Mass Index (BMI) 37.7 Intake & Output: Intake and Output for Last 24 Hours 02/21/25 02/22/25 02/23/25 03:59 03:59 03:59 Intake Total 2511.67 / 2511.67 1291.67 / 1291.67 Balance 2511.67 / 2511.67 1291.67 / 1291.67 Lab / Micro Data 02/22/25 04:53 02/22/25 04:53 Labs: Laboratory Results - last 24 hr 02/21/25 14:21: WBC 9.3, RBC 3.91 L, Hgb 11.1 L, Hct 33.4 L, MCV 85.4, MCH 28.4, MCHC 33.2, RDW Std Deviation 41.1, RDW Coeff of Jennifer 13.2, Plt Count 390, MPV 9.3, Immature Gran % (Auto) 0.300, Neut % (Auto) 69.0, Lymph % (Auto) 15.3 L, M kristin % (Auto) 11.7 H, Eos % (Auto) 3.2, Baso % (Auto) 0.5, Absolute Neuts (auto) 6.4, Absolute Lymphs (auto) 1.43, Nucleated RBC % 0, ESR 54 H, Sodium 134, Potassium 3.6, Chloride 100, Carbon Dioxide 24.0, Anion Gap 10, BUN 9, Creatinine 0.80, Estim Creat Clear Calc 100.26, Est GFR (MDRD) Non-Af 84, BUN/Creatinine Ratio 11.5, Glucose 118 H, Lactic Acid 1.0, Calcium 9.5, Total Bilirubin 0.21, AST 22, ALT 14, Alkaline Phosphatase 182 H, C-React Prot Ext Range 187.00 H, Total Protein 7.7, Albumin 3.8, Globulin 3.9, Albumin/Globulin Ratio 1.0 02/22/25 04:53: WBC 8.4, RBC 3.41 L, Hgb 9.7 L, Hct 29.3 L, MCV 85.9, MCH 28.4, MCHC 33.1, RDW Std Deviation 41.8, RDW Coeff of Jennifer 13.3, Plt Count 354, MPV 8.6, Immature Gran % (Auto) 0.500, Neut % (Auto) 66.8, Lymph % (Auto) 17.3 L, Caldwell % (Auto) 9.9, Eos % (Auto) 4.8, Baso % (Auto) 0.7, Absolute Neuts (auto) 5.6, Absolute Lymphs (auto) 1.45, Nucleated RBC % 0, Sodium 138, Potassium 3.6, Chloride 107, Carbon Dioxide 20.7 L, Anion Gap 10, BUN 8, Creatinine 0.71, Estim Creat Clear Calc 112.24, Est GFR (MDRD) Non-Af 97, BUN/Creatinine Ratio 10.5, G lucose 121 H, Calcium 8.6, Total Bilirubin 0.23, AST 19, ALT 14, Alkaline Phosphatase 162 H, Total Protein 6.4, Albumin 3.2 L, Globulin 3.2, Albumin/Globulin Ratio 1.0 Radiography Diagnostic Testing: Radiology Impression Foot X-Ray 02/21/25 22:00 IMPRESSION: Erosive changes of the head of the 1st metatarsal with soft tissue swelling. Subtle haziness of the base of the metatarsal from 1-5. Haziness of the navicular, best visualized on the lateral view. Osteomyelitis can not be excluded. Reading Location: [facility] Foot X-Ray 02/21/25 22:00 IMPRESSION: Haziness of the head of the 4th proximal phalanx and 5th metatarsal. Osteomyelitis can not be excluded. Reading Location: [facility] Physical Exam Narrative General: Alert, Oriented x3, Cooperative, No apparent distress HEENT: Atraumatic, PERRLA, EOMI, Normocephalic Oral: Moist Mucosa Neck: Supple, No JVD Lungs: Diminished, Normal air movement, No rhonchi, No wheeze, No rales Cardiovascular: Regular rate, Regular Rhythm, Normal S1, Normal S2, No murmurs Abdomen: Soft, Non Tender, Non-Distended, No Hepato-splenomegaly Extremities: No edema, Capillary Refill Less than 3 Seconds Skin: Right lower extremity is dressed Musculoskeletal: No Tenderness to Palpation of Joints or Extremities Neurological: No focal neurological deficits, Motor Exam 5/5 strength throughout, Sensory exam intact to light touch and pain Psych/Mental Status: Normal Affect, Appropriate Assessment & Plan Assessment/Plan (1) Cellulitis of right lower limb: PLAN: Plan 1. Acute right foot osteomyelitis with possible midfoot septic arthritis in the setting of lupus and Sjogren's ? She states that she has multiple issues because of her autoimmune disease with recurrent infections in her right foot ? Appreciate podiatry's assistance, plan for operative intervention today ? Will await surgical cultures ? Will continue with broad-spectrum empiric antibiotics ? Will await infectious disease consultation 2. Sjogren/lupus ? Continue with her hydroxychloroquine after surgery to maintain control ? It does not appear that she is taking her sulfasalazine 3. Anxiety/depression ? Stable ? Can resume her home medications DVT: SCDs Charges/Coding Visit Charges Inpatient E&M: 08599 Subs Hosp L2
--- NOTE | 2025-02-22 10:24 | PCM.POST.ANE ---
Anesthesia: Postop Eval I Current Vital Signs Temperature: 98.1 F Pulse Rate: 106 Blood Pressure: 140/96 Respiratory Rate: 16 Pulse Ox: 92 Assessment Airway patent: Yes Spontaneous unlabored respirations: Yes nausea: No Vomiting: No Anesthesia Complication: No Fluid Hydration Crystalloid volume administer (ml): 1,000 Total IV fluid infused: 1,000 Progress Note Anesthesia document: Postop Eval 1 completed: No
--- NOTE | 2025-02-22 10:25 | PCM.POSTANE2 ---
Anesthesia Postop Eval I Sum Postop Eval Completion status Anesthesia document: Postop Eval 1 completed: No Anesthesia Postop Eval I Summary Anesthesia Postop Eval I Summary: Anesthesia Postop Eval I: Assessment Summary Airway patent Yes 02/22/25 10:24 Spontaneous unlabored Yes 02/22/25 10:24 respirations Mental status nausea No 02/22/25 10:24 Vomiting No 02/22/25 10:24 Anesthesia Postop Eval I: Fluid Summary Crystalloid volume administer 1,000 02/22/25 10:24 (ml) Colloids volume administered ( ml) Blood Product volume administered (ml) Total IV fluid infused 1,000 02/22/25 10:24 Anesthesia Postop Eval I: Summary Notes Anesthesia Complication No 02/22/25 10:24 Anesthesia Complication Comment: Post-operative progress note Anesthesia: Postop Eval II Evaluation Mental status: Awake Pain Level: 0 nausea: No Vomiting: No
--- NOTE | 2025-02-22 12:37 | CASEMGMT ---
ENOCH ARMSTRONG Assessment: Face to Face with pt for initial transition planning/care coordination assessment. RN CM introduced self and role at [facility], pt voices understanding and consents to assessment. Pt is A&O x4 and answers all questions appropriately at this time. Pt lying in bed in no distress. Care providers, pharmacy, and demographics verified/updated. Admitting Dx: acute osteomyelitis R foot PCP:Kem Specialists: Santa, rheum; sarah Underwood Preferred Pharmacy: [facility] Pres[facility] Benefit: yes LNOK: Chidi Boles, Living Arrangements: Pt lives with in a two story home with FFSU and no steps to enter. Pt reports she was I in ADL/IADLs prior to hospitalization. Pt denies concerns at home. Transportation: Pt drives self and denies concerns with transportation. Pt can transport pt until she can drive again. DME:cane, walker, CPAP- don't use HHC/SNF: [facility] HHC in past, denies SNF stays. Pt states no concerns with going home at time of dc. Pt states she was doing wound care prior to this hospitalization and can continue. 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 Pt has been non wt bearing in the past and states she used a knee scooter. She plans to purchase another one. ENOCH CM to follow for ID, therapy and wound care. Pt states no further concerns/needs. CM to follow. Advised pt to ask CM if any further questions/concerns/needs arise, voices understanding. Pt Goal: Home, open to HH if she will need IV atb Plan: Home vs Home with HHC pending course of hospitalization Carmen KENDALL CM
[2025-02-22 15:31] LABS: Vancomycin, Trough Level 26.9 ug/mL (5.0-15.0)
--- NOTE | 2025-02-22 15:59 | PCM.RX.CS ---
Consult Antibiotic Management Pharmacy has been consulted to manage selected antibiotic: Vancomycin Type of Intervention Type of Consult: Follow-up Suspected Infection Suspected Infection: Skin/Soft tissue and Osteomyelitis Prior Doses of Antibiotics Prior Doses of Antibiotics Received/Current Regimen: current dose is 1500mg IV q8h Labs Labs: Sodium 138 mmol/L (133-145) 02/22/25 04:53 Potassium 3.6 mmol/L (3.3-5.1) 02/22/25 04:53 Chloride 107 mmol/L (98-108) 02/22/25 04:53 Carbon Dioxide 20.7 mmol/L (21.0-32.0) L 02/22/25 04:53 Anion Gap 10 (5-15) 02/22/25 04:53 BUN 8 mg/dL (4-19) 02/22/25 04:53 Creatinine 0.71 mg/dL (0.70-1.20) 02/22/25 04:53 Est GFR (MDRD) Non-Af 97 (>60) 02/22/25 04:53 BUN/Creatinine Ratio 10.5 RATIO (10-20) 02/22/25 04:53 Glucose 121 mg/dL (70-99) H 02/22/25 04:53 Vancomycin Trough 26.9 ug/mL (5.0-15.0) H 02/22/25 14:48 Dosing Weight Weight used for dosin lb 0.321 oz Estimated Creatinine Clearance Estimated Creatinine Clearance: 112ml/min Goal Trough Goal Trough: 15-20 mcg/mL Pharmacy Plan for Drug Dosing Pharmacy Plan for Drug Dosing: The vanc trough drawn at 14:48 today (approximately 8 hours after the previous dose) was 26.9 mcg/ml. This is above goal range so will hold current dose. Check a random level at midnight tonight to see if dosing can be resumed at that time. Pharmacy Service will continue to monitor and adjust dosing as required. Follow-Up Labs Follow-Up Labs: Trough: Vancomycin (random) Date/Time Labs Ordered Labs to be done on [date and time ordered]: 02/23/25 00:00
[2025-02-22] MEDS: cycloBENZAPRine HCl 10 MG Tablet PO (19:47)
[2025-02-22] MEDS: oxyCODONE 5 MG Tablet PO (20:56)
[2025-02-22] MEDS: Gabapentin 300 MG Capsule PO (20:56)
[2025-02-22] MEDS: Zolpidem Tartrate 5 MG Tablet PO (22:06)
[2025-02-23] MEDS: Vancomycin Trough/Random Due 1 LAB MC (00:06)
[2025-02-23] MEDS: Vancomycin IV 1,000 MG/200 ML BAG 200 MG IV ×3 (00:32→17:12)
--- NOTE | 2025-02-23 01:00 | PCM.RX.CS ---
Consult Antibiotic Management Pharmacy has been consulted to manage selected antibiotic: Vancomycin Type of Intervention Type of Consult: Follow-up Labs Labs: Sodium 138 mmol/L (133-145) 02/22/25 04:53 Potassium 3.6 mmol/L (3.3-5.1) 02/22/25 04:53 Chloride 107 mmol/L (98-108) 02/22/25 04:53 Carbon Dioxide 20.7 mmol/L (21.0-32.0) L 02/22/25 04:53 Anion Gap 10 (5-15) 02/22/25 04:53 BUN 8 mg/dL (4-19) 02/22/25 04:53 Creatinine 0.71 mg/dL (0.70-1.20) 02/22/25 04:53 Est GFR (MDRD) Non-Af 97 (>60) 02/22/25 04:53 BUN/Creatinine Ratio 10.5 RATIO (10-20) 02/22/25 04:53 Glucose 121 mg/dL (70-99) H 02/22/25 04:53 Vancomycin Trough 26.9 ug/mL (5.0-15.0) H 02/22/25 14:48 Random Vancomycin 12.0 ug/mL (0.0-15.0) 02/22/25 23:50 Goal Trough Goal Trough: 15-20 mcg/mL Pharmacy Plan for Drug Dosing Pharmacy Plan for Drug Dosing: Pharmacy Service will continue to monitor and adjust dosing as required. RANDOM LEVEL 12.0 @ 17 HOURS. START 1GM Q8H AND FOLLOW UP TROUGH PRIOR TO 4TH DOSE Follow-Up Labs Follow-Up Labs: Trough: Vancomycin Date/Time Labs Ordered Labs to be done on [date and time ordered]: 02/24 @ 0000
[2025-02-23 03:00] VITALS: BP 113/73; PULSE 91; RESP 18; TEMP 36.9; O2SAT 96
[2025-02-23] MEDS: Acetaminophen 325 MG Tablet 650 MG PO ×2 (03:04→14:13)
[2025-02-23] MEDS: oxyCODONE 5 MG Tablet PO ×2 (03:04→10:06)
[2025-02-23 05:37] LABS: Absolute Lymphocyte Count 2.01 X10^3/uL (0.83-4.51); Absolute Neutrophil Count 4.4 X10^3/uL (2.0-7.7); Basophil# 0.03 X10^3/uL; Basophil% 0.4 % (0-1); Eosinophil# 0.38 X10^3/uL; Hematocrit 29.4 % (37-47); Hemoglobin 9.5 g/dL (12.0-15.0); Lymphocyte # 2.01 X10^3/ul (0.83-4.51); Lymphocyte % 26.4 % (19-41); Mean Corp Hgb Conc 32.3 g/dL (32-36); Mean Corpuscular Hgb 28.4 pg (27.0-32.0); Mean Platelet Vol. 8.5 fl (6.2-12.0); Monocyte# 0.75 X10^3/uL; Monocyte% 9.9 % (0-10); NRBC Flagged by Analyzer 0 % (0-5); Neutrophil # 4.42 X10^3/uL (2.7-7.7); Platelet Count 343 K/mm3 (150-450); RBC Distribution Width CV 13.5 % (11.6-14.6); RBC Distribution Width SD 43.4 fl (35.1-43.9); Red Blood Count 3.34 M/mm3 (4.2-5.4); White Blood Count 7.6 K/mm3 (4.4-11.0)
[2025-02-23] MEDS: Piperacil/Tazobactam 3.375 GM in 0.9% Normal Saline (50mL MB+) 50 ML IV ×3 (06:13→22:19)
[2025-02-23] MEDS: Neomycin/Bacitracin/Polymyxin Ointment 1 APPLIC TOPICAL ×3 (06:13→22:20)
[2025-02-23 06:16] LABS: Anion Gap 10 (5-15); BUN 5 mg/dL (4-19); BUN/Creat Ratio 7.2 RATIO (10-20); Calcium,Total 8.5 mg/dL (7.6-11.0); Carbon Dioxide 21.6 mmol/L (21.0-32.0); Chloride 108 mmol/L (98-108); Creatinine, Serum 0.67 mg/dL (0.70-1.20); EST Glomerular Filtration Rate 101 (>60); Estimated Creatinine Clearance 118.95 ml/min (50-250); Glucose 98 mg/dL (70-99); Potassium 3.6 mmol/L (3.3-5.1); Sodium Level 140 mmol/L (133-145)
[2025-02-23] MEDS: Gabapentin 300 MG Capsule PO ×2 (07:58→22:18)
[2025-02-23] MEDS: Hydroxychloroquine 200 MG Tablet PO ×2 (07:58→17:12)
[2025-02-23] MEDS: DULoxetine Hcl 60 MG Capsule 120 MG PO (07:59)
[2025-02-23] MEDS: Estradiol 1 MG Tablet PO (07:59)
--- NOTE | 2025-02-23 09:24 | PN.HOSP_ITS ---
Subjective Subjective Had some pain overnight managed with the oxycodone. Objective Data Objective Data Vital Signs: Vital Signs Temp Pulse Resp BP Pulse Ox O2 Del Method O2 Flow Rate 98.4 F 91 18 113/73 96 Room Air 2 02/23/25 03:00 02/23/25 03:00 02/23/25 03:00 02/23/25 03:00 02/23/25 03:00 02/23/25 03:00 02/22/25 10:27 Oxygen Flow Rate (L/min) 2 Oxygen Delivery Method Room Air Weight: 248 lb 0.321 oz Body Mass Index (BMI) 37.7 Intake & Output: Intake and Output for Last 24 Hours 02/22/25 02/23/25 02/24/25 03:59 03:59 03:59 Intake Total 2511.67 / 2511.67 2591.67 / 2591.67 363.33 / 363.33 Output Total 1600 / 1600 1200 / 1200 Balance 2511.67 / 2511.67 991.67 / 991.67 -836.67 / -836.67 Lab / Micro Data 02/23/25 04:49 02/23/25 04:49 Labs: Laboratory Results - last 24 hr 02/22/25 14:48: Vancomycin Trough 26.9 H 02/22/25 23:50: Random Vancomycin 12.0 02/23/25 04:49: WBC 7.6, RBC 3.34 L, Hgb 9.5 L, Hct 29.4 L, MCV 88.0, MCH 28.4, MCHC 32.3, RDW Std Deviation 43.4, RDW Coeff of Jennifer 13.5, Plt Count 343, MPV 8.5, Immature Gran % (Auto) 0.300, Neut % (Auto) 58.0, Lymph % (Auto) 26.4, Tyler % (Auto) 9.9, Eos % (Auto) 5.0, Baso % (Auto) 0.4, Absolute Neuts (auto) 4.4, Absolute Lymphs (auto) 2.01, Nucleated RBC % 0, Sodium 140, Potassium 3.6, Chloride 108, Carbon Dioxide 21.6, Anion Gap 10, BUN 5, Creatinine 0.67 L, Estim Creat Clear Calc 118.95, Est GFR (MDRD) Non-Af 101, BUN/Creatinine Ratio 7.2 L, Glucose 98, Calcium 8.5 Radiography Diagnostic Testing: Radiology Impression Lower Extremity MRI 02/21/25 14:25 IMPRESSION: Prior amputation distal aspect of the 1st metatarsal and distal phalanx right 3rd toe. There is possible oblique minimally displaced fracture involving the distal phalanx of the right 5th toe, demonstrated on comparison right foot radiographs. Distal to the amputation site of the residual 1st metatarsal, there is a 2.9 x 1.9 x 0.5 cm curvilinear fluid collection which could represent an abscess versus postoperative seroma. There is diffuse edema of the soft tissues and subcutaneous fat of the right foot, which could be due to cellulitis. Moderate abnormal increased signal/marrow edema of the residual 1st metatarsal, as well as the proximal phalanx of the right 1st toe. These could be areas of reactive marrow edema or additional areas of osteomyelitis. Diffuse soft tissue swelling of the 2nd toe. A normal distal phalanx of the 2nd toe is not clearly demonstrated and may be eroded, possible osteomyelitis. Prior amputation distal phalanx of the 3rd toe. No focal abnormal marrow signal of the right 4th toe. There is abnormal marrow signal and heterogeneous morphology of the distal phalanx right 5th toe, which could be due to osteomyelitis/fracture. Moderately extensive degenerative changes of the right foot involving the tarsal bones, tarsal/metatarsal joints as well as the MTP and interphalangeal joints. There are scattered subcortical cystic foci of the tarsals and tarsometatarsal joints, which may be due to advanced degenerative joint disease. The extensive degenerative changes of the tarsal bones and tarsal/metatarsal joints could be due to developing Charcot/neuropathic joint. The proximal aspect of the proximal phalanx of the 2nd toe is subluxed lateral and superior to the metatarsal head. [facility] 02/22/25 09:40 IMPRESSION: Postoperative changes as above. Reading Location: [id number] Physical Exam Narrative General: Alert, Oriented x3, Cooperative, No apparent distress HEENT: Atraumatic, PERRLA, EOMI, Normocephalic Oral: Moist Mucosa Neck: Supple, No JVD Lungs: Diminished, Normal air movement, No rhonchi, No wheeze, No rales Cardiovascular: Regular rate, Regular Rhythm, Normal S1, Normal S2, No murmurs Abdomen: Soft, Non Tender, Non-Distended, No Hepato-splenomegaly Extremities: No edema, Capillary Refill Less than 3 Seconds Skin: Right lower extremity is dressed Musculoskeletal: No Tenderness to Palpation of Joints or Extremities Neurological: No focal neurological deficits, Motor Exam 5/5 strength throughout, Sensory exam intact to light touch and pain Psych/Mental Status: Normal Affect, Appropriate Assessment & Plan Assessment/Plan (1) Cellulitis of right lower limb: PLAN: Plan 1. Acute right foot osteomyelitis with possible midfoot septic arthritis in the setting of lupus and Sjogren's ? She states that she has multiple issues because of her autoimmune disease with recurrent infections in her right foot ? Appreciate podiatry's assistance, plan for operative intervention today ? Will await surgical cultures ? Will continue with broad-spectrum empiric antibiotics ? Will await infectious disease consultation 2. Sjogren/lupus ? Continue with her hydroxychloroquine after surgery to maintain control, can likely restart tomorrow ? It does not appear that she is taking her sulfasalazine 3. Anxiety/depression ? Stable ? Can resume her home medications DVT: SCDs Charges/Coding Visit Charges Inpatient E&M: 38340 Subs Hosp L2
[2025-02-23 10:00] VITALS: BP 134/82; PULSE 96; RESP 16; TEMP 36.8; O2SAT 95
[2025-02-23] MEDS: BMX LIQUID 180 ML 10 ML PO ×4 (10:03→22:19)
--- NOTE | 2025-02-23 11:58 | PN_ITS ---
Subjective Subjective Patient was seen this morning for follow up on right foot. She is resting in bed, she relates she did have some pain to foot but controlled now. No f/c/n/v or any other complaints. Objective Data Objective Data Vital Signs: Vital Signs Temp Pulse Resp BP Pulse Ox O2 Del Method O2 Flow Rate 98.4 F 91 18 113/73 96 Room Air 2 02/23/25 03:00 02/23/25 03:00 02/23/25 03:00 02/23/25 03:00 02/23/25 03:00 02/23/25 03:00 02/22/25 10:27 Oxygen Flow Rate (L/min) 2 Oxygen Delivery Method Room Air Weight: 112.5 kg Body Mass Index (BMI) 37.7 Intake & Output: Intake and Output for Last 24 Hours 02/21/25 02/22/25 02/23/25 23:59 23:59 23:59 Intake Total 1731.67 / 1931.67 2721.67 / 3121.67 1250.00 / 1250.00 Output Total 800 / 1600 1999 Balance 1731.67 / 1931.67 1921.67 / 1521.67 -750.00 / -750.00 Lab / Micro Data 02/23/25 04:49 02/23/25 04:49 Labs: Laboratory Results - last 24 hr 02/22/25 14:48: Vancomycin Trough 26.9 H 02/22/25 23:50: Random Vancomycin 12.0 02/23/25 04:49: WBC 7.6, RBC 3.34 L, Hgb 9.5 L, Hct 29.4 L, MCV 88.0, MCH 28.4, MCHC 32.3, RDW Std Deviation 43.4, RDW Coeff of Jennifer 13.5, Plt Count 343, MPV 8.5, Immature Gran % (Auto) 0.300, Neut % (Auto) 58.0, Lymph % (Auto) 26.4, Alcorn % (Auto) 9.9, Eos % (Auto) 5.0, Baso % (Auto) 0.4, Absolute Neuts (auto) 4.4, Absolute Lymphs (auto) 2.01, Nucleated RBC % 0, Sodium 140, Potassium 3.6, Chloride 108, Carbon Dioxide 21.6, Anion Gap 10, BUN 5, Creatinine 0.67 L, Estim Creat Clear Calc 118.95, Est GFR (MDRD) Non-Af 101, BUN/Creatinine Ratio 7.2 L, Glucose 98, Calcium 8.5 Micro: Microbiology 02/22/25 08:58 Bone - Toe Wound Culture - Preliminary 02/22/25 08:58 Tissue - Clearance Fragment Wound Culture - Preliminary No growth-Final to follow 02/22/25 08:58 Bone - 2nd Toe Wound Culture - Preliminary No growth-Final to follow Radiography Diagnostic Testing: Radiology Impression Lower Extremity MRI 02/21/25 14:25 IMPRESSION: Prior amputation distal aspect of the 1st metatarsal and distal phalanx right 3rd toe. There is possible oblique minimally displaced fracture involving the distal phalanx of the right 5th toe, demonstrated on comparison right foot radiographs. Distal to the amputation site of the residual 1st metatarsal, there is a 2.9 x 1.9 x 0.5 cm curvilinear fluid collection which could represent an abscess versus postoperative seroma. There is diffuse edema of the soft tissues and subcutaneous fat of the right foot, which could be due to cellulitis. Moderate abnormal increased signal/marrow edema of the residual 1st metatarsal, as well as the proximal phalanx of the right 1st toe. These could be areas of reactive marrow edema or additional areas of osteomyelitis. Diffuse soft tissue swelling of the 2nd toe. A normal distal phalanx of the 2nd toe is not clearly demonstrated and may be eroded, possible osteomyelitis. Prior amputation distal phalanx of the 3rd toe. No focal abnormal marrow signal of the right 4th toe. There is abnormal marrow signal and heterogeneous morphology of the distal phalanx right 5th toe, which could be due to osteomyelitis/fracture. Moderately extensive degenerative changes of the right foot involving the tarsal bones, tarsal/metatarsal joints as well as the MTP and interphalangeal joints. There are scattered subcortical cystic foci of the tarsals and tarsometatarsal joints, which may be due to advanced degenerative joint disease. The extensive degenerative changes of the tarsal bones and tarsal/metatarsal joints could be due to developing Charcot/neuropathic joint. The proximal aspect of the proximal phalanx of the 2nd toe is subluxed lateral and superior to the metatarsal head. [facility] Physical Exam Const alert, oriented x3 and no apparent distress Constitutional Narrative: Right foot s/p debridement of the 1st ray, there is open wound to the plantar aspect down to bone and incision site dorsally is well coapted, the tissues are healthy and viable and there is less erythema, no purulence, no necrosis, s/p amputation of the distal 2nd toe - flap well coapted with intact sutures, no drainage, no dehiscence. No erythema to midfoot or hindfoot or ankle, no visible necrosis, no maloder no blistering to bilateral foot. No edema left foot. There is dry cracking of skin posterior/plantar left heel down to subcutaneous tissue with no deep probing or evidence of any infection. CFT < 2 seconds to all toes, no evidence of acute ischemia bilateral foot. Calf soft and supple bilateral with no calf pain. No POP or pain on ROM to foot or ankle bilateral. Chronic peripheral neuropathy bilateral. 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 Reviewed diagnostic findings. s/p right foot debridement and also partial right 2nd toe amputation on 02/22/2025 Awaiting surgical culture results. She is on IV antibiotics Vancomycin and Zosyn. ID has been consulted. Wound care right foot: gauze packing, 4x4 gauze, kerlix and trang dressing - change daily Left heel wound: Topical triple antibiotic TID with occlusion due to dry skin with cracking. New left foot xrays ordered - reviewed no evidence of osteomyelitis, no gas in the tissues No weightbearing right foot. Keep left heel offloaded. Wrote order for a power wheelchair: Patient has a mobility limitation that significantly impairs their ability to perform mobility related activities of daily living in the home. The limitation cannot be resolved sufficiently with a cane, walker or manual wheelchair. The patient has the physical and cognitive ability to operate a power wheelchair safetly. Podiatry will continue to follow.
[2025-02-23] MEDS: cycloBENZAPRine HCl 10 MG Tablet PO ×2 (14:13→22:18)
[2025-02-23 14:19] VITALS: BP 120/68; PULSE 95; RESP 18; TEMP 37; O2SAT 94
[2025-02-23] MEDS: 0.9% Normal Saline (250mL Bag) 250 ML 15 ML IV (19:59)
[2025-02-23 21:00] VITALS: BP 116/66; PULSE 86; RESP 18; TEMP 36.6; O2SAT 96
[2025-02-23] MEDS: Zolpidem Tartrate 5 MG Tablet PO (22:18)
[2025-02-23] MEDS: Ondansetron 4 MG/2 ML Vial IV (22:19)
[2025-02-23] MEDS: 0.9% Saline Lock 10 ML Syringe IV (22:19)
[2025-02-24 01:51] LABS: Vancomycin, Trough Level 16.3 ug/mL (5.0-15.0)
--- NOTE | 2025-02-24 01:58 | PCM.RX.CS ---
Consult Antibiotic Management Pharmacy has been consulted to manage selected antibiotic: Vancomycin Type of Intervention Type of Consult: Follow-up Labs Labs: Sodium 140 mmol/L (133-145) 02/23/25 04:49 Potassium 3.6 mmol/L (3.3-5.1) 02/23/25 04:49 Chloride 108 mmol/L (98-108) 02/23/25 04:49 Carbon Dioxide 21.6 mmol/L (21.0-32.0) 02/23/25 04:49 Anion Gap 10 (5-15) 02/23/25 04:49 BUN 5 mg/dL (4-19) 02/23/25 04:49 Creatinine 0.67 mg/dL (0.70-1.20) L 02/23/25 04:49 Est GFR (MDRD) Non-Af 101 (>60) 02/23/25 04:49 BUN/Creatinine Ratio 7.2 RATIO (10-20) L 02/23/25 04:49 Glucose 98 mg/dL (70-99) 02/23/25 04:49 Vancomycin Trough 16.3 ug/mL (5.0-15.0) H 02/24/25 01:18 Random Vancomycin 12.0 ug/mL (0.0-15.0) 02/22/25 23:50 Microbiology Microbiology: Microbiology 02/22/25 08:58 Bone - Toe Gram Stain - Final 02/22/25 08:58 Tissue - Clearance Fragment Gram Stain - Final 02/22/25 08:58 Tissue - Clearance Fragment Wound Culture - Preliminary No growth-Final to follow 02/22/25 08:58 Bone - 2nd Toe Gram Stain - Final 02/22/25 08:58 Bone - 2nd Toe Wound Culture - Preliminary No growth-Final to follow Goal Trough Goal Trough: 15-20 mcg/mL Pharmacy Plan for Drug Dosing Pharmacy Plan for Drug Dosing: Pharmacy Service will continue to monitor and adjust dosing as required. TROUGH 16.3 @ 8 HOURS. NO CHANGES, FOLLOW UP TROUGH IN 2 DAYS Follow-Up Labs Follow-Up Labs: Trough: Vancomycin Date/Time Labs Ordered Labs to be done on [date and time ordered]: 02/26 @ 0000
[2025-02-24] MEDS: Vancomycin IV 1,000 MG/200 ML BAG 200 MG IV ×3 (02:06→16:30)
[2025-02-24 06:00] VITALS: BMI 38.3
[2025-02-24 06:02] LABS: Absolute Lymphocyte Count 2.97 X10^3/uL (0.83-4.51); Absolute Neutrophil Count 5.8 X10^3/uL (2.0-7.7); Basophil# 0.05 X10^3/uL; Basophil% 0.5 % (0-1); Eosinophil# 0.35 X10^3/uL; Eosinophils% 3.5 % (0-5); Hematocrit 29.4 % (37-47); Hemoglobin 9.4 g/dL (12.0-15.0); Lymphocyte # 2.97 X10^3/ul (0.83-4.51); Lymphocyte % 29.6 % (19-41); Mean Corpuscular Hgb 28.3 pg (27.0-32.0); Mean Corpuscular Volume 88.6 fL (81-99); Mean Platelet Vol. 8.7 fl (6.2-12.0); Monocyte# 0.86 X10^3/uL; Monocyte% 8.6 % (0-10); NRBC Flagged by Analyzer 0 % (0-5); Neutrophil # 5.77 X10^3/uL (2.7-7.7); Neutrophil % 57.4 % (47-70); POSITIVE MORPHOLOGY YES; Platelet Count 371 K/mm3 (150-450); RBC Distribution Width CV 13.4 % (11.6-14.6); RBC Distribution Width SD 43.6 fl (35.1-43.9); Red Blood Count 3.32 M/mm3 (4.2-5.4)
[2025-02-24] MEDS: Piperacil/Tazobactam 3.375 GM in 0.9% Normal Saline (50mL MB+) 50 ML IV ×2 (06:31→13:53)
[2025-02-24] MEDS: Neomycin/Bacitracin/Polymyxin Ointment 1 APPLIC TOPICAL ×2 (06:31→10:02)
[2025-02-24] MEDS: BMX LIQUID 180 ML 10 ML PO ×5 (06:34→19:56)
[2025-02-24 06:46] LABS: Differential Indicated SCAN CRITERIA MET
[2025-02-24 06:54] VITALS: BP 118/70; PULSE 92; RESP 16; TEMP 36.7; O2SAT 97
[2025-02-24 06:56] LABS: Atypical Lymphocyte 1+ %
--- NOTE | 2025-02-24 09:53 | PCM.PN.HOSP ---
Subjective Subjective Doing well, no issues overnight. She still having mouth sores, will restart her hydroxychloroquine today. Objective Data Objective Data Vital Signs: Vital Signs Temp Pulse Resp BP Pulse Ox O2 Del Method O2 Flow Rate 98.0 F 92 16 118/70 97 Room Air 2 02/24/25 06:54 02/24/25 06:54 02/24/25 06:54 02/24/25 06:54 02/24/25 06:54 02/24/25 06:54 02/22/25 10:27 Oxygen Flow Rate (L/min) 2 Oxygen Delivery Method Room Air Weight: 253 lb 1.451 oz Body Mass Index (BMI) 38.3 Intake & Output: Intake and Output for Last 24 Hours 02/23/25 02/24/25 02/25/25 03:59 03:59 03:59 Intake Total 2591.67 / 2591.67 2350.00 / 2350.00 400 / 400 Output Total 1600 / 1600 1200 / 1200 Balance 991.67 / 991.67 1150.00 / 1150.00 400 / 400 Lab / Micro Data 02/24/25 05:09 02/23/25 04:49 Labs: Laboratory Results - last 24 hr 02/24/25 01:18: Vancomycin Trough 16.3 H 02/24/25 05:09: WBC 10.0, RBC 3.32 L, Hgb 9.4 L, Hct 29.4 L, MCV 88.6, MCH 28.3, MCHC 32.0, RDW Std Deviation 43.6, RDW Coeff of Jennifer 13.4, Plt Count 371, MPV 8.7, Immature Gran % (Auto) 0.400, Neut % (Auto) 57.4, Lymph % (Auto) 29.6, [place] % (Auto) 8.6, Eos % (Auto) 3.5, Baso % (Auto) 0.5, Absolute Neuts (auto) 5.8, Absolute Lymphs (auto) 2.97, Nucleated RBC % 0, Atypical Lymphocytes 1+ Micro: Microbiology 02/22/25 08:58 Bone - Toe Gram Stain - Final 02/22/25 08:58 Bone - Toe Wound Culture - Preliminary Staphylococcus aureus 02/22/25 08:58 Tissue - Clearance Fragment Gram Stain - Final 02/22/25 08:58 Tissue - Clearance Fragment Wound Culture - Preliminary No growth-Final to follow 02/22/25 08:58 Bone - 2nd Toe Gram Stain - Final 02/22/25 08:58 Bone - 2nd Toe Wound Culture - Preliminary No growth-Final to follow Physical Exam Narrative General: Alert, Oriented x3, Cooperative, No apparent distress HEENT: Atraumatic, PERRLA, EOMI, Normocephalic Oral: Moist Mucosa, oral lesions possible lupus flare Neck: Supple, No JVD Lungs: Diminished, Normal air movement, No rhonchi, No wheeze, No rales Cardiovascular: Regular rate, Regular Rhythm, Normal S1, Normal S2, No murmurs Abdomen: Soft, Non Tender, Non-Distended, No Hepato-splenomegaly Extremities: No edema, Capillary Refill Less than 3 Seconds Skin: Right lower extremity is dressed Musculoskeletal: No Tenderness to Palpation of Joints or Extremities Neurological: No focal neurological deficits, Motor Exam 5/5 strength throughout, Sensory exam intact to light touch and pain Psych/Mental Status: Normal Affect, Appropriate Assessment & Plan Assessment/Plan (1) Cellulitis of right lower limb: PLAN: Plan 1. Acute right foot osteomyelitis with possible midfoot septic arthritis in the setting of lupus and Sjogren's ? She states that she has multiple issues because of her autoimmune disease with recurrent infections in her right foot ? Appreciate podiatry's assistance, status post operative repair on 02/22/2025 ? Prelim cultures with MRSA, corynebacterium and group G strep ? Will continue with broad-spectrum empiric antibiotics ? Await infectious disease input for discharge antibiotics 2. Sjogren/lupus ? Continue with her hydroxychloroquine after surgery to maintain control, restart hydroxychloroquine today ? It does not appear that she is taking her sulfasalazine ?Continue with Magic mouthwash for her oral lesions 3. Anxiety/depression ? Stable ? Can resume her home medications DVT: SCDs Charges/Coding Visit Charges Inpatient E&M: 87773 Subs Hosp L2
[2025-02-24 09:56] VITALS: BP 115/53; PULSE 99; RESP 18; TEMP 36.6; O2SAT 98
[2025-02-24] MEDS: Gabapentin 300 MG Capsule PO ×2 (10:01→21:33)
[2025-02-24] MEDS: DULoxetine Hcl 60 MG Capsule 120 MG PO (10:02)
[2025-02-24] MEDS: Estradiol 1 MG Tablet PO (10:02)
[2025-02-24] MEDS: Hydroxychloroquine 200 MG Tablet PO ×2 (10:29→21:38)
[2025-02-24] MEDS: oxyCODONE 5 MG Tablet PO ×3 (10:29→19:55)
--- NOTE | 2025-02-24 11:01 | WOUNDNOTE ---
wound photo: right plantar foot
--- NOTE | 2025-02-24 11:01 | WOUNDNOTE ---
wound photo: right 2nd toe
--- NOTE | 2025-02-24 11:02 | WOUNDNOTE ---
wound photo: right dorsal foot
--- NOTE | 2025-02-24 11:03 | WOUNDNOTE ---
wound photo: left heel
[2025-02-24 11:55] VITALS: O2SAT 90
--- NOTE | 2025-02-24 12:42 | CASEMGMT ---
Addendum entered by Faith Garcia 02/24/25 15:18: Received IV atb rx from ID. Referral sent to [facility] via [facility]port at this time. Received notification from Ana at [facility] that they are able to accept pt for SOC on Monday. Received ok from ID that pt is able to skip final dose of Vanc tomorrow to start on Monday with [facility]. Addendum entered by Faith Garcia 02/24/25 13:57: Received criteria from Sneha from [facility], updated Dr. Underwood. Rx received for mobility scooter. Addendum entered by Faith Garcia 02/24/25 13:04: RN NATHANIEL into pt room as it is noted pt wants a power w/c. Noted rx on chart. Pt states she wants a power scooter. TC to [facility], they do not sell these. TC to [facility], spoke with Sneha, she states they assist [employer] with them. She will call ENOCH ARMSTRONG back with qualifications for one. Pt states they are going to purchase a knee scooter. Pt has been using a walker for ambulation in the room. ENOCH ARMSTRONG to follow. Original Note: RN CM into pt room, pt sitting up in bed with family at bedside and agreeable to discussion. Discussed the wound vac and C, pt states originally she wanted her dil's agency but she has changed her mind. She would like [facility] as she has had them in the past. Pt denies need for a HH list for other options. Discussed that ID will see her and should she need IV atb at home, the process for this. Pt states she is able to learn or a family member. Provided her with a list of Infusion companies verbally, pt chose [facility]. TC to [facility], left vm with referral at this time. Will await for decision to accept.
--- NOTE | 2025-02-24 13:39 | PCM.PROGNOTE ---
Subjective Subjective Patient was seen today for follow up on right foot. Wound vac has been ordered and placed. She has no new pedal complaints. Relates she has sores in her mouth from Lupus. Objective Data Objective Data Vital Signs: Vital Signs Temp Pulse Resp BP Pulse Ox O2 Del Method O2 Flow Rate 97.8 F 99 18 115/53 L 90 Room Air 2 02/24/25 09:56 02/24/25 09:56 02/24/25 09:56 02/24/25 09:56 02/24/25 11:55 02/24/25 11:55 02/22/25 10:27 Oxygen Flow Rate (L/min) 2 Oxygen Delivery Method Room Air Weight: 114.8 kg Body Mass Index (BMI) 38.3 Intake & Output: Intake and Output for Last 24 Hours 02/22/25 02/23/25 02/24/25 23:59 23:59 23:59 Intake Total 2721.67 / 3121.67 2450.00 / 2750.00 1437.75 / 1437.75 Output Total 800 / 1600 1999 / 1999 Balance 1921.67 / 1521.67 450.00 / 750.00 1437.75 / 1437.75 Lab / Micro Data 02/24/25 05:09 02/23/25 04:49 Labs: Laboratory Results - last 24 hr 02/24/25 01:18: Vancomycin Trough 16.3 H 02/24/25 05:09: WBC 10.0, RBC 3.32 L, Hgb 9.4 L, Hct 29.4 L, MCV 88.6, MCH 28.3, MCHC 32.0, RDW Std Deviation 43.6, RDW Coeff of Jennifer 13.4, Plt Count 371, MPV 8.7, Immature Gran % (Auto) 0.400, Neut % (Auto) 57.4, Lymph % (Auto) 29.6, [place] % (Auto) 8.6, Eos % (Auto) 3.5, Baso % (Auto) 0.5, Absolute Neuts (auto) 5.8, Absolute Lymphs (auto) 2.97, Nucleated RBC % 0, Atypical Lymphocytes 1+ Micro: Microbiology 02/21/25 18:50 Blood Culture (Wb) - Arm Left Blood Culture - Preliminary No growth in 48 hours. 02/21/25 17:20 Blood Culture (Wb) - Arm Left Blood Culture - Preliminary No growth in 48 hours. 02/22/25 08:58 Bone - Toe Gram Stain - Final 02/22/25 08:58 Bone - Toe Wound Culture - Preliminary Staphylococcus aureus 02/22/25 08:58 Bone - Toe Anaerobic Culture - Preliminary 02/22/25 08:58 Tissue - Clearance Fragment Gram Stain - Final 02/22/25 08:58 Tissue - Clearance Fragment Wound Culture - Preliminary No growth-Final to follow 02/22/25 08:58 Tissue - Clearance Fragment Anaerobic Culture - Preliminary 02/22/25 08:58 Bone - 2nd Toe Gram Stain - Final 02/22/25 08:58 Bone - 2nd Toe Wound Culture - Preliminary No growth-Final to follow 02/22/25 08:58 Bone - 2nd Toe Anaerobic Culture - Preliminary No growth in 48 hours. Radiography Diagnostic Testing: Radiology Impression Extremity Arterial Study 02/21/25 21:24 Interpretation Summary Right CEDRICK 1.15, normal. Doppler/PVR waveforms of the right leg normal at rest. Left CEDRICK 1.11, normal. TBI and Doppler/PVR waveforms of the left leg normal at rest. Ordering Physician: Akin Underwood Referring Physician: Elmira Brownlee Performed By: Sneha Smith RVT Physical Exam Const alert, oriented x3 and no apparent distress Constitutional Narrative: Right foot s/p debridement of the 1st ray and partial 2nd toe amputation: wound vac in place plantar foot. 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 Reviewed diagnostic findings. s/p right foot debridement and also partial right 2nd toe amputation on 02/22/2025 Surgical culture results with staph aureus so far. She is on IV antibiotics Vancomycin and Zosyn. ID service on consult, plan for 6 weeks of IV antibiotics Wound care right foot: Wound vac Left heel wound: Topical triple antibiotic TID with occlusion due to dry skin with cracking. Keep heel offloaded. No weightbearing right foot. Keep left heel offloaded. Today wrote order for a mobility scooter: Patient has a mobility limitation that significantly impairs their ability to perform mobility related activities of daily living in the home. The limitation cannot be resolved sufficiently with a cane, walker or manual wheelchair. The patient has the physical and cognitive ability to operate a power wheelchair safely. Podiatry will continue to follow.
[2025-02-24 14:00] VITALS: BP 117/64; PULSE 92; RESP 18; TEMP 36.5; O2SAT 98
--- NOTE | 2025-02-24 14:36 | PCM.CONS.GEN ---
Assessment & Plan Assessment/Plan (1) Osteomyelitis of foot, right, acute: PLAN: on vanc/zosyn, taken to OR 02/22/[address] Underwood for distal 2nd toe amp and I&D of 1st toe and metatarsal. Wound cx with MRSA, corynebacter, and group G strep. Surg cx with staph aureus so far. Will narrow to vanc/ceftriaxone/flagyl. Picc today for planned 6 week course. Will follow, thank you (2) Lupus (systemic lupus erythematosus): HPI Consult Data Date of Consult: 02/24/25 HPI Narrative Reason for Consultation: osteo HPI Narrative: CHAPO PEREZ, is a 59 F with DM neuropathy, SLE, CKD, presented 02/21/25 with about 2 weeks progressive R foot pain, redness, swelling, and drainage. No known inciting event. Pain was minimal. Started on doxy by PCP last week. Admitted here on vanc/zosyn, taken to OR 02/22/[address] Underwood for distal 2nd toe amp and I&D of 1st toe and metatarsal. Feeling better, c/o mouth sources from her lupus. Full ROS performed and neg except as noted above. [facility] Medical History Sleep apnea Anxiety Depression Rheumatoid arthritis Migraines Amputation of toe of left foot Wears contact lenses Wears glasses Connective tissue disease Walker as ambulation aid Ambulates with cane Arthritis History of IBS Heartburn Non-smoker CPAP (continuous positive airway pressure) dependence Fibromyalgia Sjogren syndrome with dental involvement Sjogren syndrome with keratoconjunctivitis Sjogren syndrome with peripheral nervous system involvement Lupus Home Medications ?Medication ?Instructions ?Recorded ?Last Taken ?Type cyclobenzaprine 10 mg tablet 10 mg PO TID PRN MUSCLE SPASMS 04/15/20 11/09/23 History duloxetine 60 mg capsule,delayed 120 mg PO DAILY 04/15/20 11/09/23 History release estradiol 1 mg tablet 1 mg PO DAILY 04/15/20 11/09/23 History gabapentin 300 mg capsule 300 mg PO BID 04/15/20 11/09/23 History hydroxychloroquine 200 mg tablet 200 mg PO BID 04/15/20 11/09/23 History lorazepam 1 mg tablet 1 mg PO DAILY PRN Anxiety 04/15/20 11/10/23 History zolpidem 10 mg tablet 10 mg PO QHS 04/15/20 11/09/23 History hydroxyzine HCl 25 mg tablet 12.5 - 50 mg PO TID PRN PRN anxiety 02/21/25 Unknown History sulfamethoxazole 800 1 tab PO BID 02/21/25 Unknown History mg-trimethoprim 160 mg tablet sulfasalazine 500 mg 500 mg PO TID 02/21/25 Unknown History tablet,delayed release Allergy/AdvReac Type Severity Reaction Status Date / Time Gadolinium-MRI Contrast Allergy Intermediate Hives Verified 02/21/25 13:47 Medium (CONTRAST) Iodinated Contrast Media (CT) Allergy Rash Verified 02/21/25 13:47 morphine Allergy Hives Verified 02/21/25 13:47 sertraline (From Zoloft) Allergy Swelling Verified 02/21/25 13:47 Family History Father Pseudocholinesterase deficiency Prostate cancer Mother CAD (coronary artery disease) Heart disease Hypertension Breast cancer Lupus Surgical History H/O wisdom tooth extraction H/O tubal ligation History of hysterectomy Hx of cholecystectomy Hx of Achilles tendon repair Social History household members: spouse Smoking Status: Never smoker alcohol intake: never substance use type: does not use Physical Exam Const alert, oriented x3 and no apparent distress General Appearance: cooperative HEENT normocephalic and head/scalp atraumatic Eyes PERRL and EOMs intact bilaterally Neck supple and No nodes Resp normal air movement and clear to auscultation bilaterally Cardio regular rate and regular rhythm GI soft to palpation, non-tender and non-distended Extremity General Extremity: Negative for edema Skin Skin Narrative: feet wrapped Neuro CN's II-XII intact bilaterally Lab / Micro Data Attestation: I reviewed the patient's lab results. 02/24/25 05:09 02/23/25 04:49 Labs: Laboratory Results - last 24 hr 02/24/25 01:18: Vancomycin Trough 16.3 H 02/24/25 05:09: WBC 10.0, RBC 3.32 L, Hgb 9.4 L, Hct 29.4 L, MCV 88.6, MCH 28.3, MCHC 32.0, RDW Std Deviation 43.6, RDW Coeff of Jennifer 13.4, Plt Count 371, MPV 8.7, Immature Gran % (Auto) 0.400, Neut % (Auto) 57.4, Lymph % (Auto) 29.6, [place] % (Auto) 8.6, Eos % (Auto) 3.5, Baso % (Auto) 0.5, Absolute Neuts (auto) 5.8, Absolute Lymphs (auto) 2.97, Nucleated RBC % 0, Atypical Lymphocytes 1+ Micro: Microbiology 02/21/25 18:50 Blood Culture (Wb) - Arm Left Blood Culture - Preliminary No growth in 48 hours. 02/21/25 17:20 Blood Culture (Wb) - Arm Left Blood Culture - Preliminary No growth in 48 hours. 02/22/25 08:58 Bone - Toe Gram Stain - Final 02/22/25 08:58 Bone - Toe Wound Culture - Preliminary Staphylococcus aureus 02/22/25 08:58 Bone - Toe Anaerobic Culture - Preliminary 02/22/25 08:58 Tissue - Clearance Fragment Gram Stain - Final 02/22/25 08:58 Tissue - Clearance Fragment Wound Culture - Preliminary No growth-Final to follow 02/22/25 08:58 Tissue - Clearance Fragment Anaerobic Culture - Preliminary 02/22/25 08:58 Bone - 2nd Toe Gram Stain - Final 02/22/25 08:58 Bone - 2nd Toe Wound Culture - Preliminary No growth-Final to follow 02/22/25 08:58 Bone - 2nd Toe Anaerobic Culture - Preliminary No growth in 48 hours. Imaging Radiology Impression Extremity Arterial Study 02/21/25 21:24 Interpretation Summary Right CEDRICK 1.15, normal. Doppler/PVR waveforms of the right leg normal at rest. Left CEDRICK 1.11, normal. TBI and Doppler/PVR waveforms of the left leg normal at rest. Ordering Physician: Akin Underwood Referring Physician: Elmira Brownlee Performed By: Sneha Smith RVT
[2025-02-24] MEDS: Ceftriaxone 2 GM in 0.9% Normal Saline (50mL MB+) 50 ML IV (15:01)
[2025-02-24] MEDS: cycloBENZAPRine HCl 10 MG Tablet PO (19:55)
[2025-02-24 20:16] VITALS: BP 135/98; PULSE 95; RESP 16; TEMP 37.1; O2SAT 95
[2025-02-24] MEDS: metroNIDAZOLE 500 MG Tablet PO (21:32)
[2025-02-24] MEDS: Zolpidem Tartrate 5 MG Tablet PO (21:33)
[2025-02-25] MEDS: Vancomycin IV 1,000 MG/200 ML BAG 200 MG IV ×3 (00:29→16:05)
[2025-02-25 00:41] VITALS: BP 142/69; PULSE 101; RESP 16; TEMP 36.3; O2SAT 86; O2SAT 95
[2025-02-25] MEDS: metroNIDAZOLE 500 MG Tablet PO ×2 (05:35→14:00)
[2025-02-25 05:49] VITALS: BMI 38.3
[2025-02-25 06:15] VITALS: BP 115/67; PULSE 91; RESP 16; TEMP 36.6; O2SAT 96
--- NOTE | 2025-02-25 09:06 | CASEMGMT ---
Addendum entered by Faith Garcia 02/25/25 09:15: Mobility scooter order and supporting documentation sent to [facility] via [facility] at this time. TC to Sneha at [facility], she is aware. Original Note: Picc report sent to [facility] via [facility]port at this time.
[2025-02-25] MEDS: Neomycin/Bacitracin/Polymyxin Ointment 1 APPLIC TOPICAL (09:10)
[2025-02-25] MEDS: Estradiol 1 MG Tablet PO (09:10)
[2025-02-25] MEDS: DULoxetine Hcl 60 MG Capsule 120 MG PO (09:10)
[2025-02-25] MEDS: Hydroxychloroquine 200 MG Tablet PO (09:10)
[2025-02-25] MEDS: oxyCODONE 5 MG Tablet PO (09:10)
[2025-02-25] MEDS: Gabapentin 300 MG Capsule PO (09:10)
[2025-02-25] MEDS: BMX LIQUID 180 ML 10 ML PO ×2 (09:11→14:00)
[2025-02-25 09:17] VITALS: BP 120/62; PULSE 87; RESP 18; TEMP 36.7; O2SAT 98
--- NOTE | 2025-02-25 09:22 | CASEMGMT ---
Addendum entered by Faith Garcia 02/25/25 10:47: Per ID, ok for pt to miss last dose of vancomycin today. Pt aware she may dc after 4:30pm vancomycin dose. Faxed [facility] IV rx at this time. Original Note: RN CM into pt room, pt aware of IV atb and that there is no cost. Pt is aware that [facility] is trying to reach her. She will call them back. Pt is aware that the power scooter rx and documentation was sent to [facility] who will then forward to [employer]. Pt is aware that [facility] will be in touch with her to come out to her home tomorrow for teaching of IV and wound vac change. Provided pt with physical rx for metronidazole from [place]. She is aware this will need filled. [facility] wound nurse states to notify that she did not use white foam in the wound but ordered it for HH to use. TC to Ana, she is aware of this. She is aware that the wound vac needs changed tomorrow as well.
--- NOTE | 2025-02-25 09:40 | DCINST_ITS ---
Discharge Instructions Diet Discharge Diet: No restrictions DC O2, CPAP, BIPAP needs Home O2 Discharge instructions: No Dressing / Incision Discharge Activity: Return to Normal Activity Dressing / Incision Call your doctor if you observe: Fever of 101 or Higher, Shortness of breath, Dizziness, Fainting spells, Swelling in the ankles, Chest pain and Increased palpitations (irregular heartbeat) Follow Up Care Test Results: Test results from this visit will be discussed in further detail at your follow- up appointment, if applicable. Discharge Plan Admission Admit Date/Time: 02/21/25 17:12 Attending Provider: Andrez Moralez Primary Care Provider: Elmira Brownlee Consulting Providers: Akin Underwood; Antonella Nguyen; Flynn Reyes Discharge Orders/Prescriptions Prescriptions: New metronidazole 500 mg Tablet 500 mg PO TID 40 Days Qty: 120 0RF vancomycin in dextrose 5 % 1 gram/200 mL Piggyback 1,000 mg IV Q8H 40 Days Qty: 8000 0RF Rx Instructions: stop date 04/05/25. Dx: R foot osteomyelitis. Weekly bmp, cbc, LFT, vanc trough, and esr. Fax to [phone]. Routine picc care per protocol. ceftriaxone 2 gram recon soln 2 g IV DAILY 40 Days Rx Instructions: stop date 04/05/25. Dx: R foot osteomyelitis. Weekly bmp, cbc, LFT, vanc trough, and esr. Fax to [phone]. Routine picc care per protocol. nystatin 100,000 unit/mL Suspension 500,000 unit PO 4X/DAY 10 Days Qty: 200 0RF oxycodone 5 mg Tablet 5 mg PO Q4H PRN PRN (Reason: Pain Score 4-10) 3 Days Qty: 10 0RF Discontinued sulfamethoxazole-trimethoprim 800-160 mg tablet 1 tab PO BID Patient Comments: pt started on 02/19/2025 No Action cyclobenzaprine 10 MG tablet 10 mg PO TID PRN (Reason: MUSCLE SPASMS) estradiol 1 MG tablet 1 mg PO DAILY gabapentin 300 MG capsule 300 mg PO BID lorazepam 1 MG tablet 1 mg PO DAILY PRN (Reason: Anxiety) hydroxychloroquine 200 MG tablet 200 mg PO BID zolpidem 10 MG tablet 10 mg PO QHS duloxetine 60 MG capsule 120 mg PO DAILY sulfasalazine 500 mg tablet,delayed release (/EC) 500 mg PO TID hydroxyzine HCl 25 mg tablet 12.5 - 50 mg PO TID PRN PRN (Reason: anxiety) Referrals / Follow Up: Akin Underwood DPM [Med Staff - Active Staff] - Within 2 Weeks Elmira Brownlee NP-C [Primary Care Provider] - Within 1 Week Disposition Disposition (needs filled in before D/C Order can be placed): Home Health Service
[2025-02-25] MEDS: Ceftriaxone 2 GM in 0.9% Normal Saline (50mL MB+) 50 ML IV (10:21)
--- NOTE | 2025-02-25 10:33 | WOUNDNOTE ---
pt switched over to the home VAC. reviewed alarms, how to return VAC, etc. with patient. Pt has had a home VAC in the past. pt aware that the wound VAC dressing will be changed tomorrow per home health nurse. rewrapped the LYNNE wrap today. minimal drainage noted in the VAC canister. Pt denies further questions or concerns at this time.
[2025-02-25] MEDS: NYSTATIN 500,000 UNIT/5 ML UDC 500000 UNIT PO ×2 (11:06→14:00)
--- NOTE | 2025-02-25 12:52 | PCM.PROGNOTE ---
Subjective Subjective Patient was seen today for follow up on bilateral feet. She is resting in bed, no new complaints, she relates she is ready to go home. Objective Data Objective Data Vital Signs: Vital Signs Temp Pulse Resp BP Pulse Ox O2 Del Method O2 Flow Rate 98.1 F 87 18 120/62 98 Room Air 2 02/25/25 09:17 02/25/25 09:02/25/25 09:02/25/25 09:02/25/25 09:02/25/25 09:02/25/25 06:15 Oxygen Flow Rate (L/min) 2 Oxygen Delivery Method Room Air Weight: 114.8 kg Body Mass Index (BMI) 38.3 Intake & Output: Intake and Output for Last 24 Hours 02/23/25 02/24/25 02/25/25 23:59 23:59 23:59 Intake Total 2450.00 / 2750.00 2050.83 / 2050.83 500 / 500 Output Total 2000 / 1999 Balance 450.00 / 750.00 2049.83 / 2049.83 500 / 500 Lab / Micro Data 02/24/25 05:09 02/23/25 04:49 Micro: Microbiology 02/22/25 08:58 Tissue - Clearance Fragment Gram Stain - Final 02/22/25 08:58 Tissue - Clearance Fragment Wound Culture - Preliminary Gram positive organism 02/22/25 08:58 Tissue - Clearance Fragment Anaerobic Culture - Final No anaerobic bacteria isolated. 02/22/25 08:58 Bone - 2nd Toe Gram Stain - Final 02/22/25 08:58 Bone - 2nd Toe Wound Culture - Final No growth aerobically. 02/22/25 08:58 Bone - 2nd Toe Anaerobic Culture - Preliminary No growth in 48 hours. 02/22/25 08:58 Bone - Toe Gram Stain - Final 02/22/25 08:58 Bone - Toe Wound Culture - Final Staphylococcus aureus 02/21/25 18:50 Blood Culture (Wb) - Arm Left Blood Culture - Preliminary No growth in 48 hours. 02/21/25 17:20 Blood Culture (Wb) - Arm Left Blood Culture - Preliminary No growth in 48 hours. Physical Exam Const alert, oriented x3 and no apparent distress Constitutional Narrative: Right foot s/p debridement of the 1st ray and partial 2nd toe amputation: wound vac in place plantar foot. Right 2nd toe amputation site healing well, no drainage, no necrosis, sutures intact, erythema right foot much improved. CFT < 2 seconds to all toes right foot. Left heel with superficial cracking of skin with dry skin and some callus formation - much improved and healing, no evidence of infection. 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 Reviewed diagnostic findings. s/p right foot debridement and also partial right 2nd toe amputation on 02/22/2025 Surgical culture results with staph aureus so far, final results pending. She is on IV antibiotics - Vancomycin, Ceftriaxone, and Flagyl, ID service on consult, plan for 6 weeks of antibiotics Wound care right foot: Wound vac with overlying gauze and trang dressing. Change MWF. Left heel wound: Topical triple antibiotic TID with occlusion due to dry skin with cracking. Keep heel offloaded. Ordered foam heel protector boot. No weightbearing right foot. Order for a mobility scooter has been written. Podiatry will continue to follow, she will follow up with me in office next Monday, sooner if needed.
[2025-02-25 14:07] VITALS: BP 115/68; PULSE 95; RESP 18; TEMP 36.6; O2SAT 94
--- NOTE | 2025-02-25 15:43 | DS.PCM_ITS ---
Providers Date of Admission: 02/21/25 Primary Care Physician: RHONDA Moncada Consultations 02/21/25 19:36 Consult: Infectious Disease Routine Consulting Provider: Flynn Reyes Reason for Consult: osteo, ? midfoot septic arthritis EMERGENT Consult: No Notified: Yes Date Notified: 02/24/25 Time Notified: 07:48 Method of Notification: Text Consult: Onc/Wound/sql application developer Routine Comment: Reason for Consult:: R foot wound Consult: Podiatry Routine Consulting Provider: Akin Underwood Reason for Consult: septic midfoot arthritis, osteo EMERGENT Consult: No Notified: Yes Date Notified: 02/21/25 Time Notified: 17:14 Method of Notification: ED Physician Initiated Reason For Visit: ACUTE OSTEOMYELITIS R FOOT/? MIDFOOT SEPTIC Diagnosis Discharge Diagnosis (1) Cellulitis of right lower limb: Status: Acute Code(s): L03.115 - Cellulitis of right lower limb (2) Non-pressure chronic ulcer of other part of right foot with necrosis of bone: Status: Chronic Code(s): L97.514 - Non-pressure chronic ulcer of other part of right foot with necrosis of bone (3) Non-pressure chronic ulcer of other part of left foot with fat layer exposed: Status: Chronic Code(s): L97.522 - Non-pressure chronic ulcer of other part of left foot with fat layer exposed (4) Xerosis cutis: Status: Acute Code(s): L85.3 - Xerosis cutis (5) Acquired bilateral hammer toes: Status: Acute Code(s): M20.41 - Other hammer toe(s) (acquired), right foot; M20.42 - Other hammer toe(s) (acquired), left foot Medications at Discharge Home Medications cyclobenzaprine 10 mg tablet 10 mg PO TID PRN MUSCLE SPASMS 04/15/20 duloxetine 60 mg capsule,delayed release 120 mg PO DAILY 04/15/20 estradiol 1 mg tablet 1 mg PO DAILY 04/15/20 gabapentin 300 mg capsule 300 mg PO BID 04/15/20 hydroxychloroquine 200 mg tablet 200 mg PO BID 04/15/20 lorazepam 1 mg tablet 1 mg PO DAILY PRN Anxiety 04/15/20 zolpidem 10 mg tablet 10 mg PO QHS 04/15/20 hydroxyzine HCl 25 mg tablet 12.5 - 50 mg PO TID PRN PRN anxiety 02/21/25 sulfasalazine 500 mg tablet,delayed release 500 mg PO TID 02/21/25 ceftriaxone 2 gram intravenous solution 2 g IV DAILY 40 days 02/24/25 metronidazole 500 mg tablet 500 mg PO TID 40 days #120 tabs 02/24/25 vancomycin 1 gram/200 mL in dextrose 5 % intravenous piggyback 1,000 mg IV Q8H 40 days #8,000 mL 02/24/25 nystatin 100,000 unit/mL oral suspension 500,000 unit (5 mL) PO 4X/DAY 10 days #200 mL 02/25/25 oxycodone 5 mg tablet 5 mg PO Q4H PRN PRN Pain Score 4-10 3 days #10 tabs 02/25/25 Hospital Course Operations - ( Partial right 2nd toe amputation Debridement of all nonviable, infected and necrotic soft tissue and bone right foot 1st ray) Procedures PICC line placement Summary of Care Provided Minutes Spent on Discharge: 36 Hospital Course: Per HPI: The patient is a 59 y/o F w/ PMHx: Obesity, FAUSTINO on CPAP, GERD, Fibromyalgia, Sjogren's disease/SLE, Anxiety and Depression, CKD stage II per GFR trend who presents to the [facility] ED on 02/21/25 with history of known osteomyelitis of the right third toe currently on Bactrim however her symptoms are not improving with worsening appearance with right foot redness with no specific fevers or chills with underlying chronic neuropathy though she denies any significant severe pain to the region with no recent trauma to the region but given worsened appearance with increased swelling and erythema prompted ED evaluation. She also does note increased drainage from a small wound on the plantar aspect under her first metatarsal. From records most recent operative intervention per podiatry 11/10/2023 with debridement of left heel ulceration down to the fascia layer with rotational flap arthroplasty of the left fourth toe, flexor tenotomy of the left 2nd and 3rd toes. Workup in the ED included T98.4, heart rate 115, BP 142/82, respiratory rate 16, 98% room air with most recent repeat vitals T90.1, heart rate 103, BP 114/72, respiratory rate 18, 94% room air, CBC with WBC 9.3, hemoglobin 0.1, MCV 85.4, platelet 390 without marked shift, ESR 54, CRP 187, CMP with glucose 118, alk phos 182 otherwise unremarkable, lactic acid 1.0, EKG with sinus tachycardia with no acute evidence of ischemia.. Recent outpatient film of the right lower extremity secondary to cellulitis of the foot with a large area of osseous erosion/destruction at the amputation margin of the distal first metatarsal consistent with osteomyelitis with adjacent surrounding marked soft tissue swelling to the medial forefoot extending to the midfoot consistent with soft tissue infection with new multifocal areas of osseous lucency at the bases of the 2nd through 5th metatarsals and likely at the medial and lateral cuneiforms and cuboid at the midfoot concerning for osseous destruction from osteomyelitis with possibility of midfoot septic arthritis, dorsal midfoot soft tissue swelling. In the ED patient ministered IV vancomycin and IV Zosyn therapy. ED discussed case with Podiatry who requested medical admission given her underlying histories and also MRI foot was initiated. Hospital Course: 1. Acute right foot osteomyelitis with possible midfoot septic arthritis in the setting of lupus and Sjogren's status post surgical intervention 02/22/2025?5 9-year-old female with history of lupus and chronic intermittent infections in her right foot presents to the hospital with recurrent osteomyelitis. She had surgical intervention with washout and infectious disease was consulted recommending 6 weeks of IV Rocephin and vancomycin with p.o. metronidazole. She did have a PICC line placed on 02/24/2025 in her left upper extremity. During her hospitalization her Plaquenil was held however she still developed what appears to be thrush so she was also discharged on nystatin swish and swallow. She is able to resume her hydroxychloroquine on discharge and will also provide with pain medications. She is nonweightbearing on her right lower extremity which she is aware of and she has a knee scooter at home. I discussed with her the plan for discharge today and she expressed understanding of the risk benefits of going home and would like to go home today. 2. Sjogren's, lupus, anxiety, depression all chronic medical conditions which complicate her care. Her home medications were continued where appropriate Physical Exam Narrative General: Alert, Oriented x3, Cooperative, No apparent distress HEENT: Atraumatic, PERRLA, EOMI, Normocephalic Oral: Moist Mucosa, oral lesions consistent with thrush Neck: Supple, No JVD Lungs: Diminished, Normal air movement, No rhonchi, No wheeze, No rales Cardiovascular: Regular rate, Regular Rhythm, Normal S1, Normal S2, No murmurs Abdomen: Soft, Non Tender, Non-Distended, No Hepato-splenomegaly Extremities: No edema, Capillary Refill Less than 3 Seconds Skin: Right lower extremity is dressed Musculoskeletal: No Tenderness to Palpation of Joints or Extremities Neurological: No focal neurological deficits, Motor Exam 5/5 strength throughout, Sensory exam intact to light touch and pain Psych/Mental Status: Normal Affect, Appropriate Weight / BMI Weight Weight: 253 lb 1.451 oz Body Mass Index (BMI) 38.3 ABG / Lab / Microbiology Data 02/24/25 05:09 02/23/25 04:49 Microbiology: Microbiology 02/22/25 08:58 Tissue - Clearance Fragment Gram Stain - Final 02/22/25 08:58 Tissue - Clearance Fragment Wound Culture - Preliminary Gram positive organism 02/22/25 08:58 Tissue - Clearance Fragment Anaerobic Culture - Final No anaerobic bacteria isolated. 02/22/25 08:58 Bone - 2nd Toe Gram Stain - Final 02/22/25 08:58 Bone - 2nd Toe Wound Culture - Final No growth aerobically. 02/22/25 08:58 Bone - 2nd Toe Anaerobic Culture - Preliminary No growth in 48 hours. 02/22/25 08:58 Bone - Toe Gram Stain - Final 02/22/25 08:58 Bone - Toe Wound Culture - Final Staphylococcus aureus 02/21/25 18:50 Blood Culture (Wb) - Arm Left Blood Culture - Preliminary No growth in 48 hours. 02/21/25 17:20 Blood Culture (Wb) - Arm Left Blood Culture - Preliminary No growth in 48 hours. D/C Instructions Discharge Diet: No restrictions Weight Bearing Status: No weight bearing (right foot) Call your doctor if you observe: Fever of 101 or Higher, Shortness of breath, Dizziness, Fainting spells, Swelling in the ankles, Chest pain and Increased palpitations (irregular heartbeat) DC O2, CPAP, BIPAP Needs Home O2 Discharge instructions: No Meaningful Use Info Meaningful Use Meaningful Use Diagnoses (Choose all that apply): None applicable Ischemic Stroke Statin Dosing Therapy Reference: STATIN DOSE THERAPY REFERENCE: * Patients > 75 years receive moderate or high dose statin therapy. * Patients 75 years or YOUNGER should receive HIGH intensity statin dose unless contraindicated. You will be required to document reason for non-treatment if statin daily dose does not meet guidelines. HIGH DOSE STATIN THERAPY DAILY Atorvastatin > than or = to 40 mg Rosuvastatin > than or = to 20 mg Amlodipine + Atorvastatin > than or = to 2.5/40 mg Ezetimibe + Simvastatin 10/80 mg Simvastatin 80mg Discharge Plan Admission Admit Date/Time: 02/21/25 17:12 Attending Provider: Andrez Moralez Primary Care Provider: Elmira Brownlee Consulting Providers: Akin Underwood; Antonella Nguyen; Flynn Reyes Discharge Orders/Prescriptions Prescriptions: New metronidazole 500 mg Tablet 500 mg PO TID 40 Days Qty: 120 0RF vancomycin in dextrose 5 % 1 gram/200 mL Piggyback 1,000 mg IV Q8H 40 Days Qty: 8000 0RF Rx Instructions: stop date 04/05/25. Dx: R foot osteomyelitis. Weekly bmp, cbc, LFT, vanc trough, and esr. Fax to [phone]. Routine picc care per protocol. ceftriaxone 2 gram recon soln 2 g IV DAILY 40 Days Rx Instructions: stop date 04/05/25. Dx: R foot osteomyelitis. Weekly bmp, cbc, LFT, vanc trough, and esr. Fax to [phone]. Routine picc care per protocol. nystatin 100,000 unit/mL Suspension 500,000 unit PO 4X/DAY 10 Days Qty: 200 0RF oxycodone 5 mg Tablet 5 mg PO Q4H PRN PRN (Reason: Pain Score 4-10) 3 Days Qty: 10 0RF Discontinued sulfamethoxazole-trimethoprim 800-160 mg tablet 1 tab PO BID Patient Comments: pt started on 02/19/2025 No Action cyclobenzaprine 10 MG tablet 10 mg PO TID PRN (Reason: MUSCLE SPASMS) estradiol 1 MG tablet 1 mg PO DAILY gabapentin 300 MG capsule 300 mg PO BID lorazepam 1 MG tablet 1 mg PO DAILY PRN (Reason: Anxiety) hydroxychloroquine 200 MG tablet 200 mg PO BID zolpidem 10 MG tablet 10 mg PO QHS duloxetine 60 MG capsule 120 mg PO DAILY sulfasalazine 500 mg tablet,delayed release (DR/EC) 500 mg PO TID hydroxyzine HCl 25 mg tablet 12.5 - 50 mg PO TID PRN PRN (Reason: anxiety) Referrals / Follow Up: Akin Underwood DPM [Med Staff - Active Staff] - 03/04/25 9:15 am Elmira Brownlee NP-C [Primary Care Provider] - 03/04/25 11:10 am Disposition Disposition (needs filled in before D/C Order can be placed): Home Health Service Charges/Coding Visit Charges Inpatient E&M: 87617 Disch Hosp >30min
== END 2025-02-25 17:51 | disposition home health service (06) | DRG 504 ==
LOC: ED 17:12 → MS3 17:23
PROVIDERS: Podiatrist; Admitting Provider Family Medicine; Emergency Provider Emergency Medicine; PCP Nurse Practitioner Family; Referring Provider Family Medicine; Visit Provider Family Medicine
PROC: 0Y6R0Z2 Detachment at Right 2nd Toe, Mid, Open Approach (ICD-10-PCS; principal; 2025-02-22 08:00)
DX: M86.171 Other acute osteomyelitis, right ankle and foot (principal); L03.115 Cellulitis of right lower limb; B37.0 Candidal stomatitis; M00.871 Arthritis due to other bacteria, right ankle and foot; L89.621 Pressure ulcer of left heel, stage 1; M32.9 Systemic lupus erythematosus, unspecified; F32.A Depression, unspecified; E66.9 Obesity, unspecified; L97.514 Non-pressure chronic ulcer of other part of right foot with necrosis of bone; M20.41 Other hammer toe(s) (acquired), right foot; N18.2 Chronic kidney disease, stage 2 (mild); G47.33 Obstructive sleep apnea (adult) (pediatric); K21.9 Gastro-esophageal reflux disease without esophagitis; M79.7 Fibromyalgia; L85.3 Xerosis cutis; L97.522 Non-pressure chronic ulcer of other part of left foot with fat layer exposed; M19.071 Primary osteoarthritis, right ankle and foot; M20.42 Other hammer toe(s) (acquired), left foot; B95.62 Methicillin resistant Staphylococcus aureus infection as the cause of diseases classified elsewhere; Z90.710 Acquired absence of both cervix and uterus; M35.00 Sjogren syndrome, unspecified
CPT/HCPCS: 36415; 36569; 73630; 73718; 80048; 80053; 80202; 83605; 85025; 85652; 86140; 87015; 87040; 87070; 87075; 87077; 87102; 87116; 87176; 87186; 87205; 87206; 87640; 88304; 88305; 88311; 93005; 93923; 97162; 99285; A4216; J0696; J2405

== ENCOUNTER 2025-03-04 14:16 | Inpatient (IN) | payer MEDICARE, BC, SELFPAY ==
[2025-03-04 14:18] VITALS: BP 147/80; PULSE 104; RESP 18; TEMP 36.6; O2SAT 97
--- NOTE | 2025-03-04 16:29 | ED.VIS.GI ---
HPI HPI - GI History of Present Illness Chief Complaint: Diarrhea Informant: patient Narrative Narrative: Patient is a 59-year-old female relatively extensive past medical history including SLE, Sjogren syndrome, RA, migraines, connective tissue disease, fibromyalgia and recent infected wound of her right foot requiring debridement and has a wound VAC as well as receiving antibiotics through PICC line. Patient has developed diarrhea and dizziness. She states that for the past few days she has has been feeling good. She been having diarrhea. She states its approximately 6 episodes of diarrhea a day. She states the stools oscillate between being soft orange to loose/watery orange. She denies any smell to it. She denies any personal history of C. difficile. She was discharged home with Flagyl orally, 2 g Rocephin daily and 1 g vancomycin every 8 hours. She states that she was instructed by Electrolyte injured to get a trough level and something else which she does not recall. She states she did not have her last vancomycin dose but does not remember why. She does report some mild suprapubic discomfort. She does not report any urinary symptoms. She notes that since her surgery she has been nauseous. She tells me she has not been eating well and generally not feeling good. She also notes that the room has been spinning every time she closes her eyes and she feels dizzy. This makes her feel more nauseous. She has any fever or chills. She denies any history of vertigo. She denies any new numbness or tingling. She has chronic neuropathy of her feet but this is unchanged. Patient does have a rash on her arms. She states this is typical rash associated with light sensitivity with her lupus. She denies any pain with it. Notified by nursing staff that patient's family arrived. They are concerned that her speech has been garbled for couple days and may be had a stroke. [facility] Medical History Sleep apnea Anxiety Depression Rheumatoid arthritis Migraines Amputation of toe of left foot Wears contact lenses Wears glasses Connective tissue disease Walker as ambulation aid Ambulates with cane Arthritis History of IBS Heartburn Non-smoker CPAP (continuous positive airway pressure) dependence Fibromyalgia Sjogren syndrome with dental involvement Sjogren syndrome with keratoconjunctivitis Sjogren syndrome with peripheral nervous system involvement Lupus Home Medications ?Medication ?Instructions ?Recorded ?Last Taken ?Type cyclobenzaprine 10 mg tablet 10 mg PO TID PRN MUSCLE SPASMS 04/15/20 03/03/25 History duloxetine 60 mg capsule,delayed 120 mg PO DAILY mood 04/15/20 03/04/25 History release estradiol 1 mg tablet 1 mg PO DAILY .` 04/15/20 03/04/25 History gabapentin 300 mg capsule 300 mg PO BID ` 04/15/20 03/03/25 History hydroxychloroquine 200 mg tablet 200 mg PO BID ` 04/15/20 03/04/25 History lorazepam 1 mg tablet 1 mg PO DAILY PRN Anxiety 04/15/20 03/03/25 History zolpidem 10 mg tablet 10 mg PO QHS ` 04/15/20 03/03/25 History hydroxyzine HCl 25 mg tablet 12.5 - 50 mg PO TID PRN PRN anxiety 02/21/25 03/03/25 History ceftriaxone 2 gram intravenous 2 g IV DAILY . 40 days 02/24/25 03/04/25 Rx solution metronidazole 500 mg tablet 500 mg PO TID ` 40 days #120 tabs 02/24/25 03/04/25 Rx vancomycin 1 gram/200 mL in 1,000 mg IV Q8H see dr 40 days 02/24/25 Unknown Rx dextrose 5 % intravenous piggyback #8,000 mL nystatin 100,000 unit/mL oral 500,000 unit (5 mL) PO 4X/DAY ` 10 02/25/25 Unknown Rx suspension days #200 mL oxycodone 5 mg tablet 5 mg PO Q4H PRN PRN Pain Score 02/25/25 03/03/25 Rx 4-10 3 days #10 tabs Allergy/AdvReac Type Severity Reaction Status Date / Time Gadolinium-MRI Contrast Allergy Intermediate Hives Verified 03/04/25 14:20 Medium (CONTRAST) Iodinated Contrast Media (CT) Allergy Rash Verified 03/04/25 14:20 morphine Allergy Hives Verified 03/04/25 14:20 sertraline (From Zoloft) Allergy Swelling Verified 03/04/25 14:20 Family History Father Pseudocholinesterase deficiency Prostate cancer Mother CAD (coronary artery disease) Heart disease Hypertension Breast cancer Lupus Surgical History H/O wisdom tooth extraction H/O tubal ligation History of hysterectomy Hx of cholecystectomy Hx of Achilles tendon repair Social History household members: spouse Smoking Status: Never smoker alcohol intake: never substance use type: does not use ROS ROS ED Constitutional Constitutional ED: Denies chills or fever(s) Cardiovascular Cardiovascular: Denies chest pain Respiratory/Chest Respiratory/Chest: Denies cough or dyspnea Gastrointestinal Gastrointestinal: Reports abdominal pain, diarrhea and nausea; Denies vomiting Musculoskeletal Musculoskeletal: Reports myalgias; Denies arthralgias Integumentary Reports rash and other Details: right foot wound with wound vac Neurologic Neurologic: Reports headache(s), paresthesias and other Details: vertigo ; Denies weakness Hematologic/Lymphatic Hematologic/Lymphatic: Denies easy bleeding or easy bruising EXAM Physical Exam Const Vital Signs: 03/04/25 14:18 03/04/25 17:20 03/04/25 18:00 Temperature 97.9 F 97.7 F L 97.7 F L Temperature Source Oral Oral Oral Pulse Rate 104 H 92 79 Respiratory Rate 18 18 16 Blood Pressure 147/80 H 164/91 H 160/85 H Blood Pressure Mean 102 115 110 Pulse Ox 97 97 97 Oxygen Delivery Method Room Air Room Air Room Air 03/04/25 19:00 03/04/25 20:00 03/04/25 20:00 Temperature 97.8 F 97.7 F L 97.7 F L Temperature Source Oral Oral Pulse Rate 80 83 83 Respiratory Rate 18 18 18 Blood Pressure 161/80 H 166/89 H 166/89 H Blood Pressure Mean 107 114 114 Pulse Ox 99 98 98 Oxygen Delivery Method Room Air Room Air Positive well nourished and well developed General Appearance ED: well developed and NAD HEENT Reports TM's clear and moist mucous membranes normocephalic and atraumatic Tympanic Membrane ED: Yes TM's clear Eyes EOMs intact bilaterally Eyes Narrative: Patient slightly asymmetric pupils, right slightly larger than the left. They are both equally reactive to light. Horizontal fatiguing nystagmus with quick leftward gaze present. This does reproduce her symptoms of dizziness/room spinning Neck supple Neck Narrative: No meningeal signs. Resp normal respiratory effort and clear to auscultation bilaterally Cardio regular rate and regular rhythm GI non-tender and non-distended Auscultation: normoactive bowel sounds Palpation: Negative for tender or guarding Extremity full ROM Extremity Narrative: Wound VAC present as well as Kiran wrap on the right foot. No peripheral edema appreciated. Neuro moves all extremities Sensorium / Orientation: alert Motor Exam: general weakness Psych thought process normal Mood & Affect: anxious Skin Skin Narrative: Erythematous nonwarm nontender rash on the sun exposed dorsal aspects of the upper extremities consistent with photosensitivity reaction MDM MDM MDM Narrative Medical decision making narrative: Patient is a 59-year-old female with a relatively extensive recent past medical history of receiving vancomycin as well as Rocephin through PICC line. Has an infected right foot. Has been feeling more. Is also been having diarrhea. Having decreased oral intake. Differential includes OREN, C. difficile colitis, medication toxicity, electrolyte abnormality, encephalopathy. Patient and family were concerned that she had a stroke because apparently her speech sounded different earlier. At this time patient does not have any symptoms consistent with ACS and they said her speech has been intermittently off for couple days now. I will obtain CT of the brain to rule out any large intracranial process or hemorrhage however her NIH is 0 and I have much lower suspicion for ACS and suspect this is more metabolic. Patient does have a leukocytosis of 13.1. She has anemia with a hemoglobin of 9.9 which is stable. BMP shows significant renal failure with the creatinine of 4.83 and a BUN of 27. 9 days ago patient's BUN was 5 and her creatinine was 0.67. Her Vanco trough is checked (patient is not 100 vancomycin today) and her level is 99. I suspect she has vancomycin toxicity as well. This would correspond with patient presenting with vertigo. Case discussed with hospitalist, Dr. Moralez Lab Data Attestation: I reviewed the patient's lab results. Labs: Laboratory Results - last 24 hr 03/04/25 03/04/25 16:43 17:09 WBC 13.1 H RBC 3.55 L Hgb 9.9 L Hct 30.2 L MCV 85.1 MCH 27.9 MCHC 32.8 RDW Std Deviation 42.9 RDW Coeff of Jennifer 13.6 Plt Count TNP MPV 9.9 Immature Gran % (Auto) 0.500 Neut % (Auto) 64.6 Lymph % (Auto) 19.7 [place] % (Auto) 9.9 Eos % (Auto) 4.7 Baso % (Auto) 0.6 Absolute Neuts (auto) 8.5 H Absolute Lymphs (auto) 2.57 Nucleated RBC % 0 Differential Comment SCANNED Platelet Estimate ADEQUATE Sodium 139 Potassium 4.2 Chloride 103 Carbon Dioxide 23.2 Anion Gap 14 BUN 27 H Creatinine 4.83 H Est GFR (MDRD) Non-Af 10 L BUN/Creatinine Ratio 5.6 L Glucose 84 Lactic Acid < 1.0 Calcium 8.9 Total Bilirubin < 0.15 AST 19 ALT 7 Alkaline Phosphatase 106 H Total Protein 7.3 Albumin 3.5 Globulin 3.8 Albumin/Globulin Ratio 0.9 Vancomycin Trough 99.0 H Radiography Diagnostic Testing: Clinical Impression(s) from Imaging Studies Brain CT 03/04/25 17:59 IMPRESSION: NO ACUTE FINDINGS Reading Location: [facility] Management Discussion w/another healthcare provider: [facility] [employer] (Dr Reyes) Discharge Plan Dx/Rx/DC Orders Clinical Impression: Acute renal failure, Vancomycin-induced nephrotoxicity, Vertigo Disposition Disposition: [facility] Discharge Date/Time: 03/04/25 20:31
[2025-03-04 17:03] LABS: Absolute Lymphocyte Count 2.57 X10^3/uL (0.83-4.51); Absolute Neutrophil Count 8.5 X10^3/uL (2.0-7.7); Basophil# 0.08 X10^3/uL; Basophil% 0.6 % (0-1); Eosinophil# 0.61 X10^3/uL; Eosinophils% 4.7 % (0-5); Hematocrit 30.2 % (37-47); Hemoglobin 9.9 g/dL (12.0-15.0); Lymphocyte # 2.57 X10^3/ul (0.83-4.51); Lymphocyte % 19.7 % (19-41); Mean Corp Hgb Conc 32.8 g/dL (32-36); Mean Corpuscular Hgb 27.9 pg (27.0-32.0); Mean Corpuscular Volume 85.1 fL (81-99); Mean Platelet Vol. 9.9 fl (6.2-12.0); Monocyte# 1.29 X10^3/uL; Monocyte% 9.9 % (0-10); NRBC Flagged by Analyzer 0 % (0-5); Neutrophil # 8.45 X10^3/uL (2.7-7.7); Neutrophil % 64.6 % (47-70); POSITIVE COUNT YES; RBC Distribution Width CV 13.6 % (11.6-14.6); RBC Distribution Width SD 42.9 fl (35.1-43.9); Red Blood Count 3.55 M/mm3 (4.2-5.4); White Blood Count 13.1 K/mm3 (4.4-11.0)
[2025-03-04 17:20] VITALS: BP 164/91; PULSE 92; RESP 18; TEMP 36.5; O2SAT 97
[2025-03-04 17:29] LABS: Differential Indicated SCAN CRITERIA MET
[2025-03-04 17:31] LABS: ALB/GLOB Ratio 0.9 RATIO (0.9-2.4); AST(SGOT) 19 U/L (<=31); Alanine Aminotransfer ALT/SGPT 7 U/L (<=34); Albumin, Serum 3.5 g/dL (3.5-5.0); Alkaline Phosphatase 106 U/L (35-104); Anion Gap 14 (5-15); BUN 27 mg/dL (4-19); BUN/Creat Ratio 5.6 RATIO (10-20); Calcium,Total 8.9 mg/dL (7.6-11.0); Carbon Dioxide 23.2 mmol/L (21.0-32.0); Chloride 103 mmol/L (98-108); Creatinine, Serum 4.83 mg/dL (0.70-1.20); EST Glomerular Filtration Rate 10 (>60); Globulin 3.8 g/dL (2.2-4.2); Glucose 84 mg/dL (70-99); Potassium 4.2 mmol/L (3.3-5.1); Protein, Total 7.3 g/dL (5.9-8.4); Sodium Level 139 mmol/L (133-145); Total Bilirubin < 0.15 mg/dL (0.00-1.30)
[2025-03-04] MEDS: Meclizine HCl 25 MG Tablet PO (17:41)
[2025-03-04] MEDS: Ondansetron 4 MG/2 ML Vial IV (17:42)
[2025-03-04] MEDS: 0.9% Normal Saline (1000mL) 1,000 ML 1000 ML IV (17:42)
[2025-03-04 17:47] VITALS: BMI 37.7
[2025-03-04 17:51] LABS: Lactic Acid < 1.0 mmol/L (0.0-2.0)
--- NOTE | 2025-03-04 17:59 | CT_ITS ---
PROCEDURE: BRAIN/HEAD WITHOUT CONTRAST 03/04/2025 REASON FOR EXAM: CONFUSION TECHNIQUE: Head CT without intravenous contrast. Coronal and Sagittal reconstruction series were provided. One or more dose reduction techniques were used (e.g., Automated exposure control, adjustment of the mA and/or kV according to patient size, use of iterative reconstruction technique. RADIATION DOSE SUMMARY: CTDlvol: 45 mGy DLP: 846 mGycm COMPARISON: None FINDINGS: Brain: Within normal limits for age CSF Spaces: Normal Sinuses/Mastoids: Clear at visualized levels Bones: Unremarkable CT/Brain/Head without Contrast IMPRESSION: NO ACUTE FINDINGS Reading Location: [facility]
[2025-03-04 18:00] VITALS: BP 160/85; PULSE 79; RESP 16; TEMP 36.5; O2SAT 97
[2025-03-04 19:00] VITALS: BP 161/80; PULSE 80; RESP 18; TEMP 36.6; O2SAT 99
--- NOTE | 2025-03-04 19:01 | CASEMGMT ---
Social Work Initial CM assessment was completed less than 30 days ago. SW verified that all information remains accurate. No further needs identified at this time. Elham Guthrie, ENTRY MANAGER, PAD CUTTER
[2025-03-04 20:00] VITALS: BP 166/89; PULSE 83; RESP 18; TEMP 36.5; O2SAT 98
--- NOTE | 2025-03-04 20:18 | PCM.HP.STD ---
HPI - General General Date of Admission: 03/04/25 HPI Narrative CHAPO PEREZ, is a 59 F who presents to the hospital with acute renal failure. She was recently admitted for acute right foot osteomyelitis and possible septic arthritis, she had surgery with podiatry and started on antibiotics. She was discharged on 02/25/2025 on Rocephin, vancomycin, p.o. Flagyl. She presents today with diarrhea and dizziness. Her creatinine on admission to the ER is 4.83, prior to discharge was 0.67. Vancomycin level is 99 mcg /mL. She has also been noticing about 6 episodes of diarrhea daily, she is still making urine and states that she is trying to drink is much as she can. Dizziness has improved with IV fluids. She also does have a little bit of a leukocytosis though it is unclear as to the significance at this time. [facility] Medical History Sleep apnea Anxiety Depression Rheumatoid arthritis Migraines Amputation of toe of left foot Wears contact lenses Wears glasses Connective tissue disease Walker as ambulation aid Ambulates with cane Arthritis History of IBS Heartburn Non-smoker CPAP (continuous positive airway pressure) dependence Fibromyalgia Sjogren syndrome with dental involvement Sjogren syndrome with keratoconjunctivitis Sjogren syndrome with peripheral nervous system involvement Lupus Home Medications ?Medication ?Instructions ?Recorded ?Last Taken ?Type cyclobenzaprine 10 mg tablet 10 mg PO TID PRN MUSCLE SPASMS 04/15/20 03/03/25 History duloxetine 60 mg capsule,delayed 120 mg PO DAILY mood 04/15/20 03/04/25 History release estradiol 1 mg tablet 1 mg PO DAILY .` 04/15/20 03/04/25 History gabapentin 300 mg capsule 300 mg PO BID ` 04/15/20 03/03/25 History hydroxychloroquine 200 mg tablet 200 mg PO BID ` 04/15/20 03/04/25 History lorazepam 1 mg tablet 1 mg PO DAILY PRN Anxiety 04/15/20 03/03/25 History zolpidem 10 mg tablet 10 mg PO QHS ` 04/15/20 03/03/25 History hydroxyzine HCl 25 mg tablet 12.5 - 50 mg PO TID PRN PRN anxiety 02/21/25 03/03/25 History ceftriaxone 2 gram intravenous 2 g IV DAILY . 40 days 02/24/25 03/04/25 Rx solution metronidazole 500 mg tablet 500 mg PO TID ` 40 days #120 tabs 02/24/25 03/04/25 Rx vancomycin 1 gram/200 mL in 1,000 mg IV Q8H see 40 days 02/24/25 Unknown Rx dextrose 5 % intravenous piggyback #8,000 mL nystatin 100,000 unit/mL oral 500,000 unit (5 mL) PO 4X/DAY ` 10 02/25/25 Unknown Rx suspension days #200 mL oxycodone 5 mg tablet 5 mg PO Q4H PRN PRN Pain Score 02/25/25 03/03/25 Rx 4-10 3 days #10 tabs Allergy/AdvReac Type Severity Reaction Status Date / Time Gadolinium-MRI Contrast Allergy Intermediate Hives Verified 03/04/25 14:20 Medium (CONTRAST) Iodinated Contrast Media (CT) Allergy Rash Verified 03/04/25 14:20 morphine Allergy Hives Verified 03/04/25 14:20 sertraline (From Zoloft) Allergy Swelling Verified 03/04/25 14:20 Family History Father Pseudocholinesterase deficiency Prostate cancer Mother CAD (coronary artery disease) Heart disease Hypertension Breast cancer Lupus Surgical History H/O wisdom tooth extraction H/O tubal ligation History of hysterectomy Hx of cholecystectomy Hx of Achilles tendon repair Social History household members: spouse Smoking Status: Never smoker alcohol intake: never substance use type: does not use ROS Constitutional Constitutional: Denies chills, fatigue, fever(s) or malaise Eyes Eyes: Denies blurry vision ENT HEENT: Denies headache(s) or nasal discharge Cardiovascular Cardiovascular: Reports lightheadedness; Denies chest pain, dyspnea on exertion or syncope Respiratory/Chest Respiratory/Chest: Denies cough, shortness of breath at rest or shortness of breath with exertion Gastrointestinal Gastrointestinal: Reports diarrhea; Denies constipation, nausea or vomiting Genitourinary Genitourinary: Denies dysuria Neurologic Neurologic: Denies focal weakness, numbness or tremor(s) Psychiatric Psychiatric: Denies anxiety or depression Vital Signs Vital Signs Vital Signs: 03/04/25 14:18 03/04/25 17:20 03/04/25 18:00 Temperature 97.9 F 97.7 F L 97.7 F L Temperature Source Oral Oral Oral Pulse Rate 104 H 92 79 Respiratory Rate 18 18 16 Blood Pressure 147/80 H 164/91 H 160/85 H Blood Pressure Mean 102 115 110 Pulse Ox 97 97 97 Oxygen Delivery Method Room Air Room Air Room Air 03/04/25 19:00 03/04/25 20:00 03/04/25 20:00 Temperature 97.8 F 97.7 F L 97.7 F L Temperature Source Oral Oral Pulse Rate 80 83 83 Respiratory Rate 18 18 18 Blood Pressure 161/80 H 166/89 H 166/89 H Blood Pressure Mean 107 114 114 Pulse Ox 99 98 98 Oxygen Delivery Method Room Air Room Air Weight Weight: 248 lb 0.321 oz Body Mass Index (BMI) 37.7 Physical Exam Narrative General: Alert, Oriented x3, Cooperative, No apparent distress HEENT: Atraumatic, PERRLA, EOMI, Normocephalic Oral: Dry mucosa Neck: Supple, No JVD Lungs: Diminished, Normal air movement, No rhonchi, No wheeze, No rales Cardiovascular: Regular rate, Regular Rhythm, Normal S1, Normal S2, No murmurs Abdomen: Soft, Non Tender, Non-Distended, No Hepato-splenomegaly Extremities: No edema, Capillary Refill Less than 3 Seconds Skin: Right foot dressing intact with wound VAC attached and functional Musculoskeletal: No Tenderness to Palpation of Joints or Extremities Neurological: No focal neurological deficits, Motor Exam 5/5 strength throughout, Sensory exam intact to light touch and pain Psych/Mental Status: Normal Affect, Appropriate Results Lab / Micro Data 03/04/25 16:43 03/04/25 16:43 Labs: Laboratory Results - last 24 hr 03/04/25 16:43: WBC 13.1 H, RBC 3.55 L, Hgb 9.9 L, Hct 30.2 L, MCV 85.1, MCH 27.9, MCHC 32.8, RDW Std Deviation 42.9, RDW Coeff of Jennifer 13.6, Plt Count 307, MPV 9.9, Immature Gran % (Auto) 0.500, Neut % (Auto) 64.6, Lymph % (Auto) 19.7, [place] % (Auto) 9.9, Eos % (Auto) 4.7, Baso % (Auto) 0.6, Absolute Neuts (auto) 8.5 H, Absolute Lymphs (auto) 2.57, Nucleated RBC % 0, Sodium 139, Potassium 4.2, Chloride 103, Carbon Dioxide 23.2, Anion Gap 14, BUN 27 H, Creatinine 4.83 H, Est GFR (MDRD) Non-Af 10 L, BUN/Creatinine Ratio 5.6 L, Glucose 84, Calcium 8.9, Total Bilirubin < 0.15, AST 19, ALT 7, Alkaline Phosphatase 106 H, Total Protein 7.3, Albumin 3.5, Globulin 3.8, Albumin/Globulin Ratio 0.9 03/04/25 17:09: Lactic Acid < 1.0, Vancomycin Trough 99.0 H Micro: Microbiology 03/04/25 15:56 Mucosa - Nose SARS-CoV-2, Influenza & RSV (PCR) - Final Imaging Radiology Impression Brain CT 03/04/25 17:59 IMPRESSION: NO ACUTE FINDINGS Reading Location: [facility] Assessment & Plan Assessment/Plan (1) Osteomyelitis of foot, right, acute: (2) Acute renal failure: PLAN: Plan 1. Acute renal failure secondary to ATN from vancomycin/right foot osteomyelitis with midfoot septic arthritis status post intervention 02/22/2025 ? Will obtain a FENa to confirm intrinsic renal failure as well as recheck a BMP in the morning ? Continue with IV fluids ? Will consult infectious disease for antibiotic modification ? Consult wound care ? Surgical cultures are still pending 2. Sjogren's/lupus ? Continue with her Plaquenil and her other medications when verified ? Will continue with the nystatin as she had thrush on her previous admission ? Will hold her gabapentin and Flexeril secondary to renal failure 3. Anxiety/depression ? Stable ?Can restart her home medications DVT: Heparin 75 minutes was spent on direct patient care, including documentation as well as chart review and collaboration with colleagues Charges/Coding Visit Charges Inpatient E&M: 66957 Init Hosp L3
[2025-03-04 20:59] VITALS: BP 165/88; PULSE 96; RESP 18; TEMP 36.6; O2SAT 97
[2025-03-04 21:04] LABS: Differential Comment SCANNED
[2025-03-04 21:05] LABS: Platelet Estimate ADEQUATE (ADEQ)
[2025-03-04 21:11] VITALS: BMI 39.6
[2025-03-04] MEDS: 0.9% Normal Saline (1000mL) 1,000 ML 100 ML IV (23:19)
[2025-03-04] MEDS: metroNIDAZOLE 500 MG Tablet PO (23:31)
[2025-03-04] MEDS: Heparin Injection (Vial) 5,000 UNIT/ML VIAL 5000 UNIT SC (23:33)
[2025-03-04] MEDS: NYSTATIN 500,000 UNIT/5 ML UDC 500000 UNIT PO (23:33)
[2025-03-05 02:56] LABS: Urine Chloride 34 mmol/L (Not Establ.); Urine Potassium 6.1 mmol/L (Not Establ.); Urine Sodium 41 mmol/L (Not Establ.)
[2025-03-05 03:00] VITALS: BP 133/84; PULSE 92; RESP 16; TEMP 36.7; O2SAT 94
[2025-03-05] MEDS: Acetaminophen 325 MG Tablet 650 MG PO ×2 (03:45→09:50)
[2025-03-05] MEDS: oxyCODONE 5 MG Tablet PO (04:12)
[2025-03-05] MEDS: metroNIDAZOLE 500 MG Tablet PO ×2 (06:36→14:13)
[2025-03-05] MEDS: Heparin Injection (Vial) 5,000 UNIT/ML VIAL 5000 UNIT SC ×3 (06:36→22:12)
[2025-03-05 06:45] LABS: Absolute Lymphocyte Count 2.63 X10^3/uL (0.83-4.51); Absolute Neutrophil Count 6.9 X10^3/uL (2.0-7.7); Basophil% 0.9 % (0-1); Eosinophil# 0.53 X10^3/uL; Eosinophils% 4.6 % (0-5); Hematocrit 27.5 % (37-47); Hemoglobin 8.7 g/dL (12.0-15.0); Lymphocyte # 2.63 X10^3/ul (0.83-4.51); Mean Corp Hgb Conc 31.6 g/dL (32-36); Mean Corpuscular Hgb 27.6 pg (27.0-32.0); Mean Corpuscular Volume 87.3 fL (81-99); Mean Platelet Vol. 8.8 fl (6.2-12.0); Monocyte% 10.5 % (0-10); NRBC Flagged by Analyzer 0 % (0-5); Neutrophil # 6.92 X10^3/uL (2.7-7.7); Neutrophil % 60.7 % (47-70); Platelet Count 330 K/mm3 (150-450); RBC Distribution Width CV 13.6 % (11.6-14.6); RBC Distribution Width SD 43.4 fl (35.1-43.9); Red Blood Count 3.15 M/mm3 (4.2-5.4); White Blood Count 11.4 K/mm3 (4.4-11.0)
[2025-03-05 07:08] LABS: Anion Gap 12 (5-15); BUN 24 mg/dL (4-19); BUN/Creat Ratio 5.2 RATIO (10-20); Calcium,Total 8.3 mg/dL (7.6-11.0); Carbon Dioxide 21.1 mmol/L (21.0-32.0); Chloride 107 mmol/L (98-108); Creatinine, Serum 4.63 mg/dL (0.70-1.20); EST Glomerular Filtration Rate 10 (>60); Estimated Creatinine Clearance 17.68 ml/min (50-250); Glucose 90 mg/dL (70-99); Potassium 3.7 mmol/L (3.3-5.1); Sodium Level 141 mmol/L (133-145)
--- NOTE | 2025-03-05 08:53 | WOUNDNOTE ---
wound photo: right foot
--- NOTE | 2025-03-05 08:54 | WOUNDNOTE ---
wound photo: right 2nd toe
--- NOTE | 2025-03-05 08:55 | WOUNDNOTE ---
wound photo: right foot
--- NOTE | 2025-03-05 08:56 | WOUNDNOTE ---
wound photo: left heel fissure
[2025-03-05 09:00] VITALS: BP 121/71; PULSE 85; RESP 18; TEMP 36.6; O2SAT 93
[2025-03-05] MEDS: Hydroxychloroquine 200 MG Tablet PO ×2 (09:09→16:43)
[2025-03-05] MEDS: Estradiol 1 MG Tablet PO (09:09)
[2025-03-05] MEDS: DULoxetine Hcl 60 MG Capsule 120 MG PO (09:09)
[2025-03-05] MEDS: 0.9% Normal Saline (1000mL) 1,000 ML 100 ML IV (09:09)
--- NOTE | 2025-03-05 10:21 | US_ITS ---
PROCEDURE: KIDNEY AND BLADDER 03/05/2025 REASON FOR EXAM: OREN TECHNIQUE: Ultrasound imaging of Kidney and bladder. COMPARISON: None available FINDINGS: The right kidney measures 12 x 6.4 x 6.9 cm with a cortical thickness of 1.9 cm and appears within limits for size and echogenicity without stones, hydronephrosis or perinephric edema seen. The left kidney measures 12.2 x 6 x 6.8 cm with a cortical thickness of 1.4 cm and appears within limits for size and echogenicity without stones, hydronephrosis or perinephric edema seen. Bladder volume 136 cc. Wall appears mildly thick at 5-6 mm. The bladder otherwise appears within limits. The right and left distal ureters are not visualized. Bilateral ureteral jets are seen during imaging. No free fluid seen. US/Kidney and Bladder IMPRESSION: Bladder volume 136 cc. Wall appears mildly thick at 5-6 mm which may be inflamm atory or infectious, clinically correlate. The bladder otherwise appears within limits. Reading Location: [id number]
--- NOTE | 2025-03-05 11:19 | PN.HOSP_ITS ---
Reason for Visit Reason for Visit: Diagnoses Other acute osteomyelitis, right ankle and foot (03/04/25) Acute kidney failure, unspecified (03/04/25) Subjective Subjective Saw patient at bedside this morning, present. Patient was mildly fatigued appearing but otherwise sitting back comfortably in bed, conversing normally, in no acute distress. Stated that she does not feel slightly improved today compared yesterday. However, she generally still feels somewhat off compared to her baseline. Has had significant urine output since admission. Denies any fevers or chills. Denies any new pain or discomfort. No other new concerns this morning. Objective Data Objective Data Vital Signs: Vital Signs Temp Pulse Resp BP Pulse Ox O2 Del Method 97.9 F 85 18 121/71 H 93 Room Air 03/05/25 09:00 03/05/25 09:00 03/05/25 09:00 03/05/25 09:00 03/05/25 09:00 03/05/25 09:00 Oxygen Delivery Method Room Air Weight: 118.2 kg Body Mass Index (BMI) 39.6 Intake & Output: Intake and Output for Last 24 Hours 03/03/25 03/04/25 03/05/25 23:59 23:59 23:59 Intake Total 1000 / 1000 983.33 / 983.33 Output Total 3000 / 3000 Balance 1000 / 0 - / - Lab / Micro Data 03/05/25 06:30 03/05/25 06:30 Labs: Laboratory Results - last 24 hr 03/04/25 16:43: WBC 13.1 H, RBC 3.55 L, Hgb 9.9 L, Hct 30.2 L, MCV 85.1, MCH 27.9, MCHC 32.8, RDW Std Deviation 42.9, RDW Coeff of Jennifer 13.6, Plt Count TNP, MPV 9.9, Immature Gran % (Auto) 0.500, Neut % (Auto) 64.6, Lymph % (Auto) 19.7, [place] % (Auto) 9.9, Eos % (Auto) 4.7, Baso % (Auto) 0.6, Absolute Neuts (auto) 8.5 H, Absolute Lymphs (auto) 2.57, Nucleated RBC % 0, Differential Comment SCANNED, Platelet Estimate ADEQUATE, Sodium 139, Potassium 4.2, Chloride 103, Carbon Dioxide 23.2, Anion Gap 14, BUN 27 H, Creatinine 4.83 H, Est GFR (MDRD) Non-Af 10 L, BUN/Creatinine Ratio 5.6 L, Glucose 84, Calcium 8.9, Total Bilirubin < 0.15, AST 19, ALT 7, Alkaline Phosphatase 106 H, Total Protein 7.3, Albumin 3.5, Globulin 3.8, Albumin/Globulin Ratio 0.9 03/04/25 17:09: Lactic Acid < 1.0, Vancomycin Trough 99.0 H 03/05/25 01:49: Ur Random Sodium 41, Urine Creatinine 25.20 L, Urine Potassium 6.1, Urine Chloride 34 03/05/25 06:30: WBC 11.4 H, RBC 3.15 L, Hgb 8.7 L, Hct 27.5 L, MCV 87.3, MCH 27.6, MCHC 31.6 L, RDW Std Deviation 43.4, RDW Coeff of Jennifer 13.6, Plt Count 330, MPV 8.8, Immature Gran % (Auto) 0.300, Neut % (Auto) 60.7, Lymph % (Auto) 23.0, [place] % (Auto) 10.5 H, Eos % (Auto) 4.6, Baso % (Auto) 0.9, Absolute Neuts (auto) 6.9, Absolute Lymphs (auto) 2.63, Nucleated RBC % 0, Sodium 141, Potassium 3.7, Chloride 107, Carbon Dioxide 21.1, Anion Gap 12, BUN 24 H, Creatinine 4.63 H, E stim Creat Clear Calc 17.68 L, Est GFR (MDRD) Non-Af 10 L, BUN/Creatinine Ratio 5.2 L, Glucose 90, Calcium 8.3 Micro: Microbiology 03/04/25 15:56 Mucosa - Nose SARS-CoV-2, Influenza & RSV (PCR) - Final Radiography Diagnostic Testing: Radiology Impression Brain CT 03/04/25 17:59 IMPRESSION: NO ACUTE FINDINGS [facility] Physical Exam Const alert, oriented x3 and no apparent distress Constitutional Narrative: Upper middle-aged female, class II obesity, mildly fatigued appearing but otherwise sitting back comfortably in bed, conversing normally, in no acute distress. General Appearance: cooperative and comfortable HEENT normocephalic, head/scalp atraumatic, hearing grossly normal bilaterally, nasal mucous membranes and turbinates normal and moist oral mucous membranes Eyes PERRL, EOMs intact bilaterally and conjunctivae normal Neck full ROM Chest inspection of chest normal Resp normal respiratory effort, normal air movement, no use of accessory muscles and clear to auscultation bilaterally Cardio regular rate, regular rhythm, no murmurs and peripheral pulses 2+ throughout GI normal to inspection, nondistended, normoactive bowel sounds, soft to palpation, non-tender and non-distended Back/Spine normal ROM Extremity normal to inspection, full ROM and no pedal edema Skin no rashes or lesions noted Psych mental status grossly normal Assessment & Plan Assessment/Plan (1) Acute renal failure: PLAN: Plan Patient is a 59-year-old female who presented [facility] ED on 03/04/2025 with generalized fatigue and intermittent diarrhea. 1. Acute renal failure ? Nephrology following. Creatinine 4.83 on admit, baseline 0.6. Notably was at baseline on recent discharge on 02/23. FeNa ~5% consistent with intrinsic disease. Vancomycin level notably was very elevated on admission. Per nephrology, could be vancomycin induced nephrotoxicity but cannot rule out infectious related glomerulonephritis. Renal ultrasound ordered to rule out postobstructive cause. Continue maintenance IV fluids for now. Importantly has had good urine output since admission. Further urine studies pending. Continue to monitor daily BMP and urine output. 2. Recent right foot osteomyelitis with septic arthritis ? Podiatry, infectious disease and wound care consulted. Patient with recent hospitalization for right foot septic arthritis with osteomyelitis. S/p partial right second toe amputation and debridement of infectious tissue on 02/22. Wound cultures grew MRSA, corynebacter and group B strep. Discharged home on regimen of vancomycin/ceftriaxone/Flagyl with PICC line in place. Holding antibiotics for now, appreciate ID recommendations on antibiotic regimen at this time. Gabapentin on hold given acute renal failure as above. 3. Chronic normocytic anemia ? Hemoglobin stable at baseline around 9 on admission. 4. Intermittent diarrhea ? Reportedly had intermittent diarrhea for the past few days prior to admission. No significant odor to the diarrhea and did not have profuse diarrhea. Stool sample ordered but has not been collected yet as patient has not had any further bowel movement since admission. Monitor. 5. Oral thrush ? Continue nystatin swish and swallow. Chronic medical conditions: ? Class II obesity: BMI 39 on admit. Complicates hospital course, care and prognosis. ? Anxiety/depression: Stable. Continue home duloxetine, Ativan daily as needed and zolpidem at night. ? Sjogren's disease/lupus: Continue home hydroxychloroquine. DVT prophylaxis: Heparin subcu CODE STATUS: Full code, verified Expected disposition: Home, TBD Total clinical time spent by myself addressing the patient's medical issues, reviewing all the data, and collaborating with patient's care team: 35 minutes. Charges/Coding Visit Charges Inpatient E&M: 59262 Subs Hosp L2
--- NOTE | 2025-03-05 12:34 | CASEMGMT ---
ENOCH ARMSTRONG Readmission Note Previous Admission: 02/21/25-02/25/25 Diagnosis: Acute osteomyelitis R foot DC Disposition: Home with [facility] Current Admission: Admitted 03/04/25 Current Diagnosis: Renal Failure Pt dc'd to home with [facility] SN from index admission. Pt had R foot debridement, I&D and 2nd toe amputation. Pt dc'd with wound vac and IV atb from [facility]. Pt also was set up with a referral for a mobility scooter through [employer]. Pt returns to [facility] ER with diarrhea and dizziness. Pt was noted to have Cr of 4.83 and was 0.67 upon dc from index admission. Pt vanc level was 99. ENOCH ARMSTRONG into pt room, pt sitting up in bed in no distress with and sister at bedside. Pt agreeable to discussion with visitors present. Pt states that [facility] was seeing her and they did teach her how to do the IV atb. Denies any difficulty with this. Pt was taking her medications as ordered. Pt was supposed to have seen Dr. Underwood and PCP yesterday but was unable due to diarrhea and pt was advised to come to the ER. Pt reports HH was supposed to have come today to complete her blood draw. Wound vac changes were being completed at home. Pt wound vac was removed today. Pt would like to return home with [facility] and [facility]. Pt denies need for other options for providers. Pt reports that she is in the process of delivery for the mobility scooter. Pt did fall once at home using knee scooter and she is anxious to get the mobility scooter. Pt and family deny further needs at this time. ENOCH ARMSTRONG to follow ID recs and wound care. DC Plan: Home with [facility]
--- NOTE | 2025-03-05 12:56 | PCM.CONS.R ---
Assessment & Plan Assessment/Plan (1) Acute renal failure: PLAN: Acute renal failure. Normal baseline creatinine as of a week ago. Came with a creatinine of 4.6 or so. Some urinary hesitancy, we will check a renal ultrasound. Send urine analysis. Vancomycin level was noted to be about 90. It is possible this is vancomycin induced nephrotoxicity. Other possibility include infectious related glomerulonephritis. She denies seeing dark-colored urine. She says she was voiding less yesterday, better today. Workup ordered Urine analysis Renal ultrasound Maintain IV fluids for now Discussed with family at bedside HPI Consult Data Date of Consult: 03/05/25 HPI Narrative Reason for Consultation: OREN HPI Narrative: CHAPO PEREZ, is a 59 F who presents To the hospital with renal failure. Nephrology on consultation in view of acute renal failure. She was recently admitted here with toe infection. Failed outpatient antibiotics. She was discharged on the with IV vancomycin. Prior to that she was on oral Bactrim. At the time of discharge on the , her renal function was normal. Routine blood work showed acute renal failure hence she came back. Creatinine is now around 4.6. She says she is voiding a little more today, was not voiding much yesterday. Denies having any urinary retention. No recent use of NSAIDs, [id number] medications or supplements. Blood pressure has been okay. She has known history of lupus. Follows with rheumatology. Only medication was Plaquenil. She does not use prednisone on a regular basis recently. [facility] Medical History Sleep apnea Anxiety Depression Rheumatoid arthritis Migraines Amputation of toe of left foot Wears contact lenses Wears glasses Connective tissue disease Walker as ambulation aid Ambulates with cane Arthritis History of IBS Heartburn Non-smoker CPAP (continuous positive airway pressure) dependence Fibromyalgia Sjogren syndrome with dental involvement Sjogren syndrome with keratoconjunctivitis Sjogren syndrome with peripheral nervous system involvement Lupus Home Medications ?Medication ?Instructions ?Recorded ?Last Taken ?Type cyclobenzaprine 10 mg tablet 10 mg PO TID PRN MUSCLE SPASMS 04/15/20 03/03/25 History duloxetine 60 mg capsule,delayed 120 mg PO DAILY mood 04/15/20 03/04/25 History release estradiol 1 mg tablet 1 mg PO DAILY .` 04/15/20 03/04/25 History gabapentin 300 mg capsule 300 mg PO BID ` 04/15/20 03/03/25 History hydroxychloroquine 200 mg tablet 200 mg PO BID ` 04/15/20 03/04/25 History lorazepam 1 mg tablet 1 mg PO DAILY PRN Anxiety 04/15/20 03/03/25 History zolpidem 10 mg tablet 10 mg PO QHS ` 04/15/20 03/03/25 History hydroxyzine HCl 25 mg tablet 12.5 - 50 mg PO TID PRN PRN anxiety 02/21/25 03/03/25 History ceftriaxone 2 gram intravenous 2 g IV DAILY . 40 days 02/24/25 03/04/25 Rx solution metronidazole 500 mg tablet 500 mg PO TID ` 40 days #120 tabs 02/24/25 03/04/25 Rx vancomycin 1 gram/200 mL in 1,000 mg IV Q8H see dr 40 days 02/24/25 Unknown Rx dextrose 5 % intravenous piggyback #8,000 mL nystatin 100,000 unit/mL oral 500,000 unit (5 mL) PO 4X/DAY ` 10 02/25/25 Unknown Rx suspension days #200 mL oxycodone 5 mg tablet 5 mg PO Q4H PRN PRN Pain Score 02/25/25 03/03/25 Rx 4-10 3 days #10 tabs Allergy/AdvReac Type Severity Reaction Status Date / Time Gadolinium-MRI Contrast Allergy Intermediate Hives Verified 03/04/25 14:20 Medium (CONTRAST) Iodinated Contrast Media (CT) Allergy Rash Verified 03/04/25 14:20 morphine Allergy Hives Verified 03/04/25 14:20 sertraline (From Zoloft) Allergy Swelling Verified 03/04/25 14:20 Family History Father Pseudocholinesterase deficiency Prostate cancer Mother CAD (coronary artery disease) Heart disease Hypertension Breast cancer Lupus Surgical History H/O wisdom tooth extraction H/O tubal ligation History of hysterectomy Hx of cholecystectomy Hx of Achilles tendon repair Social History household members: spouse Smoking Status: Never smoker alcohol intake: never substance use type: does not use ROS ROS Narrative negative except above Physical Exam Narrative Alert awake oriented x 3 no obvious distress no pallor no icterus no JVD s1s2 no murmurs lungs clear abdomen soft no organomegaly no edema no cyanosis Lab / Micro Data 03/05/25 06:30 03/05/25 06:30 Labs: Laboratory Results - last 24 hr 03/04/25 16:43: WBC 13.1 H, RBC 3.55 L, Hgb 9.9 L, Hct 30.2 L, MCV 85.1, MCH 27.9, MCHC 32.8, RDW Std Deviation 42.9, RDW Coeff of Jennifer 13.6, Plt Count TNP, MPV 9.9, Immature Gran % (Auto) 0.500, Neut % (Auto) 64.6, Lymph % (Auto) 19.7, [place] % (Auto) 9.9, Eos % (Auto) 4.7, Baso % (Auto) 0.6, Absolute Neuts (auto) 8.5 H, Absolute Lymphs (auto) 2.57, Nucleated RBC % 0, Differential Comment SCANNED, Platelet Estimate ADEQUATE, Sodium 139, Potassium 4.2, Chloride 103, Carbon Dioxide 23.2, Anion Gap 14, BUN 27 H, Creatinine 4.83 H, Est GFR (MDRD) Non-Af 10 L, BUN/Creatinine Ratio 5.6 L, Glucose 84, Calcium 8.9, Total Bilirubin < 0.15, AST 19, ALT 7, Alkaline Phosphatase 106 H, Total Protein 7.3, Albumin 3.5, Globulin 3.8, Albumin/Globulin Ratio 0.9 03/04/25 17:09: Lactic Acid < 1.0, Vancomycin Trough 99.0 H 03/05/25 01:49: Ur Random Sodium 41, Urine Creatinine 25.20 L, Urine Potassium 6.1, Urine Chloride 34 03/05/25 06:30: WBC 11.4 H, RBC 3.15 L, Hgb 8.7 L, Hct 27.5 L, MCV 87.3, MCH 27.6, MCHC 31.6 L, RDW Std Deviation 43.4, RDW Coeff of Jennifer 13.6, Plt Count 330, MPV 8.8, Immature Gran % (Auto) 0.300, Neut % (Auto) 60.7, Lymph % (Auto) 23.0, [place] % (Auto) 10.5 H, Eos % (Auto) 4.6, Baso % (Auto) 0.9, Absolute Neuts (auto) 6.9, Absolute Lymphs (auto) 2.63, Nucleated RBC % 0, Sodium 141, Potassium 3.7, Chloride 107, Carbon Dioxide 21.1, Anion Gap 12, BUN 24 H, Creatinine 4.63 H, Estim Creat Clear Calc 17.68 L, Est GFR (MDRD) Non-Af 10 L, BUN/Creatinine Ratio 5.2 L, Glucose 90, Calcium 8.3 Micro: Microbiology 03/04/25 15:56 Mucosa - Nose SARS-CoV-2, Influenza & RSV (PCR) - Final Imaging Radiology Impression Brain CT 03/04/25 17:59 IMPRESSION: NO ACUTE FINDINGS Reading [facility]
[2025-03-05] MEDS: NYSTATIN 500,000 UNIT/5 ML UDC 500000 UNIT PO ×3 (14:13→22:09)
[2025-03-05 14:18] VITALS: BP 132/79; PULSE 92; RESP 16; TEMP 36.6; O2SAT 93
--- NOTE | 2025-03-05 15:49 | PCM.CONS.GEN ---
Assessment & Plan Assessment/Plan (1) Vancomycin-induced nephrotoxicity: (2) Acute renal failure: (3) Osteomyelitis of foot, right, acute: PLAN: Taken to OR 02/22/[address] Underwood for distal 2nd toe amp and I&D of 1st toe and metatarsal. Wound cx with MRSA, corynebacter, and group G strep. Surg cx with MSSA from 1st toe. Discharged with picc and 6 weeks vanc/ceftriaxone/flagyl. Now with OREN with high vanc trough, diarrhea. Foot doing well, podiatry consulted. Diarrhea rapidly resolved, will stop flagyl. Vanc level remains therapeutic so will hold off on adding any additional abx. Will follow, thank you HPI Consult Data Date of Consult: 03/05/25 HPI Narrative Reason for Consultation: osteo HPI Narrative: CHAPO PEREZ, is a 59 F with h/o DM neuropathy, SLE, and CKD, admitted recently for R foot osteo. Taken to OR 02/22/[address] Underwood for distal 2nd toe amp and I&D of 1st toe and metatarsal. Wound cx with MRSA, corynebacter, and group G strep. Surg cx with MRSA. Discharged on vanc/ceftriaxone/flagyl via picc for planned 6 week course. For past few days at home, c/o diarrhea, fatigue, nausea, vomiting, not feeling well. No new rash, no abd pain, no blood in stool. Sent to ED, admitted with OREN. Feeling better today, making urine. Full ROS performed and neg except as noted above. [facility] Medical History Sleep apnea Anxiety Depression Rheumatoid arthritis Migraines Amputation of toe of left foot Wears contact lenses Wears glasses Connective tissue disease Walker as ambulation aid Ambulates with cane Arthritis History of IBS Heartburn Non-smoker CPAP (continuous positive airway pressure) dependence Fibromyalgia Sjogren syndrome with dental involvement Sjogren syndrome with keratoconjunctivitis Sjogren syndrome with peripheral nervous system involvement Lupus Home Medications ?Medication ?Instructions ?Recorded ?Last Taken ?Type cyclobenzaprine 10 mg tablet 10 mg PO TID PRN MUSCLE SPASMS 04/15/20 03/03/25 History duloxetine 60 mg capsule,delayed 120 mg PO DAILY mood 04/15/20 03/04/25 History release estradiol 1 mg tablet 1 mg PO DAILY .` 04/15/20 03/04/25 History gabapentin 300 mg capsule 300 mg PO BID ` 04/15/20 03/03/25 History hydroxychloroquine 200 mg tablet 200 mg PO BID ` 04/15/20 03/04/25 History lorazepam 1 mg tablet 1 mg PO DAILY PRN Anxiety 04/15/20 03/03/25 History zolpidem 10 mg tablet 10 mg PO QHS ` 04/15/20 03/03/25 History hydroxyzine HCl 25 mg tablet 12.5 - 50 mg PO TID PRN PRN anxiety 02/21/25 03/03/25 History ceftriaxone 2 gram intravenous 2 g IV DAILY . 40 days 02/24/25 03/04/25 Rx solution metronidazole 500 mg tablet 500 mg PO TID ` 40 days #120 tabs 02/24/25 03/04/25 Rx vancomycin 1 gram/200 mL in 1,000 mg IV Q8H see dr 40 days 02/24/25 Unknown Rx dextrose 5 % intravenous piggyback #8,000 mL nystatin 100,000 unit/mL oral 500,000 unit (5 mL) PO 4X/DAY ` 10 02/25/25 Unknown Rx suspension days #200 mL oxycodone 5 mg tablet 5 mg PO Q4H PRN PRN Pain Score 02/25/25 03/03/25 Rx 4-10 3 days #10 tabs Allergy/AdvReac Type Severity Reaction Status Date / Time Gadolinium-MRI Contrast Allergy Intermediate Hives Verified 03/04/25 14:20 Medium (CONTRAST) Iodinated Contrast Media (CT) Allergy Rash Verified 03/04/25 14:20 morphine Allergy Hives Verified 03/04/25 14:20 sertraline (From Zoloft) Allergy Swelling Verified 03/04/25 14:20 Family History Father Pseudocholinesterase deficiency Prostate cancer Mother CAD (coronary artery disease) Heart disease Hypertension Breast cancer Lupus Surgical History H/O wisdom tooth extraction H/O tubal ligation History of hysterectomy Hx of cholecystectomy Hx of Achilles tendon repair Social History household members: spouse Smoking Status: Never smoker alcohol intake: never substance use type: does not use Physical Exam Const alert, oriented x3 and no apparent distress General Appearance: cooperative HEENT normocephalic and head/scalp atraumatic Eyes PERRL and EOMs intact bilaterally Neck supple and No nodes Resp normal air movement and clear to auscultation bilaterally Cardio regular rate and regular rhythm GI soft to palpation, non-tender and non-distended Extremity General Extremity: edema Skin no rashes or lesions noted Skin Narrative: wound photos reviewed Neuro CN's II-XII intact bilaterally Lab / Micro Data Attestation: I reviewed the patient's lab results. 03/05/25 06:30 03/05/25 06:30 Labs: Laboratory Results - last 24 hr 03/04/25 16:43: WBC 13.1 H, RBC 3.55 L, Hgb 9.9 L, Hct 30.2 L, MCV 85.1, MCH 27.9, MCHC 32.8, RDW Std Deviation 42.9, RDW Coeff of Jennifer 13.6, Plt Count TNP, MPV 9.9, Immature Gran % (Auto) 0.500, Neut % (Auto) 64.6, Lymph % (Auto) 19.7, Ramsey % (Auto) 9.9, Eos % (Auto) 4.7, Baso % (Auto) 0.6, Absolute Neuts (auto) 8.5 H, Absolute Lymphs (auto) 2.57, Nucleated RBC % 0, Differential Comment SCANNED, Platelet Estimate ADEQUATE, Sodium 139, Potassium 4.2, Chloride 103, Carbon Dioxide 23.2, Anion Gap 14, BUN 27 H, Creatinine 4.83 H, Est GFR (MDRD) Non-Af 10 L, BUN/Creatinine Ratio 5.6 L, Glucose 84, Calcium 8.9, Total Bilirubin < 0.15, AST 19, ALT 7, Alkaline Phosphatase 106 H, Total Protein 7.3, Albumin 3.5, Globulin 3.8, Albumin/Globulin Ratio 0.9 03/04/25 17:09: Lactic Acid < 1.0, Vancomycin Trough 99.0 H 03/05/25 01:49: Ur Random Sodium 41, Urine Creatinine 25.20 L, Urine Potassium 6.1, Urine Chloride 34 03/05/25 06:30: WBC 11.4 H, RBC 3.15 L, Hgb 8.7 L, Hct 27.5 L, MCV 87.3, MCH 27.6, MCHC 31.6 L, RDW Std Deviation 43.4, RDW Coeff of Jennifer 13.6, Plt Count 330, MPV 8.8, Immature Gran % (Auto) 0.300, Neut % (Auto) 60.7, Lymph % (Auto) 23.0, Ramsey % (Auto) 10.5 H, Eos % (Auto) 4.6, Baso % (Auto) 0.9, Absolute Neuts (auto) 6.9, Absolute Lymphs (auto) 2.63, Nucleated RBC % 0, Sodium 141, Potassium 3.7, Chloride 107, Carbon Dioxide 21.1, Anion Gap 12, BUN 24 H, Creatinine 4.63 H, Estim Creat Clear Calc 17.68 L, Est GFR (MDRD) Non-Af 10 L, BUN/Creatinine Ratio 5.2 L, Glucose 90, Calcium 8.3 Micro: Microbiology 03/04/25 15:56 Mucosa - Nose SARS-CoV-2, Influenza & RSV (PCR) - Final Imaging Radiology Impression Brain CT 03/04/25 17:59 IMPRESSION: NO ACUTE FINDINGS Reading Location: [facility]
[2025-03-05 16:23] LABS: Mucous, Urine 0 SEEN /hpf (<or=2+); Red Blood Cells-Urine 0 SEEN /hpf (0-5)
--- NOTE | 2025-03-05 17:01 | PCM.CONS.GEN ---
Assessment & Plan Assessment/Plan (1) Osteomyelitis of foot, right, acute: (2) Other hereditary and idiopathic neuropathies: PLAN: Plan Evaluation performed. Reviewed diagnostic data. Patient has developed acute kidney injury. Despite this, clinically foot looks good and much improved from last admission. We will continue with local wound care. Wound care right foot: Betadine solution to partial 2nd toe amputation and to wound site right 1st ray, overlying gauze, kerlix and trang dressing - change daily. Left heel fissure: Neosporin topically TID. No weightbearing right foot, keep right foot elevated. Infectious Disease is on consult. Podiatry will continue to follow. HPI Consult Data Date of Consult: 03/05/25 HPI Narrative Reason for Consultation: Right foot ulcer/infection HPI Narrative: CHAPO PEREZ, is a 59 F who presented to ER yesterday, found to have OREN, has been admitted for management. She was recently hospitalized for right foot MRSA, strep and corynbacterium infection - found to have osteomyelitis right 2nd toe and 1st ray on right foot. She had partial right 2nd toe amputation, and debridement of 1st ray. She did well with that, was discharged home, has been on vancomycin, Rocephin, and flagyl at home. She developed diarrhea and dizziness. She presented to ER yesterday and admitted. When seeing patient today it was noted she is resting in bed, has episode of nausea and vomiting. Foot is doing well though. Her is at bedside, who has been trying to get patient mobility scooter, relates he was told by supplier it is going to take 4-6 weeks to get it. Podiatry was consulted for continuation of care of right foot. [facility] Medical History Sleep apnea Anxiety Depression Rheumatoid arthritis Migraines Amputation of toe of left foot Wears contact lenses Wears glasses Connective tissue disease Walker as ambulation aid Ambulates with cane Arthritis History of IBS Heartburn Non-smoker CPAP (continuous positive airway pressure) dependence Fibromyalgia Sjogren syndrome with dental involvement Sjogren syndrome with keratoconjunctivitis Sjogren syndrome with peripheral nervous system involvement Lupus Home Medications ?Medication ?Instructions ?Recorded ?Last Taken ?Type cyclobenzaprine 10 mg tablet 10 mg PO TID PRN MUSCLE SPASMS 04/15/20 03/03/25 History duloxetine 60 mg capsule,delayed 120 mg PO DAILY mood 04/15/20 03/04/25 History release estradiol 1 mg tablet 1 mg PO DAILY .` 04/15/20 03/04/25 History gabapentin 300 mg capsule 300 mg PO BID ` 04/15/20 03/03/25 History hydroxychloroquine 200 mg tablet 200 mg PO BID ` 04/15/20 03/04/25 History lorazepam 1 mg tablet 1 mg PO DAILY PRN Anxiety 04/15/20 03/03/25 History zolpidem 10 mg tablet 10 mg PO QHS ` 04/15/20 03/03/25 History hydroxyzine HCl 25 mg tablet 12.5 - 50 mg PO TID PRN PRN anxiety 02/21/25 03/03/25 History ceftriaxone 2 gram intravenous 2 g IV DAILY . 40 days 02/24/25 03/04/25 Rx solution metronidazole 500 mg tablet 500 mg PO TID ` 40 days #120 tabs 02/24/25 03/04/25 Rx vancomycin 1 gram/200 mL in 1,000 mg IV Q8H see 40 days 02/24/25 Unknown Rx dextrose 5 % intravenous piggyback #8,000 mL nystatin 100,000 unit/mL oral 500,000 unit (5 mL) PO 4X/DAY ` 10 02/25/25 Unknown Rx suspension days #200 mL oxycodone 5 mg tablet 5 mg PO Q4H PRN PRN Pain Score 02/25/25 03/03/25 Rx 4-10 3 days #10 tabs Allergy/AdvReac Type Severity Reaction Status Date / Time Gadolinium-MRI Contrast Allergy Intermediate Hives Verified 03/04/25 14:20 Medium (CONTRAST) Iodinated Contrast Media (CT) Allergy Rash Verified 03/04/25 14:20 morphine Allergy Hives Verified 03/04/25 14:20 sertraline (From Zoloft) Allergy Swelling Verified 03/04/25 14:20 Family History Father Pseudocholinesterase deficiency Prostate cancer Mother CAD (coronary artery disease) Heart disease Hypertension Breast cancer Lupus Surgical History H/O wisdom tooth extraction H/O tubal ligation History of hysterectomy Hx of cholecystectomy Hx of Achilles tendon repair Social History household members: spouse Smoking Status: Never smoker alcohol intake: never substance use type: does not use Physical Exam Const alert, oriented x3 and no apparent distress Constitutional Narrative: Right 2nd toe amputation site with intact sutures, no evidence of complication, healing well. Right foot 1st ray debridement - incision site dorsally well coapted and intact sutures doing well, wound plantarly with healthy viable margins and granular base, there is some mild maceration to edges however, no new wounds, no new areas of breakdown, no evidence of ischemia, no blistering, no necrosis. Left heel fissure improved. Lab / Micro Data 03/05/25 06:30 03/05/25 06:30 Labs: Laboratory Results - last 24 hr 03/04/25 16:43: WBC 13.1 H, RBC 3.55 L, Hgb 9.9 L, Hct 30.2 L, MCV 85.1, MCH 27.9, MCHC 32.8, RDW Std Deviation 42.9, RDW Coeff of Jennifer 13.6, Plt Count TNP, MPV 9.9, Immature Gran % (Auto) 0.500, Neut % (Auto) 64.6, Lymph % (Auto) 19.7, Cedar % (Auto) 9.9, Eos % (Auto) 4.7, Baso % (Auto) 0.6, Absolute Neuts (auto) 8.5 H, Absolute Lymphs (auto) 2.57, Nucleated RBC % 0, Differential Comment SCANNED, Platelet Estimate ADEQUATE, Sodium 139, Potassium 4.2, Chloride 103, Carbon Dioxide 23.2, Anion Gap 14, BUN 27 H, Creatinine 4.83 H, Est GFR (MDRD) Non-Af 10 L, BUN/Creatinine Ratio 5.6 L, Glucose 84, Calcium 8.9, Total Bilirubin < 0.15, AST 19, ALT 7, Alkaline Phosphatase 106 H, Total Protein 7.3, Albumin 3.5, Globulin 3.8, Albumin/Globulin Ratio 0.9 03/04/25 17:09: Lactic Acid < 1.0, Vancomycin Trough 99.0 H 03/05/25 01:49: Ur Random Sodium 41, Urine Creatinine 25.20 L, Urine Potassium 6.1, Urine Chloride 34 03/05/25 06:30: WBC 11.4 H, RBC 3.15 L, Hgb 8.7 L, Hct 27.5 L, MCV 87.3, MCH 27.6, MCHC 31.6 L, RDW Std Deviation 43.4, RDW Coeff of Jennifer 13.6, Plt Count 330, MPV 8.8, Immature Gran % (Auto) 0.300, Neut % (Auto) 60.7, Lymph % (Auto) 23.0, Cedar % (Auto) 10.5 H, Eos % (Auto) 4.6, Baso % (Auto) 0.9, Absolute Neuts (auto) 6.9, Absolute Lymphs (auto) 2.63, Nucleated RBC % 0, Sodium 141, Potassium 3.7, Chloride 107, Carbon Dioxide 21.1, Anion Gap 12, BUN 24 H, Creatinine 4.63 H, Estim Creat Clear Calc 17.68 L, Est GFR (MDRD) Non-Af 10 L, BUN/Creatinine Ratio 5.2 L, Glucose 90, Calcium 8.3 Micro: Microbiology 03/04/25 15:56 Mucosa - Nose SARS-CoV-2, Influenza & RSV (PCR) - Final Imaging Radiology Impression Brain CT 03/04/25 17:59 IMPRESSION: NO ACUTE FINDINGS Reading Location: [facility]
[2025-03-05] MEDS: Ondansetron 4 MG/2 ML Vial IV (17:22)
[2025-03-05] MEDS: 0.9% Saline Lock 10 ML Syringe IV ×2 (17:22→22:09)
[2025-03-05 21:18] LABS: Color, Urine Yellow (Yellow); Glucose, Dipstick Normal (Normal); Ketone-Dipstick Negative (Negative); Leukocyte Esterase-Dipstick 25 /ul (Negative); Nitrite-Dipstick Negative (Negative); Occult Blood-Urine Negative /ul (Negative); Protein-Dipstick Negative (Negative); Urine Bilirubin Dipstick Negative (Negative); Urine Clarity Clear (Clear); Urine Urobilinogen Normal (Normal)
[2025-03-05 21:59] LABS: Bacteria 2+ /hpf (None Seen); Squamous Epithelial Cells - UA 0-5 SEEN /hpf (5-10); White Blood Cells 0-5 SEEN /hpf (0-5)
[2025-03-05 22:04] VITALS: BP 141/82; PULSE 86; RESP 18; TEMP 36.6; O2SAT 96
[2025-03-05] MEDS: Neomycin/Bacitracin/Polymyxin Ointment 1 APPLIC TOPICAL (22:13)
[2025-03-05] MEDS: Zolpidem Tartrate 5 MG Tablet 10 MG PO (23:28)
[2025-03-06 04:58] VITALS: BP 143/82; PULSE 83; RESP 16; TEMP 36.5; O2SAT 92
[2025-03-06] MEDS: Heparin Injection (Vial) 5,000 UNIT/ML VIAL 5000 UNIT SC ×3 (05:01→21:40)
[2025-03-06] MEDS: Neomycin/Bacitracin/Polymyxin Ointment 1 APPLIC TOPICAL (05:01)
[2025-03-06 06:11] LABS: Hematocrit 28.4 % (37-47); Hemoglobin 9.1 g/dL (12.0-15.0); Mean Corpuscular Hgb 28.3 pg (27.0-32.0); Mean Corpuscular Volume 88.2 fL (81-99); Mean Platelet Vol. 9.6 fl (6.2-12.0); Platelet Count 349 K/mm3 (150-450); RBC Distribution Width CV 13.6 % (11.6-14.6); RBC Distribution Width SD 44.1 fl (35.1-43.9); Red Blood Count 3.22 M/mm3 (4.2-5.4); White Blood Count 11.1 K/mm3 (4.4-11.0)
[2025-03-06 06:46] LABS: Anion Gap 12 (5-15); BUN 24 mg/dL (4-19); BUN/Creat Ratio 5.4 RATIO (10-20); Calcium,Total 8.6 mg/dL (7.6-11.0); Chloride 109 mmol/L (98-108); Creatinine, Serum 4.55 mg/dL (0.70-1.20); EST Glomerular Filtration Rate 11 (>60); Estimated Creatinine Clearance 17.99 ml/min (50-250); Glucose 92 mg/dL (70-99); Potassium 3.8 mmol/L (3.3-5.1); Sodium Level 143 mmol/L (133-145)
[2025-03-06 08:00] VITALS: BP 135/77; PULSE 83; RESP 18; TEMP 36.4; O2SAT 94
[2025-03-06] MEDS: Ensure Plus High Protein 120 ML LIQUID PO (09:59)
[2025-03-06] MEDS: Hydroxychloroquine 200 MG Tablet PO ×2 (09:59→16:13)
[2025-03-06] MEDS: Gabapentin 100 MG Capsule PO ×2 (09:59→21:39)
[2025-03-06] MEDS: NYSTATIN 500,000 UNIT/5 ML UDC 500000 UNIT PO ×2 (09:59→16:13)
[2025-03-06] MEDS: Estradiol 1 MG Tablet PO (09:59)
[2025-03-06] MEDS: DULoxetine Hcl 60 MG Capsule 120 MG PO (09:59)
--- NOTE | 2025-03-06 10:36 | PCM.PN.HOSP ---
Reason for Visit Reason for Visit: Diagnoses Other hereditary and idiopathic neuropathies (03/04/25) Other acute osteomyelitis, right ankle and foot (03/04/25) Nephropathy induced by other drugs, medicaments and biological substances (03/04/25) Acute kidney failure, unspecified (03/04/25) Adverse effect of other systemic antibiotics, initial encounter (03/04/25) Subjective Subjective Saw patient at bedside this morning. Patient appeared similar to yesterday, was sitting up comfortably in bed and in no acute distress. She continued to report good urine output. Denied any new concerns morning. Objective Data Objective Data Vital Signs: Vital Signs Temp Pulse Resp BP Pulse Ox O2 Del Method 97.7 F L 83 16 143/82 H 92 Room Air 03/06/25 04:58 03/06/25 04:58 03/06/25 04:58 03/06/25 04:58 03/06/25 04:58 03/06/25 10:00 Oxygen Delivery Method Room Air Weight: 118.2 kg Body Mass Index (BMI) 39.6 Intake & Output: Intake and Output for Last 24 Hours 03/04/25 03/05/25 03/06/25 23:59 23:59 23:59 Intake Total 1000 / 1000 1982.33 / 1982.33 200 / 200 Output Total 3900 / 3900 Balance 1000 / 0 -1916.67 / -1916.67 200 / 200 Lab / Micro Data 03/06/25 05:32 03/06/25 05:32 Labs: Laboratory Results - last 24 hr 03/05/25 16:15: Urine Color Yellow, Urine Clarity Clear, Urine pH 6.0, Ur Specific Wallace 1.010, Urine Protein Negative, Urine Glucose (UA) Normal, Urine Ketones Negative, Urine Occult Blood Negative, Urine Nitrite Negative, Urine Bilirubin Negative, Urine Urobilinogen Normal, Ur Leukocyte Esterase 25 H, Urine RBC 0 SEEN, Urine WBC 0-5 SEEN, Ur Squamous Epith Cells 0-5 SEEN, Urine Bacteria 2+, Urine Mucus 0 SEEN 03/06/25 05:32: WBC 11.1 H, RBC 3.22 L, Hgb 9.1 L, Hct 28.4 L, MCV 88.2, MCH 28.3, MCHC 32.0, RDW Std Deviation 44.1 H, RDW Coeff of Jennifer 13.6, Plt Count 349, MPV 9.6, Sodium 143, Potassium 3.8, Chloride 109 H, Carbon Dioxide 22.0, Anion Gap 12, BUN 24 H, Creatinine 4.55 H, Estim Creat Clear Calc 17.99 L, Est GFR (MDRD) Non-Af 11 L, BUN/Creatinine Ratio 5.4 L, Glucose 92, Calcium 8.6 Micro: Microbiology 03/04/25 15:56 Mucosa - Nose SARS-CoV-2, Influenza & RSV (PCR) - Final Radiography Diagnostic Testing: Radiology Impression Renal Ultrasound 03/05/25 10:21 IMPRESSION: Bladder volume 136 cc. Wall appears mildly thick at 5-6 mm which may be inflammatory or infectious, clinically correlate. The bladder otherwise appears within limits. Reading Location: [facility] Physical Exam Const alert, oriented x3 and no apparent distress Constitutional Narrative: Upper middle-aged female, class II obesity, energy improved from admission, sitting back comfortably in bed, conversing normally, in no acute distress. General Appearance: cooperative and comfortable HEENT normocephalic, head/scalp atraumatic, hearing grossly normal bilaterally, nasal mucous membranes and turbinates normal and moist oral mucous membranes Eyes PERRL, EOMs intact bilaterally and conjunctivae normal Neck full ROM Chest inspection of chest normal Resp normal respiratory effort, normal air movement, no use of accessory muscles and clear to auscultation bilaterally Cardio regular rate, regular rhythm, no murmurs and peripheral pulses 2+ throughout GI normal to inspection, nondistended, normoactive bowel sounds, soft to palpation, non-tender and non-distended Back/Spine normal ROM Extremity normal to inspection, full ROM and no pedal edema Skin no rashes or lesions noted Psych mental status grossly normal Assessment & Plan Assessment/Plan (1) Acute renal failure: PLAN: Plan Patient is a 59-year-old female who presented [facility] ED on 03/04/2025 with generalized fatigue and intermittent diarrhea. 1. Acute renal failure ? Nephrology following. Creatinine 4.83 on admit, baseline 0.6. Notably was at baseline on recent discharge on 02/23. FeNa ~5% consistent with intrinsic disease. Vancomycin level notably was very elevated on admission. Per nephrology, most likely diagnosis is vancomycin induced nephrotoxicity, though infectious related glomerulonephritis is an outside possibility. Renal ultrasound with no obstruction. Has had good urine output since admission. Per nephrology, anticipate that creatinine will slowly improve over the next 3 to 4 weeks. Will discuss antibiotic needs with infectious disease and tentatively plan for discharge home today with close lab monitoring after discharge. 2. Recent right foot osteomyelitis with septic arthritis ? Podiatry, infectious disease and wound care following. Patient with recent hospitalization for right foot septic arthritis with osteomyelitis. S/p partial right second toe amputation and debridement of infectious tissue on 02/22. Wound cultures grew MRSA, corynebacter and group B strep. Discharged home on regimen of vancomycin/ceftriaxone/Flagyl with PICC line in place. Holding antibiotics for now, appreciate ID recommendations on antibiotic regimen at this time. Gabapentin on hold given acute renal failure as above. 3. Chronic normocytic anemia ? Hemoglobin stable at baseline around 9 on admission. 4. Intermittent diarrhea resolved ? Reportedly had intermittent diarrhea for the past few days prior to admission. Suspected that diarrhea was secondary to antibiotics. Not able to give stool sample as diarrhea resolved during hospitalization. 5. Oral thrush ? Continue nystatin swish and swallow. Chronic medical conditions: ? Class II obesity: BMI 39 on admit. Complicates hospital course, care and prognosis. ? Anxiety/depression: Stable. Continue home duloxetine, Ativan daily as needed and zolpidem at night. ? Sjogren's disease/lupus: Continue home hydroxychloroquine. DVT prophylaxis: Heparin subcu CODE STATUS: Full code, verified Expected disposition: Home, 1 to 2 days Total clinical time spent by myself addressing the patient's medical issues, reviewing all the data, and collaborating with patient's care team: 35 minutes. Charges/Coding Visit Charges Inpatient E&M: 00502 Subs Hosp L2
--- NOTE | 2025-03-06 11:52 | PCM.PN.REN ---
Subjective Subjective No new complaints today. Objective Data Objective Data Vital Signs: Vital Signs Temp Pulse Resp BP Pulse Ox O2 Del Method 97.7 F L 83 16 143/82 H 92 Room Air 03/06/25 04:58 03/06/25 04:58 03/06/25 04:58 03/06/25 04:58 03/06/25 04:58 03/06/25 10:00 Oxygen Delivery Method Room Air Weight: 118.2 kg Body Mass Index (BMI) 39.6 Intake & Output: Intake and Output for Last 24 Hours 03/04/25 03/05/25 03/06/25 23:59 23:59 23:59 Intake Total 1000 / 1000 1982.33 / 200 / 200 Output Total 3900 / 3900 Balance 1000 / 0 -1916.67 / -191.67 200 / 200 Lab / Micro Data 03/06/25 05:32 03/06/25 05:32 Labs: Laboratory Results - last 24 hr 03/05/25 16:15: Urine Color Yellow, Urine Clarity Clear, Urine pH 6.0, Ur Specific [place]omb 1.010, Urine Protein Negative, Urine Glucose (UA) Normal, Urine Ketones Negative, Urine Occult Blood Negative, Urine Nitrite Negative, Urine Bilirubin Negative, Urine Urobilinogen Normal, Ur Leukocyte Esterase 25 H, Urine RBC 0 SEEN, Urine WBC 0-5 SEEN, Ur Squamous Epith Cells 0-5 SEEN, Urine Bacteria 2+, Urine Mucus 0 SEEN 03/06/25 05:32: WBC 11.1 H, RBC 3.22 L, Hgb 9.1 L, Hct 28.4 L, MCV 88.2, MCH 28.3, MCHC 32.0, RDW Std Deviation 44.1 H, RDW Coeff of Jennifer 13.6, Plt Count 349, MPV 9.6, Sodium 143, Potassium 3.8, Chloride 109 H, Carbon Dioxide 22.0, Anion Gap 12, BUN 24 H, Creatinine 4.55 H, Estim Creat Clear Calc 17.99 L, Est GFR (MDRD) Non-Af 11 L, BUN/Creatinine Ratio 5.4 L, Glucose 92, Calcium 8.6 Micro: Microbiology 03/04/25 15:56 Mucosa - Nose SARS-CoV-2, Influenza & RSV (PCR) - Final Radiography Diagnostic Testing: Radiology Impression Renal Ultrasound 03/05/25 10:21 IMPRESSION: Bladder volume 136 cc. Wall appears mildly thick at 5-6 mm which may be inflammatory or infectious, clinically correlate. The bladder otherwise appears within limits. Reading Location: [facility] Physical Exam Narrative Alert awake oriented x 3 no obvious distress no pallor no icterus no JVD s1s2 no murmurs lungs clear abdomen soft no organomegaly no edema no cyanosis Assessment & Plan Assessment/Plan (1) Acute renal failure: PLAN: Acute renal failure. Normal baseline creatinine as of a week ago. Came with a creatinine of 4.6 or so. Urine analysis fairly benign, no hematuria. There is few leukocytes noted but this was after catheterization. She does not have any ureter related symptoms such as dysuria, hematuria, fever, chills, flank pain. Renal ultrasound without any hydronephrosis. Most likely etiology is ATN from elevated Vanco level. Currently vancomycin is on hold. Creatinine is somewhat better. In general vancomycin nephrotoxicity related ATN is fairly prolonged renal failure. Do not expect renal function to completely recover soon however treatment is mostly supportive hence other than cutting back on vancomycin there is no other intervention needed. No further workup from nephrology standpoint. Will check with primary service about further antibiotic plan. Discussed with hospitalist. ID to decide on final antibiotic plan. She has a visiting nurse coming in for labs. If discharged, please add weekly BMP to the labs and these labs can be faxed to our office. Will arrange follow-up in our office in about 1 to 2 weeks. Discussed with family at bedside Discussed with hospitalist
[2025-03-06] MEDS: 0.9% Saline Lock 10 ML Syringe IV (13:42)
[2025-03-06] MEDS: Ondansetron 4 MG/2 ML Vial IV (13:42)
[2025-03-06 14:00] VITALS: BP 154/93; PULSE 90; RESP 16; TEMP 36.4; O2SAT 97
--- NOTE | 2025-03-06 14:47 | CASEMGMT ---
Addendum entered by Faith Garcia 03/06/25 15:10: ENOCH ARMSTRONG into pt room, pt states that the [employer] stated it could be approx a month for the power scooter. He provided RN CM with their number to call at . TC to [employer], Nellie is the CM, trf'd to her line, left requesting tc back. Previous rep states that this company does not have power scooters only power w/c. ENOCH ARMSTRONG to await returned call. Original Note: Spoke with Ana at [facility] to make aware of pt status at this time. No dc as of yet.
--- NOTE | 2025-03-06 16:29 | PCM.PN.ID ---
Physical Exam Narrative Feeling better, no fever, no abd pain Const alert and no apparent distress General Appearance: cooperative Resp normal air movement and clear to auscultation bilaterally Cardio regular rate and regular rhythm GI soft to palpation, non-tender and non-distended Skin Skin Narrative: feet wrapped ID ID: Route of nutrition/ use of supplements: [] Nutritional Intake: [] IV Site: [] Archibald Catheter: [] Assessment & Plan Assessment/Plan (1) Vancomycin-induced nephrotoxicity: (2) Acute renal failure: (3) Osteomyelitis of foot, right, acute: PLAN: Taken to OR 02/22/[address] Underwood for distal 2nd toe amp and I&D of 1st toe and metatarsal. Wound cx with MRSA, corynebacter, and group G strep. Surg cx with MSSA from 1st toe. Discharged with picc and 6 weeks vanc/ceftriaxone/flagyl. Now with OREN with high vanc trough, diarrhea. Foot doing well, podiatry consulted. Ok for home when ready on po doxy 100mg bid to finish total 6 weeks of abx, has stop date 04/05/25. ID followup in 2 weeks. Will follow, d/w primary team and Dr. Underwood
--- NOTE | 2025-03-06 17:17 | PCM.PROGNOTE ---
Subjective Subjective Patient was seen today for follow up on feet. She is resting in bed, no new complaints. Objective Data Objective Data Vital Signs: Vital Signs Temp Pulse Resp BP Pulse Ox O2 Del Method 97.5 F L 90 16 154/93 H 97 Room Air 03/06/25 14:00 03/06/25 14:00 03/06/25 14:00 03/06/25 14:00 03/06/25 14:00 03/06/25 14:00 Oxygen Delivery Method Room Air Weight: 118.2 kg Body Mass Index (BMI) 39.6 Intake & Output: Intake and Output for Last 24 Hours 03/04/25 03/05/25 03/06/25 23:59 23:59 23:59 Intake Total 1000 / 1000 1982.33 / 200 / 200 Output Total 3900 / 3900 Balance 1000 / 0 -1916.67 / -1916.67 200 / 200 Lab / Micro Data 03/06/25 05:32 03/06/25 05:32 Labs: Laboratory Results - last 24 hr 03/05/25 16:15: Urine Color Yellow, Urine Clarity Clear, Urine pH 6.0, Ur Specific [place] 1.010, Urine Protein Negative, Urine Glucose (UA) Normal, Urine Ketones Negative, Urine Occult Blood Negative, Urine Nitrite Negative, Urine Bilirubin Negative, Urine Urobilinogen Normal, Ur Leukocyte Esterase 25 H, Urine RBC 0 SEEN, Urine WBC 0-5 SEEN, Ur Squamous Epith Cells 0-5 SEEN, Urine Bacteria 2+, Urine Mucus 0 SEEN 03/06/25 05:32: WBC 11.1 H, RBC 3.22 L, Hgb 9.1 L, Hct 28.4 L, MCV 88.2, MCH 28.3, MCHC 32.0, RDW Std Deviation 44.1 H, RDW Coeff of Jennifer 13.6, Plt Count 349, MPV 9.6, Sodium 143, Potassium 3.8, Chloride 109 H, Carbon Dioxide 22.0, Anion Gap 12, BUN 24 H, Creatinine 4.55 H, Estim Creat Clear Calc 17.99 L, Est GFR (MDRD) Non-Af 11 L, BUN/Creatinine Ratio 5.4 L, Glucose 92, Calcium 8.6 Micro: Microbiology 03/04/25 15:56 Mucosa - Nose SARS-CoV-2, Influenza & RSV (PCR) - Final Radiography Diagnostic Testing: Radiology Impression Renal Ultrasound 03/05/25 10:21 IMPRESSION: Bladder volume 136 cc. Wall appears mildly thick at 5-6 mm which may be inflammatory or infectious, clinically correlate. The bladder otherwise appears within limits. Reading Location: [facility] Physical Exam Const alert, oriented x3 and no apparent distress Constitutional Narrative: Right 2nd toe amputation site with intact sutures, no evidence of complication, healing well. Right foot 1st ray debridement - incision site dorsally with intact sutures, small open wound centrally but doing well, wound plantarly with healthy viable margins and granular base, there is some mild maceration to edges however, no new wounds, no new areas of breakdown, no evidence of ischemia, no blistering, no necrosis. Left heel fissure with callus to margins, fissue down to healthy viable granular linear base to subcutaneous tissue layer. Assessment & Plan Assessment/Plan (1) Osteomyelitis of foot, right, acute: (2) Other hereditary and idiopathic neuropathies: PLAN: Plan Evaluation performed. Reviewed diagnostic data. Patient has developed acute kidney injury. Despite this, clinically foot looks good and much improved. We will continue with local wound care. Wound care right foot: Betadine solution to partial 2nd toe amputation and to wound site right 1st ray, overlying gauze, kerlix and trang dressing - change daily. Left heel fissure: Neosporin topically TID. No weightbearing right foot, keep right foot elevated. Infectious Disease is on consult. Podiatry will continue to follow.
[2025-03-06 21:28] VITALS: BP 148/83; PULSE 89; RESP 16; TEMP 36.6; O2SAT 100
[2025-03-06] MEDS: Zolpidem Tartrate 5 MG Tablet 10 MG PO (21:39)
[2025-03-07 03:52] VITALS: BP 141/68; PULSE 88; RESP 16; TEMP 36.6; O2SAT 92
[2025-03-07] MEDS: Heparin Injection (Vial) 5,000 UNIT/ML VIAL 5000 UNIT SC (05:24)
[2025-03-07 06:30] LABS: Anion Gap 12 (5-15); BUN 26 mg/dL (4-19); BUN/Creat Ratio 5.7 RATIO (10-20); Calcium,Total 8.8 mg/dL (7.6-11.0); Carbon Dioxide 23.2 mmol/L (21.0-32.0); Chloride 105 mmol/L (98-108); Creatinine, Serum 4.51 mg/dL (0.70-1.20); EST Glomerular Filtration Rate 11 (>60); Estimated Creatinine Clearance 18.15 ml/min (50-250); Glucose 101 mg/dL (70-99); Potassium 4.1 mmol/L (3.3-5.1); Sodium Level 139 mmol/L (133-145)
[2025-03-07 08:03] VITALS: BP 137/85; PULSE 86; RESP 18; TEMP 36.4; O2SAT 94
--- NOTE | 2025-03-07 09:43 | CASEMGMT ---
Addendum entered by Faith Garcia 03/07/25 10:24: ENOCH ARMSTRONG into pt room, pt sitting up in bed with at bedside. They are aware that this RN NATHANIEL has called [employer] regarding power scooter and was told that they only have power w/c. Pt is agreeable to this. RN CM to speak to [employer] once call returned. Pt aware this will not be set up prior to dc and they will need to continue to be in touch with [employer]. Spoke with Ana at [facility] who confirmed she received information from earlier. Original Note: Pt to dc home on oral antibiotics per ID. Per wound nurse, wound vac will be put back on today and pt has home vac here. TC to intake at [facility] to make aware. Message sent to [facility] via [employer] at this time to make aware that pt does not need IV atb any longer.
[2025-03-07] MEDS: Hydroxychloroquine 200 MG Tablet PO (10:20)
[2025-03-07] MEDS: DULoxetine Hcl 60 MG Capsule 120 MG PO (10:20)
[2025-03-07] MEDS: Gabapentin 100 MG Capsule PO (10:21)
[2025-03-07] MEDS: Estradiol 1 MG Tablet PO (10:21)
--- NOTE | 2025-03-07 10:37 | PCM.DC ---
Discharge Instructions Diet Discharge Diet: No restrictions DC O2, CPAP, BIPAP needs Home O2 Discharge instructions: No Dressing / Incision Discharge Activity: No Restrictions Follow Up Care Test Results: Test results from this visit will be discussed in further detail at your follow-up appointment, if applicable. Discharge Plan Admission Admit Date/Time: 03/04/25 20:09 Primary Reason for Your Visit: fatigue Attending Provider: Caleb Lo Primary Care Provider: Elmira Brownlee Consulting Providers: Andrez Moralez; Flynn Reyes; Lo Cortez; Akin Underwood Discharge Orders/Prescriptions Prescriptions: New doxycycline hyclate 100 mg capsule 100 mg PO BID Qty: 60 0RF Continued cyclobenzaprine 10 MG tablet 10 mg PO TID PRN (Reason: MUSCLE SPASMS) estradiol 1 MG tablet 1 mg PO DAILY gabapentin 300 MG capsule 300 mg PO BID lorazepam 1 MG tablet 1 mg PO DAILY PRN (Reason: Anxiety) hydroxychloroquine 200 MG tablet 200 mg PO BID zolpidem 10 MG tablet 10 mg PO QHS duloxetine 60 MG capsule 120 mg PO DAILY hydroxyzine HCl 25 mg tablet 12.5 - 50 mg PO TID PRN PRN (Reason: anxiety) nystatin 100,000 unit/mL Suspension 500,000 unit PO 4X/DAY 10 Days Qty: 200 0RF oxycodone 5 mg Tablet 5 mg PO Q4H PRN PRN (Reason: Pain Score 4-10) 3 Days Qty: 10 0RF Discontinued metronidazole 500 mg Tablet 500 mg PO TID 40 Days Qty: 120 0RF vancomycin in dextrose 5 % 1 gram/200 mL Piggyback 1,000 mg IV Q8H 40 Days Qty: 8000 0RF Patient Comments: pt reports vanc toxicity Rx Instructions: stop date 04/05/25. Dx: R foot osteomyelitis. Weekly bmp, cbc, LFT, vanc trough, and esr. Fax to [phone]. Routine picc care per protocol. ceftriaxone 2 gram recon soln 2 g IV DAILY 40 Days Rx Instructions: stop date 04/05/25. Dx: R foot osteomyelitis. Weekly bmp, cbc, LFT, vanc trough, and esr. Fax to [phone]. Routine picc care per protocol. Other Ambulatory Orders: Basic Metabolic Profile (BMP) (QWEEK) Timeframe: 20250314 Facility: [facility] - Location: Laboratory Ordered By: Dr. Caleb Lo Basic Metabolic Profile (BMP) (QWEEK) Timeframe: [id number] Facility: [facility] - Location: Laboratory Ordered By: Dr. Caleb Lo Basic Metabolic Profile (BMP) (QWEEK) Timeframe: [id number] Facility: [facility] - Location: Laboratory Ordered By: Dr. Caleb Lo Basic Metabolic Profile (BMP) (QWEEK) Timeframe: [id number] Facility: [facility] - Location: Laboratory Ordered By: Dr. Caleb Lo Referrals / Follow Up: Elmira Brownlee FINANCIAL QUANTITATIVE ANALYST-C [Primary Care Provider] - Disposition Disposition (needs filled in before D/C Order can be placed): Home, Self Care
--- NOTE | 2025-03-07 10:37 | PCM.DC.SUM ---
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 Routine Comment: 03/05/25 08:42 Consult: Nephrology Routine Consulting Provider: Lo Cortez Reason for Consult: severe OREN suspect from vanc toxicity EMERGENT Consult: No MD Notified: Yes Date Notified: 03/05/25 Time Notified: 08:46 Method of Notification: Answering Service 03/05/25 09:03 Consult: Podiatry Routine Consulting Provider: Akin Underwood Reason for Consult: recent right foot surgery EMERGENT Consult: No MD Notified: Yes Date Notified: 03/05/25 Time Notified: 09:04 Method of Notification: Text Reason For Visit: RENAL FAILURE Diagnosis Discharge Diagnosis (1) Osteomyelitis of foot, right, acute: Status: Acute Code(s): M86.171 - Other acute osteomyelitis, right ankle and foot (2) Other hereditary and idiopathic neuropathies: Status: Acute Code(s): G60.8 - Other hereditary and idiopathic neuropathies (3) Vancomycin-induced nephrotoxicity: Status: Acute Code(s): N14.19 - Nephropathy induced by other drugs, medicaments and biological substances; T36.8X5A - Adverse effect of other systemic antibiotics, initial encounter (4) Acute renal failure: Status: Acute Code(s): N17.9 - Acute kidney failure, unspecified Medications at Discharge Home Medications cyclobenzaprine 10 mg tablet 10 mg PO TID PRN MUSCLE SPASMS 04/15/20 duloxetine 60 mg capsule,delayed release 120 mg PO DAILY mood 04/15/20 estradiol 1 mg tablet 1 mg PO DAILY .` 04/15/20 gabapentin 300 mg capsule 300 mg PO BID ` 04/15/20 hydroxychloroquine 200 mg tablet 200 mg PO BID ` 04/15/20 lorazepam 1 mg tablet 1 mg PO DAILY PRN Anxiety 04/15/20 zolpidem 10 mg tablet 10 mg PO QHS ` 04/15/20 hydroxyzine HCl 25 mg tablet 12.5 - 50 mg PO TID PRN PRN anxiety 02/21/25 nystatin 100,000 unit/mL oral suspension 500,000 unit (5 mL) PO 4X/DAY ` 10 days #200 mL 02/25/25 oxycodone 5 mg tablet 5 mg PO Q4H PRN PRN Pain Score 4-10 3 days #10 tabs 02/25/25 doxycycline hyclate 100 mg capsule 100 mg PO BID #60 caps 03/06/25 ondansetron 4 mg disintegrating tablet 4 mg PO Q8H PRN nausea and vomiting 5 days #15 tabs 03/07/25 Hospital Course Operations None Procedures EKG and - (CT brain, renal ultrasound) Summary of Care Provided Minutes Spent on Discharge: 35 Hospital Course: Patient is a 59-year-old female who presented [facility] ED on 03/04/2025 with generalized fatigue and intermittent diarrhea. Hospital course as noted below. Patient discharged home in stable condition on 03/07. 1. Acute renal failure ? Nephrology followed. Creatinine 4.83 on admit, baseline 0.6. Notably was at baseline on recent discharge on 02/23. FeNa ~5% consistent with intrinsic disease. Vancomycin level notably was very elevated on admission. Per nephrology, most likely diagnosis is vancomycin induced nephrotoxicity, though infectious related glomerulonephritis is an outside possibility. Renal ultrasound with no obstruction. Had good urine output during hospitalization. Per nephrology, anticipate that creatinine will slowly improve over the next 3 to 4 weeks. Stable for discharge home on 03/07 with plan to repeat BMP weekly for the next 4 weeks. 2. Recent right foot osteomyelitis with septic arthritis ? Podiatry, infectious disease and wound care followed. Patient with recent hospitalization for right foot septic arthritis with osteomyelitis. S/p partial right second toe amputation and debridement of infectious tissue on 02/22. Wound cultures grew MRSA, corynebacter and group B strep. Discharged home on regimen of vancomycin/ceftriaxone/Flagyl with PICC line in place. Held antibiotics while inpatient as vancomycin level remained high. Per ID, patient okay for discharge on p.o. doxycycline with plan for 5 more weeks of antibiotics on discharge. 3. Chronic normocytic anemia ? Hemoglobin stable at baseline around 9 on admission. 4. Intermittent diarrhea, resolved ? Reportedly had intermittent diarrhea for the past few days prior to admission. Suspected that diarrhea was secondary to antibiotics. Not able to give stool sample as diarrhea resolved during hospitalization. 5. Oral thrush ? Continue nystatin swish and swallow. Chronic medical conditions: ? Class II obesity: BMI 39 on admit. Complicated hospital course, care and prognosis. ? Anxiety/depression: Stable. Continue home duloxetine, Ativan daily as needed and zolpidem at night. ? Sjogren's disease/lupus: Continue home hydroxychloroquine. Total clinical time spent by myself addressing the patient's medical issues, reviewing all the data, and collaborating with patient's care team: 35 minutes. Physical Exam Const alert, oriented x3 and no apparent distress Constitutional Narrative: Upper middle-aged female, class II obesity, energy improved from admission, sitting back comfortably in bed, conversing normally, in no acute distress. General Appearance: cooperative and comfortable HEENT normocephalic, head/scalp atraumatic, hearing grossly normal bilaterally, nasal mucous membranes and turbinates normal and moist oral mucous membranes Eyes PERRL, EOMs intact bilaterally and conjunctivae normal Neck full ROM Chest inspection of chest normal Resp normal respiratory effort, normal air movement, no use of accessory muscles and clear to auscultation bilaterally Cardio regular rate, regular rhythm, no murmurs and peripheral pulses 2+ throughout GI normal to inspection, nondistended, normoactive bowel sounds, soft to palpation, non-tender and non-distended Back/Spine normal ROM Extremity normal to inspection, full ROM and no pedal edema Skin no rashes or lesions noted Psych mental status grossly normal Weight / BMI Weight Weight: 118.2 kg Body Mass Index (BMI) 39.6 ABG / Lab / Microbiology Data 03/06/25 05:32 03/07/25 05:23 Laboratory: Laboratory Results - last 24 hr 03/07/25 05:23: Sodium 139, Potassium 4.1, Chloride 105, Carbon Dioxide 23.2, Anion Gap 12, BUN 26 H, Creatinine 4.51 H, Estim Creat Clear Calc 18.15 L, Est GFR (MDRD) Non-Af 11 L, BUN/Creatinine Ratio 5.7 L, Glucose 101 H, Calcium 8.8 Microbiology: Microbiology 03/04/25 15:56 Mucosa - Nose SARS-CoV-2, Influenza & RSV (PCR) - Final D/C Instructions DC O2, CPAP, BIPAP Needs Home O2 Discharge instructions: No Meaningful Use Info Meaningful Use Meaningful Use Diagnoses (Choose all that apply): None applicable Ischemic Stroke Statin Dosing Therapy Reference: STATIN DOSE THERAPY REFERENCE: * Patients > 75 years receive moderate or high dose statin therapy. * Patients 75 years or YOUNGER should receive HIGH intensity statin dose unless contraindicated. You will be required to document reason for non-treatment if statin daily dose does not meet guidelines. HIGH DOSE STATIN THERAPY DAILY Atorvastatin > than or = to 40 mg Rosuvastatin > than or = to 20 mg Amlodipine + Atorvastatin > than or = to 2.5/40 mg Ezetimibe + Simvastatin 10/80 mg Simvastatin 80mg Discharge Plan Admission Admit Date/Time: 03/04/25 20:09 Primary Reason for Your Visit: fatigue Attending Provider: Caleb Lo Primary Care Provider: Elmira Brownlee Consulting Providers: Andrez Moralez; Flynn Reyes; Lo Cortez; Akin Underwood Discharge Orders/Prescriptions Prescriptions: New doxycycline hyclate 100 mg capsule 100 mg PO BID Qty: 60 0RF ondansetron 4 mg tablet,disintegrating 4 mg PO Q8H PRN (Reason: nausea and vomiting) 5 Days Qty: 15 0RF Continued cyclobenzaprine 10 MG tablet 10 mg PO TID PRN (Reason: MUSCLE SPASMS) estradiol 1 MG tablet 1 mg PO DAILY gabapentin 300 MG capsule 300 mg PO BID lorazepam 1 MG tablet 1 mg PO DAILY PRN (Reason: Anxiety) hydroxychloroquine 200 MG tablet 200 mg PO BID zolpidem 10 MG tablet 10 mg PO QHS duloxetine 60 MG capsule 120 mg PO DAILY hydroxyzine HCl 25 mg tablet 12.5 - 50 mg PO TID PRN PRN (Reason: anxiety) nystatin 100,000 unit/mL Suspension 500,000 unit PO 4X/DAY 10 Days Qty: 200 0RF oxycodone 5 mg Tablet 5 mg PO Q4H PRN PRN (Reason: Pain Score 4-10) 3 Days Qty: 10 0RF Discontinued metronidazole 500 mg Tablet 500 mg PO TID 40 Days Qty: 120 0RF vancomycin in dextrose 5 % 1 gram/200 mL Piggyback 1,000 mg IV Q8H 40 Days Qty: 8000 0RF Patient Comments: pt reports vanc toxicity Rx Instructions: stop date 04/05/25. Dx: R foot osteomyelitis. Weekly bmp, cbc, LFT, vanc trough, and esr. Fax to [phone]. Routine picc care per protocol. ceftriaxone 2 gram recon soln 2 g IV DAILY 40 Days Rx Instructions: stop date 04/05/25. Dx: R foot osteomyelitis. Weekly bmp, cbc, LFT, vanc trough, and esr. Fax to [phone]. Routine picc care per protocol. Other Ambulatory Orders: Basic Metabolic Profile (BMP) (QWEEK) Timeframe: [id number] Facility: [facility] - Location: Laboratory Ordered By: Dr. Caleb Lo Basic Metabolic Profile (BMP) (QWEEK) Timeframe: [id number] Facility: [facility] - Location: Laboratory Ordered By: Dr. Caleb Lo Basic Metabolic Profile (BMP) (QWEEK) Timeframe: [id number] Facility: [facility] - Location: Laboratory Ordered By: Dr. Caleb Lo Basic Metabolic Profile (BMP) (QWEEK) Timeframe: [id number] Facility: [facility] - Location: Laboratory Ordered By: Dr. Caleb Lo Referrals / Follow Up: Lo Cortez MD [Med Staff - Consulting] - Flynn Reyes MD [Med Staff - Active Staff] - (Follow up in two weeks.) Elmira Brownlee NP-C [Primary Care Provider] - Disposition Disposition (needs filled in before D/C Order can be placed): Home, Self Care Charges/Coding Visit Charges Inpatient E&M: 27995 Disch Hosp >30min
--- NOTE | 2025-03-07 11:46 | PCM.PN.REN ---
Subjective Subjective no new events Objective Data Objective Data Vital Signs: Vital Signs Temp Pulse Resp BP Pulse Ox O2 Del Method 97.5 F L 86 18 137/85 H 94 Room Air 03/07/25 08:03 03/07/25 08:03 03/07/25 08:03 03/07/25 08:03 03/07/25 08:03 03/07/25 08:03 Oxygen Delivery Method Room Air Weight: 118.2 kg Body Mass Index (BMI) 39.6 Intake & Output: Intake and Output for Last 24 Hours 03/05/25 03/06/25 03/07/25 23:59 23:59 23:59 Intake Total 1982.33 / 1982. 450 / 450 150 / 150 Output Total 3900 / 3900 Balance -1915.67 / - 450 / 450 150 / 150 Lab / Micro Data 03/06/25 05:32 03/07/25 05:23 Labs: Laboratory Results - last 24 hr 03/07/25 05:23: Sodium 139, Potassium 4.1, Chloride 105, Carbon Dioxide 23.2, Anion Gap 12, BUN 26 H, Creatinine 4.51 H, Estim Creat Clear Calc 18.15 L, Est GFR (MDRD) Non-Af 11 L, BUN/Creatinine Ratio 5.7 L, Glucose 101 H, Calcium 8.8 Micro: Microbiology 03/04/25 15:56 Mucosa - Nose SARS-CoV-2, Influenza & RSV (PCR) - Final Physical Exam Narrative Alert awake oriented x 3 no obvious distress no pallor no icterus no JVD s1s2 no murmurs lungs clear abdomen soft no organomegaly no edema no cyanosis Assessment & Plan Assessment/Plan (1) Acute renal failure: PLAN: Acute renal failure. Normal baseline creatinine as of a week ago. Came with a creatinine of 4.6 or so. Urine analysis fairly benign, no hematuria. There is few leukocytes noted but this was after catheterization. She does not have any ureter related symptoms such as dysuria, hematuria, fever, chills, flank pain. Renal ultrasound without any hydronephrosis. Most likely etiology is ATN from elevated Vanco level. Currently vancomycin is on hold. Creatinine is somewhat better. In general vancomycin nephrotoxicity related ATN is fairly prolonged renal failure. Do not expect renal function to completely recover soon however treatment is mostly supportive hence other than cutting back on vancomycin there is no other intervention needed. No further workup from nephrology standpoint. reviewed ID notes. plan is to use doxycyclin ok to dc from my end needs weekly BMP i gave her my card for contact information
== END 2025-03-07 12:15 | disposition home health service (06) | DRG 917 ==
LOC: ED 19:20 → MS3 21:05
PROVIDERS: Internal Medicine Nephrology; Admitting Provider Family Medicine; Emergency Provider Emergency Medicine; PCP Nurse Practitioner Family; Visit Provider Hospitalist
DX: T50.914A Poisoning by multiple unspecified drugs, medicaments and biological substances, undetermined, initial encounter (principal); N17.0 Acute kidney failure with tubular necrosis; B37.0 Candidal stomatitis; M86.171 Other acute osteomyelitis, right ankle and foot; M32.9 Systemic lupus erythematosus, unspecified; D64.9 Anemia, unspecified; F32.A Depression, unspecified; Z68.39 Body mass index [BMI] 39.0-39.9, adult; Z95.828 Presence of other vascular implants and grafts; F41.9 Anxiety disorder, unspecified; M79.7 Fibromyalgia; G60.9 Hereditary and idiopathic neuropathy, unspecified; N14.19 Nephropathy induced by other drugs, medicaments and biological substances; N05.9 Unspecified nephritic syndrome with unspecified morphologic changes; B95.62 Methicillin resistant Staphylococcus aureus infection as the cause of diseases classified elsewhere; M35.00 Sjogren syndrome, unspecified; Z90.710 Acquired absence of both cervix and uterus; E66.812 Obesity, class 2
CPT/HCPCS: 36415; 70450; 76770; 80048; 80053; 80202; 81001; 82436; 82570; 83605; 84133; 84300; 85025; 85027; 87631; 99285; A4216; J2405

== ENCOUNTER 2025-03-12 13:44 | Outpatient (RCR) | payer MEDICARE, BC, SELFPAY ==
[2025-03-12 14:18] LABS: Hematocrit 31.4 % (37-47); Hemoglobin 10.2 g/dL (12.0-15.0); Mean Corp Hgb Conc 32.5 g/dL (32-36); Mean Corpuscular Hgb 27.9 pg (27.0-32.0); Mean Corpuscular Volume 85.8 fL (81-99); Mean Platelet Vol. 9.5 fl (6.2-12.0); Platelet Count 288 K/mm3 (150-450); RBC Distribution Width CV 13.7 % (11.6-14.6); RBC Distribution Width SD 42.9 fl (35.1-43.9); Red Blood Count 3.66 M/mm3 (4.2-5.4)
[2025-03-12 14:43] LABS: AST(SGOT) 17 U/L (<=31); Alanine Aminotransfer ALT/SGPT 11 U/L (<=34); Albumin, Serum 3.7 g/dL (3.5-5.0); Alkaline Phosphatase 102 U/L (35-104); Anion Gap 13 (5-15); BUN 34 mg/dL (4-19); BUN/Creat Ratio 10.4 RATIO (10-20); Bilirubin, Direct < 0.08 mg/dL (0.00-0.30); Calcium,Total 9.1 mg/dL (7.6-11.0); Carbon Dioxide 26.5 mmol/L (21.0-32.0); Chloride 99 mmol/L (98-108); Creatinine, Serum 3.31 mg/dL (0.70-1.20); EST Glomerular Filtration Rate 15 (>60); Glucose 82 mg/dL (70-99); Potassium 3.9 mmol/L (3.3-5.1); Protein, Total 7.7 g/dL (5.9-8.4); Sodium Level 139 mmol/L (133-145); Total Bilirubin 0.24 mg/dL (0.00-1.30)
== END 2025-04-07 23:59 ==
LOC: LABSPEC 13:44
PROVIDERS: PCP Nurse Practitioner Family
DX: M86.171 Other acute osteomyelitis, right ankle and foot (principal); L03.115 Cellulitis of right lower limb; Z45.2 Encounter for adjustment and management of vascular access device; Z79.2 Long term (current) use of antibiotics
CPT/HCPCS: 80048; 80076; 85027

== ENCOUNTER → 2025-03-19 | Outpatient (CLI) | payer MEDICARE, BC, SELFPAY ==
[2025-03-19 17:38] LABS: Hematocrit 36.2 % (37-47); Hemoglobin 11.6 g/dL (12.0-15.0); Mean Corpuscular Hgb 27.6 pg (27.0-32.0); Mean Corpuscular Volume 86.2 fL (81-99); Mean Platelet Vol. 10.6 fl (6.2-12.0); Platelet Count 276 K/mm3 (150-450); RBC Distribution Width CV 13.6 % (11.6-14.6); RBC Distribution Width SD 42.8 fl (35.1-43.9)
[2025-03-19 18:37] LABS: AST(SGOT) 17 U/L (<=31); Alanine Aminotransfer ALT/SGPT 11 U/L (<=34); Albumin, Serum 4.4 g/dL (3.5-5.0); Alkaline Phosphatase 115 U/L (35-104); Anion Gap 17 (5-15); BUN 40 mg/dL (4-19); BUN/Creat Ratio 17.7 RATIO (10-20); Calcium,Total 9.8 mg/dL (7.6-11.0); Carbon Dioxide 22.7 mmol/L (21.0-32.0); Chloride 97 mmol/L (98-108); Creatinine, Serum 2.26 mg/dL (0.70-1.20); EST Glomerular Filtration Rate 24 (>60); Globulin 4.3 g/dL (2.2-4.2); Glucose 81 mg/dL (70-99); Potassium 3.8 mmol/L (3.3-5.1); Protein, Total 8.7 g/dL (5.9-8.4); Sodium Level 137 mmol/L (133-145)
== END | disposition home or self-care (01) ==
LOC: MTLAB 15:06
PROVIDERS: PCP Nurse Practitioner Family; Referring Provider Internal Medicine Infectious Disease; Visit Provider Internal Medicine Infectious Disease
DX: M86.9 Osteomyelitis, unspecified (principal)
CPT/HCPCS: 36415; 80048; 80076; 85027

== ENCOUNTER → 2025-03-26 | Outpatient (CLI) | payer MEDICARE, BC, SELFPAY ==
[2025-03-26 17:59] LABS: Hematocrit 32.7 % (37-47); Hemoglobin 10.7 g/dL (12.0-15.0); Mean Corp Hgb Conc 32.7 g/dL (32-36); Mean Corpuscular Hgb 27.8 pg (27.0-32.0); Mean Corpuscular Volume 84.9 fL (81-99); Mean Platelet Vol. 10.7 fl (6.2-12.0); Platelet Count 296 K/mm3 (150-450); RBC Distribution Width CV 13.5 % (11.6-14.6); RBC Distribution Width SD 41.7 fl (35.1-43.9); Red Blood Count 3.85 M/mm3 (4.2-5.4); White Blood Count 10.5 K/mm3 (4.4-11.0)
[2025-03-26 18:32] LABS: AST(SGOT) 16 U/L (<=31); Alanine Aminotransfer ALT/SGPT 11 U/L (<=34); Albumin, Serum 4.1 g/dL (3.5-5.0); Alkaline Phosphatase 117 U/L (35-104); Anion Gap 12 (5-15); BUN 27 mg/dL (4-19); BUN/Creat Ratio 17.9 RATIO (10-20); Calcium,Total 9.4 mg/dL (7.6-11.0); Carbon Dioxide 25.2 mmol/L (21.0-32.0); Chloride 100 mmol/L (98-108); Creatinine, Serum 1.49 mg/dL (0.70-1.20); EST Glomerular Filtration Rate 40 (>60); Globulin 3.6 g/dL (2.2-4.2); Glucose 115 mg/dL (70-99); Potassium 3.7 mmol/L (3.3-5.1); Protein, Total 7.7 g/dL (5.9-8.4); Sodium Level 137 mmol/L (133-145)
== END | disposition home or self-care (01) ==
LOC: MTLAB 14:25
PROVIDERS: PCP Nurse Practitioner Family; Referring Provider Internal Medicine Infectious Disease; Visit Provider Internal Medicine Infectious Disease
DX: M86.9 Osteomyelitis, unspecified (principal)
CPT/HCPCS: 36415; 80048; 80076; 85027

== ENCOUNTER 2025-04-10 12:05 | Outpatient (RCR) | payer MEDICARE, BC, SELFPAY ==
[2025-04-10 12:54] LABS: Hematocrit 30.4 % (37-47); Hemoglobin 9.6 g/dL (12.0-15.0); Mean Corp Hgb Conc 31.6 g/dL (32-36); Mean Corpuscular Volume 88.4 fL (81-99); Mean Platelet Vol. 10.0 fl (6.2-12.0); Platelet Count 250 K/mm3 (150-450); RBC Distribution Width CV 14.2 % (11.6-14.6); RBC Distribution Width SD 45.7 fl (35.1-43.9); Red Blood Count 3.44 M/mm3 (4.2-5.4); White Blood Count 8.6 K/mm3 (4.4-11.0)
[2025-04-10 13:21] LABS: Anion Gap 10 (5-15); BUN 19 mg/dL (4-19); BUN/Creat Ratio 16.8 RATIO (10-20); Calcium,Total 9.0 mg/dL (7.6-11.0); Carbon Dioxide 25.0 mmol/L (21.0-32.0); Chloride 104 mmol/L (98-108); Glucose 114 mg/dL (70-99); Potassium 4.0 mmol/L (3.3-5.1)
== END 2025-05-08 20:35 | disposition home or self-care (01) ==
LOC: HHLAB 12:05
PROVIDERS: PCP Nurse Practitioner Family
DX: M86.171 Other acute osteomyelitis, right ankle and foot (principal)
CPT/HCPCS: 80048; 85027

== ENCOUNTER → 2025-05-07 | Outpatient (CLI) | payer MEDICARE, BC, SELFPAY ==
[2025-05-07 12:27] LABS: Hematocrit 33.4 % (37-47); Hemoglobin 10.6 g/dL (12.0-15.0); Immature Granulocytes Count 0.040 X10^3/uL (0.0-0.0); Mean Corp Hgb Conc 31.7 g/dL (32-36); Mean Corpuscular Volume 89.1 fL (81-99); Mean Platelet Vol. 9.4 fl (6.2-12.0); NRBC Flagged by Analyzer 0 % (0-5); Platelet Count 318 K/mm3 (150-450); RBC Distribution Width CV 15.2 % (11.6-14.6); RBC Distribution Width SD 49.6 fl (35.1-43.9); Red Blood Count 3.75 M/mm3 (4.2-5.4); White Blood Count 9.1 K/mm3 (4.4-11.0)
[2025-05-07 13:34] LABS: AST(SGOT) 16 U/L (<=31); Alanine Aminotransfer ALT/SGPT 15 U/L (<=34); Albumin, Serum 4.0 g/dL (3.5-5.0); Alkaline Phosphatase 107 U/L (35-104); Anion Gap 12 (5-15); BUN 18 mg/dL (4-19); BUN/Creat Ratio 17.9 RATIO (10-20); Calcium,Total 9.3 mg/dL (7.6-11.0); Carbon Dioxide 24.3 mmol/L (21.0-32.0); Chloride 103 mmol/L (98-108); Globulin 3.1 g/dL (2.2-4.2); Glucose 92 mg/dL (70-99); Potassium 4.1 mmol/L (3.3-5.1)
== END | disposition home or self-care (01) ==
PROVIDERS: PCP Nurse Practitioner Family; Referring Provider Nurse Practitioner Family; Visit Provider Nurse Practitioner Family
DX: N28.9 Disorder of kidney and ureter, unspecified (principal); L97.512 Non-pressure chronic ulcer of other part of right foot with fat layer exposed
CPT/HCPCS: 36415; 80053; 85025

== ENCOUNTER → 2025-08-15 | Outpatient (CLI) | payer MEDICARE, BC, SELFPAY ==
[2025-08-15 15:01] LABS: Hematocrit 36.5 % (37-47); Hemoglobin 11.9 g/dL (12.0-15.0); Immature Granulocytes Count 0.020 X10^3/uL (0.0-0.0); Mean Corp Hgb Conc 32.6 g/dL (32-36); Mean Corpuscular Volume 85.5 fL (81-99); Mean Platelet Vol. 9.6 fl (6.2-12.0); NRBC Flagged by Analyzer 0 % (0-5); Platelet Count 347 K/mm3 (150-450); RBC Distribution Width CV 12.3 % (11.6-14.6); RBC Distribution Width SD 38.3 fl (35.1-43.9); Red Blood Count 4.27 M/mm3 (4.2-5.4); White Blood Count 10.7 K/mm3 (4.4-11.0)
[2025-08-15 15:51] LABS: AST(SGOT) 16 U/L (<=31); Alanine Aminotransfer ALT/SGPT 9 U/L (<=34); Albumin, Serum 4.2 g/dL (3.4-4.8); Alkaline Phosphatase 118 U/L (35-104); Anion Gap 9 (5-15); BUN 14 mg/dL (4-19); BUN/Creat Ratio 14.2 RATIO (10-20); Calcium,Total 9.5 mg/dL (7.6-11.0); Carbon Dioxide 28.2 mmol/L (21.0-32.0); Chloride 102 mmol/L (98-108); Cholesterol 236 mg/dL (<=200); Globulin 3.3 g/dL (2.2-4.2); Glucose 99 mg/dL (70-99); Low Density Lipoprotein Calc. 138 mg/dL; Potassium 4.0 mmol/L (3.3-5.1); Triglycerides 157 mg/dL; Very Low Density Lipoprotein 31 mg/dL (5-40); Vitamin D,25 Hydroxy 18.9 ng/mL (30-100); cholesterol:hdl ratio screen 3.34
== END | disposition home or self-care (01) ==
PROVIDERS: PCP Nurse Practitioner Family; Visit Provider Nurse Practitioner Family
DX: Z00.01 Encounter for general adult medical examination with abnormal findings (principal); E55.9 Vitamin D deficiency, unspecified; E78.5 Hyperlipidemia, unspecified
CPT/HCPCS: 36415; 80053; 80061; 82306; 85025

== ENCOUNTER → 2025-08-27 | Outpatient (CLI) | payer MEDICARE, BC, SELFPAY ==
--- NOTE | 2025-08-27 15:24 | BI_ITS ---
EXAM: SCRN MAMM (CAD)W/LISA BILAT DATE: 08/27/2025 CLINICAL HISTORY: F, Age 60 y/o , SCREENING Baseline examination. No family history. TECHNIQUE: Procedure Code: [id number] Modality: MG Procedure: SCRN MAMM (CAD)W/LISA BILAT COMPARISON: Baseline examination. FINDINGS: TISSUE DENSITY: The breasts are almost entirely fatty. Bilateral Breast Mammographic Findings: No significant masses, calcifications or other abnormalities are identified. BI/SCRN MAMM (CAD)W/LISA BILAT IMPRESSION: Unremarkable screening mammogram. OVERALL FINAL ASSESSMENT BI-RADS 1: NEGATIVE. RECOMMENDATION: Routine annual follow-up in 1 Year Additional Recommendation none A letter with findings and recommendations will be mailed to the patient. Reading Location: [id number]
== END | disposition home or self-care (01) ==
LOC: OPBI 15:23
PROVIDERS: PCP Nurse Practitioner Family; Referring Provider Nurse Practitioner Family; Visit Provider Nurse Practitioner Family
DX: Z12.31 Encounter for screening mammogram for malignant neoplasm of breast (principal)
CPT/HCPCS: 77063; 77067

== ENCOUNTER 2025-09-19 10:11 | Inpatient (IN) | payer MEDICARE, BC, SELFPAY ==
[2025-09-19 10:12] VITALS: BP 155/102; PULSE 112; RESP 18; TEMP 36.5; O2SAT 96
[2025-09-19 10:19] VITALS: BMI 38.5
--- NOTE | 2025-09-19 10:27 | ED.VIS.LOWEX ---
HPI History of Present Illness HPI Narrative: 60-year-old female right foot nondiabetic foot wound. Sent in by the construction plant operator for admission and surgery. Chief Complaint: Wound Informant: patient and spouse/S.O. Occured/Mechanism Mechanism/Context: No injury and No blunt trauma Onset/Context/Timing Onset: Weeks and Month(s) Context: Gradual Onset Timing: Continuous Current Severity: Moderate Maximum Severity: Moderate Associated Symptoms Associated Symptoms: Positive for Parasthesia (Chronic neuropathy.) Narrative Narrative: 60-year-old female history of rheumatoid arthritis, Sjogren's, extraocular joints, lupus with an Laffitte neuropathies. She is not diabetic. ACC said recurrent infections in the right foot with prior surgeries and toe amputations. She believes this wounds been ongoing for the last few months. Since started the base of her toenails ulcer right lateral foot. She saw her construction plant operator Dr. Akin Underwood today. He evaluated her and dressed the wound and sent her in to be admitted to the hospitalist and he plan on doing surgery in the next 1 to 2 days. Prior similar symptoms: Yes Recent Illness/Hospitalization: No PFSH PFSH Medical History Other hereditary and idiopathic neuropathies Sleep apnea Anxiety Depression Rheumatoid arthritis Migraines Amputation of toe of left foot Wears contact lenses Wears glasses Connective tissue disease Walker as ambulation aid Ambulates with cane Arthritis History of IBS Heartburn Non-smoker CPAP (continuous positive airway pressure) dependence Fibromyalgia Sjogren syndrome with dental involvement Sjogren syndrome with keratoconjunctivitis Sjogren syndrome with peripheral nervous system involvement Lupus Home Medications ?Medication ?Instructions ?Recorded ?Last Taken ?Type cyclobenzaprine 10 mg tablet 10 mg PO TID PRN MUSCLE SPASMS 04/15/20 03/03/25 History duloxetine 60 mg capsule,delayed 120 mg PO DAILY mood 04/15/20 03/04/25 History release estradiol 1 mg tablet 1 mg PO DAILY .` 04/15/20 03/04/25 History gabapentin 300 mg capsule 300 mg PO BID ` 04/15/20 03/03/25 History hydroxychloroquine 200 mg tablet 200 mg PO BID ` 04/15/20 03/04/25 History lorazepam 1 mg tablet 1 mg PO DAILY PRN Anxiety 04/15/20 03/03/25 History zolpidem 10 mg tablet 10 mg PO QHS ` 04/15/20 03/03/25 History hydroxyzine HCl 25 mg tablet 12.5 - 50 mg PO TID PRN PRN anxiety 02/21/25 03/03/25 History Allergy/AdvReac Type Severity Reaction Status Date / Time Gadolinium-MRI Contrast Allergy Intermediate Hives Verified 09/19/25 10:14 Medium (CONTRAST) Iodinated Contrast Media (CT) Allergy Rash Verified 09/19/25 10:14 morphine Allergy Hives Verified 09/19/25 10:14 sertraline (From Zoloft) Allergy Swelling Verified 09/19/25 10:14 Family History Father Pseudocholinesterase deficiency Prostate cancer Mother CAD (coronary artery disease) Heart disease Hypertension Breast cancer Lupus Surgical History H/O wisdom tooth extraction H/O tubal ligation History of hysterectomy Hx of cholecystectomy Hx of Achilles tendon repair Social History household members: spouse Smoking Status: Never smoker alcohol intake: never substance use type: does not use ROS ROS ED ROS Narrative Denies recent illness of the foot. Constitutional Constitutional ED: Denies chills or fever(s) Eyes Eyes: Denies blurry vision ENT ENT ED: Denies ear pain Cardiovascular Cardiovascular: Denies chest pain Respiratory/Chest Respiratory/Chest: Denies cough Gastrointestinal Gastrointestinal: Denies abdominal pain Genitourinary Genitourinary ED: Denies dysuria or hematuria Musculoskeletal Musculoskeletal: Denies arthralgias Integumentary Denies rash Neurologic Neurologic: Denies headache(s) Psychiatric Psychiatric: Denies anxiety Endocrine Endocrinology: Denies polydipsia Hematologic/Lymphatic Hematologic/Lymphatic: Denies easy bleeding, easy bruising or lymphadenopathy Allergic/Immunologic Allergic/Immunologic ED: Denies mouth swelling, tongue swelling or urticaria EXAM Physical Exam Narrative Exam Narrative: 60-year-old female sitting upright in bed vital signs are stable afebrile does not look septic toxic no acute distress. at bedside. H EENT exam pupils round react light. Moist mucous membranes. Lungs clear to auscultation. Heart tachycardic 110 no murmur. Chest wall ribs nontender. Abdomen soft nontender. Back nontender. Moving all 4 extremities. She has bilateral neuropathies in both feet. The right foot currently is dressed. There is no cellulitis or lymphangitic streaking above the ankle. She has no inguinal lymphadenopathy. Dorsi plantarflexion is intact bilaterally. She can lift either leg. Neurologically she is awake alert. Has a neuropathies. Otherwise answering questions and following commands. I did take the patient's right foot wound dressing off and evaluated her foot. She has a strong palpable DP pulse. She has a quarter sized ulceration wound on the sole of the foot just proximal to the metatarsal phalangeal joint. She has decreased sensation. It does look purulent. She also has a wound on the base of the fourth or ring toe metatarsal. And swelling on the lateral foot. There is no lymphangitic streaking. Const Vital Signs: 09/19/25 10:12 09/19/25 11:52 Temperature 97.7 F L 98.0 F Temperature Source Oral Oral Pulse Rate 112 H 97 Respiratory Rate 18 19 H Blood Pressure 155/102 H 127/84 H Blood Pressure Mean 119 98 Pulse Ox 96 100 Oxygen Delivery Method Room Air Room Air MDM MDM MDM Narrative Medical decision making narrative: 60-year-old female nondiabetic right foot recurrent infection. She will be started on IV Zosyn. Has a history of MRSA in the past. Has had issues with vancomycin and her kidney function in the past. She may need additional antibiotics also. I reviewed her prior cultures. She has already had x-rays at the construction plant operator office. Patient doing well at 1:15 PM. Hospitalist has written the order for the admission. History & Record Review Discussion w/independent historian: Patient and Family Additional record(s) reviewed:: Prior inpatient record, Prior outpatient record, Prior ED visit and Prior labs Lab Data Attestation: I reviewed the patient's lab results. Lab results narrative: CBC shows a white count of 14.7. H&H 11.6 and 36. Platelets 362. Sed rate is elevated at 61. CRP is elevated at 114. Electrolytes show gap 11. Normal BUN of 15 creatinine 0.87. Glucose 87. Labs are consistent with prior. Labs: Laboratory Results - last 24 hr 09/19/25 11:05 WBC 14.7 H RBC 4.29 Hgb 11.6 L Hct 36.5 L MCV 85.1 MCH 27.0 MCHC 31.8 L RDW Std Deviation 39.2 RDW Coeff of Jennifer 12.7 Plt Count 362 MPV 9.2 Immature Gran % (Auto) 0.300 Neut % (Auto) 72.6 H Lymph % (Auto) 18.7 L [place] % (Auto) 5.8 Eos % (Auto) 2.2 Baso % (Auto) 0.4 Absolute Neuts (auto) 10.7 H Absolute Lymphs (auto) 2.75 Nucleated RBC % 0 ESR 61 H Sodium 137 Potassium 3.9 Chloride 101 Carbon Dioxide 26.2 Anion Gap 11 BUN 15 Creatinine 0.87 Estim Creat Clear Calc 91.51 Est GFR (MDRD) Non-Af 76 BUN/Creatinine Ratio 16.7 Glucose 87 Calcium 9.7 C-React Prot Ext Range 114.00 H Discharge Plan Dx/Rx/DC Orders Clinical Impression: Foot infection, Charcot joint of right ankle, Hx of rheumatoid arthritis, History of neuropathy Disposition Disposition: Acute Care Hospital [facility]
--- NOTE | 2025-09-19 10:53 | MRI_ITS ---
PROCEDURE: MRI RIGHT LOWER EXT NO JOINT W/WO CONT 09/19/2025 REASON FOR EXAM: RIGHT FOOT INFECTION. TECHNIQUE: Procedure Code: [id number] Modality: MR Procedure: LOWER EXT NO JOINT W/WO CONT Multiplanar and multisequential MRI of the right forefoot was performed without and with IV gadolinium based contrast administration. CONTRAST: Clariscan VOLUME: 23 mL COMPARISON: Radiographs 02/22/2025. MRI 02/21/2025. FINDINGS: Soft tissue ulceration at both the dorsal and plantar aspect of the forefoot at the 1st MTP joint region. No rim enhancing drainable fluid collection/abscess is seen. Scattered foci of susceptibility signal in the underlying soft tissues in this region likely reflecting subcutaneous emphysema, which may reflect soft tissue infection with gas-forming organisms. Generalized soft tissue edema about the forefoot. Postoperative changes of ostectomy of the 1st MTP joint. Sharp surgical margins of the 1st proximal phalanx base without cortical erosion. There is mild marrow edema within the distal aspect of the retained 1st metatarsal which has marginal degenerative/postoperative callus or heterotopic bone formation. Irregular cortical erosion/destruction and low T1 marrow signal involving the distal aspect of the 1st metatarsal bone is compatible with osteomyelitis. Additionally there are postoperative changes of amputation of the distal 2nd ray at the level of the distal interphalangeal joint. Amputation of the distal 3rd ray at the level of the proximal phalanx distal shaft/neck. 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 No findings suspicious for osteomyelitis at these locations. The visualized midfoot demonstrates extensive degenerative osteoarthritic changes involving the intertarsal and tarsometatarsal articulations with nonspecific heterogeneous marrow signal/edema and extensive subchondral cyst formations. Associated infection in this location cannot be reliably excluded. MRI/Lower Ext No Joint W/WO Cont IMPRESSION: 1. Postoperative changes with multiple partial digit amputations, as described. 2. Osteomyelitis involving the distal aspect of the 1st metatarsal. Surroundin g soft tissue edema and ulceration at the overlying dorsal and plantar aspect of the medial forefoot, with scattered foci of subcutaneous emphysema suggesting infection with gas-forming organisms. 3. No rim enhancing drainable fluid collection/abscess visualized. 4. Advanced degenerative/arthritic changes involving the intertarsal and tarsom etatarsal articulations with heterogeneous marrow signal/edema and extensive subchondral cyst formations. Infection in this loca tion is not apparent on prior radiographs, but cannot be reliably excluded on this exam. 5. 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 Reading Location: [id number]
[2025-09-19 11:30] LABS: Hematocrit 36.5 % (37-47); Hemoglobin 11.6 g/dL (12.0-15.0); Immature Granulocytes Count 0.040 X10^3/uL (0.0-0.0); Mean Corp Hgb Conc 31.8 g/dL (32-36); Mean Corpuscular Volume 85.1 fL (81-99); Mean Platelet Vol. 9.2 fl (6.2-12.0); NRBC Flagged by Analyzer 0 % (0-5); Platelet Count 362 K/mm3 (150-450); RBC Distribution Width CV 12.7 % (11.6-14.6); RBC Distribution Width SD 39.2 fl (35.1-43.9); Red Blood Count 4.29 M/mm3 (4.2-5.4); White Blood Count 14.7 K/mm3 (4.4-11.0)
[2025-09-19] MEDS: Piperacil/Tazobactam 4.5 GM in 0.9% Normal Saline (100mL MB+) 100 ML IV (11:35)
[2025-09-19 11:49] LABS: Anion Gap 11 (5-15); BUN 15 mg/dL (4-19); BUN/Creat Ratio 16.7 RATIO (10-20); CRP 114.00 mg/L (0.0-3.0); Calcium,Total 9.7 mg/dL (7.6-11.0); Carbon Dioxide 26.2 mmol/L (21.0-32.0); Chloride 101 mmol/L (98-108); Estimated Creatinine Clearance 91.51 ml/min (50-250); Glucose 87 mg/dL (70-99); Potassium 3.9 mmol/L (3.3-5.1)
[2025-09-19 11:52] VITALS: BP 127/84; PULSE 97; RESP 19; TEMP 36.7; O2SAT 100
--- NOTE | 2025-09-19 12:47 | CASEMGMT ---
Care Management Face to Face with patient for initial transition planning/care coordination assessment in the ED.? This automobile service writer introduced self and role at [facility]. Patient alert and oriented. Patient willing to participate in assessment and is able to answer all questions appropriately.? Care providers, pharmacy, and demographics verified. Admitting Diagnosis: Foot infection Other diagnosis history: ?rheumatoid arthritis, Sjogren?s, lupus PCP: ?Kem Specialists: ?Alesha Preferred Pharmacy: [facility] Insurance: ?Medicare Prescription Benefit: ?yes Living Will/HPOA: ?Completed, asked to bring in copies for medical record LNOK: ? Living Arrangements: ?patient lives with in 2 story home, states they pretty much live on first floor. Patient is independent with ADLs and IADls Transportation: ?patient drives DME: ?cane, walker, rollator, power scooter, knee scooter HHC: [facility] SNF/Rehab: ?none Community Resources: ?none Behavioral Health History: ?depression Patient goals: Patient wishes to discharge home, denies need for home health care at this time. Patient denies any further needs or concerns at this time. Disposition Plan: admission to acute; RN CM/SW to follow for discharge planning needs that may arise. Elham Guthrie, SENIOR CONTROL SYSTEMS ENGINEER, PRESS LEADER
[2025-09-19 13:37] VITALS: BP 127/84; PULSE 97; RESP 19; TEMP 36.7; O2SAT 100
[2025-09-19 14:38] VITALS: BMI 36.1
--- NOTE | 2025-09-19 14:46 | PCM.RX.CS ---
Consult Antibiotic Management Pharmacy has been consulted to manage selected antibiotic: Vancomycin Type of Intervention Type of Consult: New start Suspected Infection Suspected Infection: Skin/Soft tissue Labs Labs: Sodium 137 mmol/L (133-145) 09/19/25 11:05 Potassium 3.9 mmol/L (3.3-5.1) 09/19/25 11:05 Chloride 101 mmol/L (98-108) 09/19/25 11:05 Carbon Dioxide 26.2 mmol/L (21.0-32.0) 09/19/25 11:05 Anion Gap 11 (5-15) 09/19/25 11:05 BUN 15 mg/dL (4-19) 09/19/25 11:05 Creatinine 0.87 mg/dL (0.70-1.20) 09/19/25 11:05 Est GFR (MDRD) Non-Af 76 (>60) 09/19/25 11:05 BUN/Creatinine Ratio 16.7 RATIO (10-20) 09/19/25 11:05 Glucose 87 mg/dL (70-99) 09/19/25 11:05 Dosing Weight Weight used for dosin.3 kg Estimated Creatinine Clearance Estimated Creatinine Clearance: 91.5 Goal Trough Goal Trough: 15-20 mcg/mL Pharmacy Plan for Drug Dosing Pharmacy Plan for Drug Dosing: Pharmacy Service will continue to monitor and adjust dosing as required. NEW START IV VANCOMYCIN Consulting Physician: Dr. Treadwell Indication: Cellulitis of right lower limb Goal Trough: 15-20 SrCr: 0.87 CrCl: 91.5 mL/min Vancomycin Dose: 1750 mg Q12H with first dose 09/20/25 @ 0300 Pending Level: 09/21/25 @ 0230 Date/Time Labs Ordered Labs to be done on [date and time ordered]: 09/21/25 @ 0230
[2025-09-19 14:56] VITALS: BP 119/68; PULSE 98; RESP 16; TEMP 36.6; O2SAT 99
[2025-09-19 15:00] LABS: Staph aureus DNA By PCR POSITIVE (Negative)
--- NOTE | 2025-09-19 15:06 | PCM.HP.STD ---
HPI - General General Date of Admission: 09/19/25 Date of Service: 09/19/25 Chief Complaint: Foot wounds HPI Narrative CHAPO PEREZ, is a 60 F who presents with right foot wounds. Patient is a 60-year-old female with a history of lupus and Charcot foot presents with acute on chronic foot wounds. Patient has on the lateral aspect of her foot as well as on the plantar aspect. Have not been healing and saw podiatry as they were getting worse and Dr. Underwood send her to the emergency room. I did request an MRI which was done but result pending at this time. He was concerned about osteomyelitis. He plans to take the patient to surgery on the and will determine the extent of surgery the patient may require. [ ] [facility] Medical History Other hereditary and idiopathic neuropathies Sleep apnea Anxiety Depression Rheumatoid arthritis Migraines Amputation of toe of left foot Wears contact lenses Wears glasses Connective tissue disease Walker as ambulation aid Ambulates with cane Arthritis History of IBS Heartburn Non-smoker CPAP (continuous positive airway pressure) dependence Fibromyalgia Sjogren syndrome with dental involvement Sjogren syndrome with keratoconjunctivitis Sjogren syndrome with peripheral nervous system involvement Lupus Home Medications ?Medication ?Instructions ?Recorded ?Last Taken ?Type cyclobenzaprine 10 mg tablet 10 mg PO TID PRN MUSCLE SPASMS 04/15/20 09/18/25 History duloxetine 60 mg capsule,delayed 120 mg PO DAILY mood 04/15/20 09/18/25 History release estradiol 1 mg tablet 1 mg PO DAILY .` 04/15/20 09/18/25 History gabapentin 300 mg capsule 300 mg PO BID ` 04/15/20 09/18/25 History hydroxychloroquine 200 mg tablet 200 mg PO BID ` 04/15/20 09/18/25 History lorazepam 1 mg tablet 1 mg PO DAILY PRN Anxiety 04/15/20 09/19/25 History zolpidem 10 mg tablet 10 mg PO QHS ` 04/15/20 09/18/25 History hydroxyzine HCl 25 mg tablet 12.5 - 50 mg PO TID PRN PRN anxiety 02/21/25 03/03/25 History Allergy/AdvReac Type Severity Reaction Status Date / Time Gadolinium-MRI Contrast Allergy Intermediate Hives Verified 09/19/25 10:14 Medium (CONTRAST) Iodinated Contrast Media (CT) Allergy Rash Verified 09/19/25 10:14 morphine Allergy Hives Verified 09/19/25 10:14 sertraline (From Zoloft) Allergy Swelling Verified 09/19/25 10:14 Family History Father Pseudocholinesterase deficiency Prostate cancer Mother CAD (coronary artery disease) Heart disease Hypertension Breast cancer Lupus Surgical History H/O wisdom tooth extraction H/O tubal ligation History of hysterectomy Hx of cholecystectomy Hx of Achilles tendon repair Social History household members: spouse Smoking Status: Never smoker alcohol intake: never substance use type: does not use ROS ROS Narrative Feeling tired. All review of systems were negative except as mentioned above in the history of present illness and the other review of systems. Vital Signs Vital Signs Vital Signs: 09/19/25 10:12 09/19/25 11:52 09/19/25 13:37 Temperature 36.5 C L 36.7 C 36.7 C Temperature Source Oral Oral Pulse Rate 112 H 97 97 Respiratory Rate 18 19 H 19 H Blood Pressure 155/102 H 127/84 H 127/84 H Blood Pressure Mean 119 98 98 Blood Pressure Source Blood Pressure Position Blood Pressure Location Pulse Ox 96 100 100 Oxygen Delivery Method Room Air Room Air 09/19/25 14:56 Temperature 36.6 C Temperature Source Temporal Pulse Rate 98 Respiratory Rate 16 Blood Pressure 119/68 Blood Pressure Mean 85 Blood Pressure Source Monitor Blood Pressure Position Semi-Fowlers Blood Pressure Location Left Arm Pulse Ox 99 Oxygen Delivery Method Room Air Weight Weight: 107.8 kg Body Mass Index (BMI) 36.1 Physical Exam Const alert and no apparent distress HEENT normocephalic and head/scalp atraumatic Cardio regular rate, regular rhythm, S1 normal heart sound and S2 normal heart sound GI normal to inspection, nondistended, normoactive bowel sounds, soft to palpation, non-tender and non-distended Extremity Extremity Narrative: Right foot wrapped, did not removed. Neuro Sensorium / Orientation: awake and alert Results Lab / Micro Data Attestation: I reviewed the patient's lab results. 09/19/25 11:05 09/19/25 11:05 Labs: Laboratory Results - last 24 hr 09/19/25 11:05: WBC 14.7 H, RBC 4.29, Hgb 11.6 L, Hct 36.5 L, MCV 85.1, MCH 27.0, MCHC 31.8 L, RDW Std Deviation 39.2, RDW Coeff of Jennifer 12.7, Plt Count 362, MPV 9.2, Immature Gran % (Auto) 0.300, Neut % (Auto) 72.6 H, Lymph % (Auto) 18.7 L, [place] % (Auto) 5.8, Eos % (Auto) 2.2, Baso % (Auto) 0.4, Absolute Neuts (auto) 10.7 H, Absolute Lymphs (auto) 2.75, Nucleated RBC % 0, ESR 61 H, Sodium 137, Potassium 3.9, Chloride 101, Carbon Dioxide 26.2, Anion Gap 11, BUN 15, Creatinine 0.87, Estim Creat Clear Calc 91.51, Est GFR (MDRD) Non-Af 76, BUN/Creatinine Ratio 16.7, Glucose 87, Calcium 9.7, C-React Prot Ext Range 114.00 H 09/19/25 12:30: S.aureus Protein A PCR POSITIVE H, MRSA (PCR) Negative Assessment & Plan Assessment/Plan (1) Foot infection: PLAN: Concern for osteomyelitis. Waiting on MRI of the foot that was performed earlier today. ESR 61 and CRP is 114. Antibiotics with pip-tazo and vancomycin. Podiatry on consultation and patient will be having surgery on the . The extent of surgery will be determined by podiatry based on the MRI. I did discuss with Dr. Underwood earlier today. PLAN: Plan Lupus: Continue with hydroxychloroquine Depression: Continue with duloxetine VTE prophylaxis with SCDs CODE STATUS: Verified with the patient. Patient wishes to be full code Case discussed with the patient's at bedside Charges/Coding Visit Charges Inpatient E&M: 01920 Init Hosp L2
[2025-09-19] MEDS: 0.9% Normal Saline (250mL Bag) 250 ML 15 ML IV (15:34)
[2025-09-19] MEDS: Piperacil/Tazobactam 3.375 GM in 0.9% Normal Saline (50mL MB+) 50 ML IV ×2 (15:35→21:31)
[2025-09-19] MEDS: Vancomycin HCl 2,000 MG in 0.9% Normal Saline (500mL Bag) 500 ML 250 MG IV (16:58)
--- NOTE | 2025-09-19 18:54 | NURSING ---
Dr. Underwood called earlier this evening around 1725 and asked about MRI results not being read yet. This RN contacted MRI and they said that it should have been read by now and she would call the Radiologist to ask to read it because it should have been read by now because it is stat. Dr. Underwood wanted nursing to call him when results were in the computer. This RN has checked several times and thus far it still has not been read. will pass along to Madina Amaya RN material handler 1st shift charge.
--- NOTE | 2025-09-19 20:50 | RAD_ITS ---
PROCEDURE: RIGHT FOOT MIN 3 VIEWS 09/19/2025 REASON FOR EXAM: INFECTION TECHNIQUE: Procedure Code: RADFO Modality: DX Procedure: FOOT MIN 3 VIEWS Laterality: Right COMPARISON: MRI earlier same day. Radiographs 02/22/2025. FINDINGS: Postoperative changes of ostectomy of the 1st MTP joint, resection of the distal 2nd ray at the distal interphalangeal joint, and distal 3rd ray at the proximal phalanx distal shaft. No evidence of acute fracture. Chronic dorsal dislocation of the 2nd MTP joint. Interval development of heterotopic ossification/callus about the distal aspect of the residual 1st metatarsal. Irregular cortical margins at the distal aspect of the 1st metatarsal remain suspicious for osteomyelitis at this location. Otherwise, no aggressive osseous erosion/destruction is appreciated, particularly in the region of the midfoot. There are moderate-advanced degenerative changes likely reflecting Charcot arthropathy involving the intertarsal and tarsometatarsal articulations with subchondral sclerosis and diffuse subchondral cyst formation. Small plantar calcaneal spur. Generalized soft tissue swelling/edema about the foot, with soft tissue ulceration at the dorsal and plantar aspect of the forefoot, in the plantar aspect of the midfoot. No radiopaque foreign body or deep subcutaneous emphysema is appreciated on this exam. RAD/Foot min 3 Views IMPRESSION: Chronic degenerative and postoperative changes, as described above. Irregular cortical margins at the distal aspect of the 1st metatarsal remain daniels spicious for osteomyelitis, as denoted on recent MRI. No other areas of aggressive osseous erosion appreciated. Generalized soft tissue swelling/edema about the foot, with soft tissue ulcerat ion at the dorsal and plantar aspect of the medial forefoot, and plantar aspect of the midfoot. No deep soft tissue emphysema appreciated on this exam. Reading Location: [id number]
[2025-09-19 20:56] VITALS: BP 113/64; PULSE 100; RESP 16; TEMP 36.6; O2SAT 95
[2025-09-20 02:00] VITALS: BP 99/60; PULSE 95; RESP 16; TEMP 36.6; O2SAT 95
[2025-09-20] MEDS: Vancomycin HCl 1,750 MG in 0.9% Normal Saline (500mL Bag) 500 ML 250 MG IV ×2 (02:39→16:23)
--- NOTE | 2025-09-20 06:00 | EKG12_ITS ---
Test Reason : PRE-OP Blood Pressure : */* mmHG Vent. Rate : 95 BPM Atrial Rate : 95 BPM P-R Int : 150 ms QRS Dur : 108 ms QT Int : 366 ms P-R-T Axes : 59 -24 36 degrees QTcB Int : 459 ms Normal sinus rhythm Normal ECG Confirmed by KEREN MAYES, TARA ([id number]), film and video editor TICO HERNÁNDEZ ([id number]) on 09/23/2025 1:27:41 PM Referred By: Akin Underwood Confirmed By: TARA VELIZ MD
[2025-09-20] MEDS: Piperacil/Tazobactam 3.375 GM in 0.9% Normal Saline (50mL MB+) 50 ML IV (06:05)
--- NOTE | 2025-09-20 06:34 | PCM.HOSP.N ---
Hospitalist Note Patient with onset swollen lips, moreso bottom lip. Currently on IV abx therapy for infection and also received contrast for an MRI with known contrast reaction listed as hives. Unsure exactly the source. Not on any LYNNE inhibitor or ARB. Will administer IV Solu-Medrol 125 mg IV x 1, Benadryl 25 mg IV x 1 and famotidine 20 mg IV x 1 but may have to reassess and alter medications.
[2025-09-20] MEDS: DiphenhydrAMINE 50 MG/ML Syringe 25 MG IV (06:46)
[2025-09-20] MEDS: Famotidine 200 MG/20 ML MDV 20 MG in 0.9% Normal Saline (Pres. free 8 ML 300 MG IV (06:46)
[2025-09-20 06:52] LABS: Hematocrit 31.1 % (37-47); Hemoglobin 10.1 g/dL (12.0-15.0); Immature Granulocytes Count 0.030 X10^3/uL (0.0-0.0); Mean Corp Hgb Conc 32.5 g/dL (32-36); Mean Corpuscular Volume 84.5 fL (81-99); Mean Platelet Vol. 8.6 fl (6.2-12.0); NRBC Flagged by Analyzer 0 % (0-5); Platelet Count 309 K/mm3 (150-450); RBC Distribution Width CV 12.6 % (11.6-14.6); RBC Distribution Width SD 38.9 fl (35.1-43.9); Red Blood Count 3.68 M/mm3 (4.2-5.4); White Blood Count 10.0 K/mm3 (4.4-11.0)
[2025-09-20] MEDS: 0.9% Saline Lock 10 ML Syringe IV (06:54)
[2025-09-20 07:30] LABS: Anion Gap 9 (5-15); BUN 13 mg/dL (4-19); BUN/Creat Ratio 12.0 RATIO (10-20); Calcium,Total 8.5 mg/dL (7.6-11.0); Carbon Dioxide 24.9 mmol/L (21.0-32.0); Chloride 105 mmol/L (98-108); Estimated Creatinine Clearance 73.98 ml/min (50-250); Glucose 91 mg/dL (70-99); Potassium 3.8 mmol/L (3.3-5.1)
[2025-09-20 08:54] VITALS: BP 135/74; PULSE 90; RESP 18; TEMP 36.7; O2SAT 97
--- NOTE | 2025-09-20 09:42 | PCM.CONS.GEN ---
Assessment & Plan Assessment/Plan (1) Cellulitis of foot, right: (2) Osteomyelitis of foot, right, acute: (3) Non-pressure chronic ulcer of other part of right foot with necrosis of muscle: (4) Other acquired deformities of right foot: (5) Charcot joint of right foot: PLAN: Plan Evaluation performed. Reviewed diagnostic data. Patient has been admitted for right foot infection. Right foot xrays and right foot MRI obtained and reviewed. Plan is for I+D right foot with debridement of wounds with bone biopsy right foot, will add on, given number of additional add on procedures from other surgeon's and OR availablilty today plan is for I+D and debridement right foot tomorrow morning. We discussed chcf function of right foot - currently it is very nonfunctional due to significant deformity of forefoot, along with chronic charcot midfoot changes. There is also MRI evidence of chronic osteomyelitis right 1st residual 1st metatarsal head. We discussed staged partial foot amputation, with bone planing also consideration to tendo achilles lengthening with goal to for plantigrade braceable foot chcf. This would be a staged procedure and be completed in the coming days after I+D debridement. A deep wound culture has been obtained plantar right foot wound - patient is on IV antibiotics - Vanc/Zosyn No weightbearing right foot. Wound care: betadine soln, gauze, kerlix and trang dressing changes daily. Podiatry will continue to follow. HPI Consult Data Date of Consult: 09/20/25 HPI Narrative HPI Narrative: CHAPO PEREZ, is a 60 F who presents for right foot infection. She was seen in my office yesterday due to relatively new wound on her plantar right foot, she relates has been there for likely at least a month but she relates she really does not know, she also has chronic wound plantar 1st ray on her right foot as well, which she relates has been there for several months. She relates she has been putting off coming in. It was noted there were signs/symptoms of infection to the plantar midfoot wound right foot - she was sent to ER and was admitted for IV antibiotics and further evaluation. WBC was elevated yesterday but improved today. She has been started on Vanc and Zosyn. She has hx of MRSA. MRI right foot and new right foot xrays have been obtained. She is resting comfortably in bed, at bedside. She has history of multiple infections right foot, s/p two 1st ray infections, right 2nd toe and 3rd toe infections and previous right 4th toe infection as well. She has Lupus and peripheral neuropathy. Also history of OREN from vancomycin. [facility] Medical History (Updated 09/20/25 @ 13:[address] Akin Underwood, DPJosemaunel) Other hereditary and idiopathic neuropathies Osteomyelitis of foot, right, acute Sleep apnea Anxiety Depression Rheumatoid arthritis Migraines Amputation of toe of left foot Wears contact lenses Wears glasses Connective tissue disease Walker as ambulation aid Ambulates with cane Arthritis History of IBS Heartburn Non-smoker CPAP (continuous positive airway pressure) dependence Fibromyalgia Sjogren syndrome with dental involvement Sjogren syndrome with keratoconjunctivitis Sjogren syndrome with peripheral nervous system involvement Lupus Home Medications ?Medication ?Instructions ?Recorded ?Last Taken ?Type cyclobenzaprine 10 mg tablet 10 mg PO TID PRN MUSCLE SPASMS 04/15/20 09/18/25 History duloxetine 60 mg capsule,delayed 120 mg PO DAILY mood 04/15/20 09/18/25 History release estradiol 1 mg tablet 1 mg PO DAILY .`menopause 04/15/20 09/18/25 History gabapentin 300 mg capsule 300 mg PO BID `pain 04/15/20 09/18/25 History hydroxychloroquine 200 mg tablet 200 mg PO BID `ra 04/15/20 09/18/25 History lorazepam 1 mg tablet 1 mg PO DAILY PRN Anxiety 04/15/20 09/19/25 History zolpidem 10 mg tablet 10 mg PO QHS `sleep 04/15/20 09/18/25 History hydroxyzine HCl 25 mg tablet 12.5 - 50 mg PO TID PRN PRN anxiety 02/21/25 03/03/25 History Allergy/AdvReac Type Severity Reaction Status Date / Time Gadolinium-MRI Contrast Allergy Intermediate Hives Verified 09/19/25 10:14 Medium (CONTRAST) Iodinated Contrast Media (CT) Allergy Rash Verified 09/19/25 10:14 morphine Allergy Hives Verified 09/19/25 10:14 sertraline (From Zoloft) Allergy Swelling Verified 09/19/25 10:14 Family History Father Pseudocholinesterase deficiency Prostate cancer Mother CAD (coronary artery disease) Heart disease Hypertension Breast cancer Lupus Surgical History H/O wisdom tooth extraction H/O tubal ligation History of hysterectomy Hx of cholecystectomy Hx of Achilles tendon repair Social History household members: spouse Smoking Status: Never smoker alcohol intake: never substance use type: does not use Physical Exam Const alert, oriented x3 and no apparent distress Constitutional Narrative: Right foot with small ulceration plantar midfoot which probes deep close to bone, there is no visible abscess, no fluctuance, no crepitus, there is some mild drainage c/w infection, erythema localized to plantar midfoot improved today, chronic ulceration to the plantar residual 1st metatarsal down to subcutaneous tissue with viable base and margins, no erythema, no other open wounds, no blistering, no visible abscess to rest of foot and ankle, CFT < 2 seconds to all toes, there is deformity of 1st MTPJ, there is contracture of lesser toes, dislocated 2nd MTPJ which is chronic, partial 3rd toe amputation, there is decreased plantar arch from chronic charcot arthroneuropathy right foot but there is no gross instability to TMT/midfoot c/w chronic charcot, no evidence of acute ischemia to right foot with normal temperature present, no evidence of DVT bilateral. Chronic peripheral neuropathy to lower extremities. Lab / Micro Data 09/20/25 06:42 09/20/25 06:42 Labs: Laboratory Results - last 24 hr 09/19/25 11:05: WBC 14.7 H, RBC 4.29, Hgb 11.6 L, Hct 36.5 L, MCV 85.1, MCH 27.0, MCHC 31.8 L, RDW Std Deviation 39.2, RDW Coeff of Jennifer 12.7, Plt Count 362, MPV 9.2, Immature Gran % (Auto) 0.300, Neut % (Auto) 72.6 H, Lymph % (Auto) 18.7 L, [place] % (Auto) 5.8, Eos % (Auto) 2.2, Baso % (Auto) 0.4, Absolute Neuts (auto) 10.7 H, Absolute Lymphs (auto) 2.75, Nucleated RBC % 0, ESR 61 H, Sodium 137, Potassium 3.9, Chloride 101, Carbon Dioxide 26.2, Anion Gap 11, BUN 15, Creatinine 0.87, Estim Creat Clear Calc 91.51, Est GFR (MDRD) Non-Af 76, BUN/Creatinine Ratio 16.7, Glucose 87, Calcium 9.7, C-React Prot Ext Range 114.00 H 09/19/25 12:30: S.aureus Protein A PCR POSITIVE H, MRSA (PCR) Negative 09/20/25 06:42: WBC 10.0, RBC 3.68 L, Hgb 10.1 L, Hct 31.1 L, MCV 84.5, MCH 27.4, MCHC 32.5, RDW Std Deviation 38.9, RDW Coeff of Jennifer 12.6, Plt Count 309, MPV 8.6, Immature Gran % (Auto) 0.300, Neut % (Auto) 64.5, Lymph % (Auto) 23.7, [place] % (Auto) 6.5, Eos % (Auto) 4.5, Baso % (Auto) 0.5, Absolute Neuts (auto) 6.5, Absolute Lymphs (auto) 2.37, Nucleated RBC % 0, Sodium 139, Potassium 3.8, Chloride 105, Carbon Dioxide 24.9, Anion Gap 9, BUN 13, Creatinine 1.04, Estim Creat Clear Calc 73.98, Est GFR (MDRD) Non-Af 62, BUN/Creatinine Ratio 12.0, Glucose 91, Calcium 8.5 Imaging Radiology Impression Lower Extremity MRI 09/19/25 10:53 IMPRESSION: 1. Postoperative changes with multiple partial digit amputations, as described. 2. Osteomyelitis involving the distal aspect of the 1st metatarsal. Surrounding soft tissue edema and ulceration at the overlying dorsal and plantar aspect of the medial forefoot, with scattered foci of subcutaneous emphysema suggesting infection with gas-forming organisms. 3. No rim enhancing drainable fluid collection/abscess visualized. 4. Advanced degenerative/arthritic changes involving the intertarsal and tarsometatarsal articulations with heterogeneous marrow signal/edema and extensive subchondral cyst formations. Infection in this location is not apparent on prior radiographs, but cannot be reliably excluded on this exam. 5. 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 Reading Location: [id number] Foot X-Ray 09/19/25 20:50 IMPRESSION: Chronic degenerative and postoperative changes, as described above. Irregular cortical margins at the distal aspect of the 1st metatarsal remain suspicious for osteomyelitis, as denoted on recent MRI. No other areas of aggressive osseous erosion appreciated. Generalized soft tissue swelling/edema about the foot, with soft tissue ulceration at the dorsal and plantar aspect of the medial forefoot, and plantar aspect of the midfoot. No deep soft tissue emphysema appreciated on this exam. Reading Location: [facility]
--- NOTE | 2025-09-20 10:31 | PCM.PN.HOSP ---
Reason for Visit Chief Complaint: Foot wounds Subjective Subjective No events overnight feel anxious about surgery though today. Her lips did become swollen last night and she did receive methylprednisolone, diphenhydramine and famotidine. Currently the swellings are actually better. Objective Data Objective Data Vital Signs: Vital Signs Temp Pulse Resp BP Pulse Ox O2 Del Method 36.7 C 90 18 135/74 H 97 Room Air 09/20/25 08:54 09/20/25 08:54 09/20/25 08:54 09/20/25 08:54 09/20/25 08:54 09/20/25 08:59 Oxygen Delivery Method Room Air Weight: 107.8 kg Body Mass Index (BMI) 36.1 Intake & Output: Intake and Output for Last 24 Hours 09/18/25 09/19/25 09/20/25 23:59 23:59 23:59 Intake Total 690.25 / 690.25 627.08 / 627.08 Output Total Balance 690.25 / 689.25 626.08 / 626.08 Lab / Micro Data 09/20/25 06:42 09/20/25 06:42 Labs: Laboratory Results - last 24 hr 09/19/25 11:05: WBC 14.7 H, RBC 4.29, Hgb 11.6 L, Hct 36.5 L, MCV 85.1, MCH 27.0, MCHC 31.8 L, RDW Std Deviation 39.2, RDW Coeff of Jennifer 12.7, Plt Count 362, MPV 9.2, Immature Gran % (Auto) 0.300, Neut % (Auto) 72.6 H, Lymph % (Auto) 18.7 L, [place] % (Auto) 5.8, Eos % (Auto) 2.2, Baso % (Auto) 0.4, Absolute Neuts (auto) 10.7 H, Absolute Lymphs (auto) 2.75, Nucleated RBC % 0, ESR 61 H, Sodium 137, Potassium 3.9, Chloride 101, Carbon Dioxide 26.2, Anion Gap 11, BUN 15, Creatinine 0.87, Estim Creat Clear Calc 91.51, Est GFR (MDRD) Non-Af 76, BUN/Creatinine Ratio 16.7, Glucose 87, Calcium 9.7, C-React Prot Ext Range 114.00 H 09/19/25 12:30: S.aureus Protein A PCR POSITIVE H, MRSA (PCR) Negative 09/20/25 06:42: WBC 10.0, RBC 3.68 L, Hgb 10.1 L, Hct 31.1 L, MCV 84.5, MCH 27.4, MCHC 32.5, RDW Std Deviation 38.9, RDW Coeff of Jennifer 12.6, Plt Count 309, MPV 8.6, Immature Gran % (Auto) 0.300, Neut % (Auto) 64.5, Lymph % (Auto) 23.7, [place] % (Auto) 6.5, Eos % (Auto) 4.5, Baso % (Auto) 0.5, Absolute Neuts (auto) 6.5, Absolute Lymphs (auto) 2.37, Nucleated RBC % 0, Sodium 139, Potassium 3.8, Chloride 105, Carbon Dioxide 24.9, Anion Gap 9, BUN 13, Creatinine 1.04, Estim Creat Clear Calc 73.98, Est GFR (MDRD) Non-Af 62, BUN/Creatinine Ratio 12.0, Glucose 91, Calcium 8.5 Radiography Diagnostic Testing: Radiology Impression Lower Extremity MRI 09/19/25 10:53 IMPRESSION: 1. Postoperative changes with multiple partial digit amputations, as described. 2. Osteomyelitis involving the distal aspect of the 1st metatarsal. Surrounding soft tissue edema and ulceration at the overlying dorsal and plantar aspect of the medial forefoot, with scattered foci of subcutaneous emphysema suggesting infection with gas-forming organisms. 3. No rim enhancing drainable fluid collection/abscess visualized. 4. Advanced degenerative/arthritic changes involving the intertarsal and tarsometatarsal articulations with heterogeneous marrow signal/edema and extensive subchondral cyst formations. Infection in this location is not apparent on prior radiographs, but cannot be reliably excluded on this exam. 5. 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 Reading Location: [id number] Foot X-Ray 09/19/25 20:50 IMPRESSION: Chronic degenerative and postoperative changes, as described above. Irregular cortical margins at the distal aspect of the 1st metatarsal remain suspicious for osteomyelitis, as denoted on recent MRI. No other areas of aggressive osseous erosion appreciated. Generalized soft tissue swelling/edema about the foot, with soft tissue ulceration at the dorsal and plantar aspect of the medial forefoot, and plantar aspect of the midfoot. No deep soft tissue emphysema appreciated on this exam. Reading Location: [id number] Physical Exam Const alert and no apparent distress HEENT head/scalp atraumatic and moist oral mucous membranes HEENT Narrative: Lip slightly swollen but patient is breathing comfortably not having any stridor. Resp normal respiratory effort and no retractions Extremity Extremity Narrative: Right foot bandaged. Did not remove. Neuro Sensorium / Orientation: awake and alert Assessment & Plan Assessment/Plan (1) Foot infection: PLAN: MRI of the foot: Showed osteomyelitis involving the distal aspect of the first metatarsal. Surrounding soft tissue edema and ulceration at the overlying dorsal and plantar aspect of the medial forefoot with scattered foci of subcutaneous emphysema suggesting infection and with gas-forming organisms. Antibiotics with pip-tazo and vancomycin. Podiatry on consultation and patient will be having surgery on the . The extent of surgery will be determined by podiatry based on the MRI. I did discuss with Dr. Underwood earlier today. (2) Allergic reaction: PLAN: Patient has allergies noted to gadolinium MRI contrast and she did receive that yesterday. Patient did not receive premedication with the MRI that was ordered with contrast yesterday that was ordered in the emergency room. I feel that that was likely the cause of allergic action rather than the penicillin was Zosyn but we will change her antibiotics to meropenem. Will continue to monitor. But I do not anticipate any further issues with this. PLAN: Plan Lupus: Continue with hydroxychloroquine Depression: Continue with duloxetine VTE prophylaxis with SCDs CODE STATUS: Verified with the patient. Patient wishes to be full code Case discussed with the patient's at bedside Discussed with the patient's daughter at bedside. Charges/Coding Visit Charges Inpatient E&M: 78209 Subs Hosp L2
--- NOTE | 2025-09-20 13:29 | CT_ITS ---
PROCEDURE: EXTREMITY LOWER WITHOUT CONTRA 09/20/2025 REASON FOR EXAM: RIGHT FOOT Foot pain. TECHNIQUE: Procedure Code: CTELWO Modality: CT Procedure: EXTREMITY LOWER WITHOUT CONTRA Coronal and Sagittal reconstruction series were provided. CONTRAST: None One or more dose reduction techniques were used (e.g., Automated exposure control, adjustment of the mA and/or kV according to patient size, use of iterative reconstruction technique). RADIATION DOSE SUMMARY: CTDlvol: 15.4 mGy DLP: 428 mGycm COMPARISON: Yesterday's MR. FINDINGS: Bones: Previous resection of the distal aspect of the 1st metatarsal with chronic changes to the distal aspect of the 1st metatarsal. Ill-defined soft tissues at the previous location of the 1st metatarsophalangeal joint with no subcutaneous air. On the recent MR there was residual bone marrow edema in the distal aspect of the 1st metatarsal. Soft tissue ulceration along the plantar aspect of the 1st metatarsophalangeal joint. Suspect chronic fracture of the proximal 2nd metatarsal. Sclerotic appearance to the proximal 4th metatarsal without erosive changes. There is neuropathic appearance to the midfoot with subchondral cyst formation and degenerative changes but no evidence of acute erosive changes. Distal tibia and fibula negative. No other fractures. Joints: Extensive degenerative changes particularly in the midfoot. Soft Tissues: Soft tissue ulceration along the plantar aspect of the foot overlying the midfoot. No radiopaque foreign bodies or subcutaneous emphysema. CT/Extremity Lower without Contra IMPRESSION: Cellulitis of the plantar aspect of the foot. Surgical changes of the 1st metatarsophalangeal joint. Can not exclude osteomy elitis of the distal aspect of the 1st metatarsal Additionally there is overlying plantar ulcer. Neuropathic appearance to the foot with suspected chronic fractures of the 2nd and 4th proximal metatarsals. Reading Location: [id number]
[2025-09-20] MEDS: Meropenem 1 GM in 0.9% Normal Saline (100mL MB+) 100 ML IV ×2 (14:28→22:03)
[2025-09-20 14:37] VITALS: BP 123/79; PULSE 100; RESP 16; TEMP 36.6; O2SAT 95
[2025-09-20] MEDS: hydrOXYzine PAM 25 MG Capsule PO (19:44)
--- NOTE | 2025-09-20 20:49 | PCM.HOSP.N ---
Hospitalist Note Pt seen and examined at bedside. Pt very tearful and reporting significant anxiety regarding surgery tomorrow. Pt received vistaril for anxiety and reports it did not help at all. Pt is requesting additional x1 ativan for tonight. Ordered 1 mg po ativan x 1 at this time.
[2025-09-20 21:59] VITALS: BP 132/80; PULSE 92; RESP 18; TEMP 36.6; O2SAT 95
[2025-09-21] VITALS (10 sets, daily range): BP systolic 112–153; BP diastolic 65–99; PULSE 79–89; RESP 16–18; TEMP 36.1–37.2; O2SAT 94–96; BMI 38.2
[2025-09-21 03:11] LABS: Vancomycin, Trough Level 24.3 ug/mL (5.0-15.0)
--- NOTE | 2025-09-21 03:38 | PCM.RX.CS ---
Consult Antibiotic Management Pharmacy has been consulted to manage selected antibiotic: Vancomycin Type of Intervention Type of Consult: Follow-up Labs Labs: Sodium 139 mmol/L (133-145) 09/20/25 06:42 Potassium 3.8 mmol/L (3.3-5.1) 09/20/25 06:42 Chloride 105 mmol/L (98-108) 09/20/25 06:42 Carbon Dioxide 24.9 mmol/L (21.0-32.0) 09/20/25 06:42 Anion Gap 9 (5-15) 09/20/25 06:42 BUN 13 mg/dL (4-19) 09/20/25 06:42 Creatinine 1.04 mg/dL (0.70-1.20) 09/20/25 06:42 Est GFR (MDRD) Non-Af 62 (>60) 09/20/25 06:42 BUN/Creatinine Ratio 12.0 RATIO (10-20) 09/20/25 06:42 Glucose 91 mg/dL (70-99) 09/20/25 06:42 Vancomycin Trough 24.3 ug/mL (5.0-15.0) H 09/21/25 02:44 Microbiology Microbiology: Microbiology 09/19/25 15:40 Wound - Right Foot Gram Stain - Final 09/19/25 15:40 Wound - Right Foot Wound Culture - Preliminary Staphylococcus species Gram positive anthony 09/19/25 12:30 Wound - Right Foot Gram Stain - Final 09/19/25 12:30 Wound - Right Foot Wound Culture - Preliminary Gram negative anthony Mixed Gram Positive Organisms Goal Trough Goal Trough: 15-20 mcg/mL Pharmacy Plan for Drug Dosing Pharmacy Plan for Drug Dosing: Pharmacy Service will continue to monitor and adjust dosing as required. TROUGH 24.3 @ 10.5 HOURS. HOLD DOSE AND DRAW RANDOM LEVEL IN 12 HOURS Follow-Up Labs Follow-Up Labs: Trough: Vancomycin Date/Time Labs Ordered Labs to be done on [date and time ordered]: 09/21 @ 1430
--- NOTE | 2025-09-21 05:30 | PCM.HOSP.N ---
Hospitalist Note Patient with again concern for allergic reaction with flushed face, swollen face. Will DC vancomycin and meropenem. At this time we will transition completely to IV linezolid and unfortunately very restricted thus we will go with IV Levaquin. Will administer Solu-Medrol 100 mg IV x 1, Benadryl 50 mg IV x 1, famotidine 20 mg IV x 1. May need to consider infectious disease consultation.
[2025-09-21] MEDS: Famotidine 200 MG/20 ML MDV 20 MG in 0.9% Normal Saline (Pres. free 8 ML 300 MG IV (05:53)
[2025-09-21] MEDS: 0.9% Saline Lock 10 ML Syringe IV ×2 (05:53→21:08)
[2025-09-21] MEDS: DiphenhydrAMINE 50 MG/ML Syringe IV (05:53)
[2025-09-21] MEDS: levoFLOXacin IV 750 MG/150 ML BAG 100 MG IV (06:56)
--- NOTE | 2025-09-21 07:30 | BONBX_PTH ---
PATIENT: CHAPO PEREZ LOC: [facility] U#:[id number] AGE/SX: 60/F [place] [facility] [place]: Dr. Caleb Lo DO : 1965 BED: 1 DIS: 09/27/2025 SPEC #: [id number] RECD: 09/21/25 09:15 STATUS: MARLA REQ #: [id number] SILVER: 09/21/25 07:[address]: Akin Underwood DEPT: SURGICAL PATHOLOGY RECD BY: Rosalina Taylor ENTERED: 09/22/25 09:18 SP TYPE: Bone OTHR DR: DO Dr. Akin Dudley, DPM MD Dr. Fara Parks MD Dr. Robert Leininger, MD Rachel Edgar, CLOTHING MANAGER-C Tissues: A - Bone of foot, NOS B - Bone of foot, NOS C - ULCER Procedures: Decalcification bone/plaque Surgery Specimen Level III Surgery Specimen Level V Comments: @ Ordering doctor for DEC edited from to @ by SHREE at 09/25/25 0854 @ Ordering doctor for SUIII edited from to @ by SHREE at 09/25/25 0854 @ Ordering doctor for SUV edited from to @ by SHREE at 09/25/25 0854 @ Submitting doctor edited from to DR.JWUNNI Whaley by SHREE at 09/25/25 0854 HEADER OPERATION: Debridement wound and bone biopsy right foot PRE-OP DIAGNOSIS: Foot infection TISSUE SUBMITTED: A- 1st metatarsal bone - right, B- Midfoot bone- right, C- Debrided wound and ulcer - right foot MICROSCOPIC DIAGNOSIS A. Bone, metatarsal, first, biopsy: * Bone with areas of marrow fibrosis, negative for inflammation B. Bone, mid foot, right, biopsy: * Bone with fatty marrow, negative for inflammation C. Skin and soft tissue, foot, right, debridement: * Hyperkeratotic and acanthotic skin with ulceration and subcutaneous tissue with marked acute and chronic inflammation, granulation tissue, hemorrhage and necrosis MICROSCOPIC DESCRIPTION Slides are reviewed. GROSS DESCRIPTION Received in 3 formalin containers labeled with the patient's name and date of . Designated as: A. First metatarsal bone right is a 2.3 x 0.3 cm centrally fragmented hernández bone core. Entirely submitted in 1 cassette, following decalcification. B. Right mid foot bone is a is a 1.1 x 0.8 x 0.1 cm aggregate of hernández-pink to red bone fragments. Entirely submitted in 1 cassette, following decalcification. C. Debrided wound and ulcer-right foot is a 4.3 x 2.9 x 0.8 cm aggregate of pink-red irregular, rubbery tissue fragments and hernández skin. Foreman/Project Manager sections are submitted in 2 cassettes, to include the skin in cassette C2. [place] 09/22/2025 CPT:[id number]
--- NOTE | 2025-09-21 07:38 | PRE.ANES_ITS ---
ASA Classification* ASA Classification ASA Classification: 3 and E Assessment & Plan Anesthesia* Anesthesia Assessment Anesthesia Assessment: Discussed sedation and/or anesthesia options, risks, benefits, and alternatives with patient/parents/legal guardian/POA. Questions invited. The patient/parents/legal guardian/POA seems to understand and agrees to proceed with anesthesia plan. Reviewed the physical assessment, medical history, allergy history and patient home medications list prior to surgery/procedure/anesthetic and documented any changes. Performed airway and anesthesia risk assessments. Anesthesia Type Anesthesia Type: MAC Anesthesia Focused Assessment* Temperature: 97.7 F Pulse Rate: 86 Blood Pressure: 112/65 Respiratory Rate: 16 Pulse Ox: 95 Airway Assessment Mouth opens: >3 cm Mallampati Score: II Labs Anesthesia Preop lab: CBC WBC, (4.4-11.0) 10.0 K/mm3 09/20/25, 06:42 RBC, (4.2-5.4) 3.68 M/mm3 L 09/20/25, 06:42 Hgb, (12.0-15.0) 10.1 g/dL L 09/20/25, 06:42 Hct, (37-47) 31.1 % L 09/20/25, 06:42 Plt Count, (150-450) 309 K/mm3 09/20/25, 06:42 CHEMISTRY Potassium, (3.3-5.1) 3.8 mmol/L 09/20/25, 06:42 Sodium, (133-145) 139 mmol/L 09/20/25, 06:42 BUN, (4-19) 13 mg/dL 09/20/25, 06:42 Creatinine, (0.70-1.20) 1.04 mg/dL 09/20/25, 06:42 Glucose, (70-99) 91 mg/dL 09/20/25, 06:42 COAG PT, (11.7-14.9) 14.2 SECONDS 03/30/23, 13:40 Pre-Assessment Diagnosis/Proposed Procedure Planned Operative Procedure(s): I and D Anesthesia History Anesthesia History - living supervisor: Anesthesia History - living supervisor Hx Hospitalization No 11/02/23 09:04 Any Problems With Anesthesia No 09/19/25 22:31 Cholinesterase deficiency No 09/19/25 22:31 You/Your Family Experience No 09/19/25 22:31 fever (hyperthermia) with Relationship Recent Exposure to Contagious No 09/19/25 22:31 Disease Does patient have nerve No 09/19/25 22:31 stimulator Patient instructed to have device shut off --Does patient have Pacemaker No 09/21/25 04:38 or ICD? When Was Last Pacemaker Check QUESTION #4 FULL TEXT: You/Your Family Experience fever (hyperthermia) with Anesthesia Last Oral Intake Last Oral intake: Last Oral Intake NPO since 00:00 09/21/25 04:38 Meds taken in AM with sips of No 09/21/25 04:38 water? Meds patient instructed to take am of surgery PONV PONV - living supervisor: PONV - living supervisor Female HX of Motion Sickness HX of N/V After Surgery Non-Smoker Duration of Surgery greater than 60 minutes Number of Risk Factors PONV Score Height & Weight Height & Weight: Anesthesia: Height & Weight Height 5 ft 8 in 09/21/25 04:38 Weight: 114.2 kg 09/21/25 04:38 Body Mass Index (BMI) 38.2 09/21/25 04:38 Respiratory Assessment Respiratory Assessment - living supervisor: Respiratory Tract Infection Hx - living supervisor Hx Respiratory Tract Infection No 09/19/25 22:31 STOP Sleep Apnea STOP Sleep Apnea - living supervisor: STOP Sleep Apnea - living supervisor Hx Hypertension No 09/19/25 14:38 Hx Sleep Apnea Yes 09/19/25 14:38 CPAP No 09/19/25 14:38 BIPAP No 09/19/25 14:38 Do you snore loudly (louder than talking or can be heard Do you often feel tired/ fatigued/ sleepy during daytime? Has anyone observed you stop breathing during sleep? STOP Results Positive 09/19/25 14:38 QUESTION #5 FULL TEXT : Do you snore loudly (louder than talking or can be heard through closed doors)? 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 Specify any problems Hx of Preganancy in last 3 N/A 09/19/25 14:38 Months Nurse Filling Out Transfusion KBORNSTIN 09/19/25 14:38 & Questions: Date: 09/19/25 09/19/25 14:38 Time: 14:53 09/19/25 14:38 Patient unable to answer at this time (ie. confused, unrespo /Reproduction History /Reproductive History - living supervisor: /Reproductive Hx- living supervisor Hx Now No 09/19/25 22:31 Gestational Age (in weeks): EDC: Hx Hx Para Hx Section SAB No 09/19/25 22:31 Does the father of the baby or his family experience fever w Father of the baby Malignant Hypertension history comment Active Medications Active Medications: Current Medications Generic Name Dose Route Start Last Admin Trade Name Freq PRN Reason Stop Dose Admin Acetaminophen 650 mg 09/19/25 14:33 09/20/25 22:08 Acetaminophen 325 Mg Tablet PO 650 mg Q6H PRN PRN Administration Pain 1-10 Or Fever >100.7 Duloxetine HCl 120 mg 09/20/25 10:00 09/20/25 08:37 Duloxetine Hcl 60 Mg Capsule PO 120 mg On Hold: 09/21/25 06:26 DAILY CALI Administration Estradiol 1 mg 09/20/25 10:00 09/20/25 08:38 Estradiol 1 Mg Tablet PO 1 mg DAILY CALI Administration Gabapentin 300 mg 09/19/25 22:00 09/20/25 22:05 Gabapentin 300 Mg Capsule PO 300 mg BID CALI Administration Hydroxychloroquine Sulfate 200 mg 09/19/25 22:00 09/20/25 22:05 Hydroxychloroquine 200 Mg Tablet PO 200 mg BID CALI Administration Hydroxyzine Pamoate 12.5 - 50 mg 09/19/25 14:33 09/20/25 19:44 Hydroxyzine Maryan 25 Mg Capsule PO 50 mg TID PRN PRN Administration ANXIETY Sodium Chloride 250 mls @ 15 mls/hr 09/19/25 14:39 09/19/25 15:35 IV 0 mls/hr .[id number] PRN Infusion Saline Flush Sodium Chloride 250 mls @ 15 mls/hr 09/19/25 14:39 IV .[id number] PRN Additional IVPB Infusion Meropenem 1 gm/ Sodium 100 mls @ 33 mls/hr 09/20/25 14:00 09/21/25 05:37 Chloride IV Not Given Q8 CALI Linezolid 600 mg in 300 mls @ 200 mls/hr 09/21/25 10:00 Zyvox 600mg IV Q12 CALI Levofloxacin 750 mg in 150 mls @ 100 mls/hr 09/21/25 06:25 09/21/25 06:56 Levaquin Iv IV 100 mls/hr Q24 CALI Administration L-Arginine/L-Glutamine/Calcium HMB 1 packet 09/19/25 17:00 09/21/25 07:15 Yosvany (Unflavored) Packet PO Not Given BIDCM CALI Lorazepam 1 mg 09/19/25 14:33 09/20/25 06:54 Lorazepam 1 Mg Tablet PO 1 mg DAILY PRN Administration ANXIETY Ondansetron HCl 4 mg 09/19/25 14:33 Ondansetron 4 Mg/2 Ml Vial IV Q8H PRN PRN NAUSEA/VOMITING Oxycodone HCl 2.5 - 5 mg 09/19/25 14:33 09/20/25 12:19 Oxycodone 5 Mg Tablet PO 5 mg Q4H PRN PRN Administration Pain Score 4-10 Sodium Chloride 10 - 40 ml 09/19/25 14:39 09/21/25 05:53 0.9% Saline Lock 10 Ml Syringe IV 30 ml UD PRN Administration SALINE FLUSH Zolpidem Tartrate 10 mg 09/19/25 14:49 09/19/25 21:31 Zolpidem Tartrate 5 Mg Tablet PO 10 mg QHS PRN Administration INSOMNIA PFSH Medical History Other hereditary and idiopathic neuropathies Osteomyelitis of foot, right, acute Sleep apnea Anxiety Depression Rheumatoid arthritis Migraines Amputation of toe of left foot Wears contact lenses Wears glasses Connective tissue disease Walker as ambulation aid Ambulates with cane Arthritis History of IBS Heartburn Non-smoker CPAP (continuous positive airway pressure) dependence Fibromyalgia Sjogren syndrome with dental involvement Sjogren syndrome with keratoconjunctivitis Sjogren syndrome with peripheral nervous system involvement Lupus Home Medications ?Medication ?Instructions ?Recorded ?Last Taken ?Type cyclobenzaprine 10 mg tablet 10 mg PO TID PRN MUSCLE S PASMS 04/15/20 09/18/25 History duloxetine 60 mg capsule,delayed 120 mg PO DAILY mood 04/15/20 09/18/25 History release estradiol 1 mg tablet 1 mg PO DAILY .`menopause 09/18/25 History gabapentin 300 mg capsule 300 mg PO BID `pain 04/15/20 09/18/25 History hydroxychloroquine 200 mg tablet 200 mg PO BID `ra 05/2809/18/25 History lorazepam 1 mg tablet 1 mg PO DAILY PRN Anxiety 09/19/25 History zolpidem 10 mg tablet 10 mg PO QHS `sleep 04/15/20 09/18/25 History hydroxyzine HCl 25 mg tablet 12.5 - 50 mg PO TID PRN P RN anxiety 02/21/25 03/03/25 History Allergy/AdvReac Type Severity Reaction Status Date / Time Gadolinium-MRI Contrast Allergy Intermediate Hives Verified 09/19/25 10:14 Medium (CONTRAST) Iodinated Contrast Media (CT) Allergy Rash Verified 09/19/25 10:14 morphine Allergy Hives Verified 09/19/25 10:14 sertraline (From Zoloft) Allergy Swelling Verified 09/19/25 10:14 Family History Father Pseudocholinesterase deficiency Prostate cancer Mother CAD (coronary artery disease) Heart disease Hypertension Breast cancer Lupus Surgical History H/O wisdom tooth extraction H/O tubal ligation History of hysterectomy Hx of cholecystectomy Hx of Achilles tendon repair Social History household members: spouse Smoking Status: Never smoker alcohol intake: never substance use type: does not use Review of Systems (Anesthesia) ROS Narrative System reviewed and no additional complaints, except as documented.
--- NOTE | 2025-09-21 08:13 | PCM.PN.HOSP ---
Reason for Visit Chief Complaint: Foot wounds Subjective Subjective Again, patient had facial/lips swelling necessitating methylpred + famotidine + diphenhydramine. Was very emotionally labile today. Requiring some lorazepam. Objective Data Objective Data Vital Signs: Vital Signs Temp Pulse Resp BP Pulse Ox O2 Del Method 36.5 C L 86 16 112/65 95 Room Air 09/21/25 07:38 09/21/25 07:38 09/21/25 07:38 09/21/25 07:38 09/21/25 07:38 09/21/25 04:40 Oxygen Delivery Method Room Air Weight: 114.2 kg Body Mass Index (BMI) 38.2 Intake & Output: Intake and Output for Last 24 Hours 09/19/25 09/20/25 09/21/25 23:59 23:59 23:59 Intake Total 690.25 / 690.25 1762.08 / 1762.08 110 / 110 Output Total 800 / 800 Balance 690.25 / 689.25 1761.08 / 1761.08 -690 / -690 Lab / Micro Data 09/20/25 06:42 09/20/25 06:42 Labs: Laboratory Results - last 24 hr 09/21/25 02:44: Vancomycin Trough 24.3 H Micro: Microbiology 09/19/25 15:40 Wound - Right Foot Gram Stain - Final 09/19/25 15:40 Wound - Right Foot Wound Culture - Preliminary Staphylococcus species Gram positive anthony 09/19/25 12:30 Wound - Right Foot Gram Stain - Final 09/19/25 12:30 Wound - Right Foot Wound Culture - Preliminary Gram negative anthony Mixed Gram Positive Organisms Radiography Diagnostic Testing: Radiology Impression Lower Extremity CT 09/20/25 13:29 IMPRESSION: Cellulitis of the plantar aspect of the foot. Surgical changes of the 1st metatarsophalangeal joint. Can not exclude osteomyelitis of the distal aspect of the 1st metatarsal Additionally there is overlying plantar ulcer. Neuropathic appearance to the foot with suspected chronic fractures of the 2nd and 4th proximal metatarsals. Reading Location: [id number] Physical Exam Const alert and no apparent distress Constitutional Narrative: Nontoxic. Afebrile. HEENT head/scalp atraumatic and moist oral mucous membranes Extremity Extremity Narrative: Right foot casted and bandaged, did not removed. Assessment & Plan Assessment/Plan (1) Foot infection: PLAN: MRI of the foot: Showed osteomyelitis involving the distal aspect of the first metatarsal. Surrounding soft tissue edema and ulceration at the overlying dorsal and plantar aspect of the medial forefoot with scattered foci of subcutaneous emphysema suggesting infection and with gas-forming organisms. Podiatry on consultation and patient will be having surgery on the . The extent of surgery will be determined by podiatry based on the MRI. Abx with levofloxacin and linezolid. ID to assist with abx. Discussed with Dr. Underwood, he is concerned that the surgery may ultimately not take given the patient's Charcot foot. He is going to talk to the patient and her family on the at 1700 about the possibility of midfoot amputation versus BKA. (2) Allergic reaction: PLAN: Patient has allergies noted to gadolinium MRI contrast and she did receive that yesterday. Patient did not receive premedication with the MRI that was ordered with contrast yesterday that was ordered in the emergency room. I feel that that was likely the cause of allergic action rather than the penicillin was Zosyn but we will change her antibiotics to meropenem. Will continue to monitor. Recurred again, so this is unlikely due to the gadolinium. Abx now changed to levofloxacin and linezolid. Unclear what the causative agent was, it may be a combination: gadolinium, pip/tazo, meropenem, vancomycin. PLAN: Plan Lupus: Continue with hydroxychloroquine Depression/anxiety: The duloxetine was held as linezolid has been started. Patient was still anxious even before that was discontinued. Patient clearly upset about her foot and the surgeries and potential surgeries that may be in-store with her. I spoke with her and she and that I did inform them that the duloxetine was being held because of the linezolid. Will increase her lorazepam to 3 times daily as needed for anxiety. VTE prophylaxis with SCDs CODE STATUS: Verified with the patient. Patient wishes to be full code Discussed with the patient's at bedside Charges/Coding Visit Charges Inpatient E&M: 59545 Subs Hosp L2
--- NOTE | 2025-09-21 08:59 | PCM.POST.ANE ---
Anesthesia: Postop Eval I Current Vital Signs Temperature: 98 F Pulse Rate: 84 Blood Pressure: 130/84 Respiratory Rate: 16 Pulse Ox: 94 (ra) Assessment Airway patent: Yes Spontaneous unlabored respirations: Yes nausea: No Vomiting: No Anesthesia Complication: No Fluid Hydration Crystalloid volume administer (ml): 300 Total IV fluid infused: 300 Progress Note Anesthesia document: Postop Eval 1 completed: Yes
--- NOTE | 2025-09-21 09:00 | PCM.POSTANE2 ---
Anesthesia Postop Eval I Sum Postop Eval Completion status Anesthesia document: Postop Eval 1 completed: Yes Anesthesia Postop Eval I Summary Anesthesia Postop Eval I Summary: Anesthesia Postop Eval I: Assessment Summary Airway patent Yes 09/21/25 08:59 Spontaneous unlabored Yes 09/21/25 08:59 respirations Mental status nausea No 09/21/25 08:59 Vomiting No 09/21/25 08:59 Anesthesia Postop Eval I: Fluid Summary Crystalloid volume administer 300 09/21/25 08:59 (ml) Colloids volume administered ( ml) Blood Product volume administered (ml) Total IV fluid infused 300 09/21/25 08:59 Anesthesia Postop Eval I: Summary Notes Anesthesia Complication No 09/21/25 08:59 Anesthesia Complication Comment: Post-operative progress note Anesthesia: Postop Eval II Evaluation Mental status: Awake Pain Level: 0 nausea: No Vomiting: No
--- NOTE | 2025-09-21 09:12 | OP.PCM_ITS ---
Operative Report (Standard) Operative Information Date of Procedure: 09/21/25 Pre-Operative Diagnosis: Ulceration down to and including nonviable fascia/muscle layer right foot Ulceration down to and including subcutaneous tissue layer right foot Osteomyelitis right foot Post-Operative Diagnosis: Same Surgery/Procedure Performed: Debridement of ulceration down to and including fascia/muscle layer right foot Debridement of ulceration down to and including subcutaneous tissue layer right foot Bone biopsy right foot linoleum printer: No Type of Anesthesia: Local MAC RN Documented Start/Stop Times: Operation Date: 09/21/25 07:30 Case Time Anesthesia Start 09/21/25 07:39 Into Room 09/21/25 07:39 Procedure Start 09/21/25 08:12 Procedure End 09/21/25 08:59 Anesthesia End 09/21/25 09:07 Out of Room 09/21/25 09:07 Into Recovery 09/21/25 09:11 Out of Recovery 09/21/25 09:38 Procedure Start Time: 08:12 Procedure Stop Time: 09:07 Select all DRAINS/GRAFTS/IMPLANTS that apply: None Estimated Blood Loss: 20mL Specimen collected: Yes Description of specimen(s) removed: Bone right 1st metatarsal sent to pathology and microbiology Bone right Tarsometatarsal/midfoot sent to pathology and microbiology Debrided ulcerations right foot sent to pathology Description of surgery: Indications: Patient is a 60 year female with complex history to right foot due to Lupus, peripheral neuropathy, hx of MRSA and multiple infections and surgerys to right foot presents with infection and wounds right foot. Due to the infection with nonviable, necrotic tissues and concern for osteomyelitis we discussed OR debridement and bone biopsies. She elected to proceed with this. This was discussed with her in detail. The consent form was reviewed with her and she freely signed it. The possible benefits vs risks were reviewed with her. She was advised the risks include but not limited to need for further surgery, recurrent wounds, further infection, deformity, nonhealing, bleeding, loss of limb, loss of life. She is at very high risk of limb loss. She expressed understanding and agreement. She was given multiple opportunities to ask questions and all of her questions were answered. No guarantees or warranties were given nor implied. Operative Procedure: Patient was brought back to the operating room and was placed on the operating room table in the supine position. Patient was carefully secured to the operating room table with a safety belt around her waist. She was already on IV antibiotics. A well padded pneumatic tourniquet was applied around the patient's right ankle. The patient received MAC anesthesia per the anesthesiologist. The overlying skin was cleansed with 70% Isopropyl alcohol on the right foot and a total of 14mL of 0.5% Bupivacaine plain was given as a local nerve block to the 1st ray and midfoot. The patient's right foot was scrubbed, prepped, and draped in the usual septic fashion. A timeout was preformed and the patient was properly identified and surgical plan was confirmed. Further attention was directed to the patient's right foot and it was again noted there was a large ulceration to the plantar residual 1st metatarsal area which was down to and including subcutaneous tissue, there was nonviable tissue to the wound base and margins. There was also again noted to be an ulceration to the plantar midfoot which probed deep into the soft tissues of the plantar midfoot down to and including fascia and muscle which was necrotic and nonviable, there was drainage consistent with infection and surrounding cellulitis. There was maloder from the midfoot wound as well. The cellulitis and maloder noted to be some improved though from Monday, but the necrotic nonviable tissue was not improved, but it appeared stable compared to Monday. The patient's right foot was elevated for several minutes and the right ankle pneumatic tourniquet was inflated to 250mmHg. Bone Biopsy right 1st metatarsal: A 0.5cm linear skin incision was made to the medial aspect of the distal residual 1st metatarsal. Blunt dissection was completed down to the distal residual 1st metatarsal. Using the davion bone bi opsy kit a sample of bone was obtained from the distal plantar residual 1st metatarsal and all of it was sent to microbiology and pathology, the bone was softer than normal and yellowish appearing. There was no necrosis, no noted abscess, no purulence from site. The site was flushed out with copious amounts of normal saline solution and the skin was reapproximated using 3-0 Prolene. Bone Biopsy right Tarsometatarsal/midfoot: A 0.5cm linear skin incision was made to the dorsal lateral aspect of the tarsometatarsal and midfoot joints. Blunt dissection was completed down to the bone at this level. Using a Jamshidi needle sample of bone was obtained from the and all of it was sent to microbiology and pathology, the bone was softer than normal and yellowish appearing. There was no necrosis, no noted abscess, no purulence from site. The site was flushed out with copious amounts of normal saline solution and the skin was reapproximated using 3-0 Prolene. Wound debridement right plantar residual 1st metatarsal: Preformed excisional debridement of the ulceration down to and including the subcutaneous tissue using a # 15 scalpel blade, this was debrided down to healthy viable granular base and healthy viable margins. The area debrided measured: 1.7cm x 2.2cm and down to and including the subcutaneous tissue layer (wound measured 1.5cm x 2.0cm down to and including subcutaneous layer prior to debridement). There was no probe to bone. Wound debridement right plantar midfoot: Preformed excisional debridement of the ulceration down to and including the fascia and muscle layer using a # 15 scalpel blade, this was debrided down to healthy viable granular base and healthy viable margins. The area debrided measured: 1.5cm x 2cm and down to and including the fascia and muscle tissue layer. (wound measured 0.7cm x 0.7cm down to and including fascia and muscle layers prior to debridement). There was no probe to bone. The debrided wound sites were flushed out with copious amounts of normal saline solution. A dressing was applied which consisted of gauze, kerlix, abd pads, Webril and trang dressings. The pneumatic tourniquet was deflated from the right ankle while applying the dressing and there was immediate return of warmth and perfusion to right foot and all toes on right foot with CFT < 2 seconds to the toes. Total tourniquet time was 42 minutes. The patient tolerated the above procedures well and anesthesia well with no complications. The patient was transported from the operating room to the recovery room with vital signs stable and in good condition. The patient will be followed as an inpatient. Surgical Findings: As noted above Complications Complications: No
[2025-09-21] MEDS: Linezolid 600 MG 600 MG/300 ML BAG 200 MG IV ×2 (10:35→21:10)
[2025-09-21 12:11] LABS: Hematocrit 32.7 % (37-47); Hemoglobin 10.2 g/dL (12.0-15.0); Immature Granulocytes Count 0.090 X10^3/uL (0.0-0.0); Mean Corp Hgb Conc 31.2 g/dL (32-36); Mean Corpuscular Volume 84.9 fL (81-99); Mean Platelet Vol. 8.9 fl (6.2-12.0); NRBC Flagged by Analyzer 0 % (0-5); Platelet Count 363 K/mm3 (150-450); RBC Distribution Width CV 12.4 % (11.6-14.6); RBC Distribution Width SD 37.9 fl (35.1-43.9); Red Blood Count 3.85 M/mm3 (4.2-5.4); White Blood Count 14.0 K/mm3 (4.4-11.0)
[2025-09-21 12:25] LABS: Anion Gap 10 (5-15); BUN 12 mg/dL (4-19); BUN/Creat Ratio 13.2 RATIO (10-20); Calcium,Total 9.3 mg/dL (7.6-11.0); Carbon Dioxide 24.1 mmol/L (21.0-32.0); Chloride 104 mmol/L (98-108); Estimated Creatinine Clearance 88.17 ml/min (50-250); Glucose 207 mg/dL (70-99); Potassium 4.1 mmol/L (3.3-5.1)
[2025-09-21] MEDS: Juven (unflavored) Packet 1 PACKET PO (17:01)
[2025-09-22 04:00] VITALS: BP 118/69; PULSE 79; RESP 18; TEMP 36.4; O2SAT 98
[2025-09-22 06:30] LABS: Hematocrit 30.7 % (37-47); Hemoglobin 9.7 g/dL (12.0-15.0); Immature Granulocytes Count 0.050 X10^3/uL (0.0-0.0); Mean Corp Hgb Conc 31.6 g/dL (32-36); Mean Corpuscular Volume 85.0 fL (81-99); Mean Platelet Vol. 8.6 fl (6.2-12.0); NRBC Flagged by Analyzer 0 % (0-5); Platelet Count 342 K/mm3 (150-450); RBC Distribution Width CV 12.5 % (11.6-14.6); RBC Distribution Width SD 38.9 fl (35.1-43.9); Red Blood Count 3.61 M/mm3 (4.2-5.4); White Blood Count 14.6 K/mm3 (4.4-11.0)
[2025-09-22 07:03] LABS: Anion Gap 9 (5-15); BUN 15 mg/dL (4-19); BUN/Creat Ratio 17.4 RATIO (10-20); Calcium,Total 9.2 mg/dL (7.6-11.0); Carbon Dioxide 25.3 mmol/L (21.0-32.0); Chloride 105 mmol/L (98-108); Estimated Creatinine Clearance 92.27 ml/min (50-250); Glucose 99 mg/dL (70-99); Potassium 3.8 mmol/L (3.3-5.1)
--- NOTE | 2025-09-22 08:58 | WOUNDNOTE ---
This nurse was consulted to see patient for wound to the right foot. Dr Underwood had called in and asked that the dressing be left in place until he sees patient after office hours today d/t bleeding concerns.
[2025-09-22] MEDS: Juven (unflavored) Packet 1 PACKET PO (09:36)
[2025-09-22] MEDS: 0.9% Saline Lock 10 ML Syringe IV ×2 (09:37→21:54)
[2025-09-22] MEDS: Senna/Docusate Sodium 1 Tablet 2 TABLET PO ×2 (09:37→22:00)
[2025-09-22] MEDS: levoFLOXacin IV 750 MG/150 ML BAG 100 MG IV (09:43)
[2025-09-22 10:00] VITALS: BP 108/60; PULSE 88; RESP 18; TEMP 37; O2SAT 98
[2025-09-22] MEDS: Linezolid 600 MG 600 MG/300 ML BAG 200 MG IV (11:52)
--- NOTE | 2025-09-22 13:10 | PCM.CONS.GEN ---
Assessment & Plan Assessment/Plan (1) Osteomyelitis of foot, right, acute: PLAN: MRI with gas-formation, taken to OR 09/21/[address] Underwood with I&D down to bone, including necrotic fascia. Wound cx with enterobacter, MSSA, GPR, and strep-like bacteria so far. Issues with vanc in past and she would like to stop linezolid so she can restart cymbalta. Will change abx to cefepime/flagyl and clinda for anti-toxin effect. Will follow, thank you (2) Charcot joint of right ankle: HPI Consult Data Date of Consult: 09/22/25 HPI Narrative Reason for Consultation: osteomyelitis HPI Narrative: CHAPO PEREZ, is a 60 F with h/o lupus, RA, charcot foot, prior foot osteo 02/2025. Admitted 09/19/25 from ED with several days worsening R foot ulcers. No fever or chills. Mild redness, swelling, drainage. No recent outpt abx. Admitted on vanc/zosyn, now on linezolid and levaquin. Taken to OR 09/21/[address] Underwood for I&D down to bone. Feeling ok this AM but concerned about being off cymbalta. Full ROS performed and neg except as noted above. [facility] Medical History Other hereditary and idiopathic neuropathies Osteomyelitis of foot, right, acute Sleep apnea Anxiety Depression Rheumatoid arthritis Migraines Amputation of toe of left foot Wears contact lenses Wears glasses Connective tissue disease Walker as ambulation aid Ambulates with cane Arthritis History of IBS Heartburn Non-smoker CPAP (continuous positive airway pressure) dependence Fibromyalgia Sjogren syndrome with dental involvement Sjogren syndrome with keratoconjunctivitis Sjogren syndrome with peripheral nervous system involvement Lupus Home Medications ?Medication ?Instructions ?Recorded ?Last Taken ?Type cyclobenzaprine 10 mg tablet 10 mg PO TID PRN MUSCLE SPASMS 04/15/20 09/18/25 History duloxetine 60 mg capsule,delayed 120 mg PO DAILY mood 04/15/20 09/18/25 History release estradiol 1 mg tablet 1 mg PO DAILY .`menopause 04/15/20 09/18/25 History gabapentin 300 mg capsule 300 mg PO BID `pain 04/15/20 09/18/25 History hydroxychloroquine 200 mg tablet 200 mg PO BID `ra 04/15/20 09/18/25 History lorazepam 1 mg tablet 1 mg PO DAILY PRN Anxiety 04/15/20 09/19/25 History zolpidem 10 mg tablet 10 mg PO QHS `sleep 04/15/20 09/18/25 History hydroxyzine HCl 25 mg tablet 12.5 - 50 mg PO TID PRN PRN anxiety 02/21/25 03/03/25 History Allergy/AdvReac Type Severity Reaction Status Date / Time Gadolinium-MRI Contrast Allergy Intermediate Hives Verified 09/19/25 10:14 Medium (CONTRAST) Iodinated Contrast Media (CT) Allergy Rash Verified 09/19/25 10:14 morphine Allergy Hives Verified 09/19/25 10:14 sertraline (From Zoloft) Allergy Swelling Verified 09/19/25 10:14 vancomycin AdvReac Other Verified 09/22/25 13:12 Family History Father Pseudocholinesterase deficiency Prostate cancer Mother CAD (coronary artery disease) Heart disease Hypertension Breast cancer Lupus Surgical History H/O wisdom tooth extraction H/O tubal ligation History of hysterectomy Hx of cholecystectomy Hx of Achilles tendon repair Social History household members: spouse Smoking Status: Never smoker alcohol intake: never substance use type: does not use Physical Exam Const alert, oriented x3 and no apparent distress General Appearance: cooperative HEENT normocephalic and head/scalp atraumatic Eyes PERRL and EOMs intact bilaterally Neck supple and No nodes Resp normal air movement and clear to auscultation bilaterally Cardio regular rate, regular rhythm and no murmurs GI soft to palpation, non-tender and non-distended Extremity General Extremity: edema Skin Skin Narrative: R foot wrapped s/p OR Neuro CN's II-XII intact bilaterally Lab / Micro Data Attestation: I reviewed the patient's lab results. 09/22/25 06:13 09/22/25 06:13 Labs: Laboratory Results - last 24 hr 09/22/25 06:13: WBC 14.6 H, RBC 3.61 L, Hgb 9.7 L, Hct 30.7 L, MCV 85.0, MCH 26.9 L, MCHC 31.6 L, RDW Std Deviation 38.9, RDW Coeff of Jennifer 12.5, Plt Count 342, MPV 8.6, Immature Gran % (Auto) 0.300, Neut % (Auto) 68.3, Lymph % (Auto) 24.9, [place] % (Auto) 5.8, Eos % (Auto) 0.4, Baso % (Auto) 0.3, Absolute Neuts (auto) 9.9 H, Absolute Lymphs (auto) 3.62, Nucleated RBC % 0, Sodium 139, Potassium 3.8, Chloride 105, Carbon Dioxide 25.3, Anion Gap 9, BUN 15, Creatinine 0.86, Estim Creat Clear Calc 92.27, Est GFR (MDRD) Non-Af 77, BUN/Creatinine Ratio 17.4, Glucose 99, Calcium 9.2, TSH 0.961 Micro: Microbiology 09/21/25 08:21 Bone - Other Gram Stain - Final 09/21/25 08:17 Bone - Toe Gram Stain - Final 09/19/25 12:30 Wound - Right Foot Gram Stain - Final 09/19/25 12:30 Wound - Right Foot Wound Culture - Final Enterobacter cloacae complex Streptococcus mitis/ oralis Staphylococcus aureus 09/19/25 12:30 Wound - Right Foot Anaerobic Culture - Preliminary Checking for anaerobes, further studies to follow. 09/19/25 15:40 Wound - Right Foot Gram Stain - Final 09/19/25 15:40 Wound - Right Foot Wound Culture - Final Staphylococcus aureus Gram positive anthony
[2025-09-22] MEDS: Clindamycin 600 MG/50 ML BAG 100 MG IV ×2 (13:26→23:59)
[2025-09-22] MEDS: Cefepime HCl 2 GM in 0.9% Normal Saline (100mL MB+) 100 ML IV ×2 (14:22→21:56)
[2025-09-22 16:00] VITALS: BP 115/62; PULSE 89; RESP 18; TEMP 36.7; O2SAT 98
--- NOTE | 2025-09-22 16:40 | PCM.PN.HOSP ---
Reason for Visit Chief Complaint: Foot wounds Subjective Subjective Reports feeling anxious today being off of her Cymbalta and being a little bit tired overall, presently visiting with family and resting comfortably Objective Data Objective Data Vital Signs: Vital Signs Temp Pulse Resp BP Pulse Ox O2 Del Method 98.1 F 89 18 115/62 98 Room Air 09/22/25 16:00 09/22/25 16:00 09/22/25 16:00 09/22/25 16:00 09/22/25 16:00 09/22/25 16:00 Oxygen Delivery Method Room Air Weight: 114.2 kg Body Mass Index (BMI) 38.2 Intake & Output: Intake and Output for Last 24 Hours 09/20/25 09/21/25 09/22/25 23:59 23:59 23:59 Intake Total 1762.08 / 1762.08 1160 / 1160 1049.75 / 1049.75 Output Total 800 / 800 Balance 1761.08 / 1761.08 360 / 360 1049.75 / 1049.75 Lab / Micro Data 09/22/25 06:13 09/22/25 06:13 Labs: Laboratory Results - last 24 hr 09/22/25 06:13: WBC 14.6 H, RBC 3.61 L, Hgb 9.7 L, Hct 30.7 L, MCV 85.0, MCH 26.9 L, MCHC 31.6 L, RDW Std Deviation 38.9, RDW Coeff of Jennifer 12.5, Plt Count 342, MPV 8.6, Immature Gran % (Auto) 0.300, Neut % (Auto) 68.3, Lymph % (Auto) 24.9, [place] % (Auto) 5.8, Eos % (Auto) 0.4, Baso % (Auto) 0.3, Absolute Neuts (auto) 9.9 H, Absolute Lymphs (auto) 3.62, Nucleated RBC % 0, Sodium 139, Potassium 3.8, Chloride 105, Carbon Dioxide 25.3, Anion Gap 9, BUN 15, Creatinine 0.86, Estim Creat Clear Calc 92.27, Est GFR (MDRD) Non-Af 77, BUN/Creatinine Ratio 17.4, Glucose 99, Calcium 9.2, TSH 0.961 Micro: Microbiology 09/21/25 08:21 Bone - Other Gram Stain - Final 09/21/25 08:17 Bone - Toe Gram Stain - Final 09/19/25 12:30 Wound - Right Foot Gram Stain - Final 09/19/25 12:30 Wound - Right Foot Wound Culture - Final Enterobacter cloacae complex Streptococcus mitis/ oralis Staphylococcus aureus 09/19/25 12:30 Wound - Right Foot Anaerobic Culture - Preliminary Checking for anaerobes, further studies to follow. 09/19/25 15:40 Wound - Right Foot Gram Stain - Final 09/19/25 15:40 Wound - Right Foot Wound Culture - Final Staphylococcus aureus Gram positive anthony Physical Exam Narrative General: Alert, oriented, no apparent distress HEENT: Atraumatic, normocephalic Eyes: Anicteric, normal conjunctiva, extraocular movements grossly intact Neck: Supple Respiratory: Clear to auscultation bilaterally, normal respiratory effort Cardiovascular: Regular rate and rhythm GI: Soft, nontender, nondistended Extremities: Right foot presently wrapped Musculoskeletal: Moving all extremities Neuro: No overt focal neurological deficits Skin: No rashes appreciated, right foot wrapped Psych: Cooperative Assessment & Plan Assessment/Plan (1) Osteomyelitis of foot, right, acute: PLAN: Plan #Acute osteomyelitis of R foot - MRI of the foot obtained during hospitalization which showed osteomyelitis involving the distal aspect of first metatarsal with surrounding soft tissue edema and ulceration as well as scattered foci of subcutaneous emphysema - Patient underwent debridement of ulceration down to and including fascia/muscle layer of right foot with Dr. Underwood in the OR 09/21/2025 - ID consulted - Wound culture with Enterobacter, MSSA, GPR, and strep like bacteria thus far - Patient would like to stop linezolid so that she can go back on her Cymbalta and had difficulty with vancomycin in the past - Ultimately patient's antibiotics were changed to cefepime/Flagyl and clindamycin #Depression/anxiety - Home duloxetine resumed -Ativan as needed -Supportive care # History of lupus -Continue hydroxychloroquine #DVT ppx: scd Fara Beckett MD Time spent in the patient's overall evaluation, decision-making process, review of diagnostic data, adjustment of management, discussion with other providers, nursing and ancillary staff involved in patient's care documentation, 36 Minutes Charges/Coding Visit Charges Inpatient E&M: 05811 Subs Hosp L2
--- NOTE | 2025-09-22 18:47 | PCM.PROGNOTE ---
Subjective Subjective Patient was seen for follow up on right foot. She is resting comfortably in bed. She has no complaints of f/c/n/v, no new complaints. Objective Data Objective Data Vital Signs: Vital Signs Temp Pulse Resp BP Pulse Ox O2 Del Method 98.1 F 89 18 115/62 98 Room Air 09/22/25 16:00 09/22/25 16:00 09/22/25 16:00 09/22/25 16:00 09/22/25 16:00 09/22/25 16:00 Oxygen Delivery Method Room Air Weight: 114.2 kg Body Mass Index (BMI) 38.2 Intake & Output: Intake and Output for Last 24 Hours 09/20/25 09/21/25 09/22/25 23:59 23:59 23:59 Intake Total 1762.08 / 1762.08 1160 / 1160 1049.75 / 1049.75 Output Total 800 / 800 Balance 1761.08 / 1761.08 360 / 360 1049.75 / 1049.75 Lab / Micro Data 09/22/25 06:13 09/22/25 06:13 Labs: Laboratory Results - last 24 hr 09/22/25 06:13: WBC 14.6 H, RBC 3.61 L, Hgb 9.7 L, Hct 30.7 L, MCV 85.0, MCH 26.9 L, MCHC 31.6 L, RDW Std Deviation 38.9, RDW Coeff of Jennifer 12.5, Plt Count 342, MPV 8.6, Immature Gran % (Auto) 0.300, Neut % (Auto) 68.3, Lymph % (Auto) 24.9, [place] % (Auto) 5.8, Eos % (Auto) 0.4, Baso % (Auto) 0.3, Absolute Neuts (auto) 9.9 H, Absolute Lymphs (auto) 3.62, Nucleated RBC % 0, Sodium 139, Potassium 3.8, Chloride 105, Carbon Dioxide 25.3, Anion Gap 9, BUN 15, Creatinine 0.86, Estim Creat Clear Calc 92.27, Est GFR (MDRD) Non-Af 77, BUN/Creatinine Ratio 17.4, Glucose 99, Calcium 9.2, TSH 0.961 Micro: Microbiology 09/21/25 08:21 Bone - Other Gram Stain - Final 09/21/25 08:17 Bone - Toe Gram Stain - Final 09/19/25 12:30 Wound - Right Foot Gram Stain - Final 09/19/25 12:30 Wound - Right Foot Wound Culture - Final Enterobacter cloacae complex Streptococcus mitis/ oralis Staphylococcus aureus 09/19/25 12:30 Wound - Right Foot Anaerobic Culture - Preliminary Checking for anaerobes, further studies to follow. 09/19/25 15:40 Wound - Right Foot Gram Stain - Final 09/19/25 15:40 Wound - Right Foot Wound Culture - Final Staphylococcus aureus Gram positive anthony Physical Exam Const alert, oriented x3 and no apparent distress Constitutional Narrative: Right foot with debrided ulceration plantar midfoot to fascia/muscle and debrided ulceration plantar residual 1st metatarsal down to subcutaneous tissues - tissues are healthy and viable, no other open wounds, no blistering, no visible abscess to rest of foot and ankle, CFT < 2 seconds to all toes, there is chronic deformity of 1st MTPJ, there is contracture of lesser toes, dislocated 2nd MTPJ which is chronic, partial 3rd toe amputation, there is decreased plantar arch from chronic charcot neuroarthropathy with rockerbottom foot type right foot but there is no gross instability to TMT/midfoot, no evidence of acute ischemia to right foot with normal temperature present, no evidence of DVT bilateral. Chronic peripheral neuropathy to lower extremities. No evidence of DVT bilateral. No open wounds or evidence of ischemia left foot. No cellulitis bilateral foot, no visible abscess either. Assessment & Plan Assessment/Plan (1) Cellulitis of foot, right: (2) Osteomyelitis of foot, right, acute: (3) Non-pressure chronic ulcer of other part of right foot with necrosis of muscle: (4) Other acquired deformities of right foot: (5) Charcot joint of right foot: PLAN: Plan Evaluation performed. Reviewed diagnostic data. Patient has been admitted for right foot infection. Right foot xrays, right foot MRI, and right foot CT scan obtained and reviewed. s/p OR debridement of ulcerations with bone biopsy on 09/21/2025. From infection standpoint foot is doing well clinically at this time. Culture have been obtained. Patient remains on antibiotic therapy with Infectious Disease on board. We further discussed the long-term functional outlook for the patient?s right foot, which is currently severely impaired due to significant forefoot deformity, chronic Charcot changes in the midfoot, with plantar foot wounds. We reviewed management options including limb salvage, staged partial foot amputation, and more proximal amputation via below-knee amputation (BKA) as a potentially more functional solution. The potential benefits, risks, goals, and expectations associated with each approach were thoroughly discussed. The patient expressed interest in further exploring the option of BKA and agreed for me to consult Dr. Grace from Vascular Surgery regarding their case. I subsequently contacted Dr. Grace and placed a formal consultation. Also discussed with Dr. Lundy from [facility] medicine. No weightbearing right foot. Wound care right foot: gauze, kerlix and trang dressing changes daily. Podiatry will continue to follow.
[2025-09-22 20:32] VITALS: BP 112/67; PULSE 99; RESP 18; TEMP 37; O2SAT 95
[2025-09-22 22:24] VITALS: BP 125/72; PULSE 93; RESP 20; TEMP 36.8; O2SAT 93
[2025-09-23] MEDS: Cefepime HCl 2 GM in 0.9% Normal Saline (100mL MB+) 100 ML IV ×3 (05:28→21:55)
[2025-09-23] MEDS: 0.9% Normal Saline (250mL Bag) 250 ML 150 ML IV (05:30)
[2025-09-23 05:33] VITALS: BP 117/71; PULSE 79; RESP 16; TEMP 36.4; O2SAT 93
[2025-09-23 05:45] LABS: Hematocrit 31.1 % (37-47); Hemoglobin 10.0 g/dL (12.0-15.0); Immature Granulocytes Count 0.050 X10^3/uL (0.0-0.0); Mean Corp Hgb Conc 32.2 g/dL (32-36); Mean Corpuscular Volume 85.2 fL (81-99); Mean Platelet Vol. 8.5 fl (6.2-12.0); NRBC Flagged by Analyzer 0 % (0-5); Platelet Count 312 K/mm3 (150-450); RBC Distribution Width CV 12.7 % (11.6-14.6); RBC Distribution Width SD 39.1 fl (35.1-43.9); Red Blood Count 3.65 M/mm3 (4.2-5.4); White Blood Count 9.7 K/mm3 (4.4-11.0)
[2025-09-23 06:09] LABS: Anion Gap 8 (5-15); BUN 16 mg/dL (4-19); BUN/Creat Ratio 14.9 RATIO (10-20); Calcium,Total 9.0 mg/dL (7.6-11.0); Carbon Dioxide 28.4 mmol/L (21.0-32.0); Chloride 104 mmol/L (98-108); Estimated Creatinine Clearance 72.80 ml/min (50-250); Glucose 91 mg/dL (70-99); Potassium 3.7 mmol/L (3.3-5.1)
[2025-09-23] MEDS: Clindamycin 600 MG/50 ML BAG 100 MG IV ×3 (06:20→21:09)
--- NOTE | 2025-09-23 07:04 | EX.PCM.CON.S ---
Assessment & Plan Assessment/Plan (1) Charcot joint of right foot: (2) Non-pressure chronic ulcer of other part of right foot with necrosis of muscle: PLAN: Plan Given her prolonged recurrent R foot wounds with Charcot deformity limiting functional capacity further complicated by recurrent infections requiring admissions and IV antibiotics, she is a reasonable candidate for more proximal amputation. Her LEAS in February was normal, she is a candidate for R BKA. I met with patient at bedside and her daughter, Quin, was also present. We discussed BKA procedure details including indications, alternatives, risks, benefits, recovery, prosthetic potential and process in depth, possible need for rehab/SNF at discharge postoperatively. All questions/concerns were addressed. She is leaning towards proceeding, but will take time to consider further before making final decision. HPI Consult Data Date of Consult: 09/23/25 HPI Narrative HPI Narrative: CHAPO PEREZ, is a 60 F who presented to the [facility] ER on 09/19/25 after outpatient podiatry evaluation was concerning for R foot wound infection. She was admitted for further management; she is on IV antibiotics cefepime, flagyl, clinda as per ID. She has been evaluated by Dr. Underwood who performed operative debridement and bone biopsy on 09/21/25. She has a years long history of recurrent wounds with delayed healing to her R foot with Charcot changes and further complicated by recurrent infections. She reports feeling mentally/emotionally exhausted from the years of chronic wound care and repeat procedures for salvage of her R foot. Dr. Underwood has discussed with her the options of further efforts at salvaging her foot with partial foot amputation and other interventions to allow for bracing to make her foot more functional but function overall limited due to deformity vs option of BKA with ultimate goal of prosthesis. At this point, she is very open to BKA and we are consulted for further consideration in this regard. She had an arterial study in 02/2025 which showed RLE with normal CEDRICK and waveforms. She does not have any history of lower extremity revascularizations. Her medical history is significant for lupus, RA, and Sjogren's for which she takes hydroxychloroquine. She is not diabetic. She does not smoke. [facility] Medical History Other hereditary and idiopathic neuropathies Osteomyelitis of foot, right, acute Sleep apnea Anxiety Depression Rheumatoid arthritis Migraines Amputation of toe of left foot Wears contact lenses Wears glasses Connective tissue disease Walker as ambulation aid Ambulates with cane Arthritis History of IBS Heartburn Non-smoker CPAP (continuous positive airway pressure) dependence Fibromyalgia Sjogren syndrome with dental involvement Sjogren syndrome with keratoconjunctivitis Sjogren syndrome with peripheral nervous system involvement Lupus Home Medications ?Medication ?Instructions ?Recorded ?Last Taken ?Type cyclobenzaprine 10 mg tablet 10 mg PO TID PRN MUSCLE SPASMS 04/15/20 09/18/25 History duloxetine 60 mg capsule,delayed 120 mg PO DAILY mood 04/15/20 09/18/25 History release estradiol 1 mg tablet 1 mg PO DAILY .`menopause 04/15/20 09/18/25 History gabapentin 300 mg capsule 300 mg PO BID `pain 04/15/20 09/18/25 History hydroxychloroquine 200 mg tablet 200 mg PO BID `ra 04/15/20 09/18/25 History lorazepam 1 mg tablet 1 mg PO DAILY PRN Anxiety 04/15/20 09/19/25 History zolpidem 10 mg tablet 10 mg PO QHS `sleep 04/15/20 09/18/25 History hydroxyzine HCl 25 mg tablet 12.5 - 50 mg PO TID PRN PRN anxiety 02/21/25 03/03/25 History Allergy/AdvReac Type Severity Reaction Status Date / Time Gadolinium-MRI Contrast Allergy Intermediate Hives Verified 09/19/25 10:14 Medium (CONTRAST) Iodinated Contrast Media (CT) Allergy Rash Verified 09/19/25 10:14 morphine Allergy Hives Verified 09/19/25 10:14 sertraline (From Zoloft) Allergy Swelling Verified 09/19/25 10:14 vancomycin AdvReac Other Verified 09/22/25 13:12 Family History Father Pseudocholinesterase deficiency Prostate cancer Mother CAD (coronary artery disease) Heart disease Hypertension Breast cancer Lupus Surgical History H/O wisdom tooth extraction H/O tubal ligation History of hysterectomy Hx of cholecystectomy Hx of Achilles tendon repair Social History household members: spouse Smoking Status: Never smoker alcohol intake: never substance use type: does not use Physical Exam Const alert, oriented x3 and no apparent distress General Appearance: cooperative and comfortable HEENT normocephalic, head/scalp atraumatic, hearing grossly normal bilaterally, external ears normal and external nose normal Eyes General Eye: normal appearance of both eyes Neck General: normal visual inspection and trachea midline Resp normal respiratory effort, normal air movement and no retractions Effort and Inspection: able to speak in complete sentences; Negative for labored, grunting, stridor or audible wheezes Cardio regular rate Extremity no clubbing, cyanosis or edema Skin no rashes or lesions noted Wound Narrative: R foot with wound dressings in place, C/D/I. Neuro oriented x3, moves all extremities and no focal motor deficits Speech: speech normal Psych mental status grossly normal Appearance: grossly normal Attitude: calm and engaged Activity / Motor Behavior: appropriate eye contact Speech: normal speech Lab / Micro Data 09/23/25 05:24 09/23/25 05:24 Labs: Laboratory Results - last 24 hr 09/22/25 06:13: TSH 0.961 09/23/25 05:24: WBC 9.7, RBC 3.65 L, Hgb 10.0 L, Hct 31.1 L, MCV 85.2, MCH 27.4, MCHC 32.2, RDW Std Deviation 39.1, RDW Coeff of Jennifer 12.7, Plt Count 312, MPV 8.5, Immature Gran % (Auto) 0.500, Neut % (Auto) 48.1, Lymph % (Auto) 41.4 H, [place] % (Auto) 6.9, Eos % (Auto) 2.6, Baso % (Auto) 0.5, Absolute Neuts (auto) 4.7, Absolute Lymphs (auto) 4.02, Nucleated RBC % 0, Sodium 140, Potassium 3.7, Chloride 104, Carbon Dioxide 28.4, Anion Gap 8, BUN 16, Creatinine 1.09, Estim Creat Clear Calc 72.80, Est GFR (MDRD) Non-Af 58 L, BUN/Creatinine Ratio 14.9, Glucose 91, Calcium 9.0 Micro: Microbiology 09/21/25 08:21 Bone - Other Gram Stain - Final 09/21/25 08:17 Bone - Toe Gram Stain - Final 09/19/25 12:30 Wound - Right Foot Gram Stain - Final 09/19/25 12:30 Wound - Right Foot Wound Culture - Final Enterobacter cloacae complex Streptococcus mitis/ oralis Staphylococcus aureus 09/19/25 12:30 Wound - Right Foot Anaerobic Culture - Preliminary Checking for anaerobes, further studies to follow. Charges/Coding Visit Charges Inpatient E&M: 52407 Init Hosp L1
[2025-09-23 09:16] VITALS: BP 107/69; PULSE 86; RESP 16; TEMP 36.7; O2SAT 100
[2025-09-23] MEDS: Senna/Docusate Sodium 1 Tablet 2 TABLET PO (09:33)
--- NOTE | 2025-09-23 10:22 | PCM.PN.ID ---
Physical Exam Narrative Feeling ok, no fever, no n/v/d. Const alert and no apparent distress General Appearance: cooperative Resp normal air movement and clear to auscultation bilaterally Cardio regular rate and regular rhythm GI soft to palpation, non-tender and non-distended Skin Skin Narrative: R foot wrapped ID ID: Route of nutrition/ use of supplements: [] Nutritional Intake: [] IV Site: [] Archibald Catheter: [] Assessment & Plan Assessment/Plan (1) Osteomyelitis of foot, right, acute: PLAN: MRI with gas-formation, taken to OR 09/21/[address] Underwood with I&D down to bone, including necrotic fascia. Wound cx with enterobacter, MSSA, GPR, and strep bacteria so far. Issues with vanc in past. Will continue cefepime/flagyl and clinda for anti-toxin effect. Will follow (2) Charcot joint of right ankle:
[2025-09-23] MEDS: 0.9% Saline Lock 10 ML Syringe IV ×3 (14:27→21:08)
[2025-09-23 14:47] VITALS: BP 113/61; PULSE 93; RESP 18; TEMP 36.5; O2SAT 96
--- NOTE | 2025-09-23 15:33 | PCM.PN.HOSP ---
Reason for Visit Chief Complaint: Foot wounds Subjective Subjective Patient was anxious after conversation earlier in the day about possible amputation and received Ativan, evaluated at bedside reports feeling tired but otherwise no new or acute complaints Objective Data Objective Data Vital Signs: Vital Signs Temp Pulse Resp BP Pulse Ox O2 Del Method 97.7 F L 93 18 113/61 96 Room Air 09/23/25 14:47 09/23/25 14:47 09/23/25 14:47 09/23/25 14:47 09/23/25 14:47 09/23/25 14:47 Oxygen Delivery Method Room Air Weight: 114.2 kg Body Mass Index (BMI) 38.2 Intake & Output: Intake and Output for Last 24 Hours 09/21/25 09/22/25 09/23/25 23:59 23:59 23:59 Intake Total 1160 / 1160 1149.75 / 1149.75 700 / 700 Output Total 800 / 800 0 / 0 Balance 360 / 360 1149.75 / 1149.75 700 / 700 Lab / Micro Data 09/23/25 05:24 09/23/25 05:24 Labs: Laboratory Results - last 24 hr 09/23/25 05:24: WBC 9.7, RBC 3.65 L, Hgb 10.0 L, Hct 31.1 L, MCV 85.2, MCH 27.4, MCHC 32.2, RDW Std Deviation 39.1, RDW Coeff of Jennifer 12.7, Plt Count 312, MPV 8.5, Immature Gran % (Auto) 0.500, Neut % (Auto) 48.1, Lymph % (Auto) 41.4 H, [place] % (Auto) 6.9, Eos % (Auto) 2.6, Baso % (Auto) 0.5, Absolute Neuts (auto) 4.7, Absolute Lymphs (auto) 4.02, Nucleated RBC % 0, Sodium 140, Potassium 3.7, Chloride 104, Carbon Dioxide 28.4, Anion Gap 8, BUN 16, Creatinine 1.09, Estim Creat Clear Calc 72.80, Est GFR (MDRD) Non-Af 58 L, BUN/Creatinine Ratio 14.9, Glucose 91, Calcium 9.0 Micro: Microbiology 09/21/25 08:17 Bone - Toe Gram Stain - Final 09/21/25 08:17 Bone - Toe Wound Culture - Preliminary No growth-Final to follow 09/21/25 08:17 Bone - Toe Anaerobic Culture - Preliminary No growth in 48 hours. 09/21/25 08:21 Bone - Other Gram Stain - Final 09/21/25 08:21 Bone - Other Wound Culture - Preliminary No growth-Final to follow 09/21/25 08:21 Bone - Other Anaerobic Culture - Preliminary No growth in 48 hours. 09/19/25 12:30 Wound - Right Foot Gram Stain - Final 09/19/25 12:30 Wound - Right Foot Wound Culture - Final Enterobacter cloacae complex Streptococcus mitis/ oralis Staphylococcus aureus 09/19/25 12:30 Wound - Right Foot Anaerobic Culture - Preliminary Checking for anaerobes, further studies to follow. 09/19/25 15:40 Wound - Right Foot Gram Stain - Final 09/19/25 15:40 Wound - Right Foot Wound Culture - Final Staphylococcus aureus Gram positive anthony Physical Exam Narrative General: Resting comfortably but wakes up and answers questions appropriately HEENT: Atraumatic, normocephalic Eyes: extraocular movements grossly intact Neck: Supple Respiratory: normal respiratory effort Cardiovascular: no edema appreciated GI: nondistended Extremities: Right lower extremity wrapped Neuro: No overt focal neurological deficits Psych: Cooperative Assessment & Plan Assessment/Plan (1) Osteomyelitis of foot, right, acute: PLAN: Plan #Acute osteomyelitis of R foot - MRI of the foot obtained during hospitalization which showed osteomyelitis involving the distal aspect of first metatarsal with surrounding soft tissue edema and ulceration - Patient underwent debridement of ulceration down to and including fascia/muscle layer of right foot with Dr. Underwood in the OR 09/21/2025 - ID consulted - Wound culture with Enterobacter, MSSA, GPR, and strep like bacteria thus far - Patient would like to stop linezolid so that she can go back on her Cymbalta and had difficulty with vancomycin in the past - Ultimately patient's antibiotics were changed to cefepime/Flagyl and clindamycin -09/23: Discussed with Dr. Underwood, vascular has been consulted to discuss right lower extremity amputation #Depression/anxiety - Home duloxetine resumed -Ativan as needed -Supportive care -09/23: Back on her Cymbalta, did receive a dose of Ativan today Chronic medical problems and/or problems not being actively addressed during today's encounter: # History of lupus -Continue hydroxychloroquine #DVT ppx: scd Fara Beckett MD Time spent in the patient's overall evaluation,decision-making process, review of diagnostic data, adjustment of management, discussion with other providers, nursing nursing and ancillary staff involved in patient's care documentation, 37 minutes Charges/Coding Visit Charges Inpatient E&M: 03423 Subs Hosp L2
[2025-09-23 20:00] VITALS: BP 119/72; PULSE 95; RESP 16; TEMP 36.6; O2SAT 95
--- NOTE | 2025-09-23 20:04 | PN_ITS ---
Subjective Subjective Patient was seen today for follow up on right foot. She is resting in bed comfortably, friend and her at bedside visiting. She has been considering options. Objective Data Objective Data Vital Signs: Vital Signs Temp Pulse Resp BP Pulse Ox O2 Del Method 97.7 F L 93 18 113/61 96 Room Air 09/23/25 14:47 09/23/25 14:47 09/23/25 14:47 09/23/25 14:47 09/23/25 14:47 09/23/25 14:47 Oxygen Delivery Method Room Air Weight: 114.2 kg Body Mass Index (BMI) 38.2 Intake & Output: Intake and Output for Last 24 Hours 09/21/25 09/22/25 09/23/25 23:59 23:59 23:59 Intake Total 1160 / 1160 1149.75 / 1149.75 1300 / 1300 Output Total 800 / 800 0 / 0 Balance 360 / 360 1149.75 / 1149.75 1300 / 1300 Lab / Micro Data 09/23/25 05:24 09/23/25 05:24 Labs: Laboratory Results - last 24 hr 09/23/25 05:24: WBC 9.7, RBC 3.65 L, Hgb 10.0 L, Hct 31.1 L, MCV 85.2, MCH 27.4, MCHC 32.2, RDW Std Deviation 39.1, RDW Coeff of Jennifer 12.7, Plt Count 312, MPV 8.5, Immature Gran % (Auto) 0.500, Neut % (Auto) 48.1, Lymph % (Auto) 41.4 H, [place] % (Auto) 6.9, Eos % (Auto) 2.6, Baso % (Auto) 0.5, Absolute Neuts (auto) 4.7, Absolute Lymphs (auto) 4.02, Nucleated RBC % 0, Sodium 140, Potassium 3.7, Chloride 104, Carbon Dioxide 28.4, Anion Gap 8, BUN 16, Creatinine 1.09, Estim Creat Clear Calc 72.80, Est GFR (MDRD) Non-Af 58 L, BUN/Creatinine Ratio 14.9, Glucose 91, Calcium 9.0 09/23/25 19:20: Crossmatch See Detail Micro: Microbiology 09/21/25 08:17 Bone - Toe Gram Stain - Final 09/21/25 08:17 Bone - Toe Wound Culture - Preliminary No growth-Final to follow 09/21/25 08:17 Bone - Toe Anaerobic Culture - Preliminary No growth in 48 hours. 09/21/25 08:21 Bone - Other Gram Stain - Final 09/21/25 08:21 Bone - Other Wound Culture - Preliminary No growth-Final to follow 09/21/25 08:21 Bone - Other Anaerobic Culture - Preliminary No growth in 48 hours. 09/19/25 12:30 Wound - Right Foot Gram Stain - Final 09/19/25 12:30 Wound - Right Foot Wound Culture - Final Enterobacter cloacae complex Streptococcus mitis/ oralis Staphylococcus aureus 09/19/25 12:30 Wound - Right Foot Anaerobic Culture - Preliminary Checking for anaerobes, further studies to follow. 09/19/25 15:40 Wound - Right Foot Gram Stain - Final 09/19/25 15:40 Wound - Right Foot Wound Culture - Final Staphylococcus aureus Gram positive anthony Physical Exam Const alert, oriented x3 and no apparent distress Constitutional Narrative: Right foot with debrided ulceration plantar midfoot to fascia/muscle and debrided ulceration plantar residual 1st metatarsal down to subcutaneous tissues - tissues are healthy and viable, no other open wounds, no blistering, no visible abscess to rest of foot and ankle, CFT < 2 seconds to all toes, there is chronic deformity of 1st MTPJ, there is contracture of lesser toes, dislocated 2nd MTPJ which is chronic, partial 3rd toe amputation, there is decreased plantar arch from chronic Charcot neuroarthropathy, no evidence of acute ischemia to right foot with normal temperature present, no evidence of DVT bilateral. Chronic peripheral neuropathy to lower extremities. Assessment & Plan Assessment/Plan (1) Cellulitis of foot, right: (2) Osteomyelitis of foot, right, acute: (3) Non-pressure chronic ulcer of other part of right foot with necrosis of muscle: (4) Other acquired deformities of right foot: (5) Charcot joint of right foot: PLAN: Plan Evaluation performed. Reviewed diagnostic data. Patient has been admitted for right foot infection. Right foot xrays, right foot MRI, and right foot CT scan obtained and reviewed. s/p OR debridement of ulcerations with bone biopsy on 09/21/2025. From infection standpoint foot is doing well clinically at this time. Cultures have been obtained. Reviewed deep wound culture and available bone biopsy results. Reviewd with patient. Patient remains on antibiotic therapy with Infectious Disease on board. We further discussed the long-term functional outlook for the patient?s right foot, with options including limb salvage, staged partial foot amputation, and more proximal amputation via below-knee amputation (BKA) as a potentially more functional solution. She has been struggling with right foot for over 3 years, and she relates she is ready to proceed with BKA. Vascular surgery has been consulted. No weightbearing right foot. Wound care right foot: gauze, kerlix and trang dressing changes daily. Podiatry will continue to follow.
[2025-09-24] VITALS (20 sets, daily range): BP systolic 108–147; BP diastolic 62–94; PULSE 87–102; RESP 16–20; TEMP 36.5–36.8; O2SAT 94–100; BMI 38.2
[2025-09-24] MEDS: Cefepime HCl 2 GM in 0.9% Normal Saline (100mL MB+) 100 ML IV ×3 (05:23→22:28)
[2025-09-24] MEDS: 0.9% Saline Lock 10 ML Syringe IV (05:23)
[2025-09-24 05:58] LABS: Hematocrit 34.0 % (37-47); Hemoglobin 10.6 g/dL (12.0-15.0); Immature Granulocytes Count 0.030 X10^3/uL (0.0-0.0); Mean Corp Hgb Conc 31.2 g/dL (32-36); Mean Corpuscular Volume 85.2 fL (81-99); Mean Platelet Vol. 8.7 fl (6.2-12.0); NRBC Flagged by Analyzer 0 % (0-5); Platelet Count 327 K/mm3 (150-450); RBC Distribution Width CV 12.8 % (11.6-14.6); RBC Distribution Width SD 39.4 fl (35.1-43.9); Red Blood Count 3.99 M/mm3 (4.2-5.4); White Blood Count 8.7 K/mm3 (4.4-11.0)
[2025-09-24] MEDS: Clindamycin 600 MG/50 ML BAG 100 MG IV ×3 (06:21→21:27)
[2025-09-24 06:48] LABS: Anion Gap 12 (5-15); BUN 16 mg/dL (4-19); BUN/Creat Ratio 15.2 RATIO (10-20); Calcium,Total 8.9 mg/dL (7.6-11.0); Carbon Dioxide 25.5 mmol/L (21.0-32.0); Chloride 104 mmol/L (98-108); Estimated Creatinine Clearance 76.30 ml/min (50-250); Glucose 94 mg/dL (70-99); Potassium 3.5 mmol/L (3.3-5.1)
--- NOTE | 2025-09-24 07:15 | PCM.PN.SRG ---
Subjective Subjective I saw Mrs. Boles this morning, she was resting comfortably in bed. She decided yesterday afternoon that she wanted to proceed with R BKA and is scheduled for this at 1330 today. She reports feeling at peace with her decision this morning, she reports no questions/concerns at present. Objective Data Objective Data Vital Signs: Vital Signs Temp Pulse Resp BP Pulse Ox O2 Del Method 97.8 F 87 16 128/77 H 94 Room Air 09/24/25 02:00 09/24/25 02:00 09/24/25 02:00 09/24/25 02:00 09/24/25 02:00 09/24/25 02:00 Oxygen Delivery Method Room Air Weight: 251 lb 12.286 oz Body Mass Index (BMI) 38.2 Intake & Output: Intake and Output for Last 24 Hours 09/22/25 09/23/25 09/24/25 23:59 23:59 23:59 Intake Total 1149.75 / 1149.75 1700 / 1700 150 / 150 Output Total 0 / 0 Balance 1149.75 / 1149.75 1700 / 1700 150 / 150 Lab / Micro Data 09/24/25 05:43 09/24/25 05:43 Labs: Laboratory Results - last 24 hr 09/23/25 19:20: Blood Type A POSITIVE, Antibody Screen NEGATIVE, Crossmatch See Detail 09/24/25 05:43: WBC 8.7, RBC 3.99 L, Hgb 10.6 L, Hct 34.0 L, MCV 85.2, MCH 26.6 L, MCHC 31.2 L, RDW Std Deviation 39.4, RDW Coeff of Jennifer 12.8, Plt Count 327, MPV 8.7, Immature Gran % (Auto) 0.300, Neut % (Auto) 49.9, Lymph % (Auto) 36.7, [place] % (Auto) 8.2, Eos % (Auto) 4.0, Baso % (Auto) 0.9, Absolute Neuts (auto) 4.3, Absolute Lymphs (auto) 3.19, Nucleated RBC % 0, Sodium 142, Potassium 3.5, Chloride 104, Carbon Dioxide 25.5, Anion Gap 12, BUN 16, Creatinine 1.04, Estim Creat Clear Calc 76.30, Est GFR (MDRD) Non-Af 62, BUN/Creatinine Ratio 15.2, Glucose 94, Calcium 8.9 Micro: Microbiology 09/21/25 08:17 Bone - Toe Gram Stain - Final 09/21/25 08:17 Bone - Toe Wound Culture - Preliminary No growth-Final to follow 09/21/25 08:17 Bone - Toe Anaerobic Culture - Preliminary No growth in 48 hours. 09/21/25 08:21 Bone - Other Gram Stain - Final 09/21/25 08:21 Bone - Other Wound Culture - Preliminary No growth-Final to follow 09/21/25 08:21 Bone - Other Anaerobic Culture - Preliminary No growth in 48 hours. 09/19/25 12:30 Wound - Right Foot Gram Stain - Final 09/19/25 12:30 Wound - Right Foot Wound Culture - Final Enterobacter cloacae complex Streptococcus mitis/ oralis Staphylococcus aureus 09/19/25 12:30 Wound - Right Foot Anaerobic Culture - Preliminary Checking for anaerobes, further studies to follow. 09/19/25 15:40 Wound - Right Foot Gram Stain - Final 09/19/25 15:40 Wound - Right Foot Wound Culture - Final Staphylococcus aureus Gram positive anthony Physical Exam Const alert, oriented x3 and no apparent distress General Appearance: cooperative and comfortable HEENT normocephalic, head/scalp atraumatic, hearing grossly normal bilaterally, external ears normal and external nose normal Eyes General Eye: normal appearance of both eyes Neck General: normal visual inspection and trachea midline Resp normal respiratory effort, normal air movement and no retractions Effort and Inspection: able to speak in complete sentences; Negative for labored, grunting, stridor or audible wheezes Cardio regular rate Extremity no clubbing, cyanosis or edema Skin no rashes or lesions noted Wound Narrative: R foot with wound dressings in place, C/D/I. Neuro oriented x3, moves all extremities and no focal motor deficits Speech: speech normal Psych mental status grossly normal Appearance: grossly normal Attitude: calm and engaged Activity / Motor Behavior: appropriate eye contact Speech: normal speech Assessment & Plan Assessment/Plan (1) Charcot joint of right foot: (2) Non-pressure chronic ulcer of other part of right foot with necrosis of muscle: PLAN: Plan She has opted to proceed with R BKA; she acknowledges understanding of procedure including risks, benefits, recovery. Plan is for OR today ~1330 for R BKA. She remains NPO. Dr. Deleon will be joining Dr. Grace in surgery to assist with RPNI vs TMR to reduce phantom limb pain so he will be seeing her in consultation today as well.
--- NOTE | 2025-09-24 08:22 | WOUNDNOTE ---
Pt going to OR later today for the R BKA per Dr Grace. will leave dressing in place to the right foot.
--- NOTE | 2025-09-24 09:30 | EX.PCM.CON.S ---
Assessment & Plan Assessment/Plan (1) Charcot joint of right foot: (2) Non-pressure chronic ulcer of other part of right foot with necrosis of muscle: PLAN: Plan I talked to the patient extensively on rounds today about my potential involvement in the below-knee amputation surgery plan for today. We spoke about the potential benefits of TMR and RPNI in preventing/potentially helping phantom limb pain/residual limb pain that can occur after below-knee amputations. There is no guarantee that they will work (discussed). The phantom limb pain or residual limb pain could actually be worse in the initial interim before gets better. She understands that this will add additional operative time which can increase the risk of anesthesia (including stroke) as well as the risks of venous thromboembolism. She understands the general risks of surgery including infection, bleeding, damage to surrounding structures, failure to obtain the desired result, wound healing complications, and the need for repeat surgeries. She has a clear understanding of her pathology and why she is undergoing a below-knee amputation today, and she would like to proceed with below-knee amputation and possible RPNI versus TMR. PCP will be available HPI Consult Data Date of Consult: 09/24/25 HPI Narrative HPI Narrative: CHAPO PEREZ, is a 60 F who presents with a right lower extremity Charcot foot with full-thickness foot wounds with exposed bone/osteomyelitis. Vascular surgery is planning an amputation today (below-knee amputation right side). They have asked that plastic surgery be consulted for consideration for regenerative peripheral nerve interface (RPNI) versus targeted muscle reinnervation (TMR) for the right lower extremity. Patient reports that she gets persistent nerve pain in the right lower extremity/foot and ankle. [facility] Medical History Other hereditary and idiopathic neuropathies Osteomyelitis of foot, right, acute Sleep apnea Anxiety Depression Rheumatoid arthritis Migraines Amputation of toe of left foot Wears contact lenses Wears glasses Connective tissue disease Walker as ambulation aid Ambulates with cane Arthritis History of IBS Heartburn Non-smoker CPAP (continuous positive airway pressure) dependence Fibromyalgia Sjogren syndrome with dental involvement Sjogren syndrome with keratoconjunctivitis Sjogren syndrome with peripheral nervous system involvement Lupus Home Medications ?Medication ?Instructions ?Recorded ?Last Taken ?Type cyclobenzaprine 10 mg tablet 10 mg PO TID PRN MUSCLE SPASMS 04/15/20 09/18/25 History duloxetine 60 mg capsule,delayed 120 mg PO DAILY mood 04/15/20 09/18/25 History release estradiol 1 mg tablet 1 mg PO DAILY .`menopause 04/15/20 09/18/25 History gabapentin 300 mg capsule 300 mg PO BID `pain 04/15/20 09/18/25 History hydroxychloroquine 200 mg tablet 200 mg PO BID `ra 04/15/20 09/18/25 History lorazepam 1 mg tablet 1 mg PO DAILY PRN Anxiety 04/15/20 09/19/25 History zolpidem 10 mg tablet 10 mg PO QHS `sleep 04/15/20 09/18/25 History hydroxyzine HCl 25 mg tablet 12.5 - 50 mg PO TID PRN PRN anxiety 02/21/25 03/03/25 History Allergy/AdvReac Type Severity Reaction Status Date / Time Gadolinium-MRI Contrast Allergy Intermediate Hives Verified 09/19/25 10:14 Medium (CONTRAST) Iodinated Contrast Media (CT) Allergy Rash Verified 09/19/25 10:14 morphine Allergy Hives Verified 09/19/25 10:14 sertraline (From Zoloft) Allergy Swelling Verified 09/19/25 10:14 vancomycin AdvReac Other Verified 09/22/25 13:12 Family History Father Pseudocholinesterase deficiency Prostate cancer Mother CAD (coronary artery disease) Heart disease Hypertension Breast cancer Lupus Surgical History H/O wisdom tooth extraction H/O tubal ligation History of hysterectomy Hx of cholecystectomy Hx of Achilles tendon repair Social History household members: spouse Smoking Status: Never smoker alcohol intake: never substance use type: does not use Physical Exam Narrative Right foot examined Multiple wounds with Charcot changes of the foot. No signs of an ascending infection Patient is insensate bilaterally in a stocking distribution (ankles to the feet) Lab / Micro Data 09/24/25 05:43 09/24/25 05:43 Labs: Laboratory Results - last 24 hr 09/23/25 19:20: Blood Type A POSITIVE, Antibody Screen NEGATIVE, Crossmatch See Detail 09/24/25 05:43: WBC 8.7, RBC 3.99 L, Hgb 10.6 L, Hct 34.0 L, MCV 85.2, MCH 26.6 L, MCHC 31.2 L, RDW Std Deviation 39.4, RDW Coeff of Jennifer 12.8, Plt Count 327, MPV 8.7, Immature Gran % (Auto) 0.300, Neut % (Auto) 49.9, Lymph % (Auto) 36.7, [place] % (Auto) 8.2, Eos % (Auto) 4.0, Baso % (Auto) 0.9, Absolute Neuts (auto) 4.3, Absolute Lymphs (auto) 3.19, Nucleated RBC % 0, Sodium 142, Potassium 3.5, Chloride 104, Carbon Dioxide 25.5, Anion Gap 12, BUN 16, Creatinine 1.04, Estim Creat Clear Calc 76.30, Est GFR (MDRD) Non-Af 62, BUN/Creatinine Ratio 15.2, Glucose 94, Calcium 8.9 Micro: Microbiology 09/21/25 08:21 Bone - Other Gram Stain - Final 09/21/25 08:21 Bone - Other Wound Culture - Final No growth aerobically. 09/21/25 08:21 Bone - Other Anaerobic Culture - Preliminary No growth in 48 hours. 09/21/25 08:17 Bone - Toe Gram Stain - Final 09/21/25 08:17 Bone - Toe Wound Culture - Final No growth aerobically. 09/21/25 08:17 Bone - Toe Anaerobic Culture - Preliminary No growth in 48 hours. 09/19/25 12:30 Wound - Right Foot Gram Stain - Final 09/19/25 12:30 Wound - Right Foot Wound Culture - Final Enterobacter cloacae complex Streptococcus mitis/ oralis Staphylococcus aureus 09/19/25 12:30 Wound - Right Foot Anaerobic Culture - Preliminary Checking for anaerobes, further studies to follow.
--- NOTE | 2025-09-24 12:03 | PCM.PN.HOSP ---
Reason for Visit Chief Complaint: Foot wounds Subjective Subjective Reports feeling at peace with her decision but is still anxious. Supportive care provided. Otherwise reports physically she feels fair with no new complaints Objective Data Objective Data Vital Signs: Vital Signs Temp Pulse Resp BP Pulse Ox O2 Del Method 98.1 F 88 18 126/70 H 97 Room Air 09/24/25 11:53 09/24/25 11:53 09/24/25 11:53 09/24/25 11:53 09/24/25 11:53 09/24/25 11:53 Oxygen Delivery Method Room Air Weight: 114.2 kg Body Mass Index (BMI) 38.2 Intake & Output: Intake and Output for Last 24 Hours 09/22/25 09/23/25 09/24/25 23:59 23:59 23:59 Intake Total 1149.75 / 1149.75 1700 / 1700 150 / 150 Output Total 0 / 0 Balance 1149.75 / 1149.75 1700 / 1700 150 / 150 Lab / Micro Data 09/24/25 05:43 09/24/25 05:43 Labs: Laboratory Results - last 24 hr 09/23/25 19:20: Blood Type A POSITIVE, Antibody Screen NEGATIVE, Crossmatch See Detail 09/24/25 05:43: WBC 8.7, RBC 3.99 L, Hgb 10.6 L, Hct 34.0 L, MCV 85.2, MCH 26.6 L, MCHC 31.2 L, RDW Std Deviation 39.4, RDW Coeff of Jennifer 12.8, Plt Count 327, MPV 8.7, Immature Gran % (Auto) 0.300, Neut % (Auto) 49.9, Lymph % (Auto) 36.7, [place] % (Auto) 8.2, Eos % (Auto) 4.0, Baso % (Auto) 0.9, Absolute Neuts (auto) 4.3, Absolute Lymphs (auto) 3.19, Nucleated RBC % 0, Sodium 142, Potassium 3.5, Chloride 104, Carbon Dioxide 25.5, Anion Gap 12, BUN 16, Creatinine 1.04, Estim Creat Clear Calc 76.30, Est GFR (MDRD) Non-Af 62, BUN/Creatinine Ratio 15.2, Glucose 94, Calcium 8.9 Micro: Microbiology 09/19/25 12:30 Wound - Right Foot Gram Stain - Final 09/19/25 12:30 Wound - Right Foot Wound Culture - Final Enterobacter cloacae complex Streptococcus mitis/ oralis Staphylococcus aureus 09/19/25 12:30 Wound - Right Foot Anaerobic Culture - Final No anaerobic bacteria isolated. 09/21/25 08:21 Bone - Other Gram Stain - Final 09/21/25 08:21 Bone - Other Wound Culture - Final No growth aerobically. 09/21/25 08:21 Bone - Other Anaerobic Culture - Preliminary No growth in 48 hours. 09/21/25 08:17 Bone - Toe Gram Stain - Final 09/21/25 08:17 Bone - Toe Wound Culture - Final No growth aerobically. 09/21/25 08:17 Bone - Toe Anaerobic Culture - Preliminary No growth in 48 hours. 09/19/25 15:40 Wound - Right Foot Gram Stain - Final 09/19/25 15:40 Wound - Right Foot Wound Culture - Final Staphylococcus aureus Gram positive anthony Physical Exam Narrative General: Alert HEENT: Atraumatic, normocephalic Eyes: extraocular movements grossly intact Neck: Supple Respiratory: normal respiratory effort Cardiovascular: no edema appreciated GI: nondistended Extremities: Right lower extremity wrapped Neuro: No overt focal neurological deficits Psych: Tearful but appropriate cooperative Assessment & Plan Assessment/Plan (1) Osteomyelitis of foot, right, acute: PLAN: Plan #Acute osteomyelitis of R foot - MRI of the foot obtained during hospitalization which showed osteomyelitis involving the distal aspect of first metatarsal with surrounding soft tissue edema and ulceration - Patient underwent debridement of ulceration down to and including fascia/muscle layer of right foot with Dr. Underwood in the OR 09/21/2025 - ID consulted - Wound culture with Enterobacter, MSSA, GPR, and strep like bacteria thus far - Patient would like to stop linezolid so that she can go back on her Cymbalta and had difficulty with vancomycin in the past - Ultimately patient's antibiotics were changed to cefepime/Flagyl and clindamycin -09/23: Discussed with Dr. Underwood, vascular has been consulted to discuss right lower extremity amputation -09/24: Patient scheduled for BKA today. Antibiotics per ID, vascular and plastics for surgery today #Depression/anxiety - Home duloxetine resumed -Ativan as needed -Supportive care -09/23: Back on her Cymbalta, did receive a dose of Ativan today -09/24: Emotional/supportive care provided, patient did receive a dose of Ativan due to her anxiety Chronic medical problems and/or problems not being actively addressed during today's encounter: # History of lupus -Continue hydroxychloroquine #DVT ppx: scd Fara Beckett MD Charges/Coding Visit Charges Inpatient E&M: 52877 Subs Hosp L1
[2025-09-24] MEDS: Lactated Ringers 1,000 ML 15 ML IV (12:40)
--- NOTE | 2025-09-24 13:04 | PCM.PRE.AN2 ---
ASA Classification* ASA Classification ASA Classification: 3 Assessment & Plan Anesthesia* Anesthesia Assessment Anesthesia Assessment: Discussed sedation and/or anesthesia options, risks, benefits, and alternatives with patient/parents/legal guardian/POA. Questions invited. The patient/parents/legal guardian/POA seems to understand and agrees to proceed with anesthesia plan. Reviewed the physical assessment, medical history, allergy history and patient home medications list prior to surgery/procedure/anesthetic and documented any changes. Performed airway and anesthesia risk assessments. Anesthesia Type Anesthesia Type: General History Source History Obtained from:: Patient and Chart Anesthesia Focused Assessment* Temperature: 98.1 F Pulse Rate: 88 Blood Pressure: 126/70 Respiratory Rate: 18 Pulse Ox: 97 Oxygen Delivery Method: Room Air Airway Assessment Mouth opens: >3 cm Mallampati Score: I Teeth Condition: Partial (Upper partials out.) Neck Range of motion (ROM): Limited ROM (Slight Decrease) Labs Anesthesia Preop lab: CBC WBC, (4.4-11.0) 8.7 K/mm3 Today, 05:43 RBC, (4.2-5.4) 3.99 M/mm3 L Today, 05:43 Hgb, (12.0-15.0) 10.6 g/dL L Today, 05:43 Hct, (37-47) 34.0 % L Today, 05:43 Plt Count, (150-450) 327 K/mm3 Today, 05:43 CHEMISTRY Potassium, (3.3-5.1) 3.5 mmol/L Today, 05:43 Sodium, (133-145) 142 mmol/L Today, 05:43 BUN, (4-19) 16 mg/dL Today, 05:43 Creatinine, (0.70-1.20) 1.04 mg/dL Today, 05:43 Glucose, (70-99) 94 mg/dL Today, 05:43 TSH, (0.300-4.200) 0.961 uIU/mL 09/22/25, 06:13 COAG PT, (11.7-14.9) 14.2 SECONDS 03/30/23, 13:40 Pre-Assessment Diagnosis/Proposed Procedure Planned Operative Procedure(s): Right below-knee amputation. Targeted muscle reinnervation versus regenerative peripheral nerve interface. 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 When Was Last Pacemaker Check QUESTION #4 FULL TEXT: You/Your Family Experience fever (hyperthermia) with Anesthesia Last Oral Intake Last Oral intake: Last Oral Intake NPO since 08:12 09/24/25 08:09 Meds taken in AM with sips of Yes 09/24/25 08:09 water? Meds patient instructed to ativan 09/24/25 08:09 take am of surgery Any additional information?: Yes Meds taken in AM with sips of water?: Yes Meds patient instructed to take am of surgery: Flagyl PONV PONV - instrument processing tech: PONV - instrument processing tech Female HX of Motion Sickness HX of N/V After Surgery Non-Smoker Duration of Surgery greater than 60 minutes Number of Risk Factors PONV Score Height & Weight Height & Weight: Anesthesia: Height & Weight Height 5 ft 8 in 09/24/25 08:09 Weight: 114.2 kg 09/24/25 08:09 Body Mass Index (BMI) 38.2 09/24/25 08:09 Respiratory Assessment Respiratory Assessment - instrument processing tech: Respiratory Tract Infection Hx - instrument processing tech Hx Respiratory Tract Infection No 09/23/25 20:06 STOP Sleep Apnea STOP Sleep Apnea - instrument processing tech: STOP Sleep Apnea - instrument processing tech Hx Hypertension No 09/23/25 15:00 Hx Sleep Apnea Yes 09/19/25 14:38 CPAP No 09/19/25 14:38 BIPAP No 09/19/25 14:38 Do you snore loudly (louder than talking or can be heard Do you often feel tired/ fatigued/ sleepy during daytime? Has anyone observed you stop breathing during sleep? STOP Results Positive 09/19/25 14:38 QUESTION #5 FULL TEXT : Do you snore loudly (louder than talking or can be heard through closed doors)? Tobacco Use History Tobacco Use History - instrument processing tech: Tobacco Use History - instrument processing tech Tobacco Use Smoking Status Never smoker 09/19/25 14:38 Hx Tobacco Use No 09/19/25 14:38 Years Smoking Packs Smoked per Day Smoking Cessation Date was within the last 15 years Hx Smoking Cessation Date Hx Smoking Cessation Counseling Hematologic Medial History Hematologic Hx - instrument processing tech: Hematologic Medical Hx - plaster foreman Hx of Blood Transfusion No 09/19/25 14:38 Hx of Transfusion in last 3 No 09/19/25 14:38 Months Date of Last Transfusion (if within last 3 months) Ever experience any problems No 09/19/25 14:38 with transfusion(s)? Specify any problems Hx of Preganancy in last 3 N/A 09/19/25 14:38 Months Nurse Filling Out Transfusion KBORNSTIN 09/19/25 14:38 & Questions: Date: 09/19/25 09/19/25 14:38 Time: 14:53 09/19/25 14:38 Patient unable to answer at this time (ie. confused, unrespo /Reproduction History /Reproductive History - instrument processing tech: /Reproductive Hx- instrument processing tech Hx Now No 09/23/25 20:06 Gestational Age (in weeks): EDC: Hx Hx Para Hx Section SAB No 09/23/25 20:06 Does the father of the baby or his family experience fever w Father of the baby Malignant Hypertension history comment Active Medications Active Medications: Current Medications Generic Name Dose Route Start Last Admin Trade Name Freq PRN Reason Stop Dose Admin Acetaminophen 650 mg 09/19/25 14:33 09/23/25 20:04 Acetaminophen 325 Mg Tablet PO 650 mg Q6H PRN PRN Administration Pain 1-10 Or Fever >100.7 Duloxetine HCl 120 mg 09/20/25 10:00 09/24/25 10:02 Duloxetine Hcl 60 Mg Capsule PO Not Given DAILY CALI Estradiol 1 mg 09/20/25 10:00 09/24/25 10:02 Estradiol 1 Mg Tablet PO Not Given DAILY CALI Gabapentin 300 mg 09/19/25 22:00 09/24/25 10:02 Gabapentin 300 Mg Capsule PO Not Given BID CALI Hydroxychloroquine Sulfate 200 mg 09/19/25 22:00 09/24/25 10:02 Hydroxychloroquine 200 Mg Tablet PO Not Given BID CALI Sodium Chloride 250 mls @ 15 mls/hr 09/19/25 14:39 09/23/25 22:40 IV Infused .[id number] PRN Infusion Saline Flush Sodium Chloride 250 mls @ 15 mls/hr 09/19/25 14:39 IV .[id number] PRN Additional IVPB Infusion Cefepime HCl 2 gm/ Sodium 100 mls @ 200 mls/hr 09/22/25 14:00 09/24/25 05:53 Chloride IV Infused Q8 CALI Infusion Clindamycin Phosphate 600 mg in 50 mls @ 100 mls/hr 09/22/25 14:00 09/24/25 06:51 Cleocin IV Infused Q8 CALI Infusion Lactated Ringer's 1,000 mls @ 15 mls/hr 09/24/25 12:30 09/24/25 12:40 IV 15 mls/hr .Q48H CALI Administration L-Arginine/L-Glutamine/Calcium HMB 1 packet 09/19/25 17:00 09/24/25 06:44 Yosvany (Unflavored) Packet PO Not Given BIDCM CALI Lorazepam 1 mg 09/21/25 10:25 09/24/25 08:06 Lorazepam 1 Mg Tablet PO 1 mg TID PRN Administration ANXIETY Metronidazole 500 mg 09/22/25 14:00 09/24/25 05:23 Metronidazole 500 Mg Tablet PO 500 mg TID CALI Administration Ondansetron HCl 4 mg 09/19/25 14:33 09/22/25 21:36 Ondansetron 4 Mg/2 Ml Vial IV 4 mg Q8H PRN PRN Administration NAUSEA/VOMITING Oxycodone HCl 2.5 - 5 mg 09/19/25 14:33 09/22/25 21:53 Oxycodone 5 Mg Tablet PO 5 mg Q4H PRN PRN Administration Pain Score 4-10 Polyethylene Glycol 17 gm 09/22/25 07:55 Polyethylene Glycol 3350 17 Gm Packet PO BID PRN constipation Senna/Docusate Sodium 2 tablet 09/22/25 10:00 09/24/25 10:02 Senna/Docusate Sodium 1 Tablet PO Not Given BID CALI Sodium Chloride 10 - 40 ml 09/19/25 14:39 09/24/25 05:23 0.9% Saline Lock 10 Ml Syringe IV 10 ml UD PRN Administration SALINE FLUSH Zolpidem Tartrate 10 mg 09/19/25 14:49 09/23/25 21:15 Zolpidem Tartrate 5 Mg Tablet PO 10 mg QHS PRN Administration INSOMNIA PFSH Medical History Other hereditary and idiopathic neuropathies Osteomyelitis of foot, right, acute Sleep apnea Anxiety Depression Rheumatoid arthritis Migraines Amputation of toe of left foot Wears contact lenses Wears glasses Connective tissue disease Walker as ambulation aid Ambulates with cane Arthritis History of IBS Heartburn Non-smoker CPAP (continuous positive airway pressure) dependence Fibromyalgia Sjogren syndrome with dental involvement Sjogren syndrome with keratoconjunctivitis Sjogren syndrome with peripheral nervous system involvement Lupus Home Medications ?Medication ?Instructions ?Recorded ?Last Taken ?Type cyclobenzaprine 10 mg tablet 10 mg PO TID PRN MUSCLE SPASMS 04/15/20 09/18/25 History duloxetine 60 mg capsule,delayed 120 mg PO DAILY mood 04/15/20 09/18/25 History release estradiol 1 mg tablet 1 mg PO DAILY .`menopause 04/15/20 09/18/25 History gabapentin 300 mg capsule 300 mg PO BID `pain 04/15/20 09/18/25 History hydroxychloroquine 200 mg tablet 200 mg PO BID `ra 04/15/20 09/18/25 History lorazepam 1 mg tablet 1 mg PO DAILY PRN Anxiety 04/15/20 09/19/25 History zolpidem 10 mg tablet 10 mg PO QHS `sleep 04/15/20 09/18/25 History hydroxyzine HCl 25 mg tablet 12.5 - 50 mg PO TID PRN PRN anxiety 02/21/25 03/03/25 History Allergy/AdvReac Type Severity Reaction Status Date / Time Gadolinium-MRI Contrast Allergy Intermediate Hives Verified 09/24/25 12:33 Medium (CONTRAST) Iodinated Contrast Media (CT) Allergy Rash Verified 09/24/25 12:33 morphine Allergy Hives Verified 09/24/25 12:33 sertraline (From Zoloft) Allergy Swelling Verified 09/24/25 12:33 vancomycin AdvReac Other Verified 09/24/25 12:33 Family History Father Pseudocholinesterase deficiency Prostate cancer Mother CAD (coronary artery disease) Heart disease Hypertension Breast cancer Lupus Surgical History H/O wisdom tooth extraction H/O tubal ligation History of hysterectomy Hx of cholecystectomy Hx of Achilles tendon repair Social History household members: spouse Smoking Status: Never smoker alcohol intake: never substance use type: does not use Review of Systems (Anesthesia) ROS Narrative System reviewed and no additional complaints, except as documented.
--- NOTE | 2025-09-24 13:30 | AMP_PTH ---
PATIENT: CHAPO PEREZ LOC: MS3 U#:[id number] AGE/SX: 60/F ROOM: [facility] [place]: Dr. Caleb Lo DO : 1965 BED: 1 DIS: 09/27/2025 SPEC #: [id number] RECD: 09/24/25 18:08 STATUS: MARLA REQ #: [id number] SILVER: 09/24/25 13:[address]: Chace Grace DEPT: SURGICAL PATHOLOGY RECD BY: Hubert Wood ENTERED: 09/25/25 11:11 SP TYPE: Amputation OTHR DR: DO Dr. Chace Jeffers DO Dr. Jeffrey Wunning, SAHILM MD Dr. Fara Parks MD Dr. Robert Leininger, MD Rachel Edgar, CAKE DECORATOR-C Tissues: A - Leg, NOS Procedures: Surgery Specimen Level V HEADER OPERATION: Amputation, below knee PRE-OP DIAGNOSIS: Charcot joint of right foot, non-pressure chronic ulcer of other part of right foot with necrosis of muscle TISSUE SUBMITTED: A- Right lower extremity (gross examination) MICROSCOPIC DIAGNOSIS A. Right leg and foot, below knee amputation: - Exposed portion of tibia and fractured fibula, cutaneous scars, plantar ulcer x2 (gross examination only). - Sutured defect of medial and dorsal foot (2). MICROSCOPIC DESCRIPTION Slides are reviewed. GROSS DESCRIPTION A. Received fresh labeled with patient's name and date of . Designated as right lower extremity (gross examination) is a below the knee amputation comprised of a 23.6 cm length by 7.0 cm diameter lower leg with attached. 21.6 x 10.6 x 7.6 cm foot terminating in 5 digits, 3 of which are anteriorly surfaced by a nail; digits #2/#3 appear to be partial, terminating in stumps. There is a moderate amount of exposed hernández-yellow to red soft tissue including a 4.1 x 3.2 cm exposed portion of tibia and 3.5 x 1.1 cm exposed portion of fractured fibula. The skin is hernández with a few circular scars on the anterior aspect of the lower leg. There is a 5.8 x 0.2 cm linear scar spanning from the mid aspect of the first digit to the dorsal aspect of the foot. There are 2 sutured defects, located on the medial aspect of the foot and the dorsal aspect of the foot. There are 2 full-thickness ulcerative lesions on the plantar aspect, 2.2 x 1.5 cm and 2.9 x 1.7 cm. The skin on the plantar aspect overlying the heel is erythematous with possible fissures. No sections are submitted. The specimen is for gross examination only. Sections pertinent of structures including the skin and soft tissue margins, vascular margins, plantar ulcerations and bone marrow are collected and stored in formalin pending sign out. NATHALY 09/26/2025 CPT:90513
[2025-09-24] MEDS: Midazolam 2 MG/2 ML Syringe IV (14:13)
[2025-09-24] MEDS: Lidocaine 1% (5 ml sdv) 5 ML Vial IV (14:18)
[2025-09-24] MEDS: Lactated Ringers 2,000 ML 2000 ML IV (15:02)
[2025-09-24] MEDS: fentaNYL 100 MCG/2 ML Ampul 200 MCG IV (15:17)
--- NOTE | 2025-09-24 17:21 | PCM.POST.ANE ---
Anesthesia: Postop Eval I Current Vital Signs Temperature: 97.8 F Pulse Rate: 99 Blood Pressure: 121/77 Respiratory Rate: 20 Pulse Ox: 96 Oxygen Delivery Method: Room Air Assessment Airway patent: Yes Spontaneous unlabored respirations: Yes Mental status: Awake and Calm nausea: No Vomiting: No Anesthesia Complication: No Fluid Hydration Crystalloid volume administer (ml): 1,800 Total IV fluid infused: 1,800 Progress Note Anesthesia document: Postop Eval 1 completed: Yes
--- NOTE | 2025-09-24 18:38 | OP.PCM_ITS ---
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: Yes Utility Accounts Director: Tamika Aburto Tasks completed by ortho assistant: Opening, Closing, Opening & closing, Hemostasis: Tie and Retracting Type of Anesthesia: General RN Documented Start/Stop Times: Operation Date: 09/24/25 13:30 Case Time Into Pre-Op 09/24/25 12:33 Out of Pre-Op 09/24/25 13:49 Anesthesia Start 09/24/25 14:13 Into Room 09/24/25 14:13 Procedure Start 09/24/25 14:48 Procedure End 09/24/25 17:10 Anesthesia End 09/24/25 17:18 Out of Room 09/24/25 17:18 Into Recovery 09/24/25 17:20 Procedure Start Time: 14:50 Procedure Stop Time: 17:10 Select all DRAINS/GRAFTS/IMPLANTS that apply: None Estimated Blood Loss: 250 Specimen collected: Yes Description of specimen(s) removed: Right foot Description of surgery: HPI: Patient is a 60-year-old female who has had longstanding neuropathy and has been developing Charcot foot on the right with recurrent wounds that she has been infected with for several years. She most recently had a deep space plantar surface abscess. Given the prognosis for her foot function and the increasing frequency of wounds and her limited mobility due to the joint pathology she has elected for right below the knee amputation. Given her relatively good health and young age a targeted muscle reinnervation by Dr. Deleon will be performed in conjunction with the amputation to help minimize long-term pain and neuroma risk. He will dictate the nerve procedure separately. Description of procedure: Upon obtaining informed consent and verification correct patient procedure site the patient was taken to the operating room where she was placed under general anesthesia. She was then positioned prepped and draped in usual sterile fashion and timeout was performed. Skin was marked with posterior flap configuration and incision made with a 10 blade. Bovie was used to dissect down through the subcutaneous tissue to the level of the fascia. The fascia on the anterior aspect of the lower leg was incised exposing the anterior compartment and the medial aspect of the posterior superficial compartment. Likewise Bovie was used to dissect the attachments to the anterior aspect of the tibia. Incisions were then extended along the medial lateral aspect of the calf and Bovie used to dissect down and divide the fascia. Musculature of the an terior and lateral compartment were then divided with Bovie and dissection carried down to the anterior tibial neurovascular bundle. Next musculature of the deep posterior compartment was divided preserving the gastrocnemius muscle and the posterior tibial and peroneal neurovascular bundles exposed. Soft tissue on the posterior aspect of the tibia was then dissected free with a periosteal elevator cephalad to the point of intended bone transection. Soft tissue attachments to the fibula were likewise dissected with combination of Bovie and periosteal elevator. The anterior tibial artery and posterior tibial artery neurovascular nerves were then ligated with silk ties and divided and the tibia transected with reciprocating saw with and anterior bevel. Next the fibula was divided with bone cutter 2 cm shorter than the tibia transection length. At this point we able to visualize the peroneal artery neurovascular bundle which was then ligated and divided. A dissection knife was then used to divide the remaining soft tissue attachments and fashion the posterior flap. The specimen was then handed off the table and bleeding muscle perforators controlled with clamps. At this point Dr. Deleon performed the targeted muscle reinnervation which she will dictate independently. Upon completion of this all of the agriculture technician branches were controlled with clips and suture-ligated until hemostasis was observed. The wound was then irrigated and closed with 0 PDS, 2- 0 PDS, 3-0 Monocryl, 3-0 Ethilon. Dry sterile dressing and Kiran wrap were then applied followed by a knee immobilizer. The patient was then taken to the recovery room with anticipated return to the surgical floor. Surgical Findings: See above Complications Complications: No
--- NOTE | 2025-09-24 22:19 | POSTOPAN2_ITS ---
Anesthesia Postop Eval I Sum Postop Eval Completion status Anesthesia document: Postop Eval 1 completed: Yes Anesthesia Postop Eval I Summary Anesthesia Postop Eval I Summary: Anesthesia Postop Eval I: Assessment Summary Airway patent Yes 09/24/25 17:22 DINING CAR [email or web address] Spontaneous unlabored Yes 09/24/25 17:22 DINING CAR [email or web address] respirations Mental status Awake,Calm 09/24/25 17:22 DINING CAR [email or web address] nausea No 09/24/25 17:22 DINING CAR [email or web address] Vomiting No 09/24/25 17:22 DINING CAR [email or web address] Anesthesia Postop Eval I: Fluid Summary Crystalloid volume administer 1,800 09/24/25 17:22 DINING CAR [email or web address] (ml) Colloids volume administered ( ml) Blood Product volume administered (ml) Total IV fluid infused 1,800 09/24/25 17:22 DINING CAR [email or web address] Anesthesia Postop Eval I: Summary Notes Anesthesia Complication No 09/24/25 17:22 DINING CAR [email or web address] Anesthesia Complication Comment: Post-operative progress note Anesthesia: Postop Eval II Evaluation Mental status: Awake and Calm Pain Level: 4 nausea: No Vomiting: No Progress Note Post-operative progress note: Patient required Dilaudid and fentanyl for pain control in PACU. Complications Anesthesia Complication: No
--- NOTE | 2025-09-24 22:19 | PCM.POSTANE2 ---
Anesthesia Postop Eval I Sum Postop Eval Completion status Anesthesia document: Postop Eval 1 completed: Yes Anesthesia Postop Eval I Summary Anesthesia Postop Eval I Summary: Anesthesia Postop Eval I: Assessment Summary Airway patent Yes 09/24/25 17:22 [email or web address] Spontaneous unlabored Yes 09/24/25 17:22 [email or web address] respirations Mental status Awake,Calm 09/24/25 17:22 [email or web address] nausea No 09/24/25 17:22 [email or web address] Vomiting No 09/24/25 17:22 [email or web address] Anesthesia Postop Eval I: Fluid Summary Crystalloid volume administer 1,800 09/24/25 17:22 [email or web address] (ml) Colloids volume administered ( ml) Blood Product volume administered (ml) Total IV fluid infused 1,800 09/24/25 17:22 [email or web address] Anesthesia Postop Eval I: Summary Notes Anesthesia Complication No 09/24/25 17:22 [email or web address] Anesthesia Complication Comment: Post-operative progress note Anesthesia: Postop Eval II Evaluation Mental status: Awake and Calm Pain Level: 4 nausea: No Vomiting: No Progress Note Post-operative progress note: Patient required Dilaudid and fentanyl for pain control in PACU. Complications Anesthesia Complication: No
--- NOTE | 2025-09-24 23:22 | ANES.CONFIRM ---
Anesthesia: Confirm Documents Multiple Procedures on Account (2) Confirmed Documents: Yes
[2025-09-25 00:28] VITALS: BP 120/71; PULSE 89; RESP 18; TEMP 36.6; O2SAT 96
[2025-09-25 04:28] VITALS: BP 105/62; PULSE 89; RESP 16; TEMP 36.6; O2SAT 94
[2025-09-25 05:09] LABS: Hematocrit 30.0 % (37-47); Hemoglobin 9.9 g/dL (12.0-15.0); Immature Granulocytes Count 0.060 X10^3/uL (0.0-0.0); Mean Corp Hgb Conc 33.0 g/dL (32-36); Mean Corpuscular Volume 83.3 fL (81-99); Mean Platelet Vol. 8.8 fl (6.2-12.0); NRBC Flagged by Analyzer 0 % (0-5); Platelet Count 353 K/mm3 (150-450); RBC Distribution Width CV 12.5 % (11.6-14.6); RBC Distribution Width SD 38.5 fl (35.1-43.9); Red Blood Count 3.60 M/mm3 (4.2-5.4); White Blood Count 14.5 K/mm3 (4.4-11.0)
[2025-09-25] MEDS: Cefepime HCl 2 GM in 0.9% Normal Saline (100mL MB+) 100 ML IV ×3 (05:10→21:11)
[2025-09-25 05:43] LABS: Anion Gap 11 (5-15); BUN 12 mg/dL (4-19); BUN/Creat Ratio 14.0 RATIO (10-20); Calcium,Total 8.7 mg/dL (7.6-11.0); Carbon Dioxide 25.7 mmol/L (21.0-32.0); Chloride 102 mmol/L (98-108); Estimated Creatinine Clearance 95.61 ml/min (50-250); Glucose 130 mg/dL (70-99); Potassium 3.9 mmol/L (3.3-5.1)
[2025-09-25] MEDS: Clindamycin 600 MG/50 ML BAG 100 MG IV (05:51)
--- NOTE | 2025-09-25 06:47 | PCM.PN.SRG ---
Subjective Subjective I saw Mrs. Boles at bedside this morning. She was resting in bed. She relates pain at the incision site, mostly cramping in her calf muscle. She lifts well from her hip to readjust the pillow her leg is resting on. She denies any other complaints, reports she slept well last night. She tolerated liquid diet last night. Objective Data Objective Data Vital Signs: Vital Signs Temp Pulse Resp BP Pulse Ox O2 Del Method O2 Flow Rate 97.9 F 89 16 105/62 94 Room Air 2 09/25/25 04:28 09/25/25 04:28 09/25/25 04:28 09/25/25 04:28 09/25/25 04:28 09/25/25 04:28 09/25/25 00:28 Oxygen Flow Rate (L/min) 2 Oxygen Delivery Method Room Air Weight: 251 lb 12.286 oz Body Mass Index (BMI) 38.2 Intake & Output: Intake and Output for Last 24 Hours 09/23/25 09/24/25 09/25/25 23:59 23:59 23:59 Intake Total 1700 / 1700 3900 / 3900 100 / 100 Output Total 0 / 0 2350 / 2950 600 / 600 Balance 1700 / 1700 1550 / 950 -500 / -500 Lab / Micro Data 09/25/25 04:23 09/25/25 04:23 Labs: Laboratory Results - last 24 hr 09/24/25 05:43: Sodium 142, Potassium 3.5, Chloride 104, Carbon Dioxide 25.5, Anion Gap 12, BUN 16, Creatinine 1.04, Estim Creat Clear Calc 76.30, Est GFR (MDRD) Non-Af 62, BUN/Creatinine Ratio 15.2, Glucose 94, Calcium 8.9 09/25/25 04:23: WBC 14.5 H, RBC 3.60 L, Hgb 9.9 L, Hct 30.0 L, MCV 83.3, MCH 27.5, MCHC 33.0 D, RDW Std Deviation 38.5, RDW Coeff of Jennifer 12.5, Plt Count 353, MPV 8.8, Immature Gran % (Auto) 0.400, Neut % (Auto) 82.6 H, Lymph % (Auto) 11.2 L, [place] % (Auto) 5.5, Eos % (Auto) 0.1, Baso % (Auto) 0.2, Absolute Neuts (auto) 12.0 H, Absolute Lymphs (auto) 1.62, Nucleated RBC % 0, Sodium 138, Potassium 3.9, Chloride 102, Carbon Dioxide 25.7, Anion Gap 11, BUN 12, Creatinine 0.83, Estim Creat Clear Calc 95.61, Est GFR (MDRD) Non-Af 81, BUN/Creatinine Ratio 14.0, Glucose 130 H, Calcium 8.7 Micro: Microbiology 09/19/25 12:30 Wound - Right Foot Gram Stain - Final 09/19/25 12:30 Wound - Right Foot Wound Culture - Final Enterobacter cloacae complex Streptococcus mitis/ oralis Staphylococcus aureus 09/19/25 12:30 Wound - Right Foot Anaerobic Culture - Final No anaerobic bacteria isolated. 09/21/25 08:21 Bone - Other Gram Stain - Final 09/21/25 08:21 Bone - Other Wound Culture - Final No growth aerobically. 09/21/25 08:21 Bone - Other Anaerobic Culture - Preliminary No growth in 48 hours. 09/21/25 08:17 Bone - Toe Gram Stain - Final 09/21/25 08:17 Bone - Toe Wound Culture - Final No growth aerobically. 09/21/25 08:17 Bone - Toe Anaerobic Culture - Preliminary No growth in 48 hours. 09/19/25 15:40 Wound - Right Foot Gram Stain - Final 09/19/25 15:40 Wound - Right Foot Wound Culture - Final Staphylococcus aureus Gram positive anthony Physical Exam Const alert, oriented x3 and no apparent distress General Appearance: cooperative and comfortable HEENT normocephalic, head/scalp atraumatic, hearing grossly normal bilaterally, external ears normal and external nose normal Eyes General Eye: normal appearance of both eyes Neck General: normal visual inspection and trachea midline Resp normal respiratory effort, normal air movement and no retractions Effort and Inspection: able to speak in complete sentences; Negative for labored, grunting, stridor or audible wheezes Cardio regular rate Extremity Extremity Narrative: R BKA with postoperative dressings in place, C/D/I. No bleed through. Prevena vac with no output in the canister. Knee immobilizer in place. Neuro oriented x3, moves all extremities and no focal motor deficits Speech: speech normal Psych mental status grossly normal Appearance: grossly normal Attitude: calm and engaged Activity / Motor Behavior: appropriate eye contact Speech: normal speech Assessment & Plan Assessment/Plan (1) Amputation of right lower extremity below knee: PLAN: Plan She is POD#1 from R BKA. Surgery site satisfactory in appearance with dressings C/D/I. Plan to leave postoperative dressings in place today and I will take them down tomorrow. The knee immobilizer should be in place at all times. Hgb overall stable, mild decrease to 9.9 this morning from 10.6 preop (her baseline is 10-11). WBC slightly elevated, likely reactive, will continue to monitor. She continues antibiotics per ID. Director [employer] will be here tomorrow to place stump protector, paper order for this is in patient's chart. Will add flexeril 5mg TID PRN for her muscle cramps/spasms. Increased Tylenol to 1000mg q8H. She continues to have oxycodone and hydromorphone available PRN. Plan for PT/OT initial eval if patient is up for it today pending pain management, definitely will want evaluation tomorrow to assist with disposition recommendations. Charges/Coding Procedures Integumentary 111xxx-113xx: 00615 Global Visit
[2025-09-25 08:00] VITALS: BP 114/75; PULSE 86; RESP 18; TEMP 36.7; O2SAT 98
[2025-09-25] MEDS: Juven (unflavored) Packet 1 PACKET PO ×2 (08:41→18:05)
--- NOTE | 2025-09-25 09:23 | PCM.PN.SRG ---
Subjective Subjective Patient seen this morning with and nurse at bedside. She states she was awake frequently due to pain at the stump and occasional phantom limb pain. Pain improves with pain regimen. She is hoping to discharge before [place]. Objective Data Objective Data Vital Signs: Vital Signs Temp Pulse Resp BP Pulse Ox O2 Del Method O2 Flow Rate 97.9 F 89 16 105/62 94 Room Air 2 09/25/25 04:28 09/25/25 04:28 09/25/25 04:28 09/25/25 04:28 09/25/25 04:28 09/25/25 04:28 09/25/25 00:28 Oxygen Flow Rate (L/min) 2 Oxygen Delivery Method Room Air Weight: 251 lb 12.286 oz Body Mass Index (BMI) 38.2 Intake & Output: Intake and Output for Last 24 Hours 09/23/25 09/24/25 09/25/25 23:59 23:59 23:59 Intake Total 1700 / 1700 3900 / 3900 150 / 150 Output Total 0 / 0 2350 / 2950 1100 / 1100 Balance 1700 / 1700 1550 / 950 -950 / -950 Lab / Micro Data Attestation: I reviewed the patient's lab results. 09/25/25 04:23 09/25/25 04:23 Labs: Laboratory Results - last 24 hr 09/25/25 04:23: WBC 14.5 H, RBC 3.60 L, Hgb 9.9 L, Hct 30.0 L, MCV 83.3, MCH 27.5, MCHC 33.0 D, RDW Std Deviation 38.5, RDW Coeff of Jennifer 12.5, Plt Count 353, MPV 8.8, Immature Gran % (Auto) 0.400, Neut % (Auto) 82.6 H, Lymph % (Auto) 11.2 L, [place] % (Auto) 5.5, Eos % (Auto) 0.1, Baso % (Auto) 0.2, Absolute Neuts (auto) 12.0 H, Absolute Lymphs (auto) 1.62, Nucleated RBC % 0, Sodium 138, Potassium 3.9, Chloride 102, Carbon Dioxide 25.7, Anion Gap 11, BUN 12, Creatinine 0.83, Estim Creat Clear Calc 95.61, Est GFR (MDRD) Non-Af 81, BUN/Creatinine Ratio 14.0, Glucose 130 H, Calcium 8.7 Micro: Microbiology 09/19/25 12:30 Wound - Right Foot Gram Stain - Final 09/19/25 12:30 Wound - Right Foot Wound Culture - Final Enterobacter cloacae complex Streptococcus mitis/ oralis Staphylococcus aureus 09/19/25 12:30 Wound - Right Foot Anaerobic Culture - Final No anaerobic bacteria isolated. 09/21/25 08:21 Bone - Other Gram Stain - Final 09/21/25 08:21 Bone - Other Wound Culture - Final No growth aerobically. 09/21/25 08:21 Bone - Other Anaerobic Culture - Preliminary No growth in 48 hours. 09/21/25 08:17 Bone - Toe Gram Stain - Final 09/21/25 08:17 Bone - Toe Wound Culture - Final No growth aerobically. 09/21/25 08:17 Bone - Toe Anaerobic Culture - Preliminary No growth in 48 hours. 09/19/25 15:40 Wound - Right Foot Gram Stain - Final 09/19/25 15:40 Wound - Right Foot Wound Culture - Final Staphylococcus aureus Gram positive anthony Physical Exam Narrative Afebrile/VSS Right lower extremity: Knee immobilizer in place Wound VAC with good seal. No palpable fluid collection at the stump however it's tender to palpation throughout No erythema, edema or induration. No left leg swelling Assessment & Plan Assessment/Plan (1) Amputation of right lower extremity below knee: PLAN: POD#1 Right below knee amputation with Dr. Grace and Dr. Deleon Pain control: per primary team Wound VAC: Plan to discharge with the wound VAC with plans to remove at her plastics follow up on Saturday 09/29. Activity: PT/OT. Knee immobilizer at all times. Loosen slightly if it's too tight. Suction Plate Carrier Cleaner to fit stump protector prior to DC. Nonweightbearing on stump for 3 months postop. SQ Lovenox and SCD's PSU will continue to follow Charges/Coding Procedures Integumentary 111xxx-113xx: 99800 Global Visit
--- NOTE | 2025-09-25 10:20 | PCM.PN.ID ---
Physical Exam Narrative Having pain s/p OR yesterday. Mild nausea. No fever, no diarrhea. Const alert and no apparent distress General Appearance: cooperative Resp normal air movement and clear to auscultation bilaterally Cardio regular rate and regular rhythm GI soft to palpation, non-tender and non-distended Skin Skin Narrative: RLE surg dressing in place ID ID: Route of nutrition/ use of supplements: [] Nutritional Intake: [] IV Site: [] Archibald Catheter: [] Assessment & Plan Assessment/Plan (1) Osteomyelitis of foot, right, acute: PLAN: MRI with gas-formation, taken to OR 09/21/[address] Underwood with I&D down to bone, including necrotic fascia. Wound cx with enterobacter, MSSA, GPR, and strep bacteria so far. Issues with vanc in past. Taken to OR by Dr. Deleon 09/24 for R BKA. Will continue cefepime/flagyl and stop clinda now. Plan on stopping other abx in next 1-2 days. Will follow (2) Charcot joint of right ankle:
--- NOTE | 2025-09-25 11:03 | PCM.PN.HOSP ---
Reason for Visit Chief Complaint: Foot wounds Subjective Subjective Saw patient bedside this morning, present. Patient was mildly fatigued appearing but otherwise sitting back comfortably in bed, conversing normally, in no acute distress. She did report mild right stump pain this morning, improved from yesterday evening. She generally feels fatigued and overwhelmed by the constant visits from providers and did ask to have staff limit coming into the room as able so she can get some sleep. No other new concerns this morning. Objective Data Objective Data Vital Signs: Vital Signs Temp Pulse Resp BP Pulse Ox O2 Del Method O2 Flow Rate 98.1 F 86 18 114/75 98 Room Air 2 09/25/25 08:00 09/25/25 08:00 09/25/25 08:00 09/25/25 08:00 09/25/25 08:00 09/25/25 08:00 09/25/25 00:28 Oxygen Flow Rate (L/min) 2 Oxygen Delivery Method Room Air Weight: 114.2 kg Body Mass Index (BMI) 38.2 Intake & Output: Intake and Output for Last 24 Hours 09/23/25 09/24/25 09/25/25 23:59 23:59 23:59 Intake Total 1700 / 1700 3900 / 3900 150 / 150 Output Total 0 / 0 2350 / 2950 1100 / 1100 Balance 1700 / 1700 1550 / 950 -950 / -950 Lab / Micro Data 09/25/25 04:23 09/25/25 04:23 Labs: Laboratory Results - last 24 hr 09/25/25 04:23: WBC 14.5 H, RBC 3.60 L, Hgb 9.9 L, Hct 30.0 L, MCV 83.3, MCH 27.5, MCHC 33.0 D, RDW Std Deviation 38.5, RDW Coeff of Jennifer 12.5, Plt Count 353, MPV 8.8, Immature Gran % (Auto) 0.400, Neut % (Auto) 82.6 H, Lymph % (Auto) 11.2 L, [place] % (Auto) 5.5, Eos % (Auto) 0.1, Baso % (Auto) 0.2, Absolute Neuts (auto) 12.0 H, Absolute Lymphs (auto) 1.62, Nucleated RBC % 0, Sodium 138, Potassium 3.9, Chloride 102, Carbon Dioxide 25.7, Anion Gap 11, BUN 12, Creatinine 0.83, Estim Creat Clear Calc 95.61, Est GFR (MDRD) Non-Af 81, BUN/Creatinine Ratio 14.0, Glucose 130 H, Calcium 8.7 Micro: Microbiology 09/19/25 12:30 Wound - Right Foot Gram Stain - Final 09/19/25 12:30 Wound - Right Foot Wound Culture - Final Enterobacter cloacae complex Streptococcus mitis/ oralis Staphylococcus aureus 09/19/25 12:30 Wound - Right Foot Anaerobic Culture - Final No anaerobic bacteria isolated. 09/21/25 08:21 Bone - Other Gram Stain - Final 09/21/25 08:21 Bone - Other Wound Culture - Final No growth aerobically. 09/21/25 08:21 Bone - Other Anaerobic Culture - Preliminary No growth in 48 hours. 09/21/25 08:17 Bone - Toe Gram Stain - Final 09/21/25 08:17 Bone - Toe Wound Culture - Final No growth aerobically. 09/21/25 08:17 Bone - Toe Anaerobic Culture - Preliminary No growth in 48 hours. 09/19/25 15:40 Wound - Right Foot Gram Stain - Final 09/19/25 15:40 Wound - Right Foot Wound Culture - Final Staphylococcus aureus Gram positive anthony Patient's Goals Of Care - F/U Goals Reviewed Goals of care reviewed with patient: NA-No significant change in clinical Status /major procedure scheduled Physical Exam Const alert, oriented x3 and no apparent distress Constitutional Narrative: Upper middle-aged female, class II obesity, mildly fatigued appearing, mildly anxious appearing, otherwise laying back in bed fairly comfortably, conversing normally, in no acute distress. General Appearance: cooperative and comfortable HEENT normocephalic, head/scalp atraumatic, hearing grossly normal bilaterally, nasal mucous membranes and turbinates normal and moist oral mucous membranes Eyes PERRL, EOMs intact bilaterally and conjunctivae normal Neck full ROM Chest inspection of chest normal Resp normal respiratory effort, normal air movement, no use of accessory muscles and clear to auscultation bilaterally Cardio regular rate, regular rhythm, no murmurs and peripheral pulses 2+ throughout GI normal to inspection, nondistended, normoactive bowel sounds, soft to palpation, non-tender and non-distended Back/Spine normal ROM Extremity Extremity Narrative: Right BKA with postoperative dressings in place clean and dry. Wound VAC with no output in the canister noted. Knee immobilizer in place. Psych mental status grossly normal Assessment & Plan Assessment/Plan (1) Osteomyelitis of foot, right, acute: (2) Amputation of right lower extremity below knee: PLAN: Plan Patient is a 60-year-old female who presented to [facility] ED on 09/19/2025 with right foot wounds. 1. Acute osteomyelitis of right foot ? Vascular surgery, plastic surgery, ID, podiatry and wound care following. PT/OT/case management following. MRI foot on admit showed osteomyelitis involving the distal aspect of the first metatarsal with surrounding soft tissue edema and ulceration. S/p debridement of ulceration down to and including the fascia/muscle layer of the right foot with Dr. Underwood on 09/21. Wound cultures with Enterobacter, MSSA, GPR and strep like bacteria thus far. Given her clinical picture, podiatry discussed with vascular surgery and recommendation was for right lower extremity amputation. S/p right BKA with Drs. Grace and Adrienne on 09/24. Tolerated procedure well, no intraoperative complications noted. Per ID, continue cefepime and Flagyl for now, clindamycin discontinued. Planning to stop other antibiotics in the next 1 to 2 days. Suspect patient will need SNF placement at discharge, appreciate therapy and case management assistance. 2. Anxiety/depression ? Patient with increased anxiety during hospitalization due to significant clinical issues above. Increased home Ativan to 1 mg 3 times daily as needed with improvement in symptoms. Otherwise continue home duloxetine and zolpidem at night. 3. History of lupus ? Continue home hydroxychloroquine. DVT prophylaxis: SCDs CODE STATUS: Full code, verified Expected disposition: [facility] versus SNF, TBD Total clinical time spent by myself addressing the patient's medical issues, reviewing all the data, and collaborating with patient's care team: 39 minutes. Charges/Coding Visit Charges Inpatient E&M: 89897 Subs Hosp L2
[2025-09-25] MEDS: HYDROmorphone 0.5 MG/0.5 ML SYRINGE IV ×2 (12:14→19:48)
--- NOTE | 2025-09-25 14:51 | PCM.OPRPT ---
Operative Report (Standard) Operative Information Date of Procedure: 09/24/25 Pre-Operative Diagnosis: Status post below-knee amputation right side Post-Operative Diagnosis: Same Surgery/Procedure Performed: 1) targeted muscle reinnervation (TMR), right tibial nerve to soleus branch of the tibial nerve flatbed owner operator: Yes Spray Pilot: Tonya Hamm Tasks completed by assistant warehouse manager: Closing and Retracting Type of Anesthesia: General/Supplemental (10 cc of quarter percent Marcaine ) RN Documented Start/Stop Times: Operation Date: 09/24/25 13:30 Case Time Into Pre-Op 09/24/25 12:33 Out of Pre-Op 09/24/25 13:49 Anesthesia Start 09/24/25 14:13 Into Room 09/24/25 14:13 Procedure Start 09/24/25 14:48 Procedure End 09/24/25 17:10 Anesthesia End 09/24/25 17:18 Out of Room 09/24/25 17:18 Into Recovery 09/24/25 17:20 Out of Recovery 09/24/25 20:04 Procedure Start Time: 16:00 Procedure Stop Time: 17:10 Select all DRAINS/GRAFTS/IMPLANTS that apply: None Estimated Blood Loss: Minimal Specimen collected: No Description of surgery: Indications: Patient is delightful 60-year-old female with a right Charcot foot undergoing right below-knee amputation with vascular surgery who has consulted us for targeted muscle reinnervation. She understands the risks, benefits, and alternatives of the procedure and elected to proceed. Procedure details: Plastic surgery was called in the room after the procedure was initiated. A timeout was performed by plastic surgery. Please see separate vascular surgery operative note for the below-knee amputation portion of the procedure. The tibial nerve was identified at the wound base, and dissection was carried out proximally to find a motor branch under 3.5 max loop magnification using a right angle and fine microsurgical dissecting instruments, which was identified traveling to the proximal lateral soleus muscle and confirmed as an adequate motor target using the a checkpoint nerve stimulator. The motor nerve to the soleus was then transected with a 15 blade scalpel. The motor nerve stump was then placed and centralized into the tibial nerve with a 7-0 Prolene mattress suture, and then the size mismatch between the tibial nerve and the motor nerve stump was corrected with interrupted epineurial sutures circumferentially with 7-0 Prolene. This was performed under loupe magnification. The below-knee amputation was then closed (please see separate operative note). There was no identifiable target for the peroneal nerve, so this was managed with traction neurectomy by the vascular surgery team. All other cutaneous nerves were managed with traction neurectomy by the vascular surgery team. Patient tolerated the procedure well from plastic surgery standpoint. Postoperative plan: PACU will follow for development of any issues with peripheral nerves including phantom limb pain or residual limb pain going forward. Surgical Findings: Able to find a target for the tibial nerve for TMR Complications Complications: No
[2025-09-25 16:00] VITALS: RESP 18
--- NOTE | 2025-09-25 16:25 | CASEMGMT ---
ENOCH ARMSTRONG NOTE: RN NATHANIEL to room after pt worked w/PT and OT today. Pt sitting up in chair. and son, Alec, @ bedside. Pt agreeable to them being present during conversation about discharge planning. Discussed discharge options and questions answered. Pt made aware of [facility]'s SNF benefits and further questions answered about HHC. Pt states she wishes to discharge home w/HHC. A list of HHC providers including quality and resource use data and consistent with the patient?s preferred geographic region, medical needs, and insurance network were provided from the [employer] Guide. Asked pt to choose top 3 preferences. ENOCH ARMSTRONG back to room later, after giving pt and family time to review. Pt states [facility] is her 1st choice. She has not selected 2 more, but states will review further. Call placed to [facility] and left re: referral. Discussed further discharge needs w/pt and family. They would like to get a manual W/C w/leg rests through her insurance. The DME she already has @ home was purchased [id number] & not billed through her insurance. They also may be interested in extended tub bench. Made aware insurance does not cover for this item and made aware of locations this can be purchased. states they can afford to pay for it [id number]. They are discussing doing renovations for a walk-in shower as well. They deny having further discharge needs or concerns at this time. Dylon JOHNSON RN, CM
[2025-09-25 16:28] VITALS: BP 102/63; PULSE 97; RESP 18; TEMP 36.8; O2SAT 98
--- NOTE | 2025-09-25 16:47 | CASEMGMT ---
Social Work- SW attempted to meet with pt to provide counseling and amputee support resources, as well as support, however, pt was receiving personal care. At a later attempt, pt was having nursing care. SW will attempt again tomorrow. DANAY Gilliland
[2025-09-25] MEDS: 0.9% Saline Lock 10 ML Syringe IV ×2 (19:48→21:12)
[2025-09-25 20:28] VITALS: BP 114/62; PULSE 94; RESP 16; TEMP 36.6; O2SAT 96
[2025-09-26 02:30] VITALS: BP 105/67; PULSE 80; RESP 16; TEMP 36.6; O2SAT 94
[2025-09-26] MEDS: Cefepime HCl 2 GM in 0.9% Normal Saline (100mL MB+) 100 ML IV ×3 (05:19→22:28)
[2025-09-26] MEDS: 0.9% Saline Lock 10 ML Syringe IV ×2 (05:19→14:35)
[2025-09-26 06:12] LABS: Hematocrit 31.5 % (37-47); Hemoglobin 10.0 g/dL (12.0-15.0); Immature Granulocytes Count 0.060 X10^3/uL (0.0-0.0); Mean Corp Hgb Conc 31.7 g/dL (32-36); Mean Corpuscular Volume 85.1 fL (81-99); Mean Platelet Vol. 8.7 fl (6.2-12.0); NRBC Flagged by Analyzer 0 % (0-5); Platelet Count 312 K/mm3 (150-450); RBC Distribution Width CV 13.0 % (11.6-14.6); RBC Distribution Width SD 39.9 fl (35.1-43.9); Red Blood Count 3.70 M/mm3 (4.2-5.4); White Blood Count 11.2 K/mm3 (4.4-11.0)
[2025-09-26 06:55] LABS: Anion Gap 6 (5-15); BUN 16 mg/dL (4-19); BUN/Creat Ratio 17.9 RATIO (10-20); Calcium,Total 8.7 mg/dL (7.6-11.0); Carbon Dioxide 28.5 mmol/L (21.0-32.0); Chloride 106 mmol/L (98-108); Estimated Creatinine Clearance 88.17 ml/min (50-250); Glucose 107 mg/dL (70-99); Potassium 3.7 mmol/L (3.3-5.1)
--- NOTE | 2025-09-26 07:08 | PCM.PN.SRG ---
Subjective Subjective I saw Mrs. Boles this morning, she was resting in bed. Her was at bedside. She reports some moderate pain in her amputation stump today, she was up quite a bit with therapy and nursing yesterday. No other complaints. Objective Data Objective Data Vital Signs: Vital Signs Temp Pulse Resp BP Pulse Ox O2 Del Method O2 Flow Rate 97.9 F 80 16 105/67 94 Room Air 2 09/26/25 02:30 09/26/25 02:30 09/26/25 02:30 09/26/25 02:30 09/26/25 02:30 09/26/25 02:30 09/25/25 00:28 Oxygen Flow Rate (L/min) 2 Oxygen Delivery Method Room Air Weight: 251 lb 12.286 oz Body Mass Index (BMI) 38.2 Intake & Output: Intake and Output for Last 24 Hours 09/24/25 09/25/25 09/26/25 23:59 23:59 23:59 Intake Total 3900 / 3900 1650 / 1650 100 / 100 Output Total 2350 / 2950 1100 / 1100 Balance 1550 / 950 550 / 550 100 / 100 Lab / Micro Data 09/26/25 05:56 09/26/25 05:56 Labs: Laboratory Results - last 24 hr 09/26/25 05:56: WBC 11.2 H, RBC 3.70 L, Hgb 10.0 L, Hct 31.5 L, MCV 85.1, MCH 27.0, MCHC 31.7 L, RDW Std Deviation 39.9, RDW Coeff of Jennifer 13.0, Plt Count 312, MPV 8.7, Immature Gran % (Auto) 0.500, Neut % (Auto) 53.1, Lymph % (Auto) 35.3, [place] % (Auto) 7.3, Eos % (Auto) 3.5, Baso % (Auto) 0.3, Absolute Neuts (auto) 5.9, Absolute Lymphs (auto) 3.94, Nucleated RBC % 0, Sodium 140, Potassium 3.7, Chloride 106, Carbon Dioxide 28.5, Anion Gap 6, BUN 16, Creatinine 0.90, Estim Creat Clear Calc 88.17, Est GFR (MDRD) Non-Af 73, BUN/Creatinine Ratio 17.9, Glucose 107 H, Calcium 8.7 Micro: Microbiology 09/19/25 12:30 Wound - Right Foot Gram Stain - Final 09/19/25 12:30 Wound - Right Foot Wound Culture - Final Enterobacter cloacae complex Streptococcus mitis/ oralis Staphylococcus aureus 09/19/25 12:30 Wound - Right Foot Anaerobic Culture - Final No anaerobic bacteria isolated. 09/21/25 08:21 Bone - Other Gram Stain - Final 09/21/25 08:21 Bone - Other Wound Culture - Final No growth aerobically. 09/21/25 08:21 Bone - Other Anaerobic Culture - Preliminary No growth in 48 hours. 09/21/25 08:17 Bone - Toe Gram Stain - Final 09/21/25 08:17 Bone - Toe Wound Culture - Final No growth aerobically. 09/21/25 08:17 Bone - Toe Anaerobic Culture - Preliminary No growth in 48 hours. 09/19/25 15:40 Wound - Right Foot Gram Stain - Final 09/19/25 15:40 Wound - Right Foot Wound Culture - Final Staphylococcus aureus Gram positive anthony Physical Exam Const alert, oriented x3 and no apparent distress General Appearance: cooperative and comfortable HEENT normocephalic, head/scalp atraumatic, hearing grossly normal bilaterally, external ears normal and external nose normal Eyes General Eye: normal appearance of both eyes Neck General: normal visual inspection and trachea midline Resp normal respiratory effort, normal air movement and no retractions Effort and Inspection: able to speak in complete sentences; Negative for labored, grunting, stridor or audible wheezes Cardio regular rate Extremity Extremity Narrative: R BKA with dressings C/D/I. No bleed through. Prevena vac with no output in the canister. Knee immobilizer in place. Neuro oriented x3, moves all extremities and no focal motor deficits Speech: speech normal Psych mental status grossly normal Appearance: grossly normal Attitude: calm and engaged Activity / Motor Behavior: appropriate eye contact Speech: normal speech Assessment & Plan Assessment/Plan (1) Amputation of right lower extremity below knee: PLAN: Plan Goal for today will be to transition completely away from IV pain control to oral pain regimen only to prepare for discharge. She has scheduled tylenol, oxycodone, flexeril, and gabapentin. Can increase gabapentin as needed for phantom pain/neuropathy, but not complaining of this much today. Emergency Medical Technician/Driver Prosthetics will be in today to fit/place stump protector, order remains in her chart. This stump protector can be removed as needed for PT/OT and hygiene, but should remain in place at all other times, including sleep. Prevena vac management as per plastic surgery. She is currently on Lovenox for DVT prophylaxis. Plan for Xarelto 20mg daily at d/c for ongoing DVT prophylaxis given surgery/limited mobility in conjunction with her lupus placing her at increased risk for DVT. Reviewed therapy/CM notes and present plan is for d/c home with [facility]. From a surgical standpoint, OK for discharge once stump protector is in place and pain is well managed on oral regimen. Charges/Coding Procedures Integumentary [id number]: 11906 Global Visit
[2025-09-26] MEDS: Juven (unflavored) Packet 1 PACKET PO ×2 (08:12→17:38)
[2025-09-26 08:21] VITALS: BP 114/73; PULSE 88; RESP 18; TEMP 36.6; O2SAT 100
--- NOTE | 2025-09-26 08:30 | WOUNDNOTE ---
In to check in on patient. Pt is POD#2 R ARIELAA. Pt states she us having quite a bit of discomfort this am. states mostly to the anterior surface of the stump. Nursing checking on pain medication at this time. pt is currently up in the chair with immobilizer in place. Good seal noted on Prevena VAC at 125mmHg. will monitor.
--- NOTE | 2025-09-26 10:55 | PN.HOSP_ITS ---
Reason for Visit Chief Complaint: Foot wounds Subjective Subjective Saw patient at bedside this morning, present. Patient sitting back in bedside chair fairly comfortably, conversing normally, in no acute distress. She does note continued pain near the amputation site, similar to yesterday. She does continue to feel fairly anxious. No other new concerns morning. Objective Data Objective Data Vital Signs: Vital Signs Temp Pulse Resp BP Pulse Ox O2 Del Method O2 Flow Rate 97.8 F 88 18 114/73 100 Room Air 2 09/26/25 08:21 09/26/25 08:21 09/26/25 08:21 09/26/25 08:21 09/26/25 08:21 09/26/25 08:22 09/25/25 00:28 Oxygen Flow Rate (L/min) 2 Oxygen Delivery Method Room Air Weight: 114.2 kg Body Mass Index (BMI) 38.2 Intake & Output: Intake and Output for Last 24 Hours 09/24/25 09/25/25 09/26/25 23:59 23:59 23:59 Intake Total 3900 / 3900 1650 / 1650 100 / 100 Output Total 2350 / 2950 1100 / 1100 Balance 1550 / 950 550 / 550 100 / 100 Lab / Micro Data 09/26/25 05:56 09/26/25 05:56 Labs: Laboratory Results - last 24 hr 09/26/25 05:56: WBC 11.2 H, RBC 3.70 L, Hgb 10.0 L, Hct 31.5 L, MCV 85.1, MCH 27.0, MCHC 31.7 L, RDW Std Deviation 39.9, RDW Coeff of Jennifer 13.0, Plt Count 312, MPV 8.7, Immature Gran % (Auto) 0.500, Neut % (Auto) 53.1, Lymph % (Auto) 35.3, [place] % (Auto) 7.3, Eos % (Auto) 3.5, Baso % (Auto) 0.3, Absolute Neuts (auto) 5.9, Absolute Lymphs (auto) 3.94, Nucleated RBC % 0, Sodium 140, Potassium 3.7, Chloride 106, Carbon Dioxide 28.5, Anion Gap 6, BUN 16, Creatinine 0.90, Estim Creat Clear Calc 88.17, Est GFR (MDRD) Non-Af 73, BUN/Creatinine Ratio 17.9, G lucose 107 H, Calcium 8.7 Micro: Microbiology 09/19/25 12:30 Wound - Right Foot Gram Stain - Final 09/19/25 12:30 Wound - Right Foot Wound Culture - Final Enterobacter cloacae complex Streptococcus mitis/ oralis Staphylococcus aureus 09/19/25 12:30 Wound - Right Foot Anaerobic Culture - Final No anaerobic bacteria isolated. 09/21/25 08:21 Bone - Other Gram Stain - Final 09/21/25 08:21 Bone - Other Wound Culture - Final No growth aerobically. 09/21/25 08:21 Bone - Other Anaerobic Culture - Preliminary No growth in 48 hours. 09/21/25 08:17 Bone - Toe Gram Stain - Final 09/21/25 08:17 Bone - Toe Wound Culture - Final No growth aerobically. 09/21/25 08:17 Bone - Toe Anaerobic Culture - Preliminary No growth in 48 hours. 09/19/25 15:40 Wound - Right Foot Gram Stain - Final 09/19/25 15:40 Wound - Right Foot Wound Culture - Final Staphylococcus aureus Gram positive anthony Patient's Goals Of Care - F/U Goals Reviewed Goals of care reviewed with patient: NA-No significant change in clinical Status /major procedure scheduled Physical Exam Const alert, oriented x3 and no apparent distress Constitutional Narrative: Upper middle-aged female, class II obesity, mildly fatigued appearing, mildly anxious appearing, otherwise sitting in bedside chair comfortably, conversing normally, in no acute distress. General Appearance: cooperative and comfortable HEENT normocephalic, head/scalp atraumatic, hearing grossly normal bilaterally, nasal mucous membranes and turbinates normal and moist oral mucous membranes Eyes PERRL, EOMs intact bilaterally and conjunctivae normal Neck full ROM Chest inspection of chest normal Resp normal respiratory effort, normal air movement, no use of accessory muscles and clear to auscultation bilaterally Cardio regular rate, regular rhythm, no murmurs and peripheral pulses 2+ throughout GI normal to inspection, nondistended, normoactive bowel sounds, soft to palpation, non-tender and non-distended Back/Spine normal ROM Extremity Extremity Narrative: Right BKA with postoperative dressings in place clean and dry. Wound VAC with no output in the canister noted. Knee immobilizer in place. Psych mental status grossly normal Mood & Affect: anxious Assessment & Plan Assessment/Plan (1) Osteomyelitis of foot, right, acute: (2) Amputation of right lower extremity below knee: PLAN: Plan Patient is a 60-year-old female who presented to [facility] ED on 09/19/2025 with right foot wounds. 1. Acute osteomyelitis of right foot ? Vascular surgery, plastic surgery, ID, podiatry and wound care following. PT/OT/case management following. MRI foot on admit showed osteomyelitis involving the distal aspect of the first metatarsal with surrounding soft tissue edema and ulceration. S/p debridement of ulceration down to and including the fascia/muscle layer of the right foot with Dr. Underwood on 09/21. Wound cultures with Enterobacter, MSSA, GPR and strep like bacteria. Given her clinical picture, podiatry discussed with vascular surgery and recommendation was for right lower extremity amputation. S/p right BKA with Drs. Grace and Adrienne on 09/24. Tolerated procedure well, no intraoperative complications noted. Per ID, continue cefepime and Flagyl for now, clindamycin discontinued. Planning to stop other antibiotics in the next 1 to 2 days. Planning for home with home health care on discharge. Per vascular surgery, will be okay for discharge home once stump protector is in place and pain is well managed on oral regimen. Transitioned off IV medications on 09/26. Current pain regimen of scheduled Tylenol, oxycodone, Flexeril and gabapentin. Planning for Xarelto 20 mg daily on discharge for ongoing DVT prophylaxis given surgery and limited mobility. 2. Anxiety/depression ? Patient with increased anxiety during hospitalization due to significant clinical issues above. Increased home Ativan to 1 mg 3 times daily as needed with improvement in symptoms. Otherwise continue home duloxetine and zolpidem at night. 3. History of lupus ? Continue home hydroxychloroquine. DVT prophylaxis: Lovenox CODE STATUS: Full code, verified Expected disposition: [facility], 1 to 2 days Total clinical time spent by myself addressing the patient's medical issues, reviewing all the data, and collaborating with patient's care team: 36 minutes. Charges/Coding Visit Charges Inpatient E&M: 52122 Subs Hosp L2
--- NOTE | 2025-09-26 11:50 | CASEMGMT ---
Social Work- SW attempted to meet with pt. Pt having physical therapy. SW to follow up later. DANAY Gilliland
--- NOTE | 2025-09-26 13:37 | CASEMGMT ---
Addendum entered by Tashi Mitchell 09/26/25 16:08: ENOCH ARMSTRONG spoke w/Kim @ [employer] re: billing for W/C, as pt and had questions. Per Kim, the W/C is a rent-to-own w/rental period being 10-13 months. She states until it is processed through insurance, exact amt per month is not known, but it can be anywhere from $0-$10/month. Pt will receive a statement in the mail once this is processed. Pt and made aware and voice appreciation for the info. The W/C has been delivered to pt's room. Original Note: ENOCH ARMSTRONG NOTE: Per Dr Lo, pt may be ready to discharge home over the weekend. Pt to discharge home on Xarelto. Rx has been sent to [facility] in [place]. Call placed to [facility] for sosa check. Cost for pt is $35. The pharmacy was not able to determine if pt has met her deductible yet or not. ENOCH ARMSTRONG to room. Pt and made aware of the above. Provided w/30-day free trial offer Xarelto card and instructed on use. Made aware this is a vooz-ru-k-lifetime use card. They state are pretty sure pt has met her deductible this year and plan wait to use the card on a refill in 2025 once deductible starts over. Therapy in to work w/pt. ENOCH ARMSTRONG measured for size of W/C w/therapy's assistance. Script obtained for W/C w/leg rests, 22 . Pt and deny having preference of DME co, made aware [employer] is affiliated w/[facility], and state to use [employer]. Script sent to [email or web address] via [employer] & requested for it to be delivered to pt's room today. [facility] has accepted pt w/SOC slated for Monday. Pt and made aware and voice appreciation. Pt and deny having further discharge needs or concerns at this time. Dylon JOHNSON RN, CM
--- NOTE | 2025-09-26 14:15 | PCM.HOSP.N ---
Hospitalist Note The patient has a mobility limitation that cannot be sufficiently resolved by using a cane or walker. Use of a w/c will improve the participation in ADLs on a regular basis, in the home.
[2025-09-26 14:45] VITALS: BP 98/52; PULSE 99; RESP 18; TEMP 36.4; O2SAT 95
--- NOTE | 2025-09-26 15:59 | CASEMGMT ---
Social Work- VINCENZO met with pt and pt to offer support. SW guided discussion regarding pain and mind-body connection, as well as counseling resources, and coping techniques. SW provided printables for review as well. Pt and pt expressed appreciation and will look over at their convenience. SW remains available to follow for questions. Pt and spouse had questions regarding prosthetic fitting and wheelchair. VINCENZO called Mayela at [facility] ([phone]) who reports that she is parking and will be up shortly. VINCENZO updated pt. VINCENZO collaborated with CAMI, who will call Tejinder and update pt. DANAY Gilliland
[2025-09-26 22:47] VITALS: BP 115/72; PULSE 94; RESP 16; TEMP 36.6; O2SAT 95
[2025-09-27 05:17] VITALS: BP 105/61; PULSE 85; RESP 18; TEMP 36.5; O2SAT 94
[2025-09-27] MEDS: Cefepime HCl 2 GM in 0.9% Normal Saline (100mL MB+) 100 ML IV ×2 (05:22→13:04)
[2025-09-27 06:01] LABS: Hematocrit 32.3 % (37-47); Hemoglobin 10.0 g/dL (12.0-15.0); Immature Granulocytes Count 0.070 X10^3/uL (0.0-0.0); Mean Corp Hgb Conc 31.0 g/dL (32-36); Mean Corpuscular Volume 87.3 fL (81-99); Mean Platelet Vol. 10.1 fl (6.2-12.0); NRBC Flagged by Analyzer 0 % (0-5); Platelet Count 245 K/mm3 (150-450); RBC Distribution Width CV 13.2 % (11.6-14.6); RBC Distribution Width SD 41.3 fl (35.1-43.9); Red Blood Count 3.70 M/mm3 (4.2-5.4); White Blood Count 12.2 K/mm3 (4.4-11.0)
[2025-09-27 06:51] LABS: Anion Gap 6 (5-15); BUN 18 mg/dL (4-19); BUN/Creat Ratio 20.8 RATIO (10-20); Calcium,Total 8.7 mg/dL (7.6-11.0); Carbon Dioxide 23.5 mmol/L (21.0-32.0); Chloride 104 mmol/L (98-108); Estimated Creatinine Clearance 92.27 ml/min (50-250); Glucose 91 mg/dL (70-99); Potassium 5.1 mmol/L (3.3-5.1)
[2025-09-27] MEDS: Juven (unflavored) Packet 1 PACKET PO (09:51)
[2025-09-27 10:00] VITALS: BP 113/71; PULSE 83; RESP 18; TEMP 36.6; O2SAT 95
--- NOTE | 2025-09-27 11:07 | CASEMGMT ---
Pt nurse states that pt reported he could not worm picker the xarelto until October 23. TC to [facility] pharmacy, spoke with pharmacist who states med is ready to be picked up, it was filled yesterday and there is a $35 copay. He states there are no issues with the med. Updated pt nurse and RN CM into pt room, pt and aware of this. Pt asks to notify the hospitalist that she would like dc'd today vs tomorrow. Updated hospitalist.
--- NOTE | 2025-09-27 11:13 | DS.PCM_ITS ---
Providers Date of Admission: 09/19/25 Date of Discharge: 09/27/25 Primary Care Physician: RHONDA Moncada Consultations 09/19/25 14:33 Consult: Onc/Wound/bobbin marker Routine Comment: Consult: Podiatry Routine Consulting Provider: Akin Underwood Reason for Consult: foot infection EMERGENT Consult: No MD Notified: Yes Date Notified: 09/19/25 Time Notified: 12:56 Method of Notification: Verbal 09/21/25 08:31 Consult: Infectious Disease Routine Consulting Provider: Flynn Reyes Reason for Consult: osteomyelitis. EMERGENT Consult: No MD Notified: Yes Date Notified: 09/22/25 Time Notified: 07:06 Method of Notification: Text 09/22/25 18:31 Consult: Vascular Surgery Routine Consulting Provider: Chace Grace Reason for Consult: Right BKA consult EMERGENT Consult: No MD Notified: Yes Date Notified: 09/22/25 Time Notified: 18:31 Method of Notification: Verbal Reason For Visit: FOOT INFECTION Diagnosis Discharge Diagnosis (1) Osteomyelitis of foot, right, acute: Status: Acute Code(s): M86.171 - Other acute osteomyelitis, right ankle and foot (2) Amputation of right lower extremity below knee: Status: Acute Code(s): S88.111A - Complete traumatic amputation at level between knee and ankle, right lower leg, initial encounter (3) Pain of amputation stump of right lower extremity: Status: Acute Code(s): T87.89 - Other complications of amputation stump; M79.604 - Pain in right leg Medications at Discharge Home Medications cyclobenzaprine 10 mg tablet 10 mg PO TID PRN MUSCLE SPASMS 04/15/20 duloxetine 60 mg capsule,delayed release 120 mg PO DAILY mood 04/15/20 estradiol 1 mg tablet 1 mg PO DAILY .`menopause 04/15/20 gabapentin 300 mg capsule 300 mg PO BID `pain 04/15/20 hydroxychloroquine 200 mg tablet 200 mg PO BID `ra 04/15/20 lorazepam 1 mg tablet 1 mg PO DAILY PRN Anxiety 04/15/20 zolpidem 10 mg tablet 10 mg PO QHS `sleep 04/15/20 hydroxyzine HCl 25 mg tablet 12.5 - 50 mg PO TID PRN PRN anxiety 02/21/25 rivaroxaban 20 mg tablet (Xarelto) 20 mg PO DAILY 30 days #30 tabs 09/26/25 acetaminophen 500 mg tablet 1,000 mg (2 x 500 mg) PO Q8 14 days #84 tabs 09/27/25 oxycodone 5 mg tablet 10 mg (2 x 5 mg) PO Q6H PRN PRN Pain Score 6-10 5 days #20 tabs 09/27/25 pantoprazole 40 mg tablet,delayed release 40 mg PO DAILY 30 days #30 tabs 09/27/25 sennosides 8.6 mg-docusate sodium 50 mg tablet (Stimulant Laxative Plus) 2 tab PO BID PRN constipation 14 days #0 tabs 09/27/25 Hospital Course Operations - (Right below the knee amputation) Procedures EKG and - (Right foot x-ray, right lower extremity CT and right lower extremity MRI) Summary of Care Provided Minutes Spent on Discharge: 36 Hospital Course: Patient is a 60-year-old female who presented to [facility] ED on 09/19/2025 with right foot wounds. Hospital course as noted below. Patient discharged home with home health care in stable condition on 09/27. 1. Acute osteomyelitis of right foot ? Vascular surgery, plastic surgery, ID, podiatry and wound care followed. PT/OT/case management followed. MRI foot on admit showed osteomyelitis involving the distal aspect of the first metatarsal with surrounding soft tissue edema and ulceration. S/p debridement of ulceration down to and including the fascia/muscle layer of the right foot with Dr. Underwood on 09/21. Wound cultures with Enterobacter, MSSA, GPR and strep like bacteria. Given her clinical picture, podiatry discussed with vascular surgery and recommendation was for right lower extremity amputation. S/p right BKA with Drs. Grace and Adrienne on 09/24. Tolerated procedure well, no intraoperative complications noted. Per ID, treated with antibiotics while inpatient but given adequate source control, no need for antibiotics on discharge. Transitioned off IV pain medications on 09/26. Stump protector in place and pain well-managed on oral regimen by day of discharge. Per vascular surgery, will be on Xarelto 20 mg daily on discharge for ongoing DVT prophylaxis given surgery and anticipated limited ability. Pain control with scheduled Tylenol for the next 2 weeks, home Flexeril and gabapentin; short course of oxycodone prescribed as well. Stable for discharge home with home health care on 09/27. 2. Anxiety/depression ? Patient with increased anxiety during hospitalization due to significant clinical issues above. Increased home Ativan to 1 mg 3 times daily as needed with improvement in symptoms. Okay to resume home Ativan 1 mg daily on discharge. Continue home duloxetine and zolpidem at night. 3. History of lupus ? Continue home hydroxychloroquine. Total clinical time spent by myself addressing the patient's medical issues, reviewing all the data, and collaborating with patient's care team: 36 minutes. Physical Exam Const alert, oriented x3 and no apparent distress Constitutional Narrative: Upper middle-aged female, class II obesity, energy improved from previous days, sitting in bedside chair comfortably, conversing normally, in no acute distress. General Appearance: cooperative and comfortable HEENT normocephalic, head/scalp atraumatic, hearing grossly normal bilaterally, nasal mucous membranes and turbinates normal and moist oral mucous membranes Eyes PERRL, EOMs intact bilaterally and conjunctivae normal Neck full ROM Chest inspection of chest normal Resp normal respiratory effort, normal air movement, no use of accessory muscles and clear to auscultation bilaterally Cardio regular rate, regular rhythm, no murmurs and peripheral pulses 2+ throughout GI normal to inspection, nondistended, normoactive bowel sounds, soft to palpation, non-tender and non-distended Back/Spine normal ROM Extremity Extremity Narrative: Right BKA with stump protector in place. Wound VAC in place as well with no output noted. Psych mental status grossly normal Weight / BMI Weight Weight: 114.2 kg Body Mass Index (BMI) 38.2 ABG / Lab / Microbiology Data 09/27/25 04:41 09/27/25 04:41 Laboratory: Laboratory Results - last 24 hr 09/23/25 19:20: Crossmatch See Detail 09/27/25 04:41: WBC 12.2 H, RBC 3.70 L, Hgb 10.0 L, Hct 32.3 L, MCV 87.3, MCH 27.0, MCHC 31.0 L, RDW Std Deviation 41.3, RDW Coeff of [place] 13.2, Plt Count 245, MPV 10.1, Immature Gran % (Auto) 0.600, Neut % (Auto) 54.8, Lymph % (Auto) 32.6, [place] % (Auto) 8.2, Eos % (Auto) 3.2, Baso % (Auto) 0.6, Absolute Neuts (auto) 6.7, Absolute Lymphs (auto) 3.99, Nucleated RBC % 0, Sodium 134, Potassium 5.1, Chloride 104, Carbon Dioxide 23.5, Anion Gap 6, BUN 18, Creatinine 0.86, Estim Creat Clear Calc 92.27, Est GFR (MDRD) Non-Af 78, BUN/Creatinine Ratio 20.8 H, Glucose 91, Calcium 8.7 Microbiology: Microbiology 09/21/25 08:21 Bone - Other Gram Stain - Final 09/21/25 08:21 Bone - Other Wound Culture - Final No growth aerobically. 09/21/25 08:21 Bone - Other Anaerobic Culture - Final No growth in 5 days. 09/21/25 08:17 Bone - Toe Gram Stain - Final 09/21/25 08:17 Bone - Toe Wound Culture - Final No growth aerobically. 09/21/25 08:17 Bone - Toe Anaerobic Culture - Final No growth in 5 days. 09/19/25 12:30 Wound - Right Foot Gram Stain - Final 09/19/25 12:30 Wound - Right Foot Wound Culture - Final Enterobacter cloacae complex Streptococcus mitis/ oralis Staphylococcus aureus 09/19/25 12:30 Wound - Right Foot Anaerobic Culture - Final No anaerobic bacteria isolated. 09/19/25 15:40 Wound - Right Foot Gram Stain - Final 09/19/25 15:40 Wound - Right Foot Wound Culture - Final Staphylococcus aureus Gram positive anthony D/C Instructions DC O2, CPAP, BIPAP Needs Home O2 Discharge instructions: No Patient's Goals Of Care - F/U Goals Reviewed Goals of care reviewed with patient: NA-No significant change in clinical Status /major procedure scheduled Meaningful Use Info Meaningful Use Meaningful Use Diagnoses (Choose all that apply): None applicable Discharge Plan Admission Admit Date/Time: 09/19/25 12:53 Primary Reason for Your Visit: Right foot wound Attending Provider: Caleb Lo Primary Care Provider: Elmira Brownlee Consulting Providers: Akin Underwood; Chace Treadwell; Flynn Reyes; Aileen Pérez; Chace Grace; Fara Beckett Instructions Additional Instructions / Restrictions: ? Take 2 extra strength Tylenol every 8 hours scheduled for the next 2 weeks for pain control. ? Take oxycodone sparingly as needed for postoperative pain. Can utilize senna as needed to prevent constipation. ? Take Xarelto once daily for clot prevention moving forward. Discharge Orders/Prescriptions Prescriptions: New Xarelto 20 mg tablet 20 mg PO DAILY 30 Days Qty: 30 2RF Rx Instructions: must administer with evening meal acetaminophen 500 mg Tablet 1,000 mg PO Q8 14 Days Qty: 84 0RF sennosides-docusate sodium [Stimulant Laxative Plus] 8.6-50 mg Tablet 2 tab PO BID PRN (Reason: constipation) 14 Days Qty: 0 0RF pantoprazole 40 mg Tablet,Delayed Release (Dr/Ec) 40 mg PO DAILY 30 Days Qty: 30 0RF oxycodone 5 mg Tablet 10 mg PO Q6H PRN PRN (Reason: Pain Score 6-10) 5 Days Qty: 20 0RF Continued cyclobenzaprine 10 MG tablet 10 mg PO TID PRN (Reason: MUSCLE SPASMS) estradiol 1 MG tablet 1 mg PO DAILY gabapentin 300 MG capsule 300 mg PO BID lorazepam 1 MG tablet 1 mg PO DAILY PRN (Reason: Anxiety) hydroxychloroquine 200 MG tablet 200 mg PO BID zolpidem 10 MG tablet 10 mg PO QHS duloxetine 60 MG capsule 120 mg PO DAILY hydroxyzine HCl 25 mg tablet 12.5 - 50 mg PO TID PRN PRN (Reason: anxiety) Referrals / Follow Up: Chace Grace MD [Med Staff - Active Staff, Vascular Surgery] Elmira Brownlee NP-C [Primary Care Provider, Family Practice] Disposition Disposition (needs filled in before D/C Order can be placed): Home Health Service Charges/Coding Visit Charges Inpatient E&M: 26514 Disch Hosp >30min
[2025-09-27] MEDS: 0.9% Saline Lock 10 ML Syringe IV (13:04)
--- NOTE | 2025-09-27 13:05 | PN.SURG_ITS ---
Subjective Subjective I saw Mrs. Boles this afternoon, she was resting in bed with her at bedside. Pain seems to be better controlled. She has the stump protector in place, she states it feels more comfortable to have it on. Prevena vac still maintaining good seal, no output. She is going home today, will have HHC in place and reports she has f/u Monday with plastic surgery to remove the Prevena dressing. Objective Data Objective Data Vital Signs: Vital Signs Temp Pulse Resp BP Pulse Ox O2 Del Method O2 Flow Rate 97.8 F 83 18 113/71 95 Room Air 2 09/27/25 10:00 09/27/25 10:00 09/27/25 10:00 09/27/25 10:00 09/27/25 10:00 09/27/25 10:19 09/25/25 00:28 Oxygen Flow Rate (L/min) 2 Oxygen Delivery Method Room Air Weight: 251 lb 12.286 oz Body Mass Index (BMI) 38.2 Intake & Output: Intake and Output for Last 24 Hours 09/25/25 09/26/25 09/27/25 23:59 23:59 23:59 Intake Total 1650 / 1650 300 / 300 1100 / 1100 Output Total 1100 / 1100 Balance 550 / 550 300 / 300 1100 / 1100 Lab / Micro Data 09/27/25 04:41 09/27/25 04:41 Labs: Laboratory Results - last 24 hr 09/23/25 19:20: Crossmatch See Detail 09/27/25 04:41: WBC 12.2 H, RBC 3.70 L, Hgb 10.0 L, Hct 32.3 L, MCV 87.3, MCH 27.0, MCHC 31.0 L, RDW Std Deviation 41.3, RDW Coeff of Jennifer 13.2, Plt Count 245, MPV 10.1, Immature Gran % (Auto) 0.600, Neut % (Auto) 54.8, Lymph % (Auto) 32.6, [place] % (Auto) 8.2, Eos % (Auto) 3.2, Baso % (Auto) 0.6, Absolute Neuts (auto) 6.7, Absolute Lymphs (auto) 3.99, Nucleated RBC % 0, Sodium 134, Potassium 5.1, Chloride 104, Carbon Dioxide 23.5, Anion Gap 6, BUN 18, Creatinine 0.86, Estim Creat Clear Calc 92.27, Est GFR (MDRD) Non-Af 78, BUN/Creatinine Ratio 20.8 H, Glucose 91, Calcium 8.7 Micro: Microbiology 09/21/25 08:21 Bone - Other Gram Stain - Final 09/21/25 08:21 Bone - Other Wound Culture - Final No growth aerobically. 09/21/25 08:21 Bone - Other Anaerobic Culture - Final No growth in 5 days. 09/21/25 08:17 Bone - Toe Gram Stain - Final 09/21/25 08:17 Bone - Toe Wound Culture - Final No growth aerobically. 09/21/25 08:17 Bone - Toe Anaerobic Culture - Final No growth in 5 days. 09/19/25 12:30 Wound - Right Foot Gram Stain - Final 09/19/25 12:30 Wound - Right Foot Wound Culture - Final Enterobacter cloacae complex Streptococcus mitis/ oralis Staphylococcus aureus 09/19/25 12:30 Wound - Right Foot Anaerobic Culture - Final No anaerobic bacteria isolated. 09/19/25 15:40 Wound - Right Foot Gram Stain - Final 09/19/25 15:40 Wound - Right Foot Wound Culture - Final Staphylococcus aureus Gram positive anthony Physical Exam Const alert, oriented x3 and no apparent distress General Appearance: cooperative and comfortable HEENT normocephalic, head/scalp atraumatic, hearing grossly normal bilaterally, external ears normal and external nose normal Eyes General Eye: normal appearance of both eyes Neck General: normal visual inspection and trachea midline Resp normal respiratory effort, normal air movement and no retractions Effort and Inspection: able to speak in complete sentences; Negative for labored, grunting, stridor or audible wheezes Cardio regular rate Extremity Extremity Narrative: R BKA with dressings C/D/I. No bleed through. Prevena vac with no output in the canister. Stump protector in place. Neuro oriented x3, moves all extremities and no focal motor deficits Speech: speech normal Psych mental status grossly normal Appearance: grossly normal Attitude: calm and engaged Activity / Motor Behavior: appropriate eye contact Speech: normal speech Assessment & Plan Assessment/Plan (1) Amputation of right lower extremity below knee: PLAN: Plan Pain is well controlled on current oral regimen. She is being discharged today to home with C and good family support in place. Prevena vac will remain in place until removed at plastic surgery appt Monday. She is instructed to have stump protector in place at all times, removing only as needed for hygeine and PT/OT. Recommend Xarelto 20mg daily at discharge for ongoing DVT prophylaxis given limited mobility. Plan for follow-up in outpatient office in ~2 weeks, our office will call to schedule. Charges/Coding Procedures Integumentary [id number]: [id number] Global Visit
--- NOTE | 2025-09-30 14:48 | CASEMGMT ---
RN CM NOTE: Physician documentation for necessity of W/C faxed to [facility] [place] at this time. Dylon SILVESTREN RN CM
== END 2025-09-27 13:54 | disposition home health service (06) | DRG 464 ==
LOC: ED 13:57 → MS3 14:03
PROVIDERS: Internal Medicine; Surgery Plastic and Reconstructive Surgery; Surgery Trauma Surgery; Emergency Provider Emergency Medicine; PCP Nurse Practitioner Family; Referring Provider Podiatrist; Visit Provider Hospitalist
PROC: 01S Peripheral Nervous System, Reposition (ICD-10-PCS; 2025-09-24 13:15)
DX: M86.171 Other acute osteomyelitis, right ankle and foot (principal); L03.115 Cellulitis of right lower limb; B95.2 Enterococcus as the cause of diseases classified elsewhere; M32.9 Systemic lupus erythematosus, unspecified; F32.A Depression, unspecified; E66.812 Obesity, class 2; L97.513 Non-pressure chronic ulcer of other part of right foot with necrosis of muscle; M14.671 Charcot's joint, right ankle and foot; F41.9 Anxiety disorder, unspecified; Z89.422 Acquired absence of other left toe(s); G57.93 Unspecified mononeuropathy of bilateral lower limbs; M21.6X1 Other acquired deformities of right foot; L97.512 Non-pressure chronic ulcer of other part of right foot with fat layer exposed; M86.671 Other chronic osteomyelitis, right ankle and foot; B95.61 Methicillin susceptible Staphylococcus aureus infection as the cause of diseases classified elsewhere; B95.4 Other streptococcus as the cause of diseases classified elsewhere; L03.031 Cellulitis of right toe; R22.0 Localized swelling, mass and lump, head; R23.2 Flushing; Z91.041 Radiographic dye allergy status; Z68.38 Body mass index [BMI] 38.0-38.9, adult; Z79.899 Other long term (current) drug therapy
CPT/HCPCS: 36415; 73630; 73700; 73720; 80048; 80202; 84443; 85025; 85652; 86140; 86850; 86900; 86901; 87015; 87070; 87075; 87077; 87102; 87116; 87176; 87186; 87205; 87206; 87640; 88304; 88307; 88311; 93005; 97162; 97166; 97530; 97535; 97802; 97803; 99284; A4648; A9575; J2020; J2185; A4216; J2405

== ENCOUNTER → 2025-10-08 | Outpatient (CLI) | payer MEDICARE, BC, SELFPAY ==
[2025-10-08 11:33] LABS: Hematocrit 32.3 % (37-47); Hemoglobin 10.7 g/dL (12.0-15.0); Immature Granulocytes Count 0.010 X10^3/uL (0.0-0.0); Mean Corp Hgb Conc 33.1 g/dL (32-36); Mean Corpuscular Volume 83.0 fL (81-99); Mean Platelet Vol. 8.9 fl (6.2-12.0); NRBC Flagged by Analyzer 0 % (0-5); Platelet Count 349 K/mm3 (150-450); RBC Distribution Width CV 13.9 % (11.6-14.6); RBC Distribution Width SD 41.2 fl (35.1-43.9); Red Blood Count 3.89 M/mm3 (4.2-5.4); White Blood Count 6.9 K/mm3 (4.4-11.0)
[2025-10-08 12:23] LABS: Anion Gap 9 (7-18); BUN 12 mg/dL (4-19); BUN/Creat Ratio 13.9 RATIO (10-20); Calcium,Total 9.4 mg/dL (7.6-11.0); Carbon Dioxide 26.7 mmol/L (20.0-29.0); Chloride 101 mmol/L (96-106); Glucose 114 mg/dL (70-99); Potassium 4.5 mmol/L (3.5-5.1)
== END | disposition home or self-care (01) ==
LOC: LAB 11:09
PROVIDERS: PCP Nurse Practitioner Family; Referring Provider Physician Assistant; Visit Provider Physician Assistant
DX: T87.89 Other complications of amputation stump (principal); X58.XXXA Exposure to other specified factors, initial encounter; M79.604 Pain in right leg
CPT/HCPCS: 36415; 80048; 85025